=== PATIENT | male | born 1990 | race Caucasian/White ===

== ENCOUNTER 2017-12-28 12:10 | Emergency (ER) | payer OTHER, SELFPAY ==
[2017-12-28 12:24] VITALS: BP 177/136; PULSE 105; RESP 22; TEMP 35.9; O2SAT 100; BMI 19.3
--- NOTE | 2017-12-28 12:26 | ED.NAVMDI ---
HPI - Nausea/Vomiting/Diarrhea <DESIRE Nava - Last Filed: 12/28/17 21:44> General Chief complaint: Abdominal Pain Stated complaint: throwing up cant stop Time Seen by Provider: 12/28/17 12:25 Source: patient Mode of arrival: ambulatory Limitations: no limitations History of Present Illness HPI Narrative: 27-year-old male with history of type 1 diabetes and hypertension that is nonsmoker here for complaint of nausea vomiting that started yesterday. He also reports having generalized abdominal discomfort. He denies any urinary symptoms. He denies any fevers. Last bowel movement was earlier today. He reports that he has had emesis with coffee-grounds appearance. He has a history of having gastric and esophageal ulcers. He is prescribed Protonix however he states he has not been taking his Protonix. He has a history of having hypertension although he was taken off of his blood pressure medications because he states that it dropped his blood pressure to low. His primary care provider is [place] he is in the area visiting for 1 week. He denies any bloody stool. Pain is limited to the abdominal area. He denies any shortness of breath, chest pain no headaches. He does report having a sore throat. Related Data Home Medications Medication Instructions Recorded Confirmed insulin glargine [Lantus U-100 25 u SQ Q DAY #30 01/03/17 12/30/17 Insulin] Celexa DAILY 12/30/17 Vistaril PO PRN 12/30/17 amitriptyline PO BEDTIME 12/30/17 insulin aspart U-100 [Novolog 1 unit SUBCUT AC 12/30/17 12/30/17 Flexpen U-100 Insulin] metoclopramide HCl [Reglan] 10 mg PO QID 12/30/17 12/30/17 oxycodone-acetaminophen [Percocet] 1 tab PO Q6H PRN 12/30/17 12/30/17 Previous Rx's Medication Instructions Recorded pantoprazole [Protonix] 40 mg PO BID #60 01/06/17 Allergies Allergy/AdvReac Type Severity Reaction Status Date / Time aspirin [ASPIRIN] Allergy Unknown MAKES ME Verified 12/29/17 17:27 GO DEAF hydrocodone [HYDROCODONE] AdvReac Intermediate VOMITING Verified 12/29/17 17:27 ibuprofen [IBUPROFEN] AdvReac Intermediate HURTS Verified 12/29/17 17:27 KIDNEYS Review of Systems <Edgar LeeaustingaleDESIRE - Last Filed: 12/28/17 21:44> Constitutional Denies chills, Denies fever(s), Denies lethargy and Denies weakness Eyes Denies change in vision, Denies eye discharge, Denies irritation and Denies loss of vision ENT Ears, Nose, Mouth, and Throat: Reports sore throat Cardiovascular Denies chest pain, Denies irregular heart rhythm, Denies lightheadedness, Denies palpitations, Denies dyspnea, Denies dyspnea on exertion and Denies orthopnea Respiratory Denies cough, Denies dyspnea, Denies dyspnea on exertion and Denies wheezing Gastrointestinal Gastrointestinal: Reports abdominal pain, Reports nausea and Reports vomiting Genitourinary Denies hematuria, Denies flank pain, Denies urinary incontinence and Denies urinary urgency Integumentary/Breasts Denies pruritus, Denies erythema, Denies rash and Denies wounds Neurologic Denies loss of vision and Denies weakness Endocrine Denies palpitations Hematologic/Lymphatic Denies easy bruising Allergic/Immunologic Denies wheezing Exam <Edgar LeeDESIRE perez - Last Filed: 12/28/17 21:44> Initial Vital Signs Initial Vital Signs: Vital Signs Temperature 96.7 F L 12/28/17 12:24 Pulse Rate 105 H 12/28/17 12:24 Respiratory Rate 22 12/28/17 12:24 Blood Pressure 177/136 H 12/28/17 12:24 Pulse Oximetry 100 12/28/17 12:24 Const General: cooperative and well developed Nutritional Appearance: well nourished Orientation: alert, awake, oriented x3 and not confused [facility] Mouth: oral mucosae normal and moist mucous membranes Throat: posterior oropharynx normal Eyes Conjunctivae: conjunctivae normal Sclera: sclerae normal Pupils: PERRL EOM: EOM intact bilaterally Chest Chest: normal inspection of the chest Resp Effort & Inspection: normal respiratory effort, able to speak in complete sentences, no respiratory distress and no use of accessory muscles Auscultation: clear to auscultation bilaterally, no rales, no rhonchi and no wheezes Cardio Rate: regular rate Rhythm: regular rhythm Heart Sounds: no click, no gallops, no murmurs and no rubs GI Inspection: non-distended Palpation: soft, no hepatosplenomegaly, No guarding, No pulsatile mass and tender (Generalized tenderness) Auscultation: normal bowel sounds General: No CVA tenderness Skin General: no rashes or lesions noted, No jaundice and No petechiae Neuro General: alert, oriented x3, gait normal and no focal motor deficits Speech: speech normal Extrem General: full ROM, no clubbing, cyanosis or edema, no pedal edema and no calf tenderness Psych Appearance: well kempt Mental Status: mental status grossly normal Attitude: cooperative Thought Content: normal and suicidality Judgment: judgment good <Candie Cruz MD - Last Filed: 01/04/18 00:02> Initial Vital Signs Initial Vital Signs: Vital Signs Temperature 96.7 F L 12/28/17 12:24 Pulse Rate 105 H 12/28/17 12:24 Respiratory Rate 22 12/28/17 12:24 Blood Pressure 177/136 H 12/28/17 12:24 Pulse Oximetry 100 12/28/17 12:24 Course <DESIRE Nava - Last Filed: 12/28/17 21:44> Orders Ordered: Discontinued Medications Hydromorphone HCl (Dilaudid) 1 mg IV NOW ONE Stop: 12/28/17 12:55 Last Admin: 12/28/17 13:02 Dose: 1 mg Hydromorphone HCl (Dilaudid) 0.5 mg IV NOW ONE Stop: 12/28/17 15:02 Last Admin: 12/28/17 15:14 Dose: 0.5 mg Sodium Chloride (Normal Saline 0.9%) 1,000 mls @ 1,000 mls/hr IV BOLUS ONE Stop: 12/28/17 13:46 Last Infusion: 12/28/17 14:17 Dose: 0 mls/hr Infusion: 12/28/17 13:58 Dose: 1,000 mls/hr Infusion: 12/28/17 13:40 Dose: 0 mls/hr Admin: 12/28/17 13:02 Dose: 1,000 mls/hr Sodium Chloride (Normal Saline 0.9%) 1,000 mls @ 1,000 mls/hr IV BOLUS ONE Stop: 12/28/17 15:07 Last Infusion: 12/28/17 14:22 Dose: 0 mls/hr Admin: 12/28/17 14:14 Dose: 1,000 mls/hr Insulin Human Regular (Humulin R) 6 unit IV NOW ONE Stop: 12/28/17 13:35 Last Admin: 12/28/17 14:07 Dose: 6 unit Ondansetron HCl (Zofran) 4 mg IV NOW ONE Stop: 12/28/17 12:48 Last Admin: 12/28/17 13:02 Dose: 4 mg Ondansetron HCl (Zofran) 4 mg IV NOW ONE Stop: 12/28/17 14:09 Last Admin: 12/28/17 14:14 Dose: 4 mg Pantoprazole Sodium (Protonix) 20 mg IV NOW ONE Stop: 12/28/17 12:58 Last Admin: 12/28/17 13:02 Dose: 20 mg Vital Signs - 8 hr 12/28/17 14:30 12/28/17 15:31 12/28/17 16:01 Pulse Rate 105 H 97 H 98 H Respiratory Rate 10 L 12 12 Blood Pressure 113/82 Blood Pressure [Left Arm] 182/128 H 113/82 Pulse Oximetry 100 97 97 <Candie Cruz MD - Last Filed: 01/04/18 00:02> Orders Ordered: Discontinued Medications Hydromorphone HCl (Dilaudid) 1 mg IV NOW ONE Stop: 12/28/17 12:55 Last Admin: 12/28/17 13:02 Dose: 1 mg Hydromorphone HCl (Dilaudid) 0.5 mg IV NOW ONE Stop: 12/28/17 15:02 Last Admin: 12/28/17 15:14 Dose: 0.5 mg Sodium Chloride (Normal Saline 0.9%) 1,000 mls @ 1,000 mls/hr IV BOLUS ONE Stop: 12/28/17 13:46 Last Infusion: 12/28/17 14:17 Dose: 0 mls/hr Infusion: 12/28/17 13:58 Dose: 1,000 mls/hr Infusion: 12/28/17 13:40 Dose: 0 mls/hr Admin: 12/28/17 13:02 Dose: 1,000 mls/hr Sodium Chloride (Normal Saline 0.9%) 1,000 mls @ 1,000 mls/hr IV BOLUS ONE Stop: 12/28/17 15:07 Last Infusion: 12/28/17 14:22 Dose: 0 mls/hr Admin: 12/28/17 14:14 Dose: 1,000 mls/hr Insulin Human Regular (Humulin R) 6 unit IV NOW ONE Stop: 12/28/17 13:35 Last Admin: 12/28/17 14:07 Dose: 6 unit Ondansetron HCl (Zofran) 4 mg IV NOW ONE Stop: 12/28/17 12:48 Last Admin: 12/28/17 13:02 Dose: 4 mg Ondansetron HCl (Zofran) 4 mg IV NOW ONE Stop: 12/28/17 14:09 Last Admin: 12/28/17 14:14 Dose: 4 mg Pantoprazole Sodium (Protonix) 20 mg IV NOW ONE Stop: 12/28/17 12:58 Last Admin: 12/28/17 13:02 Dose: 20 mg Vital Signs - 8 hr 12/28/17 14:30 12/28/17 15:31 12/28/17 16:01 Pulse Rate 105 H 97 H 98 H Respiratory Rate 10 L 12 12 Blood Pressure 113/82 Blood Pressure [Left Arm] 182/128 H 113/82 Pulse Oximetry 100 97 97 MDM - Nausea/Vomiting/Diarrhea <DESIRE Nava - Last Filed: 12/28/17 21:44> Lab Data Result diagrams: 12/28/17 12:35 12/28/17 12:35 Lab Results 12/28/17 12/28/17 12/28/17 Range/Units 12:35 12:35 12:35 WBC 14.2 H (4.5-11.0) X10^3/uL RBC 5.33 (4.5-5.9) X10^6/uL Hgb 12.9 L (13.5-17.5) g/dL Hct 40.5 L (41-53) % MCV 75.9 L (80-100) fL MCH 24.2 L (26-34) PG MCHC 31.9 (30-36) % RDW 16.9 H (11.6-14.8) % Plt Count 315 (150-400) X10^3/uL Neut % (Auto) 85.9 H (50-75) % Lymph % (Auto) 9.8 L (25-40) % [place] % (Auto) 3.8 (3-14) % Eos % (Auto) 0.1 L (2-4) % Baso % (Auto) 0.4 (0-2) % Neut # (Auto) 52444 H (5805-5847) /uL PT 11.4 (10.1-12.7) SECONDS INR 1.0 (0.9-1.3) APTT 26 L (26.4-36.2) SECONDS ABG pH (7.35-7.45) ABG pCO2 (35-45) mmHg ABG pO2 (80-105) mmHg ABG HCO3 (23-27) mmol/L ABG Total CO2 (23-27) mmol/L ABG O2 Saturation (95-100) % ABG Base Excess (-2-3) mmol/L VBG pH (7.33-7.43) FiO2 Sodium 136 L (137-145) mmol/L Potassium 4.5 (3.4-5.1) mmol/L Chloride 96 L (98-107) mmol/L Carbon Dioxide 20 L (22-32) mmol/L BUN 16 (9-20) mg/dL Creatinine 0.90 (0.66-1.25) mg/dL Estimated GFR > 60.0 (>60) mL/min BUN/Creatinine Ratio 17.8 (6-22) Glucose 378 H (70-100) mg/dL Calcium 9.3 (8.4-10.2) mg/dL Total Bilirubin 0.9 (0.2-1.3) mg/dL AST 21 (17-59) IU/L ALT 26 (21-72) IU/L Alkaline Phosphatase 126 (38-126) U/L Total Protein 7.8 (6.3-8.2) g/dL Albumin 4.7 (3.5-5.0) g/dL Globulin 3.1 (1.7-4.1) g/dL Albumin/Globulin Ratio 1.5 (1.0-2.8) Blood Type Antibody Screen 12/28/17 12/28/17 12/29/17 Range/Units 12:35 14:00 19:20 WBC (4.5-11.0) X10^3/uL RBC (4.5-5.9) X10^6/uL Hgb (13.5-17.5) g/dL Hct (41-53) % MCV (80-100) fL MCH (26-34) PG MCHC (30-36) % RDW (11.6-14.8) % Plt Count (150-400) X10^3/uL Neut % (Auto) (50-75) % Lymph % (Auto) (25-40) % [place] % (Auto) (3-14) % Eos % (Auto) (2-4) % Baso % (Auto) (0-2) % Neut # (Auto) (7948-9669) /uL PT (10.1-12.7) SECONDS INR (0.9-1.3) APTT (26.4-36.2) SECONDS ABG pH 7.35 Cancelled (7.35-7.45) ABG pCO2 35.4 Cancelled (35-45) mmHg ABG pO2 167 H Cancelled (80-105) mmHg ABG HCO3 20 L Cancelled (23-27) mmol/L ABG Total CO2 21 L Cancelled (23-27) mmol/L ABG O2 Saturation 99 Cancelled (95-100) % ABG Base Excess -6.0 L Cancelled (-2-3) mmol/L VBG pH (7.33-7.43) FiO2 0.21 Cancelled Sodium (137-145) mmol/L Potassium (3.4-5.1) mmol/L Chloride (98-107) mmol/L Carbon Dioxide (22-32) mmol/L BUN (9-20) mg/dL Creatinine (0.66-1.25) mg/dL Estimated GFR (>60) mL/min BUN/Creatinine Ratio (6-22) Glucose (70-100) mg/dL Calcium (8.4-10.2) mg/dL Total Bilirubin (0.2-1.3) mg/dL AST (17-59) IU/L ALT (21-72) IU/L Alkaline Phosphatase (38-126) U/L Total Protein (6.3-8.2) g/dL Albumin (3.5-5.0) g/dL Globulin (1.7-4.1) g/dL Albumin/Globulin Ratio (1.0-2.8) Blood Type O Positive Antibody Screen Negative 12/29/17 Range/Units 19:20 WBC (4.5-11.0) X10^3/uL RBC (4.5-5.9) X10^6/uL Hgb (13.5-17.5) g/dL Hct (41-53) % MCV (80-100) fL MCH (26-34) PG MCHC (30-36) % RDW (11.6-14.8) % Plt Count (150-400) X10^3/uL Neut % (Auto) (50-75) % Lymph % (Auto) (25-40) % [place] % (Auto) (3-14) % Eos % (Auto) (2-4) % Baso % (Auto) (0-2) % Neut # (Auto) (6652-8100) /uL PT (10.1-12.7) SECONDS INR (0.9-1.3) APTT (26.4-36.2) SECONDS ABG pH (7.35-7.45) ABG pCO2 (35-45) mmHg ABG pO2 (80-105) mmHg ABG HCO3 (23-27) mmol/L ABG Total CO2 (23-27) mmol/L ABG O2 Saturation (95-100) % ABG Base Excess (-2-3) mmol/L VBG pH 7.24 L (7.33-7.43) FiO2 Sodium (137-145) mmol/L Potassium (3.4-5.1) mmol/L Chloride (98-107) mmol/L Carbon Dioxide (22-32) mmol/L BUN (9-20) mg/dL Creatinine (0.66-1.25) mg/dL Estimated GFR (>60) mL/min BUN/Creatinine Ratio (6-22) Glucose (70-100) mg/dL Calcium (8.4-10.2) mg/dL Total Bilirubin (0.2-1.3) mg/dL AST (17-59) IU/L ALT (21-72) IU/L Alkaline Phosphatase (38-126) U/L Total Protein (6.3-8.2) g/dL Albumin (3.5-5.0) g/dL Globulin (1.7-4.1) g/dL Albumin/Globulin Ratio (1.0-2.8) Blood Type Antibody Screen Point of Care Testing Glucose POC 280 Urine Dip Bedside Urine Glucose 1000 mg/dl Bedside Urine Bilirubin - Negative Bedside Urine Ketone +++ 80 Urine Specific [place] 1.015 Bedside Urine Occult Blood + Bedside Urine pH 6.5 Bedside Urine Protein - Negative Bedside Urine Urobilinogen - Negative Bedside Urine Nitrite - Negative Bedside Urine Leukocytes - Negative Esterase Imaging Data CT scan - abdomen: Radiologist's impression: [address] [address] [address] Scan Report Signed Patient: Valentin Noble JMR#: [id number] : 1990Acct:[id number] Age/Sex: 27 / MDate of Service: 12/28/17 Loc: ED Accession Number: [id number] Procedure: CT abdomen pelvis w con Ordering Provider: Edgar Martinez PROCEDURE: CT ABDOMEN PELVIS W CON INDICATIONS: Bilateral lower abdominal pain with nausea vomiting TECHNIQUE: After the administration of intravenous contrast, 5 mm thick sections acquired from the diaphragm to the symphysis. 5 mm coronal and sagittal reformats were acquired. For radiation dose reduction, the following was used: automated exposure control, adjustment of mA and/or kV according to patient size. COMPARISON: None. FINDINGS: Image quality: Excellent. ABDOMEN: Lung bases: Lung bases are clear. Heart size is normal. The distal esophagus appears concentrically thickened but only a very short portion of this structure is included on the study. Solid organs: Liver is normal in size and enhancement. Gallbladder appears normal. Biliary system is non dilated. Pancreas enhances normally. Spleen is normal in size and enhancement. No adrenal nodules. Kidneys demonstrate normal size and enhancement, without hydronephrosis. Peritoneum and bowel: Bowel loops demonstrate normal wall thickness and caliber. No free fluid or air. Nodes and vessels: No retroperitoneal or mesenteric adenopathy by size criteria. Aorta and inferior vena cava are normal in size. Miscellaneous: No ventral hernias. PELVIS: Genitourinary: Bladder wall thickness is normal. Miscellaneous: No inguinal hernias or adenopathy. A normal appendix is found at the right lower quadrant. Bones: No suspicious bony lesions. No vertebral body compression fractures. IMPRESSION: Normal appendix found, no sign of diverticulitis or cholecystitis, or biliary obstruction. No urinary tract abnormality is seen and no intestinal obstruction or perforation is suspected. Note is made of mural thickening of the distal esophagus, only the lowest portion of which is included on this study. The thickness measures up to 1.4 cm along the wall, but such an appearance can be produced by hiatal hernia. Followup clinical correlation is recommended to determine whether subsequent elective esophagram or endoscopy is warranted. Dictated by: Vinod Seals M.D. on 12/28/2017 at 13:53 Approved by: Vinod Seals M.D. on 12/28/2017 at 13:56 ECG Data Interpretation: EKG shows sinus bradycardia. Ventricular rate of 110. Pr interval of 190. QRS duration of 81. QT 324. MDM Narrative Medical decision making narrative: CT scan of the abdomen was obtained and shows some thickening of the distal esophagus. CBC shows elevated white count of 14.2 and elevated neutrophils. No bands. blood sugar was elevated at 378. ABG was obtained and shows mild metabolic acidosis that his compensated. DKA is not appreciated at this time. He was given fluids along with insulin and Zofran with pain medications. He still had nausea however his vomiting has been reduced. Suspect coffee-ground emesis is due to his gastric and esophageal ulcers. He states he has not been taking his Protonix as prescribed. He did not bring his Protonix with him from [place]. His pain was limited to a generalized abdominal pain and throat pain. Suspect throat pain is most likely due to nausea vomiting. He denies headache or chest pain at this time. EKG was obtained and shows sinus tachycardia with no ST elevation or depression. No ectopy. Urinalysis was negative for urinary tract infection. Signs and symptoms presents as a viral illness. He is prescribed Zofran for the nausea vomiting. Tylenol as needed for fever or discomfort. He is given a prescription for Percocet for breakthrough pain. Recommend that he follow up with primary care provider next week for re-evaluation. Recommend that he obtain endoscopy for further evaluation and treatment for his hypertension as his blood pressure was elevated today. Do not have any signs of organ damage. For any worsening symptoms return to the emergency room. <Candie Cruz MD - Last Filed: 01/04/18 00:02> Lab Data Lab Results 12/28/17 12/28/17 12/28/17 Range/Units 12:35 12:35 12:35 WBC 14.2 H (4.5-11.0) X10^3/uL RBC 5.33 (4.5-5.9) X10^6/uL Hgb 12.9 L (13.5-17.5) g/dL Hct 40.5 L (41-53) % MCV 75.9 L (80-100) fL MCH 24.2 L (26-34) PG MCHC 31.9 (30-36) % RDW 16.9 H (11.6-14.8) % Plt Count 315 (150-400) X10^3/uL Neut % (Auto) 85.9 H (50-75) % Lymph % (Auto) 9.8 L (25-40) % [place] % (Auto) 3.8 (3-14) % Eos % (Auto) 0.1 L (2-4) % Baso % (Auto) 0.4 (0-2) % Neut # (Auto) 53229 H (5963-3418) /uL PT 11.4 (10.1-12.7) SECONDS INR 1.0 (0.9-1.3) APTT 26 L (26.4-36.2) SECONDS ABG pH (7.35-7.45) ABG pCO2 (35-45) mmHg ABG pO2 (80-105) mmHg ABG HCO3 (23-27) mmol/L ABG Total CO2 (23-27) mmol/L ABG O2 Saturation (95-100) % ABG Base Excess (-2-3) mmol/L VBG pH (7.33-7.43) FiO2 Sodium 136 L (137-145) mmol/L Potassium 4.5 (3.4-5.1) mmol/L Chloride 96 L (98-107) mmol/L Carbon Dioxide 20 L (22-32) mmol/L BUN 16 (9-20) mg/dL Creatinine 0.90 (0.66-1.25) mg/dL Estimated GFR > 60.0 (>60) mL/min BUN/Creatinine Ratio 17.8 (6-22) Glucose 378 H (70-100) mg/dL Calcium 9.3 (8.4-10.2) mg/dL Total Bilirubin 0.9 (0.2-1.3) mg/dL AST 21 (17-59) IU/L ALT 26 (21-72) IU/L Alkaline Phosphatase 126 (38-126) U/L Total Protein 7.8 (6.3-8.2) g/dL Albumin 4.7 (3.5-5.0) g/dL Globulin 3.1 (1.7-4.1) g/dL Albumin/Globulin Ratio 1.5 (1.0-2.8) Blood Type Antibody Screen 12/28/17 12/28/17 12/29/17 Range/Units 12:35 14:00 19:20 WBC (4.5-11.0) X10^3/uL RBC (4.5-5.9) X10^6/uL Hgb (13.5-17.5) g/dL Hct (41-53) % MCV (80-100) fL MCH (26-34) PG MCHC (30-36) % RDW (11.6-14.8) % Plt Count (150-400) X10^3/uL Neut % (Auto) (50-75) % Lymph % (Auto) (25-40) % [place] % (Auto) (3-14) % Eos % (Auto) (2-4) % Baso % (Auto) (0-2) % Neut # (Auto) (2261-4276) /uL PT (10.1-12.7) SECONDS INR (0.9-1.3) APTT (26.4-36.2) SECONDS ABG pH 7.35 Cancelled (7.35-7.45) ABG pCO2 35.4 Cancelled (35-45) mmHg ABG pO2 167 H Cancelled (80-105) mmHg ABG HCO3 20 L Cancelled (23-27) mmol/L ABG Total CO2 21 L Cancelled (23-27) mmol/L ABG O2 Saturation 99 Cancelled (95-100) % ABG Base Excess -6.0 L Cancelled (-2-3) mmol/L VBG pH (7.33-7.43) FiO2 0.21 Cancelled Sodium (137-145) mmol/L Potassium (3.4-5.1) mmol/L Chloride (98-107) mmol/L Carbon Dioxide (22-32) mmol/L BUN (9-20) mg/dL Creatinine (0.66-1.25) mg/dL Estimated GFR (>60) mL/min BUN/Creatinine Ratio (6-22) Glucose (70-100) mg/dL Calcium (8.4-10.2) mg/dL Total Bilirubin (0.2-1.3) mg/dL AST (17-59) IU/L ALT (21-72) IU/L Alkaline Phosphatase (38-126) U/L Total Protein (6.3-8.2) g/dL Albumin (3.5-5.0) g/dL Globulin (1.7-4.1) g/dL Albumin/Globulin Ratio (1.0-2.8) Blood Type O Positive Antibody Screen Negative 12/29/17 Range/Units 19:20 WBC (4.5-11.0) X10^3/uL RBC (4.5-5.9) X10^6/uL Hgb (13.5-17.5) g/dL Hct (41-53) % MCV (80-100) fL MCH (26-34) PG MCHC (30-36) % RDW (11.6-14.8) % Plt Count (150-400) X10^3/uL Neut % (Auto) (50-75) % Lymph % (Auto) (25-40) % [place] % (Auto) (3-14) % Eos % (Auto) (2-4) % Baso % (Auto) (0-2) % Neut # (Auto) (9959-6850) /uL PT (10.1-12.7) SECONDS INR (0.9-1.3) APTT (26.4-36.2) SECONDS ABG pH (7.35-7.45) ABG pCO2 (35-45) mmHg ABG pO2 (80-105) mmHg ABG HCO3 (23-27) mmol/L ABG Total CO2 (23-27) mmol/L ABG O2 Saturation (95-100) % ABG Base Excess (-2-3) mmol/L VBG pH 7.24 L (7.33-7.43) FiO2 Sodium (137-145) mmol/L Potassium (3.4-5.1) mmol/L Chloride (98-107) mmol/L Carbon Dioxide (22-32) mmol/L BUN (9-20) mg/dL Creatinine (0.66-1.25) mg/dL Estimated GFR (>60) mL/min BUN/Creatinine Ratio (6-22) Glucose (70-100) mg/dL Calcium (8.4-10.2) mg/dL Total Bilirubin (0.2-1.3) mg/dL AST (17-59) IU/L ALT (21-72) IU/L Alkaline Phosphatase (38-126) U/L Total Protein (6.3-8.2) g/dL Albumin (3.5-5.0) g/dL Globulin (1.7-4.1) g/dL Albumin/Globulin Ratio (1.0-2.8) Blood Type Antibody Screen Point of Care Testing Glucose POC 280 Urine Dip Bedside Urine Glucose 1000 mg/dl Bedside Urine Bilirubin - Negative Bedside Urine Ketone +++ 80 Urine Specific [place] 1.015 Bedside Urine Occult Blood + Bedside Urine pH 6.5 Bedside Urine Protein - Negative Bedside Urine Urobilinogen - Negative Bedside Urine Nitrite - Negative Bedside Urine Leukocytes - Negative Esterase Discharge Plan Departure Patient Disposition: Home Clinical Impression: Nausea & vomiting Discharge Date/Time: 12/28/17 16:02 Interventions: ED Discharge Assessment Last Done: 12/28/17 16:01 Instructions: DI for Viral Gastroenteritis -- Adult Activity Restrictions/Additional Instructions: Due to generalized abdominal pain CT of the abdomen was obtained and shows that there is some thickening of the esophageal wall otherwise CT was negative for any acute findings. Laboratory results indicate elevated white count and neutrophils. Illness presents as a viral illness. Use Zofran as prescribed to help with the nausea vomiting. Believe the coffee-ground look to your emesis is most likely secondary to your gastric ulcers and esophageal ulcers. Recommend a endoscopy for further evaluation when you return home. Blood pressure was elevated today in the emergency room. Recommend monitoring her blood pressures and following up with her primary care provider when he returns home for discussion of returning to treatment for your high blood pressure. Use [id number] Tylenol as needed for any discomfort. Plenty of fluids. Small amount of Percocet as prescribed for breakthrough pain use as directed. Small amount of Protonix is prescribed for this week so that he can take it up here before getting back home and taking her normal prescription. For any worsening symptoms return to the emergency room. Prescriptions: No Action insulin glargine [Lantus U-100 Insulin] 100 UNIT/1 ML solution 25 u SQ Q DAY Qty: 30 RF: 0 pantoprazole [Protonix] 40 MG tablet,delayed release (DR/EC) 40 mg PO BID Qty: 60 RF: 0 oxycodone-acetaminophen [Percocet] 5-325 mg Tablet 1 tab PO Q6H PRN (Reason: pain) RF: 0 metoclopramide HCl [Reglan] 10 mg Tablet 10 mg PO QID RF: 0 Celexa DAILY RF: 0 Vistaril PO PRN (Reason: Anxiety) RF: 0 amitriptyline PO BEDTIME RF: 0 insulin aspart U-100 [Novolog Flexpen U-100 Insulin] 100 unit/mL Insulin Pen 1 unit subcut AC RF: 0 Referrals: [facility] [Provider Group]
[2017-12-28 13:00] VITALS: BP 162/116; PULSE 112; RESP 21
[2017-12-28] MEDS: PANTOPRAZOLE 40 MG VIAL 20 MG IV (13:02)
[2017-12-28] MEDS: HYDROMORPHONE 1 MG INJ IV (13:02)
[2017-12-28] MEDS: ONDANSETRON 4 MG/2 ML INJ IV ×2 (13:02→14:14)
[2017-12-28] MEDS: SODIUM CHLORIDE 0.9% 1,000 ML 1000 ML IV ×2 (13:02→14:14)
[2017-12-28 13:05] LABS: Add Manual Diff / Slide Review NO; Basophils Percent Auto 0.4 % (0-2); Eosinophils Percent Auto 0.1 % (2-4); Hematocrit 40.5 % (41-53); Hemoglobin 12.9 g/dL (13.5-17.5); Lymphocytes Percent Auto 9.8 % (25-40); Mean Corpuscular HGB Conc 31.9 % (30-36); Mean Corpuscular Hemoglobin 24.2 PG (26-34); Mean Corpuscular Volume 75.9 fL (80-100); Monocytes Percent Auto 3.8 % (3-14); Neutrophils Absolute Auto 12200 /uL (3000-5900); Neutrophils Percent Auto 85.9 % (50-75); Platelet Count 315 X10^3/uL (150-400); Red Blood Cell Count 5.33 X10^6/uL (4.5-5.9); Red Cell Distribution Width 16.9 % (11.6-14.8); White Blood Cell Count 14.2 X10^3/uL (4.5-11.0)
[2017-12-28 13:08] LABS: Prothrombin Time 11.4 SECONDS (10.1-12.7)
[2017-12-28 13:11] LABS: PTT Partial Thromboplastin Tim 26 SECONDS (26.4-36.2)
[2017-12-28 13:20] LABS: Alanine Aminotransferase 26 IU/L (21-72); Albumin 4.7 g/dL (3.5-5.0); Albumin Globulin Ratio 1.5 (1.0-2.8); Alkaline Phosphatase 126 U/L (38-126); Aspartate Aminotransferase 21 IU/L (17-59); BUN Creatinine Ratio 17.8 (6-22); Bilirubin Total 0.9 mg/dL (0.2-1.3); Blood Urea Nitrogen 16 mg/dL (9-20); Calcium 9.3 mg/dL (8.4-10.2); Carbon Dioxide 20 mmol/L (22-32); Chloride 96 mmol/L (98-107); Estimated Glomerular Filt Rate > 60.0 mL/min (>60); Globulin 3.1 g/dL (1.7-4.1); Glucose 378 mg/dL (70-100); HEMOLYSIS < 15 (0-50); Potassium 4.5 mmol/L (3.4-5.1); Sodium 136 mmol/L (137-145); Total Protein 7.8 g/dL (6.3-8.2)
[2017-12-28 13:30] VITALS: BP 130/91; PULSE 101; RESP 11; O2SAT 100
--- NOTE | 2017-12-28 13:36 | DI.CT.S_ITS ---
PROCEDURE: CT ABDOMEN PELVIS W CON INDICATIONS: Bilateral lower abdominal pain with nausea vomiting TECHNIQUE: After the administration of intravenous contrast, 5 mm thick sections acquired from the diaphragm to the symphysis. 5 mm coronal and sagittal reformats were acquired. For radiation dose reduction, the following was used: automated exposure control, adjustment of mA and/or kV according to patient size. COMPARISON: None. FINDINGS: Image quality: Excellent. ABDOMEN: Lung bases: Lung bases are clear. Heart size is normal. The distal esophagus appears concentrically thickened but only a very short portion of this structure is included on the study. Solid organs: Liver is normal in size and enhancement. Gallbladder appears normal. Biliary system is non dilated. Pancreas enhances normally. Spleen is normal in size and enhancement. No adrenal nodules. Kidneys demonstrate normal size and enhancement, without hydronephrosis. Peritoneum and bowel: Bowel loops demonstrate normal wall thickness and caliber. No free fluid or air. Nodes and vessels: No retroperitoneal or mesenteric adenopathy by size criteria. Aorta and inferior vena cava are normal in size. Miscellaneous: No ventral hernias. PELVIS: Genitourinary: Bladder wall thickness is normal. Miscellaneous: No inguinal hernias or adenopathy. A normal appendix is found at the right lower quadrant. Bones: No suspicious bony lesions. No vertebral body compression fractures. IMPRESSION: Normal appendix found, no sign of diverticulitis or cholecystitis, or biliary obstruction. No urinary tract abnormality is seen and no intestinal obstruction or perforation is suspected. Note is made of mural thickening of the distal esophagus, only the lowest portion of which is included on this study. The thickness measures up to 1.4 cm along the wall, but such an appearance can be produced by hiatal hernia. Followup clinical correlation is recommended to determine whether subsequent elective esophagram or endoscopy is warranted. Dictated by: Vinod Seals M.D. on 12/28/2017 at 13:53 Approved by: Vinod Seals M.D. on 12/28/2017 at 13:56
[2017-12-28] MEDS: INSULIN REGULAR 100 UNIT/ML 3 ML VIAL 6 UNIT IV (14:07)
[2017-12-28 14:09] LABS: HCO3 ABG 20 mmol/L (23-27); PCO2 ABG 35.4 mmHg (35-45); PO2 ABG 167 mmHg (80-105); TCO2 ABG 21 mmol/L (23-27); pH ABG 7.35 (7.35-7.45)
[2017-12-28 14:10] LABS: Fractionated Inspired Oxygen 0.21; Oxygen Saturation ABG 99 % (95-100)
[2017-12-28 14:30] VITALS: BP 182/128; PULSE 105; RESP 10; O2SAT 100
[2017-12-28] MEDS: HYDROMORPHONE 1 MG INJ 0.5 MG IV (15:14)
[2017-12-28 15:31] VITALS: BP 113/82; PULSE 97; RESP 12; O2SAT 97
[2017-12-28 16:01] VITALS: BP 113/82; PULSE 98; RESP 12; O2SAT 97
[2018-01-03 10:00] LABS: pH VBG 7.24 (7.33-7.43)
== END 2017-12-28 16:02 | disposition home or self-care (01) ==
PROVIDERS: Emergency Medicine; Emergency Provider Nurse Practitioner Family
DX: R11.2 Nausea with vomiting, unspecified (principal); R10.9 Unspecified abdominal pain
CPT/HCPCS: 36591; 36600; 74177; 80053; 81003; 82805; 82962; 83986; 85025; 85610; 85730; 86850; 86900; 86901; 93005; 96361; 96374; 96375; 96376; 99284; 99285; C9113; J1170; J2405; Q9967

== ENCOUNTER 2017-12-29 17:20 | Inpatient (IN) | payer OTHER, SELFPAY ==
[2017-12-29] VITALS (7 sets, daily range): BP systolic 119–166; BP diastolic 80–116; PULSE 108–116; RESP 13–20; TEMP 36.6–37.1; O2SAT 98–100
[2017-12-29] MEDS: PANTOPRAZOLE 80 MG in SODIUM CHLORIDE 0.9% 100 ML 300 ML IV (18:23)
[2017-12-29 18:36] LABS: Add Manual Diff / Slide Review NO; Basophils Percent Auto 0.7 % (0-2); Hematocrit 40.4 % (41-53); Hemoglobin 12.6 g/dL (13.5-17.5); Mean Corpuscular HGB Conc 31.3 % (30-36); Mean Corpuscular Hemoglobin 24.3 PG (26-34); Mean Corpuscular Volume 77.9 fL (80-100); Monocytes Percent Auto 3.3 % (3-14); Neutrophils Absolute Auto 11600 /uL (3000-5900); Platelet Count 333 X10^3/uL (150-400); Red Blood Cell Count 5.19 X10^6/uL (4.5-5.9); Red Cell Distribution Width 16.6 % (11.6-14.8); White Blood Cell Count 13.3 X10^3/uL (4.5-11.0)
[2017-12-29 18:39] LABS: HEMOLYSIS < 15 (0-50)
[2017-12-29 18:41] LABS: INR 0.9 (0.9-1.3); Prothrombin Time 9.6 SECONDS (10.1-12.7)
[2017-12-29 18:43] LABS: PTT Partial Thromboplastin Tim 23 SECONDS (26.4-36.2)
[2017-12-29 18:45] LABS: Alanine Aminotransferase 22 IU/L (21-72); Albumin 5.1 g/dL (3.5-5.0); Albumin Globulin Ratio 1.5 (1.0-2.8); Alkaline Phosphatase 134 U/L (38-126); Aspartate Aminotransferase 24 IU/L (17-59); Bilirubin Total 0.8 mg/dL (0.2-1.3); Blood Urea Nitrogen 16 mg/dL (9-20); Calcium 9.2 mg/dL (8.4-10.2); Carbon Dioxide 12 mmol/L (22-32); Chloride 98 mmol/L (98-107); Estimated Glomerular Filt Rate > 60.0 mL/min (>60); Globulin 3.4 g/dL (1.7-4.1); Glucose 406 mg/dL (70-100); Lactate (Lactic Acid) 2.8 mmol/L (0.7-2.1); Lipase 31 U/L (23-300); Potassium 5.2 mmol/L (3.4-5.1); Sodium 138 mmol/L (137-145); Total Protein 8.5 g/dL (6.3-8.2)
[2017-12-29 19:06] LABS: Ketones (Beta-Hydroxybutyrate) 8.73 mmol/L (<0.27)
[2017-12-29] MEDS: SODIUM CHLORIDE 0.9% 1,000 ML 1000 ML IV (19:06)
--- NOTE | 2017-12-29 19:18 | ED_ITS ---
HPI - Abdominal Pain General Chief Complaint: Abdominal Pain Stated Complaint: VOMITING BLOOD Time Seen by Provider: 12/29/17 17:27 Source: patient Mode of arrival: ambulatory Limitations: no limitations History of Present Illness HPI narrative: 27-year-old male with a history of type 1 diabetes never smoker presents to the emergency department for the 2nd time in 2 days and chief complaint of upper abdominal pain with persistent nausea and vomiting. Symptoms started last night at midnight and he denies any obvious precipitating factors such as other illness, exposure to ill persons, change in diabetic regimen or exposure to bad food. He does state that he has not taken his insulin for the past day or 2 because he has been vomiting so much. Additionally today after multiple episodes of vomiting he admits to small amounts of blood streaking. He is fatigued and has become dizzy, weak and lightheaded. MD complaint: abdominal pain Onset (ago): hour(s) Pain Consistency: constant Location: diffuse Severity: moderate Quality: cramping Radiation: none Migration to: no migration Relieving factors: nothing Exacerbating factors: nothing Associated symptoms: nausea, vomiting and chills Related Data Home Medications Medication Instructions Recorded Confirmed insulin lispro [Humalog U-100 0 u SQ SEE INSTRUCTIONS #0 01/05/16 Insulin] insulin glargine [Lantus U-100 25 u SQ Q DAY #30 01/03/17 Insulin] Previous Rx's Medication Instructions Recorded pantoprazole [Protonix] 40 mg PO BID #60 01/06/17 ondansetron 4 mg PO Q6-8H PRN #14 tab 12/28/17 oxycodone-acetaminophen [Percocet] 1 tab PO Q4-6H PRN #15 tab 12/28/17 Allergies Allergy/AdvReac Type Severity Reaction Status Date / Time aspirin [ASPIRIN] Allergy Unknown MAKES ME Verified 12/29/17 17:27 GO DEAF hydrocodone [HYDROCODONE] AdvReac Intermediate VOMITING Verified 12/29/17 17:27 ibuprofen [IBUPROFEN] AdvReac Intermediate HURTS Verified 12/29/17 17:27 KIDNEYS Review of Systems Review of Systems All systems reviewed & are unremarkable except as noted in HPI and below Constitutional Reports chills, Reports fatigue, Denies fever(s), Denies lethargy, Reports poor appetite and Reports weakness Eyes Denies change in vision, Denies eye discharge, Denies irritation and Denies loss of vision ENT Ears, Nose, Mouth, and Throat: Denies change in voice, Denies neck pain and Denies sore throat Cardiovascular Denies chest pain, Denies irregular heart rhythm, Denies lightheadedness, Denies palpitations, Denies dyspnea, Denies dyspnea on exertion and Denies orthopnea Respiratory Denies cough, Denies dyspnea, Denies dyspnea on exertion and Denies wheezing Gastrointestinal Gastrointestinal: Reports abdominal pain, Denies change in bowel habits, Denies diarrhea, Reports nausea and Reports vomiting Genitourinary Denies hematuria, Denies flank pain, Denies urinary incontinence and Denies urinary urgency Musculoskeletal Denies neck pain Integumentary/Breasts Denies pruritus, Denies erythema, Denies rash and Denies wounds Neurologic Denies confusion, Denies loss of vision and Reports weakness Psychiatric Denies anxiety, Denies confusion, Denies depression, Denies homicidal ideation and Denies suicidal ideation Endocrine Reports fatigue and Denies palpitations Hematologic/Lymphatic Denies easy bruising Allergic/Immunologic Denies wheezing [facility] Medical History Diabetes (Acute) Social History Smoking Status: Never smoker Exam Narrative Exam Narrative: Ill-appearing 27-year-old male, wrapped up in a blanket laying on his side Initial Vital Signs Initial Vital Signs: Vital Signs Pulse Rate 113 H 12/29/17 17:27 Respiratory Rate 20 12/29/17 17:27 Blood Pressure 154/116 H 12/29/17 17:27 Pulse Oximetry 98 12/29/17 17:27 Const General: cooperative, well developed and in distress Nutritional Appearance: thin Orientation: alert, awake, oriented x3 and not confused [facility] Head: normocephalic and atraumatic Ears: external ears normal and TM's normal bilaterally Nose: external nose normal and No nasal discharge Face and sinus: sinuses nontender, face symmetric, no sinus tenderness and No dry mucous membranes Mouth: oral mucosae normal and moist mucous membranes Teeth and gingiva: dentition normal Throat: tonsils normal and uvula midline Chest Chest: normal inspection of the chest Cardio Rate: regular rate Rhythm: regular rhythm Heart Sounds: no click, no gallops, no murmurs and no rubs Pulses: normal peripheral pulses GI Inspection: non-distended Palpation: soft, no hepatosplenomegaly, No guarding, No pulsatile mass and tender Auscultation: normal bowel sounds Back/Spine/Pelvis Back: No CVA tenderness Cervical Spine: cervical ROM normal and No pain with cervical ROM Thoracic/Lumbar Spine: thoracic and lumbar spine normal to inspection Skin General: no rashes or lesions noted, No jaundice and No petechiae Extrem General: full ROM, no clubbing, cyanosis or edema, no pedal edema and no calf tenderness Course Orders Ordered: ED Orders 12/29/17 17:37 Urinalysis and Microscopic Stat 12/29/17 18:12 Beta- Hydroxybutyrate Stat Complete Blood Count AUTO DIFF Stat Comprehensive Metabolic Panel Stat Ketones (Beta-Hydroxybutyrate) Stat Lactate (Lactic Acid) Stat Lipase Stat Partial Thromboplastin Time Stat Prothrombin Time INR Stat Type and Screen Stat 12/29/17 18:38 Venous Blood Gas Stat 12/29/17 20:30 UA Complete [Urinalysis and Microscopic] Stat 12/30/17 Hemoglobin A1C % Routine Dextrose (D50w) 25 gm IV PRN PRN PRN Reason: Hypoglycemia Insulin Human Regular 100 unit (/ Sodium Chloride) 100 mls @ 6 mls/hr IV TITRATE XENA; Protocol Last Titration: 12/29/17 20:08 Dose: 6 units/hr, 6 mls/hr Admin: 12/29/17 19:38 Dose: 6 units/hr, 6 mls/hr Dextrose/Sodium Chloride (Dextrose 5%-0.45% Ns) 1,000 mls @ 100 mls/hr IV CONT XENA Insulin Human Regular 100 unit (/ Sodium Chloride) 100 mls @ 6 mls/hr IV TITRATE XENA; Protocol Sodium Chloride (Normal Saline 0.45%) 1,000 mls @ 150 mls/hr IV CONT XENA Sodium Chloride (Normal Saline 0.9%) 1,000 mls @ 500 mls/hr IV CONT XENA Stop: 01/28/18 22:14 Morphine Sulfate (Morphine) 2 mg IV Q3H PRN PRN Reason: Pain, Moderate (4-6) Stop: 12/30/17 23:59 Ondansetron HCl (Zofran) 4 mg IV Q4HR PRN PRN Reason: Nausea And Vomiting Discontinued Medications Pantoprazole Sodium 80 mg/ (Sodium Chloride) 100 mls @ 300 mls/hr IV NOW ONE Stop: 12/29/17 17:57 Last Infusion: 12/29/17 18:48 Dose: 0 mls/hr Admin: 12/29/17 18:23 Dose: 300 mls/hr Sodium Chloride (Normal Saline 0.9%) 1,000 mls @ 1,000 mls/hr IV BOLUS ONE Stop: 12/29/17 20:03 Last Infusion: 12/29/17 20:08 Dose: 1,000 mls/hr Admin: 12/29/17 19:06 Dose: 1,000 mls/hr Metoclopramide HCl (Reglan) 10 mg IV NOW ONE Stop: 12/29/17 19:20 Last Admin: 12/29/17 19:50 Dose: 10 mg Vital Signs - 8 hr 12/29/17 17:27 12/29/17 17:34 12/29/17 18:27 Temperature 97.9 F Pulse Rate 113 H 116 H Respiratory Rate 20 17 Blood Pressure 154/116 H Blood Pressure [Left Arm] 157/94 H Pulse Oximetry 98 100 12/29/17 18:30 12/29/17 19:00 12/29/17 20:11 Temperature Pulse Rate 115 H 108 H 114 H Respiratory Rate 18 18 19 Blood Pressure 166/101 H Blood Pressure [Left Arm] 158/104 H 127/87 Pulse Oximetry 98 100 100 MDM - Abdominal Pain Differential Diagnosis Differential diagnosis: Likely abdominal pain, constipation, gastroenteritis, pancreatitis and small bowel obstruction Medical Records Attestation: I reviewed the patient's medical records. Lab Data Attestation: I reviewed the patient's lab results. Result diagrams: 12/29/17 18:12 12/29/17 18:12 Lab Results 12/29/17 12/29/17 12/29/17 Range/Units 18:12 18:12 18:12 WBC 13.3 H (4.5-11.0) X10^3/uL RBC 5.19 (4.5-5.9) X10^6/uL Hgb 12.6 L (13.5-17.5) g/dL Hct 40.4 L (41-53) % MCV 77.9 L (80-100) fL MCH 24.3 L (26-34) PG MCHC 31.3 (30-36) % RDW 16.6 H (11.6-14.8) % Plt Count 333 (150-400) X10^3/uL Neut % (Auto) 87.0 H (50-75) % Lymph % (Auto) 9.0 L (25-40) % [place] % (Auto) 3.3 (3-14) % Eos % (Auto) 0.0 L (2-4) % Baso % (Auto) 0.7 (0-2) % Neut # (Auto) 37391 H (8794-3206) /uL PT 9.6 L (10.1-12.7) SECONDS INR 0.9 (0.9-1.3) APTT 23 L D (26.4-36.2) SECONDS Sodium 138 (137-145) mmol/L Potassium 5.2 H (3.4-5.1) mmol/L Chloride 98 (98-107) mmol/L Carbon Dioxide 12 L (22-32) mmol/L BUN 16 (9-20) mg/dL Creatinine 1.00 (0.66-1.25) mg/dL Estimated GFR > 60.0 (>60) mL/min BUN/Creatinine Ratio 16.0 (6-22) Glucose 406 H (70-100) mg/dL Lactate (0.7-2.1) mmol/L Calcium 9.2 (8.4-10.2) mg/dL Total Bilirubin 0.8 (0.2-1.3) mg/dL AST 24 (17-59) IU/L ALT 22 (21-72) IU/L Alkaline Phosphatase 134 H (38-126) U/L Total Protein 8.5 H (6.3-8.2) g/dL Albumin 5.1 H (3.5-5.0) g/dL Globulin 3.4 (1.7-4.1) g/dL Albumin/Globulin Ratio 1.5 (1.0-2.8) Lipase 31 (23-300) U/L Ketones 8.73 H (<0.27) mmol/L Blood Type Antibody Screen 12/29/17 12/29/17 Range/Units 18:12 18:12 WBC (4.5-11.0) X10^3/uL RBC (4.5-5.9) X10^6/uL Hgb (13.5-17.5) g/dL Hct (41-53) % MCV (80-100) fL MCH (26-34) PG MCHC (30-36) % RDW (11.6-14.8) % Plt Count (150-400) X10^3/uL Neut % (Auto) (50-75) % Lymph % (Auto) (25-40) % [place] % (Auto) (3-14) % Eos % (Auto) (2-4) % Baso % (Auto) (0-2) % Neut # (Auto) (1676-1366) /uL PT (10.1-12.7) SECONDS INR (0.9-1.3) APTT (26.4-36.2) SECONDS Sodium (137-145) mmol/L Potassium (3.4-5.1) mmol/L Chloride (98-107) mmol/L Carbon Dioxide (22-32) mmol/L BUN (9-20) mg/dL Creatinine (0.66-1.25) mg/dL Estimated GFR (>60) mL/min BUN/Creatinine Ratio (6-22) Glucose (70-100) mg/dL Lactate 2.8 H (0.7-2.1) mmol/L Calcium (8.4-10.2) mg/dL Total Bilirubin (0.2-1.3) mg/dL AST (17-59) IU/L ALT (21-72) IU/L Alkaline Phosphatase (38-126) U/L Total Protein (6.3-8.2) g/dL Albumin (3.5-5.0) g/dL Globulin (1.7-4.1) g/dL Albumin/Globulin Ratio (1.0-2.8) Lipase (23-300) U/L Ketones (<0.27) mmol/L Blood Type O Positive Antibody Screen Negative Point of care testing: Point of Care Testing Glucose POC 307 MDM Narrative Medical decision making narrative: Main concerns for DKA given nausea, vomiting abdominal pain lack of access to insulin, elevated ketones and anion gap 28. VBG pending. Discharge Plan Departure Patient Disposition: Admitted As Inpatient Clinical Impression: DKA (diabetic ketoacidoses), Nausea and vomiting Discharge Date/Time: 12/29/17 20:12 Interventions: ED Discharge Assessment Last Done: 12/29/17 20:11 Admit Date/Time: 12/29/17 19:35 Admit Provider: Quiana Medina
[2017-12-29] MEDS: INSULIN REGULAR, HUMAN 100 UNIT in SODIUM CHLORIDE 0.9% 100 ML 6 ML IV (19:38)
[2017-12-29] MEDS: METOCLOPRAMIDE 10 MG/2 ML INJ IV (19:50)
--- NOTE | 2017-12-29 19:53 | P.HP_ITS ---
History of Present Illness Date Patient Seen: 12/29/17 Chief complaint: VOMITING BLOOD Narrative: The patient is a 27-year-old male w/ PMH significant for DM 1T (w/ complications of gastroparesis and neuropathy), h/o MRSA, drop foot, bipolar depression, and anxiety. Presented to the ED on 12/29/2017 in the 5pm hour w/ complaints of abdominal pain, nausea, and vomiting. Symptom onset is acute, started at midnight on Wednesday, by report. He was seen in the ED at [facility] on 04/27, treated w/ IVF and d/c home. No improvement in sx since ED discharge. Patient describes abdominal pain as diffuse and cramping. Denies symptom most dyspepsia and distension. Nausea with dry heaving and non-bloody, non-bilious vomiting (greater than 10 episodes in the past 24 hr), poorly responsive to oral anti-emetics. Underlying history of gastroparesis with baseline diarrhea; no further report of liquid or foul smelling stool, melena or hematochezia. Additional symptoms include weakness, fatigue, malaise, dizziness, lightheadedness, polydipsia, and polyuria. Denies [place], CP, palpitations, dyspnea, confusion, or dysuria. Patient lives in [place] w/ his parents. In [place], visiting his grandmother. He does follow with Endocrinology, but lacks consistency. Patient has an overall poorly controlled diabetes and multiple associated complications. Reports most recent Hgb A1C as 9.6% (measured in the past 1 month per patient's report). He does have a tendency to miss doses of insulin on occasion. Not clear if he is non-compliant or struggles with factors which result in reduced efficacy or failure w/ recommended regimen. Admits to missing doses on Wednesday. No other overt provoking factors noted. He has been experiencing chills; however, no reported fever. No recent illness. No cough or s/s of URI. Has a h/o PNA w/ prolonged hospitalization course 5 years ago. Last DKA episodes approximately 3 months ago, by report. He does not smoke or drink, but admits to use of marijuana. Initial labs significant for hyperglycemia, elevated AG, and ketouria Patient History Medical History Diabetes type 1, uncontrolled (Acute) Nausea and vomiting (Acute) Bipolar disorder with depression (Chronic) Blurry vision, bilateral (Chronic) Diabetic gastroparesis (Chronic) Diabetic neuropathy (Chronic) History of MRSA infection (Chronic) Marijuana use (Chronic) History of pneumonia (Resolved) Family & Social History Tobacco & Substance use: Smoking Status No h/o tobacco use Smokes marijuana Alcohol intake frequency Denies current or prior alcohol use Recreational drug use Marijuana only Meds Home Medications Medication Instructions Recorded Confirmed Type insulin lispro [Humalog U-100 0 u SQ SEE INSTRUCTIONS #0 01/05/16 History Insulin] insulin glargine [Lantus U-100 25 u SQ Q DAY #30 01/03/17 History Insulin] pantoprazole [Protonix] 40 mg PO BID #60 01/06/17 Rx ondansetron 4 mg PO Q6-8H PRN #14 tab 12/28/17 Rx oxycodone-acetaminophen [Percocet] 1 tab PO Q4-6H PRN #15 tab 12/28/17 Rx Allergies Allergy/AdvReac Type Severity Reaction Status Date / Time aspirin [ASPIRIN] Allergy Unknown MAKES ME Verified 12/29/17 17:27 GO DEAF hydrocodone [HYDROCODONE] AdvReac Intermediate VOMITING Verified 12/29/17 17:27 ibuprofen [IBUPROFEN] AdvReac Intermediate HURTS Verified 12/29/17 17:27 KIDNEYS Review of Systems Review of Systems All systems reviewed & are unremarkable except as noted in HPI and below Exam Vital Signs (past 8 hours): - 12/29/17 17:27 12/29/17 17:34 12/29/17 18:27 Temperature 97.9 F Pulse Rate 113 H 116 H Respiratory Rate 20 17 Blood Pressure 154/116 H Blood Pressure [Left Arm] 157/94 H Pulse Oximetry 98 100 Oxygen Delivery Method Room Air Narrative Exam Narrative: Constitutional: NAD, frail appearing young man, appears older than his stated age Neurologic: AOx3, no focal neurological deficits Head: NC, AT Eyes: EOMI, gaze conjugate Ears: external ears normal, no otorrhea Nose: external nose normal, no rhinorrhea or epistaxis Throat: DRY MM, oropharynx w/o exudate, edentulous Neck: no masses, lymphadenopathy, or JVD Chest / Respiratory: equal chest rise, unlabored respiratory effort, no tachypnea, CTAB Heart / CV: S1S2, no murmur Abdomen / GI: soft, round, NT, ND, + BS, no organomegaly : no suprapubic tenderness, no CVA Peripheral / Vascular: warm to touch, DP and PT pulses palpable, no edema Musc: full ROM of upper and lower extremities, adequate muscle tone and bulk Skin: no ecchymosis or suspicious lesions; pale appearance of skin/tone; diminished turgor Neuro: awake, alert, conversing, no focal deficits Objective Labs Result Diagrams: 12/29/17 18:12 12/29/17 18:12 Labs: Laboratory Results - last 24 hr 12/29/17 12/29/17 12/29/17 18:12 18:12 18:12 WBC 13.3 H RBC 5.19 Hgb 12.6 L Hct 40.4 L MCV 77.9 L MCH 24.3 L MCHC 31.3 RDW 16.6 H Plt Count 333 Neut % (Auto) 87.0 H Lymph % (Auto) 9.0 L [place] % (Auto) 3.3 Eos % (Auto) 0.0 L Baso % (Auto) 0.7 Neut # (Auto) 50940 H PT 9.6 L INR 0.9 APTT 23 L D Sodium 138 Potassium 5.2 H Chloride 98 Carbon Dioxide 12 L BUN 16 Creatinine 1.00 Estimated GFR > 60.0 BUN/Creatinine Ratio 16.0 Glucose 406 H Lactate Calcium 9.2 Total Bilirubin 0.8 AST 24 ALT 22 Alkaline Phosphatase 134 H Total Protein 8.5 H Albumin 5.1 H Globulin 3.4 Albumin/Globulin Ratio 1.5 Lipase 31 Ketones 8.73 H Blood Type Antibody Screen 12/29/17 12/29/17 18:12 18:12 WBC RBC Hgb Hct MCV MCH MCHC RDW Plt Count Neut % (Auto) Lymph % (Auto) [place] % (Auto) Eos % (Auto) Baso % (Auto) Neut # (Auto) PT INR APTT Sodium Potassium Chloride Carbon Dioxide BUN Creatinine Estimated GFR BUN/Creatinine Ratio Glucose Lactate 2.8 H Calcium Total Bilirubin AST ALT Alkaline Phosphatase Total Protein Albumin Globulin Albumin/Globulin Ratio Lipase Ketones Blood Type O Positive Antibody Screen Negative Assessment & Plan (1) Diabetes: Current visit: Yes Status: Inactive Plan: Assessment/Plan Narrative: DKA (moderate) - Admit to ICU - Initiate DKA protocol - IV access (STAT), please consult vascular access if need arises - IVF and insulin gtt per protocol - BG Q1H - BMP Q4H; phos Q4H - Replete electrolyte deficiencies - Baseline EKG / Tele monitoring (K 5.2 borderline, no s/s of ACS) - Keep NPO w/ ice chips until am, then may advance diet as tolerates - Supportive care Nausea and Vomiting - anti-emetics: zofran prn Acute abdominal pain in the setting of metabolic decompensation - treat underlying keto-acidosis (see DKA plan of care) - morphine 2 mg Q3H prn, then stop Metabolic acidosis w/ elevated anion gap - IVF - Trend lactate until normal DM Type 1, uncontrolled w/ complications A1C of 9.6% (in the past month by report). Complications of diabetic gastroparesis and neuropathy. UA w/o proteinuria. - Plan to transition to home dose insulin regimen once keto-acidosis resolved, currently on an insulin gtt Diabetic Gastroparesis - metoclopramide Q6H scheduled Generalized Weakness Overall appears frail and in a debilitated / de-conditioned state - PT eval and treat - Treat underlying pathology Microcytic Anemia (Hgb 12.6 /male, MCV 77.9) iron deficiency vs chronic disease / inflammatory state - iron profile w/ % sat, ferritin - also will check B12 and folate in lieu of underlying gastroparesis, chronic diarrhea, and neuropathy Bipolar disorder w/ depression, no current harmful ideation towards self or others - ASSORTMENT PLANNER on celexa, resume when able to tolerate PO intake Diabetic neuropathy - ASSORTMENT PLANNER on amitriptyline, resume when able to tolerate PO intake Marijuana use Initially denied recreational drug use. However, requested pain medication, patient was made aware that a drug screen will be performed, it is only at that time patient admitted to use of cannabis. Also, did not mention use of percocet w/ during review of home medications. - Urine drug screen Code Status discussed w/ patient. Wished to be FULL CODE. No formal health directive in place. Designates mother or grandmother as surrogate decision makers in an event patient is not able to make decisions on his own. Home medications reviewed. Reported: insulin (diabetes), Reglan (gastroparesis) , Protonix (gastroparesis, GERD), Celexa (bipolar depression), Vistoril (anxiety ), and Elavil (neuropathy).
[2017-12-29 20:41] LABS: Bacteria Urine None Seen; RBC Urine None Seen (0-5/HPF); WBC Urine None Seen (0-5/HPF)
[2017-12-29 20:55] LABS: Appearance Urine UA CLEAR; Bilirubin Urine UA NEGATIVE (NEGATIVE); Color Urine UA YELLOW; Glucose Urine UA 1+ g/dL (Normal); Ketones Urine UA 3+ (NEGATIVE); Leukocyte Esterase Urine UA NEGATIVE (NEGATIVE); Nitrite Urine UA NEGATIVE (Negative); Occult Blood Urine UA 1+ (Negative); Protein Urine UA NEGATIVE (Negative); Specific Gravity Urine UA 1.025 (1.000-1.035); Urobilinogen Urine UA 0.2 E.U./dL (0.2)
[2017-12-29 21:00] LABS: Culture Indicated Urine Cult Not Indicated
--- NOTE | 2017-12-29 21:29 | PC.NURSE ---
1999- Patient admitted from Emergency. Patient is alert and cooperative. Patient is pale and appears ill. Patient assisted to the bed and vitals obtained. IV is noted to be infiltrated, one attempt made to get another IV but failed. Order obtained for a Picc line. Patient voided and urines sent per order. Patient is in no distress at this time.
[2017-12-29 21:42] LABS: Urine Amphetamines Negative (Negative); Urine Barbiturates Negative (Negative); Urine Benzodiazepines Negative (Negative); Urine Cocaine Negative (Negative); Urine MDMA Negative (Negative); Urine Methadone Negative (Negative); Urine Methamphetamines Negative (Negative); Urine Morphine/Opi cutoff 2000 Negative (Negative); Urine Oxycodone Positive (Negative); Urine Phencyclidine Negative (Negative); Urine Tetrahydrocannabinol Positive (Negative); Urine Tricyclic Antidepressant Negative (Negative)
[2017-12-29 22:29] LABS: Reflexed Lactate in 2 Hours Y
[2017-12-29 22:43] LABS: Lactate 2HR (Lactic Acid Rflx) 1.4 mmol/L (0.7-2.1)
[2017-12-29] MEDS: SODIUM CHLORIDE 0.9% 1,000 ML 500 ML IV (23:06)
[2017-12-29] MEDS: MORPHINE 2 MG/ML INJ IV (23:12)
[2017-12-30] MEDS: DEXTROSE 5%-0.45% NS 1,000 ML 100 ML IV (00:21)
--- NOTE | 2017-12-30 00:40 | PC.NURSE ---
T.O recieved from [facility] N.K to reduce insulin to 2.5u/hr until labs are back.
[2017-12-30 00:41] LABS: Phosphorous 1.9 mg/dL (2.5-4.5)
[2017-12-30 00:48] LABS: Hemoglobin A1C% w Est Avg Glu 10.9 % (4.0-6.0)
[2017-12-30 01:10] LABS: HEMOLYSIS < 15 (0-50); Iron 71 ug/dL (49-181)
[2017-12-30 01:18] LABS: Ferritin 22.5 ng/mL (17.9-464)
[2017-12-30 01:21] LABS: Percent Iron Saturation 22 % (20-50); Total Iron Binding Capacity 324 ug/dL (261-462); Transferrin 263 mg/dL (206-381)
[2017-12-30 01:24] LABS: BUN Creatinine Ratio 16.7 (6-22); Blood Urea Nitrogen 15 mg/dL (9-20); Calcium 8.2 mg/dL (8.4-10.2); Carbon Dioxide 15 mmol/L (22-32); Chloride 109 mmol/L (98-107); Estimated Glomerular Filt Rate > 60.0 mL/min (>60); Glucose 218 mg/dL (70-100); HEMOLYSIS < 15 (0-50); Potassium 3.9 mmol/L (3.4-5.1); Sodium 143 mmol/L (137-145)
--- NOTE | 2017-12-30 01:34 | PC.NURSE ---
DESIRE N.K. notified of potassium level and no new orders for now.
[2017-12-30 01:49] LABS: Folate 15.9 ng/mL (2.76-20.0); Vitamin B12 704 pg/mL (239-931)
[2017-12-30] MEDS: MORPHINE 2 MG/ML INJ IV ×4 (02:06→13:44)
[2017-12-30] MEDS: ONDANSETRON 4 MG/2 ML INJ IV ×2 (03:53→08:07)
[2017-12-30] MEDS: POTASSIUM CHLORIDE 20 MEQ in SODIUM CHLORIDE 0.9% 250 ML 130 ML IV (04:19)
[2017-12-30 05:16] LABS: Add Manual Diff / Slide Review NO; Basophils Percent Auto 0.7 % (0-2); Eosinophils Percent Auto 0.3 % (2-4); Hematocrit 32.2 % (41-53); Hemoglobin 10.4 g/dL (13.5-17.5); Lymphocytes Percent Auto 14.1 % (25-40); Mean Corpuscular HGB Conc 32.3 % (30-36); Mean Corpuscular Hemoglobin 24.5 PG (26-34); Mean Corpuscular Volume 75.9 fL (80-100); Monocytes Percent Auto 7.5 % (3-14); Neutrophils Absolute Auto 7800 /uL (3000-5900); Neutrophils Percent Auto 77.4 % (50-75); Platelet Count 304 X10^3/uL (150-400); Red Blood Cell Count 4.24 X10^6/uL (4.5-5.9); Red Cell Distribution Width 16.5 % (11.6-14.8)
[2017-12-30 05:25] LABS: Blood Urea Nitrogen 14 mg/dL (9-20); Calcium 8.2 mg/dL (8.4-10.2); Carbon Dioxide 16 mmol/L (22-32); Chloride 110 mmol/L (98-107); Estimated Glomerular Filt Rate > 60.0 mL/min (>60); Glucose 167 mg/dL (70-100); HEMOLYSIS < 15 (0-50); Magnesium 2.2 mg/dL (1.6-2.3); Sodium 142 mmol/L (137-145)
[2017-12-30 05:26] LABS: Potassium 5.2 mmol/L (3.4-5.1)
--- NOTE | 2017-12-30 07:02 | PC.NURSE ---
Quiana called regarding 0700 BG of 257, and we are to follow the protocol in computer.
[2017-12-30] MEDS: METOCLOPRAMIDE 10 MG/2 ML INJ IV ×2 (07:36→13:43)
--- NOTE | 2017-12-30 07:52 | PM.PN.1 ---
Subjective Date Patient Seen: 12/30/17 Time Patient Seen: 07:52 Interval history: Follow-up on DKA Patient seen at bedside. Patient is still complaining of nausea, however is not vomiting. Still has mild abdominal pain. Patient's blood glucose has dropped below 250 quickly upon arriving to ICU, but anion gap remains elevated. Patient is placed on D5 NS IVF, as per DKA protocol. Continuing frequent BMP checks. Exam Vital Signs (past 8 hours): Oxygen Delivery Method Room Air Narrative Exam Narrative: General: Cachectic individual, AAO x3. No acute distress HEENT: PERRLA bilaterally, EOMI bilaterally Neck: Supple, no LAD or JVD CV: Regular rate rhythm, no murmurs or gallops Respiratory: CTA bilaterally, no wheezes or crackles GI: Positive tenderness to palpation in all 4 quadrants. Positive bowel sounds in all 4 quadrants. No organomegaly Musculoskeletal: Moves all extremities. Foot drop bilaterally. Skin: Generalized pallor, no bruising or lesions Neuro: No focal deficits Psych: Patient seems to be depressed, not willing to answer many questions Objective Labs Result Diagrams: 12/30/17 05:00 12/30/17 05:00 Labs: Laboratory Results - last 24 hr 12/29/17 12/29/17 12/29/17 18:12 18:12 18:12 WBC 13.3 H RBC 5.19 Hgb 12.6 L Hct 40.4 L MCV 77.9 L MCH 24.3 L MCHC 31.3 RDW 16.6 H Plt Count 333 Neut % (Auto) 87.0 H Lymph % (Auto) 9.0 L [place] % (Auto) 3.3 Eos % (Auto) 0.0 L Baso % (Auto) 0.7 Neut # (Auto) 18500 H PT 9.6 L INR 0.9 APTT 23 L D Sodium 138 Potassium 5.2 H Chloride 98 Carbon Dioxide 12 L BUN 16 Creatinine 1.00 Estimated GFR > 60.0 BUN/Creatinine Ratio 16.0 Glucose 406 H Hemoglobin A1c Lactate Calcium 9.2 Phosphorus Magnesium Iron TIBC % Saturation Transferrin Ferritin Total Bilirubin 0.8 AST 24 ALT 22 Alkaline Phosphatase 134 H Total Protein 8.5 H Albumin 5.1 H Globulin 3.4 Albumin/Globulin Ratio 1.5 Lipase 31 Vitamin B12 Folate Urine Color Urine Appearance Urine pH Ur Specific [place] Urine Protein Urine Glucose (UA) Urine Ketones Urine Occult Blood Urine Nitrate Urine Bilirubin Urine Urobilinogen Ur Leukocyte Esterase Urine RBC Urine WBC Urine Bacteria Ur Culture Indicated? Micro UA Comment Nasal Screen MRSA (PCR) Urine Opiates Screen Ur Oxycodone Screen Urine Methadone Screen Ur Barbiturates Screen U Tricyclic Antidepress Ur Phencyclidine Scrn Ur Amphetamines Screen U Methamphetamines Scrn Ur MDMA Scrn (Ecstasy) U Benzodiazepines Scrn Urine Cocaine Screen U Marijuana (THC) Screen Ketones 8.73 H Blood Type Antibody Screen 12/29/17 12/29/17 12/29/17 18:12 18:12 20:10 WBC RBC Hgb Hct MCV MCH MCHC RDW Plt Count Neut % (Auto) Lymph % (Auto) [place] % (Auto) Eos % (Auto) Baso % (Auto) Neut # (Auto) PT INR APTT Sodium Potassium Chloride Carbon Dioxide BUN Creatinine Estimated GFR BUN/Creatinine Ratio Glucose Hemoglobin A1c Lactate 2.8 H Calcium Phosphorus Magnesium Iron TIBC % Saturation Transferrin Ferritin Total Bilirubin AST ALT Alkaline Phosphatase Total Protein Albumin Globulin Albumin/Globulin Ratio Lipase Vitamin B12 Folate Urine Color Urine Appearance Urine pH Ur Specific [place] Urine Protein Urine Glucose (UA) Urine Ketones Urine Occult Blood Urine Nitrate Urine Bilirubin Urine Urobilinogen Ur Leukocyte Esterase Urine RBC Urine WBC Urine Bacteria Ur Culture Indicated? Micro UA Comment Nasal Screen MRSA (PCR) Negative for mrsa Urine Opiates Screen Ur Oxycodone Screen Urine Methadone Screen Ur Barbiturates Screen U Tricyclic Antidepress Ur Phencyclidine Scrn Ur Amphetamines Screen U Methamphetamines Scrn Ur MDMA Scrn (Ecstasy) U Benzodiazepines Scrn Urine Cocaine Screen U Marijuana (THC) Screen Ketones Blood Type O Positive Antibody Screen Negative 12/29/17 12/29/17 12/29/17 20:30 20:30 22:15 WBC RBC Hgb Hct MCV MCH MCHC RDW Plt Count Neut % (Auto) Lymph % (Auto) [place] % (Auto) Eos % (Auto) Baso % (Auto) Neut # (Auto) PT INR APTT Sodium Potassium Chloride Carbon Dioxide BUN Creatinine Estimated GFR BUN/Creatinine Ratio Glucose Hemoglobin A1c Lactate 1.4 Calcium Phosphorus Magnesium Iron TIBC % Saturation Transferrin Ferritin Total Bilirubin AST ALT Alkaline Phosphatase Total Protein Albumin Globulin Albumin/Globulin Ratio Lipase Vitamin B12 Folate Urine Color Yellow Urine Appearance Clear Urine pH 5.0 Ur Specific [place] 1.025 Urine Protein Negative Urine Glucose (UA) 1+ Urine Ketones 3+ H Urine Occult Blood 1+ H Urine Nitrate Negative Urine Bilirubin Negative Urine Urobilinogen 0.2 Ur Leukocyte Esterase Negative Urine RBC None seen Urine WBC None seen Urine Bacteria None seen Ur Culture Indicated? 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 Nasal Screen MRSA (PCR) Urine Opiates Screen Negative Ur Oxycodone Screen Positive H Urine Methadone Screen Negative Ur Barbiturates Screen Negative U Tricyclic Antidepress Negative Ur Phencyclidine Scrn Negative Ur Amphetamines Screen Negative U Methamphetamines Scrn Negative Ur MDMA Scrn (Ecstasy) Negative U Benzodiazepines Scrn Negative Urine Cocaine Screen Negative U Marijuana (THC) Screen Positive H Ketones Blood Type Antibody Screen 12/30/17 12/30/17 12/30/17 00:05 00:05 00:05 WBC RBC Hgb Hct MCV MCH MCHC RDW Plt Count Neut % (Auto) Lymph % (Auto) [place] % (Auto) Eos % (Auto) Baso % (Auto) Neut # (Auto) PT INR APTT Sodium 143 Potassium 3.9 D Chloride 109 H Carbon Dioxide 15 L BUN 15 Creatinine 0.90 Estimated GFR > 60.0 BUN/Creatinine Ratio 16.7 Glucose 218 H D Hemoglobin A1c 10.9 H Lactate Calcium 8.2 L Phosphorus 1.9 L Magnesium Iron 71 TIBC 324 % Saturation 22 Transferrin 263 Ferritin 22.5 Total Bilirubin AST ALT Alkaline Phosphatase Total Protein Albumin Globulin Albumin/Globulin Ratio Lipase Vitamin B12 704 Folate 15.9 Urine Color Urine Appearance Urine pH Ur Specific [place] Urine Protein Urine Glucose (UA) Urine Ketones Urine Occult Blood Urine Nitrate Urine Bilirubin Urine Urobilinogen Ur Leukocyte Esterase Urine RBC Urine WBC Urine Bacteria Ur Culture Indicated? Micro UA Comment Nasal Screen MRSA (PCR) Urine Opiates Screen Ur Oxycodone Screen Urine Methadone Screen Ur Barbiturates Screen U Tricyclic Antidepress Ur Phencyclidine Scrn Ur Amphetamines Screen U Methamphetamines Scrn Ur MDMA Scrn (Ecstasy) U Benzodiazepines Scrn Urine Cocaine Screen U Marijuana (THC) Screen Ketones Blood Type Antibody Screen 12/30/17 12/30/17 12/30/17 05:00 05:00 05:00 WBC 10.0 RBC 4.24 L Hgb 10.4 L Hct 32.2 L MCV 75.9 L MCH 24.5 L MCHC 32.3 RDW 16.5 H Plt Count 304 Neut % (Auto) 77.4 H Lymph % (Auto) 14.1 L [place] % (Auto) 7.5 Eos % (Auto) 0.3 L Baso % (Auto) 0.7 Neut # (Auto) 7800 H PT INR APTT Sodium 142 Potassium 5.2 H D Chloride 110 H Carbon Dioxide 16 L BUN 14 Creatinine 0.70 Estimated GFR > 60.0 BUN/Creatinine Ratio 20.0 Glucose 167 H Hemoglobin A1c Lactate Calcium 8.2 L Phosphorus Magnesium 2.2 Iron TIBC % Saturation Transferrin Ferritin Total Bilirubin AST ALT Alkaline Phosphatase Total Protein Albumin Globulin Albumin/Globulin Ratio Lipase Vitamin B12 Folate Urine Color Urine Appearance Urine pH Ur Specific [place] Urine Protein Urine Glucose (UA) Urine Ketones Urine Occult Blood Urine Nitrate Urine Bilirubin Urine Urobilinogen Ur Leukocyte Esterase Urine RBC Urine WBC Urine Bacteria Ur Culture Indicated? Micro UA Comment Nasal Screen MRSA (PCR) Urine Opiates Screen Ur Oxycodone Screen Urine Methadone Screen Ur Barbiturates Screen U Tricyclic Antidepress Ur Phencyclidine Scrn Ur Amphetamines Screen U Methamphetamines Scrn Ur MDMA Scrn (Ecstasy) U Benzodiazepines Scrn Urine Cocaine Screen U Marijuana (THC) Screen Ketones Blood Type Antibody Screen Assessment & Plan Plan: Assessment/Plan Narrative: 1. DKA -likely due to noncompliance to insulin use -last anion gap is 16, improving slowly -blood glucose is 167 -initiated D5 half NS at 100 cc/hour, as per DKA protocol -continue blood glucose checks q.1 hour, and BMP checks q.4 hours -replete potassium as needed -Zofran and Reglan as needed for nausea vomiting -morphine IV as needed for abdominal pain -will transition to p.o. intake and subcu insulin once patient's nausea/vomiting is resolved and anion gap is closed 2. Type 1 diabetes mellitus -insulin dependent, noncompliant with insulin use -patient takes Lantus 25 units q.h.s. and sliding scale as well as carb count based lispro -will transition to home regimen once DKA is resolved 3. Diabetic neuropathy -will resume amitriptyline once patient is able to take p.o. 4. Generalized weakness -PT/OT evaluation pending 5. Microcytic anemia -hemoglobin dropped to 10.4, suspect due to dilution -pending iron panel, B12, and folic acid levels Dispo: Treating DKA. Pending transition to p.o. intake once patient is tolerating p.o. and anion gap is closed 30 min spent evaluating and managing this patient
[2017-12-30 08:00] VITALS: BP 109/67; PULSE 102; RESP 13; TEMP 37.2; O2SAT 100
[2017-12-30] MEDS: DEXTROSE 5%-0.45% NS 1,000 ML 95 ML IV (08:20)
[2017-12-30 09:39] LABS: BUN Creatinine Ratio 18.6 (6-22); Blood Urea Nitrogen 13 mg/dL (9-20); Calcium 8.2 mg/dL (8.4-10.2); Carbon Dioxide 21 mmol/L (22-32); Chloride 108 mmol/L (98-107); Estimated Glomerular Filt Rate > 60.0 mL/min (>60); Glucose 159 mg/dL (70-100); HEMOLYSIS < 15 (0-50); Potassium 3.4 mmol/L (3.4-5.1); Sodium 141 mmol/L (137-145)
[2017-12-30] MEDS: DEXTROSE 10 % IN WATER 1,000 ML 63.5 ML IV (10:05)
[2017-12-30] MEDS: POTASSIUM CHLORIDE 40 MEQ in SODIUM CHLORIDE 0.9% 500 ML 130 ML IV (10:13)
[2017-12-30] MEDS: LORazepam 2 MG/ML SYRINGE 0.5 MG IV (10:45)
[2017-12-30] MEDS: DEXTROSE 50 % IN WATER 25 GM/50 ML SYRINGE IV (11:02)
[2017-12-30 12:00] VITALS: BP 116/69; PULSE 94; RESP 16; TEMP 36.5; O2SAT 99
[2017-12-30] MEDS: INSULIN GLARGINE 100 UNIT/ML 3ML PEN 25 UNIT SUBCUT (12:08)
[2017-12-30 13:44] LABS: BUN Creatinine Ratio 14.3 (6-22); Blood Urea Nitrogen 10 mg/dL (9-20); Calcium 7.9 mg/dL (8.4-10.2); Carbon Dioxide 19 mmol/L (22-32); Chloride 104 mmol/L (98-107); Estimated Glomerular Filt Rate > 60.0 mL/min (>60); Glucose 319 mg/dL (70-100); HEMOLYSIS < 15 (0-50); Potassium 4.8 mmol/L (3.4-5.1); Sodium 136 mmol/L (137-145)
--- NOTE | 2017-12-30 14:41 | PC.NURSE ---
Insulin gtt titrated to off 1305, after administration of subcut lantus. Pt reports abd pain and nausea is back to his baseline at this point. Still requesting morphine and reglan/zofran at soonest available intervals. Pt normally takes PO reglan QID and percocet 5/325mg PO Q6H PRN home routine. Called to MD and received orders to restart reglan and percocet. Attempted to complete med rec but pt dose not know doses/intervals for several medications. Physical therapy evaluation completed. Pt ambulated around nurses station and reported nausea is starting to kick up. He has had no emesis this shift. Medicated per order (see APR). Diet adv. to full liquids. Dr. Camacho states pt may be floor care without telemetry monitoring at 1800 if he continues to be stable.
--- NOTE | 2017-12-30 15:12 | PT.IIE ---
Current Diagnoses Type 2 diabetes mellitus without complications (12/29/17) Medical History (Last Updated 12/29/17 @ 23:35 by DESIRE Tineo) Diabetes type 1, uncontrolled (Acute) Nausea and vomiting (Acute) Bipolar disorder with depression (Chronic) Blurry vision, bilateral (Chronic) Diabetic gastroparesis (Chronic) Diabetic neuropathy (Chronic) History of MRSA infection (Chronic) Marijuana use (Chronic) History of pneumonia (Resolved) Physical Therapy Inpatient Evaluation/Re-Eval M1 PT/OT-IP Prior Functional Status Start: 12/30/17 13:58 Freq: NEEDED Status: Active Protocol: Document 12/30/17 13:45 AMB (Rec: 12/30/17 14:09 AMB [id number]) Medical Review Prior Functional Status Medical History Reviewed Yes Social History Household Members family Living Arrangements House Number of Floors (Floors) Two Floors Number of Stairs To Enter/Railing? 0 Employment Status Unemployed Additional Social History Comment Pt lives in basement of his parents' home. There is a railing. He states most of his exercise is going up and down the stairs. He denies any falls in the last 6 months. M2 PT-IP Current Condition Start: 12/30/17 13:58 Freq: NEEDED Status: Active Protocol: Document 12/30/17 13:45 AMB (Rec: 12/30/17 14:09 AMB [id number]) Physical Therapy Current Condition Current Condition Evaluation Date 12/30/17 Treatment Diagnosis nausea/vomiting Type 1 DM Onset Date 12/28/17 M3 PT-IP Subjective Start: 12/30/17 13:58 Freq: NEEDED Status: Active Protocol: Document 12/30/17 13:45 AMB (Rec: 12/30/17 14:09 AMB [id number]) Subjective Physical Therapy Visit Type Type Initial Evaluation Visit Start Time 13:15 Visit Stop Time 13:55 Total Visit Minutes 40 Number of PRECISION ASSEMBLER BENCH Visits 0 Physical Therapy Visit Comments Patient Comments I don't think I need PT Patient Goals Go home to his grandma's who lives in [place] Therapy Pain Assessment Pain When Pain Assessed During Mobility Pain Present Pain Present Pain Reported Location Abdomen Intensity 8 Scale Used Numeric (1 - 10) M4 PT-IP Mobility and Gait Start: 12/30/17 13:58 Freq: NEEDED Status: Active Protocol: Document 12/30/17 13:45 AMB (Rec: 12/30/17 14:18 AMB [id number]) PT-Bed Mobility Assessment Rolling Type of Rolling Roll to Left Level of Assist Independent Supine to Sit Supine to Sit Independent Sit to Supine Sit to Supine Independent Scooting Scooting to Edge of Bed Independent Scooting Up and Down in Bed Independent PT-Transfer Assessment Sit to and From Stand Sit to and from Stand Standby Assistance Equipment Transfer Assistive Device None Gait Assessment Gait Gait Assistance Required: Standby Assistance Distance (Feet) 50 Assistive Devices Assistive Device None Factors Limiting Gait Function Factors Limiting Gait Function Decreased Sensation Decreased Strength Poor Balance Comments Gait Comments Pt ambulates with shoes and L AFO. Slightly wide base of support. Stair Climbing Assessment Evaluation Level of Assist On Stairs Standby Assistance Devices Stair Climbing Assistive Devices Right Railing Technique/Endurance Stair Climbing Direction Ascend and Descend Stair Climbing Technique Step to Step Number of Steps Climbed 3 Query Text: Comments Stair Climbing Comments Used 8 step in ICU, pt needed UE support. PT-Balance Assessment Sitting Balance and Reactions Static Sitting Balance Ability Normal Dynamic Sitting Balance Ability Normal Standing Balance and Reactions Static Standing Balance Ability Fair Dynamic Standing Balance Ability Fair Balance Tests Single Limb Standing 1 second on the L, 5 seconds on R Romberg increased hip sway, maintained 10 seconds M5 PT-IP Objective Assessments Start: 12/30/17 13:58 Freq: NEEDED Status: Active Protocol: Document 12/30/17 13:45 AMB (Rec: 12/30/17 14:18 AMB [id number]) Orientation Orientation/Cognition Level of Alertness Alert Gross Range of Motion Lower Extremity ROM Impairments Limited passive dorsiflexion on the left to neutral Strength Lower Extremity Strength Hip 5 Knee 5 Ankle 3 Comments Strength Comments Ankle dorsiflexion on the left 2+/5, on the right 4/5, pt is able to perform double leg heel lift. Sensation Assessment Comments Sensation Comments Pt reports bilateral neuropathy to his knees. M6 PT-IP Treatment Start: 12/30/17 13:58 Freq: NEEDED Status: Active Protocol: Document 12/30/17 13:45 AMB (Rec: 12/30/17 15:11 AMB [id number]) Physical Therapy Treatment Exercises Knee ROM Measurement calf stretching Education Education Provided Safety M7 PT-IP Assessment and Plan Start: 12/30/17 13:58 Freq: NEEDED Status: Active Protocol: Document 12/30/17 13:45 AMB (Rec: 12/30/17 15:11 AMB [id number]) PT Summary Assessment and Plan Potential Rehabilitation Potential Good Status of Condition at Evaluation Stable Summary Impairments Pain ROM Balance Sensation Gait Assessment Summary The patient states that he feels that he is at his baseline as far as mobility. He continues to be nauseous and his abdominal pain did increase with walking. His baseline mobility is not good for his age. He is unable to perform single leg stance on his left leg, and with his neuropathy and poor vision, it is surprising that he does not have a fall history. He was able to perform all bed mobility independently, and walked without assistive device although his pain limited how much he wanted to walk. The patient was instructed in calf stretching for his left foot, and should be safe to return home with his parents when he is medically stable. He will not need an assistive device. He would benefit from a more active lifestyle, but he has tried outpatient physical therapy before per his report and does not wish to repeat it . As he is at his baseline mobility (although it is poor for his age) he will not need further PT while hospitalized unless he has a significant change in function. Frequency of Treatment Frequency Of Treatment Discharge Recommendations To Nursing Amount of Assist Needed Standby Assistance Discharge Recommendations PT Discharge Recommendations Home
[2017-12-30 15:17] VITALS: BP 137/88; PULSE 95; RESP 16; TEMP 36.4; O2SAT 98
[2017-12-30] MEDS: METOCLOPRAMIDE HCL 10 MG TABLET PO ×2 (16:59→21:30)
[2017-12-30] MEDS: INSULIN ASPART 100 UNIT/ML INSULN PEN SUBCUT (17:00)
[2017-12-30 17:33] LABS: BUN Creatinine Ratio 12.9 (6-22); Blood Urea Nitrogen 9 mg/dL (9-20); Calcium 8.2 mg/dL (8.4-10.2); Carbon Dioxide 24 mmol/L (22-32); Chloride 103 mmol/L (98-107); Estimated Glomerular Filt Rate > 60.0 mL/min (>60); Glucose 191 mg/dL (70-100); HEMOLYSIS < 15 (0-50); Sodium 138 mmol/L (137-145)
[2017-12-30] MEDS: OXYCODONE/ACETAMINOPHEN 5/325 TABLET 1 TAB PO (18:57)
[2017-12-30 19:00] VITALS: BP 128/79; PULSE 98; RESP 16; TEMP 36.7; O2SAT 97
[2017-12-30 23:44] VITALS: BP 130/90; PULSE 93; RESP 14; TEMP 36.9; O2SAT 99
[2017-12-31] MEDS: OXYCODONE/ACETAMINOPHEN 5/325 TABLET 1 TAB PO (05:09)
[2017-12-31 05:16] VITALS: BP 153/116; PULSE 98; RESP 14; TEMP 36.9; O2SAT 99
--- NOTE | 2017-12-31 05:21 | PC.NURSE ---
Can I have some Morphine?, pill for pain suggested and accepted. Will recheck BP when sleeping.
[2017-12-31 05:24] LABS: Add Manual Diff / Slide Review NO; Basophils Percent Auto 0.8 % (0-2); Eosinophils Percent Auto 1.9 % (2-4); Hematocrit 32.3 % (41-53); Hemoglobin 10.4 g/dL (13.5-17.5); Lymphocytes Percent Auto 34.9 % (25-40); Mean Corpuscular HGB Conc 32.1 % (30-36); Mean Corpuscular Hemoglobin 24.3 PG (26-34); Mean Corpuscular Volume 75.5 fL (80-100); Monocytes Percent Auto 8.9 % (3-14); Neutrophils Absolute Auto 3800 /uL (3000-5900); Neutrophils Percent Auto 53.5 % (50-75); Platelet Count 268 X10^3/uL (150-400); Red Blood Cell Count 4.28 X10^6/uL (4.5-5.9); Red Cell Distribution Width 16.7 % (11.6-14.8)
[2017-12-31 05:26] LABS: Blood Urea Nitrogen 7 mg/dL (9-20); Calcium 8.2 mg/dL (8.4-10.2); Carbon Dioxide 25 mmol/L (22-32); Chloride 102 mmol/L (98-107); Estimated Glomerular Filt Rate > 60.0 mL/min (>60); Glucose 138 mg/dL (70-100); HEMOLYSIS < 15 (0-50); Potassium 3.4 mmol/L (3.4-5.1); Sodium 135 mmol/L (137-145)
[2017-12-31 06:00] VITALS: BP 148/105; PULSE 88; RESP 14
--- NOTE | 2017-12-31 07:23 | PM.DS.1 ---
History of Present Illness Date Patient Seen: 12/31/17 Time Patient Seen: 07:24 Chief complaint: VOMITING BLOOD Narrative: 27-year-old male w/ PMH significant for DM 1T (w/ complications of gastroparesis and neuropathy), h/o MRSA, drop foot, bipolar depression, and anxiety. Presented to the ED on 12/29/2017 in the 5pm hour w/ complaints of abdominal pain, nausea, and vomiting. Symptom onset is acute, started at midnight on Wednesday, by report. He was seen in the ED at [facility] on 04/27, treated w/ IVF and d/c home. No improvement in sx since ED discharge. Patient describes abdominal pain as diffuse and cramping. Denies symptom most dyspepsia and distension. Nausea with dry heaving and non-bloody, non-bilious vomiting (greater than 10 episodes in the past 24 hr), poorly responsive to oral anti-emetics. Underlying history of gastroparesis with baseline diarrhea; no further report of liquid or foul smelling stool, melena or hematochezia. Additional symptoms include weakness, fatigue, malaise, dizziness, lightheadedness, polydipsia, and polyuria. Denies [place], CP, palpitations, dyspnea, confusion, or dysuria. Patient lives in [place] w/ his parents. In [place], visiting his grandmother. He does follow with Endocrinology, but lacks consistency. Patient has an overall poorly controlled diabetes and multiple associated complications. Reports most recent Hgb A1C as 9.6% (measured in the past 1 month per patient's report). He does have a tendency to miss doses of insulin on occasion. Not clear if he is non-compliant or struggles with factors which result in reduced efficacy or failure w/ recommended regimen. Admits to missing doses 3 days prior to admission. No other overt provoking factors noted. He has been experiencing chills; however, no reported fever. No recent illness. No cough or s/s of URI. Has a h/o PNA w/ prolonged hospitalization course 5 years ago. Last DKA episodes approximately 3 months ago, by report. He does not smoke or drink, but admits to use of marijuana. Initial labs significant for hyperglycemia, elevated AG, and ketouria Discharge Providers Date of admission: 12/29/17 19:35 Consults: 12/30/17 03:11 Consult to Physical Therapy Evaluate & Treat Comment: weakness, deconditioning Physician Instructions: Evaluate and Treat Discharge provider: Montserrat Camacho MD Discharge Date: 12/31/17 Summary Discharge Diagnosis: DKA, resolved Insulin dependent DM Marijuana dependance Diabetic polyneuropathy Diabetic Gastroporesis Microcytic anemia, stable Hospital Course: On admission to ED, patient's vital signs were stable with exception of heart rate which was 116, and blood pressure which was 157/94. Lab work revealed WBCs of 13.3, hemoglobin 12.6, hematocrit 40.4, platelets 333. Sodium was 138, potassium 5.2, chloride 96, bicarb 12, BUN 16, creatinine 1.0, glucose 406. Anion gap noted to be at 28. Lactic acid was 2.8. Ketones were 8.73. Patient was admitted to ICU for further management of DKA. Once in ICU, insulin drip was initiated as per DKA protocol. Patient's blood glucose quickly dropped to below 250, however anion gap remained elevated. Patient was started on D5 half NS and insulin drip decreased. Over the course of the day, the patient's anion gap slowly closed. His nausea was treated with Zofran IV, Reglan IV, and Ativan IV as needed. Once patient was able to tolerate p.o. and anion gap was closed, he was transitioned to his home regimen of subcu insulin. Patient tolerated p.o. and blood glucose remained stable. Nausea and vomiting were well controlled with switching to p.o. medications of Reglan. Patient has chronic abdominal pain was managed with Percocet. While admitted, patient had few episodes of increased blood pressure, for which he received labetalol IV as needed with good improvement. PT/OT has evaluated patient, and stated that he was back to baseline for his ambulating status. Patient will be discharged home with continuation of his home regimen insulin, Percocet, and Reglan for diabetic gastroparesis. Status at Discharge Functional status at discharge: independent ambulation Overall status at discharge: patient is back to baseline Time Spent with Patient Less than 30 minutes Exam Vital Signs (past 8 hours): - 12/30/17 23:44 12/31/17 05:16 12/31/17 06:00 Temperature 98.4 F 98.5 F Pulse Rate 93 H 98 H 88 Respiratory Rate 14 14 14 Blood Pressure 130/90 153/116 H 148/105 H Pulse Oximetry 99 99 Oxygen Delivery Method Room Air Oxygen Flow Rate 0 Narrative Exam Narrative: General: Cachectic individual, AAO x3. No acute distress HEENT: PERRLA bilaterally, EOMI bilaterally Neck: Supple, no LAD or JVD CV: Regular rate rhythm, no murmurs or gallops Respiratory: CTA bilaterally, no wheezes or crackles GI: Positive tenderness to palpation in all 4 quadrants. Positive bowel sounds in all 4 quadrants. No organomegaly Musculoskeletal: Moves all extremities. Foot drop noted Skin: Generalized pallor, no bruising or lesions Neuro: No focal deficits Psych: Mood is appropriate, answers all questions. Eager to go home Objective Labs Result Diagrams: 12/31/17 05:00 12/31/17 05:00 Labs: Laboratory Results - last 24 hr 12/30/17 12/30/17 12/30/17 09:00 13:25 17:00 WBC RBC Hgb Hct MCV MCH MCHC RDW Plt Count Neut % (Auto) Lymph % (Auto) [place] % (Auto) Eos % (Auto) Baso % (Auto) Neut # (Auto) Sodium 141 136 L 138 Potassium 3.4 D 4.8 D 4.0 Chloride 108 H 104 103 Carbon Dioxide 21 L 19 L 24 BUN 13 10 9 Creatinine 0.70 0.70 0.70 Estimated GFR > 60.0 > 60.0 > 60.0 BUN/Creatinine Ratio 18.6 14.3 12.9 Glucose 159 H 319 H D 191 H D Calcium 8.2 L 7.9 L 8.2 L 12/31/17 12/31/17 05:00 05:00 WBC 7.0 RBC 4.28 L Hgb 10.4 L Hct 32.3 L MCV 75.5 L MCH 24.3 L MCHC 32.1 RDW 16.7 H Plt Count 268 Neut % (Auto) 53.5 D Lymph % (Auto) 34.9 D [place] % (Auto) 8.9 Eos % (Auto) 1.9 L Baso % (Auto) 0.8 Neut # (Auto) 3800 Sodium 135 L Potassium 3.4 Chloride 102 Carbon Dioxide 25 BUN 7 L Creatinine 0.70 Estimated GFR > 60.0 BUN/Creatinine Ratio 10.0 Glucose 138 H Calcium 8.2 L Discharge Plan Discharge Plan Discharge Problem: DKA (diabetic ketoacidoses), Nausea and vomiting Patient Disposition: Home Discharge Med Rec/Prescriptions Prescriptions: Continue insulin glargine [Lantus U-100 Insulin] 100 UNIT/1 ML solution 25 u SQ Q DAY Qty: 30 RF: 0 pantoprazole [Protonix] 40 MG tablet,delayed release (DR/EC) 40 mg PO BID Qty: 60 RF: 0 oxycodone-acetaminophen [Percocet] 5-325 mg Tablet 1 tab PO Q6H PRN (Reason: pain) RF: 0 metoclopramide HCl [Reglan] 10 mg Tablet 10 mg PO QID RF: 0 Celexa DAILY RF: 0 Vistaril PO PRN (Reason: Anxiety) RF: 0 amitriptyline PO BEDTIME RF: 0 insulin aspart U-100 [Novolog Flexpen U-100 Insulin] 100 unit/mL Insulin Pen 1 unit subcut AC RF: 0 Provider Discharge Instructions Diet: Carb-consistent/Diabetic Discharge Data Attending Provider: Quiana Medina Admit Date/Time: 12/29/17 19:35
[2017-12-31] MEDS: LABETALOL 20 MG/4 ML SYRINGE 5 MG IV (07:25)
[2017-12-31 08:01] VITALS: BP 141/102; PULSE 93; RESP 14; TEMP 36.4; O2SAT 99
--- NOTE | 2017-12-31 08:05 | CM.DPC ---
DCP Discharge Home Per MD, pt is medically stable to d/c home with grandmother today and no identified barriers to discharge. Per PT, pt back at baseline for ambulation and safe for d/c home when stable. Plan: Patient to d/c home to grandmother's house today via POV before returning home to [place]. GORDON [place]
[2017-12-31] MEDS: METOCLOPRAMIDE HCL 10 MG TABLET PO (08:22)
[2017-12-31] MEDS: INSULIN GLARGINE 100 UNIT/ML 3ML PEN 25 UNIT SUBCUT (08:22)
--- NOTE | 2017-12-31 10:30 | PC.NURSE ---
Pt d/c'd to home per MD order. Pt states he has an appointment with his PCP on 01/08/2018 in [place]. Provided d/c packet. Pt declines education regarding dx, medications. Reviewed medications with him. He states he understands his insulin regimen and agrees to use his insulin accordingly. Midline was d/c'd and personnel monitor removed. Pt showered independently and dressed himself. All belongings gathered and sent with pt. He transferred independently to w/c and was escorted to ER entrance by BIOMEDICAL EQUIPMENT TECHNICIAN in no acute distress. Left in POV with family at 1030.
[2018-01-01 19:59] LABS: Beta- Hydroxybutyrate 8.36 mmol/L
== END 2017-12-31 10:30 | disposition home or self-care (01) | DRG 638 ==
LOC: ED 19:20 → ICU 19:37
PROVIDERS: Emergency Medicine; Internal Medicine; Admitting Provider Nurse Practitioner Gerontology; Emergency Provider Emergency Medicine; Visit Provider Nurse Practitioner Gerontology
DX: E10.10 Type 1 diabetes mellitus with ketoacidosis without coma (principal); F31.89 Other bipolar disorder; E10.43 Type 1 diabetes mellitus with diabetic autonomic (poly)neuropathy; K31.84 Gastroparesis; F41.9 Anxiety disorder, unspecified; D50.9 Iron deficiency anemia, unspecified; F12.20 Cannabis dependence, uncomplicated
CPT/HCPCS: 36415; 36591; 36592; 80048; 80053; 80305; 81001; 82009; 82607; 82728; 82746; 82962; 83036; 83540; 83550; 83605; 83690; 83735; 84100; 85025; 85610; 85730; 86850; 86900; 86901; 87040; 87797; 96365; 96366; 96375; 97161; 99283; 99284; C9113; J1644; J2060; J2270; J2405; J2765; J3480; J7050

== ENCOUNTER 2018-01-04 22:42 | Emergency (ER) | payer OTHER, SELFPAY ==
--- NOTE | 2018-01-04 22:48 | ED_ITS ---
HPI - General Adult General Chief complaint: Diabetic Problem Stated complaint: GLF, Diarrhea Time Seen by Provider: 01/04/18 22:44 Source: patient and EMS Mode of arrival: EMS Limitations: no limitations History of Present Illness HPI narrative: Patient is a 27-year-old male insulin-dependent diabetic who is been in this emergency department in the past and admitted for DKA. Patient states that this evening he has not felt very well. Has had limited oral intake. He states that his blood sugar dropped low while he was at home so he went to go drink some fluids. He states that he fell at home while trying to get some juice. he was able to drink some juice but then became very weak again and fell again. EMS was called. No interventions prior to arrival. Patient refused an IV by EMS. Related Data Home Medications Medication Instructions Recorded Confirmed insulin glargine [Lantus U-100 25 u SQ Q DAY #30 01/03/17 12/30/17 Insulin] Celexa DAILY 12/30/17 Vistaril PO PRN 12/30/17 amitriptyline PO BEDTIME 12/30/17 insulin aspart U-100 [Novolog 1 unit SUBCUT AC 12/30/17 12/30/17 Flexpen U-100 Insulin] metoclopramide HCl [Reglan] 10 mg PO QID 12/30/17 12/30/17 oxycodone-acetaminophen [Percocet] 1 tab PO Q6H PRN 12/30/17 12/30/17 Previous Rx's Medication Instructions Recorded pantoprazole [Protonix] 40 mg PO BID #60 01/06/17 Allergies Allergy/AdvReac Type Severity Reaction Status Date / Time aspirin [ASPIRIN] Allergy Unknown MAKES ME Verified 12/29/17 17:27 GO DEAF hydrocodone [HYDROCODONE] AdvReac Intermediate VOMITING Verified 12/29/17 17:27 ibuprofen [IBUPROFEN] AdvReac Intermediate HURTS Verified 12/29/17 17:27 KIDNEYS Review of Systems Constitutional Denies fever(s), Denies headache(s), Reports lethargy and Reports malaise ENT Ears, Nose, Mouth, and Throat: Denies vertigo, Reports dizziness, Denies headache(s), Denies lip swelling and Reports disequilibrium Cardiovascular Denies chest pain, Denies syncope, Denies palpitations and Denies dyspnea Respiratory Denies dyspnea Gastrointestinal Gastrointestinal: Denies abdominal pain, Denies change in bowel habits, Reports nausea and Reports vomiting Genitourinary Denies urinary hesitancy, Denies urinary incontinence and Denies urinary urgency Musculoskeletal Reports abnormal gait, Denies myalgias, Denies deformity and Denies arthralgias Integumentary/Breasts Denies rash Neurologic Reports abnormal gait, Denies behavioral changes, Denies vertigo, Reports dizziness, Denies syncope, Denies headache(s), Reports lack of coordination, Denies focal weakness and Reports disequilibrium Psychiatric Reports anxiety and Denies behavioral changes Endocrine Denies palpitations Hematologic/Lymphatic Denies easy bleeding and Denies easy bruising Allergic/Immunologic Denies urticaria and Denies lip swelling PFSH Medical History Diabetes type 1, uncontrolled (Acute) Nausea and vomiting (Acute) Bipolar disorder with depression (Chronic) Blurry vision, bilateral (Chronic) Diabetic gastroparesis (Chronic) Diabetic neuropathy (Chronic) History of MRSA infection (Chronic) Marijuana use (Chronic) History of pneumonia (Resolved) Surgical History No pertinent past surgical history (Acute) Social History household members: family Smoking Status: Never smoker Exam Initial Vital Signs Initial Vital Signs: Vital Signs Temperature 98.3 F 01/04/18 22:55 Pulse Rate 120 H 01/04/18 22:55 Respiratory Rate 20 01/04/18 22:55 Blood Pressure 94/66 01/04/18 22:55 Pulse Oximetry 99 01/04/18 22:55 Const General: cooperative, well developed, No acute distress, disheveled and frail appearing Nutritional Appearance: thin Orientation: alert, awake and oriented x3 HENMT Head: normal to inspection and normocephalic Chest Chest: normal inspection of the chest, No crepitus and No tenderness Resp Effort & Inspection: normal respiratory effort Auscultation: clear to auscultation bilaterally Cardio Rate: tachycardic Rhythm: regular rhythm Pulses: radial pulses present GI Inspection: non-distended Palpation: soft, No firm and No tender Skin Rashes: no rashes Neuro General: alert, awake and oriented x3 Cognition: normal cognition Extrem General: normal to inspection, capillary refill normal, No no pedal edema and No calf tenderness Psych Appearance: grossly normal and well kempt Course Orders Ordered: ED Orders 01/04/18 22:49 Venous Blood Gas Stat 11/27/18 22:50 Urine Drug Screen, Rapid Stat 01/04/18 23:42 Complete Blood Count AUTO DIFF Stat Comprehensive Metabolic Panel Stat Ethanol (ETOH) Stat Ketones (Beta-Hydroxybutyrate) Stat Lactate (Lactic Acid) Stat Lipase Stat Magnesium Stat Phosphorous Stat 01/04/18 23:50 Urinalysis and Microscopic Stat 01/05/18 00:04 Venous Blood Gas Stat Sodium Chloride (Normal Saline 0.9%) 1,000 mls @ 150 mls/hr IV CONT XENA Discontinued Medications Hydromorphone HCl (Dilaudid) 0.5 mg IV NOW ONE Stop: 01/05/18 00:05 Last Admin: 01/05/18 00:10 Dose: 0.5 mg Sodium Chloride (Normal Saline 0.9%) 1,000 mls @ 1,000 mls/hr IV BOLUS ONE Stop: 01/04/18 23:47 Last Admin: 01/05/18 00:09 Dose: 1,000 mls/hr Ondansetron HCl (Zofran) 4 mg IV NOW ONE Stop: 01/04/18 22:49 Last Admin: 01/05/18 00:10 Dose: 4 mg Ondansetron HCl (Zofran) 4 mg IV NOW ONE Stop: 01/04/18 23:15 Last Admin: 01/05/18 00:10 Dose: Not Given Prochlorperazine (Compazine) 5 mg IV NOW ONE Stop: 01/05/18 00:42 Last Admin: 01/05/18 01:00 Dose: 5 mg Vital Signs - 8 hr 01/04/18 22:55 01/05/18 01:30 01/05/18 02:19 Temperature 98.3 F Pulse Rate 120 H 88 82 Respiratory Rate 20 18 Blood Pressure 94/66 Blood Pressure [Right Arm] 92/59 L 87/51 L Pulse Oximetry 99 97 01/05/18 03:03 Temperature Pulse Rate 88 Respiratory Rate Blood Pressure Blood Pressure [Right Arm] 94/60 Pulse Oximetry Medical Decision Making Lab Data Lab results reviewed: Yes I reviewed the patient's lab results. Result diagrams: 01/04/18 23:42 01/04/18 23:42 Lab Results 01/04/18 01/04/18 01/04/18 Range/Units 23:42 23:42 23:42 WBC 6.0 (4.5-11.0) X10^3/uL RBC 5.34 (4.5-5.9) X10^6/uL Hgb 12.9 L (13.5-17.5) g/dL Hct 40.6 L (41-53) % MCV 76.1 L (80-100) fL MCH 24.2 L (26-34) PG MCHC 31.8 (30-36) % RDW 16.9 H (11.6-14.8) % Plt Count 307 (150-400) X10^3/uL Neut % (Auto) 64.3 (50-75) % Lymph % (Auto) 24.3 L (25-40) % [place] % (Auto) 9.7 (3-14) % Eos % (Auto) 1.2 L (2-4) % Baso % (Auto) 0.5 (0-2) % Neut # (Auto) 3900 (0862-9898) /uL VBG pH (7.33-7.43) VBG pCO2 (45-50) mmHg VBG pO2 (35-45) mmHg VBG HCO3 (23-28) mmol/L VBG Total CO2 (24-29) mmol/L VBG O2 Saturation (70-75) % VBG Base Excess (0-4) mmol/L Sodium 139 (137-145) mmol/L Potassium 4.8 D (3.4-5.1) mmol/L Chloride 96 L (98-107) mmol/L Carbon Dioxide 27 (22-32) mmol/L BUN 14 (9-20) mg/dL Creatinine 1.00 (0.66-1.25) mg/dL Estimated GFR > 60.0 (>60) mL/min BUN/Creatinine Ratio 14.0 (6-22) Glucose 112 H (70-100) mg/dL Lactate 2.3 H (0.7-2.1) mmol/L Calcium 9.6 (8.4-10.2) mg/dL Phosphorus 5.4 H D (2.5-4.5) mg/dL Magnesium 2.3 (1.6-2.3) mg/dL Total Bilirubin 0.2 (0.2-1.3) mg/dL AST 20 (17-59) IU/L ALT 21 (21-72) IU/L Alkaline Phosphatase 84 D (38-126) U/L Total Protein 7.6 (6.3-8.2) g/dL Albumin 4.6 (3.5-5.0) g/dL Globulin 3.0 (1.7-4.1) g/dL Albumin/Globulin Ratio 1.5 (1.0-2.8) Lipase 146 D (23-300) U/L Urine Color Urine Appearance Urine pH (4.5-8.0) Ur Specific [place] (1.000-1.035) Urine Protein (Negative) Urine Glucose (UA) (Normal) g/dL Urine Ketones (NEGATIVE) Urine Occult Blood (Negative) Urine Nitrate (Negative) Urine Bilirubin (NEGATIVE) Urine Urobilinogen (0.2) E.U./dL Ur Leukocyte Esterase (NEGATIVE) Urine RBC Urine WBC Urine Bacteria Ethyl Alcohol < 10 mg/dL Ketones 0.14 (<0.27) mmol/L 01/04/18 01/05/18 Range/Units 23:50 00:04 WBC (4.5-11.0) X10^3/uL RBC (4.5-5.9) X10^6/uL Hgb (13.5-17.5) g/dL Hct (41-53) % MCV (80-100) fL MCH (26-34) PG MCHC (30-36) % RDW (11.6-14.8) % Plt Count (150-400) X10^3/uL Neut % (Auto) (50-75) % Lymph % (Auto) (25-40) % [place] % (Auto) (3-14) % Eos % (Auto) (2-4) % Baso % (Auto) (0-2) % Neut # (Auto) (1736-4056) /uL VBG pH 7.48 H (7.33-7.43) VBG pCO2 41.0 L (45-50) mmHg VBG pO2 169 H (35-45) mmHg VBG HCO3 31 H (23-28) mmol/L VBG Total CO2 32 H (24-29) mmol/L VBG O2 Saturation 100 H (70-75) % VBG Base Excess 7.0 H (0-4) mmol/L Sodium (137-145) mmol/L Potassium (3.4-5.1) mmol/L Chloride (98-107) mmol/L Carbon Dioxide (22-32) mmol/L BUN (9-20) mg/dL Creatinine (0.66-1.25) mg/dL Estimated GFR (>60) mL/min BUN/Creatinine Ratio (6-22) Glucose (70-100) mg/dL Lactate (0.7-2.1) mmol/L Calcium (8.4-10.2) mg/dL Phosphorus (2.5-4.5) mg/dL Magnesium (1.6-2.3) mg/dL Total Bilirubin (0.2-1.3) mg/dL AST (17-59) IU/L ALT (21-72) IU/L Alkaline Phosphatase (38-126) U/L Total Protein (6.3-8.2) g/dL Albumin (3.5-5.0) g/dL Globulin (1.7-4.1) g/dL Albumin/Globulin Ratio (1.0-2.8) Lipase (23-300) U/L Urine Color Urine Appearance Urine pH (4.5-8.0) Ur Specific [place] (1.000-1.035) Urine Protein (Negative) Urine Glucose (UA) (Normal) g/dL Urine Ketones (NEGATIVE) Urine Occult Blood (Negative) Urine Nitrate (Negative) Urine Bilirubin (NEGATIVE) Urine Urobilinogen (0.2) E.U./dL Ur Leukocyte Esterase (NEGATIVE) Urine RBC Not Reportable Urine WBC Not Reportable Urine Bacteria Not Reportable Ethyl Alcohol mg/dL Ketones (<0.27) mmol/L Point of Care Testing Glucose POC 141 Point of care testing: Point of Care Testing Glucose POC 141 [facility] Narrative Medical decision making narrative: Patient not in DKA. His blood sugar was greater than 100 upon arrival but did drop below 100. He was able to drink some juice and eat crackers and peanut butter. No signs of infection. Patient stated he felt much better after fluids and eating here in the emergency department. Systolic blood pressures in the 90s. He was able to ambulate and tolerate oral intake. No need for admission to the hospital today. He was given return precautions. He expressed understanding and agreement with plan. Discharge Plan Departure Patient Disposition: Home Clinical Impression: Diabetes mellitus, Hypoglycemia Instructions: Complications of Diabetes (Alternative Therapy), DI for Diabetes Type 1 -- Adult, DI for Hypoglycemia Activity Restrictions/Additional Instructions: continues take all of your medications as directed. You do need to make sure that you are eating appropriately. return to the emergency department for any new or worsening symptoms. Contact your primary care doctor for follow-up. Prescriptions: No Action insulin glargine [Lantus U-100 Insulin] 100 UNIT/1 ML solution 25 u SQ Q DAY Qty: 30 RF: 0 pantoprazole [Protonix] 40 MG tablet,delayed release (DR/EC) 40 mg PO BID Qty: 60 RF: 0 oxycodone-acetaminophen [Percocet] 5-325 mg Tablet 1 tab PO Q6H PRN (Reason: pain) RF: 0 metoclopramide HCl [Reglan] 10 mg Tablet 10 mg PO QID RF: 0 Celexa DAILY RF: 0 Vistaril PO PRN (Reason: Anxiety) RF: 0 amitriptyline PO BEDTIME RF: 0 insulin aspart U-100 [Novolog Flexpen U-100 Insulin] 100 unit/mL Insulin Pen 1 unit subcut AC RF: 0
[2018-01-04 22:55] VITALS: BP 94/66; PULSE 120; RESP 20; TEMP 36.8; O2SAT 99; BMI 19.3
[2018-01-04 23:56] LABS: HEMOLYSIS < 15 (0-50)
[2018-01-04 23:59] LABS: Add Manual Diff / Slide Review NO; Basophils Percent Auto 0.5 % (0-2); Eosinophils Percent Auto 1.2 % (2-4); Hematocrit 40.6 % (41-53); Hemoglobin 12.9 g/dL (13.5-17.5); Lymphocytes Percent Auto 24.3 % (25-40); Mean Corpuscular HGB Conc 31.8 % (30-36); Mean Corpuscular Hemoglobin 24.2 PG (26-34); Mean Corpuscular Volume 76.1 fL (80-100); Monocytes Percent Auto 9.7 % (3-14); Neutrophils Absolute Auto 3900 /uL (3000-5900); Neutrophils Percent Auto 64.3 % (50-75); Platelet Count 307 X10^3/uL (150-400); Red Blood Cell Count 5.34 X10^6/uL (4.5-5.9); Red Cell Distribution Width 16.9 % (11.6-14.8)
[2018-01-05] LABS: Lactate (Lactic Acid) 2.3 mmol/L (0.7-2.1)
[2018-01-05 00:02] LABS: Alanine Aminotransferase 21 IU/L (21-72); Albumin 4.6 g/dL (3.5-5.0); Albumin Globulin Ratio 1.5 (1.0-2.8); Alkaline Phosphatase 84 U/L (38-126); Aspartate Aminotransferase 20 IU/L (17-59); Bilirubin Total 0.2 mg/dL (0.2-1.3); Blood Urea Nitrogen 14 mg/dL (9-20); Calcium 9.6 mg/dL (8.4-10.2); Carbon Dioxide 27 mmol/L (22-32); Chloride 96 mmol/L (98-107); Estimated Glomerular Filt Rate > 60.0 mL/min (>60); Ethanol (ETOH) < 10 mg/dL; Glucose 112 mg/dL (70-100); Lipase 146 U/L (23-300); Magnesium 2.3 mg/dL (1.6-2.3); Phosphorous 5.4 mg/dL (2.5-4.5); Potassium 4.8 mmol/L (3.4-5.1); Sodium 139 mmol/L (137-145); Total Protein 7.6 g/dL (6.3-8.2)
[2018-01-05 00:07] LABS: HCO3 VBG 31 mmol/L (23-28); PO2 VBG 169 mmHg (35-45); Total CO2 VBG 32 mmol/L (24-29); pH VBG 7.48 (7.33-7.43)
[2018-01-05 00:08] LABS: Oxygen Saturation VBG 100 % (70-75)
[2018-01-05] MEDS: SODIUM CHLORIDE 0.9% 1,000 ML 1000 ML IV (00:09)
[2018-01-05] MEDS: HYDROMORPHONE 1 MG INJ 0.5 MG IV (00:10)
[2018-01-05] MEDS: ONDANSETRON 4 MG/2 ML INJ IV (00:10)
[2018-01-05 00:25] LABS: Ketones (Beta-Hydroxybutyrate) 0.14 mmol/L (<0.27)
[2018-01-05] MEDS: PROCHLORPERAZINE 10 MG/2 ML VIAL 5 MG IV (01:00)
--- NOTE | 2018-01-05 01:16 | PC.NURSE ---
pt reports he took his blood sugar several hours before contacting EMS because he felt low, reports bg of 40, increased to 55 per pt after eating. He reports he ate a lot, then fell on his way to the restroom. He states this worsened his chronic mid back pain. EMS reports a BG of 246 on scene. He is vomiting during exam, NSR on monitor, clear lung sounds bilat, abd difusely tender
[2018-01-05 01:30] VITALS: BP 92/59; PULSE 88
--- NOTE | 2018-01-05 01:46 | PC.NURSE ---
He is eating apple juice and peanut butter awais crackers.
[2018-01-05 02:19] VITALS: BP 87/51; PULSE 82; RESP 18; O2SAT 97
[2018-01-05 03:03] VITALS: BP 94/60; PULSE 88
--- NOTE | 2018-01-05 03:04 | PC.NURSE ---
He ambulated around in our ED.gait steady,alert,stated he felt better.
[2018-01-05 03:46] LABS: Reflexed Lactate in 2 Hours Y
== END 2018-01-05 03:23 | disposition home or self-care (01) ==
PROVIDERS: Emergency Provider Emergency Medicine
DX: E10.649 Type 1 diabetes mellitus with hypoglycemia without coma (principal); Z79.4 Long term (current) use of insulin; W18.30XA Fall on same level, unspecified, initial encounter
CPT/HCPCS: 36415; 36591; 80053; 80320; 82009; 82805; 82962; 83605; 83690; 83735; 84100; 85025; 96361; 96374; 96375; 99283; 99284; J0780; J1170; J2405

== ENCOUNTER 2018-10-09 01:34 | Emergency (ER) | payer OTHER, SELFPAY ==
--- NOTE | 2018-10-09 01:46 | DI.RAD.S_ITS ---
PROCEDURE: XR CHEST 1V INDICATIONS: hypoglycemia, altered mental status TECHNIQUE: One view of the chest was acquired. COMPARISON: [facility], , CHEST 1 VIEW, 01/05/2016, 11:49. FINDINGS: Surgical changes and devices: A left neck Angiocath can be seen. Lungs and pleura: An incomplete inspiratory result is noted, causing a crowded appearance to the lung markings. No focal infiltrates are seen. No pneumothorax or significant pleural effusions are seen. Mediastinum: Mediastinal contours appear normal. Heart size is normal. Bones and chest wall: No suspicious bony lesions. Overlying soft tissues appear unremarkable. IMPRESSION: Portable chest within normal limits. Note: No significant discrepancy from the preliminary report. Dictated by: David Schultz M.D. on 10/09/2018 at 7:22 Approved by: David Schultz M.D. on 10/09/2018 at 7:23
--- NOTE | 2018-10-09 01:46 | ED.AMS ---
HPI - Altered Mental Status General Chief Complaint: Diabetic Problem Stated Complaint: Found down, diabetic problem Time Seen by Provider: 10/09/18 01:35 Source: patient and EMS Mode of arrival: EMS Limitations: no limitations History of Present Illness HPI narrative: This is a 28-year-old male was found at his grandmother's house unresponsive. He was last seen normal about 6:00 pm. this evening. It appeared he may have fallen, patient had a little bit of blood on his nose and is complaining a little bit of pain on the side of his neck and low back patient. Patient was found in the kitchen. Patient is a known insulin-dependent diabetic he states he had his NovoLog today, he did not think that he had taken his Lantus. He has not had any dosage changes. He does not think that he took any extra. He does have a history of gastroparesis. He does not think that he has any kidney disease. He states he is not on any blood pressure medications. Patient is visiting his family. He is from [place] originally. He had lunch but does not think that he had dinner. His grandmother told EMS that he had Ramen noodles for dinner. Patient is not on any other oral anti a diabetic medications. He does take Celexa, amitriptyline, Reglan, hydroxyzine and Protonix. Patient states he had ankle surgery in the past but denies any other surgeries. Patient's blood sugar with EMS was 32. He responded immediately to dextrose. Related Data Home Medications Medication Instructions Recorded Confirmed insulin glargine [Lantus U-100 25 u SQ Q DAY #30 01/03/17 12/30/17 Insulin] Celexa DAILY 12/30/17 Vistaril PO PRN 12/30/17 amitriptyline PO BEDTIME 12/30/17 insulin aspart U-100 [Novolog 1 unit SUBCUT AC 12/30/17 12/30/17 Flexpen U-100 Insulin] metoclopramide HCl [Reglan] 10 mg PO QID 12/30/17 12/30/17 oxycodone-acetaminophen [Percocet] 1 tab PO Q6H PRN 12/30/17 12/30/17 Previous Rx's Medication Instructions Recorded pantoprazole [Protonix] 40 mg PO BID #60 01/06/17 Allergies Allergy/AdvReac Type Severity Reaction Status Date / Time aspirin [ASPIRIN] Allergy Unknown MAKES ME Verified 12/29/17 17:27 GO DEAF hydrocodone [HYDROCODONE] AdvReac Intermediate VOMITING Verified 12/29/17 17:27 ibuprofen [IBUPROFEN] AdvReac Intermediate HURTS Verified 12/29/17 17:27 KIDNEYS Review of Systems Review of Systems ROS Unobtainable: All systems reviewed & are unremarkable except as noted in HPI and below Exam Narrative Exam Narrative: GEN: well nourished, pale male, alert and oriented x 3, patient appears to be in no acute distress. HEENT: Atraumatic, pupils are equal round reactive to light, extraocular movements are intact, nares are clear, patient has a little bit of dried blood over the nose but no hemotympanum or active epistaxis, TMs are clear with no fluid, there is no conjunctival pallor. Throat is clear without any exudates, erythema, tonsillar enlargement or uvular deviation HEART: Regular rate and rhythm without murmur, clicks, rubs. LUNGS:Lungs clear to auscultation, no wheezes, rales, crackles, chest moves symmetrically ABD:bowel sounds normal, soft, non-tender, no guarding, rebound, rigidity, no masses noted, no hepatosplenomegaly :No CVA tenderness BACK: No cervical, thoracic or lumbar vertebral point tenderness. Patient has normal range of motion. Patient's gait is gait not tested. Rectal exam is deferred. Muscle strength is 5/5 in upper and lower extremities. 2+ pulses in upper and lower extremities. Patient has normal sensation throughout. MSCL: Non-tender, no muscle atrophy, muscles strength 5/5 upper and lower extremities, full range of motion NEURO:CN 2-12 intact, sensation christi Initial Vital Signs Initial Vital Signs: Vital Signs Temperature 98.9 F 10/09/18 01:49 Pulse Rate 118 H 10/09/18 01:49 Respiratory Rate 20 10/09/18 01:49 Blood Pressure 136/92 H 10/09/18 01:49 Pulse Oximetry 99 10/09/18 01:49 Scores GCS Benjie coma scale eye opening: Spontaneous [place] coma scale verbal response: Orientated Benjie coma scale motor response: Obey commands [place] coma scale total score: 15 Course Orders Ordered: ED Orders 10/09/18 01:46 XR chest 1V Stat 10/09/18 02:10 Complete Blood Count AUTO DIFF Stat Comprehensive Metabolic Panel Stat Ethanol (ETOH) Stat Lactate (Lactic Acid) Stat Procalcitonin Stat 10/09/18 02:50 Urine Microscopic Stat Discontinued Medications Sodium Chloride (Normal Saline 0.9%) 1,000 mls @ 150 mls/hr IV CONT XENA Last Infusion: 10/09/18 04:27 Dose: 150 mls/hr Documented by: Admin: 10/09/18 02:18 Dose: 150 mls/hr Documented by: BRAYDEN Ondansetron HCl (Zofran) 4 mg IV NOW ONE Stop: 10/09/18 02:12 Last Admin: 10/09/18 02:18 Dose: 4 mg Documented by: BRAYDEN Vital Signs Vital signs: Vital Signs - 8 hr 10/09/18 01:49 10/09/18 02:53 10/09/18 04:33 Temperature 98.9 F Pulse Rate 118 H 101 H 110 H Respiratory Rate 20 16 15 Blood Pressure 136/92 H 106/67 Blood Pressure [Right Arm] 127/88 Pulse Oximetry 99 97 98 MDM - Altered Mental Status Lab Data Attestation: I reviewed the patient's lab results. Result diagrams: 10/09/18 02:10 10/09/18 02:10 Labs: Lab Results 10/09/18 10/09/18 10/09/18 Range/Units 02:10 02:10 02:10 WBC 8.6 (4.5-11.0) X10^3/uL RBC 4.31 L (4.5-5.9) X10^6/uL Hgb 10.1 L (13.5-17.5) g/dL Hct 31.1 L (41-53) % MCV 72.3 L (80-100) fL MCH 23.5 L (26-34) PG MCHC 32.6 (30-36) % RDW 16.0 H (11.6-14.8) % Plt Count 359 (150-400) X10^3/uL Neut % (Auto) 73.0 (50-75) % Lymph % (Auto) 15.2 L (25-40) % [place] % (Auto) 10.1 (3-14) % Eos % (Auto) 0.9 L (2-4) % Baso % (Auto) 0.8 (0-2) % Neut # (Auto) 6300 (7388-7582) /uL Lymph # (Auto) 1300 (9420-0746) /uL [place] # (Auto) 900 (0-900) /uL Eos # (Auto) 100 (0-450) /uL Baso # (Auto) 100 (0-100) /uL Sodium 140 (137-145) mmol/L Potassium 3.3 L (3.4-5.1) mmol/L Chloride 105 (98-107) mmol/L Carbon Dioxide 25 (22-32) mmol/L BUN 16 (9-20) mg/dL Creatinine 0.80 (0.66-1.25) mg/dL Estimated GFR > 60.0 (>60) mL/min BUN/Creatinine Ratio 20.0 (6-22) Glucose 94 (70-100) mg/dL Lactate (0.7-2.1) mmol/L Calcium 9.1 (8.4-10.2) mg/dL Total Bilirubin 0.2 (0.2-1.3) mg/dL AST 28 (17-59) IU/L ALT 19 L (21-72) IU/L Alkaline Phosphatase 104 (38-126) U/L Total Protein 7.0 (6.3-8.2) g/dL Albumin 3.7 (3.5-5.0) g/dL Globulin 3.3 (1.7-4.1) g/dL Albumin/Globulin Ratio 1.1 (1.0-2.8) Procalcitonin < 0.05 (<0.5) ng/mL Urine RBC (0-5/HPF) Urine WBC (0-5/HPF) Urine Bacteria (None) Ur Culture Indicated? Ethyl Alcohol < 10 ( - 10) mg/dL 10/09/18 10/09/18 Range/Units 02:10 02:50 WBC (4.5-11.0) X10^3/uL RBC (4.5-5.9) X10^6/uL Hgb (13.5-17.5) g/dL Hct (41-53) % MCV (80-100) fL MCH (26-34) PG MCHC (30-36) % RDW (11.6-14.8) % Plt Count (150-400) X10^3/uL Neut % (Auto) (50-75) % Lymph % (Auto) (25-40) % [place] % (Auto) (3-14) % Eos % (Auto) (2-4) % Baso % (Auto) (0-2) % Neut # (Auto) (4072-6934) /uL Lymph # (Auto) (0143-1613) /uL [place] # (Auto) (0-900) /uL Eos # (Auto) (0-450) /uL Baso # (Auto) (0-100) /uL Sodium (137-145) mmol/L Potassium (3.4-5.1) mmol/L Chloride (98-107) mmol/L Carbon Dioxide (22-32) mmol/L BUN (9-20) mg/dL Creatinine (0.66-1.25) mg/dL Estimated GFR (>60) mL/min BUN/Creatinine Ratio (6-22) Glucose (70-100) mg/dL Lactate 1.2 (0.7-2.1) mmol/L Calcium (8.4-10.2) mg/dL Total Bilirubin (0.2-1.3) mg/dL AST (17-59) IU/L ALT (21-72) IU/L Alkaline Phosphatase (38-126) U/L Total Protein (6.3-8.2) g/dL Albumin (3.5-5.0) g/dL Globulin (1.7-4.1) g/dL Albumin/Globulin Ratio (1.0-2.8) Procalcitonin (<0.5) ng/mL Urine RBC None seen (0-5/HPF) Urine WBC None seen (0-5/HPF) Urine Bacteria None seen (None) Ur Culture Indicated? Cult not indicated Ethyl Alcohol ( - 10) mg/dL Point of Care Testing Glucose POC 135 Urine Dip Bedside Urine Glucose 250 mg/dl Bedside Urine Bilirubin - Negative Bedside Urine Ketone - Negative Urine Specific [place] 1.015 Bedside Urine Occult Blood +/- Bedside Urine pH 6.0 Bedside Urine Protein - Negative Bedside Urine Urobilinogen - Negative Bedside Urine Nitrite - Negative Bedside Urine Leukocytes - Negative Esterase Imaging Data Chest x-ray: My impression: nap. no opacification, infiltrate, effusion, no fx, no pneumothorax noted. Radiologist's impression: MDM Narrative Medical decision making narrative: Patient comes in with hypoglycemic episode, by description he did not have much to eat earlier today. He isn't sure if he took his Lantus today but does think he had his NovoLog. Patient responded immediately to dextrose patient on recheck with EMS was in 200 range and on recheck in our department is 140. Patient complaining of some mild neck pain but able to clinically clear with nexus criteria. Plan for chest x-ray and basic lab work, continue to monitor blood sugar. Patient was given some food here in order to maintain his blood sugar. Patient blood sugar on repeat is 135, he was able to eat food and has some nausea but no vomiting. Patient by description has minimal dinner and along with his insuling was likely contributing factor to hypoglycemia, no other acute cause found for hypoglycemia today. Plan for d/c home with patient to resume normal dosing with regular snacks and meals. Patient has been alert without additional issues in the department and no further hypoglycemia while in the department. Discharge Plan Departure Patient Disposition: Home Clinical Impression: Hypoglycemia Discharge Date/Time: 10/09/18 04:57 Activity Restrictions/Additional Instructions: You may continue your home medications as prescribed. Return to your normal dosing schedule this morning. Make sure that you are eating regular meals and snacks while taking your insulin to avoid hypoglycemia. Return to the Emergency Department if you are having worsening symptoms, fevers greater than 100.4 F, altered mental status, recurrent hypoglycemia, new chest pain, shortness of breath, persistent vomiting, lightheadedness, passing out or other new or concerning symptoms. Prescriptions: No Action insulin glargine [Lantus U-100 Insulin] 100 UNIT/1 ML solution 25 u SQ Q DAY Qty: 30 RF: 0 pantoprazole [Protonix] 40 MG tablet,delayed release (DR/EC) 40 mg PO BID Qty: 60 RF: 0 oxycodone-acetaminophen [Percocet] 5-325 mg Tablet 1 tab PO Q6H PRN (Reason: pain) RF: 0 metoclopramide HCl [Reglan] 10 mg Tablet 10 mg PO QID RF: 0 Celexa DAILY RF: 0 Vistaril PO PRN (Reason: Anxiety) RF: 0 amitriptyline PO BEDTIME RF: 0 insulin aspart U-100 [Novolog Flexpen U-100 Insulin] 100 unit/mL Insulin Pen 1 unit subcut AC RF: 0
[2018-10-09 01:49] VITALS: BP 136/92; PULSE 118; RESP 20; TEMP 37.2; O2SAT 99
[2018-10-09] MEDS: SODIUM CHLORIDE 0.9% 1,000 ML 150 ML IV (02:18)
[2018-10-09] MEDS: ONDANSETRON 4 MG/2 ML INJ IV (02:18)
[2018-10-09 02:22] LABS: Add Manual Diff / Slide Review NO; Basophils Absolute Auto 100 /uL (0-100); Basophils Percent Auto 0.8 % (0-2); Eosinophils Absolute Auto 100 /uL (0-450); Eosinophils Percent Auto 0.9 % (2-4); Hematocrit 31.1 % (41-53); Hemoglobin 10.1 g/dL (13.5-17.5); Lymphocytes Absolute Auto 1300 /uL (1100-4500); Lymphocytes Percent Auto 15.2 % (25-40); Mean Corpuscular HGB Conc 32.6 % (30-36); Mean Corpuscular Hemoglobin 23.5 PG (26-34); Mean Corpuscular Volume 72.3 fL (80-100); Monocytes Absolute Auto 900 /uL (0-900); Monocytes Percent Auto 10.1 % (3-14); Neutrophils Absolute Auto 6300 /uL (1500-7000); Platelet Count 359 X10^3/uL (150-400); Red Blood Cell Count 4.31 X10^6/uL (4.5-5.9); White Blood Cell Count 8.6 X10^3/uL (4.5-11.0)
[2018-10-09 02:30] LABS: Lactate (Lactic Acid) 1.2 mmol/L (0.7-2.1)
[2018-10-09 02:34] LABS: Alanine Aminotransferase 19 IU/L (21-72); Albumin 3.7 g/dL (3.5-5.0); Albumin Globulin Ratio 1.1 (1.0-2.8); Alkaline Phosphatase 104 U/L (38-126); Aspartate Aminotransferase 28 IU/L (17-59); Bilirubin Total 0.2 mg/dL (0.2-1.3); Blood Urea Nitrogen 16 mg/dL (9-20); Calcium 9.1 mg/dL (8.4-10.2); Carbon Dioxide 25 mmol/L (22-32); Chloride 105 mmol/L (98-107); Estimated Glomerular Filt Rate > 60.0 mL/min (>60); Ethanol (ETOH) < 10 mg/dL; Globulin 3.3 g/dL (1.7-4.1); Glucose 94 mg/dL (70-100); HEMOLYSIS < 15 (0-50); Potassium 3.3 mmol/L (3.4-5.1); Sodium 140 mmol/L (137-145)
[2018-10-09 02:48] LABS: Procalcitonin < 0.05 ng/mL (<0.5)
[2018-10-09 02:52] LABS: Bacteria Urine None Seen; RBC Urine None Seen (0-5/HPF); WBC Urine None Seen (0-5/HPF)
[2018-10-09 02:53] VITALS: BP 127/88; PULSE 101; RESP 16; O2SAT 97
[2018-10-09 03:05] LABS: Culture Indicated Urine Cult Not Indicated
--- NOTE | 2018-10-09 04:28 | PC.NURSE ---
Pt states he has a ride coming to pick him up. Lines and tubes disconnected. Pt dressing himself. Pt given crackers and peanut butter.
[2018-10-09 04:33] VITALS: BP 106/67; PULSE 110; RESP 15; O2SAT 98
== END 2018-10-09 04:57 | disposition home or self-care (01) ==
PROVIDERS: Emergency Provider Emergency Medicine
DX: E11.649 Type 2 diabetes mellitus with hypoglycemia without coma (principal); Z79.4 Long term (current) use of insulin
CPT/HCPCS: 71045; 80053; 80320; 81003; 81015; 82962; 83605; 84145; 85025; 96361; 96374; 99283; 99284; J2405

== ENCOUNTER 2020-01-15 17:14 | Emergency (ER) | payer OTHER, SELFPAY ==
[2020-01-15] VITALS (22 sets, daily range): BP systolic 98–149; BP diastolic 64–99; PULSE 87–105; RESP 12–26; TEMP 36.8; O2SAT 93–99; BMI 21.5
--- NOTE | 2020-01-15 18:24 | ED.ABDPAIN ---
HPI - Abdominal Pain General Chief Complaint: Abdominal Pain Stated Complaint: Gastroparesis and Acid Reflux Acting Up Time Seen by Provider: 01/15/20 18:23 Source: patient Mode of arrival: Ambulatory Limitations: no limitations History of Present Illness HPI narrative: 29-year-old male nonsmoker with history of insulin-dependent diabetes and gastroparesis presents with a chief complaint of a few days of significant epigastric pain with nausea and vomiting. He states it feels quite similar to prior episodes gastroparesis. He denies any fever or chills. He denies any runny nose, sore throat, cough or exposure to known COVID. He denies any change in his diabetic regimen. His at home medications for the treatment of gastroparesis have not helped and include Zofran and Ativan. He has also tried Pepto-Bismol. His pain is crampy in nature and he denies any provocation, palliation or radiation MD complaint: abdominal pain Onset (ago): day(s) Pain Consistency: constant Location: periumbilical Severity: moderate Quality: cramping Radiation: none Relieving factors: nothing Exacerbating factors: nothing Associated symptoms: nausea, vomiting and diarrhea Related Data Home Medications Medication Instructions Recorded Confirmed insulin glargine [Lantus U-100 25 u SQ Q DAY #30 01/03/17 12/30/17 Insulin] Celexa DAILY 12/30/17 Vistaril PO PRN 12/30/17 amitriptyline PO BEDTIME 12/30/17 insulin aspart U-100 [Novolog 1 unit SUBCUT AC 12/30/17 12/30/17 Flexpen U-100 Insulin] metoclopramide HCl [Reglan] 10 mg PO QID 12/30/17 12/30/17 oxycodone-acetaminophen [Percocet] 1 tab PO Q6H PRN 12/30/17 12/30/17 Previous Rx's Medication Instructions Recorded pantoprazole [Protonix] 40 mg PO BID #60 01/06/17 Allergies Allergy/AdvReac Type Severity Reaction Status Date / Time aspirin [ASPIRIN] Allergy Unknown MAKES ME Verified 12/29/17 17:27 GO DEAF hydrocodone [HYDROCODONE] AdvReac Intermediate VOMITING Verified 12/29/17 17:27 ibuprofen [IBUPROFEN] AdvReac Intermediate HURTS Verified 12/29/17 17:27 KIDNEYS Review of Systems Constitutional Constitutional: Denies chills, Denies fatigue, Denies fever(s), Denies frequent falls, Denies lethargy and Denies weakness Eyes Eyes: Denies change in vision, Denies eye discharge, Denies irritation and Denies loss of vision ENT Ears, Nose, Mouth, and Throat: Denies change in voice, Denies dizziness, Denies neck pain, Denies sore throat and Denies throat swelling Cardiovascular Cardiovascular: Denies chest pain, Denies irregular heart rhythm, Denies lightheadedness, Denies palpitations, Denies dyspnea, Denies dyspnea on exertion and Denies orthopnea Respiratory Respiratory: Denies cough, Denies dyspnea, Denies dyspnea on exertion and Denies wheezing Gastrointestinal Gastrointestinal: Reports abdominal pain, Denies change in bowel habits, Reports diarrhea, Reports nausea and Reports vomiting Musculoskeletal Musculoskeletal: Denies neck pain and Denies numbness Integumentary/Breasts Skin/Breast: Denies pruritus, Denies erythema, Denies rash and Denies wounds Neurologic Neurologic: Denies behavioral changes, Denies confusion, Denies dizziness, Denies frequent falls, Denies loss of vision, Denies numbness and Denies weakness Psychiatric Psychiatric: Denies anxiety, Denies behavioral changes, Denies confusion, Denies depression, Denies homicidal ideation and Denies suicidal ideation Endocrine Endocrine: Denies fatigue, Denies flushing and Denies palpitations Hematologic/Lymphatic Hematologic/Lymphatic: Denies easy bruising Allergic/Immunologic Allergic/Immunologic: Denies urticaria, Denies throat swelling and Denies wheezing Patient History Medical History (Updated 01/15/20 @ 22:37 by Mike Uribe DO) Bipolar disorder with depression Blurry vision, bilateral Diabetes type 1, uncontrolled Diabetic gastroparesis Diabetic neuropathy History of MRSA infection History of pneumonia Marijuana use Nausea and vomiting Surgical History (Updated 10/09/18 @ 01:54 by Monika Baugh DO) No pertinent past surgical history Family History (Updated 12/29/17 @ 21:26 by DESIRE Tineo) Mother No known health problems Father No known health problems Social History household members: family Smoking Status: Never smoker Smoking Status: Never smoker alcohol intake frequency: other Substance Use Type: marijuana Exam Narrative Exam Narrative: GENERAL: [29] year old patient appears stated age. Well-nourished, well-developed patient, in mild distress. HEAD: Atraumatic. Normocephalic. EYES: Pupils equal round and reactive. Extraocular motions intact. No scleral icterus. No injection or drainage. ENT: Nose without bleeding, purulent drainage. Throat without erythema, tonsillar hypertrophy or exudate. Airway patent. NECK: Trachea midline. Non tender CARDIOVASCULAR: Regular rate and rhythm without murmurs, gallops, or rubs. RESPIRATORY: Clear to auscultation. Breath sounds equal bilaterally. No wheezes, rales, or rhonchi. GASTROINTESTINAL: Abdomen soft, mild generalized tenderness, nondistended. EXTREMITIES: No edema or joint tenderness. BACK: Nontender without deformity or crepitance. No flank tenderness. NEURO: AOx3. SKIN: No rash or erythema of visible areas Initial Vital Signs Initial Vital Signs: Vital Signs Temperature 98.3 F 01/15/20 17:21 Pulse Rate 103 H 01/15/20 17:21 Respiratory Rate 16 01/15/20 17:21 Blood Pressure 109/72 01/15/20 17:21 Pulse Oximetry 97 01/15/20 17:21 Course Orders Ordered: Discontinued Medications Dextrose (Dextrose 50 % In Water 25 Gm/50 Ml Syringe) 25 gm IV NOW ONE Stop: 01/15/20 20:10 Last Admin: 01/15/20 20:14 Dose: 25 gm Documented by: COLUMBA Hydromorphone HCl (Hydromorphone 0.5 Mg Inj) 0.5 mg IV NOW ONE Stop: 01/15/20 20:06 Last Admin: 01/15/20 20:16 Dose: 0.5 mg Documented by: COLUMBA Lactated Ringer's (Lactated Ringers) 1,000 mls @ 1,000 mls/hr IV BOLUS ONE Stop: 01/15/20 19:26 Last Infusion: 01/15/20 20:16 Dose: 1,000 mls/hr Documented by: Admin: 01/15/20 18:41 Dose: 1,000 mls/hr Documented by: COLUMBA Metoclopramide HCl (Metoclopramide 10 Mg/2 Ml Inj) 10 mg IV NOW ONE Stop: 01/15/20 18:28 Last Admin: 01/15/20 18:58 Dose: 10 mg Documented by: COLUMBA Ondansetron HCl (Ondansetron 4 Mg/2 Ml Inj) 4 mg IV Q4HR PRN PRN Reason: Nausea And Vomiting Last Admin: 01/15/20 20:14 Dose: 4 mg Documented by: COLUMBA Pantoprazole Sodium (Pantoprazole 40 Mg Vial) 40 mg IV NOW ONE Stop: 01/15/20 18:28 Last Admin: 01/15/20 18:41 Dose: 40 mg Documented by: COLUMBA Vital Signs Vital signs: Vital Signs - 8 hr 01/15/20 20:00 01/15/20 20:19 01/15/20 20:22 Pulse Rate 101 H 105 H 102 H Respiratory Rate 22 17 15 Blood Pressure Pulse Oximetry 99 99 99 01/15/20 20:30 01/15/20 20:46 01/15/20 21:00 Pulse Rate 97 H 90 88 Respiratory Rate 12 14 13 Blood Pressure 149/98 H 140/90 Pulse Oximetry 93 97 96 01/15/20 21:01 01/15/20 21:15 01/15/20 21:30 Pulse Rate 88 88 87 Respiratory Rate 14 13 12 Blood Pressure 132/64 131/71 125/71 Pulse Oximetry 97 97 97 01/15/20 21:45 01/15/20 22:00 01/15/20 22:01 Pulse Rate 97 H 98 H 98 H Respiratory Rate 12 22 15 Blood Pressure 113/69 125/78 Pulse Oximetry 96 96 96 01/15/20 22:15 01/15/20 22:30 01/15/20 22:46 Pulse Rate 97 H 98 H 96 H Respiratory Rate 16 14 13 Blood Pressure 130/93 H 133/99 H 133/99 H Pulse Oximetry 97 98 98 MDM - Abdominal Pain Lab Data Result diagrams: 01/15/20 18:16 01/15/20 18:50 Labs: Lab Results 01/15/20 01/15/20 01/15/20 Range/Units 18:16 18:46 18:50 WBC 7.0 (4.5-11.0) X10^3/uL RBC 5.16 (4.5-5.9) X10^6/uL Hgb 14.4 (13.5-17.5) g/dL Hct 43.6 (41-53) % MCV 84.4 (80-100) fL MCH 27.9 (26-34) PG MCHC 33.0 (30-36) % RDW 14.1 (11.6-14.8) % Plt Count 256 (150-400) X10^3/uL Neut % (Auto) 67.4 (50-75) % Lymph % (Auto) 23.7 L (25-40) % [place] % (Auto) 7.5 (3-14) % Eos % (Auto) 0.5 L (2-4) % Baso % (Auto) 0.9 (0-2) % Neut # (Auto) 4700 (3453-5726) /uL Lymph # (Auto) 1700 (1550-7253) /uL [place] # (Auto) 500 (0-900) /uL Eos # (Auto) 0 (0-450) /uL Baso # (Auto) 100 (0-100) /uL PT 11.6 (10.1-12.7) SECONDS INR 1.0 (0.9-1.3) APTT 35 D (26.4-36.2) SECONDS VBG pH 7.41 (7.33-7.43) VBG pCO2 43.2 L (45-50) mmHg VBG pO2 35 (35-45) mmHg VBG HCO3 27 (23-28) mmol/L VBG Total CO2 28 (24-29) mmol/L VBG O2 Saturation 67 L (70-75) % VBG Base Excess 2.0 (0-4) mmol/L Sodium (137-145) mmol/L Potassium (3.4-5.1) mmol/L Chloride (98-107) mmol/L Carbon Dioxide (22-32) mmol/L BUN (9-20) mg/dL Creatinine (0.66-1.25) mg/dL Estimated GFR (>60) mL/min BUN/Creatinine Ratio (6-22) Glucose (70-100) mg/dL Calcium (8.4-10.2) mg/dL Total Bilirubin (0.2-1.3) mg/dL AST (17-59) IU/L ALT (<50) IU/L Alkaline Phosphatase (38-126) U/L Total Protein (6.3-8.2) g/dL Albumin (3.5-5.0) g/dL Globulin (1.7-4.1) g/dL Albumin/Globulin Ratio (1.0-2.8) Lipase (23-300) U/L 01/15/20 Range/Units 18:50 WBC (4.5-11.0) X10^3/uL RBC (4.5-5.9) X10^6/uL Hgb (13.5-17.5) g/dL Hct (41-53) % MCV (80-100) fL MCH (26-34) PG MCHC (30-36) % RDW (11.6-14.8) % Plt Count (150-400) X10^3/uL Neut % (Auto) (50-75) % Lymph % (Auto) (25-40) % [place] % (Auto) (3-14) % Eos % (Auto) (2-4) % Baso % (Auto) (0-2) % Neut # (Auto) (0158-2572) /uL Lymph # (Auto) (1357-2433) /uL [place] # (Auto) (0-900) /uL Eos # (Auto) (0-450) /uL Baso # (Auto) (0-100) /uL PT (10.1-12.7) SECONDS INR (0.9-1.3) APTT (26.4-36.2) SECONDS VBG pH (7.33-7.43) VBG pCO2 (45-50) mmHg VBG pO2 (35-45) mmHg VBG HCO3 (23-28) mmol/L VBG Total CO2 (24-29) mmol/L VBG O2 Saturation (70-75) % VBG Base Excess (0-4) mmol/L Sodium 140 (137-145) mmol/L Potassium 4.4 (3.4-5.1) mmol/L Chloride 106 (98-107) mmol/L Carbon Dioxide 29 (22-32) mmol/L BUN 18 (9-20) mg/dL Creatinine 0.99 (0.66-1.25) mg/dL Estimated GFR > 60.0 (>60) mL/min BUN/Creatinine Ratio 18.2 (6-22) Glucose 89 (70-100) mg/dL Calcium 9.5 (8.4-10.2) mg/dL Total Bilirubin 0.5 (0.2-1.3) mg/dL AST 41 (17-59) IU/L ALT 26 (<50) IU/L Alkaline Phosphatase 79 (38-126) U/L Total Protein 8.1 (6.3-8.2) g/dL Albumin 4.5 (3.5-5.0) g/dL Globulin 3.6 (1.7-4.1) g/dL Albumin/Globulin Ratio 1.3 (1.0-2.8) Lipase 38 (23-300) U/L Point of care testing: Point of Care Testing Glucose POC 197 MDM Narrative Medical decision making narrative: IDDM with pain, N/V consistent with prior episodes of gastroparesis. No change in meds or recent illness. No evidence of DKA. No signs of sepsis. Improvement with above stated therapies. Return recautions given, questions answered to his apparent satisfaction. Discharge Plan Departure Patient Disposition: Home Clinical Impression: Nausea & vomiting Qualifiers: Vomiting type: unspecified Vomiting Intractability: non-intractable Qualified Code(s): R11.2 - Nausea with vomiting, unspecified Instructions: DI for Abdominal Pain-Adult Activity Restrictions/Additional Instructions: *You have been diagnosed with [ abdominal pain with vomiting, likely gastroparesis ] *What to do: *Take medications as directed *Follow up with your primary care provider in 2-3 days, call for an appointment. Let them know you were seen in the Emergency Department and that we ask that you be seen in follow up *Return to ER if you should have any new, worsening or concerning symptoms Prescriptions: No Action insulin glargine [Lantus U-100 Insulin] 100 UNIT/1 ML solution 25 u SQ Q DAY Qty: 30 RF: 0 pantoprazole [Protonix] 40 MG tablet,delayed release (DR/EC) 40 mg PO BID Qty: 60 RF: 0 oxycodone-acetaminophen [Percocet] 5-325 mg Tablet 1 tab PO Q6H PRN (Reason: pain) RF: 0 metoclopramide HCl [Reglan] 10 mg Tablet 10 mg PO QID RF: 0 Celexa DAILY RF: 0 Vistaril PO PRN (Reason: Anxiety) RF: 0 amitriptyline PO BEDTIME RF: 0 insulin aspart U-100 [Novolog Flexpen U-100 Insulin] 100 unit/mL Insulin Pen 1 unit subcut AC RF: 0
[2020-01-15 18:27] LABS: Add Manual Diff / Slide Review NO; Basophils Absolute Auto 100 /uL (0-100); Basophils Percent Auto 0.9 % (0-2); Eosinophils Absolute Auto 0 /uL (0-450); Eosinophils Percent Auto 0.5 % (2-4); Hematocrit 43.6 % (41-53); Hemoglobin 14.4 g/dL (13.5-17.5); Lymphocytes Absolute Auto 1700 /uL (1100-4500); Lymphocytes Percent Auto 23.7 % (25-40); Mean Corpuscular Hemoglobin 27.9 PG (26-34); Mean Corpuscular Volume 84.4 fL (80-100); Monocytes Absolute Auto 500 /uL (0-900); Monocytes Percent Auto 7.5 % (3-14); Neutrophils Absolute Auto 4700 /uL (1500-7000); Neutrophils Percent Auto 67.4 % (50-75); Platelet Count 256 X10^3/uL (150-400); Red Blood Cell Count 5.16 X10^6/uL (4.5-5.9); Red Cell Distribution Width 14.1 % (11.6-14.8)
[2020-01-15] MEDS: LACTATED RINGERS 1,000 ML 1000 ML IV (18:41)
[2020-01-15] MEDS: PANTOPRAZOLE 40 MG VIAL IV (18:41)
[2020-01-15 18:54] LABS: HCO3 VBG 27 mmol/L (23-28); Oxygen Saturation VBG 67 % (70-75); PCO2 VBG 43.2 mmHg (45-50); PO2 VBG 35 mmHg (35-45); Total CO2 VBG 28 mmol/L (24-29); pH VBG 7.41 (7.33-7.43)
[2020-01-15] MEDS: METOCLOPRAMIDE 10 MG/2 ML INJ IV (18:58)
[2020-01-15 19:09] LABS: Prothrombin Time 11.6 SECONDS (10.1-12.7)
[2020-01-15 19:12] LABS: PTT Partial Thromboplastin Tim 35 SECONDS (26.4-36.2)
[2020-01-15 19:13] LABS: Alanine Aminotransferase 26 IU/L (<50); Albumin 4.5 g/dL (3.5-5.0); Albumin Globulin Ratio 1.3 (1.0-2.8); Alkaline Phosphatase 79 U/L (38-126); Aspartate Aminotransferase 41 IU/L (17-59); BUN Creatinine Ratio 18.2 (6-22); Bilirubin Total 0.5 mg/dL (0.2-1.3); Blood Urea Nitrogen 18 mg/dL (9-20); Calcium 9.5 mg/dL (8.4-10.2); Carbon Dioxide 29 mmol/L (22-32); Chloride 106 mmol/L (98-107); Estimated Glomerular Filt Rate > 60.0 mL/min (>60); Globulin 3.6 g/dL (1.7-4.1); Glucose 89 mg/dL (70-100); HEMOLYSIS < 15 (0-50); Lipase 38 U/L (23-300); Potassium 4.4 mmol/L (3.4-5.1); Sodium 140 mmol/L (137-145); Total Protein 8.1 g/dL (6.3-8.2)
[2020-01-15] MEDS: ONDANSETRON 4 MG/2 ML INJ IV (20:14)
[2020-01-15] MEDS: DEXTROSE 50 % IN WATER 25 GM/50 ML SYRINGE IV (20:14)
[2020-01-15] MEDS: HYDROMORPHONE 0.5 MG INJ IV (20:16)
--- NOTE | 2020-01-15 20:39 | PC.NURSE ---
Took pt blood glucose stated less than 35
== END 2020-01-15 22:48 | disposition home or self-care (01) ==
PROVIDERS: Emergency Medicine; Emergency Provider Emergency Medicine
DX: R11.2 Nausea with vomiting, unspecified (principal); E10.43 Type 1 diabetes mellitus with diabetic autonomic (poly)neuropathy; K31.84 Gastroparesis; Z79.4 Long term (current) use of insulin; R10.13 Epigastric pain
CPT/HCPCS: 36415; 80053; 82805; 82962; 83690; 85025; 85610; 85730; 93005; 93010; 96361; 96374; 96375; 99283; 99284; C9113; J1170; J2405; J2765

== ENCOUNTER 2020-02-09 03:56 | Inpatient (IN) | payer OTHER, SELFPAY ==
[2020-02-09] VITALS (16 sets, daily range): BP systolic 119–192; BP diastolic 75–110; PULSE 103–115; RESP 17–20; TEMP 36.4–37.7; O2SAT 97–100; BMI 22.9
--- NOTE | 2020-02-09 04:06 | ED.NAVMDI ---
HPI - Nausea/Vomiting/Diarrhea General Chief complaint: Abdominal Pain Stated complaint: Stomach and back pain, vomiting x1 day Time Seen by Provider: 02/09/20 04:05 Source: patient and old records reviewed Mode of arrival: Ambulatory Limitations: no limitations History of Present Illness HPI Narrative: This is a 29-year-old male who comes emergency department with complaint of elevated glucose in the 400 range last night. Patient states he started developing abdominal pain, nausea and vomiting at that time. He states he has been able to keep his home medications down but has continued to vomit. Patient denies fevers, denies cold, cough or congestion. He denies any chest pain or shortness of breath. He does have abdominal pain. He denies any diarrhea constipation. He has been urinating regularly but denies polyuria, frequency or dysuria. He denies any dark-colored urine. Patient does have a history of gastroparesis as well as prior episodes of DKA. He takes multiple medications including insulin and lisinopril. He states lisinopril is for hypertension. Patient states the majority of his care has recently been in [place] but he has been visiting the area. He does have a history of bipolar. He denies any depression at this time. Denies tobacco. Related Data Home Medications Medication Instructions Recorded Confirmed insulin glargine [Lantus U-100 25 u SQ Q DAY #30 01/03/17 12/30/17 Insulin] Celexa DAILY 12/30/17 Vistaril PO PRN 12/30/17 amitriptyline PO BEDTIME 12/30/17 insulin aspart U-100 [Novolog 1 unit SUBCUT AC 12/30/17 12/30/17 Flexpen U-100 Insulin] metoclopramide HCl [Reglan] 10 mg PO QID 12/30/17 12/30/17 oxycodone-acetaminophen [Percocet] 1 tab PO Q6H PRN 12/30/17 12/30/17 Previous Rx's Medication Instructions Recorded pantoprazole [Protonix] 40 mg PO BID #60 01/06/17 Allergies Allergy/AdvReac Type Severity Reaction Status Date / Time aspirin [ASPIRIN] Allergy Unknown MAKES ME Verified 12/29/17 17:27 GO DEAF hydrocodone [HYDROCODONE] AdvReac Intermediate VOMITING Verified 12/29/17 17:27 ibuprofen [IBUPROFEN] AdvReac Intermediate HURTS Verified 12/29/17 17:27 KIDNEYS Review of Systems Review of Systems ROS Unobtainable: All systems reviewed & are unremarkable except as noted in HPI and below Patient History Medical History (Updated 02/09/20 @ 06:07 by Monika Baugh DO) Bipolar disorder with depression Blurry vision, bilateral Diabetes type 1, uncontrolled Diabetic gastroparesis Diabetic neuropathy History of MRSA infection History of pneumonia Marijuana use Nausea and vomiting Surgical History (Updated 10/09/18 @ 01:54 by Monika Baugh DO) No pertinent past surgical history Family History (Updated 12/29/17 @ 21:26 by DESIRE Tineo) Mother No known health problems Father No known health problems Social History household members: family Smoking Status: Never smoker Smoking Status: Never smoker alcohol intake frequency: other Substance Use Type: marijuana Exam Narrative Exam Narrative: GENERAL: Alert and oriented x three, pale, well-appearing male HEENT: Head normocephalic, atraumatic, EOMI, pupils reactive, face symmetric, moist mucous membranes NECK: Supple, full range of motion CARDIOVASCULAR: Regular rate and rhythm without murmurs, rubs or gallops. RESPIRATORY: Breath sounds equal bilaterally, no wheezes rales or rhonchi. ABDOMEN: Soft, nontender. Normoactive bowel sounds all 4 quadrants. No guarding or rebound, rigidity, no mass : No CVA tenderness EXTREMITIES: Normal range of motion, no clubbing or edema. Neurovascularly intact NEUROLOGICAL: Cranial nerves II through XII grossly intact. Moving all extremities SKIN: Warm, dry, no petechiae, no rashes or lesions. Initial Vital Signs Initial Vital Signs: Vital Signs Pulse Rate 107 H 02/09/20 04:04 Blood Pressure 192/102 H 02/09/20 04:04 Pulse Oximetry 98 02/09/20 04:04 Course Orders Ordered: ED Orders 02/09/20 04:23 Venous Blood Gas Stat 02/09/20 04:25 Blood Culture Stat Complete Blood Count AUTO DIFF Stat Comprehensive Metabolic Panel Stat Ketones (Beta-Hydroxybutyrate) Stat Lactate (Lactic Acid) Stat Lipase Stat Procalcitonin Stat 02/09/20 05:20 COVID19 Stat Sodium Chloride (Normal Saline 0.9%) 1,000 mls @ 1,000 mls/hr IV BOLUS ONE Stop: 02/09/20 07:08 Last Admin: 02/09/20 06:20 Dose: 1,000 mls/hr Documented by: KIMBERLY Discontinued Medications Hydromorphone HCl (Hydromorphone 0.5 Mg Inj) 0.5 mg IV NOW ONE Stop: 02/09/20 04:46 Last Admin: 02/09/20 05:07 Dose: 0.5 mg Documented by: KIMBERLY Sodium Chloride (Normal Saline 0.9%) 1,000 mls @ 1,000 mls/hr IV BOLUS ONE Stop: 02/09/20 05:15 Last Infusion: 02/09/20 06:20 Dose: 0 mls/hr Documented by: Admin: 02/09/20 04:27 Dose: 1,000 mls/hr Documented by: KIMBERLY Insulin Human Regular (Insulin Regular 100 Unit/Ml 3 Ml Vial) 10 unit SUBCUT NOW ONE Stop: 02/09/20 06:09 Last Admin: 02/09/20 06:21 Dose: 10 unit Documented by: KIMBERLY Cosigned by: DOMINIQUE Ondansetron HCl (Ondansetron 4 Mg/2 Ml Inj) 4 mg IV NOW ONE Stop: 02/09/20 04:17 Last Admin: 02/09/20 04:26 Dose: 4 mg Documented by: KIMBERLY Pantoprazole Sodium (Pantoprazole 40 Mg Vial) 80 mg IV NOW ONE Stop: 02/09/20 04:46 Last Admin: 02/09/20 05:07 Dose: 80 mg Documented by: KIMBERLY Consultations Consultation #1: Case discussed with LUPE Fu who accepts. Patient has all components of DKA except for Acidosis. Plan to continue fluids and cutaneous emphysema at this time. He does not appear to have sepsis. Procalcitonin is negative. He does have a history gastroparesis was given pain medications. He also appears to have acute kidney injury at this time. Patient has not given a urine sample yet. COVID swab is negative. Patient had vomiting prior to arrival but has not had any of the department. He did receive Zofran. He also received a dose of Dilaudid for his abdominal pain. Vital Signs Vital signs: Vital Signs - 8 hr 02/09/20 04:04 02/09/20 04:05 02/09/20 04:30 Temperature 97.6 F Pulse Rate 107 H 106 H 108 H Respiratory Rate 17 Blood Pressure 192/102 H 192/102 H Pulse Oximetry 98 99 100 02/09/20 05:00 02/09/20 05:08 Temperature Pulse Rate 104 H 105 H Respiratory Rate Blood Pressure 161/103 H Pulse Oximetry 100 98 MDM - Nausea/Vomiting/Diarrhea Lab Data Attestation: I reviewed the patient's lab results. Result diagrams: 02/09/20 04:25 02/09/20 04:25 Labs: Lab Results 02/09/20 02/09/20 02/09/20 Range/Units 04:23 04:25 04:25 WBC 13.7 H (4.5-11.0) X10^3/uL RBC 5.02 (4.5-5.9) X10^6/uL Hgb 13.8 (13.5-17.5) g/dL Hct 42.5 (41-53) % MCV 84.7 (80-100) fL MCH 27.5 (26-34) PG MCHC 32.4 (30-36) % RDW 13.9 (11.6-14.8) % Plt Count 232 (150-400) X10^3/uL Neut % (Auto) 90.8 H (50-75) % Lymph % (Auto) 6.6 L (25-40) % [place] % (Auto) 2.4 L (3-14) % Eos % (Auto) 0.0 L (2-4) % Baso % (Auto) 0.2 (0-2) % Neut # (Auto) 69390 H (3846-1819) /uL Lymph # (Auto) 900 L (2660-6309) /uL [place] # (Auto) 300 (0-900) /uL Eos # (Auto) 0 (0-450) /uL Baso # (Auto) 0 (0-100) /uL VBG pH 7.43 (7.33-7.43) VBG pCO2 28.4 L (45-50) mmHg VBG pO2 94 H (35-45) mmHg VBG HCO3 19 L (23-28) mmol/L VBG Total CO2 20 L (24-29) mmol/L VBG O2 Saturation 98 H (70-75) % VBG Base Excess -6.0 L (0-4) mmol/L Sodium (137-145) mmol/L Potassium (3.4-5.1) mmol/L Chloride (98-107) mmol/L Carbon Dioxide (22-32) mmol/L BUN (9-20) mg/dL Creatinine (0.66-1.25) mg/dL Estimated GFR (>60) mL/min BUN/Creatinine Ratio (6-22) Glucose (70-100) mg/dL Lactate (0.7-2.1) mmol/L Calcium (8.4-10.2) mg/dL Total Bilirubin (0.2-1.3) mg/dL AST (17-59) IU/L ALT (<50) IU/L Alkaline Phosphatase (38-126) U/L Total Protein (6.3-8.2) g/dL Albumin (3.5-5.0) g/dL Globulin (1.7-4.1) g/dL Albumin/Globulin Ratio (1.0-2.8) Lipase (23-300) U/L Procalcitonin < 0.05 (<0.5) ng/mL Ketones (<0.27) mmol/L SARS-CoV-2 (PCR) (Negative) 02/09/20 02/09/20 02/09/20 Range/Units 04:25 04:25 05:20 WBC (4.5-11.0) X10^3/uL RBC (4.5-5.9) X10^6/uL Hgb (13.5-17.5) g/dL Hct (41-53) % MCV (80-100) fL MCH (26-34) PG MCHC (30-36) % RDW (11.6-14.8) % Plt Count (150-400) X10^3/uL Neut % (Auto) (50-75) % Lymph % (Auto) (25-40) % [place] % (Auto) (3-14) % Eos % (Auto) (2-4) % Baso % (Auto) (0-2) % Neut # (Auto) (7191-3410) /uL Lymph # (Auto) (2728-3757) /uL [place] # (Auto) (0-900) /uL Eos # (Auto) (0-450) /uL Baso # (Auto) (0-100) /uL VBG pH (7.33-7.43) VBG pCO2 (45-50) mmHg VBG pO2 (35-45) mmHg VBG HCO3 (23-28) mmol/L VBG Total CO2 (24-29) mmol/L VBG O2 Saturation (70-75) % VBG Base Excess (0-4) mmol/L Sodium 132 L (137-145) mmol/L Potassium 5.2 H (3.4-5.1) mmol/L Chloride 97 L (98-107) mmol/L Carbon Dioxide 16 L (22-32) mmol/L BUN 41 H (9-20) mg/dL Creatinine 1.86 H (0.66-1.25) mg/dL Estimated GFR 43.5 L (>60) mL/min BUN/Creatinine Ratio 22.0 (6-22) Glucose 455 H (70-100) mg/dL Lactate 1.6 (0.7-2.1) mmol/L Calcium 9.7 (8.4-10.2) mg/dL Total Bilirubin 0.8 (0.2-1.3) mg/dL AST 41 (17-59) IU/L ALT 30 (<50) IU/L Alkaline Phosphatase 109 (38-126) U/L Total Protein 8.8 H (6.3-8.2) g/dL Albumin 5.0 (3.5-5.0) g/dL Globulin 3.8 (1.7-4.1) g/dL Albumin/Globulin Ratio 1.3 (1.0-2.8) Lipase 48 (23-300) U/L Procalcitonin (<0.5) ng/mL Ketones 6.80 H (<0.27) mmol/L SARS-CoV-2 (PCR) Negative (Negative) Point of Care Testing Glucose POC 383 MDM Narrative Medical decision making narrative: This is a 29-year-old male who comes in hyperglycemia persistent vomiting diarrhea as her see KA with the exception pH not being acidotic. Does appear to be more similar to ABG number was a VBG. Patient has little bit of a left shift. His anion gap is 19 with a CO2 of 16, his creatinine is 1.8 which is elevated from prior in early January showing an acute kidney injury. He is hyperglycemic with a glucose of 455. Ketones are positive. Covid swab is negative. Repeat accucheck is 383 after 1 L normal saline. Plan to give 10 units subcutaneous insulin, continue 2nd L of fluid and discussed with hospitalist to admit for hyperglycemia and acute kidney injury. Discharge Plan Departure Patient Disposition: Admitted as Observation Clinical Impression: DKA (diabetic ketoacidoses), Nausea & vomiting, Acute kidney injury
[2020-02-09] MEDS: ONDANSETRON 4 MG/2 ML INJ IV ×3 (04:26→08:28)
[2020-02-09] MEDS: SODIUM CHLORIDE 0.9% 1,000 ML 1000 ML IV ×3 (04:27→11:25)
[2020-02-09 04:31] LABS: PCO2 VBG 28.4 mmHg (45-50); PO2 VBG 94 mmHg (35-45); pH VBG 7.43 (7.33-7.43)
[2020-02-09 04:32] LABS: HCO3 VBG 19 mmol/L (23-28); Oxygen Saturation VBG 98 % (70-75); Total CO2 VBG 20 mmol/L (24-29)
[2020-02-09 04:42] LABS: Add Manual Diff / Slide Review NO; Basophils Absolute Auto 0 /uL (0-100); Basophils Percent Auto 0.2 % (0-2); Eosinophils Absolute Auto 0 /uL (0-450); Hematocrit 42.5 % (41-53); Hemoglobin 13.8 g/dL (13.5-17.5); Lymphocytes Absolute Auto 900 /uL (1100-4500); Lymphocytes Percent Auto 6.6 % (25-40); Mean Corpuscular HGB Conc 32.4 % (30-36); Mean Corpuscular Hemoglobin 27.5 PG (26-34); Mean Corpuscular Volume 84.7 fL (80-100); Monocytes Absolute Auto 300 /uL (0-900); Monocytes Percent Auto 2.4 % (3-14); Neutrophils Absolute Auto 12400 /uL (1500-7000); Neutrophils Percent Auto 90.8 % (50-75); Platelet Count 232 X10^3/uL (150-400); Red Blood Cell Count 5.02 X10^6/uL (4.5-5.9); Red Cell Distribution Width 13.9 % (11.6-14.8); White Blood Cell Count 13.7 X10^3/uL (4.5-11.0)
[2020-02-09 04:51] LABS: Lactate (Lactic Acid) 1.6 mmol/L (0.7-2.1)
[2020-02-09 04:53] LABS: Alanine Aminotransferase 30 IU/L (<50); Albumin Globulin Ratio 1.3 (1.0-2.8); Alkaline Phosphatase 109 U/L (38-126); Aspartate Aminotransferase 41 IU/L (17-59); Bilirubin Total 0.8 mg/dL (0.2-1.3); Blood Urea Nitrogen 41 mg/dL (9-20); Calcium 9.7 mg/dL (8.4-10.2); Carbon Dioxide 16 mmol/L (22-32); Chloride 97 mmol/L (98-107); Estimated Glomerular Filt Rate 43.5 mL/min (>60); Globulin 3.8 g/dL (1.7-4.1); Glucose 455 mg/dL (70-100); HEMOLYSIS 39 (0-50); Lipase 48 U/L (23-300); Sodium 132 mmol/L (137-145); Total Protein 8.8 g/dL (6.3-8.2)
[2020-02-09 04:57] LABS: Potassium 5.2 mmol/L (3.4-5.1)
[2020-02-09] MEDS: PANTOPRAZOLE 40 MG VIAL 80 MG IV (05:07)
[2020-02-09] MEDS: HYDROMORPHONE 0.5 MG INJ IV (05:07)
[2020-02-09 05:11] LABS: Procalcitonin < 0.05 ng/mL (<0.5)
[2020-02-09 05:47] LABS: COVID19 -Nasal RAPID Negative (Negative)
[2020-02-09] MEDS: INSULIN REGULAR 100 UNIT/ML 3 ML VIAL 10 UNIT SUBCUT (06:21)
[2020-02-09 08:39] LABS: BUN Creatinine Ratio 23.6 (6-22); Blood Urea Nitrogen 37 mg/dL (9-20); Calcium 8.6 mg/dL (8.4-10.2); Carbon Dioxide 17 mmol/L (22-32); Chloride 104 mmol/L (98-107); Estimated Glomerular Filt Rate 52.9 mL/min (>60); Glucose 391 mg/dL (70-100); HEMOLYSIS < 15 (0-50); Potassium 4.9 mmol/L (3.4-5.1); Sodium 136 mmol/L (137-145)
--- NOTE | 2020-02-09 10:29 | PC.NURSE ---
Day shift: Pt on unit from ED at approx 1025. Pt is A&Ox3. Pt presents w/ nausea and emesis bag in hand. Oriented to room and call light. Pt can ambulate. Pt also c/o chronic back pain as well as acute ABD pain. No MD orders at this time. Dr Marrero made aware Pt is here at approx 1036. Call light in reach.
[2020-02-09] MEDS: METOCLOPRAMIDE 10 MG/2 ML INJ IV (11:24)
[2020-02-09] MEDS: INSULIN GLARGINE 100 UNIT/ML 3ML PEN 15 UNIT SUBCUT (11:24)
[2020-02-09] MEDS: MORPHINE 2 MG/ML INJ IV (11:25)
[2020-02-09] MEDS: INSULIN ASPART 100 UNIT/ML INSULN PEN SUBCUT (12:42)
[2020-02-09] MEDS: lisinopriL 10 MG TABLET PO (12:44)
--- NOTE | 2020-02-09 13:11 | PC.NURSE ---
Day shift: Pt's IV fluids stopped and holding due to IV infiltration of left FA. Two RN's have attempted to start new IV but not successful. Dr Marrero aware of IV situation at this time. coke drawer aware as well. Pt may need PICC placed.
[2020-02-09 13:57] LABS: Hemoglobin A1C% w Est Avg Glu 7.8 % (4.0-6.0)
--- NOTE | 2020-02-09 14:09 | PM.HP.1 ---
History of Present Illness History of Present Illness Date Patient Seen: 02/09/20 Chief complaint: Stomach and back pain, vomiting x1 day Patient History Medical History (Updated 02/09/20 @ 06:07 by Monika Baugh DO) Bipolar disorder with depression Blurry vision, bilateral Diabetes type 1, uncontrolled Diabetic gastroparesis Diabetic neuropathy History of MRSA infection History of pneumonia Marijuana use Nausea and vomiting Surgical History (Updated 10/09/18 @ 01:54 by Monika Baugh DO) No pertinent past surgical history Family & Social History Family History (Updated 12/29/17 @ 21:26 by DESIRE Tineo) Mother No known health problems Father No known health problems Social History: household members family Prior Living Arrangements House Safety & Behavioral: Feels Safe in Current Yes Environment Been Physically Hurt or No Threatened By a Person Suicidal Ideation Description None Suicide Plan Description No Plan Tobacco & Substance use: Smoking Status Never smoker alcohol intake frequency other Substance Use Type marijuana Meds Home Medications and Allergies Home Medications Medication Instructions Recorded Confirmed Type insulin glargine [Lantus U-100 25 u SQ Q DAY #30 01/03/17 12/30/17 History Insulin] pantoprazole [Protonix] 40 mg PO BID #60 01/06/17 12/30/17 Rx Celexa DAILY 12/30/17 History Vistaril PO PRN 12/30/17 History amitriptyline PO BEDTIME 12/30/17 History insulin aspart U-100 [Novolog 1 unit SUBCUT AC 12/30/17 12/30/17 History Flexpen U-100 Insulin] metoclopramide HCl [Reglan] 10 mg PO QID 12/30/17 12/30/17 History oxycodone-acetaminophen [Percocet] 1 tab PO Q6H PRN 12/30/17 12/30/17 History Allergies Allergy/AdvReac Type Severity Reaction Status Date / Time aspirin [ASPIRIN] Allergy Unknown MAKES ME Verified 02/09/20 10:12 GO DEAF hydrocodone [HYDROCODONE] AdvReac Intermediate VOMITING Verified 02/09/20 10:12 ibuprofen [IBUPROFEN] AdvReac Intermediate HURTS Verified 02/09/20 10:12 KIDNEYS Exam Vital Signs (past 8 hours): - 02/09/20 07:00 02/09/20 07:30 02/09/20 08:00 Temperature Pulse Rate 115 H 110 H 107 H Respiratory Rate 18 Blood Pressure 186/110 H 157/109 H 165/107 H Pulse Oximetry 98 98 98 02/09/20 08:30 02/09/20 09:00 02/09/20 09:30 Temperature Pulse Rate 111 H 111 H 110 H Respiratory Rate Blood Pressure 130/82 158/94 H 157/96 H Pulse Oximetry 98 97 98 02/09/20 10:00 02/09/20 11:02 Temperature 98.7 F Pulse Rate 110 H 113 H Respiratory Rate 20 Blood Pressure 157/99 H 182/106 H Pulse Oximetry 98 100 Oxygen Delivery Method Room Air Oxygen Flow Rate 0 Objective Labs Result Diagrams: 02/09/20 04:25 02/09/20 08:25 Labs: Laboratory Results - last 24 hr 02/09/20 02/09/20 02/09/20 04:23 04:25 04:25 WBC 13.7 H RBC 5.02 Hgb 13.8 Hct 42.5 MCV 84.7 MCH 27.5 MCHC 32.4 RDW 13.9 Plt Count 232 Neut % (Auto) 90.8 H Lymph % (Auto) 6.6 L [place] % (Auto) 2.4 L Eos % (Auto) 0.0 L Baso % (Auto) 0.2 Neut # (Auto) 86156 H Lymph # (Auto) 900 L [place] # (Auto) 300 Eos # (Auto) 0 Baso # (Auto) 0 VBG pH 7.43 VBG pCO2 28.4 L VBG pO2 94 H VBG HCO3 19 L VBG Total CO2 20 L VBG O2 Saturation 98 H VBG Base Excess -6.0 L Sodium Potassium Chloride Carbon Dioxide BUN Creatinine Estimated GFR BUN/Creatinine Ratio Glucose Hemoglobin A1c Lactate Calcium Total Bilirubin AST ALT Alkaline Phosphatase Total Protein Albumin Globulin Albumin/Globulin Ratio Lipase Procalcitonin < 0.05 Ketones SARS-CoV-2 (PCR) 02/09/20 02/09/20 02/09/20 04:25 04:25 05:20 WBC RBC Hgb Hct MCV MCH MCHC RDW Plt Count Neut % (Auto) Lymph % (Auto) [place] % (Auto) Eos % (Auto) Baso % (Auto) Neut # (Auto) Lymph # (Auto) [place] # (Auto) Eos # (Auto) Baso # (Auto) VBG pH VBG pCO2 VBG pO2 VBG HCO3 VBG Total CO2 VBG O2 Saturation VBG Base Excess Sodium 132 L Potassium 5.2 H Chloride 97 L Carbon Dioxide 16 L BUN 41 H Creatinine 1.86 H Estimated GFR 43.5 L BUN/Creatinine Ratio 22.0 Glucose 455 H Hemoglobin A1c Lactate 1.6 Calcium 9.7 Total Bilirubin 0.8 AST 41 ALT 30 Alkaline Phosphatase 109 Total Protein 8.8 H Albumin 5.0 Globulin 3.8 Albumin/Globulin Ratio 1.3 Lipase 48 Procalcitonin Ketones 6.80 H SARS-CoV-2 (PCR) Negative 02/09/20 02/09/20 08:25 13:43 WBC RBC Hgb Hct MCV MCH MCHC RDW Plt Count Neut % (Auto) Lymph % (Auto) [place] % (Auto) Eos % (Auto) Baso % (Auto) Neut # (Auto) Lymph # (Auto) [place] # (Auto) Eos # (Auto) Baso # (Auto) VBG pH VBG pCO2 VBG pO2 VBG HCO3 VBG Total CO2 VBG O2 Saturation VBG Base Excess Sodium 136 L Potassium 4.9 Chloride 104 Carbon Dioxide 17 L BUN 37 H Creatinine 1.57 H Estimated GFR 52.9 L BUN/Creatinine Ratio 23.6 H Glucose 391 H Hemoglobin A1c 7.8 H Lactate Calcium 8.6 Total Bilirubin AST ALT Alkaline Phosphatase Total Protein Albumin Globulin Albumin/Globulin Ratio Lipase Procalcitonin Ketones SARS-CoV-2 (PCR)
[2020-02-09 14:10] LABS: BUN Creatinine Ratio 24.5 (6-22); Blood Urea Nitrogen 35 mg/dL (9-20); Calcium 8.7 mg/dL (8.4-10.2); Carbon Dioxide 22 mmol/L (22-32); Chloride 104 mmol/L (98-107); Estimated Glomerular Filt Rate 58.9 mL/min (>60); Glucose 253 mg/dL (70-100); HEMOLYSIS < 15 (0-50); Potassium 4.5 mmol/L (3.4-5.1); Sodium 137 mmol/L (137-145)
[2020-02-09] MEDS: AMLODIPINE 5 MG TABLET 10 MG PO (14:20)
--- NOTE | 2020-02-09 14:35 | PM.HP.1 ---
History of Present Illness History of Present Illness Chief complaint: Stomach and back pain, vomiting x1 day Narrative: Patient is a 29-year-old male with type 1 diabetes controlled with an insulin pump who was had multiple admissions to the hospital for DKA. He also has a history of diabetic peripheral neuropathy, and GERD. Patient lives in [place] but was here visiting his grandmother when he developed nausea vomiting abdominal pain. He reports his blood sugars were in the 300s. He was giving himself additional insulin but continued to have progressive symptoms and presented to the emergency room for evaluation. In the emergency room he was found to have blood sugars of 455, bicarbonate of 16, and an elevated creatinine of 1.8. The patient was given IV hydration, IV insulin in the emergency department. His labs were repeated in 4 hours and he remained acidotic and hyperglycemic. The patient was admitted to the hospital for inpatient treatment of diabetic ketoacidosis. Patient History Medical History Bipolar disorder with depression Blurry vision, bilateral Diabetes type 1, uncontrolled Diabetic gastroparesis Diabetic neuropathy History of MRSA infection History of pneumonia Marijuana use Nausea and vomiting Surgical History No pertinent past surgical history Family & Social History Family History Mother No known health problems Father No known health problems Social History: household members family Prior Living Arrangements House Safety & Behavioral: Feels Safe in Current Yes Environment Been Physically Hurt or No Threatened By a Person Suicidal Ideation Description None Suicide Plan Description No Plan Tobacco & Substance use: Smoking Status Never smoker alcohol intake frequency other Substance Use Type marijuana Meds Home Medications and Allergies Home Medications Medication Instructions Recorded Confirmed Type Lantus U-100 Insulin 25 u SQ Q DAY #30 01/03/17 02/09/20 History pantoprazole [Protonix] 40 mg PO BID #60 01/06/17 02/09/20 Rx Celexa DAILY 12/30/17 History Vistaril 25 mg PO DAILY 12/30/17 02/09/20 History amitriptyline PO BEDTIME 12/30/17 History insulin aspart U-100 [Novolog 1 unit SUBCUT AC 12/30/17 02/09/20 History Flexpen U-100 Insulin] metoclopramide HCl [Reglan] 10 mg PO TID 12/30/17 02/09/20 History oxycodone-acetaminophen [Percocet] 1 tab PO Q6H PRN 12/30/17 02/09/20 History Allergies Allergy/AdvReac Type Severity Reaction Status Date / Time aspirin [ASPIRIN] Allergy Unknown MAKES ME Verified 02/09/20 10:12 GO DEAF hydrocodone [HYDROCODONE] AdvReac Intermediate VOMITING Verified 02/09/20 10:12 ibuprofen [IBUPROFEN] AdvReac Intermediate HURTS Verified 02/09/20 10:12 KIDNEYS Review of Systems Review of Systems ROS: Yes All systems reviewed with the patient and are negative except as otherwise documented Exam Vital Signs (past 8 hours): - 02/09/20 07:00 02/09/20 07:30 02/09/20 08:00 Temperature Pulse Rate 115 H 110 H 107 H Respiratory Rate 18 Blood Pressure 186/110 H 157/109 H 165/107 H Pulse Oximetry 98 98 98 02/09/20 08:30 02/09/20 09:00 02/09/20 09:30 Temperature Pulse Rate 111 H 111 H 110 H Respiratory Rate Blood Pressure 130/82 158/94 H 157/96 H Pulse Oximetry 98 97 98 02/09/20 10:00 02/09/20 11:02 Temperature 98.7 F Pulse Rate 110 H 113 H Respiratory Rate 20 Blood Pressure 157/99 H 182/106 H Pulse Oximetry 98 100 Oxygen Delivery Method Room Air Oxygen Flow Rate 0 Narrative Exam Narrative: Ill-appearing male complaining of back and abdominal pain HEENT: Normocephalic atraumatic, extraocular muscles are intact oropharynx is clear, neck is supple without adenopathy Lungs clear to auscultation Cardiac exam: Regular rate and rhythm normal S1-S2 Abdomen: Soft nontender nondistended, no appreciable hepatosplenomegaly Extremities: No edema Neuro exam: Nonfocal Skin exam: No lesion Objective Labs Result Diagrams: 02/09/20 04:25 02/09/20 13:43 Labs: Laboratory Results - last 24 hr 02/09/20 02/09/20 02/09/20 04:23 04:25 04:25 WBC 13.7 H RBC 5.02 Hgb 13.8 Hct 42.5 MCV 84.7 MCH 27.5 MCHC 32.4 RDW 13.9 Plt Count 232 Neut % (Auto) 90.8 H Lymph % (Auto) 6.6 L [place] % (Auto) 2.4 L Eos % (Auto) 0.0 L Baso % (Auto) 0.2 Neut # (Auto) 56956 H Lymph # (Auto) 900 L [place] # (Auto) 300 Eos # (Auto) 0 Baso # (Auto) 0 VBG pH 7.43 VBG pCO2 28.4 L VBG pO2 94 H VBG HCO3 19 L VBG Total CO2 20 L VBG O2 Saturation 98 H VBG Base Excess -6.0 L Sodium Potassium Chloride Carbon Dioxide BUN Creatinine Estimated GFR BUN/Creatinine Ratio Glucose Hemoglobin A1c Lactate Calcium Total Bilirubin AST ALT Alkaline Phosphatase Total Protein Albumin Globulin Albumin/Globulin Ratio Lipase Procalcitonin < 0.05 Ketones SARS-CoV-2 (PCR) 02/09/20 02/09/20 02/09/20 04:25 04:25 05:20 WBC RBC Hgb Hct MCV MCH MCHC RDW Plt Count Neut % (Auto) Lymph % (Auto) [place] % (Auto) Eos % (Auto) Baso % (Auto) Neut # (Auto) Lymph # (Auto) [place] # (Auto) Eos # (Auto) Baso # (Auto) VBG pH VBG pCO2 VBG pO2 VBG HCO3 VBG Total CO2 VBG O2 Saturation VBG Base Excess Sodium 132 L Potassium 5.2 H Chloride 97 L Carbon Dioxide 16 L BUN 41 H Creatinine 1.86 H Estimated GFR 43.5 L BUN/Creatinine Ratio 22.0 Glucose 455 H Hemoglobin A1c Lactate 1.6 Calcium 9.7 Total Bilirubin 0.8 AST 41 ALT 30 Alkaline Phosphatase 109 Total Protein 8.8 H Albumin 5.0 Globulin 3.8 Albumin/Globulin Ratio 1.3 Lipase 48 Procalcitonin Ketones 6.80 H SARS-CoV-2 (PCR) Negative 02/09/20 02/09/20 02/09/20 08:25 13:43 13:43 WBC RBC Hgb Hct MCV MCH MCHC RDW Plt Count Neut % (Auto) Lymph % (Auto) [place] % (Auto) Eos % (Auto) Baso % (Auto) Neut # (Auto) Lymph # (Auto) [place] # (Auto) Eos # (Auto) Baso # (Auto) VBG pH VBG pCO2 VBG pO2 VBG HCO3 VBG Total CO2 VBG O2 Saturation VBG Base Excess Sodium 136 L 137 Potassium 4.9 4.5 Chloride 104 104 Carbon Dioxide 17 L 22 BUN 37 H 35 H Creatinine 1.57 H 1.43 H Estimated GFR 52.9 L 58.9 L BUN/Creatinine Ratio 23.6 H 24.5 H Glucose 391 H 253 H D Hemoglobin A1c 7.8 H Lactate Calcium 8.6 8.7 Total Bilirubin AST ALT Alkaline Phosphatase Total Protein Albumin Globulin Albumin/Globulin Ratio Lipase Procalcitonin Ketones SARS-CoV-2 (PCR) Assessment & Plan Assessment & Plan narrative: 29-year-old male with a history of type 1 diabetes multiple admissions to the hospital for diabetic ketoacidosis on an insulin pump who presents again with DKA -patient presents hyperglycemic with a blood sugar 455, bicarbonate 16, creatinine of 1.86 -his insulin pump has been turned off -patient typically takes 25 units of insulin U 100 according to our records however that does not coincide with what his insulin pump is shown -will start the patient on Lantus 15 units, will also provide sliding scale coverage, will continue IV hydration -will repeat BMP in 4 hours -once the patient acidosis has resolved, will resume insulin pump -patient's diet will be advanced as tolerated -will continue Reglan and pain medication Diabetic polyneuropathy Will continue amitriptyline Bipolar affective disorder Will continue Celexa Anticipate patient will be able to discharge tomorrow once he is able to tolerated diet and blood sugars have been controlled Patient's hemoglobin A1c is elevated at 7.8 suggesting poorly controlled diabetes Blood pressure is markedly elevated as well -will start an CHEYENNE-inhibitor given his diabetes -will start a statin as well given his type 1 diabetes Patient is a full code will note that his record accordingly Will start Lovenox for DVT prophylaxis
--- NOTE | 2020-02-09 14:45 | PC.NURSE ---
Day shift: Per Dr Marrero ok for Pt to not have IV access at this time. Tele d/c'd. IV meds changed to oral and rectal. Pt encouraged to drink extra fluids as tolerated. Pt also instructed (per Dr Marrero) to turn insulin pump back on. Call light in reach.
--- NOTE | 2020-02-09 15:53 | PC.NURSE ---
Addendum entered by Miranda Jay R.N. 02/09/20 23:27: Pt sitting up @ bedside vomiting. This makes emesis x 3 this evening shift. Discussed with pt need to insert iv and Luis Manuel SMITH was able to successfully place 24 gauge to left wrist. Discussed with hospitalist Tank pt refusal of zofran stating ineffective and requests ativan/GI cocktail. Addendum entered by Miranda Jay R.N. 02/09/20 22:03: Discussed iv zofran with patient as per hospitalist order. That stuff doesn't work. Pt declines. Addendum entered by Miranda Jay R.N. 02/09/20 21:29: Hospitalist Tank was made aware by telephone pt has had emesis x 2 this evening shift and requests GI cocktail specifically. Addendum entered by Miranda Jay R.N. 02/09/20 18:58: Pt states pain now 3/10 and states nausea is, okay. Requests oral fluids and has had void this shift. Questioned pt if would take additional insulin (in addition to insulin pump) for blood sugar of 167 and pt states would not. MAR reflects this. Minimal carbohydrate intake this shift. Addendum entered by Miranda Jay R.N. 02/09/20 17:36: Pt's blood sugar checks changed by MD to every 6 hours. Pt had emesis 200 cc's, but does not notify staff. This public relations writer found emesis bag on pt's bedside table and questioned pt when this occurred. Pt reports, just happened. Instructed pt to please alert staff if any further emesis. Pt was given po reglan, tylenol and morphine for c/o back and abdominal pain. Soup and crackers provided per pt request. Original Note: Pt resting quietly in bed but rouses easily to movement in room. Pt is pale, soft spoken. Pt is drowsy. States nausea is present, but is able to take oral fluids and these are at bedside. Will allow for pt's rest and reassess when more wakeful and participatory.
[2020-02-09] MEDS: METOCLOPRAMIDE HCL 10 MG TABLET PO (17:18)
[2020-02-09] MEDS: ACETAMINOPHEN 325 MG TABLET 650 MG PO (17:27)
[2020-02-09] MEDS: MORPHINE 10 MG/0.5 ML ORAL SYRINGE PO (17:29)
[2020-02-09] MEDS: ATORVASTATIN 20 MG TABLET 40 MG PO (20:06)
[2020-02-10] VITALS (7 sets, daily range): BP systolic 111–162; BP diastolic 72–112; PULSE 96–111; RESP 17–22; TEMP 36.9–37.4; O2SAT 97–99
[2020-02-10] MEDS: MORPHINE 2 MG/ML INJ IV ×6 (01:10→23:31)
[2020-02-10] MEDS: METOCLOPRAMIDE 10 MG/2 ML INJ IV ×4 (01:10→21:12)
[2020-02-10] MEDS: SODIUM CHLORIDE 0.9% 1,000 ML 150 ML IV ×4 (01:10→22:18)
--- NOTE | 2020-02-10 02:53 | PC.NURSE ---
Addendum entered by Aracelis Vital R.N. 02/10/20 06:43: 0600 LAB UNABLE TO DRAW BLOOD. Patient was a very difficult IV start, as well. Lab suggesting central line be placed. Original Note: 2305 Received safe hand-off report. The patient is resting in bed. He has a left wrist PIV, 24 gauge, that is saline locked. He is on room air. No s/sx of distress. He c/o abdominal pain and nausea. Spoke with Maureen Fu NP, who is going to switch his antiemetic to promethazine since the metoclopramide doesn't seem to help and zofran doesn't work according to patient. Last BG was 145 at 1999. The patient has in insulin pump on. Bed alarm is on. 0110 Patient has emesis of 150cc. Rates abdominal pain 08/17. Administered Reglan, as promethazine has not yet been approved by pharmacist. NS infusion started at 150mL/h. Administered 2mg morphine IV. 0245 Patient has emesis of 50cc. Promethazine ordered as syrup, but not available until morning pharmacist arrives. Informed patient there is a suppository option for this medication, but he declined. Offered lucy or peppermint tea, patient declined.
[2020-02-10] MEDS: PROMETHAZINE 6.25 MG/5 ML SYRUP 12.5 MG PO (08:00)
--- NOTE | 2020-02-10 08:09 | PC.NURSE ---
clarification from Dr. Marrero this morning, patient was instructed to turn his insulin pump back on yesterday evening after MD had seen lab work. Patient is to input his blood sugars for pump to adjust insulin as he would do at home. Dr. marrero saw patient at bedside and re iterated this information to him. Lab up again to attempt to redraw his labs. Patient continues to report nausea at this time, as well as right sided abdominal pain. call light within reach, continue with plan of care.
[2020-02-10 08:28] LABS: Add Manual Diff / Slide Review NO; Basophils Absolute Auto 0 /uL (0-100); Basophils Percent Auto 0.3 % (0-2); Eosinophils Absolute Auto 0 /uL (0-450); Eosinophils Percent Auto 0.1 % (2-4); Hematocrit 36.4 % (41-53); Hemoglobin 12.1 g/dL (13.5-17.5); Lymphocytes Absolute Auto 1300 /uL (1100-4500); Lymphocytes Percent Auto 10.2 % (25-40); Mean Corpuscular HGB Conc 33.2 % (30-36); Mean Corpuscular Hemoglobin 27.8 PG (26-34); Mean Corpuscular Volume 83.7 fL (80-100); Monocytes Absolute Auto 600 /uL (0-900); Monocytes Percent Auto 4.6 % (3-14); Neutrophils Absolute Auto 10600 /uL (1500-7000); Neutrophils Percent Auto 84.8 % (50-75); Platelet Count 208 X10^3/uL (150-400); Red Blood Cell Count 4.35 X10^6/uL (4.5-5.9); Red Cell Distribution Width 13.6 % (11.6-14.8); White Blood Cell Count 12.4 X10^3/uL (4.5-11.0)
[2020-02-10] MEDS: lisinopriL 10 MG TABLET PO (08:29)
[2020-02-10] MEDS: AMLODIPINE 5 MG TABLET 10 MG PO (08:30)
[2020-02-10 08:38] LABS: BUN Creatinine Ratio 20.2 (6-22); Blood Urea Nitrogen 18 mg/dL (9-20); Calcium 8.6 mg/dL (8.4-10.2); Carbon Dioxide 23 mmol/L (22-32); Chloride 103 mmol/L (98-107); Estimated Glomerular Filt Rate > 60.0 mL/min (>60); Glucose 218 mg/dL (70-100); HEMOLYSIS < 15 (0-50); Potassium 4.1 mmol/L (3.4-5.1); Sodium 136 mmol/L (137-145)
--- NOTE | 2020-02-10 13:44 | PC.NURSE ---
Patient reports nausea and intermittent vomiting have not seemed to improve today. Has only tolerated sips/bites. Iv fluids infusing as ordered. IV morphine as ordered for abdominal pain, and patient states it helps dull the pain so he can sleep. States he had a bowel movement yesterday, bowel sounds hypoactive today. Dr. Marrero was notified again that patient still having nausea/vomiting/abdominal pain. No new orders received but encourages continuing IV fluids as ordering and continuing reglan to help with GI motility. Patient denies difficulty urinating. Patient had used the bathroom without saving urine for monitoring, instructed to please use urinal for measuring and placed within reach. Patient refused lovenox, educated on its preventative indications, and again patient refused I don't want or need that. Patient agrees and using bilateral calf SCD's while in bed. Slept most of day, prefers the room dark and putting blankets over his head. Continue to monitor.
--- NOTE | 2020-02-10 15:40 | PM.PN.1 ---
Subjective Subjective Date Patient Seen: 02/10/20 Interval history: The patient is a 29-year-old male well-known to the hospitalist team admitted to the hospital for diabetic ketoacidosis. The patient is on an insulin pump but apparently is not adjusting his insulin accordingly. He no longer is in DKA however blood sugars remain elevated. Patient developed nausea with emesis today. He has had at least 3 episodes. Been villous but no hematemesis. Patient continues to report feeling poorly. Exam Vital Signs (past 8 hours): - 02/10/20 08:00 02/10/20 12:00 Temperature 99.4 F 98.4 F Pulse Rate 106 H 108 H Respiratory Rate 17 17 Blood Pressure 111/72 126/83 Pulse Oximetry 97 98 Oxygen Delivery Method Room Air Oxygen Flow Rate 0 Narrative Exam Narrative: Ill-appearing male lying in bed Lungs: Clear to auscultation Cardiac exam: Tachycardic regular rate and rhythm normal S1-S2 Abdomen: Soft nontender nondistended, no hepatosplenomegaly, no board-like rigidity, no palpable mass Extremities: No edema Skin exam no lesions noted Objective Labs Result Diagrams: 02/10/20 08:14 02/10/20 08:14 Labs: Laboratory Results - last 24 hr 02/10/20 02/10/20 08:14 08:14 WBC 12.4 H RBC 4.35 L Hgb 12.1 L Hct 36.4 L MCV 83.7 MCH 27.8 MCHC 33.2 RDW 13.6 Plt Count 208 Neut % (Auto) 84.8 H Lymph % (Auto) 10.2 L [place] % (Auto) 4.6 Eos % (Auto) 0.1 L Baso % (Auto) 0.3 Neut # (Auto) 62107 H Lymph # (Auto) 1300 [place] # (Auto) 600 Eos # (Auto) 0 Baso # (Auto) 0 Sodium 136 L Potassium 4.1 Chloride 103 Carbon Dioxide 23 BUN 18 Creatinine 0.89 Estimated GFR > 60.0 BUN/Creatinine Ratio 20.2 Glucose 218 H Calcium 8.6 PFSH Medical History Bipolar disorder with depression Blurry vision, bilateral Diabetes type 1, uncontrolled Diabetic gastroparesis Diabetic neuropathy History of MRSA infection History of pneumonia Marijuana use Nausea and vomiting Surgical History No pertinent past surgical history Family History Mother No known health problems Father No known health problems Social History household members: family Smoking Status: Never smoker Assessment & Plan Assessment & Plan narrative: Impression 1. Diabetic ketoacidosis -patient currently on an insulin pump -I have encouraged him to increase his insulin based on elevated blood sugar -patient no longer acidotic, no longer with DKA 2. Nausea and vomiting -suspect diabetic gastroparesis -will continue IV hydration -will continue Reglan every 6 hours as needed -diet as tolerated 3. Bipolar affective disorder -continue his usual home medication 4. Will continue CHEYENNE-inhibitor given his diabetes Will continue statin for diabetes as well Anticipate the patient will be able to discharge home once he is no longer nauseated and vomiting
--- NOTE | 2020-02-10 15:57 | CM.IDA ---
Initial DCP Assessment Note Patient is a 29 yo male, resident of [place], visiting his grandma in [place]. Patient is a type I Diabetic and presents in DKA. Payer is [facility] out of [place] According to discussion in multidisciplinary rounds, Dr Marrero explains patient continues to have nausea and multiple episodes of vomiting. Dr Marrero suspects gastroparesis in the setting of poorly managed diabetes. patient receiving IV hydration, Reglan every 6 hours as needed and diet as tolerated. Dr Marrero hopes to DC patient back w/his Grandma when he stops vomiting Patient w/ PMH to include Bipolar affective disorder, well managed on home medication celexa and amitriptyline. No opportunity today to meet w/patient, SARAH Pate explains patient has had his head under the covers and has been miserable. Plan: Anticipate patient will DC home w/family when medically cleared to do so. Likely no needs from this [employer] team GORDON De La Cruz
--- NOTE | 2020-02-10 16:58 | PC.NURSE ---
Addendum entered by Miranda Jay R.N. 02/10/20 22:24: Dr. Marrero has ordered bowel meds for this patient. Senna administered as ordered and rectal bowel meds offered to pt who declines. Only one episode of emesis witnessed by this advertising copy writer this evening shift. Pt continues to c/o abdominal pain and request pain meds. Instructed pt a bit too early to medicate. Dr. Marrero as been informed of pt's c/o abdominal pain and requests for pain meds this evening shift. Addendum entered by Miranda Jay R.N. 02/10/20 19:07: Pt reports nausea unrelieved by any intervention. Taking only sips water. Declined po promethazine. Given 2 mg iv morphine as pt reports this helps abdominal pain as well as nausea. Addendum entered by Miranda Jay R.N. 02/10/20 18:39: Labs drawn. Pt doses self with insulin pump following glucose reading of 186. Addendum entered by Miranda Jay R.N. 02/10/20 17:50: Dr. Marrero in to see patient as pt c/o abdominal pain right lower quadrant and lower central quadrant 09/17. X-ray now present in pt's room. Original Note: Dr. Marrero was made aware pt's nausea and vomiting continue with diastolic blood pressure > 100 @ the beginning of this shift.
[2020-02-10] MEDS: PROCHLORPERAZINE 10 MG/2 ML VIAL IV ×2 (17:04→23:31)
--- NOTE | 2020-02-10 17:29 | DI.RAD.S_ITS ---
PROCEDURE: XR KUB INDICATIONS: nausea, vomiting, clinical concern for small bowel obstruction. TECHNIQUE: One view of the abdomen acquired. COMPARISON: [facility], CT, CT ABDOMEN PELVIS W CON, 12/28/2017, 13:29. FINDINGS: Surgical changes and devices: None. Bowel: Bowel gas pattern is normal. A moderate amount of stool is seen within the colon. Soft tissues: No suspicious abdominal calcifications. Visualized solid organ contours appear normal in size. Bones: No suspicious bony lesions. IMPRESSION: A nonobstructive bowel gas pattern is seen. There is a moderate amount of stool seen within the colon. Please correlate with an underlying history of constipation. If clinically appropriate, please consider a repeat plain film study or a dedicated CT of the abdomen and pelvis, if the patient's symptoms persist or worsen. Dictated by: David Schultz M.D. on 02/10/2020 at 17:09 Approved by: David Schultz M.D. on 02/10/2020 at 17:09
[2020-02-10 19:10] LABS: Lipase 21 U/L (23-300)
[2020-02-10] MEDS: ATORVASTATIN 20 MG TABLET 40 MG PO (21:11)
[2020-02-10] MEDS: SENNOSIDES 8.6 MG TABLET 17.2 MG PO (21:11)
[2020-02-11] VITALS: BP 121/78; PULSE 100; RESP 18; TEMP 36.1; O2SAT 98
--- NOTE | 2020-02-11 04:39 | PC.NURSE ---
2305 Received safe hand-off report. The patient is resting in bed, supine position. C/O abdominal pain 7/10, and has 280cc emesis in bag on bedside table. Compazine and morphine administered per APR order. Pt denies having any BM since admitted. No s/sx of distress. 0500 Pt denies anymore bouts of emesis. C/O abdominal pain 5/10. Informed patient he is nearly due for more pain medicine as needed, and he asked I bring it when it's due. No s/sx of distress.
[2020-02-11] MEDS: SODIUM CHLORIDE 0.9% 1,000 ML 150 ML IV (04:58)
[2020-02-11 05:18] VITALS: BP 149/98; PULSE 104; RESP 18; TEMP 36.7; O2SAT 97
[2020-02-11] MEDS: MORPHINE 2 MG/ML INJ IV (05:47)
[2020-02-11] MEDS: PROCHLORPERAZINE 10 MG/2 ML VIAL IV (05:47)
[2020-02-11 08:00] VITALS: BP 131/80; PULSE 103; RESP 15; TEMP 37.1; O2SAT 97
[2020-02-11] MEDS: METOCLOPRAMIDE 10 MG/2 ML INJ IV (08:29)
[2020-02-11 08:30] VITALS: BP 131/80
[2020-02-11] MEDS: SENNOSIDES 8.6 MG TABLET 17.2 MG PO (08:30)
[2020-02-11] MEDS: lisinopriL 10 MG TABLET PO (08:30)
[2020-02-11] MEDS: AMLODIPINE 5 MG TABLET 10 MG PO (08:30)
--- NOTE | 2020-02-11 09:08 | PM.DS.1 ---
History of Present Illness History of Present Illness Chief complaint: Stomach and back pain, vomiting x1 day Narrative: Patient is a 29-year-old male with type 1 diabetes controlled with an insulin pump who was had multiple admissions to the hospital for DKA. He also has a history of diabetic peripheral neuropathy, and GERD. Patient lives in [place] but was here visiting his grandmother when he developed nausea vomiting abdominal pain. He reports his blood sugars were in the 300s. He was giving himself additional insulin but continued to have progressive symptoms and presented to the emergency room for evaluation. In the emergency room he was found to have blood sugars of 455, bicarbonate of 16, and an elevated creatinine of 1.8. The patient was given IV hydration, IV insulin in the emergency department. His labs were repeated in 4 hours and he remained acidotic and hyperglycemic. The patient was admitted to the hospital for inpatient treatment of diabetic ketoacidosis. Discharge Providers Provider Date of admission: 02/09/20 06:52 Discharge Date: 02/11/20 Discharge provider: Rehana Marrero MD Summary Hospital Course Discharge Diagnosis: 1. Diabetic ketoacidosis, present on admission, now resolved 2. Type 1 diabetes poorly controlled 3. Hypertension 4. Diabetic gastroparesis 5. GERD 6. Bipolar affective disorder 7. Acute renal failure present on admission, resolved Hospital Course: Patient was admitted to the hospital for treatment of diabetic gastroparesis. He was treated with subcutaneous insulin with improvement of his acidosis and hyperglycemia. The patient was then placed back on his insulin pump. Blood sugars have been somewhat elevated. We have continued to encourage him to provide himself additional insulin based on his sugars. The patient did develop some nausea and vomiting. He was unable to keep any food down. He was placed on around the clock Reglan, IV hydration, and pain medications. His lipase was 21. Patient made slow but steady progress. He was able to tolerate his diet. He initially had pre renal azotemia which improved with hydration. He was deemed appropriate large and arrangements were made for him to discharge home. Status at Discharge Cognitive/behavioral status at discharge: oriented Functional status at discharge: independent ambulation Overall status at discharge: patient is back to baseline Time Spent with Patient Time spent: Less than 30 minutes Exam Vital Signs (past 8 hours): - 02/11/20 05:18 02/11/20 08:30 Temperature 98.0 F Pulse Rate 104 H Respiratory Rate 18 Blood Pressure 149/98 H 131/80 Pulse Oximetry 97 Oxygen Delivery Method Room Air Oxygen Flow Rate 0 Narrative Exam Narrative: Pleasant gentleman lying in bed in no acute distress Lungs: Clear to auscultation Cardiac exam: Regular rate and rhythm normal S1-S2 with a 2/6 systolic ejection murmur Abdomen: Soft nontender, nondistended, no hepatosplenomegaly, no board-like rigidity Extremities: Trace edema Objective Labs Result Diagrams: 02/10/20 08:14 02/10/20 08:14 Labs: Laboratory Results - last 24 hr 02/10/20 18:30 Lipase 21 L D PFSH Medical History Bipolar disorder with depression Blurry vision, bilateral Diabetes type 1, uncontrolled Diabetic gastroparesis Diabetic neuropathy History of MRSA infection History of pneumonia Marijuana use Nausea and vomiting Surgical History No pertinent past surgical history Family History Mother No known health problems Father No known health problems Social History household members: family Smoking Status: Never smoker Discharge Assessment & Plan Assessment and Plan Assessment: 1. Diabetic ketoacidosis, present on admission, now resolved 2. Diabetic gastroparesis 3. Acute renal failure, secondary to pre renal azotemia 4. Hypertension Plan of Treatment: [place] when he returns to [place] Discharge Plan Discharge Plan Patient Disposition: Home Discharge orders & Medications Prescriptions: New lisinopril 10 mg Tablet 10 mg PO DAILY Qty: 30 RF: 0 amlodipine [Norvasc] 5 mg Tablet 10 mg PO DAILY Qty: 30 RF: 0 atorvastatin [Lipitor] 20 mg Tablet 40 mg PO BEDTIME Qty: 30 RF: 0 Continued pantoprazole [Protonix] 40 MG tablet,delayed release (DR/EC) 40 mg PO BID Qty: 60 RF: 0 oxycodone-acetaminophen [Percocet] 5-325 mg Tablet 1 tab PO Q6H PRN (Reason: pain) RF: 0 metoclopramide HCl [Reglan] 10 mg Tablet 10 mg PO TID RF: 0 Vistaril 25 mg PO DAILY RF: 0 amitriptyline PO BEDTIME RF: 0 Discontinued Lantus U-100 Insulin 100 UNIT/1 ML solution 25 u SQ Q DAY Qty: 30 RF: 0 Celexa DAILY RF: 0 insulin aspart U-100 [Novolog Flexpen U-100 Insulin] 100 unit/mL Insulin Pen 1 unit subcut AC RF: 0 Discharge Health Status Multidrug resistant organism: No MDRO Diet/Activity/Treatments Diet: Carb-consistent/Diabetic Discharge Data Attending Provider: Alyssa Fu
[2020-02-11] MEDS: OXYCODONE/ACETAMINOPHEN 5/325 TABLET 1 TAB PO (10:47)
[2020-02-11 12:00] VITALS: BP 115/74; PULSE 102; RESP 16; TEMP 36.9; O2SAT 97
--- NOTE | 2020-02-11 12:44 | PC.NURSE ---
Patient tolerated oral pain medication and then ate lunch and tolerated without vomiting. Patient wanting to get ready to discharge to home. Discharge instructions and home care handouts, and new prescriptions and possible side effects reviewed with patient, he states understanding and has no further questions or concerns at this time. IV dc'd intact. Patient states he plans to follow up with his doctor in [place] when he gets home. Encouraged him to follow his carb consistent diet and follow his blood sugar closely prior to meals and input his blood glucose into his pump as instructed by his physician. 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 Patient states he does not want to shower here, but will do so at home. Denies any belongings locked up.
== END 2020-02-11 14:40 | disposition home or self-care (01) | DRG 638 ==
LOC: ED 06:16 → AC 02-10 15:26
PROVIDERS: Emergency Medicine; Internal Medicine; Admitting Provider Nurse Practitioner Family; Emergency Provider Emergency Medicine; Referring Provider Emergency Medicine; Visit Provider Nurse Practitioner Family
DX: E10.10 Type 1 diabetes mellitus with ketoacidosis without coma (principal); N17.9 Acute kidney failure, unspecified; E10.42 Type 1 diabetes mellitus with diabetic polyneuropathy; E10.43 Type 1 diabetes mellitus with diabetic autonomic (poly)neuropathy; Z96.41 Presence of insulin pump (external) (internal); Z79.4 Long term (current) use of insulin; F31.9 Bipolar disorder, unspecified; K31.84 Gastroparesis; K21.9 Gastro-esophageal reflux disease without esophagitis; I10 Essential (primary) hypertension; Z20.822 Contact with and (suspected) exposure to COVID-19
CPT/HCPCS: 36415; 74018; 80048; 80053; 82009; 82805; 82962; 83036; 83605; 83690; 84145; 85025; 87040; 87635; 96361; 96372; 96374; 96375; 96376; 99283; 99284; C9113; J0780; J1170; J1650; J2270; J2405; J2765

== ENCOUNTER 2020-02-12 11:05 | Observation (INO) | payer OTHER, SELFPAY ==
[2020-02-09 12:47] VITALS: BMI 22.9
[2020-02-12] VITALS (14 sets, daily range): BP systolic 132–162; BP diastolic 88–112; PULSE 93–119; RESP 9–21; TEMP 36.8–37.1; O2SAT 95–99; BMI 21.9
--- NOTE | 2020-02-12 11:18 | ED_ITS ---
HPI - Nausea/Vomiting/Diarrhea General Chief complaint: Nausea/Vomiting/Diarrhea Stated complaint: released yesterday,vomiting still Time Seen by Provider: 02/12/20 11:18 Source: patient Mode of arrival: Ambulatory Limitations: no limitations History of Present Illness HPI Narrative: This is a 29-year-old male who comes to the emergency department with complaint of persistent vomiting. Patient was admitted on February 08 for acute kidney injury and was borderline DKA/hyperglycemia. Patient had all appropriate findings except for a acidosis. Patient is a known and dependent diabetic, he takes medication for hypertension as well as dyslipidemia, he has known gastroparesis and has been seen before for persistent vomiting. Patient states that he continued to have vomiting after discharge and has not been able to keep down fluids. He denies fevers or chills. He states he has been throwing up what looks like bile. He states that he continues to have abdominal pain particularly on the right side now radiating up towards his chest. He denies any shortness of breath. He denies any diarrhea, melena or hematochezia. He has been constipated but had a bowel movement yesterday. He has been passing flatus. Patient has not had his appendix out. Related Data Home Medications Medication Instructions Recorded Confirmed Vistaril 25 mg PO DAILY 12/30/17 02/09/20 amitriptyline PO BEDTIME 12/30/17 metoclopramide HCl [Reglan] 10 mg PO TID 12/30/17 02/09/20 oxycodone-acetaminophen [Percocet] 1 tab PO Q6H PRN 12/30/17 02/09/20 Previous Rx's Medication Instructions Recorded pantoprazole [Protonix] 40 mg PO BID #60 01/06/17 amlodipine [Norvasc] 10 mg PO DAILY #30 tab 02/11/20 atorvastatin [Lipitor] 40 mg PO BEDTIME #30 tab 02/11/20 lisinopril 10 mg PO DAILY #30 tab 02/11/20 Allergies Allergy/AdvReac Type Severity Reaction Status Date / Time aspirin [ASPIRIN] Allergy Unknown MAKES ME Verified 02/09/20 10:12 GO DEAF hydrocodone [HYDROCODONE] AdvReac Intermediate VOMITING Verified 02/09/20 10:12 ibuprofen [IBUPROFEN] AdvReac Intermediate HURTS Verified 02/09/20 10:12 KIDNEYS Review of Systems Review of Systems ROS Unobtainable: All systems reviewed & are unremarkable except as noted in HPI and below Patient History Medical History (Updated 02/12/20 @ 16:06 by Monika Baugh DO) Bipolar disorder with depression Blurry vision, bilateral Diabetes type 1, uncontrolled Diabetic gastroparesis Diabetic neuropathy History of MRSA infection History of pneumonia Marijuana use Nausea and vomiting Surgical History No pertinent past surgical history Family History Mother No known health problems Father No known health problems Social History household members: family Smoking Status: Never smoker Smoking Status: Never smoker alcohol intake frequency: other Substance Use Type: marijuana Exam Narrative Exam Narrative: GENERAL: Alert and oriented x three, pale male in mild distress. Patient does appear improved from his prior evaluation on the . HEENT: Head normocephalic, atraumatic, EOMI, pupils reactive, face symmetric, moist mucous membranes NECK: Supple, full range of motion CARDIOVASCULAR: Regular rate and rhythm without murmurs, rubs or gallops. RESPIRATORY: Breath sounds equal bilaterally, no wheezes rales or rhonchi. ABDOMEN: Soft, moderate generalized tenderness, greatest the right lower quadrant. Normoactive bowel sounds all 4 quadrants. No guarding or rebound, rigidity, no mass : No CVA tenderness EXTREMITIES: Normal range of motion, no clubbing or edema. Neurovascularly intact NEUROLOGICAL: Cranial nerves II through XII grossly intact. Moving all extremities SKIN: Warm, dry, no petechiae, no rashes or lesions. Patient has some areas of ecchymosis consistent with recent attempts for IVs in lab draws. Initial Vital Signs Initial Vital Signs: Vital Signs Temperature 98.7 F 02/12/20 11:10 Pulse Rate 117 H 02/12/20 11:10 Respiratory Rate 14 02/12/20 11:10 Blood Pressure 135/95 H 02/12/20 11:10 Pulse Oximetry 99 02/12/20 11:10 Course Orders Ordered: ED Orders 02/12/20 11:20 Venous Blood Gas Stat EKG-12 Lead Stat 02/12/20 11:31 US abdomen complete Stat 02/12/20 13:50 Complete Blood Count AUTO DIFF Stat Comprehensive Metabolic Panel Stat Ketones (Beta-Hydroxybutyrate) Stat Lactate (Lactic Acid) Stat Lipase Stat Procalcitonin Stat Troponin & CK Cardiac Panel Stat 02/12/20 14:12 Blood Culture Stat 02/12/20 15:09 COVID19 Stat 02/12/20 16:57 Urine Microscopic Stat Discontinued Medications Dextrose (Dextrose 25 % In Water 2.5 Gm/10 Ml Syringe) 2.5 gm IV NOW ONE Stop: 02/12/20 14:25 Last Admin: 02/12/20 14:31 Dose: 2.5 gm Documented by: JUAN MANUEL Dextrose (Dextrose 50 % In Water 25 Gm/50 Ml Syringe) 25 gm IV NOW ONE Stop: 02/12/20 16:05 Last Admin: 02/12/20 16:09 Dose: 25 gm Documented by: FERNANDO Hydromorphone HCl (Hydromorphone 0.5 Mg Inj) 0.5 mg IV NOW ONE Stop: 02/12/20 14:40 Last Admin: 02/12/20 14:48 Dose: 0.5 mg Documented by: JUAN MANUEL Hydromorphone HCl (Hydromorphone 0.5 Mg Inj) 0.5 mg IV NOW ONE Stop: 02/12/20 18:12 Last Admin: 02/12/20 18:26 Dose: 0.5 mg Documented by: Sodium Chloride (Normal Saline 0.9%) 1,000 mls @ 1,000 mls/hr IV BOLUS ONE Stop: 02/12/20 12:19 Last Admin: 02/12/20 18:27 Dose: Not Given Documented by: Sodium Chloride (Normal Saline 0.9%) 1,000 mls @ 1,000 mls/hr IV BOLUS ONE Stop: 02/12/20 12:21 Last Infusion: 02/12/20 15:14 Dose: 0 mls/hr Documented by: JUAN MANUEL Admin: 02/12/20 13:54 Dose: 1,000 mls/hr Documented by: JUAN MANUEL Lactated Ringer's (Lactated Ringers) 1,000 mls @ 1,000 mls/hr IV BOLUS ONE Stop: 02/12/20 15:55 Last Infusion: 02/12/20 16:13 Dose: 0 mls/hr Documented by: Admin: 02/12/20 15:09 Dose: 1,000 mls/hr Documented by: JUAN MANUEL Metoclopramide HCl (Metoclopramide 10 Mg/2 Ml Inj) 10 mg IV NOW ONE Stop: 02/12/20 11:28 Last Admin: 02/12/20 13:56 Dose: 10 mg Documented by: JUAN MANUEL Ondansetron HCl (Ondansetron 4 Mg/2 Ml Inj) 4 mg IV NOW ONE Stop: 02/12/20 11:21 Ondansetron HCl (Ondansetron 4 Mg/2 Ml Inj) 4 mg IV NOW ONE Stop: 02/12/20 18:12 Last Admin: 02/12/20 18:26 Dose: 4 mg Documented by: Pantoprazole Sodium (Pantoprazole 40 Mg Vial) 40 mg IV NOW ONE Stop: 02/12/20 11:23 Last Admin: 02/12/20 13:55 Dose: 40 mg Documented by: JUAN MANUEL Reevaluation(s) Reevaluation #1: Patient is nauseated but not vomiting. He has not had any oral challenges or food Time: 16:30 Reevaluation #2: Nursing did check patient's pump and he has not had a bolus since 12:40 a.m. Hypoglycemia has improved but patient continues to vomit. Time: 18:08 Consultations Consultation #1: Spoke with Dr. Marrero initially who asked that we make sure patient's pump is off. Patient does appear to have hypoglycemia secondary to emesis and not had anything he has mild electrolyte abnormalities. He was 100 glucose initially with Accu-Chek, 60s on serum and was given glucose, patient dropped down to the 30s. We were able to give him some food but he was not able to keep it down even after antiemetics. Patient does also have a history of gastroparesis. He has been may able to maintain his glucose levels and nursing did check his pump and it was noted there had not been a bolus since 12:40 a.m.. Re-contacted Dr. Marrero who kindly accepts patient for observation as he has been unable to tolerate orals. Vital Signs Vital signs: Vital Signs - 8 hr 02/12/20 11:10 02/12/20 11:49 02/12/20 12:00 Temperature 98.7 F Pulse Rate 117 H 115 H 119 H Respiratory Rate 14 Blood Pressure 135/95 H 144/90 H Pulse Oximetry 99 98 99 02/12/20 14:30 02/12/20 15:00 02/12/20 16:00 Temperature Pulse Rate 114 H 104 H 105 H Respiratory Rate 16 16 17 Blood Pressure 141/98 H 154/99 H 143/95 H Pulse Oximetry 98 95 98 02/12/20 16:30 02/12/20 16:45 02/12/20 17:00 Temperature Pulse Rate 115 H 109 H 107 H Respiratory Rate 21 14 9 L Blood Pressure 162/112 H 157/106 H 152/104 H Pulse Oximetry 97 96 98 02/12/20 17:45 02/12/20 17:54 Temperature Pulse Rate 101 H 105 H Respiratory Rate 13 11 L Blood Pressure 132/88 134/94 H Pulse Oximetry 97 97 MDM - Nausea/Vomiting/Diarrhea Lab Data Attestation: I reviewed the patient's lab results. Result diagrams: 02/12/20 13:50 02/12/20 13:50 Labs: Lab Results 02/12/20 02/12/20 02/12/20 Range/Units 13:50 13:50 13:50 WBC 8.3 (4.5-11.0) X10^3/uL RBC 4.98 (4.5-5.9) X10^6/uL Hgb 13.9 (13.5-17.5) g/dL Hct 40.8 L (41-53) % MCV 82.0 (80-100) fL MCH 27.8 (26-34) PG MCHC 34.0 (30-36) % RDW 13.2 (11.6-14.8) % Plt Count 235 (150-400) X10^3/uL Neut % (Auto) 65.6 (50-75) % Lymph % (Auto) 23.6 L (25-40) % Gregory % (Auto) 9.6 (3-14) % Eos % (Auto) 0.5 L (2-4) % Baso % (Auto) 0.7 (0-2) % Neut # (Auto) 5400 (1859-0563) /uL Lymph # (Auto) 2000 (2353-7537) /uL Gregory # (Auto) 800 (0-900) /uL Eos # (Auto) 0 (0-450) /uL Baso # (Auto) 100 (0-100) /uL Sodium 136 L (137-145) mmol/L Potassium 3.3 L (3.4-5.1) mmol/L Chloride 98 (98-107) mmol/L Carbon Dioxide 29 (22-32) mmol/L BUN 14 (9-20) mg/dL Creatinine 0.83 (0.66-1.25) mg/dL Estimated GFR > 60.0 (>60) mL/min BUN/Creatinine Ratio 16.9 (6-22) Glucose 70 D (70-100) mg/dL Lactate (0.7-2.1) mmol/L Calcium 9.9 (8.4-10.2) mg/dL Total Bilirubin 0.9 (0.2-1.3) mg/dL AST 46 (17-59) IU/L ALT 23 (<50) IU/L Alkaline Phosphatase 85 (38-126) U/L Total Creatine Kinase 336 H (55-170) U/L CK-MB (CK-2) 0.37 (<2.37) ng/mL CK-MB (CK-2) Rel Index 0.1 L (1.5-5.0) % Troponin I < 0.012 (0.01-0.034) ng/mL Total Protein 8.1 (6.3-8.2) g/dL Albumin 4.6 (3.5-5.0) g/dL Globulin 3.5 (1.7-4.1) g/dL Albumin/Globulin Ratio 1.3 (1.0-2.8) Lipase 30 (23-300) U/L Procalcitonin < 0.05 (<0.5) ng/mL Urine RBC (0-5/HPF) Urine WBC (0-5/HPF) Urine Bacteria (None) Ur Culture Indicated? Ketones 2.92 H (<0.27) mmol/L SARS-CoV-2 (PCR) (Negative) 02/12/20 02/12/20 02/12/20 Range/Units 13:50 15:09 16:57 WBC (4.5-11.0) X10^3/uL RBC (4.5-5.9) X10^6/uL Hgb (13.5-17.5) g/dL Hct (41-53) % MCV (80-100) fL MCH (26-34) PG MCHC (30-36) % RDW (11.6-14.8) % Plt Count (150-400) X10^3/uL Neut % (Auto) (50-75) % Lymph % (Auto) (25-40) % Gregory % (Auto) (3-14) % Eos % (Auto) (2-4) % Baso % (Auto) (0-2) % Neut # (Auto) (5213-9896) /uL Lymph # (Auto) (5839-3877) /uL Gregory # (Auto) (0-900) /uL Eos # (Auto) (0-450) /uL Baso # (Auto) (0-100) /uL Sodium (137-145) mmol/L Potassium (3.4-5.1) mmol/L Chloride (98-107) mmol/L Carbon Dioxide (22-32) mmol/L BUN (9-20) mg/dL Creatinine (0.66-1.25) mg/dL Estimated GFR (>60) mL/min BUN/Creatinine Ratio (6-22) Glucose (70-100) mg/dL Lactate 0.8 (0.7-2.1) mmol/L Calcium (8.4-10.2) mg/dL Total Bilirubin (0.2-1.3) mg/dL AST (17-59) IU/L ALT (<50) IU/L Alkaline Phosphatase (38-126) U/L Total Creatine Kinase (55-170) U/L CK-MB (CK-2) (<2.37) ng/mL CK-MB (CK-2) Rel Index (1.5-5.0) % Troponin I (0.01-0.034) ng/mL Total Protein (6.3-8.2) g/dL Albumin (3.5-5.0) g/dL Globulin (1.7-4.1) g/dL Albumin/Globulin Ratio (1.0-2.8) Lipase (23-300) U/L Procalcitonin (<0.5) ng/mL Urine RBC 5-10/hpf H (0-5/HPF) Urine WBC None seen (0-5/HPF) Urine Bacteria None seen (None) Ur Culture Indicated? Cult not indicated Ketones (<0.27) mmol/L SARS-CoV-2 (PCR) Negative (Negative) Point of Care Testing Glucose POC 163 Urine Dip Bedside Urine Glucose 100 mg/dl Bedside Urine Bilirubin - Negative Bedside Urine Ketone +++ 80 Urine Specific Hensel 1.015 Bedside Urine Occult Blood + Bedside Urine pH 6.0 Bedside Urine Protein +/- 15 Bedside Urine Urobilinogen - Negative Bedside Urine Nitrite - Negative Bedside Urine Leukocytes - Negative Esterase Imaging Data US - abdomen: Radiologist's Impression: [address] [id number] ReportSigned Patient: Valentin Noble JMR#: [id number]: 1990Acct:[id number]/Sex: 29 / MDate of Service: 02/12/20Loc: EDAccession Number: [id number] Procedure: US abdomen complete Ordering Provider: Monika Baugh D.O. PROCEDURE: US ABDOMEN COMPLETE INDICATIONS: RIGHT UPPER QUADRANT AND ?APPENDICITIS TECHNIQUE: Real-time scanning was performed of the abdominal and retroperitoneal organs, with image documentation. COMPARISON: None. FINDINGS: Liver: Liver is normal in size . Mildly heterogeneously increased liver paren chymal echotexture is seen. No discrete hepatic lesion.. Gallbladder: There is no gallstone. No gallbladder wall thickening or pericholecystic fluid. No sonographic Rosales sign. Biliary ducts: Intrahepatic bile ducts are non-dilated. Extrahepatic bile duct caliber measures 3 point mm. Normal is 6-7 mm or less in diameter, or 10 mm or less post-cholecystectomy. Pancreas: Visualized portions of the pancreas are sonographically normal. Spleen: Spleen is normal in size and homogeneous in echotexture. Kidneys: Kidneys are normal in size and echotexture. Right kidney measures 9.8 cm long; left kidney measures 9.8 cm long. No hydronephrosis or nephrolithiasis. No solid masses. Aorta: Visualized aorta is normal in caliber at less than 3 cm. Iliacs: Proximal common iliac arteries are normal in caliber at less than 2.5 cm. IVC: Intrahepatic inferior vena cava is patent. Miscellaneous: No free abdominal fluid. Appendix is not definitively identified in right lower quadrant abdomen. No thickened bowel loop or fluid collection is seen in right lower quadrant abdomen. IMPRESSION: 1. Very mild hepatic steatosis in the liver. No discrete hepatic lesion. 2. Normal appearing gallbladder. No biliary ductal dilatation. 3. Appendix is not definitively seen. No secondary signs of acute appendicitis is seen in right lower quadrant abdomen. Dictated by: Conrado Guillen M.D. on 02/12/2020 at 13:10 Approved by: Conrado Guillen M.D. on 02/12/2020 at 13:12 ECG Data Attestation: I personally reviewed and interpreted this ECG as follows: Prior ECG tracings: available for review Interpretation: Sinus tachycardia rate of 116, PA 148, QRS 86 and QTC of 444. No ST elevation depression appreciated, left anterior fascicular block. Similar to 01/15/20. [facility] Narrative Medical decision making narrative: Patient has very difficult access and had DI place a line in department which caused delay in workukp. Patient's glucose was in the 60s he was given dextrose attempted to feed him but due his nausea worse unsuccessful. He had hypoglycemia again in the 30s was given another amp. Patient given food but was unable to tolerate but has had improved glucose levels and D5 gtt was held. Patient has mild electrolyte abnormalities and does have a history of gastroparesis. Patient unable to tolerate orals and plan to observe for recurrent hypoglycemia. Discharge Plan Departure Patient Disposition: Admitted as Observation Clinical Impression: Nausea & vomiting, Hypoglycemia Admit Date/Time: 02/12/20 18:51 Admit Provider: Rehana Marrero
--- NOTE | 2020-02-12 11:31 | DI.US.S_ITS ---
PROCEDURE: US ABDOMEN COMPLETE INDICATIONS: RIGHT UPPER QUADRANT AND ?APPENDICITIS TECHNIQUE: Real-time scanning was performed of the abdominal and retroperitoneal organs, with image documentation. COMPARISON: None. FINDINGS: Liver: Liver is normal in size . Mildly heterogeneously increased liver parenchymal echotexture is seen. No discrete hepatic lesion.. Gallbladder: There is no gallstone. No gallbladder wall thickening or pericholecystic fluid. No sonographic Rosales sign. Biliary ducts: Intrahepatic bile ducts are non-dilated. Extrahepatic bile duct caliber measures 3 point mm. Normal is 6-7 mm or less in diameter, or 10 mm or less post-cholecystectomy. Pancreas: Visualized portions of the pancreas are sonographically normal. Spleen: Spleen is normal in size and homogeneous in echotexture. Kidneys: Kidneys are normal in size and echotexture. Right kidney measures 9.8 cm long; left kidney measures 9.8 cm long. No hydronephrosis or nephrolithiasis. No solid masses. Aorta: Visualized aorta is normal in caliber at less than 3 cm. Iliacs: Proximal common iliac arteries are normal in caliber at less than 2.5 cm. IVC: Intrahepatic inferior vena cava is patent. Miscellaneous: No free abdominal fluid. Appendix is not definitively identified in right lower quadrant abdomen. No thickened bowel loop or fluid collection is seen in right lower quadrant abdomen. IMPRESSION: 1. Very mild hepatic steatosis in the liver. No discrete hepatic lesion. 2. Normal appearing gallbladder. No biliary ductal dilatation. 3. Appendix is not definitively seen. No secondary signs of acute appendicitis is seen in right lower quadrant abdomen. Dictated by: Conrado Guillen M.D. on 02/12/2020 at 13:10 Approved by: Conrado Guillen M.D. on 02/12/2020 at 13:12
--- NOTE | 2020-02-12 13:51 | PC.NURSE ---
DI nurse in room placing IV through US guided insertion.
[2020-02-12] MEDS: SODIUM CHLORIDE 0.9% 1,000 ML 1000 ML IV (13:54)
[2020-02-12] MEDS: PANTOPRAZOLE 40 MG VIAL IV (13:55)
[2020-02-12] MEDS: METOCLOPRAMIDE 10 MG/2 ML INJ IV (13:56)
[2020-02-12 14:00] LABS: Add Manual Diff / Slide Review NO; Basophils Absolute Auto 100 /uL (0-100); Basophils Percent Auto 0.7 % (0-2); Eosinophils Absolute Auto 0 /uL (0-450); Eosinophils Percent Auto 0.5 % (2-4); Hematocrit 40.8 % (41-53); Hemoglobin 13.9 g/dL (13.5-17.5); Lymphocytes Absolute Auto 2000 /uL (1100-4500); Lymphocytes Percent Auto 23.6 % (25-40); Mean Corpuscular Hemoglobin 27.8 PG (26-34); Monocytes Absolute Auto 800 /uL (0-900); Monocytes Percent Auto 9.6 % (3-14); Neutrophils Absolute Auto 5400 /uL (1500-7000); Neutrophils Percent Auto 65.6 % (50-75); Platelet Count 235 X10^3/uL (150-400); Red Blood Cell Count 4.98 X10^6/uL (4.5-5.9); Red Cell Distribution Width 13.2 % (11.6-14.8); White Blood Cell Count 8.3 X10^3/uL (4.5-11.0)
[2020-02-12 14:16] LABS: HEMOLYSIS < 15 (0-50)
[2020-02-12 14:21] LABS: Alanine Aminotransferase 23 IU/L (<50); Albumin 4.6 g/dL (3.5-5.0); Albumin Globulin Ratio 1.3 (1.0-2.8); Alkaline Phosphatase 85 U/L (38-126); Aspartate Aminotransferase 46 IU/L (17-59); BUN Creatinine Ratio 16.9 (6-22); Bilirubin Total 0.9 mg/dL (0.2-1.3); Blood Urea Nitrogen 14 mg/dL (9-20); Calcium 9.9 mg/dL (8.4-10.2); Carbon Dioxide 29 mmol/L (22-32); Chloride 98 mmol/L (98-107); Creatine Kinase 336 U/L (55-170); Estimated Glomerular Filt Rate > 60.0 mL/min (>60); Globulin 3.5 g/dL (1.7-4.1); Glucose 70 mg/dL (70-100); Lactate (Lactic Acid) 0.8 mmol/L (0.7-2.1); Lipase 30 U/L (23-300); Potassium 3.3 mmol/L (3.4-5.1); Sodium 136 mmol/L (137-145); Total Protein 8.1 g/dL (6.3-8.2)
[2020-02-12] MEDS: DEXTROSE 25 % IN WATER 2.5 GM/10 ML SYRINGE IV (14:31)
[2020-02-12 14:32] LABS: Troponin I < 0.012 ng/mL (0.01-0.034)
--- NOTE | 2020-02-12 14:33 | PC.NURSE ---
BG checked - 64. Provider notified. Obtained order for dextrose.
[2020-02-12 14:35] LABS: Procalcitonin < 0.05 ng/mL (<0.5)
[2020-02-12 14:36] LABS: CKMB % Relative Index 0.1 % (1.5-5.0); Creatine Kinase MB 0.37 ng/mL (<2.37)
[2020-02-12] MEDS: HYDROMORPHONE 0.5 MG INJ IV ×3 (14:48→20:49)
[2020-02-12 14:50] LABS: Ketones (Beta-Hydroxybutyrate) 2.92 mmol/L (<0.27)
[2020-02-12] MEDS: LACTATED RINGERS 1,000 ML 1000 ML IV (15:09)
[2020-02-12 15:34] LABS: COVID19 -Nasal RAPID Negative (Negative)
[2020-02-12] MEDS: DEXTROSE 50 % IN WATER 25 GM/50 ML SYRINGE IV (16:09)
--- NOTE | 2020-02-12 16:14 | PC.NURSE ---
called to inform staff his bloodsugar was low. FSBS resulted less than 30. Provider notified and ordered d50. D50 given.
--- NOTE | 2020-02-12 16:40 | PC.NURSE ---
Patient provided with apple juice, sandwich and cracker. Educated patient that their BG is low and need to eat. Patient able to eat some of his sandwich and juice but states too nauseas to eat more. Provider notified.
[2020-02-12 17:04] LABS: Bacteria Urine None Seen; WBC Urine None Seen (0-5/HPF)
[2020-02-12 17:13] LABS: Culture Indicated Urine Cult Not Indicated; RBC Urine 5-10/HPF (0-5/HPF)
[2020-02-12] MEDS: ONDANSETRON 4 MG/2 ML INJ IV ×2 (18:26→20:43)
[2020-02-12] MEDS: POTASSIUM CHLORIDE 40 MEQ in SODIUM CHLORIDE 0.9% 500 ML 130 ML IV (20:50)
[2020-02-12] MEDS: SODIUM CHLORIDE 0.9% 1,000 ML 125 ML IV (20:52)
[2020-02-12 21:04] LABS: Magnesium 1.9 mg/dL (1.6-2.3)
--- NOTE | 2020-02-12 21:18 | PM.HP.1 ---
History of Present Illness History of Present Illness Date Patient Seen: 02/12/20 Time Patient Seen: 21:01 Chief complaint: released yesterday,vomiting still Narrative: Mr. Valentin Noble is a 27-year-old male with a past medical history significant for diabetes mellitus type 1 using an insulin pump with associated gastroparesis and neuropathy, hypertension, history MRSA, drop foot, bipolar depression, and anxiety who presents to the hospital with persistent nausea and vomiting. Patient was admitted to the hospital from 02/09/2020 to 02/11/2020 for diabetic ketoacidosis with acute kidney injury secondary to nausea vomiting dehydration. The patient states that he continued to have abdominal pain since discharge and experienced continued nausea vomiting of bilious emesis that was nonbloody. At the time of discharge patient had been restarted on his insulin pump and his serum glucose was 215, interrogation of the pump finds that no insulin is been delivered since 12:48 a.m... The patient returns to the ER today with glucose is 64 having been unable to keep down any food or fluids. He continues to complain of moderate constant right-sided abdominal pain with no exacerbating or relieving factors. He does report associated reflux symptoms with acid taste in his mouth. He describes the symptoms as the same he experienced while he was admitted. The patient reports no complaints of fevers or chills, nasal congestion or sore throat. He denies orthostatic dizziness. He has had no complaints of chest pain other than her reflux symptoms. He denies shortness of breath cough or wheezing. He has abdominal pain and nausea as above. He denies complaints of diarrhea or constipation has had no foul smelling stool, hematochezia or melena. Upon arrival to the ER the patient has a temperature of 98.7?, heart rate of 117, blood pressure 135/95, respirations of 14 saturating 99% on room air. An ultrasound of the abdomen finds mild liver heterogenicity with normal gallbladder and normal pancreas, appendix is not visualized. On laboratory analysis he has white count of 8.3 with no shift, hemoglobin of 13.9 hematocrit of 40.8 and platelets of 235. On chemistry has a sodium 136, potassium of 3.3, BUN of 14 and creatinine 0.83. His serum glucose is 70. He has a total bilirubin of 0.9, AST 46, ALT of 23 and alkaline phosphatase of 85. His lactic acid is 0.8 with a procalcitonin less than 0.05. Has a total CK of 336, CK-MB of 0.37 with an index is 0.1. His troponin is negative at less than 0.012. His serum ketones are 2.96. While in the ER the insulin pump is turned off and he received 2 doses 2.5 g of dextrose.. Hydromorphone 0.5 mg administered x2 along with an Zofran and Protonix. The patient is admitted to the hospital for gastroparesis secondary to type 1 diabetes resulting in hypoglycemia. Patient History Medical History Bipolar disorder with depression Blurry vision, bilateral Diabetes type 1, uncontrolled Diabetic gastroparesis Diabetic neuropathy History of MRSA infection History of pneumonia Marijuana use Nausea and vomiting Surgical History No pertinent past surgical history Family & Social History Family History Mother No known health problems Father No known health problems Social History: household members family Prior Living Arrangements House Safety & Behavioral: Feels Safe in Current Yes Environment Been Physically Hurt or No Threatened By a Person Suicidal Ideation Description None Suicide Plan Description No Plan Tobacco & Substance use: Smoking Status Never smoker alcohol intake frequency other Substance Use Type marijuana Meds Home Medications and Allergies Home Medications Medication Instructions Recorded Confirmed Type amitriptyline PO BEDTIME 12/30/17 History metoclopramide HCl [Reglan] 10 mg PO TID 12/30/17 02/12/20 History amlodipine [Norvasc] 10 mg PO DAILY #30 tab 02/11/20 02/12/20 Rx lisinopril 10 mg PO DAILY #30 tab 02/11/20 02/12/20 Rx Acid Property Loss Insurance Claim Adjuster (omeprazole) 40 mg PO BID 02/12/20 02/12/20 History Flexeril 20 mg PO TID 02/12/20 02/12/20 History hydroxyzine HCl 25 mg PO TID 02/12/20 02/12/20 History mirtazapine 02/12/20 History Allergies Allergy/AdvReac Type Severity Reaction Status Date / Time aspirin [ASPIRIN] Allergy Unknown MAKES ME Verified 02/09/20 10:12 GO DEAF hydrocodone [HYDROCODONE] AdvReac Intermediate VOMITING Verified 02/09/20 10:12 ibuprofen [IBUPROFEN] AdvReac Intermediate HURTS Verified 02/09/20 10:12 KIDNEYS Review of Systems Review of Systems ROS: Yes All systems reviewed with the patient and are negative except as otherwise documented Exam Vital Signs (past 8 hours): - 02/12/20 14:30 02/12/20 15:00 02/12/20 16:00 Temperature Pulse Rate 114 H 104 H 105 H Respiratory Rate 16 16 17 Blood Pressure 141/98 H 154/99 H 143/95 H Pulse Oximetry 98 95 98 02/12/20 16:30 02/12/20 16:45 02/12/20 17:00 Temperature Pulse Rate 115 H 109 H 107 H Respiratory Rate 21 14 9 L Blood Pressure 162/112 H 157/106 H 152/104 H Pulse Oximetry 97 96 98 02/12/20 17:45 02/12/20 17:54 02/12/20 19:02 Temperature 98.3 F Pulse Rate 101 H 105 H 100 H Respiratory Rate 13 11 L 17 Blood Pressure 132/88 134/94 H 151/109 H Pulse Oximetry 97 97 99 Oxygen Delivery Method Room Air Oxygen Flow Rate 0 Narrative Exam Narrative: GENERAL APPEARANCE: well developed, fair ill-appearing young male who appears older than his stated age. HEENT: Normocephalic, PERRLA, conjunctiva clear, EOMs intact without nystagmus, no sinus tenderness to percussion, no rhinorrhea, mucous membranes are dry and pink, tongue is smooth NECK/THYROID: neck supple, nontender, no JVD, no thyromegaly, trachea midline. LYMPH NODES: no cervical or supraclavicular lymphadenopathy. SKIN: [place], warm and dry, no visible lesions, rashes, ulcerations HEART: regular rate and rhythm, S1-S2, no murmur, no rubs or gallops, brisk capillary refill, no edema LUNGS: clear to auscultation bilaterally, no coarseness crackles or wheezing, no cough present CHEST: Symmetrical movement, no accessory muscle use, good tidal volume. ABDOMEN: Soft, no distention, epigastric and right-sided abdominal pain on palpation, no guarding or peritoneal signs, no organomegaly, active bowel tones. EXTREMITIES: moves all extremities, strength is 5/5 and symmetrical, no deformities or joint effusions, no cyanosis or clubbing NEUROLOGIC: AAO x4, no focal neurologic deficits, cranial nerves II-XII grossly intact, BLE neuropathy, hearing grossly normal to speech. PSYCH: cooperative, appropriate with stable behavior Objective Labs Result Diagrams: 02/12/20 13:50 02/12/20 13:50 Labs: Laboratory Results - last 24 hr 02/12/20 02/12/20 02/12/20 13:50 13:50 13:50 WBC 8.3 RBC 4.98 Hgb 13.9 Hct 40.8 L MCV 82.0 MCH 27.8 MCHC 34.0 RDW 13.2 Plt Count 235 Neut % (Auto) 65.6 Lymph % (Auto) 23.6 L [place] % (Auto) 9.6 Eos % (Auto) 0.5 L Baso % (Auto) 0.7 Neut # (Auto) 5400 Lymph # (Auto) 2000 [place] # (Auto) 800 Eos # (Auto) 0 Baso # (Auto) 100 Sodium 136 L Potassium 3.3 L Chloride 98 Carbon Dioxide 29 BUN 14 Creatinine 0.83 Estimated GFR > 60.0 BUN/Creatinine Ratio 16.9 Glucose 70 D Lactate Calcium 9.9 Magnesium Total Bilirubin 0.9 AST 46 ALT 23 Alkaline Phosphatase 85 Total Creatine Kinase 336 H CK-MB (CK-2) 0.37 CK-MB (CK-2) Rel Index 0.1 L Troponin I < 0.012 Total Protein 8.1 Albumin 4.6 Globulin 3.5 Albumin/Globulin Ratio 1.3 Lipase 30 Procalcitonin < 0.05 Urine RBC Urine WBC Urine Bacteria Ur Culture Indicated? Ketones 2.92 H SARS-CoV-2 (PCR) 02/12/20 02/12/20 02/12/20 13:50 13:50 15:09 WBC RBC Hgb Hct MCV MCH MCHC RDW Plt Count Neut % (Auto) Lymph % (Auto) [place] % (Auto) Eos % (Auto) Baso % (Auto) Neut # (Auto) Lymph # (Auto) [place] # (Auto) Eos # (Auto) Baso # (Auto) Sodium Potassium Chloride Carbon Dioxide BUN Creatinine Estimated GFR BUN/Creatinine Ratio Glucose Lactate 0.8 Calcium Magnesium 1.9 Total Bilirubin AST ALT Alkaline Phosphatase Total Creatine Kinase CK-MB (CK-2) CK-MB (CK-2) Rel Index Troponin I Total Protein Albumin Globulin Albumin/Globulin Ratio Lipase Procalcitonin Urine RBC Urine WBC Urine Bacteria Ur Culture Indicated? Ketones SARS-CoV-2 (PCR) Negative 02/12/20 16:57 WBC RBC Hgb Hct MCV MCH MCHC RDW Plt Count Neut % (Auto) Lymph % (Auto) [place] % (Auto) Eos % (Auto) Baso % (Auto) Neut # (Auto) Lymph # (Auto) [place] # (Auto) Eos # (Auto) Baso # (Auto) Sodium Potassium Chloride Carbon Dioxide BUN Creatinine Estimated GFR BUN/Creatinine Ratio Glucose Lactate Calcium Magnesium Total Bilirubin AST ALT Alkaline Phosphatase Total Creatine Kinase CK-MB (CK-2) CK-MB (CK-2) Rel Index Troponin I Total Protein Albumin Globulin Albumin/Globulin Ratio Lipase Procalcitonin Urine RBC 5-10/hpf H Urine WBC None seen Urine Bacteria None seen Ur Culture Indicated? Cult not indicated Ketones SARS-CoV-2 (PCR) Assessment & Plan Assessment & Plan narrative: This is a 29-year-old male patient with history of type 1 diabetes managed with a insulin pump who was discharged from the hospital yesterday following admission for TKA and acute kidney injury and returns today for persistent abdominal pain with nausea and vomiting and hypoglycemia. 1. Diabetes type 1, with acute hypoglycemia, present on admission, active. -the patient was discharged just over 24 hours ago following admission for DKA with acute kidney injury and dehydration secondary to persistent nausea vomiting. -at the time of discharge the patient's blood glucose was 215 and upon arrival to the ER today was 64 by fingerstick and 70 on admission labs. Patient has an insulin pump which last delivered insulin at 12:48 a.m. -in the ER the patient received 2.5 g of dextrose x2. -the patient will be NPO, ordered D5 NS at 75 cc per hour and check blood sugars every 2 hours until stable -Will restart insulin pump when blood glucose is greater than 150. 2. Diabetic polyneuropathy with gastroparesis, acute present on admission, active. -patient gastroparesis on previous admission that with improved glycemic management was able to tolerate oral intake at the time of discharge. -the patient reports continuing nausea vomiting following discharge being unable to keep food or fluids down. -order Reglan 10 mg IV every 6 hours as needed for nausea and Zofran 4 mg every 6 hours for nausea refractory to Reglan. -the patient is NPO will maintain glucose with D5 NS at 75 cc an hour. -will advance diet to clears as nausea resolves. -will bladder scan as needed to monitor for urinary retention and assess for neurogenic bladder. 3. Hypokalemia, acute, present on admission, active. -with patient with hypokalemia secondary to protracted nausea and vomiting. Serum potassium on admission was 3.3. -order potassium 40 mEq IV, will recheck chemistries in the morning. 4. Essential Hypertension, chronic, stable -blood pressure on admission to the ER was 135/95. Subsequent blood pressure on admission to the floor was 137/96. -the patient takes amlodipine 10 mg and lisinopril 10 mg daily but is presently NPO. Requested orthostatic vital signs. -will monitor blood pressures closely. 5. Gastroesophageal reflux, acute, present on admission, active -the patient describes reflux symptoms with heartburn and acid taste in his mouth as result of gastroparesis. -patient is receiving Reglan 10 mg IV every 6 hours. -patient received Protonix 40 mg in the emergency department. Will continue Protonix 40 mg daily. 6. Bipolar 1 disorder, chronic, stable. -will continue the patient's routine medication hydroxyzine 25 mg 3 times daily. -the patient takes mirtazapine daily but does not recall the dose, ordered mirtazapine 15 mg at bedtime. VTE prophylaxis: Enoxaparin 40 mg daily IV fluid: D5 NS at 50 cc an hour, normal saline 50 cc/hour Diet: NPO, as nausea improves will advance as tolerated. Code status: Full code. This is a 29-year-old male patient who returns to the hospital with persistent gastroparesis since discharge 24 hours ago with associated nausea vomiting dehydration and hypoglycemia. The patient is admitted as observation status with expected length of stay to be less than 2 midnights. COVID-19 COVID-19 status: Negative Result date/Date tested (Pos, Neg/Pending): 02/12/20 Scores GCS Benjie coma scale eye opening: Spontaneous Witten coma scale verbal response: Orientated Benjie coma scale motor response: Obey commands Witten coma scale total score: 15
[2020-02-12] MEDS: MIRTAZAPINE 15 MG TABLET PO (23:06)
[2020-02-13] VITALS (9 sets, daily range): BP systolic 63–150; BP diastolic 36–108; PULSE 94–113; RESP 16–18; TEMP 36.1–37.2; O2SAT 98–99
[2020-02-13] MEDS: DEXTROSE 5%-0.9% NS 1,000 ML 50 ML IV ×2 (00:49→21:13)
[2020-02-13] MEDS: METOCLOPRAMIDE 10 MG/2 ML INJ IV ×4 (01:00→16:52)
[2020-02-13] MEDS: FAMOTIDINE 20 MG/50 ML PIGGYBACK 200 MG IV (01:20)
[2020-02-13] MEDS: SODIUM CHLORIDE 0.9% 500 ML 1000 ML IV (04:36)
[2020-02-13] MEDS: HYDROMORPHONE 0.5 MG INJ IV ×4 (05:33→23:51)
[2020-02-13 05:53] LABS: BUN Creatinine Ratio 12.5 (6-22); Blood Urea Nitrogen 9 mg/dL (9-20); Calcium 8.3 mg/dL (8.4-10.2); Carbon Dioxide 27 mmol/L (22-32); Chloride 99 mmol/L (98-107); Estimated Glomerular Filt Rate > 60.0 mL/min (>60); Glucose 189 mg/dL (70-100); HEMOLYSIS < 15 (0-50); Potassium 3.8 mmol/L (3.4-5.1); Sodium 133 mmol/L (137-145)
[2020-02-13 06:11] LABS: HEMOLYSIS < 15 (0-50); Iron 73 ug/dL (49-181)
[2020-02-13 06:22] LABS: Percent Iron Saturation 27 % (20-50); Total Iron Binding Capacity 272 ug/dL (261-462); Transferrin 195 mg/dL (206-381)
[2020-02-13 06:58] LABS: Vitamin B12 874 pg/mL (239-931)
[2020-02-13 07:15] LABS: Folate 8.7 ng/mL (2.76-20.0)
[2020-02-13] MEDS: hydrOXYzine pamoate 25 MG CAPSULE PO ×3 (09:46→21:13)
[2020-02-13] MEDS: PANTOPRAZOLE 40 MG VIAL IV (09:47)
--- NOTE | 2020-02-13 14:55 | PC.NURSE ---
Assess- Patient bs has been taken every 2 hours, he is using his insulin pump independently. He showered today and has been moving around independently in his room. Ortho blood pressures done this morning and when standing up down to 65/40s. Patient asymptomatic and states that he is feeling non syncopal. Ate some at breakfast and lunch. BS have been 75,98,107,165.
--- NOTE | 2020-02-13 15:14 | CM.DANOTE ---
Patient is a 29 year old male who was admitted on 02/11/19 for N/V. Pt has Medicaid [place] for insurance and his PCP is in [place]. EMR was reviewed. Per MD, pt readmitted after d/c home due to uncontrolled N/V. Pt with hx of Bipolar and depression and uncontrolled diabetes and insulin pump. SW met bedside with pt and confirmed he was recently discharged home and is a resident of [place], visiting his grandma in [place] and has been here about a month with plans to return to [place] at the end of the week via airplane. Pt confirms he is independent at baseline and has an established PCP in [place]. MD feels pt likely has gastroparesis in the setting of poorly managed diabetes. patient receiving IV hydration, Reglan every 6 hours as needed and diet as tolerated. Patient w/ PMH to include Bipolar affective disorder, well managed on home medication celexa and amitriptyline. Pt confirms that his grandma can provide transport home at d/c and pt hopeful to remain one more night in the hospital. Pt looks fairly unkept and missing teeth and older than his age but denies any further needs. Plan: SW to follow for likely d/c home with grandma either tonight or tomorrow when medically stable and return to [place] with PCP follow up after discharge. GORDON Madison Discharge Planning/Care Management CM Discharge Assessment Start: 02/13/20 15:08 Freq: Status: Active Protocol: Document 02/13/20 15:08 BF (Rec: 02/13/20 15:14 BF [id number]) Discharge Planning Assessment Assigned Retail Banker GORDON Watson DPOA/Assigned Designee Name none Advance Directives? No Advance Directives on File No History Provided By Patient,Medical Record Has Patient been admitted in last 30 Yes days? Comment yesterday 02/12/20 Prior Living Arrangements House Household Members family Type of transporation used prior to Drives own vehicle admit Independent with ADL's Yes Is patient alert and oriented? Yes Needs Assistance With Managing Medications Caregiver for Another No Comment Patient has left foot drop which he wears a brace for. Barriers to Discharge No Discharge Plan Home Transportation Arrangement Family to provide transport Referrals Initiated None needed Review Status In Process Please Provide Date Initial DC 02/13/20 Assessment Was Performed Next Review Type Continued Stay Review
--- NOTE | 2020-02-13 18:12 | P.PN_ITS ---
Subjective Subjective Date Patient Seen: 02/13/20 Time Patient Seen: 12:30 Interval history: This is a 29-year-old male with past medical history of type 1 diabetes on insulin pump therapy, hypertension, gastroparesis who was recently admitted for mild DKA and discharged home. However, he was unable to tolerate adequate oral intake at home and return back to the emergency room. He is slowly improving here again with rehydration and reglan. Exam Vital Signs (past 8 hours): - 02/13/20 12:00 02/13/20 15:00 Temperature 97.7 F 99.0 F Pulse Rate 99 H Pulse Rate [Orthostatic Lying] 99 H Pulse Rate [Orthostatic Sitting] 102 H Pulse Rate [Orthostatic Standing] 113 H Respiratory Rate 18 16 Blood Pressure 138/95 H Blood Pressure [Orthostatic Lying] 150/107 H Blood Pressure [Orthostatic Sitting] 124/89 Blood Pressure [Orthostatic Standing] 63/36 L Pulse Oximetry 99 99 Oxygen Delivery Method Room Air Oxygen Flow Rate 0 Narrative Exam Narrative: GENERAL APPEARANCE: well developed, chronically ill-appearing young male who appears older than his stated age. HEENT: Normocephalic, PERRLA, conjunctiva clear, EOMs intact without nystagmus, no sinus tenderness to percussion, no rhinorrhea, mucous membranes are dry and pink, tongue is smooth NECK/THYROID: neck supple, nontender, no JVD, no thyromegaly, trachea midline. LYMPH NODES: no cervical or supraclavicular lymphadenopathy. SKIN: [place], warm and dry, no visible lesions, rashes, ulcerations HEART: regular rate and rhythm, S1-S2, no murmur, no rubs or gallops, brisk capillary refill, no edema LUNGS: clear to auscultation bilaterally, no coarseness crackles or wheezing, no cough present CHEST: Symmetrical movement, no accessory muscle use, good tidal volume. ABDOMEN: Soft, no distention, epigastric and right-sided abdominal pain on palpation, no guarding or peritoneal signs, no organomegaly, active bowel tones. EXTREMITIES: moves all extremities, strength is 5/5 and symmetrical, no deformities or joint effusions, no cyanosis or clubbing NEUROLOGIC: AAO x4, no focal neurologic deficits, cranial nerves II-XII grossly intact, BLE neuropathy, hearing grossly normal to speech. PSYCH: cooperative, appropriate with stable behavior Objective Labs Result Diagrams: 02/12/20 13:50 02/13/20 05:25 Labs: Laboratory Results - last 24 hr 02/12/20 02/13/20 02/13/20 13:50 05:25 05:25 Sodium Potassium Chloride Carbon Dioxide BUN Creatinine Estimated GFR BUN/Creatinine Ratio Glucose Calcium Magnesium 1.9 Iron 73 TIBC 272 % Saturation 27 Transferrin 195 L Vitamin B12 Folate 8.7 02/13/20 02/13/20 05:25 05:25 Sodium 133 L Potassium 3.8 Chloride 99 Carbon Dioxide 27 BUN 9 Creatinine 0.72 Estimated GFR > 60.0 BUN/Creatinine Ratio 12.5 Glucose 189 H D Calcium 8.3 L Magnesium Iron TIBC % Saturation Transferrin Vitamin B12 874 Folate PFS Medical History Bipolar disorder with depression Blurry vision, bilateral Diabetes type 1, uncontrolled Diabetic gastroparesis Diabetic neuropathy History of MRSA infection History of pneumonia Marijuana use Nausea and vomiting Surgical History No pertinent past surgical history Family History Mother No known health problems Father No known health problems Social History household members: family Smoking Status: Never smoker Assessment & Plan Assessment & Plan narrative: This is a 29-year-old male patient with history of type 1 diabetes managed with a insulin pump who was recently discharged for mild DKA and acute kidney injury and returned for persistent abdominal pain with nausea and vomiting and hypoglycemia secondary to gastroparesis. 1. Diabetes type 1, with acute hypoglycemia, present on admission, active. -the patient was discharged just over 24 hours ago following admission for DKA with acute kidney injury and dehydration secondary to persistent nausea vomiting. -at the time of discharge the patient's blood glucose was 215 and upon arrival to the ER today was 64 by fingerstick and 70 on admission labs. Patient has an insulin pump which last delivered insulin at 12:48 a.m. -in the ER the patient received 2.5 g of dextrose x2. -restart carb controlled diet as tolerated today. -Has resumed insulin pump therapy, he uses a continuous glucose monitor but does not currently have any supplies in this state as he usually resides in [place]. 2. Diabetic polyneuropathy with gastroparesis, acute present on admission, active. -patient gastroparesis on previous admission that with improved glycemic management was able to tolerate oral intake at the time of discharge. -the patient reports continuing nausea vomiting following discharge being unable to keep food or fluids down. - reglan changed from prn to 10 mg IV prior to meals. Consider starting erythromycin if not responsive. -will consult automatic lathe setter for education on gastroparesis diet. 3. Hypokalemia, acute, present on admission, active. -with patient with hypokalemia secondary to protracted nausea and vomiting. Serum potassium on admission was 3.3. -improved to 3.8 with repletion. will continue to follow. 4. Essential Hypertension, chronic, stable -blood pressure on admission to the ER was 135/95. Subsequent blood pressure on admission to the floor was 137/96. -the patient takes amlodipine 10 mg and lisinopril 10 mg daily. He is profoundly orthostatic (but not symptomatic). Will hold home medications for [facility] and [facility] as he is rehydarted and tolerates more of a diet. 5. Gastroesophageal reflux, acute, present on admission, active -the patient describes reflux symptoms with heartburn and acid taste in his mouth as result of gastroparesis. He also reports a narrowing of his esophagus on prior EGD. -patient is receiving Reglan 10 mg IV every 6 hours. -patient received Protonix 40 mg in the emergency department. Will continue Protonix 40 mg daily. 6. Bipolar 1 disorder, chronic, stable. -will continue the patient's routine medication hydroxyzine 25 mg 3 times daily. -the patient takes mirtazapine daily but does not recall the dose, ordered mirtazapine 15 mg at bedtime. VTE prophylaxis: Enoxaparin 40 mg daily Code status: Full code. Dispo: remains observation, may discharge once adqeuately tolerating some oral intake.
[2020-02-13] MEDS: MIRTAZAPINE 15 MG TABLET PO (21:13)
[2020-02-14] VITALS (11 sets, daily range): BP systolic 55–163; BP diastolic 36–127; PULSE 89–120; RESP 14–20; TEMP 35.8–36.7; O2SAT 99–100
--- NOTE | 2020-02-14 03:20 | PC.NURSE ---
as per hospitalist, patient blood sugar checks will be done from Q2 hours to Q6 hours
[2020-02-14 05:22] LABS: BUN Creatinine Ratio 15.5 (6-22); Blood Urea Nitrogen 11 mg/dL (9-20); Calcium 8.5 mg/dL (8.4-10.2); Carbon Dioxide 31 mmol/L (22-32); Chloride 99 mmol/L (98-107); Estimated Glomerular Filt Rate > 60.0 mL/min (>60); Glucose 140 mg/dL (70-100); HEMOLYSIS 24 (0-50); Magnesium 1.7 mg/dL (1.6-2.3); Potassium 3.3 mmol/L (3.4-5.1); Sodium 133 mmol/L (137-145)
[2020-02-14] MEDS: HYDROMORPHONE 0.5 MG INJ IV ×3 (06:09→18:37)
[2020-02-14] MEDS: METOCLOPRAMIDE 10 MG/2 ML INJ IV ×2 (06:09→12:25)
[2020-02-14] MEDS: POTASSIUM CHLORIDE 20 MEQ TAB 40 MEQ PO (06:29)
[2020-02-14] MEDS: ACETAMINOPHEN 325 MG TABLET 650 MG PO ×2 (08:34→21:23)
[2020-02-14] MEDS: hydrOXYzine pamoate 25 MG CAPSULE PO ×3 (08:34→21:20)
[2020-02-14] MEDS: PANTOPRAZOLE 40 MG VIAL IV (08:35)
[2020-02-14] MEDS: lisinopriL 10 MG TABLET PO (09:46)
--- NOTE | 2020-02-14 12:21 | DIET.PN ---
Dietary Progress Note Assessment: 29y M c T1D on CGM and insulin pump readmit for uncontrolled N/V secondary to gastroparesis referred to nutrition for gastroparesis MNT. Pt resides in [place], had insulin pump supplies in [facility] but not CGM (pt reports they are being sent up via mail). Pt followed by [place]CP and team in [place]. Pt reports GERD and gastroparesis are ongoing issue often triggered by spicy foods. Pt says he can often eat hot sauce on chicken wings with no issue, but on other foods he reacts. Pt regularly takes reglan for N/V. Pt unaware that high fat and high fiber foods can trigger sx. HT: 177.8cm WT: 69.5kg UBW: 60-72kg up and down past 2y BMI: 22.0 Labs: ketones 2.92 H, A1c 7.8 H, BGs ~130 during hospitalization Nutrition Diagnosis: Interventions: 1. Educated pt on MNT for gastroparesis using handout including limiting high fat foods, high fiber foods and including more smoothies, broth based soups. While low fiber grains are recommended for gastroparesis, recc pt consume these in small/moderate amounts within CCD and focus intake on good protein sources. 2. Recc trialing limited CHO rowley smoothie c dinner, pt agreeable. Diet Order: CCD Monitoring/Evaluations: ONS tolerance
--- NOTE | 2020-02-14 14:40 | PC.NURSE ---
Patients bp high at 150s/120s, 10mg of lisinopril given. Ortho blood pressures done and sitting and lying blood pressures still high when patient stands his systolic was down to 56/58 and he is aymptomatic. Otherwise, he has been medicated with iv dilaudid and has ivf infusing. Patient seems to be doing better today.
--- NOTE | 2020-02-14 15:34 | CM.DPC ---
DCP Cont: Scheduling Clerk is seeing patient today. Discussed during team rounds. Patient was recently here and discharged, came back due to nausea and vomiting. Patient resides in [place], where his primary care provider is. He is currently staying with his grandmother. P: DCP to continue to follow. Patient should be able to discharge back to his grandmother's when he is medically stable. He plans on returning back home to [place], eventually. Swapna Izaguirre RN/Professor Of Biological Sciences
[2020-02-14] MEDS: METOCLOPRAMIDE HCL 10 MG TABLET PO (16:50)
[2020-02-14] MEDS: DEXTROSE 5%-0.9% NS 1,000 ML 50 ML IV (16:50)
--- NOTE | 2020-02-14 17:16 | PM.PN.1 ---
Subjective Subjective Date Patient Seen: 02/14/20 Time Patient Seen: 14:00 Interval history: This is a 29-year-old male with past medical history of type 1 diabetes on insulin pump therapy, hypertension, gastroparesis who was recently admitted for mild DKA and discharged home. However, he was unable to tolerate adequate oral intake at home and return back to the emergency room. He is slowly improving here again with rehydration and reglan. He was able to tolerate a small amount of a regular diet today. He was seen by the dietitian. Have transition to oral Reglan and discontinued fluids. If he continues to do well can likely discharge home tomorrow. Exam Vital Signs (past 8 hours): - 02/14/20 10:00 02/14/20 11:48 02/14/20 15:53 Temperature 97.2 F L 98.0 F Pulse Rate 107 H 105 H Pulse Rate [Orthostatic Lying] 115 H Pulse Rate [Orthostatic Sitting] 116 H Pulse Rate [Orthostatic Standing] 120 H Respiratory Rate 16 20 Blood Pressure 139/110 H 133/103 H Blood Pressure [Orthostatic Lying] 141/115 H Blood Pressure [Orthostatic Sitting] 121/103 H Blood Pressure [Orthostatic Standing] 58/41 L Pulse Oximetry 99 100 Oxygen Delivery Method Room Air Oxygen Flow Rate 0 Narrative Exam Narrative: GENERAL APPEARANCE: well developed, chronically ill-appearing young male who appears older than his stated age. HEENT: Normocephalic, PERRLA, conjunctiva clear, EOMs intact without nystagmus, no sinus tenderness to percussion, no rhinorrhea, mucous membranes are dry and pink, tongue is smooth NECK/THYROID: neck supple, nontender, no JVD, no thyromegaly, trachea midline. LYMPH NODES: no cervical or supraclavicular lymphadenopathy. SKIN: [place], warm and dry, no visible lesions, rashes, ulcerations HEART: regular rate and rhythm, S1-S2, no murmur, no rubs or gallops, brisk capillary refill, no edema LUNGS: clear to auscultation bilaterally, no coarseness crackles or wheezing, no cough present CHEST: Symmetrical movement, no accessory muscle use, good tidal volume. ABDOMEN: Soft, no distention, epigastric and right-sided abdominal pain on palpation, no guarding or peritoneal signs, no organomegaly, active bowel tones. EXTREMITIES: moves all extremities, strength is 5/5 and symmetrical, no deformities or joint effusions, no cyanosis or clubbing NEUROLOGIC: AAO x4, no focal neurologic deficits, cranial nerves II-XII grossly intact, BLE neuropathy, hearing grossly normal to speech. PSYCH: cooperative, appropriate with stable behavior Objective Labs Result Diagrams: 02/12/20 13:50 02/14/20 04:50 Labs: Laboratory Results - last 24 hr 02/14/20 02/14/20 04:50 04:50 Sodium 133 L Potassium 3.3 L Chloride 99 Carbon Dioxide 31 BUN 11 Creatinine 0.71 Estimated GFR > 60.0 BUN/Creatinine Ratio 15.5 Glucose 140 H Calcium 8.5 Magnesium 1.7 PFSH Medical History Bipolar disorder with depression Blurry vision, bilateral Diabetes type 1, uncontrolled Diabetic gastroparesis Diabetic neuropathy History of MRSA infection History of pneumonia Marijuana use Nausea and vomiting Surgical History No pertinent past surgical history Family History Mother No known health problems Father No known health problems Social History household members: family Smoking Status: Never smoker Assessment & Plan Assessment & Plan narrative: This is a 29-year-old male patient with history of type 1 diabetes managed with a insulin pump who was recently discharged for mild DKA and acute kidney injury and returned for persistent abdominal pain with nausea and vomiting and hypoglycemia secondary to gastroparesis. 1. Diabetes type 1, with acute hypoglycemia, present on admission, improved hypoglycemia. -the patient was discharged just over 24 hours ago following admission for DKA with acute kidney injury and dehydration secondary to persistent nausea vomiting. -in the ER the patient received dextrose x2. -restart carb controlled diet as tolerated. -Has resumed insulin pump therapy, he uses a continuous glucose monitor but does not currently have any supplies in this state as he usually resides in [place]. 2. Diabetic polyneuropathy with gastroparesis, acute present on admission, active. -patient gastroparesis on previous admission that with improved glycemic management was able to tolerate oral intake at the time of discharge. -the patient reports continuing nausea vomiting following discharge being unable to keep food or fluids down. - reglan changed from prn to 10 mg IV prior to meals initially, now improving will transition to oral and stop fluids today. Consider starting erythromycin if not responsive. -appreciate dietary consultation 3. Hypokalemia, acute, present on admission, active. -with patient with hypokalemia secondary to protracted nausea and vomiting. Serum potassium on admission was 3.3. -improved to 3.8 with repletion but then again decreased to 3.3 and was repleted today. Will continue to follow 4. Essential Hypertension, chronic, stable -blood pressure on admission to the ER was 135/95. Subsequent blood pressure on admission to the floor was 137/96. -the patient takes amlodipine 10 mg and lisinopril 10 mg daily. He is profoundly orthostatic (but not symptomatic). Will hold home medications for now and monitor as he is rehydarted and tolerates more of a diet. 5. Gastroesophageal reflux, acute, present on admission, active -the patient describes reflux symptoms with heartburn and acid taste in his mouth as result of gastroparesis. He also reports a narrowing of his esophagus on prior EGD. -patient is receiving Reglan 10 mg PO AC. - Will continue Protonix 40 mg daily. 6. Bipolar 1 disorder, chronic, stable. -will continue the patient's routine medication hydroxyzine 25 mg 3 times daily. -the patient takes mirtazapine daily but does not recall the dose, ordered mirtazapine 15 mg at bedtime. VTE prophylaxis: Enoxaparin 40 mg daily Code status: Full code. Dispo: remains observation, may discharge once adqeuately tolerating some oral intake, suspect this to be tomorrow.
[2020-02-14] MEDS: MIRTAZAPINE 15 MG TABLET PO (21:20)
[2020-02-14] MEDS: SODIUM CHLORIDE 0.9% FLUSH 10 ML IV (21:20)
--- NOTE | 2020-02-14 22:12 | PC.NURSE ---
bladder scan 350cc, pt states he does not feel like voiding yet. will cont to monitor.
[2020-02-15 00:07] VITALS: BP 140/108; PULSE 98; RESP 16; TEMP 36.2; O2SAT 99
[2020-02-15] MEDS: HYDROMORPHONE 0.5 MG INJ IV ×2 (00:14→06:17)
[2020-02-15] MEDS: MELATONIN 3 MG TABLET 6 MG PO (01:29)
[2020-02-15 04:00] VITALS: RESP 16; TEMP 36.1; O2SAT 98
[2020-02-15 04:43] VITALS: BP 112/76; BP 54/41; BP 92/51; PULSE 92; PULSE 94; PULSE 97
[2020-02-15 05:00] VITALS: O2SAT 98
[2020-02-15] MEDS: PANTOPRAZOLE 40 MG TABLET PO (06:17)
[2020-02-15 07:49] LABS: BUN Creatinine Ratio 18.4 (6-22); Blood Urea Nitrogen 14 mg/dL (9-20); Calcium 8.9 mg/dL (8.4-10.2); Carbon Dioxide 30 mmol/L (22-32); Chloride 103 mmol/L (98-107); Estimated Glomerular Filt Rate > 60.0 mL/min (>60); Glucose 88 mg/dL (70-100); HEMOLYSIS < 15 (0-50); Magnesium 1.8 mg/dL (1.6-2.3); Potassium 3.4 mmol/L (3.4-5.1); Sodium 136 mmol/L (137-145)
[2020-02-15 08:00] VITALS: BP 149/111; PULSE 99; RESP 16; TEMP 36.1; O2SAT 100
--- NOTE | 2020-02-15 08:19 | PM.DS.1 ---
History of Present Illness History of Present Illness Date Patient Seen: 02/15/20 Time Patient Seen: 08:19 Chief complaint: released yesterday,vomiting still Narrative: As per DESIRE Oh: Mr. Valentin Noble is a 27-year-old male with a past medical history significant for diabetes mellitus type 1 using an insulin pump with associated gastroparesis and neuropathy, hypertension, history MRSA, drop foot, bipolar depression, and anxiety who presents to the hospital with persistent nausea and vomiting. Patient was admitted to the hospital from 02/09/2020 to 02/11/2020 for diabetic ketoacidosis with acute kidney injury secondary to nausea vomiting dehydration. The patient states that he continued to have abdominal pain since discharge and experienced continued nausea vomiting of bilious emesis that was nonbloody. At the time of discharge patient had been restarted on his insulin pump and his serum glucose was 215, interrogation of the pump finds that no insulin is been delivered since 12:48 a.m... The patient returns to the ER today with glucose is 64 having been unable to keep down any food or fluids. He continues to complain of moderate constant right-sided abdominal pain with no exacerbating or relieving factors. He does report associated reflux symptoms with acid taste in his mouth. He describes the symptoms as the same he experienced while he was admitted. The patient reports no complaints of fevers or chills, nasal congestion or sore throat. He denies orthostatic dizziness. He has had no complaints of chest pain other than her reflux symptoms. He denies shortness of breath cough or wheezing. He has abdominal pain and nausea as above. He denies complaints of diarrhea or constipation has had no foul smelling stool, hematochezia or melena. Upon arrival to the ER the patient has a temperature of 98.7?, heart rate of 117, blood pressure 135/95, respirations of 14 saturating 99% on room air. An ultrasound of the abdomen finds mild liver heterogenicity with normal gallbladder and normal pancreas, appendix is not visualized. On laboratory analysis he has white count of 8.3 with no shift, hemoglobin of 13.9 hematocrit of 40.8 and platelets of 235. On chemistry has a sodium 136, potassium of 3.3, BUN of 14 and creatinine 0.83. His serum glucose is 70. He has a total bilirubin of 0.9, AST 46, ALT of 23 and alkaline phosphatase of 85. His lactic acid is 0.8 with a procalcitonin less than 0.05. Has a total CK of 336, CK-MB of 0.37 with an index is 0.1. His troponin is negative at less than 0.012. His serum ketones are 2.96. While in the ER the insulin pump is turned off and he received 2 doses 2.5 g of dextrose.. Hydromorphone 0.5 mg administered x2 along with an Zofran and Protonix. The patient is admitted to the hospital for gastroparesis secondary to type 1 diabetes resulting in hypoglycemia. Discharge Providers Provider Date of admission: 02/12/20 18:51 Discharge Date: 02/15/20 Primary care physician: Doctor Shana MD Consults: 02/12/20 20:12 Consult to Discharge Planning Routine Comment: 02/13/20 18:24 Consult to Dietitian, Adult Routine Comment: Reason For Exam: gastroparesis, DM1 Discharge provider: Jagjit Phipps DO Summary Hospital Course Discharge Diagnosis: Please see hospital course by problem list noted below. Hospital Course: This is a 29-year-old male patient with history of type 1 diabetes managed with a insulin pump who was recently discharged for mild DKA and acute kidney injury and returned for persistent abdominal pain with nausea and vomiting and hypoglycemia secondary to gastroparesis. 1. Diabetes type 1, with acute hypoglycemia, present on admission, improved hypoglycemia. -the patient was discharged just over 24 hours Prior to admission following admission for DKA with acute kidney injury and dehydration secondary to persistent nausea vomiting. -Patient was hypoglycemic Likely because of decreased oral intake in the setting of uncontrolled gastroparesis. -Has resumed insulin pump therapy, he uses a continuous glucose monitor but does not currently have any supplies in this state as he usually resides in [place]. 2. Diabetic polyneuropathy with gastroparesis, acute present on admission, active. -the patient reported continuing nausea vomiting following discharge from last admission being unable to keep food or fluids down. - reglan changed from prn to 10 mg IV prior to meals initially, now improved and tolerating a diet on the day of discharge. 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 -appreciate dietary consultation 3. Hypokalemia, acute, present on admission, active. -with patient with hypokalemia secondary to protracted nausea and vomiting. Serum potassium on admission was 3.3. -improved to 3.8 with repletion but then again decreased to 3.3 and was repleted again. 4. Essential Hypertension, chronic, stable -blood pressure on admission to the ER was 135/95. Subsequent blood pressure on admission to the floor was 137/96. -the patient takes amlodipine 10 mg and lisinopril 10 mg daily. He is profoundly orthostatic (but not symptomatic). Held home medications initially, but these can be restarted upon discharge given his elevated Blood pressures after discharge. 5. Gastroesophageal reflux, acute, present on admission, active -the patient describes reflux symptoms with heartburn and acid taste in his mouth as result of gastroparesis. He also reports a narrowing of his esophagus on prior EGD. -continue his outpatient PPI therapy upon discharge, given protonix while here. 6. Bipolar 1 disorder, chronic, stable. -continued the patient's routine medication hydroxyzine 25 mg 3 times daily. Exam Vital Signs (past 8 hours): - 02/15/20 04:00 02/15/20 04:43 02/15/20 05:00 Temperature 96.9 F L Pulse Rate [Orthostatic Lying] 92 H Pulse Rate [Orthostatic Sitting] 94 H Pulse Rate [Orthostatic Standing] 97 H Respiratory Rate 16 Blood Pressure [Orthostatic Lying] 112/76 Blood Pressure [Orthostatic Sitting] 92/51 L Blood Pressure [Orthostatic Standing] 54/41 L Pulse Oximetry 98 98 Oxygen Delivery Method Room Air Oxygen Flow Rate 0 Narrative Exam Narrative: GENERAL APPEARANCE: well developed, chronically ill-appearing young male who appears older than his stated age. HEENT: Normocephalic, PERRLA, conjunctiva clear, EOMs intact without nystagmus, no sinus tenderness to percussion, no rhinorrhea, mucous membranes are dry and pink, tongue is smooth NECK/THYROID: neck supple, nontender, no JVD, no thyromegaly, trachea midline. LYMPH NODES: no cervical or supraclavicular lymphadenopathy. SKIN: [place], warm and dry, no visible lesions, rashes, ulcerations HEART: regular rate and rhythm, S1-S2, no murmur, no rubs or gallops, brisk capillary refill, no edema LUNGS: clear to auscultation bilaterally, no coarseness crackles or wheezing, no cough present CHEST: Symmetrical movement, no accessory muscle use, good tidal volume. ABDOMEN: Soft, no distention, epigastric and right-sided abdominal pain on palpation, no guarding or peritoneal signs, no organomegaly, active bowel tones. EXTREMITIES: moves all extremities, strength is 5/5 and symmetrical, no deformities or joint effusions, no cyanosis or clubbing NEUROLOGIC: AAO x4, no focal neurologic deficits, cranial nerves II-XII grossly intact, BLE neuropathy, hearing grossly normal to speech. PSYCH: cooperative, appropriate with stable behavior Objective Labs Result Diagrams: 02/12/20 13:50 02/15/20 07:20 Labs: Laboratory Results - last 24 hr 02/15/20 02/15/20 07:20 07:20 Sodium 136 L Potassium 3.4 Chloride 103 Carbon Dioxide 30 BUN 14 Creatinine 0.76 Estimated GFR > 60.0 BUN/Creatinine Ratio 18.4 Glucose 88 Calcium 8.9 Magnesium Cancelled 1.8 PFSH Medical History Bipolar disorder with depression Blurry vision, bilateral Diabetes type 1, uncontrolled Diabetic gastroparesis Diabetic neuropathy History of MRSA infection History of pneumonia Marijuana use Nausea and vomiting Surgical History No pertinent past surgical history Family History Mother No known health problems Father No known health problems Social History household members: family Smoking Status: Never smoker Discharge Plan Discharge Plan Patient Disposition: Home Provider Discharge Comment: You were admitted to the hospital with low blood sugars and inability to keep food or water down. Please continue your medications, follow up with your strike off machine operator in [place] when you return. 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
[2020-02-15] MEDS: METOCLOPRAMIDE HCL 10 MG TABLET PO (08:55)
[2020-02-15] MEDS: hydrOXYzine pamoate 25 MG CAPSULE PO (08:55)
[2020-02-15] MEDS: lisinopriL 10 MG TABLET PO (08:56)
[2020-02-15 10:24] VITALS: O2SAT 98
--- NOTE | 2020-02-15 10:26 | PC.NURSE ---
Pt denies nausea, denies pain; BTs present; Abdomen soft, non-tender; LS clear; d/c instructions reviewed with patient, with particular emphasis on dietary instructions, as related to paresis; pt d/c at 1015
== END 2020-02-15 10:15 | disposition home or self-care (01) ==
LOC: ED 18:30 → AC 18:52
PROVIDERS: Internal Medicine; Nurse Practitioner Adult Health; Admitting Provider Internal Medicine; Emergency Provider Emergency Medicine; Referring Provider Emergency Medicine; Visit Provider Internal Medicine
DX: K31.84 Gastroparesis (principal); E10.649 Type 1 diabetes mellitus with hypoglycemia without coma; E10.42 Type 1 diabetes mellitus with diabetic polyneuropathy; R11.2 Nausea with vomiting, unspecified; I10 Essential (primary) hypertension; E78.5 Hyperlipidemia, unspecified; Z96.41 Presence of insulin pump (external) (internal); Z79.4 Long term (current) use of insulin; F31.9 Bipolar disorder, unspecified; K21.9 Gastro-esophageal reflux disease without esophagitis; Z20.822 Contact with and (suspected) exposure to COVID-19
CPT/HCPCS: 36415; 76700; 80048; 80053; 81003; 81015; 82009; 82550; 82553; 82607; 82746; 82962; 83540; 83550; 83605; 83690; 83735; 84145; 84484; 85025; 87040; 87635; 93005; 96361; 96374; 96375; 96376; 99284; C9803; G0378; C9113; J1170; J2405; J2765; J3480

== ENCOUNTER 2023-07-08 11:10 | Observation (INO) | payer OTHER, SELFPAY ==
[2020-02-12 19:02] VITALS: BMI 21.9
[2023-07-08] VITALS (25 sets, daily range): BP systolic 119–190; BP diastolic 81–118; PULSE 71–96; RESP 12–29; TEMP 36.2–36.7; O2SAT 95–100; BMI 26.5
--- NOTE | 2023-07-08 11:41 | PC.NURSE ---
pt came to ED today because he starting to go into DKA. Pt BG at triage >500 and blood sent to lab. Pt skin pale, cool and diaphoretic. Reports that he started to feel nauseous last night and began vomiting this morning. VS WNL
[2023-07-08 11:57] LABS: Fractionated Inspired Oxygen 21; HCO3 VBG 16 mmol/L (24-28); Oxygen Saturation VBG 93 % (70-75); PCO2 VBG 24.8 mmHg (45-50); PO2 VBG 62 mmHg (35-45); Total CO2 VBG 17 mmol/L (24-29); pH VBG 7.43 (7.33-7.43)
[2023-07-08 12:06] LABS: Add Manual Diff / Slide Review NO; Basophils Absolute Auto 0 /uL (0-100); Basophils Percent Auto 0.4 % (0-2); Eosinophils Absolute Auto 0 /uL (0-450); Eosinophils Percent Auto 0.2 % (2-4); Hematocrit 36.7 % (41-53); Hemoglobin 11.5 g/dL (13.5-17.5); Lymphocytes Absolute Auto 1200 /uL (1100-4500); Lymphocytes Percent Auto 11.5 % (25-40); Mean Corpuscular HGB Conc 31.4 % (30-36); Mean Corpuscular Hemoglobin 22.6 PG (26-34); Mean Corpuscular Volume 71.9 fL (80-100); Monocytes Absolute Auto 400 /uL (0-900); Monocytes Percent Auto 3.9 % (3-14); Neutrophils Absolute Auto 8900 /uL (1500-7000); Platelet Count 353 X10^3/uL (150-400); Red Cell Distribution Width 17.7 % (11.6-14.8); White Blood Cell Count 10.6 X10^3/uL (4.5-11.0)
[2023-07-08 12:21] LABS: Alanine Aminotransferase 21 IU/L (<50); Albumin 5.1 g/dL (3.5-5.0); Albumin Globulin Ratio 1.8 (1.0-2.8); Alkaline Phosphatase 96 U/L (38-126); Aspartate Aminotransferase 25 IU/L (17-59); BUN Creatinine Ratio 22.1 (6-22); Blood Urea Nitrogen 36 mg/dL (9-20); Calcium 9.7 mg/dL (8.4-10.2); Carbon Dioxide 15 mmol/L (22-32); Chloride 97 mmol/L (98-107); Estimated Glomerular Filt Rate 57 mL/min (>60); Globulin 2.9 g/dL (1.7-4.1); HEMOLYSIS < 15 (0-50); Potassium 4.9 mmol/L (3.4-5.1); Sodium 133 mmol/L (137-145)
[2023-07-08 12:22] LABS: Glucose 618 mg/dL (70-100); Lactate (Lactic Acid) 2.5 mmol/L (0.7-2.1)
[2023-07-08] MEDS: SODIUM CHLORIDE 0.9% 1,000 ML 1000 ML IV ×3 (12:34→15:09)
[2023-07-08 12:40] LABS: Ketones (Beta-Hydroxybutyrate) 4.76 mmol/L (<0.27)
--- NOTE | 2023-07-08 13:10 | ED.GENADULT ---
HPI - General Adult General Chief complaint: Diabetic Problem Stated complaint: VOMITING, WEAKNESS Time Seen by Provider: 07/08/23 11:38 Source: patient, RN notes reviewed and old records reviewed Mode of arrival: Ambulatory Limitations: no limitations History of Present Illness HPI narrative: This is a 33-year-old male history of insulin-dependent diabetes with insulin pump who states last night started to read high on his monitor. Patient states he did refill his insulin pump yesterday. He states that his blood sugars continued to read high and he started having abdominal pain and vomiting earlier this morning which has been persistent. No reported fevers no cold cough or congestion. He describes abdominal pain that radiates to his back. Denies any chest pain or shortness of breath. States he has had some diarrhea the last couple hours denies any black or bloody stools. Has had some poly urea, no dysuria urgency frequency. No rash skin changes. Patient states nothing that he is aware of that might have triggered his glucose to be high. He has had issues with DKA in the past. Patient states he is on medication for hypertension and hypothyroidism. He denies any major surgeries. He is allergies to aspirin, ibuprofen he is supposed to avoid because of his kidney function and hydrocodone. He states he tolerates other narcotics without issue. Denies tobacco or regular alcohol, uses marijuana denies any other recreational drugs. Related Data Home Medications Medication Instructions Recorded Confirmed amitriptyline 25 mg PO BEDTIME insomnia 12/30/17 02/13/20 metoclopramide HCl 10 mg tablet 10 mg PO TID nausea 12/30/17 02/12/20 (Reglan) Acid [employer] (omeprazole) 40 mg PO BID 02/12/20 02/12/20 Flexeril 20 mg PO TID 02/12/20 02/12/20 hydroxyzine HCl 25 mg PO TID 02/12/20 02/12/20 mirtazapine 02/12/20 Previous Rx's Medication Instructions Recorded amlodipine 5 mg tablet (Norvasc) 10 mg (2 x 5 mg) PO DAILY #30 tabs 02/11/20 lisinopril 10 mg tablet 10 mg PO DAILY #30 tabs 02/11/20 Allergies Allergy/AdvReac Type Severity Reaction Status Date / Time aspirin [ASPIRIN] Allergy Unknown MAKES ME Verified 02/09/20 10:12 GO DEAF hydrocodone [HYDROCODONE] AdvReac Intermediate VOMITING Verified 02/09/20 10:12 ibuprofen [IBUPROFEN] AdvReac Intermediate HURTS Verified 02/09/20 10:12 KIDNEYS Review of Systems Review of Systems ROS Unobtainable: All systems reviewed & are unremarkable except as noted in HPI and below Patient History Medical History Marijuana use History of MRSA infection History of pneumonia Blurry vision, bilateral Diabetic neuropathy Bipolar disorder with depression Nausea and vomiting Diabetes type 1, uncontrolled Diabetic gastroparesis Surgical History No pertinent past surgical history Family History Mother No known health problems Father No known health problems Social History household members: family Smoking Status: Never smoker alcohol intake: former Smoking Status: Never smoker alcohol intake frequency: other Substance Use Type: marijuana Exam Narrative Exam Narrative: GENERAL: Alert and oriented x three, male in moderate distress. HEENT: Head normocephalic, atraumatic, EOMI, pupils reactive, face symmetric, moist mucous membranes NECK: Supple, full range of motion CARDIOVASCULAR: Regular rate and rhythm without murmurs, rubs or gallops. No JVD. No edema bilateral lower extremities. RESPIRATORY: Breath sounds equal bilaterally, no wheezes rales or rhonchi. No tachypnea or accessory muscle use. ABDOMEN: Soft, positive for generalized abdominal tenderness. Normoactive bowel sounds all 4 quadrants. No guarding or rebound, rigidity, no mass : No CVA tenderness EXTREMITIES: Normal range of motion, no clubbing or edema. Neurovascularly intact NEUROLOGICAL: Cranial nerves II through XII grossly intact. Moving all extremities SKIN: Warm, dry, no petechiae, no rashes or lesions. Initial Vital Signs Initial Vital Signs: Vital Signs Temperature 97.6 F 07/08/23 11:16 Pulse Rate 83 07/08/23 11:16 Respiratory Rate 18 07/08/23 11:16 Blood Pressure 138/90 07/08/23 11:16 Pulse Oximetry 98 07/08/23 11:16 Oxygen Delivery Method Room Air 07/08/23 11:16 Course Orders Ordered: ED Orders 07/08/23 11:38 EKG-12 Lead Stat 07/08/23 11:49 VBG [Venous Blood Gas] Stat 07/08/23 11:57 Complete Blood Count AUTO DIFF Stat Comprehensive Metabolic Panel Stat Ketones (Beta-Hydroxybutyrate) Stat Lactate (Lactic Acid) Stat Lipase Stat 07/08/23 12:35 Urine Drug Screen, Rapid Stat Urine Microscopic Stat Hydromorphone HCl (Hydromorphone 0.5 Mg Inj) 0.5 mg IV Q2H PRN PRN Reason: Pain, Moderate (4-6) INSULIN DRIP PREMIX (Myxredlin Drip Premix) 100 unit in 100 mls @ 8.392 mls/hr IV TITRATE XENA; Protocol Last Titration: 07/08/23 17:46 Dose: 0.02 unit/kg/hr, 1.6 mls/hr Documented By: VEE Co-signed By: MS Titration: 07/08/23 16:02 Dose: 0.05 unit/kg/hr, 4 mls/hr Documented By: VEE Co-signed By: MS Titration: 07/08/23 15:09 Dose: 0.1 unit/kg/hr, 8 mls/hr Documented By: VEE Co-signed By: MS Titration: 07/08/23 14:30 Dose: 0 unit/kg/hr, 0 mls/hr Documented By: KB Co-signed By: MPO Admin: 07/08/23 14:23 Dose: 0.1 unit/kg/hr, 8.392 mls/hr Documented By: KB Co-signed By: ROBERTO Sodium Chloride (Normal Saline 0.45%) 1,000 mls @ 100 mls/hr IV CONT XENA INSULIN DRIP PREMIX (Myxredlin Drip Premix) 100 unit in 100 mls @ 8.392 mls/hr IV TITRATE XENA; Protocol Last Admin: 07/08/23 16:05 Dose: Not Given Documented By: VEE Dextrose/Sodium Chloride (Dextrose 5%-0.45% Ns) 1,000 mls @ 120 mls/hr IV CONT XENA Last Admin: 07/08/23 16:02 Dose: 120 mls/hr Documented By: VEE POTASSIUM CHLORIDE IN WATER (Potassium Cl 10 Meq/100 Ml Sully) 10 meq in 100 mls @ 100 mls/hr IV Q1H XENA Stop: 07/08/23 21:29 Last Admin: 07/08/23 17:50 Dose: 100 mls/hr Documented By: VEE Lorazepam (Lorazepam 2 Mg/Ml Inj) 0.5 mg IV Q4HR PRN PRN Reason: Anxiety Last Admin: 07/08/23 15:18 Dose: 0.5 mg Documented By: VEE Naloxone HCl (Naloxone 0.4 Mg/Ml Vial) 0.2 mg IV Q2MIN PRN PRN Reason: Opiate Reversal Prochlorperazine (Prochlorperazine 10 Mg/2 Ml Vial) 5 mg IV Q6HR PRN PRN Reason: Nausea Last Admin: 07/08/23 15:16 Dose: 5 mg Documented By: VEE Sodium Chloride (Sodium Chloride 0.9% Flush) 10 ml IV BID XENA Sodium Chloride (Sodium Chloride 0.9% Flush) 10 ml IV PRN PRN PRN Reason: Flush Discontinued Medications Sodium Chloride (Normal Saline 0.9%) 1,000 mls @ 1,000 mls/hr IV BOLUS ONE Stop: 07/08/23 13:28 Last Infusion: 07/08/23 13:47 Dose: Infused Documented By: Admin: 07/08/23 12:34 Dose: 1,000 mls/hr Documented By: RB Sodium Chloride (Normal Saline 0.9%) 1,000 mls @ 1,000 mls/hr IV BOLUS ONE Stop: 07/08/23 14:31 Last Infusion: 07/08/23 14:30 Dose: 0 mls/hr Documented By: Admin: 07/08/23 13:47 Dose: 1,000 mls/hr Documented By: KB Sodium Chloride (Normal Saline 0.9%) 1,000 mls @ 1,000 mls/hr IV BOLUS ONE Stop: 07/08/23 14:38 Last Admin: 07/08/23 15:09 Dose: 1,000 mls/hr Documented By: VEE Sodium Chloride (Normal Saline 0.45%) 1,000 mls @ 100 mls/hr IV CONT XENA POTASSIUM CHLORIDE IN WATER (Potassium Cl 10 Meq/100 Ml [place]) 10 meq in 100 mls @ 100 mls/hr IV Q1H XENA Stop: 07/08/23 16:14 Last Admin: 07/08/23 15:49 Dose: 100 mls/hr Documented By: Infusion: 07/08/23 15:38 Dose: Infused Documented By: Infusion: 07/08/23 14:45 Dose: 100 mls/hr Documented By: Infusion: 07/08/23 14:30 Dose: 0 mls/hr Documented By: Admin: 07/08/23 14:22 Dose: 100 mls/hr Documented By: SANDRA Insulin Human Regular (Insulin Regular 100 Unit/Ml 3 Ml Vial) 10 unit IV NOW ONE Stop: 07/08/23 14:08 Last Admin: 07/08/23 14:23 Dose: 10 unit Documented By: SANDRA Co-signed By: ROBERTO Morphine Sulfate (Morphine 4 Mg/Ml Inj) 4 mg IV NOW ONE Stop: 07/08/23 13:33 Last Admin: 07/08/23 13:47 Dose: 4 mg Documented By: SANDRA Ondansetron HCl (Ondansetron 4 Mg/2 Ml Inj) 4 mg IV NOW ONE Stop: 07/08/23 13:33 Last Admin: 07/08/23 13:50 Dose: 4 mg Documented By: SANDRA Vital Signs Vital signs: Vital Signs - 8 hr 07/08/23 11:16 07/08/23 11:27 07/08/23 11:30 Temperature 97.6 F Pulse Rate 83 86 86 Respiratory Rate 18 Blood Pressure 138/90 Pulse Oximetry 98 95 100 Oxygen Delivery Method Room Air 07/08/23 11:30 07/08/23 12:00 07/08/23 12:02 Temperature Pulse Rate 79 Respiratory Rate 29 H Blood Pressure 143/89 H 190/102 H Pulse Oximetry 100 Oxygen Delivery Method 07/08/23 12:02 07/08/23 12:31 07/08/23 12:33 Temperature Pulse Rate 89 Respiratory Rate 27 H Blood Pressure 172/94 H Pulse Oximetry 100 97 Oxygen Delivery Method 07/08/23 12:33 07/08/23 13:00 07/08/23 13:00 Temperature Pulse Rate 77 96 H Respiratory Rate 15 27 H Blood Pressure 185/118 H Pulse Oximetry 100 100 Oxygen Delivery Method 07/08/23 13:30 07/08/23 13:30 Temperature Pulse Rate 87 Respiratory Rate 27 H Blood Pressure 171/106 H Pulse Oximetry 99 Oxygen Delivery Method Medical Decision Making Lab Data 07/08/23 11:57 07/08/23 16:50 Labs: Lab Results 05/07/08/23 07/08/23 Range/Units 11:49 11:57 12:35 WBC 10.6 (4.5-11.0) X10^3/uL RBC 5.10 (4.5-5.9) X10^6/uL Hgb 11.5 L (13.5-17.5) g/dL Hct 36.7 L (41-53) % MCV 71.9 L (80-100) fL MCH 22.6 L (26-34) PG MCHC 31.4 (30-36) % RDW 17.7 H (11.6-14.8) % Plt Count 353 (150-400) X10^3/uL Neut % (Auto) 84.0 H (50-75) % Lymph % (Auto) 11.5 L (25-40) % [place] % (Auto) 3.9 (3-14) % Eos % (Auto) 0.2 L (2-4) % Baso % (Auto) 0.4 (0-2) % Neut # (Auto) 8900 H (4983-0714) /uL Lymph # (Auto) 1200 (1901-5317) /uL [place] # (Auto) 400 (0-900) /uL Eos # (Auto) 0 (0-450) /uL Baso # (Auto) 0 (0-100) /uL VBG pH 7.43 (7.33-7.43) VBG pCO2 24.8 L (45-50) mmHg VBG pO2 62 H (35-45) mmHg VBG HCO3 16 L (24-28) mmol/L VBG Total CO2 17 L (24-29) mmol/L VBG O2 Saturation 93 H (70-75) % VBG Base Excess -8.0 L (0-4) mmol/L FiO2 21 Sodium 133 L (137-145) mmol/L Potassium 4.9 (3.4-5.1) mmol/L Chloride 97 L (98-107) mmol/L Carbon Dioxide 15 L (22-32) mmol/L BUN 36 H (9-20) mg/dL Creatinine 1.63 H (0.66-1.25) mg/dL Estimated GFR 57 L (>60) mL/min BUN/Creatinine Ratio 22.1 H (6-22) Glucose 618 H* (70-100) mg/dL Hemoglobin A1c 8.3 H (4.0-6.0) % Lactate 2.5 H (0.7-2.1) mmol/L Calcium 9.7 (8.4-10.2) mg/dL Total Bilirubin 1.0 (0.2-1.3) mg/dL AST 25 (17-59) IU/L ALT 21 (<50) IU/L Alkaline Phosphatase 96 (38-126) U/L Total Protein 8.0 (6.3-8.2) g/dL Albumin 5.1 H (3.5-5.0) g/dL Globulin 2.9 (1.7-4.1) g/dL Albumin/Globulin Ratio 1.8 (1.0-2.8) Lipase 65 (23-300) U/L Urine RBC 1-5/hpf (0-5/HPF) Urine WBC None seen (0-5/HPF) Ur Squamous Epith Cells 0-1 /hpf (0-5/HPF) Urine Bacteria None seen (None) Ur Culture Indicated? Cult not indicated Vol Urine Centrifuged 10ml (spun) U Opiates 300ng/mL cut Negative (Negative) Ur Oxycodone Screen Negative (Negative) Urine Methadone Screen Negative (Negative) Ur Barbiturates Screen Negative (Negative) U Tricyclic Antidepress Negative (Negative) Ur Phencyclidine Scrn Negative (Negative) Ur Amphetamines Screen Negative (Negative) U Methamphetamines Scrn Negative (Negative) Ur MDMA Scrn (Ecstasy) Negative (Negative) U Benzodiazepines Scrn Negative (Negative) Urine Cocaine Screen Negative (Negative) U Marijuana (THC) Screen Positive H (Negative) Urine pH Normal (Normal) Urine Specific [place] Normal (Normal) Ketones 4.76 H (<0.27) mmol/L Ur Creatinine Normal (Normal) 05/30/24 Range/Units 13:50 WBC (4.5-11.0) X10^3/uL RBC (4.5-5.9) X10^6/uL Hgb (13.5-17.5) g/dL Hct (41-53) % MCV (80-100) fL MCH (26-34) PG MCHC (30-36) % RDW (11.6-14.8) % Plt Count (150-400) X10^3/uL Neut % (Auto) (50-75) % Lymph % (Auto) (25-40) % [place] % (Auto) (3-14) % Eos % (Auto) (2-4) % Baso % (Auto) (0-2) % Neut # (Auto) (4139-5426) /uL Lymph # (Auto) (8498-3722) /uL [place] # (Auto) (0-900) /uL Eos # (Auto) (0-450) /uL Baso # (Auto) (0-100) /uL VBG pH (7.33-7.43) VBG pCO2 (45-50) mmHg VBG pO2 (35-45) mmHg VBG HCO3 (24-28) mmol/L VBG Total CO2 (24-29) mmol/L VBG O2 Saturation (70-75) % VBG Base Excess (0-4) mmol/L FiO2 Sodium (137-145) mmol/L Potassium (3.4-5.1) mmol/L Chloride (98-107) mmol/L Carbon Dioxide (22-32) mmol/L BUN (9-20) mg/dL Creatinine (0.66-1.25) mg/dL Estimated GFR (>60) mL/min BUN/Creatinine Ratio (6-22) Glucose (70-100) mg/dL Hemoglobin A1c (4.0-6.0) % Lactate 3.4 H (0.7-2.1) mmol/L Calcium (8.4-10.2) mg/dL Total Bilirubin (0.2-1.3) mg/dL AST (17-59) IU/L ALT (<50) IU/L Alkaline Phosphatase (38-126) U/L Total Protein (6.3-8.2) g/dL Albumin (3.5-5.0) g/dL Globulin (1.7-4.1) g/dL Albumin/Globulin Ratio (1.0-2.8) Lipase (23-300) U/L Urine RBC (0-5/HPF) Urine WBC (0-5/HPF) Ur Squamous Epith Cells (0-5/HPF) Urine Bacteria (None) Ur Culture Indicated? Vol Urine Centrifuged U Opiates 300ng/mL cut (Negative) Ur Oxycodone Screen (Negative) Urine Methadone Screen (Negative) Ur Barbiturates Screen (Negative) U Tricyclic Antidepress (Negative) Ur Phencyclidine Scrn (Negative) Ur Amphetamines Screen (Negative) U Methamphetamines Scrn (Negative) Ur MDMA Scrn (Ecstasy) (Negative) U Benzodiazepines Scrn (Negative) Urine Cocaine Screen (Negative) U Marijuana (THC) Screen (Negative) Urine pH (Normal) Urine Specific [place] (Normal) Ketones (<0.27) mmol/L Ur Creatinine (Normal) Point of Care Testing Glucose POC 389 Urine Dip Bedside Urine Glucose 1000 mg/dl Bedside Urine Bilirubin - Negative Bedside Urine Ketone ++ 40 Urine Specific [place] 1.015 Bedside Urine Occult Blood + Bedside Urine pH 6.0 Bedside Urine Protein - Negative Bedside Urine Urobilinogen - Negative Bedside Urine Nitrite - Negative Bedside Urine Leukocytes - Negative Esterase Point of care testing: Point of Care Testing Glucose POC 389 Urine Dip Bedside Urine Glucose 1000 mg/dl Bedside Urine Bilirubin - Negative Bedside Urine Ketone ++ 40 Urine Specific [place] 1.015 Bedside Urine Occult Blood + Bedside Urine pH 6.0 Bedside Urine Protein - Negative Bedside Urine Urobilinogen - Negative Bedside Urine Nitrite - Negative Bedside Urine Leukocytes - Negative Esterase ECG Data Attestation: I personally reviewed and interpreted this ECG as follows: Interpretation: Sinus rhythm rate 83 ME 160 QRS of 92 QTC of 418. No acute ST changes depression or elevation. MDM Narrative Medical decision making narrative: 33-year-old male insulin-dependent diabetic with monitor and pump states he refilled it last but seems to be working okay started reading high last night and then developed abdominal pain and vomiting this morning. Patient appears to be close to DKA, he has not anion gap of 21 CO2 of 15 blood sugar 618 positive for ketones his pH of 7.43 on VBG. Patient white count of 10 hemoglobin is 11.5 down from previous, platelets are 353. Sodium 133 potassium 4 9 chloride 97 CO2 of 15 BUN 36 creatinine 1.63 glucose is 618, lactate of 2.5, LFTs are negative. Lipase is normal. Urine shows ketones 1-5 RBCs 0-1 squamous, positive for THC on UDS. Patient meets all criteria for DKA accept for his PH. Patient received 1L of saline, receiving a 2 L, some Zofran and pain medication. Discussed with Dr. Moore, hospitalist. Patient is not quite DKA but very close. He would ask that we give 10 units of IV subcu stop his insulin pump. Plan to treat him like a DKA with drip and fluids with potassium supplementation as per protocol here in [facility]. Plan for ICU but observation status. Discharge Plan Departure Patient Disposition: Admitted as Observation Clinical Impression: Hyperglycemia Admit Date/Time: 07/08/23 14:08 Admit Provider: Kiran Moore
[2023-07-08 13:12] LABS: Ur Creatinine Normal (Normal); Ur Specific Gravity Normal (Normal); Urine Amphetamines Negative (Negative); Urine Barbiturates Negative (Negative); Urine Benzodiazepines Negative (Negative); Urine Cocaine Negative (Negative); Urine MDMA Negative (Negative); Urine Methadone Negative (Negative); Urine Methamphetamines Negative (Negative); Urine Opiates Negative (Negative); Urine Oxycodone Negative (Negative); Urine Phencyclidine Negative (Negative); Urine THC Positive (Negative); Urine Tricyclic Antidepressant Negative (Negative); Urine pH Normal (Normal)
[2023-07-08 13:20] LABS: Urine Volume 10mL (spun)
[2023-07-08 13:21] LABS: Bacteria Urine None Seen; Culture Indicated Urine Cult Not Indicated; RBC Urine 1-5/HPF (0-5/HPF); Squamous Epithelial Cell Urine 0-1 /HPF (0-5/HPF); WBC Urine None Seen (0-5/HPF)
[2023-07-08 13:36] LABS: Reflexed Lactate in 2 Hours Y
[2023-07-08] MEDS: MORPHINE 4 MG/ML INJ IV (13:47)
[2023-07-08] MEDS: ONDANSETRON 4 MG/2 ML INJ IV (13:50)
[2023-07-08 14:00] LABS: Lipase 65 U/L (23-300)
[2023-07-08 14:11] LABS: Lactate 2HR (Lactic Acid Rflx) 3.4 mmol/L (0.7-2.1)
[2023-07-08] MEDS: POTASSIUM CHLORIDE IN WATER 10 MEQ/100 ML PIGGYBACK 100 MEQ IV ×6 (14:22→21:16)
[2023-07-08] MEDS: INSULIN DRIP PREMIX 100 UNIT/100 ML PLAST..BAG 8.392 UNIT IV (14:23)
[2023-07-08] MEDS: INSULIN REGULAR 100 UNIT/ML 3 ML VIAL 10 UNIT IV (14:23)
--- NOTE | 2023-07-08 15:00 | PM.HP.1 ---
History of Present Illness History of Present Illness Date Patient Seen: 07/08/23 Time Patient Seen: 15:04 Chief complaint: VOMITING, WEAKNESS Narrative: From ED doctor: This is a 33-year-old male history of insulin-dependent diabetes with insulin pump who states last night started to read high on his monitor. Patient states he did refill his insulin pump yesterday. He states that his blood sugars continued to read high and he started having abdominal pain and vomiting earlier this morning which has been persistent. No reported fevers no cold cough or congestion. He describes abdominal pain that radiates to his back. Denies any chest pain or shortness of breath. States he has had some diarrhea the last couple hours denies any black or bloody stools. Has had some poly urea, no dysuria urgency frequency. No rash skin changes. Patient states nothing that he is aware of that might have triggered his glucose to be high. He has had issues with DKA in the past. Patient states he is on medication for hypertension and hypothyroidism. He denies any major surgeries. He is allergies to aspirin, ibuprofen he is supposed to avoid because of his kidney function and hydrocodone. He states he tolerates other narcotics without issue. Denies tobacco or regular alcohol, uses marijuana denies any other recreational drugs. Updates: The patient had refilled his insulin pump last night and turn it back on and thought it was working fine. He became ill this morning with acute nausea, vomiting, diarrhea. He denies recent illness including URI symptoms, fevers, or chills. No hematemesis or blood per rectum. In general he does well with his pump. He was visiting from [place]. His grandfather lives in [place]. Denies any recent issues with blood sugars before the switch and Re loading of his pump. [facility] Medical History Marijuana use History of MRSA infection History of pneumonia Blurry vision, bilateral Diabetic neuropathy Bipolar disorder with depression Nausea and vomiting Diabetes type 1, uncontrolled Diabetic gastroparesis Surgical History No pertinent past surgical history Family History Mother No known health problems Father No known health problems Social History household members: family Smoking Status: Never smoker alcohol intake: former Meds Home Medications and Allergies Home Medications Medication Instructions Recorded Confirmed Type amitriptyline 25 mg PO BEDTIME insomnia 12/30/17 02/13/20 History metoclopramide HCl 10 mg tablet 10 mg PO TID nausea 12/30/17 02/12/20 History (Reglan) amlodipine 5 mg tablet (Norvasc) 10 mg (2 x 5 mg) PO DAILY #30 tabs 02/11/20 02/12/20 Rx lisinopril 10 mg tablet 10 mg PO DAILY #30 tabs 02/11/20 02/12/20 Rx Acid [employer] (omeprazole) 40 mg PO BID 02/12/20 02/12/20 History Flexeril 20 mg PO TID 02/12/20 02/12/20 History hydroxyzine HCl 25 mg PO TID 02/12/20 02/12/20 History mirtazapine 02/12/20 History Allergies Allergy/AdvReac Type Severity Reaction Status Date / Time aspirin [ASPIRIN] Allergy Unknown MAKES ME Verified 02/09/20 10:12 GO DEAF hydrocodone [HYDROCODONE] AdvReac Intermediate VOMITING Verified 02/09/20 10:12 ibuprofen [IBUPROFEN] AdvReac Intermediate HURTS Verified 02/09/20 10:12 KIDNEYS Review of Systems Review of Systems Narrative: For the last day. Nausea, vomiting. RI symptoms. No fevers, or chills. Exam Vital Signs (past 8 hours): - 07/08/23 11:16 07/08/23 11:27 07/08/23 11:30 Temperature 97.6 F Pulse Rate 83 86 86 Respiratory Rate 18 Blood Pressure 138/90 Pulse Oximetry 98 95 100 Oxygen Delivery Method Room Air 07/08/23 11:30 07/08/23 12:00 07/08/23 12:02 Temperature Pulse Rate 79 Respiratory Rate 29 H Blood Pressure 143/89 H 190/102 H Pulse Oximetry 100 Oxygen Delivery Method 07/08/23 12:02 07/08/23 12:31 07/08/23 12:33 Temperature Pulse Rate 89 Respiratory Rate 27 H Blood Pressure 172/94 H Pulse Oximetry 100 97 Oxygen Delivery Method 07/08/23 12:33 Temperature Pulse Rate 77 Respiratory Rate 15 Blood Pressure Pulse Oximetry 100 Oxygen Delivery Method Oxygen Delivery Method Room Air Narrative Exam Narrative: NAD, alert and oriented, fluent speech, anxious. Chronically ill in appearance. Normocephalic skull, EOMI, anicteric sclera, symmetric pupils. Oropharynx unremarkable, no droop. Neck supple, midline trachea, no adenopathy. Lungs clear, normal rate and effort. Heart regular, no murmur gallop or rub. Abdomen is soft, non distended and non tender. Extremities are free of edema. Skin is free of rash or lesions. Joints are not swollen or deformed. Judgment appears to be normal. Objective Labs 07/08/23 11:57 07/08/23 11:57 Labs: Laboratory Results - last 24 hr 07/08/23 07/08/23 07/08/23 11:49 11:57 12:35 WBC 10.6 RBC 5.10 Hgb 11.5 L Hct 36.7 L MCV 71.9 L MCH 22.6 L MCHC 31.4 RDW 17.7 H Plt Count 353 Neut % (Auto) 84.0 H Lymph % (Auto) 11.5 L [place] % (Auto) 3.9 Eos % (Auto) 0.2 L Baso % (Auto) 0.4 Neut # (Auto) 8900 H Lymph # (Auto) 1200 [place] # (Auto) 400 Eos # (Auto) 0 Baso # (Auto) 0 VBG pH 7.43 VBG pCO2 24.8 L VBG pO2 62 H VBG HCO3 16 L VBG Total CO2 17 L VBG O2 Saturation 93 H VBG Base Excess -8.0 L FiO2 21 Sodium 133 L Potassium 4.9 Chloride 97 L Carbon Dioxide 15 L BUN 36 H Creatinine 1.63 H Estimated GFR 57 L BUN/Creatinine Ratio 22.1 H Glucose 618 H* Lactate 2.5 H Calcium 9.7 Total Bilirubin 1.0 AST 25 ALT 21 Alkaline Phosphatase 96 Total Protein 8.0 Albumin 5.1 H Globulin 2.9 Albumin/Globulin Ratio 1.8 Lipase 65 Urine RBC 1-5/hpf Urine WBC None seen Ur Squamous Epith Cells 0-1 /hpf Urine Bacteria None seen Ur Culture Indicated? Cult not indicated Vol Urine Centrifuged 10ml (spun) U Opiates 300ng/mL cut Negative Ur Oxycodone Screen Negative Urine Methadone Screen Negative Ur Barbiturates Screen Negative U Tricyclic Antidepress Negative Ur Phencyclidine Scrn Negative Ur Amphetamines Screen Negative U Methamphetamines Scrn Negative Ur MDMA Scrn (Ecstasy) Negative U Benzodiazepines Scrn Negative Urine Cocaine Screen Negative U Marijuana (THC) Screen Positive H Urine pH Normal Urine Specific [place] Normal Ketones 4.76 H Ur Creatinine Normal 07/08/23 13:50 WBC RBC Hgb Hct MCV MCH MCHC RDW Plt Count Neut % (Auto) Lymph % (Auto) [place] % (Auto) Eos % (Auto) Baso % (Auto) Neut # (Auto) Lymph # (Auto) [place] # (Auto) Eos # (Auto) Baso # (Auto) VBG pH VBG pCO2 VBG pO2 VBG HCO3 VBG Total CO2 VBG O2 Saturation VBG Base Excess FiO2 Sodium Potassium Chloride Carbon Dioxide BUN Creatinine Estimated GFR BUN/Creatinine Ratio Glucose Lactate 3.4 H Calcium Total Bilirubin AST ALT Alkaline Phosphatase Total Protein Albumin Globulin Albumin/Globulin Ratio Lipase Urine RBC Urine WBC Ur Squamous Epith Cells Urine Bacteria Ur Culture Indicated? Vol Urine Centrifuged U Opiates 300ng/mL cut Ur Oxycodone Screen Urine Methadone Screen Ur Barbiturates Screen U Tricyclic Antidepress Ur Phencyclidine Scrn Ur Amphetamines Screen U Methamphetamines Scrn Ur MDMA Scrn (Ecstasy) U Benzodiazepines Scrn Urine Cocaine Screen U Marijuana (THC) Screen Urine pH Urine Specific [place] Ketones Ur Creatinine Assessment & Plan Assessment & Plan narrative: 1. DKA 1 (uses insulin pump), present on admission and active. 2. DM 1, present on admission and active. 3. SHAN, present on admission and active. 4. Hypovolemic hyponatremia, present on admission and active. PLAN: -insulin drip, IVF, monitor potassium. -symptomatic treatment of nausea and abdomen pain. Full code [place]iting from [place] (grandfather here) Admitted to observation status with a 1 midnight expectation for hospital need.
[2023-07-08] MEDS: PROCHLORPERAZINE 10 MG/2 ML VIAL 5 MG IV (15:16)
[2023-07-08] MEDS: LORazepam 2 MG/ML INJ 0.5 MG IV (15:18)
[2023-07-08] MEDS: DEXTROSE 5%-0.45% NS 1,000 ML 120 ML IV (16:02)
[2023-07-08 17:08] LABS: BUN Creatinine Ratio 25.2 (6-22); Blood Urea Nitrogen 29 mg/dL (9-20); Carbon Dioxide 25 mmol/L (22-32); Chloride 111 mmol/L (98-107); Estimated Glomerular Filt Rate > 60 mL/min (>60); Glucose 165 mg/dL (70-100); HEMOLYSIS < 15 (0-50); Potassium 3.7 mmol/L (3.4-5.1); Sodium 142 mmol/L (137-145)
[2023-07-08 17:09] LABS: Lactate (Lactic Acid) 1.4 mmol/L (0.7-2.1)
[2023-07-08 17:33] LABS: Hemoglobin A1C% w Est Avg Glu 8.3 % (4.0-6.0)
[2023-07-08 19:09] LABS: Allen Test for ABG Passed? Yes, Passed; Blood Gas Collection Site Left Radial; Fractionated Inspired Oxygen 21; HCO3 ABG 23 mmol/L (23-27); Oxygen Saturation ABG 97 % (95-100); PO2 ABG 96 mmHg (80-100); TCO2 ABG 24 mmol/L (23-27); pH ABG 7.35 (7.35-7.45)
[2023-07-08 19:33] LABS: MRSA (Nasal) PCR NOT DETECTED (Not Detect)
[2023-07-08] MEDS: SODIUM CHLORIDE 0.9% FLUSH 10 ML IV (21:17)
[2023-07-08 21:25] LABS: HEMOLYSIS < 15 (0-50)
[2023-07-08 21:41] LABS: BUN Creatinine Ratio 23.8 (6-22); Blood Urea Nitrogen 25 mg/dL (9-20); Carbon Dioxide 21 mmol/L (22-32); Chloride 111 mmol/L (98-107); Estimated Glomerular Filt Rate > 60 mL/min (>60); Glucose 126 mg/dL (70-100); Potassium 4.6 mmol/L (3.4-5.1); Sodium 139 mmol/L (137-145)
[2023-07-09] VITALS (13 sets, daily range): BP systolic 104–158; BP diastolic 68–95; PULSE 79–98; RESP 10–18; TEMP 36.8–37.1; O2SAT 96–98
[2023-07-09] MEDS: DEXTROSE 5%-0.45% NS 1,000 ML 120 ML IV (00:39)
[2023-07-09 03:20] LABS: BUN Creatinine Ratio 19.3 (6-22); Blood Urea Nitrogen 22 mg/dL (9-20); Calcium 7.9 mg/dL (8.4-10.2); Carbon Dioxide 22 mmol/L (22-32); Chloride 111 mmol/L (98-107); Estimated Glomerular Filt Rate > 60 mL/min (>60); Glucose 141 mg/dL (70-100); HEMOLYSIS < 15 (0-50); Potassium 3.8 mmol/L (3.4-5.1); Sodium 140 mmol/L (137-145)
[2023-07-09] MEDS: HYDROMORPHONE 0.5 MG INJ IV (04:30)
[2023-07-09] MEDS: INSULIN GLARGINE 100 UNIT/ML 3ML PEN 15 UNIT SUBCUT (08:14)
[2023-07-09] MEDS: INSULIN LISPRO 100 UNIT/ML 3ML VIAL SUBCUT (08:15)
--- NOTE | 2023-07-09 09:36 | CM.DANOTE ---
Addendum entered by GORDON De La Cruz 07/09/23 14:01: ADD: According to admission counselors, patient[place] likely not cover outpatient services in [facility]. Patient/family encouraged to contact [place] [employer] Finder P [phone] to learn about [facility] benefits. This BLACK ASH BURNER OPERATOR printed relevant information from [place] about the [place] [employer] ([place]) ([place]) to provide to patient and family. Included is information about what OHP may not cover, including out of state care, unless it is emergency care. Addendum entered by GORDON De La Cruz 07/09/23 10:19: ADD: According to RN; call received from susan Lowery P [phone] who reports concern about patient getting medical care and food stamps while visiting for 2 months. Susan wonders of patient's [place] state welfare coverage would provide same benefits in [facility]. Emailed the admission counselors with this question; could patient receive temporary medical and food stamps through [facility] vs temporary coverage with his [place] [facility] [place] plan? Awaiting feedback. Patient gives this team permission to coordinate/discuss care with susan Christianson. Original Note: Initial DCP Assessment Note Pt is a 33 yo male, resident of [place], [place], visiting his grandma and grandfather in [place], presents with vomiting and weakness, admitted for management of DKA. PCP: [facility] in [place], [place] (new provider, name unknown) Payer: [place] [facility] ([place], Welfare coverage) Reviewed chart, met w/patient to introduce self and review eventual discharge plan. Patient lives alone in [place], [place] and is indp in all aspects. Patient is unemployed and on disability benefits, related to the management of his diabetes, according to patient. Chart does not indicate that patient has MCR. Did not discuss insurance this visit. Patient reports that he has been helping his grandma and plans to remain in [place] one month. No barriers identified at this time to patient's safe discharge home w/family to assist; close outpatient f/u recommended. CM team will plan to follow clinical course closely in case any DC needs or concerns arise. GORDON Barba Discharge Planning/Care Management CM Discharge Assessment Start: 07/09/23 09:34 Freq: Status: Active Protocol: Document 07/09/23 09:34 GRETA (Rec: 07/09/23 09:35 GRETA [id number]) Discharge Planning Assessment Assigned Tableau Lead GORDON Gutierrez/Assigned Designee Name mother Ayala Contact Information [phone] Advance Directives? No Advance Directives on File No History Provided By Patient,Medical Record Prior Living Arrangements House Household Members family Type of transporation used prior to Drives own vehicle admit Independent with ADL's Yes Is patient alert and oriented? Yes Comment Patient has left foot drop which he wears a brace for. Barriers to Discharge No Discharge Plan Home Transportation Arrangement Family to provide transport Referrals Initiated None needed
[2023-07-09] MEDS: PROCHLORPERAZINE 10 MG/2 ML VIAL 5 MG IV (11:20)
[2023-07-09] MEDS: SODIUM CHLORIDE 0.9% FLUSH 10 ML IV (11:20)
[2023-07-09] MEDS: ACETAMINOPHEN 325 MG TABLET 650 MG PO (12:40)
[2023-07-09] MEDS: METOPROLOL IR 25 MG TABLET PO (12:40)
--- NOTE | 2023-07-09 15:41 | P.DS_ITS ---
History of Present Illness History of Present Illness Chief complaint: VOMITING, WEAKNESS Narrative: From ED doctor: This is a 33-year-old male history of insulin-dependent diabetes with insulin pump who states last night started to read high on his monitor. Patient states he did refill his insulin pump yesterday. He states that his blood sugars continued to read high and he started having abdominal pain and vomiting earlier this morning which has been persistent. No reported fevers no cold cough or congestion. He describes abdominal pain that radiates to his back. Denies any chest pain or shortness of breath. States he has had some diarrhea the last couple hours denies any black or bloody stools. Has had some poly urea, no dysuria urgency frequency. No rash skin changes. Patient states nothing that he is aware of that might have triggered his glucose to be high. He has had issues with DKA in the past. Patient states he is on medication for hypertension and hypothyroidism. He denies any major surgeries. He is allergies to aspirin, ibuprofen he is supposed to avoid because of his kidney function and hydrocodone. He states he tolerates other narcotics without issue. Denies tobacco or regular alcohol, uses marijuana denies any other recreational drugs. Updates: The patient had refilled his insulin pump last night and turn it back on and thought it was working fine. He became ill this morning with acute nausea, vomiting, diarrhea. He denies recent illness including URI symptoms, fevers, or chills. No hematemesis or blood per rectum. In general he does well with his pump. He was visiting from [place]. His grandfather lives in [place]. Denies any recent issues with blood sugars before the switch and Re loading of his pump. Discharge Providers Provider Date of admission: 07/08/23 14:08 Discharge Date: 07/09/23 Primary care physician: Doctor Shana MD Consults: None. Discharge provider: Kiran Moore MD Summary Hospital Course Discharge Diagnosis: 1. DKA 1 (uses insulin pump), present on admission and resolved. 2. DM 1, present on admission and active. 3. SHAN, present on admission and resolved. 4. Hypovolemic hyponatremia, present on admission and improved. Hospital Course: He was admitted with hyperglycemia and evidence of SHAN as well as DKA. He was treated with insulin drip and IV fluid resuscitation while monitoring and managing his potassium. His symptoms of nausea and abdominal pain improved he was able to advance his diet and transition back to subcutaneous insulin and then his pump on the day of discharge. He was able to run good sugars on his pump for several hours and 1 meal. He was felt to be stable for discharge home. Status at Discharge Cognitive/behavioral status at discharge: oriented Functional status at discharge: independent ambulation Overall status at discharge: patient is back to baseline Time Spent with Patient Time spent: Greater than 30 minutes Exam Vital Signs (past 8 hours): - 07/09/23 08:00 07/09/23 08:00 07/09/23 09:00 Pulse Rate 86 79 Respiratory Rate 14 18 Blood Pressure 158/94 H Pulse Oximetry 97 96 07/09/23 10:00 07/09/23 11:00 07/09/23 11:20 Pulse Rate 81 98 H 96 H Respiratory Rate 17 17 Blood Pressure 155/95 H Pulse Oximetry 97 Oxygen Delivery Method Room Air Oxygen Flow Rate 0 Narrative Exam Narrative: NAD, alert and oriented. Fluent speech. Lungs are clear, normal rate and effort. Heart is regular, no murmur gallop or rub. Abdomen is soft, non distended. Extremities are free of edema. Objective Labs 07/08/23 11:57 07/09/23 03:02 Labs: Laboratory Results - last 24 hr 07/08/23 07/08/23 07/08/23 11:57 16:50 18:59 ABG Sample Site Left radial ABG pH 7.35 ABG pCO2 42.0 ABG pO2 96 ABG HCO3 23 ABG Total CO2 24 ABG O2 Saturation 97 ABG Base Excess -3.0 L FiO2 21 Sodium 142 Potassium 3.7 D Chloride 111 H Carbon Dioxide 25 BUN 29 H Creatinine 1.15 Estimated GFR > 60 BUN/Creatinine Ratio 25.2 H Glucose 165 H D Hemoglobin A1c 8.3 H Lactate 1.4 Calcium 8.0 L Nasal Screen MRSA (PCR) Not detected 07/08/23 07/09/23 21:11 03:02 ABG Sample Site ABG pH ABG pCO2 ABG pO2 ABG HCO3 ABG Total CO2 ABG O2 Saturation ABG Base Excess FiO2 Sodium 139 140 Potassium 4.6 3.8 Chloride 111 H 111 H Carbon Dioxide 21 L 22 BUN 25 H 22 H Creatinine 1.05 1.14 Estimated GFR > 60 > 60 BUN/Creatinine Ratio 23.8 H 19.3 Glucose 126 H 141 H Hemoglobin A1c Lactate Calcium 8.0 L 7.9 L Nasal Screen MRSA (PCR) [facility] Medical History Marijuana use History of MRSA infection History of pneumonia Blurry vision, bilateral Diabetic neuropathy Bipolar disorder with depression Nausea and vomiting Diabetes type 1, uncontrolled Diabetic gastroparesis Surgical History No pertinent past surgical history Family History Mother No known health problems Father No known health problems Social History household members: family Smoking Status: Never smoker alcohol intake: former Discharge Assessment & Plan Assessment and Plan Assessment: 1. DKA 1 (uses insulin pump), present on admission and resolved. 2. DM 1, present on admission and active. 3. SHAN, present on admission and resolved. 4. Hypovolemic hyponatremia, present on admission and improved. Plan of Treatment: Discharge home. He was encouraged to set up with a new primary care if he was staying in [facility] for more than a very short time. He will continue with his CGM. Discharge Plan Discharge Plan Patient Disposition: Home Provider Discharge Comment: Stable for discharge home. Resume insulin pump at usual dose. Continue continuous glucose monitoring Discharge orders & Medications Prescriptions: Continued Acid Quality Control Systems Manager (omeprazole) 40 mg PO BID hydroxyzine HCl 25 mg PO TID levothyroxine 25 mcg Tablet 25 mcg PO DAILY diphenhydramine HCl 25 mg Tablet 25 mg PO BEDTIME PRN (Reason: Insomnia) metoprolol tartrate 25 mg Tablet 25 mg PO DAILY acetaminophen 500 mg Capsule 500 mg PO Q6H PRN (Reason: Pain (Scale Score 1-3)) metoclopramide HCl [Reglan] 10 mg Tablet 10 mg PO TID Medication counseling provided by Pharmacist: No Follow up/Referrals: Doctor Saldana MD [Primary Care Provider] - Discharge Health Status Multidrug resistant organism: No MDRO Diet/Activity/Treatments Diet: Carb-consistent/Diabetic Activity: As tolerated Visit Report/Discharge Packet Instructions: DI for Diabetic Ketoacidosis Stand Alone Forms: Patient Portal/API Discharge Data Primary Care Provider: Doctor Shana Attending Provider: Kiran Moore Admit Date/Time: 07/08/23 14:08 Quality VTE Deep Vein Thrombosis/Pulmonary Embolism Present on Admission: No
--- NOTE | 2023-07-09 16:34 | PC.NURSE ---
Discharge: Pt agreeable to discharge. Glucose stable, back on home CGM and insulin pump. IVs discontinued, telemetry removed. Information provided on switching medicaid [place] from [place] after move. Pt declined multidose insulin vials used in hospital. VSS. Pt wheeled via w/c to private vehicle with family member at approximately 1630.
== END 2023-07-09 16:30 | disposition home or self-care (01) ==
LOC: ED 14:10 → AC 14:11 → ICU 14:55
PROVIDERS: Admitting Provider Hospitalist; Emergency Provider Emergency Medicine; Referring Provider Emergency Medicine; Visit Provider Hospitalist
DX: E10.10 Type 1 diabetes mellitus with ketoacidosis without coma (principal); N17.9 Acute kidney failure, unspecified; E87.1 Hypo-osmolality and hyponatremia; Z96.41 Presence of insulin pump (external) (internal); Z79.4 Long term (current) use of insulin
CPT/HCPCS: 36415; 36600; 80048; 80053; 80305; 81003; 81015; 82009; 82805; 82962; 83036; 83605; 83690; 85025; 87797; 93005; 96361; 96365; 96366; 96368; 96372; 96375; 99284; G0378; J0780; J1170; J1815; J2060; J2270; J2405

== ENCOUNTER 2023-07-10 10:41 | Emergency (ER) | payer OTHER, SELFPAY ==
[2023-07-08 15:37] VITALS: BMI 26.5
[2023-07-10] VITALS (16 sets, daily range): BP systolic 127–182; BP diastolic 77–129; PULSE 78–91; RESP 12–33; TEMP 36.4–37.2; O2SAT 99–100; BMI 26.5
[2023-07-10] MEDS: SODIUM CHLORIDE 0.9% 1,000 ML 1000 ML IV ×2 (11:39→12:34)
[2023-07-10 11:41] LABS: Add Manual Diff / Slide Review NO; Basophils Absolute Auto 0 /uL (0-100); Basophils Percent Auto 0.5 % (0-2); Eosinophils Absolute Auto 0 /uL (0-450); Eosinophils Percent Auto 0.3 % (2-4); Hematocrit 34.6 % (41-53); Hemoglobin 11.2 g/dL (13.5-17.5); Lymphocytes Absolute Auto 1100 /uL (1100-4500); Lymphocytes Percent Auto 12.1 % (25-40); Mean Corpuscular HGB Conc 32.5 % (30-36); Mean Corpuscular Hemoglobin 22.8 PG (26-34); Mean Corpuscular Volume 70.2 fL (80-100); Monocytes Absolute Auto 500 /uL (0-900); Monocytes Percent Auto 4.9 % (3-14); Neutrophils Absolute Auto 7700 /uL (1500-7000); Neutrophils Percent Auto 82.2 % (50-75); Platelet Count 334 X10^3/uL (150-400); Red Blood Cell Count 4.93 X10^6/uL (4.5-5.9); Red Cell Distribution Width 17.9 % (11.6-14.8); White Blood Cell Count 9.4 X10^3/uL (4.5-11.0)
--- NOTE | 2023-07-10 11:49 | ED.NAVMDI ---
HPI - Nausea/Vomiting/Diarrhea General Chief complaint: Nausea/Vomiting/Diarrhea Stated complaint: was here t-1 vomitting started again Time Seen by Provider: 07/10/23 10:57 Source: patient Mode of arrival: Ambulatory History of Present Illness HPI Narrative: Patient is a 33-year-old male with history of insulin-dependent diabetes with an insulin pump presenting today with nausea vomiting. He was admitted to the hospital DKA, he was admitted for 1 midnight and discharged. He did not have any sort of infectious symptoms possibly a pump malfunction. Reports he has not really been able to keep much down vomiting again glucose is in the 200s. Reports all over abdominal pain. No chest pain or dizziness. No fevers or chills. Related Data Home Medications Medication Instructions Recorded Confirmed metoclopramide HCl 10 mg tablet 10 mg PO TID nausea 12/30/17 07/09/23 (Reglan) Acid Equipment Or Machinery Cleaner (omeprazole) 40 mg PO BID 02/12/20 07/09/23 hydroxyzine HCl 25 mg PO TID 02/12/20 07/09/23 acetaminophen 500 mg capsule 500 mg PO Q6H PRN Pain (Scale 07/09/23 07/09/23 Score 1-3) diphenhydramine HCl 25 mg tablet 25 mg PO BEDTIME PRN Insomnia 07/09/23 07/09/23 levothyroxine 25 mcg tablet 25 mcg PO DAILY 07/09/23 07/09/23 metoprolol tartrate 25 mg tablet 25 mg PO DAILY 07/09/23 07/09/23 Previous Rx's Medication Instructions Recorded metoclopramide HCl 10 mg tablet 10 mg PO Q8HR PRN nausea and 07/10/23 (Reglan) vomiting #20 tabs Allergies Allergy/AdvReac Type Severity Reaction Status Date / Time aspirin [ASPIRIN] Allergy Unknown MAKES ME Verified 07/10/23 10:52 GO DEAF hydrocodone [HYDROCODONE] AdvReac Intermediate VOMITING Verified 07/10/23 10:52 ibuprofen [IBUPROFEN] AdvReac Intermediate HURTS Verified 07/10/23 10:52 KIDNEYS Patient History Medical History (Updated 07/10/23 @ 15:35 by Ally Stearns DO) Marijuana use History of MRSA infection History of pneumonia Blurry vision, bilateral Diabetic neuropathy Bipolar disorder with depression Nausea and vomiting Diabetes type 1, uncontrolled Diabetic gastroparesis Surgical History No pertinent past surgical history Family History Mother No known health problems Father No known health problems Social History household members: family Smoking Status: Never smoker alcohol intake: former Smoking Status: Never smoker alcohol intake frequency: other Substance Use Type: marijuana Exam Initial Vital Signs Initial Vital Signs: Vital Signs Temperature 97.5 F L 07/10/23 10:49 Pulse Rate 78 07/10/23 10:49 Respiratory Rate 18 07/10/23 10:49 Blood Pressure 179/129 H 07/10/23 10:49 Pulse Oximetry 100 07/10/23 10:49 Oxygen Delivery Method Room Air 07/10/23 10:49 GENERAL: Alert 33-year-old male appears older than stated age HEENT: Head atraumatic,EOMI, pupils reactive, face symmetric, [moist] mucous membranes CARDIOVASCULAR: Regular rate and rhythm without murmurs, rubs or gallops. RESPIRATORY: Breath sounds equal bilaterally, no wheezes rales or rhonchi. ABDOMEN: Soft, nondistended, diffuse periumbilical pain no guarding or rebound EXTREMITIES: Normal range of motion, no clubbing or edema. Neurovascularly intact NEUROLOGICAL: Alert and oriented x4.Normal gait and speech. SKIN: Warm, dry, no laceration, no petechiae, no rashes or lesions. Course Orders Ordered: ED Orders 07/10/23 11:34 Complete Blood Count AUTO DIFF Stat Comprehensive Metabolic Panel Stat Ketones (Beta-Hydroxybutyrate) Stat Lactate (Lactic Acid) Stat Lipase Stat 07/10/23 11:43 Venous Blood Gas Stat 07/10/23 11:59 CT abdomen pelvis w con Stat 07/10/23 12:09 Urine Microscopic Stat Discontinued Medications Diphenhydramine HCl (Diphenhydramine 50 Mg/Ml Vial) 25 mg IV NOW ONE Stop: 07/10/23 12:00 Last Admin: 07/10/23 12:10 Dose: 25 mg Documented By: SHADI Sodium Chloride (Normal Saline 0.9%) 1,000 mls @ 1,000 mls/hr IV BOLUS ONE Stop: 07/10/23 11:56 Last Infusion: 07/10/23 12:33 Dose: Infused Documented By: Admin: 07/10/23 11:39 Dose: 1,000 mls/hr Documented By: SHADI Sodium Chloride (Normal Saline 0.9%) 1,000 mls @ 1,000 mls/hr IV BOLUS ONE Stop: 07/10/23 13:13 Last Infusion: 07/10/23 13:05 Dose: Infused Documented By: Admin: 07/10/23 12:34 Dose: 1,000 mls/hr Documented By: SHADI Pantoprazole Sodium (Pantoprazole 40 Mg Vial) 40 mg IV NOW ONE Stop: 07/10/23 12:15 Last Admin: 07/10/23 12:34 Dose: 40 mg Documented By: SHADI Prochlorperazine (Prochlorperazine 10 Mg/2 Ml Vial) 10 mg IV NOW ONE Stop: 07/10/23 12:00 Last Admin: 07/10/23 12:10 Dose: 10 mg Documented By: SHADI Vital Signs Vital signs: Vital Signs - 8 hr 07/10/23 10:49 07/10/23 10:56 07/10/23 11:00 Temperature 97.5 F L Pulse Rate 78 88 88 Respiratory Rate 18 Blood Pressure 179/129 H Pulse Oximetry 100 100 100 Oxygen Delivery Method Room Air 07/10/23 11:30 07/10/23 12:00 07/10/23 12:09 Temperature Pulse Rate 82 89 Respiratory Rate 19 Blood Pressure 180/120 H Pulse Oximetry 100 Oxygen Delivery Method 07/10/23 12:09 07/10/23 12:10 07/10/23 12:31 Temperature Pulse Rate 90 87 91 H Respiratory Rate 33 H Blood Pressure Pulse Oximetry 100 Oxygen Delivery Method 07/10/23 12:32 07/10/23 12:32 07/10/23 13:00 Temperature Pulse Rate 89 Respiratory Rate 14 Blood Pressure 182/97 H 156/77 H Pulse Oximetry 100 Oxygen Delivery Method 07/10/23 13:00 07/10/23 13:30 07/10/23 13:30 Temperature Pulse Rate 89 82 Respiratory Rate 26 H 23 Blood Pressure 146/98 H Pulse Oximetry 99 99 Oxygen Delivery Method 07/10/23 14:00 07/10/23 14:00 07/10/23 14:30 Temperature Pulse Rate 81 Respiratory Rate 22 Blood Pressure 144/95 H 147/91 H Pulse Oximetry 99 Oxygen Delivery Method 07/10/23 14:30 07/10/23 15:00 07/10/23 15:00 Temperature Pulse Rate 80 80 Respiratory Rate 19 12 Blood Pressure 136/90 Pulse Oximetry 99 99 Oxygen Delivery Method 07/10/23 15:30 07/10/23 15:30 07/10/23 15:44 Temperature 99 F Pulse Rate 80 Respiratory Rate 20 Blood Pressure 127/81 Pulse Oximetry 99 Oxygen Delivery Method MDM - Nausea/Vomiting/Diarrhea Lab Data 07/10/23 11:34 07/10/23 11:34 Labs: Lab Results 07/10/23 07/10/23 07/10/23 Range/Units 11:34 11:43 12:09 WBC 9.4 (4.5-11.0) X10^3/uL RBC 4.93 (4.5-5.9) X10^6/uL Hgb 11.2 L (13.5-17.5) g/dL Hct 34.6 L (41-53) % MCV 70.2 L (80-100) fL MCH 22.8 L (26-34) PG MCHC 32.5 (30-36) % RDW 17.9 H (11.6-14.8) % Plt Count 334 (150-400) X10^3/uL Neut % (Auto) 82.2 H (50-75) % Lymph % (Auto) 12.1 L (25-40) % Lincoln % (Auto) 4.9 (3-14) % Eos % (Auto) 0.3 L (2-4) % Baso % (Auto) 0.5 (0-2) % Neut # (Auto) 7700 H (8922-2429) /uL Lymph # (Auto) 1100 (3383-5440) /uL Lincoln # (Auto) 500 (0-900) /uL Eos # (Auto) 0 (0-450) /uL Baso # (Auto) 0 (0-100) /uL VBG pH 7.48 H (7.33-7.43) VBG pCO2 28.3 L (45-50) mmHg VBG pO2 37 (35-45) mmHg VBG HCO3 21 L (24-28) mmol/L VBG Total CO2 22 L (24-29) mmol/L VBG O2 Saturation 76 H (70-75) % VBG Base Excess -2.0 L (0-4) mmol/L FiO2 21 Sodium 137 (137-145) mmol/L Potassium 3.4 (3.4-5.1) mmol/L Chloride 105 (98-107) mmol/L Carbon Dioxide 22 (22-32) mmol/L BUN 12 (9-20) mg/dL Creatinine 1.05 (0.66-1.25) mg/dL Estimated GFR > 60 (>60) mL/min BUN/Creatinine Ratio 11.4 (6-22) Glucose 180 H (70-100) mg/dL Lactate 2.1 (0.7-2.1) mmol/L Calcium 9.3 (8.4-10.2) mg/dL Total Bilirubin 0.7 (0.2-1.3) mg/dL AST 28 (17-59) IU/L ALT 20 (<50) IU/L Alkaline Phosphatase 96 (38-126) U/L Total Protein 7.7 (6.3-8.2) g/dL Albumin 4.6 (3.5-5.0) g/dL Globulin 3.1 (1.7-4.1) g/dL Albumin/Globulin Ratio 1.5 (1.0-2.8) Lipase 46 (23-300) U/L Urine RBC 10-30/hpf H (0-5/HPF) Urine WBC None seen (0-5/HPF) Ur Squamous Epith Cells None seen (0-5/HPF) Amorphous Sediment 1+ Urine Bacteria None seen (None) Ur Culture Indicated? Cult not indicated Vol Urine Centrifuged 10ml (spun) Ketones 0.89 H (<0.27) mmol/L 07/10/23 Range/Units 13:27 WBC (4.5-11.0) X10^3/uL RBC (4.5-5.9) X10^6/uL Hgb (13.5-17.5) g/dL Hct (41-53) % MCV (80-100) fL MCH (26-34) PG MCHC (30-36) % RDW (11.6-14.8) % Plt Count (150-400) X10^3/uL Neut % (Auto) (50-75) % Lymph % (Auto) (25-40) % Lincoln % (Auto) (3-14) % Eos % (Auto) (2-4) % Baso % (Auto) (0-2) % Neut # (Auto) (9985-8561) /uL Lymph # (Auto) (4914-9059) /uL Lincoln # (Auto) (0-900) /uL Eos # (Auto) (0-450) /uL Baso # (Auto) (0-100) /uL VBG pH (7.33-7.43) VBG pCO2 (45-50) mmHg VBG pO2 (35-45) mmHg VBG HCO3 (24-28) mmol/L VBG Total CO2 (24-29) mmol/L VBG O2 Saturation (70-75) % VBG Base Excess (0-4) mmol/L FiO2 Sodium (137-145) mmol/L Potassium (3.4-5.1) mmol/L Chloride (98-107) mmol/L Carbon Dioxide (22-32) mmol/L BUN (9-20) mg/dL Creatinine (0.66-1.25) mg/dL Estimated GFR (>60) mL/min BUN/Creatinine Ratio (6-22) Glucose (70-100) mg/dL Lactate 1.4 (0.7-2.1) mmol/L Calcium (8.4-10.2) mg/dL Total Bilirubin (0.2-1.3) mg/dL AST (17-59) IU/L ALT (<50) IU/L Alkaline Phosphatase (38-126) U/L Total Protein (6.3-8.2) g/dL Albumin (3.5-5.0) g/dL Globulin (1.7-4.1) g/dL Albumin/Globulin Ratio (1.0-2.8) Lipase (23-300) U/L Urine RBC (0-5/HPF) Urine WBC (0-5/HPF) Ur Squamous Epith Cells (0-5/HPF) Amorphous Sediment Urine Bacteria (None) Ur Culture Indicated? Vol Urine Centrifuged Ketones (<0.27) mmol/L Point of Care Testing Glucose POC 189 Urine Dip Bedside Urine Glucose 250 mg/dl Bedside Urine Bilirubin - Negative Bedside Urine Ketone +/- 5 Urine Specific [place] 1.015 Bedside Urine Occult Blood + Bedside Urine pH 7.5 Bedside Urine Protein +/- 15 Bedside Urine Urobilinogen - Negative Bedside Urine Nitrite - Negative Bedside Urine Leukocytes - Negative Esterase Imaging Data CT scan - abdomen/pelvis: Radiologist's Impression: PROCEDURE: CT ABDOMEN PELVIS W CON INDICATIONS: vomiting TECHNIQUE: After the administration of intravenous contrast, axial sections acquired from the lung bases to the pubic symphysis. Coronal and sagittal reformats were performed. For radiation dose reduction, the following was used: automated exposure control, adjustment of mA and/or kV according to patient size. COMPARISON: [facility], CT, CT ABDOMEN PELVIS W CON, 12/28/2017, 13:29. FINDINGS: Image quality: Diagnostic. Lower Chest: Moderate hiatal hernia with diffuse wall thickening of the gastroesophageal junction, similar to comparison. ABDOMEN: Liver: No solid mass. Gallbladder: No radiopaque gallstones or wall thickening. Biliary ducts: No biliary dilation. Pancreas: No ductal dilation. Spleen: Size is within normal limits. Adrenal Glands: No adrenal nodules. Kidneys and Ureters: No hydronephrosis. No solid mass. No complex renal cystic lesion which requires follow up. Stomach and Bowel: Normal colonic caliber, without significant wall thickening. Peritoneum: No abnormal intraperitoneal fluid. No free air. Ventral Wall: No significant ventral hernia. Abdominal Nodes: No retroperitoneal or mesenteric adenopathy by size criteria. Vessels: Aorta and inferior vena cava are normal in size. PELVIS: Pelvic Organs: Unremarkable. Bladder: No bladder wall thickening, accounting for underdistention. Pelvic Nodes: No enlarged lymph nodes. Miscellaneous: No inguinal hernias are seen. Bones: No aggressive osseous abnormality. Likely chronic wedging of L1 new from 2018. IMPRESSION: Moderate hiatal hernia with diffuse thickening at the gastroesophageal junction, correlate for signs of esophagitis. Dictated by: Nile Suresh M.D. on 07/10/2023 at 11:42 ECG Data Attestation: I personally reviewed and interpreted this ECG as follows: Interpretation: Normal sinus rhythm rate 88 VT interval 140 QRS [address] changes or T-wave inversions MDM Narrative Medical decision making narrative: Patient 33-year-old male history of insulin-dependent diabetes recently admitted with mild DKA presents today with nausea vomiting. Today the work has been reviewed he has no evidence of DKA pH is 7.45 without an anion gap and glucose is 180. Without evidence of DKA and ongoing abdominal pain CT was done. CT has been reviewed it does show moderate hiatal hernia with diffuse thickening at the GE junction with signs of esophagitis. Patient has received IV fluids Zofran and Protonix. Patient is tolerating small sips of fluid he has having no further episodes of nausea or vomiting. He is taking Protonix already. At this time I see no need for repeat admission. There is no further evidence of cholelithiasis cholecystitis pancreatitis or other complications. Discharge Plan Departure Patient Disposition: Home Clinical Impression: Esophageal hiatal hernia Instructions: Hiatal Hernia Activity Restrictions/Additional Instructions: *You have been diagnosed with hiatal hernia *What to do: At this time blood work is overall reassuring no evidence of DKA. Increase fluids as tolerated. Recommend that you take your Reglan as scheduled *Continue to take medications as directed Reglan 10 mg every 6 hours if needed for nausea or vomiting *Follow up with your primary care provider in 2-3 days or call [phone] *Return to ER if you should have persistent vomiting abdominal pain elevated glucose [or] any new, worsening or concerning symptoms Prescriptions: New metoclopramide HCl [Reglan] 10 mg tablet 10 mg PO Q8HR PRN (Reason: nausea and vomiting) Qty: 20 0RF No Action Acid Equipment Or Machinery Cleaner (omeprazole) 40 mg PO BID hydroxyzine HCl 25 mg PO TID levothyroxine 25 mcg Tablet 25 mcg PO DAILY diphenhydramine HCl 25 mg Tablet 25 mg PO BEDTIME PRN (Reason: Insomnia) metoprolol tartrate 25 mg Tablet 25 mg PO DAILY acetaminophen 500 mg Capsule 500 mg PO Q6H PRN (Reason: Pain (Scale Score 1-3)) metoclopramide HCl [Reglan] 10 mg Tablet 10 mg PO TID Referrals: Miscellaneous,Doctor, MD [Primary Care Provider] - Stand Alone Forms: Patient Portal/API
[2023-07-10 11:51] LABS: Fractionated Inspired Oxygen 21; HCO3 VBG 21 mmol/L (24-28); Oxygen Saturation VBG 76 % (70-75); PCO2 VBG 28.3 mmHg (45-50); PO2 VBG 37 mmHg (35-45); Total CO2 VBG 22 mmol/L (24-29); pH VBG 7.48 (7.33-7.43)
[2023-07-10 11:52] LABS: Alanine Aminotransferase 20 IU/L (<50); Albumin 4.6 g/dL (3.5-5.0); Albumin Globulin Ratio 1.5 (1.0-2.8); Alkaline Phosphatase 96 U/L (38-126); Aspartate Aminotransferase 28 IU/L (17-59); BUN Creatinine Ratio 11.4 (6-22); Bilirubin Total 0.7 mg/dL (0.2-1.3); Blood Urea Nitrogen 12 mg/dL (9-20); Calcium 9.3 mg/dL (8.4-10.2); Carbon Dioxide 22 mmol/L (22-32); Chloride 105 mmol/L (98-107); Estimated Glomerular Filt Rate > 60 mL/min (>60); Globulin 3.1 g/dL (1.7-4.1); Glucose 180 mg/dL (70-100); HEMOLYSIS < 15 (0-50); Lipase 46 U/L (23-300); Potassium 3.4 mmol/L (3.4-5.1); Sodium 137 mmol/L (137-145); Total Protein 7.7 g/dL (6.3-8.2)
[2023-07-10 11:53] LABS: Lactate (Lactic Acid) 2.1 mmol/L (0.7-2.1)
[2023-07-10 11:57] LABS: Ketones (Beta-Hydroxybutyrate) 0.89 mmol/L (<0.27)
--- NOTE | 2023-07-10 11:59 | DI.CT.S_ITS ---
PROCEDURE: CT ABDOMEN PELVIS W CON INDICATIONS: vomiting TECHNIQUE: After the administration of intravenous contrast, axial sections acquired from the lung bases to the pubic symphysis. Coronal and sagittal reformats were performed. For radiation dose reduction, the following was used: automated exposure control, adjustment of mA and/or kV according to patient size. COMPARISON: [facility], CT, CT ABDOMEN PELVIS W CON, 12/28/2017, 13:29. FINDINGS: Image quality: Diagnostic. Lower Chest: Moderate hiatal hernia with diffuse wall thickening of the gastroesophageal junction, similar to comparison. ABDOMEN: Liver: No solid mass. Gallbladder: No radiopaque gallstones or wall thickening. Biliary ducts: No biliary dilation. Pancreas: No ductal dilation. Spleen: Size is within normal limits. Adrenal Glands: No adrenal nodules. Kidneys and Ureters: No hydronephrosis. No solid mass. No complex renal cystic lesion which requires follow up. Stomach and Bowel: Normal colonic caliber, without significant wall thickening. Peritoneum: No abnormal intraperitoneal fluid. No free air. Ventral Wall: No significant ventral hernia. Abdominal Nodes: No retroperitoneal or mesenteric adenopathy by size criteria. Vessels: Aorta and inferior vena cava are normal in size. PELVIS: Pelvic Organs: Unremarkable. Bladder: No bladder wall thickening, accounting for underdistention. Pelvic Nodes: No enlarged lymph nodes. Miscellaneous: No inguinal hernias are seen. Bones: No aggressive osseous abnormality. Likely chronic wedging of L1 new from 2018. IMPRESSION: Moderate hiatal hernia with diffuse thickening at the gastroesophageal junction, correlate for signs of esophagitis. Dictated by: Nile Suresh M.D. on 07/10/2023 at 11:42 Approved by: Nile Suresh M.D. on 07/10/2023 at 11:48
[2023-07-10] MEDS: diphenhydrAMINE 50 MG/ML VIAL 25 MG IV (12:10)
[2023-07-10] MEDS: PROCHLORPERAZINE 10 MG/2 ML VIAL IV (12:10)
[2023-07-10 12:26] LABS: Amorphous Sediment Urine 1+; Bacteria Urine None Seen; Culture Indicated Urine Cult Not Indicated; RBC Urine 10-30/HPF (0-5/HPF); Squamous Epithelial Cell Urine None Seen (0-5/HPF); Urine Volume 10mL (spun); WBC Urine None Seen (0-5/HPF)
[2023-07-10] MEDS: PANTOPRAZOLE 40 MG VIAL IV (12:34)
[2023-07-10 13:14] LABS: Reflexed Lactate in 2 Hours Y
[2023-07-10 13:50] LABS: Lactate 2HR (Lactic Acid Rflx) 1.4 mmol/L (0.7-2.1)
--- NOTE | 2023-07-10 15:44 | PC.NURSE ---
reassess; no change. Pt resting throughout visit. Endorses no n/v; but does state abd pain is constant.
== END 2023-07-10 15:46 | disposition home or self-care (01) ==
PROVIDERS: Emergency Provider Emergency Medicine
DX: K44.9 Diaphragmatic hernia without obstruction or gangrene (principal)
CPT/HCPCS: 36415; 74177; 80053; 81003; 81015; 82009; 82805; 82962; 83605; 83690; 85025; 93005; 96361; 96374; 96375; 99284; C9113; J0780; J1200; Q9967

== ENCOUNTER 2023-07-13 10:46 | Observation (INO) | payer OTHER, SELFPAY ==
[2023-07-08 15:37] VITALS: BMI 26.5
[2023-07-13] VITALS (16 sets, daily range): BP systolic 101–184; BP diastolic 67–119; PULSE 65–107; RESP 14–23; TEMP 35.8–36.7; O2SAT 93–100; BMI 26.5
--- NOTE | 2023-07-13 12:57 | ED.ABDPAIN ---
HPI - Abdominal Pain General Chief Complaint: Abdominal Pain Stated Complaint: Throwing up blood Time Seen by Provider: 07/13/23 11:34 Source: patient Mode of arrival: Ambulatory History of Present Illness HPI narrative: Patient is a 33-year-old male history of insulin-dependent diabetes presenting today with ongoing nausea and vomiting. He was admitted in the hospital July 07 through the and discharged with mild DKA. He presented to the emergency department on July [address] at that time did show thickening gastroesophageal junction. He continues to have nausea vomiting unable to keep anything down. POC glucose today is 167. He generally does not feel well. He is extremely hard IV start. He reports vomiting dark brown coffee-ground emesis but denies any gross bright red blood hematemesis. Related Data Home Medications Medication Instructions Recorded Confirmed metoclopramide HCl 10 mg tablet 10 mg PO TID nausea 12/30/17 07/09/23 (Reglan) Acid Line Palletizer (omeprazole) 40 mg PO BID 02/12/20 07/09/23 hydroxyzine HCl 25 mg PO TID 02/12/20 07/09/23 acetaminophen 500 mg capsule 500 mg PO Q6H PRN Pain (Scale 07/09/23 07/09/23 Score 1-3) diphenhydramine HCl 25 mg tablet 25 mg PO BEDTIME PRN Insomnia 07/09/23 07/09/23 levothyroxine 25 mcg tablet 25 mcg PO DAILY 07/09/23 07/09/23 metoprolol tartrate 25 mg tablet 25 mg PO DAILY 07/09/23 07/09/23 Previous Rx's Medication Instructions Recorded metoclopramide HCl 10 mg tablet 10 mg PO Q8HR PRN nausea and 07/10/23 (Reglan) vomiting #20 tabs Allergies Allergy/AdvReac Type Severity Reaction Status Date / Time aspirin [ASPIRIN] Allergy Unknown MAKES ME Verified 07/10/23 10:52 GO DEAF hydrocodone [HYDROCODONE] AdvReac Intermediate VOMITING Verified 07/10/23 10:52 ibuprofen [IBUPROFEN] AdvReac Intermediate HURTS Verified 07/10/23 10:52 KIDNEYS Patient History Medical History (Updated 07/13/23 @ 15:48 by Ally Stearns DO) Marijuana use History of MRSA infection History of pneumonia Blurry vision, bilateral Diabetic neuropathy Bipolar disorder with depression Nausea and vomiting Diabetes type 1, uncontrolled Diabetic gastroparesis Surgical History No pertinent past surgical history Family History Mother No known health problems Father No known health problems Social History household members: family Smoking Status: Never smoker alcohol intake: former Smoking Status: Never smoker alcohol intake frequency: other Substance Use Type: marijuana Exam Initial Vital Signs Initial Vital Signs: Vital Signs Temperature 96.5 F L 07/13/23 10:51 Pulse Rate 93 H 07/13/23 10:51 Respiratory Rate 20 07/13/23 10:51 Blood Pressure 141/101 H 07/13/23 10:51 Pulse Oximetry 96 07/13/23 10:51 Oxygen Delivery Method Room Air 07/13/23 10:51 GENERAL: 33-year-old male appears older than stated age HEENT: Head atraumatic,EOMI, pupils reactive, face symmetric, [moist] mucous membranes CARDIOVASCULAR: Regular rate and rhythm without murmurs, rubs or gallops. RESPIRATORY: Breath sounds equal bilaterally, no wheezes rales or rhonchi. ABDOMEN: Soft, diffusely tender no guarding no rebound EXTREMITIES: Normal range of motion, no clubbing or edema. Neurovascularly intact NEUROLOGICAL: Alert and oriented x4.Normal gait and speech. SKIN: Warm, dry, no laceration, no petechiae, no rashes or lesions. Course Orders Ordered: ED Orders 07/13/23 11:07 EKG-12 Lead Stat 07/13/23 11:34 Venous Blood Gas Stat 07/13/23 13:30 Complete Blood Count AUTO DIFF Stat Comprehensive Metabolic Panel Stat Ketones (Beta-Hydroxybutyrate) Stat Lactate (Lactic Acid) Stat Lipase Stat 07/13/23 15:13 Consult to Physician Stat Acetaminophen (Acetaminophen 325 Mg Tablet) 650 mg PO Q6H PRN PRN Reason: Fever/Mild Pain (1-3) Hydromorphone HCl (Hydromorphone 0.5 Mg Inj) 0.5 mg IV Q2H PRN PRN Reason: Pain, Moderate (4-6) Sodium Chloride (Normal Saline 0.9%) 1,000 mls @ 100 mls/hr IV CONT XENA Stop: 07/14/23 03:44 Dextrose (D10w) 100 mls @ 999 mls/hr IV PRN PRN PRN Reason: Hypoglycemia Insulin Human Regular (Insulin Regular 100 Unit/Ml 3 Ml Vial) 0 unit SUBCUT Q6H XENA; Protocol Metoclopramide HCl (Metoclopramide 10 Mg/2 Ml Inj) 10 mg IV Q6HR PRN PRN Reason: Nausea And Vomiting Naloxone HCl (Naloxone 0.4 Mg/Ml Vial) 0.2 mg IV Q2MIN PRN PRN Reason: Opiate Reversal Ondansetron HCl (Ondansetron 4 Mg Odt) 4 mg PO NOW PRN PRN Reason: Nausea And Vomiting Ondansetron HCl (Ondansetron 4 Mg/2 Ml Inj) 4 mg IV NOW PRN PRN Reason: Nausea And Vomiting Last Admin: 07/13/23 13:50 Dose: 4 mg Documented By: VALERI Ondansetron HCl (Ondansetron 4 Mg/2 Ml Inj) 4 mg IV Q4HR PRN PRN Reason: Nausea And Vomiting Pantoprazole Sodium (Pantoprazole 40 Mg Vial) 40 mg IV BID XENA Discontinued Medications Diphenhydramine HCl (Diphenhydramine 50 Mg/Ml Vial) 25 mg IV NOW ONE Stop: 07/13/23 15:13 Last Admin: 07/13/23 15:32 Dose: 25 mg Hydromorphone HCl (Hydromorphone 0.5 Mg Inj) 0.5 mg IV NOW ONE Stop: 07/13/23 15:17 Last Admin: 07/13/23 15:33 Dose: 0.5 mg Sodium Chloride (Normal Saline 0.9%) 1,000 mls @ 1,000 mls/hr IV BOLUS ONE Stop: 07/13/23 12:33 Last Infusion: 07/13/23 14:51 Dose: Infused Documented By: Admin: 07/13/23 13:47 Dose: 1,000 mls/hr Documented By: VALERI Pantoprazole Sodium (Pantoprazole 40 Mg Vial) 80 mg IV NOW ONE Stop: 07/13/23 15:14 Last Admin: 07/13/23 15:32 Dose: 80 mg Prochlorperazine (Prochlorperazine 10 Mg/2 Ml Vial) 10 mg IV NOW ONE Stop: 07/13/23 15:13 Last Admin: 07/13/23 15:33 Dose: 10 mg Vital Signs Vital signs: Vital Signs - 8 hr 07/13/23 10:51 07/13/23 13:21 07/13/23 13:23 Temperature 96.5 F L Pulse Rate 93 H 99 H Respiratory Rate 20 Blood Pressure 141/101 H 184/119 H Pulse Oximetry 96 97 Oxygen Delivery Method Room Air 07/13/23 13:23 07/13/23 13:30 07/13/23 13:38 Temperature Pulse Rate 99 H 93 H 102 H Respiratory Rate 20 22 Blood Pressure Pulse Oximetry 100 99 100 Oxygen Delivery Method Room Air 07/13/23 13:38 07/13/23 14:00 07/13/23 14:00 Temperature Pulse Rate 93 H Respiratory Rate 14 Blood Pressure 123/100 H 176/108 H Pulse Oximetry 98 Oxygen Delivery Method 07/13/23 14:30 07/13/23 14:30 Temperature Pulse Rate 91 H Respiratory Rate 15 Blood Pressure 176/100 H Pulse Oximetry 93 Oxygen Delivery Method Room Air MDM - Abdominal Pain Lab Data 07/13/23 13:30 07/13/23 13:30 Labs: Lab Results 07/13/23 Range/Units 13:30 WBC 13.1 H (4.5-11.0) X10^3/uL RBC 5.35 (4.5-5.9) X10^6/uL Hgb 12.4 L (13.5-17.5) g/dL Hct 38.3 L (41-53) % MCV 71.6 L (80-100) fL MCH 23.1 L (26-34) PG MCHC 32.3 (30-36) % RDW 18.0 H (11.6-14.8) % Plt Count 338 (150-400) X10^3/uL Neut % (Auto) 78.5 H (50-75) % Lymph % (Auto) 14.4 L (25-40) % [place] % (Auto) 6.2 (3-14) % Eos % (Auto) 0.4 L (2-4) % Baso % (Auto) 0.5 (0-2) % Neut # (Auto) 81340 H (4764-2500) /uL Lymph # (Auto) 1900 (2727-6317) /uL [place] # (Auto) 800 (0-900) /uL Eos # (Auto) 100 (0-450) /uL Baso # (Auto) 100 (0-100) /uL Sodium 139 (137-145) mmol/L Potassium 3.5 (3.4-5.1) mmol/L Chloride 102 (98-107) mmol/L Carbon Dioxide 24 (22-32) mmol/L BUN 25 H (9-20) mg/dL Creatinine 1.37 H (0.66-1.25) mg/dL Estimated GFR > 60 (>60) mL/min BUN/Creatinine Ratio 18.2 (6-22) Glucose 155 H (70-100) mg/dL Lactate 1.8 (0.7-2.1) mmol/L Calcium 9.5 (8.4-10.2) mg/dL Total Bilirubin 0.9 (0.2-1.3) mg/dL AST 30 (17-59) IU/L ALT 19 (<50) IU/L Alkaline Phosphatase 80 (38-126) U/L Total Protein 8.2 (6.3-8.2) g/dL Albumin 4.9 (3.5-5.0) g/dL Globulin 3.3 (1.7-4.1) g/dL Albumin/Globulin Ratio 1.5 (1.0-2.8) Lipase 33 (23-300) U/L Ketones 2.46 H (<0.27) mmol/L Point of care testing: Point of Care Testing Glucose POC 167 ECG Data Attestation: I personally reviewed and interpreted this ECG as follows: Interpretation: Artifact noted normal sinus rhythm rate 97 TX interval 136 QRS [address] changes MDM Narrative Medical decision making narrative: Patient 33-year-old male insulin-dependent diabetic presents for the 3rd time with nausea vomiting. He was admitted briefly for mild DKA discharged then presented again to myself on July [address] at that time so showed possible esophagitis and thickening at the gastroesophageal junction. Patient has been unable to keep anything down continues to vomit coffee-ground like emesis. Blood work has been reviewed there is no evidence of DKA has no anion gap, he was found to have mild SHAN with a creatinine of 1.37 previously 1.05, sodium 139, potassium 3.5, chloride 102, carbon dioxide 24, glucose 155 lactate 1.8, bilirubin 0.9, AST 30, ALT 19 alk-phos 80 lipase 33 No repeat imaging done Discussion with Dr. Coburn on-call General surgery agrees that patient would benefit from an EGD. Dr. Robertson agrees to observation Patient continues to vomit bags here in the ED. Zosyn does not help previously Compazine has he is requesting that lung with some pain medication. Discussed initially with surgery no need for repeat imaging. Not an acute abdomen at this time. Discharge Plan Departure Patient Disposition: Admitted as Observation Clinical Impression: Esophagitis Admit Date/Time: 07/13/23 15:24 Admit Provider: Gregg Robertson
[2023-07-13 13:39] LABS: Add Manual Diff / Slide Review NO; Basophils Absolute Auto 100 /uL (0-100); Basophils Percent Auto 0.5 % (0-2); Eosinophils Absolute Auto 100 /uL (0-450); Eosinophils Percent Auto 0.4 % (2-4); Hematocrit 38.3 % (41-53); Hemoglobin 12.4 g/dL (13.5-17.5); Lymphocytes Absolute Auto 1900 /uL (1100-4500); Lymphocytes Percent Auto 14.4 % (25-40); Mean Corpuscular HGB Conc 32.3 % (30-36); Mean Corpuscular Hemoglobin 23.1 PG (26-34); Mean Corpuscular Volume 71.6 fL (80-100); Monocytes Absolute Auto 800 /uL (0-900); Monocytes Percent Auto 6.2 % (3-14); Neutrophils Absolute Auto 10300 /uL (1500-7000); Neutrophils Percent Auto 78.5 % (50-75); Platelet Count 338 X10^3/uL (150-400); Red Blood Cell Count 5.35 X10^6/uL (4.5-5.9); White Blood Cell Count 13.1 X10^3/uL (4.5-11.0)
[2023-07-13] MEDS: SODIUM CHLORIDE 0.9% 1,000 ML 1000 ML IV (13:47)
[2023-07-13] MEDS: ONDANSETRON 4 MG/2 ML INJ IV (13:50)
[2023-07-13 13:51] LABS: Lactate (Lactic Acid) 1.8 mmol/L (0.7-2.1)
[2023-07-13 13:53] LABS: Alanine Aminotransferase 19 IU/L (<50); Albumin 4.9 g/dL (3.5-5.0); Albumin Globulin Ratio 1.5 (1.0-2.8); Alkaline Phosphatase 80 U/L (38-126); Aspartate Aminotransferase 30 IU/L (17-59); BUN Creatinine Ratio 18.2 (6-22); Bilirubin Total 0.9 mg/dL (0.2-1.3); Blood Urea Nitrogen 25 mg/dL (9-20); Calcium 9.5 mg/dL (8.4-10.2); Carbon Dioxide 24 mmol/L (22-32); Chloride 102 mmol/L (98-107); Estimated Glomerular Filt Rate > 60 mL/min (>60); Globulin 3.3 g/dL (1.7-4.1); Glucose 155 mg/dL (70-100); HEMOLYSIS 19 (0-50); Lipase 33 U/L (23-300); Potassium 3.5 mmol/L (3.4-5.1); Sodium 139 mmol/L (137-145); Total Protein 8.2 g/dL (6.3-8.2)
[2023-07-13 13:58] LABS: Ketones (Beta-Hydroxybutyrate) 2.46 mmol/L (<0.27)
[2023-07-13] MEDS: diphenhydrAMINE 50 MG/ML VIAL 25 MG IV (15:32)
[2023-07-13] MEDS: PANTOPRAZOLE 40 MG VIAL 80 MG IV (15:32)
[2023-07-13] MEDS: HYDROMORPHONE 0.5 MG INJ IV ×2 (15:33→21:10)
[2023-07-13] MEDS: PROCHLORPERAZINE 10 MG/2 ML VIAL IV ×2 (15:33→21:43)
--- NOTE | 2023-07-13 15:41 | P.HP_ITS ---
History of Present Illness History of Present Illness Date Patient Seen: 07/13/23 Chief complaint: Throwing up blood Narrative: Valentin Noble is a 33yo M with PMH of DM1 on insulin pump, gastroparesis, diabetic neuropathy, bipolar disorder, marijuana use and hypothyroidism who presents with NV and coffee-ground emesis. Patient states he began vomiting 5 days ago and has probably vomited over 30 times since. He noticed his emesis becoming coffee-ground last night so he came to the ED today. In the ED he was noted to have vomited approx 700cc of dark coffee grounds. CT abdomen showed thickening at GE junction concerning for esophagitis. Gen surg contacted who will perform EGD tomorrow. Patient currently saying his nausea is controlled. He denies CP, SOB, headache, diarrhea or vertigo. [facility] Medical History (Updated 07/13/23 @ 15:48 by Ally Stearns DO) Marijuana use History of MRSA infection History of pneumonia Blurry vision, bilateral Diabetic neuropathy Bipolar disorder with depression Nausea and vomiting Diabetes type 1, uncontrolled Diabetic gastroparesis Surgical History No pertinent past surgical history Family History Mother No known health problems Father No known health problems Social History household members: family Smoking Status: Former smoker alcohol intake: former Meds Home Medications and Allergies Home Medications Medication Instructions Recorded Confirmed Type metoclopramide HCl 10 mg tablet 10 mg PO TID nausea 12/30/17 07/13/23 History (Reglan) Acid Associate Professor Of Musicology (omeprazole) 40 mg PO BID 02/12/20 07/13/23 History hydroxyzine HCl 25 mg PO TID 02/12/20 07/13/23 History acetaminophen 500 mg capsule 500 mg PO Q6H PRN Pain (Scale 07/09/23 07/13/23 History Score 1-3) diphenhydramine HCl 25 mg tablet 25 mg PO BEDTIME PRN Insomnia 07/09/23 07/13/23 History levothyroxine 25 mcg tablet 25 mcg PO DAILY 07/09/23 07/13/23 History metoprolol tartrate 25 mg tablet 25 mg PO DAILY 07/09/23 07/13/23 History metoclopramide HCl 10 mg tablet 10 mg PO Q8HR PRN nausea and 07/10/23 07/13/23 Rx (Reglan) vomiting #20 tabs Allergies Allergy/AdvReac Type Severity Reaction Status Date / Time aspirin [ASPIRIN] Allergy Unknown MAKES ME Verified 07/10/23 10:52 GO DEAF hydrocodone [HYDROCODONE] AdvReac Intermediate VOMITING Verified 07/10/23 10:52 ibuprofen [IBUPROFEN] AdvReac Intermediate HURTS Verified 07/10/23 10:52 KIDNEYS Review of Systems Review of Systems Narrative: All other systems reviewed with the patient and are negative unless otherwise stated. Exam Vital Signs (past 8 hours): - 07/13/23 10:51 07/13/23 13:21 07/13/23 13:23 Temperature 96.5 F L Pulse Rate 93 H 99 H Respiratory Rate 20 Blood Pressure 141/101 H 184/119 H Pulse Oximetry 96 97 Oxygen Delivery Method Room Air 07/13/23 13:23 07/13/23 13:30 07/13/23 13:38 Temperature Pulse Rate 99 H 93 H 102 H Respiratory Rate 20 22 Blood Pressure Pulse Oximetry 100 99 100 Oxygen Delivery Method Room Air 07/13/23 13:38 07/13/23 14:00 07/13/23 14:00 Temperature Pulse Rate 93 H Respiratory Rate 14 Blood Pressure 123/100 H 176/108 H Pulse Oximetry 98 Oxygen Delivery Method 07/13/23 14:30 07/13/23 14:30 07/13/23 15:33 Temperature Pulse Rate 91 H 107 H Respiratory Rate 15 Blood Pressure 176/100 H 137/92 H Pulse Oximetry 93 Oxygen Delivery Method Room Air Oxygen Delivery Method Room Air Narrative Exam Narrative: GEN: ill-appearing, pale HEENT: dry mucous membranes, PERRL NECK: trachea midline, no JVD CV: regular rate and rhythm, no murmurs PULM: clear bilaterally ABD: soft, nontender, nondistended, no organomegaly EXT: warm and well perfused with no edema NEURO: awake, alert, oriented, no focal deficits Objective Labs 07/13/23 13:30 07/13/23 13:30 Labs: Laboratory Results - last 24 hr 07/13/23 13:30 WBC 13.1 H RBC 5.35 Hgb 12.4 L Hct 38.3 L MCV 71.6 L MCH 23.1 L MCHC 32.3 RDW 18.0 H Plt Count 338 Neut % (Auto) 78.5 H Lymph % (Auto) 14.4 L [place] % (Auto) 6.2 Eos % (Auto) 0.4 L Baso % (Auto) 0.5 Neut # (Auto) 32766 H Lymph # (Auto) 1900 [place] # (Auto) 800 Eos # (Auto) 100 Baso # (Auto) 100 Sodium 139 Potassium 3.5 Chloride 102 Carbon Dioxide 24 BUN 25 H Creatinine 1.37 H Estimated GFR > 60 BUN/Creatinine Ratio 18.2 Glucose 155 H Lactate 1.8 Calcium 9.5 Total Bilirubin 0.9 AST 30 ALT 19 Alkaline Phosphatase 80 Total Protein 8.2 Albumin 4.9 Globulin 3.3 Albumin/Globulin Ratio 1.5 Lipase 33 Ketones 2.46 H Assessment & Plan Assessment & Plan narrative: # acute intractable nausea vomiting with suspected hematemesis -CT abdomen shows mod hiatal hernia and thickening at GE junction, concern for PUD or Joey lesions with coffee-ground emesis. -continue PPI IV b.i.d. -general surgery consulted for EGD, keep NPO -antiemetics IV -IVF # SHAN -Cr 1.37, baseline of 1 -IVF # type 1 diabetes without evidence of DKA -q6h BG checks with regular insulin SSI while NPO -resume insulin pump once eating # bipolar disorder -continue hydroxyzine once not NPO # HTN -takes metoprolol and amlodipine, will continue once not NPO # hypothyroidism -continue synthroid once off NPO Code status is full code. DVT prophylaxis with SCDs. Proxy is britni Carson. I have reviewed home meds and used all available resources to reconcile the home meds. Case discussed with ED physician/APC and patient will be admitted to the hospitalist service for further workup and management. This patient will be admitted as observation and will require less than 2 midnights of hospital time to treat intractable nausea vomiting.
--- NOTE | 2023-07-13 16:52 | PM.CALLCOV.1 ---
Call Coverage Note Note Date of Patient Contact: 07/13/23 Narrative of Care Provided: EGD with biopsy tomorrow w Kaylie. Keep NPO after midnight
[2023-07-13] MEDS: SODIUM CHLORIDE 0.9% 1,000 ML 100 ML IV (16:57)
--- NOTE | 2023-07-13 18:37 | PC.WOUNDPHOT ---
pt states wound is from dry skin that cracked. allevyn dressing placed after photo (below) taken.
[2023-07-13 19:44] LABS: MRSA (Nasal) PCR NOT DETECTED (Not Detect)
[2023-07-13] MEDS: PANTOPRAZOLE 40 MG VIAL IV (20:52)
[2023-07-13 21:10] LABS: Hemoglobin 10.8 g/dL (13.5-17.5)
[2023-07-14] VITALS (18 sets, daily range): BP systolic 93–192; BP diastolic 67–118; PULSE 65–94; RESP 12–24; TEMP 36.2–37.1; O2SAT 97–100
--- NOTE | 2023-07-14 | PATH_ITS ---
[facility] Accession Number: [id number] No. of containers..01 Tissue . 01 Material submitted: . esophagus - ESOPHAGUS BIOPSIES . 01 Diagnosis: ESOPHAGUS BIOPSIES: Squamous mucosa with mild reactive changes and focal slight erosion, suggestive of reflux. No evidence of eosinophilic esophagitis. [facility] 07/21/2023 163 Local . 01 Electronically signed: . Fly Carter MD, Pathologist NPI- [id number] . 01 Gross description: . Received in formalin with two patient identifiers and esophagus biopsy, are multiple [place] soft tissue fragments aggregating to 0.6 x 0.4 x 0.1 cm. Filtered and submitted entirely in A1. ([id number]) /MRV 07/21/20231631 Local . 01 Microscopic: . ESOPAHGUS BIOPSIES: An ABPAS stain was performed to evaluate for fungal organisms and is negative. The control stains appropriately. . 01 Pathologist provided ICD-10: K21.00 . 01 CPT . 985641, 280553 Specimen Comment: A courtesy copy of this report has been sent to [phone] Performed at: [address] [id number] MD Fly Carter MD Phone: [phone]
[2023-07-14] MEDS: SODIUM CHLORIDE 0.9% 1,000 ML 100 ML IV (02:49)
[2023-07-14] MEDS: INSULIN REGULAR 100 UNIT/ML 3 ML VIAL SUBCUT ×2 (04:25→09:54)
[2023-07-14] MEDS: HYDROMORPHONE 0.5 MG INJ IV ×4 (04:31→20:31)
[2023-07-14 04:38] LABS: Add Manual Diff / Slide Review NO; Basophils Absolute Auto 100 /uL (0-100); Basophils Percent Auto 0.8 % (0-2); Eosinophils Absolute Auto 100 /uL (0-450); Hematocrit 31.1 % (41-53); Hemoglobin 10.1 g/dL (13.5-17.5); Lymphocytes Absolute Auto 2000 /uL (1100-4500); Lymphocytes Percent Auto 27.5 % (25-40); Mean Corpuscular HGB Conc 32.4 % (30-36); Mean Corpuscular Hemoglobin 23.4 PG (26-34); Mean Corpuscular Volume 72.1 fL (80-100); Monocytes Absolute Auto 700 /uL (0-900); Monocytes Percent Auto 8.9 % (3-14); Neutrophils Absolute Auto 4600 /uL (1500-7000); Neutrophils Percent Auto 61.8 % (50-75); Platelet Count 218 X10^3/uL (150-400); Red Blood Cell Count 4.32 X10^6/uL (4.5-5.9); Red Cell Distribution Width 18.4 % (11.6-14.8); White Blood Cell Count 7.4 X10^3/uL (4.5-11.0)
[2023-07-14 04:54] LABS: BUN Creatinine Ratio 18.6 (6-22); Blood Urea Nitrogen 22 mg/dL (9-20); Calcium 7.7 mg/dL (8.4-10.2); Carbon Dioxide 24 mmol/L (22-32); Chloride 105 mmol/L (98-107); Estimated Glomerular Filt Rate > 60 mL/min (>60); Glucose 330 mg/dL (70-100); HEMOLYSIS < 15 (0-50); Potassium 3.9 mmol/L (3.4-5.1); Sodium 136 mmol/L (137-145)
[2023-07-14] MEDS: PROCHLORPERAZINE 10 MG/2 ML VIAL IV ×2 (05:51→20:29)
--- NOTE | 2023-07-14 08:20 | PM.CN ---
History of Present Illness Consult details Date Patient Seen: 07/14/23 Time Patient Seen: 08:20 Chief complaint: Throwing up blood Narrative: Valentin Noble is a 33 yo man with PMH type 1 diabetes, gastroparesis on reglan bipolar and marijuana use admitted with esophagitis. Multiple episodes of emesis over the past several days now with coffee ground appearance. Hct 31 today 42 baseline, hemodynamically stable. CT demonstrates distal esophagitis. No on anticoagulation or NSAIDs. Receiving 40 mg BID. Meds Home Medications and Allergies Home Medications Medication Instructions Recorded Confirmed Type metoclopramide HCl 10 mg tablet 10 mg PO TID nausea 12/30/17 07/13/23 History (Reglan) Acid Railroad Track Inspector (omeprazole) 40 mg PO BID 02/12/20 07/13/23 History hydroxyzine HCl 25 mg PO TID 02/12/20 07/13/23 History acetaminophen 500 mg capsule 500 mg PO Q6H PRN Pain (Scale 07/09/23 07/13/23 History Score 1-3) diphenhydramine HCl 25 mg tablet 25 mg PO BEDTIME PRN Insomnia 07/09/23 07/13/23 History levothyroxine 25 mcg tablet 25 mcg PO DAILY 07/09/23 07/13/23 History metoprolol tartrate 25 mg tablet 25 mg PO DAILY 07/09/23 07/13/23 History metoclopramide HCl 10 mg tablet 10 mg PO Q8HR PRN nausea and 07/10/23 07/13/23 Rx (Reglan) vomiting #20 tabs Allergies Allergy/AdvReac Type Severity Reaction Status Date / Time aspirin [ASPIRIN] Allergy Unknown MAKES ME Verified 07/10/23 10:52 GO DEAF hydrocodone [HYDROCODONE] AdvReac Intermediate VOMITING Verified 07/10/23 10:52 ibuprofen [IBUPROFEN] AdvReac Intermediate HURTS Verified 07/10/23 10:52 KIDNEYS Exam Vital Signs (past 8 hours): - 07/14/23 03:25 07/14/23 05:51 07/14/23 07:00 Temperature 98.7 F Pulse Rate 80 65 Respiratory Rate 18 Blood Pressure 122/87 122/87 Pulse Oximetry 97 Oxygen Delivery Method Room Air Oxygen Flow Rate 0 07/14/23 07:00 Temperature Pulse Rate 84 Respiratory Rate 16 Blood Pressure 123/86 Pulse Oximetry 98 Oxygen Delivery Method Oxygen Flow Rate Oxygen Delivery Method Room Air Oxygen Flow Rate 0 Narrative Exam Narrative: Gen-Adult man alert and oriented Chest-Non labored resp Abdomen-Soft non tender Objective Labs 07/14/23 04:20 07/14/23 04:20 Labs: Laboratory Results - last 24 hr 07/13/23 07/13/23 07/13/23 13:30 16:30 21:07 WBC 13.1 H RBC 5.35 Hgb 12.4 L 10.8 L Hct 38.3 L MCV 71.6 L MCH 23.1 L MCHC 32.3 RDW 18.0 H Plt Count 338 Neut % (Auto) 78.5 H Lymph % (Auto) 14.4 L [place] % (Auto) 6.2 Eos % (Auto) 0.4 L Baso % (Auto) 0.5 Neut # (Auto) 27949 H Lymph # (Auto) 1900 [place] # (Auto) 800 Eos # (Auto) 100 Baso # (Auto) 100 Sodium 139 Potassium 3.5 Chloride 102 Carbon Dioxide 24 BUN 25 H Creatinine 1.37 H Estimated GFR > 60 BUN/Creatinine Ratio 18.2 Glucose 155 H Lactate 1.8 Calcium 9.5 Total Bilirubin 0.9 AST 30 ALT 19 Alkaline Phosphatase 80 Total Protein 8.2 Albumin 4.9 Globulin 3.3 Albumin/Globulin Ratio 1.5 Lipase 33 Nasal Screen MRSA (PCR) Not detected Ketones 2.46 H 07/14/23 04:20 WBC 7.4 RBC 4.32 L Hgb 10.1 L Hct 31.1 L MCV 72.1 L MCH 23.4 L MCHC 32.4 RDW 18.4 H Plt Count 218 Neut % (Auto) 61.8 Lymph % (Auto) 27.5 [place] % (Auto) 8.9 Eos % (Auto) 1.0 L Baso % (Auto) 0.8 Neut # (Auto) 4600 Lymph # (Auto) 2000 [place] # (Auto) 700 Eos # (Auto) 100 Baso # (Auto) 100 Sodium 136 L Potassium 3.9 Chloride 105 Carbon Dioxide 24 BUN 22 H Creatinine 1.18 Estimated GFR > 60 BUN/Creatinine Ratio 18.6 Glucose 330 H D Lactate Calcium 7.7 L Total Bilirubin AST ALT Alkaline Phosphatase Total Protein Albumin Globulin Albumin/Globulin Ratio Lipase Nasal Screen MRSA (PCR) Ketones [facility] Medical History Marijuana use History of MRSA infection History of pneumonia Blurry vision, bilateral Diabetic neuropathy Bipolar disorder with depression Nausea and vomiting Diabetes type 1, uncontrolled Diabetic gastroparesis Surgical History No pertinent past surgical history Family History Mother No known health problems Father No known health problems Social History household members: family Tobacco & Substance Use Smoking Status: Former smoker alcohol intake: former Assessment & Plan Assessment and plan (1) Esophagitis: Status: Acute Assessment & Plan narrative: Valentin Noble is a 33 yo man with PMH type 1 diabetes, gastroparesis on reglan, bipolar and marijuana use admitted with esophagitis and upper GI bleed. Hemodynamically stable Hct 31, baseline 42. Esophagogastroduodenoscopy today esophagitis vs boerhaave syndrome, vs peptic ulcer. Overview of the procedure discussed. Operative risks including bleeding, intestinal injury aspiration discussed. He provides his consent to proceed.
--- NOTE | 2023-07-14 09:23 | PC.NURSE ---
Pt taken down to OR for EGD.
--- NOTE | 2023-07-14 09:30 | PM.OP.EGD ---
Operative Date/Time/Diagnoses Date of procedure: 07/14/23 Time of procedure: 09:30 Pre-op diagnosis: esophagitis Post-op diagnosis: same Procedure & Clinicians Study performed: esophagogastroduodenoscopy Same procedure as scheduled: Yes Indications: 33M DM, gastroparesis with hyperemesis and GIB. Surgeon: iNk Lott Procedure Notes Procedure in detail: The history and physical was performed/updated and the patient is ASA class is 3. The procedure was discussed in detail with the patient. Potential risks complications including infection, bleeding, missed diagnosis, perforation, need for surgery, and were explained. Their questions were answered and informed consent was obtained. Patient placed in left lateral decubitus position. Time out was performed. General anesthesia was induced. A bite block was placed. the scope was inserted into the mouth and advanced through the esophagus and into the stomach. The pylorus was intubated and the duodenum was examined to the 2nd portion. The scope was then withdrawn into the stomach and was retroflexed. The stomach was decompressed and scope was withdrawn slowly through the esophagus. FINDINGS -esophagitis of the distal esophagus without active hemorrhage. -clots of blood within the esophagus and stomach. -bile within the gastric body consistent with gastroparesis. The patient tolerated the procedure well and will be discharged when they meet criteria. Specimen(s): other (esophagus) Impression: esophagitis of distal esophagus without active hemorrhage bile within the gastric body consistent with gastroparesis Post-procedure Disposition: ICU
[2023-07-14] MEDS: PANTOPRAZOLE 40 MG VIAL IV (09:52)
--- NOTE | 2023-07-14 10:17 | PC.NURSE ---
0945 Returned to room from PACU. VSS, pt alert and awake, C/O 7/10 abdominal pain, medicated with dilaudid. Clear liquids offered PO.
--- NOTE | 2023-07-14 10:46 | CM.DANOTE ---
Addendum entered by GORDON Sumner 07/14/23 15:44: Per hospitalist PN, EGD showed esophagitis, some blood clots in stomach but no active bleeding. Advancing diet and patient now tolerating liquids but not solids yet....Likely home on 07/14 if able to advance diet Plan: anticipate home with family, 07/14 vs when medically stable/able to tolerate normal diet. No identified barriers to safe dc home at this time. CM team will continue to follow as needed. DARLENE Original Note: DCP Assessment Note Pt is a 33yo M with PMH of DM1 on insulin pump, gastroparesis, diabetic neuropathy, bipolar disorder, marijuana use and hypothyroidism who presents with NV and coffee-ground emesis (H&P). PCP Per previous recent admission DCP assessment, [facility] in [place], [place] (new provider, name unknown) Payer [place] [employer] [facility] (Welfare coverage) CHECKERER HAND reviewed EMR. Pt recently admitted here 07/08/23 to 07/09/23 for vomiting and weakness. Per that DCP assessment note, pt lives in [place] and is indep at baseline. pt here visiting his grandmother. Previous admission CHECKERER HAND assisted pt in ins based questions, but pt ultimately dc'd home with family no CM/DCP needs. CHECKERER HAND attempted to meet with pt. Per RN, pt getting EGD with Dr. Lott at that time. No obvious DCP/CM needs. Per hospitalist in morning rounds, pt can dc home once n/v controlled. could potentially be today. Team discussed his ability to continue with his normal insulin pump during stay here for diabetes management. P: anticipate home with family support once medically stable with family support. No identified barriers to safe dc home at this time. CM team will continue to follow as needed. GORDON Sumner Discharge Planning/Care Management CM Discharge Assessment Start: 07/14/23 10:44 Freq: Status: Active Protocol: Document 07/14/23 10:44 DARLENE (Rec: 07/14/23 10:45 [id number]) Discharge Planning Assessment Assigned Knitted Goods Shaper GORDON Jones DPOA/Assigned Designee Name mother Hunt Contact Information [phone] Advance Directives? No Advance Directives on File No History Provided By Patient,Medical Record Has Patient been admitted in last 30 Yes days? Comment 5-30-24 to 07-09-23 Prior Living Arrangements House Household Members family Type of transporation used prior to Drives own vehicle admit Independent with ADL's Yes Is patient alert and oriented? Yes Comment Patient has left foot drop which he wears a brace for. Barriers to Discharge No Discharge Plan Home Transportation Arrangement Family to provide transport Referrals Initiated None needed Whiteboard Updated in Patient Room with No name and ext. # of Knitted Goods Shaper Review Status In Process Please Provide Date Initial DC 07/14/23 Assessment Was Performed Next Review Type Continued Stay Review
[2023-07-14] MEDS: INSULIN GLARGINE 100 UNIT/ML 3ML PEN 20 UNIT SUBCUT (11:16)
[2023-07-14] MEDS: INSULIN LISPRO 100 UNIT/ML 3ML VIAL SUBCUT (11:46)
[2023-07-14] MEDS: METOPROLOL IR 25 MG TABLET PO (14:12)
[2023-07-14] MEDS: hydrOXYzine HCL 25 MG TABLET PO ×2 (14:12→20:29)
[2023-07-14] MEDS: METOCLOPRAMIDE HCL 5 MG TABLET 10 MG PO ×2 (14:13→16:46)
--- NOTE | 2023-07-14 15:23 | PM.PN.1 ---
Subjective Subjective Interval history: Patient's EGD showed esophagitis, some blood clots in stomach but no active bleeding. Advancing diet and patient now tolerating liquids but not solids yet. Exam Vital Signs (past 8 hours): - 07/14/23 07:42 07/14/23 07:44 07/14/23 08:41 Temperature 97.2 F L Pulse Rate 84 89 Respiratory Rate 16 Blood Pressure 123/86 192/118 H Pulse Oximetry 98 100 Oxygen Delivery Method Room Air 07/14/23 09:22 07/14/23 09:28 07/14/23 09:33 Temperature 97.9 F 97.9 F 97.8 F Pulse Rate 94 H 88 84 Respiratory Rate 12 15 24 Blood Pressure 93/67 116/81 116/81 Pulse Oximetry 98 98 100 Oxygen Delivery Method Room Air Room Air Room Air 07/14/23 09:33 07/14/23 09:38 07/14/23 09:46 Temperature 97.6 F Pulse Rate 86 Respiratory Rate 24 Blood Pressure 123/87 139/98 H 124/80 Pulse Oximetry 99 Oxygen Delivery Method Room Air 07/14/23 11:00 Temperature Pulse Rate 81 Respiratory Rate 16 Blood Pressure 124/80 Pulse Oximetry 98 Oxygen Delivery Method Oxygen Delivery Method Room Air Oxygen Flow Rate 0 Narrative Exam Narrative: GEN: ill-appearing, pale HEENT: dry mucous membranes, PERRL NECK: trachea midline, no JVD CV: regular rate and rhythm, no murmurs PULM: clear bilaterally ABD: soft, nontender, nondistended, no organomegaly EXT: warm and well perfused with no edema NEURO: awake, alert, oriented, no focal deficits Objective Labs 07/14/23 04:20 07/14/23 04:20 Labs: Laboratory Results - last 24 hr 07/13/23 07/13/23 07/14/23 16:30 21:07 04:20 WBC 7.4 RBC 4.32 L Hgb 10.8 L 10.1 L Hct 31.1 L MCV 72.1 L MCH 23.4 L MCHC 32.4 RDW 18.4 H Plt Count 218 Neut % (Auto) 61.8 Lymph % (Auto) 27.5 [place] % (Auto) 8.9 Eos % (Auto) 1.0 L Baso % (Auto) 0.8 Neut # (Auto) 4600 Lymph # (Auto) 2000 [place] # (Auto) 700 Eos # (Auto) 100 Baso # (Auto) 100 Sodium 136 L Potassium 3.9 Chloride 105 Carbon Dioxide 24 BUN 22 H Creatinine 1.18 Estimated GFR > 60 BUN/Creatinine Ratio 18.6 Glucose 330 H D Calcium 7.7 L Nasal Screen MRSA (PCR) Not detected [facility] Medical History Marijuana use History of MRSA infection History of pneumonia Blurry vision, bilateral Diabetic neuropathy Bipolar disorder with depression Nausea and vomiting Diabetes type 1, uncontrolled Diabetic gastroparesis Surgical History No pertinent past surgical history Family History Mother No known health problems Father No known health problems Social History household members: family Smoking Status: Former smoker alcohol intake: former Assessment & Plan Assessment & Plan narrative: # acute intractable nausea vomiting with suspected hematemesis, now improving -CT abdomen shows mod hiatal hernia and thickening at GE junction, concern for PUD or Joey lesions with coffee-ground emesis. -EGD by gen surg on 07/13 showed esophagitis and gastritis, no ulcerations or active bleeding -continue PPI -antiemetics IV -IVF # SHAN, resolved -Cr 1.37, baseline of 1 -IVF -Cr now normal # type 1 diabetes without evidence of DKA -restart ACHS with lantus 20u while advancing diet -he ran out of insulin cartridges for his home insulin pump # bipolar disorder -continue hydroxyzine # HTN -continue metoprolol # hypothyroidism -continue synthroid Code status is full code. DVT prophylaxis with SCDs. Proxy is britni Carson. I have reviewed home meds and used all available resources to reconcile the home meds. Dispo: Likely home on 07/14 if able to advance diet. Quality VTE Deep Vein Thrombosis/Pulmonary Embolism Present on Admission: No
[2023-07-14] MEDS: diphenhydrAMINE 25 MG TABLET PO (16:46)
[2023-07-14] MEDS: ONDANSETRON 4 MG ODT PO (16:46)
[2023-07-15] VITALS (14 sets, daily range): BP systolic 93–138; BP diastolic 60–86; PULSE 77–88; RESP 16; TEMP 36.3–37.1; O2SAT 96–100
[2023-07-15] MEDS: HYDROMORPHONE 0.5 MG INJ IV ×5 (02:02→21:48)
[2023-07-15 04:52] LABS: Add Manual Diff / Slide Review NO; Basophils Absolute Auto 100 /uL (0-100); Basophils Percent Auto 0.7 % (0-2); Eosinophils Absolute Auto 100 /uL (0-450); Eosinophils Percent Auto 1.5 % (2-4); Hematocrit 32.6 % (41-53); Hemoglobin 10.6 g/dL (13.5-17.5); Lymphocytes Absolute Auto 2200 /uL (1100-4500); Lymphocytes Percent Auto 26.6 % (25-40); Mean Corpuscular HGB Conc 32.4 % (30-36); Mean Corpuscular Hemoglobin 23.3 PG (26-34); Monocytes Absolute Auto 900 /uL (0-900); Monocytes Percent Auto 10.3 % (3-14); Neutrophils Absolute Auto 5100 /uL (1500-7000); Neutrophils Percent Auto 60.9 % (50-75); Platelet Count 230 X10^3/uL (150-400); Red Blood Cell Count 4.53 X10^6/uL (4.5-5.9); Red Cell Distribution Width 18.1 % (11.6-14.8); White Blood Cell Count 8.4 X10^3/uL (4.5-11.0)
[2023-07-15 06:00] LABS: BUN Creatinine Ratio 13.5 (6-22); Blood Urea Nitrogen 13 mg/dL (9-20); Calcium 8.1 mg/dL (8.4-10.2); Carbon Dioxide 28 mmol/L (22-32); Chloride 100 mmol/L (98-107); Estimated Glomerular Filt Rate > 60 mL/min (>60); Glucose 257 mg/dL (70-100); HEMOLYSIS < 15 (0-50); Potassium 3.6 mmol/L (3.4-5.1); Sodium 132 mmol/L (137-145)
[2023-07-15] MEDS: PANTOPRAZOLE DR 20 MG TABLET 40 MG PO (06:04)
[2023-07-15] MEDS: LEVOTHYROXINE 25 MCG TABLET PO (06:04)
[2023-07-15] MEDS: PROCHLORPERAZINE 10 MG/2 ML VIAL IV (07:40)
[2023-07-15] MEDS: METOCLOPRAMIDE HCL 5 MG TABLET 10 MG PO ×3 (07:41→16:55)
[2023-07-15] MEDS: INSULIN LISPRO 100 UNIT/ML 3ML VIAL SUBCUT ×3 (07:50→16:54)
[2023-07-15] MEDS: LORazepam 0.5 MG TABLET PO ×2 (09:20→18:55)
[2023-07-15] MEDS: droNABinol 2.5 MG CAPSULE PO ×2 (09:20→16:54)
[2023-07-15] MEDS: hydrOXYzine HCL 25 MG TABLET PO ×3 (09:20→20:27)
[2023-07-15] MEDS: METOPROLOL IR 25 MG TABLET PO (09:20)
[2023-07-15] MEDS: INSULIN GLARGINE 100 UNIT/ML 3ML PEN 20 UNIT SUBCUT (09:23)
[2023-07-15] MEDS: ERYTHROMYCIN BASE 250 MG TABLET PO ×2 (11:55→16:55)
--- NOTE | 2023-07-15 14:11 | PM.PN.1 ---
Subjective Subjective Interval history: Patient still not feeling well. Vomited a few times this morning. Ate solids yesterday but now back to liquids. Hasn't had BM in almost a week. Exam Vital Signs (past 8 hours): - 07/15/23 07:40 07/15/23 09:00 07/15/23 12:49 Temperature 97.8 F 97.4 F L Pulse Rate 88 82 77 Respiratory Rate 16 16 Blood Pressure 122/75 98/60 114/75 Pulse Oximetry 97 97 Oxygen Flow Rate 0 0 Oxygen Delivery Method Room Air Oxygen Flow Rate 0 Narrative Exam Narrative: GEN: ill-appearing, pale HEENT: dry mucous membranes, PERRL NECK: trachea midline, no JVD CV: regular rate and rhythm, no murmurs PULM: clear bilaterally ABD: soft, nontender, nondistended, no organomegaly EXT: warm and well perfused with no edema NEURO: awake, alert, oriented, no focal deficits Objective Labs 07/15/23 04:16 07/15/23 04:16 Labs: Laboratory Results - last 24 hr 07/15/23 04:16 WBC 8.4 RBC 4.53 Hgb 10.6 L Hct 32.6 L MCV 72.0 L MCH 23.3 L MCHC 32.4 RDW 18.1 H Plt Count 230 Neut % (Auto) 60.9 Lymph % (Auto) 26.6 [place] % (Auto) 10.3 Eos % (Auto) 1.5 L Baso % (Auto) 0.7 Neut # (Auto) 5100 Lymph # (Auto) 2200 [place] # (Auto) 900 Eos # (Auto) 100 Baso # (Auto) 100 Sodium 132 L Potassium 3.6 Chloride 100 Carbon Dioxide 28 BUN 13 Creatinine 0.96 Estimated GFR > 60 BUN/Creatinine Ratio 13.5 Glucose 257 H Calcium 8.1 L PFSH Medical History Marijuana use History of MRSA infection History of pneumonia Blurry vision, bilateral Diabetic neuropathy Bipolar disorder with depression Nausea and vomiting Diabetes type 1, uncontrolled Diabetic gastroparesis Surgical History No pertinent past surgical history Family History Mother No known health problems Father No known health problems Social History household members: family Smoking Status: Former smoker alcohol intake: former Assessment & Plan Assessment & Plan narrative: # acute intractable nausea vomiting with suspected hematemesis -CT abdomen shows mod hiatal hernia and thickening at GE junction, concern for PUD or Joey lesions with coffee-ground emesis. -EGD by gen surg on 07/13 showed esophagitis and gastritis, no ulcerations or active bleeding -continue PPI -antiemetics IV, added erythromycin TIDWM and marinol as he uses marijuana for nausea at home -IVF -full liquid diet for lunch, then if tolerating can advance for dinner # constipation -laxatives daily # SHAN, resolved -Cr 1.37, baseline of 1 -IVF -Cr now normal # type 1 diabetes without evidence of DKA -continue ACHS with lantus 20u daily -he ran out of insulin cartridges for his home insulin pump # bipolar disorder -continue hydroxyzine # HTN -continue metoprolol # hypothyroidism -continue synthroid Code status is full code. DVT prophylaxis with SCDs. Proxy is britni Carson. I have reviewed home meds and used all available resources to reconcile the home meds. Dispo: Home in 1-2 days if able to tolerate po. Quality VTE Deep Vein Thrombosis/Pulmonary Embolism Present on Admission: No
[2023-07-15] MEDS: polyethylene glycoL 3350 17 GM POWD.PACK PO (14:32)
[2023-07-15] MEDS: SENNOSIDES 8.6 MG TABLET PO (14:32)
--- NOTE | 2023-07-15 16:05 | DIET.CONS ---
Dietary Consultation Note Admission Date: 07/15/2023 10:20 Assessment: 33 y M admitted for intractable N/V. Nutrition consulted for severe gastroparesis, diet recs, assess for malnutrition. Met with pt at bedside who reports receiving nutrition educ in past on both gastroparesis and t1dm. Reports a 1:15 carb ratio. Only symptoms he experiences are N/V every once in a while, ~1x/month. Before hospitalization, reports both appetite and po intakes were normal. During hospitalization, reports having appetite, but eating less d/t N/V. No weight loss noted. Full liquids for lunch today, which he tolerated. Diet advanced to soft, low fiber tonight. Ht: 177.8 cm Wt: 83.915 kg BMI: 26.5 UBW: 84 kg per pt report Last BM: 07/09/23 (07/13/23 16:17) MNA: 11 Jimbo Score: 23 Diet: 07/15/23 Lunch Soft,Low Fiber (Low residue) Diet Diet Modifications: Food Texture: Level 7 - Regular Liquid Consistency: Level 0 - Thin Nutrition Percent Meal Consumed 50% 07/14/23 12:00 Percent Meal Consumed snack 07/13/23 23:37 Percent Meal Consumed pt is npo 07/13/23 18:00 Labs: RBC 4.53 X10^6/uL (4.5-5.9) 07/15/23 04:16 Hgb 10.6 g/dL (13.5-17.5) L 07/15/23 04:16 Hct 32.6 % (41-53) L 07/15/23 04:16 Creatinine 0.96 mg/dL (0.66-1.25) 07/15/23 04:16 Lactate 1.8 mmol/L (0.7-2.1) 07/13/23 13:30 Nutrition Diagnosis: Inadequate oral intake r/t altercations in GI function/structure aeb 5-6 days <75% recorded po intake Interventions: 1. Re-assess based on tolerance of low fiber trial for dinner- semi-soft or full liquid as needed 2. Provided review on gastroparesis, discussed ways to help prevent and manage symptoms nutritionally, when symptoms are severe- replacing some meals w/ liquids adequate in protein and calories, small freq meals, semi-soft foods as needed, low fiber, lower fat, chewing well, sitting up and w/ BG management Monitoring/Evaluations: BG, po tolerance Electronically Signed by: Julia Márquez 07/15/23 16:05 Clinical Dietitian [address] [address]
[2023-07-15] MEDS: METOCLOPRAMIDE 10 MG/2 ML INJ IV (20:27)
--- NOTE | 2023-07-15 21:59 | PC.NURSE ---
PATIENT PASSED AT 213, FAMILY IN ROOM
[2023-07-16] MEDS: HYDROMORPHONE 0.5 MG INJ IV ×2 (05:05)
[2023-07-16] MEDS: LEVOTHYROXINE 25 MCG TABLET PO (05:05)
[2023-07-16 05:33] LABS: Add Manual Diff / Slide Review NO; Basophils Absolute Auto 200 /uL (0-100); Basophils Percent Auto 2.2 % (0-2); Eosinophils Absolute Auto 100 /uL (0-450); Eosinophils Percent Auto 1.1 % (2-4); Hematocrit 33.8 % (41-53); Hemoglobin 10.8 g/dL (13.5-17.5); Lymphocytes Absolute Auto 1900 /uL (1100-4500); Lymphocytes Percent Auto 22.5 % (25-40); Mean Corpuscular HGB Conc 31.9 % (30-36); Monocytes Absolute Auto 800 /uL (0-900); Monocytes Percent Auto 9.5 % (3-14); Neutrophils Absolute Auto 5400 /uL (1500-7000); Neutrophils Percent Auto 64.7 % (50-75); Platelet Count 247 X10^3/uL (150-400); Red Cell Distribution Width 17.9 % (11.6-14.8); White Blood Cell Count 8.4 X10^3/uL (4.5-11.0)
[2023-07-16 05:38] LABS: BUN Creatinine Ratio 16.5 (6-22); Blood Urea Nitrogen 17 mg/dL (9-20); Calcium 8.3 mg/dL (8.4-10.2); Carbon Dioxide 31 mmol/L (22-32); Chloride 98 mmol/L (98-107); Estimated Glomerular Filt Rate > 60 mL/min (>60); Glucose 173 mg/dL (70-100); HEMOLYSIS 35 (0-50); Potassium 3.6 mmol/L (3.4-5.1); Sodium 132 mmol/L (137-145)
[2023-07-16] MEDS: PANTOPRAZOLE DR 20 MG TABLET 40 MG PO (08:00)
[2023-07-16] MEDS: INSULIN LISPRO 100 UNIT/ML 3ML VIAL SUBCUT (08:00)
--- NOTE | 2023-07-16 08:15 | P.DS_ITS ---
History of Present Illness History of Present Illness Date Patient Seen: 07/16/23 Time Patient Seen: 08:16 Chief complaint: Throwing up blood Narrative: Valentin Noble is a 33yo M with PMH of DM1 on insulin pump, gastroparesis, diabetic neuropathy, bipolar disorder, marijuana use and hypothyroidism who presents with NV and coffee-ground emesis. Patient states he began vomiting 5 days ago and has probably vomited over 30 times since. He noticed his emesis becoming coffee-ground last night so he came to the ED today. In the ED he was noted to have vomited approx 700cc of dark coffee grounds. CT abdomen showed thickening at GE junction concerning for esophagitis. Gen surg contacted who will perform EGD tomorrow. Patient currently saying his nausea is controlled. He denies CP, SOB, headache, diarrhea or vertigo. Discharge Providers Provider Date of admission: 07/15/23 10:20 Discharge Date: 07/16/23 Primary care physician: Doctor Shana MD Consults: 07/13/23 15:13 Consult to Physician Stat Comment: Consulting Provider: Mayela Coburn Reason for consultation: esophagitis Has provider been notified: Yes 07/15/23 09:16 Consult to Dietitian, Adult Routine Comment: Reason For Exam: severe gastroparesis, diet recs, assess for malnut Discharge provider: Jagjit Phipps DO Summary Hospital Course Discharge Diagnosis: # acute intractable nausea vomiting with suspected hematemesis # constipation # SHAN, resolved # type 1 diabetes without evidence of DKA # bipolar disorder # HTN # hypothyroidism Hospital Course: This is a 33 year old male with PMH of type 1 diabetes, HTN, hypothyroid, bipolar disorder who presented with intractable nausea and vomiting. He possibly had hematemesis as well. EGD was performed with gastritis and esophagitis noted. He had minimal improvement with usual reglan. He was started on PPI and erythromycin with improvement. He was tolerating a diet at the time of discharge, and SHAN that was present on admission had resolved. He did not have evidence of DKA. He was discharged with 4 week prescription for erythromycin for now, though this should not be continued beyond that time frame. Further evaluation and management is recommended with GI as an outpatient. Time Spent with Patient Time spent: Greater than 30 minutes Exam Vital Signs (past 8 hours): Oxygen Delivery Method Room Air Oxygen Flow Rate 0 Narrative Exam Narrative: GEN: ill-appearing, pale HEENT: dry mucous membranes, PERRL NECK: trachea midline, no JVD CV: regular rate and rhythm, no murmurs PULM: clear bilaterally ABD: soft, nontender, nondistended, no organomegaly EXT: warm and well perfused with no edema NEURO: awake, alert, oriented, no focal deficits Objective Labs 07/16/23 04:40 07/16/23 04:40 Labs: Laboratory Results - last 24 hr 07/16/23 04:40 WBC 8.4 RBC 4.70 Hgb 10.8 L Hct 33.8 L MCV 72.0 L MCH 23.0 L MCHC 31.9 RDW 17.9 H Plt Count 247 Neut % (Auto) 64.7 Lymph % (Auto) 22.5 L [place] % (Auto) 9.5 Eos % (Auto) 1.1 L Baso % (Auto) 2.2 H Neut # (Auto) 5400 Lymph # (Auto) 1900 [place] # (Auto) 800 Eos # (Auto) 100 Baso # (Auto) 200 H Sodium 132 L Potassium 3.6 Chloride 98 Carbon Dioxide 31 BUN 17 Creatinine 1.03 Estimated GFR > 60 BUN/Creatinine Ratio 16.5 Glucose 173 H Calcium 8.3 L PFSH Medical History Marijuana use History of MRSA infection History of pneumonia Blurry vision, bilateral Diabetic neuropathy Bipolar disorder with depression Nausea and vomiting Diabetes type 1, uncontrolled Diabetic gastroparesis Surgical History No pertinent past surgical history Family History Mother No known health problems Father No known health problems Social History household members: family Smoking Status: Former smoker alcohol intake: former Discharge Plan Discharge Plan Patient Disposition: Home Provider Discharge Comment: You were admitted to the hospital with vomiting blood. Endoscopy showed some irritation in the stomach lining. Continue antacid, reglan and you were started on a new medication for slowed stomach emptying due to diabetes. This medication can only be taken for 4 weeks, please follow up with PCP for further management and possible GI referral. Discharge orders & Medications Prescriptions: New erythromycin 250 mg Tablet 250 mg PO TIDWM 28 Days Qty: 84 0RF omeprazole 40 mg capsule,delayed release(DR/EC) 40 mg PO DAILY 30 Days Qty: 30 0RF Continued hydroxyzine HCl 25 mg PO TID levothyroxine 25 mcg Tablet 25 mcg PO DAILY diphenhydramine HCl 25 mg Tablet 25 mg PO BEDTIME PRN (Reason: Insomnia) metoprolol tartrate 25 mg Tablet 25 mg PO DAILY acetaminophen 500 mg Capsule 500 mg PO Q6H PRN (Reason: Pain (Scale Score 1-3)) metoclopramide HCl [Reglan] 10 mg tablet 10 mg PO Q8HR PRN (Reason: nausea and vomiting) Qty: 40 0RF metoclopramide HCl [Reglan] 10 mg Tablet 10 mg PO TID Discontinued Acid Packer Inspector (omeprazole) 40 mg PO BID Follow up/Referrals: Miscellaneous,Doctor, MD [Primary Care Provider] - Diet/Activity/Treatments Diet: Diet as Tolerated and Carb-consistent/Diabetic Activity: As tolerated, no restrictions Visit Report/Discharge Packet Instructions: DI for Gastroesophageal Reflux Disease (GERD), DI for Gastritis, DI for Esophagitis Stand Alone Forms: Patient Portal/API, Stroke Signs & Symptoms, EGD Result: [facility] S[facility], EGD Result: [facility] Discharge Data Primary Care Provider: Shana,Doctor Quality VTE Deep Vein Thrombosis/Pulmonary Embolism Present on Admission: No
[2023-07-16] MEDS: ERYTHROMYCIN BASE 250 MG TABLET PO (08:40)
[2023-07-16] MEDS: METOCLOPRAMIDE HCL 5 MG TABLET 10 MG PO (08:40)
[2023-07-16] MEDS: hydrOXYzine HCL 25 MG TABLET PO (08:40)
[2023-07-16] MEDS: METOPROLOL IR 25 MG TABLET PO (08:40)
[2023-07-16] MEDS: SENNOSIDES 8.6 MG TABLET PO (08:40)
[2023-07-16] MEDS: droNABinol 2.5 MG CAPSULE PO (08:47)
[2023-07-16] MEDS: INSULIN GLARGINE 100 UNIT/ML 3ML PEN 20 UNIT SUBCUT (08:47)
[2023-07-16 09:01] VITALS: BP 171/109; PULSE 73; O2SAT 98
[2023-07-16] MEDS: polyethylene glycoL 3350 17 GM POWD.PACK PO (09:05)
[2023-07-16] MEDS: HYDROMORPHONE 2 MG TABLET PO (09:15)
== END 2023-07-16 10:51 | disposition home or self-care (01) ==
LOC: ED 15:13 → ICU 15:44 → AC 07-14 11:14
PROVIDERS: Emergency Medicine; Surgery; Admitting Provider Student in an Organized Health Care Education/Training Program; Emergency Provider Emergency Medicine; Referring Provider Emergency Medicine; Visit Provider Student in an Organized Health Care Education/Training Program
PROC: 0DJ08ZZ Inspection of Upper Intestinal Tract, Via Natural or Artificial Opening Endoscopic (ICD-10-PCS; CPT 43239; principal; 2023-07-14 15:15)
DX: K29.70 Gastritis, unspecified, without bleeding (principal); K20.90 Esophagitis, unspecified without bleeding; N17.9 Acute kidney failure, unspecified; Z96.41 Presence of insulin pump (external) (internal); F31.9 Bipolar disorder, unspecified; I10 Essential (primary) hypertension; E03.9 Hypothyroidism, unspecified; E10.43 Type 1 diabetes mellitus with diabetic autonomic (poly)neuropathy; K59.00 Constipation, unspecified; R11.2 Nausea with vomiting, unspecified; Z87.891 Personal history of nicotine dependence
CPT/HCPCS: 43239; 36415; 43235; 80048; 80053; 82009; 82962; 83605; 83690; 85018; 85025; 87797; 93005; 96361; 96372; 96374; 96375; 96376; 99232; 99284; G0378; A9270; C9113; J0330; J0780; J1170; J1200; J1815; J2405; J2704; J2765; J3010

== ENCOUNTER 2023-07-19 18:36 | Observation (INO) | payer OTHER, MEDICAID, SELFPAY ==
[2023-07-13 16:17] VITALS: BMI 26.5
[2023-07-19 18:41] VITALS: BP 107/55; PULSE 85; RESP 16; TEMP 37.1; O2SAT 98; BMI 25.8
--- NOTE | 2023-07-19 19:02 | ED.GENADULT ---
HPI - General Adult General Chief complaint: Abdominal Pain Stated complaint: returning patient, vomiting Time Seen by Provider: 07/19/23 18:52 Source: patient Mode of arrival: Ambulatory History of Present Illness HPI narrative: 33-year-old gentleman with type 1 diabetes with a pump and continuous glucose monitor, sugars have been in 100-150 range and are currently at 198, gastroparesis, diabetic neuropathy, bipolar, hypothyroidism history of marijuana use who was admitted to the hospital from July 12 to with similar complaints coffee-ground colored emesis and a final diagnosis of esophagitis. EGD without admission showed gastritis and esophagitis. He was started on a PPI and erythromycin with some improvement. He states that at home he was doing well for 2 days and last night around midnight his blood sugar dropped to 20, he drank some orange juice to compensate and began vomiting and his continued vomiting all day. No fevers. Normal bowel movements without constipation. Persistent vomiting. He has not noticing any coffee-ground findings to the emesis today. He describes no fevers, palpitations or overt chest pain. Related Data Home Medications Medication Instructions Recorded Confirmed metoclopramide HCl 10 mg tablet 10 mg PO TID nausea 12/30/17 07/13/23 (Reglan) hydroxyzine HCl 25 mg PO TID 02/12/20 07/13/23 acetaminophen 500 mg capsule 500 mg PO Q6H PRN Pain (Scale 07/09/23 07/13/23 Score 1-3) diphenhydramine HCl 25 mg tablet 25 mg PO BEDTIME PRN Insomnia 07/09/23 07/13/23 levothyroxine 25 mcg tablet 25 mcg PO DAILY 07/09/23 07/13/23 metoprolol tartrate 25 mg tablet 25 mg PO DAILY 07/09/23 07/13/23 Previous Rx's Medication Instructions Recorded erythromycin 250 mg tablet 250 mg PO TIDWM 28 days #84 tabs 07/16/23 metoclopramide HCl 10 mg tablet 10 mg PO Q8HR PRN nausea and 07/16/23 (Reglan) vomiting #40 tabs omeprazole 40 mg capsule,delayed 40 mg PO DAILY 30 days #30 caps 07/16/23 release Allergies Allergy/AdvReac Type Severity Reaction Status Date / Time aspirin [ASPIRIN] Allergy Unknown MAKES ME Verified 07/10/23 10:52 GO DEAF hydrocodone [HYDROCODONE] AdvReac Intermediate VOMITING Verified 07/10/23 10:52 ibuprofen [IBUPROFEN] AdvReac Intermediate HURTS Verified 07/10/23 10:52 KIDNEYS Review of Systems Review of Systems Narrative: Pertinent positive and negative findings as per HPI Patient History Medical History (Updated 07/19/23 @ 23:55 by Daphne Montejo MD) Marijuana use History of MRSA infection History of pneumonia Blurry vision, bilateral Diabetic neuropathy Bipolar disorder with depression Nausea and vomiting Diabetes type 1, uncontrolled Diabetic gastroparesis Surgical History No pertinent past surgical history Family History Mother No known health problems Father No known health problems Social History household members: family Smoking Status: Former smoker alcohol intake: former Smoking Status: Former smoker alcohol intake frequency: other Substance Use Type: does not use Exam Initial Vital Signs Initial Vital Signs: Vital Signs Temperature 98.8 F 07/19/23 18:41 Pulse Rate 85 07/19/23 18:41 Respiratory Rate 16 07/19/23 18:41 Blood Pressure 107/55 L 07/19/23 18:41 Pulse Oximetry 98 07/19/23 18:41 Oxygen Delivery Method Room Air 07/19/23 18:41 General: Pale, chronically ill-appearing gentleman covered up with his hoodie and blankets but cooperative with exam HEENT: Dry mucous membranes, normal sclera with reactive pupils, Respiratory: Lungs are clear to auscultation, no wheezing no rales no rhonchi. Full and symmetrical air movement Cardiac: Mild tachycardia but otherwise Regular rate and rhythm no murmurs no bruits Abdomen: Soft, midepigastric tenderness without rebound or guarding. No flank pain Skin: Pale with overall poor perfusion Neurologic: Grossly neurologically intact with no obvious asymmetries or abnormalities Extremities: No trauma, no lower extremity edema Psych: Cooperative, appropriate insight and affect Course Orders Ordered: ED Orders 07/19/23 19:30 Complete Blood Count AUTO DIFF Stat Comprehensive Metabolic Panel Stat Ketones (Beta-Hydroxybutyrate) Stat Lipase Stat 07/19/23 20:54 VBG [Venous Blood Gas] Stat Hydromorphone HCl (Hydromorphone 0.5 Mg Inj) 0.5 mg IV Q15MIN PRN PRN Reason: Pain, Last Admin: 07/19/23 20:28 Dose: 0.5 mg Documented By: ASAF Ondansetron HCl (Ondansetron 4 Mg/2 Ml Inj) 4 mg IV NOW PRN PRN Reason: Nausea And Vomiting Ondansetron HCl (Ondansetron 4 Mg Odt) 4 mg PO NOW PRN PRN Reason: Nausea And Vomiting Discontinued Medications Sodium Chloride (Normal Saline 0.9%) 1,000 mls @ 1,000 mls/hr IV BOLUS ONE Stop: 07/19/23 21:04 Last Admin: 07/19/23 20:30 Dose: 1,000 mls/hr Documented By: ASAF Sodium Chloride (Normal Saline 0.9%) 1,000 mls @ 1,000 mls/hr IV BOLUS ONE Stop: 07/19/23 21:06 Lorazepam (Lorazepam 2 Mg/Ml Inj) 1 mg IV NOW ONE Stop: 07/19/23 20:06 Last Admin: 07/19/23 20:26 Dose: 1 mg Documented By: ASAF Prochlorperazine (Prochlorperazine 10 Mg/2 Ml Vial) 10 mg IV NOW ONE Stop: 07/19/23 20:06 Last Admin: 07/19/23 20:22 Dose: 10 mg Documented By: ASAF Vital Signs Vital signs: Vital Signs - 8 hr 07/19/23 18:41 07/19/23 20:22 Temperature 98.8 F Pulse Rate 85 91 H Respiratory Rate 16 Blood Pressure 107/55 L 118/84 Pulse Oximetry 98 Oxygen Delivery Method Room Air Medical Decision Making Lab Data 07/19/23 19:30 07/19/23 19:30 Labs: Lab Results 07/19/23 07/19/23 Range/Units 19:30 20:54 WBC 8.6 (4.5-11.0) X10^3/uL RBC 5.10 (4.5-5.9) X10^6/uL Hgb 12.0 L (13.5-17.5) g/dL Hct 36.8 L (41-53) % MCV 72.3 L (80-100) fL MCH 23.5 L (26-34) PG MCHC 32.5 (30-36) % RDW 18.5 H (11.6-14.8) % Plt Count 335 (150-400) X10^3/uL Neut % (Auto) 63.4 (50-75) % Lymph % (Auto) 25.5 (25-40) % [place] % (Auto) 9.0 (3-14) % Eos % (Auto) 0.7 L (2-4) % Baso % (Auto) 1.4 (0-2) % Neut # (Auto) 5400 (1345-5444) /uL Lymph # (Auto) 2200 (9378-0341) /uL [place] # (Auto) 800 (0-900) /uL Eos # (Auto) 100 (0-450) /uL Baso # (Auto) 100 (0-100) /uL VBG pH 7.57 H (7.33-7.43) VBG pCO2 23.4 L (45-50) mmHg VBG pO2 89 H (35-45) mmHg VBG HCO3 22 L (24-28) mmol/L VBG Total CO2 22 L (24-29) mmol/L VBG O2 Saturation 98 H (70-75) % VBG Base Excess 0.0 (0-4) mmol/L FiO2 21 Sodium 137 (137-145) mmol/L Potassium 4.0 (3.4-5.1) mmol/L Chloride 99 (98-107) mmol/L Carbon Dioxide 29 (22-32) mmol/L BUN 20 (9-20) mg/dL Creatinine 1.55 H (0.66-1.25) mg/dL Estimated GFR > 60 (>60) mL/min BUN/Creatinine Ratio 12.9 (6-22) Glucose 120 H (70-100) mg/dL Calcium 9.5 (8.4-10.2) mg/dL Total Bilirubin 0.8 (0.2-1.3) mg/dL AST 26 (17-59) IU/L ALT 18 (<50) IU/L Alkaline Phosphatase 91 (38-126) U/L Total Protein 7.8 (6.3-8.2) g/dL Albumin 4.5 (3.5-5.0) g/dL Globulin 3.3 (1.7-4.1) g/dL Albumin/Globulin Ratio 1.4 (1.0-2.8) Lipase 30 (23-300) U/L Ketones 0.73 H (<0.27) mmol/L MDM Narrative Medical decision making narrative: CC: Gastroparesis with persistent vomiting Complicating co-morbidities: Type 2 diabetes, recurrent episodes of gastroparesis, hospitalized for similar from July 12 through July 15. He has a diabetic pump in place Data collected from: patient Medical records reviewed: Recent hospitalization July 12- for similar Differential considered: Gastroparesis, DKA, cannabinoid hyperemesis syndrome Exam documented above, pertinent findings include: Pale, acutely ill and chronically ill-appearing. Midepigastric tenderness without rebound or guarding. No evidence of acute surgical abdomen Lab Test results independently reviewed as above. Pertinent findings: Chemistries show acute kidney injury with discharge creatinine on July 15 at 1 now up to 1.5. Remainder of chemistries are fairly reassuring CBC is reassuring H&H is increased nicely in the past 3 days likely reflecting his degree of dehydration VBG has a pH of 7.57 CO2 of 23 and a bicarb of 22 Treatments: IV Compazine, Ativan, Dilaudid, 2 L of fluid. Patient is feeling somewhat better is able to at least keep sips of water down but feels that the crackers may be a bit much. Re-evaluations:845pm after a mg of Ativan and a half a mg of Dilaudid patient is curled up in position tucked into his blankets and hoodie and respiratory rate is decreasing. He is placed on 2 L of oxygen, reposition so he is sitting upright and saturations are improved and with simple mobilization, deep breathing and talking with the patient's saturations our at 100%. We will keep a close eye on him rather than adding any Narcan at this time Discussion: 33-year-old gentleman with gastroparesis and cannabinoid hyperemesis syndrome with persistent vomiting for the past 24 hours and acute kidney injury. With shared decision-making he prefer to stay in the hospital as he is worried that he will simply go home and began vomiting again and need to return. This is a very appropriate concern. Case is discussed with Dr. Fitzpatrick who will admit the patient. Patient does have an insulin pump, it remains on I did not change any of the settings and his blood sugars have been well controlled in the 100-150 range while in the emergency department based on his own continuous glucose monitor. Discharge Plan Departure Patient Disposition: Admitted as Observation Clinical Impression: Diabetic gastroparesis, Acute kidney injury Nausea & vomiting Qualifiers: Vomiting type: unspecified Qualified Code(s): R11.2 - Nausea with vomiting, unspecified Prescriptions: No Action hydroxyzine HCl 25 mg PO TID levothyroxine 25 mcg Tablet 25 mcg PO DAILY diphenhydramine HCl 25 mg Tablet 25 mg PO BEDTIME PRN (Reason: Insomnia) metoprolol tartrate 25 mg Tablet 25 mg PO DAILY acetaminophen 500 mg Capsule 500 mg PO Q6H PRN (Reason: Pain (Scale Score 1-3)) erythromycin 250 mg Tablet 250 mg PO TIDWM 28 Days Qty: 84 0RF metoclopramide HCl [Reglan] 10 mg tablet 10 mg PO Q8HR PRN (Reason: nausea and vomiting) Qty: 40 0RF omeprazole 40 mg capsule,delayed release(DR/EC) 40 mg PO DAILY 30 Days Qty: 30 0RF metoclopramide HCl [Reglan] 10 mg Tablet 10 mg PO TID Referrals: Miscellaneous,Doctor, MD [Primary Care Provider] - Admit Date/Time: 07/19/23 23:49 Admit Provider: Chance Lehman
[2023-07-19 19:40] LABS: Add Manual Diff / Slide Review NO; Basophils Absolute Auto 100 /uL (0-100); Basophils Percent Auto 1.4 % (0-2); Eosinophils Absolute Auto 100 /uL (0-450); Eosinophils Percent Auto 0.7 % (2-4); Hematocrit 36.8 % (41-53); Lymphocytes Absolute Auto 2200 /uL (1100-4500); Lymphocytes Percent Auto 25.5 % (25-40); Mean Corpuscular HGB Conc 32.5 % (30-36); Mean Corpuscular Hemoglobin 23.5 PG (26-34); Mean Corpuscular Volume 72.3 fL (80-100); Monocytes Absolute Auto 800 /uL (0-900); Neutrophils Absolute Auto 5400 /uL (1500-7000); Neutrophils Percent Auto 63.4 % (50-75); Platelet Count 335 X10^3/uL (150-400); Red Cell Distribution Width 18.5 % (11.6-14.8); White Blood Cell Count 8.6 X10^3/uL (4.5-11.0)
[2023-07-19 19:57] LABS: Alanine Aminotransferase 18 IU/L (<50); Albumin 4.5 g/dL (3.5-5.0); Albumin Globulin Ratio 1.4 (1.0-2.8); Alkaline Phosphatase 91 U/L (38-126); Aspartate Aminotransferase 26 IU/L (17-59); BUN Creatinine Ratio 12.9 (6-22); Bilirubin Total 0.8 mg/dL (0.2-1.3); Blood Urea Nitrogen 20 mg/dL (9-20); Calcium 9.5 mg/dL (8.4-10.2); Carbon Dioxide 29 mmol/L (22-32); Chloride 99 mmol/L (98-107); Estimated Glomerular Filt Rate > 60 mL/min (>60); Globulin 3.3 g/dL (1.7-4.1); Glucose 120 mg/dL (70-100); HEMOLYSIS < 15 (0-50); Lipase 30 U/L (23-300); Sodium 137 mmol/L (137-145); Total Protein 7.8 g/dL (6.3-8.2)
[2023-07-19 20:22] VITALS: BP 118/84; PULSE 91
[2023-07-19] MEDS: PROCHLORPERAZINE 10 MG/2 ML VIAL IV (20:22)
[2023-07-19] MEDS: LORazepam 2 MG/ML INJ 1 MG IV (20:26)
[2023-07-19] MEDS: HYDROMORPHONE 0.5 MG INJ IV (20:28)
[2023-07-19] MEDS: SODIUM CHLORIDE 0.9% 1,000 ML 1000 ML IV ×2 (20:30→21:59)
--- NOTE | 2023-07-19 20:44 | PC.NURSE ---
Pt medications administered per orders. Pt sats noted to drop into the low 70s due to decreased respiratory rate. Pt aroused and O2 sats would increase. This RN at bedside for this scenario for 2 more drops in saturation. Pt was placed on 2 Ls O2 after the second occurrence. ARSEN Montejo called to bedside for the third. ARSEN Montejo had the pt adjust to sit up in bed, take deep breaths, and attempt to stay awake.
[2023-07-19 20:53] LABS: Ketones (Beta-Hydroxybutyrate) 0.73 mmol/L (<0.27)
[2023-07-19 21:29] LABS: Fractionated Inspired Oxygen 21; HCO3 VBG 22 mmol/L (24-28); Oxygen Saturation VBG 98 % (70-75); PCO2 VBG 23.4 mmHg (45-50); PO2 VBG 89 mmHg (35-45); Total CO2 VBG 22 mmol/L (24-29); pH VBG 7.57 (7.33-7.43)
[2023-07-19] MEDS: SODIUM CHLORIDE 0.9% 1,000 ML 150 ML IV (23:58)
--- NOTE | 2023-07-20 00:29 | P.HP_ITS ---
History of Present Illness History of Present Illness Chief complaint: returning patient, vomiting Narrative: 33 y/o with of diabetic gastroparesis and recent hospitalization for nausea, vomiting and erosive gastritis with bleed, did better at house for a couple of days until last night. His sugar was low, he had an orange juice and since then he couldn't hold anything down. In the ED he appears dehydrated with Cr of 1.5. A week ago erythromycin was efficient and he was discharged on it but did not fill Rx because I have no insurance. In the ED was treated with antiemetics, IVFs, remains symptomatic, placed in observation. [facility]LY [facility] Medical History (Updated 07/20/23 @ 00:37 by Chance Fitzpatrick MD) HTN (hypertension) Hypothyroidism Marijuana use History of MRSA infection History of pneumonia Blurry vision, bilateral Diabetic neuropathy Bipolar disorder with depression Nausea and vomiting Diabetes type 1, uncontrolled Diabetic gastroparesis Surgical History No pertinent past surgical history Family History Mother No known health problems Father No known health problems Social History household members: family Smoking Status: Former smoker alcohol intake: former Meds Home Medications and Allergies Home Medications Medication Instructions Recorded Confirmed Type hydroxyzine HCl 25 mg PO TID 02/12/20 07/20/23 History diphenhydramine HCl 25 mg tablet 25 mg PO BEDTIME PRN Insomnia 07/09/23 07/20/23 History levothyroxine 25 mcg tablet 25 mcg PO DAILY 07/09/23 07/20/23 History metoprolol tartrate 25 mg tablet 25 mg PO DAILY 07/09/23 07/20/23 History metoclopramide HCl 10 mg tablet 10 mg PO Q8HR PRN nausea and 07/16/23 07/20/23 Rx (Reglan) vomiting #40 tabs omeprazole 40 mg capsule,delayed 40 mg PO DAILY 30 days #30 caps 07/16/23 07/20/23 Rx release Allergies Allergy/AdvReac Type Severity Reaction Status Date / Time aspirin [ASPIRIN] Allergy Unknown MAKES ME Verified 07/10/23 10:52 GO DEAF hydrocodone [HYDROCODONE] AdvReac Intermediate VOMITING Verified 07/10/23 10:52 ibuprofen [IBUPROFEN] AdvReac Intermediate HURTS Verified 07/10/23 10:52 KIDNEYS Review of Systems Constitutional Comments: w/o fever or chills Cardiovascular Comments: w/o chest pain Respiratory Comments: w/o shortness of breath Gastrointestinal Comments: nausea, vomiting. Without coffee-ground emesis or melena this time. Episodic severe epigastric pain. Psychiatric Comments: anxious Exam Vital Signs (past 8 hours): - 07/19/23 18:41 07/19/23 20:22 Temperature 98.8 F Pulse Rate 85 91 H Respiratory Rate 16 Blood Pressure 107/55 L 118/84 Pulse Oximetry 98 Oxygen Delivery Method Room Air Oxygen Delivery Method Room Air Const Other: in no distress Resp Other: normal respiratory effort Cardio Other: RRR GI Other: w/o distension Psych Other: lucid, appropriate mood Objective Labs 07/19/23 19:30 07/19/23 19:30 Labs: Laboratory Results - last 24 hr 07/19/23 07/19/23 19:30 20:54 WBC 8.6 RBC 5.10 Hgb 12.0 L Hct 36.8 L MCV 72.3 L MCH 23.5 L MCHC 32.5 RDW 18.5 H Plt Count 335 Neut % (Auto) 63.4 Lymph % (Auto) 25.5 [place] % (Auto) 9.0 Eos % (Auto) 0.7 L Baso % (Auto) 1.4 Neut # (Auto) 5400 Lymph # (Auto) 2200 [place] # (Auto) 800 Eos # (Auto) 100 Baso # (Auto) 100 VBG pH 7.57 H VBG pCO2 23.4 L VBG pO2 89 H VBG HCO3 22 L VBG Total CO2 22 L VBG O2 Saturation 98 H VBG Base Excess 0.0 FiO2 21 Sodium 137 Potassium 4.0 Chloride 99 Carbon Dioxide 29 BUN 20 Creatinine 1.55 H Estimated GFR > 60 BUN/Creatinine Ratio 12.9 Glucose 120 H Calcium 9.5 Total Bilirubin 0.8 AST 26 ALT 18 Alkaline Phosphatase 91 Total Protein 7.8 Albumin 4.5 Globulin 3.3 Albumin/Globulin Ratio 1.4 Lipase 30 Ketones 0.73 H Assessment & Plan Assessment and plan (1) Diabetic gastroparesis: Status: Acute (2) Diabetes type 1, uncontrolled: Status: Acute (3) Diabetic neuropathy: Status: Acute (4) Esophageal hiatal hernia: Status: Acute (5) GERD (gastroesophageal reflux disease): Status: Acute (6) Anemia: Status: Acute (7) Acute kidney injury: Status: Acute (8) Hypothyroidism: Status: Acute (9) Bipolar disorder with depression: Status: Acute (10) HTN (hypertension): Status: Acute Assessment & Plan narrative: T1 IDDM / uncontrolled / Diabetic gastroparesis and neuropathy - insulin pump - erythromycin, Reglan, pain management - apparently couldn't afford prescribed erythromycin 250 mg 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
[2023-07-20 01:12] VITALS: BP 155/110; PULSE 81; RESP 22; TEMP 37.1; O2SAT 99
[2023-07-20 01:17] VITALS: BMI 25.8
[2023-07-20] MEDS: SODIUM CHLORIDE 0.9% 1,000 ML 100 ML IV ×3 (02:28→19:12)
[2023-07-20] MEDS: HYDROMORPHONE 0.5 MG INJ IV ×6 (02:29→21:46)
[2023-07-20] MEDS: MAG HYDROX/ALUMINUM/SIMETH SUS 20 ML, LIDOCAINE VISCOUS 2% 15 ML PO (02:31)
[2023-07-20] MEDS: METOCLOPRAMIDE 10 MG/2 ML INJ IV (02:31)
[2023-07-20 05:30] LABS: Add Manual Diff / Slide Review NO; Basophils Absolute Auto 0 /uL (0-100); Basophils Percent Auto 0.5 % (0-2); Eosinophils Absolute Auto 0 /uL (0-450); Eosinophils Percent Auto 0.4 % (2-4); Hematocrit 30.6 % (41-53); Hemoglobin 9.9 g/dL (13.5-17.5); Lymphocytes Absolute Auto 1900 /uL (1100-4500); Lymphocytes Percent Auto 23.1 % (25-40); Mean Corpuscular HGB Conc 32.4 % (30-36); Mean Corpuscular Hemoglobin 23.5 PG (26-34); Mean Corpuscular Volume 72.4 fL (80-100); Monocytes Absolute Auto 800 /uL (0-900); Monocytes Percent Auto 9.3 % (3-14); Neutrophils Absolute Auto 5400 /uL (1500-7000); Neutrophils Percent Auto 66.7 % (50-75); Platelet Count 265 X10^3/uL (150-400); Red Blood Cell Count 4.23 X10^6/uL (4.5-5.9); Red Cell Distribution Width 18.5 % (11.6-14.8); White Blood Cell Count 8.1 X10^3/uL (4.5-11.0)
[2023-07-20 05:36] LABS: BUN Creatinine Ratio 14.7 (6-22); Blood Urea Nitrogen 17 mg/dL (9-20); Calcium 7.5 mg/dL (8.4-10.2); Carbon Dioxide 28 mmol/L (22-32); Chloride 106 mmol/L (98-107); Estimated Glomerular Filt Rate > 60 mL/min (>60); Glucose 99 mg/dL (70-100); HEMOLYSIS < 15 (0-50); Potassium 3.6 mmol/L (3.4-5.1); Sodium 138 mmol/L (137-145)
[2023-07-20] MEDS: LEVOTHYROXINE 25 MCG TABLET PO (06:32)
--- NOTE | 2023-07-20 07:47 | PM.HP.1 ---
History of Present Illness History of Present Illness Date Patient Seen: 07/20/23 Chief complaint: returning patient, vomiting Narrative: From night doctor: 3 y/o with of diabetic gastroparesis and recent hospitalization for nausea, vomiting and erosive gastritis with bleed, did better at house for a couple of days until last night. His sugar was low, he had an orange juice and since then he couldn't hold anything down. In the ED he appears dehydrated with Cr of 1.5. A week ago erythromycin was efficient and he was discharged on it but did not fill Rx because I have no insurance. In the ED was treated with antiemetics, IVFs, remains symptomatic, placed in observation. Additional information: He has feeling a little bit better today. Still somewhat nauseated. Able to take oral medications. He was unable to fill the erythromycin, due to financial constraints. It was prostate over 800 dollars. He denies any diarrhea. Minimal abdominal pain. No difficulty with cough or shortness a breath. [facility]LY [facility] Medical History HTN (hypertension) Hypothyroidism Marijuana use History of MRSA infection History of pneumonia Blurry vision, bilateral Diabetic neuropathy Bipolar disorder with depression Nausea and vomiting Diabetes type 1, uncontrolled Diabetic gastroparesis Surgical History No pertinent past surgical history Family History Mother No known health problems Father No known health problems Social History household members: family Smoking Status: Former smoker alcohol intake: former Meds Home Medications and Allergies Home Medications Medication Instructions Recorded Confirmed Type hydroxyzine HCl 25 mg PO TID 02/12/20 07/20/23 History diphenhydramine HCl 25 mg tablet 25 mg PO BEDTIME PRN Insomnia 07/09/23 07/20/23 History levothyroxine 25 mcg tablet 25 mcg PO DAILY 07/09/23 07/20/23 History metoprolol tartrate 25 mg tablet 25 mg PO DAILY 07/09/23 07/20/23 History metoclopramide HCl 10 mg tablet 10 mg PO Q8HR PRN nausea and 07/16/23 07/20/23 Rx (Reglan) vomiting #40 tabs omeprazole 40 mg capsule,delayed 40 mg PO DAILY 30 days #30 caps 07/16/23 07/20/23 Rx release Allergies Allergy/AdvReac Type Severity Reaction Status Date / Time aspirin [ASPIRIN] Allergy Unknown MAKES ME Verified 07/10/23 10:52 GO DEAF hydrocodone [HYDROCODONE] AdvReac Intermediate VOMITING Verified 07/10/23 10:52 ibuprofen [IBUPROFEN] AdvReac Intermediate HURTS Verified 07/10/23 10:52 KIDNEYS Review of Systems Review of Systems Narrative: All else reviewed and otherwise unremarkable except as noted in the history and physical. Exam Vital Signs (past 8 hours): - 07/20/23 01:12 Temperature 98.7 F Pulse Rate 81 Respiratory Rate 22 Blood Pressure 155/110 H Pulse Oximetry 99 Oxygen Flow Rate 0 Oxygen Delivery Method Room Air Oxygen Flow Rate 0 Narrative Exam Narrative: NAD, alert and oriented, fluent speech, calm.Chronically ill in appearance. Normocephalic skull, EOMI, anicteric sclera, symmetric pupils. Oropharynx unremarkable, no droop. Neck supple, midline trachea, no adenopathy. Lungs clear, normal rate and effort. Heart regular, no murmur gallop or rub. Abdomen is soft, non distended and non tender. Extremities are free of edema. Skin is free of rash or lesions. Joints are not swollen or deformed. Judgment appears to be normal. Objective Labs 07/20/23 04:50 07/20/23 04:50 Labs: Laboratory Results - last 24 hr 07/19/23 07/19/23 07/20/23 19:30 20:54 04:50 WBC 8.6 8.1 RBC 5.10 4.23 L Hgb 12.0 L 9.9 L Hct 36.8 L 30.6 L MCV 72.3 L 72.4 L MCH 23.5 L 23.5 L MCHC 32.5 32.4 RDW 18.5 H 18.5 H Plt Count 335 265 Neut % (Auto) 63.4 66.7 Lymph % (Auto) 25.5 23.1 L [place] % (Auto) 9.0 9.3 Eos % (Auto) 0.7 L 0.4 L Baso % (Auto) 1.4 0.5 Neut # (Auto) 5400 5400 Lymph # (Auto) 2200 1900 [place] # (Auto) 800 800 Eos # (Auto) 100 0 Baso # (Auto) 100 0 VBG pH 7.57 H VBG pCO2 23.4 L VBG pO2 89 H VBG HCO3 22 L VBG Total CO2 22 L VBG O2 Saturation 98 H VBG Base Excess 0.0 FiO2 21 Sodium 137 138 Potassium 4.0 3.6 Chloride 99 106 Carbon Dioxide 29 28 BUN 20 17 Creatinine 1.55 H 1.16 Estimated GFR > 60 > 60 BUN/Creatinine Ratio 12.9 14.7 Glucose 120 H 99 Calcium 9.5 7.5 L Total Bilirubin 0.8 AST 26 ALT 18 Alkaline Phosphatase 91 Total Protein 7.8 Albumin 4.5 Globulin 3.3 Albumin/Globulin Ratio 1.4 Lipase 30 Ketones 0.73 H Assessment & Plan Assessment & Plan narrative: # Acute intractable nausea vomiting, present on admission and improving. # type 1 diabetes without evidence of DKA, present on admission and stable. # bipolar disorder, present on admission and stable. # HTN, present on admission and stable. # hypothyroidism, present on admission and stable. PLAN: -IV fluids and symptomatic treatment -titrate insulin to treat glucose. Admitted to observation, expectation of a 1 night hospital stay. Time Spent With Patient Time with patient: 30 to 49 minutes with 50% spent counseling/coordinating care Quality MIPS - Admit I confirm the patient?s Advance Care Plan is present, Code status is documented, Surrogate decision maker is in patient?s record [If Yes, STOP here]: Yes MIPS - Meds 'Current medications' to include all prescriptions, [id number] products, herbals, cannabis/cannabidiol products, and vitamin/mineral/dietary (nutritional) supplements. I have utilized all available resources to obtain, update, or review the patient?s current medications. [If Yes, STOP here]: Yes
[2023-07-20 08:00] VITALS: BP 125/66; PULSE 73; RESP 15; TEMP 36.3; O2SAT 97
[2023-07-20] MEDS: ERYTHROMYCIN BASE 250 MG TABLET PO ×3 (08:19→17:00)
[2023-07-20] MEDS: PANTOPRAZOLE DR 40 MG TABLET PO ×2 (08:19→21:41)
[2023-07-20 08:20] VITALS: BP 126/67
[2023-07-20] MEDS: METOPROLOL ER 25 MG TABLET PO (08:20)
[2023-07-20] MEDS: METOCLOPRAMIDE HCL 5 MG TABLET 10 MG PO ×3 (08:20→21:41)
[2023-07-20 12:00] VITALS: BP 122/75; PULSE 74; RESP 16; TEMP 36.6; O2SAT 95
[2023-07-20] MEDS: LORazepam 1 MG TABLET PO ×2 (12:22→19:46)
--- NOTE | 2023-07-20 12:45 | CM.DANOTE ---
DCP Assessment Note Pt is a 33yo M here with diabetic gastroparesis, with recent admissions to the floor 24 to 24 and 6-624 to 6-7-24. Admitted for nausea and vomiting. PCP none here. previously [facility] in [place], [place] Payer: [facility] ([place], Welfare coverage) OCCASIONAL BABYSITTER reviewed EMR. Per chart review/hospitalist in morning rounds, pt could not fill his prescription after his previous discharge due to not being able to afford the out of pocket cost of $800, [place] M[employer] not able to cover out of state cost of medication. Per pharmacist, able to have alternative medication for $4 out of pocket cost at the [facility] in [place]. OCCASIONAL BABYSITTER entered room and introduced self and role . Pt resting in bed with blanket over eyes. Pt reports he plans to move here more permanently and is working on switching to [employer] insurance. Per chart review, previous OCCASIONAL BABYSITTER had given him the appropriate information for out of state coverage/changing insurance, which he reports he has but has yet to call. OCCASIONAL BABYSITTER updated him that he would have to cancel his [place] coverage first/have a state issued ID here before hand. Pt reports he will look into seeing if he can have his meds filled in [place], picked up, and mailed to him. In the mean time, pt reports he is able to meet the $4 cost associated with the alternative medication. Pt reports family can transport home at discharge and is hopeful for another day and to discharge home tomorrow. OCCASIONAL BABYSITTER updated pharmacy on pt's ability to meet cost of the $4 medication. OCCASIONAL BABYSITTER emailed the admissions group to see if there was anything they could do to assist in transitioning him to [employer] coverage. Hali reports she will reach out to exchange to see if there's anything that could be done to expedite it. P: anticipate home with family when medically stable. CM team will f/u for additional prescription/ins needs. GORDON Sumner Discharge Planning/Care Management CM Discharge Assessment Start: 07/20/23 12:39 Freq: Status: Active Protocol: Document 07/20/23 12:39 SL (Rec: 07/20/23 12:45 [id number]) Discharge Planning Assessment Assigned Supervisor [employer] GORDON Jones DPOA/Assigned Designee Name Marilee, spouse Contact Information [phone] Advance Directives? No Advance Directives on File No History Provided By Patient,Medical Record Prior Living Arrangements House Household Members family Is patient alert and oriented? Yes Comment pt on disability insurance from [place] Comment Patient has left foot drop which he wears a brace for. Discharge Plan Home Transportation Arrangement Family to provide transport Referrals Initiated None needed Whiteboard Updated in Patient Room with Yes name and ext. # of Supervisor [employer]erks Review Status In Process Please Provide Date Initial DC 07/20/23 Assessment Was Performed Next Review Type Continued Stay Review
[2023-07-20 21:17] VITALS: BP 134/87; PULSE 59; RESP 15; TEMP 36.3; O2SAT 100
[2023-07-20] MEDS: diphenhydrAMINE 25 MG TABLET PO (21:50)
[2023-07-21] MEDS: HYDROMORPHONE 0.5 MG INJ IV ×4 (01:05→10:27)
[2023-07-21] MEDS: TRAZODONE 50 MG TABLET PO (01:05)
[2023-07-21 02:48] VITALS: BP 115/75; PULSE 69; RESP 16; TEMP 36.3; O2SAT 98
[2023-07-21] MEDS: LEVOTHYROXINE 25 MCG TABLET PO (05:17)
[2023-07-21] MEDS: SODIUM CHLORIDE 0.9% 1,000 ML 100 ML IV (05:17)
[2023-07-21 08:03] VITALS: BP 105/67; PULSE 69; RESP 16; TEMP 36.6; O2SAT 98
[2023-07-21 08:21] VITALS: BP 105/67
[2023-07-21] MEDS: METOPROLOL ER 25 MG TABLET PO (08:21)
[2023-07-21] MEDS: METOCLOPRAMIDE HCL 5 MG TABLET 10 MG PO (08:21)
[2023-07-21] MEDS: PANTOPRAZOLE DR 40 MG TABLET PO (08:21)
[2023-07-21] MEDS: ERYTHROMYCIN BASE 250 MG TABLET PO ×2 (08:21→11:19)
--- NOTE | 2023-07-21 09:38 | PM.DS.1 ---
History of Present Illness History of Present Illness Chief complaint: returning patient, vomiting Narrative: From night doctor: 3 y/o with of diabetic gastroparesis and recent hospitalization for nausea, vomiting and erosive gastritis with bleed, did better at house for a couple of days until last night. His sugar was low, he had an orange juice and since then he couldn't hold anything down. In the ED he appears dehydrated with Cr of 1.5. A week ago erythromycin was efficient and he was discharged on it but did not fill Rx because I have no insurance. In the ED was treated with antiemetics, IVFs, remains symptomatic, placed in observation. Additional information: He has feeling a little bit better today. Still somewhat nauseated. Able to take oral medications. He was unable to fill the erythromycin, due to financial constraints. It was prostate over 800 dollars. He denies any diarrhea. Minimal abdominal pain. No difficulty with cough or shortness a breath. Discharge Providers Provider Date of admission: 07/19/23 23:49 Discharge Date: 07/21/23 Primary care physician: Doctor Shana MD Consults: None. Discharge provider: Kiran Moore MD Summary Hospital Course Discharge Diagnosis: # Acute intractable nausea vomiting, present on admission and resolved. # type 1 diabetes without evidence of DKA, present on admission and stable. # bipolar disorder, present on admission and stable. # HTN, present on admission and stable. # hypothyroidism, present on admission and stable. Hospital Course: The patient was hydrated and treated symptomatically for nausea and abdominal pain. The patient improved to baseline. The pump was resumed and blood sugars were in good control. The patient now has coverage with melena, [place] Medicaid. The patient will be discharged with prescriptions for Reglan, Zofran, and erythromycin t.i.d. as previously planned. There should be no difficulties feeling these medications this time and hopefully this will help control these symptoms at home and prevent readmission. Status at Discharge Cognitive/behavioral status at discharge: oriented Functional status at discharge: independent ambulation Overall status at discharge: patient is back to baseline Time Spent with Patient Time spent: Greater than 30 minutes Exam Vital Signs (past 8 hours): - 07/21/23 02:48 07/21/23 08:03 07/21/23 08:21 Temperature 97.4 F L 97.8 F Pulse Rate 69 69 Respiratory Rate 16 16 Blood Pressure 115/75 105/67 105/67 Pulse Oximetry 98 98 Oxygen Flow Rate 0 Oxygen Delivery Method Room Air Oxygen Flow Rate 0 Narrative Exam Narrative: NAD, alert and oriented. Fluent speech. Lungs are clear, normal rate and effort. Heart is regular, no murmur gallop or rub. Abdomen is soft, non distended. Extremities are free of edema. Objective Labs 07/20/23 04:50 07/20/23 04:50 PFSH Medical History HTN (hypertension) Hypothyroidism Marijuana use History of MRSA infection History of pneumonia Blurry vision, bilateral Diabetic neuropathy Bipolar disorder with depression Nausea and vomiting Diabetes type 1, uncontrolled Diabetic gastroparesis Surgical History No pertinent past surgical history Family History Mother No known health problems Father No known health problems Social History household members: family Smoking Status: Former smoker alcohol intake: former Discharge Assessment & Plan Assessment and Plan Assessment: # Acute intractable nausea vomiting, present on admission and resolved. # type 1 diabetes without evidence of DKA, present on admission and stable. # bipolar disorder, present on admission and stable. # HTN, present on admission and stable. # hypothyroidism, present on admission and stable. Plan of Treatment: Symptoms improved, now stable for discharge home with symptomatic treatment at home on a trial of erythromycin t.i.d., a.c.. Discharge Plan Discharge Plan Patient Disposition: Home Provider Discharge Comment: Stable for discharge home, is stable on insulin pump and nausea is resolved. Discharge orders & Medications Prescriptions: New ondansetron 4 mg tablet,disintegrating 4 mg PO Q8H PRN (Reason: nausea and vomiting) 5 Days Qty: 20 3RF erythromycin 250 mg tablet 250 mg PO Q8H Qty: 90 1RF Continued hydroxyzine HCl 25 mg PO TID levothyroxine 25 mcg Tablet 25 mcg PO DAILY diphenhydramine HCl 25 mg Tablet 25 mg PO BEDTIME PRN (Reason: Insomnia) metoprolol tartrate 25 mg Tablet 25 mg PO DAILY omeprazole 40 mg capsule,delayed release(DR/EC) 40 mg PO DAILY 30 Days Qty: 30 0RF metoclopramide HCl [Reglan] 10 mg tablet 10 mg PO Q8HR PRN (Reason: nausea and vomiting) Qty: 40 0RF Follow up/Referrals: Shana,, [Primary Care Provider] - Diet/Activity/Treatments Diet: Carb-consistent/Diabetic Visit Report/Discharge Packet Instructions: Carbohydrate-Counting Diet, DI for Gastroparesis, The Importance of Counting Carbs If You Have Diabetes, Ondansetron, Erythromycin (By mouth) Stand Alone Forms: Patient Portal/API Discharge Data Primary Care Provider: Doctor Shana Attending Provider: Chance Lehman Admit Date/Time: 07/19/23 23:49
[2023-07-21] MEDS: METOCLOPRAMIDE 10 MG/2 ML INJ IV (11:32)
--- NOTE | 2023-07-21 12:29 | PC.NURSE ---
Patient discharged: Patient teaching done at bedside, emphasis on carb counting and how to manage DM and gastroporesis. Patient Rx's handed to patient along with patient d/c packet. All questions and concerns addressed. Patient states to be taken down to private vehicle via WC. Patient denied help collecting belongings in room. IV removed, pt jessi. well.
--- NOTE | 2023-07-21 13:30 | CM.DPNOTE ---
DC Note Patient has been discharged home with family. According to Hali Bryan in admitting, patient's [employer] BIRDIE is now showing as active, however, [employer] has not provided a policy number. Hali forwarded a temporary insurance card to this [employer], no policy number on card. Met w/patient to discuss. Provided printed paper [employer] insurance card with contact for Mickey on the back of the card. Patient has a number of prescriptions to be filled. Encouraged patient to call the pharmacy of his choice to ask if they can use his name and to confirm his active [employer] insurance rather than his policy number. Patient says he will do this. Further explained to patient that if cannot use his new [employer] coverage for Rx he will need to resort back to using the $4 Rx offered at [facility]. Plan: Discharge home w/family. Patient has historically been at risk for readmission. Patient's care and Rx are based in [place]. Lack of outpatient follow up and prescription coverage in [facility] have been known barriers. Patient now has [employer]IRDIE coverage which dates back to July 09. Patient will be responsible for getting his prescriptions filled and seeking outpatient care using his [employer] BIRDIE. GRETA
== END 2023-07-21 12:45 | disposition home or self-care (01) ==
LOC: ED 23:09 → AC 23:49
PROVIDERS: Admitting Provider Internal Medicine; Emergency Provider Emergency Medicine; Referring Provider Emergency Medicine; Visit Provider Internal Medicine
DX: E10.43 Type 1 diabetes mellitus with diabetic autonomic (poly)neuropathy (principal); K31.84 Gastroparesis; E10.40 Type 1 diabetes mellitus with diabetic neuropathy, unspecified; F31.9 Bipolar disorder, unspecified; I10 Essential (primary) hypertension; E03.9 Hypothyroidism, unspecified; Z96.41 Presence of insulin pump (external) (internal); Z79.4 Long term (current) use of insulin
CPT/HCPCS: 36415; 80048; 80053; 82009; 82805; 82962; 83690; 85025; 96361; 96374; 96375; 96376; 99284; G0378; A9270; J0780; J1170; J2060; J2765

== ENCOUNTER 2023-09-02 13:28 | Emergency (ER) | payer OTHER, MEDICAID, SELFPAY ==
[2023-09-02 13:30] VITALS: BP 148/101; PULSE 89; RESP 16; TEMP 36.3; O2SAT 98; BMI 26.5
--- NOTE | 2023-09-02 14:59 | ED_ITS ---
HPI - Neck Pain/Injury General Chief Complaint: Neck Pain/Injury Stated Complaint: neck px and numbness running down spine Time Seen by Provider: 09/02/23 13:46 Mode of arrival: Ambulatory History of Present Illness HPI Narrative: 33yoM with PMH T1DM presents for 2 days of neck pain. Reports associated numb and tingling sensation that goes up and down his spine. Related Data Home Medications Medication Instructions Recorded Confirmed hydroxyzine HCl 25 mg PO TID 02/12/20 07/20/23 diphenhydramine HCl 25 mg tablet 25 mg PO BEDTIME PRN Insomnia 07/09/23 07/20/23 levothyroxine 25 mcg tablet 25 mcg PO DAILY 07/09/23 07/20/23 metoprolol tartrate 25 mg tablet 25 mg PO DAILY 07/09/23 07/20/23 Previous Rx's Medication Instructions Recorded erythromycin 250 mg tablet 250 mg PO Q8H #90 tabs 07/21/23 metoclopramide HCl 10 mg tablet 10 mg PO Q8HR PRN nausea and 07/21/23 (Reglan) vomiting #40 tabs ondansetron 4 mg disintegrating 4 mg PO Q8H PRN nausea and 07/21/23 tablet vomiting 5 days #20 tabs methocarbamol 500 mg tablet 500 mg PO TID #30 tabs 09/02/23 methocarbamol 500 mg tablet 500 mg PO TID #30 tabs 09/02/23 Allergies Allergy/AdvReac Type Severity Reaction Status Date / Time aspirin [ASPIRIN] Allergy Unknown MAKES ME Verified 09/02/23 13:34 GO DEAF hydrocodone [HYDROCODONE] AdvReac Intermediate VOMITING Verified 09/02/23 13:34 ibuprofen [IBUPROFEN] AdvReac Intermediate HURTS Verified 09/02/23 13:34 KIDNEYS Patient History Medical History HTN (hypertension) Hypothyroidism Marijuana use History of MRSA infection History of pneumonia Blurry vision, bilateral Diabetic neuropathy Bipolar disorder with depression Nausea and vomiting Diabetes type 1, uncontrolled Diabetic gastroparesis Surgical History No pertinent past surgical history Family History Mother No known health problems Father No known health problems Social History household members: family Smoking Status: Former smoker alcohol intake: former Smoking Status: Former smoker alcohol intake frequency: other Substance Use Type: does not use Exam Initial Vital Signs Initial Vital Signs: Vital Signs Temperature 97.4 F L 09/02/23 13:30 Pulse Rate 89 09/02/23 13:30 Respiratory Rate 16 09/02/23 13:30 Blood Pressure 148/101 H 09/02/23 13:30 Pulse Oximetry 98 09/02/23 13:30 Oxygen Delivery Method Room Air 09/02/23 13:30 Const: Awake, alert, no acute distress, nontoxic appearing MSK: full ROM, no deformity Skin: Warm, Dry, intact, no rashes Neuro: AO x3, CN II-XII grossly intact, moves all extremities, no sensory deficit Course Orders Ordered: Discontinued Medications Ketorolac Tromethamine (Ketorolac 30 Mg/Ml Vial) 30 mg IM NOW ONE Stop: 09/02/23 14:59 Last Admin: 09/02/23 15:12 Dose: 30 mg Documented By: CHAVO Lidocaine (Lidocaine 5% Patch) 1 each TOP NOW ONE Stop: 09/02/23 14:59 Last Admin: 09/02/23 15:12 Dose: 1 each Documented By: CHAVO Vital Signs Vital signs: Vital Signs - 8 hr 09/02/23 13:30 Temperature 97.4 F L Pulse Rate 89 Respiratory Rate 16 Blood Pressure 148/101 H Pulse Oximetry 98 Oxygen Delivery Method Room Air MDM - Neck Pain/Injury Differential Diagnosis Differential diagnosis: Likely disc disorder of cervical region, whiplash injury to neck and closed subluxation of cervical spine Imaging Data Extremity x-ray #1: My Impression: PROCEDURE: XR CERVICAL SPINE 2V OR 3V INDICATIONS: lower neck pain TECHNIQUE: Three views of the cervical spine were acquired. COMPARISON: None. FINDINGS: Bones: No acute fractures or dislocations to the T1 level. The lateral masses of C1 appear intact on the odontoid view. No suspicious bony lesions. Soft tissues: No prevertebral soft tissue swelling. IMPRESSION: No acute displaced fracture or traumatic subluxation. Approved by: Julien Colbert M.D. on 09/02/2023 at 16:19 [facility] Narrative Medical decision making narrative: Atraumatic ?numb and tingling? sensation up and down the spine. Despite reporting numbness there was no neurologic deficit on exam, no peripheral symptoms. XR negative for acute findings. DC with muscle relaxers Discharge Plan Departure Patient Disposition: Home Clinical Impression: Neck pain Instructions: DI for Neck Pain Activity Restrictions/Additional Instructions: Your X ray today is normal. I do not know the cause of your pain. I recommend continuing 1000mg of Tylenol every 6H as needed for symptoms. A short course of muscle relaxers has also been sent to the pharmacy. Follow up with your primary care doctor. Prescriptions: New methocarbamol 500 mg tablet 500 mg PO TID Qty: 30 0RF methocarbamol 500 mg tablet 500 mg PO TID Qty: 30 0RF No Action hydroxyzine HCl 25 mg PO TID levothyroxine 25 mcg Tablet 25 mcg PO DAILY diphenhydramine HCl 25 mg Tablet 25 mg PO BEDTIME PRN (Reason: Insomnia) metoprolol tartrate 25 mg Tablet 25 mg PO DAILY ondansetron 4 mg tablet,disintegrating 4 mg PO Q8H PRN (Reason: nausea and vomiting) 5 Days Qty: 20 3RF metoclopramide HCl [Reglan] 10 mg tablet 10 mg PO Q8HR PRN (Reason: nausea and vomiting) Qty: 40 0RF erythromycin 250 mg tablet 250 mg PO Q8H Qty: 90 1RF Referrals: Miscellaneous,Doctor, MD [Primary Care Provider] - Stand Alone Forms: Patient Portal/API
[2023-09-02] MEDS: LIDOCAINE 5% PATCH 1 EACH TOP (15:12)
[2023-09-02] MEDS: KETOROLAC 30 MG/ML VIAL IM (15:12)
[2023-09-02 16:54] VITALS: PULSE 78; RESP 16; O2SAT 96
== END 2023-09-02 16:55 | disposition home or self-care (01) ==
PROVIDERS: Emergency Provider Emergency Medicine
DX: M54.2 Cervicalgia (principal)
CPT/HCPCS: 72040; 96372; 99284; J1885

== ENCOUNTER 2023-10-02 11:13 | Inpatient (IN) | payer OTHER, MEDICAID, SELFPAY ==
[2023-10-02] VITALS (83 sets, daily range): BP systolic 78–183; BP diastolic 43–99; PULSE 80–106; RESP 12–32; TEMP 36.1–37.1; O2SAT 82–100; BMI 25.8
--- NOTE | 2023-10-02 11:12 | ED_ITS ---
HPI - General Adult General Chief complaint: Nausea/Vomiting/Diarrhea Stated complaint: N/V Time Seen by Provider: 10/02/23 11:15 History of Present Illness HPI narrative: 33-year-old gentleman with a history of type 1 diabetes and gastroparesis, hypothyroidism has been warned to avoid alcohol and last night chose to have a couple of shots of rum. He began vomiting at 4:00 a.m. and is continuing to have dry heaves and significant retching. After a number of hours of retching there is some blood tinged emesis. He complains of tightness for his whole abdomen. Notes when he has episodes of gastroparesis that fluids, Compazine Ativan and Dilaudid are the most effective in getting him feeling better and discharged back to home. He states no fevers. He is passing gas. No dysuria. He does have his insulin pump in place and his continuous glucose monitor shows that his sugars have consistently been in the 150 range Related Data Home Medications Medication Instructions Recorded Confirmed hydroxyzine HCl 25 mg PO TID 02/12/20 07/20/23 diphenhydramine HCl 25 mg tablet 25 mg PO BEDTIME PRN Insomnia 07/09/23 07/20/23 levothyroxine 25 mcg tablet 25 mcg PO DAILY 07/09/23 07/20/23 metoprolol tartrate 25 mg tablet 25 mg PO DAILY 07/09/23 07/20/23 Previous Rx's Medication Instructions Recorded erythromycin 250 mg tablet 250 mg PO Q8H #90 tabs 07/21/23 metoclopramide HCl 10 mg tablet 10 mg PO Q8HR PRN nausea and 07/21/23 (Reglan) vomiting #40 tabs ondansetron 4 mg disintegrating 4 mg PO Q8H PRN nausea and 07/21/23 tablet vomiting 5 days #20 tabs methocarbamol 500 mg tablet 500 mg PO TID #30 tabs 09/02/23 methocarbamol 500 mg tablet 500 mg PO TID #30 tabs 09/02/23 Allergies Allergy/AdvReac Type Severity Reaction Status Date / Time aspirin [ASPIRIN] Allergy Unknown MAKES ME Verified 10/02/23 11:23 GO DEAF hydrocodone [HYDROCODONE] AdvReac Intermediate VOMITING Verified 10/02/23 11:23 ibuprofen [IBUPROFEN] AdvReac Intermediate HURTS Verified 10/02/23 11:23 KIDNEYS Review of Systems Review of Systems Narrative: Pertinent positive and negative findings as per HPI Patient History Medical History HTN (hypertension) Hypothyroidism Marijuana use History of MRSA infection History of pneumonia Blurry vision, bilateral Diabetic neuropathy Bipolar disorder with depression Nausea and vomiting Diabetes type 1, uncontrolled Diabetic gastroparesis Surgical History No pertinent past surgical history Family History Mother No known health problems Father No known health problems Social History household members: family Smoking Status: Former smoker alcohol intake: former Exam Initial Vital Signs Initial Vital Signs: Vital Signs Pulse Rate 98 H 10/02/23 11:15 Blood Pressure 183/99 H 10/02/23 11:15 Pulse Oximetry 100 10/02/23 11:15 General: Chronically ill-appearing, disheveled, pale actively dry heaving with minimal emesis, he is able to cooperate with exam HEENT: Moist mucous membranes, normal sclera with reactive pupils, Respiratory: Lungs are clear to auscultation, no wheezing no rales no rhonchi. Full and symmetrical air movement Cardiac: Regular rate and rhythm no murmurs no bruits Abdomen: Soft, diffusely tender no rebound or guarding Skin: Pale, decreased perfusion Neurologic: Globally weak but otherwise Grossly neurologically intact with no obvious asymmetries or abnormalities Extremities: No trauma, Psych: Cooperative, appropriate insight and affect Course Orders Ordered: ED Orders 10/02/23 11:19 urine tox [Urine Drug Screen, Rapid] Stat 10/02/23 11:35 Complete Blood Count AUTO DIFF Stat Comprehensive Metabolic Panel Stat Ethanol (ETOH) Stat Ketones (Beta-Hydroxybutyrate) Stat Lactate (Lactic Acid) Stat Lipase Stat Magnesium Stat 10/02/23 13:05 EKG-12 Lead Stat 10/02/23 13:59 VBG [Cord Venous Blood Gas] STAT 10/02/23 14:00 BMP [Basic Metabolic Panel] Stat 10/02/23 14:02 VBG [Cord Venous Blood Gas] STAT 10/02/23 14:17 Venous Blood Gas Routine Discontinued Medications Hydromorphone HCl (Hydromorphone 1 Mg Inj) 1 mg IV NOW ONE Stop: 10/02/23 11:24 Last Admin: 10/02/23 11:45 Dose: 1 mg Documented By: RANDELL Sodium Chloride (Normal Saline 0.9%) 1,000 mls @ 1,000 mls/hr IV BOLUS ONE Stop: 10/02/23 12:22 Last Infusion: 10/02/23 12:19 Dose: Infused Documented By: Admin: 10/02/23 11:50 Dose: 1,000 mls/hr Documented By: SPF Sodium Chloride (Normal Saline 0.9%) 1,000 mls @ 1,000 mls/hr IV BOLUS ONE Stop: 10/02/23 13:15 Last Infusion: 10/02/23 12:47 Dose: Infused Documented By: Admin: 10/02/23 12:19 Dose: 1,000 mls/hr Documented By: Sodium Chloride (Normal Saline 0.9%) 1,000 mls @ 1,000 mls/hr IV BOLUS ONE Stop: 10/02/23 14:04 Last Titration: 10/02/23 14:15 Dose: 0 mls/hr Lorazepam (Lorazepam 2 Mg/Ml Inj) 1 mg IV NOW ONE Stop: 10/02/23 11:24 Last Admin: 10/02/23 11:42 Dose: 1 mg Documented By: RANDELL Prochlorperazine (Prochlorperazine 10 Mg/2 Ml Vial) 10 mg IV NOW ONE Stop: 10/02/23 11:25 Last Admin: 10/02/23 11:35 Dose: 10 mg Documented By: RANDELL Vital Signs Vital signs: Vital Signs - 8 hr 10/02/23 11:15 10/02/23 11:15 10/02/23 11:18 Temperature 97.7 F Pulse Rate 98 H 103 H Respiratory Rate 16 Blood Pressure 183/99 H 183/99 H Pulse Oximetry 100 100 Oxygen Delivery Method Room Air Oxygen Flow Rate 10/02/23 11:30 10/02/23 11:35 10/02/23 11:45 Temperature Pulse Rate 101 H 95 H 95 H Respiratory Rate Blood Pressure 183/99 H Pulse Oximetry 100 93 Oxygen Delivery Method Room Air Room Air Oxygen Flow Rate 10/02/23 11:47 10/02/23 11:48 10/02/23 11:53 Temperature Pulse Rate Respiratory Rate Blood Pressure 112/67 Pulse Oximetry 82 L 93 Oxygen Delivery Method Room Air Nasal Cannula Oxygen Flow Rate 2 10/02/23 11:53 10/02/23 11:55 10/02/23 11:55 Temperature Pulse Rate 90 90 Respiratory Rate 14 18 Blood Pressure Pulse Oximetry 97 100 100 Oxygen Delivery Method Nasal Cannula Nasal Cannula Room Air Oxygen Flow Rate 2 2 10/02/23 11:56 10/02/23 11:58 10/02/23 12:00 Temperature Pulse Rate 91 H Respiratory Rate 15 Blood Pressure 101/59 L Pulse Oximetry 100 98 97 Oxygen Delivery Method Nasal Cannula Room Air Room Air Oxygen Flow Rate 1 10/02/23 12:00 10/02/23 12:00 10/02/23 12:03 Temperature Pulse Rate 91 H 92 H Respiratory Rate 17 19 Blood Pressure 101/59 L Pulse Oximetry 97 97 Oxygen Delivery Method Room Air Oxygen Flow Rate 10/02/23 12:03 10/02/23 12:05 10/02/23 12:05 Temperature Pulse Rate 92 H Respiratory Rate 15 Blood Pressure 99/55 L 96/51 L Pulse Oximetry 97 Oxygen Delivery Method Oxygen Flow Rate 10/02/23 12:10 10/02/23 12:15 10/02/23 12:15 Temperature Pulse Rate 92 H 92 H Respiratory Rate 15 15 Blood Pressure 92/54 L Pulse Oximetry 97 97 Oxygen Delivery Method Room Air Oxygen Flow Rate 10/02/23 12:20 10/02/23 12:25 10/02/23 12:30 Temperature Pulse Rate 92 H 90 89 Respiratory Rate 14 16 16 Blood Pressure Pulse Oximetry 98 98 98 Oxygen Delivery Method Oxygen Flow Rate 10/02/23 12:30 10/02/23 12:32 10/02/23 12:32 Temperature Pulse Rate 92 H Respiratory Rate 15 Blood Pressure 78/43 L 85/49 L Pulse Oximetry 98 Oxygen Delivery Method Room Air Oxygen Flow Rate 10/02/23 12:33 10/02/23 12:33 10/02/23 12:35 Temperature Pulse Rate 95 H 93 H Respiratory Rate 14 15 Blood Pressure 87/48 L Pulse Oximetry 97 98 Oxygen Delivery Method Room Air Oxygen Flow Rate 10/02/23 12:35 10/02/23 12:40 10/02/23 12:40 Temperature Pulse Rate 94 H Respiratory Rate 15 Blood Pressure 88/49 L 85/47 L Pulse Oximetry 97 Oxygen Delivery Method Oxygen Flow Rate 10/02/23 12:45 10/02/23 12:45 10/02/23 12:49 Temperature Pulse Rate 96 H 101 H Respiratory Rate 15 12 Blood Pressure 84/46 L Pulse Oximetry 97 97 Oxygen Delivery Method Oxygen Flow Rate 10/02/23 12:49 10/02/23 12:50 10/02/23 12:50 Temperature Pulse Rate 100 H Respiratory Rate 13 Blood Pressure 93/50 L 94/54 L Pulse Oximetry 97 Oxygen Delivery Method Oxygen Flow Rate 10/02/23 12:55 10/02/23 12:55 10/02/23 12:56 Temperature Pulse Rate 95 H 98 H Respiratory Rate 13 17 Blood Pressure 79/43 L Pulse Oximetry 96 97 Oxygen Delivery Method Room Air Oxygen Flow Rate 10/02/23 12:56 10/02/23 13:00 10/02/23 13:00 Temperature Pulse Rate 96 H Respiratory Rate 14 Blood Pressure 82/48 L 84/45 L Pulse Oximetry 96 Oxygen Delivery Method Oxygen Flow Rate 10/02/23 13:05 10/02/23 13:05 10/02/23 13:10 Temperature Pulse Rate 94 H 96 H Respiratory Rate 13 14 Blood Pressure 84/47 L Pulse Oximetry 96 96 Oxygen Delivery Method Oxygen Flow Rate 10/02/23 13:10 10/02/23 13:15 10/02/23 13:15 Temperature Pulse Rate 93 H Respiratory Rate 13 Blood Pressure 87/51 L 89/51 L Pulse Oximetry 96 Oxygen Delivery Method Oxygen Flow Rate 10/02/23 13:20 10/02/23 13:20 10/02/23 13:25 Temperature Pulse Rate 93 H 92 H Respiratory Rate 14 15 Blood Pressure 93/54 L Pulse Oximetry 97 97 Oxygen Delivery Method Oxygen Flow Rate 10/02/23 13:25 10/02/23 13:30 10/02/23 13:30 Temperature Pulse Rate 92 H Respiratory Rate 16 Blood Pressure 94/53 L 94/50 L Pulse Oximetry 95 Oxygen Delivery Method Oxygen Flow Rate 10/02/23 13:35 10/02/23 13:35 10/02/23 13:40 Temperature Pulse Rate 94 H Respiratory Rate 14 Blood Pressure 102/56 L 99/56 L Pulse Oximetry 97 Oxygen Delivery Method Oxygen Flow Rate 10/02/23 13:40 10/02/23 13:45 10/02/23 13:45 Temperature Pulse Rate 92 H 92 H Respiratory Rate 14 15 Blood Pressure 99/54 L Pulse Oximetry 97 96 Oxygen Delivery Method Oxygen Flow Rate 10/02/23 13:50 10/02/23 13:50 10/02/23 13:55 Temperature Pulse Rate 105 H Respiratory Rate 13 Blood Pressure 109/63 159/83 H Pulse Oximetry Oxygen Delivery Method Oxygen Flow Rate 10/02/23 13:55 10/02/23 14:00 10/02/23 14:00 Temperature Pulse Rate 106 H 104 H Respiratory Rate 21 23 Blood Pressure 151/76 H Pulse Oximetry 98 98 Oxygen Delivery Method Oxygen Flow Rate 10/02/23 14:05 10/02/23 14:05 10/02/23 14:10 Temperature Pulse Rate 100 H 96 H Respiratory Rate 14 13 Blood Pressure 136/82 Pulse Oximetry 98 98 Oxygen Delivery Method Oxygen Flow Rate 10/02/23 14:10 10/02/23 14:15 10/02/23 14:15 Temperature Pulse Rate 93 H Respiratory Rate 14 Blood Pressure 124/74 120/73 Pulse Oximetry 98 Oxygen Delivery Method Oxygen Flow Rate 10/02/23 14:20 10/02/23 14:20 10/02/23 14:25 Temperature Pulse Rate 92 H 92 H Respiratory Rate 14 18 Blood Pressure 117/74 Pulse Oximetry 98 97 Oxygen Delivery Method Oxygen Flow Rate 10/02/23 14:25 Temperature Pulse Rate Respiratory Rate Blood Pressure 117/74 Pulse Oximetry Oxygen Delivery Method Oxygen Flow Rate Medical Decision Making Lab Data 10/02/23 11:35 10/02/23 14:05 Labs: Lab Results 10/02/23 10/02/23 10/02/23 Range/Units 11:35 13:34 14:05 WBC 13.2 H (4.5-11.0) X10^3/uL RBC 4.88 (4.5-5.9) X10^6/uL Hgb 11.7 L (13.5-17.5) g/dL Hct 36.3 L (41-53) % MCV 74.4 L (80-100) fL MCH 23.9 L (26-34) PG MCHC 32.1 (30-36) % RDW 18.3 H (11.6-14.8) % Plt Count 342 (150-400) X10^3/uL Neut % (Auto) 87.5 H (50-75) % Lymph % (Auto) 8.8 L (25-40) % [place] % (Auto) 3.5 (3-14) % Eos % (Auto) 0.0 L (2-4) % Baso % (Auto) 0.2 (0-2) % Neut # (Auto) 20134 H (3618-9738) /uL Lymph # (Auto) 1200 (8167-7905) /uL [place] # (Auto) 500 (0-900) /uL Eos # (Auto) 0 (0-450) /uL Baso # (Auto) 0 (0-100) /uL VBG pH (7.33-7.43) VBG pCO2 (45-50) mmHg VBG pO2 (35-45) mmHg VBG HCO3 (24-28) mmol/L VBG Total CO2 (24-29) mmol/L VBG O2 Saturation (70-75) % VBG Base Excess (0-4) mmol/L Sodium 136 L 141 (137-145) mmol/L Potassium 4.3 4.4 (3.4-5.1) mmol/L Chloride 98 108 H (98-107) mmol/L Carbon Dioxide 16 L 17 L (22-32) mmol/L BUN 23 H 22 H (9-20) mg/dL Creatinine 1.42 H 1.24 (0.66-1.25) mg/dL Estimated GFR > 60 > 60 (>60) mL/min BUN/Creatinine Ratio 16.2 17.7 (6-22) Glucose 215 H 144 H (70-100) mg/dL Lactate 3.3 H 0.8 (0.7-2.1) mmol/L Calcium 9.9 7.9 L (8.4-10.2) mg/dL Magnesium 2.3 (1.6-2.3) mg/dL Total Bilirubin 0.9 (0.2-1.3) mg/dL AST 38 (17-59) IU/L ALT 38 (<50) IU/L Alkaline Phosphatase 100 (38-126) U/L Total Protein 8.5 H (6.3-8.2) g/dL Albumin 4.9 (3.5-5.0) g/dL Globulin 3.6 (1.7-4.1) g/dL Albumin/Globulin Ratio 1.4 (1.0-2.8) Lipase 37 (23-300) U/L Ethyl Alcohol < 10 ( - 10) mg/dL Ketones 4.26 H (<0.27) mmol/L 10/02/23 Range/Units 14:17 WBC (4.5-11.0) X10^3/uL RBC (4.5-5.9) X10^6/uL Hgb (13.5-17.5) g/dL Hct (41-53) % MCV (80-100) fL MCH (26-34) PG MCHC (30-36) % RDW (11.6-14.8) % Plt Count (150-400) X10^3/uL Neut % (Auto) (50-75) % Lymph % (Auto) (25-40) % [place] % (Auto) (3-14) % Eos % (Auto) (2-4) % Baso % (Auto) (0-2) % Neut # (Auto) (8925-3207) /uL Lymph # (Auto) (1394-8873) /uL [place] # (Auto) (0-900) /uL Eos # (Auto) (0-450) /uL Baso # (Auto) (0-100) /uL VBG pH 7.34 (7.33-7.43) VBG pCO2 37.1 L (45-50) mmHg VBG pO2 56 H (35-45) mmHg VBG HCO3 20 L (24-28) mmol/L VBG Total CO2 20 L (24-29) mmol/L VBG O2 Saturation 87 H (70-75) % VBG Base Excess -5.5 L (0-4) mmol/L Sodium (137-145) mmol/L Potassium (3.4-5.1) mmol/L Chloride (98-107) mmol/L Carbon Dioxide (22-32) mmol/L BUN (9-20) mg/dL Creatinine (0.66-1.25) mg/dL Estimated GFR (>60) mL/min BUN/Creatinine Ratio (6-22) Glucose (70-100) mg/dL Lactate (0.7-2.1) mmol/L Calcium (8.4-10.2) mg/dL Magnesium (1.6-2.3) mg/dL Total Bilirubin (0.2-1.3) mg/dL AST (17-59) IU/L ALT (<50) IU/L Alkaline Phosphatase (38-126) U/L Total Protein (6.3-8.2) g/dL Albumin (3.5-5.0) g/dL Globulin (1.7-4.1) g/dL Albumin/Globulin Ratio (1.0-2.8) Lipase (23-300) U/L Ethyl Alcohol ( - 10) mg/dL Ketones (<0.27) mmol/L Point of Care Testing Glucose POC 151 Point of care testing: Point of Care Testing Glucose POC 151 MDM Narrative Medical decision making narrative: CC: Persistent vomiting Complicating co-morbidities: History of gastroparesis, type 1 diabetes with blood sugars consistently in the 150 range over the course of the evening he has a Dexcom in place, history of marijuana use but states he has not been smoking recently, history of bipolar Data collected from: patient Social determinants of health that may influence the patients condition: Type 1 diabetic, gastroparesis Medical records reviewed: Hospital H& P from July 19 with admission for similar complaints is reviewed Differential considered: DKA, Diabetic gastroparesis, cannabinoid hyperemesis syndrome, gastroenteritis, bowel obstruction, other infection Exam documented above, pertinent findings include: He appears pale, slightly dehydrated gentleman uncomfortable and is actively retching. He does not have an acute surgical abdomen Lab Test results independently reviewed as above. Pertinent findings: CBC shows a white count at 13.2 with slight left shift 87.5. Mildly anemic at 11.7 and 36.3 which is significantly improved in comparison to July when he was 9.1 and 30.6. Platelets are appropriate Chemistries show bumped his creatinine from 1.1-1.4. No other significant electrolyte abnormalities Lactic acid is elevated at 3.3 Patient is positive for ketones today Anion gap is 22 After 3 L of fluid resuscitation: Independently reviewed EKG: Sinus rhythm at a rate of 95. Leftward axis. No acute ischemic changes Anion gap 16 VBG shows a ph of 7.33 K remains appropriate has his continuous insulin pump basal set at Treatments: Fluids, Dilaudid, Ativan, Compazine Additional fluids and re-evaluation Re-evaluations: Patient is actually quite sensitive to both narcotic and benzodiazepine suggesting he does not have much tolerance. Blood pressure did drop after medications given however it has no longer vomiting and he is sleeping comfortably. Discussion: 33-year-old type 1 diabetic with a history of gastroparesis he has been vomiting does have his insulin pump in place that delivers 33 units of basal insulin daily and he gets 1 unit per 15 carbs when he is eating. Blood sugars are consistently in the 150 range with his see GI monitor. Vomiting for the last couple of days. Initially thought that this was simply gastroparesis with vomiting and it turns out it is gastroparesis complicated by diabetic ketoacidosis. Initial ketones are at 24. After fluid resuscitation his pH is up to 7.3, ketones are down to 16 but patient remains quite nauseated and unable to eat. Care is reviewed with Dr. Faye who admit the patient. In the emergency department we have left him with his basal rate pump which is seeming to work appropriately. Once on the floor will likely need to transition to higher insulin rate with glucose added in his IV fluid. Potassium remains appropriate at 4.4. Discharge Plan Departure Patient Disposition: Admitted As Inpatient Clinical Impression: Diabetic gastroparesis DKA (diabetic ketoacidoses) Qualifiers: Diabetes mellitus type: type 1 Diabetes mellitus complication detail: without coma Qualified Code(s): E10.10 - Type 1 diabetes mellitus with ketoacidosis without coma Prescriptions: No Action hydroxyzine HCl 25 mg PO TID levothyroxine 25 mcg Tablet 25 mcg PO DAILY diphenhydramine HCl 25 mg Tablet 25 mg PO BEDTIME PRN (Reason: Insomnia) metoprolol tartrate 25 mg Tablet 25 mg PO DAILY ondansetron 4 mg tablet,disintegrating 4 mg PO Q8H PRN (Reason: nausea and vomiting) 5 Days Qty: 20 3RF metoclopramide HCl [Reglan] 10 mg tablet 10 mg PO Q8HR PRN (Reason: nausea and vomiting) Qty: 40 0RF erythromycin 250 mg tablet 250 mg PO Q8H Qty: 90 1RF methocarbamol 500 mg tablet 500 mg PO TID Qty: 30 0RF methocarbamol 500 mg tablet 500 mg PO TID Qty: 30 0RF Referrals: Miscellaneous,Doctor, MD [Primary Care Provider] - Admit Date/Time: 10/02/23 14:53 Admit Provider: Onesimo Faye V
[2023-10-02] MEDS: PROCHLORPERAZINE 10 MG/2 ML VIAL IV (11:35)
[2023-10-02] MEDS: LORazepam 2 MG/ML INJ 1 MG IV (11:42)
[2023-10-02] MEDS: HYDROMORPHONE 1 MG INJ IV (11:45)
[2023-10-02 11:50] LABS: Add Manual Diff / Slide Review NO; Basophils Absolute Auto 0 /uL (0-100); Basophils Percent Auto 0.2 % (0-2); Eosinophils Absolute Auto 0 /uL (0-450); Hematocrit 36.3 % (41-53); Hemoglobin 11.7 g/dL (13.5-17.5); Lymphocytes Absolute Auto 1200 /uL (1100-4500); Lymphocytes Percent Auto 8.8 % (25-40); Mean Corpuscular HGB Conc 32.1 % (30-36); Mean Corpuscular Hemoglobin 23.9 PG (26-34); Mean Corpuscular Volume 74.4 fL (80-100); Monocytes Absolute Auto 500 /uL (0-900); Monocytes Percent Auto 3.5 % (3-14); Neutrophils Absolute Auto 11500 /uL (1500-7000); Neutrophils Percent Auto 87.5 % (50-75); Platelet Count 342 X10^3/uL (150-400); Red Blood Cell Count 4.88 X10^6/uL (4.5-5.9); Red Cell Distribution Width 18.3 % (11.6-14.8); White Blood Cell Count 13.2 X10^3/uL (4.5-11.0)
[2023-10-02] MEDS: SODIUM CHLORIDE 0.9% 1,000 ML 1000 ML IV ×3 (11:50→13:11)
[2023-10-02 12:04] LABS: Lactate (Lactic Acid) 3.3 mmol/L (0.7-2.1)
[2023-10-02 12:05] LABS: Alanine Aminotransferase 38 IU/L (<50); Albumin 4.9 g/dL (3.5-5.0); Albumin Globulin Ratio 1.4 (1.0-2.8); Alkaline Phosphatase 100 U/L (38-126); Aspartate Aminotransferase 38 IU/L (17-59); BUN Creatinine Ratio 16.2 (6-22); Bilirubin Total 0.9 mg/dL (0.2-1.3); Blood Urea Nitrogen 23 mg/dL (9-20); Calcium 9.9 mg/dL (8.4-10.2); Carbon Dioxide 16 mmol/L (22-32); Chloride 98 mmol/L (98-107); Estimated Glomerular Filt Rate > 60 mL/min (>60); Globulin 3.6 g/dL (1.7-4.1); Glucose 215 mg/dL (70-100); HEMOLYSIS < 15 (0-50); Lipase 37 U/L (23-300); Magnesium 2.3 mg/dL (1.6-2.3); Potassium 4.3 mmol/L (3.4-5.1); Sodium 136 mmol/L (137-145); Total Protein 8.5 g/dL (6.3-8.2)
[2023-10-02 12:27] LABS: Ethanol (ETOH) < 10 mg/dL
--- NOTE | 2023-10-02 12:30 | PC.SBAR ---
SITUATION: Pt given medications for nausea, pain, fluids. Hypotension BACKGROUND: Pt had previously recieved narcotics, benzodiazapine, compazine ASSESSMENT: Pt GCS 14, lethargic and responsive to voice, currently denies having pain post medications. RECOMMENDATION: Pt placed in trandelenburg position with 2nd liter iv fluids infusing @ bolus. RESPONSE: Provider notified of persistent hypotension, continue to monitor BP and MAP >60.
[2023-10-02 12:54] LABS: Ketones (Beta-Hydroxybutyrate) 4.26 mmol/L (<0.27)
--- NOTE | 2023-10-02 13:09 | EKG_ITS ---
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
[2023-10-02 13:23] LABS: Reflexed Lactate in 2 Hours Y
[2023-10-02 13:51] LABS: Lactate 2HR (Lactic Acid Rflx) 0.8 mmol/L (0.7-2.1)
[2023-10-02 14:20] LABS: Base Excess VBG -5.5 mmol/L (0-4); HCO3 VBG 20 mmol/L (24-28); Oxygen Saturation VBG 87 % (70-75); PCO2 VBG 37.1 mmHg (45-50); PO2 VBG 56 mmHg (35-45); Total CO2 VBG 20 mmol/L (24-29); pH VBG 7.34 (7.33-7.43)
[2023-10-02 14:29] LABS: BUN Creatinine Ratio 17.7 (6-22); Blood Urea Nitrogen 22 mg/dL (9-20); Calcium 7.9 mg/dL (8.4-10.2); Carbon Dioxide 17 mmol/L (22-32); Chloride 108 mmol/L (98-107); Estimated Glomerular Filt Rate > 60 mL/min (>60); Glucose 144 mg/dL (70-100); HEMOLYSIS 41 (0-50); Potassium 4.4 mmol/L (3.4-5.1); Sodium 141 mmol/L (137-145)
--- NOTE | 2023-10-02 14:35 | PC.NURSE ---
Bladder scan performed with reading over 900cc. Pt stood at bedside to use urinal with 650cc output. Bladder scan post void reading 383cc. Pt reports no urinary urgency and feels like he completely emptied his bladder.
[2023-10-02 15:08] LABS: UR Morphine/Opiate cutoff 300 Negative (Negative); Ur Creatinine Normal (Normal); Ur Specific Gravity Normal (Normal); Urine Amphetamines Negative (Negative); Urine Barbiturates Negative (Negative); Urine Benzodiazepines Negative (Negative); Urine Cocaine Negative (Negative); Urine MDMA Negative (Negative); Urine Methadone Negative (Negative); Urine Methamphetamines Negative (Negative); Urine Oxycodone Negative (Negative); Urine Phencyclidine Negative (Negative); Urine Tetrahydrocannabinol Positive (Negative); Urine Tricyclic Antidepressant Negative (Negative); Urine pH Normal (Normal)
--- NOTE | 2023-10-02 15:16 | PC.ADMIT ---
[id number] Admission Note: Admitted from ED via stretcher, stand-pivot to bed. A/O x4, fatigued. Chills, shaking. VSS on RA, awaiting orders from hospitalist. The patient,Valentin Noble,33 y/o, was given written information regarding hospital policies, unit procedures and contact persons. Patient's smoking status: Former smoker. Vital Signs - 8 hr 10/02/23 11:15 10/02/23 11:15 10/02/23 11:18 Temperature 97.7 F Pulse Rate 98 H 103 H Respiratory Rate 16 Blood Pressure 183/99 H 183/99 H Pulse Oximetry 100 100 Oxygen Delivery Method Room Air Oxygen Flow Rate 10/02/23 11:30 10/02/23 11:35 10/02/23 11:45 Temperature Pulse Rate 101 H 95 H 95 H Respiratory Rate Blood Pressure 183/99 H Pulse Oximetry 100 93 Oxygen Delivery Method Room Air Room Air Oxygen Flow Rate 10/02/23 11:47 10/02/23 11:48 10/02/23 11:53 Temperature Pulse Rate Respiratory Rate Blood Pressure 112/67 Pulse Oximetry 82 L 93 Oxygen Delivery Method Room Air Nasal Cannula Oxygen Flow Rate 2 10/02/23 11:53 10/02/23 11:55 10/02/23 11:55 Temperature Pulse Rate 90 90 Respiratory Rate 14 18 Blood Pressure Pulse Oximetry 97 100 100 Oxygen Delivery Method Nasal Cannula Nasal Cannula Room Air Oxygen Flow Rate 2 2 10/02/23 11:56 10/02/23 11:58 10/02/23 12:00 Temperature Pulse Rate 91 H Respiratory Rate 15 Blood Pressure 101/59 L Pulse Oximetry 100 98 97 Oxygen Delivery Method Nasal Cannula Room Air Room Air Oxygen Flow Rate 1 10/02/23 12:00 10/02/23 12:00 10/02/23 12:03 Temperature Pulse Rate 91 H 92 H Respiratory Rate 17 19 Blood Pressure 101/59 L Pulse Oximetry 97 97 Oxygen Delivery Method Room Air Oxygen Flow Rate 10/02/23 12:03 10/02/23 12:05 10/02/23 12:05 Temperature Pulse Rate 92 H Respiratory Rate 15 Blood Pressure 99/55 L 96/51 L Pulse Oximetry 97 Oxygen Delivery Method Oxygen Flow Rate 10/02/23 12:10 10/02/23 12:15 10/02/23 12:15 Temperature Pulse Rate 92 H 92 H Respiratory Rate 15 15 Blood Pressure 92/54 L Pulse Oximetry 97 97 Oxygen Delivery Method Room Air Oxygen Flow Rate 10/02/23 12:20 10/02/23 12:25 10/02/23 12:30 Temperature Pulse Rate 92 H 90 89 Respiratory Rate 14 16 16 Blood Pressure Pulse Oximetry 98 98 98 Oxygen Delivery Method Oxygen Flow Rate 10/02/23 12:30 10/02/23 12:32 10/02/23 12:32 Temperature Pulse Rate 92 H Respiratory Rate 15 Blood Pressure 78/43 L 85/49 L Pulse Oximetry 98 Oxygen Delivery Method Room Air Oxygen Flow Rate 10/02/23 12:33 10/02/23 12:33 10/02/23 12:35 Temperature Pulse Rate 95 H 93 H Respiratory Rate 14 15 Blood Pressure 87/48 L Pulse Oximetry 97 98 Oxygen Delivery Method Room Air Oxygen Flow Rate 10/02/23 12:35 10/02/23 12:40 10/02/23 12:40 Temperature Pulse Rate 94 H Respiratory Rate 15 Blood Pressure 88/49 L 85/47 L Pulse Oximetry 97 Oxygen Delivery Method Oxygen Flow Rate 10/02/23 12:45 10/02/23 12:45 10/02/23 12:49 Temperature Pulse Rate 96 H 101 H Respiratory Rate 15 12 Blood Pressure 84/46 L Pulse Oximetry 97 97 Oxygen Delivery Method Oxygen Flow Rate 10/02/23 12:49 10/02/23 12:50 10/02/23 12:50 Temperature Pulse Rate 100 H Respiratory Rate 13 Blood Pressure 93/50 L 94/54 L Pulse Oximetry 97 Oxygen Delivery Method Oxygen Flow Rate 10/02/23 12:55 10/02/23 12:55 10/02/23 12:56 Temperature Pulse Rate 95 H 98 H Respiratory Rate 13 17 Blood Pressure 79/43 L Pulse Oximetry 96 97 Oxygen Delivery Method Room Air Oxygen Flow Rate 10/02/23 12:56 10/02/23 13:00 10/02/23 13:00 Temperature Pulse Rate 96 H Respiratory Rate 14 Blood Pressure 82/48 L 84/45 L Pulse Oximetry 96 Oxygen Delivery Method Oxygen Flow Rate 10/02/23 13:05 10/02/23 13:05 10/02/23 13:10 Temperature Pulse Rate 94 H 96 H Respiratory Rate 13 14 Blood Pressure 84/47 L Pulse Oximetry 96 96 Oxygen Delivery Method Oxygen Flow Rate 10/02/23 13:10 10/02/23 13:15 10/02/23 13:15 Temperature Pulse Rate 93 H Respiratory Rate 13 Blood Pressure 87/51 L 89/51 L Pulse Oximetry 96 Oxygen Delivery Method Oxygen Flow Rate 10/02/23 13:20 10/02/23 13:20 10/02/23 13:25 Temperature Pulse Rate 93 H 92 H Respiratory Rate 14 15 Blood Pressure 93/54 L Pulse Oximetry 97 97 Oxygen Delivery Method Oxygen Flow Rate 10/02/23 13:25 10/02/23 13:30 10/02/23 13:30 Temperature Pulse Rate 92 H Respiratory Rate 16 Blood Pressure 94/53 L 94/50 L Pulse Oximetry 95 Oxygen Delivery Method Oxygen Flow Rate 10/02/23 13:35 10/02/23 13:35 10/02/23 13:40 Temperature Pulse Rate 94 H Respiratory Rate 14 Blood Pressure 102/56 L 99/56 L Pulse Oximetry 97 Oxygen Delivery Method Oxygen Flow Rate 10/02/23 13:40 10/02/23 13:45 10/02/23 13:45 Temperature Pulse Rate 92 H 92 H Respiratory Rate 14 15 Blood Pressure 99/54 L Pulse Oximetry 97 96 Oxygen Delivery Method Oxygen Flow Rate 10/02/23 13:50 10/02/23 13:50 10/02/23 13:55 Temperature Pulse Rate 105 H Respiratory Rate 13 Blood Pressure 109/63 159/83 H Pulse Oximetry Oxygen Delivery Method Oxygen Flow Rate 10/02/23 13:55 10/02/23 14:00 10/02/23 14:00 Temperature Pulse Rate 106 H 104 H Respiratory Rate 21 23 Blood Pressure 151/76 H Pulse Oximetry 98 98 Oxygen Delivery Method Oxygen Flow Rate 10/02/23 14:05 10/02/23 14:05 10/02/23 14:10 Temperature Pulse Rate 100 H 96 H Respiratory Rate 14 13 Blood Pressure 136/82 Pulse Oximetry 98 98 Oxygen Delivery Method Oxygen Flow Rate 10/02/23 14:10 10/02/23 14:15 10/02/23 14:15 Temperature Pulse Rate 93 H Respiratory Rate 14 Blood Pressure 124/74 120/73 Pulse Oximetry 98 Oxygen Delivery Method Oxygen Flow Rate 10/02/23 14:20 10/02/23 14:20 10/02/23 14:25 Temperature Pulse Rate 92 H 92 H Respiratory Rate 14 18 Blood Pressure 117/74 Pulse Oximetry 98 97 Oxygen Delivery Method Oxygen Flow Rate 10/02/23 14:25 10/02/23 14:30 10/02/23 14:30 Temperature Pulse Rate 93 H Respiratory Rate 14 Blood Pressure 117/74 120/75 Pulse Oximetry 97 Oxygen Delivery Method Oxygen Flow Rate 10/02/23 14:45 10/02/23 14:50 10/02/23 14:50 Temperature Pulse Rate 100 H 97 H Respiratory Rate 18 13 Blood Pressure 143/89 H Pulse Oximetry 98 98 Oxygen Delivery Method Room Air Oxygen Flow Rate 10/02/23 14:55 10/02/23 14:55 10/02/23 15:00 Temperature Pulse Rate 94 H 93 H Respiratory Rate 19 16 Blood Pressure 129/83 Pulse Oximetry 98 97 Oxygen Delivery Method Room Air Oxygen Flow Rate 10/02/23 15:00 Temperature Pulse Rate Respiratory Rate Blood Pressure 129/87 Pulse Oximetry Oxygen Delivery Method Oxygen Flow Rate
--- NOTE | 2023-10-02 15:21 | PM.HP.1 ---
History of Present Illness History of Present Illness Date Patient Seen: 10/02/23 Time Patient Seen: 15:30 Chief complaint: N/V Narrative: 33-year-old man with type 1 diabetes mellitus and gastric paresis presents with intractable nausea, vomiting and diarrhea. He states he had drunk a couple of shots of rum yesterday, and smoked marijuana, with last use 2 days ago, and started vomiting at 4:00 a.m. this morning, presented to the emergency department with persistent dry heaves and retching with blood tinged emesis. He reports abdominal pain diffusely and was given IV Dilaudid in the emergency department, along with 3 L of IV fluids, and fail to resolve presenting diabetic ketoacidosis. His initial anion gap was 24, improving to 16. His pH was 7.30. He is admitted for further management and evaluation. [facility] Medical History HTN (hypertension) Hypothyroidism Marijuana use History of MRSA infection History of pneumonia Blurry vision, bilateral Diabetic neuropathy Bipolar disorder with depression Nausea and vomiting Diabetes type 1, uncontrolled Diabetic gastroparesis Surgical History No pertinent past surgical history Family History Mother No known health problems Father No known health problems Social History household members: family Smoking Status: Former smoker alcohol intake: former Meds Home Medications and Allergies Home Medications Medication Instructions Recorded Confirmed Type hydroxyzine HCl 25 mg PO TID 02/12/20 07/20/23 History diphenhydramine HCl 25 mg tablet 25 mg PO BEDTIME PRN Insomnia 07/09/23 07/20/23 History levothyroxine 25 mcg tablet 25 mcg PO DAILY 07/09/23 07/20/23 History metoprolol tartrate 25 mg tablet 25 mg PO DAILY 07/09/23 07/20/23 History erythromycin 250 mg tablet 250 mg PO Q8H #90 tabs 07/21/23 Rx metoclopramide HCl 10 mg tablet 10 mg PO Q8HR PRN nausea and 07/21/23 Rx (Reglan) vomiting #40 tabs ondansetron 4 mg disintegrating 4 mg PO Q8H PRN nausea and 07/21/23 Rx tablet vomiting 5 days #20 tabs methocarbamol 500 mg tablet 500 mg PO TID #30 tabs 09/02/23 Rx methocarbamol 500 mg tablet 500 mg PO TID #30 tabs 09/02/23 Rx Allergies Allergy/AdvReac Type Severity Reaction Status Date / Time aspirin [ASPIRIN] Allergy Unknown MAKES ME Verified 10/02/23 11:23 GO DEAF hydrocodone [HYDROCODONE] AdvReac Intermediate VOMITING Verified 10/02/23 11:23 ibuprofen [IBUPROFEN] AdvReac Intermediate HURTS Verified 10/02/23 11:23 KIDNEYS Review of Systems Review of Systems ROS: Yes All systems reviewed with the patient and are negative except as otherwise documented Exam Vital Signs (past 8 hours): - 10/02/23 11:15 10/02/23 11:15 10/02/23 11:18 Temperature 97.7 F Pulse Rate 98 H 103 H Respiratory Rate 16 Blood Pressure 183/99 H 183/99 H Pulse Oximetry 100 100 Oxygen Delivery Method Room Air Oxygen Flow Rate 10/02/23 11:30 10/02/23 11:35 10/02/23 11:45 Temperature Pulse Rate 101 H 95 H 95 H Respiratory Rate Blood Pressure 183/99 H Pulse Oximetry 100 93 Oxygen Delivery Method Room Air Room Air Oxygen Flow Rate 10/02/23 11:47 10/02/23 11:48 10/02/23 11:53 Temperature Pulse Rate Respiratory Rate Blood Pressure 112/67 Pulse Oximetry 82 L 93 Oxygen Delivery Method Room Air Nasal Cannula Oxygen Flow Rate 2 10/02/23 11:53 10/02/23 11:55 10/02/23 11:55 Temperature Pulse Rate 90 90 Respiratory Rate 14 18 Blood Pressure Pulse Oximetry 97 100 100 Oxygen Delivery Method Nasal Cannula Nasal Cannula Room Air Oxygen Flow Rate 2 2 10/02/23 11:56 10/02/23 11:58 10/02/23 12:00 Temperature Pulse Rate 91 H Respiratory Rate 15 Blood Pressure 101/59 L Pulse Oximetry 100 98 97 Oxygen Delivery Method Nasal Cannula Room Air Room Air Oxygen Flow Rate 1 10/02/23 12:00 10/02/23 12:00 10/02/23 12:03 Temperature Pulse Rate 91 H 92 H Respiratory Rate 17 19 Blood Pressure 101/59 L Pulse Oximetry 97 97 Oxygen Delivery Method Room Air Oxygen Flow Rate 10/02/23 12:03 10/02/23 12:05 10/02/23 12:05 Temperature Pulse Rate 92 H Respiratory Rate 15 Blood Pressure 99/55 L 96/51 L Pulse Oximetry 97 Oxygen Delivery Method Oxygen Flow Rate 10/02/23 12:10 10/02/23 12:15 10/02/23 12:15 Temperature Pulse Rate 92 H 92 H Respiratory Rate 15 15 Blood Pressure 92/54 L Pulse Oximetry 97 97 Oxygen Delivery Method Room Air Oxygen Flow Rate 10/02/23 12:20 10/02/23 12:25 10/02/23 12:30 Temperature Pulse Rate 92 H 90 89 Respiratory Rate 14 16 16 Blood Pressure Pulse Oximetry 98 98 98 Oxygen Delivery Method Oxygen Flow Rate 10/02/23 12:30 10/02/23 12:32 10/02/23 12:32 Temperature Pulse Rate 92 H Respiratory Rate 15 Blood Pressure 78/43 L 85/49 L Pulse Oximetry 98 Oxygen Delivery Method Room Air Oxygen Flow Rate 10/02/23 12:33 10/02/23 12:33 10/02/23 12:35 Temperature Pulse Rate 95 H 93 H Respiratory Rate 14 15 Blood Pressure 87/48 L Pulse Oximetry 97 98 Oxygen Delivery Method Room Air Oxygen Flow Rate 10/02/23 12:35 10/02/23 12:40 10/02/23 12:40 Temperature Pulse Rate 94 H Respiratory Rate 15 Blood Pressure 88/49 L 85/47 L Pulse Oximetry 97 Oxygen Delivery Method Oxygen Flow Rate 10/02/23 12:45 10/02/23 12:45 10/02/23 12:49 Temperature Pulse Rate 96 H 101 H Respiratory Rate 15 12 Blood Pressure 84/46 L Pulse Oximetry 97 97 Oxygen Delivery Method Oxygen Flow Rate 10/02/23 12:49 10/02/23 12:50 10/02/23 12:50 Temperature Pulse Rate 100 H Respiratory Rate 13 Blood Pressure 93/50 L 94/54 L Pulse Oximetry 97 Oxygen Delivery Method Oxygen Flow Rate 10/02/23 12:55 10/02/23 12:55 10/02/23 12:56 Temperature Pulse Rate 95 H 98 H Respiratory Rate 13 17 Blood Pressure 79/43 L Pulse Oximetry 96 97 Oxygen Delivery Method Room Air Oxygen Flow Rate 10/02/23 12:56 10/02/23 13:00 10/02/23 13:00 Temperature Pulse Rate 96 H Respiratory Rate 14 Blood Pressure 82/48 L 84/45 L Pulse Oximetry 96 Oxygen Delivery Method Oxygen Flow Rate 10/02/23 13:05 10/02/23 13:05 10/02/23 13:10 Temperature Pulse Rate 94 H 96 H Respiratory Rate 13 14 Blood Pressure 84/47 L Pulse Oximetry 96 96 Oxygen Delivery Method Oxygen Flow Rate 10/02/23 13:10 10/02/23 13:15 10/02/23 13:15 Temperature Pulse Rate 93 H Respiratory Rate 13 Blood Pressure 87/51 L 89/51 L Pulse Oximetry 96 Oxygen Delivery Method Oxygen Flow Rate 10/02/23 13:20 10/02/23 13:20 10/02/23 13:25 Temperature Pulse Rate 93 H 92 H Respiratory Rate 14 15 Blood Pressure 93/54 L Pulse Oximetry 97 97 Oxygen Delivery Method Oxygen Flow Rate 10/02/23 13:25 10/02/23 13:30 10/02/23 13:30 Temperature Pulse Rate 92 H Respiratory Rate 16 Blood Pressure 94/53 L 94/50 L Pulse Oximetry 95 Oxygen Delivery Method Oxygen Flow Rate 10/02/23 13:35 10/02/23 13:35 10/02/23 13:40 Temperature Pulse Rate 94 H Respiratory Rate 14 Blood Pressure 102/56 L 99/56 L Pulse Oximetry 97 Oxygen Delivery Method Oxygen Flow Rate 10/02/23 13:40 10/02/23 13:45 10/02/23 13:45 Temperature Pulse Rate 92 H 92 H Respiratory Rate 14 15 Blood Pressure 99/54 L Pulse Oximetry 97 96 Oxygen Delivery Method Oxygen Flow Rate 10/02/23 13:50 10/02/23 13:50 10/02/23 13:55 Temperature Pulse Rate 105 H Respiratory Rate 13 Blood Pressure 109/63 159/83 H Pulse Oximetry Oxygen Delivery Method Oxygen Flow Rate 10/02/23 13:55 10/02/23 14:00 10/02/23 14:00 Temperature Pulse Rate 106 H 104 H Respiratory Rate 21 23 Blood Pressure 151/76 H Pulse Oximetry 98 98 Oxygen Delivery Method Oxygen Flow Rate 10/02/23 14:05 10/02/23 14:05 10/02/23 14:10 Temperature Pulse Rate 100 H 96 H Respiratory Rate 14 13 Blood Pressure 136/82 Pulse Oximetry 98 98 Oxygen Delivery Method Oxygen Flow Rate 10/02/23 14:10 10/02/23 14:15 10/02/23 14:15 Temperature Pulse Rate 93 H Respiratory Rate 14 Blood Pressure 124/74 120/73 Pulse Oximetry 98 Oxygen Delivery Method Oxygen Flow Rate 10/02/23 14:20 10/02/23 14:20 10/02/23 14:25 Temperature Pulse Rate 92 H 92 H Respiratory Rate 14 18 Blood Pressure 117/74 Pulse Oximetry 98 97 Oxygen Delivery Method Oxygen Flow Rate 10/02/23 14:25 10/02/23 14:30 10/02/23 14:30 Temperature Pulse Rate 93 H Respiratory Rate 14 Blood Pressure 117/74 120/75 Pulse Oximetry 97 Oxygen Delivery Method Oxygen Flow Rate 10/02/23 14:45 10/02/23 14:50 10/02/23 14:50 Temperature Pulse Rate 100 H 97 H Respiratory Rate 18 13 Blood Pressure 143/89 H Pulse Oximetry 98 98 Oxygen Delivery Method Room Air Oxygen Flow Rate 10/02/23 14:55 10/02/23 14:55 10/02/23 15:00 Temperature Pulse Rate 94 H 93 H Respiratory Rate 19 16 Blood Pressure 129/83 Pulse Oximetry 98 97 Oxygen Delivery Method Room Air Oxygen Flow Rate 10/02/23 15:00 Temperature Pulse Rate Respiratory Rate Blood Pressure 129/87 Pulse Oximetry Oxygen Delivery Method Oxygen Flow Rate Oxygen Delivery Method Room Air Oxygen Flow Rate 2 Narrative Exam Narrative: GENERAL: This is a pale, sleepy but arousable male patient, pleasant but with limited engagement as he keeps falling back to sleep during the interview, otherwise in no apparent distress. EYES: Pupils equal round and reactive. Extraocular motions intact. No scleral icterus. No injection or drainage. ENT: Mucous membranes pink and moist. NECK: Trachea midline. No JVD, bruits or lymphadenopathy. Supple, nontender, no meningeal signs. CARDIOVASCULAR: Regular rate and rhythm without murmurs, gallops, or rubs. RESPIRATORY: Clear to auscultation. GASTROINTESTINAL: Abdomen soft, diffusely tender, distend, rebound or rigidity. BACK: Nontender without deformity or crepitance. No flank tenderness. NEUROLOGIC: Alert, oriented, speech fluent, full upper and lower motor strength, no focal deficits evident. DERMATOLOGIC: No rashes or skin lesions. Objective ECG Impression: Normal sinus rhythm at 95bpm, no ischemic changes. Labs 10/02/23 11:35 10/02/23 14:05 Labs: Laboratory Results - last 24 hr 10/02/23 10/02/23 10/02/23 11:35 13:34 14:05 WBC 13.2 H RBC 4.88 Hgb 11.7 L Hct 36.3 L MCV 74.4 L MCH 23.9 L MCHC 32.1 RDW 18.3 H Plt Count 342 Neut % (Auto) 87.5 H Lymph % (Auto) 8.8 L Villalba % (Auto) 3.5 Eos % (Auto) 0.0 L Baso % (Auto) 0.2 Neut # (Auto) 91219 H Lymph # (Auto) 1200 [place]alba # (Auto) 500 Eos # (Auto) 0 Baso # (Auto) 0 VBG pH VBG pCO2 VBG pO2 VBG HCO3 VBG Total CO2 VBG O2 Saturation VBG Base Excess Sodium 136 L 141 Potassium 4.3 4.4 Chloride 98 108 H Carbon Dioxide 16 L 17 L BUN 23 H 22 H Creatinine 1.42 H 1.24 Estimated GFR > 60 > 60 BUN/Creatinine Ratio 16.2 17.7 Glucose 215 H 144 H Lactate 3.3 H 0.8 Calcium 9.9 7.9 L Magnesium 2.3 Total Bilirubin 0.9 AST 38 ALT 38 Alkaline Phosphatase 100 Total Protein 8.5 H Albumin 4.9 Globulin 3.6 Albumin/Globulin Ratio 1.4 Lipase 37 U Opiates 300ng/mL cut Ur Oxycodone Screen Urine Methadone Screen Ur Barbiturates Screen U Tricyclic Antidepress Ur Phencyclidine Scrn Ur Amphetamines Screen U Methamphetamines Scrn Ur MDMA Scrn (Ecstasy) U Benzodiazepines Scrn Urine Cocaine Screen U Marijuana (THC) Screen Urine pH Urine Specific [place] Ethyl Alcohol < 10 Ketones 4.26 H Ur Creatinine 10/02/23 10/02/23 14:17 14:40 WBC RBC Hgb Hct MCV MCH MCHC RDW Plt Count Neut % (Auto) Lymph % (Auto) Villal[place] % (Auto) Eos % (Auto) Baso % (Auto) Neut # (Auto) Lymph # (Auto) [place] # (Auto) Eos # (Auto) Baso # (Auto) VBG pH 7.34 VBG pCO2 37.1 L VBG pO2 56 H VBG HCO3 20 L VBG Total CO2 20 L VBG O2 Saturation 87 H VBG Base Excess -5.5 L Sodium Potassium Chloride Carbon Dioxide BUN Creatinine Estimated GFR BUN/Creatinine Ratio Glucose Lactate Calcium Magnesium Total Bilirubin AST ALT Alkaline Phosphatase Total Protein Albumin Globulin Albumin/Globulin Ratio Lipase U Opiates 300ng/mL cut Negative Ur Oxycodone Screen Negative Urine Methadone Screen Negative Ur Barbiturates Screen Negative U Tricyclic Antidepress Negative Ur Phencyclidine Scrn Negative Ur Amphetamines Screen Negative U Methamphetamines Scrn Negative Ur MDMA Scrn (Ecstasy) Negative U Benzodiazepines Scrn Negative Urine Cocaine Screen Negative U Marijuana (THC) Screen Positive H Urine pH Normal Urine Specific [place] Normal Ethyl Alcohol Ketones Ur Creatinine Normal Assessment & Plan Assessment & Plan narrative: 1. Diabetic ketoacidosis. Admit to ICU, and Mr. insulin infusion per protocol, and follow electrolytes closely with repletion as necessary. Likely precipitated by intractable nausea and vomiting, possibly related to cannabinoid use in the setting of gastroparesis. 2. Type 1 diabetes mellitus. Discontinue home insulin pump and institute insulin infusion protocol as noted above. 3. Diabetic gastroparesis. 4. Cannabinoid use. 5. Bipolar disorder. 6. Hypothyroidism. Continue routine medications. Plan: -admit to ICU inpatient status -insulin infusion per protocol -monitor serial electrolytes and replete as appropriate -pain control -antiemetics -cannabanoid use discouraged given risk of hyperemesis syndrome The patient is admitted inpatient status as he will likely require at least 2 midnights of inpatient level care. Time-Based Coding :: [TOTAL MINUTES] spent with patient and on the chart (including review of chart, obtaining history, exam, reviewing outside data, placing orders, documenting exam and treatment plan, and counseling patient) on [DATE]. Quality VTE Deep Vein Thrombosis/Pulmonary Embolism Present on Admission: No MIPS - Admit I confirm the patient?s Advance Care Plan is present, Code status is documented, Surrogate decision maker is in patient?s record [If Yes, STOP here]: Yes MIPS - Meds 'Current medications' to include all prescriptions, [id number] products, herbals, cannabis/cannabidiol products, and vitamin/mineral/dietary (nutritional) supplements. I have utilized all available resources to obtain, update, or review the patient?s current medications. [If Yes, STOP here]: Yes PROFEE Charge Codes Initial inpatient/observation care: 36538
[2023-10-02] MEDS: INSULIN DRIP PREMIX 100 UNIT/100 ML PLAST..BAG IV (16:31)
[2023-10-02] MEDS: METOCLOPRAMIDE HCL 5 MG TABLET 10 MG PO (16:36)
[2023-10-02] MEDS: HYDROMORPHONE 0.5 MG INJ IV ×2 (16:36→22:03)
[2023-10-02] MEDS: diphenhydrAMINE 25 MG TABLET PO (16:37)
[2023-10-02 16:51] LABS: BUN Creatinine Ratio 17.9 (6-22); Blood Urea Nitrogen 21 mg/dL (9-20); Carbon Dioxide 16 mmol/L (22-32); Chloride 108 mmol/L (98-107); Estimated Glomerular Filt Rate > 60 mL/min (>60); Glucose 133 mg/dL (70-100); Potassium 4.8 mmol/L (3.4-5.1); Sodium 137 mmol/L (137-145)
[2023-10-02] MEDS: DEXTROSE 10 % IN WATER 1,000 ML 82 ML IV (16:57)
[2023-10-02] MEDS: DEXTROSE 5%-0.45% NS 1,000 ML 123 ML IV ×2 (17:15→18:54)
[2023-10-02 17:39] LABS: MRSA (Nasal) PCR NOT DETECTED (Not Detect)
[2023-10-02] MEDS: SODIUM CHLORIDE 0.9% 500 ML 1000 ML IV ×2 (18:20→19:12)
[2023-10-02 20:25] LABS: BUN Creatinine Ratio 17.9 (6-22); Blood Urea Nitrogen 20 mg/dL (9-20); Calcium 7.5 mg/dL (8.4-10.2); Carbon Dioxide 22 mmol/L (22-32); Chloride 109 mmol/L (98-107); Estimated Glomerular Filt Rate > 60 mL/min (>60); Glucose 73 mg/dL (70-100); HEMOLYSIS < 15 (0-50); Sodium 138 mmol/L (137-145)
[2023-10-02] MEDS: hydrOXYzine HCL 25 MG TABLET PO (21:53)
[2023-10-02] MEDS: POTASSIUM CHLORIDE IN WATER 10 MEQ/100 ML PIGGYBACK 100 MEQ IV ×2 (21:53→23:59)
[2023-10-02] MEDS: ONDANSETRON 4 MG/2 ML INJ IV (22:19)
[2023-10-03] VITALS (67 sets, daily range): BP systolic 101–157; BP diastolic 58–90; PULSE 75–98; RESP 7–26; TEMP 36.2–37.4; O2SAT 96–99
[2023-10-03 01:04] LABS: BUN Creatinine Ratio 18.1 (6-22); Blood Urea Nitrogen 17 mg/dL (9-20); Calcium 7.3 mg/dL (8.4-10.2); Carbon Dioxide 20 mmol/L (22-32); Chloride 105 mmol/L (98-107); Estimated Glomerular Filt Rate > 60 mL/min (>60); Glucose 226 mg/dL (70-100); HEMOLYSIS 20 (0-50); Potassium 4.1 mmol/L (3.4-5.1); Sodium 132 mmol/L (137-145)
[2023-10-03] MEDS: DEXTROSE 50 % IN WATER 25 GM/50 ML SYRINGE IV ×2 (05:14→06:25)
[2023-10-03 05:24] LABS: Blood Urea Nitrogen 15 mg/dL (9-20); Calcium 7.8 mg/dL (8.4-10.2); Carbon Dioxide 21 mmol/L (22-32); Chloride 110 mmol/L (98-107); Estimated Glomerular Filt Rate > 60 mL/min (>60); Glucose 57 mg/dL (70-100); Potassium 3.8 mmol/L (3.4-5.1); Sodium 137 mmol/L (137-145)
[2023-10-03 05:25] LABS: HEMOLYSIS 51 (0-50)
[2023-10-03] MEDS: HYDROMORPHONE 0.5 MG INJ IV ×3 (05:50→20:37)
[2023-10-03] MEDS: POTASSIUM CHLORIDE IN WATER 10 MEQ/100 ML PIGGYBACK 100 MEQ IV ×4 (06:13→09:56)
[2023-10-03] MEDS: DEXTROSE 10 % IN WATER 1,000 ML 82 ML IV (06:52)
--- NOTE | 2023-10-03 06:55 | PC.NURSE ---
hourly shift manager rn note pt A&Ox4, MORRISSEY, c/o abd pain and nausea overnight, medicated, CBGs ranged from 26-250s, D50W IV given x2 with improved BGs, pt responsive during episodes of low CBGs, K+ bolus' given per protocol, IV fluids and insulin gtt changed per protocol see MARIA EUGENIA ERICKSON periph IV site positional and required many interventions overnight to work, VSS, pt voiding at bedside in urinal, bed alarm on
[2023-10-03] MEDS: ONDANSETRON 4 MG/2 ML INJ IV ×2 (08:34→17:50)
[2023-10-03 08:42] LABS: Add Manual Diff / Slide Review NO; Basophils Absolute Auto 100 /uL (0-100); Basophils Percent Auto 0.5 % (0-2); Eosinophils Absolute Auto 0 /uL (0-450); Eosinophils Percent Auto 0.5 % (2-4); Hemoglobin 9.5 g/dL (13.5-17.5); Lymphocytes Absolute Auto 1500 /uL (1100-4500); Lymphocytes Percent Auto 13.4 % (25-40); Mean Corpuscular HGB Conc 32.6 % (30-36); Mean Corpuscular Hemoglobin 24.3 PG (26-34); Mean Corpuscular Volume 74.4 fL (80-100); Monocytes Absolute Auto 900 /uL (0-900); Monocytes Percent Auto 8.4 % (3-14); Neutrophils Absolute Auto 8500 /uL (1500-7000); Neutrophils Percent Auto 77.2 % (50-75); Platelet Count 237 X10^3/uL (150-400); Red Cell Distribution Width 17.6 % (11.6-14.8)
[2023-10-03 08:53] LABS: BUN Creatinine Ratio 12.4 (6-22); Blood Urea Nitrogen 12 mg/dL (9-20); Calcium 7.6 mg/dL (8.4-10.2); Carbon Dioxide 21 mmol/L (22-32); Chloride 105 mmol/L (98-107); Estimated Glomerular Filt Rate > 60 mL/min (>60); Glucose 110 mg/dL (70-100); HEMOLYSIS < 15 (0-50); Potassium 3.9 mmol/L (3.4-5.1); Sodium 134 mmol/L (137-145)
[2023-10-03] MEDS: METOCLOPRAMIDE 10 MG/2 ML INJ IV ×2 (08:58→17:51)
--- NOTE | 2023-10-03 10:47 | PC.NURSE ---
D10 IV fluid stop time inaccurate in [facility], fluid was stopped prior to assuming care of patient at roughly 1040.
--- NOTE | 2023-10-03 11:38 | PM.PN.1 ---
Subjective Subjective Date Patient Seen: 10/03/23 Time Patient Seen: 08:10 Interval history: 33-year-old man with type 1 diabetes mellitus and gastric paresis presents with intractable nausea, vomiting and diarrhea. He states he had drunk a couple of shots of rum yesterday, and smoked marijuana, with last use 2 days ago, and started vomiting at 4:00 a.m. this morning, presented to the emergency department with persistent dry heaves and retching with blood tinged emesis. He reports abdominal pain diffusely and was given IV Dilaudid in the emergency department, along with 3 L of IV fluids, and fail to resolve presenting diabetic ketoacidosis. His initial anion gap was 24, improving to 16. His pH was 7.30. He is admitted for further management and evaluation. Interval history: The patient has persistent nausea and vomiting and has not eaten yet this morning. He had resolution of DKA overnight with glucose falling to 26. His insulin infusion was stopped. His insulin pump has been restarted. Exam Vital Signs (past 8 hours): - 10/03/23 03:45 10/03/23 04:00 10/03/23 04:00 Temperature 97.1 F L Pulse Rate 77 79 Respiratory Rate 14 14 Blood Pressure 108/73 Pulse Oximetry 97 97 Oxygen Delivery Method 10/03/23 04:15 10/03/23 04:30 10/03/23 04:45 Temperature Pulse Rate 75 75 76 Respiratory Rate 17 16 15 Blood Pressure Pulse Oximetry 97 97 97 Oxygen Delivery Method 10/03/23 05:00 10/03/23 05:00 10/03/23 05:15 Temperature Pulse Rate 78 80 Respiratory Rate 11 L 17 Blood Pressure 115/80 Pulse Oximetry 97 97 Oxygen Delivery Method 10/03/23 05:30 10/03/23 05:45 10/03/23 06:00 Temperature Pulse Rate 83 98 H Respiratory Rate 17 25 H Blood Pressure 146/90 H Pulse Oximetry 98 98 Oxygen Delivery Method 10/03/23 06:00 10/03/23 06:15 10/03/23 07:00 Temperature Pulse Rate 90 85 Respiratory Rate 19 20 Blood Pressure 101/65 Pulse Oximetry 98 99 Oxygen Delivery Method 10/03/23 07:00 10/03/23 07:15 10/03/23 07:30 Temperature Pulse Rate 80 78 80 Respiratory Rate 16 19 16 Blood Pressure Pulse Oximetry 98 97 98 Oxygen Delivery Method 10/03/23 07:45 10/03/23 08:00 10/03/23 08:00 Temperature Pulse Rate 79 80 Respiratory Rate 20 15 Blood Pressure 108/72 Pulse Oximetry 98 98 Oxygen Delivery Method 10/03/23 08:00 10/03/23 08:15 10/03/23 08:30 Temperature 98.4 F Pulse Rate 85 96 H Respiratory Rate 11 L 19 Blood Pressure Pulse Oximetry 99 Oxygen Delivery Method 10/03/23 08:45 10/03/23 09:00 10/03/23 09:00 Temperature Pulse Rate 94 H 95 H Respiratory Rate 19 13 Blood Pressure 157/80 H Pulse Oximetry Oxygen Delivery Method 10/03/23 09:15 10/03/23 09:30 10/03/23 09:45 Temperature Pulse Rate 93 H 90 87 Respiratory Rate 24 22 21 Blood Pressure Pulse Oximetry Oxygen Delivery Method 10/03/23 10:00 10/03/23 10:00 10/03/23 10:01 Temperature 98.1 F Pulse Rate 87 Respiratory Rate 20 Blood Pressure Pulse Oximetry Oxygen Delivery Method Room Air 10/03/23 10:15 10/03/23 10:30 10/03/23 10:32 Temperature Pulse Rate 86 87 Respiratory Rate 21 18 Blood Pressure 101/58 L Pulse Oximetry Oxygen Delivery Method 10/03/23 10:32 10/03/23 10:45 10/03/23 11:00 Temperature Pulse Rate 90 86 86 Respiratory Rate 18 20 19 Blood Pressure Pulse Oximetry Oxygen Delivery Method 10/03/23 11:15 10/03/23 11:30 Temperature Pulse Rate 85 86 Respiratory Rate 20 19 Blood Pressure Pulse Oximetry Oxygen Delivery Method Oxygen Delivery Method Room Air Oxygen Flow Rate 0 Narrative Exam Narrative: GENERAL: Sleepy but arousable, appears fatigued, in no apparent distress. EYES: Pupils equal round and reactive. Extraocular motions intact. No scleral icterus. No injection or drainage. ENT: Mucous membranes pink and moist. NECK: Supple, nontender, no meningeal signs. CARDIOVASCULAR: Regular rate and rhythm without murmurs, gallops, or rubs. RESPIRATORY: Clear to auscultation. GASTROINTESTINAL: Abdomen soft, nontender, nondistended. NEUROLOGIC: Alert, oriented, speech fluent, full upper and lower motor strength, no focal deficits evident. DERMATOLOGIC: No rashes or skin lesions. Objective Labs 10/03/23 08:20 10/03/23 08:20 Labs: Laboratory Results - last 24 hr 10/02/23 10/02/23 10/02/23 11:35 13:34 14:05 WBC 13.2 H RBC 4.88 Hgb 11.7 L Hct 36.3 L MCV 74.4 L MCH 23.9 L MCHC 32.1 RDW 18.3 H Plt Count 342 Neut % (Auto) 87.5 H Lymph % (Auto) 8.8 L [place] % (Auto) 3.5 Eos % (Auto) 0.0 L Baso % (Auto) 0.2 Neut # (Auto) 42533 H Lymph # (Auto) 1200 [place] # (Auto) 500 Eos # (Auto) 0 Baso # (Auto) 0 VBG pH VBG pCO2 VBG pO2 VBG HCO3 VBG Total CO2 VBG O2 Saturation VBG Base Excess Sodium 136 L 141 Potassium 4.3 4.4 Chloride 98 108 H Carbon Dioxide 16 L 17 L BUN 23 H 22 H Creatinine 1.42 H 1.24 Estimated GFR > 60 > 60 BUN/Creatinine Ratio 16.2 17.7 Glucose 215 H 144 H Lactate 3.3 H 0.8 Calcium 9.9 7.9 L Magnesium 2.3 Total Bilirubin 0.9 AST 38 ALT 38 Alkaline Phosphatase 100 Total Protein 8.5 H Albumin 4.9 Globulin 3.6 Albumin/Globulin Ratio 1.4 Lipase 37 Nasal Screen MRSA (PCR) U Opiates 300ng/mL cut Ur Oxycodone Screen Urine Methadone Screen Ur Barbiturates Screen U Tricyclic Antidepress Ur Phencyclidine Scrn Ur Amphetamines Screen U Methamphetamines Scrn Ur MDMA Scrn (Ecstasy) U Benzodiazepines Scrn Urine Cocaine Screen U Marijuana (THC) Screen Urine pH Urine Specific [place] Ethyl Alcohol < 10 Ketones 4.26 H Ur Creatinine 10/02/23 10/02/23 10/02/23 14:17 14:40 15:50 WBC RBC Hgb Hct MCV MCH MCHC RDW Plt Count Neut % (Auto) Lymph % (Auto) [place] % (Auto) Eos % (Auto) Baso % (Auto) Neut # (Auto) Lymph # (Auto) [place] # (Auto) Eos # (Auto) Baso # (Auto) VBG pH 7.34 VBG pCO2 37.1 L VBG pO2 56 H VBG HCO3 20 L VBG Total CO2 20 L VBG O2 Saturation 87 H VBG Base Excess -5.5 L Sodium Potassium Chloride Carbon Dioxide BUN Creatinine Estimated GFR BUN/Creatinine Ratio Glucose Lactate Calcium Magnesium Total Bilirubin AST ALT Alkaline Phosphatase Total Protein Albumin Globulin Albumin/Globulin Ratio Lipase Nasal Screen MRSA (PCR) Not detected U Opiates 300ng/mL cut Negative Ur Oxycodone Screen Negative Urine Methadone Screen Negative Ur Barbiturates Screen Negative U Tricyclic Antidepress Negative Ur Phencyclidine Scrn Negative Ur Amphetamines Screen Negative U Methamphetamines Scrn Negative Ur MDMA Scrn (Ecstasy) Negative U Benzodiazepines Scrn Negative Urine Cocaine Screen Negative U Marijuana (THC) Screen Positive H Urine pH Normal Urine Specific [place] Normal Ethyl Alcohol Ketones Ur Creatinine Normal 10/02/23 10/02/23 10/03/23 16:20 20:03 00:29 WBC RBC Hgb Hct MCV MCH MCHC RDW Plt Count Neut % (Auto) Lymph % (Auto) [place] % (Auto) Eos % (Auto) Baso % (Auto) Neut # (Auto) Lymph # (Auto) [place] # (Auto) Eos # (Auto) Baso # (Auto) VBG pH VBG pCO2 VBG pO2 VBG HCO3 VBG Total CO2 VBG O2 Saturation VBG Base Excess Sodium 137 138 132 L Potassium 4.8 4.0 4.1 Chloride 108 H 109 H 105 Carbon Dioxide 16 L 22 20 L BUN 21 H 20 17 Creatinine 1.17 1.12 0.94 Estimated GFR > 60 > 60 > 60 BUN/Creatinine Ratio 17.9 17.9 18.1 Glucose 133 H 73 226 H D Lactate Calcium 8.0 L 7.5 L 7.3 L Magnesium Total Bilirubin AST ALT Alkaline Phosphatase Total Protein Albumin Globulin Albumin/Globulin Ratio Lipase Nasal Screen MRSA (PCR) U Opiates 300ng/mL cut Ur Oxycodone Screen Urine Methadone Screen Ur Barbiturates Screen U Tricyclic Antidepress Ur Phencyclidine Scrn Ur Amphetamines Screen U Methamphetamines Scrn Ur MDMA Scrn (Ecstasy) U Benzodiazepines Scrn Urine Cocaine Screen U Marijuana (THC) Screen Urine pH Urine Specific [place] Ethyl Alcohol Ketones Ur Creatinine 10/03/23 10/03/23 05:01 08:20 WBC 11.0 RBC 3.90 L Hgb 9.5 L Hct 29.0 L MCV 74.4 L MCH 24.3 L MCHC 32.6 RDW 17.6 H Plt Count 237 Neut % (Auto) 77.2 H Lymph % (Auto) 13.4 L [place] % (Auto) 8.4 Eos % (Auto) 0.5 L Baso % (Auto) 0.5 Neut # (Auto) 8500 H Lymph # (Auto) 1500 [place] # (Auto) 900 Eos # (Auto) 0 Baso # (Auto) 100 VBG pH VBG pCO2 VBG pO2 VBG HCO3 VBG Total CO2 VBG O2 Saturation VBG Base Excess Sodium 137 134 L Potassium 3.8 3.9 Chloride 110 H 105 Carbon Dioxide 21 L 21 L BUN 15 12 Creatinine 0.94 0.97 Estimated GFR > 60 > 60 BUN/Creatinine Ratio 16.0 12.4 Glucose 57 L D 110 H Lactate Calcium 7.8 L 7.6 L Magnesium Total Bilirubin AST ALT Alkaline Phosphatase Total Protein Albumin Globulin Albumin/Globulin Ratio Lipase Nasal Screen MRSA (PCR) U Opiates 300ng/mL cut Ur Oxycodone Screen Urine Methadone Screen Ur Barbiturates Screen U Tricyclic Antidepress Ur Phencyclidine Scrn Ur Amphetamines Screen U Methamphetamines Scrn Ur MDMA Scrn (Ecstasy) U Benzodiazepines Scrn Urine Cocaine Screen U Marijuana (THC) Screen Urine pH Urine Specific [place] Ethyl Alcohol Ketones Ur Creatinine PFSH Medical History HTN (hypertension) Hypothyroidism Marijuana use History of MRSA infection History of pneumonia Blurry vision, bilateral Diabetic neuropathy Bipolar disorder with depression Nausea and vomiting Diabetes type 1, uncontrolled Diabetic gastroparesis Surgical History No pertinent past surgical history Family History Mother No known health problems Father No known health problems Social History household members: family Smoking Status: Former smoker alcohol intake: current Assessment & Plan Assessment & Plan narrative: 1. Diabetic ketoacidosis due to flare of gastric paresis versus cannabinoid hyperemesis syndrome, resolved. Transfer from ICU to floor status. Continue home insulin pump. 2. Type 1 diabetes mellitus. Resume home insulin pump monitor blood sugars. 3. Diabetic gastroparesis. Treat with antiemetics and resume diet when able. 4. Cannabinoid use. Advised discontinuation. 5. Bipolar disorder. 6. Hypothyroidism. Continue routine medications. Plan: -floor status -insulin pump -antiemetics -IV fluids -cannabanoid use discouraged given risk of hyperemesis syndrome The patient is admitted inpatient status as he will likely require at least 2 midnights of inpatient level care. Time-Based Coding :: [TOTAL MINUTES] spent with patient and on the chart (including review of chart, obtaining history, exam, reviewing outside data, placing orders, documenting exam and treatment plan, and counseling patient) on [DATE]. Quality VTE Deep Vein Thrombosis/Pulmonary Embolism Present on Admission: No IH PROFEE Charge codes Subsequent inpatient/observation care: [id number]
--- NOTE | 2023-10-03 11:58 | CM.DANOTE ---
Initial DCP Assessment Visit Note Reviewed EMR and team rounds for status updates. Went to meet with pt at bedside, however he was found to be sleeping. Pt is well known to this staff for multiple ED presentations and hospital admissions for diabetes type I related complications. Pt resides independently with his mother and grandmother in their own home in [place]. Pt's family will plan to transport him back home once he's medically stable and cleared for home d/c. Payor: Mickey PCP: not identified Pt is a 33 year-old M with a hx of type I diabetes and gastroparesis who presented to the ED yesterday afternoon with intractable vomiting and abdominal tightness/pain. He has been aware not to drink alcohol due to hx of diabetes issues following previous admissions after drinking alcohol, however chose to drink 2-shots of rum the day before. Within hours he was vomiting and experiencing dry heaves. In the ED he was found to have ketoacidosis and a gastroparesis flare-up. He was then admitted for further insulin tx, IV fluids, pain control, and monitoring of his electrolytes. He has his pump on and expresses understanding of pump management, was restarted on his pump again this morning after improvement with symptoms over the course of the night. DCP will continue to monitor and assist with any developing assistance/resource needs prior to her discharge. D/c anticipated for Wednesday, 10/03. Discharge Planning/Care Management Advanced directive, confirm from FAMILY Start: 10/02/23 16:25 Freq: Q24H Status: Active Protocol: Document 10/02/23 16:25 CW (Rec: 10/02/23 17:32 CW [id number]) Advance Directive, confirm on record Time 17:32 Person contacted pt Copy received No CM Discharge Assessment Start: 10/03/23 11:55 Freq: Status: Active Protocol: Document 10/03/23 11:55 DPL (Rec: 10/03/23 11:57 DPL [id number]) Discharge Planning Assessment Assigned Superintendent Operations Division GORDON Bolaños Advance Directives? No Advance Directives on File No History Provided By Medical Record Expected Length of Stay 2 Has Patient been admitted in last 30 No days? Prior Living Arrangements House Household Members family Type of transporation used prior to Drives own vehicle admit Independent with ADL's Yes Is patient alert and oriented? Yes Caregiver for Another No Comment No identified home d/c needs at this time. Barriers to Discharge No Discharge Plan Home Transportation Arrangement Family to provide transport. Referrals Initiated None needed Review Status In Process Please Provide Date Initial DC 10/03/23 Assessment Was Performed
[2023-10-03] MEDS: DEXTROSE 5%-0.45% NS 1,000 ML 123 ML IV (12:04)
[2023-10-03] MEDS: MAG HYDROX/ALUMINUM/SIMETH SUS 20 ML, LIDOCAINE VISCOUS 2% 15 ML PO (15:30)
[2023-10-03] MEDS: INSULIN PUMP SUBCUT (17:53)
[2023-10-03] MEDS: hydrOXYzine HCL 25 MG TABLET PO (20:38)
[2023-10-03] MEDS: diphenhydrAMINE 25 MG TABLET PO (20:38)
[2023-10-04] VITALS (75 sets, daily range): BP systolic 124–169; BP diastolic 66–102; PULSE 77–114; RESP 7–33; TEMP 36.4–37.4; O2SAT 95–99
[2023-10-04] MEDS: DEXTROSE 5%-0.45% NS 1,000 ML 123 ML IV (00:44)
[2023-10-04] MEDS: HYDROMORPHONE 0.5 MG INJ IV ×5 (00:44→22:17)
[2023-10-04] MEDS: ONDANSETRON 4 MG/2 ML INJ IV (00:56)
[2023-10-04] MEDS: PANTOPRAZOLE 40 MG VIAL IV ×2 (01:39→22:13)
[2023-10-04] MEDS: DEXTROSE 5%-0.45% NS 1,000 ML 84 ML IV (01:39)
[2023-10-04] MEDS: LEVOTHYROXINE 25 MCG TABLET PO (06:04)
--- NOTE | 2023-10-04 07:03 | PC.NURSE ---
0610--pt's fingerstick 243; pt just notified RN that his insulin pump ran out at 0130 and he does not have a refill cartridge, nor anyone that can bring him one; he is requesting sliding scale coverage and long acting insulin; Dr Balderas notified and medium dose sliding scale ordered
[2023-10-04] MEDS: METOCLOPRAMIDE 10 MG/2 ML INJ IV ×2 (08:39→17:27)
[2023-10-04] MEDS: INSULIN LISPRO 100 UNIT/ML 3ML VIAL SUBCUT ×2 (08:46→12:19)
[2023-10-04] MEDS: SODIUM CHLORIDE 0.9% 1,000 ML 125 ML IV ×2 (11:31→19:00)
[2023-10-04] MEDS: INSULIN GLARGINE 100 UNIT/ML 3ML PEN 15 UNIT SUBCUT (11:32)
[2023-10-04 12:36] LABS: Hematocrit 31.6 % (41-53); Hemoglobin 10.3 g/dL (13.5-17.5); Mean Corpuscular HGB Conc 32.4 % (30-36); Mean Corpuscular Hemoglobin 24.4 PG (26-34); Mean Corpuscular Volume 75.2 fL (80-100); Platelet Count 247 X10^3/uL (150-400); Red Blood Cell Count 4.21 X10^6/uL (4.5-5.9); Red Cell Distribution Width 17.5 % (11.6-14.8); White Blood Cell Count 10.9 X10^3/uL (4.5-11.0)
[2023-10-04 12:45] LABS: BUN Creatinine Ratio 5.7 (6-22); Blood Urea Nitrogen 6 mg/dL (9-20); Calcium 8.5 mg/dL (8.4-10.2); Carbon Dioxide 26 mmol/L (22-32); Chloride 103 mmol/L (98-107); Estimated Glomerular Filt Rate > 60 mL/min (>60); Glucose 165 mg/dL (70-100); HEMOLYSIS < 15 (0-50); Potassium 3.8 mmol/L (3.4-5.1); Sodium 134 mmol/L (137-145)
--- NOTE | 2023-10-04 14:33 | PM.PN.1 ---
Subjective Subjective Interval history: Summary: 33-year-old man with type 1 diabetes mellitus and gastric paresis presents with intractable nausea, vomiting and diarrhea. He states he had drunk a couple of shots of rum yesterday, and smoked marijuana, with last use 2 days ago, and started vomiting at 4:00 a.m. this morning, presented to the emergency department with persistent dry heaves and retching with blood tinged emesis. He reports abdominal pain diffusely and was given IV Dilaudid in the emergency department, along with 3 L of IV fluids, and fail to resolve presenting diabetic ketoacidosis. His initial anion gap was 24, improving to 16. His pH was 7.30. He is admitted for further management and evaluation. S: Still feels nauseated today and not able to take an oral diet. DKA has resolved. Blood sugars are in better control. Exam Vital Signs (past 8 hours): - 10/04/23 07:00 10/04/23 07:15 10/04/23 07:30 Temperature Pulse Rate 86 86 85 Respiratory Rate 17 16 9 L Blood Pressure Pulse Oximetry Oxygen Delivery Method 10/04/23 07:45 10/04/23 07:57 10/04/23 07:57 Temperature Pulse Rate 83 87 Respiratory Rate 14 11 L Blood Pressure 141/76 H Pulse Oximetry 97 Oxygen Delivery Method 10/04/23 08:00 10/04/23 08:00 10/04/23 08:30 Temperature 98 F Pulse Rate 82 Respiratory Rate 15 Blood Pressure Pulse Oximetry Oxygen Delivery Method Room Air Oxygen Delivery Method Room Air Oxygen Flow Rate 0 Narrative Exam Narrative: NAD, alert and oriented. Fluent speech. Lungs are clear, normal rate and effort. Heart is regular, no murmur gallop or rub. Abdomen is soft, non distended. Extremities are free of edema. Objective Labs 10/04/23 12:05 10/04/23 12:05 Labs: Laboratory Results - last 24 hr 10/04/23 12:05 WBC 10.9 RBC 4.21 L Hgb 10.3 L Hct 31.6 L MCV 75.2 L MCH 24.4 L MCHC 32.4 RDW 17.5 H Plt Count 247 Sodium 134 L Potassium 3.8 Chloride 103 Carbon Dioxide 26 BUN 6 L Creatinine 1.06 Estimated GFR > 60 BUN/Creatinine Ratio 5.7 L Glucose 165 H Calcium 8.5 PFSH Medical History HTN (hypertension) Hypothyroidism Marijuana use History of MRSA infection History of pneumonia Blurry vision, bilateral Diabetic neuropathy Bipolar disorder with depression Nausea and vomiting Diabetes type 1, uncontrolled Diabetic gastroparesis Surgical History No pertinent past surgical history Family History Mother No known health problems Father No known health problems Social History household members: family Smoking Status: Former smoker alcohol intake: current Assessment & Plan Assessment & Plan narrative: [address] [address] Progress Note Patient: Valentin Noble MR#: [id number] : 1990 Acct:[id number] Age/Sex: 33 / M Admit Date: 10/02/23 Provider: Onesimo Faye MD Subjective Subjective Date Patient Seen: 10/03/23 Time Patient Seen: 08:10 Interval history: 33-year-old man with type 1 diabetes mellitus and gastric paresis presents with intractable nausea, vomiting and diarrhea. He states he had drunk a couple of shots of rum yesterday, and smoked marijuana, with last use 2 days ago, and started vomiting at 4:00 a.m. this morning, presented to the emergency department with persistent dry heaves and retching with blood tinged emesis. He reports abdominal pain diffusely and was given IV Dilaudid in the emergency department, along with 3 L of IV fluids, and fail to resolve presenting diabetic ketoacidosis. His initial anion gap was 24, improving to 16. His pH was 7.30. He is admitted for further management and evaluation. Interval history: The patient has persistent nausea and vomiting and has not eaten yet this morning. He had resolution of DKA overnight with glucose falling to 26. His insulin infusion was stopped. His insulin pump has been restarted. Exam Vital Signs (past 8 hours): - 10/02/2402:45 10/03/2403:00 10/03/2403:00 Temperature 97.1 F L Pulse Rate 77 79 Respiratory Rate 14 14 Blood Pressure 108/73 Pulse Oximetry 97 97 Oxygen Delivery Method 10/03/2403:15 10/03/2403:30 10/03/2403:45 Temperature Pulse Rate 75 75 76 Respiratory Rate 17 16 15 Blood Pressure Pulse Oximetry 97 97 97 Oxygen Delivery Method 10/02/2404:00 10/02/2404:00 10/02/2404:15 Temperature Pulse Rate 78 80 Respiratory Rate 11 L 17 Blood Pressure 115/80 Pulse Oximetry 97 97 Oxygen Delivery Method 10/02/2404:30 10/02/2404:45 10/02/2405:00 Temperature Pulse Rate 83 98 H Respiratory Rate 17 25 H Blood Pressure 146/90 H Pulse Oximetry 98 98 Oxygen Delivery Method 10/02/2405:00 10/02/2405:15 10/02/2406:00 Temperature Pulse Rate 90 85 Respiratory Rate 19 20 Blood Pressure 101/65 Pulse Oximetry 98 99 Oxygen Delivery Method 10/02/2406:00 10/02/2406:15 10/02/2406:30 Temperature Pulse Rate 80 78 80 Respiratory Rate 16 19 16 Blood Pressure Pulse Oximetry 98 97 98 Oxygen Delivery Method 10/02/2406:45 10/03/2407:00 10/03/2407:00 Temperature Pulse Rate 79 80 Respiratory Rate 20 15 Blood Pressure 108/72 Pulse Oximetry 98 98 Oxygen Delivery Method 10/03/2407:00 10/03/2407:15 10/03/2407:30 Temperature 98.4 F Pulse Rate 85 96 H Respiratory Rate 11 L 19 Blood Pressure Pulse Oximetry 99 Oxygen Delivery Method 10/03/2407:45 10/02/2408:00 10/02/2408:00 Temperature Pulse Rate 94 H 95 H Respiratory Rate 19 13 Blood Pressure 157/80 H Pulse Oximetry Oxygen Delivery Method 10/02/2408:15 10/02/2408:30 10/02/2408:45 Temperature Pulse Rate 93 H 90 87 Respiratory Rate 24 22 21 Blood Pressure Pulse Oximetry Oxygen Delivery Method 10/02/2409:00 10/02/2409:00 10/02/2409:01 Temperature 98.1 F Pulse Rate 87 Respiratory Rate 20 Blood Pressure Pulse Oximetry Oxygen Delivery Method Room Air 10/02/2409:15 10/02/2409:30 10/02/2409:32 Temperature Pulse Rate 86 87 Respiratory Rate 21 18 Blood Pressure 101/58 L Pulse Oximetry Oxygen Delivery Method 10/02/2409:32 10/02/2409:45 10/02/2410:00 Temperature Pulse Rate 90 86 86 Respiratory Rate 18 20 19 Blood Pressure Pulse Oximetry Oxygen Delivery Method 10/02/2410:15 10/02/2410:30 Temperature Pulse Rate 85 86 Respiratory Rate 20 19 Blood Pressure Pulse Oximetry Oxygen Delivery Method Oxygen Delivery Method Room Air Oxygen Flow Rate 0 Narrative Exam Narrative: GENERAL: Sleepy but arousable, appears fatigued, in no apparent distress. EYES: Pupils equal round and reactive. Extraocular motions intact. No scleral icterus. No injection or drainage. ENT: Mucous membranes pink and moist. NECK: Supple, nontender, no meningeal signs. CARDIOVASCULAR: Regular rate and rhythm without murmurs, gallops, or rubs. RESPIRATORY: Clear to auscultation. GASTROINTESTINAL: Abdomen soft, nontender, nondistended. NEUROLOGIC: Alert, oriented, speech fluent, full upper and lower motor strength, no focal deficits evident. DERMATOLOGIC: No rashes or skin lesions. Objective Labs 10/03/23 08:20 10/03/23 08:20 Labs: Laboratory Results - last 24 hr 10/02/23 10/02/23 10/02/23 11:35 13:34 14:05 WBC 13.2 H RBC 4.88 Hgb 11.7 L Hct 36.3 L MCV 74.4 L MCH 23.9 L MCHC 32.1 RDW 18.3 H Plt Count 342 Neut % (Auto) 87.5 H Lymph % (Auto) 8.8 L [place] % (Auto) 3.5 Eos % (Auto) 0.0 L Baso % (Auto) 0.2 Neut # (Auto) 37[address] H Lymph # (Auto) 1200 [place] # (Auto) 500 Eos # (Auto) 0 Baso # (Auto) 0 VBG pH VBG pCO2 VBG pO2 VBG HCO3 VBG Total CO2 VBG O2 Saturation VBG Base Excess Sodium 136 L 141 Potassium 4.3 4.4 Chloride 98 108 H Carbon Dioxide 16 L 17 L BUN 23 H 22 H Creatinine 1.42 H 1.24 Estimated GFR > 60 > 60 BUN/Creatinine Ratio 16.2 17.7 Glucose 215 H 144 H Lactate 3.3 H 0.8 Calcium 9.9 7.9 L Magnesium 2.3 Total Bilirubin 0.9 AST 38 ALT 38 Alkaline Phosphatase 100 Total Protein 8.5 H Albumin 4.9 Globulin 3.6 Albumin/Globulin Ratio 1.4 Lipase 37 Nasal Screen MRSA (PCR) U Opiates 300ng/mL cut Ur Oxycodone Screen Urine Methadone Screen Ur Barbiturates Screen U Tricyclic Antidepress Ur Phencyclidine Scrn Ur Amphetamines Screen U Methamphetamines Scrn Ur MDMA Scrn (Ecstasy) U Benzodiazepines Scrn Urine Cocaine Screen U Marijuana (THC) Screen Urine pH Urine Specific [place] Ethyl Alcohol < 10 Ketones 4.26 H Ur Creatinine 10/02/23 10/02/23 10/02/23 14:17 14:40 15:50 WBC RBC Hgb Hct MCV MCH MCHC RDW Plt Count Neut % (Auto) Lymph % (Auto) [place] % (Auto) Eos % (Auto) Baso % (Auto) Neut # (Auto) Lymph # (Auto) [place] # (Auto) Eos # (Auto) Baso # (Auto) VBG pH 7.34 VBG pCO2 37.1 L VBG pO2 56 H VBG HCO3 20 L VBG Total CO2 20 L VBG O2 Saturation 87 H VBG Base Excess -5.5 L Sodium Potassium Chloride Carbon Dioxide BUN Creatinine Estimated GFR BUN/Creatinine Ratio Glucose Lactate Calcium Magnesium Total Bilirubin AST ALT Alkaline Phosphatase Total Protein Albumin Globulin Albumin/Globulin Ratio Lipase Nasal Screen MRSA (PCR) Not detected U Opiates 300ng/mL cut Negative Ur Oxycodone Screen Negative Urine Methadone Screen Negative Ur Barbiturates Screen Negative U Tricyclic Antidepress Negative Ur Phencyclidine Scrn Negative Ur Amphetamines Screen Negative U Methamphetamines Scrn Negative Ur MDMA Scrn (Ecstasy) Negative U Benzodiazepines Scrn Negative Urine Cocaine Screen Negative U Marijuana (THC) Screen Positive H Urine pH Normal Urine Specific [place] Normal Ethyl Alcohol Ketones Ur Creatinine Normal 10/02/23 10/02/23 10/03/23 16:20 20:03 00:29 WBC RBC Hgb Hct MCV MCH MCHC RDW Plt Count Neut % (Auto) Lymph % (Auto) [place] % (Auto) Eos % (Auto) Baso % (Auto) Neut # (Auto) Lymph # (Auto) [place] # (Auto) Eos # (Auto) Baso # (Auto) VBG pH VBG pCO2 VBG pO2 VBG HCO3 VBG Total CO2 VBG O2 Saturation VBG Base Excess Sodium 137 138 132 L Potassium 4.8 4.0 4.1 Chloride 108 H 109 H 105 Carbon Dioxide 16 L 22 20 L BUN 21 H 20 17 Creatinine 1.17 1.12 0.94 Estimated GFR > 60 > 60 > 60 BUN/Creatinine Ratio 17.9 17.9 18.1 Glucose 133 H 73 226 H D Lactate Calcium 8.0 L 7.5 L 7.3 L Magnesium Total Bilirubin AST ALT Alkaline Phosphatase Total Protein Albumin Globulin Albumin/Globulin Ratio Lipase Nasal Screen MRSA (PCR) U Opiates 300ng/mL cut Ur Oxycodone Screen Urine Methadone Screen Ur Barbiturates Screen U Tricyclic Antidepress Ur Phencyclidine Scrn Ur Amphetamines Screen U Methamphetamines Scrn Ur MDMA Scrn (Ecstasy) U Benzodiazepines Scrn Urine Cocaine Screen U Marijuana (THC) Screen Urine pH Urine Specific [place] Ethyl Alcohol Ketones Ur Creatinine 10/03/23 10/03/23 05:01 08:20 WBC 11.0 RBC 3.90 L Hgb 9.5 L Hct 29.0 L MCV 74.4 L MCH 24.3 L MCHC 32.6 RDW 17.6 H Plt Count 237 Neut % (Auto) 77.2 H Lymph % (Auto) 13.4 L [place] % (Auto) 8.4 Eos % (Auto) 0.5 L Baso % (Auto) 0.5 Neut # (Auto) 8500 H Lymph # (Auto) 1500 [place] # (Auto) 900 Eos # (Auto) 0 Baso # (Auto) 100 VBG pH VBG pCO2 VBG pO2 VBG HCO3 VBG Total CO2 VBG O2 Saturation VBG Base Excess Sodium 137 134 L Potassium 3.8 3.9 Chloride 110 H 105 Carbon Dioxide 21 L 21 L BUN 15 12 Creatinine 0.94 0.97 Estimated GFR > 60 > 60 BUN/Creatinine Ratio 16.0 12.4 Glucose 57 L D 110 H Lactate Calcium 7.8 L 7.6 L Magnesium Total Bilirubin AST ALT Alkaline Phosphatase Total Protein Albumin Globulin Albumin/Globulin Ratio Lipase Nasal Screen MRSA (PCR) U Opiates 300ng/mL cut Ur Oxycodone Screen Urine Methadone Screen Ur Barbiturates Screen U Tricyclic Antidepress Ur Phencyclidine Scrn Ur Amphetamines Screen U Methamphetamines Scrn Ur MDMA Scrn (Ecstasy) U Benzodiazepines Scrn Urine Cocaine Screen U Marijuana (THC) Screen Urine pH Urine Specific [place] Ethyl Alcohol Ketones Ur Creatinine PFSH Medical History HTN (hypertension) Hypothyroidism Marijuana use History of MRSA infection History of pneumonia Blurry vision, bilateral Diabetic neuropathy Bipolar disorder with depression Nausea and vomiting Diabetes type 1, uncontrolled Diabetic gastroparesis Surgical History No pertinent past surgical history Family History Mother No known health problemsFather No known health problems Social History household members: family Smoking Status: Former smoker alcohol intake: current Assessment & Plan Assessment & Plan narrative: 1. Diabetic ketoacidosis due to flare of gastric paresis versus cannabinoid hyperemesis syndrome, resolved. 2. Type 1 diabetes mellitus. 3. Diabetic gastroparesis. Treat with antiemetics and resume diet when able. 4. Cannabinoid use. Advised discontinuation. 5. Bipolar disorder. 6. Hypothyroidism. Continue routine medications. Plan: -floor status -insulin pump has run out of insulin, we will use Lantus today. -antiemetics as needed -IV fluids, normal saline -cannabanoid use discouraged given risk of hyperemesis syndrome HANS: Anticipate discharge by October 04. Time-Based Coding :: [TOTAL MINUTES] spent with patient and on the chart (including review of chart, obtaining history, exam, reviewing outside data, placing orders, documenting exam and treatment plan, and counseling patient) on [DATE]. Quality VTE Deep Vein Thrombosis/Pulmonary Embolism Present on Admission: No
--- NOTE | 2023-10-04 15:44 | CM.DPC ---
DCP Cont: Per MD, pt's insulin pump has run out and started on Lantus for now and DKA improved but has not had much appetite. Not yet medically stable to discharge today but possible d/c tomorrow if stable. GORDON [place]
[2023-10-04] MEDS: METOPROLOL IR 25 MG TABLET PO (22:33)
[2023-10-05] VITALS (41 sets, daily range): BP systolic 134–155; BP diastolic 90–104; PULSE 72–98; RESP 0–69; TEMP 36.7–37.3; O2SAT 98
--- NOTE | 2023-10-05 01:29 | PC.NURSE ---
pt called and asked for blood sugar to be checked; fingerstick-81; pt asked for snack and given oj, crackers, and cheese
[2023-10-05] MEDS: HYDROMORPHONE 0.5 MG INJ IV ×3 (01:47→08:52)
[2023-10-05] MEDS: SODIUM CHLORIDE 0.9% 1,000 ML 125 ML IV (03:00)
[2023-10-05] MEDS: diphenhydrAMINE 25 MG TABLET PO (03:13)
[2023-10-05] MEDS: LEVOTHYROXINE 25 MCG TABLET PO (05:30)
[2023-10-05] MEDS: PANTOPRAZOLE DR 40 MG TABLET PO (06:50)
[2023-10-05 08:34] LABS: Hemoglobin 10.6 g/dL (13.5-17.5); Mean Corpuscular HGB Conc 32.2 % (30-36); Mean Corpuscular Hemoglobin 24.5 PG (26-34); Platelet Count 261 X10^3/uL (150-400); Red Blood Cell Count 4.33 X10^6/uL (4.5-5.9); Red Cell Distribution Width 17.1 % (11.6-14.8); White Blood Cell Count 7.8 X10^3/uL (4.5-11.0)
[2023-10-05] MEDS: hydrOXYzine HCL 25 MG TABLET PO (08:40)
[2023-10-05] MEDS: METOCLOPRAMIDE HCL 5 MG TABLET 10 MG PO (08:40)
[2023-10-05] MEDS: INSULIN LISPRO 100 UNIT/ML 3ML VIAL SUBCUT (08:42)
[2023-10-05] MEDS: METOPROLOL IR 25 MG TABLET PO (08:44)
[2023-10-05 08:46] LABS: BUN Creatinine Ratio 5.9 (6-22); Blood Urea Nitrogen 6 mg/dL (9-20); Calcium 8.5 mg/dL (8.4-10.2); Carbon Dioxide 25 mmol/L (22-32); Chloride 103 mmol/L (98-107); Estimated Glomerular Filt Rate > 60 mL/min (>60); Glucose 139 mg/dL (70-100); HEMOLYSIS < 15 (0-50); Potassium 3.9 mmol/L (3.4-5.1); Sodium 135 mmol/L (137-145)
--- NOTE | 2023-10-05 10:04 | PM.DS.1 ---
History of Present Illness History of Present Illness Chief complaint: N/V Narrative: From H&P: 33-year-old man with type 1 diabetes mellitus and gastric paresis presents with intractable nausea, vomiting and diarrhea. He states he had drunk a couple of shots of rum yesterday, and smoked marijuana, with last use 2 days ago, and started vomiting at 4:00 a.m. this morning, presented to the emergency department with persistent dry heaves and retching with blood tinged emesis. He reports abdominal pain diffusely and was given IV Dilaudid in the emergency department, along with 3 L of IV fluids, and fail to resolve presenting diabetic ketoacidosis. His initial anion gap was 24, improving to 16. His pH was 7.30. He is admitted for further management and evaluation. Discharge Providers Provider Date of admission: 10/02/23 14:53 Discharge Date: 10/05/23 Primary care physician: DESIRE Martines Consults: None. Discharge provider: Kiran Moore MD Summary Hospital Course Discharge Diagnosis: 1. Diabetic ketoacidosis, rpesent on admission and resolved. 2. Type 1 diabetes mellitus. Present on admission and active. 3. Diabetic gastroparesis. Present on admission and active. 4. Cannabinoid use. Present on admission and active. 5. Bipolar disorder. Present on admission and active. 6. Hypothyroidism. Present on admission and active. Hospital Course: The patient was admitted with DKA and treated in the typical fashion with IV fluids, and insulin drip as well as electrolyte management. The patient states that this began by adverse are reacting to 2 shots of alcohol prior to admission. The patient did improve clinically and was found to have an empty insulin pump while in the hospital. He was treated with Lantus and was stable for discharge on October 04. He indicated he was able to refill his pump and resume the pump without any issues. He was an upcoming 1st appointment with his new PCP in the next week. Status at Discharge Cognitive/behavioral status at discharge: at baseline, oriented Functional status at discharge: independent ambulation Overall status at discharge: patient is back to baseline Time Spent with Patient Time spent: Greater than 30 minutes Exam Vital Signs (past 8 hours): - 10/05/23 02:15 10/05/23 02:30 10/05/23 02:45 Temperature Pulse Rate 79 80 81 Respiratory Rate 11 L 11 L 0 L Blood Pressure Pulse Oximetry Oxygen Flow Rate 10/05/23 03:00 10/05/23 03:10 10/05/23 03:10 Temperature Pulse Rate 76 79 Respiratory Rate 12 10 L Blood Pressure 134/90 Pulse Oximetry 98 Oxygen Flow Rate 10/05/23 03:15 10/05/23 03:30 10/05/23 03:45 Temperature Pulse Rate 79 80 81 Respiratory Rate 12 11 L 16 Blood Pressure Pulse Oximetry Oxygen Flow Rate 10/05/23 04:00 10/05/23 04:00 10/05/23 04:15 Temperature 99.1 F Pulse Rate 78 85 79 Respiratory Rate 13 14 16 Blood Pressure 134/90 Pulse Oximetry 98 Oxygen Flow Rate 0 10/05/23 04:30 10/05/23 04:45 10/05/23 05:00 Temperature Pulse Rate 76 74 75 Respiratory Rate 13 16 16 Blood Pressure Pulse Oximetry Oxygen Flow Rate 10/05/23 05:15 10/05/23 05:30 10/05/23 05:45 Temperature Pulse Rate 75 79 75 Respiratory Rate 16 12 13 Blood Pressure Pulse Oximetry Oxygen Flow Rate 10/05/23 06:00 10/05/23 06:15 10/05/23 06:30 Temperature Pulse Rate 74 73 74 Respiratory Rate 12 14 17 Blood Pressure Pulse Oximetry Oxygen Flow Rate 10/05/23 06:45 10/05/23 07:00 10/05/23 07:15 Temperature Pulse Rate 76 75 73 Respiratory Rate 12 10 L 12 Blood Pressure Pulse Oximetry Oxygen Flow Rate 10/05/23 07:30 10/05/23 07:45 10/05/23 08:00 Temperature Pulse Rate 75 72 87 Respiratory Rate 14 13 21 Blood Pressure Pulse Oximetry Oxygen Flow Rate 10/05/23 08:15 10/05/23 08:30 10/05/23 08:41 Temperature Pulse Rate 76 75 Respiratory Rate 9 L 8 L Blood Pressure 147/96 H Pulse Oximetry Oxygen Flow Rate 10/05/23 08:41 10/05/23 08:45 10/05/23 09:00 Temperature Pulse Rate 79 85 83 Respiratory Rate 19 23 16 Blood Pressure Pulse Oximetry Oxygen Flow Rate Oxygen Delivery Method Room Air Oxygen Flow Rate 0 Narrative Exam Narrative: NAD, alert and oriented. Fluent speech. Flat affect. Lungs are clear, normal rate and effort. Heart is regular, no murmur gallop or rub. Abdomen is soft, non distended. Extremities are free of edema. Objective ECG Impression: Normal sinus rhythm Labs 10/05/23 08:19 10/05/23 08:19 Labs: Laboratory Results - last 24 hr 10/04/23 10/05/23 12:05 08:19 WBC 10.9 7.8 RBC 4.21 L 4.33 L Hgb 10.3 L 10.6 L Hct 31.6 L 33.0 L MCV 75.2 L 76.0 L MCH 24.4 L 24.5 L MCHC 32.4 32.2 RDW 17.5 H 17.1 H Plt Count 247 261 Sodium 134 L 135 L Potassium 3.8 3.9 Chloride 103 103 Carbon Dioxide 26 25 BUN 6 L 6 L Creatinine 1.06 1.01 Estimated GFR > 60 > 60 BUN/Creatinine Ratio 5.7 L 5.9 L Glucose 165 H 139 H Calcium 8.5 8.5 PFSH Medical History HTN (hypertension) Hypothyroidism Marijuana use History of MRSA infection History of pneumonia Blurry vision, bilateral Diabetic neuropathy Bipolar disorder with depression Nausea and vomiting Diabetes type 1, uncontrolled Diabetic gastroparesis Surgical History No pertinent past surgical history Family History Mother No known health problems Father No known health problems Social History household members: family Smoking Status: Former smoker alcohol intake: current Discharge Assessment & Plan Assessment and Plan Assessment: 1. Diabetic ketoacidosis, rpesent on admission and resolved. 2. Type 1 diabetes mellitus. Present on admission and active. 3. Diabetic gastroparesis. Present on admission and active. Plan of Treatment: Discharge to home, resume usual insulin regimen with his pump. Follow up with PCP as scheduled within the next week, October 11. Discharge Plan Discharge Plan Patient Disposition: Home Provider Discharge Comment: Patient is improved symptomatically and stable for discharge home. Discharge orders & Medications Prescriptions: Continued hydroxyzine HCl 25 mg PO TID levothyroxine 25 mcg Tablet 25 mcg PO DAILY@0600 diphenhydramine HCl 25 mg Tablet 25 mg PO BEDTIME PRN (Reason: Insomnia) metoprolol tartrate 25 mg Tablet 25 mg PO DAILY metoclopramide HCl [Reglan] 10 mg tablet 10 mg PO Q8HR PRN (Reason: nausea and vomiting) Qty: 40 0RF omeprazole 40 mg Capsule,Delayed Release(Dr/Ec) 40 mg PO BID (DME) insulin pump syringe 3 mL Misc MISCELLANEOUS Rx Instructions: patient uses insulin pump Medication counseling provided by Pharmacist: No Follow up/Referrals: Mary Gil ARNP [Primary Care Provider] - Miscellaneous,Doctor, [Non-Staff] - Discharge Health Status Multidrug resistant organism: No MDRO Diet/Activity/Treatments Diet: Carb-consistent/Diabetic Visit Report/Discharge Packet Instructions: DI for Diabetic Ketoacidosis Stand Alone Forms: Patient Portal/API Discharge Data Primary Care Provider: Mary Gil Quality VTE Deep Vein Thrombosis/Pulmonary Embolism Present on Admission: No
[2023-10-05] MEDS: INSULIN GLARGINE 100 UNIT/ML 3ML PEN 15 UNIT SUBCUT (10:09)
== END 2023-10-05 11:39 | disposition home or self-care (01) | DRG 420 ==
LOC: ED 11:21 → AC 14:54 → ICU 15:50
PROVIDERS: Hospitalist; Admitting Provider Internal Medicine; Emergency Provider Emergency Medicine; PCP Nurse Practitioner Family; Referring Provider Emergency Medicine; Visit Provider Internal Medicine
DX: E10.10 Type 1 diabetes mellitus with ketoacidosis without coma (principal); E10.43 Type 1 diabetes mellitus with diabetic autonomic (poly)neuropathy; K31.84 Gastroparesis; F12.90 Cannabis use, unspecified, uncomplicated; F31.9 Bipolar disorder, unspecified; E03.9 Hypothyroidism, unspecified; I10 Essential (primary) hypertension; Z96.41 Presence of insulin pump (external) (internal); Z87.891 Personal history of nicotine dependence
CPT/HCPCS: 36415; 51798; 80048; 80053; 80305; 80320; 81003; 82009; 82805; 82962; 83605; 83690; 83735; 85025; 85027; 87797; 93005; 96374; 96375; 99285; A9270; J0780; J1170; J1815; J2060; J2405; J2470; J2765

== ENCOUNTER → 2023-10-26 16:10 | Outpatient (CLI) | payer OTHER, MEDICAID, SELFPAY ==
[2023-10-02 16:14] VITALS: BMI 25.8
--- NOTE | 2023-10-26 16:11 | DI.RAD.S_ITS ---
PROCEDURE: XR LUMBAR SPINE 2-3V INDICATIONS: back pain TECHNIQUE: 3 views of the lumbar spine were acquired. COMPARISON: None. FINDINGS: Lumbar spine curvature and alignment: Normal. Bones: Mild L1 compression fracture features 15% loss of vertebral height anteriorly. It appears to be stable-no posterior element involvement. Disc spaces: Normal in height without significant degeneration. Intervertebral foramen: Grossly normal in width. Soft tissues: No soft tissue swelling, calcification or mass. IMPRESSION: Mild stable L1 compression fracture. Dictated by: Guy Centeno M.D. on 10/27/2023 at 6:52 Approved by: uGy Centeno M.D. on 10/27/2023 at 6:53
== END ==
PROVIDERS: PCP Family Medicine; Referring Provider Family Medicine; Visit Provider Family Medicine
DX: M48.56XA Collapsed vertebra, not elsewhere classified, lumbar region, initial encounter for fracture (principal); E10.65 Type 1 diabetes mellitus with hyperglycemia; E10.43 Type 1 diabetes mellitus with diabetic autonomic (poly)neuropathy; K31.84 Gastroparesis; M54.9 Dorsalgia, unspecified; I10 Essential (primary) hypertension; K21.9 Gastro-esophageal reflux disease without esophagitis
CPT/HCPCS: 72100

== ENCOUNTER 2023-11-03 12:41 | Inpatient (IN) | payer MEDICAID, OTHER, SELFPAY ==
[2023-10-02 16:14] VITALS: BMI 25.8
[2023-11-03] VITALS (34 sets, daily range): BP systolic 80–177; BP diastolic 42–114; PULSE 65–108; RESP 12–28; TEMP 36.5–36.7; O2SAT 98–100; BMI 25.8; BMI 25.9
--- NOTE | 2023-11-03 14:05 | ED_ITS ---
HPI - Nausea/Vomiting/Diarrhea General Chief complaint: Nausea/Vomiting/Diarrhea Stated complaint: vomiting Time Seen by Provider: 11/03/23 13:51 Source: patient Mode of arrival: Ambulatory History of Present Illness HPI Narrative: 33-year-old individual with type 1 diabetes, history of gastroparesis, regular marijuana user with vomiting that has been present for almost 24 hours. He is complaining of significant abdominal pain persistent vomiting and looks miserable. Has not been able to keep medications down. He states that with his gastroparesis Ativan, Compazine and IV narcotic are most effective. He does not describe any fevers. There is no black or blood in the emesis. At this point he is essentially dry heaving. Related Data Home Medications Medication Instructions Recorded Confirmed diphenhydramine HCl 25 mg tablet 25 mg PO BEDTIME PRN Insomnia 07/09/23 10/22/23 insulin pump syringe 3 mL 10/04/23 10/22/23 hydroxyzine HCl PO 10/22/23 10/22/23 metoprolol succinate 50 mg 50 mg PO DAILY 10/22/23 10/22/23 tablet,extended release 24 hr Previous Rx's Medication Instructions Recorded levothyroxine 50 mcg tablet 50 mcg PO DAILY #90 tabs 10/22/23 metoclopramide HCl 10 mg tablet 10 mg PO Q8HR PRN nausea and 10/22/23 (Reglan) vomiting #40 tabs omeprazole 40 mg capsule,delayed 40 mg PO BID #60 caps 10/22/23 release Allergies Allergy/AdvReac Type Severity Reaction Status Date / Time aspirin [ASPIRIN] Allergy Unknown MAKES ME Verified 11/03/23 13:11 GO DEAF hydrocodone [HYDROCODONE] AdvReac Intermediate VOMITING Verified 11/03/23 13:11 ibuprofen [IBUPROFEN] AdvReac Intermediate HURTS Verified 11/03/23 13:11 KIDNEYS Patient History Medical History (Updated 11/03/23 @ 17:38 by Daphne Montejo MD) Chronic lower back pain HTN (hypertension) Hypothyroidism Marijuana use History of MRSA infection History of pneumonia Blurry vision, bilateral Diabetic neuropathy Bipolar disorder with depression Nausea and vomiting Diabetes type 1, uncontrolled Diabetic gastroparesis Surgical History No pertinent past surgical history Family History Mother No known health problems Father No known health problems Social History household members: family Smoking Status: Former smoker alcohol intake: current Smoking Status: Former smoker alcohol intake frequency: holidays/special occasions only Alcohol type: hard liquor Substance Use Type: marijuana Exam Initial Vital Signs Initial Vital Signs: Vital Signs Temperature 97.8 F 11/03/23 13:08 Pulse Rate 78 11/03/23 13:08 Respiratory Rate 18 11/03/23 13:08 Pulse Oximetry 100 11/03/23 13:08 Oxygen Delivery Method Room Air 11/03/23 13:08 General: Chronically ill also appearing acutely ill, dry heaving, diaphoretic from the work of vomiting HEENT: Dry mucous membranes, normal sclera with reactive pupils, Respiratory: Lungs are clear to auscultation, no wheezing no rales no rhonchi. Full and symmetrical air movement Cardiac: Tachycardic, no murmurs Abdomen: Soft, diffuse tenderness without rebound or guarding Skin: Pale diaphoretic Neurologic: Grossly neurologically intact with no obvious asymmetries or abnormalities Extremities: No trauma, Psych: Cooperative, appropriate insight and affect Course Orders Ordered: ED Orders 11/03/23 13:14 EKG-12 Lead Stat 11/03/23 14:09 VBG [Venous Blood Gas] STAT 11/03/23 14:39 Venous Blood Gas Routine 11/03/23 14:40 Complete Blood Count AUTO DIFF Stat Comprehensive Metabolic Panel Stat Ketones (Beta-Hydroxybutyrate) Stat Lipase Stat 11/03/23 15:35 Gastric Occult with pH Stat Ondansetron HCl (Ondansetron 4 Mg/2 Ml Inj) 4 mg IV NOW PRN PRN Reason: Nausea And Vomiting Last Admin: 11/03/23 14:55 Dose: 4 mg Documented By: VALERI Ondansetron HCl (Ondansetron 4 Mg Odt) 4 mg PO NOW PRN PRN Reason: Nausea And Vomiting Discontinued Medications Hydromorphone HCl (Hydromorphone 0.5 Mg Inj) 0.5 mg IV NOW ONE Stop: 11/03/23 14:10 Last Admin: 11/03/23 15:25 Dose: Not Given Documented By: VALERI Sodium Chloride (Normal Saline 0.9%) 1,000 mls @ 2,000 mls/hr IV BOLUS ONE Stop: 11/03/23 14:38 Last Infusion: 11/03/23 16:13 Dose: Infused Documented By: Admin: 11/03/23 14:54 Dose: 1,000 mls/hr Documented By: VALERI Lorazepam (Lorazepam 2 Mg/Ml Inj) 2 mg IV NOW ONE Stop: 11/03/23 14:10 Last Admin: 11/03/23 14:55 Dose: 2 mg Documented By: VALERI Prochlorperazine (Prochlorperazine 10 Mg/2 Ml Vial) 10 mg IV NOW ONE Stop: 11/03/23 14:10 Last Admin: 11/03/23 14:53 Dose: 10 mg Documented By: VALERI Vital Signs Vital signs: Vital Signs - 8 hr 11/03/23 13:08 11/03/23 13:12 11/03/23 14:26 Temperature 97.8 F Pulse Rate 78 Respiratory Rate 18 Blood Pressure 177/108 H 162/114 H Pulse Oximetry 100 Oxygen Delivery Method Room Air Oxygen Flow Rate 11/03/23 14:26 11/03/23 14:30 11/03/23 14:30 Temperature Pulse Rate 84 97 H Respiratory Rate 19 20 Blood Pressure 166/112 H Pulse Oximetry 100 100 Oxygen Delivery Method Oxygen Flow Rate 11/03/23 14:53 11/03/23 14:54 11/03/23 14:54 Temperature Pulse Rate 65 72 Respiratory Rate 23 Blood Pressure 148/100 H 148/100 H Pulse Oximetry 100 Oxygen Delivery Method Oxygen Flow Rate 11/03/23 15:00 11/03/23 15:00 11/03/23 15:14 Temperature Pulse Rate 90 Respiratory Rate 19 Blood Pressure 163/92 H 149/72 H Pulse Oximetry 100 Oxygen Delivery Method Oxygen Flow Rate 11/03/23 15:14 11/03/23 15:15 11/03/23 15:15 Temperature Pulse Rate 98 H 101 H Respiratory Rate 28 H 24 Blood Pressure 142/76 H Pulse Oximetry 100 100 Oxygen Delivery Method Oxygen Flow Rate 11/03/23 15:30 11/03/23 15:31 11/03/23 15:31 Temperature Pulse Rate 91 H 91 H Respiratory Rate 19 19 Blood Pressure 106/69 Pulse Oximetry 100 100 Oxygen Delivery Method Nasal Cannula Oxygen Flow Rate 2 11/03/23 15:45 11/03/23 15:47 11/03/23 16:00 Temperature Pulse Rate 89 Respiratory Rate 20 Blood Pressure 116/63 111/62 Pulse Oximetry 100 Oxygen Delivery Method Oxygen Flow Rate 11/03/23 16:00 11/03/23 16:15 11/03/23 16:15 Temperature Pulse Rate 97 H 107 H Respiratory Rate 18 22 Blood Pressure 132/76 Pulse Oximetry 100 100 Oxygen Delivery Method Nasal Cannula Oxygen Flow Rate 2 11/03/23 16:30 11/03/23 16:30 Temperature 98.1 F Pulse Rate 98 H Respiratory Rate 15 Blood Pressure 125/78 Pulse Oximetry 100 Oxygen Delivery Method Room Air Oxygen Flow Rate MDM - Nausea/Vomiting/Diarrhea Lab Data 11/03/23 14:40 11/03/23 14:40 Labs: Lab Results 11/03/23 11/03/23 11/03/23 Range/Units 14:39 14:40 15:35 WBC 13.9 H (4.5-11.0) X10^3/uL RBC 4.93 (4.5-5.9) X10^6/uL Hgb 11.8 L (13.5-17.5) g/dL Hct 36.8 L (41-53) % MCV 74.8 L (80-100) fL MCH 23.9 L (26-34) PG MCHC 32.0 (30-36) % RDW 15.9 H (11.6-14.8) % Plt Count 307 (150-400) X10^3/uL Neut % (Auto) 87.0 H (50-75) % Lymph % (Auto) 8.7 L (25-40) % [place] % (Auto) 3.4 (3-14) % Eos % (Auto) 0.2 L (2-4) % Baso % (Auto) 0.7 (0-2) % Neut # (Auto) 62758 H (1148-2929) /uL Lymph # (Auto) 1200 (7100-3252) /uL [place] # (Auto) 500 (0-900) /uL Eos # (Auto) 0 (0-450) /uL Baso # (Auto) 100 (0-100) /uL VBG pH 7.52 H (7.33-7.43) VBG pCO2 24.8 L (45-50) mmHg VBG pO2 36 (35-45) mmHg VBG HCO3 20 L (24-28) mmol/L VBG Total CO2 20 L (24-29) mmol/L VBG O2 Saturation 77 H (70-75) % VBG Base Excess -0.9 L (0-4) mmol/L Sodium 134 L (137-145) mmol/L Potassium 4.5 (3.4-5.1) mmol/L Chloride 99 (98-107) mmol/L Carbon Dioxide 20 L (22-32) mmol/L BUN 30 H (9-20) mg/dL Creatinine 1.31 H (0.66-1.25) mg/dL Estimated GFR > 60 (>60) mL/min BUN/Creatinine Ratio 22.9 H (6-22) Glucose 336 H (70-100) mg/dL Calcium 9.6 (8.4-10.2) mg/dL Total Bilirubin 1.0 (0.2-1.3) mg/dL AST 43 (17-59) IU/L ALT 21 (<50) IU/L Alkaline Phosphatase 83 (38-126) U/L Total Protein 8.4 H (6.3-8.2) g/dL Albumin 4.7 (3.5-5.0) g/dL Globulin 3.7 (1.7-4.1) g/dL Albumin/Globulin Ratio 1.3 (1.0-2.8) Lipase 118 (23-300) U/L Gastric Fluid pH 4 H (1-2) pH Gastric Occult Blood Positive H (NEGATIVE) Ketones 2.81 H (<0.27) mmol/L MDM Narrative Medical decision making narrative: CC: Nausea and vomiting in his set up an of gastroparesis Complicating co-morbidities: Diabetic gastroparesis, cannabinoid hyperemesis syndrome, bipolar disorder, type 1 diabetes with a recent history of DKA Data collected from: patient Medical records reviewed: Discharge summary from October 04 is reviewed Differential considered: DKA, bowel obstruction, diabetic gastroparesis, cannabinoid hyperemesis syndrome, combination of all of the above Exam documented above, pertinent findings include: Patient appears miserable dry heaving, diaphoretic diffusely tender but nonsurgical belly Lab Test results independently reviewed as above. Pertinent findings: CBC shows slight leukocytosis at 13.9 with 87% left shift. H and H is actually higher than his most recent baselines at 11.8 and 36.8. Platelets are appropriate Anion gap of 15 Chemistries show acute kidney injury with creatinine at 1.3. Liver studies are unremarkable Lipase is appropriate Ketones are positive at 2.81 VBG with a pH of 7.5 to Independently reviewed EKG: Sinus tachycardia 99. Slight left axis deviation no acute ischemic changes Treatments: A L of fluid, 2 mg of Ativan, 10 mg of Compazine at his request as this tends to work best for his nausea. He did not receive any Dilaudid Re-evaluations: Re-evaluated almost 3 hours after the Ativan and he is still significantly somnolent. He is continued to vomit with thin black watery material coming from his stomach that is guaiac positive. Blood pressure was initially quite low with systolics in the 80s but comes back to 115 with simple repositioning. He is currently on his 2 L of normal saline. Rechecking an H&H, lactic acid and insulin drip is being started Discussion: 33-year-old type 1 diabetic with recurrent episodes of DKA and gastroparesis. He has been vomiting for at least 24 hours. Vomitus at this point is guaiac positive however his H&H is actually increased. His venous blood gas shows a pH elevated at 7.5 however he has an anion gap of 15 and is positive for ketones. Blood sugar is in the 300 range. Potassium level is appropriate. Insulin drip is initiated, care is discussed Dr. Moore hospitalist. We will plan on admission for DKA, possible upper GI bleed, gastroparesis with persistent vomiting and acute kidney injury. Critical Care Time Critical Care Time Critical Care Time: Yes Total Critical Care Time: 33 Attestation: Critical care time is separate from other billable procedures. There is a high probability of a significant, sudden or life-threatening deterioration that requires my full and direct attention, intervention and personal management. This critical care time includes consultation with family and other consulting doctors, review of records, and interpretation of data from labs, EKGs and imaging as well as managements of acute endocrine abnormalities with DKA and hypotension Discharge Plan Departure Patient Disposition: Admitted As Inpatient Clinical Impression: Diabetic gastroparesis, Acute kidney injury DKA, type 1 Qualifiers: Diabetes mellitus complication detail: without coma Qualified Code(s): E10.10 - Type 1 diabetes mellitus with ketoacidosis without coma Bloody vomitus Qualifiers: Nausea presence: with nausea Qualified Code(s): K92.0 - Hematemesis Admit Date/Time: 11/03/23 17:31 Admit Provider: Kiran Moore
--- NOTE | 2023-11-03 14:34 | EKG_ITS ---
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
[2023-11-03 14:46] LABS: Base Excess VBG -0.9 mmol/L (0-4); HCO3 VBG 20 mmol/L (24-28); Oxygen Saturation VBG 77 % (70-75); PCO2 VBG 24.8 mmHg (45-50); PO2 VBG 36 mmHg (35-45); Total CO2 VBG 20 mmol/L (24-29); pH VBG 7.52 (7.33-7.43)
[2023-11-03] MEDS: PROCHLORPERAZINE 10 MG/2 ML VIAL IV (14:53)
[2023-11-03 14:54] LABS: Add Manual Diff / Slide Review NO; Basophils Absolute Auto 100 /uL (0-100); Basophils Percent Auto 0.7 % (0-2); Eosinophils Absolute Auto 0 /uL (0-450); Eosinophils Percent Auto 0.2 % (2-4); Hematocrit 36.8 % (41-53); Hemoglobin 11.8 g/dL (13.5-17.5); Lymphocytes Absolute Auto 1200 /uL (1100-4500); Lymphocytes Percent Auto 8.7 % (25-40); Mean Corpuscular Hemoglobin 23.9 PG (26-34); Mean Corpuscular Volume 74.8 fL (80-100); Monocytes Absolute Auto 500 /uL (0-900); Monocytes Percent Auto 3.4 % (3-14); Neutrophils Absolute Auto 12100 /uL (1500-7000); Platelet Count 307 X10^3/uL (150-400); Red Blood Cell Count 4.93 X10^6/uL (4.5-5.9); Red Cell Distribution Width 15.9 % (11.6-14.8); White Blood Cell Count 13.9 X10^3/uL (4.5-11.0)
[2023-11-03] MEDS: SODIUM CHLORIDE 0.9% 1,000 ML 1000 ML IV ×3 (14:54→18:35)
[2023-11-03] MEDS: ONDANSETRON 4 MG/2 ML INJ IV ×2 (14:55→21:31)
[2023-11-03] MEDS: LORazepam 2 MG/ML INJ IV (14:55)
[2023-11-03 15:01] LABS: Alanine Aminotransferase 21 IU/L (<50); Albumin 4.7 g/dL (3.5-5.0); Albumin Globulin Ratio 1.3 (1.0-2.8); Alkaline Phosphatase 83 U/L (38-126); Aspartate Aminotransferase 43 IU/L (17-59); BUN Creatinine Ratio 22.9 (6-22); Blood Urea Nitrogen 30 mg/dL (9-20); Calcium 9.6 mg/dL (8.4-10.2); Carbon Dioxide 20 mmol/L (22-32); Chloride 99 mmol/L (98-107); Estimated Glomerular Filt Rate > 60 mL/min (>60); Globulin 3.7 g/dL (1.7-4.1); Glucose 336 mg/dL (70-100); Lipase 118 U/L (23-300); Potassium 4.5 mmol/L (3.4-5.1); Sodium 134 mmol/L (137-145); Total Protein 8.4 g/dL (6.3-8.2)
[2023-11-03 15:09] LABS: Ketones (Beta-Hydroxybutyrate) 2.81 mmol/L (<0.27)
[2023-11-03 15:10] LABS: HEMOLYSIS 101 (0-50)
--- NOTE | 2023-11-03 15:23 | PC.NURSE ---
Pt oxygen desated to 76% on RA while RN present in room. Pt repositioned and placed on 4L via NC and recovered to 100% within less than 30 seconds. Provider Gustabo made aware. New verbal orders to hold diluadid at this time.
[2023-11-03 15:44] LABS: Occult Blood Gastric Fluid POSITIVE (NEGATIVE); PH Gastric Fluid 4 pH (1-2)
--- NOTE | 2023-11-03 17:31 | PM.HP.1 ---
History of Present Illness History of Present Illness Date Patient Seen: 11/03/23 Time Patient Seen: 17:31 Chief complaint: vomiting Narrative: From ED doctor: 33-year-old individual with type 1 diabetes, history of gastroparesis, regular marijuana user with vomiting that has been present for almost 24 hours. He is complaining of significant abdominal pain persistent vomiting and looks miserable. Has not been able to keep medications down. He states that with his gastroparesis Ativan, Compazine and IV narcotic are most effective. He does not describe any fevers. There is no black or blood in the emesis. At this point he is essentially dry heaving. Additional information: He was doing well this morning until he became acutely nauseated and began vomiting. Initially he was vomiting bilious material and then it turned somewhat coffee-ground. He does have a history of out ulcer. Denies recent ibuprofen or aspirin use. No recent melena. He also does have epigastric abdominal pain. His pump ran out of insulin sometime this morning and he was on the way to the store to get more insulin to reach charge it when he became acutely ill. He was not sick yesterday. He denies any chest pain, or dyspnea. His ECG was unremarkable. There were no acute changes noted. He was improving with fluids and insulin drip is being started. He was given 2 mg of Ativan in the ED and did become somewhat somnolent but this is improved. [facility] Medical History Chronic lower back pain HTN (hypertension) Hypothyroidism Marijuana use History of MRSA infection History of pneumonia Blurry vision, bilateral Diabetic neuropathy Bipolar disorder with depression Nausea and vomiting Diabetes type 1, uncontrolled Diabetic gastroparesis Surgical History No pertinent past surgical history Family History Mother No known health problems Father No known health problems Social History household members: family Smoking Status: Former smoker alcohol intake: current Meds Home Medications and Allergies Home Medications Medication Instructions Recorded Confirmed Type diphenhydramine HCl 25 mg tablet 25 mg PO BEDTIME PRN Insomnia 07/09/23 10/22/23 History insulin pump syringe 3 mL 10/04/23 10/22/23 History hydroxyzine HCl PO 10/22/23 10/22/23 History levothyroxine 50 mcg tablet 50 mcg PO DAILY #90 tabs 10/22/23 10/22/23 Rx metoclopramide HCl 10 mg tablet 10 mg PO Q8HR PRN nausea and 10/22/23 10/22/23 Rx (Reglan) vomiting #40 tabs metoprolol succinate 50 mg 50 mg PO DAILY 10/22/23 10/22/23 History tablet,extended release 24 hr omeprazole 40 mg capsule,delayed 40 mg PO BID #60 caps 10/22/23 10/22/23 Rx release Allergies Allergy/AdvReac Type Severity Reaction Status Date / Time aspirin [ASPIRIN] Allergy Unknown MAKES ME Verified 11/03/23 13:11 GO DEAF hydrocodone [HYDROCODONE] AdvReac Intermediate VOMITING Verified 11/03/23 13:11 ibuprofen [IBUPROFEN] AdvReac Intermediate HURTS Verified 11/03/23 13:11 KIDNEYS Review of Systems Review of Systems Narrative: All else reviewed and otherwise unremarkable except as noted in the history and physical. Exam Vital Signs (past 8 hours): - 11/03/23 13:08 11/03/23 13:12 11/03/23 14:26 Temperature 97.8 F Pulse Rate 78 Respiratory Rate 18 Blood Pressure 177/108 H 162/114 H Pulse Oximetry 100 Oxygen Delivery Method Room Air Oxygen Flow Rate 11/03/23 14:26 11/03/23 14:30 11/03/23 14:30 Temperature Pulse Rate 84 97 H Respiratory Rate 19 20 Blood Pressure 166/112 H Pulse Oximetry 100 100 Oxygen Delivery Method Oxygen Flow Rate 11/03/23 14:53 11/03/23 14:54 11/03/23 14:54 Temperature Pulse Rate 65 72 Respiratory Rate 23 Blood Pressure 148/100 H 148/100 H Pulse Oximetry 100 Oxygen Delivery Method Oxygen Flow Rate 11/03/23 15:00 11/03/23 15:00 11/03/23 15:14 Temperature Pulse Rate 90 Respiratory Rate 19 Blood Pressure 163/92 H 149/72 H Pulse Oximetry 100 Oxygen Delivery Method Oxygen Flow Rate 11/03/23 15:14 11/03/23 15:15 11/03/23 15:15 Temperature Pulse Rate 98 H 101 H Respiratory Rate 28 H 24 Blood Pressure 142/76 H Pulse Oximetry 100 100 Oxygen Delivery Method Oxygen Flow Rate 11/03/23 15:30 11/03/23 15:31 11/03/23 15:31 Temperature Pulse Rate 91 H 91 H Respiratory Rate 19 19 Blood Pressure 106/69 Pulse Oximetry 100 100 Oxygen Delivery Method Nasal Cannula Oxygen Flow Rate 2 11/03/23 15:45 11/03/23 15:47 11/03/23 16:00 Temperature Pulse Rate 89 Respiratory Rate 20 Blood Pressure 116/63 111/62 Pulse Oximetry 100 Oxygen Delivery Method Oxygen Flow Rate 11/03/23 16:00 11/03/23 16:15 11/03/23 16:15 Temperature Pulse Rate 97 H 107 H Respiratory Rate 18 22 Blood Pressure 132/76 Pulse Oximetry 100 100 Oxygen Delivery Method Nasal Cannula Oxygen Flow Rate 2 11/03/23 16:30 11/03/23 16:30 Temperature 98.1 F Pulse Rate 98 H Respiratory Rate 15 Blood Pressure 125/78 Pulse Oximetry 100 Oxygen Delivery Method Room Air Oxygen Flow Rate Oxygen Delivery Method Room Air Oxygen Flow Rate 2 Narrative Exam Narrative: NAD, alert and oriented, fluent speech, calm. Little somnolent and chronically ill in appearance Normocephalic skull, EOMI, anicteric sclera, symmetric pupils. Oropharynx unremarkable, no droop. Neck supple, midline trachea, no adenopathy. Lungs clear, normal rate and effort. Heart regular, no murmur gallop or rub. Abdomen is soft, non distended and non tender. Extremities are free of edema. Skin is free of rash or lesions. Joints are not swollen or deformed. Judgment appears to be abnormal. Objective ECG Impression: Normal sinus rhythm Left axis deviation Labs 11/03/23 17:47 11/03/23 14:40 Labs: Laboratory Results - last 24 hr 11/03/23 11/03/23 11/03/23 14:39 14:40 15:35 WBC 13.9 H RBC 4.93 Hgb 11.8 L Hct 36.8 L MCV 74.8 L MCH 23.9 L MCHC 32.0 RDW 15.9 H Plt Count 307 Neut % (Auto) 87.0 H Lymph % (Auto) 8.7 L [place] % (Auto) 3.4 Eos % (Auto) 0.2 L Baso % (Auto) 0.7 Neut # (Auto) 85423 H Lymph # (Auto) 1200 [place] # (Auto) 500 Eos # (Auto) 0 Baso # (Auto) 100 VBG pH 7.52 H VBG pCO2 24.8 L VBG pO2 36 VBG HCO3 20 L VBG Total CO2 20 L VBG O2 Saturation 77 H VBG Base Excess -0.9 L Sodium 134 L Potassium 4.5 Chloride 99 Carbon Dioxide 20 L BUN 30 H Creatinine 1.31 H Estimated GFR > 60 BUN/Creatinine Ratio 22.9 H Glucose 336 H Calcium 9.6 Total Bilirubin 1.0 AST 43 ALT 21 Alkaline Phosphatase 83 Total Protein 8.4 H Albumin 4.7 Globulin 3.7 Albumin/Globulin Ratio 1.3 Lipase 118 Gastric Fluid pH 4 H Gastric Occult Blood Positive H Ketones 2.81 H Assessment & Plan Assessment & Plan narrative: 1. Mild DKA, present on admission and active. 2. Volume depletion, present on admission and active. 3. Nausea and gastroparesis, present on admission and active. 4. Somnolence from benzodiazepine, present on admission and active. 5. Coffee-ground emesis without history of GI bleed or recent melena, present on admission and active. Plan: -IV fluid resuscitation -insulin drip and DKA protocol -manage electrolytes -minimal sedating medications -monitor anion gap -monitor hemoglobin and start PPI IV q.12 hours. Full resuscitation Inpatient status, anticipate a 2 midnight stay [facility]ANS is November 04. Time-Based Coding :: 35 min spent with patient and on the chart (including review of chart, obtaining history, exam, reviewing outside data, placing orders, documenting exam and treatment plan, and counseling patient) on 11/02. Quality [facility] - Meds 'Current medications' to include all prescriptions, [id number] products, herbals, cannabis/cannabidiol products, and vitamin/mineral/dietary (nutritional) supplements. I have utilized all available resources to obtain, update, or review the patient?s current medications. [If Yes, STOP here]: Yes
[2023-11-03 17:53] LABS: Lactate (Lactic Acid) 1.8 mmol/L (0.7-2.1)
[2023-11-03 17:55] LABS: Hematocrit 33.3 % (41-53); Hemoglobin 10.5 g/dL (13.5-17.5)
[2023-11-03 18:05] LABS: Troponin I < 0.012 ng/mL (0.01-0.034)
[2023-11-03] MEDS: HYDROMORPHONE 0.5 MG INJ IV ×2 (18:27→21:31)
[2023-11-03] MEDS: SODIUM CHLORIDE 0.45% 1,000 ML 100 ML IV (18:29)
[2023-11-03] MEDS: INSULIN DRIP PREMIX 100 UNIT/100 ML PLAST..BAG 12.247 UNIT IV (18:31)
--- NOTE | 2023-11-03 18:39 | PC.NURSE ---
Patient somnolent upon arrival, admission assessment completed as best as possible.
[2023-11-03] MEDS: PANTOPRAZOLE 40 MG VIAL IV ×2 (18:47→21:21)
[2023-11-03 19:36] LABS: MRSA (Nasal) PCR NOT DETECTED (Not Detect)
[2023-11-03 20:34] LABS: BUN Creatinine Ratio 22.3 (6-22); Blood Urea Nitrogen 27 mg/dL (9-20); Calcium 7.4 mg/dL (8.4-10.2); Carbon Dioxide 14 mmol/L (22-32); Chloride 112 mmol/L (98-107); Estimated Glomerular Filt Rate > 60 mL/min (>60); Glucose 277 mg/dL (70-100); HEMOLYSIS < 15 (0-50); Potassium 3.4 mmol/L (3.4-5.1); Sodium 138 mmol/L (137-145)
[2023-11-03] MEDS: HEPARIN 5,000 UNIT/ML VIAL 5000 UNIT SUBCUT (21:21)
[2023-11-03] MEDS: DEXTROSE 5%-0.45% NS 1,000 ML 125 ML IV (21:24)
[2023-11-03] MEDS: POTASSIUM CHLORIDE IN WATER 10 MEQ/100 ML PIGGYBACK 100 MEQ IV ×2 (22:26→23:27)
[2023-11-04] VITALS (28 sets, daily range): BP systolic 86–149; BP diastolic 51–88; PULSE 72–93; RESP 9–42; TEMP 36.6–37.2; O2SAT 97–99
[2023-11-04] MEDS: DEXTROSE 10 % IN WATER 100 ML 999 ML IV (00:11)
[2023-11-04] MEDS: LORazepam 2 MG/ML INJ 0.5 MG IV ×4 (00:37→20:23)
[2023-11-04] MEDS: HYDROMORPHONE 0.5 MG INJ IV ×7 (02:30→21:34)
[2023-11-04] MEDS: DEXTROSE 5%-0.45% NS 1,000 ML 125 ML IV (05:58)
--- NOTE | 2023-11-04 07:34 | P.PN_ITS ---
Subjective Subjective Interval history: S: A little less nauseated, persistent abdominal pain. No lab draw since last evening due to difficult vena puncture. We will place a midline today for access and labs. Exam Vital Signs (past 8 hours): - 11/04/23 00:00 11/04/23 00:00 11/04/23 01:00 Temperature 98.9 F Pulse Rate 80 83 Respiratory Rate 13 14 Blood Pressure 95/51 L 98/58 L Pulse Oximetry 98 98 Oxygen Delivery Method Oxygen Flow Rate 0 0 11/04/23 01:00 11/04/23 01:11 11/04/23 02:00 Temperature Pulse Rate 84 80 79 Respiratory Rate 13 14 13 Blood Pressure 98/58 L Pulse Oximetry 98 99 Oxygen Delivery Method Oxygen Flow Rate 11/04/23 02:00 11/04/23 03:00 11/04/23 03:00 Temperature Pulse Rate 79 Respiratory Rate 13 Blood Pressure 102/60 100/63 Pulse Oximetry 98 Oxygen Delivery Method Oxygen Flow Rate 0 0 11/04/23 04:00 11/04/23 04:00 11/04/23 05:00 Temperature 98.5 F Pulse Rate 78 72 Respiratory Rate 13 11 L Blood Pressure 86/51 L Pulse Oximetry 99 98 Oxygen Delivery Method Oxygen Flow Rate 0 11/04/23 05:00 11/04/23 06:00 11/04/23 06:00 Temperature Pulse Rate 80 Respiratory Rate 14 Blood Pressure 94/56 L 116/76 Pulse Oximetry 98 Oxygen Delivery Method Oxygen Flow Rate 0 0 11/04/23 07:00 Temperature Pulse Rate Respiratory Rate Blood Pressure Pulse Oximetry Oxygen Delivery Method Room Air Oxygen Flow Rate Oxygen Delivery Method Room Air Oxygen Flow Rate 0 Narrative Exam Narrative: NAD, alert and oriented. Fluent speech. Flat affect, appears to be somewhat uncomfortable. Lungs are clear, normal rate and effort. Heart is regular, no murmur gallop or rub. Abdomen is soft, non distended. Tender in the epigastric region. Extremities are free of edema. Objective Labs 11/03/23 17:47 11/04/23 10:50 Labs: Laboratory Results - last 24 hr 11/03/23 11/03/23 11/03/23 14:39 14:40 14:45 WBC 13.9 H RBC 4.93 Hgb 11.8 L Hct 36.8 L MCV 74.8 L MCH 23.9 L MCHC 32.0 RDW 15.9 H Plt Count 307 Neut % (Auto) 87.0 H Lymph % (Auto) 8.7 L [place] % (Auto) 3.4 Eos % (Auto) 0.2 L Baso % (Auto) 0.7 Neut # (Auto) 31516 H Lymph # (Auto) 1200 [place] # (Auto) 500 Eos # (Auto) 0 Baso # (Auto) 100 VBG pH 7.52 H VBG pCO2 24.8 L VBG pO2 36 VBG HCO3 20 L VBG Total CO2 20 L VBG O2 Saturation 77 H VBG Base Excess -0.9 L Sodium 134 L Potassium 4.5 Chloride 99 Carbon Dioxide 20 L BUN 30 H Creatinine 1.31 H Estimated GFR > 60 BUN/Creatinine Ratio 22.9 H Glucose 336 H Lactate 1.8 Calcium 9.6 Total Bilirubin 1.0 AST 43 ALT 21 Alkaline Phosphatase 83 Troponin I < 0.012 Total Protein 8.4 H Albumin 4.7 Globulin 3.7 Albumin/Globulin Ratio 1.3 Lipase 118 Nasal Screen MRSA (PCR) Gastric Fluid pH Gastric Occult Blood Ketones 2.81 H 11/03/23 11/03/23 11/03/23 15:35 17:47 18:10 WBC RBC Hgb 10.5 L Hct 33.3 L MCV MCH MCHC RDW Plt Count Neut % (Auto) Lymph % (Auto) [place] % (Auto) Eos % (Auto) Baso % (Auto) Neut # (Auto) Lymph # (Auto) [place] # (Auto) Eos # (Auto) Baso # (Auto) VBG pH VBG pCO2 VBG pO2 VBG HCO3 VBG Total CO2 VBG O2 Saturation VBG Base Excess Sodium Potassium Chloride Carbon Dioxide BUN Creatinine Estimated GFR BUN/Creatinine Ratio Glucose Lactate Calcium Total Bilirubin AST ALT Alkaline Phosphatase Troponin I Total Protein Albumin Globulin Albumin/Globulin Ratio Lipase Nasal Screen MRSA (PCR) Not detected Gastric Fluid pH 4 H Gastric Occult Blood Positive H Ketones 11/03/23 20:01 WBC RBC Hgb Hct MCV MCH MCHC RDW Plt Count Neut % (Auto) Lymph % (Auto) [place] % (Auto) Eos % (Auto) Baso % (Auto) Neut # (Auto) Lymph # (Auto) [place] # (Auto) Eos # (Auto) Baso # (Auto) VBG pH VBG pCO2 VBG pO2 VBG HCO3 VBG Total CO2 VBG O2 Saturation VBG Base Excess Sodium 138 Potassium 3.4 Chloride 112 H Carbon Dioxide 14 L BUN 27 H Creatinine 1.21 Estimated GFR > 60 BUN/Creatinine Ratio 22.3 H Glucose 277 H Lactate Calcium 7.4 L Total Bilirubin AST ALT Alkaline Phosphatase Troponin I Total Protein Albumin Globulin Albumin/Globulin Ratio Lipase Nasal Screen MRSA (PCR) Gastric Fluid pH Gastric Occult Blood Ketones PFSH Medical History Chronic lower back pain HTN (hypertension) Hypothyroidism Marijuana use History of MRSA infection History of pneumonia Blurry vision, bilateral Diabetic neuropathy Bipolar disorder with depression Nausea and vomiting Diabetes type 1, uncontrolled Diabetic gastroparesis Surgical History No pertinent past surgical history Family History Mother No known health problems Father No known health problems Social History household members: family Smoking Status: Former smoker alcohol intake: current Assessment & Plan Assessment & Plan narrative: 1. Mild DKA, present on admission and resolved. Gap is closed this morning. 2. Volume depletion, present on admission and active. 3. Nausea and gastroparesis, present on admission and active. 4. Somnolence from benzodiazepine, present on admission and active. 5. Coffee-ground emesis without history of GI bleed or recent melena, present on admission and active. Plan: -Midline for access and labs this AM -Continue IV fluid -transition from insulin drip to subcutaneous this morning. -manage electrolytes -monitor hemoglobin and start PPI IV q.12 hours. Full resuscitation Inpatient status, anticipate a 2 midnight stay HANS is November 04. Time-Based Coding :: [TOTAL MINUTES] spent with patient and on the chart (including review of chart, obtaining history, exam, reviewing outside data, placing orders, documenting exam and treatment plan, and counseling patient) on [DATE].
[2023-11-04] MEDS: HEPARIN 5,000 UNIT/ML VIAL 5000 UNIT SUBCUT (08:15)
[2023-11-04] MEDS: PANTOPRAZOLE 40 MG VIAL IV ×2 (08:15→20:22)
[2023-11-04 11:09] LABS: BUN Creatinine Ratio 19.6 (6-22); Blood Urea Nitrogen 22 mg/dL (9-20); Calcium 7.6 mg/dL (8.4-10.2); Carbon Dioxide 19 mmol/L (22-32); Chloride 107 mmol/L (98-107); Estimated Glomerular Filt Rate > 60 mL/min (>60); Glucose 240 mg/dL (70-100); HEMOLYSIS 21 (0-50); Potassium 3.9 mmol/L (3.4-5.1); Sodium 134 mmol/L (137-145)
[2023-11-04] MEDS: INSULIN GLARGINE 100 UNIT/ML 3ML PEN 15 UNIT SUBCUT (11:40)
[2023-11-04] MEDS: ACETAMINOPHEN 325 MG TABLET 650 MG PO (12:41)
--- NOTE | 2023-11-04 15:01 | CM.DANOTE ---
Initial DCP Assessment Patient is a 33 y/o male admitted on 11/03/23 with mild DKA and N/V. Insurance: [employer] Medicaid PCP: James Jung Reviewed chart and spoke with patient at bedside. Patient states he is independent with ADLs and lives at home with family. Patient reports he has a difficult time making and keeping appointments to manage his diabetes. He states his mental health is the biggest barrier to this and would like information re: therapy services available. Plan: SW will provide possible options under his Medicaid plan and attempt to determine if a [employer] CM has been assigned to his case. Will also notify Acquisition Associate with Dr. Jung's office to f/u post d/c. GORDON Bond Discharge Planning/Care Management CM Discharge Assessment Start: 11/04/23 14:56 Freq: Status: Active Protocol: Document 11/04/23 14:57 KG (Rec: 11/04/23 15:01 KG [id number]) Discharge Planning Assessment Assigned Tool Engineer Concha Espinosa DPOA/Assigned Designee Name Valentin Noble Contact Information [phone] Advance Directives? No Advance Directives on File No History Provided By Patient,Medical Record Expected Length of Stay 2 Has Patient been admitted in last 30 No days? Prior Living Arrangements House Household Members family Type of transporation used prior to Drives own vehicle admit Independent with ADL's Yes Is patient alert and oriented? Yes Caregiver for Another No Comment Patient has left foot drop which he wears a brace for. Barriers to Discharge No Discharge Plan Home Transportation Arrangement Family to provide transport. Referrals Initiated None needed Additional Comment Pending needs. No d/c needs identified in AM rounds on 02-10. Inpatient Status as of 11/03/23
[2023-11-04] MEDS: SODIUM CHLORIDE 0.45% 1,000 ML 100 ML IV (18:08)
[2023-11-04] MEDS: diphenhydrAMINE 25 MG TABLET PO (22:36)
[2023-11-05] VITALS (24 sets, daily range): BP systolic 134–161; BP diastolic 88–105; PULSE 79–96; RESP 11–52; TEMP 36.6–37.2; O2SAT 76–98
[2023-11-05] MEDS: HYDROMORPHONE 0.5 MG INJ IV ×7 (00:51→19:48)
[2023-11-05] MEDS: SODIUM CHLORIDE 0.45% 1,000 ML 100 ML IV (02:18)
[2023-11-05] MEDS: LORazepam 2 MG/ML INJ 0.5 MG IV ×4 (03:58→19:49)
[2023-11-05 05:32] LABS: BUN Creatinine Ratio 10.8 (6-22); Blood Urea Nitrogen 11 mg/dL (9-20); Carbon Dioxide 24 mmol/L (22-32); Chloride 105 mmol/L (98-107); Estimated Glomerular Filt Rate > 60 mL/min (>60); Glucose 102 mg/dL (70-100); HEMOLYSIS < 15 (0-50); Potassium 3.7 mmol/L (3.4-5.1); Sodium 133 mmol/L (137-145)
[2023-11-05] MEDS: PANTOPRAZOLE 40 MG VIAL IV (08:47)
--- NOTE | 2023-11-05 10:29 | CM.DPNOTE ---
Addendum entered by Ashlyn Jaeger, GORDON 11/05/23 14:55: ADD: Spoke with Mickey Templeton RN case manager P [phone] who can follow patient for 30 days as part of their care transition program. [facility] will then refer patient to ongoing, buttermaker helper case management services through [facility]. Addendum entered by Ashlyn Mil, DATA BASE ADMINISTRATOR 11/05/23 13:22: ADD: Provided patient with a list of in network ([facility] PACK[facility]) MH providers in [place] and [facility]. In addition, made referral to [employer], a [employer] MH support agency for those 11-33 yo. Patient states appreciation. Patient asking today about being referred to the cutting inspector at . Updated SARAH Worthington who will reach out to cutting inspector Maye Tamez. Original Note: DCP Cont Placed call to SARAH Templetoninternet marketing consultant with [facility] P [phone]; had to leave detailed message with patient's information. Requested CB to discuss patient and request ongoing outpatient case management. CM team following closely. JW
--- NOTE | 2023-11-05 14:23 | DIET.CONS ---
Dietary Consultation Note Admission Date: 11/03/2023 17:31 Assessment: 33 y M admitted for N/V, mild DKA. Nutrition screened d/t diabetes. Met w/ pt at bedside. Pt interested in establishing with art educator and endo. Sees PCP at [facility]. Currently doesn't have CGM now. [facility] connected w/ pt. Nutrition Diagnosis: Altered nutrition related lab values r/t endocrine dysfunction aeb a1c 8.0 Interventions: Initiated process to obtain referral from PCP for [facility]. Discussed obtaining referral for endo Coordinated of care with art educator Monitoring/Evaluations: BG, f/u as needed Ht: 177.8 cm Wt: 84.2 kg BMI: 25.9 Last BM: () MNA: 14 Jimbo Score: 21 Diet: 11/05/23 Lunch Carbohydrate Consistent Diet Diet Modifications: May Advance Diet as Tolerated: No Carbohydrate level: Medium (3 CHO) Reflex DM orders: No Food Texture: Level 7 - Regular Liquid Consistency: Level 0 - Thin Labs: RBC 4.93 X10^6/uL (4.5-5.9) 11/03/23 14:40 Hgb 10.5 g/dL (13.5-17.5) L 11/03/23 17:47 Hct 33.3 % (41-53) L 11/03/23 17:47 Creatinine 1.02 mg/dL (0.66-1.25) 11/05/23 05:05 Hemoglobin A1c 8.0 % (4.0-6.0) H 11/04/23 09:45 Lactate 1.8 mmol/L (0.7-2.1) 11/03/23 14:45 Electronically Signed by: Julia Márquez 11/05/23 14:23 Clinical Dietitian [address] [address]
--- NOTE | 2023-11-05 14:43 | PM.PN.1 ---
Subjective Subjective Date Patient Seen: 11/05/23 Time Patient Seen: 09:38 Interval history: 33-year-old individual with type 1 diabetes, history of gastroparesis, regular marijuana user with vomiting that has been present for almost 24 hours. He is complaining of significant abdominal pain persistent vomiting and looks miserable. Has not been able to keep medications down. He states that with his gastroparesis Ativan, Compazine and IV narcotic are most effective. He does not describe any fevers. There is no black or blood in the emesis. At this point he is essentially dry heaving. He was doing well this morning until he became acutely nauseated and began vomiting. Initially he was vomiting bilious material and then it turned somewhat coffee-ground. He does have a history of out ulcer. Denies recent ibuprofen or aspirin use. No recent melena. He also does have epigastric abdominal pain. His pump ran out of insulin sometime this morning and he was on the way to the store to get more insulin to reach charge it when he became acutely ill. He was not sick yesterday. He denies any chest pain, or dyspnea. His ECG was unremarkable. There were no acute changes noted. He was improving with fluids and insulin drip is being started. Interval history: The patient notes ongoing right-sided abdominal pain, and persistent nausea without vomiting. Exam Vital Signs (past 8 hours): - 11/05/23 07:00 11/05/23 07:31 11/05/23 07:31 Temperature Pulse Rate 96 H 89 Respiratory Rate 52 H 14 Blood Pressure 155/88 H Pulse Oximetry 97 97 11/05/23 07:32 11/05/23 07:32 11/05/23 07:35 Temperature 98 F Pulse Rate 86 Respiratory Rate 21 Blood Pressure 155/99 H 155/88 H Pulse Oximetry 96 11/05/23 08:00 11/05/23 09:00 11/05/23 10:34 Temperature Pulse Rate 82 84 Respiratory Rate 14 11 L Blood Pressure Pulse Oximetry 96 96 82 L Oxygen Delivery Method Room Air Oxygen Flow Rate 2 Narrative Exam Narrative: NAD, alert and oriented. Fluent speech. Flat affect, appears to be somewhat uncomfortable. Lungs are clear, normal rate and effort. Heart is regular, no murmur gallop or rub. Abdomen is soft, non distended. Tender in the epigastric region. Extremities are free of edema. Objective Labs 11/03/23 17:47 11/05/23 05:05 Labs: Laboratory Results - last 24 hr 11/05/23 05:05 Sodium 133 L Potassium 3.7 Chloride 105 Carbon Dioxide 24 BUN 11 Creatinine 1.02 Estimated GFR > 60 BUN/Creatinine Ratio 10.8 Glucose 102 H D Calcium 8.0 L PFSH Medical History Chronic lower back pain HTN (hypertension) Hypothyroidism Marijuana use History of MRSA infection History of pneumonia Blurry vision, bilateral Diabetic neuropathy Bipolar disorder with depression Nausea and vomiting Diabetes type 1, uncontrolled Diabetic gastroparesis Surgical History No pertinent past surgical history Family History Mother No known health problems Father No known health problems Social History household members: family Smoking Status: Former smoker alcohol intake: current Assessment & Plan Assessment & Plan narrative: 1. Mild DKA, present on admission and resolved. 2. Volume depletion, present on admission and active. 3. Nausea and gastroparesis, present on admission and active. 4. Somnolence from benzodiazepine, present on admission and resolved. 5. Coffee-ground emesis without history of GI bleed or recent melena, present on admission and active. 6. Diabetes mellitus, type 1 7. Bipolar disorder 8. Hypothyroidism Plan: -Lantus insulin (pump not working) 15 units daily -Continue IV fluid -manage electrolytes -monitor hemoglobin and continue PPI IV q.12 hours. -zolpidem nightly per routine Full resuscitation Inpatient status, anticipate a 2 midnight stay HANS is November 05. Time-Based Coding :: [TOTAL MINUTES] spent with patient and on the chart (including review of chart, obtaining history, exam, reviewing outside data, placing orders, documenting exam and treatment plan, and counseling patient) on [DATE].
[2023-11-05] MEDS: METOPROLOL ER 50 MG TABLET PO (16:54)
[2023-11-05] MEDS: LEVOTHYROXINE 50 MCG TABLET PO (16:54)
[2023-11-05] MEDS: INSULIN LISPRO 100 UNIT/ML 3ML VIAL SUBCUT ×2 (17:02→21:11)
[2023-11-05] MEDS: ZOLPIDEM 5 MG TABLET PO (21:10)
[2023-11-05] MEDS: PANTOPRAZOLE DR 40 MG TABLET PO (21:10)
[2023-11-05] MEDS: ACETAMINOPHEN 325 MG TABLET 650 MG PO (21:10)
[2023-11-05] MEDS: INSULIN GLARGINE 100 UNIT/ML 3ML PEN 15 UNIT SUBCUT (21:11)
[2023-11-06] VITALS (14 sets, daily range): BP systolic 146–160; BP diastolic 94–105; PULSE 68–79; RESP 8–34; TEMP 36.6; O2SAT 97
[2023-11-06] MEDS: HYDROMORPHONE 0.5 MG INJ IV ×2 (01:00→06:07)
[2023-11-06 04:52] LABS: Hematocrit 31.6 % (41-53); Mean Corpuscular HGB Conc 31.8 % (30-36); Mean Corpuscular Hemoglobin 23.6 PG (26-34); Mean Corpuscular Volume 74.4 fL (80-100); Platelet Count 245 X10^3/uL (150-400); Red Blood Cell Count 4.25 X10^6/uL (4.5-5.9); Red Cell Distribution Width 15.2 % (11.6-14.8); White Blood Cell Count 5.7 X10^3/uL (4.5-11.0)
[2023-11-06] MEDS: PANTOPRAZOLE DR 40 MG TABLET PO (06:07)
[2023-11-06] MEDS: LEVOTHYROXINE 50 MCG TABLET PO (06:07)
[2023-11-06] MEDS: INSULIN LISPRO 100 UNIT/ML 3ML VIAL SUBCUT ×2 (08:20→11:48)
[2023-11-06] MEDS: METOPROLOL ER 50 MG TABLET PO (08:20)
[2023-11-06] MEDS: ACETAMINOPHEN 325 MG TABLET 650 MG PO (08:52)
[2023-11-06] MEDS: ONDANSETRON 4 MG/2 ML INJ IV (09:50)
[2023-11-06] MEDS: LORazepam 2 MG/ML INJ 0.5 MG IV (10:13)
--- NOTE | 2023-11-06 12:44 | PM.DS.1 ---
History of Present Illness History of Present Illness Date Patient Seen: 11/06/23 Time Patient Seen: 09:40 Chief complaint: vomiting Narrative: 33-year-old individual with type 1 diabetes, history of gastroparesis, regular marijuana user with vomiting that has been present for almost 24 hours. He is complaining of significant abdominal pain persistent vomiting and looks miserable. Has not been able to keep medications down. He states that with his gastroparesis Ativan, Compazine and IV narcotic are most effective. He does not describe any fevers. There is no black or blood in the emesis. At this point he is essentially dry heaving. He was doing well this morning until he became acutely nauseated and began vomiting. Initially he was vomiting bilious material and then it turned somewhat coffee-ground. He does have a history of out ulcer. Denies recent ibuprofen or aspirin use. No recent melena. He also does have epigastric abdominal pain. His pump ran out of insulin sometime this morning and he was on the way to the store to get more insulin to reach charge it when he became acutely ill. He was not sick yesterday. He denies any chest pain, or dyspnea. His ECG was unremarkable. There were no acute changes noted. He was improving with fluids and insulin drip is being started. Discharge Providers Provider Date of admission: 11/03/23 17:31 Discharge Date: 11/06/23 Primary care physician: James Jung DO Discharge provider: Onesimo Faye MD Summary Hospital Course Discharge Diagnosis: 1. Mild DKA, present on admission and resolved. 2. Volume depletion, present on admission and active. 3. Nausea and gastroparesis, present on admission and active. 4. Somnolence from benzodiazepine, present on admission and resolved. 5. Coffee-ground emesis without history of GI bleed or recent melena, present on admission and active. 6. Diabetes mellitus, type 1 7. Bipolar disorder 8. Hypothyroidism Hospital Course: The patient was admitted and treated with IV insulin with resolution of mild DKA, and transition to subcutaneous Lantus insulin. He was managed with IV fluids and IV pain medication with antiemetics, and improved significantly over subsequent days. He was not requiring IV fluids and was able to maintain oral intake. No other issues arose in the patient felt that he would be able to manage at home, with close outpatient follow-up advised. Status at Discharge Cognitive/behavioral status at discharge: oriented Functional status at discharge: independent ambulation Overall status at discharge: patient is progressing back to baseline Time Spent with Patient Time spent: Less than 30 minutes Exam Vital Signs (past 8 hours): - 11/06/23 05:00 11/06/23 06:00 11/06/23 07:00 Temperature Pulse Rate 71 79 71 Respiratory Rate 16 34 H 8 L Blood Pressure Pulse Oximetry 11/06/23 07:54 11/06/23 07:54 11/06/23 07:58 Temperature 97.9 F Pulse Rate 68 Respiratory Rate 11 L Blood Pressure 160/105 H Pulse Oximetry 97 11/06/23 08:20 11/06/23 08:40 Temperature Pulse Rate 75 78 Respiratory Rate Blood Pressure 160/105 H 160/105 H Pulse Oximetry Oxygen Delivery Method Room Air Oxygen Flow Rate 2 Narrative Exam Narrative: NAD, alert and oriented. Fluent speech. Blunted affect, appears to be comfortable. Lungs are clear, normal rate and effort. Heart is regular, no murmur gallop or rub. Abdomen is soft, non distended. Tender in the epigastric region. Extremities are free of edema. Objective Labs 11/06/23 04:39 11/05/23 05:05 Labs: Laboratory Results - last 24 hr 11/06/23 04:39 WBC 5.7 RBC 4.25 L Hgb 10.0 L Hct 31.6 L MCV 74.4 L MCH 23.6 L MCHC 31.8 RDW 15.2 H Plt Count 245 PFSH Medical History Chronic lower back pain HTN (hypertension) Hypothyroidism Marijuana use History of MRSA infection History of pneumonia Blurry vision, bilateral Diabetic neuropathy Bipolar disorder with depression Nausea and vomiting Diabetes type 1, uncontrolled Diabetic gastroparesis Surgical History No pertinent past surgical history Family History Mother No known health problems Father No known health problems Social History household members: family Smoking Status: Former smoker alcohol intake: current Discharge Plan Discharge Plan Patient Disposition: Home Provider Discharge Comment: Followup with Dr. Jung this week Discharge orders & Medications Prescriptions: Continued metoprolol succinate 50 mg tablet extended release 24 hr 50 mg PO DAILY hydroxyzine HCl PO metoclopramide HCl [Reglan] 10 mg tablet 10 mg PO Q8HR PRN (Reason: nausea and vomiting) Qty: 40 2RF omeprazole 40 mg capsule,delayed release(DR/EC) 40 mg PO BID Qty: 60 3RF levothyroxine 50 mcg tablet 50 mcg PO DAILY Qty: 90 1RF diphenhydramine HCl 25 mg Tablet 25 mg PO BEDTIME PRN (Reason: Insomnia) (DME) insulin pump syringe 3 mL Misc MISCELLANEOUS Rx Instructions: patient uses insulin pump zolpidem [Ambien] 5 mg Tablet 5 mg PO BEDTIME PRN (Reason: Insomnia) Follow up/Referrals: James Jung, [Primary Care Provider] - Visit Report/Discharge Packet Stand Alone Forms: Patient Portal/API, Stroke Signs & Symptoms Discharge Data Primary Care Provider: James Jung Quality MIPS - Admit I confirm the patient?s Advance Care Plan is present, Code status is documented, Surrogate decision maker is in patient?s record [If Yes, STOP here]: Yes MIPS - Meds 'Current medications' to include all prescriptions, [id number] products, herbals, cannabis/cannabidiol products, and vitamin/mineral/dietary (nutritional) supplements. I have utilized all available resources to obtain, update, or review the patient?s current medications. [If Yes, STOP here]: Yes MIPS - DC The patient has a history of heart transplant or Left Ventricular Assist Device (LVAD). If yes, STOP here.: No The patient has current or prior documentation of left ventricular ejection fraction (LVEF) less than or equal to 40%, or moderate or severely depressed left ventricular systolic function.: No A. The patient was prescribed or already taking an Angiotensin-Converting Enzyme (CHEYENNE) Inhibitor, or Angiotensin Receptor Jo (ARB).: No B. The patient was prescribed or already taking a beta-jo. [If Yes to Both A & B, STOP here]: No Patient not prescribed/taking CHEYENNE or ARB, no reason given.: No Patient not prescribed/taking beta-jo, no reason given.: No PROFEE Charge Codes Discharge inpatient/observation: [id number]
--- NOTE | 2023-11-06 13:10 | CM.DPC ---
DCP Cont. Reviewed EMR and team rounds for status updates. Pt has been medically cleared for home d/c today, his monther will transport him home. No further d/c needs identified for assistance at this time.
== END 2023-11-06 13:22 | disposition home or self-care (01) | DRG 638 ==
LOC: ED 13:51 → AC 17:32 → ICU 17:44
PROVIDERS: Internal Medicine; Admitting Provider Hospitalist; Emergency Provider Emergency Medicine; PCP Family Medicine; Referring Provider Emergency Medicine; Visit Provider Hospitalist
DX: E10.10 Type 1 diabetes mellitus with ketoacidosis without coma (principal); K92.0 Hematemesis; E10.43 Type 1 diabetes mellitus with diabetic autonomic (poly)neuropathy; K31.84 Gastroparesis; E86.9 Volume depletion, unspecified; F31.9 Bipolar disorder, unspecified; E03.9 Hypothyroidism, unspecified; I10 Essential (primary) hypertension; Z96.41 Presence of insulin pump (external) (internal); Z87.891 Personal history of nicotine dependence
CPT/HCPCS: 36415; 36592; 80048; 80053; 82009; 82271; 82805; 82962; 83036; 83605; 83690; 83986; 84484; 85014; 85018; 85025; 85027; 87797; 93005; 93010; 96361; 96374; 96375; 99284; 99291; J0780; J1170; J1642; J1644; J1815; J2060; J2405; J2470; J7050

== ENCOUNTER 2023-11-19 23:51 | Emergency (ER) | payer OTHER, MEDICAID, SELFPAY ==
[2023-11-03 17:36] VITALS: BMI 25.9
[2023-11-20] VITALS (10 sets, daily range): BP systolic 141–187; BP diastolic 98–118; PULSE 80–95; RESP 18–21; TEMP 34.5–36.7; O2SAT 92–100; BMI 25.1
[2023-11-20] MEDS: PROCHLORPERAZINE 10 MG/2 ML VIAL IV (00:01)
[2023-11-20] MEDS: SODIUM CHLORIDE 0.9% 1,000 ML 1000 ML IV (00:02)
[2023-11-20 00:41] LABS: pH VBG 7.49 (7.33-7.43)
[2023-11-20 00:50] LABS: Add Manual Diff / Slide Review NO; Basophils Absolute Auto 100 /uL (0-100); Eosinophils Absolute Auto 0 /uL (0-450); Eosinophils Percent Auto 0.2 % (2-4); Hematocrit 37.6 % (41-53); Hemoglobin 12.2 g/dL (13.5-17.5); Lymphocytes Absolute Auto 1100 /uL (1100-4500); Lymphocytes Percent Auto 11.5 % (25-40); Mean Corpuscular HGB Conc 32.5 % (30-36); Mean Corpuscular Hemoglobin 23.9 PG (26-34); Mean Corpuscular Volume 73.5 fL (80-100); Monocytes Absolute Auto 500 /uL (0-900); Monocytes Percent Auto 4.9 % (3-14); Neutrophils Absolute Auto 8200 /uL (1500-7000); Neutrophils Percent Auto 82.4 % (50-75); Platelet Count 328 X10^3/uL (150-400); Red Blood Cell Count 5.11 X10^6/uL (4.5-5.9); Red Cell Distribution Width 15.8 % (11.6-14.8); White Blood Cell Count 9.9 X10^3/uL (4.5-11.0)
[2023-11-20 01:03] LABS: Lactate (Lactic Acid) 2.1 mmol/L (0.7-2.1)
[2023-11-20 01:05] LABS: Alanine Aminotransferase 20 IU/L (<50); Albumin 4.7 g/dL (3.5-5.0); Albumin Globulin Ratio 1.3 (1.0-2.8); Alkaline Phosphatase 94 U/L (38-126); Aspartate Aminotransferase 26 IU/L (17-59); Bilirubin Total 0.7 mg/dL (0.2-1.3); Blood Urea Nitrogen 25 mg/dL (9-20); Calcium 9.7 mg/dL (8.4-10.2); Carbon Dioxide 23 mmol/L (22-32); Chloride 100 mmol/L (98-107); Estimated Glomerular Filt Rate > 60 mL/min (>60); Ethanol (ETOH) < 10 mg/dL; Globulin 3.7 g/dL (1.7-4.1); Glucose 354 mg/dL (70-100); HEMOLYSIS < 15 (0-50); Lipase 73 U/L (23-300); Magnesium 2.1 mg/dL (1.6-2.3); Phosphorous 1.5 mg/dL (2.5-4.5); Potassium 4.1 mmol/L (3.4-5.1); Sodium 135 mmol/L (137-145); Total Protein 8.4 g/dL (6.3-8.2)
[2023-11-20 01:11] LABS: Ketones (Beta-Hydroxybutyrate) 1.31 mmol/L (<0.27)
--- NOTE | 2023-11-20 01:17 | ED_ITS ---
HPI - General Adult General Chief complaint: Abdominal Pain Stated complaint: N/V Time Seen by Provider: 11/19/23 23:52 Source: patient and EMS Mode of arrival: EMS History of Present Illness HPI narrative: 33-year-old male. History of insulin-dependent diabetes, hypothyroid, gastroparesis, hypertension another chronic medical issues she was who arrives in the emergency department for evaluation of nausea and vomiting abdominal pain. This is consistent with a prior history of gastroparesis. He states that he thinks that his continuous blood glucose monitor/pump was not working. He did not have the parts for replacement. He was not contacted his primary doctor. He was not checked his blood sugars in weeks. He has Reglan and Ativan at home for his abdominal discomfort but it has not been working. He did receive Zofran by EMS prior to arrival. Related Data Home Medications Medication Instructions Recorded Confirmed diphenhydramine HCl 25 mg tablet 25 mg PO BEDTIME PRN Insomnia 07/09/23 11/15/23 insulin pump syringe 3 mL 10/04/23 11/15/23 metoprolol succinate 50 mg 50 mg PO DAILY 10/22/23 11/15/23 tablet,extended release 24 hr zolpidem 5 mg tablet (Ambien) 5 mg PO BEDTIME PRN Insomnia 11/05/23 11/15/23 insulin regular human 100 unit/mL IM 11/15/23 11/15/23 injection solution (Humulin R Regular U-100 Insulin) Previous Rx's Medication Instructions Recorded levothyroxine 50 mcg tablet 50 mcg PO DAILY #90 tabs 10/22/23 metoclopramide HCl 10 mg tablet 10 mg PO Q8HR PRN nausea and 10/22/23 (Reglan) vomiting #40 tabs omeprazole 40 mg capsule,delayed 40 mg PO BID #60 caps 10/22/23 release hydroxyzine HCl 10 mg tablet 10 mg PO TID PRN anxiety #84 tabs 11/08/23 lorazepam 1 mg tablet 1 mg PO BID PRN nausea and 11/15/23 vomiting #30 tabs paroxetine HCl 10 mg tablet 10 mg PO DAILY #30 tabs 11/15/23 sucralfate 1 gram tablet (Carafate) 1 g PO BID #60 tabs 11/15/23 Allergies Allergy/AdvReac Type Severity Reaction Status Date / Time aspirin [ASPIRIN] Allergy Unknown MAKES ME Verified 11/15/23 15:03 GO DEAF hydrocodone [HYDROCODONE] AdvReac Intermediate VOMITING Verified 11/15/23 15:03 ibuprofen [IBUPROFEN] AdvReac Intermediate HURTS Verified 11/15/23 15:03 KIDNEYS Review of Systems Review of Systems ROS Unobtainable: All systems reviewed & are unremarkable except as noted in HPI and below Patient History Medical History Generalized anxiety disorder Compression fracture Chronic lower back pain HTN (hypertension) Hypothyroidism Marijuana use History of MRSA infection History of pneumonia Blurry vision, bilateral Diabetic neuropathy Bipolar disorder with depression Nausea and vomiting Diabetes type 1, uncontrolled Diabetic gastroparesis Surgical History No pertinent past surgical history Family History Mother No known health problems Father No known health problems Social History household members: family Smoking Status: Former smoker alcohol intake: current Smoking Status: Former smoker alcohol intake frequency: holidays/special occasions only Alcohol type: hard liquor Substance Use Type: marijuana Exam Initial Vital Signs Initial Vital Signs: Vital Signs Temperature 94.1 F L 11/20/23 00:00 Pulse Rate 95 H 11/20/23 00:00 Respiratory Rate 21 11/20/23 00:00 Blood Pressure 187/115 H 11/20/23 00:00 Pulse Oximetry 100 11/20/23 00:00 Oxygen Delivery Method Room Air 11/20/23 00:00 Const General: other ( Chronically ill-appearing) [facility] Head: normal to inspection and normocephalic Resp Effort & Inspection: normal respiratory effort Auscultation: clear to auscultation bilaterally Cardio Rate: regular rate Rhythm: regular rhythm GI Inspection: non-distended Palpation: tender Skin General: no rashes or lesions noted Neuro General: patient alert, patient awake and moves all extremities Course Orders Ordered: ED Orders 11/19/23 23:52 VBG [Venous Blood Gas] STAT 11/19/23 23:53 Complete Blood Count AUTO DIFF Stat Comprehensive Metabolic Panel Stat Ethanol (ETOH) Stat Ketones (Beta-Hydroxybutyrate) Stat Lactate (Lactic Acid) Stat Lipase Stat Magnesium Stat Phosphorous Stat Procalcitonin Stat 11/20/23 00:36 pH VBG Routine 11/20/23 01:23 Urine Microscopic Stat Discontinued Medications Sodium Chloride (Normal Saline 0.9%) 1,000 mls @ 1,000 mls/hr IV BOLUS ONE Stop: 11/20/23 00:51 Last Infusion: 11/20/23 01:06 Dose: Infused Documented By: Admin: 11/20/23 00:02 Dose: 1,000 mls/hr Documented By: KELLE Acetaminophen (Ofirmev) 1,000 mg in 100 mls @ 400 mls/hr IV NOW ONE Stop: 11/20/23 01:37 Last Infusion: 11/20/23 01:45 Dose: Infused Documented By: Admin: 11/20/23 01:30 Dose: 400 mls/hr Documented By: FRANCISCA Pantoprazole Sodium (Pantoprazole 40 Mg Vial) 40 mg IV NOW ONE Stop: 11/20/23 01:24 Last Admin: 11/20/23 01:28 Dose: 40 mg Documented By: FRANCISCA Prochlorperazine (Prochlorperazine 10 Mg/2 Ml Vial) 10 mg IV NOW ONE Stop: 11/19/23 23:56 Last Admin: 11/20/23 00:01 Dose: 10 mg Documented By: KELLE Vital Signs Vital signs: Vital Signs - 8 hr 11/20/23 00:00 11/20/23 00:16 11/20/23 00:16 Temperature 94.1 F L Pulse Rate 95 H 84 Respiratory Rate 21 Blood Pressure 187/115 H 186/112 H Pulse Oximetry 100 98 Oxygen Delivery Method Room Air 11/20/23 00:30 11/20/23 00:41 11/20/23 00:41 Temperature Pulse Rate 80 82 Respiratory Rate Blood Pressure 176/118 H Pulse Oximetry 92 99 Oxygen Delivery Method Room Air 11/20/23 00:42 11/20/23 01:00 11/20/23 01:00 Temperature 98.0 F Pulse Rate 84 89 Respiratory Rate 20 Blood Pressure 176/118 H 177/99 H Pulse Oximetry 95 96 Oxygen Delivery Method Room Air Room Air 11/20/23 01:30 11/20/23 01:30 11/20/23 02:00 Temperature Pulse Rate 83 80 Respiratory Rate Blood Pressure 153/105 H Pulse Oximetry 99 95 Oxygen Delivery Method 11/20/23 02:00 10/12/24 02:00 11/20/23 02:32 Temperature Pulse Rate 80 Respiratory Rate Blood Pressure 141/98 H Pulse Oximetry 95 99 Oxygen Delivery Method Room Air 11/20/23 02:33 11/20/23 02:33 Temperature Pulse Rate 86 Respiratory Rate 18 Blood Pressure 185/106 H Pulse Oximetry 100 Oxygen Delivery Method Medical Decision Making Medical Records Medical records reviewed: Yes I reviewed the patient's medical records. Lab Data Lab results reviewed: Yes I reviewed the patient's lab results. 11/20/23 00:35 11/20/23 00:35 Labs: Lab Results 11/20/23 11/20/23 11/20/23 Range/Units 00:35 00:36 01:23 WBC 9.9 (4.5-11.0) X10^3/uL RBC 5.11 (4.5-5.9) X10^6/uL Hgb 12.2 L (13.5-17.5) g/dL Hct 37.6 L (41-53) % MCV 73.5 L (80-100) fL MCH 23.9 L (26-34) PG MCHC 32.5 (30-36) % RDW 15.8 H (11.6-14.8) % Plt Count 328 (150-400) X10^3/uL Neut % (Auto) 82.4 H (50-75) % Lymph % (Auto) 11.5 L (25-40) % [place] % (Auto) 4.9 (3-14) % Eos % (Auto) 0.2 L (2-4) % Baso % (Auto) 1.0 (0-2) % Neut # (Auto) 8200 H (5563-3144) /uL Lymph # (Auto) 1100 (8419-4028) /uL [place] # (Auto) 500 (0-900) /uL Eos # (Auto) 0 (0-450) /uL Baso # (Auto) 100 (0-100) /uL VBG pH 7.49 H (7.33-7.43) Sodium 135 L (137-145) mmol/L Potassium 4.1 (3.4-5.1) mmol/L Chloride 100 (98-107) mmol/L Carbon Dioxide 23 (22-32) mmol/L BUN 25 H (9-20) mg/dL Creatinine 1.47 H (0.66-1.25) mg/dL Estimated GFR > 60 (>60) mL/min BUN/Creatinine Ratio 17.0 (6-22) Glucose 354 H (70-100) mg/dL Lactate 2.1 (0.7-2.1) mmol/L Calcium 9.7 (8.4-10.2) mg/dL Phosphorus 1.5 L (2.5-4.5) mg/dL Magnesium 2.1 (1.6-2.3) mg/dL Total Bilirubin 0.7 (0.2-1.3) mg/dL AST 26 (17-59) IU/L ALT 20 (<50) IU/L Alkaline Phosphatase 94 (38-126) U/L Total Protein 8.4 H (6.3-8.2) g/dL Albumin 4.7 (3.5-5.0) g/dL Globulin 3.7 (1.7-4.1) g/dL Albumin/Globulin Ratio 1.3 (1.0-2.8) Lipase 73 (23-300) U/L Procalcitonin 0.037 (<0.5) ng/mL Urine RBC 1-5/hpf D (0-5/HPF) Urine WBC None seen (0-5/HPF) Ur Squamous Epith Cells None seen (0-5/HPF) Urine Bacteria None seen (None) Hyaline Casts 0-1/lpf (None) Ur Culture Indicated? Cult not indicated Vol Urine Centrifuged 10ml (spun) Ethyl Alcohol < 10 ( - 10) mg/dL Ketones 1.31 H (<0.27) mmol/L Point of Care Testing Glucose POC 359 Urine Dip Bedside Urine Glucose 1000 mg/dl Bedside Urine Bilirubin - Negative Bedside Urine Ketone +/- 5 Urine Specific [place] 1.015 Bedside Urine Occult Blood +/- Bedside Urine pH 7.5 Bedside Urine Protein +/- 15 Bedside Urine Urobilinogen - Negative Bedside Urine Nitrite - Negative Bedside Urine Leukocytes - Negative Esterase Point of care testing: Point of Care Testing Glucose POC 359 Urine Dip Bedside Urine Glucose 1000 mg/dl Bedside Urine Bilirubin - Negative Bedside Urine Ketone +/- 5 Urine Specific [place] 1.015 Bedside Urine Occult Blood +/- Bedside Urine pH 7.5 Bedside Urine Protein +/- 15 Bedside Urine Urobilinogen - Negative Bedside Urine Nitrite - Negative Bedside Urine Leukocytes - Negative Esterase MDM Narrative Medical decision making narrative: patient is hyperglycemic but is not DKA. He was not acidotic. Kidney function is elevated. he did receive fluids. He was also given Compazine which is helped him in the past. No Ativan was given as he took some prior to arrival and he was already somewhat somnolent upon arrival here in the ER. At 1 point I witnessed the patient sticking his fingers in his throat. I told him not to do this as it was going to cause him to vomit. He states he does this in order to vomit because feels like it will improve his symptoms. He ambulated to the bathroom. He tolerated ice chips. He did complain of abdominal pain however I suspect that this is from the vomiting and gastritis related to this. Advised that he take [id number] medications such as Maalox or Tums. He has nausea medication at home. We discussed the importance of him maintaining his blood sugars at home and checking his blood sugars at home. If he needs supplies he needs to contact his primary doctor for the surprise. Patient was tolerating small amounts of oral intake. Safe for discharge and he may continue to have nausea over the next couple days. Discharge Plan Departure Patient Disposition: Home Clinical Impression: Diabetic gastroparesis, Nausea and vomiting, Abdominal pain Instructions: DI for Abdominal Pain-Adult, Nausea and Vomiting-Adult Activity Restrictions/Additional Instructions: Continue to take all of your medications as directed. It is important that you check your blood sugars at home. If you need more supplies you do need to contact your primary doctor. I do recommend a bland diet for the next couple days. I would not be surprised if you continued to have nausea vomiting but use your medications that you have at home. Try to increase your fluid intake by drinking small amounts more frequently. Prescriptions: No Action hydroxyzine HCl 10 mg tablet 10 mg PO TID PRN (Reason: anxiety) Qty: 84 0RF metoprolol succinate 50 mg tablet extended release 24 hr 50 mg PO DAILY metoclopramide HCl [Reglan] 10 mg tablet 10 mg PO Q8HR PRN (Reason: nausea and vomiting) Qty: 40 2RF omeprazole 40 mg capsule,delayed release(DR/EC) 40 mg PO BID Qty: 60 3RF levothyroxine 50 mcg tablet 50 mcg PO DAILY Qty: 90 1RF Humulin R Regular U-100 Insuln 100 unit/mL solution IM Patient Comments: [NO ORIGINAL SIG] Rx Instructions: via insulin pump paroxetine HCl 10 mg tablet 10 mg PO DAILY Qty: 30 2RF sucralfate [Carafate] 1 gram tablet 1 g PO BID Qty: 60 1RF lorazepam 1 mg tablet 1 mg PO BID PRN (Reason: nausea and vomiting) Qty: 30 1RF diphenhydramine HCl 25 mg Tablet 25 mg PO BEDTIME PRN (Reason: Insomnia) (DME) insulin pump syringe 3 mL Misc MISCELLANEOUS Rx Instructions: patient uses insulin pump zolpidem [Ambien] 5 mg Tablet 5 mg PO BEDTIME PRN (Reason: Insomnia) Referrals: James Jung DO [Primary Care Provider] - Stand Alone Forms: Patient Portal/API
[2023-11-20 01:20] LABS: Procalcitonin 0.037 ng/mL (<0.5)
[2023-11-20] MEDS: PANTOPRAZOLE 40 MG VIAL IV (01:28)
[2023-11-20] MEDS: ACETAMINOPHEN IV 1,000 MG/100 ML VIAL 400 MG IV (01:30)
[2023-11-20 01:36] LABS: Bacteria Urine None Seen; Hyaline Casts Urine 0-1/LPF; RBC Urine 1-5/HPF (0-5/HPF); Squamous Epithelial Cell Urine None Seen (0-5/HPF); Urine Volume 10mL (spun); WBC Urine None Seen (0-5/HPF)
[2023-11-20 01:37] LABS: Culture Indicated Urine Cult Not Indicated
--- NOTE | 2023-11-20 02:12 | PC.NURSE ---
Gave Ice chips at this time. reports abdominal pain has decreased after the protonix and tylenol
[2023-11-20 02:19] LABS: Reflexed Lactate in 2 Hours Y
== END 2023-11-20 03:06 | disposition home or self-care (01) ==
PROVIDERS: Emergency Provider Emergency Medicine; PCP Family Medicine
DX: E11.43 Type 2 diabetes mellitus with diabetic autonomic (poly)neuropathy (principal); K31.84 Gastroparesis; R10.9 Unspecified abdominal pain; R11.2 Nausea with vomiting, unspecified
CPT/HCPCS: 36415; 80053; 80320; 81003; 81015; 82009; 82962; 83605; 83690; 83735; 83986; 84100; 84145; 85025; 99284; J0136; J0780; J2470

== ENCOUNTER 2023-11-20 19:39 | Inpatient (IN) | payer OTHER, MEDICAID, SELFPAY ==
[2023-11-03 17:36] VITALS: BMI 25.9
[2023-11-20] VITALS (7 sets, daily range): BP systolic 96–141; BP diastolic 51–79; PULSE 98–105; RESP 21–24; TEMP 36.5–37; O2SAT 99–100; BMI 24.3
--- NOTE | 2023-11-20 20:17 | ED_ITS ---
HPI - Nausea/Vomiting/Diarrhea General Chief complaint: Nausea/Vomiting/Diarrhea Stated complaint: abd pain Time Seen by Provider: 11/20/23 20:29 Source: EMS Mode of arrival: EMS History of Present Illness HPI Narrative: Patient is a 33-year-old male history of insulin-dependent diabetes presenting today with nausea vomiting. He was seen evaluated here last night for the same found not to be in DKA however he went home in his insulin pump battery . He reports that last night he did not think it was working either but his glucose was 394. He reports that he has been unable to stop vomiting he now feels like he is in DKA POC glucose is greater than 500. Denies any other symptoms. Related Data Home Medications Medication Instructions Recorded Confirmed diphenhydramine HCl 25 mg tablet 25 mg PO BEDTIME PRN Insomnia 07/09/23 11/15/23 insulin pump syringe 3 mL 10/04/23 11/15/23 metoprolol succinate 50 mg 50 mg PO DAILY 10/22/23 11/15/23 tablet,extended release 24 hr zolpidem 5 mg tablet (Ambien) 5 mg PO BEDTIME PRN Insomnia 11/05/23 11/15/23 insulin regular human 100 unit/mL IM 11/15/23 11/15/23 injection solution (Humulin R Regular U-100 Insulin) Previous Rx's Medication Instructions Recorded levothyroxine 50 mcg tablet 50 mcg PO DAILY #90 tabs 10/22/23 metoclopramide HCl 10 mg tablet 10 mg PO Q8HR PRN nausea and 10/22/23 (Reglan) vomiting #40 tabs omeprazole 40 mg capsule,delayed 40 mg PO BID #60 caps 10/22/23 release hydroxyzine HCl 10 mg tablet 10 mg PO TID PRN anxiety #84 tabs 11/08/23 lorazepam 1 mg tablet 1 mg PO BID PRN nausea and 11/15/23 vomiting #30 tabs paroxetine HCl 10 mg tablet 10 mg PO DAILY #30 tabs 11/15/23 sucralfate 1 gram tablet (Carafate) 1 g PO BID #60 tabs 11/15/23 Allergies Allergy/AdvReac Type Severity Reaction Status Date / Time aspirin [ASPIRIN] Allergy Unknown MAKES ME Verified 11/15/23 15:03 GO DEAF hydrocodone [HYDROCODONE] AdvReac Intermediate VOMITING Verified 11/15/23 15:03 ibuprofen [IBUPROFEN] AdvReac Intermediate HURTS Verified 11/15/23 15:03 KIDNEYS Patient History Medical History Generalized anxiety disorder Compression fracture Chronic lower back pain HTN (hypertension) Hypothyroidism Marijuana use History of MRSA infection History of pneumonia Blurry vision, bilateral Diabetic neuropathy Bipolar disorder with depression Nausea and vomiting Diabetes type 1, uncontrolled Diabetic gastroparesis Surgical History No pertinent past surgical history Family History Mother No known health problems Father No known health problems Social History household members: family Smoking Status: Former smoker alcohol intake: current Smoking Status: Former smoker alcohol intake frequency: holidays/special occasions only Alcohol type: hard liquor Substance Use Type: marijuana Exam Initial Vital Signs Initial Vital Signs: Vital Signs Blood Pressure 137/79 11/20/23 19:41 GENERAL: 33-year-old male appears significantly older than stated age, chronically ill HEENT: Head atraumatic,EOMI, pupils reactive, face symmetric, dry mucous membrane CARDIOVASCULAR: Regular rate and rhythm without murmurs, rubs or gallops. RESPIRATORY: Breath sounds equal bilaterally, no wheezes rales or rhonchi. ABDOMEN: Soft, nontender. Normoactive bowel sounds all 4 quadrants. No guarding or rebound. EXTREMITIES: Normal range of motion, no clubbing or edema. Neurovascularly intact NEUROLOGICAL: Alert and oriented x4.Normal gait and speech. Cranial nerves II through XII grossly intact. SKIN: Warm, dry, no laceration, no petechiae, no rashes or lesions. Course Orders Ordered: ED Orders 11/20/23 20:07 Complete Blood Count AUTO DIFF Stat Comprehensive Metabolic Panel Stat Ketones (Beta-Hydroxybutyrate) Stat Lactate (Lactic Acid) Stat Lipase Stat 11/20/23 20:14 pH Venous Blood STAT 11/20/23 20:25 Venous Blood Gas Routine 11/20/23 21:34 Urine Microscopic Stat 11/20/23 22:20 Basic Metabolic Panel Q4H 11/21/23 02:30 Basic Metabolic Panel Q4H Acetaminophen (Acetaminophen 325 Mg Tablet) 650 mg PO Q4HR PRN PRN Reason: Fever/Mild Pain (1-3) Heparin Sodium (Porcine) (Heparin 5,000 Unit/Ml Vial) 5,000 unit SUBCUT BID XENA INSULIN DRIP PREMIX (Myxredlin Drip Premix) 100 unit in 100 mls @ 7.711 mls/hr IV TITRATE XENA; Protocol Last Admin: 11/20/23 21:20 Dose: 0.1 unit/kg/hr, 7.711 mls/hr Documented By: TARAH Co-signed By: KELLE Dextrose ([id number]) 100 mls @ 999 mls/hr IV PRN PRN PRN Reason: Hypoglycemia Sodium Chloride (Normal Saline 0.45%) 1,000 mls @ 100 mls/hr IV CONT XENA Last Admin: 11/20/23 23:17 Dose: 100 mls/hr Documented By: MERARY INSULIN DRIP PREMIX (Myxredlin Drip Premix) 100 unit in 100 mls @ 1.542 mls/hr IV TITRATE XENA; Protocol Levothyroxine Sodium (Levothyroxine 50 Mcg Tablet) 50 mcg PO 0600 XENA Metoclopramide HCl (Metoclopramide Hcl 5 Mg Tablet) 10 mg PO Q8H PRN PRN Reason: Nausea And Vomiting Morphine Sulfate (Morphine 2 Mg/Ml Inj) 2 mg IV Q4HR PRN PRN Reason: Pain, Severe (7-10) Last Admin: 11/20/23 23:56 Dose: 2 mg Documented By: MERARY Naloxone HCl (Naloxone 0.4 Mg/Ml Vial) 0.2 mg IV Q2MIN PRN PRN Reason: Opiate Reversal Ondansetron HCl (Ondansetron 4 Mg/2 Ml Inj) 4 mg IV Q4HR PRN PRN Reason: Nausea And Vomiting Pantoprazole Sodium (Pantoprazole Dr 40 Mg Tablet) 40 mg PO BID XENA Paroxetine HCl (Paroxetine 20 Mg Tablet) 10 mg PO DAILY XENA Prochlorperazine (Prochlorperazine 10 Mg/2 Ml Vial) 10 mg IV Q6HR PRN PRN Reason: Nausea Last Admin: 11/20/23 23:55 Dose: 10 mg Documented By: MERARY Discontinued Medications Sodium Chloride (Normal Saline 0.9%) 1,000 mls @ 1,000 mls/hr IV BOLUS ONE Stop: 11/20/23 21:30 Last Infusion: 10/13/24 01:43 Dose: Infused Documented By: Admin: 11/20/23 20:38 Dose: 1,000 mls/hr Documented By: TARAH Sodium Chloride (Normal Saline 0.9%) 1,000 mls @ 1,000 mls/hr IV BOLUS ONE Stop: 11/20/23 23:30 POTASSIUM CHLORIDE IN WATER (Potassium Cl 10 Meq/100 Ml Sully) 10 meq in 100 mls @ 100 mls/hr IV Q1H XENA Stop: 11/21/23 00:44 Last Infusion: 11/21/23 01:43 Dose: Infused Documented By: Admin: 11/21/23 00:20 Dose: 100 mls/hr Documented By: Infusion: 11/21/23 00:18 Dose: Infused Documented By: Admin: 11/20/23 23:18 Dose: 100 mls/hr Documented By: MERARY Sodium Chloride (Normal Saline 0.9%) 1,000 mls @ 999 mls/hr IV CONT STA Stop: 11/21/23 01:36 Last Infusion: 11/21/23 01:43 Dose: Infused Documented By: Admin: 11/21/23 00:40 Dose: 999 mls/hr Documented By: MERARY Insulin Human Regular (Insulin Regular 100 Unit/Ml 3 Ml Vial) 10 unit IV NOW ONE Stop: 11/20/23 22:29 Last Admin: 11/20/23 22:49 Dose: 10 unit Documented By: TARAH Co-signed By: KELLE Ondansetron HCl (Ondansetron 4 Mg/2 Ml Inj) 4 mg IV NOW ONE Stop: 11/20/23 20:15 Last Admin: 11/20/23 20:35 Dose: 4 mg Documented By: TARAH Pantoprazole Sodium (Pantoprazole 40 Mg Vial) 40 mg IV NOW ONE Stop: 11/20/23 20:15 Last Admin: 11/20/23 20:31 Dose: 40 mg Documented By: TARAH Vital Signs Vital signs: Vital Signs - 8 hr 11/20/23 19:41 11/20/23 19:42 11/20/23 20:00 Temperature 97.7 F Pulse Rate 104 H Respiratory Rate 24 Blood Pressure 137/79 127/69 Pulse Oximetry 100 Oxygen Delivery Method Room Air 11/20/23 20:00 11/20/23 20:30 11/20/23 20:30 Temperature Pulse Rate 98 H 103 H Respiratory Rate 23 Blood Pressure 141/73 H Pulse Oximetry 100 100 Oxygen Delivery Method 11/20/23 21:00 11/20/23 21:00 Temperature Pulse Rate 105 H Respiratory Rate 21 Blood Pressure 112/59 L Pulse Oximetry 100 Oxygen Delivery Method MDM - Nausea/Vomiting/Diarrhea Lab Data 11/20/23 20:07 11/20/23 22:20 Labs: Lab Results 11/20/23 11/20/23 11/20/23 Range/Units 20:07 20:25 21:34 WBC 12.1 H (4.5-11.0) X10^3/uL RBC 4.33 L (4.5-5.9) X10^6/uL Hgb 10.2 L (13.5-17.5) g/dL Hct 33.7 L (41-53) % MCV 78.0 L D (80-100) fL MCH 23.5 L (26-34) PG MCHC 30.2 (30-36) % RDW 16.0 H (11.6-14.8) % Plt Count 310 (150-400) X10^3/uL Neut % (Auto) 93.2 H (50-75) % Lymph % (Auto) 3.9 L (25-40) % [place] % (Auto) 2.8 L (3-14) % Eos % (Auto) 0.0 L (2-4) % Baso % (Auto) 0.1 (0-2) % Neut # (Auto) 66213 H (1086-0817) /uL Lymph # (Auto) 500 L (9027-5913) /uL [place] # (Auto) 300 (0-900) /uL Eos # (Auto) 0 (0-450) /uL Baso # (Auto) 0 (0-100) /uL VBG pH 7.27 L (7.33-7.43) VBG pCO2 18.1 L (45-50) mmHg VBG pO2 69 H (35-45) mmHg VBG HCO3 8 L (24-28) mmol/L VBG Total CO2 7 L (24-29) mmol/L VBG O2 Saturation 91 H (70-75) % VBG Base Excess -16.7 L (0-4) mmol/L FiO2 % 21.0 % % Sodium 136 L (137-145) mmol/L Potassium 5.1 (3.4-5.1) mmol/L Chloride 98 (98-107) mmol/L Carbon Dioxide 5 L* (22-32) mmol/L BUN 33 H (9-20) mg/dL Creatinine 1.99 H (0.66-1.25) mg/dL Estimated GFR 45 L (>60) mL/min BUN/Creatinine Ratio 16.6 (6-22) Glucose 691 H* D (70-100) mg/dL Lactate 3.8 H (0.7-2.1) mmol/L Calcium 8.7 (8.4-10.2) mg/dL Total Bilirubin 0.9 (0.2-1.3) mg/dL AST 22 (17-59) IU/L ALT 23 (<50) IU/L Alkaline Phosphatase 94 (38-126) U/L Total Protein 7.2 (6.3-8.2) g/dL Albumin 4.4 (3.5-5.0) g/dL Globulin 2.8 (1.7-4.1) g/dL Albumin/Globulin Ratio 1.6 (1.0-2.8) Lipase 35 D (23-300) U/L Urine RBC 0-1/hpf (0-5/HPF) Urine WBC 0-1/hpf (0-5/HPF) Ur Squamous Epith Cells None seen (0-5/HPF) Urine Bacteria None seen (None) Ur Culture Indicated? Cult not indicated Vol Urine Centrifuged 10ml (spun) Ketones 12.0 H (<0.27) mmol/L 11/20/23 11/20/23 Range/Units 22:20 22:20 WBC (4.5-11.0) X10^3/uL RBC (4.5-5.9) X10^6/uL Hgb (13.5-17.5) g/dL Hct (41-53) % MCV (80-100) fL MCH (26-34) PG MCHC (30-36) % RDW (11.6-14.8) % Plt Count (150-400) X10^3/uL Neut % (Auto) (50-75) % Lymph % (Auto) (25-40) % [place] % (Auto) (3-14) % Eos % (Auto) (2-4) % Baso % (Auto) (0-2) % Neut # (Auto) (9523-4527) /uL Lymph # (Auto) (6761-6506) /uL [place] # (Auto) (0-900) /uL Eos # (Auto) (0-450) /uL Baso # (Auto) (0-100) /uL VBG pH (7.33-7.43) VBG pCO2 (45-50) mmHg VBG pO2 (35-45) mmHg VBG HCO3 (24-28) mmol/L VBG Total CO2 (24-29) mmol/L VBG O2 Saturation (70-75) % VBG Base Excess (0-4) mmol/L FiO2 % % Sodium 140 (137-145) mmol/L Potassium 4.6 (3.4-5.1) mmol/L Chloride 104 (98-107) mmol/L Carbon Dioxide < 5 L* (22-32) mmol/L BUN 34 H (9-20) mg/dL Creatinine 2.09 H (0.66-1.25) mg/dL Estimated GFR 42 L (>60) mL/min BUN/Creatinine Ratio 16.3 (6-22) Glucose Cancelled 617 H* (70-100) mg/dL Lactate 3.5 H (0.7-2.1) mmol/L Calcium 8.3 L (8.4-10.2) mg/dL Total Bilirubin (0.2-1.3) mg/dL AST (17-59) IU/L ALT (<50) IU/L Alkaline Phosphatase (38-126) U/L Total Protein (6.3-8.2) g/dL Albumin (3.5-5.0) g/dL Globulin (1.7-4.1) g/dL Albumin/Globulin Ratio (1.0-2.8) Lipase (23-300) U/L Urine RBC (0-5/HPF) Urine WBC (0-5/HPF) Ur Squamous Epith Cells (0-5/HPF) Urine Bacteria (None) Ur Culture Indicated? Vol Urine Centrifuged Ketones (<0.27) mmol/L Point of Care Testing Glucose POC 500 Urine Dip Bedside Urine Glucose 1000 mg/dl Bedside Urine Bilirubin - Negative Bedside Urine Ketone +++ 80 Urine Specific Holly 1.020 Bedside Urine Occult Blood - Negative Bedside Urine pH 5.5 Bedside Urine Protein - Negative Bedside Urine Urobilinogen - Negative Bedside Urine Nitrite - Negative Bedside Urine Leukocytes - Negative Esterase MDM Narrative Medical decision making narrative: MDM CC: Nausea vomiting abdominal pain Complicating co-morbidities: Insulin-dependent diabetes, marijuana use hypothyroidism gastroparesis Medical records reviewed: Previous ED visit and admission Differential considered: DKA abdominal abnormality Exam documented above, pertinent findings include: Chronically ill dry mucous membranes if use abdominal pain, but no significant distention Lab Test results independently reviewed as above. Pertinent findings: pH 7.27 Anion gap 33 glucose 691 Potassium 5.1 lactate 3.8-->3.5 Ketones 12 WBC 12 Creatinine 1.99 yesterday with 1.47 Imaging studies independently reviewed:none Consultations: Dr. Balderas accepts patient. Reports likely needs much more fluids. And requests insulin 10 units to be given IV. Treatments:, IV fluids, Zofran Protonix insulin per DKA protocol Re-evaluations: Blood pressure did drop to 83 and then into the 90s. Still complaining of pain about waiting for blood pressure to come up before giving pain medications Discussion: Patient 33-year-old male insulin-dependent diabetic presenting today with abdominal pain nausea vomiting and glucose greater than 500. He was found to be in DKA with a pH of 7.2. Creatinine is also elevated baseline does appear to be at about 1.0 and it is 2.0. He is started on IV fluids and treated for DKA. Suspect patient is in DKA due to a nonworking insulin pump rather than sepsis. He does have mild leukocytosis of 12 however no obvious infectious symptoms. Antibiotics were held. He does complain of abdominal pain but no specific localization or distention Discharge Plan Departure Patient Disposition: Admitted As Inpatient Clinical Impression: Type 1 diabetes mellitus with ketoacidosis Admit Date/Time: 11/20/23 22:31 Admit Provider: Edgard Balderas
[2023-11-20 20:25] LABS: Add Manual Diff / Slide Review NO; Basophils Absolute Auto 0 /uL (0-100); Basophils Percent Auto 0.1 % (0-2); Eosinophils Absolute Auto 0 /uL (0-450); Hematocrit 33.7 % (41-53); Hemoglobin 10.2 g/dL (13.5-17.5); Lymphocytes Absolute Auto 500 /uL (1100-4500); Lymphocytes Percent Auto 3.9 % (25-40); Mean Corpuscular HGB Conc 30.2 % (30-36); Mean Corpuscular Hemoglobin 23.5 PG (26-34); Monocytes Absolute Auto 300 /uL (0-900); Monocytes Percent Auto 2.8 % (3-14); Neutrophils Absolute Auto 11300 /uL (1500-7000); Neutrophils Percent Auto 93.2 % (50-75); Platelet Count 310 X10^3/uL (150-400); Red Blood Cell Count 4.33 X10^6/uL (4.5-5.9); White Blood Cell Count 12.1 X10^3/uL (4.5-11.0)
[2023-11-20 20:28] LABS: Alanine Aminotransferase 23 IU/L (<50); Albumin 4.4 g/dL (3.5-5.0); Albumin Globulin Ratio 1.6 (1.0-2.8); Alkaline Phosphatase 94 U/L (38-126); Aspartate Aminotransferase 22 IU/L (17-59); BUN Creatinine Ratio 16.6 (6-22); Bilirubin Total 0.9 mg/dL (0.2-1.3); Blood Urea Nitrogen 33 mg/dL (9-20); Calcium 8.7 mg/dL (8.4-10.2); Chloride 98 mmol/L (98-107); Estimated Glomerular Filt Rate 45 mL/min (>60); Globulin 2.8 g/dL (1.7-4.1); HEMOLYSIS < 15 (0-50); Lipase 35 U/L (23-300); Potassium 5.1 mmol/L (3.4-5.1); Sodium 136 mmol/L (137-145); Total Protein 7.2 g/dL (6.3-8.2)
[2023-11-20 20:29] LABS: Base Excess VBG -16.7 mmol/L (0-4); HCO3 VBG 8 mmol/L (24-28); Oxygen Saturation VBG 91 % (70-75); PCO2 VBG 18.1 mmHg (45-50); PO2 VBG 69 mmHg (35-45); Total CO2 VBG 7 mmol/L (24-29); pH VBG 7.27 (7.33-7.43)
[2023-11-20 20:29] LABS: Lactate (Lactic Acid) 3.8 mmol/L (0.7-2.1)
[2023-11-20] MEDS: PANTOPRAZOLE 40 MG VIAL IV (20:31)
[2023-11-20] MEDS: ONDANSETRON 4 MG/2 ML INJ IV (20:35)
[2023-11-20] MEDS: SODIUM CHLORIDE 0.9% 1,000 ML 1000 ML IV (20:38)
[2023-11-20 20:39] LABS: Carbon Dioxide 5 mmol/L (22-32); Glucose 691 mg/dL (70-100)
[2023-11-20] MEDS: INSULIN DRIP PREMIX 100 UNIT/100 ML PLAST..BAG 7.711 UNIT IV (21:20)
[2023-11-20 21:46] LABS: Bacteria Urine None Seen; Culture Indicated Urine Cult Not Indicated; RBC Urine 0-1/HPF (0-5/HPF); Squamous Epithelial Cell Urine None Seen (0-5/HPF); Urine Volume 10mL (spun); WBC Urine 0-1/HPF (0-5/HPF)
[2023-11-20 21:55] LABS: Reflexed Lactate in 2 Hours Y
[2023-11-20 22:43] LABS: Lactate 2HR (Lactic Acid Rflx) 3.5 mmol/L (0.7-2.1)
[2023-11-20] MEDS: INSULIN REGULAR 100 UNIT/ML 3 ML VIAL 10 UNIT IV (22:49)
[2023-11-20 23:02] LABS: BUN Creatinine Ratio 16.3 (6-22); Blood Urea Nitrogen 34 mg/dL (9-20); Calcium 8.3 mg/dL (8.4-10.2); Chloride 104 mmol/L (98-107); Estimated Glomerular Filt Rate 42 mL/min (>60); HEMOLYSIS < 15 (0-50); Potassium 4.6 mmol/L (3.4-5.1); Sodium 140 mmol/L (137-145)
[2023-11-20 23:04] LABS: Carbon Dioxide < 5 mmol/L (22-32); Glucose 617 mg/dL (70-100)
[2023-11-20] MEDS: SODIUM CHLORIDE 0.45% 1,000 ML 100 ML IV (23:17)
[2023-11-20] MEDS: POTASSIUM CHLORIDE IN WATER 10 MEQ/100 ML PIGGYBACK 100 MEQ IV (23:18)
[2023-11-20] MEDS: PROCHLORPERAZINE 10 MG/2 ML VIAL IV (23:55)
[2023-11-20] MEDS: MORPHINE 2 MG/ML INJ IV (23:56)
[2023-11-21] VITALS (48 sets, daily range): BP systolic 76–187; BP diastolic 40–112; PULSE 86–112; RESP 0–28; TEMP 37.1; O2SAT 95–100
[2023-11-21] MEDS: POTASSIUM CHLORIDE IN WATER 10 MEQ/100 ML PIGGYBACK 100 MEQ IV (00:20)
[2023-11-21 00:29] LABS: Base Excess VBG -19.3 mmol/L (0-4); HCO3 VBG 8 mmol/L (24-28); Oxygen Saturation VBG 73 % (70-75); PCO2 VBG 20.8 mmHg (45-50); PO2 VBG 48 mmHg (35-45); Total CO2 VBG 7 mmol/L (24-29); pH VBG 7.17 (7.33-7.43)
[2023-11-21] MEDS: SODIUM CHLORIDE 0.9% 1,000 ML 999 ML IV ×2 (00:40→05:36)
--- NOTE | 2023-11-21 01:00 | P.HP_ITS ---
History of Present Illness History of Present Illness Chief complaint: abd pain Narrative: 33-year-old male with past medical history of insulin dependent diabetes on insulin pump, hypertension, hypothyroidism, marijuana use, and diabetic gastroparesis presents with complaint of elevated glucose with nausea and vomiting. Per the patient report, the patient presented to our ER last night and was found to have a glucose in the 300s. The patient was given IV fluid and was deemed stable and was sent home as patient did not have DKA at that time. However, the patient states that his insulin pump ran our battery last night. The patient glucose was great than 500 at home today. The patient also has some nausea, vomiting and abdominal discomfort. The patient, however, denies any fever, chills, chest pain, coughing, or dysuria. In our emergency room, the patient was found to be in DKA. Bicarb was five and pH was 7.2. Glucose was in the 600s and creatinine was 1.99. The patient was started on insulin drip without bolus. WBC was 12 but no clear signs of infection found. UA was negative. I asked our ER physician to give 10 units of regular insulin and give additional IV bolus as patient was only given 1L of NS bolus so far. COUNTS INCLUDE 234 BEDS AT THE [facility] Medical History Generalized anxiety disorder Compression fracture Chronic lower back pain HTN (hypertension) Hypothyroidism Marijuana use History of MRSA infection History of pneumonia Blurry vision, bilateral Diabetic neuropathy Bipolar disorder with depression Nausea and vomiting Diabetes type 1, uncontrolled Diabetic gastroparesis Surgical History No pertinent past surgical history Family History Mother No known health problems Father No known health problems Social History household members: family Smoking Status: Former smoker alcohol intake: current Meds Home Medications and Allergies Home Medications Medication Instructions Recorded Confirmed Type diphenhydramine HCl 25 mg tablet 25 mg PO BEDTIME PRN Insomnia 07/09/23 11/15/23 History insulin pump syringe 3 mL 10/04/23 11/15/23 History levothyroxine 50 mcg tablet 50 mcg PO DAILY #90 tabs 10/22/23 11/15/23 Rx metoclopramide HCl 10 mg tablet 10 mg PO Q8HR PRN nausea and 10/22/23 11/15/23 Rx (Reglan) vomiting #40 tabs metoprolol succinate 50 mg 50 mg PO DAILY 10/22/23 11/15/23 History tablet,extended release 24 hr omeprazole 40 mg capsule,delayed 40 mg PO BID #60 caps 10/22/23 11/15/23 Rx release zolpidem 5 mg tablet (Ambien) 5 mg PO BEDTIME PRN Insomnia 11/05/23 11/15/23 History hydroxyzine HCl 10 mg tablet 10 mg PO TID PRN anxiety #84 tabs 11/08/23 11/15/23 Rx insulin regular human 100 unit/mL IM 11/15/23 11/15/23 History injection solution (Humulin R Regular U-100 Insulin) lorazepam 1 mg tablet 1 mg PO BID PRN nausea and 11/15/23 11/15/23 Rx vomiting #30 tabs paroxetine HCl 10 mg tablet 10 mg PO DAILY #30 tabs 11/15/23 11/15/23 Rx sucralfate 1 gram tablet (Carafate) 1 g PO BID #60 tabs 11/15/23 11/15/23 Rx Allergies Allergy/AdvReac Type Severity Reaction Status Date / Time aspirin [ASPIRIN] Allergy Unknown MAKES ME Verified 11/15/23 15:03 GO DEAF hydrocodone [HYDROCODONE] AdvReac Intermediate VOMITING Verified 11/15/23 15:03 ibuprofen [IBUPROFEN] AdvReac Intermediate HURTS Verified 11/15/23 15:03 KIDNEYS Review of Systems Review of Systems ROS: Yes All systems reviewed with the patient and are negative except as otherwise documented Exam Vital Signs (past 8 hours): - 11/20/23 19:41 11/20/23 19:42 11/20/23 20:00 Temperature 97.7 F Pulse Rate 104 H Respiratory Rate 24 Blood Pressure 137/79 127/69 Pulse Oximetry 100 Oxygen Delivery Method Room Air Oxygen Flow Rate 11/20/23 20:00 11/20/23 20:30 11/20/23 20:30 Temperature Pulse Rate 98 H 103 H Respiratory Rate 23 Blood Pressure 141/73 H Pulse Oximetry 100 100 Oxygen Delivery Method Oxygen Flow Rate 11/20/23 21:00 11/20/23 21:00 11/20/23 23:00 Temperature 98.6 F Pulse Rate 105 H 98 H Respiratory Rate 21 22 Blood Pressure 112/59 L 96/52 L Pulse Oximetry 100 99 Oxygen Delivery Method Oxygen Flow Rate 0 11/20/23 23:00 11/20/23 23:55 Temperature Pulse Rate 99 H Respiratory Rate Blood Pressure 97/51 L Pulse Oximetry Oxygen Delivery Method Room Air Oxygen Flow Rate Oxygen Delivery Method Room Air Oxygen Flow Rate 0 Narrative Exam Narrative: GENERAL: The patient is not in any acute distressed. Awake and alert. HEENT: Nonicteric sclerae, PERRLA, EOMI. Oropharynx clear. Moist mucous membranes. Conjunctivae appear well perfused. HEART: Regular rate and rhythm without murmurs. No lower extremities edema. LUNGS: Clear to auscultation bilaterally. No wheezing, crackles or rhonchi ABDOMEN: Soft, positive bowel sounds, nontender. SKIN: No rash, no excessive bruising, petechiae, or purpura. NEUROLOGIC: AxO x 3. Cranial nerves II-XII intact without motor/sensory deficit. Objective Labs 11/20/23 20:07 11/20/23 22:20 Labs: Laboratory Results - last 24 hr 11/20/23 11/20/23 11/20/23 20:07 20:25 21:34 WBC 12.1 H RBC 4.33 L Hgb 10.2 L Hct 33.7 L MCV 78.0 L D MCH 23.5 L MCHC 30.2 RDW 16.0 H Plt Count 310 Neut % (Auto) 93.2 H Lymph % (Auto) 3.9 L Winn % (Auto) 2.8 L Eos % (Auto) 0.0 L Baso % (Auto) 0.1 Neut # (Auto) 76098 H Lymph # (Auto) 500 L Winn # (Auto) 300 Eos # (Auto) 0 Baso # (Auto) 0 VBG pH 7.27 L VBG pCO2 18.1 L VBG pO2 69 H VBG HCO3 8 L VBG Total CO2 7 L VBG O2 Saturation 91 H VBG Base Excess -16.7 L FiO2 % 21.0 % Sodium 136 L Potassium 5.1 Chloride 98 Carbon Dioxide 5 L* BUN 33 H Creatinine 1.99 H Estimated GFR 45 L BUN/Creatinine Ratio 16.6 Glucose 691 H* D Lactate 3.8 H Calcium 8.7 Total Bilirubin 0.9 AST 22 ALT 23 Alkaline Phosphatase 94 Total Protein 7.2 Albumin 4.4 Globulin 2.8 Albumin/Globulin Ratio 1.6 Lipase 35 D Urine RBC 0-1/hpf Urine WBC 0-1/hpf Ur Squamous Epith Cells None seen Urine Bacteria None seen Ur Culture Indicated? Cult not indicated Vol Urine Centrifuged 10ml (spun) Ketones 12.0 H 11/20/23 11/20/23 11/21/23 22:20 22:20 00:10 WBC RBC Hgb Hct MCV MCH MCHC RDW Plt Count Neut % (Auto) Lymph % (Auto) [place] % (Auto) Eos % (Auto) Baso % (Auto) Neut # (Auto) Lymph # (Auto) Winn # (Auto) Eos # (Auto) Baso # (Auto) VBG pH 7.17 L* VBG pCO2 20.8 L VBG pO2 48 H VBG HCO3 8 L VBG Total CO2 7 L VBG O2 Saturation 73 VBG Base Excess -19.3 L FiO2 % Sodium 140 Potassium 4.6 Chloride 104 Carbon Dioxide < 5 L* BUN 34 H Creatinine 2.09 H Estimated GFR 42 L BUN/Creatinine Ratio 16.3 Glucose Cancelled 617 H* Lactate 3.5 H Calcium 8.3 L Total Bilirubin AST ALT Alkaline Phosphatase Total Protein Albumin Globulin Albumin/Globulin Ratio Lipase Urine RBC Urine WBC Ur Squamous Epith Cells Urine Bacteria Ur Culture Indicated? Vol Urine Centrifuged Ketones Assessment & Plan Assessment & Plan narrative: DKA admit the patient to ICU. Continue DKA protocol with aggressive IV fluid. Monitor renal function and electrolytes. Will need to have patient insulin pump evaluated in AM as it is malfunctioning and is out of batery per the patients report. Create 1.99. Likely from severe dehydration. IV fluid and recheck Cr in the morning. Dehydration. IV fluid. Leukocytosis. Mild. WBC 12. Afebrile. Likely stress induced. Monitor for now. Hypertension. Hold home HTN medications as patient SBP is relatively low normal. Hypothyroidism, resume home Synthroid appear DVT prophylaxis hep Q. Inspector Balance Bridge status full code. Disposition, likely home in , three days. Time-Based Coding :: [TOTAL MINUTES] spent with patient and on the chart (including review of chart, obtaining history, exam, reviewing outside data, placing orders, documenting exam and treatment plan, and counseling patient) on [DATE].
--- NOTE | 2023-11-21 01:25 | PC.NURSE ---
Rec'd pt from ED at 2300; pt awake and alert; c/o nausea and abd pain; insulin drip infusing at 7.7 units/hr from ED and RN gave him an additional 10units IV just prior to transfer; 2330 spoke w/ Dr Balderas via monitor; status report given and orders rec'd
--- NOTE | 2023-11-21 01:28 | PC.NURSE ---
0030--after morphine and compazine admin, pt went to sleep; b/p dropped to 70/[address] Balderas notified; NS 1l IV bolus started; last b/p ; pt denies any complaints
[2023-11-21] MEDS: INSULIN DRIP PREMIX 100 UNIT/100 ML PLAST..BAG 11.567 UNIT IV (02:03)
[2023-11-21 02:55] LABS: BUN Creatinine Ratio 16.7 (6-22); Blood Urea Nitrogen 34 mg/dL (9-20); Calcium 7.8 mg/dL (8.4-10.2); Carbon Dioxide 13 mmol/L (22-32); Chloride 113 mmol/L (98-107); Estimated Glomerular Filt Rate 44 mL/min (>60); Glucose 182 mg/dL (70-100); HEMOLYSIS < 15 (0-50); Potassium 3.7 mmol/L (3.4-5.1); Sodium 143 mmol/L (137-145)
[2023-11-21] MEDS: ONDANSETRON 4 MG/2 ML INJ IV ×2 (03:16→08:45)
[2023-11-21 04:19] LABS: MRSA (Nasal) PCR NOT DETECTED (Not Detect)
[2023-11-21] MEDS: MORPHINE 2 MG/ML INJ IV ×4 (05:10→21:57)
[2023-11-21] MEDS: DEXTROSE 5%-0.45% NS 1,000 ML 150 ML IV ×2 (05:35→12:30)
[2023-11-21] MEDS: LEVOTHYROXINE 50 MCG TABLET PO (06:42)
[2023-11-21 06:44] LABS: Add Manual Diff / Slide Review NO; Basophils Absolute Auto 0 /uL (0-100); Basophils Percent Auto 0.2 % (0-2); Eosinophils Absolute Auto 0 /uL (0-450); Eosinophils Percent Auto 0.2 % (2-4); Hematocrit 24.4 % (41-53); Hemoglobin 7.8 g/dL (13.5-17.5); Lymphocytes Absolute Auto 1100 /uL (1100-4500); Mean Corpuscular HGB Conc 31.8 % (30-36); Mean Corpuscular Hemoglobin 23.7 PG (26-34); Mean Corpuscular Volume 74.7 fL (80-100); Monocytes Absolute Auto 1000 /uL (0-900); Monocytes Percent Auto 9.8 % (3-14); Neutrophils Absolute Auto 8000 /uL (1500-7000); Neutrophils Percent Auto 78.8 % (50-75); Platelet Count 247 X10^3/uL (150-400); Red Blood Cell Count 3.27 X10^6/uL (4.5-5.9); Red Cell Distribution Width 15.7 % (11.6-14.8); White Blood Cell Count 10.1 X10^3/uL (4.5-11.0)
[2023-11-21 06:53] LABS: Alanine Aminotransferase 13 IU/L (<50); Albumin 2.8 g/dL (3.5-5.0); Albumin Globulin Ratio 1.1 (1.0-2.8); Alkaline Phosphatase 57 U/L (38-126); Aspartate Aminotransferase 16 IU/L (17-59); BUN Creatinine Ratio 19.4 (6-22); Bilirubin Total 0.5 mg/dL (0.2-1.3); Blood Urea Nitrogen 34 mg/dL (9-20); Calcium 7.2 mg/dL (8.4-10.2); Carbon Dioxide 17 mmol/L (22-32); Chloride 113 mmol/L (98-107); Estimated Glomerular Filt Rate 52 mL/min (>60); Globulin 2.6 g/dL (1.7-4.1); Glucose 144 mg/dL (70-100); HEMOLYSIS < 15 (0-50); Potassium 3.9 mmol/L (3.4-5.1); Sodium 139 mmol/L (137-145); Total Protein 5.4 g/dL (6.3-8.2)
[2023-11-21] MEDS: PROCHLORPERAZINE 10 MG/2 ML VIAL IV ×2 (06:57→14:10)
[2023-11-21 07:21] LABS: Ketones (Beta-Hydroxybutyrate) 4.98 mmol/L (<0.27)
--- NOTE | 2023-11-21 07:32 | PC.NURSE ---
0520--spoke w/ Dr Balderas Re: blood sugar 77 but pt asymptomatic; orders rec'd; iv bolus started for continued hypotension; D5 1/2 started at 150ml/hr; additional labs ordered for this morning
--- NOTE | 2023-11-21 07:34 | PC.NURSE ---
pt continues to have intermittent nausea and vomiting; last fingerstick was 177; sbp 120s
[2023-11-21 07:35] LABS: Phosphorous 1.9 mg/dL (2.5-4.5)
[2023-11-21] MEDS: INSULIN DRIP PREMIX 100 UNIT/100 ML PLAST..BAG IV (08:00)
[2023-11-21 08:16] LABS: Lactate (Lactic Acid) 0.9 mmol/L (0.7-2.1)
[2023-11-21] MEDS: INSULIN GLARGINE 100 UNIT/ML 3ML PEN 10 UNIT SUBCUT ×2 (08:45→21:37)
[2023-11-21] MEDS: POTASSIUM PHOSPHATE 15 MMOL in SODIUM CHLORIDE 0.9% 250 ML 127.5 MMOL IV (09:02)
[2023-11-21 10:50] LABS: BUN Creatinine Ratio 18.4 (6-22); Blood Urea Nitrogen 29 mg/dL (9-20); Calcium 7.3 mg/dL (8.4-10.2); Carbon Dioxide 19 mmol/L (22-32); Chloride 113 mmol/L (98-107); Estimated Glomerular Filt Rate 59 mL/min (>60); Glucose 206 mg/dL (70-100); HEMOLYSIS < 15 (0-50); Sodium 139 mmol/L (137-145)
[2023-11-21] MEDS: INSULIN LISPRO 100 UNIT/ML 3ML VIAL SUBCUT ×3 (12:31→21:02)
--- NOTE | 2023-11-21 14:28 | CM.DANOTE ---
B DCP Assessment note Pt is a 33yo M here with n/v. Well known to this staff for similar concerns. Type 1 diabetic, here with DKA. PCP James Arevalo and Medicaid HANDICAPPER HARNESS RACING reviewed EMR. Per chart review, pt has frequent ED visits (per [facility], 17 in past 12 months) for similar concerns. Last Admission in Oct, CM team connected pt with Mickey production support manager Yokasta Bartlett [phone] who agreed to follow up for 30 days and then transition him to emt intermediate case management [facility] services. also provided MH information. he was referred to it corporate recruiter. Has an appt with Maye Tamez on 12/03/23 for diabetes education. Per chart, pt lives in [place] with mom and grandmother. Moved here permanently 6 months ago from [place], where he had a similar schedule of ED visits. Per provider in morning rounds, this admission pt reports his pump ran out of batteries. Due to frequent ED visits for same reasons/managing his type1 diabetes, this HANDICAPPER HARNESS RACING wonders if he may be a good candidate for a [facility] CG in the home (maybe even once a week visits to check in, help manage pump, meals, meds, appts, etc.). HANDICAPPER HARNESS RACING attempted to meet with pt x2, either sleeping with blanket over his head or appeared to be vomiting. P: anticipate home with family when medically stable. F/u about SARAI appt in home for LTC in home CG to help manage type 1 diabetes, f/u with Mickey CM, and f/u with PCP TCM team. GORDON Sumner Discharge Planning/Care Management CM Discharge Assessment Start: 11/21/23 14:21 Freq: Status: Active Protocol: Document 11/21/23 14:22 (Rec: 11/21/23 14:27 [id number]) Discharge Planning Assessment Assigned Pot Press Operator GORDON Jones DPOA/Assigned Designee Name Marilee Villagomez Contact Information [phone] Advance Directives? No Advance Directives on File No History Provided By Patient,Medical Record Has Patient been admitted in last 30 Yes days? Comment admitted 11-03-23 to 11-06-23. ED visit 11-19-23. 17 total ED visits in past 12 months Household Members family Independent with ADL's Yes Is patient alert and oriented? Yes Comment Patient has left foot drop which he wears a brace for. Discharge Plan Home Transportation Arrangement Family to provide transport. Referrals Initiated None needed Whiteboard Updated in Patient Room with No name and ext. # of Pot Press Operator Review Status In Process Please Provide Date Initial DC 11/21/23 Assessment Was Performed Next Review Type Continued Stay Review
[2023-11-21 14:45] LABS: BUN Creatinine Ratio 17.5 (6-22); Blood Urea Nitrogen 25 mg/dL (9-20); Calcium 7.5 mg/dL (8.4-10.2); Carbon Dioxide 19 mmol/L (22-32); Chloride 110 mmol/L (98-107); Estimated Glomerular Filt Rate > 60 mL/min (>60); Glucose 205 mg/dL (70-100); HEMOLYSIS < 15 (0-50); Sodium 138 mmol/L (137-145)
--- NOTE | 2023-11-21 16:22 | PM.PN.1 ---
Subjective Subjective Interval history: 33-year-old male with type 1 diabetes diagnosed at age 16, complicated by peripheral neuropathy. He has a history of frequent hospitalizations secondary to cannabinoid hyperemesis syndrome, running out of medications, diabetic gastroparesis which lead to DKA. He presented to the emergency department yesterday secondary to nausea and vomiting related to marijuana use. At that time, he had no evidence of DKA and was discharged home. He was admitted last night with DKA secondary to the battery in his insulin pump wearing out. This morning, he reports he continues to feel quite poorly. He states he last vomited 1 hour prior to my evaluation. He does not foresee any barriers to restarting his insulin pump at discharge. He feels he will be able to get a new battery for his insulin pump but could not do so last night because he was feeling poorly. He states he gets 33 units per 24 hours with his insulin pump which would be 1.375 units/hour. He also gets 1 unit for every 15 g of carbs eaten. He states he gets lows in the 50s and averages in the 200s. He reports he has not had a low in the last week. He can not recall what his high was. On arrival to the hospital overnight, his blood sugar was 617 Exam Vital Signs (past 8 hours): - 11/21/23 08:30 11/21/23 08:30 11/21/23 08:45 Pulse Rate 95 H Respiratory Rate 14 Blood Pressure 108/56 L 174/93 H Pulse Oximetry 96 11/21/23 08:45 11/21/23 09:00 11/21/23 09:00 Pulse Rate 107 H 103 H Respiratory Rate 15 16 Blood Pressure 163/80 H Pulse Oximetry 98 100 11/21/23 09:15 11/21/23 09:15 11/21/23 09:30 Pulse Rate 93 H 92 H Respiratory Rate 17 17 Blood Pressure 112/57 L Pulse Oximetry 97 97 11/21/23 09:30 11/21/23 09:45 11/21/23 09:45 Pulse Rate 90 Respiratory Rate 18 Blood Pressure 101/59 L 92/53 L Pulse Oximetry 97 11/21/23 09:59 11/21/23 10:00 11/21/23 10:00 Pulse Rate 90 90 Respiratory Rate 17 18 Blood Pressure 97/52 L Pulse Oximetry 97 97 11/21/23 10:15 11/21/23 10:15 11/21/23 10:30 Pulse Rate 91 H Respiratory Rate 14 Blood Pressure 101/58 L 169/91 H Pulse Oximetry 97 11/21/23 10:30 11/21/23 11:00 11/21/23 11:00 Pulse Rate 100 H 93 H Respiratory Rate 18 20 Blood Pressure 164/91 H Pulse Oximetry 98 97 11/21/23 11:30 11/21/23 12:00 11/21/23 12:00 Pulse Rate 96 H 92 H Respiratory Rate 0 L 1 L Blood Pressure 117/71 Pulse Oximetry 97 96 11/21/23 12:30 11/21/23 13:00 11/21/23 13:00 Pulse Rate 91 H 93 H Respiratory Rate 8 L 16 Blood Pressure 117/68 Pulse Oximetry 96 97 11/21/23 13:30 11/21/23 14:00 11/21/23 14:00 Pulse Rate 92 H 105 H Respiratory Rate 16 9 L Blood Pressure 173/105 H Pulse Oximetry 97 97 11/21/23 14:05 11/21/23 14:05 11/21/23 14:10 Pulse Rate 100 H 112 H Respiratory Rate 24 Blood Pressure 160/82 H 160/82 H Pulse Oximetry 98 11/21/23 14:14 11/21/23 14:14 11/21/23 14:30 Pulse Rate 106 H 100 H Respiratory Rate 15 15 Blood Pressure 129/65 Pulse Oximetry 99 99 11/21/23 15:00 11/21/23 15:30 11/21/23 16:00 Pulse Rate 93 H 86 88 Respiratory Rate 0 L 15 0 L Blood Pressure Pulse Oximetry 96 95 95 Oxygen Delivery Method Room Air Oxygen Flow Rate 0 Narrative Exam Narrative: GEN: Disheveled adult male who appears older than physiologic age, Alert and oriented x 3, NAD HEENT:NC, Face symmetric CHEST: Respiratory excursions symmetric, CTAB CV: RRR, no M/R/G ABD: Soft, NT/ND, BT present in all 4 quadrants, no organomegaly or masses EXTR: warm, well perfused, no C/C/E SKIN: warm and dry, no rash NEURO: Alert and oriented x 3, nonfocal Objective Labs 11/21/23 06:25 11/21/23 14:30 Labs: Laboratory Results - last 24 hr 11/20/23 11/20/23 11/20/23 20:07 20:25 21:34 WBC 12.1 H RBC 4.33 L Hgb 10.2 L Hct 33.7 L MCV 78.0 L D MCH 23.5 L MCHC 30.2 RDW 16.0 H Plt Count 310 Neut % (Auto) 93.2 H Lymph % (Auto) 3.9 L [place] % (Auto) 2.8 L Eos % (Auto) 0.0 L Baso % (Auto) 0.1 Neut # (Auto) 81296 H Lymph # (Auto) 500 L [place] # (Auto) 300 Eos # (Auto) 0 Baso # (Auto) 0 VBG pH 7.27 L VBG pCO2 18.1 L VBG pO2 69 H VBG HCO3 8 L VBG Total CO2 7 L VBG O2 Saturation 91 H VBG Base Excess -16.7 L FiO2 % 21.0 % Sodium 136 L Potassium 5.1 Chloride 98 Carbon Dioxide 5 L* BUN 33 H Creatinine 1.99 H Estimated GFR 45 L BUN/Creatinine Ratio 16.6 Glucose 691 H* D Lactate 3.8 H Calcium 8.7 Phosphorus Total Bilirubin 0.9 AST 22 ALT 23 Alkaline Phosphatase 94 Total Protein 7.2 Albumin 4.4 Globulin 2.8 Albumin/Globulin Ratio 1.6 Lipase 35 D Urine RBC 0-1/hpf Urine WBC 0-1/hpf Ur Squamous Epith Cells None seen Urine Bacteria None seen Ur Culture Indicated? Cult not indicated Vol Urine Centrifuged 10ml (spun) Nasal Screen MRSA (PCR) Ketones 12.0 H 11/20/23 11/20/23 11/20/23 22:20 22:20 23:23 WBC RBC Hgb Hct MCV MCH MCHC RDW Plt Count Neut % (Auto) Lymph % (Auto) [place] % (Auto) Eos % (Auto) Baso % (Auto) Neut # (Auto) Lymph # (Auto) [place] # (Auto) Eos # (Auto) Baso # (Auto) VBG pH VBG pCO2 VBG pO2 VBG HCO3 VBG Total CO2 VBG O2 Saturation VBG Base Excess FiO2 % Sodium 140 Potassium 4.6 Chloride 104 Carbon Dioxide < 5 L* BUN 34 H Creatinine 2.09 H Estimated GFR 42 L BUN/Creatinine Ratio 16.3 Glucose Cancelled 617 H* Lactate 3.5 H Calcium 8.3 L Phosphorus Total Bilirubin AST ALT Alkaline Phosphatase Total Protein Albumin Globulin Albumin/Globulin Ratio Lipase Urine RBC Urine WBC Ur Squamous Epith Cells Urine Bacteria Ur Culture Indicated? Vol Urine Centrifuged Nasal Screen MRSA (PCR) Not detected Ketones 11/21/23 11/21/23 11/21/23 00:10 02:35 06:25 WBC 10.1 RBC 3.27 L Hgb 7.8 L Hct 24.4 L MCV 74.7 L D MCH 23.7 L MCHC 31.8 RDW 15.7 H Plt Count 247 Neut % (Auto) 78.8 H Lymph % (Auto) 11.0 L [place] % (Auto) 9.8 Eos % (Auto) 0.2 L Baso % (Auto) 0.2 Neut # (Auto) 8000 H Lymph # (Auto) 1100 [place] # (Auto) 1000 H Eos # (Auto) 0 Baso # (Auto) 0 VBG pH 7.17 L* VBG pCO2 20.8 L VBG pO2 48 H VBG HCO3 8 L VBG Total CO2 7 L VBG O2 Saturation 73 VBG Base Excess -19.3 L FiO2 % Sodium 143 139 Potassium 3.7 3.9 Chloride 113 H 113 H Carbon Dioxide 13 L 17 L BUN 34 H 34 H Creatinine 2.04 H 1.75 H Estimated GFR 44 L 52 L BUN/Creatinine Ratio 16.7 19.4 Glucose 182 H D 144 H Lactate Calcium 7.8 L 7.2 L Phosphorus 1.9 L Total Bilirubin 0.5 AST 16 L ALT 13 Alkaline Phosphatase 57 Total Protein 5.4 L Albumin 2.8 L Globulin 2.6 Albumin/Globulin Ratio 1.1 Lipase Urine RBC Urine WBC Ur Squamous Epith Cells Urine Bacteria Ur Culture Indicated? Vol Urine Centrifuged Nasal Screen MRSA (PCR) Ketones 4.98 H 11/21/23 11/21/23 11/21/23 07:58 10:23 14:30 WBC RBC Hgb Hct MCV MCH MCHC RDW Plt Count Neut % (Auto) Lymph % (Auto) [place] % (Auto) Eos % (Auto) Baso % (Auto) Neut # (Auto) Lymph # (Auto) [place] # (Auto) Eos # (Auto) Baso # (Auto) VBG pH VBG pCO2 VBG pO2 VBG HCO3 VBG Total CO2 VBG O2 Saturation VBG Base Excess FiO2 % Sodium 139 138 Potassium 4.0 4.0 Chloride 113 H 110 H Carbon Dioxide 19 L 19 L BUN 29 H 25 H Creatinine 1.58 H 1.43 H Estimated GFR 59 L > 60 BUN/Creatinine Ratio 18.4 17.5 Glucose 206 H 205 H Lactate 0.9 Calcium 7.3 L 7.5 L Phosphorus Total Bilirubin AST ALT Alkaline Phosphatase Total Protein Albumin Globulin Albumin/Globulin Ratio Lipase Urine RBC Urine WBC Ur Squamous Epith Cells Urine Bacteria Ur Culture Indicated? Vol Urine Centrifuged Nasal Screen MRSA (PCR) Ketones [facility] Medical History Generalized anxiety disorder Compression fracture Chronic lower back pain HTN (hypertension) Hypothyroidism Marijuana use History of MRSA infection History of pneumonia Blurry vision, bilateral Diabetic neuropathy Bipolar disorder with depression Nausea and vomiting Diabetes type 1, uncontrolled Diabetic gastroparesis Surgical History No pertinent past surgical history Family History Mother No known health problems Father No known health problems Social History household members: family Smoking Status: Former smoker alcohol intake: current Assessment & Plan Assessment & Plan narrative: 1. DKA Anion gap has closed and anion gap is now 9. He is weaned off the insulin drip about 1 hour prior to my evaluation. Will place on Lantus 10 units twice daily. Will advance to controlled carb diet. Continue IV fluids for now. Discussed with care management about ways we could assist with outpatient care to reduce risk of readmission. He is followed at [facility] for his primary care. He does live in [place]. May benefit from a onofre caregiver to assist with ensuring his batteries are functioning, his medications are filled regularly, he is making his appointments and keeping them, etc.. There is a chronic care management nurse through the [facility], but it is unclear if he a is interested in changing his PCP and be whether or not they would accept new patients. He could also access his medical case manager through [facility], but I am uncertain how much assistance they could provide with that care management on an outpatient basis. 2. SHAN Creatinine was 2.09 on admission. It is down to 1.58 this morning. Will continue IV fluids. 3. Hypophosphatemia Will replete. 4. Leukocytosis White blood cell count has returned to normal at 10.1 this morning. 5. Cannabinoid Hyperemesis syndrome Patient does report he has emesis when he uses marijuana. However, at this point he seems pre contemplative for cessation. 6. Diabetes induced gastroparesis He is on Reglan on an outpatient basis as needed. 7. Hx corneal transplant Pt reports he sees ophtho annually and last saw them 7 mos ago. Code status Full Prophy Heparin Dispo ICU Time-Based Coding :: [TOTAL MINUTES] spent with patient and on the chart (including review of chart, obtaining history, exam, reviewing outside data, placing orders, documenting exam and treatment plan, and counseling patient) on [DATE].
--- NOTE | 2023-11-21 17:29 | PC.NURSE ---
Pt off insulin drip, taking minimal PO. Periodic N/V. Periodic abdominal pain (See MAR). Blankets over head, requested lights off and blinds drawn. Ate small bites of dinner, is taking liquid PO/
[2023-11-21 18:38] LABS: BUN Creatinine Ratio 15.9 (6-22); Blood Urea Nitrogen 20 mg/dL (9-20); Calcium 7.3 mg/dL (8.4-10.2); Carbon Dioxide 19 mmol/L (22-32); Chloride 105 mmol/L (98-107); Estimated Glomerular Filt Rate > 60 mL/min (>60); Glucose 255 mg/dL (70-100); HEMOLYSIS < 15 (0-50); Potassium 3.5 mmol/L (3.4-5.1); Sodium 134 mmol/L (137-145)
[2023-11-21] MEDS: DEXTROSE 5%-0.45% NS 1,000 ML 100 ML IV (19:58)
[2023-11-21] MEDS: SODIUM CHLORIDE 0.9% FLUSH 10 ML IV (21:30)
[2023-11-21] MEDS: PANTOPRAZOLE DR 40 MG TABLET PO (21:38)
[2023-11-21] MEDS: SUCRALFATE 1 GM TABLET PO (21:38)
[2023-11-21 22:09] LABS: BUN Creatinine Ratio 15.7 (6-22); Blood Urea Nitrogen 18 mg/dL (9-20); Calcium 7.3 mg/dL (8.4-10.2); Carbon Dioxide 21 mmol/L (22-32); Chloride 103 mmol/L (98-107); Estimated Glomerular Filt Rate > 60 mL/min (>60); Glucose 263 mg/dL (70-100); HEMOLYSIS 18 (0-50); Potassium 3.8 mmol/L (3.4-5.1); Sodium 132 mmol/L (137-145)
[2023-11-22] VITALS (14 sets, daily range): BP systolic 143–187; BP diastolic 89–110; PULSE 78–97; RESP 10–20; TEMP 36–36.8; O2SAT 95–100
[2023-11-22] MEDS: PROCHLORPERAZINE 10 MG/2 ML VIAL IV ×3 (00:58→20:26)
[2023-11-22] MEDS: LEVOTHYROXINE 50 MCG TABLET PO (05:35)
[2023-11-22] MEDS: MORPHINE 2 MG/ML INJ IV ×3 (06:24→20:28)
[2023-11-22 06:32] LABS: BUN Creatinine Ratio 10.6 (6-22); Blood Urea Nitrogen 11 mg/dL (9-20); Calcium 7.8 mg/dL (8.4-10.2); Carbon Dioxide 21 mmol/L (22-32); Chloride 100 mmol/L (98-107); Estimated Glomerular Filt Rate > 60 mL/min (>60); Glucose 284 mg/dL (70-100); HEMOLYSIS 34 (0-50); Potassium 3.6 mmol/L (3.4-5.1); Sodium 134 mmol/L (137-145)
--- NOTE | 2023-11-22 07:03 | PC.NURSE ---
Pt has slept most of this shift; he is tolerating liquids but declines solid food; his grandmother called and she would like to speak with a social service worker regarding poss placement for pt as she cannot get him to care for himself
[2023-11-22 08:37] LABS: Add Manual Diff / Slide Review NO; Basophils Absolute Auto 100 /uL (0-100); Basophils Percent Auto 0.4 % (0-2); Eosinophils Absolute Auto 0 /uL (0-450); Eosinophils Percent Auto 0.1 % (2-4); Hematocrit 30.2 % (41-53); Hemoglobin 9.7 g/dL (13.5-17.5); Lymphocytes Absolute Auto 1600 /uL (1100-4500); Lymphocytes Percent Auto 12.8 % (25-40); Mean Corpuscular HGB Conc 32.1 % (30-36); Mean Corpuscular Hemoglobin 23.7 PG (26-34); Mean Corpuscular Volume 73.7 fL (80-100); Monocytes Absolute Auto 1000 /uL (0-900); Monocytes Percent Auto 7.9 % (3-14); Neutrophils Absolute Auto 9900 /uL (1500-7000); Neutrophils Percent Auto 78.8 % (50-75); Platelet Count 299 X10^3/uL (150-400); Red Blood Cell Count 4.09 X10^6/uL (4.5-5.9); Red Cell Distribution Width 15.6 % (11.6-14.8); White Blood Cell Count 12.6 X10^3/uL (4.5-11.0)
[2023-11-22] MEDS: INSULIN LISPRO 100 UNIT/ML 3ML VIAL SUBCUT ×3 (09:19→17:30)
[2023-11-22] MEDS: INSULIN GLARGINE 100 UNIT/ML 3ML PEN 10 UNIT SUBCUT (09:23)
[2023-11-22] MEDS: METOPROLOL ER 50 MG TABLET PO (09:25)
--- NOTE | 2023-11-22 11:49 | PC.NURSE ---
Insulin administration (See MAR) verified by this RN and Erica Mckeon RN with student nurse.
[2023-11-22] MEDS: ACETAMINOPHEN 325 MG TABLET 650 MG PO (12:01)
[2023-11-22] MEDS: SODIUM CHLORIDE 0.9% FLUSH 10 ML IV ×2 (12:05→20:29)
--- NOTE | 2023-11-22 16:23 | PM.PN.1 ---
Subjective Subjective Interval history: 33-year-old male with type 1 diabetes diagnosed at age 16, complicated by peripheral neuropathy. He has a history of frequent hospitalizations secondary to cannabinoid hyperemesis syndrome, running out of medications, diabetic gastroparesis which lead to DKA. He was in DKA, now on BID lantus. He remains nauseous, not tolerating much of anything PO today. Reports ativan works well for his nausea at home, says he is getting mainly compazine with some effectiveness today. Exam Vital Signs (past 8 hours): - 11/22/23 09:25 11/22/23 09:55 11/22/23 10:00 Temperature Pulse Rate 96 H 96 H 86 Respiratory Rate 12 Blood Pressure 182/110 H Pulse Oximetry Oxygen Flow Rate 11/22/23 10:30 11/22/23 11:00 11/22/23 11:30 Temperature Pulse Rate 84 83 83 Respiratory Rate 14 11 L 10 L Blood Pressure Pulse Oximetry Oxygen Flow Rate 11/22/23 12:00 Temperature 98.3 F Pulse Rate 91 H Respiratory Rate 20 Blood Pressure 181/92 H Pulse Oximetry 100 Oxygen Flow Rate 0 Oxygen Delivery Method Room Air Oxygen Flow Rate 0 Narrative Exam Narrative: GEN: Disheveled adult male who appears older than physiologic age, Alert and oriented x 3, NAD HEENT:NC, Face symmetric CHEST: Respiratory excursions symmetric, CTAB CV: RRR, no M/R/G ABD: Soft, NT/ND, BT present in all 4 quadrants, no organomegaly or masses EXTR: warm, well perfused, no C/C/E SKIN: warm and dry, no rash NEURO: Alert and oriented x 3, nonfocal Objective Labs 11/22/23 08:30 11/22/23 06:10 Labs: Laboratory Results - last 24 hr 11/21/23 11/21/23 11/22/23 18:15 21:50 06:10 WBC RBC Hgb Hct MCV MCH MCHC RDW Plt Count Neut % (Auto) Lymph % (Auto) [place] % (Auto) Eos % (Auto) Baso % (Auto) Neut # (Auto) Lymph # (Auto) [place] # (Auto) Eos # (Auto) Baso # (Auto) Sodium 134 L 132 L 134 L Potassium 3.5 3.8 3.6 Chloride 105 103 100 Carbon Dioxide 19 L 21 L 21 L BUN 20 18 11 Creatinine 1.26 H 1.15 1.04 Estimated GFR > 60 > 60 > 60 BUN/Creatinine Ratio 15.9 15.7 10.6 Glucose 255 H 263 H 284 H Calcium 7.3 L 7.3 L 7.8 L 11/22/23 08:30 WBC 12.6 H RBC 4.09 L Hgb 9.7 L Hct 30.2 L MCV 73.7 L MCH 23.7 L MCHC 32.1 RDW 15.6 H Plt Count 299 Neut % (Auto) 78.8 H Lymph % (Auto) 12.8 L [place] % (Auto) 7.9 Eos % (Auto) 0.1 L Baso % (Auto) 0.4 Neut # (Auto) 9900 H Lymph # (Auto) 1600 [place] # (Auto) 1000 H Eos # (Auto) 0 Baso # (Auto) 100 Sodium Potassium Chloride Carbon Dioxide BUN Creatinine Estimated GFR BUN/Creatinine Ratio Glucose Calcium PFSH Medical History Generalized anxiety disorder Compression fracture Chronic lower back pain HTN (hypertension) Hypothyroidism Marijuana use History of MRSA infection History of pneumonia Blurry vision, bilateral Diabetic neuropathy Bipolar disorder with depression Nausea and vomiting Diabetes type 1, uncontrolled Diabetic gastroparesis Surgical History No pertinent past surgical history Family History Mother No known health problems Father No known health problems Social History household members: family Smoking Status: Former smoker alcohol intake: current Assessment & Plan Assessment & Plan narrative: 1. DKA -DKA resolved, now on BID insulin, he reports unable to get pump back. Will continue to adjust lantus. Not eating much will continue lantus BID, increase to 15 U BID for elevated glucose levels today. Once tolerating more PO intake restart meal-time lispro as well. 2. SHAN Creatinine was 2.09 on admission. It is down to 1.04 today, can stop IV fluids\. 3. Hypophosphatemia Will replete. 4. Leukocytosis White blood cell count has returned to normal at 10.1 this morning. 5. Cannabinoid Hyperemesis syndrome Patient does report he has emesis when he uses marijuana. However, at this point he seems pre contemplative for cessation. Has ativan PO BID prn at home, discussed with RN and will see if resumption of ativan helps with nausea. - has prn ativan, compazine, zofran, and reglan ordered. May need to trial different schedules to see which works best. 6. Diabetes induced gastroparesis He is on Reglan on an outpatient basis as needed. 7. Hx corneal transplant Pt reports he sees ophtho annually and last saw them 7 mos ago. Code status Full Prophy Heparin Dispo Acute care, discharge home once tolerating adequate oral intake. Time-Based Coding :: [TOTAL MINUTES] spent with patient and on the chart (including review of chart, obtaining history, exam, reviewing outside data, placing orders, documenting exam and treatment plan, and counseling patient) on [DATE].
[2023-11-22] MEDS: LORazepam 1 MG TABLET PO (17:36)
--- NOTE | 2023-11-22 19:23 | PC.NURSE ---
Pt flat affect, blanket over head. BP elevated, provided notified.
[2023-11-22] MEDS: SUCRALFATE 1 GM TABLET PO (20:26)
[2023-11-22] MEDS: PANTOPRAZOLE DR 40 MG TABLET PO (20:26)
[2023-11-22] MEDS: INSULIN GLARGINE 100 UNIT/ML 3ML PEN 15 UNIT SUBCUT (20:27)
[2023-11-23 04:00] VITALS: BP 177/118; PULSE 89; RESP 17; TEMP 36.7; O2SAT 99
[2023-11-23] MEDS: MORPHINE 2 MG/ML INJ IV (04:47)
[2023-11-23] MEDS: PROCHLORPERAZINE 10 MG/2 ML VIAL IV (04:47)
[2023-11-23 04:48] LABS: Add Manual Diff / Slide Review NO; Basophils Absolute Auto 100 /uL (0-100); Eosinophils Absolute Auto 100 /uL (0-450); Eosinophils Percent Auto 0.7 % (2-4); Hematocrit 33.1 % (41-53); Hemoglobin 10.5 g/dL (13.5-17.5); Lymphocytes Absolute Auto 1600 /uL (1100-4500); Lymphocytes Percent Auto 16.9 % (25-40); Mean Corpuscular HGB Conc 31.9 % (30-36); Mean Corpuscular Hemoglobin 23.5 PG (26-34); Mean Corpuscular Volume 73.8 fL (80-100); Monocytes Absolute Auto 900 /uL (0-900); Monocytes Percent Auto 9.5 % (3-14); Neutrophils Absolute Auto 6700 /uL (1500-7000); Neutrophils Percent Auto 71.9 % (50-75); Red Blood Cell Count 4.49 X10^6/uL (4.5-5.9); Red Cell Distribution Width 15.5 % (11.6-14.8); White Blood Cell Count 9.3 X10^3/uL (4.5-11.0)
[2023-11-23 04:59] LABS: BUN Creatinine Ratio 11.5 (6-22); Blood Urea Nitrogen 11 mg/dL (9-20); Calcium 8.4 mg/dL (8.4-10.2); Carbon Dioxide 28 mmol/L (22-32); Chloride 95 mmol/L (98-107); Estimated Glomerular Filt Rate > 60 mL/min (>60); Glucose 169 mg/dL (70-100); HEMOLYSIS < 15 (0-50); Magnesium 1.7 mg/dL (1.6-2.3); Potassium 3.2 mmol/L (3.4-5.1); Sodium 132 mmol/L (137-145)
[2023-11-23 05:01] LABS: Platelet Count 256 X10^3/uL (150-400)
[2023-11-23] MEDS: LEVOTHYROXINE 50 MCG TABLET PO (06:09)
[2023-11-23 08:00] VITALS: BP 141/96; PULSE 88; RESP 14; TEMP 37.3; O2SAT 99
[2023-11-23] MEDS: INSULIN GLARGINE 100 UNIT/ML 3ML PEN 15 UNIT SUBCUT (08:58)
[2023-11-23] MEDS: INSULIN LISPRO 100 UNIT/ML 3ML VIAL SUBCUT ×2 (08:58→12:28)
--- NOTE | 2023-11-23 09:04 | P.DS_ITS ---
History of Present Illness History of Present Illness Date Patient Seen: 11/23/23 Time Patient Seen: 09:04 Chief complaint: abd pain Narrative: Per admitting provider, 33-year-old male with past medical history of insulin dependent diabetes on insulin pump, hypertension, hypothyroidism, marijuana use, and diabetic gastroparesis presents with complaint of elevated glucose with nausea and vomiting. Per the patient report, the patient presented to our ER last night and was found to have a glucose in the 300s. The patient was given IV fluid and was deemed stable and was sent home as patient did not have DKA at that time. However, the patient states that his insulin pump ran our battery last night. The patient glucose was great than 500 at home today. The patient also has some nausea, vomiting and abdominal discomfort. The patient, however, denies any fever, chills, chest pain, coughing, or dysuria. In our emergency room, the patient was found to be in DKA. Bicarb was five and pH was 7.2. Glucose was in the 600s and creatinine was 1.99. The patient was started on insulin drip without bolus. WBC was 12 but no clear signs of infection found. UA was negative. I asked our ER physician to give 10 units of regular insulin and give additional IV bolus as patient was only given 1L of NS bolus so far. Discharge Providers Provider Date of admission: 11/20/23 22:31 Discharge Date: 11/23/23 Primary care physician: James Jung DO Discharge provider: Jagjit Phipps DO Summary Hospital Course Discharge Diagnosis: 1. DKA, type 1 2. SHAN 3. Hypophosphatemia 4. Leukocytosis 5. Cannabinoid Hyperemesis syndrome 6. Diabetes induced gastroparesis 7. Hx corneal transplant Hospital Course: This is a 33 year old male with PMH of cannabinoid hyperemesis, type 1 DM who had his batter on his pump run out and presented with DKA. He was treated with insulin infusion and fluids. Cr was 2.09 on admission and improved to his baseline prior to discharge. He was transitioned to basal/bolus insulin therapy after resolution of DKA. He will return home and restart his pump after battery replacement. He did take a while to tolerate a general diet, but was able to do so on the day of discharge after resumption of his home ativan. No changes to his home therapies are recommended at the time of discharge. Time Spent with Patient Time spent: Greater than 30 minutes Exam Vital Signs (past 8 hours): - 11/23/23 04:00 Temperature 98.0 F Pulse Rate 89 Respiratory Rate 17 Blood Pressure 177/118 H Pulse Oximetry 99 Oxygen Flow Rate 0 Oxygen Delivery Method Room Air Oxygen Flow Rate 0 Narrative Exam Narrative: GEN: Disheveled adult male who appears older than physiologic age, Alert and oriented x 3, NAD HEENT:NC, Face symmetric CHEST: Respiratory excursions symmetric, CTAB CV: RRR, no M/R/G ABD: Soft, NT/ND, BT present in all 4 quadrants, no organomegaly or masses EXTR: warm, well perfused, no C/C/E SKIN: warm and dry, no rash NEURO: Alert and oriented x 3, nonfocal Objective Labs 11/23/23 04:15 11/23/23 04:15 Labs: Laboratory Results - last 24 hr 11/23/23 04:15 WBC 9.3 RBC 4.49 L Hgb 10.5 L Hct 33.1 L MCV 73.8 L MCH 23.5 L MCHC 31.9 RDW 15.5 H Plt Count 256 Neut % (Auto) 71.9 Lymph % (Auto) 16.9 L [place] % (Auto) 9.5 Eos % (Auto) 0.7 L Baso % (Auto) 1.0 Neut # (Auto) 6700 Lymph # (Auto) 1600 [place] # (Auto) 900 Eos # (Auto) 100 Baso # (Auto) 100 Sodium 132 L Potassium 3.2 L Chloride 95 L Carbon Dioxide 28 BUN 11 Creatinine 0.96 Estimated GFR > 60 BUN/Creatinine Ratio 11.5 Glucose 169 H D Calcium 8.4 Magnesium 1.7 PFSH Medical History Generalized anxiety disorder Compression fracture Chronic lower back pain HTN (hypertension) Hypothyroidism Marijuana use History of MRSA infection History of pneumonia Blurry vision, bilateral Diabetic neuropathy Bipolar disorder with depression Nausea and vomiting Diabetes type 1, uncontrolled Diabetic gastroparesis Surgical History No pertinent past surgical history Family History Mother No known health problems Father No known health problems Social History household members: family Smoking Status: Former smoker alcohol intake: current Discharge Plan Discharge Plan Patient Disposition: Home Provider Discharge Comment: You were admitted to the hospital with DKA. No changes to your home medications were recommended at this time. Continue anti- nausea medications and resume insulin pump when you get home and change the battery. Discharge orders & Medications Prescriptions: Continued hydroxyzine HCl 10 mg tablet 10 mg PO TID PRN (Reason: anxiety) Qty: 84 0RF metoprolol succinate 50 mg tablet extended release 24 hr 50 mg PO DAILY metoclopramide HCl [Reglan] 10 mg tablet 10 mg PO Q8HR PRN (Reason: nausea and vomiting) Qty: 40 2RF omeprazole 40 mg capsule,delayed release(DR/EC) 40 mg PO BID Qty: 60 3RF levothyroxine 50 mcg tablet 50 mcg PO DAILY Qty: 90 1RF Humulin R Regular U-100 Insuln 100 unit/mL solution 9 unit SUBCUT ACHS Patient Comments: [NO ORIGINAL SIG] Rx Instructions: via insulin pump paroxetine HCl 10 mg tablet 10 mg PO DAILY Qty: 30 2RF sucralfate [Carafate] 1 gram tablet 1 g PO BID Qty: 60 1RF lorazepam 1 mg tablet 1 mg PO BID PRN (Reason: nausea and vomiting) Qty: 30 1RF diphenhydramine HCl 25 mg Tablet 25 mg PO BEDTIME PRN (Reason: Insomnia) (DME) Extended [place] 3 mL Misc MISCELLANEOUS Rx Instructions: patient uses insulin pump zolpidem [Ambien] 5 mg Tablet 5 mg PO BEDTIME PRN (Reason: Insomnia) Follow up/Referrals: James Jung DO [Primary Care Provider] - 12/02/23 10:30 am (Appt:12/01 @ 10:[address] Jung please arrive 15 min prior to scheduled appointment time ) Diet/Activity/Treatments Diet: Diet as Tolerated Diet comment: As tolerated, carb controlled Activity: As tolerated. Visit Report/Discharge Packet Stand Alone Forms: Patient Portal/API, Stroke Signs & Symptoms Discharge Data Primary Care Provider: James Jung
[2023-11-23] MEDS: PANTOPRAZOLE DR 40 MG TABLET PO (09:14)
[2023-11-23] MEDS: LORazepam 1 MG TABLET PO (09:14)
[2023-11-23] MEDS: PARoxetine 20 MG TABLET 10 MG PO (09:14)
[2023-11-23] MEDS: METOPROLOL ER 50 MG TABLET PO (09:14)
[2023-11-23] MEDS: SUCRALFATE 1 GM TABLET PO (09:14)
[2023-11-23] MEDS: POTASSIUM CHLORIDE 20 MEQ TAB 40 MEQ PO (10:51)
--- NOTE | 2023-11-23 13:20 | CM.DPNOTE ---
DC Note Patient is discharging home today with family. Transport TBD. Close outpatient follow up recommended. Patient has been scheduled to see nurse educator Maye Aviles. Updated the care transitions team in Dr Jung's office. Provided them with Mickey Templeton CM's contact info P [phone]. RGETA
== END 2023-11-23 13:08 | disposition home or self-care (01) | DRG 420 ==
LOC: ED 22:31 → AC 22:31 → ICU 22:44
PROVIDERS: Family Medicine; Internal Medicine; Admitting Provider Internal Medicine; Emergency Provider Emergency Medicine; PCP Family Medicine; Referring Provider Emergency Medicine; Visit Provider Internal Medicine
DX: E10.10 Type 1 diabetes mellitus with ketoacidosis without coma (principal); N17.9 Acute kidney failure, unspecified; T85.694A Other mechanical complication of insulin pump, initial encounter; T38.3X6A Underdosing of insulin and oral hypoglycemic [antidiabetic] drugs, initial encounter; E86.0 Dehydration; I10 Essential (primary) hypertension; E03.9 Hypothyroidism, unspecified; E83.39 Other disorders of phosphorus metabolism; R11.2 Nausea with vomiting, unspecified; F12.90 Cannabis use, unspecified, uncomplicated; E10.43 Type 1 diabetes mellitus with diabetic autonomic (poly)neuropathy; K31.84 Gastroparesis; F41.1 Generalized anxiety disorder; F32.A Depression, unspecified; G47.00 Insomnia, unspecified; Z96.41 Presence of insulin pump (external) (internal); Z94.7 Corneal transplant status; Z87.891 Personal history of nicotine dependence
CPT/HCPCS: 36415; 80048; 80053; 80320; 81003; 81015; 82009; 82805; 82962; 83605; 83690; 83735; 83986; 84100; 84145; 85025; 87797; 96361; 96365; 96375; 99284; J0136; J0780; J1815; J2270; J2405; J2470; J7050

== ENCOUNTER 2023-11-27 07:02 | Emergency (ER) | payer OTHER, MEDICAID, SELFPAY ==
[2023-11-20 23:00] VITALS: BMI 24.3
[2023-11-27] VITALS (18 sets, daily range): BP systolic 111–159; BP diastolic 67–106; PULSE 81–101; RESP 12–20; TEMP 36.6; O2SAT 88–100; BMI 24.3
--- NOTE | 2023-11-27 07:39 | DI.RAD.S_ITS ---
PROCEDURE: XR CHEST 1V INDICATIONS: chest pain TECHNIQUE: One view of the chest was acquired. COMPARISON: None. FINDINGS: Surgical changes and devices: None. Lungs and pleura: Lungs are clear. No pleural effusions or pneumothorax. Mediastinum: Mediastinal contours appear normal. Heart size is normal. Bones and chest wall: No suspicious bony lesions. Overlying soft tissues appear unremarkable. IMPRESSION: No acute cardiopulmonary abnormality is seen. Dictated by: Dominic Padilla M.D. on 11/27/2023 at 8:33 Approved by: Dominic Padilla M.D. on 11/27/2023 at 8:34
--- NOTE | 2023-11-27 07:45 | EKG_ITS ---
[place] [id number] [address] [place] [id number] Test Date: 2023-11-27 Pat Name: Valentin Noble Department: [facility] Room: Gender: Male Pathology Technician: RACHELL : 1990 Requested By: Order Number: [id number] Reading MD: Kiran Moore Measurements Intervals [place] Rate: 94 P: 72 RI: 140 QRS: -55 QRSD: 82 T: 58 QT: 380 QTc: 475 Interpretive Statements Normal sinus rhythm Left anterior fascicular block Electronically Signed On 11-29-2023 15:51:07 PDT by Kiran Moore
--- NOTE | 2023-11-27 08:18 | ED_ITS ---
HPI - Fall General Chief Complaint: Syncope Stated Complaint: fall Time Seen by Provider: 11/27/23 07:09 History of Present Illness HPI Narrative: Patient 33-year-old male history of insulin-dependent diabetic recently admitted for DKA it appears she is admitted at least once a month for uncontrolled diabetes. He was discharged on the . He reports that he has not stopped throwing up. He was having technical difficulties with his insulin pump and batteries but he says that has been solved. His glucose is 180. This morning he reports he went to the kitchen he got dizzy fell down passed out for a 2nd. Having a little bit of mild neck pain no numbness or tingling continues to be nauseous. He has anti nausea medications at home including lorazepam which he says is not working. Not on any antiplatelet anticoagulation medications. No no numbness tingling or weakness since his fall Related Data Home Medications Medication Instructions Recorded Confirmed diphenhydramine HCl 25 mg tablet 25 mg PO BEDTIME PRN Insomnia 07/09/23 11/21/23 insulin pump syringe 3 mL 10/04/23 11/21/23 (Extended Tonica) metoprolol succinate 50 mg 50 mg PO DAILY 10/22/23 11/21/23 tablet,extended release 24 hr zolpidem 5 mg tablet (Ambien) 5 mg PO BEDTIME PRN Insomnia 11/05/23 11/21/23 insulin regular human 100 unit/mL 9 unit SUBCUT ACHS 11/15/23 11/21/23 injection solution (Humulin R Regular U-100 Insulin) Previous Rx's Medication Instructions Recorded levothyroxine 50 mcg tablet 50 mcg PO DAILY #90 tabs 10/22/23 metoclopramide HCl 10 mg tablet 10 mg PO Q8HR PRN nausea and 10/22/23 (Reglan) vomiting #40 tabs omeprazole 40 mg capsule,delayed 40 mg PO BID #60 caps 10/22/23 release hydroxyzine HCl 10 mg tablet 10 mg PO TID PRN anxiety #84 tabs 11/08/23 lorazepam 1 mg tablet 1 mg PO BID PRN nausea and 11/15/23 vomiting #30 tabs paroxetine HCl 10 mg tablet 10 mg PO DAILY #30 tabs 11/15/23 sucralfate 1 gram tablet (Carafate) 1 g PO BID #60 tabs 11/15/23 promethazine 25 mg rectal 25 mg AR Q6H PRN nausea and 11/27/23 suppository vomiting #12 ea Allergies Allergy/AdvReac Type Severity Reaction Status Date / Time aspirin [ASPIRIN] Allergy Unknown MAKES ME Verified 11/15/23 15:03 GO DEAF hydrocodone [HYDROCODONE] AdvReac Intermediate VOMITING Verified 11/15/23 15:03 ibuprofen [IBUPROFEN] AdvReac Intermediate HURTS Verified 11/15/23 15:03 KIDNEYS Patient History Medical History Generalized anxiety disorder Compression fracture Chronic lower back pain HTN (hypertension) Hypothyroidism Marijuana use History of MRSA infection History of pneumonia Blurry vision, bilateral Diabetic neuropathy Bipolar disorder with depression Nausea and vomiting Diabetes type 1, uncontrolled Diabetic gastroparesis Surgical History No pertinent past surgical history Family History Mother No known health problems Father No known health problems Social History household members: family Smoking Status: Former smoker alcohol intake: current Smoking Status: Former smoker alcohol intake frequency: holidays/special occasions only Alcohol type: hard liquor Substance Use Type: marijuana Exam Initial Vital Signs Initial Vital Signs: Vital Signs Temperature 97.8 F 11/27/23 07:14 Pulse Rate 101 H 11/27/23 07:14 Respiratory Rate 20 11/27/23 07:14 Blood Pressure 159/106 H 11/27/23 07:14 Pulse Oximetry 100 11/27/23 07:14 Oxygen Delivery Method Room Air 11/27/23 07:14 GENERAL: Chronically ill 33-year-old male appears older than stated age and in no acute distress. HEENT: Head atraumatic,EOMI, pupils reactive, face symmetric, moist mucous membranes CARDIOVASCULAR: Regular rate and rhythm without murmurs, rubs or gallops. RESPIRATORY: Breath sounds equal bilaterally, no wheezes rales or rhonchi. ABDOMEN: Soft, nontender. Normoactive bowel sounds all 4 quadrants. No guarding or rebound. EXTREMITIES: Normal range of motion, no clubbing or edema. Neurovascularly intact NEUROLOGICAL: Alert and oriented x4.Normal gait and speech. Cranial nerves II through XII grossly intact. Asphalt Paver strength equal bilaterally SKIN: Warm, dry, no laceration, no petechiae, no rashes or lesions. Course Orders Ordered: ED Orders 11/27/23 07:39 XR chest 1V Stat EKG-12 Lead Stat 11/27/23 08:23 Venous Blood Gas STAT 11/27/23 08:30 Complete Blood Count AUTO DIFF Stat Comprehensive Metabolic Panel Stat Ketones (Beta-Hydroxybutyrate) Stat Lactate (Lactic Acid) Stat Lipase Stat Magnesium Stat NT-proBNP (BNP-Adult 18+) Stat PTT Partial Thromboplastin Bernard Stat Prothrombin Time INR Stat Troponin & CK Cardiac Panel Stat 11/27/23 08:37 Venous Blood Gas Routine 11/27/23 11:28 Consult to INPATIENT CODER - [employer]er Stat Discontinued Medications Sodium Chloride (Normal Saline 0.9%) 1,000 mls @ 1,000 mls/hr IV BOLUS ONE Stop: 11/27/23 10:05 Last Infusion: 11/27/23 10:42 Dose: Infused Documented By: Admin: 11/27/23 09:23 Dose: 1,000 mls/hr Documented By: SANDRA Lorazepam (Lorazepam 2 Mg/Ml Inj) 1 mg IV NOW ONE Stop: 11/27/23 10:01 Last Admin: 11/27/23 10:48 Dose: 1 mg Documented By: SANDRA Metoclopramide HCl (Metoclopramide 10 Mg/2 Ml Inj) 10 mg IV NOW ONE Stop: 11/27/23 08:24 Last Admin: 11/27/23 08:47 Dose: 10 mg Documented By: CM Vital Signs Vital signs: Vital Signs - 8 hr 11/27/23 08:30 11/27/23 08:31 11/27/23 08:31 Temperature Pulse Rate 96 H 96 H Respiratory Rate 19 19 Blood Pressure 123/85 Pulse Oximetry 100 100 Oxygen Delivery Method Oxygen Flow Rate 11/27/23 09:00 11/27/23 09:00 11/27/23 09:30 Temperature Pulse Rate 92 H 93 H Respiratory Rate 15 17 Blood Pressure 123/93 H Pulse Oximetry 100 99 Oxygen Delivery Method Oxygen Flow Rate 11/27/23 09:30 11/27/23 10:00 11/27/23 10:00 Temperature Pulse Rate 90 Respiratory Rate 12 Blood Pressure 123/79 126/83 Pulse Oximetry 97 Oxygen Delivery Method Oxygen Flow Rate 11/27/23 10:30 11/27/23 10:30 11/27/23 10:59 Temperature Pulse Rate 85 100 H Respiratory Rate 12 17 Blood Pressure 118/78 Pulse Oximetry 98 100 Oxygen Delivery Method Nasal Cannula Nasal Cannula Oxygen Flow Rate 2 2 11/27/23 11:00 11/27/23 11:00 11/27/23 11:20 Temperature Pulse Rate 93 H Respiratory Rate 14 12 Blood Pressure 154/105 H Pulse Oximetry 100 88 L Oxygen Delivery Method Nasal Cannula Room Air Oxygen Flow Rate 2 11/27/23 11:30 11/27/23 11:30 11/27/23 12:00 Temperature Pulse Rate 85 Respiratory Rate 19 Blood Pressure 137/86 111/67 Pulse Oximetry 100 Oxygen Delivery Method Oxygen Flow Rate 11/27/23 12:00 11/27/23 12:30 11/27/23 12:30 Temperature Pulse Rate 88 90 Respiratory Rate 12 12 Blood Pressure 157/101 H Pulse Oximetry 99 100 Oxygen Delivery Method Oxygen Flow Rate 11/27/23 13:00 11/27/23 13:00 11/27/23 13:30 Temperature Pulse Rate 90 83 Respiratory Rate 12 19 Blood Pressure 154/102 H Pulse Oximetry 100 100 Oxygen Delivery Method Oxygen Flow Rate 11/27/23 13:30 11/27/23 14:00 11/27/23 14:00 Temperature 97.8 F Pulse Rate 85 Respiratory Rate 17 Blood Pressure 137/98 H 147/104 H Pulse Oximetry 100 Oxygen Delivery Method Oxygen Flow Rate MDM - Fall Lab Data 11/27/23 08:30 11/27/23 08:30 Labs: Lab Results 11/27/23 11/27/23 11/27/23 Range/Units 08:30 08:37 10:55 WBC 15.1 H (4.5-11.0) X10^3/uL RBC 5.29 (4.5-5.9) X10^6/uL Hgb 12.6 L (13.5-17.5) g/dL Hct 38.7 L (41-53) % MCV 73.3 L (80-100) fL MCH 23.8 L (26-34) PG MCHC 32.5 (30-36) % RDW 15.5 H (11.6-14.8) % Plt Count 402 H (150-400) X10^3/uL Neut % (Auto) 76.5 H (50-75) % Lymph % (Auto) 12.9 L (25-40) % [place] % (Auto) 10.1 (3-14) % Eos % (Auto) 0.2 L (2-4) % Baso % (Auto) 0.3 (0-2) % Neut # (Auto) 86577 H (3952-0382) /uL Lymph # (Auto) 2000 (1587-6896) /uL [place]gs # (Auto) 1500 H (0-900) /uL Eos # (Auto) 0 (0-450) /uL Baso # (Auto) 0 (0-100) /uL PT 11.3 (9.4-12.5) SECONDS INR 1.0 (0.9-1.3) APTT 28 (25.1-36.5) SECONDS VBG pH 7.58 H (7.33-7.43) VBG pCO2 22.3 L (45-50) mmHg VBG pO2 173 H (35-45) mmHg VBG HCO3 21 L (24-28) mmol/L VBG Total CO2 20 L (24-29) mmol/L VBG O2 Saturation 100 H (70-75) % VBG Base Excess 0.6 (0-4) mmol/L FiO2 % 21 % % Sodium 132 L (137-145) mmol/L Potassium 3.5 (3.4-5.1) mmol/L Chloride 91 L (98-107) mmol/L Carbon Dioxide 20 L (22-32) mmol/L BUN 35 H (9-20) mg/dL Creatinine 1.84 H (0.66-1.25) mg/dL Estimated GFR 49 L (>60) mL/min BUN/Creatinine Ratio 19.0 (6-22) Glucose 189 H (70-100) mg/dL Lactate 2.2 H 1.1 (0.7-2.1) mmol/L Calcium 10.1 (8.4-10.2) mg/dL Magnesium 2.4 H (1.6-2.3) mg/dL Total Bilirubin 1.4 H (0.2-1.3) mg/dL AST 27 (17-59) IU/L ALT 16 (<50) IU/L Alkaline Phosphatase 100 (38-126) U/L Total Creatine Kinase 67 (55-170) U/L Troponin I 0.013 (0.01-0.034) ng/mL NT-Pro-B Natriuret Pep 124 (<125) pg/mL Total Protein 8.2 (6.3-8.2) g/dL Albumin 4.6 (3.5-5.0) g/dL Globulin 3.6 (1.7-4.1) g/dL Albumin/Globulin Ratio 1.3 (1.0-2.8) Lipase 114 D (23-300) U/L Ketones 8.44 H (<0.27) mmol/L Imaging Data Chest x-ray: Radiologist's Impression: TECHNIQUE: One view of the chest was acquired. COMPARISON: None. FINDINGS: Surgical changes and devices: None. Lungs and pleura: Lungs are clear. No pleural effusions or pneumothorax. Mediastinum: Mediastinal contours appear normal. Heart size is normal. Bones and chest wall: No suspicious bony lesions. Overlying soft tissues appear unremarkable. IMPRESSION: No acute cardiopulmonary abnormality is seen. Dictated by: Dominic Padilla M.D. on 11/27/2023 at 8:33 ECG Data Attestation: I personally reviewed and interpreted this ECG as follows: Prior ECG tracings: available for review Interpretation: Normal sinus rhythm rate 70 AR interval 152 QRS [address] changes MDM Narrative Medical decision making narrative: [facility] CC: Fall, diabetes Complicating co-morbidities: Uncontrolled type 1 diabetes Medical records reviewed: Previous admissions ED visits have been reviewed Differential considered: Vasovagal syncope cardiac syncope DKA Exam documented above, pertinent findings include: Chronically ill male mildly dry mucous membranes abdomen is soft no peritoneal signs Lab Test results independently reviewed as above. Pertinent findings: pH7.59 Ketones 8.44 Anion Gap 21 Glucose 189 WBC 15 Independently reviewed EKG as above no ischemia Imaging studies independently reviewed: No acute cardiopulmonary process Consultations: social work Treatments: IV fluids Reglan, ativan Re-evaluations: 11:20 Sleeping Discussion: Patient 33-year-old male history of type 1 diabetes poorly controlled gastroparesis presenting today with ongoing vomiting. He has no sign of DKA today although it is clear he was vomiting. Mild SHAN creatinine 1.84 it was previously 0.96. Family concerns he is unable to be properly cared for home social work consult placed. Patient has been sleeping after Ativan no nausea or vomiting. He is taking in ice [employer]. He is gastroparesis from uncontrolled diabetes. Does not meet admission criteria today spoke with social work. He is getting outpatient help in follow-up. Discharge Plan Departure Patient Disposition: Home Clinical Impression: Diabetes mellitus with gastroparesis Instructions: DI for Gastroparesis Activity Restrictions/Additional Instructions: *You have been diagnosed with gastroparesis *What to do: At this time try and keep fluids down, all amounts frequently, You are going to have to try and meet with social work in your primary care provider. Your nausea and vomiting is not going to get better until you get your diabetes under control *Continue to take medications as directed Phenergan suppositories 25 mg as needed for nausea or vomiting maybe used in addition to other medications *Follow up with your primary care provider in 2-3 days or call [phone] *Return to ER if you should have persistent vomiting abdominal pain dizziness lightheadedness fever or any new, worsening or concerning symptoms Prescriptions: New promethazine 25 mg suppository 25 mg AR Q6H PRN (Reason: nausea and vomiting) Qty: 12 0RF No Action hydroxyzine HCl 10 mg tablet 10 mg PO TID PRN (Reason: anxiety) Qty: 84 0RF metoprolol succinate 50 mg tablet extended release 24 hr 50 mg PO DAILY metoclopramide HCl [Reglan] 10 mg tablet 10 mg PO Q8HR PRN (Reason: nausea and vomiting) Qty: 40 2RF omeprazole 40 mg capsule,delayed release(DR/EC) 40 mg PO BID Qty: 60 3RF levothyroxine 50 mcg tablet 50 mcg PO DAILY Qty: 90 1RF Humulin R Regular U-100 Insuln 100 unit/mL solution 9 unit SUBCUT ACHS Patient Comments: [NO ORIGINAL SIG] Rx Instructions: via insulin pump paroxetine HCl 10 mg tablet 10 mg PO DAILY Qty: 30 2RF sucralfate [Carafate] 1 gram tablet 1 g PO BID Qty: 60 1RF lorazepam 1 mg tablet 1 mg PO BID PRN (Reason: nausea and vomiting) Qty: 30 1RF diphenhydramine HCl 25 mg Tablet 25 mg PO BEDTIME PRN (Reason: Insomnia) (DME) Extended Tonica 3 mL Misc MISCELLANEOUS Rx Instructions: patient uses insulin pump zolpidem [Ambien] 5 mg Tablet 5 mg PO BEDTIME PRN (Reason: Insomnia) Referrals: James Jung DO [Primary Care Provider] - Stand Alone Forms: Patient Portal/API
[2023-11-27 08:41] LABS: Base Excess VBG 0.6 mmol/L (0-4); HCO3 VBG 21 mmol/L (24-28); Oxygen Saturation VBG 100 % (70-75); PCO2 VBG 22.3 mmHg (45-50); PO2 VBG 173 mmHg (35-45); Total CO2 VBG 20 mmol/L (24-29); pH VBG 7.58 (7.33-7.43)
[2023-11-27 08:45] LABS: Add Manual Diff / Slide Review NO; Basophils Absolute Auto 0 /uL (0-100); Basophils Percent Auto 0.3 % (0-2); Eosinophils Absolute Auto 0 /uL (0-450); Eosinophils Percent Auto 0.2 % (2-4); Hematocrit 38.7 % (41-53); Hemoglobin 12.6 g/dL (13.5-17.5); Lymphocytes Absolute Auto 2000 /uL (1100-4500); Lymphocytes Percent Auto 12.9 % (25-40); Mean Corpuscular HGB Conc 32.5 % (30-36); Mean Corpuscular Hemoglobin 23.8 PG (26-34); Mean Corpuscular Volume 73.3 fL (80-100); Monocytes Absolute Auto 1500 /uL (0-900); Monocytes Percent Auto 10.1 % (3-14); Neutrophils Absolute Auto 11500 /uL (1500-7000); Neutrophils Percent Auto 76.5 % (50-75); Platelet Count 402 X10^3/uL (150-400); Red Blood Cell Count 5.29 X10^6/uL (4.5-5.9); Red Cell Distribution Width 15.5 % (11.6-14.8); White Blood Cell Count 15.1 X10^3/uL (4.5-11.0)
[2023-11-27] MEDS: METOCLOPRAMIDE 10 MG/2 ML INJ IV (08:47)
--- NOTE | 2023-11-27 08:47 | PC.NURSE ---
Patient desatting to 85% on Room air while resting. I came and he was easily aroused, O2 saturation quickly minor to 99%on RA. He denies having sleep apnea, which I asked because monitor had alarmed apnea. Patient vomited during IV insertion. Patient requesting IV compazine and something for the pain. Dr. Stearns aware.
[2023-11-27 08:51] LABS: Prothrombin Time 11.3 SECONDS (9.4-12.5)
--- NOTE | 2023-11-27 08:51 | PC.NURSE ---
Patient reports has been vomiting throughout the night and day for weeks and is so exhausted. Was admitted to the ICU for DKA and gastroporesis, states eh was still when vomiting when they sent me home. Reports today he fell in the kitchen and passed out for a second. Denies hitting his head, states he has some soreness to the right side of his neck. Reports abdominal pain with vomiting, generalized and diffuse.
[2023-11-27 08:54] LABS: PTT Partial Thromboplastin Tim 28 SECONDS (25.1-36.5)
[2023-11-27 08:56] LABS: Alanine Aminotransferase 16 IU/L (<50); Albumin 4.6 g/dL (3.5-5.0); Albumin Globulin Ratio 1.3 (1.0-2.8); Alkaline Phosphatase 100 U/L (38-126); Aspartate Aminotransferase 27 IU/L (17-59); Bilirubin Total 1.4 mg/dL (0.2-1.3); Blood Urea Nitrogen 35 mg/dL (9-20); Calcium 10.1 mg/dL (8.4-10.2); Carbon Dioxide 20 mmol/L (22-32); Chloride 91 mmol/L (98-107); Creatine Kinase 67 U/L (55-170); Estimated Glomerular Filt Rate 49 mL/min (>60); Globulin 3.6 g/dL (1.7-4.1); Glucose 189 mg/dL (70-100); HEMOLYSIS 71 (0-50); Lactate (Lactic Acid) 2.2 mmol/L (0.7-2.1); Lipase 114 U/L (23-300); Magnesium 2.4 mg/dL (1.6-2.3); Potassium 3.5 mmol/L (3.4-5.1); Sodium 132 mmol/L (137-145); Total Protein 8.2 g/dL (6.3-8.2)
[2023-11-27 09:07] LABS: NT-proBNP (BNP-Adult 18+) 124 pg/mL (<125); Troponin I 0.013 ng/mL (0.01-0.034)
[2023-11-27 09:21] LABS: Ketones (Beta-Hydroxybutyrate) 8.44 mmol/L (<0.27)
[2023-11-27] MEDS: SODIUM CHLORIDE 0.9% 1,000 ML 1000 ML IV (09:23)
[2023-11-27 10:14] LABS: Reflexed Lactate in 2 Hours Y
[2023-11-27] MEDS: LORazepam 2 MG/ML INJ 1 MG IV (10:48)
--- NOTE | 2023-11-27 11:00 | PC.NURSE ---
lactate drawn via Left UA US Guided PIV
[2023-11-27 11:16] LABS: Lactate 2HR (Lactic Acid Rflx) 1.1 mmol/L (0.7-2.1)
--- NOTE | 2023-11-27 13:20 | CM.SWNOTE ---
ED GRADE CHECKER Assessment Note: Reviewed EMR and discussed patient with ED staff for status. Per ED provider, pt not showing symptoms for DKA but would benefit from continued care to assist with managing type 1 diabetes, possibly mental health resources as well. Patient's primary care provider is Dr. James Jung and insurance is [place] [employer]. GRADE CHECKER entered room to meet with patient, introduced self and role. Patient was found in bed with flat affect, guarded. Pt confirmed he lives with his grandmother in [place], his main support is his mother, Marilee, who lives in [place]. Pt agreed to the two appointments scheduled for him during his most recent admission, next week. Pt states he has not been able to connect with his Yokasta Arevalo CM (ph#[phone]) but has been open to [facility] caregiver in the home. Pt explains he is open to home health services in the meantime, agreed for this GRADE CHECKER to send referral to home health agency who can take his insurance. ED GRADE CHECKER sent referral to [facility], pending acceptance. ED GRADE CHECKER discussed mental health services with pt, pt declined referral to mental health services. ED GRADE CHECKER attempted to speak with pt's mother with phone number on white board (ph#[phone]) twice, left a voice message. ED GRADE CHECKER left a voice message with Yokasta Arevalo CM, and requested follow up with this GRADE CHECKER re: [facility]. Plan: Pt to discharge home with family when medically cleared. Follow up with PCP (appt on 12/01) and [facility] (appt on 12/02). Pt to also follow up with Mickey HAMM re: [facility] caregiver/assessment. GEORGI Rahman
--- NOTE | 2023-11-27 14:13 | PC.NURSE ---
BROOKLYN padilla called Mom Marilee Batestiz (per patients request) [phone] left Voicemail patient is being discharged and he requested a ride if she can contact his (patients) grandmother as patient stated she would come pick him up.
== END 2023-11-27 14:23 | disposition home or self-care (01) ==
PROVIDERS: Emergency Provider Emergency Medicine; PCP Family Medicine
DX: E10.43 Type 1 diabetes mellitus with diabetic autonomic (poly)neuropathy (principal); E10.65 Type 1 diabetes mellitus with hyperglycemia; K31.84 Gastroparesis; Z79.4 Long term (current) use of insulin; M54.2 Cervicalgia; W18.30XA Fall on same level, unspecified, initial encounter
CPT/HCPCS: 36415; 71045; 80053; 82009; 82550; 82805; 83605; 83690; 83735; 83880; 84484; 85025; 85610; 85730; 93005; 96361; 96374; 96375; 99285; J2060; J2765

== ENCOUNTER 2023-12-01 17:58 | Inpatient (IN) | payer OTHER, MEDICAID, SELFPAY ==
[2023-11-20 23:00] VITALS: BMI 24.3
[2023-12-01] VITALS (17 sets, daily range): BP systolic 87–130; BP diastolic 54–94; PULSE 80–110; RESP 12–29; TEMP 36.4–37; O2SAT 91–100; BMI 24.3
--- NOTE | 2023-12-01 18:22 | EKG_ITS ---
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
[2023-12-01 18:52] LABS: Base Excess VBG 10.7 mmol/L (0-4); HCO3 VBG 29 mmol/L (24-28); Oxygen Saturation VBG 64 % (70-75); PCO2 VBG 21.3 mmHg (45-50); PO2 VBG 23 mmHg (35-45); Total CO2 VBG 28 mmol/L (24-29); pH VBG 7.74 (7.33-7.43)
[2023-12-01 18:57] LABS: Add Manual Diff / Slide Review NO; Basophils Absolute Auto 100 /uL (0-100); Basophils Percent Auto 0.8 % (0-2); Eosinophils Absolute Auto 0 /uL (0-450); Eosinophils Percent Auto 0.3 % (2-4); Lymphocytes Absolute Auto 1800 /uL (1100-4500); Lymphocytes Percent Auto 17.3 % (25-40); Mean Corpuscular HGB Conc 32.6 % (30-36); Mean Corpuscular Hemoglobin 24.3 PG (26-34); Mean Corpuscular Volume 74.4 fL (80-100); Monocytes Absolute Auto 1300 /uL (0-900); Monocytes Percent Auto 12.7 % (3-14); Neutrophils Absolute Auto 7300 /uL (1500-7000); Neutrophils Percent Auto 68.9 % (50-75); Platelet Count 364 X10^3/uL (150-400); Red Blood Cell Count 5.38 X10^6/uL (4.5-5.9); Red Cell Distribution Width 16.6 % (11.6-14.8); White Blood Cell Count 10.6 X10^3/uL (4.5-11.0)
[2023-12-01 19:09] LABS: Alanine Aminotransferase 20 IU/L (<50); Albumin 4.2 g/dL (3.5-5.0); Albumin Globulin Ratio 1.3 (1.0-2.8); Alkaline Phosphatase 105 U/L (38-126); Aspartate Aminotransferase 29 IU/L (17-59); Calcium 8.9 mg/dL (8.4-10.2); Carbon Dioxide 29 mmol/L (22-32); Chloride 83 mmol/L (98-107); Globulin 3.3 g/dL (1.7-4.1); Glucose 92 mg/dL (70-100); HEMOLYSIS 28 (0-50); Lipase 40 U/L (23-300); Sodium 126 mmol/L (137-145); Total Protein 7.5 g/dL (6.3-8.2)
[2023-12-01] MEDS: SODIUM CHLORIDE 0.9% 1,000 ML 1000 ML IV (19:10)
[2023-12-01 19:21] LABS: BUN Creatinine Ratio 10.8 (6-22); Blood Urea Nitrogen 16 mg/dL (9-20); Estimated Glomerular Filt Rate > 60 mL/min (>60); Potassium 3.1 mmol/L (3.4-5.1)
--- NOTE | 2023-12-01 19:49 | ED_ITS ---
HPI - General Adult General Chief complaint: Diabetic Problem Stated complaint: N/V, Lethargic Time Seen by Provider: 12/01/23 18:49 Source: EMS Mode of arrival: EMS History of Present Illness HPI narrative: 33-year-old male with history of diabetes, diabetic gastroparesis, prior admissions for exacerbation of gastroparesis, seemed a few days ago here for nausea vomiting without diarrhea, discharged home on ODT Zofran regimen. Takes metoclopramide at home. Unable to get his usual medications down, increased nausea or vomiting. No abdominal cramping. Also has low back pain, history of prior remote back injury, fell recent days. No numbness or tingling to lower extremities. He denies headache pain. Denies neck pain. No black or red stools. No painful urination. Related Data Home Medications Medication Instructions Recorded Confirmed diphenhydramine HCl 25 mg tablet 25 mg PO BEDTIME PRN Insomnia 07/09/23 12/01/23 insulin pump syringe 3 mL 10/04/23 12/01/23 (Extended Peterson) metoprolol succinate 50 mg 50 mg PO DAILY 10/22/23 12/01/23 tablet,extended release 24 hr zolpidem 5 mg tablet (Ambien) 5 mg PO BEDTIME PRN Insomnia 11/05/23 12/01/23 insulin regular human 100 unit/mL 9 unit SUBCUT ACHS 11/15/23 11/21/23 injection solution (Humulin R Regular U-100 Insulin) Previous Rx's Medication Instructions Recorded levothyroxine 50 mcg tablet 50 mcg PO DAILY #90 tabs 10/22/23 metoclopramide HCl 10 mg tablet 10 mg PO Q8HR PRN nausea and 10/22/23 (Reglan) vomiting #40 tabs omeprazole 40 mg capsule,delayed 40 mg PO BID #60 caps 10/22/23 release hydroxyzine HCl 10 mg tablet 10 mg PO TID PRN anxiety #84 tabs 11/08/23 lorazepam 1 mg tablet 1 mg PO BID PRN nausea and 11/15/23 vomiting #30 tabs paroxetine HCl 10 mg tablet 10 mg PO DAILY #30 tabs 11/15/23 sucralfate 1 gram tablet (Carafate) 1 g PO BID #60 tabs 11/15/23 promethazine 25 mg rectal 25 mg NJ Q6H PRN nausea and 11/27/23 suppository vomiting #12 ea Allergies Allergy/AdvReac Type Severity Reaction Status Date / Time aspirin [ASPIRIN] Allergy Unknown MAKES ME Verified 11/15/23 15:03 GO DEAF hydrocodone [HYDROCODONE] AdvReac Intermediate VOMITING Verified 11/15/23 15:03 ibuprofen [IBUPROFEN] AdvReac Intermediate HURTS Verified 11/15/23 15:03 KIDNEYS Review of Systems Review of Systems Narrative: see HPI Patient History Medical History Generalized anxiety disorder Compression fracture Chronic lower back pain HTN (hypertension) Hypothyroidism Marijuana use History of MRSA infection History of pneumonia Blurry vision, bilateral Diabetic neuropathy Bipolar disorder with depression Nausea and vomiting Diabetes type 1, uncontrolled Diabetic gastroparesis Surgical History No pertinent past surgical history Family History Mother No known health problems Father No known health problems Social History household members: family Smoking Status: Former smoker alcohol intake: current Smoking Status: Former smoker alcohol intake frequency: holidays/special occasions only Alcohol type: hard liquor Substance Use Type: marijuana Exam Narrative Exam Narrative: GENERAL: Well-developed patient, in mild distress. HEAD: Atraumatic. Normocephalic. EYES: Pupils equal round and reactive. Extraocular motions intact. No scleral icterus. No injection or drainage. ENT: Nose without bleeding, purulent drainage. Throat without erythema, tonsillar hypertrophy or exudate. Airway patent. NECK: Trachea midline. Non tender CARDIOVASCULAR: Regular rate and rhythm without murmurs, gallops, or rubs. RESPIRATORY: Clear to auscultation. Breath sounds equal bilaterally. No wheezes, rales, or rhonchi. GASTROINTESTINAL: Abdomen soft, non-tender, nondistended. EXTREMITIES: No edema or joint tenderness. BACK: Nontender without deformity or crepitance. No flank tenderness. NEURO: AOx3. Motor functions grossly nonfocal SKIN: No rash or erythema of visible areas Initial Vital Signs Initial Vital Signs: Vital Signs Temperature 97.6 F 12/01/23 18:10 Pulse Rate 110 H 12/01/23 18:10 Respiratory Rate 19 12/01/23 18:10 Blood Pressure 87/54 L 12/01/23 18:10 Pulse Oximetry 100 12/01/23 18:10 Oxygen Delivery Method Room Air 12/01/23 18:10 Course Orders Ordered: ED Orders 12/01/23 18:21 VBG [Venous Blood Gas] STAT 12/01/23 18:22 EKG-12 Lead Stat 12/01/23 18:44 Complete Blood Count AUTO DIFF Stat Comprehensive Metabolic Panel Stat Ketones (Beta-Hydroxybutyrate) Stat Lipase Stat 12/01/23 18:49 Venous Blood Gas Routine 12/01/23 20:23 CT lumbar spine wo con Stat CT thoracic spine wo con Stat 12/01/23 20:54 Magnesium Stat Troponin I Stat Acetaminophen (Acetaminophen 325 Mg Tablet) 650 mg PO Q6H PRN PRN Reason: Fever/Mild Pain (1-3) Hydromorphone HCl (Hydromorphone 1 Mg Inj) 1 mg IV Q3H PRN PRN Reason: Pain, Moderate (4-6) Last Admin: 12/02/23 01:07 Dose: 1 mg Documented By: NACHO Dextrose/Sodium Chloride (Dextrose 5%-0.9% Ns) 1,000 mls @ 125 mls/hr IV CONT XENA Last Admin: 12/01/23 22:01 Dose: 125 mls/hr Documented By: Insulin Human Regular (Insulin Regular 100 Unit/Ml 3 Ml Vial) 9 unit SUBCUT ACHS [facility] Levothyroxine Sodium (Levothyroxine 50 Mcg Tablet) 50 mcg PO 0600 [facility] Metoclopramide HCl (Metoclopramide 10 Mg/2 Ml Inj) 10 mg IV Q6HR PRN PRN Reason: Nausea And Vomiting Last Admin: 12/02/23 00:15 Dose: 10 mg Documented By: NACHO Metoprolol Succinate (Metoprolol Er 50 Mg Tablet) 50 mg PO DAILY XENA Naloxone HCl (Naloxone 0.4 Mg/Ml Vial) 0.2 mg IV Q2MIN PRN PRN Reason: Opiate Reversal Non-Formulary Medication (Hydroxyzine Hcl) 10 mg PO TID PRN PRN Reason: anxiety Ondansetron HCl (Ondansetron 4 Mg/2 Ml Inj) 4 mg IV NOW PRN PRN Reason: Nausea And Vomiting Last Admin: 12/01/23 20:49 Dose: 4 mg Documented By: Ondansetron HCl (Ondansetron 4 Mg Odt) 4 mg SL NOW PRN PRN Reason: Nausea And Vomiting Pantoprazole Sodium (Pantoprazole 40 Mg Vial) 40 mg IV DAILY XENA Sucralfate (Sucralfate 1 Gm Tablet) 1 gm PO BID XENA Trazodone HCl (Trazodone 50 Mg Tablet) 100 mg PO BEDTIME PRN PRN Reason: insomnia Discontinued Medications Diphenhydramine HCl (Diphenhydramine 50 Mg/Ml Vial) 50 mg IV NOW ONE Stop: 12/01/23 20:25 Last Admin: 12/01/23 20:49 Dose: 50 mg Documented By: Hydromorphone HCl (Hydromorphone 1 Mg Inj) 0.5 mg IV NOW ONE Stop: 12/01/23 20:25 Last Admin: 12/01/23 20:49 Dose: 0.5 mg Documented By: Sodium Chloride (Normal Saline 0.9%) 1,000 mls @ 1,000 mls/hr IV BOLUS ONE Stop: 12/01/23 19:53 Last Infusion: 12/01/23 20:40 Dose: Infused Documented By: Admin: 12/01/23 19:10 Dose: 1,000 mls/hr Documented By: CODY POTASSIUM CHLORIDE IN WATER (Potassium Cl 10 Meq/100 Ml Sully) 10 meq in 100 mls @ 100 mls/hr IV Q1H XENA Stop: 12/01/23 21:59 Last Admin: 12/01/23 22:03 Dose: 100 mls/hr Documented By: Infusion: 12/01/23 21:25 Dose: Infused Documented By: Admin: 12/01/23 20:25 Dose: 100 mls/hr Documented By: QUETA Metoclopramide HCl (Metoclopramide 10 Mg/2 Ml Inj) 10 mg IV NOW ONE Stop: 12/01/23 20:25 Last Admin: 12/01/23 20:49 Dose: 10 mg Documented By: Pantoprazole Sodium (Pantoprazole 40 Mg Vial) 40 mg IV NOW ONE Stop: 12/01/23 20:25 Last Admin: 12/01/23 20:48 Dose: 40 mg Documented By: Potassium Chloride (Potassium Chloride 20 Meq/15 Ml Udc) 40 meq PO NOW ONE Stop: 12/01/23 20:01 Last Admin: 12/01/23 20:25 Dose: 40 meq Documented By: QUETA Vital Signs Vital signs: Vital Signs - 8 hr 12/01/23 18:10 12/01/23 18:22 12/01/23 18:25 Temperature 97.6 F Pulse Rate 110 H 105 H Respiratory Rate 19 14 Blood Pressure 87/54 L 127/58 L Pulse Oximetry 100 100 Oxygen Delivery Method Room Air 12/01/23 18:25 12/01/23 18:30 12/01/23 18:46 Temperature Pulse Rate 109 H 109 H Respiratory Rate 29 H 24 Blood Pressure 121/78 Pulse Oximetry 93 100 Oxygen Delivery Method 12/01/23 18:46 12/01/23 18:54 12/01/23 18:54 Temperature Pulse Rate 106 H 102 H Respiratory Rate 29 H 25 H Blood Pressure 103/73 Pulse Oximetry 98 97 Oxygen Delivery Method 12/01/23 19:00 12/01/23 19:00 12/01/23 19:15 Temperature Pulse Rate 94 H Respiratory Rate 12 Blood Pressure 114/81 127/88 Pulse Oximetry 98 Oxygen Delivery Method 12/01/23 19:15 12/01/23 19:30 12/01/23 19:30 Temperature Pulse Rate 86 101 H Respiratory Rate 16 18 Blood Pressure 126/94 H Pulse Oximetry 99 100 Oxygen Delivery Method Room Air 12/01/23 19:45 12/01/23 19:45 12/01/23 20:00 Temperature Pulse Rate 87 Respiratory Rate 12 Blood Pressure 130/92 H 121/85 Pulse Oximetry 95 Oxygen Delivery Method 12/01/23 20:00 12/01/23 20:16 12/01/23 20:16 Temperature Pulse Rate 101 H 85 Respiratory Rate 14 13 Blood Pressure 108/80 Pulse Oximetry 100 98 Oxygen Delivery Method 12/01/23 20:42 12/01/23 21:00 12/01/23 21:30 Temperature Pulse Rate 107 H 105 H 80 Respiratory Rate 14 14 Blood Pressure Pulse Oximetry 100 91 100 Oxygen Delivery Method Medical Decision Making Lab Data Lab results reviewed: Yes I reviewed the patient's lab results. Lab results narrative: White blood cell count 64500, hemoglobin 13, platelets adequate. Sodium 126 with glucose 92 noted. BUN 16 with creatinine 1.48. Potassium low at 3.1, serum CO2 29 not decreased, anion gap 14. Serum ketones positive 3.3 noted. VBG with pH 7.7 alkalotic. Liver functions unremarkable. Lipase normal. 12/01/23 18:44 12/01/23 18:44 Labs: Lab Results 12/01/23 12/01/23 12/01/23 Range/Units 18:44 18:49 20:54 WBC 10.6 (4.5-11.0) X10^3/uL RBC 5.38 (4.5-5.9) X10^6/uL Hgb 13.0 L (13.5-17.5) g/dL Hct 40.0 L (41-53) % MCV 74.4 L (80-100) fL MCH 24.3 L (26-34) PG MCHC 32.6 (30-36) % RDW 16.6 H (11.6-14.8) % Plt Count 364 (150-400) X10^3/uL Neut % (Auto) 68.9 (50-75) % Lymph % (Auto) 17.3 L (25-40) % Mcduffie % (Auto) 12.7 (3-14) % Eos % (Auto) 0.3 L (2-4) % Baso % (Auto) 0.8 (0-2) % Neut # (Auto) 7300 H (0284-7160) /uL Lymph # (Auto) 1800 (0597-5647) /uL Mcduffie # (Auto) 1300 H (0-900) /uL Eos # (Auto) 0 (0-450) /uL Baso # (Auto) 100 (0-100) /uL VBG pH 7.74 H (7.33-7.43) VBG pCO2 21.3 L (45-50) mmHg VBG pO2 23 L (35-45) mmHg VBG HCO3 29 H (24-28) mmol/L VBG Total CO2 28 (24-29) mmol/L VBG O2 Saturation 64 L (70-75) % VBG Base Excess 10.7 H (0-4) mmol/L FiO2 % 21 % % Sodium 126 L (137-145) mmol/L Potassium 3.1 L (3.4-5.1) mmol/L Chloride 83 L (98-107) mmol/L Carbon Dioxide 29 (22-32) mmol/L BUN 16 (9-20) mg/dL Creatinine 1.48 H (0.66-1.25) mg/dL Estimated GFR > 60 (>60) mL/min BUN/Creatinine Ratio 10.8 (6-22) Glucose 92 (70-100) mg/dL Calcium 8.9 (8.4-10.2) mg/dL Magnesium 2.0 (1.6-2.3) mg/dL Total Bilirubin 1.0 (0.2-1.3) mg/dL AST 29 (17-59) IU/L ALT 20 (<50) IU/L Alkaline Phosphatase 105 (38-126) U/L Troponin I < 0.012 (0.01-0.034) ng/mL Total Protein 7.5 (6.3-8.2) g/dL Albumin 4.2 (3.5-5.0) g/dL Globulin 3.3 (1.7-4.1) g/dL Albumin/Globulin Ratio 1.3 (1.0-2.8) Lipase 40 D (23-300) U/L Ketones 3.33 H (<0.27) mmol/L Point of Care Testing Glucose POC 87 Point of care testing: Point of Care Testing Glucose POC [address] lumbar spine: Radiologist's Impression: Close Lumbar Spine CT (Signed) Julien Colbert - 12/01/[address] (Signed) Julien Colbert - 12/01/23 Launch?[place] [address] CT Scan Report Signed Patient: Valentin Noble MR#: [id number] : 1990 Acct:[id number] Age/Sex: 33 / M Date of Service: 12/01/23 Loc: ED Accession Number: [id number] Procedure: CT lumbar spine wo con Ordering Provider: Ronaldo Griffin MD PROCEDURE: CT LUMBAR SPINE WO CON INDICATIONS: GLF, back pain TECHNIQUE: Noncontrast 3 mm thick sections acquired from the T12 level to the sacrum. Sagittal and coronal reformats were constructed. For radiation dose reduction, the following was used: automated exposure control. COMPARISON: [facility], CT, CT ABDOMEN PELVIS W CON, 07/10/2023, 12:18. [facility], CR, XR LUMBAR SPINE 2-3V, 10/26/2023, 16:16. FINDINGS: Image quality: Excellent. Bones: There is normal bony alignment. Mild L1 vertebral body compression fracture appears unchanged when compared to the CT from 07/10/2023. There is mild retropulsion of osseous fragment again seen measuring up to 3 mm minimal narrowing of the spinal canal. No acute vertebral body compression fractures. No suspicious lytic or blastic bony lesions. No pars defects. Discs: Mild multilevel spondylosis without high-grade spinal canal stenosis or high-grade neural foraminal narrowing. Neural foraminal narrowing is moderate at the L5-S1 level bilaterally. Soft tissues: No retroperitoneal masses or hematomas. Visualized aorta is normal in caliber. IMPRESSION: Unchanged chronic L1 vertebral body compression fracture. No new lumbar spine fracture. Approved by: Julien Colbert M.D. on 12/01/2023 at 21:21 CT thoracic spine: Radiologist's Impression: [place] [address] CT Scan Report Signed Patient: Valentin Noble MR#: [id number] : 1990 Acct:[id number] Age/Sex: 33 / M Date of Service: 12/01/23 Loc: ED Accession Number: [id number] Procedure: CT thoracic spine wo con Ordering Provider: Ronaldo Griffin MD PROCEDURE: CT THORACIC SPINE WO CON INDICATIONS: GLF, back pain TECHNIQUE: Noncontrast 3 mm thick sections acquired through the region of interest in the thoracic spine. Sagittal and coronal reformats were then constructed. For radiation dose reduction, the following was used: automated exposure control. COMPARISON: None. FINDINGS: Image quality: Excellent. Bones: There is normal overall bony alignment. No acute vertebral body compression fractures. No suspicious sclerotic or lytic bony lesions. Central spinal canal is of normal overall caliber. Soft tissues: No paravertebral masses or hematomas. Visualized posteromedial lungs appear clear. Circumferential distal esophageal wall thickening. Small amount of fluid is seen in the midesophagus. IMPRESSION: 1. No acute thoracic spine fracture. 2. Distal esophageal wall thickening is suspicious for esophagitis. Approved by: Julien Colbert M.D. on 12/01/2023 at 21:18 ECG Data Attestation: I personally reviewed and interpreted this ECG as follows: Interpretation: Sinus tachycardia with rate of 102, no obvious ST segment elevation or depression changes. NJ 164, QRS 82, QTC 518. MDM Narrative Medical decision making narrative: 33-year-old male with history of diabetes, gastroparesis, recent vomiting nonbloody, unable to keep meds down, prescribed Reglan in the past. Afebrile on triage. Complains of back pain, no recent injury recalled. IV Reglan, Protonix, fluids. VBG pH 7.7 alkalotic not consistent with DKA. CO2 not diminished. Potassium low. IV and oral potassium repletion initiated. CT thoracic and lumbar spine imaging ordered. CT thoracic spine shows no bony injuries, some thickening of the esophagus noted. See radiology report. CT lumbar spine shows old appearing lumbar L1 fracture. See radiology report. Serum ketones elevated, likely starvation ketosis. Repeat glucose 78 noted. D5 normal saline infusion initiated. Ill-appearing, requests admission. We will contact hospitalist [phone], call back from hospitalist Dr. Bolton, accepts patient for admission to observation Discharge Plan Departure Patient Disposition: Admitted as Observation Clinical Impression: Nausea & vomiting, Diabetic gastroparesis, Hypokalemia, Chronic back pain, Starvation ketoacidosis Admit Date/Time: 12/01/23 22:11 Admit Provider: Chance Lehman
[2023-12-01 19:55] LABS: Ketones (Beta-Hydroxybutyrate) 3.33 mmol/L (<0.27)
--- NOTE | 2023-12-01 20:23 | DI.CT.S_ITS ---
PROCEDURE: CT LUMBAR SPINE WO CON INDICATIONS: GLF, back pain TECHNIQUE: Noncontrast 3 mm thick sections acquired from the T12 level to the sacrum. Sagittal and coronal reformats were constructed. For radiation dose reduction, the following was used: automated exposure control. COMPARISON: [facility], CT, CT ABDOMEN PELVIS W CON, 07/10/2023, 12:18. [facility], CR, XR LUMBAR SPINE 2-3V, 10/26/2023, 16:16. FINDINGS: Image quality: Excellent. Bones: There is normal bony alignment. Mild L1 vertebral body compression fracture appears unchanged when compared to the CT from 07/10/2023. There is mild retropulsion of osseous fragment again seen measuring up to 3 mm minimal narrowing of the spinal canal. No acute vertebral body compression fractures. No suspicious lytic or blastic bony lesions. No pars defects. Discs: Mild multilevel spondylosis without high-grade spinal canal stenosis or high-grade neural foraminal narrowing. Neural foraminal narrowing is moderate at the L5-S1 level bilaterally. Soft tissues: No retroperitoneal masses or hematomas. Visualized aorta is normal in caliber. IMPRESSION: Unchanged chronic L1 vertebral body compression fracture. No new lumbar spine fracture. Approved by: Julien Colbert M.D. on 12/01/2023 at 21:21
--- NOTE | 2023-12-01 20:23 | DI.CT.S_ITS ---
PROCEDURE: CT THORACIC SPINE WO CON INDICATIONS: GLF, back pain TECHNIQUE: Noncontrast 3 mm thick sections acquired through the region of interest in the thoracic spine. Sagittal and coronal reformats were then constructed. For radiation dose reduction, the following was used: automated exposure control. COMPARISON: None. FINDINGS: Image quality: Excellent. Bones: There is normal overall bony alignment. No acute vertebral body compression fractures. No suspicious sclerotic or lytic bony lesions. Central spinal canal is of normal overall caliber. Soft tissues: No paravertebral masses or hematomas. Visualized posteromedial lungs appear clear. Circumferential distal esophageal wall thickening. Small amount of fluid is seen in the midesophagus. IMPRESSION: 1. No acute thoracic spine fracture. 2. Distal esophageal wall thickening is suspicious for esophagitis. Approved by: Julien Colbert M.D. on 12/01/2023 at 21:18
[2023-12-01] MEDS: POTASSIUM CHLORIDE 20 MEQ/15 ML UDC 40 MEQ PO (20:25)
[2023-12-01] MEDS: POTASSIUM CHLORIDE IN WATER 10 MEQ/100 ML PIGGYBACK 100 MEQ IV ×2 (20:25→22:03)
[2023-12-01] MEDS: PANTOPRAZOLE 40 MG VIAL IV (20:48)
[2023-12-01] MEDS: METOCLOPRAMIDE 10 MG/2 ML INJ IV (20:49)
[2023-12-01] MEDS: ONDANSETRON 4 MG/2 ML INJ IV (20:49)
[2023-12-01] MEDS: diphenhydrAMINE 50 MG/ML VIAL IV (20:49)
[2023-12-01] MEDS: HYDROMORPHONE 1 MG INJ 0.5 MG IV (20:49)
[2023-12-01 21:40] LABS: Troponin I < 0.012 ng/mL (0.01-0.034)
--- NOTE | 2023-12-01 21:54 | PC.NURSE ---
BG 78. Juices and crackers provided. pt taking PO intake. Denies nausea.
[2023-12-01] MEDS: DEXTROSE 5%-0.9% NS 1,000 ML 125 ML IV (22:01)
--- NOTE | 2023-12-01 22:49 | PM.HP.1 ---
History of Present Illness History of Present Illness Date Patient Seen: 12/01/23 Time Patient Seen: 23:40 Date of Onset of Symptoms: 11/28/23 Chief complaint: N/V, Lethargic Narrative: 33 y/o with PMH of IDDM type 1, diabetic gastroparesis and previous hospitalizations related to DM complications, such as a week ago for DKA, who presented with intractable nausea and vomiting. On admission complaines on back pain and images showing old L1 fracture. Not acidotic with ketones, likely starvation - poor intake At one point borderline hypoglycemic, started on D5 at 125 cc/h Multiple doses of antiemetics insufficient to enable oral rehydration and adequate intake - placed in observation [facility] Medical History Generalized anxiety disorder Compression fracture Chronic lower back pain HTN (hypertension) Hypothyroidism Marijuana use History of MRSA infection History of pneumonia Blurry vision, bilateral Diabetic neuropathy Bipolar disorder with depression Nausea and vomiting Diabetes type 1, uncontrolled Diabetic gastroparesis Surgical History No pertinent past surgical history Family History Mother No known health problems Father No known health problems Social History household members: family Smoking Status: Former smoker alcohol intake: current Meds Home Medications and Allergies Home Medications Medication Instructions Recorded Confirmed Type diphenhydramine HCl 25 mg tablet 25 mg PO BEDTIME PRN Insomnia 07/09/23 12/01/23 History insulin pump syringe 3 mL 10/04/23 12/01/23 History (Extended [place]) levothyroxine 50 mcg tablet 50 mcg PO DAILY #90 tabs 10/22/23 12/01/23 Rx metoclopramide HCl 10 mg tablet 10 mg PO Q8HR PRN nausea and 10/22/23 12/01/23 Rx (Reglan) vomiting #40 tabs metoprolol succinate 50 mg 50 mg PO DAILY 10/22/23 12/01/23 History tablet,extended release 24 hr omeprazole 40 mg capsule,delayed 40 mg PO BID #60 caps 10/22/23 12/01/23 Rx release zolpidem 5 mg tablet (Ambien) 5 mg PO BEDTIME PRN Insomnia 11/05/23 12/01/23 History hydroxyzine HCl 10 mg tablet 10 mg PO TID PRN anxiety #84 tabs 11/08/23 12/01/23 Rx insulin regular human 100 unit/mL 9 unit SUBCUT ACHS 11/15/23 11/21/23 History injection solution (Humulin R Regular U-100 Insulin) lorazepam 1 mg tablet 1 mg PO BID PRN nausea and 11/15/23 12/01/23 Rx vomiting #30 tabs paroxetine HCl 10 mg tablet 10 mg PO DAILY #30 tabs 11/15/23 12/01/23 Rx sucralfate 1 gram tablet (Carafate) 1 g PO BID #60 tabs 11/15/23 12/01/23 Rx promethazine 25 mg rectal 25 mg ME Q6H PRN nausea and 11/27/23 12/01/23 Rx suppository vomiting #12 ea Allergies Allergy/AdvReac Type Severity Reaction Status Date / Time aspirin [ASPIRIN] Allergy Unknown MAKES ME Verified 11/15/23 15:03 GO DEAF hydrocodone [HYDROCODONE] AdvReac Intermediate VOMITING Verified 11/15/23 15:03 ibuprofen [IBUPROFEN] AdvReac Intermediate HURTS Verified 11/15/23 15:03 KIDNEYS Review of Systems Constitutional Comments: generalized weakness Gastrointestinal Comments: nausea, vomiting, unable to hold PO in a last 1-2 days, no BMs since few days ago, chronic heartburn Musculoskeletal Comments: low back pain w/o radiation Exam Vital Signs (past 8 hours): - 12/01/23 18:10 12/01/23 18:22 12/01/23 18:25 Temperature 97.6 F Pulse Rate 110 H 105 H Respiratory Rate 19 14 Blood Pressure 87/54 L 127/58 L Pulse Oximetry 100 100 Oxygen Delivery Method Room Air 12/01/23 18:25 12/01/23 18:30 12/01/23 18:46 Temperature Pulse Rate 109 H 109 H Respiratory Rate 29 H 24 Blood Pressure 121/78 Pulse Oximetry 93 100 Oxygen Delivery Method 12/01/23 18:46 12/01/23 18:54 12/01/23 18:54 Temperature Pulse Rate 106 H 102 H Respiratory Rate 29 H 25 H Blood Pressure 103/73 Pulse Oximetry 98 97 Oxygen Delivery Method 12/01/23 19:00 12/01/23 19:00 12/01/23 19:15 Temperature Pulse Rate 94 H Respiratory Rate 12 Blood Pressure 114/81 127/88 Pulse Oximetry 98 Oxygen Delivery Method 12/01/23 19:15 12/01/23 19:30 12/01/23 19:30 Temperature Pulse Rate 86 101 H Respiratory Rate 16 18 Blood Pressure 126/94 H Pulse Oximetry 99 100 Oxygen Delivery Method Room Air 12/01/23 19:45 12/01/23 19:45 12/01/23 20:00 Temperature Pulse Rate 87 Respiratory Rate 12 Blood Pressure 130/92 H 121/85 Pulse Oximetry 95 Oxygen Delivery Method 12/01/23 20:00 12/01/23 20:16 12/01/23 20:16 Temperature Pulse Rate 101 H 85 Respiratory Rate 14 13 Blood Pressure 108/80 Pulse Oximetry 100 98 Oxygen Delivery Method 12/01/23 20:42 12/01/23 21:00 12/01/23 21:30 Temperature Pulse Rate 107 H 105 H 80 Respiratory Rate 14 14 Blood Pressure Pulse Oximetry 100 91 100 Oxygen Delivery Method 12/01/23 22:39 Temperature 98.6 F Pulse Rate 80 Respiratory Rate 18 Blood Pressure 110/75 Pulse Oximetry 98 Oxygen Delivery Method Room Air Oxygen Delivery Method Room Air Const Other: in no distress, appears sleepy HENMT Other: atraumatic Eyes Other: eomi Neck Other: supple Resp Other: normal respiratory effort Cardio Other: RRR Neuro Other: w/o deficits Psych Other: lucid Objective Labs 12/01/23 18:44 12/01/23 18:44 Labs: Laboratory Results - last 24 hr 12/01/23 12/01/23 12/01/23 18:44 18:49 20:54 WBC 10.6 RBC 5.38 Hgb 13.0 L Hct 40.0 L MCV 74.4 L MCH 24.3 L MCHC 32.6 RDW 16.6 H Plt Count 364 Neut % (Auto) 68.9 Lymph % (Auto) 17.3 L [place] % (Auto) 12.7 Eos % (Auto) 0.3 L Baso % (Auto) 0.8 Neut # (Auto) 7300 H Lymph # (Auto) 1800 [place] # (Auto) 1300 H Eos # (Auto) 0 Baso # (Auto) 100 VBG pH 7.74 H VBG pCO2 21.3 L VBG pO2 23 L VBG HCO3 29 H VBG Total CO2 28 VBG O2 Saturation 64 L VBG Base Excess 10.7 H FiO2 % 21 % Sodium 126 L Potassium 3.1 L Chloride 83 L Carbon Dioxide 29 BUN 16 Creatinine 1.48 H Estimated GFR > 60 BUN/Creatinine Ratio 10.8 Glucose 92 Calcium 8.9 Magnesium 2.0 Total Bilirubin 1.0 AST 29 ALT 20 Alkaline Phosphatase 105 Troponin I < 0.012 Total Protein 7.5 Albumin 4.2 Globulin 3.3 Albumin/Globulin Ratio 1.3 Lipase 40 D Ketones 3.33 H Assessment & Plan Assessment and plan (1) Diabetic gastroparesis: Status: Acute (2) Nausea and vomiting: Status: Acute (3) Hypokalemia: Status: Acute (4) Generalized anxiety disorder: Status: Acute (5) GERD (gastroesophageal reflux disease): Status: Acute (6) Acute kidney injury: Status: Acute (7) Hypothyroidism: Status: Acute Assessment & Plan narrative: Diabetic Gastroparesis - IVFs, antiemetics - poor oral intake last couple days, with starvation ketosis and borderline hypoglycemic - not acidotic SHAN / Hyponatremia / Hypokalemia Had NS 1 L bolus in ED and continued with D5 125 cc /h for borderline hypoglycemia - had 40 mEq of K in the ED, Mg WNR - BMP in AM IDDM - uncontrolled at baseline - insulin pump GERD - PPI, sucralfate Anxiety / Depression - Hydroxyzine, SSRI - Prozac held while on antiemetics - QTc Hypothyroidism - levothyroxine DVT prophylaxis - SCDs Time-Based Coding :: [TOTAL MINUTES] spent with patient and on the chart (including review of chart, obtaining history, exam, reviewing outside data, placing orders, documenting exam and treatment plan, and counseling patient) on [DATE]. Quality VTE Deep Vein Thrombosis/Pulmonary Embolism Present on Admission: No
[2023-12-02] MEDS: METOCLOPRAMIDE 10 MG/2 ML INJ IV ×4 (00:15→20:41)
[2023-12-02] MEDS: HYDROMORPHONE 1 MG INJ IV ×5 (01:07→21:36)
[2023-12-02] MEDS: LEVOTHYROXINE 50 MCG TABLET PO (05:25)
[2023-12-02] MEDS: DEXTROSE 5%-0.9% NS 1,000 ML 125 ML IV ×2 (05:27→21:50)
[2023-12-02 05:33] VITALS: BP 111/70; PULSE 101; RESP 18; TEMP 36; O2SAT 99
[2023-12-02 05:38] LABS: Add Manual Diff / Slide Review NO; Basophils Absolute Auto 0 /uL (0-100); Basophils Percent Auto 0.6 % (0-2); Eosinophils Absolute Auto 100 /uL (0-450); Eosinophils Percent Auto 1.3 % (2-4); Hematocrit 35.5 % (41-53); Hemoglobin 11.4 g/dL (13.5-17.5); Lymphocytes Absolute Auto 1700 /uL (1100-4500); Lymphocytes Percent Auto 23.1 % (25-40); Mean Corpuscular HGB Conc 32.1 % (30-36); Mean Corpuscular Hemoglobin 24.1 PG (26-34); Mean Corpuscular Volume 75.3 fL (80-100); Monocytes Absolute Auto 1000 /uL (0-900); Monocytes Percent Auto 12.9 % (3-14); Neutrophils Absolute Auto 4700 /uL (1500-7000); Neutrophils Percent Auto 62.1 % (50-75); Platelet Count 251 X10^3/uL (150-400); Red Blood Cell Count 4.72 X10^6/uL (4.5-5.9); Red Cell Distribution Width 16.7 % (11.6-14.8); White Blood Cell Count 7.5 X10^3/uL (4.5-11.0)
[2023-12-02 05:50] LABS: Alanine Aminotransferase 15 IU/L (<50); Albumin 3.4 g/dL (3.5-5.0); Albumin Globulin Ratio 1.3 (1.0-2.8); Alkaline Phosphatase 56 U/L (38-126); Aspartate Aminotransferase 29 IU/L (17-59); BUN Creatinine Ratio 10.4 (6-22); Bilirubin Total 0.7 mg/dL (0.2-1.3); Blood Urea Nitrogen 14 mg/dL (9-20); Calcium 7.8 mg/dL (8.4-10.2); Carbon Dioxide 36 mmol/L (22-32); Chloride 91 mmol/L (98-107); Estimated Glomerular Filt Rate > 60 mL/min (>60); Globulin 2.6 g/dL (1.7-4.1); Glucose 162 mg/dL (70-100); HEMOLYSIS 83 (0-50); Potassium 3.1 mmol/L (3.4-5.1); Sodium 131 mmol/L (137-145)
--- NOTE | 2023-12-02 07:24 | PM.PN.1 ---
Subjective Subjective Interval history: From night doctor: 33 y/o with PMH of IDDM type 1, diabetic gastroparesis and previous hospitalizations related to DM complications, such as a week ago for DKA, who presented with intractable nausea and vomiting. On admission complaines on back pain and images showing old L1 fracture. Not acidotic with ketones, likely starvation - poor intake At one point borderline hypoglycemic, started on D5 at 125 cc/h Multiple doses of antiemetics insufficient to enable oral rehydration and adequate intake - placed in observation S: Nausea for 3 weeks with minimal vomiting. Anorexia and weakness. Also a fall. Feels little less nauseated this morning. Exam Vital Signs (past 8 hours): - 12/02/23 05:33 Temperature 96.8 F L Pulse Rate 101 H Respiratory Rate 18 Blood Pressure 111/70 Pulse Oximetry 99 Oxygen Flow Rate 0 Oxygen Delivery Method Room Air Oxygen Flow Rate 0 Narrative Exam Narrative: NAD, alert and oriented. Fluent speech. Lungs are clear, normal rate and effort. Heart is regular, no murmur gallop or rub. Abdomen is soft, non distended. Extremities are free of edema. Objective Labs 12/02/23 05:11 12/02/23 05:11 Labs: Laboratory Results - last 24 hr 12/01/23 12/01/23 12/01/23 18:44 18:49 20:54 WBC 10.6 RBC 5.38 Hgb 13.0 L Hct 40.0 L MCV 74.4 L MCH 24.3 L MCHC 32.6 RDW 16.6 H Plt Count 364 Neut % (Auto) 68.9 Lymph % (Auto) 17.3 L [place] % (Auto) 12.7 Eos % (Auto) 0.3 L Baso % (Auto) 0.8 Neut # (Auto) 7300 H Lymph # (Auto) 1800 [place] # (Auto) 1300 H Eos # (Auto) 0 Baso # (Auto) 100 VBG pH 7.74 H VBG pCO2 21.3 L VBG pO2 23 L VBG HCO3 29 H VBG Total CO2 28 VBG O2 Saturation 64 L VBG Base Excess 10.7 H FiO2 % 21 % Sodium 126 L Potassium 3.1 L Chloride 83 L Carbon Dioxide 29 BUN 16 Creatinine 1.48 H Estimated GFR > 60 BUN/Creatinine Ratio 10.8 Glucose 92 Calcium 8.9 Magnesium 2.0 Total Bilirubin 1.0 AST 29 ALT 20 Alkaline Phosphatase 105 Troponin I < 0.012 Total Protein 7.5 Albumin 4.2 Globulin 3.3 Albumin/Globulin Ratio 1.3 Lipase 40 D Ketones 3.33 H 12/02/23 05:11 WBC 7.5 RBC 4.72 Hgb 11.4 L Hct 35.5 L MCV 75.3 L MCH 24.1 L MCHC 32.1 RDW 16.7 H Plt Count 251 Neut % (Auto) 62.1 Lymph % (Auto) 23.1 L [place] % (Auto) 12.9 Eos % (Auto) 1.3 L Baso % (Auto) 0.6 Neut # (Auto) 4700 Lymph # (Auto) 1700 [place] # (Auto) 1000 H Eos # (Auto) 100 Baso # (Auto) 0 VBG pH VBG pCO2 VBG pO2 VBG HCO3 VBG Total CO2 VBG O2 Saturation VBG Base Excess FiO2 % Sodium 131 L Potassium 3.1 L Chloride 91 L Carbon Dioxide 36 H BUN 14 Creatinine 1.35 H Estimated GFR > 60 BUN/Creatinine Ratio 10.4 Glucose 162 H Calcium 7.8 L Magnesium Total Bilirubin 0.7 AST 29 ALT 15 Alkaline Phosphatase 56 Troponin I Total Protein 6.0 L Albumin 3.4 L Globulin 2.6 Albumin/Globulin Ratio 1.3 Lipase Ketones [facility] Medical History Generalized anxiety disorder Compression fracture Chronic lower back pain HTN (hypertension) Hypothyroidism Marijuana use History of MRSA infection History of pneumonia Blurry vision, bilateral Diabetic neuropathy Bipolar disorder with depression Nausea and vomiting Diabetes type 1, uncontrolled Diabetic gastroparesis Surgical History No pertinent past surgical history Family History Mother No known health problems Father No known health problems Social History household members: family Smoking Status: Former smoker alcohol intake: current Assessment & Plan Assessment & Plan narrative: 1. Diabetic Gastroparesis, present on admission and active. 2. SHAN, present on admission and active. 3. Hyponatremia, present on admission and active. 4. Hypokalemia, present on admission and active. 5. IDDM, present on admission and active. 6. GERD, present on admission and active. 7. Anxiety / Depression, present on admission and active. 8. Hypothyroidism, present on admission and active. PLAN: -IV fluids -replete potassium. -antiemetics. -monitor glucose, continue subcutaneous insulin. Pump off. HANS: 12/03. Time-Based Coding :: [TOTAL MINUTES] spent with patient and on the chart (including review of chart, obtaining history, exam, reviewing outside data, placing orders, documenting exam and treatment plan, and counseling patient) on [DATE]. Quality VTE Deep Vein Thrombosis/Pulmonary Embolism Present on Admission: No
--- NOTE | 2023-12-02 07:55 | PC.ADMIT ---
[email or web address] Lindsey Duron Admission Note: Pt admitted to ACU from ED at 22:42. Alert and oriented x 4, cooperative. SBA for transfers. D5NS @ 125/hr. Has continuous insulin pump set at 0.9 U/hr. BS 123. Oriented to room and call light, call light within reach. The patient,Valentin Noble,33 y/o, was given written information regarding hospital policies, unit procedures and contact persons. Patient's smoking status: Former smoker. Vital Signs - 8 hr 12/02/23 05:33 Temperature 96.8 F L Pulse Rate 101 H Respiratory Rate 18 Blood Pressure 111/70 Pulse Oximetry 99 Oxygen Flow Rate 0
[2023-12-02 08:00] VITALS: BP 90/52; PULSE 73; RESP 17; TEMP 36.4; O2SAT 99
[2023-12-02] MEDS: PANTOPRAZOLE 40 MG VIAL IV (09:27)
[2023-12-02] MEDS: SUCRALFATE 1 GM TABLET PO ×2 (09:27→20:42)
[2023-12-02] MEDS: POTASSIUM CHLORIDE 20 MEQ TAB 40 MEQ PO ×2 (09:28→13:19)
[2023-12-02 09:29] VITALS: BP 90/52
--- NOTE | 2023-12-02 15:05 | CM.DANOTE ---
Initial DCP Assessment Note Pt is a 33 yo male, resident of [place], arrives with intractable N/V, anorexia and weakness. PCP: James Jung Payer: Mickey/BIRDIE According to SW assessment in the ED 11/26: Pt lives with his grandmother in [place], his main support is his mother, Marilee, ph#[phone] who lives in [place]. Pt has not connected with Yokasta Arevalo CM (ph#[phone]), patient reportedly is agreeable to [facility] caregiver in the home. According to an email from [facility], they did not get to see patient in the home 11/30 and likely will not admit onto service as higher level of care is recommended. Plan: Anticipate that patient will discharge home with family once again when medically cleared. Patient appears to lack the ability to manage his chronic disease(s) and has a difficult time completing activities of daily life. IF THIS HAS NOT BEEN DONE ALREADY-Patient would benefit from assist in completing the [facility] correction care application and getting this completed and signed form faxed to [facility] alongside an expedited request for review form. Follow up with PCP was on 12/01, needs to be rescheduled and [facility] appt was on 12/02, needs to be rescheduled. GORDON Barba Discharge Planning/Care Management Discharge Assessment Start: 12/02/23 14:58 Freq: Status: Active Protocol: Document 12/02/23 14:59 GRETA (Rec: 12/02/23 15:05 GRETA [email or web address]) Discharge Planning Assessment Assigned Unbundler Gordon Gutierrez DPOA/Assigned Designee Name Marilee Villagomez Contact Information [phone] Advance Directives? No Advance Directives on File No History Provided By Patient,Medical Record Has Patient been admitted in last 30 Yes days? Comment admitted .12-10.15 ED visit 11-26-. 18 total ED visits in past 12 months Prior Living Arrangements House Household Members family Type of transporation used prior to Drives own vehicle admit Independent with ADL's Yes Is patient alert and oriented? Yes Comment Not functioning well at home. Comment Patient has left foot drop which he wears a brace for. Barriers to Discharge No Comment Patient will likely discharge home with outpatient follow up as he has done in the past. [facility] will not admit patient on to their services, reportedly they feel patient requires higher level of care. Discharge Plan Home Transportation Arrangement Family to provide transport vs BIRDIE transport Additional Comment Patient would benefit from [facility] caregiver in the home
--- NOTE | 2023-12-02 16:34 | PC.NURSE ---
Pt A/O Med for discomfort and nausea as peer orders. CBG 205; 158 & 332; med as per orders. Orders to not use pt insulin pump received. Pt SBA, standing @ bedside to use urinal. Call light w/in reach, pt calls appropriately for needs Continue w/plan of care.
[2023-12-02] MEDS: INSULIN LISPRO 100 UNIT/ML 3ML VIAL SUBCUT ×2 (16:52→21:45)
[2023-12-02 20:00] VITALS: BP 118/88; PULSE 87; RESP 14; TEMP 36.3; O2SAT 99
[2023-12-02] MEDS: INSULIN GLARGINE 100 UNIT/ML 3ML PEN 10 UNIT SUBCUT (21:46)
[2023-12-02] MEDS: diphenhydrAMINE 25 MG TABLET PO (23:26)
[2023-12-03] MEDS: HYDROMORPHONE 1 MG INJ IV ×5 (00:35→20:15)
[2023-12-03 02:00] VITALS: BP 134/89; PULSE 80; RESP 16; TEMP 36.2; O2SAT 99
[2023-12-03] MEDS: LEVOTHYROXINE 50 MCG TABLET PO (05:57)
[2023-12-03] MEDS: DEXTROSE 5%-0.9% NS 1,000 ML 125 ML IV (05:58)
[2023-12-03 07:01] LABS: BUN Creatinine Ratio 6.5 (6-22); Blood Urea Nitrogen 7 mg/dL (9-20); Calcium 7.8 mg/dL (8.4-10.2); Carbon Dioxide 27 mmol/L (22-32); Chloride 94 mmol/L (98-107); Estimated Glomerular Filt Rate > 60 mL/min (>60); Glucose 340 mg/dL (70-100); HEMOLYSIS < 15 (0-50); Potassium 3.6 mmol/L (3.4-5.1); Sodium 128 mmol/L (137-145)
--- NOTE | 2023-12-03 07:38 | PM.PN.1 ---
Subjective Subjective Interval history: Patient was admitted with 3 weeks of anorexia and intermittent nausea and vomiting. No DKA. The patient uses insulin pump. The patient was fluid resuscitated on the day of arrival and converted from pump to subcutaneous insulin. Subjective: Still nauseated and did try to vomit this morning. No BM for 2 weeks. No real intake for 2 weeks. He denies any abdominal pain or hematemesis. No dyspnea. Exam Vital Signs (past 8 hours): - 12/03/23 02:00 Temperature 97.2 F L Pulse Rate 80 Respiratory Rate 16 Blood Pressure 134/89 Pulse Oximetry 99 Oxygen Flow Rate 0 Oxygen Delivery Method Room Air Oxygen Flow Rate 0 Narrative Exam Narrative: NAD, alert and oriented. Fluent speech. Soft-spoken, chronically ill. Lungs are clear, normal rate and effort. Heart is regular, no murmur gallop or rub. Abdomen is soft, non distended. Extremities are free of edema. Objective Labs 12/02/23 05:11 12/03/23 06:26 Labs: Laboratory Results - last 24 hr 12/03/23 06:26 Sodium 128 L Potassium 3.6 Chloride 94 L Carbon Dioxide 27 BUN 7 L Creatinine 1.07 Estimated GFR > 60 BUN/Creatinine Ratio 6.5 Glucose 340 H D Calcium 7.8 L PFSH Medical History Generalized anxiety disorder Compression fracture Chronic lower back pain HTN (hypertension) Hypothyroidism Marijuana use History of MRSA infection History of pneumonia Blurry vision, bilateral Diabetic neuropathy Bipolar disorder with depression Nausea and vomiting Diabetes type 1, uncontrolled Diabetic gastroparesis Surgical History No pertinent past surgical history Family History Mother No known health problems Father No known health problems Social History household members: family Smoking Status: Former smoker alcohol intake: current Assessment & Plan Assessment & Plan narrative: 1. Diabetic Gastroparesis, present on admission and active. He was still remains relatively nauseated in his having vomiting. He was profound anorexia still. 2. SHAN, present on admission and improving. 3. Hyponatremia (128 today), present on admission and active. 4. Hypokalemia (3.6 today), present on admission and improving. 5. IDDM, present on admission and active. 6. GERD, present on admission and active. 7. Anxiety/Depression, present on admission and active. 8. Hypothyroidism, present on admission and active. PLAN: -IV fluids -replete potassium. -antiemetics. -monitor glucose, continue subcutaneous insulin. Pump off. HANS: 12/03-12/04 Time-Based Coding :: [TOTAL MINUTES] spent with patient and on the chart (including review of chart, obtaining history, exam, reviewing outside data, placing orders, documenting exam and treatment plan, and counseling patient) on [DATE]. Quality VTE Deep Vein Thrombosis/Pulmonary Embolism Present on Admission: No
[2023-12-03 08:00] VITALS: BP 166/108; PULSE 97; RESP 16; TEMP 36.5; O2SAT 99
[2023-12-03] MEDS: METOPROLOL ER 50 MG TABLET PO (08:15)
[2023-12-03] MEDS: PANTOPRAZOLE 40 MG VIAL IV (08:15)
[2023-12-03] MEDS: SUCRALFATE 1 GM TABLET PO ×2 (08:15→20:15)
[2023-12-03] MEDS: INSULIN LISPRO 100 UNIT/ML 3ML VIAL SUBCUT ×2 (08:15→21:33)
[2023-12-03] MEDS: METOCLOPRAMIDE 10 MG/2 ML INJ IV ×2 (08:20→15:16)
[2023-12-03] MEDS: INSULIN GLARGINE 100 UNIT/ML 3ML PEN 10 UNIT SUBCUT ×2 (08:21→21:34)
[2023-12-03] MEDS: ONDANSETRON 4 MG ODT SL (11:18)
--- NOTE | 2023-12-03 13:03 | PC.NURSE ---
Patients blood sugar this morning 389, inuslin given. Patient refused breakfast and did not eat anything. He had a 500cc emesis, given dilaudid and reglan which has been helpful to patient. He was given dilaudid again with otc zofran for complaints of nausea. Lunch time blood sugar 160, SRN and this RN got patients insulin ready which was 1u to be given and he asked us to take his blood sugar 15 minutes later, explained to patient that we usually do not take the sugar againt so early, he was not showing any signs or symptoms of hypoglycemia.. He stated that he thought his sugar would be lower. So this RN did check patients blood sugar and it was in the 120s, insulin not given. This RN asked patient if he had his own glucometer so he could randomly check his own sugars and he states no, he only has his own insulin pump. He has been given his insulin, and pain medications regulary today.
[2023-12-03] MEDS: ACETAMINOPHEN 325 MG TABLET 650 MG PO (15:00)
[2023-12-03] MEDS: OXYCODONE IR 5 MG TABLET PO (15:00)
--- NOTE | 2023-12-03 15:01 | DIET.CONS ---
Dietary Consultation Note Admission Date: 12/03/2023 13:38 Assessment: 33 y M admitted for N/V. PMH of gastroparesis and DM1. RD screened for low MNA. Met with pt at bedside this morning who reports 3 weeks of being unable to keep any food down. But, he reports appetite is improved today and tolerated some of breakfast and wants a regular lunch. Ordered lunch preferences with unit host. Reports having appt set up to see billing assistant, but was in hospital so had to skip. Is unsure he wants to reschedule. Has not seen endo yet. Per CDCES, pt needs to contact his insurance to find out what supply company he can obtain his insulin pump from that insurance will cover. Pt curled up in discomfort, NFPE postponed. Ht: 177.8 cm Wt: 75 kg BMI: 24.3 UBW: 11/15/23 was 79.435 kg, pt confirms this is UBW (-6% weight loss within a month, severe) Last BM: 11/10/23 (12/01/23 22:12) MNA: 10 Jimbo Score: 20 Diet: 12/02/23 Breakfast Carbohydrate Consistent Diet Diet Modifications: Carbohydrate level: Medium (3 CHO) Reflex DM orders: No Nutrition Percent Meal Consumed 10 12/03/23 08:40 Percent Meal Consumed 75% 12/02/23 18:00 Labs: RBC 4.72 X10^6/uL (4.5-5.9) 12/02/23 05:11 Hgb 11.4 g/dL (13.5-17.5) L 12/02/23 05:11 Hct 35.5 % (41-53) L 12/02/23 05:11 Creatinine 1.07 mg/dL (0.66-1.25) 12/03/23 06:26 Nutrition Diagnosis: Severe acute protein calorie malnutrition r/t nausea and vomiting as evidenced by <25% of estimated energy intakes for 3 weeks (severe) and 6% weight loss within 3 weeks (severe) Interventions: 1. Pt denies protein supplementation options to support intakes 2. Encouraged po intakes as tolerated with good protein sources at meals. Encouraged and offered help rescheduling appt with [facility] 3. Coordination of care with [facility] EER: [id number] kcals (25-30 kcals/kg) 75 g/kg (1 g/kg per SHAN with PCM) Monitoring/Evaluations: PO intakes Electronically Signed by: Julia Márquez 12/03/23 15:01 Clinical Dietitian [address] [address]
--- NOTE | 2023-12-03 15:21 | CM.DPC ---
Left voice mail with [facility] P [phone] to see if patient has an assessment set up for in home services with [facility]. SHANEKA Bond
[2023-12-03] MEDS: SODIUM CHLORIDE 0.9% FLUSH 10 ML IV (20:16)
[2023-12-03 20:30] VITALS: BP 128/90; PULSE 77; RESP 16; TEMP 36.7; O2SAT 98
[2023-12-03] MEDS: diphenhydrAMINE 25 MG TABLET PO (23:04)
[2023-12-04] MEDS: HYDROMORPHONE 1 MG INJ IV ×2 (00:30→06:36)
[2023-12-04] MEDS: ZOLPIDEM 5 MG TABLET PO ×2 (01:36→21:00)
[2023-12-04] MEDS: METOCLOPRAMIDE 10 MG/2 ML INJ IV (01:40)
[2023-12-04] MEDS: LEVOTHYROXINE 50 MCG TABLET PO (06:37)
[2023-12-04] MEDS: PANTOPRAZOLE DR 40 MG TABLET PO (06:42)
[2023-12-04] MEDS: ACETAMINOPHEN 325 MG TABLET 650 MG PO ×2 (08:56→21:00)
[2023-12-04 08:57] VITALS: BP 126/75; PULSE 73; PULSE 82; RESP 16; TEMP 36.5; O2SAT 95
[2023-12-04] MEDS: OXYCODONE IR 5 MG TABLET PO ×3 (08:57→20:59)
[2023-12-04] MEDS: SUCRALFATE 1 GM TABLET PO ×2 (08:57→21:00)
[2023-12-04] MEDS: METOPROLOL ER 50 MG TABLET PO (08:57)
[2023-12-04] MEDS: SODIUM CHLORIDE 0.9% FLUSH 10 ML IV ×2 (08:59→20:59)
[2023-12-04] MEDS: INSULIN GLARGINE 100 UNIT/ML 3ML PEN 10 UNIT SUBCUT ×2 (08:59→21:00)
[2023-12-04] MEDS: LORazepam 1 MG TABLET PO (12:17)
--- NOTE | 2023-12-04 14:15 | CM.DPC ---
DCP Note RN SURGERY ICU reviewed EMR. Per hospitalist in morning rounds, pt remains n/v, advance diet today. Per RN, pt ate more of breakfast and overall better. RN SURGERY ICU met with pt in room and introduced self and role. lengthy DCP conversation, reviewing reasons for continued ED visits. pt confirms that he's struggled with establishing care here in [place] after moving here in the spring. pt confirms that he's been on disability since he was 19 but the benefit did no transfer since moving here? RN SURGERY ICU reviewed [facility] program, pt interested. RN SURGERY ICU provided ppwk, pt to complete for CM team to fax with expedited form. Plan: Anticipate that patient will discharge home with family once again when medically cleared. Close OP F/u recommended, CM team will alert TCM at [place]. PCP/cosmetology educator follow up needs to be rescheduled. GORDON Sumner
--- NOTE | 2023-12-04 17:02 | PM.PN.1 ---
Subjective Subjective Interval history: Complaints of back pain today, consistent from his prior compression fractures. Still with mild nausea and vomiting. Still poor appetite. Exam Vital Signs (past 8 hours): Oxygen Delivery Method Room Air Oxygen Flow Rate 0 Narrative Exam Narrative: NAD, alert and oriented. Fluent speech. Soft-spoken, chronically ill. Lungs are clear, normal rate and effort. Heart is regular, no murmur gallop or rub. Abdomen is soft, non distended. Extremities are free of edema. Objective Labs 12/02/23 05:11 12/03/23 06:26 [facility] Medical History Generalized anxiety disorder Compression fracture Chronic lower back pain HTN (hypertension) Hypothyroidism Marijuana use History of MRSA infection History of pneumonia Blurry vision, bilateral Diabetic neuropathy Bipolar disorder with depression Nausea and vomiting Diabetes type 1, uncontrolled Diabetic gastroparesis Surgical History No pertinent past surgical history Family History Mother No known health problems Father No known health problems Social History household members: family Smoking Status: Former smoker alcohol intake: current Assessment & Plan Assessment & Plan narrative: 1. Diabetic Gastroparesis, present on admission and active. He was still remains relatively nauseated in his having vomiting. He was profound anorexia still. 2. SHAN, present on admission and improving. 3. Hyponatremia, present on admission and active. 4. Hypokalemia, present on admission and improving. 5. IDDM, present on admission and active. 6. GERD, present on admission and active. 7. Anxiety/Depression, present on admission and active. 8. Hypothyroidism, present on admission and active. PLAN: -monitor glucose, continue subcutaneous insulin. Pump off. -work on pain control with lidocaine patch and add gabapentin -stop IV fluids and monitor today -possible component of benzo withdrawal? restart home lorazepam for nausea. -repeat labs ordered for tomorrow to monitor the above electrolyte abnormalities. HANS: likely discharge home tomorrow if improved PO intake and improved pain control with above measures. Time-Based Coding :: [TOTAL MINUTES] spent with patient and on the chart (including review of chart, obtaining history, exam, reviewing outside data, placing orders, documenting exam and treatment plan, and counseling patient) on [DATE]. Quality VTE Deep Vein Thrombosis/Pulmonary Embolism Present on Admission: No
[2023-12-04] MEDS: INSULIN LISPRO 100 UNIT/ML 3ML VIAL SUBCUT (17:27)
[2023-12-04] MEDS: LIDOCAINE 5% PATCH 1 EACH TOP (17:43)
[2023-12-04] MEDS: GABAPENTIN 300 MG CAPSULE PO (21:00)
[2023-12-04 21:08] VITALS: BP 121/81; PULSE 66; RESP 16; TEMP 36.1; O2SAT 96
[2023-12-05] MEDS: OXYCODONE IR 5 MG TABLET PO ×5 (02:07→21:13)
[2023-12-05 04:42] LABS: Add Manual Diff / Slide Review NO; Basophils Absolute Auto 100 /uL (0-100); Basophils Percent Auto 0.9 % (0-2); Eosinophils Absolute Auto 100 /uL (0-450); Eosinophils Percent Auto 0.9 % (2-4); Hematocrit 29.8 % (41-53); Hemoglobin 9.7 g/dL (13.5-17.5); Lymphocytes Absolute Auto 1700 /uL (1100-4500); Lymphocytes Percent Auto 17.9 % (25-40); Mean Corpuscular HGB Conc 32.6 % (30-36); Mean Corpuscular Hemoglobin 24.3 PG (26-34); Mean Corpuscular Volume 74.5 fL (80-100); Monocytes Absolute Auto 1100 /uL (0-900); Monocytes Percent Auto 11.6 % (3-14); Neutrophils Absolute Auto 6400 /uL (1500-7000); Neutrophils Percent Auto 68.7 % (50-75); Platelet Count 208 X10^3/uL (150-400); Red Cell Distribution Width 16.6 % (11.6-14.8); White Blood Cell Count 9.3 X10^3/uL (4.5-11.0)
[2023-12-05 04:59] LABS: Alanine Aminotransferase 12 IU/L (<50); Albumin 2.7 g/dL (3.5-5.0); Albumin Globulin Ratio 1.1 (1.0-2.8); Alkaline Phosphatase 74 U/L (38-126); Aspartate Aminotransferase 22 IU/L (17-59); Bilirubin Total 0.3 mg/dL (0.2-1.3); Blood Urea Nitrogen 10 mg/dL (9-20); Calcium 8.3 mg/dL (8.4-10.2); Carbon Dioxide 30 mmol/L (22-32); Chloride 96 mmol/L (98-107); Estimated Glomerular Filt Rate > 60 mL/min (>60); Globulin 2.5 g/dL (1.7-4.1); Glucose 213 mg/dL (70-100); HEMOLYSIS 40 (0-50); Magnesium 1.7 mg/dL (1.6-2.3); Potassium 3.6 mmol/L (3.4-5.1); Sodium 128 mmol/L (137-145); Total Protein 5.2 g/dL (6.3-8.2)
[2023-12-05] MEDS: ACETAMINOPHEN 325 MG TABLET 650 MG PO ×2 (06:23→17:03)
[2023-12-05] MEDS: PANTOPRAZOLE DR 40 MG TABLET PO (06:24)
[2023-12-05] MEDS: LEVOTHYROXINE 50 MCG TABLET PO (06:24)
[2023-12-05] MEDS: INSULIN LISPRO 100 UNIT/ML 3ML VIAL SUBCUT ×3 (08:19→21:14)
[2023-12-05 08:23] VITALS: BP 148/88; PULSE 74
[2023-12-05] MEDS: METOPROLOL ER 50 MG TABLET PO (08:23)
[2023-12-05] MEDS: GABAPENTIN 300 MG CAPSULE PO ×2 (08:23→21:13)
[2023-12-05] MEDS: LIDOCAINE 5% PATCH 1 EACH TOP (08:24)
[2023-12-05] MEDS: SUCRALFATE 1 GM TABLET PO ×2 (08:24→21:14)
[2023-12-05] MEDS: INSULIN GLARGINE 100 UNIT/ML 3ML PEN 10 UNIT SUBCUT ×2 (08:26→21:14)
[2023-12-05] MEDS: SODIUM CHLORIDE 0.9% FLUSH 10 ML IV ×2 (08:39→21:17)
[2023-12-05] MEDS: METOCLOPRAMIDE 10 MG/2 ML INJ IV (09:18)
[2023-12-05] MEDS: MAGNESIUM CHLORIDE 64 MG TABLET 128 MG PO (09:20)
--- NOTE | 2023-12-05 14:39 | PM.PN.1 ---
Subjective Subjective Interval history: Complaints of back pain today, consistent from his prior compression fractures and unchanged. Still with mild nausea and vomiting. Still poor appetite. Exam Vital Signs (past 8 hours): - 12/05/23 08:23 Pulse Rate 74 Blood Pressure 148/88 H Oxygen Delivery Method Room Air Oxygen Flow Rate 0 Narrative Exam Narrative: NAD, alert and oriented. Fluent speech. Soft-spoken, chronically ill. Lungs are clear, normal rate and effort. Heart is regular, no murmur gallop or rub. Abdomen is soft, non distended. Extremities are free of edema. Objective Labs 12/05/23 04:34 12/05/23 04:34 Labs: Laboratory Results - last 24 hr 12/05/23 04:34 WBC 9.3 RBC 4.00 L Hgb 9.7 L Hct 29.8 L MCV 74.5 L MCH 24.3 L MCHC 32.6 RDW 16.6 H Plt Count 208 Neut % (Auto) 68.7 Lymph % (Auto) 17.9 L Mckenzie % (Auto) 11.6 Eos % (Auto) 0.9 L Baso % (Auto) 0.9 Neut # (Auto) 6400 Lymph # (Auto) 1700 Mckenzie # (Auto) 1100 H Eos # (Auto) 100 Baso # (Auto) 100 Sodium 128 L Potassium 3.6 Chloride 96 L Carbon Dioxide 30 BUN 10 Creatinine 1.11 Estimated GFR > 60 BUN/Creatinine Ratio 9.0 Glucose 213 H D Calcium 8.3 L Magnesium 1.7 Total Bilirubin 0.3 AST 22 ALT 12 Alkaline Phosphatase 74 Total Protein 5.2 L Albumin 2.7 L Globulin 2.5 Albumin/Globulin Ratio 1.1 [facility] Medical History Generalized anxiety disorder Compression fracture Chronic lower back pain HTN (hypertension) Hypothyroidism Marijuana use History of MRSA infection History of pneumonia Blurry vision, bilateral Diabetic neuropathy Bipolar disorder with depression Nausea and vomiting Diabetes type 1, uncontrolled Diabetic gastroparesis Surgical History No pertinent past surgical history Family History Mother No known health problems Father No known health problems Social History household members: family Smoking Status: Former smoker alcohol intake: current Assessment & Plan Assessment & Plan narrative: 1. Diabetic Gastroparesis, present on admission and active. He was still remains relatively nauseated in his having vomiting. He was profound anorexia still. 2. SHAN, present on admission and improving. 3. Hyponatremia, present on admission and active. 4. Hypokalemia, present on admission and improving. 5. IDDM, present on admission and active. 6. GERD, present on admission and active. 7. Anxiety/Depression, present on admission and active. 8. Hypothyroidism, present on admission and active. PLAN: -monitor glucose, continue subcutaneous insulin. Pump off. -work on pain control with lidocaine patch and add gabapentin -stopped IV fluids, labs stable but still minimal intake. -possible component of benzo withdrawal? restarted home lorazepam for nausea but mild improvement only. -start scheduled reglan today 5 mg AC -repeat labs ordered for tomorrow to monitor the above electrolyte abnormalities. HANS: likely discharge home tomorrow if improved PO intake and improved pain control with above measures. Time-Based Coding :: [TOTAL MINUTES] spent with patient and on the chart (including review of chart, obtaining history, exam, reviewing outside data, placing orders, documenting exam and treatment plan, and counseling patient) on [DATE]. Quality VTE Deep Vein Thrombosis/Pulmonary Embolism Present on Admission: No
[2023-12-05] MEDS: METOCLOPRAMIDE HCL 5 MG TABLET PO (17:00)
[2023-12-05 17:36] VITALS: BP 106/82; PULSE 73; RESP 16; TEMP 36.2; O2SAT 100
[2023-12-05 17:38] VITALS: BP 106/82; PULSE 73
[2023-12-05 21:00] VITALS: BP 164/96; PULSE 71; RESP 16; TEMP 36.1; O2SAT 97
[2023-12-05] MEDS: ZOLPIDEM 5 MG TABLET PO (21:13)
[2023-12-06] MEDS: OXYCODONE IR 5 MG TABLET PO ×3 (02:54→12:50)
[2023-12-06] MEDS: LEVOTHYROXINE 50 MCG TABLET PO (06:02)
[2023-12-06] MEDS: PANTOPRAZOLE DR 40 MG TABLET PO (06:02)
[2023-12-06 08:00] VITALS: BP 124/89; PULSE 85; RESP 16; TEMP 36.2; O2SAT 100
[2023-12-06] MEDS: METOPROLOL ER 50 MG TABLET PO (08:00)
[2023-12-06] MEDS: METOCLOPRAMIDE HCL 5 MG TABLET PO ×2 (08:01→11:43)
[2023-12-06] MEDS: GABAPENTIN 300 MG CAPSULE PO (08:01)
[2023-12-06] MEDS: SUCRALFATE 1 GM TABLET PO (08:01)
[2023-12-06] MEDS: ACETAMINOPHEN 325 MG TABLET 650 MG PO ×2 (08:01→12:50)
[2023-12-06] MEDS: LIDOCAINE 5% PATCH 1 EACH TOP (08:02)
[2023-12-06] MEDS: INSULIN GLARGINE 100 UNIT/ML 3ML PEN 10 UNIT SUBCUT (08:05)
[2023-12-06] MEDS: INSULIN LISPRO 100 UNIT/ML 3ML VIAL SUBCUT ×2 (08:06→11:42)
--- NOTE | 2023-12-06 09:39 | PM.DS.1 ---
History of Present Illness History of Present Illness Date Patient Seen: 12/06/23 Time Patient Seen: 09:40 Date of Onset of Symptoms: 11/28/23 Chief complaint: N/V, Lethargic Narrative: Per admitting provider, 33 y/o with PMH of IDDM type 1, diabetic gastroparesis and previous hospitalizations related to DM complications, such as a week ago for DKA, who presented with intractable nausea and vomiting. On admission complaines on back pain and images showing old L1 fracture. Not acidotic with ketones, likely starvation - poor intake At one point borderline hypoglycemic, started on D5 at 125 cc/h Multiple doses of antiemetics insufficient to enable oral rehydration and adequate intake - placed in observation Discharge Providers Provider Date of admission: 12/03/23 13:38 Discharge Date: 12/06/23 Primary care physician: James Jung DO Discharge provider: Jagjit Phipps DO Summary Hospital Course Discharge Diagnosis: 1. Diabetic Gastroparesis, present on admission and active. He was still remains relatively nauseated in his having vomiting. He was profound anorexia still. 2. SHAN, present on admission and improving. 3. Hyponatremia, present on admission and active. 4. Hypokalemia, present on admission and improving. 5. IDDM, present on admission and active. 6. GERD, present on admission and active. 7. Anxiety/Depression, present on admission and active. 8. Hypothyroidism, present on admission and active. Hospital Course: This is a 33 year old male with DM1 on insulin pump therapy, frequent admissions for DKA and intractable nausea and vomiting who was admitted for nausea, vomiting and back pain. There was no evidence of pancreatitis or DKA on admission. He had a mild SHAN which improved with fluids. After a couple of days of antiemetics, and then scheduled reglan the patient felt improved. He was discharged home with recommendation for scheduled reglan before meals, along with some pain medications for his low back pain which is ongoing and chronic. No other changes were recommended to his home therapy on discharge. Would recommend GI follow up to discuss ongoing management of gastroparesis in the future. Time Spent with Patient Time spent: Greater than 30 minutes Exam Vital Signs (past 8 hours): - 12/06/23 08:00 Temperature 97.1 F L Pulse Rate 85 Respiratory Rate 16 Blood Pressure 124/89 Pulse Oximetry 100 Oxygen Flow Rate 0 Oxygen Delivery Method Room Air Oxygen Flow Rate 0 Narrative Exam Narrative: NAD, alert and oriented. Fluent speech. Soft-spoken, chronically ill. Lungs are clear, normal rate and effort. Heart is regular, no murmur gallop or rub. Abdomen is soft, non distended. Extremities are free of edema. Objective Labs 12/06/23 09:30 12/06/23 09:30 [facility] Medical History Generalized anxiety disorder Compression fracture Chronic lower back pain HTN (hypertension) Hypothyroidism Marijuana use History of MRSA infection History of pneumonia Blurry vision, bilateral Diabetic neuropathy Bipolar disorder with depression Nausea and vomiting Diabetes type 1, uncontrolled Diabetic gastroparesis Surgical History No pertinent past surgical history Family History Mother No known health problems Father No known health problems Social History household members: family Smoking Status: Former smoker alcohol intake: current Discharge Plan Discharge Plan Patient Disposition: Home Provider Discharge Comment: You were admitted to the hospital with nausea. Continue metoclopramide 5 mg before meals. Follow up with PCP within 1-2 weeks for ongoing management of DM and gastroparesis Discharge orders & Medications Prescriptions: New metoclopramide HCl 5 mg Tablet 5 mg PO AC 30 Days Qty: 90 0RF gabapentin 300 mg Capsule 300 mg PO BID 90 Days Qty: 180 0RF oxycodone 5 mg Tablet 5 mg PO Q4HR PRN (Reason: Pain, Moderate (4-6)) 7 Days Qty: 30 0RF Continued hydroxyzine HCl 10 mg tablet 10 mg PO TID PRN (Reason: anxiety) Qty: 84 0RF metoprolol succinate 50 mg tablet extended release 24 hr 50 mg PO DAILY omeprazole 40 mg capsule,delayed release(DR/EC) 40 mg PO BID Qty: 60 3RF levothyroxine 50 mcg tablet 50 mcg PO DAILY Qty: 90 1RF Humulin R Regular U-100 Insuln 100 unit/mL solution 9 unit SUBCUT ACHS Patient Comments: [NO ORIGINAL SIG] Rx Instructions: via insulin pump .19 units per hour paroxetine HCl 10 mg tablet 10 mg PO DAILY Qty: 30 2RF sucralfate [Carafate] 1 gram tablet 1 g PO BID Qty: 60 1RF lorazepam 1 mg tablet 1 mg PO BID PRN (Reason: nausea and vomiting) Qty: 30 1RF diphenhydramine HCl 25 mg Tablet 25 mg PO BEDTIME PRN (Reason: Insomnia) (DME) Extended [place] 3 mL Misc MISCELLANEOUS Rx Instructions: patient uses insulin pump zolpidem [Ambien] 5 mg Tablet 5 mg PO BEDTIME PRN (Reason: Insomnia) promethazine 25 mg suppository 25 mg UT Q6H PRN (Reason: nausea and vomiting) Qty: 12 0RF Discontinued metoclopramide HCl [Reglan] 10 mg tablet 10 mg PO Q8HR PRN (Reason: nausea and vomiting) Qty: 40 2RF Follow up/Referrals: James Jung DO [Primary Care Provider] - Diet/Activity/Treatments Diet: Diet as Tolerated and Carb-consistent/Diabetic Activity: As tolerated, no restrictions. Visit Report/Discharge Packet Stand Alone Forms: Patient Portal/API, Stroke Signs & Symptoms Discharge Data Primary Care Provider: James Jung Quality VTE Deep Vein Thrombosis/Pulmonary Embolism Present on Admission: No
[2023-12-06 09:46] LABS: Add Manual Diff / Slide Review NO; Basophils Absolute Auto 100 /uL (0-100); Basophils Percent Auto 0.8 % (0-2); Eosinophils Absolute Auto 100 /uL (0-450); Hematocrit 30.9 % (41-53); Lymphocytes Absolute Auto 1800 /uL (1100-4500); Lymphocytes Percent Auto 23.6 % (25-40); Mean Corpuscular HGB Conc 32.3 % (30-36); Mean Corpuscular Hemoglobin 24.2 PG (26-34); Mean Corpuscular Volume 74.9 fL (80-100); Monocytes Absolute Auto 900 /uL (0-900); Monocytes Percent Auto 11.5 % (3-14); Neutrophils Absolute Auto 4700 /uL (1500-7000); Neutrophils Percent Auto 63.1 % (50-75); Platelet Count 239 X10^3/uL (150-400); Red Blood Cell Count 4.13 X10^6/uL (4.5-5.9); Red Cell Distribution Width 16.4 % (11.6-14.8); White Blood Cell Count 7.5 X10^3/uL (4.5-11.0)
[2023-12-06 09:59] LABS: Alanine Aminotransferase 13 IU/L (<50); Albumin 3.2 g/dL (3.5-5.0); Albumin Globulin Ratio 1.2 (1.0-2.8); Alkaline Phosphatase 78 U/L (38-126); Aspartate Aminotransferase 19 IU/L (17-59); BUN Creatinine Ratio 14.6 (6-22); Bilirubin Total 0.3 mg/dL (0.2-1.3); Blood Urea Nitrogen 15 mg/dL (9-20); Calcium 8.7 mg/dL (8.4-10.2); Carbon Dioxide 29 mmol/L (22-32); Chloride 97 mmol/L (98-107); Estimated Glomerular Filt Rate > 60 mL/min (>60); Globulin 2.6 g/dL (1.7-4.1); Glucose 254 mg/dL (70-100); HEMOLYSIS < 15 (0-50); Magnesium 1.8 mg/dL (1.6-2.3); Potassium 3.8 mmol/L (3.4-5.1); Sodium 130 mmol/L (137-145); Total Protein 5.8 g/dL (6.3-8.2)
--- NOTE | 2023-12-06 13:23 | PC.NURSE ---
Patient is A&OX4, VSS, afebrile on RA. He tolerates breakfast well this a.m. w/o n/v. He reports back pain is controlled with prn oxycodone and tylenol. He has had a BM he reports yesterday. MD evaluating patient at bedside and cleares him for discharge home today with prescriptions and recommendation of close 1-2 week follow up with PCP.He verbalizes understanding of discharge medications, and is eager to discharge home today. His grand mother arrives to transport him home in private vehicle and he is escorted to vehicle via w/ch by RN at 1300 this afternoon.
--- NOTE | 2023-12-06 13:26 | CM.DPNOTE ---
DC Note Patient is discharging home today, grandma for transportation. Met w/patient and his grandma-who appears spry, active and indp- reviewed discharge plan. Both agreeable. Messaged the Care Transitions nursing team in Dr Jung's office that patient is discharging home today. Patient appeared to have missed his PCP and patient educator appointments, both need to be rescheduled. Patient completed and signed the [employer] assisted care application in order to be considered for [facility] in home care. This [employer] [employer] [facility] faxed to [facility] on patient's behalf. HCS Intake and Referral form ([facility] form [id number]) a form that requests an expedited review and assessment, was not used as that form is reserved for those that are in the hospital awaiting placement and need their functional assessment MISAEL. JW
== END 2023-12-06 13:00 | disposition home or self-care (01) | DRG 48 ==
LOC: ED 22:11 → AC 22:12
PROVIDERS: Internal Medicine; Admitting Provider Internal Medicine; Emergency Provider Emergency Medicine; PCP Family Medicine; Referring Provider Emergency Medicine; Visit Provider Internal Medicine
DX: E11.43 Type 2 diabetes mellitus with diabetic autonomic (poly)neuropathy (principal); K31.84 Gastroparesis; N17.9 Acute kidney failure, unspecified; E87.1 Hypo-osmolality and hyponatremia; E87.6 Hypokalemia; F41.1 Generalized anxiety disorder; K21.9 Gastro-esophageal reflux disease without esophagitis; E03.9 Hypothyroidism, unspecified; I10 Essential (primary) hypertension; M48.56XA Collapsed vertebra, not elsewhere classified, lumbar region, initial encounter for fracture; F32.A Depression, unspecified; Z96.41 Presence of insulin pump (external) (internal); Z87.891 Personal history of nicotine dependence
CPT/HCPCS: 36415; 72128; 72131; 80048; 80053; 82009; 82805; 82962; 83690; 83735; 84484; 85025; 93005; 96361; 96365; 96375; 99284; 99285; G0378; J1171; J1200; J1815; J2405; J2470; J2765

== ENCOUNTER 2023-12-16 10:35 | Inpatient (IN) | payer MEDICAID, OTHER, SELFPAY ==
[2023-12-01 22:12] VITALS: BMI 24.3
[2023-12-16] VITALS (29 sets, daily range): BP systolic 97–182; BP diastolic 59–120; PULSE 80–235; RESP 12–25; TEMP 36.2–36.5; O2SAT 95–100; BMI 17.3
--- NOTE | 2023-12-16 10:47 | EKG_ITS ---
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
--- NOTE | 2023-12-16 10:57 | ED_ITS ---
HPI - Nausea/Vomiting/Diarrhea General Chief complaint: Nausea/Vomiting/Diarrhea Stated complaint: Vomiting Time Seen by Provider: 12/16/23 10:47 Source: patient Mode of arrival: EMS History of Present Illness HPI Narrative: Patient is a 33-year-old male history of insulin-dependent diabetic diabetic gastroparesis multiple hospitalizations related to diabetes and complications recently admitted November 30 through December 05. He reports that he does not have a glucometer again. He has been vomiting since last night unable to keep anything down. Monitor showed initially a heart rate of 230 but it was not accurate heart rate is sinus tach at 118-120 he has a little diaphoretic. It glucose is 350 Related Data Home Medications Medication Instructions Recorded Confirmed diphenhydramine HCl 25 mg tablet 25 mg PO BEDTIME PRN Insomnia 07/09/23 12/01/23 insulin pump syringe 3 mL 10/04/23 12/01/23 (Extended [place]) metoprolol succinate 50 mg 50 mg PO DAILY 10/22/23 12/01/23 tablet,extended release 24 hr zolpidem 5 mg tablet (Ambien) 5 mg PO BEDTIME PRN Insomnia 11/05/23 12/01/23 insulin regular human 100 unit/mL 9 unit SUBCUT ACHS 11/15/23 12/02/23 injection solution (Humulin R Regular U-100 Insulin) Previous Rx's Medication Instructions Recorded levothyroxine 50 mcg tablet 50 mcg PO DAILY #90 tabs 10/22/23 omeprazole 40 mg capsule,delayed 40 mg PO BID #60 caps 10/22/23 release hydroxyzine HCl 10 mg tablet 10 mg PO TID PRN anxiety #84 tabs 11/08/23 lorazepam 1 mg tablet 1 mg PO BID PRN nausea and 11/15/23 vomiting #30 tabs paroxetine HCl 10 mg tablet 10 mg PO DAILY #30 tabs 11/15/23 sucralfate 1 gram tablet (Carafate) 1 g PO BID #60 tabs 11/15/23 promethazine 25 mg rectal 25 mg MN Q6H PRN nausea and 11/27/23 suppository vomiting #12 ea gabapentin 300 mg capsule 300 mg PO BID 90 days #180 caps 12/06/23 metoclopramide HCl 5 mg tablet 5 mg PO AC 30 days #90 tabs 12/06/23 Allergies Allergy/AdvReac Type Severity Reaction Status Date / Time aspirin [ASPIRIN] Allergy Unknown MAKES ME Verified 12/16/23 10:45 GO DEAF hydrocodone [HYDROCODONE] AdvReac Intermediate VOMITING Verified 12/16/23 10:45 ibuprofen [IBUPROFEN] AdvReac Intermediate HURTS Verified 12/16/23 10:45 KIDNEYS Patient History Medical History Generalized anxiety disorder Compression fracture Chronic lower back pain HTN (hypertension) Hypothyroidism Marijuana use History of MRSA infection History of pneumonia Blurry vision, bilateral Diabetic neuropathy Bipolar disorder with depression Nausea and vomiting Diabetes type 1, uncontrolled Diabetic gastroparesis Surgical History No pertinent past surgical history Family History (Reviewed 12/02/23 @ : by Kiran Moore MD) Mother No known health problems Father No known health problems Social History household members: family Smoking Status: Former smoker alcohol intake: current Smoking Status: Former smoker alcohol intake frequency: holidays/special occasions only Alcohol type: hard liquor Substance Use Type: marijuana Exam Initial Vital Signs Initial Vital Signs: Vital Signs Temperature 97.7 F 12/16/23 10:35 Pulse Rate 120 H 12/16/23 10:35 Respiratory Rate 24 12/16/23 10:35 Blood Pressure 111/73 12/16/23 10:35 Pulse Oximetry 99 12/16/23 10:35 Oxygen Delivery Method Room Air 12/16/23 10:35 GENERAL: Alert 33-year-old male actively vomiting HEENT: Head atraumatic,EOMI, pupils reactive, face symmetric, drawn mucous membranes CARDIOVASCULAR: Regular rate and rhythm without murmurs, rubs or gallops. RESPIRATORY: Breath sounds equal bilaterally, no wheezes rales or rhonchi. ABDOMEN: Soft, nontender. Normoactive bowel sounds all 4 quadrants. No guarding or rebound. EXTREMITIES: Normal range of motion, no clubbing or edema. Neurovascularly intact NEUROLOGICAL: Alert and oriented x4.Normal gait and speech. SKIN: Warm, dry, no laceration, no petechiae, no rashes or lesions. Course Orders Ordered: ED Orders 12/16/23 10:47 EKG-12 Lead Routine 12/16/23 11:05 CBC Auto Diff [Complete Blood Count AUTO DIFF] Stat CMP [Comprehensive Metabolic Panel] Stat Ketones (Beta-Hydroxybutyrate) Stat Lipase Stat 12/16/23 11:13 Venous Blood Gas Routine Acetaminophen (Acetaminophen 325 Mg Tablet) 650 mg PO Q4HR PRN PRN Reason: Fever/Mild Pain (1-3) Last Admin: 12/16/23 14:08 Dose: 650 mg Documented By: RADHA Hydromorphone HCl (Hydromorphone 1 Mg Inj) 1 mg IV Q4H PRN PRN Reason: Pain, Moderate (4-6) Last Admin: 12/16/23 18:33 Dose: 1 mg Documented By: Admin: 12/16/23 14:07 Dose: 1 mg Documented By: RADHA Sodium Chloride (Normal Saline 0.9%) 1,000 mls @ 100 mls/hr IV CONT XENA Last Infusion: 12/16/23 14:17 Dose: 0 mls/hr Documented By: Infusion: 12/16/23 13:47 Dose: 100 mls/hr Documented By: Admin: 12/16/23 13:16 Dose: 100 mls/hr Documented By: TARAH INSULIN DRIP PREMIX (Myxredlin Drip Premix) 100 unit in 100 mls @ 5.489 mls/hr IV TITRATE XENA; Protocol Last Titration: 12/16/23 18:21 Dose: 0.05 unit/kg/hr, 2.744 mls/hr Documented By: RADHA Co-signed By: GREG Titration: 12/16/23 13:45 Dose: 0.1 unit/kg/hr, 5.489 mls/hr Documented By: TARAH Co-signed By: RLS Admin: 12/16/23 13:16 Dose: 0.1 unit/kg/hr, 5.489 mls/hr Documented By: TARAH Co-signed By: SHADI Acetaminophen (Ofirmev) 1,000 mg in 100 mls @ 400 mls/hr IV Q6H PRN PRN Reason: Fever/Mild Pain (1-3) Dextrose/Sodium Chloride (Dextrose 5%-0.45% Ns) 1,000 mls @ 84 mls/hr IV CONT XENA Last Admin: 12/16/23 14:29 Dose: 82 mls/hr Documented By: RADHA Dextrose (D10w) 1,000 mls @ 100 mls/hr IV CONT XENA Last Infusion: 12/16/23 18:21 Dose: 0 mls/hr Documented By: Admin: 12/16/23 17:29 Dose: 109 mls/hr Documented By: GREG Lidocaine (Lidocaine 5% Patch) 1 each TOP DAILY XENA Last Admin: 12/16/23 14:08 Dose: 1 each Documented By: RADHA Lidocaine (Remove Lidocaine Patch) 1 each TOP BEDTIME [facility] Metoclopramide HCl (Metoclopramide 10 Mg/2 Ml Inj) 10 mg IV Q6HR PRN PRN Reason: Nausea And Vomiting Naloxone HCl (Naloxone 0.4 Mg/Ml Vial) 0.2 mg IV Q2MIN PRN PRN Reason: Opiate Reversal Ondansetron HCl (Ondansetron 4 Mg/2 Ml Inj) 4 mg IV Q4HR PRN PRN Reason: nausea and vomiting Last Admin: 12/16/23 16:58 Dose: 4 mg Documented By: GREG Discontinued Medications Enoxaparin Sodium (Enoxaparin 40 Mg/0.4 Ml Syringe) 40 mg SUBCUT DAILY [facility] Sodium Chloride (Normal Saline 0.9%) 1,000 mls @ 1,000 mls/hr IV BOLUS ONE Stop: 12/16/23 11:47 Last Infusion: 12/16/23 12:20 Dose: Infused Documented By: Admin: 12/16/23 11:19 Dose: 1,000 mls/hr Documented By: SHADI Acetaminophen (Ofirmev) 1,000 mg in 100 mls @ 400 mls/hr IV NOW ONE Stop: 12/16/23 12:50 Last Infusion: 12/16/23 13:03 Dose: Infused Documented By: Admin: 12/16/23 12:44 Dose: 400 mls/hr Documented By: SHADI Piperacillin Sod/Tazobactam (Sod 4.5 gm/ Sodium Chloride) 100 mls @ 200 mls/hr IV NOW ONE Stop: 12/16/23 12:49 Last Infusion: 12/16/23 13:47 Dose: Infused Documented By: Admin: 12/16/23 13:17 Dose: 200 mls/hr Documented By: TARAH POTASSIUM CHLORIDE IN WATER (Potassium Cl 10 Meq/100 Ml [place]) 10 meq in 100 mls @ 100 mls/hr IV Q1H XENA Stop: 12/16/23 15:43 Last Admin: 12/16/23 16:22 Dose: 100 mls/hr Documented By: Infusion: 12/16/23 15:26 Dose: Infused Documented By: Admin: 12/16/23 14:26 Dose: 100 mls/hr Documented By: RADHA Metoclopramide HCl (Metoclopramide 10 Mg/2 Ml Inj) 10 mg IV NOW ONE Stop: 12/16/23 11:16 Last Admin: 12/16/23 11:19 Dose: 10 mg Documented By: SHADI Ondansetron HCl (Ondansetron 4 Mg/2 Ml Inj) 4 mg IV NOW ONE Stop: 12/16/23 10:49 Last Admin: 12/16/23 11:16 Dose: Not Given Documented By: SHADI Pantoprazole Sodium (Pantoprazole 40 Mg Vial) 40 mg IV NOW ONE Stop: 12/16/23 12:04 Last Admin: 12/16/23 12:21 Dose: 40 mg Documented By: SHADI Vital Signs Vital signs: Vital Signs - 8 hr 12/16/23 11:00 12/16/23 11:27 12/16/23 11:27 Pulse Rate 106 H 118 H Respiratory Rate 25 H Blood Pressure 97/67 Pulse Oximetry 100 98 12/16/23 11:30 12/16/23 11:30 12/16/23 12:00 Pulse Rate 103 H Respiratory Rate 19 Blood Pressure 147/99 H 129/76 Pulse Oximetry 98 12/16/23 12:00 12/16/23 12:30 12/16/23 12:30 Pulse Rate 96 H 109 H Respiratory Rate 13 Blood Pressure 182/120 H Pulse Oximetry 96 99 MDM - Nausea/Vomiting/Diarrhea Lab Data 12/16/23 11:05 12/16/23 11:05 Labs: Lab Results 12/16/23 12/16/23 Range/Units 11:05 11:13 WBC 21.5 H (4.5-11.0) X10^3/uL RBC 5.04 (4.5-5.9) X10^6/uL Hgb 11.8 L (13.5-17.5) g/dL Hct 36.9 L (41-53) % MCV 73.2 L (80-100) fL MCH 23.5 L (26-34) PG MCHC 32.1 (30-36) % RDW 16.7 H (11.6-14.8) % Plt Count 416 H (150-400) X10^3/uL Neut % (Auto) 87.9 H (50-75) % Lymph % (Auto) 7.8 L (25-40) % [place] % (Auto) 4.2 (3-14) % Eos % (Auto) 0.0 L (2-4) % Baso % (Auto) 0.1 (0-2) % Neut # (Auto) 27302 H (5284-9243) /uL Lymph # (Auto) 1700 (8021-9992) /uL [place] # (Auto) 900 (0-900) /uL Eos # (Auto) 0 (0-450) /uL Baso # (Auto) 0 (0-100) /uL VBG pH 7.75 H (7.33-7.43) VBG pO2 61 H (35-45) mmHg VBG HCO3 19 L (24-28) mmol/L VBG Total CO2 18 L (24-29) mmol/L VBG O2 Saturation 97 H (70-75) % VBG Base Excess 2.7 (0-4) mmol/L Sodium 133 L (137-145) mmol/L Potassium 4.3 (3.4-5.1) mmol/L Chloride 93 L (98-107) mmol/L Carbon Dioxide 14 L (22-32) mmol/L BUN 26 H (9-20) mg/dL Creatinine 2.14 H (0.66-1.25) mg/dL Estimated GFR 41 L (>60) mL/min BUN/Creatinine Ratio 12.1 (6-22) Glucose 363 H (70-100) mg/dL Calcium 9.6 (8.4-10.2) mg/dL Total Bilirubin 1.4 H (0.2-1.3) mg/dL AST 24 (17-59) IU/L ALT 40 (<50) IU/L Alkaline Phosphatase 118 (38-126) U/L Total Protein 7.9 (6.3-8.2) g/dL Albumin 4.8 (3.5-5.0) g/dL Globulin 3.1 (1.7-4.1) g/dL Albumin/Globulin Ratio 1.5 (1.0-2.8) Lipase 34 (23-300) U/L Ketones 5.50 H (<0.27) mmol/L Point of Care Testing Glucose POC 378 ECG Data Attestation: I personally reviewed and interpreted this ECG as follows: Prior ECG tracings: available for review Interpretation: Sinus tachycardia rate 120 MN interval 136 QRS 70 QTC 497 changes MDM Narrative Medical decision making narrative: MDM CC: Vomiting Complicating co-morbidities: Non controlled insulin-dependent diabetes, gastroparesis, noncompliance Medical records reviewed: Recent admission November 30 through December 05 for gastroparesis Differential considered: DKA bowel obstruction Exam documented above, pertinent findings include: Actively vomiting dry mucous membranes Lab Test results independently reviewed as above. Pertinent findings: WBC 21 new from prior ABG pH 7.7 he always appears to be alkalotic he was previously alkalotic 7.5 he was acidotic on November 20 at 7.1 CMP shows sodium 133 potassium 4.3 chloride 93 bicarb 14 BUN 26 creatinine 2.14 previously 1.0, glucose 363 Ketones 5.5 Anion gap 26 Independently reviewed EKG as above: Sinus tachycardia no ischemia Imaging studies independently reviewed: Consultations: Dr. Phipps accepts to ICU Treatments: IV fluids insulin drip Zosyn Re-evaluations: Still vomiting but feeling a little bit better Discussion: Patient 33-year-old male history of noncompliance diabetes presents today with ongoing nausea vomiting. He reports that he is wearing his insulin pump he has not been able to check his sugar. Glucose is noted to be mildly elevated 363 with positive ketones anion gap pH is alkalotic at 7.7 unclear why. He also has a new leukocytosis of 21 which he has not had previously. He is blood cultures pending and was given a dose of Zosyn. No obvious source of infection. Discharge Plan Departure Patient Disposition: Admitted As Inpatient Clinical Impression: DKA (diabetic ketoacidosis) Admit Date/Time: 12/16/23 12:46 Admit Provider: Jagjit Phipps
[2023-12-16 11:19] LABS: Add Manual Diff / Slide Review NO; Basophils Absolute Auto 0 /uL (0-100); Basophils Percent Auto 0.1 % (0-2); Eosinophils Absolute Auto 0 /uL (0-450); Hematocrit 36.9 % (41-53); Hemoglobin 11.8 g/dL (13.5-17.5); Lymphocytes Absolute Auto 1700 /uL (1100-4500); Lymphocytes Percent Auto 7.8 % (25-40); Mean Corpuscular HGB Conc 32.1 % (30-36); Mean Corpuscular Hemoglobin 23.5 PG (26-34); Mean Corpuscular Volume 73.2 fL (80-100); Monocytes Absolute Auto 900 /uL (0-900); Monocytes Percent Auto 4.2 % (3-14); Neutrophils Absolute Auto 18900 /uL (1500-7000); Neutrophils Percent Auto 87.9 % (50-75); Platelet Count 416 X10^3/uL (150-400); Red Blood Cell Count 5.04 X10^6/uL (4.5-5.9); Red Cell Distribution Width 16.7 % (11.6-14.8); White Blood Cell Count 21.5 X10^3/uL (4.5-11.0)
[2023-12-16 11:19] LABS: Base Excess VBG 2.7 mmol/L (0-4); HCO3 VBG 19 mmol/L (24-28); Oxygen Saturation VBG 97 % (70-75); PO2 VBG 61 mmHg (35-45); Total CO2 VBG 18 mmol/L (24-29); pH VBG 7.75 (7.33-7.43)
[2023-12-16] MEDS: METOCLOPRAMIDE 10 MG/2 ML INJ IV ×2 (11:19→22:38)
[2023-12-16] MEDS: SODIUM CHLORIDE 0.9% 1,000 ML 1000 ML IV (11:19)
[2023-12-16 11:29] LABS: HEMOLYSIS < 15 (0-50)
[2023-12-16 11:34] LABS: Alanine Aminotransferase 40 IU/L (<50); Albumin 4.8 g/dL (3.5-5.0); Albumin Globulin Ratio 1.5 (1.0-2.8); Alkaline Phosphatase 118 U/L (38-126); Aspartate Aminotransferase 24 IU/L (17-59); BUN Creatinine Ratio 12.1 (6-22); Bilirubin Total 1.4 mg/dL (0.2-1.3); Blood Urea Nitrogen 26 mg/dL (9-20); Calcium 9.6 mg/dL (8.4-10.2); Carbon Dioxide 14 mmol/L (22-32); Chloride 93 mmol/L (98-107); Estimated Glomerular Filt Rate 41 mL/min (>60); Globulin 3.1 g/dL (1.7-4.1); Glucose 363 mg/dL (70-100); Lipase 34 U/L (23-300); Potassium 4.3 mmol/L (3.4-5.1); Sodium 133 mmol/L (137-145); Total Protein 7.9 g/dL (6.3-8.2)
[2023-12-16] MEDS: PANTOPRAZOLE 40 MG VIAL IV (12:21)
[2023-12-16] MEDS: ACETAMINOPHEN IV 1,000 MG/100 ML VIAL 400 MG IV (12:44)
[2023-12-16] MEDS: SODIUM CHLORIDE 0.9% 1,000 ML 100 ML IV (13:16)
[2023-12-16] MEDS: INSULIN DRIP PREMIX 100 UNIT/100 ML PLAST..BAG 5.489 UNIT IV (13:16)
--- NOTE | 2023-12-16 13:16 | PC.NURSE ---
Abd pain and back pain w/ N/V and coffee ground emesis x2days. States he has not received his blood sugar monitor; reports no follow up in the last 4 weeks for this. Respirations regular and unlabored.
[2023-12-16] MEDS: PIPERACILLIN/TAZO 4.5 GM in SODIUM CHLORIDE 0.9% 100 ML IV (13:17)
[2023-12-16] MEDS: HYDROMORPHONE 1 MG INJ IV ×3 (14:07→22:37)
[2023-12-16] MEDS: LIDOCAINE 5% PATCH 1 EACH TOP (14:08)
[2023-12-16] MEDS: ACETAMINOPHEN 325 MG TABLET 650 MG PO (14:08)
[2023-12-16] MEDS: POTASSIUM CHLORIDE IN WATER 10 MEQ/100 ML PIGGYBACK 100 MEQ IV ×2 (14:26→16:22)
[2023-12-16] MEDS: DEXTROSE 5%-0.45% NS 1,000 ML 82 ML IV (14:29)
[2023-12-16] MEDS: ONDANSETRON 4 MG/2 ML INJ IV (16:58)
[2023-12-16] MEDS: DEXTROSE 10 % IN WATER 1,000 ML 109 ML IV (17:29)
--- NOTE | 2023-12-16 18:33 | P.HP_ITS ---
History of Present Illness History of Present Illness Date Patient Seen: 12/16/23 Time Patient Seen: 18:33 Chief complaint: Vomiting Narrative: 33 y/o with PMH of IDDM type 1, diabetic gastroparesis and previous hospitalizations related to DM complications, who presented with reported hematemesis. He reports his pump is working. He does not have a glucometer. His provider he states ordered this but he hasn't received it in 3 or 4 weeks. He denies cough, chest pain, shortness of breath. No dark stools reported. ER labs shows an elevated h/h from last admission. VBG with pH of 7.75, but on labs bicarb was 14 with an elevated anion gap and ketones of 5.5. I asked he be started on insulin infusion. He was admitted to the ICU for presumed DKA. [facility] Medical History Generalized anxiety disorder Compression fracture Chronic lower back pain HTN (hypertension) Hypothyroidism Marijuana use History of MRSA infection History of pneumonia Blurry vision, bilateral Diabetic neuropathy Bipolar disorder with depression Nausea and vomiting Diabetes type 1, uncontrolled Diabetic gastroparesis Surgical History No pertinent past surgical history Family History Mother No known health problems Father No known health problems Social History household members: family Smoking Status: Former smoker alcohol intake: current Meds Home Medications and Allergies Home Medications Medication Instructions Recorded Confirmed Type diphenhydramine HCl 25 mg tablet 25 mg PO BEDTIME PRN Insomnia 07/09/23 12/01/23 History insulin pump syringe 3 mL 10/04/23 12/01/23 History (Extended [place]) levothyroxine 50 mcg tablet 50 mcg PO DAILY #90 tabs 10/22/23 12/01/23 Rx metoprolol succinate 50 mg 50 mg PO DAILY 10/22/23 12/01/23 History tablet,extended release 24 hr omeprazole 40 mg capsule,delayed 40 mg PO BID #60 caps 10/22/23 12/01/23 Rx release zolpidem 5 mg tablet (Ambien) 5 mg PO BEDTIME PRN Insomnia 11/05/23 12/01/23 History hydroxyzine HCl 10 mg tablet 10 mg PO TID PRN anxiety #84 tabs 11/08/23 12/01/23 Rx insulin regular human 100 unit/mL 9 unit SUBCUT ACHS 11/15/23 12/02/23 History injection solution (Humulin R Regular U-100 Insulin) lorazepam 1 mg tablet 1 mg PO BID PRN nausea and 11/15/23 12/01/23 Rx vomiting #30 tabs paroxetine HCl 10 mg tablet 10 mg PO DAILY #30 tabs 11/15/23 12/01/23 Rx sucralfate 1 gram tablet (Carafate) 1 g PO BID #60 tabs 11/15/23 12/01/23 Rx promethazine 25 mg rectal 25 mg [place] Q6H PRN nausea and 11/27/23 12/01/23 Rx suppository vomiting #12 ea gabapentin 300 mg capsule 300 mg PO BID 90 days #180 caps 12/06/23 Rx metoclopramide HCl 5 mg tablet 5 mg PO AC 30 days #90 tabs 12/06/23 Rx Allergies Allergy/AdvReac Type Severity Reaction Status Date / Time aspirin [ASPIRIN] Allergy Unknown MAKES ME Verified 12/16/23 10:45 GO DEAF hydrocodone [HYDROCODONE] AdvReac Intermediate VOMITING Verified 12/16/23 10:45 ibuprofen [IBUPROFEN] AdvReac Intermediate HURTS Verified 12/16/23 10:45 KIDNEYS Review of Systems Review of Systems Narrative: All other systems reviewed with the patient and are negative unless otherwise stated. Exam Vital Signs (past 8 hours): - 12/16/23 10:35 12/16/23 10:41 12/16/23 11:00 Temperature 97.7 F Pulse Rate 120 H 235 H 106 H Respiratory Rate 24 25 H Blood Pressure 111/73 Pulse Oximetry 99 100 100 Oxygen Delivery Method Room Air 12/16/23 11:27 12/16/23 11:27 12/16/23 11:30 Temperature Pulse Rate 118 H 103 H Respiratory Rate 19 Blood Pressure 97/67 Pulse Oximetry 98 98 Oxygen Delivery Method 12/16/23 11:30 12/16/23 12:00 12/16/23 12:00 Temperature Pulse Rate 96 H Respiratory Rate 13 Blood Pressure 147/99 H 129/76 Pulse Oximetry 96 Oxygen Delivery Method 12/16/23 12:30 12/16/23 12:30 12/16/23 13:00 Temperature Pulse Rate 109 H Respiratory Rate Blood Pressure 182/120 H 162/100 H Pulse Oximetry 99 Oxygen Delivery Method 12/16/23 13:00 12/16/23 13:44 12/16/23 13:50 Temperature Pulse Rate 97 H 106 H Respiratory Rate 20 Blood Pressure Pulse Oximetry 99 99 Oxygen Delivery Method Room Air 12/16/23 14:00 12/16/23 14:30 12/16/23 15:00 Temperature Pulse Rate 104 H 95 H 88 Respiratory Rate Blood Pressure Pulse Oximetry 99 96 97 Oxygen Delivery Method 12/16/23 17:44 Temperature Pulse Rate Respiratory Rate Blood Pressure Pulse Oximetry 100 Oxygen Delivery Method Room Air Oxygen Delivery Method Room Air Narrative Exam Narrative: NAD, alert and oriented. Fluent speech. Soft-spoken, chronically ill. Lungs are clear, normal rate and effort. Heart is regular, no murmur gallop or rub. Abdomen is soft, non distended. Extremities are free of edema. Objective Labs 12/16/23 11:05 12/16/23 11:05 Labs: Laboratory Results - last 24 hr 12/16/23 12/16/23 11:05 11:13 WBC 21.5 H RBC 5.04 Hgb 11.8 L Hct 36.9 L MCV 73.2 L MCH 23.5 L MCHC 32.1 RDW 16.7 H Plt Count 416 H Neut % (Auto) 87.9 H Lymph % (Auto) 7.8 L [place] % (Auto) 4.2 Eos % (Auto) 0.0 L Baso % (Auto) 0.1 Neut # (Auto) 49564 H Lymph # (Auto) 1700 [place] # (Auto) 900 Eos # (Auto) 0 Baso # (Auto) 0 VBG pH 7.75 H VBG pO2 61 H VBG HCO3 19 L VBG Total CO2 18 L VBG O2 Saturation 97 H VBG Base Excess 2.7 Sodium 133 L Potassium 4.3 Chloride 93 L Carbon Dioxide 14 L BUN 26 H Creatinine 2.14 H Estimated GFR 41 L BUN/Creatinine Ratio 12.1 Glucose 363 H Calcium 9.6 Total Bilirubin 1.4 H AST 24 ALT 40 Alkaline Phosphatase 118 Total Protein 7.9 Albumin 4.8 Globulin 3.1 Albumin/Globulin Ratio 1.5 Lipase 34 Ketones 5.50 H Assessment & Plan Assessment & Plan narrative: # acute intractable nausea vomiting with suspected hematemesis, likely gastroparesis -improved Hg from prior values, continue IV PPI, monitor Hg -okay to continue CLD -scheduled reglan worked well last admission, resume when tolerating diet. prn for now. # SHAN -Cr 2.14, continue treatment of DKA with IV fluids -monitor with bmp # type 1 diabetes with DKA -DKA protocol ordered, continue insulin infusion per protocol -resume basal bolus insulin when gap closed and bicarb improved. -bmp q4 while on drip -ICU level care. # bipolar disorder # HTN - hold home medications for now unless hypertensive. # hypothyroidism -continue synthroid once off NPO Code status is full code. DVT prophylaxis with SCDs. Proxy is britni Carson. I have utilized all available immediate resources to obtain, update, or review the patient's current medications. Dispo: patient admitted under ICU status. Anticipate discharge home 1-2 days. Additional history obtained via discussions with the ER provider. These discussions contributed to the creation of the above assessment and plan. I have reviewed patient's presenting documentation, labs, and imaging personally. I spent 35 minutes providing critical care management this patient. This excludes time spent in performing separately billed procedures. Time-Based Coding :: [TOTAL MINUTES] spent with patient and on the chart (including review of chart, obtaining history, exam, reviewing outside data, placing orders, documenting exam and treatment plan, and counseling patient) on [DATE].
--- NOTE | 2023-12-16 18:36 | DI.RAD.S_ITS ---
PROCEDURE: XR CHEST 1V INDICATIONS: possible sepsis TECHNIQUE: One view of the chest was acquired. COMPARISON: [facility], [place], XR CHEST 1V, 11/27/2023, 7:36. [facility], [place], XR CHEST 1V, 10/09/2018, 1:54. FINDINGS: Surgical changes and devices: None. Lungs and pleura: No dense consolidation or pleural effusions. Mediastinum: Normal heart size Bones and chest wall: Unremarkable IMPRESSION: No acute radiographic abnormality on this single view study. Dictated by: Obdulio Hua M.D. on 12/16/2023 at 20:25 Approved by: Obdulio Hua M.D. on 12/16/2023 at 20:26
[2023-12-16 21:36] LABS: BUN Creatinine Ratio 14.8 (6-22); Blood Urea Nitrogen 28 mg/dL (9-20); Calcium 8.4 mg/dL (8.4-10.2); Carbon Dioxide 23 mmol/L (22-32); Chloride 98 mmol/L (98-107); Estimated Glomerular Filt Rate 48 mL/min (>60); Glucose 179 mg/dL (70-100); HEMOLYSIS 23 (0-50); Potassium 4.4 mmol/L (3.4-5.1); Sodium 130 mmol/L (137-145)
[2023-12-17] VITALS (36 sets, daily range): BP systolic 104–139; BP diastolic 59–89; PULSE 76–101; RESP 16–18; TEMP 36.7–37.3; O2SAT 96–99
[2023-12-17] MEDS: HYDROMORPHONE 1 MG INJ IV ×6 (02:34→23:38)
[2023-12-17] MEDS: METOCLOPRAMIDE 10 MG/2 ML INJ IV ×3 (04:32→23:38)
[2023-12-17 05:53] LABS: Add Manual Diff / Slide Review NO; Basophils Absolute Auto 0 /uL (0-100); Basophils Percent Auto 0.3 % (0-2); Eosinophils Absolute Auto 0 /uL (0-450); Eosinophils Percent Auto 0.4 % (2-4); Hemoglobin 9.2 g/dL (13.5-17.5); Lymphocytes Absolute Auto 1500 /uL (1100-4500); Lymphocytes Percent Auto 11.8 % (25-40); Mean Corpuscular HGB Conc 31.6 % (30-36); Mean Corpuscular Hemoglobin 23.2 PG (26-34); Mean Corpuscular Volume 73.4 fL (80-100); Monocytes Absolute Auto 800 /uL (0-900); Monocytes Percent Auto 6.6 % (3-14); Neutrophils Absolute Auto 10100 /uL (1500-7000); Neutrophils Percent Auto 80.9 % (50-75); Platelet Count 264 X10^3/uL (150-400); Red Blood Cell Count 3.95 X10^6/uL (4.5-5.9); Red Cell Distribution Width 16.3 % (11.6-14.8); White Blood Cell Count 12.4 X10^3/uL (4.5-11.0)
[2023-12-17 05:56] LABS: Alanine Aminotransferase 16 IU/L (<50); Albumin 3.3 g/dL (3.5-5.0); Albumin Globulin Ratio 1.3 (1.0-2.8); Alkaline Phosphatase 64 U/L (38-126); Aspartate Aminotransferase 17 IU/L (17-59); BUN Creatinine Ratio 12.9 (6-22); Bilirubin Total 0.7 mg/dL (0.2-1.3); Blood Urea Nitrogen 18 mg/dL (9-20); Calcium 8.1 mg/dL (8.4-10.2); Carbon Dioxide 27 mmol/L (22-32); Chloride 95 mmol/L (98-107); Estimated Glomerular Filt Rate > 60 mL/min (>60); Globulin 2.5 g/dL (1.7-4.1); Glucose 148 mg/dL (70-100); HEMOLYSIS < 15 (0-50); Magnesium 1.7 mg/dL (1.6-2.3); Potassium 3.1 mmol/L (3.4-5.1); Sodium 130 mmol/L (137-145); Total Protein 5.8 g/dL (6.3-8.2)
[2023-12-17] MEDS: ONDANSETRON 4 MG/2 ML INJ IV ×2 (06:37→19:37)
[2023-12-17] MEDS: INSULIN GLARGINE 100 UNIT/ML 3ML PEN 20 UNIT SUBCUT (07:43)
--- NOTE | 2023-12-17 08:13 | PM.PN.1 ---
Subjective Subjective Interval history: Admitted with DKA. S: He feels better, still nauseated. Some throat pain. He was concerned about esophagitis or an esophageal ulcer. No vomiting, or hematemesis. Exam Vital Signs (past 8 hours): - 12/17/23 01:00 12/17/23 04:00 12/17/23 05:00 Temperature 98.8 F Pulse Rate 82 Respiratory Rate 16 Blood Pressure 109/70 Pulse Oximetry 98 97 98 Oxygen Delivery Method Room Air Room Air Oxygen Flow Rate 0 0 0 Oxygen Delivery Method Room Air Oxygen Flow Rate 0 Narrative Exam Narrative: NAD, alert and oriented. Fluent speech. Chronically ill in appearance. Lungs are clear, normal rate and effort. Heart is regular, no murmur gallop or rub. Abdomen is soft, non distended. Extremities are free of edema. Objective Labs 12/17/23 05:00 12/17/23 05:00 Labs: Laboratory Results - last 24 hr 12/16/23 12/16/23 12/16/23 11:05 11:13 18:14 WBC 21.5 H RBC 5.04 Hgb 11.8 L Hct 36.9 L MCV 73.2 L MCH 23.5 L MCHC 32.1 RDW 16.7 H Plt Count 416 H Neut % (Auto) 87.9 H Lymph % (Auto) 7.8 L [place] % (Auto) 4.2 Eos % (Auto) 0.0 L Baso % (Auto) 0.1 Neut # (Auto) 47229 H Lymph # (Auto) 1700 [place] # (Auto) 900 Eos # (Auto) 0 Baso # (Auto) 0 VBG pH 7.75 H VBG pO2 61 H VBG HCO3 19 L VBG Total CO2 18 L VBG O2 Saturation 97 H VBG Base Excess 2.7 Sodium 133 L 130 L Potassium 4.3 4.4 Chloride 93 L 98 Carbon Dioxide 14 L 23 BUN 26 H 28 H Creatinine 2.14 H 1.89 H Estimated GFR 41 L 48 L BUN/Creatinine Ratio 12.1 14.8 Glucose 363 H 179 H D Calcium 9.6 8.4 Magnesium Total Bilirubin 1.4 H AST 24 ALT 40 Alkaline Phosphatase 118 Total Protein 7.9 Albumin 4.8 Globulin 3.1 Albumin/Globulin Ratio 1.5 Lipase 34 Ketones 5.50 H 12/17/23 05:00 WBC 12.4 H RBC 3.95 L Hgb 9.2 L Hct 29.0 L MCV 73.4 L MCH 23.2 L MCHC 31.6 RDW 16.3 H Plt Count 264 Neut % (Auto) 80.9 H Lymph % (Auto) 11.8 L [place] % (Auto) 6.6 Eos % (Auto) 0.4 L Baso % (Auto) 0.3 Neut # (Auto) 58811 H Lymph # (Auto) 1500 [place] # (Auto) 800 Eos # (Auto) 0 Baso # (Auto) 0 VBG pH VBG pO2 VBG HCO3 VBG Total CO2 VBG O2 Saturation VBG Base Excess Sodium 130 L Potassium 3.1 L D Chloride 95 L Carbon Dioxide 27 BUN 18 Creatinine 1.40 H Estimated GFR > 60 BUN/Creatinine Ratio 12.9 Glucose 148 H Calcium 8.1 L Magnesium 1.7 Total Bilirubin 0.7 AST 17 ALT 16 Alkaline Phosphatase 64 D Total Protein 5.8 L Albumin 3.3 L Globulin 2.5 Albumin/Globulin Ratio 1.3 Lipase Ketones PFSH Medical History Generalized anxiety disorder Compression fracture Chronic lower back pain HTN (hypertension) Hypothyroidism Marijuana use History of MRSA infection History of pneumonia Blurry vision, bilateral Diabetic neuropathy Bipolar disorder with depression Nausea and vomiting Diabetes type 1, uncontrolled Diabetic gastroparesis Surgical History No pertinent past surgical history Family History Mother No known health problems Father No known health problems Social History household members: family Smoking Status: Former smoker alcohol intake: current Assessment & Plan Assessment & Plan narrative: # acute intractable nausea vomiting with suspected hematemesis, likely gastroparesis, present on admission and active. -improved Hg from prior values, continue IV PPI, monitor Hg -okay to continue CLD -scheduled reglan worked well last admission, resume when tolerating diet. prn for now. # SHAN, present on admission and improving. -Cr 2.14, continue treatment of DKA with IV fluids -monitor with bmp # type 1 diabetes with DKA, improving and we will transition to subcutaneous insulin today. -DKA protocol ordered, continue insulin infusion per protocol # bipolar disorder, stable # HTN, stable - hold home medications for now unless hypertensive. # hypothyroidism, stable -continue synthroid once off NPO Code status is full code. DVT prophylaxis with SCDs. Proxy is britni Carson. HANS: 12/18, home. Dispo: patient admitted under ICU status. Anticipate discharge home 1-2 days. Time-Based Coding :: [TOTAL MINUTES] spent with patient and on the chart (including review of chart, obtaining history, exam, reviewing outside data, placing orders, documenting exam and treatment plan, and counseling patient) on [DATE].
[2023-12-17] MEDS: LIDOCAINE 5% PATCH 1 EACH TOP (09:15)
[2023-12-17] MEDS: MAGNESIUM CHLORIDE 64 MG TABLET 128 MG PO (09:15)
[2023-12-17] MEDS: POTASSIUM CHLORIDE 20 MEQ TAB 40 MEQ PO ×2 (09:15→13:45)
--- NOTE | 2023-12-17 13:43 | DIET.CONS ---
Dietary Consultation Note Admission Date: 12/16/2023 12:46 Assessment: 33 y M admitted with intractable N/V and T1Dm with DKA. RD screened for low BMI. Met w/ pt at bedside to reschedule appt with consumer insights specialist. Pt reports insulin pump is working but has no CGM. Open to rescheduling appt w/ [facility]. Per EMR- pt weight dropped since last admission. Reports was eating normally after last admission until 2 days before this re-admit and hadn't been able to tolerate food without emesis. Pt unsure about any recent weight loss since most recent admission. Pt curled up, head under blanket, NFPE and obtaining updated weight postponed. Ht: 177.8 cm Wt: 54.885 kg BMI: 17.3 UBW: 11/15/23 was 79.435 kg (-30% weight loss in 1 month, severe - updated weight needed to confirm) Last BM: () MNA: Jimbo Score: 19 Diet: 12/16/23 Dinner Clear Liquid Diet Diet Modifications: Labs: RBC 3.95 X10^6/uL (4.5-5.9) L 12/17/23 05:00 Hgb 9.2 g/dL (13.5-17.5) L 12/17/23 05:00 Hct 29.0 % (41-53) L 12/17/23 05:00 Creatinine 1.40 mg/dL (0.66-1.25) H 12/17/23 05:00 Nutrition Diagnosis: Altered nutrition related lab values (glucose, A1c%) r/t endocrine dysfunction aeb DKA, A1c 8.0% on 11/04/23 Interventions: 1. Rescheduled appt with consumer insights specialist gave pt reminder card and confirmed pt receives portal message reminders 2. Will f/u for po intakes as diet advances Electronically Signed by: Julia Márquez 12/17/23 13:43 Clinical Dietitian [address] [address]
--- NOTE | 2023-12-17 16:00 | CM.DANOTE ---
Patient is a 33 yo male who was admitted on 12/16/23 for Uncontrolled Diabetes. Pt has DESTIN GARCIA and BIRDIE and his PCP is Dr. James Jung. EMR was reviewed. Per MD, pt with diabetic pump issues and admitted for management and tx. coding educator rescheduled with pt for f/u after discharge and met with him bedside. SW called [employer] and left a msg with Dominic [phone] inquiring if pt's [employer] application was submitted and in process yet. SW called [facility] Industrial Education Instructor office and pt is not on their schedule to establish with Industrial Education Instructor yet and their waitlist is out into June 2024 at this time. Due to triage needs, SAJAN unable to meet bedside with pt today but will follow up with him in the AM. Shirley Anna,; GORDON
[2023-12-18] VITALS (17 sets, daily range): BP systolic 123–176; BP diastolic 75–112; PULSE 87–106; RESP 16–18; TEMP 36.5–37.2; O2SAT 96–99
[2023-12-18] MEDS: HYDROMORPHONE 1 MG INJ IV (04:39)
[2023-12-18] MEDS: ONDANSETRON 4 MG/2 ML INJ IV (04:39)
[2023-12-18 05:30] LABS: Add Manual Diff / Slide Review NO; Basophils Absolute Auto 0 /uL (0-100); Basophils Percent Auto 0.4 % (0-2); Eosinophils Absolute Auto 100 /uL (0-450); Eosinophils Percent Auto 0.6 % (2-4); Hematocrit 30.8 % (41-53); Hemoglobin 9.9 g/dL (13.5-17.5); Lymphocytes Absolute Auto 2200 /uL (1100-4500); Mean Corpuscular HGB Conc 32.3 % (30-36); Mean Corpuscular Hemoglobin 23.9 PG (26-34); Monocytes Absolute Auto 900 /uL (0-900); Monocytes Percent Auto 7.8 % (3-14); Neutrophils Absolute Auto 7900 /uL (1500-7000); Neutrophils Percent Auto 71.2 % (50-75); Platelet Count 305 X10^3/uL (150-400); Red Blood Cell Count 4.15 X10^6/uL (4.5-5.9); Red Cell Distribution Width 16.4 % (11.6-14.8); White Blood Cell Count 11.1 X10^3/uL (4.5-11.0)
[2023-12-18 05:35] LABS: Alanine Aminotransferase 15 IU/L (<50); Albumin 3.6 g/dL (3.5-5.0); Albumin Globulin Ratio 1.3 (1.0-2.8); Alkaline Phosphatase 92 U/L (38-126); Aspartate Aminotransferase 19 IU/L (17-59); Bilirubin Total 0.6 mg/dL (0.2-1.3); Blood Urea Nitrogen 9 mg/dL (9-20); Calcium 8.6 mg/dL (8.4-10.2); Carbon Dioxide 24 mmol/L (22-32); Chloride 96 mmol/L (98-107); Estimated Glomerular Filt Rate > 60 mL/min (>60); Globulin 2.7 g/dL (1.7-4.1); Glucose 200 mg/dL (70-100); HEMOLYSIS < 15 (0-50); Magnesium 1.8 mg/dL (1.6-2.3); Potassium 4.2 mmol/L (3.4-5.1); Sodium 128 mmol/L (137-145); Total Protein 6.3 g/dL (6.3-8.2)
--- NOTE | 2023-12-18 07:38 | P.PN_ITS ---
Subjective Subjective Interval history: Interval history: Admitted with DKA. S: Nausea is a little bit better. He feels that a lot of his issue related to gastroparesis and that omeprazole may not be the best medication. He has less nausea today and less abdominal pain. Exam Vital Signs (past 8 hours): - 12/18/23 01:00 12/18/23 04:00 12/18/23 05:00 Temperature 97.7 F Pulse Rate 106 H Respiratory Rate 18 Blood Pressure 167/91 H Pulse Oximetry 96 99 96 Oxygen Delivery Method Room Air Room Air Oxygen Flow Rate 0 Oxygen Delivery Method Room Air Oxygen Flow Rate 0 Narrative Exam Narrative: NAD, alert and oriented. Fluent speech. Soft spoken, chronically ill. Lungs are clear, normal rate and effort. Heart is regular, no murmur gallop or rub. Abdomen is soft, non distended. Extremities are free of edema. Objective Labs 12/19/23 04:30 12/19/23 04:30 Labs: Laboratory Results - last 24 hr 12/18/23 04:40 WBC 11.1 H RBC 4.15 L Hgb 9.9 L Hct 30.8 L MCV 74.0 L MCH 23.9 L MCHC 32.3 RDW 16.4 H Plt Count 305 Neut % (Auto) 71.2 Lymph % (Auto) 20.0 L Logan % (Auto) 7.8 Eos % (Auto) 0.6 L Baso % (Auto) 0.4 Neut # (Auto) 7900 H Lymph # (Auto) 2200 Logan # (Auto) 900 Eos # (Auto) 100 Baso # (Auto) 0 Sodium 128 L Potassium 4.2 Chloride 96 L Carbon Dioxide 24 BUN 9 Creatinine 1.12 Estimated GFR > 60 BUN/Creatinine Ratio 8.0 Glucose 200 H Calcium 8.6 Magnesium 1.8 Total Bilirubin 0.6 AST 19 ALT 15 Alkaline Phosphatase 92 Total Protein 6.3 Albumin 3.6 Globulin 2.7 Albumin/Globulin Ratio 1.3 [facility] Medical History Generalized anxiety disorder Compression fracture Chronic lower back pain HTN (hypertension) Hypothyroidism Marijuana use History of MRSA infection History of pneumonia Blurry vision, bilateral Diabetic neuropathy Bipolar disorder with depression Nausea and vomiting Diabetes type 1, uncontrolled Diabetic gastroparesis Surgical History No pertinent past surgical history Family History Mother No known health problems Father No known health problems Social History household members: family Smoking Status: Former smoker alcohol intake: current Assessment & Plan Assessment & Plan narrative: 1. Acute intractable nausea vomiting with suspected hematemesis, likely gastroparesis, present on admission and improving. -improved Hg from prior values, continue IV PPI, monitor Hg 2. SHAN, present on admission and resolved. -Cr 2.14, continue treatment of DKA with IV fluids -monitor with bmp 3. Type 1 diabetes with DKA, present on admission and resolved. -DKA protocol ordered, continue insulin infusion per protocol 4. Bipolar disorder, stable 5. HTN, stable - hold home medications for now unless hypertensive. 6. Hypothyroidism, stable -continue synthroid once off NPO PLAN: -convert to PO meds -advance diet Code status is full code. DVT prophylaxis with SCDs. Proxy is britni Carson. HANS: 12/18, home. Dispo: Anticipate discharge home 1-2 days. Time-Based Coding :: [TOTAL MINUTES] spent with patient and on the chart (including review of chart, obtaining history, exam, reviewing outside data, placing orders, documenting exam and treatment plan, and counseling patient) on [DATE].
[2023-12-18] MEDS: INSULIN GLARGINE 100 UNIT/ML 3ML PEN 20 UNIT SUBCUT (08:15)
[2023-12-18] MEDS: INSULIN LISPRO 100 UNIT/ML 3ML VIAL SUBCUT ×2 (08:16→12:02)
[2023-12-18] MEDS: LIDOCAINE 5% PATCH 1 EACH TOP (08:17)
[2023-12-18] MEDS: METOCLOPRAMIDE 10 MG/2 ML INJ IV (08:22)
[2023-12-18] MEDS: OXYCODONE IR 5 MG TABLET PO ×4 (09:23→21:53)
[2023-12-18] MEDS: ONDANSETRON 4 MG ODT SL (09:25)
[2023-12-18] MEDS: METOCLOPRAMIDE HCL 5 MG TABLET 10 MG PO ×3 (12:02→21:05)
--- NOTE | 2023-12-18 16:59 | CM.DANOTE ---
B DCP Assessment Note pt is a 33yo M with frequent ED visits/admissions over the past year for uncontrolled diabetes. PCP Erich Arevalo and Medicaid LAPEL PADDER BLINDSTITCH reviewed EMR. LAPEL PADDER BLINDSTITCH unable to meet with pt today due to triaging needs. Per provider in morning rounds, another day or so until medically stable. Per RN, pt has not been taking any of his psych meds. Per provider in morning rounds, consider some type of pain contract, concerns about pt's access to pain meds as a factor in readmission rate? Per chart review, [facility] in the past could not accept due to him needing too high of care. unable to coordinate with [facility] office about status of elia due to weekend. CM team will investigate who pump company is to see if company can do more to assist the pump issues he has. Plan: Anticipate that patient will discharge home with family once again when medically cleared. Patient appears to lack the ability to manage his chronic diseases/ADLs as evidenced by frequent readmission rate. CM team will coordinate with TCM team/[facility] as able to best prevent readmission. GORDON Sumner Discharge Planning/Care Management CM Discharge Assessment Start: 12/18/23 16:56 Freq: Status: Active Protocol: Document 12/18/23 16:57 (Rec: 12/18/23 16:59 [id number]) Discharge Planning Assessment Assigned Vice President Of Human Resources GORDON Jones DPOA/Assigned Designee Name Meghan grandmother Contact Information [phone] Advance Directives? No Advance Directives on File No History Provided By Patient,Medical Record Has Patient been admitted in last 30 Yes days? Comment multiple readmissions, 19 ED visits in past month. see chart review for more. Prior Living Arrangements House Household Members family Type of transporation used prior to Relies on Others admit Independent with ADL's No Is patient alert and oriented? Yes Needs Assistance With Managing Medications,Home Chores / Shopping Comment Patient has left foot drop which he wears a brace for. Comment Patient will likely discharge home with outpatient follow up as he has done in the past. [facility] will not admit patient on to their services, reportedly they feel patient requires higher level of care. Discharge Plan Home Transportation Arrangement Family to provide transport vs BIRDIE transport Referrals Initiated None needed Additional Comment Patient would benefit from [facility] caregiver in the home Review Status In Process Please Provide Date Initial DC 12/18/23 Assessment Was Performed Next Review Type Continued Stay Review
[2023-12-18] MEDS: PANTOPRAZOLE DR 40 MG TABLET PO (21:05)
[2023-12-18] MEDS: ZOLPIDEM 5 MG TABLET PO (21:53)
[2023-12-19] VITALS (10 sets, daily range): BP systolic 137–180; BP diastolic 84–116; PULSE 86–110; RESP 16–18; TEMP 36.6–36.9; O2SAT 95–100
[2023-12-19] MEDS: OXYCODONE IR 5 MG TABLET PO ×5 (04:20→21:26)
[2023-12-19 05:17] LABS: Add Manual Diff / Slide Review NO; Basophils Absolute Auto 100 /uL (0-100); Basophils Percent Auto 1.1 % (0-2); Eosinophils Absolute Auto 100 /uL (0-450); Eosinophils Percent Auto 1.3 % (2-4); Hematocrit 33.9 % (41-53); Hemoglobin 10.7 g/dL (13.5-17.5); Lymphocytes Absolute Auto 1900 /uL (1100-4500); Lymphocytes Percent Auto 27.1 % (25-40); Mean Corpuscular HGB Conc 31.7 % (30-36); Mean Corpuscular Hemoglobin 23.7 PG (26-34); Mean Corpuscular Volume 74.8 fL (80-100); Monocytes Absolute Auto 600 /uL (0-900); Neutrophils Absolute Auto 4400 /uL (1500-7000); Neutrophils Percent Auto 61.5 % (50-75); Platelet Count 315 X10^3/uL (150-400); Red Blood Cell Count 4.53 X10^6/uL (4.5-5.9); Red Cell Distribution Width 16.8 % (11.6-14.8); White Blood Cell Count 7.1 X10^3/uL (4.5-11.0)
[2023-12-19 05:20] LABS: Alanine Aminotransferase 13 IU/L (<50); Albumin 3.7 g/dL (3.5-5.0); Albumin Globulin Ratio 1.2 (1.0-2.8); Alkaline Phosphatase 93 U/L (38-126); Aspartate Aminotransferase 18 IU/L (17-59); BUN Creatinine Ratio 7.8 (6-22); Bilirubin Total 0.7 mg/dL (0.2-1.3); Blood Urea Nitrogen 9 mg/dL (9-20); Carbon Dioxide 26 mmol/L (22-32); Chloride 96 mmol/L (98-107); Estimated Glomerular Filt Rate > 60 mL/min (>60); Globulin 3.2 g/dL (1.7-4.1); Glucose 171 mg/dL (70-100); HEMOLYSIS < 15 (0-50); Potassium 4.2 mmol/L (3.4-5.1); Sodium 129 mmol/L (137-145); Total Protein 6.9 g/dL (6.3-8.2)
[2023-12-19] MEDS: METOCLOPRAMIDE HCL 5 MG TABLET 10 MG PO ×4 (08:23→21:26)
[2023-12-19] MEDS: LIDOCAINE 5% PATCH 1 EACH TOP (08:23)
[2023-12-19] MEDS: INSULIN LISPRO 100 UNIT/ML 3ML VIAL SUBCUT ×3 (08:24→17:10)
[2023-12-19] MEDS: INSULIN GLARGINE 100 UNIT/ML 3ML PEN 20 UNIT SUBCUT (08:25)
--- NOTE | 2023-12-19 09:24 | PM.PN.1 ---
Subjective Subjective Interval history: Was nausea when trying to eat breakfast. Is having some reflux would like to try GI cocktail. Blood sugars are better controlled. No diarrhea. Less abdominal pain. Exam Vital Signs (past 8 hours): - 12/19/23 04:00 Temperature 98.5 F Pulse Rate 110 H Respiratory Rate 18 Blood Pressure 180/116 H Pulse Oximetry 99 Oxygen Flow Rate 0 Oxygen Delivery Method Room Air Oxygen Flow Rate 0 Narrative Exam Narrative: NAD, alert and oriented. Fluent speech. Flat affect, chronically ill in appearance. Lungs are clear, normal rate and effort. Heart is regular, no murmur gallop or rub. Abdomen is soft, non distended. Extremities are free of edema. Objective Labs 12/19/23 04:30 12/19/23 04:30 Labs: Laboratory Results - last 24 hr 12/19/23 04:30 WBC 7.1 RBC 4.53 Hgb 10.7 L Hct 33.9 L MCV 74.8 L MCH 23.7 L MCHC 31.7 RDW 16.8 H Plt Count 315 Neut % (Auto) 61.5 Lymph % (Auto) 27.1 [place] % (Auto) 9.0 Eos % (Auto) 1.3 L Baso % (Auto) 1.1 Neut # (Auto) 4400 Lymph # (Auto) 1900 [place] # (Auto) 600 Eos # (Auto) 100 Baso # (Auto) 100 Sodium 129 L Potassium 4.2 Chloride 96 L Carbon Dioxide 26 BUN 9 Creatinine 1.15 Estimated GFR > 60 BUN/Creatinine Ratio 7.8 Glucose 171 H Calcium 9.0 Magnesium 2.0 Total Bilirubin 0.7 AST 18 ALT 13 Alkaline Phosphatase 93 Total Protein 6.9 Albumin 3.7 Globulin 3.2 Albumin/Globulin Ratio 1.2 [facility] Medical History Generalized anxiety disorder Compression fracture Chronic lower back pain HTN (hypertension) Hypothyroidism Marijuana use History of MRSA infection History of pneumonia Blurry vision, bilateral Diabetic neuropathy Bipolar disorder with depression Nausea and vomiting Diabetes type 1, uncontrolled Diabetic gastroparesis Surgical History No pertinent past surgical history Family History Mother No known health problems Father No known health problems Social History household members: family Smoking Status: Former smoker alcohol intake: current Assessment & Plan Assessment & Plan narrative: 1. Acute intractable nausea vomiting with suspected hematemesis, likely gastroparesis, present on admission and improving. -improved Hg from prior values, continue IV PPI, monitor Hg 2. SHAN, present on admission and resolved. -Cr 2.14, continue treatment of DKA with IV fluids -monitor with bmp 3. Type 1 diabetes with DKA, present on admission and resolved. -DKA protocol ordered, continue insulin infusion per protocol 4. Bipolar disorder, stable 5. HTN, stable - hold home medications for now unless hypertensive. 6. Hypothyroidism, stable -continue synthroid once off NPO PLAN: -converted to PO meds 12/17 -advance diet, not really eating sufficiently. -GI cocktail -encourage ambulation Code status is full code. DVT prophylaxis with SCDs. Proxy is britni Carson. HANS: 12/19, home. Dispo: Anticipate discharge home 1-2 days. Time-Based Coding :: [TOTAL MINUTES] spent with patient and on the chart (including review of chart, obtaining history, exam, reviewing outside data, placing orders, documenting exam and treatment plan, and counseling patient) on [DATE].
--- NOTE | 2023-12-19 11:44 | PC.NURSE ---
Medication administration mag hydrox/aluminum/simeth meera 20 mL lidocaine viscous 2% 15 mL administered PO one time dose. Unable to scan, pharmacy aware, had compounded for administration by pharmacy.
[2023-12-19] MEDS: ACETAMINOPHEN 325 MG TABLET 650 MG PO (17:08)
[2023-12-19] MEDS: PANTOPRAZOLE DR 40 MG TABLET PO (21:26)
[2023-12-20] VITALS (7 sets, daily range): BP systolic 122–141; BP diastolic 78–102; PULSE 85–96; RESP 14–16; TEMP 36.6–36.7; O2SAT 96–99
[2023-12-20] MEDS: OXYCODONE IR 5 MG TABLET PO ×3 (02:51→11:20)
[2023-12-20] MEDS: PANTOPRAZOLE DR 40 MG TABLET PO (06:34)
[2023-12-20] MEDS: METOCLOPRAMIDE HCL 5 MG TABLET 10 MG PO ×2 (08:35→12:02)
[2023-12-20] MEDS: LIDOCAINE 5% PATCH 1 EACH TOP (08:37)
[2023-12-20] MEDS: INSULIN LISPRO 100 UNIT/ML 3ML VIAL SUBCUT ×2 (08:48→12:34)
[2023-12-20] MEDS: INSULIN GLARGINE 100 UNIT/ML 3ML PEN 20 UNIT SUBCUT (08:48)
[2023-12-20] MEDS: ACETAMINOPHEN 325 MG TABLET 650 MG PO (11:23)
--- NOTE | 2023-12-20 11:55 | CM.DPNOTE ---
Addendum entered by GORDON Sumner 12/20/23 14:56: Comprehensive meeting with provider, this WINDOW TINTER, lead WINDOW TINTER Mami, pt, and grandmother in room. Lengthy discussion. pt report lack of sensor connection to CSM to pump as main reason for readmissions and some concerns with insurance covering dexcon? WINDOW TINTER provided Mickey Templeton contact number ([phone]) to grandmother for insurance related concerns. Per grandmother, pt has edge trimmer mechanic appt 01/05/[address] [facility]. Grandmother strong advocate for getting pt reinstated with psych provider, pt in agreement to try. Paty at [facility] kindly agreed to change appt to tomorrow, 12/20 at 10:30am. WINDOW TINTER notified TCM team about pt's dc today, kindly arranged for pt to have f/u OP appt with PCP Erich 12/27 at 10:30am. gave information to pt and grandmother for psych and PCP. pt and grandmother in agreement to go to appts. P: home with grandmother support. psych f/u 12/[address] Mccracken. PCP f/u 12/[address] Jung. Production Reproduction Manager f/u 01/05/[address] Juarez. CM team will continue to follow as needed SL Original Note: DCP Note WINDOW TINTER reviewed EMR. Long discussion in morning rounds about assisting pt to reduce frequency of readmission. Oscar unclear if pt to dc today vs tomorrow. WINDOW TINTER spoke with mau Christianson (p [phone]). Meghan agreeable to come to hospital today for family group meeting to discuss barriers to preventing readmission. Meghan strongly believes that a big contributor is pt not being on his MH medications after moving here from [place]. Could not remember names of medications. Meghan will meet with us in room at 1300 today. WINDOW TINTER updated RN/provider/WINDOW TINTER lead Mami on 1300 mtg in room. WINDOW TINTER coordinated with TCM team. Agreeable to help with psychiatry referral from PCP and glucometer. WINDOW TINTER spoke with Paty from psychiatry. Set up SOC appt with Dr. Schuyler Mccracken 12/28/23 at 1pm. if pt discharges today, WINDOW TINTER will attempt to get earlier appt time. Paty confirmed they accept pt's insurance. WINDOW TINTER lvm with Mickey SMITH CM, [place] (ph#[phone]) to inquire about pump malfunction? WINDOW TINTER lvm with [place] [facility] office Dominic [phone] to inquire about status of [facility] application completed on last admission. WINDOW TINTER met with pt in room. Agreeable to meeting with provider/CMs/grandma at 1300. Agreeable to restarting psychiatry services, but just does not like feeling numb. pt reports that his pump/materials are through Dexcon but he's not connected to CGM? P: anticipate home with grandma when medically stable. DCP meeting with pt/grandma/provider/CM team pending. Close OP f/u with PCP/clinical document improvement educator/psychiatry recommended. GORDON Sumner
--- NOTE | 2023-12-20 13:29 | PM.DS.1 ---
History of Present Illness History of Present Illness Chief complaint: Vomiting Narrative: From H&P: 33 y/o with PMH of IDDM type 1, diabetic gastroparesis and previous hospitalizations related to DM complications, who presented with reported hematemesis. He reports his pump is working. He does not have a glucometer. His provider he states ordered this but he hasn't received it in 3 or 4 weeks. He denies cough, chest pain, shortness of breath. No dark stools reported. ER labs shows an elevated h/h from last admission. VBG with pH of 7.75, but on labs bicarb was 14 with an elevated anion gap and ketones of 5.5. I asked he be started on insulin infusion. He was admitted to the ICU for presumed DKA. Discharge Providers Provider Date of admission: 12/16/23 12:46 Discharge Date: 12/20/23 Primary care physician: James Jung DO Consults: None Discharge provider: Kiran Moore MD Summary Hospital Course Discharge Diagnosis: 1. Acute intractable nausea vomiting with suspected hematemesis, likely gastroparesis, present on admission and improving. 2. SHAN, present on admission and resolved. 3. Type 1 diabetes with DKA, present on admission and resolved. 4. Bipolar disorder, stable 5. HTN, stable 6. Hypothyroidism, stable Hospital Course: He was admitted with recurrent nausea, vomiting, and DKA. He was treated with an insulin drip and symptomatic medications for nausea and abdominal pain which is typical for his recurrent episodes. Ultimately he did improve was able to advance his diet. Due to his frequent readmissions we did request that his grandmother come in and we had a family conference with her and the patient. This included to social work instructor's where he talked about the difficulties of his recurrent admissions as well as brainstorming multiple ways to increase support and hopefully improve his health with his diabetes. He does have an endocrinology appointment at [facility] on the of this month, he also has a pending nutrition education appointment in early January. The patient has a glucometer arranged through his PCP's office which is ready to pick up driver on the day of discharge and he mental health appointment were tomorrow to further discuss his poorly responsive depression and anhedonia. Status at Discharge Cognitive/behavioral status at discharge: oriented Functional status at discharge: independent ambulation Overall status at discharge: patient is back to baseline Time Spent with Patient Time spent: Greater than 30 minutes Exam Vital Signs (past 8 hours): - 12/20/23 08:00 12/20/23 08:46 12/20/23 08:50 Temperature Pulse Rate Respiratory Rate Blood Pressure 134/102 H Pulse Oximetry 98 Oxygen Delivery Method Room Air 12/20/23 08:50 12/20/23 11:31 Temperature 98.0 F Pulse Rate 96 H Respiratory Rate 16 Blood Pressure 141/98 H Pulse Oximetry 99 Oxygen Delivery Method Oxygen Delivery Method Room Air Oxygen Flow Rate 0 Narrative Exam Narrative: No acute distress, fluent speech, flat affect. Lungs are clear with normal effort. Heart is regular Abdomen is soft and nontender No leg edema. Objective Imaging Chest x-ray: Radiologist's impression: No acute radiographic abnormality on this single view study. Labs 12/19/23 04:30 12/19/23 04:30 [facility] Medical History Generalized anxiety disorder Compression fracture Chronic lower back pain HTN (hypertension) Hypothyroidism Marijuana use History of MRSA infection History of pneumonia Blurry vision, bilateral Diabetic neuropathy Bipolar disorder with depression Nausea and vomiting Diabetes type 1, uncontrolled Diabetic gastroparesis Surgical History No pertinent past surgical history Family History Mother No known health problems Father No known health problems Social History household members: family Smoking Status: Former smoker alcohol intake: current Discharge Assessment & Plan Assessment and Plan Assessment: 1. Acute intractable nausea vomiting with suspected hematemesis, likely gastroparesis, present on admission and improving. 2. SHAN, present on admission and resolved. 3. Type 1 diabetes with DKA, present on admission and resolved. Plan of Treatment: After family conference he was discharged home with his grandmother. The next steps include 1. Mental health outpatient appointment tomorrow 2. PCP appointment with Dr. Jung within the next 2 weeks 3. tests superintendent a glucometer which is at the pharmacy today 4. Change PPI to Protonix at time of discharge per his request, he perceives that this works better. 5. [facility] endocrinology as scheduled on January 04. 6. Diabetic diet education session as scheduled in early January Discharge Plan Discharge Plan Patient Disposition: Home Provider Discharge Comment: stable for discharge home. We had a family conference with him in his grandmother and outlined plan for a mental health appointment tomorrow, PCP within the next week, he was an appointment with endocrinology at [facility] on the of this month. We also emphasized the importance of picking up his glucometer and attending his dietary information meeting which is scheduled for early January. We have recommended that his grandmother join as she does most of the cooking and appears to have limited knowledge of diabetic diet constraints. Discharge orders & Medications Prescriptions: New pantoprazole 40 mg Tablet,Delayed Release (Dr/Ec) 40 mg PO 0700,2100 Qty: 60 0RF Continued hydroxyzine HCl 10 mg tablet 10 mg PO TID PRN (Reason: anxiety) Qty: 84 0RF (DME) blood-glucose meter [Blood Glucose Monitoring] Kit See Rx Instructions .Route Qty: 1 0RF Rx Instructions: As directed metoprolol succinate 50 mg tablet extended release 24 hr 50 mg PO DAILY levothyroxine 50 mcg tablet 50 mcg PO DAILY Qty: 90 1RF Humulin R Regular U-100 Insuln 100 unit/mL solution 9 unit SUBCUT ACHS Patient Comments: [NO ORIGINAL SIG] Rx Instructions: via insulin pump .19 units per hour paroxetine HCl 10 mg tablet 10 mg PO DAILY Qty: 30 2RF sucralfate [Carafate] 1 gram tablet 1 g PO BID Qty: 60 1RF lorazepam 1 mg tablet 1 mg PO BID PRN (Reason: nausea and vomiting) Qty: 30 1RF diphenhydramine HCl 25 mg Tablet 25 mg PO BEDTIME PRN (Reason: Insomnia) (DME) Extended [place] 3 mL Misc MISCELLANEOUS Rx Instructions: patient uses insulin pump zolpidem [Ambien] 5 mg Tablet 5 mg PO BEDTIME PRN (Reason: Insomnia) promethazine 25 mg suppository 25 mg OR Q6H PRN (Reason: nausea and vomiting) Qty: 12 0RF metoclopramide HCl 5 mg Tablet 5 mg PO AC 30 Days Qty: 90 0RF gabapentin 300 mg Capsule 300 mg PO BID 90 Days Qty: 180 0RF Discontinued omeprazole 40 mg capsule,delayed release(DR/EC) 40 mg PO BID Qty: 60 3RF No Action (DME) Blood Glucose Test Strip See Rx Instructions .Route Qty: 50 0RF Rx Instructions: use with glucometer before meals and at bedtime (DME) lancets Misc See Rx Instructions .Route Qty: 100 0RF Rx Instructions: use to angelica finger before meals and at bedtime Follow up/Referrals: James Jung, [Primary Care Provider] - Skin/Wound/Dressing Care Report to your healthcare provider any signs of infection, such as:: chills, fever, increased pain and unusual drainage Visit Report/Discharge Packet Instructions: DI for Diabetic Ketoacidosis, Pantoprazole Stand Alone Forms: Patient Portal/API Discharge Data Primary Care Provider: James Jung
--- NOTE | 2023-12-21 09:02 | CM.DPC ---
DCP continued PRODUCTION ENGINEER received call back from [facility], states that pt's elia has been received and approved and pt is not in care yet. Assessment from [facility] pending. GORDON Sumner
== END 2023-12-20 14:33 | disposition home or self-care (01) | DRG 74 ==
LOC: ED 10:53 → AC 12:47 → ICU 13:42
PROVIDERS: Admitting Provider Internal Medicine; Emergency Provider Emergency Medicine; PCP Family Medicine; Referring Provider Emergency Medicine; Visit Provider Internal Medicine
DX: E10.43 Type 1 diabetes mellitus with diabetic autonomic (poly)neuropathy (principal); N17.9 Acute kidney failure, unspecified; E10.10 Type 1 diabetes mellitus with ketoacidosis without coma; K31.84 Gastroparesis; F31.9 Bipolar disorder, unspecified; I10 Essential (primary) hypertension; E03.9 Hypothyroidism, unspecified; F41.9 Anxiety disorder, unspecified; Z96.41 Presence of insulin pump (external) (internal); Z87.891 Personal history of nicotine dependence
CPT/HCPCS: 36415; 71045; 80048; 80053; 82009; 82805; 82962; 83690; 83735; 85025; 87040; 93005; 93010; 96361; 96365; 96367; 96368; 96375; 99284; 99285; J0134; J1171; J2405; J2470; J2543; J2765

== ENCOUNTER 2023-12-22 20:06 | Observation (INO) | payer OTHER, MEDICAID, SELFPAY ==
[2023-12-20 11:04] VITALS: BMI 17.3
[2023-12-22] VITALS (10 sets, daily range): BP systolic 123–182; BP diastolic 72–104; PULSE 94–118; RESP 18–29; TEMP 35.4; O2SAT 97–100; BMI 24.3; BMI 22.7
--- NOTE | 2023-12-22 20:41 | PC.NURSE ---
POC glucose was 475+ unable to read, RN notified.
[2023-12-22 21:13] LABS: Base Excess VBG -5.5 mmol/L (0-4); HCO3 VBG 16 mmol/L (24-28); Oxygen Saturation VBG 53 % (70-75); PCO2 VBG 21.4 mmHg (45-50); PO2 VBG 25 mmHg (35-45); Total CO2 VBG 15 mmol/L (24-29); pH VBG 7.48 (7.33-7.43)
[2023-12-22] MEDS: SODIUM CHLORIDE 0.9% 1,000 ML 1000 ML IV ×2 (21:15→22:21)
[2023-12-22 21:24] LABS: Add Manual Diff / Slide Review NO; Basophils Absolute Auto 0 /uL (0-100); Basophils Percent Auto 0.2 % (0-2); Eosinophils Absolute Auto 0 /uL (0-450); Hematocrit 35.4 % (41-53); Hemoglobin 11.3 g/dL (13.5-17.5); Lymphocytes Absolute Auto 1100 /uL (1100-4500); Lymphocytes Percent Auto 10.6 % (25-40); Mean Corpuscular HGB Conc 31.9 % (30-36); Mean Corpuscular Hemoglobin 23.8 PG (26-34); Mean Corpuscular Volume 74.7 fL (80-100); Monocytes Absolute Auto 700 /uL (0-900); Monocytes Percent Auto 6.7 % (3-14); Neutrophils Absolute Auto 8900 /uL (1500-7000); Neutrophils Percent Auto 82.5 % (50-75); Platelet Count 437 X10^3/uL (150-400); Red Blood Cell Count 4.74 X10^6/uL (4.5-5.9); Red Cell Distribution Width 17.2 % (11.6-14.8); White Blood Cell Count 10.8 X10^3/uL (4.5-11.0)
--- NOTE | 2023-12-22 21:24 | EKG_ITS ---
[address] [address] Test Date: 2023-12-22 Pat Name: Valentin Noble Department: Room: Gender: Male Surveillance Technician: ELIZABETH : 1990 Requested By: Order Number: [id number] Reading MD: Guy Plummer MD Measurements Intervals [place] Rate: 110 P: 47 VT: 152 QRS: -48 QRSD: 80 T: 57 QT: 342 QTc: 462 Interpretive Statements Sinus tachycardia Left anterior fascicular block Electronically Signed On 12-23-2023 7:31:28 PST by Guy Plummer MD
[2023-12-22 21:34] LABS: Alanine Aminotransferase 23 IU/L (<50); Albumin 4.3 g/dL (3.5-5.0); Albumin Globulin Ratio 1.4 (1.0-2.8); Alkaline Phosphatase 111 U/L (38-126); Aspartate Aminotransferase 25 IU/L (17-59); BUN Creatinine Ratio 15.1 (6-22); Bilirubin Total 1.1 mg/dL (0.2-1.3); Blood Urea Nitrogen 22 mg/dL (9-20); Calcium 9.5 mg/dL (8.4-10.2); Carbon Dioxide 13 mmol/L (22-32); Chloride 91 mmol/L (98-107); Estimated Glomerular Filt Rate > 60 mL/min (>60); HEMOLYSIS < 15 (0-50); Magnesium 2.1 mg/dL (1.6-2.3); Potassium 4.8 mmol/L (3.4-5.1); Sodium 129 mmol/L (137-145); Total Protein 7.3 g/dL (6.3-8.2)
[2023-12-22 21:35] LABS: Lactate (Lactic Acid) 3.5 mmol/L (0.7-2.1)
[2023-12-22 21:36] LABS: Glucose 499 mg/dL (70-100)
--- NOTE | 2023-12-22 21:53 | ED.NAVMDI ---
HPI - Nausea/Vomiting/Diarrhea General Chief complaint: Nausea/Vomiting/Diarrhea Stated complaint: cant stop vomiting 12 hours, sent by pcp Time Seen by Provider: 12/22/23 20:36 Source: patient Mode of arrival: Ambulatory History of Present Illness HPI Narrative: 33-year-old male with history of type 1 insulin-dependent diabetes, diabetic gastroparesis, frequent hospitalizations due to DKA and diabetic complications presents by private vehicle from home for vomiting. Of note, patient just discharged from the hospital after inpatient stay from 12/15-12/19. Patient states that he has an insulin pump and glucometer and has been taking his insulin. He states that out of no where this afternoon he began to vomit uncontrollably. He states that when he left to come to the ER his blood sugar was 199, but by the time he came to the emergency department it was ?high?. Reports generalized abdominal pain similar to previous flare-ups of gastroparesis Related Data Home Medications Medication Instructions Recorded Confirmed diphenhydramine HCl 25 mg tablet 25 mg PO BEDTIME PRN Insomnia 07/09/23 12/21/23 insulin pump syringe 3 mL 10/04/23 12/18/23 (Extended [place]) metoprolol succinate 50 mg 50 mg PO DAILY 10/22/23 12/21/23 tablet,extended release 24 hr zolpidem 5 mg tablet (Ambien) 5 mg PO BEDTIME PRN Insomnia 11/05/23 12/21/23 insulin regular human 100 unit/mL 9 unit SUBCUT ACHS 11/15/23 12/21/23 injection solution (Humulin R Regular U-100 Insulin) Previous Rx's Medication Instructions Recorded levothyroxine 50 mcg tablet 50 mcg PO DAILY #90 tabs 10/22/23 hydroxyzine HCl 10 mg tablet 10 mg PO TID PRN anxiety #84 tabs 11/08/23 lorazepam 1 mg tablet 1 mg PO BID PRN nausea and 11/15/23 vomiting #30 tabs sucralfate 1 gram tablet (Carafate) 1 g PO BID #60 tabs 11/15/23 gabapentin 300 mg capsule 300 mg PO BID 90 days #180 caps 12/06/23 metoclopramide HCl 5 mg tablet 5 mg PO AC 30 days #90 tabs 12/06/23 blood sugar diagnostic (Blood #50 ea 12/20/23 Glucose Test strips) blood-glucose meter (Blood Glucose #1 ea 12/20/23 Monitoring kit) lancets #100 ea 12/20/23 pantoprazole 40 mg tablet,delayed 40 mg PO 0700,2100 #60 tabs 12/20/23 release fluoxetine 10 mg capsule 10 mg PO DAILY #30 caps 12/21/23 Allergies Allergy/AdvReac Type Severity Reaction Status Date / Time aspirin [ASPIRIN] Allergy Unknown MAKES ME Verified 12/16/23 10:45 GO DEAF hydrocodone [HYDROCODONE] AdvReac Intermediate VOMITING Verified 12/16/23 10:45 ibuprofen [IBUPROFEN] AdvReac Intermediate HURTS Verified 12/16/23 10:45 KIDNEYS Patient History Medical History MDD (major depressive disorder), recurrent episode, moderate Generalized anxiety disorder Compression fracture Chronic lower back pain HTN (hypertension) Hypothyroidism Marijuana use History of MRSA infection History of pneumonia Blurry vision, bilateral Diabetic neuropathy Bipolar disorder with depression Nausea and vomiting Diabetes type 1, uncontrolled Diabetic gastroparesis Surgical History No pertinent past surgical history Family History Mother No known health problems Father No known health problems Social History household members: family Smoking Status: Former smoker alcohol intake: current Smoking Status: Former smoker alcohol intake frequency: holidays/special occasions only Alcohol type: hard liquor Substance Use Type: marijuana Exam Initial Vital Signs Initial Vital Signs: Vital Signs Temperature 95.7 F L 12/22/23 20:27 Pulse Rate 118 H 12/22/23 20:27 Respiratory Rate 22 12/22/23 20:27 Blood Pressure 123/88 12/22/23 20:27 Pulse Oximetry 99 12/22/23 20:27 Oxygen Delivery Method Room Air 12/22/23 20:27 Const: Awake, alert, appears chronically unwell, older than stated age, pale Cardiac: Tachycardia, regular rhythm RESP: unlabored, clear bilaterally, no wheezing GI: Soft, generalized tenderness to deep palpation without rebound or guarding MSK: Atraumatic, full range of motion, pulses equal Skin: Warm, Dry, intact, no rashes Neuro: AO x3, CN II-XII grossly intact, moves all extremities Course Orders Ordered: ED Orders 12/22/23 21:09 Venous Blood Gas Routine 12/22/23 21:10 CBC Auto Diff [Complete Blood Count AUTO DIFF] Stat CMP [Comprehensive Metabolic Panel] Stat Ketones (Beta-Hydroxybutyrate) Stat Lactate (Lactic Acid) Stat MAG [Magnesium] Stat 12/22/23 22:00 UA Complete [Urinalysis and Microscopic] Stat Diphenhydramine HCl (Diphenhydramine 25 Mg Tablet) 25 mg PO BEDTIME PRN PRN Reason: Insomnia Gabapentin (Gabapentin 300 Mg Capsule) 300 mg PO BID XENA Hydromorphone HCl (Hydromorphone 0.5 Mg Inj) 0.5 mg IV Q2H PRN PRN Reason: Pain, Severe (7-10) Last Admin: 12/23/23 04:24 Dose: 0.5 mg Documented By: DHRUV INSULIN DRIP PREMIX (Myxredlin Drip Premix) 100 unit in 100 mls @ 7.711 mls/hr IV TITRATE XENA; Protocol Last Titration: 12/23/23 00:12 Dose: 0.1 unit/kg/hr, 7.7 mls/hr Documented By: TARAH Co-signed By: KELLE Admin: 12/22/23 23:33 Dose: 0.1 unit/kg/hr, 7.711 mls/hr Documented By: TARAH Co-signed By: KELLE Sodium Chloride (Normal Saline 0.45%) 1,000 mls @ 100 mls/hr IV CONT XENA Last Admin: 12/23/23 01:00 Dose: 100 mls/hr Documented By: DHRUV Dextrose (D10w) 1,000 mls @ 0 mls/hr IV TITRATE XENA Last Infusion: 12/23/23 05:00 Dose: 144 mls/hr Documented By: Admin: 12/23/23 04:00 Dose: 72 mls/hr Documented By: DHRUV Dextrose/Sodium Chloride (Dextrose 5%-0.45% Ns) 1,000 mls @ 0 mls/hr IV CONT XENA Last Infusion: 12/23/23 04:00 Dose: 0 mls/hr Documented By: Admin: 12/23/23 01:00 Dose: 108 mls/hr Documented By: DHRUV Levothyroxine Sodium (Levothyroxine 50 Mcg Tablet) 50 mcg PO 0600 [facility] Last Admin: 12/23/23 05:51 Dose: 50 mcg Documented By: DHRUV Metoclopramide HCl (Metoclopramide Hcl 5 Mg Tablet) 5 mg PO AC [facility] Metoprolol Succinate (Metoprolol Er 50 Mg Tablet) 50 mg PO DAILY [facility] Naloxone HCl (Naloxone 0.4 Mg/Ml Vial) 0.2 mg IV Q2MIN PRN PRN Reason: Opiate Reversal Hydroxyzine Hcl 10 (Mg Tablet)) 10 mg PO TID PRN PRN Reason: anxiety Ondansetron HCl (Ondansetron 4 Mg/2 Ml Inj) 4 mg IV Q2HR PRN PRN Reason: Nausea And Vomiting Last Admin: 12/23/23 05:39 Dose: 4 mg Documented By: DHRUV Pantoprazole Sodium (Pantoprazole 40 Mg Vial) 40 mg IV DAILY [facility] Pantoprazole Sodium (Pantoprazole Dr 40 Mg Tablet) 40 mg PO 0700,2100 [facility] Discontinued Medications Droperidol (Droperidol 5 Mg/2 Ml Vial) 2.5 mg IV NOW ONE Stop: 12/22/23 21:54 Last Admin: 12/22/23 22:21 Dose: 2.5 mg Documented By: TARAH Sodium Chloride (Normal Saline 0.9%) 1,000 mls @ 1,000 mls/hr IV BOLUS ONE Stop: 12/22/23 21:52 Last Infusion: 12/22/23 22:32 Dose: Infused Documented By: Admin: 12/22/23 21:15 Dose: 1,000 mls/hr Documented By: TARAH POTASSIUM CHLORIDE IN WATER (Potassium Cl 10 Meq/100 Ml [place]) 10 meq in 100 mls @ 100 mls/hr IV Q1H [facility] Stop: 12/22/23 23:59 Last Infusion: 12/23/23 01:23 Dose: Infused Documented By: Infusion: 12/23/23 00:12 Dose: 100 mls/hr Documented By: Admin: 12/22/23 23:33 Dose: 100 mls/hr Documented By: Infusion: 12/22/23 23:27 Dose: Infused Documented By: Admin: 12/22/23 22:27 Dose: 100 mls/hr Documented By: TARAH Sodium Chloride (Normal Saline 0.9%) 1,000 mls @ 1,000 mls/hr IV BOLUS ONE Stop: 12/22/23 22:49 Last Infusion: 12/22/23 23:38 Dose: Infused Documented By: Admin: 12/22/23 22:21 Dose: 1,000 mls/hr Documented By: TARAH Insulin Human Regular (Insulin Regular 100 Unit/Ml 3 Ml Vial) 10 unit IV NOW ONE Stop: 12/22/23 21:50 Last Admin: 12/22/23 22:24 Dose: 10 unit Documented By: TARAH Co-signed By: KELLE Morphine Sulfate (Morphine 4 Mg/Ml Inj) 4 mg IV NOW ONE Stop: 12/22/23 21:54 Last Admin: 12/22/23 22:23 Dose: 4 mg Documented By: TARAH Vital Signs Vital signs: Vital Signs - 8 hr 12/22/23 22:00 12/22/23 22:30 12/22/23 22:30 Pulse Rate 104 H 98 H Respiratory Rate 18 20 Blood Pressure 128/72 Pulse Oximetry 100 97 12/22/23 23:00 Pulse Rate 100 H Respiratory Rate Blood Pressure Pulse Oximetry 98 MDM - Nausea/Vomiting/Diarrhea Lab Data 12/22/23 21:10 12/22/23 21:10 Labs: Lab Results 12/22/23 12/22/23 12/22/23 Range/Units 21:09 21:10 22:00 WBC 10.8 (4.5-11.0) X10^3/uL RBC 4.74 (4.5-5.9) X10^6/uL Hgb 11.3 L (13.5-17.5) g/dL Hct 35.4 L (41-53) % MCV 74.7 L (80-100) fL MCH 23.8 L (26-34) PG MCHC 31.9 (30-36) % RDW 17.2 H (11.6-14.8) % Plt Count 437 H (150-400) X10^3/uL Neut % (Auto) 82.5 H (50-75) % Lymph % (Auto) 10.6 L (25-40) % [place] % (Auto) 6.7 (3-14) % Eos % (Auto) 0.0 L (2-4) % Baso % (Auto) 0.2 (0-2) % Neut # (Auto) 8900 H (0800-0240) /uL Lymph # (Auto) 1100 (2702-4995) /uL [place] # (Auto) 700 (0-900) /uL Eos # (Auto) 0 (0-450) /uL Baso # (Auto) 0 (0-100) /uL VBG pH 7.48 H (7.33-7.43) VBG pCO2 21.4 L (45-50) mmHg VBG pO2 25 L (35-45) mmHg VBG HCO3 16 L (24-28) mmol/L VBG Total CO2 15 L (24-29) mmol/L VBG O2 Saturation 53 L (70-75) % VBG Base Excess -5.5 L (0-4) mmol/L Sodium 129 L (137-145) mmol/L Potassium 4.8 (3.4-5.1) mmol/L Chloride 91 L (98-107) mmol/L Carbon Dioxide 13 L (22-32) mmol/L BUN 22 H (9-20) mg/dL Creatinine 1.46 H (0.66-1.25) mg/dL Estimated GFR > 60 (>60) mL/min BUN/Creatinine Ratio 15.1 (6-22) Glucose 499 H* D (70-100) mg/dL Lactate 3.5 H (0.7-2.1) mmol/L Calcium 9.5 (8.4-10.2) mg/dL Magnesium 2.1 (1.6-2.3) mg/dL Total Bilirubin 1.1 (0.2-1.3) mg/dL AST 25 (17-59) IU/L ALT 23 (<50) IU/L Alkaline Phosphatase 111 (38-126) U/L Total Protein 7.3 (6.3-8.2) g/dL Albumin 4.3 (3.5-5.0) g/dL Globulin 3.0 (1.7-4.1) g/dL Albumin/Globulin Ratio 1.4 (1.0-2.8) Urine Color Yellow Urine Appearance Clear Urine pH 5.5 (4.5-8.0) Ur Specific [place] 1.015 (1.000-1.035) Urine Protein Negative (Negative) Urine Glucose (UA) 3+ H (Negative) g/dL Urine Ketones 3+ H (NEGATIVE) Urine Occult Blood Trace-intact (Negative) Urine Nitrate Negative (Negative) Urine Bilirubin Negative (NEGATIVE) Urine Urobilinogen 0.2 (0.2) E.U./dL Ur Leukocyte Esterase Negative (NEGATIVE) Urine RBC 0-1/hpf (0-5/HPF) Urine WBC None seen (0-5/HPF) Ur Squamous Epith Cells 0-1 /hpf (0-5/HPF) Urine Bacteria Occasional (0-1) (None) Ur Culture Indicated? Cult not indicated Vol Urine Centrifuged 10ml (spun) Ketones 8.55 H (<0.27) mmol/L 12/21/ Range/Units 23:17 WBC (4.5-11.0) X10^3/uL RBC (4.5-5.9) X10^6/uL Hgb (13.5-17.5) g/dL Hct (41-53) % MCV (80-100) fL MCH (26-34) PG MCHC (30-36) % RDW (11.6-14.8) % Plt Count (150-400) X10^3/uL Neut % (Auto) (50-75) % Lymph % (Auto) (25-40) % [place] % (Auto) (3-14) % Eos % (Auto) (2-4) % Baso % (Auto) (0-2) % Neut # (Auto) (8303-8578) /uL Lymph # (Auto) (6351-4770) /uL [place] # (Auto) (0-900) /uL Eos # (Auto) (0-450) /uL Baso # (Auto) (0-100) /uL VBG pH (7.33-7.43) VBG pCO2 (45-50) mmHg VBG pO2 (35-45) mmHg VBG HCO3 (24-28) mmol/L VBG Total CO2 (24-29) mmol/L VBG O2 Saturation (70-75) % VBG Base Excess (0-4) mmol/L Sodium (137-145) mmol/L Potassium (3.4-5.1) mmol/L Chloride (98-107) mmol/L Carbon Dioxide (22-32) mmol/L BUN (9-20) mg/dL Creatinine (0.66-1.25) mg/dL Estimated GFR (>60) mL/min BUN/Creatinine Ratio (6-22) Glucose (70-100) mg/dL Lactate 1.8 (0.7-2.1) mmol/L Calcium (8.4-10.2) mg/dL Magnesium (1.6-2.3) mg/dL Total Bilirubin (0.2-1.3) mg/dL AST (17-59) IU/L ALT (<50) IU/L Alkaline Phosphatase (38-126) U/L Total Protein (6.3-8.2) g/dL Albumin (3.5-5.0) g/dL Globulin (1.7-4.1) g/dL Albumin/Globulin Ratio (1.0-2.8) Urine Color Urine Appearance Urine pH (4.5-8.0) Ur Specific [place] (1.000-1.035) Urine Protein (Negative) Urine Glucose (UA) (Negative) g/dL Urine Ketones (NEGATIVE) Urine Occult Blood (Negative) Urine Nitrate (Negative) Urine Bilirubin (NEGATIVE) Urine Urobilinogen (0.2) E.U./dL Ur Leukocyte Esterase (NEGATIVE) Urine RBC (0-5/HPF) Urine WBC (0-5/HPF) Ur Squamous Epith Cells (0-5/HPF) Urine Bacteria (None) Ur Culture Indicated? Vol Urine Centrifuged Ketones (<0.27) mmol/L Point of Care Testing Glucose POC 417 MDM Narrative Medical decision making narrative: Chronically unwell appearing patient with vomiting and elevated blood glucose readings at the ER. Concern is for DKA. Patient has been seen in this emergency department numerous times for same. Abdomen soft, no peritoneal signs. With multiple smilar presentations will defer abdominal imaging at this time. Nausea medications, fluids ordered. Laboratory work is reviewed, WBC count 10.8, hemoglobin 11.3, platelets 437, sodium 129, potassium 4.8, creatinine 1.46, glucose 499, lactic acid 3.5. Calculated anion gap 25. VBG shows pH 7.48. Patient given several L of IV normal saline. Bolus of 5 units insulin ordered as well as insulin drip with additional fluids. Since patient's serum potassium is 4.8 a small amount of potassium riders added to fluids while insulin drip in place. Plan to admit for further treatment. Critical Care Time Critical Care Time Critical Care Time: Yes Total Critical Care Time: 42 Attestation: DKA with elevated anion gap requiring aggressive fluid resuscitation, insulin administration, and hospitalization. Discharge Plan Departure Patient Disposition: Admitted As Inpatient Clinical Impression: DKA, type 1, Nausea & vomiting Admit Date/Time: 12/22/23 23:29 Admit Provider: Chance Lehman
[2023-12-22 22:07] LABS: Appearance Urine UA CLEAR; Bilirubin Urine UA NEGATIVE (NEGATIVE); Color Urine UA YELLOW; Glucose Urine UA 3+ g/dL (Negative); Ketones Urine UA 3+ (NEGATIVE); Leukocyte Esterase Urine UA NEGATIVE (NEGATIVE); Nitrite Urine UA NEGATIVE (Negative); Occult Blood Urine UA TRACE-INTACT (Negative); Protein Urine UA NEGATIVE (Negative); Specific Gravity Urine UA 1.015 (1.000-1.035); Urobilinogen Urine UA 0.2 E.U./dL (0.2); pH Urine UA 5.5 (4.5-8.0)
[2023-12-22 22:15] LABS: Bacteria Urine Occasional (0-1); Culture Indicated Urine Cult Not Indicated; RBC Urine 0-1/HPF (0-5/HPF); Squamous Epithelial Cell Urine 0-1 /HPF (0-5/HPF); Urine Volume 10mL (spun); WBC Urine None Seen (0-5/HPF)
[2023-12-22] MEDS: DROPERIDOL 5 MG/2 ML VIAL 2.5 MG IV (22:21)
[2023-12-22] MEDS: MORPHINE 4 MG/ML INJ IV (22:23)
[2023-12-22] MEDS: INSULIN REGULAR 100 UNIT/ML 3 ML VIAL 10 UNIT IV (22:24)
[2023-12-22] MEDS: POTASSIUM CHLORIDE IN WATER 10 MEQ/100 ML PIGGYBACK 100 MEQ IV ×2 (22:27→23:33)
[2023-12-22 22:53] LABS: Reflexed Lactate in 2 Hours Y
[2023-12-22 23:23] LABS: Ketones (Beta-Hydroxybutyrate) 8.55 mmol/L (<0.27)
[2023-12-22] MEDS: INSULIN DRIP PREMIX 100 UNIT/100 ML PLAST..BAG 7.711 UNIT IV (23:33)
[2023-12-22 23:35] LABS: Lactate 2HR (Lactic Acid Rflx) 1.8 mmol/L (0.7-2.1)
[2023-12-23] VITALS (18 sets, daily range): BP systolic 96–158; BP diastolic 53–109; PULSE 84–109; RESP 14–21; TEMP 36.4–37.3; O2SAT 98–100; BMI 22.7
--- NOTE | 2023-12-23 | PATH_ITS ---
[facility] Accession Number: [id number] No. of containers..02 Tissue . 01 Material submitted: . PART A: stomach - STOMACH BODY PART B: esophagus - DISTAL ESOPHAGUS . 01 Diagnosis: Part A: STOMACH BODY: Gastric mucosa with focal mild chronic inflammation. No Helicobacter organisms identified. No intestinal metaplasia, dysplasia, or malignancy identified. . Part B: DISTAL ESOPHAGUS: Squamocolumnar junctional mucosa with ulcer and reactive foveolar hyperplasia. No goblet cell metaplasia, dysplasia, malignancy, or infectious organisms identified. See comment. . Specimen Comments: The histologic features raise a differential including severe reflux or pill esophagitis. Clinical correlation is recommended for further evaluation. [facility] 12/28/20231552 Local . 01 Electronically signed: . Fly Carter MD, Pathologist NPI- [id number] . 01 Gross description: . A. Received in formalin, labeled with two patient identifiers and designated stomach body, and consists of two quezada-brown irregular soft tissues averaging 0.2 cm in greatest dimension, which are entirely submitted in cassette A1. . B. Received in formalin, labeled with two patient identifiers and designated esophagus biopsy distal, and consists of a 0.8 x 0.5 x 0.2 cm aggregate of quezada-brown, friable soft tissue fragments which are entirely submitted in cassette B1. ([id number]) /[place] 12/28/20231552 Local . 01 Microscopic: . Part A: STOMACH BODY: An immunohistochemical stain was performed to evaluate for Helicobacter organisms and is negative. The control stains appropriately. * This test was developed and the performance characteristics were validated by [employer]. It has not been cleared or approved by the Food and Drug Administration. . Part B: DISTAL ESOPHAGUS: An ABPAS stain was performed to evaluate for fungal organisms and is negative. No viral cytopathic effect is seen, either by H/E or with HSV or CMV immunostains*. No fungal organisms are seen with an AB/PAS stain. All controls stain as expected. . * This test was developed and the performance characteristics were validated by [employer]. It has not been cleared or approved by the Food and Drug Administration. . 01 Pathologist provided ICD-10: K22.10, K29.50 . 01 CPT . 516611, 787717, Q98085, B74630 Specimen Comment: A courtesy copy of this report has been sent to [phone] Performed at: [address] [facility] [place], [id number] MD Fly Carter MD Phone: [phone]
[2023-12-23] MEDS: DEXTROSE 5%-0.45% NS 1,000 ML 108 ML IV ×2 (01:00→19:03)
[2023-12-23] MEDS: SODIUM CHLORIDE 0.45% 1,000 ML 100 ML IV ×2 (01:00→11:03)
--- NOTE | 2023-12-23 02:27 | PM.HP.1 ---
History of Present Illness History of Present Illness Date Patient Seen: 12/23/23 Time Patient Seen: 01:00 Chief complaint: cant stop vomiting 12 hours, sent by pcp Narrative: 33 y/o with PMH of type 1 DM and diabetic gastroparesis, very frequent hospitalizations with intractable nausea and vomiting and DKA, last from 12/15-12/19, presented after 12 hours of intractable nausea and numerous episodes of vomiting. He presented with another episode of DKA, with high glucose, ketones, anion gap and normal pH, likely in part compensated by vomiting and tachypnea, started on antiemetics, insulin drip and IVFs. [facility] Medical History MDD (major depressive disorder), recurrent episode, moderate Generalized anxiety disorder Compression fracture Chronic lower back pain HTN (hypertension) Hypothyroidism Marijuana use History of MRSA infection History of pneumonia Blurry vision, bilateral Diabetic neuropathy Bipolar disorder with depression Nausea and vomiting Diabetes type 1, uncontrolled Diabetic gastroparesis Surgical History No pertinent past surgical history Family History Mother No known health problems Father No known health problems Social History household members: family Smoking Status: Former smoker alcohol intake: current Meds Home Medications and Allergies Home Medications Medication Instructions Recorded Confirmed Type diphenhydramine HCl 25 mg tablet 25 mg PO BEDTIME PRN Insomnia 07/09/23 12/21/23 History insulin pump syringe 3 mL 10/04/23 12/18/23 History (Extended [place]) levothyroxine 50 mcg tablet 50 mcg PO DAILY #90 tabs 10/22/23 12/21/23 Rx metoprolol succinate 50 mg 50 mg PO DAILY 10/22/23 12/21/23 History tablet,extended release 24 hr zolpidem 5 mg tablet (Ambien) 5 mg PO BEDTIME PRN Insomnia 11/05/23 12/21/23 History hydroxyzine HCl 10 mg tablet 10 mg PO TID PRN anxiety #84 tabs 11/08/23 12/21/23 Rx insulin regular human 100 unit/mL 9 unit SUBCUT ACHS 11/15/23 12/21/23 History injection solution (Humulin R Regular U-100 Insulin) lorazepam 1 mg tablet 1 mg PO BID PRN nausea and 11/15/23 12/21/23 Rx vomiting #30 tabs sucralfate 1 gram tablet (Carafate) 1 g PO BID #60 tabs 11/15/23 12/21/23 Rx gabapentin 300 mg capsule 300 mg PO BID 90 days #180 caps 12/06/23 12/21/23 Rx metoclopramide HCl 5 mg tablet 5 mg PO AC 30 days #90 tabs 12/06/23 12/21/23 Rx blood sugar diagnostic (Blood #50 ea 12/20/23 Rx Glucose Test strips) blood-glucose meter (Blood Glucose #1 ea 12/20/23 Rx Monitoring kit) lancets #100 ea 12/20/23 Rx pantoprazole 40 mg tablet,delayed 40 mg PO 0700,2100 #60 tabs 12/20/23 12/21/23 Rx release fluoxetine 10 mg capsule 10 mg PO DAILY #30 caps 12/21/23 12/21/23 Rx Allergies Allergy/AdvReac Type Severity Reaction Status Date / Time aspirin [ASPIRIN] Allergy Unknown MAKES ME Verified 12/16/23 10:45 GO DEAF hydrocodone [HYDROCODONE] AdvReac Intermediate VOMITING Verified 12/16/23 10:45 ibuprofen [IBUPROFEN] AdvReac Intermediate HURTS Verified 12/16/23 10:45 KIDNEYS Review of Systems Endocrine Comments: after the discharge on 12/19 he was doing fine, took glucometer, was feeling OK up until 12 hours prior to readmission when started to develop nausea and vomiting Exam Vital Signs (past 8 hours): - 12/22/23 20:27 12/22/23 20:38 12/22/23 20:40 Temperature 95.7 F L Pulse Rate 118 H 94 H Respiratory Rate 22 Blood Pressure 123/88 161/104 H Pulse Oximetry 99 Oxygen Delivery Method Room Air Oxygen Flow Rate 12/22/23 20:40 12/22/23 20:51 12/22/23 20:51 Temperature Pulse Rate 110 H 116 H Respiratory Rate 24 29 H Blood Pressure 158/103 H Pulse Oximetry 100 Oxygen Delivery Method Oxygen Flow Rate 12/22/23 21:00 12/22/23 21:26 12/22/23 21:26 Temperature Pulse Rate 104 H 109 H Respiratory Rate 24 18 Blood Pressure 181/99 H Pulse Oximetry 100 100 Oxygen Delivery Method Oxygen Flow Rate 12/22/23 21:30 12/22/23 21:30 12/22/23 22:00 Temperature Pulse Rate 114 H 104 H Respiratory Rate 22 18 Blood Pressure 182/90 H Pulse Oximetry 100 100 Oxygen Delivery Method Oxygen Flow Rate 12/22/23 22:30 12/22/23 22:30 12/22/23 23:00 Temperature Pulse Rate 98 H 100 H Respiratory Rate 20 Blood Pressure 128/72 Pulse Oximetry 97 98 Oxygen Delivery Method Oxygen Flow Rate 12/22/23 23:57 12/23/23 00:05 12/23/23 00:05 Temperature 98.1 F Pulse Rate 109 H Respiratory Rate 19 Blood Pressure 132/82 Pulse Oximetry 100 Oxygen Delivery Method Room Air Oxygen Flow Rate 0 12/23/23 01:00 12/23/23 01:00 12/23/23 02:00 Temperature Pulse Rate 96 H 99 H Respiratory Rate 19 15 Blood Pressure 105/60 Pulse Oximetry 99 99 Oxygen Delivery Method Oxygen Flow Rate 0 12/23/23 02:00 Temperature Pulse Rate Respiratory Rate Blood Pressure 103/62 Pulse Oximetry Oxygen Delivery Method Oxygen Flow Rate 0 Oxygen Delivery Method Room Air Oxygen Flow Rate 0 Const Other: appears sleepy, in no distress Resp Other: normal respiratory effort Cardio Other: RRR GI Other: abdomen not tender Psych Other: flat affect Objective Labs 12/22/23 21:10 12/22/23 21:10 Labs: Laboratory Results - last 24 hr 12/22/23 12/22/23 12/22/23 21:09 21:10 22:00 WBC 10.8 RBC 4.74 Hgb 11.3 L Hct 35.4 L MCV 74.7 L MCH 23.8 L MCHC 31.9 RDW 17.2 H Plt Count 437 H Neut % (Auto) 82.5 H Lymph % (Auto) 10.6 L [place] % (Auto) 6.7 Eos % (Auto) 0.0 L Baso % (Auto) 0.2 Neut # (Auto) 8900 H Lymph # (Auto) 1100 [place] # (Auto) 700 Eos # (Auto) 0 Baso # (Auto) 0 VBG pH 7.48 H VBG pCO2 21.4 L VBG pO2 25 L VBG HCO3 16 L VBG Total CO2 15 L VBG O2 Saturation 53 L VBG Base Excess -5.5 L Sodium 129 L Potassium 4.8 Chloride 91 L Carbon Dioxide 13 L BUN 22 H Creatinine 1.46 H Estimated GFR > 60 BUN/Creatinine Ratio 15.1 Glucose 499 H* D Lactate 3.5 H Calcium 9.5 Magnesium 2.1 Total Bilirubin 1.1 AST 25 ALT 23 Alkaline Phosphatase 111 Total Protein 7.3 Albumin 4.3 Globulin 3.0 Albumin/Globulin Ratio 1.4 Urine Color Yellow Urine Appearance Clear Urine pH 5.5 Ur Specific [place] 1.015 Urine Protein Negative Urine Glucose (UA) 3+ H Urine Ketones 3+ H Urine Occult Blood Trace-intact Urine Nitrate Negative Urine Bilirubin Negative Urine Urobilinogen 0.2 Ur Leukocyte Esterase Negative Urine RBC 0-1/hpf Urine WBC None seen Ur Squamous Epith Cells 0-1 /hpf Urine Bacteria Occasional (0-1) Ur Culture Indicated? Cult not indicated Vol Urine Centrifuged 10ml (spun) Ketones 8.55 H 12/22/23 23:17 WBC RBC Hgb Hct MCV MCH MCHC RDW Plt Count Neut % (Auto) Lymph % (Auto) [place] % (Auto) Eos % (Auto) Baso % (Auto) Neut # (Auto) Lymph # (Auto) [place] # (Auto) Eos # (Auto) Baso # (Auto) VBG pH VBG pCO2 VBG pO2 VBG HCO3 VBG Total CO2 VBG O2 Saturation VBG Base Excess Sodium Potassium Chloride Carbon Dioxide BUN Creatinine Estimated GFR BUN/Creatinine Ratio Glucose Lactate 1.8 Calcium Magnesium Total Bilirubin AST ALT Alkaline Phosphatase Total Protein Albumin Globulin Albumin/Globulin Ratio Urine Color Urine Appearance Urine pH Ur Specific [place] Urine Protein Urine Glucose (UA) Urine Ketones Urine Occult Blood Urine Nitrate Urine Bilirubin Urine Urobilinogen Ur Leukocyte Esterase Urine RBC Urine WBC Ur Squamous Epith Cells Urine Bacteria Ur Culture Indicated? Vol Urine Centrifuged Ketones Assessment & Plan Assessment and plan (1) DKA (diabetic ketoacidosis): Status: Acute (2) Diabetic gastroparesis: Status: Acute (3) Bipolar disorder with depression: Status: Acute (4) Hypothyroidism: Status: Acute (5) GERD (gastroesophageal reflux disease): Status: Acute Assessment & Plan narrative: DKA / Gastroparesis - insulin drip, IVFs, antiemetics, NPO tonight, clear liquid diet trial in AM - on last discharge, 2 days ago, he was referred to endocrinology, had arranged glucometer Bipolar Disorder - Prozac, hydroxyzine, lorazepam Hypothyroidism - levothyroxine GERD - recent minor hematemesis from gastritis - PPI bid HTN / CKD - Toprol XL 50 mg daily on hold, borderline hypotensive on admission - CKD stage 3B, at baseline DVT prophylaxis - SCDs Time-Based Coding :: [TOTAL MINUTES] spent with patient and on the chart (including review of chart, obtaining history, exam, reviewing outside data, placing orders, documenting exam and treatment plan, and counseling patient) on [DATE].
[2023-12-23 03:45] LABS: MRSA (Nasal) PCR NOT DETECTED (Not Detect)
[2023-12-23] MEDS: DEXTROSE 10 % IN WATER 1,000 ML 72 ML IV (04:00)
[2023-12-23] MEDS: HYDROMORPHONE 0.5 MG INJ IV ×5 (04:24→21:10)
--- NOTE | 2023-12-23 04:49 | PC.NURSE ---
Patient noted with dark brown vomitus, about 100 ml, guiac positive, hospitalist occupational health and safety adviser updated.
--- NOTE | 2023-12-23 04:57 | PC.NURSE ---
Guaiac sample is from vomit, per RN
[2023-12-23] MEDS: ONDANSETRON 4 MG/2 ML INJ IV ×3 (05:39→21:09)
[2023-12-23] MEDS: LEVOTHYROXINE 50 MCG TABLET PO (05:51)
[2023-12-23 06:55] LABS: Add Manual Diff / Slide Review NO; Basophils Absolute Auto 100 /uL (0-100); Basophils Percent Auto 0.5 % (0-2); Eosinophils Absolute Auto 100 /uL (0-450); Eosinophils Percent Auto 0.5 % (2-4); Hematocrit 30.2 % (41-53); Hemoglobin 9.8 g/dL (13.5-17.5); Lymphocytes Absolute Auto 1900 /uL (1100-4500); Lymphocytes Percent Auto 17.1 % (25-40); Mean Corpuscular HGB Conc 32.6 % (30-36); Mean Corpuscular Volume 73.6 fL (80-100); Monocytes Absolute Auto 1300 /uL (0-900); Monocytes Percent Auto 11.8 % (3-14); Neutrophils Absolute Auto 8000 /uL (1500-7000); Neutrophils Percent Auto 70.1 % (50-75); Platelet Count 428 X10^3/uL (150-400); Red Cell Distribution Width 17.1 % (11.6-14.8); White Blood Cell Count 11.4 X10^3/uL (4.5-11.0)
[2023-12-23 07:04] LABS: BUN Creatinine Ratio 16.7 (6-22); Blood Urea Nitrogen 18 mg/dL (9-20); Calcium 8.3 mg/dL (8.4-10.2); Carbon Dioxide 22 mmol/L (22-32); Chloride 102 mmol/L (98-107); Estimated Glomerular Filt Rate > 60 mL/min (>60); Glucose 143 mg/dL (70-100); HEMOLYSIS < 15 (0-50); Magnesium 2.1 mg/dL (1.6-2.3); Potassium 4.2 mmol/L (3.4-5.1); Sodium 133 mmol/L (137-145)
[2023-12-23] MEDS: PANTOPRAZOLE 40 MG VIAL IV (08:45)
[2023-12-23] MEDS: METOCLOPRAMIDE 10 MG/2 ML INJ IV ×2 (09:09→17:37)
--- NOTE | 2023-12-23 09:34 | PM.HP.1 ---
History of Present Illness History of Present Illness Date Patient Seen: 12/23/23 Chief complaint: cant stop vomiting 12 hours, sent by pcp Narrative: From night doctor: 33 y/o with PMH of type 1 DM and diabetic gastroparesis, very frequent hospitalizations with intractable nausea and vomiting and DKA, last from 12/15-12/19, presented after 12 hours of intractable nausea and numerous episodes of vomiting. He presented with another episode of DKA, with high glucose, ketones, anion gap and normal pH, likely in part compensated by vomiting and tachypnea, started on antiemetics, insulin drip and IVFs. Additional information: recurrent symptoms of nausea, vomiting and pain. He did see mental health OP on the . The recommendations were to start fluoxetine 10 mg in the morning and continue Ambien 5 mg. It was unclear if they confirmed his diagnosis of bipolar or not. He did well for about a day but then developed recurrent pain and vomiting with hematemesis. His blood sugars then skyrocketed. He was running his pump, he does not feel that there is any functional problem with the pump. His daily insulin demand is about 33 units. Denies blood per rectum or melena. He was having epigastric abdominal pain. [facility] Medical History MDD (major depressive disorder), recurrent episode, moderate Generalized anxiety disorder Compression fracture Chronic lower back pain HTN (hypertension) Hypothyroidism Marijuana use History of MRSA infection History of pneumonia Blurry vision, bilateral Diabetic neuropathy Bipolar disorder with depression Nausea and vomiting Diabetes type 1, uncontrolled Diabetic gastroparesis Surgical History No pertinent past surgical history Family History Mother No known health problems Father No known health problems Social History household members: family Smoking Status: Former smoker alcohol intake: current Meds Home Medications and Allergies Home Medications Medication Instructions Recorded Confirmed Type diphenhydramine HCl 25 mg tablet 25 mg PO BEDTIME PRN Insomnia 07/09/23 12/21/23 History insulin pump syringe 3 mL 10/04/23 12/18/23 History (Extended Iantha) levothyroxine 50 mcg tablet 50 mcg PO DAILY #90 tabs 10/22/23 12/21/23 Rx metoprolol succinate 50 mg 50 mg PO DAILY 10/22/23 12/21/23 History tablet,extended release 24 hr zolpidem 5 mg tablet (Ambien) 5 mg PO BEDTIME PRN Insomnia 11/05/23 12/21/23 History hydroxyzine HCl 10 mg tablet 10 mg PO TID PRN anxiety #84 tabs 11/08/23 12/21/23 Rx insulin regular human 100 unit/mL 9 unit SUBCUT ACHS 11/15/23 12/21/23 History injection solution (Humulin R Regular U-100 Insulin) lorazepam 1 mg tablet 1 mg PO BID PRN nausea and 11/15/23 12/21/23 Rx vomiting #30 tabs sucralfate 1 gram tablet (Carafate) 1 g PO BID #60 tabs 11/15/23 12/21/23 Rx gabapentin 300 mg capsule 300 mg PO BID 90 days #180 caps 12/06/23 12/21/23 Rx metoclopramide HCl 5 mg tablet 5 mg PO AC 30 days #90 tabs 12/06/23 12/21/23 Rx blood sugar diagnostic (Blood #50 ea 12/20/23 Rx Glucose Test strips) blood-glucose meter (Blood Glucose #1 ea 12/20/23 Rx Monitoring kit) lancets #100 ea 12/20/23 Rx pantoprazole 40 mg tablet,delayed 40 mg PO 0700,2100 #60 tabs 12/20/23 12/21/23 Rx release fluoxetine 10 mg capsule 10 mg PO DAILY #30 caps 12/21/23 12/21/23 Rx Allergies Allergy/AdvReac Type Severity Reaction Status Date / Time aspirin [ASPIRIN] Allergy Unknown MAKES ME Verified 12/16/23 10:45 GO DEAF hydrocodone [HYDROCODONE] AdvReac Intermediate VOMITING Verified 12/16/23 10:45 ibuprofen [IBUPROFEN] AdvReac Intermediate HURTS Verified 12/16/23 10:45 KIDNEYS Review of Systems Review of Systems Narrative: All else reviewed and otherwise unremarkable except as noted in the history and physical. Exam Vital Signs (past 8 hours): - 12/23/23 02:00 12/23/23 02:00 12/23/23 03:00 Temperature Pulse Rate 99 H Respiratory Rate 15 Blood Pressure 103/62 101/57 L Pulse Oximetry 99 Oxygen Flow Rate 0 0 12/23/23 03:00 12/23/23 04:00 12/23/23 04:00 Temperature 98.8 F Pulse Rate 91 H 91 H Respiratory Rate 16 16 Blood Pressure 118/75 Pulse Oximetry 99 99 Oxygen Flow Rate 0 12/23/23 05:00 12/23/23 05:00 12/23/23 06:00 Temperature Pulse Rate 90 Respiratory Rate 19 Blood Pressure 114/73 113/67 Pulse Oximetry 98 Oxygen Flow Rate 0 12/23/23 06:00 12/23/23 08:54 Temperature Pulse Rate 92 H 100 H Respiratory Rate 14 Blood Pressure 96/53 L Pulse Oximetry 99 Oxygen Flow Rate 0 Oxygen Delivery Method Room Air Oxygen Flow Rate 0 Narrative Exam Narrative: NAD, alert and oriented, Withdrawn and chronically ill in appearance Normocephalic skull, EOMI, anicteric sclera, symmetric pupils. Oropharynx unremarkable, no droop. Neck supple, midline trachea, no adenopathy. Lungs clear, normal rate and effort. Heart regular, no murmur gallop or rub. Abdomen is soft, non distended and some epigastric tenderness. Extremities are free of edema. Skin is free of rash or lesions. Joints are not swollen or deformed. Judgment appears to be abnormal. Objective Labs 12/23/23 06:30 12/23/23 09:30 Labs: Laboratory Results - last 24 hr 12/22/23 12/22/23 12/22/23 21:09 21:10 22:00 WBC 10.8 RBC 4.74 Hgb 11.3 L Hct 35.4 L MCV 74.7 L MCH 23.8 L MCHC 31.9 RDW 17.2 H Plt Count 437 H Neut % (Auto) 82.5 H Lymph % (Auto) 10.6 L [place] % (Auto) 6.7 Eos % (Auto) 0.0 L Baso % (Auto) 0.2 Neut # (Auto) 8900 H Lymph # (Auto) 1100 [place] # (Auto) 700 Eos # (Auto) 0 Baso # (Auto) 0 VBG pH 7.48 H VBG pCO2 21.4 L VBG pO2 25 L VBG HCO3 16 L VBG Total CO2 15 L VBG O2 Saturation 53 L VBG Base Excess -5.5 L Sodium 129 L Potassium 4.8 Chloride 91 L Carbon Dioxide 13 L BUN 22 H Creatinine 1.46 H Estimated GFR > 60 BUN/Creatinine Ratio 15.1 Glucose 499 H* D Lactate 3.5 H Calcium 9.5 Magnesium 2.1 Total Bilirubin 1.1 AST 25 ALT 23 Alkaline Phosphatase 111 Total Protein 7.3 Albumin 4.3 Globulin 3.0 Albumin/Globulin Ratio 1.4 Urine Color Yellow Urine Appearance Clear Urine pH 5.5 Ur Specific [place] 1.015 Urine Protein Negative Urine Glucose (UA) 3+ H Urine Ketones 3+ H Urine Occult Blood Trace-intact Urine Nitrate Negative Urine Bilirubin Negative Urine Urobilinogen 0.2 Ur Leukocyte Esterase Negative Urine RBC 0-1/hpf Urine WBC None seen Ur Squamous Epith Cells 0-1 /hpf Urine Bacteria Occasional (0-1) Ur Culture Indicated? Cult not indicated Vol Urine Centrifuged 10ml (spun) Nasal Screen MRSA (PCR) Ketones 8.55 H 12/22/23 12/23/23 12/23/23 23:17 02:03 06:30 WBC 11.4 H RBC 4.10 L Hgb 9.8 L Hct 30.2 L MCV 73.6 L MCH 24.0 L MCHC 32.6 RDW 17.1 H Plt Count 428 H Neut % (Auto) 70.1 Lymph % (Auto) 17.1 L [place] % (Auto) 11.8 Eos % (Auto) 0.5 L Baso % (Auto) 0.5 Neut # (Auto) 8000 H Lymph # (Auto) 1900 [place] # (Auto) 1300 H Eos # (Auto) 100 Baso # (Auto) 100 VBG pH VBG pCO2 VBG pO2 VBG HCO3 VBG Total CO2 VBG O2 Saturation VBG Base Excess Sodium 133 L Potassium 4.2 Chloride 102 Carbon Dioxide 22 BUN 18 Creatinine 1.08 Estimated GFR > 60 BUN/Creatinine Ratio 16.7 Glucose 143 H D Lactate 1.8 Calcium 8.3 L Magnesium 2.1 Total Bilirubin AST ALT Alkaline Phosphatase Total Protein Albumin Globulin Albumin/Globulin Ratio Urine Color Urine Appearance Urine pH Ur Specific [place] Urine Protein Urine Glucose (UA) Urine Ketones Urine Occult Blood Urine Nitrate Urine Bilirubin Urine Urobilinogen Ur Leukocyte Esterase Urine RBC Urine WBC Ur Squamous Epith Cells Urine Bacteria Ur Culture Indicated? Vol Urine Centrifuged Nasal Screen MRSA (PCR) Not detected Ketones Assessment & Plan Assessment & Plan narrative: 1. DKA, present on admission and active. - insulin drip, IVFs, antiemetics, NPO tonight, clear liquid diet trial in AM - on last discharge, 2 days ago, he was referred to endocrinology, had arranged glucometer 2. Reported hematemesis, present on admission and active. 3. Gastroparesis and vomiting, present on admission and active. 4. Depression and possibe bipolar disorder, present on admission and active. - Prozac, hydroxyzine, lorazepam 5. Hypothyroidism, present on admission and active. - levothyroxine 6. GERD, present on admission and active. - recent minor hematemesis from gastritis - PPI bid 7. HTN, present on admission and active. - Toprol XL 50 mg daily on hold, borderline hypotensive on admission - CKD stage 3B, at baseline 8. CKD, present on admission and active. PLAN: - Continue DKA protocol with IV insulin with a transition to subcutaneous when gap is closed and vomiting is improved. - Request endoscopy if available from General surgery for reported hematemesis and monitor hemoglobin. - Social work will be investigating mechanisms for increased care, possibly placement as he was not able to take care of himself in his current living environment. They will need several days to get things in order for a possible alternative placement option for him. He appears to be unable to take care of himself and is independent situation. HANS: 12/25 DVT prophylaxis - SCDs Time-Based Coding :: 35 min spent with patient and on the chart (including review of chart, obtaining history, exam, reviewing outside data, placing orders, documenting exam and treatment plan, and counseling patient) on 12/22. Quality MIPS - Admit The patient?s Advance Care plan is not present because I confirmed today that the patient does not wish or was not able to name a surrogate decision maker or provide an Advance Care Plan.: Yes MIPS - Meds 'Current medications' to include all prescriptions, [id number] products, herbals, cannabis/cannabidiol products, and vitamin/mineral/dietary (nutritional) supplements. I have utilized all available resources to obtain, update, or review the patient?s current medications. [If Yes, STOP here]: Yes
[2023-12-23 09:52] LABS: BUN Creatinine Ratio 14.3 (6-22); Blood Urea Nitrogen 15 mg/dL (9-20); Calcium 8.2 mg/dL (8.4-10.2); Carbon Dioxide 25 mmol/L (22-32); Chloride 104 mmol/L (98-107); Estimated Glomerular Filt Rate > 60 mL/min (>60); Glucose 97 mg/dL (70-100); HEMOLYSIS < 15 (0-50); Potassium 3.6 mmol/L (3.4-5.1); Sodium 134 mmol/L (137-145)
[2023-12-23] MEDS: INSULIN LISPRO 100 UNIT/ML 3ML VIAL SUBCUT ×2 (12:02→21:14)
[2023-12-23] MEDS: INSULIN GLARGINE 100 UNIT/ML 3ML PEN 20 UNIT SUBCUT (12:02)
--- NOTE | 2023-12-23 12:21 | CM.DANOTE ---
Initial DCP Assessment Note Pt is a 33 yo male, lives with grandmother Meghan in [place], according to ER Report by Dr Justice : type 1 insulin-dependent diabetes, diabetic gastroparesis, frequent hospitalizations due to DKA and diabetic complications presents by private vehicle from home for vomiting. Of note, patient just discharged from the hospital after inpatient stay from 12/15-12/19. Patient states that he has an insulin pump and glucometer and has been taking his insulin. He states that out of no where this afternoon he began to vomit uncontrollably. PCP: James Jung Payer: Mickey/BIRDIE Chart reviewed. Patient discussed in multidisciplinary rounds and in consultation with CM dept [employer] Truck Operator Mami Germain. It has become apparent that patient is having difficulty managing his Diabetes on his own, as evidenced by multiple hospitalizations for DKA and Diabetes related issues. Patient would benefit from in home care and nursing to assist with medication management, meal planning, chores and shopping. Faxed the expedited request form to home and community services 12/22 ...requesting assignment of a hospital based HCS/HS worker to complete patient's functional assessment. Patient would like in home [facility] caregivers. Patient would likely benefit from adult family home; have not discussed this with patient and family. Discussed IV Dilaudid with Dr Moore. Historically, managing patient's pain without IV narcotics has been difficult; patient consistently reports high pain levels in back and abdomen r/t gastroparesis. Patient was seen by psychiatrist Dr Mccracken 12/20. Prozac prescribed which has been added to the inpatient med list. [facility] and Community services office P [phone] is closed from [id number] for lunch, will call when they open to ask about assignment of HCS worker GORDON Barba Discharge Planning/Care Management CM Discharge Assessment Start: 12/23/23 12:14 Freq: Status: Active Protocol: Document 12/23/23 12:14 GRETA (Rec: 12/23/23 12:21 GRETA [id number]) Discharge Planning Assessment Assigned Air Director GORDON Gutierrez DPOA/Assigned Designee Name Meghan Lowery grandmother Contact Information [phone] Advance Directives? No Advance Directives on File No History Provided By Patient,Medical Record Has Patient been admitted in last 30 Yes days? Prior Living Arrangements House Household Members family Type of transporation used prior to Relies on Others admit Independent with ADL's Yes Is patient alert and oriented? Yes Comment Patient is not managing his chronic disease well, evidenced by multiple hospitalizations related to N/ V, DKA. Comment Patient has left foot drop which he wears a brace for. Barriers to Discharge Yes Comment See narrative. Transportation Arrangement TBD Referrals Initiated Other
--- NOTE | 2023-12-23 15:10 | CM.DPNOTE ---
VINH Cont Met w/patient this afternoon, updated on efforts being attempted with the state for in home care, [facility]. Patient agreeable. Discussed adult family home; patient says he will consider but would like to return home upon discharge. CM team following closely. GRETA
--- NOTE | 2023-12-23 15:33 | PM.CN ---
History of Present Illness Consult details Date Patient Seen: 12/23/23 Time Patient Seen: 15:33 Chief complaint: cant stop vomiting 12 hours, sent by pcp Narrative: Valentin is a 33-year-old man who presented to the emergency room because of intractable nausea and vomiting. He reports that he had spanned vomiting black contents for the past 2 days. He has a past history nausea vomiting and other health problems. Meds Home Medications and Allergies Home Medications Medication Instructions Recorded Confirmed Type diphenhydramine HCl 25 mg tablet 25 mg PO BEDTIME PRN Insomnia 07/09/23 12/21/23 History insulin pump syringe 3 mL 10/04/23 12/18/23 History (Extended Marlin) levothyroxine 50 mcg tablet 50 mcg PO DAILY #90 tabs 10/22/23 12/21/23 Rx metoprolol succinate 50 mg 50 mg PO DAILY 10/22/23 12/21/23 History tablet,extended release 24 hr zolpidem 5 mg tablet (Ambien) 5 mg PO BEDTIME PRN Insomnia 11/05/23 12/21/23 History hydroxyzine HCl 10 mg tablet 10 mg PO TID PRN anxiety #84 tabs 11/08/23 12/21/23 Rx insulin regular human 100 unit/mL 9 unit SUBCUT ACHS 11/15/23 12/21/23 History injection solution (Humulin R Regular U-100 Insulin) lorazepam 1 mg tablet 1 mg PO BID PRN nausea and 11/15/23 12/21/23 Rx vomiting #30 tabs sucralfate 1 gram tablet (Carafate) 1 g PO BID #60 tabs 11/15/23 12/21/23 Rx gabapentin 300 mg capsule 300 mg PO BID 90 days #180 caps 12/06/23 12/21/23 Rx metoclopramide HCl 5 mg tablet 5 mg PO AC 30 days #90 tabs 12/06/23 12/21/23 Rx blood sugar diagnostic (Blood #50 ea 12/20/23 Rx Glucose Test strips) blood-glucose meter (Blood Glucose #1 ea 12/20/23 Rx Monitoring kit) lancets #100 ea 12/20/23 Rx pantoprazole 40 mg tablet,delayed 40 mg PO 0700,2100 #60 tabs 12/20/23 12/21/23 Rx release fluoxetine 10 mg capsule 10 mg PO DAILY #30 caps 12/21/23 12/21/23 Rx Allergies Allergy/AdvReac Type Severity Reaction Status Date / Time aspirin [ASPIRIN] Allergy Unknown MAKES ME Verified 12/16/23 10:45 GO DEAF hydrocodone [HYDROCODONE] AdvReac Intermediate VOMITING Verified 12/16/23 10:45 ibuprofen [IBUPROFEN] AdvReac Intermediate HURTS Verified 12/16/23 10:45 KIDNEYS Exam Vital Signs (past 8 hours): - 12/23/23 08:00 12/23/23 08:00 12/23/23 08:54 Temperature Pulse Rate 89 100 H Respiratory Rate 18 Blood Pressure 96/53 L 96/53 L Pulse Oximetry 99 Oxygen Delivery Method Oxygen Flow Rate 12/23/23 12:32 12/23/23 15:14 Temperature 97.6 F Pulse Rate 90 99 H Respiratory Rate 16 21 Blood Pressure 108/57 L 158/109 H Pulse Oximetry 98 100 Oxygen Delivery Method Room Air Oxygen Flow Rate 0 Oxygen Delivery Method Room Air Oxygen Flow Rate 0 Const General: ill appearing Orientation: awake Resp Effort & Inspection: normal respiratory effort Objective Labs 12/23/23 06:30 12/23/23 09:30 Labs: Laboratory Results - last 24 hr 12/22/23 12/22/23 12/22/23 21:09 21:10 22:00 WBC 10.8 RBC 4.74 Hgb 11.3 L Hct 35.4 L MCV 74.7 L MCH 23.8 L MCHC 31.9 RDW 17.2 H Plt Count 437 H Neut % (Auto) 82.5 H Lymph % (Auto) 10.6 L [place] % (Auto) 6.7 Eos % (Auto) 0.0 L Baso % (Auto) 0.2 Neut # (Auto) 8900 H Lymph # (Auto) 1100 [place] # (Auto) 700 Eos # (Auto) 0 Baso # (Auto) 0 VBG pH 7.48 H VBG pCO2 21.4 L VBG pO2 25 L VBG HCO3 16 L VBG Total CO2 15 L VBG O2 Saturation 53 L VBG Base Excess -5.5 L Sodium 129 L Potassium 4.8 Chloride 91 L Carbon Dioxide 13 L BUN 22 H Creatinine 1.46 H Estimated GFR > 60 BUN/Creatinine Ratio 15.1 Glucose 499 H* D Lactate 3.5 H Calcium 9.5 Magnesium 2.1 Total Bilirubin 1.1 AST 25 ALT 23 Alkaline Phosphatase 111 Total Protein 7.3 Albumin 4.3 Globulin 3.0 Albumin/Globulin Ratio 1.4 Urine Color Yellow Urine Appearance Clear Urine pH 5.5 Ur Specific [place] 1.015 Urine Protein Negative Urine Glucose (UA) 3+ H Urine Ketones 3+ H Urine Occult Blood Trace-intact Urine Nitrate Negative Urine Bilirubin Negative Urine Urobilinogen 0.2 Ur Leukocyte Esterase Negative Urine RBC 0-1/hpf Urine WBC None seen Ur Squamous Epith Cells 0-1 /hpf Urine Bacteria Occasional (0-1) Ur Culture Indicated? Cult not indicated Vol Urine Centrifuged 10ml (spun) Nasal Screen MRSA (PCR) Ketones 8.55 H 12/22/23 12/23/23 12/23/23 23:17 02:03 06:30 WBC 11.4 H RBC 4.10 L Hgb 9.8 L Hct 30.2 L MCV 73.6 L MCH 24.0 L MCHC 32.6 RDW 17.1 H Plt Count 428 H Neut % (Auto) 70.1 Lymph % (Auto) 17.1 L [place] % (Auto) 11.8 Eos % (Auto) 0.5 L Baso % (Auto) 0.5 Neut # (Auto) 8000 H Lymph # (Auto) 1900 [place] # (Auto) 1300 H Eos # (Auto) 100 Baso # (Auto) 100 VBG pH VBG pCO2 VBG pO2 VBG HCO3 VBG Total CO2 VBG O2 Saturation VBG Base Excess Sodium 133 L Potassium 4.2 Chloride 102 Carbon Dioxide 22 BUN 18 Creatinine 1.08 Estimated GFR > 60 BUN/Creatinine Ratio 16.7 Glucose 143 H D Lactate 1.8 Calcium 8.3 L Magnesium 2.1 Total Bilirubin AST ALT Alkaline Phosphatase Total Protein Albumin Globulin Albumin/Globulin Ratio Urine Color Urine Appearance Urine pH Ur Specific [place] Urine Protein Urine Glucose (UA) Urine Ketones Urine Occult Blood Urine Nitrate Urine Bilirubin Urine Urobilinogen Ur Leukocyte Esterase Urine RBC Urine WBC Ur Squamous Epith Cells Urine Bacteria Ur Culture Indicated? Vol Urine Centrifuged Nasal Screen MRSA (PCR) Not detected Ketones 12/23/23 09:30 WBC RBC Hgb Hct MCV MCH MCHC RDW Plt Count Neut % (Auto) Lymph % (Auto) [place] % (Auto) Eos % (Auto) Baso % (Auto) Neut # (Auto) Lymph # (Auto) [place] # (Auto) Eos # (Auto) Baso # (Auto) VBG pH VBG pCO2 VBG pO2 VBG HCO3 VBG Total CO2 VBG O2 Saturation VBG Base Excess Sodium 134 L Potassium 3.6 Chloride 104 Carbon Dioxide 25 BUN 15 Creatinine 1.05 Estimated GFR > 60 BUN/Creatinine Ratio 14.3 Glucose 97 Lactate Calcium 8.2 L Magnesium Total Bilirubin AST ALT Alkaline Phosphatase Total Protein Albumin Globulin Albumin/Globulin Ratio Urine Color Urine Appearance Urine pH Ur Specific [place] Urine Protein Urine Glucose (UA) Urine Ketones Urine Occult Blood Urine Nitrate Urine Bilirubin Urine Urobilinogen Ur Leukocyte Esterase Urine RBC Urine WBC Ur Squamous Epith Cells Urine Bacteria Ur Culture Indicated? Vol Urine Centrifuged Nasal Screen MRSA (PCR) Ketones [facility] Medical History MDD (major depressive disorder), recurrent episode, moderate Generalized anxiety disorder Compression fracture Chronic lower back pain HTN (hypertension) Hypothyroidism Marijuana use History of MRSA infection History of pneumonia Blurry vision, bilateral Diabetic neuropathy Bipolar disorder with depression Nausea and vomiting Diabetes type 1, uncontrolled Diabetic gastroparesis Surgical History No pertinent past surgical history Family History Mother No known health problems Father No known health problems Social History household members: family Tobacco & Substance Use Smoking Status: Former smoker alcohol intake: current Assessment & Plan Assessment and plan (1) Bloody vomitus: Qualifiers: Nausea presence: with nausea Qualified Code(s): K92.0 - Hematemesis Status: Acute Plan We reviewed the risks and benefits of esophagogastroduodenoscopy and he would like to proceed. Time-Based Coding :: [TOTAL MINUTES] spent with patient and on the chart (including review of chart, obtaining history, exam, reviewing outside data, placing orders, documenting exam and treatment plan, and counseling patient) on [DATE].
--- NOTE | 2023-12-23 15:39 | SUR.OPER ---
EGD SCOPE [id number]
--- NOTE | 2023-12-23 16:26 | PM.OP.EGD ---
Operative Date/Time/Diagnoses Date of procedure: 12/23/23 Time of procedure: 16:26 Pre-op diagnosis: Hematemesis Post-op diagnosis: same Procedure & Clinicians Study performed: Esophagogastroduodenoscopy Same procedure as scheduled: Yes Surgeon: Yuri Jaramillo Procedure Notes Procedure in detail: Surgeon: Yuri Jaramillo MD Anesthesia: Rosanne Cannon MD A timeout was performed. A bite blocked was placed. The patient was positioned in the left lateral decubitus position. Anesthesia was administered. The endoscope was inserted through the bite block and passed through the esophagus and stomach and into the duodenum. The duodenal mucosa appeared normal. The scope was withdrawn into the duodenal bulb and no abnormalities were identified. The scope was withdrawn into the stomach. There was some cobbled appearance to the midportion of the gastric body and biopsies were taken with forceps. The rest of the stomach was normal. No blood was seen. The scope was retroflexed and no hiatal hernia was seen. The scope was withdrawn into the esophagus and the distal third of the esophagus appeared abnormal. The distal esophagus just above the GE junction appeared somewhat hypertrophic and biopsies were taken with the cold forceps. Additional biopsies were taken from the lower third of the esophagus which appeared to be covered with an exudate. The remainder of the esophagus was normal. The scope was withdrawn. The patient was awakened and brought to recovery. Sedation time: 9 minutes Findings: Distal esophagitis Post-procedure Disposition: PACU
[2023-12-23] MEDS: PANTOPRAZOLE DR 40 MG TABLET PO (21:09)
[2023-12-23] MEDS: diphenhydrAMINE 25 MG TABLET PO (21:09)
[2023-12-23] MEDS: GABAPENTIN 300 MG CAPSULE PO (21:11)
[2023-12-23] MEDS: SODIUM CHLORIDE 0.9% FLUSH 10 ML IV (21:11)
[2023-12-24] VITALS (35 sets, daily range): BP systolic 93–163; BP diastolic 56–107; PULSE 68–100; RESP 9–31; TEMP 36.7–37.2; O2SAT 96–98
[2023-12-24] MEDS: HYDROMORPHONE 0.5 MG INJ IV (04:28)
[2023-12-24] MEDS: ONDANSETRON 4 MG/2 ML INJ IV (04:28)
[2023-12-24] MEDS: PANTOPRAZOLE DR 40 MG TABLET PO ×2 (06:06→20:51)
[2023-12-24] MEDS: LEVOTHYROXINE 50 MCG TABLET PO (06:06)
[2023-12-24] MEDS: OXYCODONE IR 5 MG TABLET PO ×4 (08:35→20:51)
[2023-12-24] MEDS: METOCLOPRAMIDE 10 MG/2 ML INJ IV (08:35)
[2023-12-24] MEDS: FLUoxetine 10 MG CAPSULE PO (08:35)
[2023-12-24] MEDS: METOPROLOL ER 50 MG TABLET PO (08:36)
[2023-12-24] MEDS: INSULIN LISPRO 100 UNIT/ML 3ML VIAL SUBCUT ×2 (08:43→17:29)
[2023-12-24] MEDS: INSULIN GLARGINE 100 UNIT/ML 3ML PEN 20 UNIT SUBCUT (08:44)
[2023-12-24] MEDS: SODIUM CHLORIDE 0.9% FLUSH 10 ML IV ×2 (09:30→20:52)
--- NOTE | 2023-12-24 10:53 | CM.DPNOTE ---
[facility] care/[facility] Update Placed call to [facility] [place] P [phone] and was transferred to Kristal at the [place] office. [place] that this morning patient is financially approved for services and has been assigned to [facility] hospital team social work lecturer Salina (lina Jensen) Lynne P [phone]. Placed call to Salina; introduced self and role. Discussed patient briefly. Salina requests time to review client and will call back to discuss further. Salina does not need clinical at this time. Clinical is the most helpful the day of functional assessment, as it will be a 7 day look back period. CM team following closely. JW
[2023-12-24] MEDS: METOCLOPRAMIDE HCL 5 MG TABLET PO (12:14)
--- NOTE | 2023-12-24 15:38 | CM.DPNOTE ---
correction care/SARAI Update Spoke with [facility] hospital assigned worker Salina Bettencourtavis P [phone], [email or web address] about patient. Emailed clinical for her review. Salina explains that because she is a new hire she needs to complete the functional assessment with her Hospital Fellow present, making scheduling more difficult. Explained that patient readmits to the hospital frequently, making it difficult for patient to get a functional assessment at either the hospital or home. Salina states understanding and plans to discuss this with her Hospital Fellow. According to Salina; If the in hospital functional assessment is expected to be weeks out- it may be possible for patient to discharge home and the case could remain open with Salina, not need to be turfed to another [facility] worker. Salina plans to be in close touch with this CM team. GRETA
--- NOTE | 2023-12-24 17:51 | PM.PN.1 ---
Subjective Subjective Date Patient Seen: 12/24/23 Time Patient Seen: 08:05 Interval history: Patient reports ongoing abdominal pain, and sore throat. EGD on 12/23/2023 showed distal esophageal exudate, gastritis and no bleeding source evident. Exam Vital Signs (past 8 hours): - 12/24/23 10:00 12/24/23 10:30 12/24/23 11:00 Temperature Pulse Rate 77 77 75 Respiratory Rate 15 12 19 Blood Pressure Pulse Oximetry 97 97 97 Oxygen Flow Rate 12/24/23 11:30 12/24/23 12:00 12/24/23 12:06 Temperature Pulse Rate 69 68 74 Respiratory Rate 17 18 29 H Blood Pressure Pulse Oximetry 97 97 Oxygen Flow Rate 12/24/23 12:07 12/24/23 15:14 12/24/23 16:00 Temperature 98.8 F Pulse Rate 90 Respiratory Rate 24 Blood Pressure 93/56 L 133/91 H 133/91 H Pulse Oximetry 98 Oxygen Flow Rate 0 Oxygen Delivery Method Room Air Oxygen Flow Rate 0 Narrative Exam Narrative: NAD, alert and oriented, Withdrawn and chronically ill in appearance Oropharynx unremarkable, no droop. Neck supple, midline trachea, no adenopathy. Lungs clear, normal rate and effort. Heart regular, no murmur gallop or rub. Abdomen is soft, non distended and some epigastric tenderness. Extremities are free of edema. Skin is free of rash or lesions. Joints are not swollen or deformed. Judgment appears to be abnormal. Const General: ill appearing Orientation: awake Resp Effort & Inspection: normal respiratory effort Objective Labs 12/23/23 06:30 12/23/23 09:30 Labs: Laboratory Results - last 24 hr 12/24/23 04:40 Hemoglobin A1c 9.0 H [facility] Medical History MDD (major depressive disorder), recurrent episode, moderate Generalized anxiety disorder Compression fracture Chronic lower back pain HTN (hypertension) Hypothyroidism Marijuana use History of MRSA infection History of pneumonia Blurry vision, bilateral Diabetic neuropathy Bipolar disorder with depression Nausea and vomiting Diabetes type 1, uncontrolled Diabetic gastroparesis Surgical History No pertinent past surgical history Family History Mother No known health problems Father No known health problems Social History household members: family Smoking Status: Former smoker alcohol intake: current Assessment & Plan Assessment & Plan narrative: 1. DKA, present on admission and active. - resolved off insulin drip 12/23/2023 - poor long-term control with hemoglobin A1c 9.0% - on last discharge, 2 days ago, he was referred to endocrinology, had arranged glucometer 2. Reported hematemesis, present on admission and active. 3. Gastroparesis and vomiting, present on admission and active. 4. Depression and possibe bipolar disorder, present on admission and active. - Prozac, hydroxyzine, lorazepam 5. Hypothyroidism, present on admission and active. - levothyroxine 6. GERD, present on admission and active. - recent minor hematemesis from gastritis - PPI bid 7. HTN, present on admission and active. - Toprol XL 50 mg daily on hold, borderline hypotensive on admission - CKD stage 3B, at baseline 8. CKD, present on admission and active. PLAN: - home insulin with sliding scale coverage - continue PPI therapy b.i.d. - Social work will be investigating mechanisms for increased care, possibly placement as he was not able to take care of himself in his current living environment. They will need several days to get things in order for a possible alternative placement option for him. He appears to be unable to take care of himself and is independent situation. HANS: 12/25 DVT prophylaxis - SCDs IH PROFEE Charge codes Subsequent inpatient/observation care: 93033
[2023-12-24] MEDS: diphenhydrAMINE 25 MG TABLET PO (20:51)
[2023-12-24] MEDS: GABAPENTIN 300 MG CAPSULE PO (20:51)
[2023-12-24] MEDS: ZOLPIDEM 5 MG TABLET PO (21:48)
[2023-12-24] MEDS: OXYCODONE/ACETAMINOPHEN 5/325 TABLET 1 TAB PO (21:50)
[2023-12-25] MEDS: OXYCODONE IR 5 MG TABLET PO ×3 (02:36→10:59)
[2023-12-25] MEDS: OXYCODONE/ACETAMINOPHEN 5/325 TABLET 1 TAB PO ×2 (04:50→10:21)
[2023-12-25] MEDS: BENZOCAINE/MENTHOL 1 LOZ PKT 1 EACH PO (05:03)
[2023-12-25] MEDS: LEVOTHYROXINE 50 MCG TABLET PO (06:12)
[2023-12-25] MEDS: PANTOPRAZOLE DR 40 MG TABLET PO (06:13)
[2023-12-25] MEDS: METOCLOPRAMIDE 10 MG/2 ML INJ IV (06:19)
[2023-12-25] MEDS: SODIUM CHLORIDE 0.9% FLUSH 10 ML IV ×2 (06:23→08:27)
[2023-12-25 06:46] VITALS: BP 132/91; PULSE 83; O2SAT 97
[2023-12-25 06:48] VITALS: BP 132/91; PULSE 83; RESP 18; TEMP 37; O2SAT 97
[2023-12-25 07:40] VITALS: PULSE 86; O2SAT 98
[2023-12-25 07:43] VITALS: BP 147/97; PULSE 85; O2SAT 97
[2023-12-25 08:00] VITALS: BP 147/97; PULSE 85; RESP 12; TEMP 35.8; O2SAT 97
[2023-12-25] MEDS: GABAPENTIN 300 MG CAPSULE PO (08:24)
[2023-12-25] MEDS: METOPROLOL ER 50 MG TABLET PO (08:24)
[2023-12-25] MEDS: FLUoxetine 10 MG CAPSULE PO (08:24)
[2023-12-25] MEDS: METOCLOPRAMIDE HCL 5 MG TABLET PO ×2 (08:26→12:22)
[2023-12-25] MEDS: INSULIN LISPRO 100 UNIT/ML 3ML VIAL SUBCUT ×2 (08:28→12:22)
[2023-12-25] MEDS: INSULIN GLARGINE 100 UNIT/ML 3ML PEN 20 UNIT SUBCUT (08:28)
[2023-12-25 08:54] VITALS: BP 135/88; PULSE 77
--- NOTE | 2023-12-25 10:42 | CM.DPC ---
DCP Discharge Home Per MD, pt is medically stable to discharge home today and pt requested some pain medication and MD encouraged pt to discuss pain options with PCP and did not provide further pain medications today. SW met bedside with pt and explained role and pt confirms he is agreeable with either discharge home today or remaining in the hospital but confirms his grandma has upcoming surgery so pt's Aunt will be staying to help. SW discussed Medicaid SARAI and just assigned to [facility] for assessment and pt confirms he remains agreeable to this. [facility] might be able to still do the assessment at pt's home since he is discharging from the hospital. SW provided [facility] contact info to pt and strongly encouraged him to answer the phone when she calls or call her on Wednesday when back in the office. Pt acknowledges understanding. SW left msg for [facility] about pt discharge and strongly encouraging her to do assessment still even though pt not currently in the hospital due to his high risk of readmit and falling through the cracks. Pt confirms that his grandma can provide transport home today. RN updated. Shirley Anna, TILE ROOFER
--- NOTE | 2023-12-25 13:36 | P.DS_ITS ---
History of Present Illness History of Present Illness Date Patient Seen: 12/25/23 Time Patient Seen: 08:20 Date of Onset of Symptoms: 12/23/23 Chief complaint: cant stop vomiting 12 hours, sent by pcp Narrative: Narrative: From night doctor: 33 y/o with PMH of type 1 DM and diabetic gastroparesis, very frequent hospitalizations with intractable nausea and vomiting and DKA, last from 12/15-12/19, presented after 12 hours of intractable nausea and numerous episodes of vomiting. He presented with another episode of DKA, with high glucose, ketones, anion gap and normal pH, likely in part compensated by vomiting and tachypnea, started on antiemetics, insulin drip and IVFs. Additional information: recurrent symptoms of nausea, vomiting and pain. He did see mental health OP on the . The recommendations were to start fluoxetine 10 mg in the morning and continue Ambien 5 mg. It was unclear if they confirmed his diagnosis of bipolar or not. He did well for about a day but then developed recurrent pain and vomiting with hematemesis. His blood sugars then skyrocketed. He was running his pump, he does not feel that there is any functional problem with the pump. His daily insulin demand is about 33 units. Denies blood per rectum or melena. He was having epigastric abdominal pain. Discharge Providers Provider Date of admission: 12/22/23 23:29 Discharge Date: 12/25/23 Primary care physician: James Jung DO Discharge provider: Onesimo Faye MD Summary Hospital Course Discharge Diagnosis: 1. Diabetic ketoacidosis 2. Type 1 diabetes mellitus 3. Diabetic gastroparesis, with recurrent nausea and vomiting and hematemesis 4. Depression, possible bipolar disorder 5. Hypothyroidism 6. GERD 7. Hypertension 8. Chronic kidney disease Hospital Course: Patient was admitted and placed on insulin infusion, IV fluids, antiemetics, analgesics and maintained NPO. He improved over 1st 24 hours with resolution of diabetic ketoacidosis. He underwent upper endoscopy on 12/23/2023 which showed distal esophagitis with distal esophageal exudate and gastritis. He was treated with proton pump therapy. He was able to tolerate a diabetic diet and expressed interested in discharge home with outpatient follow-up. No other issues arose. Status at Discharge Cognitive/behavioral status at discharge: oriented Functional status at discharge: independent ambulation Overall status at discharge: patient is back to baseline Time Spent with Patient Time spent: Less than 30 minutes Exam Vital Signs (past 8 hours): - 12/25/23 06:46 12/25/23 06:46 12/25/23 06:48 Temperature 98.6 F Pulse Rate 83 83 Respiratory Rate 18 Blood Pressure 132/91 H 132/91 H Pulse Oximetry 97 97 Oxygen Delivery Method Oxygen Flow Rate 0 12/25/23 07:00 12/25/23 07:40 12/25/23 07:43 Temperature Pulse Rate 86 Respiratory Rate Blood Pressure 147/97 H Pulse Oximetry 98 Oxygen Delivery Method Room Air Oxygen Flow Rate 12/25/23 07:43 12/25/23 08:00 12/25/23 08:54 Temperature 96.4 F L Pulse Rate 85 85 77 Respiratory Rate 12 Blood Pressure 147/97 H 135/88 Pulse Oximetry 97 97 Oxygen Delivery Method Oxygen Flow Rate 0 Oxygen Delivery Method Room Air Oxygen Flow Rate 0 Narrative Exam Narrative: NAD, alert and oriented, Pleasant and chronically ill in appearance Neck supple, midline trachea, no adenopathy. Lungs clear, normal rate and effort. Heart regular, no murmur gallop or rub. Abdomen is soft, non distended, nontender. Extremities are free of edema. Skin is free of rash or lesions. Joints are not swollen or deformed. Judgment appears to be abnormal. Const General: ill appearing Orientation: awake Resp Effort & Inspection: normal respiratory effort Objective Labs 12/23/23 06:30 12/23/23 09:30 [facility] Medical History MDD (major depressive disorder), recurrent episode, moderate Generalized anxiety disorder Compression fracture Chronic lower back pain HTN (hypertension) Hypothyroidism Marijuana use History of MRSA infection History of pneumonia Blurry vision, bilateral Diabetic neuropathy Bipolar disorder with depression Nausea and vomiting Diabetes type 1, uncontrolled Diabetic gastroparesis Surgical History No pertinent past surgical history Family History Mother No known health problems Father No known health problems Social History household members: family Smoking Status: Former smoker alcohol intake: current Discharge Plan Discharge Plan Patient Disposition: Home Provider Discharge Comment: Followup with Dr. Jung 1 week Discharge orders & Medications Prescriptions: New pantoprazole 40 mg Tablet,Delayed Release (Dr/Ec) 40 mg PO 0700,2100 Qty: 60 0RF Continued fluoxetine 10 mg capsule 10 mg PO DAILY Qty: 30 2RF hydroxyzine HCl 10 mg tablet 10 mg PO TID PRN (Reason: anxiety) Qty: 84 0RF metoprolol succinate 50 mg tablet extended release 24 hr 50 mg PO DAILY levothyroxine 50 mcg tablet 50 mcg PO DAILY Qty: 90 1RF sucralfate [Carafate] 1 gram tablet 1 g PO BID Qty: 60 1RF lorazepam 1 mg tablet 1 mg PO BID PRN (Reason: nausea and vomiting) Qty: 30 1RF diphenhydramine HCl 25 mg Tablet 25 mg PO BEDTIME PRN (Reason: Insomnia) (DME) Extended [place] 3 mL Misc MISCELLANEOUS Rx Instructions: patient uses insulin pump zolpidem [Ambien] 5 mg Tablet 5 mg PO BEDTIME PRN (Reason: Insomnia) metoclopramide HCl 5 mg Tablet 5 mg PO AC 30 Days Qty: 90 0RF gabapentin 300 mg Capsule 300 mg PO BID 90 Days Qty: 180 0RF (DME) True Metrix Glucose Test Strip Strip MISCELLANEOUS 4XD Humulin R Regular U-100 Insuln 100 unit/mL solution See Rx Instructions .ROUTE .COMPLEX Rx Instructions: 90 unit via continuous subcutaneous infusion (DME) lancets [TRUEplus Lancets] 30 gauge misc MISCELLANEOUS 4XD (DME) blood-glucose meter [True Metrix Glucose Meter] Misc MISCELLANEOUS pantoprazole [Protonix] 40 mg Tablet,Delayed Release (Dr/Ec) 40 mg PO BID Follow up/Referrals: James Jung, [Primary Care Provider] - Diet/Activity/Treatments Diet: Carb-consistent/Diabetic Visit Report/Discharge Packet Stand Alone Forms: Patient Portal/API Discharge Data Primary Care Provider: James Jung Quality MIPS - Admit I confirm the patient?s Advance Care Plan is present, Code status is documented, Surrogate decision maker is in patient?s record [If Yes, STOP here]: Yes MIPS - Meds 'Current medications' to include all prescriptions, [id number] products, herbals, cannabis/cannabidiol products, and vitamin/mineral/dietary (nutritional) supplements. I have utilized all available resources to obtain, update, or review the patient?s current medications. [If Yes, STOP here]: Yes MIPS - DC The patient has a history of heart transplant or Left Ventricular Assist Device (LVAD). If yes, STOP here.: No The patient has current or prior documentation of left ventricular ejection fraction (LVEF) less than or equal to 40%, or moderate or severely depressed left ventricular systolic function.: No A. The patient was prescribed or already taking an Angiotensin-Converting Enzyme ([place]) Inhibitor, or Angiotensin Receptor Jo (ARB).: No B. The patient was prescribed or already taking a beta-jo. [If Yes to Both A & B, STOP here]: No Patient not prescribed/taking [place] or ARB, no reason given.: No Patient not prescribed/taking beta-jo, no reason given.: No PROFEE Charge Codes Discharge inpatient/observation: [id number]
== END 2023-12-25 13:29 | disposition home or self-care (01) ==
LOC: ED 22:34 → ICU 12-23 06:32 → AC 03-20 10:07 → ICU 03-20 10:07
PROVIDERS: Hospitalist; Surgery; Admitting Provider Internal Medicine; Emergency Provider Emergency Medicine; PCP Family Medicine; Referring Provider Emergency Medicine; Visit Provider Internal Medicine
PROC: 0DJ08ZZ Inspection of Upper Intestinal Tract, Via Natural or Artificial Opening Endoscopic (ICD-10-PCS; CPT 43239; principal; 2023-12-23 15:15)
DX: K22.10 Ulcer of esophagus without bleeding (principal); K29.50 Unspecified chronic gastritis without bleeding; E10.10 Type 1 diabetes mellitus with ketoacidosis without coma; E10.43 Type 1 diabetes mellitus with diabetic autonomic (poly)neuropathy; K31.84 Gastroparesis; F31.9 Bipolar disorder, unspecified; E03.9 Hypothyroidism, unspecified; K21.9 Gastro-esophageal reflux disease without esophagitis; E10.22 Type 1 diabetes mellitus with diabetic chronic kidney disease; I12.9 Hypertensive chronic kidney disease with stage 1 through stage 4 chronic kidney disease, or unspecified chronic kidney disease; N18.9 Chronic kidney disease, unspecified; F41.1 Generalized anxiety disorder; Z87.891 Personal history of nicotine dependence; Z96.41 Presence of insulin pump (external) (internal)
CPT/HCPCS: 43239; 36415; 80048; 80053; 81001; 82009; 82805; 82962; 83036; 83605; 83735; 85025; 87797; 93005; 93010; 96361; 96365; 96366; 96367; 96368; 96372; 96375; 96376; 99215; 99284; 99291; G0378; J0330; J1171; J1790; J1815; J2270; J2405; J2470; J2704; J2765; J3010; J7050

== ENCOUNTER 2023-12-28 10:58 | Emergency (ER) | payer OTHER, MEDICAID, SELFPAY ==
[2023-12-22 23:57] VITALS: BMI 22.7
[2023-12-28] VITALS (7 sets, daily range): BP systolic 70–148; BP diastolic 53–99; PULSE 87–115; RESP 17–24; TEMP 36.7; O2SAT 94–100; BMI 22.9
--- NOTE | 2023-12-28 11:43 | ED.NAVMDI ---
HPI - Nausea/Vomiting/Diarrhea General Chief complaint: Nausea/Vomiting/Diarrhea Stated complaint: Low blood pressure,N/V dizziness Time Seen by Provider: 12/28/23 11:42 Source: patient, RN notes reviewed and old records reviewed Mode of arrival: Wheelchair Limitations: no limitations History of Present Illness HPI Narrative: 33-year-old male history of type 1 insulin-dependent diabetes, diabetic gastroparesis, frequent hospitalizations did take DKA diabetic complications sent from primary care office where he was having follow up appointment was recently discharged after an inpatient stay was seen most recently on 12/21 and discharged on 12/24. Patient's only new discharge medication at that time was pantoprazole. Patient complains of chronic back pain and ongoing nausea and vomiting and lightheadedness. Patient states he is continued to feel unwell since he has been discharged, he has had some nausea and vomiting on and off. States it has been clear sometimes little bit of bile. No blood. He denies fevers or chills. He states little bit of chest discomfort no shortness of breath he describes some abdominal discomfort as well. States no diarrhea or constipation. No black or bloody stools. Denies any urinary issues. Denies any other symptoms currently. Patient states no issues with the pump and that it was on place currently. He states his sugars has been ?okay? since discharge. Reports allergies to aspirin, hydrocodone and ibuprofen. Was at his follow up appointment with Dr. Jung today who sent him here. Initially patient was tachycardic and hypotensive. Related Data Home Medications Medication Instructions Recorded Confirmed diphenhydramine HCl 25 mg tablet 25 mg PO BEDTIME PRN Insomnia 07/09/23 12/28/23 insulin pump syringe 3 mL 10/04/23 12/28/23 (Extended Elysian) metoprolol succinate 50 mg 50 mg PO DAILY 10/22/23 12/28/23 tablet,extended release 24 hr zolpidem 5 mg tablet (Ambien) 5 mg PO BEDTIME PRN Insomnia 11/05/23 12/28/23 blood sugar diagnostic (True 12/24/23 12/28/23 Metrix Glucose Test Strip) blood-glucose meter (True Metrix 12/24/23 12/28/23 Glucose Meter) insulin regular human 100 unit/mL See Rx Instructions .Route .COMPLEX 12/24/23 12/28/23 injection solution (Humulin R Regular U-100 Insulin) lancets 30 gauge (TRUEplus Lancets) 12/24/23 12/28/23 pantoprazole 40 mg tablet,delayed 40 mg PO BID 12/24/23 12/28/23 release (Protonix) Previous Rx's Medication Instructions Recorded levothyroxine 50 mcg tablet 50 mcg PO DAILY #90 tabs 10/22/23 hydroxyzine HCl 10 mg tablet 10 mg PO TID PRN anxiety #84 tabs 11/08/23 lorazepam 1 mg tablet 1 mg PO BID PRN nausea and 11/15/23 vomiting #30 tabs sucralfate 1 gram tablet (Carafate) 1 g PO BID #60 tabs 11/15/23 gabapentin 300 mg capsule 300 mg PO BID 90 days #180 caps 12/06/23 metoclopramide HCl 5 mg tablet 5 mg PO AC 30 days #90 tabs 12/06/23 fluoxetine 10 mg capsule 10 mg PO DAILY #30 caps 12/21/23 pantoprazole 40 mg tablet,delayed 40 mg PO 0700,2100 #60 tabs 12/25/23 release Allergies Allergy/AdvReac Type Severity Reaction Status Date / Time aspirin [ASPIRIN] Allergy Unknown MAKES ME Verified 12/28/23 10:40 GO DEAF hydrocodone [HYDROCODONE] AdvReac Intermediate VOMITING Verified 12/28/23 10:40 ibuprofen [IBUPROFEN] AdvReac Intermediate HURTS Verified 12/28/23 10:40 KIDNEYS Review of Systems Review of Systems ROS Unobtainable: All systems reviewed & are unremarkable except as noted in HPI and below Patient History Medical History Anxiety Migraines Headache Shoulder pain Osteoporosis Cataracts, bilateral Partial blindness GI bleeding Gastroparesis Gastric ulcer Chronic back pain MDD (major depressive disorder), recurrent episode, moderate Generalized anxiety disorder Compression fracture Chronic lower back pain HTN (hypertension) Hypothyroidism Marijuana use History of MRSA infection History of pneumonia Blurry vision, bilateral Diabetic neuropathy Bipolar disorder with depression Nausea and vomiting Diabetes type 1, uncontrolled Diabetic gastroparesis Surgical History No pertinent past surgical history Family History Mother No known health problems Father No known health problems Social History household members: family Smoking Status: Former smoker alcohol intake: current Smoking Status: Former smoker alcohol intake frequency: holidays/special occasions only Alcohol type: hard liquor Substance Use Type: marijuana Exam Narrative Exam Narrative: GENERAL: Alert and oriented x three, male in moderate distress. Patient appears pale. HEENT: Head normocephalic, atraumatic, EOMI, pupils reactive, face symmetric, moist mucous membranes NECK: Supple, full range of motion CARDIOVASCULAR: Slightly tachycardic Regular rate and rhythm without murmurs, rubs or gallops. No JVD. No edema bilateral lower extremities. RESPIRATORY: Breath sounds equal bilaterally, no wheezes rales or rhonchi. No tachypnea. ABDOMEN: Soft, nontender. Normoactive bowel sounds all 4 quadrants. No guarding or rebound, rigidity, no mass : No CVA tenderness EXTREMITIES: Normal range of motion, no clubbing or edema. Neurovascularly intact NEUROLOGICAL: Cranial nerves II through XII grossly intact. Moving all extremities SKIN: Warm, dry, no petechiae, no rashes or lesions. Initial Vital Signs Initial Vital Signs: Vital Signs Temperature 98.1 F 12/28/23 11:16 Pulse Rate 115 H 12/28/23 11:16 Respiratory Rate 24 12/28/23 11:16 Blood Pressure 70/53 L 12/28/23 11:16 Pulse Oximetry 99 12/28/23 11:16 Oxygen Delivery Method Room Air 12/28/23 11:16 Course Orders Ordered: ED Orders 12/28/23 11:26 EKG-12 Lead Stat 12/28/23 11:45 VBG [Venous Blood Gas] STAT 12/28/23 11:50 Complete Blood Count AUTO DIFF Stat Comprehensive Metabolic Panel Stat Ketones (Beta-Hydroxybutyrate) Stat Lactate (Lactic Acid) Stat Lipase Stat Procalcitonin Stat 12/28/23 11:54 Venous Blood Gas Routine 12/28/23 12:00 Chest [XR chest 1V] Stat Blood Culture Stat 12/28/23 14:16 UA Complete [Urinalysis and Microscopic] Stat Discontinued Medications Fentanyl (Fentanyl 100 Mcg/2 Ml Inj) 25 mcg IV NOW ONE Stop: 12/28/23 14:04 Last Admin: 12/28/23 14:22 Dose: 25 mcg Documented By: VALERI Sodium Chloride (Normal Saline 0.9%) 1,000 mls @ 1,000 mls/hr IV BOLUS ONE Stop: 12/28/23 12:49 Last Infusion: 12/28/23 13:16 Dose: Infused Documented By: Admin: 12/28/23 12:06 Dose: 1,000 mls/hr Documented By: REMI Acetaminophen (Ofirmev) 1,000 mg in 100 mls @ 400 mls/hr IV NOW ONE Stop: 12/28/23 12:42 Last Infusion: 12/28/23 13:16 Dose: Infused Documented By: Admin: 12/28/23 12:41 Dose: 400 mls/hr Documented By: SHADI Piperacillin Sod/Tazobactam (Sod 4.5 gm/ Sodium Chloride) 100 mls @ 200 mls/hr IV NOW ONE Stop: 12/28/23 12:29 Last Infusion: 12/28/23 13:55 Dose: Infused Documented By: Admin: 12/28/23 13:17 Dose: 200 mls/hr Documented By: VALERI Metoclopramide HCl (Metoclopramide 10 Mg/2 Ml Inj) 10 mg IV NOW ONE Stop: 12/28/23 14:15 Last Admin: 12/28/23 14:23 Dose: Not Given Documented By: VALERI Ondansetron HCl (Ondansetron 4 Mg/2 Ml Inj) 4 mg IV NOW PRN PRN Reason: Nausea And Vomiting Ondansetron HCl (Ondansetron 4 Mg Odt) 4 mg PO NOW PRN PRN Reason: Nausea And Vomiting Pantoprazole Sodium (Pantoprazole 40 Mg Vial) 80 mg IV NOW ONE Stop: 12/28/23 11:51 Last Admin: 12/28/23 12:28 Dose: 80 mg Documented By: SHADI Vital Signs Vital signs: Vital Signs - 8 hr 12/28/23 11:55 12/28/23 13:08 12/28/23 13:21 Temperature Pulse Rate 110 H 106 H 99 H Respiratory Rate 17 20 18 Blood Pressure 120/84 148/99 H Pulse Oximetry 100 100 100 Oxygen Delivery Method Room Air Room Air Room Air 12/28/23 13:55 12/28/23 15:01 12/28/23 16:58 Temperature 98.1 F Pulse Rate 93 H 88 87 Respiratory Rate 20 18 18 Blood Pressure 137/93 H 126/88 112/71 Pulse Oximetry 99 97 94 Oxygen Delivery Method Room Air Room Air Room Air MDM - Nausea/Vomiting/Diarrhea Lab Data 12/28/23 11:50 12/28/23 11:50 Labs: Lab Results 12/28/23 12/28/23 12/28/23 Range/Units 11:50 11:54 14:03 WBC 13.1 H (4.5-11.0) X10^3/uL RBC 4.86 (4.5-5.9) X10^6/uL Hgb 11.5 L (13.5-17.5) g/dL Hct 35.7 L (41-53) % MCV 73.5 L (80-100) fL MCH 23.6 L (26-34) PG MCHC 32.2 (30-36) % RDW 17.0 H (11.6-14.8) % Plt Count 499 H (150-400) X10^3/uL Neut % (Auto) 73.1 (50-75) % Lymph % (Auto) 17.7 L (25-40) % [place] % (Auto) 8.4 (3-14) % Eos % (Auto) 0.2 L (2-4) % Baso % (Auto) 0.6 (0-2) % Neut # (Auto) 9600 H (9652-3037) /uL Lymph # (Auto) 2300 (2748-3129) /uL [place] # (Auto) 1100 H (0-900) /uL Eos # (Auto) 0 (0-450) /uL Baso # (Auto) 100 (0-100) /uL VBG pH 7.62 H (7.33-7.43) VBG pCO2 20.6 L (45-50) mmHg VBG pO2 16 L (35-45) mmHg VBG HCO3 21 L (24-28) mmol/L VBG Total CO2 20 L (24-29) mmol/L VBG O2 Saturation 34 L (70-75) % VBG Base Excess 1.6 (0-4) mmol/L Sodium 132 L (137-145) mmol/L Potassium 3.8 (3.4-5.1) mmol/L Chloride 96 L (98-107) mmol/L Carbon Dioxide 21 L (22-32) mmol/L BUN 18 (9-20) mg/dL Creatinine 1.39 H (0.66-1.25) mg/dL Estimated GFR > 60 (>60) mL/min BUN/Creatinine Ratio 12.9 (6-22) Glucose 291 H D (70-100) mg/dL Lactate 3.5 H 1.5 (0.7-2.1) mmol/L Calcium 10.2 (8.4-10.2) mg/dL Total Bilirubin 0.8 (0.2-1.3) mg/dL AST 27 (17-59) IU/L ALT 23 (<50) IU/L Alkaline Phosphatase 113 (38-126) U/L Total Protein 7.9 (6.3-8.2) g/dL Albumin 4.5 (3.5-5.0) g/dL Globulin 3.4 (1.7-4.1) g/dL Albumin/Globulin Ratio 1.3 (1.0-2.8) Lipase 74 (23-300) U/L Procalcitonin 0.053 (<0.5) ng/mL Urine Color Urine Appearance Urine pH (4.5-8.0) Ur Specific [place] (1.000-1.035) Urine Protein (Negative) Urine Glucose (UA) (Negative) g/dL Urine Ketones (NEGATIVE) Urine Occult Blood (Negative) Urine Nitrate (Negative) Urine Bilirubin (NEGATIVE) Urine Urobilinogen (0.2) E.U./dL Ur Leukocyte Esterase (NEGATIVE) Urine RBC (0-5/HPF) Urine WBC (0-5/HPF) Ur Squamous Epith Cells (0-5/HPF) Urine Bacteria (None) Ur Culture Indicated? Vol Urine Centrifuged Ketones 1.49 H (<0.27) mmol/L 12/28/23 Range/Units 14:16 WBC (4.5-11.0) X10^3/uL RBC (4.5-5.9) X10^6/uL Hgb (13.5-17.5) g/dL Hct (41-53) % MCV (80-100) fL MCH (26-34) PG MCHC (30-36) % RDW (11.6-14.8) % Plt Count (150-400) X10^3/uL Neut % (Auto) (50-75) % Lymph % (Auto) (25-40) % [place] % (Auto) (3-14) % Eos % (Auto) (2-4) % Baso % (Auto) (0-2) % Neut # (Auto) (6290-6297) /uL Lymph # (Auto) (9411-7595) /uL [place] # (Auto) (0-900) /uL Eos # (Auto) (0-450) /uL Baso # (Auto) (0-100) /uL VBG pH (7.33-7.43) VBG pCO2 (45-50) mmHg VBG pO2 (35-45) mmHg VBG HCO3 (24-28) mmol/L VBG Total CO2 (24-29) mmol/L VBG O2 Saturation (70-75) % VBG Base Excess (0-4) mmol/L Sodium (137-145) mmol/L Potassium (3.4-5.1) mmol/L Chloride (98-107) mmol/L Carbon Dioxide (22-32) mmol/L BUN (9-20) mg/dL Creatinine (0.66-1.25) mg/dL Estimated GFR (>60) mL/min BUN/Creatinine Ratio (6-22) Glucose (70-100) mg/dL Lactate (0.7-2.1) mmol/L Calcium (8.4-10.2) mg/dL Total Bilirubin (0.2-1.3) mg/dL AST (17-59) IU/L ALT (<50) IU/L Alkaline Phosphatase (38-126) U/L Total Protein (6.3-8.2) g/dL Albumin (3.5-5.0) g/dL Globulin (1.7-4.1) g/dL Albumin/Globulin Ratio (1.0-2.8) Lipase (23-300) U/L Procalcitonin (<0.5) ng/mL Urine Color Yellow Urine Appearance Clear Urine pH 8.5 H (4.5-8.0) Ur Specific [place] 1.015 (1.000-1.035) Urine Protein Trace H (Negative) Urine Glucose (UA) 3+ H (Negative) g/dL Urine Ketones 2+ H (NEGATIVE) Urine Occult Blood Negative (Negative) Urine Nitrate Negative (Negative) Urine Bilirubin Negative (NEGATIVE) Urine Urobilinogen 0.2 (0.2) E.U./dL Ur Leukocyte Esterase Negative (NEGATIVE) Urine RBC None seen (0-5/HPF) Urine WBC None seen (0-5/HPF) Ur Squamous Epith Cells None seen (0-5/HPF) Urine Bacteria None seen (None) Ur Culture Indicated? Cult not indicated Vol Urine Centrifuged 10ml (spun) Ketones (<0.27) mmol/L Point of Care Testing Glucose POC 245 Imaging Data Chest x-ray: Radiologist's Impression: [address] [address] XRay Report Signed Patient: Valentin Noble MR#: [id number] : 1990 Acct:[id number] Age/Sex: 33 / M Date of Service: 12/28/23 Loc: ED Accession Number: [id number] Procedure: XR chest 1V Ordering Provider: Monika Baugh D.O. PROCEDURE: XR CHEST 1V INDICATIONS: n/v, hx DKA TECHNIQUE: One view of the chest was acquired. COMPARISON: [facility], CR, XR CHEST 1V, 12/16/2023, 20:03. [facility], CR, XR CHEST 1V, 11/27/2023, 7:36. FINDINGS: Surgical changes and devices: None. Lungs and pleura: Lungs are clear. No pleural effusions or pneumothorax. Mediastinum: Mediastinal contours appear normal. Heart size is normal. Bones and chest wall: No suspicious bony lesions. Overlying soft tissues appear unremarkable. IMPRESSION: No acute cardiopulmonary abnormality is seen. Dictated by: Edgar Rodriguez M.D. on 12/28/2023 at 12:30 Approved by: Edgar Rodriguez M.D. on 12/28/2023 at 12:30 ECG Data Attestation: I personally reviewed and interpreted this ECG as follows: Interpretation: Sinus tachycardia, left anterior fascicular block rate of 112 NE 142 QRS is 74 QTC of 472. MDM Narrative Medical decision making narrative: 33-year-old male known insulin-dependent diabetic with frequent DKA presents tachycardic hypotensive initially did have some improvement while lying flat but still tachycardic. Point of care glucose is 303. Labs labs show white count of 13.1 was 11.4 on most recent visit, hemoglobin is 11.5 patient's microcytic but consistent with priors platelets are 499. Coags are negative, sodium is 132 potassium 3.8 chloride 96 with a CO2 of 21 BUN 18 creatinine of 1.39 glucose is 291 lactate is 3.5 calcium 10.2 with normal LFTs lipase of 74. Procalcitonin 0.053 with an anion gap of 15. Lactate was repeated in his 1.5. EKG sinus tach UA shows pH 8.5 trace protein 3+ glucose 2+ ketones, no other signs of infection. VBG shows a pH 7.616, pCO2 of 20 PO2 of 16 with a bicarb of 21 appears to be metabolic Chest x-ray shows no acute change Patient received 1 L of fluids, acetaminophen and pantoprazole 80 mg. Repeat glucose after 1 L is 245. Patient is still slightly tachycardic heart rates improved into the 90s blood pressure is significantly improved. Discussed with hospitalist who is aware of patient was recently discharged on Wednesday. Recommends Reglan, hydration and oral challenge if tolerating can discharge home patient is in DKA today he is alkalotic. Patient had oral challenge here in the department he is tolerating well nausea is improved. Did have some complaint of back pain has not pain medication. Patient's pain options are somewhat limited initially had Tylenol but did not find that helpful. Vitals are appropriate on rechecked. Patient able to tolerate oral challenge here in the department. He still feels a little nauseated he feels comfortable returning home. Has had antinausea medication in the past but defers prescription today. Discharge Plan Departure Patient Disposition: Home Clinical Impression: Dehydration, Hyperglycemia Activity Restrictions/Additional Instructions: Please follow up with your physician. Continue your home medications as prescribed. Please return for new or worsening changes, fevers, new chest pain, persistent vomiting, lightheadedness or passing out, new or worsening abdominal back or flank pain, difficulty with urination, black or bloody stools or other new or concerning changes. Prescriptions: No Action fluoxetine 10 mg capsule 10 mg PO DAILY Qty: 30 2RF hydroxyzine HCl 10 mg tablet 10 mg PO TID PRN (Reason: anxiety) Qty: 84 0RF metoprolol succinate 50 mg tablet extended release 24 hr 50 mg PO DAILY levothyroxine 50 mcg tablet 50 mcg PO DAILY Qty: 90 1RF sucralfate [Carafate] 1 gram tablet 1 g PO BID Qty: 60 1RF lorazepam 1 mg tablet 1 mg PO BID PRN (Reason: nausea and vomiting) Qty: 30 1RF diphenhydramine HCl 25 mg Tablet 25 mg PO BEDTIME PRN (Reason: Insomnia) (DME) Extended Elysian 3 mL Misc MISCELLANEOUS Rx Instructions: patient uses insulin pump zolpidem [Ambien] 5 mg Tablet 5 mg PO BEDTIME PRN (Reason: Insomnia) metoclopramide HCl 5 mg Tablet 5 mg PO AC 30 Days Qty: 90 0RF gabapentin 300 mg Capsule 300 mg PO BID 90 Days Qty: 180 0RF (DME) True Metrix Glucose Test Strip Strip MISCELLANEOUS 4XD Humulin R Regular U-100 Insuln 100 unit/mL solution See Rx Instructions .ROUTE .COMPLEX Rx Instructions: 90 unit via continuous subcutaneous infusion (DME) lancets [TRUEplus Lancets] 30 gauge misc MISCELLANEOUS 4XD (DME) blood-glucose meter [True Metrix Glucose Meter] Misc MISCELLANEOUS pantoprazole [Protonix] 40 mg Tablet,Delayed Release (Dr/Ec) 40 mg PO BID pantoprazole 40 mg Tablet,Delayed Release (Dr/Ec) 40 mg PO 0700,2100 Qty: 60 0RF Referrals: James Jung DO [Primary Care Provider] - Stand Alone Forms: Patient Portal/API/Survey
[2023-12-28 11:58] LABS: Base Excess VBG 1.6 mmol/L (0-4); HCO3 VBG 21 mmol/L (24-28); Oxygen Saturation VBG 34 % (70-75); PCO2 VBG 20.6 mmHg (45-50); PO2 VBG 16 mmHg (35-45); Total CO2 VBG 20 mmol/L (24-29); pH VBG 7.62 (7.33-7.43)
--- NOTE | 2023-12-28 12:00 | DI.RAD.S_ITS ---
PROCEDURE: XR CHEST 1V INDICATIONS: n/v, hx DKA TECHNIQUE: One view of the chest was acquired. COMPARISON: [facility], CR, XR CHEST 1V, 12/16/2023, 20:03. [facility], CR, XR CHEST 1V, 11/27/2023, 7:36. FINDINGS: Surgical changes and devices: None. Lungs and pleura: Lungs are clear. No pleural effusions or pneumothorax. Mediastinum: Mediastinal contours appear normal. Heart size is normal. Bones and chest wall: No suspicious bony lesions. Overlying soft tissues appear unremarkable. IMPRESSION: No acute cardiopulmonary abnormality is seen. Dictated by: Edgar Rodriguez M.D. on 12/28/2023 at 12:30 Approved by: Edgar Rodriguez M.D. on 12/28/2023 at 12:30
--- NOTE | 2023-12-28 12:01 | EKG_ITS ---
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
[2023-12-28] MEDS: SODIUM CHLORIDE 0.9% 1,000 ML 1000 ML IV (12:06)
[2023-12-28 12:09] LABS: Add Manual Diff / Slide Review NO; Basophils Absolute Auto 100 /uL (0-100); Basophils Percent Auto 0.6 % (0-2); Eosinophils Absolute Auto 0 /uL (0-450); Eosinophils Percent Auto 0.2 % (2-4); Hematocrit 35.7 % (41-53); Hemoglobin 11.5 g/dL (13.5-17.5); Lymphocytes Absolute Auto 2300 /uL (1100-4500); Lymphocytes Percent Auto 17.7 % (25-40); Mean Corpuscular HGB Conc 32.2 % (30-36); Mean Corpuscular Hemoglobin 23.6 PG (26-34); Mean Corpuscular Volume 73.5 fL (80-100); Monocytes Absolute Auto 1100 /uL (0-900); Monocytes Percent Auto 8.4 % (3-14); Neutrophils Absolute Auto 9600 /uL (1500-7000); Neutrophils Percent Auto 73.1 % (50-75); Platelet Count 499 X10^3/uL (150-400); Red Blood Cell Count 4.86 X10^6/uL (4.5-5.9); White Blood Cell Count 13.1 X10^3/uL (4.5-11.0)
[2023-12-28 12:23] LABS: Alanine Aminotransferase 23 IU/L (<50); Albumin 4.5 g/dL (3.5-5.0); Albumin Globulin Ratio 1.3 (1.0-2.8); Alkaline Phosphatase 113 U/L (38-126); Aspartate Aminotransferase 27 IU/L (17-59); BUN Creatinine Ratio 12.9 (6-22); Bilirubin Total 0.8 mg/dL (0.2-1.3); Blood Urea Nitrogen 18 mg/dL (9-20); Calcium 10.2 mg/dL (8.4-10.2); Carbon Dioxide 21 mmol/L (22-32); Chloride 96 mmol/L (98-107); Estimated Glomerular Filt Rate > 60 mL/min (>60); Globulin 3.4 g/dL (1.7-4.1); Glucose 291 mg/dL (70-100); HEMOLYSIS < 15 (0-50); Lipase 74 U/L (23-300); Potassium 3.8 mmol/L (3.4-5.1); Sodium 132 mmol/L (137-145); Total Protein 7.9 g/dL (6.3-8.2)
[2023-12-28 12:26] LABS: Lactate (Lactic Acid) 3.5 mmol/L (0.7-2.1)
[2023-12-28] MEDS: PANTOPRAZOLE 40 MG VIAL 80 MG IV (12:28)
[2023-12-28 12:33] LABS: Ketones (Beta-Hydroxybutyrate) 1.49 mmol/L (<0.27)
[2023-12-28 12:40] LABS: Procalcitonin 0.053 ng/mL (<0.5)
[2023-12-28] MEDS: ACETAMINOPHEN IV 1,000 MG/100 ML VIAL 400 MG IV (12:41)
--- NOTE | 2023-12-28 13:09 | PC.NURSE ---
Pt reports having back pain. Pt also states he was at his PCP earlier when he was noted to have low bp and elevated hr. He states he walked into the PCP--pt states he did not feel any different tahn normal.
[2023-12-28] MEDS: PIPERACILLIN/TAZO 4.5 GM in SODIUM CHLORIDE 0.9% 100 ML IV (13:17)
[2023-12-28 13:42] LABS: Reflexed Lactate in 2 Hours Y
--- NOTE | 2023-12-28 14:03 | PC.NURSE ---
Provider Mank aware of multiple attempts to get second set of blood cultures. This RN checks with lab and they are unable to get second set. This RN had attempted to draw of both lines with no success. Provider is aware.
[2023-12-28] MEDS: fentaNYL 100 MCG/2 ML INJ 25 MCG IV (14:22)
[2023-12-28 14:25] LABS: Lactate 2HR (Lactic Acid Rflx) 1.5 mmol/L (0.7-2.1)
[2023-12-28 14:28] LABS: Appearance Urine UA CLEAR; Bilirubin Urine UA NEGATIVE (NEGATIVE); Color Urine UA YELLOW; Glucose Urine UA 3+ g/dL (Negative); Ketones Urine UA 2+ (NEGATIVE); Leukocyte Esterase Urine UA NEGATIVE (NEGATIVE); Nitrite Urine UA NEGATIVE (Negative); Occult Blood Urine UA NEGATIVE (Negative); Protein Urine UA TRACE (Negative); Specific Gravity Urine UA 1.015 (1.000-1.035); Urobilinogen Urine UA 0.2 E.U./dL (0.2); pH Urine UA 8.5 (4.5-8.0)
[2023-12-28 14:40] LABS: Bacteria Urine None Seen; RBC Urine None Seen (0-5/HPF); Squamous Epithelial Cell Urine None Seen (0-5/HPF); Urine Volume 10mL (spun); WBC Urine None Seen (0-5/HPF)
[2023-12-28 14:41] LABS: Culture Indicated Urine Cult Not Indicated
== END 2023-12-28 15:58 | disposition home or self-care (01) ==
PROVIDERS: Emergency Provider Emergency Medicine; PCP Family Medicine
DX: E10.65 Type 1 diabetes mellitus with hyperglycemia (principal); Z79.4 Long term (current) use of insulin; E86.0 Dehydration; M54.9 Dorsalgia, unspecified; R11.2 Nausea with vomiting, unspecified; R00.0 Tachycardia, unspecified; I44.4 Left anterior fascicular block; I95.9 Hypotension, unspecified; R10.9 Unspecified abdominal pain; Z79.899 Other long term (current) drug therapy
CPT/HCPCS: 36415; 71045; 80053; 81001; 82009; 82805; 82962; 83605; 83690; 84145; 85025; 87040; 93005; 96365; 96367; 96375; 99284; 99285; J0134; J2470; J2543; J3010

== ENCOUNTER 2023-12-29 19:17 | Observation (INO) | payer OTHER, MEDICAID, SELFPAY ==
[2023-12-22 23:57] VITALS: BMI 22.7
[2023-12-29 19:24] VITALS: BP 149/86; PULSE 109; RESP 18; TEMP 36.8; O2SAT 100; BMI 22.9
[2023-12-29] MEDS: ONDANSETRON 4 MG/2 ML INJ IV (19:37)
[2023-12-29 19:40] LABS: Add Manual Diff / Slide Review NO; Basophils Absolute Auto 100 /uL (0-100); Basophils Percent Auto 0.9 % (0-2); Eosinophils Absolute Auto 100 /uL (0-450); Eosinophils Percent Auto 0.5 % (2-4); Hematocrit 34.1 % (41-53); Hemoglobin 10.8 g/dL (13.5-17.5); Lymphocytes Absolute Auto 2000 /uL (1100-4500); Lymphocytes Percent Auto 20.1 % (25-40); Mean Corpuscular HGB Conc 31.7 % (30-36); Mean Corpuscular Hemoglobin 23.5 PG (26-34); Mean Corpuscular Volume 74.1 fL (80-100); Monocytes Absolute Auto 900 /uL (0-900); Monocytes Percent Auto 9.3 % (3-14); Neutrophils Absolute Auto 7000 /uL (1500-7000); Neutrophils Percent Auto 69.2 % (50-75); Platelet Count 495 X10^3/uL (150-400); Red Blood Cell Count 4.61 X10^6/uL (4.5-5.9); Red Cell Distribution Width 17.3 % (11.6-14.8); White Blood Cell Count 10.1 X10^3/uL (4.5-11.0)
[2023-12-29 19:49] LABS: Alanine Aminotransferase 27 IU/L (<50); Albumin 4.5 g/dL (3.5-5.0); Albumin Globulin Ratio 1.4 (1.0-2.8); Alkaline Phosphatase 109 U/L (38-126); Aspartate Aminotransferase 29 IU/L (17-59); BUN Creatinine Ratio 15.3 (6-22); Bilirubin Total 0.8 mg/dL (0.2-1.3); Blood Urea Nitrogen 19 mg/dL (9-20); Calcium 9.8 mg/dL (8.4-10.2); Carbon Dioxide 15 mmol/L (22-32); Chloride 101 mmol/L (98-107); Estimated Glomerular Filt Rate > 60 mL/min (>60); Globulin 3.2 g/dL (1.7-4.1); Glucose 205 mg/dL (70-100); HEMOLYSIS < 15 (0-50); Lipase 46 U/L (23-300); Potassium 3.9 mmol/L (3.4-5.1); Sodium 135 mmol/L (137-145); Total Protein 7.7 g/dL (6.3-8.2)
--- NOTE | 2023-12-29 20:08 | RT ---
VBG done at 193 for pt Valentin Noble ([id number]). Results: pH 7.572, PCO2 19.4, PO2 22.2, Bicarbonate 17.9, BE -2.2, SaO2 51.5, TCO2 17.0. Done on . All results reported to Dr. Stearns at 193 on 12/29/23. These results were entered in the wrong chart, RN aware.
[2023-12-29] MEDS: METOCLOPRAMIDE 10 MG/2 ML INJ IV (20:12)
[2023-12-29] MEDS: INSULIN DRIP PREMIX 100 UNIT/100 ML PLAST..BAG 7.258 UNIT IV (20:12)
[2023-12-29] MEDS: SODIUM CHLORIDE 0.9% 1,000 ML 1000 ML IV ×2 (20:12→21:15)
[2023-12-29 20:42] LABS: Lactate (Lactic Acid) 4.2 mmol/L (0.7-2.1)
[2023-12-29 20:44] LABS: Ketones (Beta-Hydroxybutyrate) 3.32 mmol/L (<0.27)
--- NOTE | 2023-12-29 20:48 | PC.NURSE ---
patient is laying in bed with the blanket over his head. he becomes relaxed and his 02 saturation drops to 88% on RA. He is reminded to take some deep breathes and when he does his o2 saturation increases to 99% on RA.
[2023-12-29 20:49] LABS: Ammonia (NH3) < 9 umol/L (9-30)
[2023-12-29 20:56] VITALS: BP 172/95; PULSE 94; RESP 12; O2SAT 98
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
[2023-12-29] MEDS: INSULIN GLARGINE 100 UNIT/ML 3ML PEN 30 UNIT SUBCUT (21:23)
--- NOTE | 2023-12-29 21:47 | PC.NURSE ---
blood sugar 140s regular insulin held
[2023-12-29 22:04] LABS: Reflexed Lactate in 2 Hours Y
[2023-12-29 22:08] LABS: Appearance Urine UA CLEAR; Bilirubin Urine UA 1+ (NEGATIVE); Color Urine UA YELLOW; Glucose Urine UA 3+ g/dL (Negative); Ketones Urine UA 2+ (NEGATIVE); Leukocyte Esterase Urine UA NEGATIVE (NEGATIVE); Nitrite Urine UA NEGATIVE (Negative); Occult Blood Urine UA NEGATIVE (Negative); Protein Urine UA TRACE (Negative); Urobilinogen Urine UA 0.2 E.U./dL (0.2); pH Urine UA 5.5 (4.5-8.0)
[2023-12-29] MEDS: ACETAMINOPHEN IV 1,000 MG/100 ML VIAL 400 MG IV (22:08)
[2023-12-29 22:16] LABS: Bacteria Urine Occasional (0-1); Culture Indicated Urine Cult Not Indicated; Ictotest Urine Negative (Negative); RBC Urine 0-1/HPF (0-5/HPF); Squamous Epithelial Cell Urine 0-1 /HPF (0-5/HPF); Urine Volume 10mL (spun); WBC Urine 0-1/HPF (0-5/HPF)
[2023-12-29 22:17] LABS: Lactate 2HR (Lactic Acid Rflx) 1.5 mmol/L (0.7-2.1)
[2023-12-29 22:48] LABS: Adenovirus Not Detected (Not Detect); B. parapertussis Not Detected (Not Detecte); Bordetella pertussis Not Detected (Not Detect); Chlamydophila pneumoniae Not Detected (Not Detect); Coronavirus 229E Not Detected (Not Detect); Coronavirus HKU1 Not Detected (Not Detect); Coronavirus NL 63 Not Detected (Not Detect); Coronavirus OC43 Not Detected (Not Detect); Human Metapneumovirus Not Detected (Not Detect); Human Rhinovirus/Enterovirus Not Detected (Not Detect); Influenza A Not Detected (Not Detect); Influenza B Not Detected (Not Detect); Mycoplasma pneumoniae Not Detected (Not Detect); Parainfluenza Virus 1 Not Detected (Not Detect); Parainfluenza Virus 2 Not Detected (Not Detect); Parainfluenza Virus 3 Not Detected (Not Detect); Parainfluenza Virus 4 Not Detected (Not Detect); Respiratory Syncytial Virus Not Detected (Not Detect); SARS- CoV-2 Not Detected (Not Detecte)
[2023-12-29] MEDS: PANTOPRAZOLE 40 MG VIAL IV (22:52)
--- NOTE | 2023-12-29 22:55 | DI.CT.S_ITS ---
PROCEDURE: CT ABDOMEN PELVIS W CON INDICATIONS: on going ab pain TECHNIQUE: After the administration of intravenous contrast, axial sections acquired from the lung bases to the pubic symphysis. Coronal and sagittal reformats were performed. For radiation dose reduction, the following was used: automated exposure control, adjustment of mA and/or kV according to patient size. COMPARISON: [facility], CT, CT ABDOMEN PELVIS W CON, 07/10/2023, 12:18. FINDINGS: Image quality: Diagnostic. Lower Chest: Moderate circumferential wall thickening of the distal esophagus and tiny hiatal hernia. Mild mucosal thickening circumferentially. Clear lung bases. Normal size heart. ABDOMEN: Liver: No solid mass. Gallbladder: No wall thickening or calcified stones. Biliary ducts: No biliary dilation. Pancreas: Diminutive pancreas. No peripancreatic inflammation. Spleen: Size is within normal limits. Adrenal Glands: No adrenal nodules. Kidneys and Ureters: Symmetric renal enhancement. No hydronephrosis or nephrolithiasis. Moderate right hydroureter. No calcifications or urothelial thickening. Stomach and Bowel: Stomach and small bowel loops are normal caliber. Normal appendix. Normal colon. Peritoneum: No abnormal intraperitoneal fluid. No free air. Ventral Wall: No significant ventral hernia. Abdominal Nodes: No retroperitoneal or mesenteric adenopathy by size criteria. Vessels: The abdominal aorta, IVC, and portal vein are of normal caliber. PELVIS: Pelvic Organs: Normal. Bladder: Distended urinary bladder without wall thickening or intraluminal gas. Pelvic Nodes: No enlarged lymph nodes. Miscellaneous: No inguinal hernias are seen. Bones: Chronic appearing L1 compression fracture, mild. IMPRESSION: Distended urinary bladder probably causing mild right hydroureter. No CT evidence acute urinary tract infection. Distal esophageal wall and mucosal thickening. Correlate with history of reflux, esophagitis or dysphagia. Dictated by: Diana Jaquez M.D. on 12/29/2023 at 23:29 Approved by: Diana Jaquez M.D. on 12/29/2023 at 23:38
[2023-12-29 23:06] VITALS: BMI 22.4
[2023-12-29 23:45] VITALS: BP 155/109; PULSE 112; RESP 24; TEMP 36.9; O2SAT 100
[2023-12-30] MEDS: SODIUM CHLORIDE 0.9% 1,000 ML 100 ML IV ×2 (00:29→10:12)
[2023-12-30 00:31] VITALS: BP 155/109; PULSE 112
[2023-12-30] MEDS: HYDROMORPHONE 0.5 MG INJ IV ×3 (00:31→12:33)
[2023-12-30] MEDS: PROCHLORPERAZINE 10 MG/2 ML VIAL 5 MG IV (00:31)
--- NOTE | 2023-12-30 02:37 | PC.ADMIT ---
Addendum entered by Slime Hardy R.N. 12/30/23 02:42: Pt has insulin infusion pump, it is deactivated. Original Note: [email or web address] [place] Admission Note: Admitted to AC unit at 23:45, transferred to bed with SBA. NS @ 100/hr. BS 111 at admit. Oriented to room and call light. Call light within reach and bed alarm on. The patient,Valentin Noble,33 y/o, was given written information regarding hospital policies, unit procedures and contact persons. Patient's smoking status: Former smoker. Vital Signs - 8 hr 12/29/23 19:24 12/29/23 20:56 12/29/23 23:45 Temperature 98.2 F 98.4 F Pulse Rate 109 H 94 H 112 H Respiratory Rate 18 12 24 Blood Pressure 149/86 H 172/95 H 155/109 H Pulse Oximetry 100 98 100 Oxygen Delivery Method Room Air Room Air Oxygen Flow Rate 0 12/30/23 00:31 Temperature Pulse Rate 112 H Respiratory Rate Blood Pressure 155/109 H Pulse Oximetry Oxygen Delivery Method Oxygen Flow Rate
[2023-12-30 04:00] VITALS: BP 138/96; PULSE 95; RESP 12; TEMP 36.5; O2SAT 97
[2023-12-30] MEDS: ONDANSETRON 4 MG/2 ML INJ IV (04:41)
[2023-12-30] MEDS: OXYCODONE IR 5 MG TABLET PO ×4 (04:41→20:26)
--- NOTE | 2023-12-30 07:18 | PM.HP.1 ---
History of Present Illness History of Present Illness Chief complaint: Vomiting Narrative: 33 year-old male with past medical history of insulin dependent diabetes, diabetic Gastroparesis, recurrent DKA and hypothyroidism presents with nausea, vomiting and abdominal pain. Of note, the patient was seen yesterday in our ER for similar symptoms and was discharged home after symptoms improve. However the patient states that once he was home he start having nausea, vomiting and abdominal pain. The patient state that is similar symptoms in the past. The patient however denies any fever, chills, chest pain, shortness breath, coughing or syncope. In our emergency room, the patient lab shows a lactate of 4.1 glucose of 205 with? positive ketones.? However, the patient gas shows mild alkalosis . Patient was given 2 L of IV fluid? and repeat acid was 1.5. Patient was given Lantis 20 units and repeat glucose was 105 down from 205. Due to ongoing nausea and vomiting our ER physician requested for admission to help control the nausea and vomiting [facility] Medical History Anxiety Migraines Headache Shoulder pain Osteoporosis Cataracts, bilateral Partial blindness GI bleeding Gastroparesis Gastric ulcer Chronic back pain MDD (major depressive disorder), recurrent episode, moderate Generalized anxiety disorder Compression fracture Chronic lower back pain HTN (hypertension) Hypothyroidism Marijuana use History of MRSA infection History of pneumonia Blurry vision, bilateral Diabetic neuropathy Bipolar disorder with depression Nausea and vomiting Diabetes type 1, uncontrolled Diabetic gastroparesis Surgical History No pertinent past surgical history Family History Mother No known health problems Father No known health problems Social History household members: family Smoking Status: Former smoker alcohol intake: current Meds Home Medications and Allergies Home Medications Medication Instructions Recorded Confirmed Type diphenhydramine HCl 25 mg tablet 25 mg PO BEDTIME PRN Insomnia 07/09/23 12/30/23 History insulin pump syringe 3 mL 10/04/23 12/28/23 History (Extended [place]) levothyroxine 50 mcg tablet 50 mcg PO DAILY #90 tabs 10/22/23 12/30/23 Rx metoprolol succinate 50 mg 50 mg PO DAILY 10/22/23 12/30/23 History tablet,extended release 24 hr zolpidem 5 mg tablet (Ambien) 5 mg PO BEDTIME PRN Insomnia 11/05/23 12/30/23 History hydroxyzine HCl 10 mg tablet 10 mg PO TID PRN anxiety #84 tabs 11/08/23 12/30/23 Rx lorazepam 1 mg tablet 1 mg PO BID PRN nausea and 11/15/23 12/30/23 Rx vomiting #30 tabs sucralfate 1 gram tablet (Carafate) 1 g PO BID #60 tabs 11/15/23 12/28/23 Rx gabapentin 300 mg capsule 300 mg PO BID 90 days #180 caps 12/06/23 12/30/23 Rx metoclopramide HCl 5 mg tablet 5 mg PO AC 30 days #90 tabs 12/06/23 12/30/23 Rx fluoxetine 10 mg capsule 10 mg PO DAILY #30 caps 12/21/23 12/30/23 Rx blood sugar diagnostic (True 12/24/23 12/28/23 History Metrix Glucose Test Strip) blood-glucose meter (True Metrix 12/24/23 12/28/23 History Glucose Meter) insulin regular human 100 unit/mL See Rx Instructions .Route .COMPLEX 12/24/23 12/30/23 History injection solution (Humulin R Regular U-100 Insulin) lancets 30 gauge (TRUEplus Lancets) 12/24/23 12/28/23 History pantoprazole 40 mg tablet,delayed 40 mg PO BID 12/24/23 12/28/23 History release (Protonix) pantoprazole 40 mg tablet,delayed 40 mg PO 0700,2100 #60 tabs 12/25/23 12/30/23 Rx release Allergies Allergy/AdvReac Type Severity Reaction Status Date / Time aspirin [ASPIRIN] Allergy Unknown MAKES ME Verified 12/28/23 10:40 GO DEAF hydrocodone [HYDROCODONE] AdvReac Intermediate VOMITING Verified 12/28/23 10:40 ibuprofen [IBUPROFEN] AdvReac Intermediate HURTS Verified 12/28/23 10:40 KIDNEYS Review of Systems Review of Systems ROS: Yes All systems reviewed with the patient and are negative except as otherwise documented Exam Vital Signs (past 8 hours): - 12/29/23 23:45 12/30/23 00:31 12/30/23 04:00 Temperature 98.4 F 97.7 F Pulse Rate 112 H 112 H 95 H Respiratory Rate 24 12 Blood Pressure 155/109 H 155/109 H 138/96 H Pulse Oximetry 100 97 Oxygen Flow Rate 0 0 Oxygen Delivery Method Room Air Oxygen Flow Rate 0 Narrative Exam Narrative: GENERAL: The patient is not in any acute distressed. Awake and alert. HEENT: Nonicteric sclerae, PERRLA, EOMI. Oropharynx clear. Moist mucous membranes. Conjunctivae appear well perfused. HEART: Regular rate and rhythm without murmurs. No lower extremities edema. LUNGS: Clear to auscultation bilaterally. No wheezing, crackles or rhonchi ABDOMEN: Soft, positive bowel sounds, nontender. SKIN: No rash, no excessive bruising, petechiae, or purpura. NEUROLOGIC: AxO x 3. Cranial nerves II-XII intact without motor/sensory deficit. Objective Labs 12/29/23 19:30 12/29/23 19:30 Labs: Laboratory Results - last 24 hr 12/29/23 12/29/23 12/29/23 19:30 20:31 21:10 WBC 10.1 RBC 4.61 Hgb 10.8 L Hct 34.1 L MCV 74.1 L MCH 23.5 L MCHC 31.7 RDW 17.3 H Plt Count 495 H Neut % (Auto) 69.2 Lymph % (Auto) 20.1 L [place] % (Auto) 9.3 Eos % (Auto) 0.5 L Baso % (Auto) 0.9 Neut # (Auto) 7000 Lymph # (Auto) 2000 [place] # (Auto) 900 Eos # (Auto) 100 Baso # (Auto) 100 Sodium 135 L Potassium 3.9 Chloride 101 Carbon Dioxide 15 L BUN 19 Creatinine 1.24 Estimated GFR > 60 BUN/Creatinine Ratio 15.3 Glucose 205 H Lactate 4.2 H* Calcium 9.8 Total Bilirubin 0.8 AST 29 ALT 27 Alkaline Phosphatase 109 Ammonia < 9 L Total Protein 7.7 Albumin 4.5 Globulin 3.2 Albumin/Globulin Ratio 1.4 Lipase 46 Urine Color Urine Appearance Urine pH Ur Specific [place] Urine Protein Urine Glucose (UA) Urine Ketones Urine Occult Blood Urine Nitrate Urine Bilirubin Ur Bilirubin Confirm Urine Urobilinogen Ur Leukocyte Esterase Urine RBC Urine WBC Ur Squamous Epith Cells Urine Bacteria Ur Culture Indicated? Vol Urine Centrifuged Ketones 3.32 H Chlamy pneumoniae PCR Not detected Adenovirus (PCR) Not detected B. pertussis DNA (PCR) Not detected B.parapertussis DNA PCR Not detected Coronavirus OC43 (PCR) Not detected Coronavirus HKU1 (PCR) Not detected Coronavirus 229E (PCR) Not detected SARS-CoV-2 (PCR) Not detected Coronavirus NL63 (PCR) Not detected Human Metapneumovir PCR Not detected Influenza Type A (PCR) Not detected Influenza Type B (PCR) Not detected M. pneumoniae (PCR) Not detected Parainfluenza 1 (PCR) Not detected Parainfluenza 2 (PCR) Not detected Parainfluenza 3 (PCR) Not detected Parainfluenza 4 (PCR) Not detected RSV (PCR) Not detected Entero/Rhino (PCR) Not detected 12/29/23 12/29/23 21:39 22:00 WBC RBC Hgb Hct MCV MCH MCHC RDW Plt Count Neut % (Auto) Lymph % (Auto) [place] % (Auto) Eos % (Auto) Baso % (Auto) Neut # (Auto) Lymph # (Auto) [place] # (Auto) Eos # (Auto) Baso # (Auto) Sodium Potassium Chloride Carbon Dioxide BUN Creatinine Estimated GFR BUN/Creatinine Ratio Glucose Lactate 1.5 Calcium Total Bilirubin AST ALT Alkaline Phosphatase Ammonia Total Protein Albumin Globulin Albumin/Globulin Ratio Lipase Urine Color Yellow Urine Appearance Clear Urine pH 5.5 Ur Specific [place] 1.020 Urine Protein Trace H Urine Glucose (UA) 3+ H Urine Ketones 2+ H Urine Occult Blood Negative Urine Nitrate Negative Urine Bilirubin 1+ H Ur Bilirubin Confirm Negative Urine Urobilinogen 0.2 Ur Leukocyte Esterase Negative Urine RBC 0-1/hpf Urine WBC 0-1/hpf Ur Squamous Epith Cells 0-1 /hpf Urine Bacteria Occasional (0-1) Ur Culture Indicated? Cult not indicated Vol Urine Centrifuged 10ml (spun) Ketones Chlamy pneumoniae PCR Adenovirus (PCR) B. pertussis DNA (PCR) B.parapertussis DNA PCR Coronavirus OC43 (PCR) Coronavirus HKU1 (PCR) Coronavirus 229E (PCR) SARS-CoV-2 (PCR) Coronavirus NL63 (PCR) Human Metapneumovir PCR Influenza Type A (PCR) Influenza Type B (PCR) M. pneumoniae (PCR) Parainfluenza 1 (PCR) Parainfluenza 2 (PCR) Parainfluenza 3 (PCR) Parainfluenza 4 (PCR) RSV (PCR) Entero/Rhino (PCR) Assessment & Plan Assessment & Plan narrative: Intractable Nausea vomiting. Admit the patient medical observation with telemetry. Most likely due to? gastroparesis as this is a recurrent problem for the patient.? Liquid diet and advance as tolerated. IV antiemetics. IDDM. Patient usually is positive for ketones but venous gas is usually alkalosis.? Glucose 205 in ER.? Now? patient glucose is 105. Will continue Lantus with sliding scale.? IVF. Elevate lactic acid. Could be from severe dehydration. Lactic acid Normalized after 2L of IVF given in ER. Hypothyroidism. Dehydration. IV fluid. DVT PPx SCDS Code Status Full code. Disposition likely home in 1 to 2 days. Time-Based Coding :: [TOTAL MINUTES] spent with patient and on the chart (including review of chart, obtaining history, exam, reviewing outside data, placing orders, documenting exam and treatment plan, and counseling patient) on [DATE].
--- NOTE | 2023-12-30 07:34 | PM.HP.1 ---
History of Present Illness History of Present Illness Chief complaint: Vomiting Narrative: From night doctor: 33 year-old male with past medical history of insulin dependent diabetes, diabetic Gastroparesis, recurrent DKA and hypothyroidism presents with nausea, vomiting and abdominal pain. Of note, the patient was seen yesterday in our ER for similar symptoms and was discharged home after symptoms improve. However the patient states that once he was home he start having nausea, vomiting and abdominal pain. The patient state that is similar symptoms in the past. The patient however denies any fever, chills, chest pain, shortness breath, coughing or syncope. In our emergency room, the patient lab shows a lactate of 4.1 glucose of 205 with? positive ketones.? However, the patient gas shows mild alkalosis . Patient was given 2 L of IV fluid? and repeat acid was 1.5. Patient was given Lantis 20 units and repeat glucose was 105 down from 205. Due to ongoing nausea and vomiting our ER physician requested for admission to help control the nausea and vomiting. Additional history: He had been doing well and went to his primary care doctor appointment where he was found to be hypotensive and sent to. He was fluid resuscitated and then went home. Then developed vomiting and hyperglycemia about 4 hours later returned to the ER. He denies any difficulties with the function of his glucometer or pump over the last several days. He was feeling better today, beginning to eat, and denies significant abdominal pain. No recent diarrhea. [facility] Medical History Anxiety Migraines Headache Shoulder pain Osteoporosis Cataracts, bilateral Partial blindness GI bleeding Gastroparesis Gastric ulcer Chronic back pain MDD (major depressive disorder), recurrent episode, moderate Generalized anxiety disorder Compression fracture Chronic lower back pain HTN (hypertension) Hypothyroidism Marijuana use History of MRSA infection History of pneumonia Blurry vision, bilateral Diabetic neuropathy Bipolar disorder with depression Nausea and vomiting Diabetes type 1, uncontrolled Diabetic gastroparesis Surgical History No pertinent past surgical history Family History Mother No known health problems Father No known health problems Social History household members: family Smoking Status: Former smoker alcohol intake: current Meds Home Medications and Allergies Home Medications Medication Instructions Recorded Confirmed Type diphenhydramine HCl 25 mg tablet 25 mg PO BEDTIME PRN Insomnia 07/09/23 12/30/23 History insulin pump syringe 3 mL 10/04/23 12/28/23 History (Extended [place]) levothyroxine 50 mcg tablet 50 mcg PO DAILY #90 tabs 10/22/23 12/30/23 Rx metoprolol succinate 50 mg 50 mg PO DAILY 10/22/23 12/30/23 History tablet,extended release 24 hr zolpidem 5 mg tablet (Ambien) 5 mg PO BEDTIME PRN Insomnia 11/05/23 12/30/23 History hydroxyzine HCl 10 mg tablet 10 mg PO TID PRN anxiety #84 tabs 11/08/23 12/30/23 Rx lorazepam 1 mg tablet 1 mg PO BID PRN nausea and 11/15/23 12/30/23 Rx vomiting #30 tabs sucralfate 1 gram tablet (Carafate) 1 g PO BID #60 tabs 11/15/23 12/28/23 Rx gabapentin 300 mg capsule 300 mg PO BID 90 days #180 caps 12/06/23 12/30/23 Rx metoclopramide HCl 5 mg tablet 5 mg PO AC 30 days #90 tabs 12/06/23 12/30/23 Rx fluoxetine 10 mg capsule 10 mg PO DAILY #30 caps 12/21/23 12/30/23 Rx blood sugar diagnostic (True 12/24/23 12/28/23 History Metrix Glucose Test Strip) blood-glucose meter (True Metrix 12/24/23 12/28/23 History Glucose Meter) insulin regular human 100 unit/mL See Rx Instructions .Route .COMPLEX 12/24/23 12/30/23 History injection solution (Humulin R Regular U-100 Insulin) lancets 30 gauge (TRUEplus Lancets) 12/24/23 12/28/23 History pantoprazole 40 mg tablet,delayed 40 mg PO BID 12/24/23 12/28/23 History release (Protonix) pantoprazole 40 mg tablet,delayed 40 mg PO 0700,2100 #60 tabs 12/25/23 12/30/23 Rx release Allergies Allergy/AdvReac Type Severity Reaction Status Date / Time aspirin [ASPIRIN] Allergy Unknown MAKES ME Verified 12/28/23 10:40 GO DEAF hydrocodone [HYDROCODONE] AdvReac Intermediate VOMITING Verified 12/28/23 10:40 ibuprofen [IBUPROFEN] AdvReac Intermediate HURTS Verified 12/28/23 10:40 KIDNEYS Review of Systems Review of Systems Narrative: All else reviewed and otherwise unremarkable except as noted in the history and physical. Exam Vital Signs (past 8 hours): - 12/29/23 23:45 12/30/23 00:31 12/30/23 04:00 Temperature 98.4 F 97.7 F Pulse Rate 112 H 112 H 95 H Respiratory Rate 24 12 Blood Pressure 155/109 H 155/109 H 138/96 H Pulse Oximetry 100 97 Oxygen Flow Rate 0 0 Oxygen Delivery Method Room Air Oxygen Flow Rate 0 Narrative Exam Narrative: NAD, alert and oriented, fluent speech, calm. He appears chronically ill and gaunt. Normocephalic skull, EOMI, anicteric sclera, symmetric pupils. Oropharynx unremarkable, no droop. Neck supple, midline trachea, no adenopathy. Lungs clear, normal rate and effort. Heart regular, no murmur gallop or rub. Abdomen is soft, non distended and non tender. Extremities are free of edema. Skin is free of rash or lesions. Joints are not swollen or deformed. Objective Imaging CT scan - abdomen: Radiologist's impression: Distended urinary bladder probably causing mild right hydroureter. No CT evidence acute urinary tract infection. Distal esophageal wall and mucosal thickening. Correlate with history of reflux, esophagitis or dysphagia. Labs 12/30/23 08:33 12/30/23 08:33 Labs: Laboratory Results - last 24 hr 12/29/23 12/29/23 12/29/23 19:30 20:31 21:10 WBC 10.1 RBC 4.61 Hgb 10.8 L Hct 34.1 L MCV 74.1 L MCH 23.5 L MCHC 31.7 RDW 17.3 H Plt Count 495 H Neut % (Auto) 69.2 Lymph % (Auto) 20.1 L [place] % (Auto) 9.3 Eos % (Auto) 0.5 L Baso % (Auto) 0.9 Neut # (Auto) 7000 Lymph # (Auto) 2000 [place] # (Auto) 900 Eos # (Auto) 100 Baso # (Auto) 100 Sodium 135 L Potassium 3.9 Chloride 101 Carbon Dioxide 15 L BUN 19 Creatinine 1.24 Estimated GFR > 60 BUN/Creatinine Ratio 15.3 Glucose 205 H Lactate 4.2 H* Calcium 9.8 Total Bilirubin 0.8 AST 29 ALT 27 Alkaline Phosphatase 109 Ammonia < 9 L Total Protein 7.7 Albumin 4.5 Globulin 3.2 Albumin/Globulin Ratio 1.4 Lipase 46 Urine Color Urine Appearance Urine pH Ur Specific [place] Urine Protein Urine Glucose (UA) Urine Ketones Urine Occult Blood Urine Nitrate Urine Bilirubin Ur Bilirubin Confirm Urine Urobilinogen Ur Leukocyte Esterase Urine RBC Urine WBC Ur Squamous Epith Cells Urine Bacteria Ur Culture Indicated? Vol Urine Centrifuged Ketones 3.32 H Chlamy pneumoniae PCR Not detected Adenovirus (PCR) Not detected B. pertussis DNA (PCR) Not detected B.parapertussis DNA PCR Not detected Coronavirus OC43 (PCR) Not detected Coronavirus HKU1 (PCR) Not detected Coronavirus 229E (PCR) Not detected SARS-CoV-2 (PCR) Not detected Coronavirus NL63 (PCR) Not detected Human Metapneumovir PCR Not detected Influenza Type A (PCR) Not detected Influenza Type B (PCR) Not detected M. pneumoniae (PCR) Not detected Parainfluenza 1 (PCR) Not detected Parainfluenza 2 (PCR) Not detected Parainfluenza 3 (PCR) Not detected Parainfluenza 4 (PCR) Not detected RSV (PCR) Not detected Entero/Rhino (PCR) Not detected 12/29/23 12/29/23 21:39 22:00 WBC RBC Hgb Hct MCV MCH MCHC RDW Plt Count Neut % (Auto) Lymph % (Auto) [place] % (Auto) Eos % (Auto) Baso % (Auto) Neut # (Auto) Lymph # (Auto) [place] # (Auto) Eos # (Auto) Baso # (Auto) Sodium Potassium Chloride Carbon Dioxide BUN Creatinine Estimated GFR BUN/Creatinine Ratio Glucose Lactate 1.5 Calcium Total Bilirubin AST ALT Alkaline Phosphatase Ammonia Total Protein Albumin Globulin Albumin/Globulin Ratio Lipase Urine Color Yellow Urine Appearance Clear Urine pH 5.5 Ur Specific [place] 1.020 Urine Protein Trace H Urine Glucose (UA) 3+ H Urine Ketones 2+ H Urine Occult Blood Negative Urine Nitrate Negative Urine Bilirubin 1+ H Ur Bilirubin Confirm Negative Urine Urobilinogen 0.2 Ur Leukocyte Esterase Negative Urine RBC 0-1/hpf Urine WBC 0-1/hpf Ur Squamous Epith Cells 0-1 /hpf Urine Bacteria Occasional (0-1) Ur Culture Indicated? Cult not indicated Vol Urine Centrifuged 10ml (spun) Ketones Chlamy pneumoniae PCR Adenovirus (PCR) B. pertussis DNA (PCR) B.parapertussis DNA PCR Coronavirus OC43 (PCR) Coronavirus HKU1 (PCR) Coronavirus 229E (PCR) SARS-CoV-2 (PCR) Coronavirus NL63 (PCR) Human Metapneumovir PCR Influenza Type A (PCR) Influenza Type B (PCR) M. pneumoniae (PCR) Parainfluenza 1 (PCR) Parainfluenza 2 (PCR) Parainfluenza 3 (PCR) Parainfluenza 4 (PCR) RSV (PCR) Entero/Rhino (PCR) Assessment & Plan Assessment & Plan narrative: 1. Intractable Nausea vomiting. Admit the patient medical observation with telemetry. Most likely due to? gastroparesis as this is a recurrent problem for the patient.? Liquid diet and advance as tolerated. IV antiemetics. 2. IDDM. Patient usually is positive for ketones but venous gas is usually alkalosis.? Glucose 205 in ER.? Now? patient glucose is 105. Will continue Lantus with sliding scale.? IVF. 3. Elevate lactic acid. Could be from severe dehydration. Lactic acid Normalized after 2L of IVF given in ER. 4. Hypothyroidism. 5. Dehydration. IV fluid. 6. Esophagitis, present on admission and active. 7. Distended bladder and hydroureter, present on admission and active. Plan: -minimize hydromorphone by increasing to q.4 hours. Severe pain. -introduce oxycodone at Q 2 hour intervals for moderate pain. -symptomatic treatment of nausea. -encourage p.o. intake. -continue PPI b.i.d. for esophagitis. -IV fluids. -check postvoid residual to rule out retention. DVT PPx SCDS Code Status Full code. HANS: 12/30 Disposition: likely home in 1 to 2 days. Time-Based Coding :: 35 min spent with patient and on the chart (including review of chart, obtaining history, exam, reviewing outside data, placing orders, documenting exam and treatment plan, and counseling patient) on 12/29. Quality MIPS - Admit I confirm the patient?s Advance Care Plan is present, Code status is documented, Surrogate decision maker is in patient?s record [If Yes, STOP here]: Yes MIPS - Meds 'Current medications' to include all prescriptions, [id number] products, herbals, cannabis/cannabidiol products, and vitamin/mineral/dietary (nutritional) supplements. I have utilized all available resources to obtain, update, or review the patient?s current medications. [If Yes, STOP here]: Yes
[2023-12-30 08:00] VITALS: BP 128/91; PULSE 95; RESP 18; TEMP 36.5; O2SAT 96
[2023-12-30] MEDS: INSULIN LISPRO 100 UNIT/ML 3ML VIAL SUBCUT ×3 (08:19→17:14)
[2023-12-30] MEDS: METOCLOPRAMIDE 10 MG/2 ML INJ 5 MG IV ×2 (08:19→16:29)
[2023-12-30 08:48] LABS: Add Manual Diff / Slide Review NO; Basophils Absolute Auto 100 /uL (0-100); Basophils Percent Auto 0.6 % (0-2); Eosinophils Absolute Auto 100 /uL (0-450); Eosinophils Percent Auto 0.8 % (2-4); Hematocrit 28.4 % (41-53); Hemoglobin 9.1 g/dL (13.5-17.5); Lymphocytes Absolute Auto 2400 /uL (1100-4500); Mean Corpuscular HGB Conc 31.8 % (30-36); Mean Corpuscular Hemoglobin 23.6 PG (26-34); Monocytes Absolute Auto 1000 /uL (0-900); Monocytes Percent Auto 8.5 % (3-14); Neutrophils Absolute Auto 7800 /uL (1500-7000); Neutrophils Percent Auto 69.1 % (50-75); Platelet Count 321 X10^3/uL (150-400); Red Blood Cell Count 3.85 X10^6/uL (4.5-5.9); Red Cell Distribution Width 17.7 % (11.6-14.8); White Blood Cell Count 11.2 X10^3/uL (4.5-11.0)
--- NOTE | 2023-12-30 08:52 | DIET.CONS ---
Addendum entered by Julia Márquez 12/31/23 13:38: Consult for dietitian morning of 12/30 noted. Reason for consult left blank. See consult note below and CDCES consult. Pt to d/c today and has been set up with pump and CGM with the [facility]. >75% of recorded PO intakes noted. Original Note: Dietary Consultation Note Admission Date: 12/29/2023 22:52 Assessment: 33 y M admitted for vomiting. RD screened for low MNA. EMR reviewed. PMH of severe acute protein calorie malnutrition on 12/03/23 Pt with significant decrease in overall PO intakes over the course of the last 2 months d/t repeat DKA and vomiting and nausea r/t gastroparesis. Vomiting and nausea lead to days of no PO intakes, i.e. pt unable to keep any PO intake down for 3 weeks in November, pt with multiple admission for uncontrolled vomiting/nausea/DKA since 12/15 Pt with severe weight loss over last 2 months. See weight hx below. Pt has appt with endo coming up and appt scheduled with the music educator. Pt has pump, no CGM, but has blood glucose meter per team in rounds. Ht: 177.8 cm Wt: 71 kg BMI: 22.4 Weight History: 72.575 kg on 12/28/23 (-10.8% loss within 2 months, severe) 79.435 kg on 11/15/23 81.363 kg on 10/22/23 81.647 kg on 07/19/23 83.915 kg on 07/08/23 Last BM: 12/29/23 (12/29/23 23:06) MNA: 8 Jimbo Score: 19 Diet: 12/29/23 Breakfast Carbohydrate Consistent Diet Diet Modifications: Carbohydrate level: Medium (3 CHO) Reflex DM orders: No Labs: RBC 3.85 X10^6/uL (4.5-5.9) L 12/30/23 08:33 Hgb 9.1 g/dL (13.5-17.5) L 12/30/23 08:33 Hct 28.4 % (41-53) L 12/30/23 08:33 Creatinine 1.24 mg/dL (0.66-1.25) 12/29/23 19:30 Lactate 1.5 mmol/L (0.7-2.1) 12/29/23 21:39 Nutrition Diagnosis: Severe acute protein calorie malnutrition r/t vomiting/nausea and uncontrolled blood glucose as evidenced by repeat admissions for DKA, diabetic gastroparesis, pt with hx of skipping multiple days in a row of PO intakes d/t symptoms resulting in PO intakes <75% of estimated energy needs for 2 months (severe), 10.8% weight loss within 2 months (severe) Interventions: 1. Monitor PO intakes, ONS/protein supplementation previously denied - will f/u with other options as needed. MNT for gastroparesis provided multiple times at previous admissions 2. [facility] with [facility] EER: [id number] kcals (25-30 kcals/kg per BMI) 85 g protein (1.2 g/kg per PCM) Monitoring/Evaluations: BG, PO intakes Electronically Signed by: Julia Márquez 12/30/23 08:52 Clinical Dietitian [address] [id number]
[2023-12-30 09:26] LABS: BUN Creatinine Ratio 12.2 (6-22); Blood Urea Nitrogen 12 mg/dL (9-20); Carbon Dioxide 16 mmol/L (22-32); Chloride 100 mmol/L (98-107); Estimated Glomerular Filt Rate > 60 mL/min (>60); Glucose 217 mg/dL (70-100); HEMOLYSIS < 15 (0-50); Potassium 3.8 mmol/L (3.4-5.1); Sodium 129 mmol/L (137-145)
[2023-12-30] MEDS: LEVOTHYROXINE 50 MCG TABLET PO (10:07)
[2023-12-30] MEDS: GABAPENTIN 300 MG CAPSULE PO ×2 (10:07→20:26)
[2023-12-30 14:00] VITALS: BP 134/90; PULSE 88; RESP 18; TEMP 36.4; O2SAT 98
[2023-12-30 15:58] LABS: Base Excess VBG -2.2 mmol/L (0-4); HCO3 VBG 18 mmol/L (24-28); Oxygen Saturation VBG 52 % (70-75); PCO2 VBG 19.4 mmHg (45-50); PO2 VBG 22 mmHg (35-45); Total CO2 VBG 17 mmol/L (24-29); pH VBG 7.57 (7.33-7.43)
[2023-12-30] MEDS: ACETAMINOPHEN 325 MG TABLET 650 MG PO (16:29)
--- NOTE | 2023-12-30 16:47 | CM.DANOTE ---
DCP Assessment Note Pt is a 33yo M here with N/V/diabetic gastroparesis. PCP Erich Payer Mickey and Medicaid MANUFACTURING TEACHER reviewed EMR. Pt lives with grandmother Meghan in [place]. Multiple frequent readmissions to this acute care and ED. See previously records for more. Pt has seen psychiatrist Dr. Mccracken and PCP Dr. Jung 12/27. Discussed in multidisciplinary rounds. MANUFACTURING TEACHER lvm with [facility] office P [phone] and previously assigned social media analyst Salina Batista (pronounced Donna) P [phone]. No response. MANUFACTURING TEACHER had lengthy conversation with Mickey CM RN Yokasta ([phone]). Per Yokasta, she previously attempted to transition pt from her TCM caseload to [facility] care management and he declined. Yokasta reports that everytime she connects with him he claims he has all of his equipment needs and does not need anything from her. Yokasta claims there is no record in his case of any denied DME/equipt for his diabetes. other [facility] pt's have been approved for CGMs in the past and is unsure why he thinks he was getting denied by [facility] for a CGM. Yokasta reports that if the request is made through PCP office for CGM it should be approved but she can assist with that if needed. Yokasta has connected him to Community resources and various other resources and pt does not follow through. She is out of office for a week but will follow up on his case first week of January. MANUFACTURING TEACHER passed along above [facility] info to provider/TCM OP team. provided TCM OP team with Yokasta's contact information. MANUFACTURING TEACHER met with pt in room. reports feeling better but not great. reports not having heard from [facility] assessment team yet. reports he is taking his MH medication. reports his grandmother is having surgery today but that his aunt is staying with them in the home. pt has riprap placer appt 01/05/[address] Juarez at [facility]. When asked how he was going to transport to his appt, pt did not have a plan. MANUFACTURING TEACHER reminded him of Medicaid transport, he said he would look into it. MANUFACTURING TEACHER stressed the importance of him making that appt. Pt gave CM team permission to speak with his mother, Marilee. Pt reports he did not understand the [facility] CM purpose and that's why he denied it in the past. Claims that he did not know the CGM had to go through his PCP to get approved by [facility]. MANUFACTURING TEACHER had lengthy conversation with mother Marilee ([phone]). Mother reports he absolutely refuses to poke himself ever since he was diagnosed at 12 which has been an issue in managing his diabetes. He lived with her in [place] until she moved to [place] to which he decided to stay in [place] with his girlfriend. He was doing really well when he had the CGM in [place]/when he was with his gf/he was much more independent in managing his ADLs. After his and GF broke up, he left [place] and moved in with grandmother in [place]. mom believes his behavior/not managing his diabetes appropriately is his long withstanding plan to kill himself slowly even though he adamantly denies SI, no hx of attempts but one previous hospitalization for ideation. Mom reports that pt would never actually kill himself because his brother unexpectedly a few years ago (not by suicide) and that he would never do that to his mom. Mom claims at previous hospitals he had forced himself to vomit via fingers in throat to remain in the hospital but does not believe to her knowledge he has done that in awhile. Between ages of [age] he's cost her about a million dollars (apparently not an exaggeration) in medical bills. Mom is concerned about him managing at home after grandma's surgery, she is non weight baring on her left foot for 4 weeks. She strongly believes he would be better suited in an [facility] environment where someone that is not family could help him manage his needs. She reports he is very good at manipulating family to manage all of his needs for him. She will help set up Medicaid transport to his riprap placer appt for next week. MANUFACTURING TEACHER answered questions to the best of ability. CM team will continue to follow closely GORDON Sumner Discharge Planning/Care Management Advanced directive, confirm from FAMILY Start: 12/30/23 00:19 Freq: Q24H Status: Active Protocol: Document 12/30/23 00:19 (Rec: 12/30/23 02:10 [id number]) Advance Directive, confirm on record Time 23:59 Person contacted pt Copy received No CM Discharge Assessment Start: 12/30/23 16:40 Freq: Status: Active Protocol: Document 12/30/23 16:40 SL (Rec: 12/30/23 16:46 SL [id number]) Discharge Planning Assessment Assigned Structures Engineer GORDON Jones DPOA/Assigned Designee Name Meghan (grandmother) Marilee ( mom) Contact Information [phone] and [phone] Advance Directives? No Advance Directives on File No History Provided By Patient,Family Member,Medical Record Has Patient been admitted in last 30 Yes days? Prior Living Arrangements House Household Members family Type of transporation used prior to Relies on Others admit Independent with ADL's No Is patient alert and oriented? Yes Needs Assistance With Meal Prep,Managing Medications ,Home Chores / Shopping Comment Patient has left foot drop which he wears a brace for. Comment See narrative. Discharge Plan Home Transportation Arrangement TBD Referrals Initiated Other Additional Comment Patient would benefit from [facility] caregiver in the home vs [facility] Whiteboard Updated in Patient Room with Yes name and ext. # of Structures Engineer Review Status In Process Please Provide Date Initial DC 12/30/23 Assessment Was Performed Next Review Type Continued Stay Review
--- NOTE | 2023-12-30 17:19 | DIAB.INIT ---
Initial Diabetes Education Assessment Name: Valentin Noble 33 y/o pt with T1Dm x 20 years. Frequent admissions for DKA as of recent. Admitted this visit for nausea and vomiting in the absence of DKA. Missed last Dm ed OP apt. Scheduled for 01/17. Also has Endo visit scheduled. Seems to have continued issue with getting Dexcom G6 CGM supplies. Today he is disconnected from insulin pump and using MDI while admitted. Interested in reconnecting, which was discussed with hospitalist and agreed upon. No DKA this visit. Provided G7 for him to use at this time until he can get his usual G6 supplies. Will contact PCP for troubleshooting G6 rx through [facility]. Today he was instructed on self placement of a G7 CGM with success. We set a temp 0% basal rate since he received lantus less than 24 hours ago. This will restart basal rate around 9pm tonight. He can use insulin pump in manual mode. RD/CDCES will check on him tomorrow to review pump settings, CGM, and BG trends. Maye Tamez RDN, CDCES Certified Diabetes Care and Tax Map Technician P: [phone] Thank you for this referral
[2023-12-30 20:09] VITALS: BP 144/97; PULSE 90; RESP 18; TEMP 36.4; O2SAT 97
[2023-12-30] MEDS: METOCLOPRAMIDE HCL 5 MG TABLET 10 MG PO (20:25)
[2023-12-30] MEDS: PANTOPRAZOLE DR 40 MG TABLET PO (20:26)
[2023-12-30] MEDS: ZOLPIDEM 5 MG TABLET PO (21:36)
[2023-12-31] MEDS: OXYCODONE IR 5 MG TABLET PO ×7 (00:40→14:30)
[2023-12-31] MEDS: ACETAMINOPHEN 325 MG TABLET 650 MG PO ×2 (00:40→07:30)
[2023-12-31 02:00] VITALS: BP 123/87; PULSE 87; RESP 18; TEMP 36; O2SAT 97
--- NOTE | 2023-12-31 04:04 | PC.NURSE ---
Addendum entered by Slime Hardy R.N. 12/31/23 06:22: IV to Left upper arm failed. Fluids stopped. Addendum entered by Slime Hardy R.N. 12/31/23 04:27: Pt reports that since he has his insulin pump, 0.91 U/hr, he shouldn't be getting sliding scale or Lantus. This was confirmed by Dr. Christianson. Original Note: No IV access at start of shift, no fluids running. IV placed around 04:00, restarted fluids.
[2023-12-31] MEDS: LEVOTHYROXINE 50 MCG TABLET PO (05:20)
--- NOTE | 2023-12-31 06:04 | PC.NURSE ---
Addendum entered by Slime Hardy R.N. 12/31/23 07:00: Education provided for straight cath and urine retention. Addendum entered by Slime Hardy R.N. 12/31/23 06:57: Per Dr. Fitzpatrick, Parameters for straight cath > 350. Patient refused stating I don't want a catheter. Education provided for straight cath. Continued to refuse. Original Note: Void 400mL , PVR 440mL.
[2023-12-31] MEDS: METOCLOPRAMIDE HCL 5 MG TABLET 10 MG PO ×2 (07:29→12:03)
[2023-12-31] MEDS: PANTOPRAZOLE DR 40 MG TABLET PO (07:32)
[2023-12-31 08:00] VITALS: BP 157/100; PULSE 84; RESP 21; TEMP 36.2; O2SAT 98
[2023-12-31] MEDS: GABAPENTIN 300 MG CAPSULE PO (09:55)
--- NOTE | 2023-12-31 11:44 | PM.DS.1 ---
History of Present Illness History of Present Illness Chief complaint: Vomiting Narrative: From night doctor: 33 year-old male with past medical history of insulin dependent diabetes, diabetic Gastroparesis, recurrent DKA and hypothyroidism presents with nausea, vomiting and abdominal pain. Of note, the patient was seen yesterday in our ER for similar symptoms and was discharged home after symptoms improve. However the patient states that once he was home he start having nausea, vomiting and abdominal pain. The patient state that is similar symptoms in the past. The patient however denies any fever, chills, chest pain, shortness breath, coughing or syncope. In our emergency room, the patient lab shows a lactate of 4.1 glucose of 205 with? positive ketones.? However, the patient gas shows mild alkalosis . Patient was given 2 L of IV fluid? and repeat acid was 1.5. Patient was given Lantis 20 units and repeat glucose was 105 down from 205. Due to ongoing nausea and vomiting our ER physician requested for admission to help control the nausea and vomiting. Additional history: He had been doing well and went to his primary care doctor appointment where he was found to be hypotensive and sent to. He was fluid resuscitated and then went home. Then developed vomiting and hyperglycemia about 4 hours later returned to the ER. He denies any difficulties with the function of his glucometer or pump over the last several days. He was feeling better today, beginning to eat, and denies significant abdominal pain. No recent diarrhea. Discharge Providers Provider Date of admission: 12/29/23 22:52 Discharge Date: 12/31/23 Primary care physician: James Jung DO Consults: 12/31/23 04:41 Consult to Dietitian, Adult Routine Comment: Reason For Exam: . Discharge provider: Kiran Moore MD Summary Hospital Course Discharge Diagnosis: 1. Intractable Nausea vomiting. Present on admission and improved. 2. IDDM. Present on admission and active, uncontrolled. This was improved by the time he left the hospital. 3. Elevate lactic acid. Could be from severe dehydration. Present on admission and improved. 4. Urine retention, present on admission and active. 5. Hypothyroidism. Present on admission and stable. 6. Dehydration. Present on admission and improved. 7. Esophagitis, present on admission and active. 8. Distended bladder and hydroureter, present on admission and active. Hospital Course: He was admitted with nausea, and vomiting. He did not have acidosis upon arrival and was treated with insulin. The patient improved with IV fluids and insulin. He was given symptomatic treatment for his nausea. He lost IV access and was able to convert to oral Zofran and pain medications without difficulty. A continuous glucose monitor patch was obtained with a month supply of samples and he place this on the evening of December 29 and took over his pump and did a good job with control of glucose overnight. In the day of discharge he felt well, and was eager to discharge home. There was indication of some urinary retention while in the hospital, he had a bladder ultrasound for an 440 cc but refused catheterization. His initial imaging also indicates possible large bladder with hydroureter. The patient will likely require outpatient follow up with Urology for possible urinary retention. Status at Discharge Cognitive/behavioral status at discharge: oriented Functional status at discharge: independent ambulation Overall status at discharge: patient is back to baseline Time Spent with Patient Time spent: Greater than 30 minutes Exam Vital Signs (past 8 hours): Oxygen Delivery Method Room Air Oxygen Flow Rate 0 Narrative Exam Narrative: NAD, alert and oriented. Fluent speech. Lungs are clear, normal rate and effort. Heart is regular, no murmur gallop or rub. Abdomen is soft, non distended. Extremities are free of edema. Objective Imaging CT scan - chest: Radiologist's impression: CT scan - abdomen: Radiologist's impression: Distended urinary bladder probably causing mild right hydroureter. No CT evidence acute urinary tract infection. Distal esophageal wall and mucosal thickening. Correlate with history of reflux, esophagitis or dysphagia. Labs 12/30/23 08:33 12/30/23 08:33 Labs: Laboratory Results - last 24 hr 12/29/23 19:33 VBG pH 7.57 H VBG pCO2 19.4 L VBG pO2 22 L VBG HCO3 18 L VBG Total CO2 17 L VBG O2 Saturation 52 L VBG Base Excess -2.2 L [facility] Medical History Anxiety Migraines Headache Shoulder pain Osteoporosis Cataracts, bilateral Partial blindness GI bleeding Gastroparesis Gastric ulcer Chronic back pain MDD (major depressive disorder), recurrent episode, moderate Generalized anxiety disorder Compression fracture Chronic lower back pain HTN (hypertension) Hypothyroidism Marijuana use History of MRSA infection History of pneumonia Blurry vision, bilateral Diabetic neuropathy Bipolar disorder with depression Nausea and vomiting Diabetes type 1, uncontrolled Diabetic gastroparesis Surgical History No pertinent past surgical history Family History Mother No known health problems Father No known health problems Social History household members: family Smoking Status: Former smoker alcohol intake: current Discharge Assessment & Plan Assessment and Plan Assessment: 1. Intractable Nausea vomiting. Present on admission and improved. 2. IDDM. Present on admission and active, uncontrolled. This was improved by the time he left the hospital. 3. Elevate lactic acid. Could be from severe dehydration. Present on admission and improved. 4. Urine retention, present on admission and active. Plan of Treatment: Discharge home with oxycodone as needed pain, 15. Also resubmitted a Reglan prescription for number 30 he was a month supply of continuous glucose monitors which he has been using since the night prior to discharge with good control of blood sugars on his pump. He was asked to reschedule close follow up with Dr. Jung, his primary care doctor. He also has an upcoming diabetic diet education appointment. We will have to continue to watch him for any evidence or symptoms of urine retention. He declined any intervention while in the hospital. He may require outpatient follow up with Urology. Discharge Plan Discharge Plan Patient Disposition: Home Provider Discharge Comment: Doing well on p.o. meds and good glucose control with his pump and the CGM. Discharge orders & Medications Prescriptions: New oxycodone 5 mg Tablet 5 mg PO Q2HR PRN (Reason: Pain, Moderate (4-6)) Qty: 15 0RF Continued fluoxetine 10 mg capsule 10 mg PO DAILY Qty: 30 2RF hydroxyzine HCl 10 mg tablet 10 mg PO TID PRN (Reason: anxiety) Qty: 84 0RF (DME) Dexcom G6 Autoclave Operator Misc See Rx Instructions .Route Qty: 1 1RF Rx Instructions: use to continuosly check blood sugars (DME) Dexcom G6 Sensor Device See Rx Instructions .Route Qty: 3 3RF Rx Instructions: use to continuously monitor blood sugars metoprolol succinate 50 mg tablet extended release 24 hr 50 mg PO DAILY levothyroxine 50 mcg tablet 50 mcg PO DAILY Qty: 90 1RF sucralfate [Carafate] 1 gram tablet 1 g PO BID Qty: 60 1RF lorazepam 1 mg tablet 1 mg PO BID PRN (Reason: nausea and vomiting) Qty: 30 1RF diphenhydramine HCl 25 mg Tablet 25 mg PO BEDTIME PRN (Reason: Insomnia) (DME) Extended [place] 3 mL Misc MISCELLANEOUS Rx Instructions: patient uses insulin pump metoclopramide HCl 5 mg Tablet 5 mg PO AC 30 Days Qty: 30 0RF zolpidem [Ambien] 5 mg Tablet 5 mg PO BEDTIME PRN (Reason: Insomnia) gabapentin 300 mg Capsule 300 mg PO BID 90 Days Qty: 180 0RF (DME) True Metrix Glucose Test Strip Strip MISCELLANEOUS 4XD Humulin R Regular U-100 Insuln 100 unit/mL solution See Rx Instructions .ROUTE .COMPLEX Rx Instructions: 90 unit via continuous subcutaneous infusion (DME) lancets [TRUEplus Lancets] 30 gauge misc MISCELLANEOUS 4XD (DME) blood-glucose meter [True Metrix Glucose Meter] Misc MISCELLANEOUS pantoprazole 40 mg Tablet,Delayed Release (Dr/Ec) 40 mg PO 0700,2100 Qty: 60 0RF Follow up/Referrals: James Jung, DO [Primary Care Provider] - Diet/Activity/Treatments Diet: Carb-consistent/Diabetic Visit Report/Discharge Packet Stand Alone Forms: Patient Portal/API Discharge Data Primary Care Provider: James Jung Attending Provider: Edgard Balderas Admit Date/Time: 12/29/23 22:52
--- NOTE | 2023-12-31 11:57 | CM.DPNOTE ---
Addendum entered by Ashlyn Mil, EMPLOYEE PLACEMENT SPECIALIST 12/31/23 14:01: ADD: According to Salina Batista; Patient being followed by Program spout worker at [facility] - Rhina Meek P [phone]. Patient has not been assigned a social contact worker for functional assessment at this time. Addendum entered by Ashlyn Frazierniewski, EMPLOYEE PLACEMENT SPECIALIST 12/31/23 13:35: ADD: VM received from [facility] worker Salina Batista P [phone] who reports she had to transfer patient's case. Salina did not leave any further information. Another call made to Salina asking who at [facility] has been assigned ? According to patient, there is no family available to give him a ride home today, no money for taxi and bus not an ideal option. Completed the Medicaid Hospital Discharge Request Form and faxed to [phone]. Placed call to Medicaid transportation P [phone]; fax did not go through. Attempted fax again at 1:56pm to F [phone]. Original Note: DC Note Patient is being discharged home today, recommendation for close outpatient follow up. Patient has a pump and continuous glucose monitor and it has been used inpatient with good glucose control. Updated the transitions of care team at Dr Jung's office of patient's discharge. Attempted contact with [facility] 'hospital assigned' worker Salina Batista P [phone], [email or web address] by email and phone, had to LM. Unsure whether Salina Batista is still patient's home and community manager. Plan: Discharge home w/family, outpatient follow up. GRETA
--- NOTE | 2023-12-31 14:56 | CM.DPNOTE ---
Medicaid Transport [place] that the fax is down at Medicaid transport. Emailed Hospital Discharge Request Form to [email or web address]. JW
--- NOTE | 2023-12-31 15:10 | PC.NURSE ---
late entry: 12/30/23 at 1715 adult educator at bedside evaluating patient and provides education on Continuous Glucose Monitoring (delivers to patient) as well as insulin pump. She checks patient supplies and sets in place for patient. Discussed with MD Moore who ok's patient to use his own insulin pump and CGM. He verbalizes understanding and signs agreement with use and using daily log sheet.
--- NOTE | 2023-12-31 15:15 | PC.NURSE ---
Patient is A&OX4, VSS, afebrile. BP slightly elevated. He continues to c/o abdominal pain 7/10 and intermittent nausea. He is able to tolerate both breakfast and lunch. MD at bedside discussing plan of care and evaluating patient and he is cleared to discharge home this afternoon. He verbalizes and acknowledges understanding of medications, to report to ED if unable to urinate, as well as follow up recommendations with PCP.
== END 2023-12-31 15:00 | disposition home or self-care (01) ==
LOC: ED 20:02 → AC 22:53
PROVIDERS: Admitting Provider Internal Medicine; Emergency Provider Emergency Medicine; PCP Family Medicine; Referring Provider Emergency Medicine; Visit Provider Internal Medicine
DX: E10.40 Type 1 diabetes mellitus with diabetic neuropathy, unspecified (principal); E10.43 Type 1 diabetes mellitus with diabetic autonomic (poly)neuropathy; E86.0 Dehydration; N13.4 Hydroureter; K20.90 Esophagitis, unspecified without bleeding; E03.9 Hypothyroidism, unspecified; R33.9 Retention of urine, unspecified; R74.02 Elevation of levels of lactic acid dehydrogenase [LDH]; Z79.4 Long term (current) use of insulin; Z96.41 Presence of insulin pump (external) (internal)
CPT/HCPCS: 36415; 71045; 74177; 80048; 80053; 81001; 82009; 82140; 82805; 82962; 83605; 83690; 85025; 87040; 87633; 96361; 96365; 96366; 96367; 96372; 96375; 96376; 99284; G0378; J0134; J0780; J1171; J1815; J2405; J2470; J2765; Q9967

== ENCOUNTER 2024-01-13 15:09 | Observation (INO) | payer OTHER, MEDICAID, SELFPAY ==
[2024-01-13] VITALS (18 sets, daily range): BP systolic 115–157; BP diastolic 70–103; PULSE 75–93; RESP 12–18; TEMP 36.6–36.7; O2SAT 97–100; BMI 22.9
--- NOTE | 2024-01-13 15:16 | ED_ITS ---
HPI - General Adult General Chief complaint: Nausea/Vomiting/Diarrhea Stated complaint: sent by Dr Jung, vomiting and back px Time Seen by Provider: 01/13/24 15:16 History of Present Illness HPI narrative: 33-year-old gentleman with a history of poorly controlled type 1 diabetes, bipolar disorder gastroparesis and diabetic neuropathy, depressive disorder with generalized anxiety migraine hypertension, hypothyroidism presents to his primary care physician's office for follow up today with complaints of severe reflux causing burning through his central chest worsening his vomiting and make an it unable to eat which has set off his usual abdominal pain and symptoms of gastroparesis. no fevers, chills, cough, palpitations, he does complain of new pain in his upper back between his shoulder blades From Discharge on 12/30: Summary Hospital Course Discharge Diagnosis: 1. Intractable Nausea vomiting. Present on admission and improved. 2. IDDM. Present on admission and active, uncontrolled. This was improved by the time he left the hospital. 3. Elevate lactic acid. Could be from severe dehydration. Present on admission and improved. 4. Urine retention, present on admission and active. 5. Hypothyroidism. Present on admission and stable. 6. Dehydration. Present on admission and improved. 7. Esophagitis, present on admission and active. 8. Distended bladder and hydroureter, present on admission and active. Recent healthcare encounters and admissions: In the ER on 12/27 and discharged Admit December 22 through the ER visit December 21 Admit December 15 to December 19 Admit 11/30 to 12/05 ER 11/26 Admit November 20- ER November 19 Primary care visit November 14 Admit November 02 through PCP on October 21 Admit October 01 227 Related Data Home Medications Medication Instructions Recorded Confirmed diphenhydramine HCl 25 mg tablet 25 mg PO BEDTIME PRN Insomnia 07/09/23 01/14/24 insulin pump syringe 3 mL 10/04/23 01/14/24 (Extended [place]) metoprolol succinate 50 mg 50 mg PO DAILY 10/22/23 01/14/24 tablet,extended release 24 hr zolpidem 5 mg tablet (Ambien) 5 mg PO BEDTIME PRN Insomnia 11/05/23 01/14/24 blood sugar diagnostic (True 12/24/23 01/14/24 Metrix Glucose Test Strip) blood-glucose meter (True Metrix 12/24/23 01/14/24 Glucose Meter) insulin regular human 100 unit/mL See Rx Instructions .Route .COMPLEX 12/24/23 01/14/24 injection solution (Humulin R Regular U-100 Insulin) lancets 30 gauge (TRUEplus Lancets) 12/24/23 01/14/24 blood-glucose meter,continuous 01/14/24 01/14/24 (Dexcom G6 Band Manager) blood-glucose sensor (Dexcom G6 01/14/24 01/14/24 Sensor device) metoclopramide HCl 5 mg tablet 5 mg PO DAILY 01/14/24 01/14/24 paroxetine HCl 10 mg tablet 10 mg PO DAILY 01/14/24 01/14/24 Previous Rx's Medication Instructions Recorded levothyroxine 50 mcg tablet 50 mcg PO DAILY #90 tabs 10/22/23 hydroxyzine HCl 10 mg tablet 10 mg PO TID PRN anxiety #84 tabs 11/08/23 lorazepam 1 mg tablet 1 mg PO BID PRN nausea and 11/15/23 vomiting #30 tabs sucralfate 1 gram tablet (Carafate) 1 g PO BID #60 tabs 11/15/23 gabapentin 300 mg capsule 300 mg PO BID 90 days #180 caps 12/06/23 fluoxetine 10 mg capsule 10 mg PO DAILY #30 caps 12/21/23 pantoprazole 40 mg tablet,delayed 40 mg PO 0700,2100 #60 tabs 12/25/23 release Allergies Allergy/AdvReac Type Severity Reaction Status Date / Time aspirin [ASPIRIN] Allergy Unknown MAKES ME Verified 01/13/24 15:25 GO DEAF hydrocodone [HYDROCODONE] AdvReac Intermediate VOMITING Verified 01/13/24 15:25 ibuprofen [IBUPROFEN] AdvReac Intermediate HURTS Verified 01/13/24 15:25 KIDNEYS Review of Systems Review of Systems Narrative: Pertinent positive and negative findings as per HPI Patient History Medical History Anxiety Migraines Headache Shoulder pain Osteoporosis Cataracts, bilateral Partial blindness GI bleeding Gastroparesis Gastric ulcer Chronic back pain MDD (major depressive disorder), recurrent episode, moderate Generalized anxiety disorder Compression fracture Chronic lower back pain HTN (hypertension) Hypothyroidism Marijuana use History of MRSA infection History of pneumonia Blurry vision, bilateral Diabetic neuropathy Bipolar disorder with depression Nausea and vomiting Diabetes type 1, uncontrolled Diabetic gastroparesis Surgical History No pertinent past surgical history Family History Mother No known health problems Father No known health problems Social History household members: family Smoking Status: Former smoker alcohol intake: current Smoking Status: Former smoker alcohol intake frequency: holidays/special occasions only Alcohol type: hard liquor Exam Initial Vital Signs Initial Vital Signs: Vital Signs Temperature 98.1 F 01/13/24 15:12 Pulse Rate 87 01/13/24 15:12 Respiratory Rate 16 01/13/24 15:12 Blood Pressure 115/70 01/13/24 15:12 Pulse Oximetry 100 01/13/24 15:12 Oxygen Delivery Method Room Air 01/13/24 15:12 General: Chronically ill, appearing significantly older than stated age appears uncomfortable, HEENT: Dry mucous membranes, normal sclera with reactive pupils, Respiratory: Lungs are clear to auscultation, Full and symmetrical air movement Cardiac: Regular rate and rhythm no murmurs no bruits Chest: Tenderness along costochondral margins and pressure along the anterior chest reproduces the pain he is complaining of between his shoulder blades Abdomen: Soft, nontender, good bowel tones, no flank pain Skin: Warm and dry, no rashes Neurologic: Grossly neurologically intact with no obvious asymmetries or abnormalities Extremities: No trauma, well perfused Psych: Cooperative, appropriate insight and affect Course Orders Ordered: Acetaminophen (Acetaminophen 325 Mg Tablet) 650 mg PO Q6H PRN PRN Reason: Fever/Mild Pain (1-3) Enoxaparin Sodium (Enoxaparin 40 Mg/0.4 Ml Syringe) 40 mg SUBCUT DAILY [facility] Last Admin: 01/14/24 09:11 Dose: Not Given Documented By: RADHA Fluoxetine HCl (Fluoxetine 10 Mg Capsule) 10 mg PO DAILY [facility] Last Admin: 01/14/24 09:04 Dose: 10 mg Documented By: RADHA Gabapentin (Gabapentin 300 Mg Capsule) 300 mg PO BID [facility] Last Admin: 01/14/24 21:20 Dose: 300 mg Documented By: Admin: 01/14/24 09:04 Dose: 300 mg Documented By: RADHA Dextrose (D10w) 1,000 mls @ 72 mls/hr IV CONT [facility] Last Admin: 01/13/24 22:52 Dose: Not Given Documented By: DHRUV Sodium Chloride (Normal Saline 0.9%) 1,000 mls @ 100 mls/hr IV CONT [facility] Last Admin: 01/13/24 22:53 Dose: Not Given Documented By: DHRUV Insulin Glargine (Insulin Glargine 100 Unit/Ml 3ml Pen) 20 unit SUBCUT DAILY [facility] Last Admin: 01/14/24 10:52 Dose: 20 unit Documented By: RADHA Co-signed By: Insulin Human Lispro (Insulin Lispro 100 Unit/Ml 3ml Vial) 0 unit SUBCUT ACHS [facility]; Protocol Last Admin: 01/14/24 21:02 Dose: 2 unit Documented By: DHRUV Co-signed By: MERARY Admin: 01/14/24 17:00 Dose: 3 unit Documented By: RADHA Co-signed By: Admin: 01/14/24 11:35 Dose: 8 unit Documented By: RADHA Co-signed By: Levothyroxine Sodium (Levothyroxine 50 Mcg Tablet) 50 mcg PO DAILY@0600 [facility] Last Admin: 01/15/24 05:17 Dose: 50 mcg Documented By: Admin: 01/14/24 07:00 Dose: 50 mcg Documented By: RADHA Lorazepam (Lorazepam 1 Mg Tablet) 1 mg PO BID PRN PRN Reason: nausea and vomiting Last Admin: 01/15/24 05:22 Dose: 1 mg Documented By: Admin: 01/14/24 13:39 Dose: 1 mg Documented By: RADHA Metoclopramide HCl (Metoclopramide 10 Mg/2 Ml Inj) 10 mg IV Q6HR [facility] Last Admin: 01/15/24 05:18 Dose: 10 mg Documented By: Admin: 01/15/24 00:05 Dose: 10 mg Documented By: Admin: 01/14/24 17:02 Dose: 10 mg Documented By: Admin: 01/14/24 12:10 Dose: 10 mg Documented By: Admin: 01/14/24 05:06 Dose: 10 mg Documented By: Admin: 01/14/24 01:05 Dose: 10 mg Documented By: AGUSTÍN Metoprolol Succinate (Metoprolol Er 50 Mg Tablet) 50 mg PO DAILY [facility] Last Admin: 01/14/24 09:04 Dose: 50 mg Documented By: RADHA Naloxone HCl (Naloxone 0.4 Mg/Ml Vial) 0.2 mg IV Q2MIN PRN PRN Reason: Opiate Reversal Non-Formulary Medication (Hydroxyzine Hcl) 10 mg PO TID PRN PRN Reason: anxiety Oxycodone HCl (Oxycodone Ir 5 Mg Tablet) 5 mg PO Q3H PRN PRN Reason: Pain, Moderate (4-6) Last Admin: 01/15/24 05:17 Dose: 5 mg Documented By: Admin: 01/15/24 01:04 Dose: 5 mg Documented By: Admin: 01/14/24 21:30 Dose: 5 mg Documented By: Admin: 01/14/24 17:48 Dose: 5 mg Documented By: Admin: 01/14/24 13:39 Dose: 5 mg Documented By: Admin: 01/14/24 09:23 Dose: 5 mg Documented By: RADHA Pantoprazole Sodium (Pantoprazole 40 Mg Vial) 40 mg IV BID [facility] Last Admin: 01/14/24 21:20 Dose: 40 mg Documented By: Admin: 01/14/24 09:05 Dose: 40 mg Documented By: RADHA Prochlorperazine (Prochlorperazine 10 Mg/2 Ml Vial) 5 mg IV Q6HR PRN PRN Reason: Nausea Sucralfate (Sucralfate 1 Gm Tablet) 1 gm PO BID [facility] Last Admin: 01/14/24 21:20 Dose: 1 gm Documented By: Admin: 01/14/24 09:04 Dose: 1 gm Documented By: RADHA Discontinued Medications Hydromorphone HCl (Hydromorphone 1 Mg Inj) 1 mg IV NOW ONE Stop: 01/13/24 15:56 Last Admin: 01/13/24 16:16 Dose: 1 mg Documented By: ALISTAIR Hydromorphone HCl (Hydromorphone 0.5 Mg Inj) 0.5 mg IV Q15MIN PRN PRN Reason: Pain, Last Admin: 01/14/24 04:56 Dose: 0.5 mg Documented By: Admin: 01/14/24 01:05 Dose: 0.5 mg Documented By: Admin: 01/13/24 21:45 Dose: 0.5 mg Documented By: Admin: 01/13/24 19:05 Dose: 0.5 mg Documented By: ALISTAIR Sodium Chloride (Normal Saline 0.9%) 1,000 mls @ 1,000 mls/hr IV BOLUS ONE Stop: 01/13/24 16:19 Last Infusion: 01/13/24 19:06 Dose: Infused Documented By: Admin: 01/13/24 16:16 Dose: 1,000 mls/hr Documented By: ALISTAIR Sodium Chloride (Normal Saline 0.9%) 1,000 mls @ 1,000 mls/hr IV BOLUS ONE Stop: 01/13/24 18:26 Last Infusion: 01/13/24 19:51 Dose: Infused Documented By: Admin: 01/13/24 19:07 Dose: 1,000 mls/hr Documented By: ALISTAIR INSULIN DRIP PREMIX (Myxredlin Drip Premix) 100 unit in 100 mls @ 7.258 mls/hr IV TITRATE XENA; Protocol Last Titration: 01/13/24 20:00 Dose: 0 unit/kg/hr, 0 mls/hr Documented By: DHRUV Co-signed By: AGUSTÍN Titration: 01/13/24 19:50 Dose: 0.1 unit/kg/hr, 7.258 mls/hr Documented By: SANDAR Co-signed By: CODY Admin: 01/13/24 18:55 Dose: 0.1 unit/kg/hr, 7.258 mls/hr Documented By: ALISTAIR Co-signed By: CODY Dextrose (D10w) 1,000 mls @ 125 mls/hr IV CONT X[facility] Last Admin: 01/14/24 09:57 Dose: Not Given Documented By: RADHA Insulin Human Lispro (Insulin Lispro 100 Unit/Ml 3ml Vial) 10 unit SUBCUT AC ONE Stop: 01/15/24 05:07 Last Admin: 01/15/24 05:19 Dose: 10 unit Documented By: DHRUV Co-signed By: MERARY Ketorolac Tromethamine (Ketorolac 30 Mg/Ml Vial) 15 mg IV NOW ONE Stop: 01/13/24 18:37 Last Admin: 01/13/24 19:04 Dose: 15 mg Documented By: ALISTAIR Metoclopramide HCl (Metoclopramide 10 Mg/2 Ml Inj) 10 mg IV NOW ONE Stop: 01/13/24 15:21 Last Admin: 01/13/24 16:16 Dose: 10 mg Documented By: ALISTAIR Morphine Sulfate (Morphine 4 Mg/Ml Inj) 2 mg IV Q3HR PRN PRN Reason: Pain, Severe (7-10) Pantoprazole Sodium (Pantoprazole 40 Mg Vial) 80 mg IV NOW ONE Stop: 01/13/24 15:56 Last Admin: 01/13/24 16:16 Dose: 80 mg Documented By: ALISTAIR Vital Signs Vital signs: Vital Signs - 8 hr 01/13/24 15:12 01/13/24 15:17 01/13/24 15:17 Temperature 98.1 F Pulse Rate 87 78 Respiratory Rate 16 17 Blood Pressure 115/70 115/70 Pulse Oximetry 100 100 Oxygen Delivery Method Room Air Room Air 01/13/24 15:30 01/13/24 16:00 01/13/24 16:30 Temperature Pulse Rate 90 89 92 H Respiratory Rate Blood Pressure Pulse Oximetry 100 100 100 Oxygen Delivery Method 01/13/24 17:00 01/13/24 17:30 01/13/24 18:00 Temperature Pulse Rate 93 H 90 84 Respiratory Rate Blood Pressure Pulse Oximetry 100 100 100 Oxygen Delivery Method Room Air Medical Decision Making Lab Data 01/15/24 04:40 01/15/24 04:40 Labs: Lab Results 01/13/24 01/13/24 01/13/24 Range/Units 15:52 16:06 18:24 WBC 14.5 H (4.5-11.0) X10^3/uL RBC 4.79 (4.5-5.9) X10^6/uL Hgb 11.1 L (13.5-17.5) g/dL Hct 34.7 L (41-53) % MCV 72.6 L (80-100) fL MCH 23.1 L (26-34) PG MCHC 31.9 (30-36) % RDW 17.8 H (11.6-14.8) % Plt Count 482 H (150-400) X10^3/uL Neut % (Auto) 81.1 H (50-75) % Lymph % (Auto) 11.8 L (25-40) % Garvin % (Auto) 6.6 (3-14) % Eos % (Auto) 0.1 L (2-4) % Baso % (Auto) 0.4 (0-2) % Neut # (Auto) 15294 H (3979-5916) /uL Lymph # (Auto) 1700 (9462-0543) /uL Garvin # (Auto) 1000 H (0-900) /uL Eos # (Auto) 0 (0-450) /uL Baso # (Auto) 100 (0-100) /uL VBG pH 7.58 H (7.33-7.43) VBG pCO2 21.5 L (45-50) mmHg VBG pO2 27 L (35-45) mmHg VBG HCO3 20 L (24-28) mmol/L VBG Total CO2 19 L (24-29) mmol/L VBG O2 Saturation 63 L (70-75) % VBG Base Excess -0.3 L (0-4) mmol/L FiO2 % 21 % % Sodium 132 L (137-145) mmol/L Potassium 4.6 (3.4-5.1) mmol/L Chloride 98 (98-107) mmol/L Carbon Dioxide 19 L (22-32) mmol/L BUN 23 H (9-20) mg/dL Creatinine 1.54 H (0.66-1.25) mg/dL Estimated GFR > 60 (>60) mL/min BUN/Creatinine Ratio 14.9 (6-22) Glucose 278 H (70-100) mg/dL Lactate 4.2 H* 1.3 (0.7-2.1) mmol/L Calcium 11.3 H (8.4-10.2) mg/dL Total Bilirubin 1.0 (0.2-1.3) mg/dL AST 45 (17-59) IU/L ALT 29 (<50) IU/L Alkaline Phosphatase 83 (38-126) U/L Total Protein 8.9 H (6.3-8.2) g/dL Albumin 4.9 (3.5-5.0) g/dL Globulin 4.0 (1.7-4.1) g/dL Albumin/Globulin Ratio 1.2 (1.0-2.8) Lipase 105 (23-300) U/L Ketones 0.92 H (<0.27) mmol/L Point of Care Testing Glucose POC 162 Point of care testing: Point of Care Testing Glucose POC 162 MDM Narrative Medical decision making narrative: CC: Vomiting, burning esophageal pain Complicating co-morbidities: Type 1 diabetes, gastroparesis, multiple ER visits for same with recurrent episodes of admission. He has a pattern of coming in initially being discharged from the ER and then coming back and being admitted the following day. Data collected from: patient Medical records reviewed: Please see HPI for diagnoses with recent discharge and list of multiple admissions and discharges over the last 3 months Differential considered: DKA, gastroparesis, pneumonia, pneumothorax, electrolyte abnormalities Exam documented above, pertinent findings include: Patient appears chronically ill and acutely ill but not significantly toxic. He is alert and able to participate in history and exam. He is tenderness with AP compression of the chest that reproduces the pain between his scapula. His belly is soft and nontender at this time certainly not an acute abdomen. No obvious skin changes to suggest cellulitis as a complication Lab Test results independently reviewed as above. Pertinent findings: CBC has mild leukocytosis at 14.5 with slight left shift at 81.1. H and H is 11.1 and 34.7 which is increased from his most recent visit Chemistries show bump in creatinine to 1.54. Sodium potassium are appropriate. Anion gap is 18 Venous blood gas shows a pH of 7.57 with a CO2 of 21.5 Imaging studies independently reviewed: Chest x-ray is unremarkable Treatments: Fluid resuscitation, insulin drip is started, IV Reglan helps with the nausea, parenteral Dilaudid has been helpful with the abdominal pain for complaining of musculoskeletal pain between his scapula Discussion: 33-year-old type 1 diabetic with recurrent episodes of gastroparesis, stomach pain and DKA with multiple admissions to the ER. He does have a pattern of coming to the ER stabilizing and then returning and being admitted for the next 48 hours with DKA. He requests skipping the 1st step and admission today. This does seem relatively reasonable. He has blown off enough CO2 that he is slightly alkalotic at 7.5, he does have an anion gap at 18 and ketones are low but positive. We will start him on DKA insulin drip rates, he does appear dehydrated will begin with 2 L of fluid. Will plan on rechecking labs after the 1 L of fluid. Care is reviewed with the day hospitalist and admission plan we will be turned over to the night hospitalist. Discharge Plan Departure Patient Disposition: Admitted As Inpatient Clinical Impression: Acute kidney injury, Diabetic gastroparesis DKA (diabetic ketoacidosis) Qualifiers: Diabetes mellitus type: type 1 Diabetes mellitus complication detail: without coma Qualified Code(s): E10.10 - Type 1 diabetes mellitus with ketoacidosis without coma Admit Date/Time: 01/13/24 18:48 Admit Provider: Kiran Moore
[2024-01-13 16:09] LABS: Base Excess VBG -0.3 mmol/L (0-4); HCO3 VBG 20 mmol/L (24-28); Oxygen Saturation VBG 63 % (70-75); PCO2 VBG 21.5 mmHg (45-50); PO2 VBG 27 mmHg (35-45); Total CO2 VBG 19 mmol/L (24-29); pH VBG 7.58 (7.33-7.43)
[2024-01-13] MEDS: SODIUM CHLORIDE 0.9% 1,000 ML 1000 ML IV ×2 (16:16→19:07)
[2024-01-13] MEDS: HYDROMORPHONE 1 MG INJ IV (16:16)
[2024-01-13] MEDS: PANTOPRAZOLE 40 MG VIAL 80 MG IV (16:16)
[2024-01-13] MEDS: METOCLOPRAMIDE 10 MG/2 ML INJ IV (16:16)
[2024-01-13 16:39] LABS: Add Manual Diff / Slide Review NO; Basophils Absolute Auto 100 /uL (0-100); Basophils Percent Auto 0.4 % (0-2); Eosinophils Absolute Auto 0 /uL (0-450); Eosinophils Percent Auto 0.1 % (2-4); Hematocrit 34.7 % (41-53); Hemoglobin 11.1 g/dL (13.5-17.5); Lymphocytes Absolute Auto 1700 /uL (1100-4500); Lymphocytes Percent Auto 11.8 % (25-40); Mean Corpuscular HGB Conc 31.9 % (30-36); Mean Corpuscular Hemoglobin 23.1 PG (26-34); Mean Corpuscular Volume 72.6 fL (80-100); Monocytes Absolute Auto 1000 /uL (0-900); Monocytes Percent Auto 6.6 % (3-14); Neutrophils Absolute Auto 11700 /uL (1500-7000); Neutrophils Percent Auto 81.1 % (50-75); Platelet Count 482 X10^3/uL (150-400); Red Blood Cell Count 4.79 X10^6/uL (4.5-5.9); Red Cell Distribution Width 17.8 % (11.6-14.8); White Blood Cell Count 14.5 X10^3/uL (4.5-11.0)
[2024-01-13 16:50] LABS: Alanine Aminotransferase 29 IU/L (<50); Albumin 4.9 g/dL (3.5-5.0); Albumin Globulin Ratio 1.2 (1.0-2.8); Alkaline Phosphatase 83 U/L (38-126); Aspartate Aminotransferase 45 IU/L (17-59); BUN Creatinine Ratio 14.9 (6-22); Blood Urea Nitrogen 23 mg/dL (9-20); Calcium 11.3 mg/dL (8.4-10.2); Carbon Dioxide 19 mmol/L (22-32); Chloride 98 mmol/L (98-107); Estimated Glomerular Filt Rate > 60 mL/min (>60); Glucose 278 mg/dL (70-100); Lipase 105 U/L (23-300); Sodium 132 mmol/L (137-145); Total Protein 8.9 g/dL (6.3-8.2)
[2024-01-13 16:52] LABS: HEMOLYSIS 92 (0-50)
[2024-01-13 16:53] LABS: Potassium 4.6 mmol/L (3.4-5.1)
[2024-01-13 16:56] LABS: Ketones (Beta-Hydroxybutyrate) 0.92 mmol/L (<0.27)
[2024-01-13 16:57] LABS: Lactate (Lactic Acid) 4.2 mmol/L (0.7-2.1)
[2024-01-13 18:10] LABS: Reflexed Lactate in 2 Hours Y
--- NOTE | 2024-01-13 18:33 | DI.RAD.S_ITS ---
PROCEDURE: XR CHEST 1V INDICATIONS: chest pain, DKa TECHNIQUE: One view of the chest was acquired. COMPARISON: [facility], CR, XR CHEST 1V, 12/29/2023, 21:10. FINDINGS: Surgical changes and devices: None. Lungs and pleura: Lungs are clear. No pleural effusions or pneumothorax. Mediastinum: Mediastinal contours appear normal. Heart size is normal. Bones and chest wall: No suspicious bony lesions. Overlying soft tissues appear unremarkable. IMPRESSION: No acute cardiopulmonary abnormalities or focal consolidation. Dictated by: Abdelrahman Vang M.D. on 01/13/2024 at 19:59 Approved by: Abdelrahman Vang M.D. on 01/13/2024 at 20:00
[2024-01-13 18:40] LABS: Lactate 2HR (Lactic Acid Rflx) 1.3 mmol/L (0.7-2.1)
[2024-01-13] MEDS: INSULIN DRIP PREMIX 100 UNIT/100 ML PLAST..BAG 7.258 UNIT IV (18:55)
[2024-01-13] MEDS: KETOROLAC 30 MG/ML VIAL 15 MG IV (19:04)
[2024-01-13] MEDS: HYDROMORPHONE 0.5 MG INJ IV ×2 (19:05→21:45)
[2024-01-13 19:49] LABS: BUN Creatinine Ratio 17.1 (6-22); Blood Urea Nitrogen 22 mg/dL (9-20); Calcium 9.8 mg/dL (8.4-10.2); Carbon Dioxide 23 mmol/L (22-32); Chloride 104 mmol/L (98-107); Estimated Glomerular Filt Rate > 60 mL/min (>60); Glucose 163 mg/dL (70-100); HEMOLYSIS < 15 (0-50); Potassium 3.5 mmol/L (3.4-5.1); Sodium 135 mmol/L (137-145)
--- NOTE | 2024-01-13 21:51 | P.HP_ITS ---
History of Present Illness History of Present Illness Date Patient Seen: 01/13/24 Time Patient Seen: 21:51 Date of Onset of Symptoms: 01/13/24 Chief complaint: sent by Dr Jung, vomiting and back px Narrative: The pt is a 33 yo with a long standing hx of non-compliance with his diabetes and was last admitted to our service just 2 weeks ago. The pt has a insulin pump but states the battery ran out early this morning. He awoken around 0400 with GERD like symptoms and he started to vomited. Throughout today, he reports having severe nausea and multiple time of vomiting. He is unaware of why he started to vomit, and denies any fevers, chills, diarrhea, weight loss. [facility] Medical History Anxiety Migraines Headache Shoulder pain Osteoporosis Cataracts, bilateral Partial blindness GI bleeding Gastroparesis Gastric ulcer Chronic back pain MDD (major depressive disorder), recurrent episode, moderate Generalized anxiety disorder Compression fracture Chronic lower back pain HTN (hypertension) Hypothyroidism Marijuana use History of MRSA infection History of pneumonia Blurry vision, bilateral Diabetic neuropathy Bipolar disorder with depression Nausea and vomiting Diabetes type 1, uncontrolled Diabetic gastroparesis Surgical History No pertinent past surgical history Family History Mother No known health problems Father No known health problems Social History household members: family Smoking Status: Former smoker alcohol intake: current Meds Home Medications and Allergies Home Medications Medication Instructions Recorded Confirmed Type diphenhydramine HCl 25 mg tablet 25 mg PO BEDTIME PRN Insomnia 07/09/23 01/13/24 History insulin pump syringe 3 mL 10/04/23 01/13/24 History (Extended [place]) levothyroxine 50 mcg tablet 50 mcg PO DAILY #90 tabs 10/22/23 01/13/24 Rx metoprolol succinate 50 mg 50 mg PO DAILY 10/22/23 01/13/24 History tablet,extended release 24 hr zolpidem 5 mg tablet (Ambien) 5 mg PO BEDTIME PRN Insomnia 11/05/23 01/13/24 History hydroxyzine HCl 10 mg tablet 10 mg PO TID PRN anxiety #84 tabs 11/08/23 01/13/24 Rx lorazepam 1 mg tablet 1 mg PO BID PRN nausea and 11/15/23 01/13/24 Rx vomiting #30 tabs sucralfate 1 gram tablet (Carafate) 1 g PO BID #60 tabs 11/15/23 01/13/24 Rx gabapentin 300 mg capsule 300 mg PO BID 90 days #180 caps 12/06/23 01/13/24 Rx fluoxetine 10 mg capsule 10 mg PO DAILY #30 caps 12/21/23 01/13/24 Rx blood sugar diagnostic (True 12/24/23 01/13/24 History Metrix Glucose Test Strip) blood-glucose meter (True Metrix 12/24/23 01/13/24 History Glucose Meter) insulin regular human 100 unit/mL See Rx Instructions .Route .COMPLEX 12/24/23 01/13/24 History injection solution (Humulin R Regular U-100 Insulin) lancets 30 gauge (TRUEplus Lancets) 12/24/23 01/13/24 History pantoprazole 40 mg tablet,delayed 40 mg PO 0700,2100 #60 tabs 12/25/23 01/13/24 Rx release blood-glucose meter,continuous #1 ea 12/31/23 01/13/24 Rx (Dexcom G6 [employer]) blood-glucose sensor (Dexcom G6 #3 ea 12/31/23 01/13/24 Rx Sensor device) oxycodone 5 mg tablet 5 mg PO Q2HR PRN Pain, Moderate 01/03/24 01/13/24 Rx (4-6) #15 tabs Allergies Allergy/AdvReac Type Severity Reaction Status Date / Time aspirin [ASPIRIN] Allergy Unknown MAKES ME Verified 01/13/24 15:25 GO DEAF hydrocodone [HYDROCODONE] AdvReac Intermediate VOMITING Verified 01/13/24 15:25 ibuprofen [IBUPROFEN] AdvReac Intermediate HURTS Verified 01/13/24 15:25 KIDNEYS Exam Vital Signs (past 8 hours): - 01/13/24 15:12 01/13/24 15:17 01/13/24 15:17 Temperature 98.1 F Pulse Rate 87 78 Respiratory Rate 16 17 Blood Pressure 115/70 115/70 Pulse Oximetry 100 100 Oxygen Delivery Method Room Air Room Air 01/13/24 15:30 01/13/24 16:00 01/13/24 16:30 Temperature Pulse Rate 90 89 92 H Respiratory Rate Blood Pressure Pulse Oximetry 100 100 100 Oxygen Delivery Method 01/13/24 17:00 01/13/24 17:30 01/13/24 18:00 Temperature Pulse Rate 93 H 90 84 Respiratory Rate Blood Pressure Pulse Oximetry 100 100 100 Oxygen Delivery Method Room Air 01/13/24 18:27 01/13/24 18:27 01/13/24 18:28 Temperature Pulse Rate 84 85 Respiratory Rate 16 Blood Pressure 142/96 H 142/96 H Pulse Oximetry 100 97 Oxygen Delivery Method Room Air 01/13/24 18:30 01/13/24 18:30 01/13/24 18:58 Temperature Pulse Rate 87 Respiratory Rate Blood Pressure 157/103 H 146/95 H Pulse Oximetry 100 Oxygen Delivery Method 01/13/24 18:58 01/13/24 19:00 01/13/24 19:00 Temperature Pulse Rate 87 85 Respiratory Rate Blood Pressure 151/97 H Pulse Oximetry 100 100 Oxygen Delivery Method 01/13/24 19:30 01/13/24 19:30 Temperature Pulse Rate 78 Respiratory Rate Blood Pressure 140/79 Pulse Oximetry 98 Oxygen Delivery Method Oxygen Delivery Method Room Air Const General: cooperative and comfortable Resp Auscultation: clear to auscultation bilaterally Cardio Rate: regular rate Rhythm: regular rhythm GI Auscultation: normal bowel sounds Objective Labs 01/13/24 15:52 01/13/24 19:20 Labs: Laboratory Results - last 24 hr 01/13/24 01/13/24 01/13/24 15:52 16:06 18:24 WBC 14.5 H RBC 4.79 Hgb 11.1 L Hct 34.7 L MCV 72.6 L MCH 23.1 L MCHC 31.9 RDW 17.8 H Plt Count 482 H Neut % (Auto) 81.1 H Lymph % (Auto) 11.8 L [place] % (Auto) 6.6 Eos % (Auto) 0.1 L Baso % (Auto) 0.4 Neut # (Auto) 63294 H Lymph # (Auto) 1700 [place] # (Auto) 1000 H Eos # (Auto) 0 Baso # (Auto) 100 VBG pH 7.58 H VBG pCO2 21.5 L VBG pO2 27 L VBG HCO3 20 L VBG Total CO2 19 L VBG O2 Saturation 63 L VBG Base Excess -0.3 L FiO2 % 21 % Sodium 132 L Potassium 4.6 Chloride 98 Carbon Dioxide 19 L BUN 23 H Creatinine 1.54 H Estimated GFR > 60 BUN/Creatinine Ratio 14.9 Glucose 278 H Lactate 4.2 H* 1.3 Calcium 11.3 H Total Bilirubin 1.0 AST 45 ALT 29 Alkaline Phosphatase 83 Total Protein 8.9 H Albumin 4.9 Globulin 4.0 Albumin/Globulin Ratio 1.2 Lipase 105 Ketones 0.92 H 01/13/24 19:20 WBC RBC Hgb Hct MCV MCH MCHC RDW Plt Count Neut % (Auto) Lymph % (Auto) [place] % (Auto) Eos % (Auto) Baso % (Auto) Neut # (Auto) Lymph # (Auto) [place] # (Auto) Eos # (Auto) Baso # (Auto) VBG pH VBG pCO2 VBG pO2 VBG HCO3 VBG Total CO2 VBG O2 Saturation VBG Base Excess FiO2 % Sodium 135 L Potassium 3.5 Chloride 104 Carbon Dioxide 23 BUN 22 H Creatinine 1.29 H Estimated GFR > 60 BUN/Creatinine Ratio 17.1 Glucose 163 H D Lactate Calcium 9.8 Total Bilirubin AST ALT Alkaline Phosphatase Total Protein Albumin Globulin Albumin/Globulin Ratio Lipase Ketones Assessment & Plan Assessment & Plan narrative: 1. Gastroparesis with N/V- this appears to be a recurrent problem and will admit the pt for IV rehydration and antiemetics. checking a UDS, starting on a AdA diet 2. Uncontrolled DM- the pt was started on an insuln drip in the ER despite having a glucose of 163 and since then his glucose has been in the 50-60's. will check accuchecks, he is charging his insulin pump presently, not acidotic nor in DKA, with a LA of 1.3, CO2 of 23, labs reviewed, CXR clear, 3. Hypothyroidism- restarting his home synthroid 4. CKD stage III- apears to be at baseline, continue to monitor, on IVF, Time-Based Coding :: [TOTAL MINUTES] spent with patient and on the chart (including review of chart, obtaining history, exam, reviewing outside data, placing orders, documenting exam and treatment plan, and counseling patient) on [DATE].
[2024-01-14] VITALS (50 sets, daily range): BP systolic 92–156; BP diastolic 58–78; PULSE 68–97; RESP 12–26; TEMP 36.3–36.9; O2SAT 96–99
[2024-01-14] MEDS: HYDROMORPHONE 0.5 MG INJ IV ×2 (01:05→04:56)
[2024-01-14] MEDS: METOCLOPRAMIDE 10 MG/2 ML INJ IV ×4 (01:05→17:02)
[2024-01-14 05:37] LABS: Add Manual Diff / Slide Review NO; Basophils Absolute Auto 0 /uL (0-100); Basophils Percent Auto 0.4 % (0-2); Eosinophils Absolute Auto 200 /uL (0-450); Eosinophils Percent Auto 1.6 % (2-4); Hematocrit 28.7 % (41-53); Hemoglobin 9.2 g/dL (13.5-17.5); Lymphocytes Absolute Auto 2300 /uL (1100-4500); Lymphocytes Percent Auto 21.6 % (25-40); Mean Corpuscular HGB Conc 32.1 % (30-36); Mean Corpuscular Hemoglobin 23.3 PG (26-34); Mean Corpuscular Volume 72.7 fL (80-100); Monocytes Absolute Auto 900 /uL (0-900); Neutrophils Absolute Auto 7000 /uL (1500-7000); Neutrophils Percent Auto 67.4 % (50-75); Platelet Count 336 X10^3/uL (150-400); Red Blood Cell Count 3.95 X10^6/uL (4.5-5.9); Red Cell Distribution Width 17.9 % (11.6-14.8); White Blood Cell Count 10.4 X10^3/uL (4.5-11.0)
[2024-01-14 05:50] LABS: Alanine Aminotransferase 13 IU/L (<50); Albumin 3.6 g/dL (3.5-5.0); Albumin Globulin Ratio 1.4 (1.0-2.8); Alkaline Phosphatase 66 U/L (38-126); Aspartate Aminotransferase 19 IU/L (17-59); BUN Creatinine Ratio 14.6 (6-22); Bilirubin Total 0.5 mg/dL (0.2-1.3); Blood Urea Nitrogen 22 mg/dL (9-20); Calcium 8.8 mg/dL (8.4-10.2); Carbon Dioxide 24 mmol/L (22-32); Chloride 104 mmol/L (98-107); Estimated Glomerular Filt Rate > 60 mL/min (>60); Globulin 2.6 g/dL (1.7-4.1); Glucose 187 mg/dL (70-100); HEMOLYSIS < 15 (0-50); Potassium 4.2 mmol/L (3.4-5.1); Sodium 134 mmol/L (137-145); Total Protein 6.2 g/dL (6.3-8.2)
[2024-01-14] MEDS: LEVOTHYROXINE 50 MCG TABLET PO (07:00)
--- NOTE | 2024-01-14 07:50 | PM.PN.1 ---
Subjective Subjective Interval history: From night doctor: The pt is a 33 yo with a long standing hx of non-compliance with his diabetes and was last admitted to our service just 2 weeks ago. The pt has a insulin pump but states the battery ran out early this morning. He awoken around 0400 with GERD like symptoms and he started to vomited. Throughout today, he reports having severe nausea and multiple time of vomiting. He is unaware of why he started to vomit, and denies any fevers, chills, diarrhea, weight loss. S: Exam Vital Signs (past 8 hours): - 01/14/24 00:00 01/14/24 00:00 01/14/24 00:30 Pulse Rate 73 70 Respiratory Rate 14 12 Blood Pressure 97/62 Pulse Oximetry 98 98 01/14/24 01:00 01/14/24 01:00 01/14/24 01:30 Pulse Rate 72 72 Respiratory Rate 17 14 Blood Pressure 117/72 Pulse Oximetry 98 98 01/14/24 02:00 01/14/24 02:00 01/14/24 02:30 Pulse Rate 70 69 Respiratory Rate 12 13 Blood Pressure 104/62 Pulse Oximetry 98 98 01/14/24 03:00 01/14/24 03:00 01/14/24 03:30 Pulse Rate 70 71 Respiratory Rate 13 14 Blood Pressure 105/68 Pulse Oximetry 98 97 01/14/24 04:00 01/14/24 04:00 01/14/24 04:30 Pulse Rate 70 70 Respiratory Rate 12 13 Blood Pressure 108/66 Pulse Oximetry 97 97 01/14/24 05:00 01/14/24 05:00 01/14/24 05:30 Pulse Rate 73 74 Respiratory Rate 13 13 Blood Pressure 127/78 Pulse Oximetry 98 98 01/14/24 06:00 01/14/24 06:00 01/14/24 06:30 Pulse Rate 72 77 Respiratory Rate 12 13 Blood Pressure 114/72 Pulse Oximetry 98 97 01/14/24 07:00 01/14/24 07:00 Pulse Rate 76 Respiratory Rate 13 Blood Pressure 98/64 Pulse Oximetry 98 Oxygen Delivery Method Room Air Oxygen Flow Rate 0 Narrative Exam Narrative: NAD, alert and oriented. Fluent speech. Chronicically ill in appearance. Lungs are clear, normal rate and effort. Heart is regular, no murmur gallop or rub. Abdomen is soft, non distended. Extremities are free of edema. Objective Labs 01/14/24 05:00 01/14/24 05:00 Labs: Laboratory Results - last 24 hr 01/13/24 01/13/24 01/13/24 15:52 16:06 18:24 WBC 14.5 H RBC 4.79 Hgb 11.1 L Hct 34.7 L MCV 72.6 L MCH 23.1 L MCHC 31.9 RDW 17.8 H Plt Count 482 H Neut % (Auto) 81.1 H Lymph % (Auto) 11.8 L [place] % (Auto) 6.6 Eos % (Auto) 0.1 L Baso % (Auto) 0.4 Neut # (Auto) 61432 H Lymph # (Auto) 1700 [place] # (Auto) 1000 H Eos # (Auto) 0 Baso # (Auto) 100 VBG pH 7.58 H VBG pCO2 21.5 L VBG pO2 27 L VBG HCO3 20 L VBG Total CO2 19 L VBG O2 Saturation 63 L VBG Base Excess -0.3 L FiO2 % 21 % Sodium 132 L Potassium 4.6 Chloride 98 Carbon Dioxide 19 L BUN 23 H Creatinine 1.54 H Estimated GFR > 60 BUN/Creatinine Ratio 14.9 Glucose 278 H Lactate 4.2 H* 1.3 Calcium 11.3 H Total Bilirubin 1.0 AST 45 ALT 29 Alkaline Phosphatase 83 Total Protein 8.9 H Albumin 4.9 Globulin 4.0 Albumin/Globulin Ratio 1.2 Lipase 105 Ketones 0.92 H 01/13/24 01/14/24 19:20 05:00 WBC 10.4 RBC 3.95 L Hgb 9.2 L Hct 28.7 L MCV 72.7 L MCH 23.3 L MCHC 32.1 RDW 17.9 H Plt Count 336 Neut % (Auto) 67.4 Lymph % (Auto) 21.6 L [place] % (Auto) 9.0 Eos % (Auto) 1.6 L Baso % (Auto) 0.4 Neut # (Auto) 7000 Lymph # (Auto) 2300 [place] # (Auto) 900 Eos # (Auto) 200 Baso # (Auto) 0 VBG pH VBG pCO2 VBG pO2 VBG HCO3 VBG Total CO2 VBG O2 Saturation VBG Base Excess FiO2 % Sodium 135 L 134 L Potassium 3.5 4.2 Chloride 104 104 Carbon Dioxide 23 24 BUN 22 H 22 H Creatinine 1.29 H 1.51 H Estimated GFR > 60 > 60 BUN/Creatinine Ratio 17.1 14.6 Glucose 163 H D 187 H Lactate Calcium 9.8 8.8 Total Bilirubin 0.5 AST 19 ALT 13 Alkaline Phosphatase 66 Total Protein 6.2 L Albumin 3.6 Globulin 2.6 Albumin/Globulin Ratio 1.4 Lipase Ketones PFSH Medical History Anxiety Migraines Headache Shoulder pain Osteoporosis Cataracts, bilateral Partial blindness GI bleeding Gastroparesis Gastric ulcer Chronic back pain MDD (major depressive disorder), recurrent episode, moderate Generalized anxiety disorder Compression fracture Chronic lower back pain HTN (hypertension) Hypothyroidism Marijuana use History of MRSA infection History of pneumonia Blurry vision, bilateral Diabetic neuropathy Bipolar disorder with depression Nausea and vomiting Diabetes type 1, uncontrolled Diabetic gastroparesis Surgical History No pertinent past surgical history Family History Mother No known health problems Father No known health problems Social History household members: family Smoking Status: Former smoker alcohol intake: current Assessment & Plan Assessment & Plan narrative: 1. Gastroparesis with N/V- this appears to be a recurrent problem and will admit the pt for IV rehydration and antiemetics. checking a UDS, starting on a AdA diet 2. Uncontrolled DM- the pt was started on an insuln drip in the ER despite having a glucose of 163 and since then his glucose has been in the 50-60's. will check accuchecks, he is charging his insulin pump presently, not acidotic nor in DKA, with a LA of 1.3, CO2 of 23, labs reviewed, CXR clear, 3. Hypothyroidism- restarting his home synthroid 4. CKD stage III- apears to be at baseline, continue to monitor, on IVF PLAN: HANS: 01/14. Time-Based Coding :: [TOTAL MINUTES] spent with patient and on the chart (including review of chart, obtaining history, exam, reviewing outside data, placing orders, documenting exam and treatment plan, and counseling patient) on [DATE].
[2024-01-14 08:17] LABS: MRSA (Nasal) PCR NOT DETECTED (Not Detect)
[2024-01-14] MEDS: METOPROLOL ER 50 MG TABLET PO (09:04)
[2024-01-14] MEDS: FLUoxetine 10 MG CAPSULE PO (09:04)
[2024-01-14] MEDS: GABAPENTIN 300 MG CAPSULE PO ×2 (09:04→21:20)
[2024-01-14] MEDS: SUCRALFATE 1 GM TABLET PO ×2 (09:04→21:20)
[2024-01-14] MEDS: PANTOPRAZOLE 40 MG VIAL IV ×2 (09:05→21:20)
[2024-01-14] MEDS: OXYCODONE IR 5 MG TABLET PO ×4 (09:23→21:30)
--- NOTE | 2024-01-14 10:34 | P.PN_ITS ---
Subjective Subjective Interval history: From night doctor: The pt is a 33 yo with a long standing hx of non-compliance with his diabetes and was last admitted to our service just 2 weeks ago. The pt has a insulin pump but states the battery ran out early this morning. He awoken around 0400 with GERD like symptoms and he started to vomited. Throughout today, he reports having severe nausea and multiple time of vomiting. He is unaware of why he started to vomit, and denies any fevers, chills, diarrhea, weight loss. S: He would some orange juice which may have started out his nausea yesterday morning. He took this for hypoglycemia. He does not have glucose tablets at home. He typically uses orange or cranberry juice. He states his pump was working at home, however it has not working here in the battery appears to be . He was minimal abdominal pain today. His nausea is improved. Exam Vital Signs (past 8 hours): - 01/14/24 03:00 01/14/24 03:00 01/14/24 03:30 Pulse Rate 70 71 Respiratory Rate 13 14 Blood Pressure 105/68 Pulse Oximetry 98 97 Oxygen Delivery Method 01/14/24 04:00 01/14/24 04:00 01/14/24 04:30 Pulse Rate 70 70 Respiratory Rate 12 13 Blood Pressure 108/66 Pulse Oximetry 97 97 Oxygen Delivery Method 01/14/24 05:00 01/14/24 05:00 01/14/24 05:30 Pulse Rate 73 74 Respiratory Rate 13 13 Blood Pressure 127/78 Pulse Oximetry 98 98 Oxygen Delivery Method 01/14/24 06:00 01/14/24 06:00 01/14/24 06:30 Pulse Rate 72 77 Respiratory Rate 12 13 Blood Pressure 114/72 Pulse Oximetry 98 97 Oxygen Delivery Method 01/14/24 07:00 01/14/24 07:00 01/14/24 07:00 Pulse Rate 76 Respiratory Rate 13 Blood Pressure 98/64 Pulse Oximetry 98 Oxygen Delivery Method Room Air 01/14/24 07:30 01/14/24 08:00 01/14/24 08:00 Pulse Rate 74 75 Respiratory Rate 14 14 Blood Pressure 92/58 L Pulse Oximetry 98 98 Oxygen Delivery Method 01/14/24 08:30 01/14/24 09:04 01/14/24 09:30 Pulse Rate 75 92 H 82 Respiratory Rate 15 23 17 Blood Pressure Pulse Oximetry 98 99 Oxygen Delivery Method 01/14/24 09:53 01/14/24 10:00 Pulse Rate 81 81 Respiratory Rate 17 Blood Pressure 148/61 H Pulse Oximetry Oxygen Delivery Method Oxygen Delivery Method Room Air Oxygen Flow Rate 0 Narrative Exam Narrative: NAD, alert and oriented. Fluent speech. Chronically ill in appearance. Lungs are clear, normal rate and effort. Heart is regular, no murmur gallop or rub. Abdomen is soft, non distended. Extremities are free of edema. Objective Labs 01/14/24 05:00 01/14/24 05:00 Labs: Laboratory Results - last 24 hr 01/13/24 01/13/24 01/13/24 15:52 16:06 18:24 WBC 14.5 H RBC 4.79 Hgb 11.1 L Hct 34.7 L MCV 72.6 L MCH 23.1 L MCHC 31.9 RDW 17.8 H Plt Count 482 H Neut % (Auto) 81.1 H Lymph % (Auto) 11.8 L [place] % (Auto) 6.6 Eos % (Auto) 0.1 L Baso % (Auto) 0.4 Neut # (Auto) 38651 H Lymph # (Auto) 1700 [place] # (Auto) 1000 H Eos # (Auto) 0 Baso # (Auto) 100 VBG pH 7.58 H VBG pCO2 21.5 L VBG pO2 27 L VBG HCO3 20 L VBG Total CO2 19 L VBG O2 Saturation 63 L VBG Base Excess -0.3 L FiO2 % 21 % Sodium 132 L Potassium 4.6 Chloride 98 Carbon Dioxide 19 L BUN 23 H Creatinine 1.54 H Estimated GFR > 60 BUN/Creatinine Ratio 14.9 Glucose 278 H Lactate 4.2 H* 1.3 Calcium 11.3 H Total Bilirubin 1.0 AST 45 ALT 29 Alkaline Phosphatase 83 Total Protein 8.9 H Albumin 4.9 Globulin 4.0 Albumin/Globulin Ratio 1.2 Lipase 105 Nasal Screen MRSA (PCR) Ketones 0.92 H 01/13/24 01/13/24 01/14/24 19:20 21:49 05:00 WBC 10.4 RBC 3.95 L Hgb 9.2 L Hct 28.7 L MCV 72.7 L MCH 23.3 L MCHC 32.1 RDW 17.9 H Plt Count 336 Neut % (Auto) 67.4 Lymph % (Auto) 21.6 L [place] % (Auto) 9.0 Eos % (Auto) 1.6 L Baso % (Auto) 0.4 Neut # (Auto) 7000 Lymph # (Auto) 2300 [place] # (Auto) 900 Eos # (Auto) 200 Baso # (Auto) 0 VBG pH VBG pCO2 VBG pO2 VBG HCO3 VBG Total CO2 VBG O2 Saturation VBG Base Excess FiO2 % Sodium 135 L 134 L Potassium 3.5 4.2 Chloride 104 104 Carbon Dioxide 23 24 BUN 22 H 22 H Creatinine 1.29 H 1.51 H Estimated GFR > 60 > 60 BUN/Creatinine Ratio 17.1 14.6 Glucose 163 H D 187 H Lactate Calcium 9.8 8.8 Total Bilirubin 0.5 AST 19 ALT 13 Alkaline Phosphatase 66 Total Protein 6.2 L Albumin 3.6 Globulin 2.6 Albumin/Globulin Ratio 1.4 Lipase Nasal Screen MRSA (PCR) Not detected Ketones PFSH Medical History Anxiety Migraines Headache Shoulder pain Osteoporosis Cataracts, bilateral Partial blindness GI bleeding Gastroparesis Gastric ulcer Chronic back pain MDD (major depressive disorder), recurrent episode, moderate Generalized anxiety disorder Compression fracture Chronic lower back pain HTN (hypertension) Hypothyroidism Marijuana use History of MRSA infection History of pneumonia Blurry vision, bilateral Diabetic neuropathy Bipolar disorder with depression Nausea and vomiting Diabetes type 1, uncontrolled Diabetic gastroparesis Surgical History No pertinent past surgical history Family History Mother No known health problems Father No known health problems Social History household members: family Smoking Status: Former smoker alcohol intake: current Assessment & Plan Assessment & Plan narrative: 1. Nausea and vomiting with history of gastroparesis, present on admission and active. 2. Dm 1 with hyperglycemia and no DKA, present on admission and active. Plan: -transitioned to Lantus and correctional lispro. -stop IV pain medications -continue IV fluids and anticipate discharge within 24 hours. Time-Based Coding :: [TOTAL MINUTES] spent with patient and on the chart (including review of chart, obtaining history, exam, reviewing outside data, placing orders, documenting exam and treatment plan, and counseling patient) on [DATE].
[2024-01-14] MEDS: INSULIN GLARGINE 100 UNIT/ML 3ML PEN 20 UNIT SUBCUT (10:52)
[2024-01-14] MEDS: INSULIN LISPRO 100 UNIT/ML 3ML VIAL SUBCUT ×3 (11:35→21:02)
[2024-01-14] MEDS: LORazepam 1 MG TABLET PO (13:39)
--- NOTE | 2024-01-14 15:24 | CM.DANOTE ---
Reviewed EMR and team rounds for status updates. Went to meet with pt in the room, however he was found to be asleep with the blanket over his head. Pt resides modified independently with his granddmother in [place]. He did drive himself here this admission, and will drive himself home. HANS: 01/15/24. Will need to send an update to the transitional care managers at time of d/c. Payor: Mickey PCP: Dr. James Jung Pt is a 33 year-old M with a hx of type 1 diabetes and and gastroparesis with frequent, multiple hospitalizations for DKA/gastroparesis episodes, poorly managed diabetes, and inability to care for himself independently without great difficulty. He had driven himself to his PCP appointment yesterday and c/o intractable nausea/vomiting that had started when his battery had run out in his insulin pump several hours earlier. He was thought initially to be in DKA, however further tests and labs did not indicate DKA. He was started on a dose of IV pain medication for gastroparesis pain, antiemetics, and fluids. He has improved throughout the day, and has been mostly sleeping. Prior to d/c, GORDON will assist in coordinating a f/u appt. with his PCP for post-hospitalization f/u and continued diabetes management. Discharge Planning/Care Management CM Discharge Assessment Start: 01/14/24 15:21 Freq: Status: Active Protocol: Document 01/14/24 15:21 DPL (Rec: 01/14/24 15:24 DPL [id number]) Discharge Planning Assessment Assigned Prepress Operator GORDON Bolaños Advance Directives? No Advance Directives on File No History Provided By Medical Record Expected Length of Stay 1 Has Patient been admitted in last 30 Yes days? Comment multiple hospitalizations over the last few months for the same thing Prior Living Arrangements House Comment Pt lives with his granddmother in [place]. Household Members family Type of transporation used prior to Relies on Others admit Comment Pt did, however, drive his granddmonther's car to the hospital this time. Independent with ADL's Yes Is patient alert and oriented? Yes Needs Assistance With Managing Medications Caregiver for Another No Comment Pt has an insulin pump and CGM . Comment OP Endocrinology f/u Barriers to Discharge No Discharge Plan Home Transportation Arrangement Pt will drive himself home. Referrals Initiated Other Additional Comment Patient would benefit from [facility] caregiver in the home vs [facility] Whiteboard Updated in Patient Room with No name and ext. # of Prepress Operator Review Status In Process Please Provide Date Initial DC 01/14/24 Assessment Was Performed
[2024-01-15] VITALS (13 sets, daily range): BP systolic 89–119; BP diastolic 52–79; PULSE 74–89; RESP 12–20; TEMP 36.5; O2SAT 97
[2024-01-15] MEDS: METOCLOPRAMIDE 10 MG/2 ML INJ IV ×3 (00:05→12:08)
[2024-01-15] MEDS: OXYCODONE IR 5 MG TABLET PO ×4 (01:04→12:48)
[2024-01-15] MEDS: LEVOTHYROXINE 50 MCG TABLET PO (05:17)
[2024-01-15] MEDS: INSULIN LISPRO 100 UNIT/ML 3ML VIAL 10 UNIT SUBCUT (05:19)
[2024-01-15] MEDS: LORazepam 1 MG TABLET PO (05:22)
[2024-01-15 05:50] LABS: Add Manual Diff / Slide Review NO; Basophils Absolute Auto 0 /uL (0-100); Basophils Percent Auto 0.5 % (0-2); Eosinophils Absolute Auto 100 /uL (0-450); Eosinophils Percent Auto 1.4 % (2-4); Hematocrit 29.4 % (41-53); Hemoglobin 9.2 g/dL (13.5-17.5); Lymphocytes Absolute Auto 2000 /uL (1100-4500); Lymphocytes Percent Auto 23.1 % (25-40); Mean Corpuscular HGB Conc 31.3 % (30-36); Mean Corpuscular Hemoglobin 23.2 PG (26-34); Mean Corpuscular Volume 74.2 fL (80-100); Monocytes Absolute Auto 700 /uL (0-900); Monocytes Percent Auto 8.2 % (3-14); Neutrophils Absolute Auto 5700 /uL (1500-7000); Neutrophils Percent Auto 66.8 % (50-75); Platelet Count 312 X10^3/uL (150-400); Red Blood Cell Count 3.96 X10^6/uL (4.5-5.9); White Blood Cell Count 8.5 X10^3/uL (4.5-11.0)
[2024-01-15 05:56] LABS: BUN Creatinine Ratio 20.3 (6-22); Blood Urea Nitrogen 26 mg/dL (9-20); Calcium 8.7 mg/dL (8.4-10.2); Carbon Dioxide 19 mmol/L (22-32); Chloride 98 mmol/L (98-107); Estimated Glomerular Filt Rate > 60 mL/min (>60); Glucose 434 mg/dL (70-100); HEMOLYSIS < 15 (0-50); Lactate (Lactic Acid) 0.9 mmol/L (0.7-2.1); Potassium 4.4 mmol/L (3.4-5.1); Sodium 129 mmol/L (137-145)
[2024-01-15] MEDS: PANTOPRAZOLE 40 MG VIAL IV (08:53)
[2024-01-15] MEDS: SUCRALFATE 1 GM TABLET PO (08:54)
[2024-01-15] MEDS: FLUoxetine 10 MG CAPSULE PO (08:54)
[2024-01-15] MEDS: INSULIN LISPRO 100 UNIT/ML 3ML VIAL SUBCUT (08:55)
[2024-01-15] MEDS: INSULIN GLARGINE 100 UNIT/ML 3ML PEN 20 UNIT SUBCUT (08:55)
--- NOTE | 2024-01-15 11:40 | CM.DPNOTE ---
DCP Note CONTACT LENS BLOCKER reviewed EMR. Per hospitalist, pt cleared to dc home today. CONTACT LENS BLOCKER messaged TCM team for updates/to request assistance in next f/u appt. Pt drove self here, will drive self home. P: dc home with continued close OP f/u and support. CM team will continue to follow closely GORDON Sumner
--- NOTE | 2024-01-15 16:42 | P.DS_ITS ---
History of Present Illness History of Present Illness Date Patient Seen: 01/15/24 Time Patient Seen: 08:50 Chief complaint: sent by Dr Jung, vomiting and back px Narrative: Narrative: The pt is a 33 yo with a long standing hx of non-compliance with his diabetes and was last admitted to our service just 2 weeks ago. The pt has a insulin pump but states the battery ran out early this morning. He awoken around 0400 with GERD like symptoms and he started to vomited. Throughout today, he reports having severe nausea and multiple time of vomiting. He is unaware of why he started to vomit, and denies any fevers, chills, diarrhea, weight loss. Discharge Providers Provider Date of admission: 01/13/24 18:48 Discharge Date: 01/15/24 Primary care physician: James Jung DO Discharge provider: Onesimo Faye MD Summary Hospital Course Discharge Diagnosis: 1. Nausea and vomiting with history of gastroparesis 2. Dm 1 with hyperglycemia and no DKA Hospital Course: The patient was admitted and placed on IV insulin drip, and given absence of DKA, shortly transitioned back to his home insulin regimen. He was treated with IV hydration and antiemetics. He improved significantly. IV analgesics were discontinued and he was able to tolerate his usual diet without difficulty. No other issues arose. Arrangements were made for discharge home with outpatient follow-up Status at Discharge Cognitive/behavioral status at discharge: oriented Functional status at discharge: independent ambulation Overall status at discharge: patient is back to baseline Time Spent with Patient Time spent: Less than 30 minutes Exam Vital Signs (past 8 hours): - 01/15/24 08:53 Blood Pressure 89/52 L Oxygen Delivery Method Room Air Oxygen Flow Rate 0 Narrative Exam Narrative: NAD, alert and oriented. Fluent speech. Chronically ill in appearance. Lungs are clear, normal rate and effort. Heart is regular, no murmur gallop or rub. Abdomen is soft, non distended. Extremities are free of edema. Objective Imaging Chest x-ray 01/13/2024:: Radiologist's impression: No acute cardiopulmonary abnormalities or focal consolidation. Labs 01/15/24 04:40 01/15/24 04:40 Labs: Laboratory Results - last 24 hr 01/15/24 04:40 WBC 8.5 RBC 3.96 L Hgb 9.2 L Hct 29.4 L MCV 74.2 L MCH 23.2 L MCHC 31.3 RDW 18.0 H Plt Count 312 Neut % (Auto) 66.8 Lymph % (Auto) 23.1 L [place] % (Auto) 8.2 Eos % (Auto) 1.4 L Baso % (Auto) 0.5 Neut # (Auto) 5700 Lymph # (Auto) 2000 [place] # (Auto) 700 Eos # (Auto) 100 Baso # (Auto) 0 Sodium 129 L Potassium 4.4 Chloride 98 Carbon Dioxide 19 L BUN 26 H Creatinine 1.28 H Estimated GFR > 60 BUN/Creatinine Ratio 20.3 Glucose 434 H D Lactate 0.9 Calcium 8.7 PFSH Medical History Anxiety Migraines Headache Shoulder pain Osteoporosis Cataracts, bilateral Partial blindness GI bleeding Gastroparesis Gastric ulcer Chronic back pain MDD (major depressive disorder), recurrent episode, moderate Generalized anxiety disorder Compression fracture Chronic lower back pain HTN (hypertension) Hypothyroidism Marijuana use History of MRSA infection History of pneumonia Blurry vision, bilateral Diabetic neuropathy Bipolar disorder with depression Nausea and vomiting Diabetes type 1, uncontrolled Diabetic gastroparesis Surgical History No pertinent past surgical history Family History Mother No known health problems Father No known health problems Social History household members: family Smoking Status: Former smoker alcohol intake: current Discharge Plan Discharge Plan Patient Disposition: Home Provider Discharge Comment: Followup with Dr. Jung 1 week Discharge orders & Medications Prescriptions: Continued fluoxetine 10 mg capsule 10 mg PO DAILY Qty: 30 2RF hydroxyzine HCl 10 mg tablet 10 mg PO TID PRN (Reason: anxiety) Qty: 84 0RF metoprolol succinate 50 mg tablet extended release 24 hr 50 mg PO DAILY levothyroxine 50 mcg tablet 50 mcg PO DAILY Qty: 90 1RF sucralfate [Carafate] 1 gram tablet 1 g PO BID Qty: 60 1RF lorazepam 1 mg tablet 1 mg PO BID PRN (Reason: nausea and vomiting) Qty: 30 1RF diphenhydramine HCl 25 mg Tablet 25 mg PO BEDTIME PRN (Reason: Insomnia) (DME) Extended [place] 3 mL Misc MISCELLANEOUS Rx Instructions: patient uses insulin pump zolpidem [Ambien] 5 mg Tablet 5 mg PO BEDTIME PRN (Reason: Insomnia) gabapentin 300 mg Capsule 300 mg PO BID 90 Days Qty: 180 0RF (DME) True Metrix Glucose Test Strip Strip MISCELLANEOUS 4XD Humulin R Regular U-100 Insuln 100 unit/mL solution See Rx Instructions .ROUTE .COMPLEX Rx Instructions: 90 unit via continuous subcutaneous infusion (DME) lancets [TRUEplus Lancets] 30 gauge misc MISCELLANEOUS 4XD (DME) blood-glucose meter [True Metrix Glucose Meter] Misc MISCELLANEOUS pantoprazole 40 mg Tablet,Delayed Release (Dr/Ec) 40 mg PO 0700,2100 Qty: 60 0RF paroxetine HCl 10 mg tablet 10 mg PO DAILY metoclopramide HCl 5 mg tablet 5 mg PO DAILY (DME) Dexcom G6 Sensor Device 1 ea MISCELLANEOUS Q10D (DME) Dexcom G6 Inspector And Unloader Misc MISCELLANEOUS Patient Comments: [NO ORIGINAL SIG] Follow up/Referrals: James Jung, [Primary Care Provider] - Visit Report/Discharge Packet Stand Alone Forms: Patient Portal/API, Stroke Signs & Symptoms Discharge Data Primary Care Provider: James Jung Quality MIPS - Admit I confirm the patient?s Advance Care Plan is present, Code status is documented, Surrogate decision maker is in patient?s record [If Yes, STOP here]: Yes MIPS - Meds 'Current medications' to include all prescriptions, [id number] products, herbals, cannabis/cannabidiol products, and vitamin/mineral/dietary (nutritional) supplements. I have utilized all available resources to obtain, update, or review the patient?s current medications. [If Yes, STOP here]: Yes MIPS - DC The patient has a history of heart transplant or Left Ventricular Assist Device (LVAD). If yes, STOP here.: No The patient has current or prior documentation of left ventricular ejection fraction (LVEF) less than or equal to 40%, or moderate or severely depressed left ventricular systolic function.: No A. The patient was prescribed or already taking an Angiotensin-Converting Enzyme (CHEYENNE) Inhibitor, or Angiotensin Receptor Jo (ARB).: No B. The patient was prescribed or already taking a beta-jo. [If Yes to Both A & B, STOP here]: No Patient not prescribed/taking [place] or ARB, no reason given.: No Patient not prescribed/taking beta-jo, no reason given.: No PROFEE Charge Codes Discharge inpatient/observation: [id number]
== END 2024-01-15 13:05 | disposition home or self-care (01) | DRG 420 ==
LOC: ED 18:39 → ICU 01-14 06:25
PROVIDERS: Internal Medicine; Admitting Provider Hospitalist; Emergency Provider Emergency Medicine; PCP Family Medicine; Referring Provider Emergency Medicine; Visit Provider Hospitalist
DX: E10.65 Type 1 diabetes mellitus with hyperglycemia (principal); E03.9 Hypothyroidism, unspecified; N18.30 Chronic kidney disease, stage 3 unspecified; F41.9 Anxiety disorder, unspecified; I12.9 Hypertensive chronic kidney disease with stage 1 through stage 4 chronic kidney disease, or unspecified chronic kidney disease; E10.22 Type 1 diabetes mellitus with diabetic chronic kidney disease; Z96.41 Presence of insulin pump (external) (internal); Z79.4 Long term (current) use of insulin; Z87.891 Personal history of nicotine dependence; Z91.148 Patient's other noncompliance with medication regimen for other reason; Z87.19 Personal history of other diseases of the digestive system; E86.0 Dehydration; R33.9 Retention of urine, unspecified
CPT/HCPCS: 36415; 71045; 80048; 80053; 82009; 82805; 82962; 83605; 83690; 85025; 87040; 87797; 96361; 96365; 96372; 96375; 96376; 99284; 99285; G0378; J1171; J1650; J1815; J1885; J2470; J2765

== ENCOUNTER 2024-01-19 20:38 | Emergency (ER) | payer OTHER, MEDICAID, SELFPAY ==
[2024-01-13 20:30] VITALS: BMI 22.9
[2024-01-19 20:38] VITALS: BP 112/83; PULSE 101; RESP 20; TEMP 36.1; O2SAT 100; BMI 22.9
[2024-01-19 21:00] VITALS: BP 115/88; PULSE 97; RESP 25; O2SAT 100
[2024-01-19] MEDS: ONDANSETRON 4 MG/2 ML INJ IV (21:27)
[2024-01-19] MEDS: SODIUM CHLORIDE 0.9% 1,000 ML 1000 ML IV (21:28)
[2024-01-19 21:30] VITALS: PULSE 100; RESP 18; O2SAT 100
[2024-01-19 21:33] LABS: Base Excess VBG 1.7 mmol/L (0-4); HCO3 VBG 22 mmol/L (24-28); Oxygen Saturation VBG 36 % (70-75); PCO2 VBG 21.3 mmHg (45-50); PO2 VBG 17 mmHg (35-45); Total CO2 VBG 20 mmol/L (24-29); pH VBG 7.61 (7.33-7.43)
[2024-01-19 21:46] LABS: Add Manual Diff / Slide Review NO; Basophils Absolute Auto 100 /uL (0-100); Basophils Percent Auto 0.6 % (0-2); Eosinophils Absolute Auto 0 /uL (0-450); Hematocrit 31.5 % (41-53); Hemoglobin 10.2 g/dL (13.5-17.5); Lymphocytes Absolute Auto 1000 /uL (1100-4500); Lymphocytes Percent Auto 10.7 % (25-40); Mean Corpuscular HGB Conc 32.4 % (30-36); Mean Corpuscular Hemoglobin 23.2 PG (26-34); Mean Corpuscular Volume 71.7 fL (80-100); Monocytes Absolute Auto 500 /uL (0-900); Monocytes Percent Auto 5.4 % (3-14); Neutrophils Absolute Auto 8200 /uL (1500-7000); Neutrophils Percent Auto 83.3 % (50-75); Platelet Count 442 X10^3/uL (150-400); Red Blood Cell Count 4.39 X10^6/uL (4.5-5.9); Red Cell Distribution Width 17.8 % (11.6-14.8); White Blood Cell Count 9.8 X10^3/uL (4.5-11.0)
[2024-01-19 21:47] LABS: Alanine Aminotransferase 35 IU/L (<50); Albumin 4.5 g/dL (3.5-5.0); Albumin Globulin Ratio 1.2 (1.0-2.8); Alkaline Phosphatase 112 U/L (38-126); Aspartate Aminotransferase 37 IU/L (17-59); BUN Creatinine Ratio 16.3 (6-22); Blood Urea Nitrogen 22 mg/dL (9-20); Calcium 9.9 mg/dL (8.4-10.2); Carbon Dioxide 21 mmol/L (22-32); Chloride 97 mmol/L (98-107); Estimated Glomerular Filt Rate > 60 mL/min (>60); Globulin 3.7 g/dL (1.7-4.1); Glucose 294 mg/dL (70-100); HEMOLYSIS < 15 (0-50); Lipase 45 U/L (23-300); Potassium 4.3 mmol/L (3.4-5.1); Sodium 132 mmol/L (137-145); Total Protein 8.2 g/dL (6.3-8.2)
--- NOTE | 2024-01-19 22:01 | ED_ITS ---
HPI - Nausea/Vomiting/Diarrhea General Chief complaint: Nausea/Vomiting/Diarrhea Stated complaint: NV Time Seen by Provider: 01/19/24 21:15 Source: patient and EMS Mode of arrival: EMS History of Present Illness HPI Narrative: 33-year-old male with history of diabetes, history of diabetic gastroparesis, with 2 days duration of nausea and multiple episodes nonbloody emesis. Some occasional abdominal cramping. Denies headache, neck pain, photophobia. He denies weakness to face arm or leg. No injury trauma new activities. No fevers or chills. No shortness of breath or chest pain, denies recent cough. No changes in medications. He has taken Reglan regularly for his gastroparesis, had 2 doses earlier today, fell too nauseated to get the last dose down today. Related Data Home Medications Medication Instructions Recorded Confirmed diphenhydramine HCl 25 mg tablet 25 mg PO BEDTIME PRN Insomnia 07/09/23 01/18/24 insulin pump syringe 3 mL 10/04/23 01/18/24 (Extended [place]) metoprolol succinate 50 mg 50 mg PO DAILY 10/22/23 01/18/24 tablet,extended release 24 hr zolpidem 5 mg tablet (Ambien) 5 mg PO BEDTIME PRN Insomnia 11/05/23 01/18/24 blood sugar diagnostic (True 12/24/23 01/18/24 Metrix Glucose Test Strip) blood-glucose meter (True Metrix 12/24/23 01/18/24 Glucose Meter) insulin regular human 100 unit/mL See Rx Instructions .Route .COMPLEX 12/24/23 01/18/24 injection solution (Humulin R Regular U-100 Insulin) lancets 30 gauge (TRUEplus Lancets) 12/24/23 01/18/24 blood-glucose meter,continuous 01/14/24 01/18/24 (Dexcom G6 Extruder Operator) blood-glucose sensor (EVIIVOcom G6 01/14/24 01/18/24 Sensor device) Previous Rx's Medication Instructions Recorded levothyroxine 50 mcg tablet 50 mcg PO DAILY #90 tabs 10/22/23 hydroxyzine HCl 10 mg tablet 10 mg PO TID PRN anxiety #84 tabs 11/08/23 lorazepam 1 mg tablet 1 mg PO BID PRN nausea and 11/15/23 vomiting #30 tabs sucralfate 1 gram tablet (Carafate) 1 g PO BID #60 tabs 11/15/23 gabapentin 300 mg capsule 300 mg PO BID 90 days #180 caps 12/06/23 fluoxetine 10 mg capsule 10 mg PO DAILY #30 caps 12/21/23 pantoprazole 40 mg tablet,delayed 40 mg PO 0700,2100 #60 tabs 12/25/23 release blood-glucose transmitter (Dexcom #1 ea 01/18/24 G6 Transmitter device) metoclopramide HCl 5 mg tablet 5 mg PO DAILY #90 tabs 01/19/24 Allergies Allergy/AdvReac Type Severity Reaction Status Date / Time aspirin [ASPIRIN] Allergy Unknown MAKES ME Verified 01/19/24 20:47 GO DEAF hydrocodone [HYDROCODONE] AdvReac Intermediate VOMITING Verified 01/19/24 20:47 ibuprofen [IBUPROFEN] AdvReac Intermediate HURTS Verified 01/19/24 20:47 KIDNEYS Review of Systems Review of Systems Narrative: see HPI Patient History Medical History (Updated 01/19/24 @ 22:09 by Ronaldo Griffin MD) Anxiety Migraines Headache Shoulder pain Osteoporosis Cataracts, bilateral Partial blindness GI bleeding Gastroparesis Gastric ulcer Chronic back pain MDD (major depressive disorder), recurrent episode, moderate Generalized anxiety disorder Compression fracture Chronic lower back pain HTN (hypertension) Hypothyroidism Marijuana use History of MRSA infection History of pneumonia Blurry vision, bilateral Diabetic neuropathy Bipolar disorder with depression Nausea and vomiting Diabetes type 1, uncontrolled Diabetic gastroparesis Surgical History No pertinent past surgical history Family History Mother No known health problems Father No known health problems Social History household members: family Smoking Status: Former smoker alcohol intake: current Smoking Status: Former smoker alcohol intake frequency: holidays/special occasions only Alcohol type: hard liquor Exam Narrative Exam Narrative: GENERAL: Well-developed patient, in mild distress. HEAD: Atraumatic. Normocephalic. EYES: Pupils equal round and reactive. Extraocular motions intact. No scleral icterus. No injection or drainage. ENT: Nose without bleeding, purulent drainage. Throat without erythema, tonsillar hypertrophy or exudate. Airway patent. NECK: Trachea midline. Non tender CARDIOVASCULAR: Regular rate and rhythm without murmurs, gallops, or rubs. RESPIRATORY: Clear to auscultation. Breath sounds equal bilaterally. No wheezes, rales, or rhonchi. GASTROINTESTINAL: Abdomen soft, non-tender, nondistended. EXTREMITIES: No edema or joint tenderness. BACK: Nontender without deformity or crepitance. No flank tenderness. NEURO: AOx3. Motor functions grossly nonfocal SKIN: No rash or erythema of visible areas Initial Vital Signs Initial Vital Signs: Vital Signs Temperature 97.0 F L 01/19/24 20:38 Pulse Rate 101 H 01/19/24 20:38 Respiratory Rate 20 01/19/24 20:38 Blood Pressure 112/83 01/19/24 20:38 Pulse Oximetry 100 01/19/24 20:38 Oxygen Delivery Method Room Air 01/19/24 20:38 Course Orders Ordered: ED Orders 01/19/24 21:10 Comprehensive Metabolic Panel Stat Lipase Stat 01/19/24 21:12 Venous Blood Gas Routine 01/19/24 21:37 Complete Blood Count AUTO DIFF Stat Discontinued Medications Acetaminophen (Acetaminophen 325 Mg Tablet) 650 mg PO NOW ONE Stop: 01/19/24 22:11 Last Admin: 01/19/24 22:33 Dose: 650 mg Documented By: KELLE Sodium Chloride (Normal Saline 0.9%) 1,000 mls @ 1,000 mls/hr IV BOLUS ONE Stop: 01/19/24 22:14 Last Infusion: 01/19/24 22:38 Dose: Infused Documented By: Admin: 01/19/24 21:28 Dose: 1,000 mls/hr Documented By: KELLE Metoclopramide HCl (Metoclopramide 10 Mg/2 Ml Inj) 10 mg IV NOW ONE Stop: 01/19/24 22:06 Last Admin: 01/19/24 22:10 Dose: 10 mg Documented By: KELLE Ondansetron HCl (Ondansetron 4 Mg/2 Ml Inj) 4 mg IV NOW PRN PRN Reason: Nausea And Vomiting Last Admin: 01/19/24 21:27 Dose: 4 mg Documented By: KELLE Ondansetron HCl (Ondansetron 4 Mg Odt) 4 mg PO NOW PRN PRN Reason: Nausea And Vomiting Vital Signs Vital signs: Vital Signs - 8 hr 01/19/24 20:38 01/19/24 21:00 01/19/24 21:00 Temperature 97.0 F L Pulse Rate 101 H 97 H Respiratory Rate 20 25 H Blood Pressure 112/83 115/88 Pulse Oximetry 100 100 Oxygen Delivery Method Room Air 01/19/24 21:30 01/19/24 22:30 01/19/24 23:00 Temperature Pulse Rate 100 H 102 H 104 H Respiratory Rate 18 18 Blood Pressure Pulse Oximetry 100 100 99 Oxygen Delivery Method 01/19/24 23:30 Temperature Pulse Rate 107 H Respiratory Rate 20 Blood Pressure 115/88 Pulse Oximetry 99 Oxygen Delivery Method Room Air MDM - Nausea/Vomiting/Diarrhea Lab Data Attestation: I reviewed the patient's lab results. Lab results narrative: White blood cell count 9800, hemoglobin 10.2, platelets [id number]. Glucose elevated to 94, with serum CO2 21, anion gap 14. BUN 22 with creatinine 1.35. Potassium 4.3 normal. Venous blood gas pH 7.6 noted from triage. 01/19/24 21:37 01/19/24 21:10 Labs: Lab Results 01/19/24 01/19/24 01/19/24 Range/Units 21:10 21:12 21:37 WBC 9.8 (4.5-11.0) X10^3/uL RBC 4.39 L (4.5-5.9) X10^6/uL Hgb 10.2 L (13.5-17.5) g/dL Hct 31.5 L (41-53) % MCV 71.7 L (80-100) fL MCH 23.2 L (26-34) PG MCHC 32.4 (30-36) % RDW 17.8 H (11.6-14.8) % Plt Count 442 H (150-400) X10^3/uL Neut % (Auto) 83.3 H (50-75) % Lymph % (Auto) 10.7 L (25-40) % [place] % (Auto) 5.4 (3-14) % Eos % (Auto) 0.0 L (2-4) % Baso % (Auto) 0.6 (0-2) % Neut # (Auto) 8200 H (7848-6501) /uL Lymph # (Auto) 1000 L (7013-2641) /uL [place] # (Auto) 500 (0-900) /uL Eos # (Auto) 0 (0-450) /uL Baso # (Auto) 100 (0-100) /uL VBG pH 7.61 H (7.33-7.43) VBG pCO2 21.3 L (45-50) mmHg VBG pO2 17 L (35-45) mmHg VBG HCO3 22 L (24-28) mmol/L VBG Total CO2 20 L (24-29) mmol/L VBG O2 Saturation 36 L (70-75) % VBG Base Excess 1.7 (0-4) mmol/L Sodium 132 L (137-145) mmol/L Potassium 4.3 (3.4-5.1) mmol/L Chloride 97 L (98-107) mmol/L Carbon Dioxide 21 L (22-32) mmol/L BUN 22 H (9-20) mg/dL Creatinine 1.35 H (0.66-1.25) mg/dL Estimated GFR > 60 (>60) mL/min BUN/Creatinine Ratio 16.3 (6-22) Glucose 294 H D (70-100) mg/dL Calcium 9.9 (8.4-10.2) mg/dL Total Bilirubin 1.0 (0.2-1.3) mg/dL AST 37 (17-59) IU/L ALT 35 (<50) IU/L Alkaline Phosphatase 112 (38-126) U/L Total Protein 8.2 (6.3-8.2) g/dL Albumin 4.5 (3.5-5.0) g/dL Globulin 3.7 (1.7-4.1) g/dL Albumin/Globulin Ratio 1.2 (1.0-2.8) Lipase 45 D (23-300) U/L Point of Care Testing Glucose POC 272 MDM Narrative Medical decision making narrative: 33-year-old male with history of diabetes, gastroparesis, recurrent nausea and vomiting since yesterday. Arrival by EMS with glucose 294. Venous blood gas not consistent with DKA. Anion gap 14 on BMP testing. IV fluids given, IV Zofran from EMS. We will add IV Reglan that he usually takes, as his evening dose. Symptoms improved, patient was able to take oral fluids. No emesis seen. Requesting pain medication, given oral dose Tylenol Patient called for a ride home. Advised to continue his current chronic medications, follow up with PCP early next week. Return precautions discussed Discharge Plan Departure Patient Disposition: Home Clinical Impression: Nausea & vomiting, History of diabetes mellitus, History of diabetic gastroparesis Activity Restrictions/Additional Instructions: History of diabetes, history of gastroparesis, vomiting today, last dose of Reglan earlier in the day. IV Reglan given. Labs were sent which looked reassuring, no evidence for diabetic ketoacidosis at this time. You were able to take oral fluids. Continue taking oral fluids. Continue taking your regular prescribed medications including for diabetes and non diabetes indications. Continue taking your Reglan medication. Follow up with your regular doctor in 2 days to review symptoms. Return to this/nearest emergency department for any change worsening symptoms or any concerns prior Prescriptions: No Action fluoxetine 10 mg capsule 10 mg PO DAILY Qty: 30 2RF hydroxyzine HCl 10 mg tablet 10 mg PO TID PRN (Reason: anxiety) Qty: 84 0RF (DME) [employer] G6 Transmitter Device See Rx Instructions .Route Qty: 1 3RF Rx Instructions: continuously monitor blood sugars metoclopramide HCl 5 mg tablet 5 mg PO DAILY Qty: 90 1RF metoprolol succinate 50 mg tablet extended release 24 hr 50 mg PO DAILY levothyroxine 50 mcg tablet 50 mcg PO DAILY Qty: 90 1RF sucralfate [Carafate] 1 gram tablet 1 g PO BID Qty: 60 1RF lorazepam 1 mg tablet 1 mg PO BID PRN (Reason: nausea and vomiting) Qty: 30 1RF diphenhydramine HCl 25 mg Tablet 25 mg PO BEDTIME PRN (Reason: Insomnia) (DME) Extended [place] 3 mL Misc MISCELLANEOUS Rx Instructions: patient uses insulin pump zolpidem [Ambien] 5 mg Tablet 5 mg PO BEDTIME PRN (Reason: Insomnia) gabapentin 300 mg Capsule 300 mg PO BID 90 Days Qty: 180 0RF (DME) True Metrix Glucose Test Strip Strip MISCELLANEOUS 4XD Humulin R Regular U-100 Insuln 100 unit/mL solution See Rx Instructions .ROUTE .COMPLEX Rx Instructions: 90 unit via continuous subcutaneous infusion (DME) lancets [TRUEplus Lancets] 30 gauge misc MISCELLANEOUS 4XD (DME) blood-glucose meter [True Metrix Glucose Meter] [facility] [place]ISCELLANEOUS pantoprazole 40 mg Tablet,Delayed Release (Dr/Ec) 40 mg PO 0700,2100 Qty: 60 0RF (DME) Dexcom G6 Sensor Device 1 ea MISCELLANEOUS Q10D (DME) Dexcom G6 Extruder Operator Misc MISCELLANEOUS Patient Comments: [NO ORIGINAL SIG] Referrals: James Jung DO [Primary Care Provider] - Stand Alone Forms: Patient Portal/API/Survey
[2024-01-19] MEDS: METOCLOPRAMIDE 10 MG/2 ML INJ IV (22:10)
[2024-01-19 22:30] VITALS: PULSE 102; O2SAT 100
[2024-01-19] MEDS: ACETAMINOPHEN 325 MG TABLET 650 MG PO (22:33)
[2024-01-19 23:00] VITALS: PULSE 104; RESP 18; O2SAT 99
--- NOTE | 2024-01-19 23:00 | PC.NURSE ---
Po fluids taken in to patient and informed that we'd be getting him up to ambulate in preparation to go home. Pt states I want to be admitted. I'm still in pain and I don't have a ride home. If you discharge me I'll be right back here tomorrow. Pt states I have no medications at home. They have all been cancelled. Dr. Griffin informed.
--- NOTE | 2024-01-19 23:19 | PC.NURSE ---
Per Dr. Griffin Patient is well hydrated and there is no reason to admit. He can have Tylenol 650mg q6hrs as needed for pain. Pt informed.
[2024-01-19 23:30] VITALS: BP 115/88; PULSE 107; RESP 20; O2SAT 99
== END 2024-01-19 23:59 | disposition home or self-care (01) ==
PROVIDERS: Emergency Provider Emergency Medicine; PCP Family Medicine
DX: R11.2 Nausea with vomiting, unspecified (principal); E10.65 Type 1 diabetes mellitus with hyperglycemia; Z87.19 Personal history of other diseases of the digestive system; Z96.41 Presence of insulin pump (external) (internal)
CPT/HCPCS: 36415; 80053; 82805; 82962; 83690; 85025; 96361; 96374; 96375; 99284; J2405; J2765

== ENCOUNTER 2024-01-25 15:13 | Emergency (ER) | payer OTHER, SELFPAY ==
[2024-01-13 20:30] VITALS: BMI 22.9
[2024-01-25] VITALS (9 sets, daily range): BP systolic 93–143; BP diastolic 50–98; PULSE 81–97; RESP 10–25; TEMP 37.2; O2SAT 92–100; BMI 22.2
--- NOTE | 2024-01-25 15:33 | PC.NURSE ---
Manual pressure taken at triage and is 80 systolic. Unable to auscultate diastolic. oil pit attendant Angelique made aware and patient promptly brought to room 4. Report given from this RN to SARAH Weldon.
--- NOTE | 2024-01-25 15:35 | EKG_ITS ---
[address] [address] Test Date: 2024-01-25 Pat Name: Valentin Noble Department: [facility] Room: Gender: Male Diploma Pharmacy Technician: CARI : 1990 Requested By: Order Number: [id number] Reading MD: Jagjit Phipps Measurements Intervals [place] Rate: 96 P: 33 TN: 136 QRS: -34 QRSD: 72 T: 38 QT: 362 QTc: 457 Interpretive Statements Normal sinus rhythm Left axis deviation Electronically Signed On 01-25-2024 19:43:53 PST by Jagjit Phipps
[2024-01-25 16:16] LABS: Add Manual Diff / Slide Review NO; Basophils Absolute Auto 100 /uL (0-100); Basophils Percent Auto 0.9 % (0-2); Eosinophils Absolute Auto 0 /uL (0-450); Eosinophils Percent Auto 0.3 % (2-4); Hemoglobin 10.2 g/dL (13.5-17.5); Lymphocytes Absolute Auto 1700 /uL (1100-4500); Lymphocytes Percent Auto 24.2 % (25-40); Mean Corpuscular Hemoglobin 23.2 PG (26-34); Mean Corpuscular Volume 72.6 fL (80-100); Monocytes Absolute Auto 600 /uL (0-900); Monocytes Percent Auto 9.1 % (3-14); Neutrophils Absolute Auto 4600 /uL (1500-7000); Neutrophils Percent Auto 65.5 % (50-75); Platelet Count 409 X10^3/uL (150-400); Red Blood Cell Count 4.41 X10^6/uL (4.5-5.9); White Blood Cell Count 7.1 X10^3/uL (4.5-11.0)
[2024-01-25 16:31] LABS: Alanine Aminotransferase 29 IU/L (<50); Albumin 4.4 g/dL (3.5-5.0); Albumin Globulin Ratio 1.3 (1.0-2.8); Alkaline Phosphatase 102 U/L (38-126); Aspartate Aminotransferase 30 IU/L (17-59); BUN Creatinine Ratio 14.3 (6-22); Bilirubin Total 0.6 mg/dL (0.2-1.3); Blood Urea Nitrogen 20 mg/dL (9-20); Calcium 9.9 mg/dL (8.4-10.2); Carbon Dioxide 23 mmol/L (22-32); Chloride 97 mmol/L (98-107); Creatine Kinase 55 U/L (55-170); Estimated Glomerular Filt Rate > 60 mL/min (>60); Globulin 3.4 g/dL (1.7-4.1); Glucose 202 mg/dL (70-100); HEMOLYSIS < 15 (0-50); Lipase 48 U/L (23-300); Potassium 3.7 mmol/L (3.4-5.1); Sodium 132 mmol/L (137-145); Total Protein 7.8 g/dL (6.3-8.2)
--- NOTE | 2024-01-25 16:32 | DI.RAD.S_ITS ---
PROCEDURE: XR CHEST 1V INDICATIONS: Cough TECHNIQUE: One view of the chest was acquired. COMPARISON: [facility], CR, XR CHEST 1V, 01/13/2024, 19:08. [facility], CR, XR CHEST 1V, 12/29/2023, 21:10. [facility], CR, XR CHEST 1V, 12/28/2023, 11:58. [facility], CR, XR CHEST 1V, 12/16/2023, 20:03. FINDINGS: Surgical changes and devices: None. Lungs and pleura: Lungs are clear. No pleural effusions or pneumothorax. Mediastinum: Mediastinal contours appear normal. Heart size is normal. Bones and chest wall: No suspicious bony lesions. Overlying soft tissues appear unremarkable. IMPRESSION: No acute cardiothoracic process. Dictated by: Atul Michelle M.D. on 01/25/2024 at 17:06 Approved by: Atul Michelle M.D. on 01/25/2024 at 17:07
--- NOTE | 2024-01-25 16:35 | ED_ITS ---
HPI - Nausea/Vomiting/Diarrhea General Chief complaint: Nausea/Vomiting/Diarrhea Stated complaint: From [facility]; Nausea, Vomiting Time Seen by Provider: 01/25/24 16:10 Source: patient Mode of arrival: Wheelchair History of Present Illness HPI Narrative: Patient is sent here from walk-in clinic complaints of abdominal pain nausea vomiting. Patient has history of diabetes gastroparesis. He states does not feel like he is in DKA. He states feels like gastroparesis. Seen here 6 days ago for the same. No fever chills no cough cold congestion. Patient states usually gets Dilaudid Reglan Compazine normal saline for his gastroparesis. Seen here many times for the same. Related Data Home Medications Medication Instructions Recorded Confirmed diphenhydramine HCl 25 mg tablet 25 mg PO BEDTIME PRN Insomnia 07/09/23 01/25/24 insulin pump syringe 3 mL 10/04/23 01/25/24 (Extended [employer]) metoprolol succinate 50 mg 50 mg PO DAILY 10/22/23 01/25/24 tablet,extended release 24 hr zolpidem 5 mg tablet (Ambien) 5 mg PO BEDTIME PRN Insomnia 11/05/23 01/25/24 blood sugar diagnostic (True 12/24/23 01/25/24 Metrix Glucose Test Strip) blood-glucose meter (True Metrix 12/24/23 01/25/24 Glucose Meter) insulin regular human 100 unit/mL See Rx Instructions .Route .COMPLEX 12/24/23 01/25/24 injection solution (Humulin R Regular U-100 Insulin) lancets 30 gauge (TRUEplus Lancets) 12/24/23 01/25/24 blood-glucose meter,continuous 01/14/24 01/25/24 (Dexcom G6 [employer]) blood-glucose sensor (Dexcom G6 01/14/24 01/25/24 Sensor device) Previous Rx's Medication Instructions Recorded levothyroxine 50 mcg tablet 50 mcg PO DAILY #90 tabs 10/22/23 hydroxyzine HCl 10 mg tablet 10 mg PO TID PRN anxiety #84 tabs 11/08/23 lorazepam 1 mg tablet 1 mg PO BID PRN nausea and 11/15/23 vomiting #30 tabs sucralfate 1 gram tablet (Carafate) 1 g PO BID #60 tabs 11/15/23 gabapentin 300 mg capsule 300 mg PO BID 90 days #180 caps 12/06/23 fluoxetine 10 mg capsule 10 mg PO DAILY #30 caps 12/21/23 blood-glucose transmitter (Dexcom #1 ea 01/18/24 G6 Transmitter device) metoclopramide HCl 5 mg tablet 5 mg PO DAILY #90 tabs 01/19/24 pantoprazole 40 mg tablet,delayed 40 mg PO BID #60 tabs 01/20/24 release oxycodone 5 mg tablet 5 mg PO Q4HR PRN Pain, Moderate 01/24/24 (4-6) 7 days #30 tabs Allergies Allergy/AdvReac Type Severity Reaction Status Date / Time aspirin [ASPIRIN] Allergy Unknown MAKES ME Verified 01/25/24 14:50 GO DEAF hydrocodone [HYDROCODONE] AdvReac Intermediate VOMITING Verified 01/25/24 14:50 ibuprofen [IBUPROFEN] AdvReac Intermediate HURTS Verified 01/25/24 14:50 KIDNEYS Review of Systems Review of Systems Narrative: GENERAL: Negative chills, fatigue, malaise, fever, sweats. HEENT: Negative sinus pain, ear pain, sore throat RESPIRATORY: Negative dyspnea, cough CARDIOVASCULAR: Negative chest pain, palpitations GASTROINTESTINAL: Positive nausea, vomiting, abdominal pain : Negative dysuria, frequency, hematuria MUSCULOSKELETAL: Negative muscle or bony pain SKIN: Negative rash, skin lesions NEUROLOGIC: Negative weakness, numbness ROS Unobtainable: All systems reviewed & are unremarkable except as noted in HPI and below Patient History Medical History Anxiety Migraines Headache Shoulder pain Osteoporosis Cataracts, bilateral Partial blindness GI bleeding Gastroparesis Gastric ulcer Chronic back pain MDD (major depressive disorder), recurrent episode, moderate Generalized anxiety disorder Compression fracture Chronic lower back pain HTN (hypertension) Hypothyroidism Marijuana use History of MRSA infection History of pneumonia Blurry vision, bilateral Diabetic neuropathy Bipolar disorder with depression Nausea and vomiting Diabetes type 1, uncontrolled Diabetic gastroparesis Surgical History No pertinent past surgical history Family History Mother No known health problems Father No known health problems Social History household members: family Smoking Status: Former smoker alcohol intake: current Smoking Status: Former smoker alcohol intake frequency: holidays/special occasions only Alcohol type: hard liquor Exam Narrative Exam Narrative: GENERAL: in no distress, not toxic not dyspneic HEAD: Normocephalic. EYES: Pupils equal round ENT: Mucous membranes moist. NECK: Trachea midline. CARDIOVASCULAR: Regular rate and rhythm RESPIRATORY: Clear to auscultation. Breath sounds equal bilaterally. No wheezes, rales, or rhonchi. GASTROINTESTINAL: Abdomen soft, mild diffuse tenderness no peritoneal signs bowel sounds are present. No rebound no guarding. No pain out of portion exam. EXTREMITIES: No gross deformities. BACK: No flank tenderness. NEURO: AOx4. SKIN: Warm and dry PSYCH: Not anxious, is cooperative Initial Vital Signs Initial Vital Signs: Vital Signs Temperature 98.9 F 01/25/24 15:18 Pulse Rate 94 H 01/25/24 15:18 Respiratory Rate 18 01/25/24 15:18 Pulse Oximetry 100 01/25/24 15:18 Oxygen Delivery Method Room Air 01/25/24 15:18 Course Orders Ordered: Discontinued Medications Hydromorphone HCl (Hydromorphone 1 Mg Inj) 1 mg IV NOW ONE Stop: 01/25/24 16:35 Last Admin: 01/25/24 17:08 Dose: 1 mg Documented By: Sodium Chloride (Normal Saline 0.9%) 1,000 mls @ 1,000 mls/hr IV BOLUS ONE Stop: 01/25/24 17:33 Last Infusion: 01/25/24 18:02 Dose: Infused Documented By: Admin: 01/25/24 16:56 Dose: 1,000 mls/hr Documented By: Sodium Chloride (Normal Saline 0.9%) 1,000 mls @ 1,000 mls/hr IV BOLUS ONE Stop: 01/25/24 18:48 Last Infusion: 01/25/24 19:18 Dose: Infused Documented By: Admin: 01/25/24 18:07 Dose: 1,000 mls/hr Documented By: Metoclopramide HCl (Metoclopramide 10 Mg/2 Ml Inj) 10 mg IV NOW ONE Stop: 01/25/24 16:35 Last Admin: 01/25/24 16:55 Dose: 10 mg Documented By: Ondansetron HCl (Ondansetron 4 Mg/2 Ml Inj) 4 mg IV NOW PRN PRN Reason: Nausea And Vomiting Ondansetron HCl (Ondansetron 4 Mg Odt) 4 mg PO NOW PRN PRN Reason: Nausea And Vomiting Prochlorperazine (Prochlorperazine 10 Mg/2 Ml Vial) 10 mg IV NOW ONE Stop: 01/25/24 16:35 Last Admin: 01/25/24 16:55 Dose: 10 mg Documented By: Vital Signs Vital signs: Vital Signs - 8 hr 01/25/24 15:18 01/25/24 16:55 Temperature 98.9 F Pulse Rate 94 H 86 Respiratory Rate 18 Blood Pressure 131/86 Pulse Oximetry 100 Oxygen Delivery Method Room Air MDM - Nausea/Vomiting/Diarrhea Lab Data 01/25/24 16:00 01/25/24 16:00 Labs: Lab Results 01/25/24 01/25/24 Range/Units 16:00 16:41 WBC 7.1 (4.5-11.0) X10^3/uL RBC 4.41 L (4.5-5.9) X10^6/uL Hgb 10.2 L (13.5-17.5) g/dL Hct 32.0 L (41-53) % MCV 72.6 L (80-100) fL MCH 23.2 L (26-34) PG MCHC 32.0 (30-36) % RDW 18.0 H (11.6-14.8) % Plt Count 409 H (150-400) X10^3/uL Neut % (Auto) 65.5 (50-75) % Lymph % (Auto) 24.2 L (25-40) % [place] % (Auto) 9.1 (3-14) % Eos % (Auto) 0.3 L (2-4) % Baso % (Auto) 0.9 (0-2) % Neut # (Auto) 4600 (8082-2531) /uL Lymph # (Auto) 1700 (5538-8050) /uL [place] # (Auto) 600 (0-900) /uL Eos # (Auto) 0 (0-450) /uL Baso # (Auto) 100 (0-100) /uL VBG pH 7.58 H (7.33-7.43) VBG pCO2 27.3 L (45-50) mmHg VBG pO2 24 L (35-45) mmHg VBG HCO3 25 (24-28) mmol/L VBG Total CO2 24 (24-29) mmol/L VBG O2 Saturation 55 L (70-75) % VBG Base Excess 3.9 (0-4) mmol/L Sodium 132 L (137-145) mmol/L Potassium 3.7 (3.4-5.1) mmol/L Chloride 97 L (98-107) mmol/L Carbon Dioxide 23 (22-32) mmol/L BUN 20 (9-20) mg/dL Creatinine 1.40 H (0.66-1.25) mg/dL Estimated GFR > 60 (>60) mL/min BUN/Creatinine Ratio 14.3 (6-22) Glucose 202 H (70-100) mg/dL Calcium 9.9 (8.4-10.2) mg/dL Total Bilirubin 0.6 (0.2-1.3) mg/dL AST 30 (17-59) IU/L ALT 29 (<50) IU/L Alkaline Phosphatase 102 (38-126) U/L Total Creatine Kinase 55 (55-170) U/L Troponin I < 0.012 (0.01-0.034) ng/mL Total Protein 7.8 (6.3-8.2) g/dL Albumin 4.4 (3.5-5.0) g/dL Globulin 3.4 (1.7-4.1) g/dL Albumin/Globulin Ratio 1.3 (1.0-2.8) Lipase 48 (23-300) U/L Ketones 0.42 H (<0.27) mmol/L Imaging Data Abdominal x-ray: Radiologist's Impression: [address] [address] XRay Report Signed Patient: Valentin Noble MR#: [id number] : 1990 Acct:[id number] Age/Sex: 33 / M Date of Service: 01/25/24 Loc: ED Accession Number: [id number] Procedure: XR abdomen 1V Ordering Provider: Nile Galvan MD PROCEDURE: XR ABDOMEN 1V INDICATIONS: Chest pain/abdominal pain TECHNIQUE: One view of the abdomen acquired. COMPARISON: None. FINDINGS: Please note that the image quality is suboptimal due to detector plate artifact. Surgical changes and devices: None. Bowel: Bowel gas pattern is normal. Soft tissues: No suspicious abdominal calcifications. Visualized solid organ contours appear normal in size. Bones: No suspicious bony lesions. IMPRESSION: No radiographic evidence of bowel obstruction. Dictated by: Atul Michelle M.D. on 01/25/2024 at 17:07 Approved by: Atul Michelle M.D. on 01/25/2024 at 17:08 Chest x-ray: Radiologist's Impression: [address] [id number] XRay Report Signed Patient: Valentin Noble MR#: [id number] : 1990 Acct:[id number] Age/Sex: 33 / M Date of Service: 01/25/24 Loc: ED Accession Number: [id number] Procedure: XR chest 1V Ordering Provider: Nile Galvan MD PROCEDURE: XR CHEST 1V INDICATIONS: Cough TECHNIQUE: One view of the chest was acquired. COMPARISON: [facility], CR, XR CHEST 1V, 01/13/2024, 19:08. [facility], CR, XR CHEST 1V, 12/29/2023, 21:10. [facility], CR, XR CHEST 1V, 12/28/2023, 11:58. [facility], CR, XR CHEST 1V, 12/16/2023, 20:03. FINDINGS: Surgical changes and devices: None. Lungs and pleura: Lungs are clear. No pleural effusions or pneumothorax. Mediastinum: Mediastinal contours appear normal. Heart size is normal. Bones and chest wall: No suspicious bony lesions. Overlying soft tissues appear unremarkable. IMPRESSION: No acute cardiothoracic process. Dictated by: Atul Michelle M.D. on 01/25/2024 at 17:06 Approved by: Atul Michelle M.D. on 01/25/2024 at 17:07 [facility] Narrative Medical decision making narrative: Patient is sent here from walk-in clinic complaints of abdominal pain nausea vomiting. Patient has history of diabetes gastroparesis. He states does not feel like he is in DKA. He states feels like gastroparesis. Seen here 6 days ago for the same. No fever chills no cough cold congestion. Patient states usually gets Dilaudid Reglan Compazine normal saline for his gastroparesis. Seen here many times for the same. After history and exam CBC CMP ketones VBG chest x-ray EKG abdominal x-ray Zofran normal saline Reglan Compazine Dilaudid [facility] Medical records reviewed: Visit here 6 days ago Differential considered: Includes but not limited to gastroparesis DKA dehydration bowel obstruction Lab Test results independently reviewed as above. Pertinent findings: WBC 7.1 hemoglobin 10.2 sodium 132 bicarb 23 BUN 20 creatinine 1.4 glucose 202 ketones 0.42 VBG 7.58 27.3 24 Independently reviewed EKG EKG sinus rhythm rate [address] elevation or depression Imaging studies independently reviewed: Chest x-ray no acute finding abdominal x-ray no acute finding Consultations: None indicated this time Treatments: Dilaudid Reglan Compazine normal saline Re-evaluations: 6:00 p.m.. Patient feeling much better. No pain no vomiting. Reviewed results with him. Repeat normal saline 1 L and he desires discharge home. Return precautions reviewed. He states he does have a GI doctor to follow up with gastroparesis. 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 Return precautions reviewed and he desires discharge home Discussion: Appropriate for discharge home exam is reassuring. Return precautions reviewed with patient. Nontoxic at discharge. Anion gap slightly elevated but 2 L normal saline given. Clinically patient feeling much better, clinically gastroparesis and he desires discharge home.. No CT imaging indicated this time. Exam and laboratory studies are reassuring. This is typical patient's gastroparesis episodes. Diagnosis: Gastroparesis Discharge Plan Departure Patient Disposition: Home Clinical Impression: Diabetic gastroparesis Instructions: DI for Gastroparesis Activity Restrictions/Additional Instructions: Your laboratory studies and imaging studies are reassuring. I am glad you are feeling better. Please see your GI doctor regarding gastroparesis within a week for re-evaluation. Keep well hydrated. Continue home medications. Return if worse if any questions or concerns. Prescriptions: No Action fluoxetine 10 mg capsule 10 mg PO DAILY Qty: 30 2RF hydroxyzine HCl 10 mg tablet 10 mg PO TID PRN (Reason: anxiety) Qty: 84 0RF (DME) Dexcom G6 Transmitter Device See Rx Instructions .Route Qty: 1 3RF Rx Instructions: continuously monitor blood sugars metoclopramide HCl 5 mg tablet 5 mg PO DAILY Qty: 90 1RF pantoprazole 40 mg tablet,delayed release (DR/EC) 40 mg PO BID Qty: 60 2RF oxycodone 5 mg tablet 5 mg PO Q4HR PRN (Reason: Pain, Moderate (4-6)) 7 Days Qty: 30 0RF metoprolol succinate 50 mg tablet extended release 24 hr 50 mg PO DAILY levothyroxine 50 mcg tablet 50 mcg PO DAILY Qty: 90 1RF sucralfate [Carafate] 1 gram tablet 1 g PO BID Qty: 60 1RF lorazepam 1 mg tablet 1 mg PO BID PRN (Reason: nausea and vomiting) Qty: 30 1RF diphenhydramine HCl 25 mg Tablet 25 mg PO BEDTIME PRN (Reason: Insomnia) (DME) Extended [employer] 3 mL Misc MISCELLANEOUS Rx Instructions: patient uses insulin pump zolpidem [Ambien] 5 mg Tablet 5 mg PO BEDTIME PRN (Reason: Insomnia) gabapentin 300 mg Capsule 300 mg PO BID 90 Days Qty: 180 0RF (DME) True Metrix Glucose Test Strip Strip MISCELLANEOUS 4XD Humulin R Regular U-100 Insuln 100 unit/mL solution See Rx Instructions .ROUTE .COMPLEX Rx Instructions: 90 unit via continuous subcutaneous infusion (DME) lancets [TRUEplus Lancets] 30 gauge misc MISCELLANEOUS 4XD (DME) blood-glucose meter [True Metrix Glucose Meter] Misc MISCELLANEOUS (DME) Dexcom G6 Sensor Device 1 ea MISCELLANEOUS Q10D (DME) Dexcom G6 [employer] Misc MISCELLANEOUS Patient Comments: [NO ORIGINAL SIG] Referrals: James Jung DO [Primary Care Provider] - Stand Alone Forms: Patient Portal/API/Survey
[2024-01-25 16:37] LABS: Ketones (Beta-Hydroxybutyrate) 0.42 mmol/L (<0.27)
[2024-01-25 16:44] LABS: Base Excess VBG 3.9 mmol/L (0-4); HCO3 VBG 25 mmol/L (24-28); Oxygen Saturation VBG 55 % (70-75); PCO2 VBG 27.3 mmHg (45-50); PO2 VBG 24 mmHg (35-45); Total CO2 VBG 24 mmol/L (24-29); pH VBG 7.58 (7.33-7.43)
[2024-01-25 16:45] LABS: Troponin I < 0.012 ng/mL (0.01-0.034)
[2024-01-25] MEDS: METOCLOPRAMIDE 10 MG/2 ML INJ IV (16:55)
[2024-01-25] MEDS: PROCHLORPERAZINE 10 MG/2 ML VIAL IV (16:55)
[2024-01-25] MEDS: SODIUM CHLORIDE 0.9% 1,000 ML 1000 ML IV ×2 (16:56→18:07)
[2024-01-25] MEDS: HYDROMORPHONE 1 MG INJ IV (17:08)
--- NOTE | 2024-01-25 18:10 | PC.NURSE ---
No emesis noted for the last 45 minutes. Pt laying back in gurney. Watching videos on phone. Appears in NAD.
--- NOTE | 2024-01-25 19:19 | PC.NURSE ---
BG trending down. Apple juice and turkey sandwich given. Pt ambulatory out of ER.
== END 2024-01-25 19:20 | disposition home or self-care (01) ==
PROVIDERS: Emergency Provider Emergency Medicine; PCP Family Medicine
DX: E11.43 Type 2 diabetes mellitus with diabetic autonomic (poly)neuropathy (principal); R10.9 Unspecified abdominal pain; R11.2 Nausea with vomiting, unspecified; R07.9 Chest pain, unspecified; R05.9 Cough, unspecified
CPT/HCPCS: 36415; 71045; 74018; 80053; 82009; 82550; 82805; 83690; 84484; 85025; 93005; 96361; 96374; 96375; 99284; J0780; J1171; J2765

== ENCOUNTER 2024-03-06 10:20 | Emergency (ER) | payer OTHER, SELFPAY ==
[2024-01-13 20:30] VITALS: BMI 22.9
[2024-03-06] VITALS (26 sets, daily range): BP systolic 87–180; BP diastolic 50–114; PULSE 99–122; RESP 16–41; TEMP 36.5–36.9; O2SAT 96–100; BMI 22.9
[2024-03-06 11:17] LABS: Base Excess VBG 1.1 mmol/L (0-4); HCO3 VBG 24 mmol/L (24-28); Oxygen Saturation VBG 93 % (70-75); PCO2 VBG 30.3 mmHg (45-50); PO2 VBG 59 mmHg (35-45); Total CO2 VBG 23 mmol/L (24-29)
[2024-03-06 12:03] LABS: Add Manual Diff / Slide Review NO; Basophils Absolute Auto 0 /uL (0-100); Basophils Percent Auto 0.3 % (0-2); Eosinophils Absolute Auto 0 /uL (0-450); Eosinophils Percent Auto 0.1 % (2-4); Hematocrit 30.5 % (41-53); Hemoglobin 9.5 g/dL (13.5-17.5); Lymphocytes Absolute Auto 700 /uL (1100-4500); Lymphocytes Percent Auto 7.3 % (25-40); Mean Corpuscular HGB Conc 31.1 % (30-36); Mean Corpuscular Hemoglobin 21.9 PG (26-34); Mean Corpuscular Volume 70.3 fL (80-100); Monocytes Absolute Auto 400 /uL (0-900); Monocytes Percent Auto 4.2 % (3-14); Neutrophils Absolute Auto 9000 /uL (1500-7000); Neutrophils Percent Auto 88.1 % (50-75); Platelet Count 382 X10^3/uL (150-400); Red Blood Cell Count 4.33 X10^6/uL (4.5-5.9); Red Cell Distribution Width 17.1 % (11.6-14.8); White Blood Cell Count 10.2 X10^3/uL (4.5-11.0)
[2024-03-06 12:03] LABS: Alanine Aminotransferase 23 IU/L (<50); Albumin 4.7 g/dL (3.5-5.0); Albumin Globulin Ratio 1.3 (1.0-2.8); Alkaline Phosphatase 106 U/L (38-126); Aspartate Aminotransferase 43 IU/L (17-59); BUN Creatinine Ratio 10.6 (6-22); Bilirubin Total 1.1 mg/dL (0.2-1.3); Blood Urea Nitrogen 17 mg/dL (9-20); Calcium 9.6 mg/dL (8.4-10.2); Carbon Dioxide 24 mmol/L (22-32); Chloride 98 mmol/L (98-107); Estimated Glomerular Filt Rate 58 mL/min (>60); Globulin 3.5 g/dL (1.7-4.1); Glucose 433 mg/dL (70-100); Lactate (Lactic Acid) 2.1 mmol/L (0.7-2.1); Potassium 4.3 mmol/L (3.4-5.1); Sodium 135 mmol/L (137-145); Total Protein 8.2 g/dL (6.3-8.2)
[2024-03-06] MEDS: ONDANSETRON 4 MG ODT SL (12:08)
[2024-03-06 12:15] LABS: HEMOLYSIS 69 (0-50); Ketones (Beta-Hydroxybutyrate) 2.41 mmol/L (<0.27)
--- NOTE | 2024-03-06 12:15 | PC.NURSE ---
Multiple attempts made to start IV access and get blood using US IV. IV therapy called. Pt continues to dry heave. No emesis. notified. New order received for 4mg Zofran ODT. Medicated with Zofran.
[2024-03-06] MEDS: SODIUM CHLORIDE 0.9% 1,000 ML 1000 ML IV (12:27)
--- NOTE | 2024-03-06 13:29 | PC.NURSE ---
Pt sitting up in [facility]. Continues to have emesis. Unable to take oral meds. MD notified.
[2024-03-06 13:30] LABS: Reflexed Lactate in 2 Hours Y
[2024-03-06] MEDS: METOCLOPRAMIDE 10 MG/2 ML INJ IV (13:37)
--- NOTE | 2024-03-06 13:41 | ED.ABDPAIN ---
HPI - Abdominal Pain General Chief Complaint: Abdominal Pain Stated Complaint: Can't keep anything down, back pain Time Seen by Provider: 03/06/24 10:40 Source: patient Mode of arrival: Ambulatory History of Present Illness HPI narrative: Patient is a 33-year-old male history of poorly-controlled diabetes gastroparesis frequent visits to the ED presenting today with inability to keep anything down. Complaining of abdominal pain nausea and vomiting. He reports that he did have an his insulin pump on but it was low battery so he took it off just prior to arrival. He was feeling fine yesterday. His last visit has not been since January 24 he is to come much more regularly. 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) blood-glucose sensor (Dexcom G6 01/14/24 02/29/24 Sensor device) Previous Rx's Medication Instructions Recorded levothyroxine 50 mcg tablet 50 mcg PO DAILY #90 tabs 10/22/23 lorazepam 1 mg tablet 1 mg PO BID PRN nausea and 11/15/23 vomiting #30 tabs sucralfate 1 gram tablet (Carafate) 1 g PO BID #60 tabs 11/15/23 blood-glucose transmitter (Dexcom #1 ea 01/18/24 G6 Transmitter device) metoclopramide HCl 5 mg tablet 5 mg PO DAILY #90 tabs 01/19/24 hydroxyzine HCl 10 mg tablet 10 mg PO TID PRN anxiety #84 tabs 01/31/24 insulin regular human 100 unit/mL See Rx Instructions .Route 02/04/24 injection solution (Humulin R .COMPLEX #10 mL Regular U-100 Insulin) doxepin 10 mg capsule 10 mg PO BEDTIME PRN insomnia #30 02/21/24 caps fluoxetine 10 mg capsule 20 mg (2 x 10 mg) PO DAILY #30 caps 02/21/24 omeprazole 40 mg capsule,delayed 40 mg PO DAILY #30 caps 02/28/24 release hydrocodone 5 mg-acetaminophen 325 1 tab PO TID PRN pain #90 tabs 02/29/24 mg tablet metoclopramide HCl 10 mg tablet 10 mg PO Q6H PRN nausea and 03/06/24 (Reglan) vomiting #20 tabs Allergies Allergy/AdvReac Type Severity Reaction Status Date / Time aspirin [ASPIRIN] Allergy Unknown MAKES ME Verified 02/29/24 13:07 GO DEAF hydrocodone [HYDROCODONE] AdvReac Intermediate VOMITING Verified 02/29/24 13:07 ibuprofen [IBUPROFEN] AdvReac Intermediate HURTS Verified 02/29/24 13:07 KIDNEYS Patient History Medical History Anxiety Migraines Headache Shoulder pain Osteoporosis Cataracts, bilateral Partial blindness GI bleeding Gastroparesis Gastric ulcer Chronic back pain MDD (major depressive disorder), recurrent episode, moderate Generalized anxiety disorder Compression fracture Chronic lower back pain HTN (hypertension) Hypothyroidism Marijuana use History of MRSA infection History of pneumonia Blurry vision, bilateral Diabetic neuropathy Bipolar disorder with depression Nausea and vomiting Diabetes type 1, uncontrolled Diabetic gastroparesis Surgical History No pertinent past surgical history Family History Mother No known health problems Father No known health problems Social History household members: family Smoking Status: Former smoker alcohol intake: current Smoking Status: Former smoker alcohol intake frequency: holidays/special occasions only Alcohol type: hard liquor Exam Initial Vital Signs Initial Vital Signs: Vital Signs Temperature 97.7 F 03/06/24 10:25 Pulse Rate 111 H 03/06/24 10:25 Respiratory Rate 16 03/06/24 10:25 Blood Pressure 137/92 H 03/06/24 10:25 Pulse Oximetry 100 03/06/24 10:25 Oxygen Delivery Method Room Air 03/06/24 10:25 GENERAL: Chronically ill disheveled 33-year-old male HEENT: Head atraumatic,EOMI, pupils reactive, face symmetric, dry mucous membranes CARDIOVASCULAR: Regular rate and rhythm without murmurs, rubs or gallops. RESPIRATORY: Breath sounds equal bilaterally, no wheezes rales or rhonchi. ABDOMEN: Soft, nontender. Normoactive bowel sounds all 4 quadrants. No guarding or rebound. EXTREMITIES: Normal range of motion, no clubbing or edema. Neurovascularly intact NEUROLOGICAL: Alert and oriented x4.Normal gait and speech. SKIN: Warm, dry, no laceration, no petechiae, no rashes or lesions. Course Orders Ordered: ED Orders 03/06/24 10:40 Venous Blood Gas STAT 03/06/24 11:10 CMP [Comprehensive Metabolic Panel] Stat Ketones (Beta-Hydroxybutyrate) Stat Lactate (Lactic Acid) Stat 03/06/24 11:13 Venous Blood Gas Routine 03/06/24 11:45 CBC Auto Diff [Complete Blood Count AUTO DIFF] Stat 03/06/24 14:35 EKG-12 Lead Stat 03/06/24 14:50 BMP [Basic Metabolic Panel] Stat Discontinued Medications Acetaminophen (Acetaminophen 325 Mg Tablet) 650 mg PO NOW ONE Stop: 03/06/24 13:10 Last Admin: 03/06/24 14:28 Dose: Not Given Documented By: Sodium Chloride (Normal Saline 0.9%) 1,000 mls @ 1,000 mls/hr IV BOLUS ONE Stop: 03/06/24 11:39 Last Infusion: 03/06/24 16:05 Dose: Infused Documented By: Admin: 03/06/24 12:27 Dose: 1,000 mls/hr Documented By: Insulin Human Regular (Insulin Regular 100 Unit/Ml 3 Ml Vial) 10 unit SUBCUT NOW ONE Stop: 03/06/24 14:32 Last Admin: 03/06/24 14:40 Dose: 10 unit Documented By: Co-signed By: CODY Insulin Human Regular (Insulin Regular 100 Unit/Ml 3 Ml Vial) 10 unit SUBCUT NOW ONE Stop: 03/06/24 15:46 Last Admin: 03/06/24 16:03 Dose: 10 unit Documented By: CM Co-signed By: DEMETRICE Metoclopramide HCl (Metoclopramide 10 Mg/2 Ml Inj) 10 mg IV NOW ONE Stop: 03/06/24 13:34 Last Admin: 03/06/24 13:37 Dose: 10 mg Documented By: Ondansetron HCl (Ondansetron 4 Mg Odt) 4 mg SL NOW ONE Stop: 03/06/24 12:06 Last Admin: 03/06/24 12:08 Dose: 4 mg Documented By: Pantoprazole Sodium (Pantoprazole 40 Mg Vial) 40 mg IV NOW ONE Stop: 03/06/24 15:46 Last Admin: 03/06/24 16:05 Dose: 40 mg Documented By: CM Prochlorperazine (Prochlorperazine 10 Mg/2 Ml Vial) 10 mg IV NOW ONE Stop: 03/06/24 16:14 Last Admin: 03/06/24 16:24 Dose: 10 mg Documented By: CM Vital Signs Vital signs: Vital Signs - 8 hr 03/06/24 11:00 03/06/24 11:30 03/06/24 12:00 Temperature Pulse Rate 104 H 99 H 104 H Respiratory Rate 18 18 23 Blood Pressure Pulse Oximetry 98 Oxygen Delivery Method 03/06/24 12:30 03/06/24 12:31 03/06/24 12:31 Temperature Pulse Rate 118 H 117 H Respiratory Rate 26 H 22 Blood Pressure 172/105 H Pulse Oximetry 100 99 Oxygen Delivery Method Room Air 03/06/24 12:32 03/06/24 12:32 03/06/24 13:25 Temperature Pulse Rate 116 H 118 H Respiratory Rate 18 Blood Pressure 163/106 H Pulse Oximetry 99 100 Oxygen Delivery Method 03/06/24 13:30 03/06/24 13:32 03/06/24 13:32 Temperature Pulse Rate 122 H 109 H Respiratory Rate 41 H 35 H Blood Pressure 140/85 Pulse Oximetry 100 100 Oxygen Delivery Method 03/06/24 14:00 03/06/24 14:00 03/06/24 14:30 Temperature Pulse Rate 100 H 102 H Respiratory Rate 24 24 Blood Pressure 103/60 145/89 H Pulse Oximetry 96 96 Oxygen Delivery Method Room Air 03/06/24 14:30 03/06/24 15:00 03/06/24 15:00 Temperature Pulse Rate 110 H 116 H Respiratory Rate Blood Pressure 180/114 H Pulse Oximetry 99 99 Oxygen Delivery Method 03/06/24 15:30 03/06/24 15:30 03/06/24 16:00 Temperature Pulse Rate 114 H 117 H Respiratory Rate Blood Pressure 154/103 H Pulse Oximetry 99 100 Oxygen Delivery Method 03/06/24 16:24 03/06/24 16:24 03/06/24 16:24 Temperature Pulse Rate 106 H 106 H Respiratory Rate Blood Pressure 113/72 113/72 Pulse Oximetry 98 Oxygen Delivery Method 03/06/24 16:30 03/06/24 16:32 03/06/24 16:32 Temperature Pulse Rate 102 H 107 H 102 H Respiratory Rate 18 Blood Pressure 105/62 Pulse Oximetry 96 97 99 Oxygen Delivery Method Room Air 03/06/24 17:00 03/06/24 17:02 03/06/24 17:05 Temperature Pulse Rate 100 H 105 H 101 H Respiratory Rate Blood Pressure Pulse Oximetry 97 97 97 Oxygen Delivery Method 03/06/24 17:05 03/06/24 17:13 03/06/24 17:13 Temperature Pulse Rate 105 H 110 H Respiratory Rate 18 Blood Pressure 128/83 128/83 Pulse Oximetry 98 98 Oxygen Delivery Method Room Air 03/06/24 17:30 03/06/24 17:30 03/06/24 17:44 Temperature 98.4 F Pulse Rate 100 H 102 H Respiratory Rate 16 Blood Pressure 87/50 L 122/78 Pulse Oximetry 97 97 Oxygen Delivery Method Room Air 03/06/24 17:50 Temperature Pulse Rate 104 H Respiratory Rate 22 Blood Pressure 123/78 Pulse Oximetry 97 Oxygen Delivery Method Room Air MDM - Abdominal Pain Lab Data 03/06/24 11:45 03/06/24 14:50 Labs: Lab Results 03/06/24 03/06/24 03/06/24 Range/Units 11:10 11:13 11:45 WBC 10.2 (4.5-11.0) X10^3/uL RBC 4.33 L (4.5-5.9) X10^6/uL Hgb 9.5 L (13.5-17.5) g/dL Hct 30.5 L (41-53) % MCV 70.3 L (80-100) fL MCH 21.9 L (26-34) PG MCHC 31.1 (30-36) % RDW 17.1 H (11.6-14.8) % Plt Count 382 (150-400) X10^3/uL Neut % (Auto) 88.1 H (50-75) % Lymph % (Auto) 7.3 L (25-40) % [place] % (Auto) 4.2 (3-14) % Eos % (Auto) 0.1 L (2-4) % Baso % (Auto) 0.3 (0-2) % Neut # (Auto) 9000 H (9923-4733) /uL Lymph # (Auto) 700 L (2124-3516) /uL [place] # (Auto) 400 (0-900) /uL Eos # (Auto) 0 (0-450) /uL Baso # (Auto) 0 (0-100) /uL VBG pH 7.50 H (7.33-7.43) VBG pCO2 30.3 L (45-50) mmHg VBG pO2 59 H (35-45) mmHg VBG HCO3 24 (24-28) mmol/L VBG Total CO2 23 L (24-29) mmol/L VBG O2 Saturation 93 H (70-75) % VBG Base Excess 1.1 (0-4) mmol/L Sodium 135 L (137-145) mmol/L Potassium 4.3 (3.4-5.1) mmol/L Chloride 98 (98-107) mmol/L Carbon Dioxide 24 (22-32) mmol/L BUN 17 (9-20) mg/dL Creatinine 1.61 H (0.66-1.25) mg/dL Estimated GFR 58 L (>60) mL/min BUN/Creatinine Ratio 10.6 (6-22) Glucose 433 H (70-100) mg/dL Lactate 2.1 (0.7-2.1) mmol/L Calcium 9.6 (8.4-10.2) mg/dL Total Bilirubin 1.1 (0.2-1.3) mg/dL AST 43 (17-59) IU/L ALT 23 (<50) IU/L Alkaline Phosphatase 106 (38-126) U/L Total Protein 8.2 (6.3-8.2) g/dL Albumin 4.7 (3.5-5.0) g/dL Globulin 3.5 (1.7-4.1) g/dL Albumin/Globulin Ratio 1.3 (1.0-2.8) Ketones 2.41 H (<0.27) mmol/L 03/06/24 03/06/24 Range/Units 14:02 14:50 WBC (4.5-11.0) X10^3/uL RBC (4.5-5.9) X10^6/uL Hgb (13.5-17.5) g/dL Hct (41-53) % MCV (80-100) fL MCH (26-34) PG MCHC (30-36) % RDW (11.6-14.8) % Plt Count (150-400) X10^3/uL Neut % (Auto) (50-75) % Lymph % (Auto) (25-40) % [place] % (Auto) (3-14) % Eos % (Auto) (2-4) % Baso % (Auto) (0-2) % Neut # (Auto) (7982-8828) /uL Lymph # (Auto) (8899-8186) /uL [place] # (Auto) (0-900) /uL Eos # (Auto) (0-450) /uL Baso # (Auto) (0-100) /uL VBG pH (7.33-7.43) VBG pCO2 (45-50) mmHg VBG pO2 (35-45) mmHg VBG HCO3 (24-28) mmol/L VBG Total CO2 (24-29) mmol/L VBG O2 Saturation (70-75) % VBG Base Excess (0-4) mmol/L Sodium 135 L (137-145) mmol/L Potassium 4.8 (3.4-5.1) mmol/L Chloride 100 (98-107) mmol/L Carbon Dioxide 20 L (22-32) mmol/L BUN 18 (9-20) mg/dL Creatinine 1.50 H (0.66-1.25) mg/dL Estimated GFR > 60 (>60) mL/min BUN/Creatinine Ratio 12.0 (6-22) Glucose 552 H* (70-100) mg/dL Lactate 1.7 (0.7-2.1) mmol/L Calcium 8.9 (8.4-10.2) mg/dL Total Bilirubin (0.2-1.3) mg/dL AST (17-59) IU/L ALT (<50) IU/L Alkaline Phosphatase (38-126) U/L Total Protein (6.3-8.2) g/dL Albumin (3.5-5.0) g/dL Globulin (1.7-4.1) g/dL Albumin/Globulin Ratio (1.0-2.8) Ketones (<0.27) mmol/L Point of care testing: Point of Care Testing Glucose POC 413 ECG Data Attestation: I personally reviewed and interpreted this ECG as follows: Prior ECG tracings: available for review Interpretation: Sinus rhythm rate 116 IN interval 160 QRS [address] changes MDM Narrative Medical decision making narrative: MDM CC: Abdominal pain Complicating co-morbidities: Poorly-controlled insulin-dependent diabetes frequent ED visits frequent admissions Medical records reviewed: Last ED visit 01/21/2024 with similar presentation, seen at primary care 02/29/2024 for ED follow-up Differential considered: DKA gastroparesis bowel obstruction Exam documented above, pertinent findings include: Chronically ill grossly disheveled Lab Test results independently reviewed as above. Pertinent findings: Venous pH 7.5 Initial glucose 433 anion gap 13, then glucose went to 552, finally POC checked and it was 413 Sodium is 135 potassium 4.3 chloride 98 bicarb 24 BUN 17 creatinine 1.6 Lactate 2.1 with repeat 1.7 Bilirubin liver enzymes within normal limits Independently reviewed EKG as above Sinus tachycardia no ischemia no ST changes Imaging studies independently reviewed: Treatments: Patient given 2 L IV fluids he has a very difficult IV start got Zofran Reglan Compazine Protonix Re-evaluations: Patient's glucose was read greater than 500 after 10 units of subcutaneous insulin and IV fluids it was rechecked Discussion: Patient 33-year-old male history of poorly-controlled diabetes presenting today with abdominal pain nausea vomiting. No evidence of DKA. He has no significant dehydration. He was given multiple anti nausea medication no narcotic pain medications given here. Why so glucose went up initially he was given a total of 20 units of subcutaneous insulin and 2 units of normal saline glucose is back down. Now he is tolerating oral fluids at this time can go home. He reports he does not have any anti nausea medication at home we will prescribe him some Reglan. He reports he can restart his public fluids he gets home Discharge Plan Departure Patient Disposition: Home Clinical Impression: Diabetic gastroparesis Instructions: Gastroparesis Activity Restrictions/Additional Instructions: *You have been diagnosed with gastroparesis *What to do: Please go home and reattached her insulin pump increase fluids *Continue to take medications as directed Reglan 10 mg every 6 hours if needed for nausea or vomiting *Follow up with your primary care provider in 2-3 days or call [phone] *Return to ER if you should have increasing abdominal pain nausea vomiting or any new, worsening or concerning symptoms Prescriptions: New metoclopramide HCl [Reglan] 10 mg tablet 10 mg PO Q6H PRN (Reason: nausea and vomiting) Qty: 20 0RF No Action fluoxetine 10 mg capsule 20 mg PO DAILY Qty: 30 2RF doxepin 10 mg capsule 10 mg PO BEDTIME PRN (Reason: insomnia) Qty: 30 2RF (DME) Dexcom G6 Transmitter Device See Rx Instructions .Route Qty: 1 3RF Rx Instructions: continuously monitor blood sugars metoclopramide HCl 5 mg tablet 5 mg PO DAILY Qty: 90 1RF hydroxyzine HCl 10 mg tablet 10 mg PO TID PRN (Reason: anxiety) Qty: 84 0RF Humulin R Regular U-100 Insuln 100 unit/mL solution See Rx Instructions .ROUTE .COMPLEX Qty: 10 3RF Rx Instructions: 40 units via insulin pump max daily dose 45 units omeprazole 40 mg capsule,delayed release(DR/EC) 40 mg PO DAILY Qty: 30 1RF Rx Instructions: for insurance coverage- instead of pantoprazole metoprolol succinate 50 mg tablet extended release 24 hr 50 mg PO DAILY levothyroxine 50 mcg tablet 50 mcg PO DAILY Qty: 90 1RF sucralfate [Carafate] 1 gram tablet 1 g PO BID Qty: 60 1RF lorazepam 1 mg tablet 1 mg PO BID PRN (Reason: nausea and vomiting) Qty: 30 1RF hydrocodone-acetaminophen 5-325 mg tablet 1 tab PO TID PRN (Reason: pain) Qty: 90 0RF (DME) Extended [place] 3 mL Misc MISCELLANEOUS Rx Instructions: patient uses insulin pump (DME) True Metrix Glucose Test Strip Strip MISCELLANEOUS 4XD (DME) lancets [TRUEplus Lancets] 30 gauge misc MISCELLANEOUS 4XD (DME) blood-glucose meter [True Metrix Glucose Meter] Misc MISCELLANEOUS (DME) Dexcom G6 Sensor Device 1 ea MISCELLANEOUS Q10D (DME) Dexcom G6 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
[2024-03-06 14:23] LABS: Lactate 2HR (Lactic Acid Rflx) 1.7 mmol/L (0.7-2.1)
[2024-03-06] MEDS: INSULIN REGULAR 100 UNIT/ML 3 ML VIAL 10 UNIT SUBCUT ×2 (14:40→16:03)
--- NOTE | 2024-03-06 14:42 | EKG_ITS ---
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
[2024-03-06 15:11] LABS: Blood Urea Nitrogen 18 mg/dL (9-20); Calcium 8.9 mg/dL (8.4-10.2); Carbon Dioxide 20 mmol/L (22-32); Chloride 100 mmol/L (98-107); Estimated Glomerular Filt Rate > 60 mL/min (>60); HEMOLYSIS < 15 (0-50); Potassium 4.8 mmol/L (3.4-5.1); Sodium 135 mmol/L (137-145)
[2024-03-06 15:13] LABS: Glucose 552 mg/dL (70-100)
--- NOTE | 2024-03-06 15:47 | PC.NURSE ---
PT repeat glucose >500. Dr Stearns notified.
[2024-03-06] MEDS: PANTOPRAZOLE 40 MG VIAL IV (16:05)
[2024-03-06] MEDS: PROCHLORPERAZINE 10 MG/2 ML VIAL IV (16:24)
--- NOTE | 2024-03-06 17:13 | PC.NURSE ---
Pt lying back in [facility]. Appears in NAD. Tolerating ice chips. BG 413. Dr Stearns notified.
== END 2024-03-06 17:52 | disposition home or self-care (01) ==
PROVIDERS: Emergency Provider Emergency Medicine; PCP Family Medicine
DX: E11.43 Type 2 diabetes mellitus with diabetic autonomic (poly)neuropathy (principal); K31.84 Gastroparesis; R11.2 Nausea with vomiting, unspecified; Z96.41 Presence of insulin pump (external) (internal); Z79.4 Long term (current) use of insulin
CPT/HCPCS: 36415; 80048; 80053; 82009; 82805; 82962; 83605; 85025; 93005; 96361; 96372; 96374; 96375; 99284; J0780; J2470; J2765

== ENCOUNTER → 2024-04-03 12:15 | Outpatient (CLI) | payer OTHER, SELFPAY ==
[2024-01-13 20:30] VITALS: BMI 22.9
== END ==
PROVIDERS: PCP Family Medicine; Visit Provider Nurse Practitioner Family
DX: S91.102A Unspecified open wound of left great toe without damage to nail, initial encounter (principal)
CPT/HCPCS: 87070; 87205

== ENCOUNTER → 2024-04-03 12:21 | Outpatient (CLI) | payer OTHER, SELFPAY ==
[2024-01-13 20:30] VITALS: BMI 22.9
--- NOTE | 2024-04-03 12:23 | DI.RAD.S_ITS ---
PROCEDURE: XR TOE LT MIN 2V INDICATIONS: Infected wound tip of great toe TECHNIQUE: 3 views of the 1st toe(s) acquired. COMPARISON: None. FINDINGS: Bones: Erosive changes involving 1st distal phalangeal tuft is seen with likely pathologic fracture involving 1st distal phalangeal tuft. 1st distal No suspicious bony lesions. Soft tissues: Marked soft tissue swelling surrounding distal portion of 1st toe is seen. No abnormal soft tissue calcifications. IMPRESSION: Soft tissue swelling surrounding distal great toe with suggestion of osteomyelitis involving 1st distal phalangeal tuft and likely minimally displaced pathologic fracture. Dictated by: Conrado Guillen M.D. on 04/03/2024 at 12:54 Approved by: Conrado Guillen M.D. on 04/03/2024 at 13:07
== END ==
LOC: RAD 12:22
PROVIDERS: PCP Family Medicine; Referring Provider Nurse Practitioner Family; Visit Provider Nurse Practitioner Family
DX: L08.9 Local infection of the skin and subcutaneous tissue, unspecified (principal); M79.89 Other specified soft tissue disorders
CPT/HCPCS: 73660

== ENCOUNTER 2024-04-03 13:56 | Emergency (ER) | payer OTHER, SELFPAY ==
[2024-01-13 20:30] VITALS: BMI 22.9
[2024-04-03 14:14] VITALS: BP 121/85; PULSE 92; RESP 16; TEMP 36.6; O2SAT 100; BMI 22.5
--- NOTE | 2024-04-03 18:17 | PC.NURSE ---
Pt left great toe is reddened and has necrotic tissue.
--- NOTE | 2024-04-03 18:41 | ED.WOUNDLAC ---
HPI - Wound/Laceration General Chief Complaint: Wound/Laceration Stated Complaint: L foot infection, sent by [facility] Time Seen by Provider: 04/03/24 18:41 Source: patient Mode of arrival: Wheelchair History of Present Illness HPI narrative: 34-year-old male history of type 1 diabetes, comes into the ED via walk-in clinic for evaluation of left great toe infection, was seen at walk-in clinic on x-ray x-ray showed probable osteomyelitis, he states that he has not sure of when the injury to his foot started but states he has been cleaning it with peroxide ever since he noticed it. States it has been for ?unknown amount of time but thinks it might have been maybe a week ago when he cut his toe but is not sure how. Does have baseline peripheral neuropathy therefore states he does not feel any pain to the feet. 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) blood-glucose sensor (Onfido G6 01/14/24 04/03/24 Sensor device) Previous Rx's Medication Instructions Recorded levothyroxine 50 mcg tablet 50 mcg PO DAILY #90 tabs 10/22/23 lorazepam 1 mg tablet 1 mg PO BID PRN nausea and 11/15/23 vomiting #30 tabs sucralfate 1 gram tablet (Carafate) 1 g PO BID #60 tabs 11/15/23 blood-glucose transmitter (Dexcom #1 ea 01/18/24 G6 Transmitter device) metoclopramide HCl 5 mg tablet 5 mg PO DAILY #90 tabs 01/19/24 hydroxyzine HCl 10 mg tablet 10 mg PO TID PRN anxiety #84 tabs 01/31/24 insulin regular human 100 unit/mL See Rx Instructions .Route 02/04/24 injection solution (Humulin R .COMPLEX #10 mL Regular U-100 Insulin) doxepin 10 mg capsule 10 mg PO BEDTIME PRN insomnia #30 02/21/24 caps omeprazole 40 mg capsule,delayed 40 mg PO DAILY #30 caps 02/28/24 release hydrocodone 5 mg-acetaminophen 325 1 tab PO TID PRN pain #90 tabs 02/29/24 mg tablet metoclopramide HCl 10 mg tablet 10 mg PO Q6H PRN nausea and 03/06/24 (Reglan) vomiting #20 tabs fluoxetine 40 mg capsule 40 mg PO QAM #30 caps 03/14/24 doxycycline hyclate 100 mg capsule 100 mg PO BID 10 days #20 caps 04/03/24 mupirocin 2 % topical ointment 1 applic topical TID #22 grams 04/03/24 ondansetron 4 mg disintegrating 4 mg PO TID PRN nausea and 04/03/24 tablet vomiting 5 days #15 tabs oxycodone-acetaminophen 5 mg-325 1 tab PO Q8H PRN pain 3 days #9 04/03/24 mg tablet (Percocet) tabs sulfamethoxazole 800 1 tab PO BID 7 days #14 tabs 04/03/24 mg-trimethoprim 160 mg tablet (Bactrim DS) Allergies Allergy/AdvReac Type Severity Reaction Status Date / Time aspirin [ASPIRIN] Allergy Unknown MAKES ME Verified 04/03/24 14:14 GO DEAF hydrocodone [HYDROCODONE] AdvReac Intermediate VOMITING Verified 04/03/24 14:14 ibuprofen [IBUPROFEN] AdvReac Intermediate HURTS Verified 04/03/24 14:14 KIDNEYS Review of Systems Review of Systems Narrative: General: Denies fever, chills, weight loss HEENT: Denies headache, eye drainage, eye irritation, head trauma, sore throat, voice change Cardiovascular: Denies any chest pain, palpitations, shortness of breath, tachycardia Respiratory: Denies any shortness of breath, cough, wheeze, stridor GI/: Denies any abdominal pain, nausea, vomiting, diarrhea, bright red blood per rectum, melanotic stools, urinary frequency, urinary retention, dysuria, hematuria MSK: Left great toe redness swelling pain, wound Skin: Denies any rashes, lesions, discoloration Neuro: Denies any headache, lightheadedness, dizziness, fainting, weakness Psych: Denies SI/HI Patient History Medical History Anxiety Migraines Headache Shoulder pain Osteoporosis Cataracts, bilateral Partial blindness GI bleeding Gastroparesis Gastric ulcer Chronic back pain MDD (major depressive disorder), recurrent episode, moderate Generalized anxiety disorder Compression fracture Chronic lower back pain HTN (hypertension) Hypothyroidism Marijuana use History of MRSA infection History of pneumonia Blurry vision, bilateral Diabetic neuropathy Bipolar disorder with depression Nausea and vomiting Diabetes type 1, uncontrolled Diabetic gastroparesis Surgical History No pertinent past surgical history Family History Mother No known health problems Father No known health problems Social History household members: family Smoking Status: Former smoker alcohol intake: current Smoking Status: Former smoker alcohol intake frequency: holidays/special occasions only Alcohol type: hard liquor Exam Narrative Exam Narrative: General: Cooperative, comfortable, well-developed, not in acute distress HEENT: Normocephalic, atraumatic, PERRLA, normal sclera, eyelids normal, Neck: Active full range of motion, atraumatic Chest: Normal to inspection, negative crepitus, no overlying erythema ecchymosis Respiratory: Normal respiratory effort, not in acute respiratory distress, clear to auscultation bilaterally negative cough, wheeze, tachypnea, rhonchi, rales Cardiology: Regular rate rhythm negative gallop, murmur, rubs GI/: Normal to inspection, soft, nonrigid, no tenderness to palpation, exam deferred MSK: Patient with baseline peripheral neuropathy to bilateral lower extremities therefore sensations chronically decreased however left great toe does appear erythematous swollen wound noted to the tip of the toe, otherwise neurovascularly intact no streaking noted Skin: No rashes lesions noted Neuro: Alert awake oriented x3, moves all 4 extremities spontaneously, cranial nerves intact, able to answer all questions appropriately follows commands appropriately Psych: Cooperative, negative suicidal or homicidal ideations Initial Vital Signs Initial Vital Signs: Vital Signs Temperature 97.8 F 04/03/24 14:14 Pulse Rate 92 H 04/03/24 14:14 Respiratory Rate 16 04/03/24 14:14 Blood Pressure 121/85 04/03/24 14:14 Pulse Oximetry 100 04/03/24 14:14 Oxygen Delivery Method Room Air 04/03/24 14:14 Course Orders Ordered: ED Orders 04/03/24 18:50 Blood Culture Stat CRP [C-Reactive Protein Quant] Stat Complete Blood Count AUTO DIFF Stat Comprehensive Metabolic Panel Stat Erythrocyte Sedimentation Rate Stat Lactate (Lactic Acid) Stat Lipase Stat PTT Partial Thromboplastin Bernard Stat Procalcitonin Stat Prothrombin Time INR Stat Ondansetron HCl (Ondansetron 4 Mg/2 Ml Inj) 4 mg IV NOW PRN PRN Reason: Nausea And Vomiting Ondansetron HCl (Ondansetron 4 Mg Odt) 4 mg SL NOW PRN PRN Reason: Nausea And Vomiting Discontinued Medications Sodium Chloride (Normal Saline 0.9%) 1,000 mls @ 1,000 mls/hr IV BOLUS ONE Stop: 04/03/24 15:39 Last Infusion: 04/03/24 20:25 Dose: Infused Documented By: Admin: 04/03/24 19:25 Dose: 1,000 mls/hr Documented By: Vancomycin HCl/Dextrose (Vancomycin) 2,000 mg in 400 mls @ 200 mls/hr IV NOW ONE Stop: 04/03/24 20:49 Last Infusion: 04/03/24 22:35 Dose: Infused Documented By: Admin: 04/03/24 20:05 Dose: 200 mls/hr Documented By: Cefepime HCl 2 gm/ Sodium (Chloride) 100 mls @ 200 mls/hr IV NOW ONE Stop: 04/03/24 18:50 Last Infusion: 04/03/24 20:06 Dose: Infused Documented By: Admin: 04/03/24 19:24 Dose: 200 mls/hr Documented By: Morphine Sulfate (Morphine 4 Mg/Ml Inj) 4 mg IV NOW ONE Stop: 04/03/24 18:50 Last Admin: 04/03/24 19:24 Dose: 4 mg Documented By: Morphine Sulfate (Morphine 4 Mg/Ml Inj) 4 mg IV NOW ONE Stop: 04/03/24 21:14 Last Admin: 04/03/24 21:34 Dose: 4 mg Documented By: SHADI Vital Signs Vital signs: Vital Signs - 8 hr 04/03/24 21:30 Pulse Rate 82 Respiratory Rate 20 Blood Pressure 159/91 H Pulse Oximetry 96 MDM - Wound/Laceration Differential Diagnosis Differential diagnosis: Likely laceration, abscess, abrasion and other (Osteomyelitis, diabetic foot ulcer) Lab Data 04/03/24 18:50 04/03/24 18:50 Labs: Lab Results 04/03/24 04/03/24 Range/Units 18:50 20:55 WBC 6.6 (4.5-11.0) X10^3/uL RBC 4.06 L (4.5-5.9) X10^6/uL Hgb 9.0 L (13.5-17.5) g/dL Hct 28.1 L (41-53) % MCV 69.1 L (80-100) fL MCH 22.1 L (26-34) PG MCHC 32.0 (30-36) % RDW 17.7 H (11.6-14.8) % Plt Count 341 (150-400) X10^3/uL Neut % (Auto) 63.0 (50-75) % Lymph % (Auto) 27.3 (25-40) % Otero % (Auto) 7.9 (3-14) % Eos % (Auto) 0.7 L (2-4) % Baso % (Auto) 1.1 (0-2) % Neut # (Auto) 4200 (1501-1646) /uL Lymph # (Auto) 1800 (9494-4065) /uL Otero # (Auto) 500 (0-900) /uL Eos # (Auto) 0 (0-450) /uL Baso # (Auto) 100 (0-100) /uL RBC Morphology See below Microcytosis 1+ H ESR 60 H (0-15) MM/HR PT 10.3 (9.4-12.5) SECONDS INR 0.9 (0.9-1.3) APTT 35 (25.1-36.5) SECONDS Sodium 133 L (137-145) mmol/L Potassium 4.5 (3.4-5.1) mmol/L Chloride 97 L (98-107) mmol/L Carbon Dioxide 26 (22-32) mmol/L BUN 26 H (9-20) mg/dL Creatinine 1.32 H (0.66-1.25) mg/dL Estimated GFR > 60 (>60) mL/min BUN/Creatinine Ratio 19.7 (6-22) Glucose 215 H (70-100) mg/dL Lactate 2.3 H 0.9 (0.7-2.1) mmol/L Calcium 9.6 (8.4-10.2) mg/dL Total Bilirubin 0.3 (0.2-1.3) mg/dL AST 27 (17-59) IU/L ALT 21 (<50) IU/L Alkaline Phosphatase 84 (38-126) U/L C-Reactive Protein 1.2 H (<1.0) mg/dL Total Protein 7.7 (6.3-8.2) g/dL Albumin 4.3 (3.5-5.0) g/dL Globulin 3.4 (1.7-4.1) g/dL Albumin/Globulin Ratio 1.3 (1.0-2.8) Lipase 41 (23-300) U/L Procalcitonin 0.066 (<0.5) ng/mL Imaging Data Extremity x-ray #1: Radiologist's Impression: [place] [address] XRay Report Signed Patient: Valentin Noble MR#: [id number] : 1990 Acct:[id number] Age/Sex: 34 / M Date of Service: 04/03/24 Loc: RAD Accession Number: [id number] Procedure: XR toe LT min 2V Ordering Provider: Carmita Gil PROCEDURE: XR TOE LT MIN 2V INDICATIONS: Infected wound tip of great toe TECHNIQUE: 3 views of the 1st toe(s) acquired. COMPARISON: None. FINDINGS: Bones: Erosive changes involving 1st distal phalangeal tuft is seen with likely pathologic fracture involving 1st distal phalangeal tuft. 1st distal No suspicious bony lesions. Soft tissues: Marked soft tissue swelling surrounding distal portion of 1st toe is seen. No abnormal soft tissue calcifications. IMPRESSION: Soft tissue swelling surrounding distal great toe with suggestion of osteomyelitis involving 1st distal phalangeal tuft and likely minimally displaced pathologic fracture. MDM Narrative Medical decision making narrative: 34-year-old male with poorly controlled type 1 diabetes presenting for toe ulceration wound previously went to walk-in clinic x-ray showed possible osteomyelitis therefore was sent here. He states mood may have occurred 2 weeks ago but is unsure due to his history peripheral neuropathy, he states that he really only noticed it around 1 week ago when it started looking red. He denies any other systemic symptoms such as headache visual disturbances chest pain shortness breath fever chills nausea vomiting abdominal pain or any other GI/ symptoms. No crepitus on exam. While patient here we will give prophylactic antibiotic for osteomyelitis. Patient afebrile no leukocytosis, patient's initial lactate elevated at 2.3 but repeat 0.9. Patient not meeting sepsis or sirs criteria, therefore patient will be sent home with oral antibiotics instructed to follow up with Orthopedic surgery/Podiatry as soon as possible as well as primary care doctor for treatment of his infection of his toe. He was offered admission to the hospital however he states that he would rather follow up outpatient strict return precautions given he verbalized understanding of this and agrees to being discharged home with outpatient follow up Discharge Plan Departure Patient Disposition: Home Clinical Impression: Diabetic foot ulcer Instructions: DI for Wound Infection Activity Restrictions/Additional Instructions: Please follow up with Orthopedic surgery/podiatry MISAEL, please return to the emergency department immediately if you start developing a fever or have worsening swelling pain to the extremity Please read the discharge instructions sheet carefully and bring all papers to all doctor follow-up visits, as it may contain information that your doctor may want to see. Disease processes change and evolve, if your symptoms worsen or if you develop any new symptoms that are concerning to you please return for evaluation. Your evaluation today does not show any evidence of any life-threatening/serious illnesses requiring admission to the hospital or surgery. Please follow-up with your doctor for re-evaluation in approximately 1 day. Seek immediate medical attention for any worrisome symptoms. *If you do not have a primary care provider please contact the [facility] Resource line at [phone]. They will ask some questions about your medical history and help get you set up with a doctor in the community. Prescriptions: New doxycycline hyclate 100 mg capsule 100 mg PO BID 10 Days Qty: 20 0RF ondansetron 4 mg tablet,disintegrating 4 mg PO TID PRN (Reason: nausea and vomiting) 5 Days Qty: 15 0RF oxycodone-acetaminophen [Percocet] 5-325 mg tablet 1 tab PO Q8H PRN (Reason: pain) 3 Days Qty: 9 0RF No Action mupirocin 2 % ointment 1 applic topical TID Qty: 22 0RF sulfamethoxazole-trimethoprim [Bactrim DS] 800-160 mg tablet 1 tab PO BID 7 Days Qty: 14 0RF doxepin 10 mg capsule 10 mg PO BEDTIME PRN (Reason: insomnia) Qty: 30 2RF fluoxetine 40 mg capsule 40 mg PO QAM Qty: 30 2RF (DME) Dexcom G6 Transmitter Device See Rx Instructions .Route Qty: 1 3RF Rx Instructions: continuously monitor blood sugars metoclopramide HCl 5 mg tablet 5 mg PO DAILY Qty: 90 1RF hydroxyzine HCl 10 mg tablet 10 mg PO TID PRN (Reason: anxiety) Qty: 84 0RF Humulin R Regular U-100 Insuln 100 unit/mL solution See Rx Instructions .ROUTE .COMPLEX Qty: 10 3RF Rx Instructions: 40 units via insulin pump max daily dose 45 units omeprazole 40 mg capsule,delayed release(DR/EC) 40 mg PO DAILY Qty: 30 1RF Rx Instructions: for insurance coverage- instead of pantoprazole metoprolol succinate 50 mg tablet extended release 24 hr 50 mg PO DAILY levothyroxine 50 mcg tablet 50 mcg PO DAILY Qty: 90 1RF sucralfate [Carafate] 1 gram tablet 1 g PO BID Qty: 60 1RF lorazepam 1 mg tablet 1 mg PO BID PRN (Reason: nausea and vomiting) Qty: 30 1RF hydrocodone-acetaminophen 5-325 mg tablet 1 tab PO TID PRN (Reason: pain) Qty: 90 0RF (DME) Extended [place] 3 mL Misc MISCELLANEOUS Rx Instructions: patient uses insulin pump (DME) True Metrix Glucose Test Strip Strip MISCELLANEOUS 4XD (DME) lancets [TRUEplus Lancets] 30 gauge misc MISCELLANEOUS 4XD (DME) blood-glucose meter [True Metrix Glucose Meter] Misc MISCELLANEOUS (DME) Dexcom G6 Sensor Device 1 ea MISCELLANEOUS Q10D (DME) Dexcom G6 Resource Conservation Specialist Misc MISCELLANEOUS Patient Comments: [NO ORIGINAL SIG] metoclopramide HCl [Reglan] 10 mg tablet 10 mg PO Q6H PRN (Reason: nausea and vomiting) Qty: 20 0RF Referrals: Mary Reno MD [Physician] - As soon as possible Jung,James T, DO [Primary Care Provider] - Stand Alone Forms: Patient Portal/API/Survey
[2024-04-03 19:19] LABS: Add Manual Diff / Slide Review NO; Basophils Absolute Auto 100 /uL (0-100); Basophils Percent Auto 1.1 % (0-2); Eosinophils Absolute Auto 0 /uL (0-450); Eosinophils Percent Auto 0.7 % (2-4); Hematocrit 28.1 % (41-53); Lymphocytes Absolute Auto 1800 /uL (1100-4500); Lymphocytes Percent Auto 27.3 % (25-40); Mean Corpuscular Hemoglobin 22.1 PG (26-34); Mean Corpuscular Volume 69.1 fL (80-100); Monocytes Absolute Auto 500 /uL (0-900); Monocytes Percent Auto 7.9 % (3-14); Neutrophils Absolute Auto 4200 /uL (1500-7000); Platelet Count 341 X10^3/uL (150-400); Red Blood Cell Count 4.06 X10^6/uL (4.5-5.9); Red Cell Distribution Width 17.7 % (11.6-14.8); White Blood Cell Count 6.6 X10^3/uL (4.5-11.0)
[2024-04-03] MEDS: MORPHINE 4 MG/ML INJ IV ×2 (19:24→21:34)
[2024-04-03] MEDS: CEFEPIME 2 GM in SODIUM CHLORIDE 0.9% 100 ML IV (19:24)
[2024-04-03] MEDS: SODIUM CHLORIDE 0.9% 1,000 ML 1000 ML IV (19:25)
[2024-04-03 19:28] LABS: INR 0.9 (0.9-1.3); Prothrombin Time 10.3 SECONDS (9.4-12.5)
[2024-04-03 19:29] LABS: Lactate (Lactic Acid) 2.3 mmol/L (0.7-2.1)
[2024-04-03 19:30] LABS: PTT Partial Thromboplastin Tim 35 SECONDS (25.1-36.5)
[2024-04-03 19:31] LABS: Alanine Aminotransferase 21 IU/L (<50); Albumin 4.3 g/dL (3.5-5.0); Albumin Globulin Ratio 1.3 (1.0-2.8); Alkaline Phosphatase 84 U/L (38-126); Aspartate Aminotransferase 27 IU/L (17-59); BUN Creatinine Ratio 19.7 (6-22); Bilirubin Total 0.3 mg/dL (0.2-1.3); Blood Urea Nitrogen 26 mg/dL (9-20); Calcium 9.6 mg/dL (8.4-10.2); Carbon Dioxide 26 mmol/L (22-32); Chloride 97 mmol/L (98-107); Estimated Glomerular Filt Rate > 60 mL/min (>60); Globulin 3.4 g/dL (1.7-4.1); Glucose 215 mg/dL (70-100); HEMOLYSIS < 15 (0-50); Lipase 41 U/L (23-300); Potassium 4.5 mmol/L (3.4-5.1); Sodium 133 mmol/L (137-145); Total Protein 7.7 g/dL (6.3-8.2)
[2024-04-03 19:34] LABS: Microcytosis 1+
[2024-04-03 19:48] LABS: Procalcitonin 0.066 ng/mL (<0.5)
[2024-04-03 19:53] LABS: C-Reactive Protein Quant 1.2 mg/dL (<1.0); Erythrocyte Sedimentation Rate 60 MM/HR (0-15)
[2024-04-03] MEDS: VANCOMYCIN 2,000 MG/400 ML PIGGYBACK 200 MG IV (20:05)
[2024-04-03 20:41] LABS: Reflexed Lactate in 2 Hours Y
[2024-04-03 21:13] LABS: Lactate 2HR (Lactic Acid Rflx) 0.9 mmol/L (0.7-2.1)
--- NOTE | 2024-04-03 21:22 | PC.NURSE ---
Pt reports that his BG is 70. Dr Dumont ok for PO intake. Mathews and juice brought to pt.
[2024-04-03 21:30] VITALS: BP 159/91; PULSE 82; RESP 20; O2SAT 96
[2024-04-03 22:00] VITALS: BP 113/62; PULSE 84; RESP 20; O2SAT 98
[2024-04-03 22:30] VITALS: BP 99/53; PULSE 97; RESP 20; O2SAT 98
[2024-04-03 23:00] VITALS: BP 112/59; PULSE 98; RESP 18; O2SAT 99
--- NOTE | 2024-04-04 18:09 | PC.NURSE ---
[facility] pharmacist called and reports the prescription that Dr. Blackwood wrote for Percocet would not be filled since patient just got a prescription for [place] (90 day )supply that was filled on 03/18/24. Dr. Tinsley aware wehn he came back in for his shift
== END 2024-04-03 23:31 | disposition home or self-care (01) ==
PROVIDERS: Emergency Medicine; Emergency Provider Student in an Organized Health Care Education/Training Program; PCP Family Medicine
DX: E10.621 Type 1 diabetes mellitus with foot ulcer (principal); L97.529 Non-pressure chronic ulcer of other part of left foot with unspecified severity; L08.9 Local infection of the skin and subcutaneous tissue, unspecified; M79.89 Other specified soft tissue disorders; S91.102A Unspecified open wound of left great toe without damage to nail, initial encounter
CPT/HCPCS: 36415; 73660; 80053; 83605; 83690; 84145; 85025; 85610; 85651; 85730; 86140; 87040; 87070; 87077; 87147; 87186; 87205; 96365; 96366; 96367; 96375; 96376; 99284; J0692; J2270

== ENCOUNTER 2024-04-05 09:46 | Day surgery (SDC) | payer OTHER, SELFPAY ==
[2024-01-13 20:30] VITALS: BMI 22.9
[2024-04-04 12:10] VITALS: BMI 21.7
[2024-04-05] VITALS (9 sets, daily range): BP systolic 114–156; BP diastolic 80–109; PULSE 88–98; RESP 11–16; TEMP 36.5–36.8; O2SAT 97–100; BMI 22.5
--- NOTE | 2024-04-05 | PATH_ITS ---
[facility] Accession Number: [id number] No. of containers..01 Tissue . 01 Material submitted: . toe - LEFT GREAST TOE . 01 Diagnosis: LEFT GREAT TOE: Fibroconnective tissue with necrotizing inflammation and inflamed granulation tissue, consistent with ulcer tissue. Bone fragments with features consistent with acute osteomyelitis. MRV 04/10/20248 Local . 01 Electronically signed: . Jewels Gutierres MD, Pathologist NPI- [id number] . 01 Gross description: . Received in formalin with two patient identifiers and left great toe tissue, are four quezada to yellow soft tissue fragments with no skin grossly identified ranging from 0.2 x 0.1 x 0.1 cm to 1.0 x 0.7 x 0.3 cm. The largest specimen is inked, sectioned, and submitted entirely in A1. The remaining fragments are submitted entirely in A2. (KB:[id number]) /MRV 04/06/20247 Local . 01 Pathologist provided ICD-10: E10.621, M86.9 . 01 CPT . 811690 Specimen Comment: A courtesy copy of this report has been sent to [phone] Performed at: [address] [facility] [address], [place], [place] [id number] MD Fly Carter MD Phone: [phone]
[2024-04-05] MEDS: LACTATED RINGERS 1,000 ML 42 ML IV (11:26)
--- NOTE | 2024-04-05 12:17 | PM.PREOP ---
Pre-operative Note Interval Note History & Physical reviewed/Exam performed by Physician: Yes Changes to H&P: No
[2024-04-05] MEDS: CEFAZOLIN 2 GM/100 ML PREMIX 100 ML IV (12:40)
--- NOTE | 2024-04-05 12:57 | SUR.OPER ---
Supine on padded OR bed, head on pillow, arms secured on padded arm boards at <90 degrees abduction, legs uncrossed, safety belt at thigh, tape over blanket over lower legs.
[2024-04-05] MEDS: OXYCODONE IR 5 MG TABLET PO ×2 (13:31→14:00)
--- NOTE | 2024-04-05 14:03 | P.OP_ITS ---
Operative Date/Time/Diagnoses Date of procedure: 04/05/24 Time of procedure: 12:30 Pre-op diagnosis: Osteomyelitis left great toe, diabetic, diabetic foot ulcer Post-op diagnosis: same Procedure & Clinicians Procedure: 1. Excision of ulcer with debridement of bone initial 20 sq cm or less CPT code 23534 Same procedure as scheduled: Yes Indications: The patient is a 34-year-old type 1 diabetic male that sustained a diabetic ulcer to the end of his left great toe sometime over the last few weeks. He does not recall any specific injury but states the toe is painful and he has become red. He does have neuropathy but has some sensation of pain in the great toe. He denies any fevers or chills. It was noted to have a full-thickness ulc eration of the tip of the great toe down to the distal phalanx bone and suspected to have osteomyelitis on radiographs. He was indicated for excisional debridement of the ulcer debridement of the bone and bone biopsy. The risks and benefits of the procedure were discussed including risks of need for additional procedures including amputation, persistence of infection or persistence of pain or need for prolonged wound care or antibiotics. Preoperatively patient was noted to have a palpable pulse. The risks and benefits of the procedure have been discussed with the patient and given the opportunity to ask questions. The risks of surgery include but are not limited to infection, malunion, nonunion, persistence of pain, damage to nerves and blood vessels, posttraumatic arthritis, DVT, PE, coardiopulmonary complications and . The patient expressed a thorough understanding of the risks and benefits of surgery and has elected to proceed. Consent was signed. Surgeon: Mary Reno Click Yes if Unassisted: Yes Anesthesia Type: Local Operative Notes Findings: Ulcer approximately 1 cm x 1 cm x 1.[address] to the level of the distal phalanx bone. This was excised sharply using a scalpel the ulcer core was excised then a curette was used to debride the bone and ulcer next a rongeur was used to remove a section of bone from the distal phalanx of the great toe to send for pathology and for culture. Once this was complete and demonstrated under fluoroscopy the wound was thoroughly irrigated with saline. Closure Type: primary Specimen(s): other (Bone was sent for culture and pathology) Estimated Blood Loss (mL): 5 Tourniquet time (min): 6 Procedure in detail: Patient was seen in the preoperative area the site of surgery was marked and informed consent confirmed this was the left great toe. The patient was then brought to the operating room by the anesthesia team positioned supine on operative table. An ankle tourniquet was applied. Bony prominences were well padded. A formal time-out procedure was performed confirming the patient's side and site of surgery and administration of appropriate preoperative antibiotic. All were in agreement. Attention turned to the left great toe. [employer] exsanguination was utilized tourniquet was raised on the ankle to250 mmHg. There was approximately a 1 x 1 cm x 1.5 cm deep ulceration of the left great toe this was sharply excised using a scalpel full-thickness from skin down to the level of the distal phalanx bone was removed. Next the bone and soft tissue were debrided using a curette and a rongeur. [place]ur was used to remove bone to be sent for pathology and culture. Once this was completed tourniquet was released. Good bleeding was noted. Final fluoroscopic image demonstrated the bone removal. The wound was thoroughly irrigated with saline. It was loosely closed with a few 3-0 nylon sutures to approximate and a dressing was placed with Xeroform Yakelin wrap and an Uday wrap. Drapes removed. A postoperative shoe was placed and the patient was taken to the postoperative unit in stable condition. There were no immediate complications noted. Complications: none Post-operative Condition: stable Disposition: PACU Plan for aftercare: Weightbear as tolerated in postoperative shoe. Keep dressing clean dry and intact but may change if needed. He has a few sutures in place where the incision was closed. Discussed this may possibly heal primarily but if not the sutures can be removed would recommend healing by secondary intention with the wound care center. Patient was indicated for a postoperative shoe to his left lower extremity for his diabetic foot ulcer and infection resulting in instability. Anticipated need 3 months.
--- NOTE | 2024-04-05 14:46 | SUR.PHASEII ---
Susan and patient had questions as to why oxocydone RX was not filled at [facility]. Called [facility], report that they need authorization from [place]. [employer] called and message left for Ronaldo QUINTERO
== END 2024-04-05 14:35 | disposition home or self-care (01) ==
PROVIDERS: PCP Family Medicine; Referring Provider Orthopaedic Surgery Foot and Ankle Surgery; Visit Provider Orthopaedic Surgery Foot and Ankle Surgery
PROC: (CPT 11044; principal; 2024-04-05 11:45)
DX: E10.621 Type 1 diabetes mellitus with foot ulcer (principal); E10.69 Type 1 diabetes mellitus with other specified complication; M86.9 Osteomyelitis, unspecified; Z79.4 Long term (current) use of insulin; Z87.891 Personal history of nicotine dependence
CPT/HCPCS: 11044; 82962; 87070; 87075; 87077; 87147; 87176; 87186; 87205; J0690; J1100; J1885; J2250; J2405; J2704; J3010

== ENCOUNTER → 2024-04-07 12:56 | Outpatient (CLI) | payer OTHER, SELFPAY ==
[2024-01-13 20:30] VITALS: BMI 22.9
--- NOTE | 2024-04-07 | OV.WND_ITS ---
PROGRESS NOTE DETAILS PATIENT NAME: JODIE MCCLOUD PATIENT NUMBER: [id number] CLINICIAN: YURI MALDONADO RN PATIENT DATE OF : 1990 PHYSICIAN / ETL DATA ARCHITECT: ARMANI SWAN PA-C PATIENT SUBJECTIVE CHIEF COMPLAINT THIS INFORMATION WAS OBTAINED FROM THE PATIENT. SORE ON MY BIG TOE. GENERAL NOTES CLIENT HAD ROSIBEL ON 04/05/24 ON LEFT HULLAX ALLERGIES ASPIRIN (REACTION: MAKES ME GO DEAF), HYDROCODONE (REACTION: VOMITING), IBUPROFEN (REACTION: HURTS KIDNEYS) HPI THIS INFORMATION WAS OBTAINED FROM THE PATIENT. THE FOLLOWING HPI ELEMENTS WERE DOCUMENTED FOR THE PATIENT'S WOUND: LOCATION: LEFT HULLUX CONTEXT: INFECTIOUS 34 YEAR OLD MALE WITH PMH OF DIABETES TYPE 1, NEUROPATHY, AND BLANE HERE FOR DIABETIC WOUND TO LEFT HALLUX. PATIENT WAS REFERRED BY [facility] ON 04/03/24. HE SUBSEQUENTLY PRESENTED TO THE ER AND WAS PLACED ON DOXYCYCLINE ON 04/03/24 AND TREATED WITH SURGICAL DEBRIDEMENT ON 04/05/24. HE WAS NOTED TO HAVE A FULL THICKNESS ULCERATION DOWN TO THE BONE WITH SUSPECTED OSTEOMYELITIS ON IMAGING. BIOPSY WAS DONE AND RESULTS ARE PENDING. HE IS CURRENTLY ON DOXYCYCLINE AND BACTRIM AND THERE IS PLAN IN [facility] TO ADJUST ANTIBIOTICS IF NEEDED BASED ON RESULT. HE DENIES ANY FEVER OR CHILLS. HE REPORTS TO THE WOUND CLINIC WITH SUTURES STILL IN PLACE. HE WILL BE FOLLOWING UP WITH [facility] IN TWO WEEKS FOR RECHECK. LABS: 04/07/24: FINESSE LEFT PAD, RIGHT PAD 04/05/24: CULTURE 04/05/24: PATHOLOGY ULCER TISSUE, BONE FRAGMENTS WITH FEATURES CONSISTENT WITH ACUTE OSTEOMYELITIS 04/03/24: WBC 6.6, HGB 9.0, HCT 28.1, MCV 69.1, ESR 60, NA 133, CR 1.32, GFR >60, GLUCOSE 215, LACTATE 0.9, AST 27, ALT 21, ALK PHOS 84, CRP 1.2, PROCALCITONIN 0.066 FAMILY HISTORY THIS INFORMATION WAS OBTAINED FROM THE CHART, PATIENT. NONE- MOTHER, FATHER SOCIAL HISTORY THIS INFORMATION WAS OBTAINED FROM THE CHART, PATIENT. FORMER SMOKER ALCOHOL USE: CURRENT JODIE MCCLOUD [id number] 1990 LIVES IN: HOME GENERAL NOTES DISABLED MEDICAL HISTORY THIS INFORMATION WAS OBTAINED FROM THE CHART, PATIENT. PATIENT HAS A MEDICAL HISTORY OF: ANXIETY MIGRAINES HEADACHE SHOULDER PAIN OSTEOPOROSIS CATARACTS, BILATERAL PARTIAL BLINDNESS GI BLEEDING GASTROPARESIS GASTRIC ULCER CHRONIC BACK PAIN MDD (MAJOR DEPRESSIVE DISORDER), RECURRENT EPISODE, MODERATE GENERALIZED ANXIETY DISORDER COMPRESSION FRACTURE CHRONIC LOWER BACK PAIN HTN HYPOTHYROIDISM MARIJUANA USE HISTORY OF MRSA INFECTION HISTORY OF PNEUMONIA BLURRY VISION, BILATERAL DIABETIC NEUROPATHY BIPOLAR DISORDER WITH DEPRESSION NAUSEA AND VOMITING DIABETES TYPE 1, UNCONTROLLED DIABETIC GASTROPARESIS SURGICAL HISTORY THIS INFORMATION WAS OBTAINED FROM THE PATIENT. PATIENT HAS A SURGICAL HISTORY OF: RIGHT HALLUX DEBRIDEMENT- 04/05/2024 REVIEW OF SYSTEMS (ROS) THIS INFORMATION WAS OBTAINED FROM THE PATIENT. GENERAL NOTES NOT UP TO DATE OBJECTIVE JODIE MCCLOUD [id number] 1990 VITALS HEIGHT/LENGTH: 70 IN (177.8 CM), WEIGHT: 154 LBS (70 KGS), BMI: 22.1, TEMPERATURE: 98.8 ?F (37.11 ?C), PULSE: 96 BPM, RESPIRATORY RATE: 16 BREATHS/MIN, BLOOD PRESSURE: 144/102 MMHG, CAPILLARY BLOOD GLUCOSE: 240 MG/DL, PULSE OXIMETRY: 96 %. PHYSICAL EXAM CONSTITUTIONAL: GENERALIZED WEAKNESS. IN NO APPARENT DISTRESS. GOOD ATTENTION TO HYGIENE AND BODY HABITS. ALERT AND ORIENTED X 3. WELL NOURISHED. VITAL SIGNS REVIEWED AND NOTED. HYPERTENSIVE. PULSE RATE AND RHYTHM REGULAR. AFEBRILE. WEIGHT WNL. WELL DEVELOPED, WELL NOURISHED, AND IN NO ACUTE DISTRESS. ALERT AND ORIENTED X3. AMBULATES AND IS ABLE TO CHANGE POSITION WITHOUT ASSISTANCE. ALERT AND ORIENTED X 3. RESPIRATORY: EVEN RESPIRATIONS WITHOUT USE OF ACCESSORY MUSCLES. NO INTERCOASTAL RETRACTIONS NOTED. EVEN AND NON LABORED RESPIRATION. CARDIOVASCULAR: SEE LOWER EXTREMITY ASSESSMENT WHEN APPLICABLE. THERE IS NO PERIPHERAL EDEMA, CYANOSIS OR PALLOR. EXTREMITIES ARE WARM AND WELL PERFUSED. CAPILLARY REFILL IS LESS THAN 2 SECONDS. INTEGUMENTARY (HAIR, SKIN): SEE WOUND DESCRIPTION. NEUROLOGICAL: DECREASED LOWER EXTREMITY SENSATION. PSYCHIATRIC: ORIENTATION TO TIME, PLACE AND PERSON: NORMAL AFFECT WITH NORMAL THOUGHT PATTERN. MOOD AND AFFECT: NORMAL AFFECT WITH NORMAL THOUGHT PATTERN. WOUND ASSESSMENT(S) WOUND #1 LEFT HALLUX IS A CHRONIC YAP GRADE 1 DIABETIC ULCER ACQUIRED ON 03/20/2024 AND HAS RECEIVED A STATUS OF NOT HEALED. INITIAL WOUND ENCOUNTER MEASUREMENTS ARE 0.1CM LENGTH X 0.1CM WIDTH X 0.1 CM DEPTH, WITH AN AREA OF 0.01 SQ CM AND A VOLUME OF 0.001 CUBIC CM. ADIPOSE IS EXPOSED. NO TUNNELING HAS BEEN NOTED. NO SINUS TRACT HAS BEEN NOTED. NO UNDERMINING HAS BEEN NOTED. THERE IS A SMALL AMOUNT OF SEROSANGUINEOUS DRAINAGE NOTED WHICH HAS NO ODOR. THE PATIENT REPORTS A WOUND PAIN OF LEVEL 4/10. THE WOUND MARGIN IS UNATTACHED WOUND BED HAS NO, GRANULATION, NO SLOUGH, NO ESCHAR, NO EPITHELIALIZATION. THE PERIWOUND SKIN TEXTURE IS NORMAL. THE PERIWOUND SKIN MOISTURE IS NORMAL. THE PERIWOUND SKIN COLOR IS NORMAL. THE TEMPERATURE OF THE PERIWOUND SKIN IS COOL. PERIWOUND SKIN DOES NOT EXHIBIT SIGNS OR SYMPTOMS OF INFECTION. LOCAL PULSE IS DOPPLER. GENERAL NOTES PATIENT HAS SUTURES IN PLACE, FOLLOW UP WITH DR. SHAH. ASSESSMENT ACTIVE PROBLEMS ICD-10 (ENCOUNTER DIAGNOSIS) E10.621 - TYPE 1 DIABETES MELLITUS WITH FOOT ULCER (ENCOUNTER DIAGNOSIS) L97.524 - NON-PRESSURE CHRONIC ULCER OF OTHER PART OF LEFT FOOT WITH NECROSIS OF BONE (ENCOUNTER DIAGNOSIS) M86.10 - OTHER ACUTE OSTEOMYELITIS, UNSPECIFIED SITE PLAN WOUND ORDERS: JODIE MCCLOUD [id number] 1990 WOUND #1 LEFT HALLUX DRESSING ORDERS APPLY DRESSING(S) AND SECURE WITH: - XEROFORM, GAUZE AND SECURE WITH TAPE. THEN TOE TUBULAR NETTING AND TETRA E LIKE A SOCK. DRESSING CHANGE FREQUENCY CHANGE DRESSING EVERY OTHER DAY. CHANGE DRESSING IF IT BECOMES SOILED OR WET. OFF-LOADING / PRESSURE RELIEF OTHER ORDER: - CONTINUE USING YOUR POST-OP SHOE FOLLOW-UP APPOINTMENTS RETURN APPOINTMENT 2 WEEKS SCRIBING ATTESTATION I ATTEST, THE NURSE, THAT I SCRIBED THESE ORDERS FOR THE WOUND CARE PROVIDER. ANCILLARY SERVICES: CARDIOVASCULAR: ARTERIAL ULTRASOUND - LEFT LEG. GENERAL NOTES 1. SCHEDULE AN ARTERIAL ULTRASOUND. 2. CONTINUE DRESSING CHANGES, EVERY DAY. 3. FINISH YOUR ANTIBIOTICS 4. HAVE YOUR FOLLOW UP APPOINTMENT WITH DR. SHAH. CONTINUE WITH XEROFORM TO WOUND BED COVERED WITH GAUZE UNTIL FOLLOW UP WITH [facility]THO FOR SUTURE REMOVAL CONTINUE ANTIBIOTICS RX'D BY [facility]TH[facility] RECHECK HERE 2 WEEKS MONITOR FOR INFECTION ELECTRONIC SIGNATURE(S) SIGNED BY: DATE: ARMANI WSAN PA-C 04/11/2024 13:03:30 (PT) ENTERED BY: ARMANI SWAN PA-C ON 04/11/2024 13:03:23 (PT) JODIE MCCLOUD [id number] 1990
== END ==
LOC: WC 12:58
PROVIDERS: Family Provider Nurse Practitioner Family; PCP Family Medicine; Referring Provider Family Medicine; Visit Provider Surgery
DX: E10.621 Type 1 diabetes mellitus with foot ulcer (principal); L97.522 Non-pressure chronic ulcer of other part of left foot with fat layer exposed; M86.10 Other acute osteomyelitis, unspecified site
CPT/HCPCS: 99204; 99214

== ENCOUNTER → 2024-04-21 13:12 | Outpatient (CLI) | payer OTHER, SELFPAY ==
[2024-01-13 20:30] VITALS: BMI 22.9
== END ==
PROVIDERS: Family Provider Nurse Practitioner Family; PCP Family Medicine; Referring Provider Nurse Practitioner Family; Visit Provider Physician Assistant
DX: Z86.31 Personal history of diabetic foot ulcer (principal)
CPT/HCPCS: 99212; 99213

== ENCOUNTER → 2024-04-28 09:54 | Outpatient (CLI) | payer OTHER, SELFPAY ==
[2024-01-13 20:30] VITALS: BMI 22.9
--- NOTE | 2024-04-28 09:55 | DI.RAD.S_ITS ---
PROCEDURE: FL UPPER GI SMALL BOWEL INDICATIONS: eval diabetic gastroparesis COMPARISON: None. FINDINGS: KUB: Preprocedural general dentist film shows a normal bowel gas pattern. No suspicious abdominal calcifications. Visualized solid organ contours appear normal in size. No suspicious bony abnormalities. Esophagus: On single-contrast views, there is normal peristalsis. No fixed strictures, extrinsic mass effects, or diverticula. No hiatal hernias or elicited gastroesophageal reflux. There is normal transit of a calibrated barium tablet through the esophagus. Stomach: The gastric lumen is normally distensible, and has normal rugal fold thickness. No mucosal masses or ulcers. The pylorus and duodenal bulb have a normal morphology. Small bowel: Duodenal folds appear normal in thickness. There is fast transit time of barium through the small intestine. Small bowel loops appear normal in caliber throughout. Jejunal and ileal folds are smooth and normal in thickness. No strictures, intraluminal masses, or extrinsic mass effects. The terminal ileum is identified and appears normal. IMPRESSION: Increased and the time throughout the small intestine, which could be physiologic or indicate rapid gastric clearing. Dictated by: Edgar Rodriguez M.D. on 04/28/2024 at 12:29 Approved by: Edgar Rodriguez M.D. on 04/28/2024 at 12:30
== END ==
PROVIDERS: Family Provider Nurse Practitioner Family; PCP Family Medicine; Referring Provider Family Medicine; Visit Provider Family Medicine
DX: E11.43 Type 2 diabetes mellitus with diabetic autonomic (poly)neuropathy (principal); K31.84 Gastroparesis
CPT/HCPCS: 74240; 74248

== ENCOUNTER → 2024-05-01 15:26 | Outpatient (CLI) | payer OTHER, SELFPAY ==
[2024-01-13 20:30] VITALS: BMI 22.9
--- NOTE | 2024-05-01 | OV.WND_ITS ---
PROGRESS NOTE DETAILS PATIENT NAME: JODIE MCCLOUD PATIENT NUMBER: [id number] CLINICIAN: DUNCAN GARCIA R.N. PATIENT DATE OF : 1990 PHYSICIAN / NEUROSURGERY SPINE PHYSICIAN: LORI MYERS PATIENT SUBJECTIVE CHIEF COMPLAINT THIS INFORMATION WAS OBTAINED FROM THE PATIENT. HEALED. GENERAL NOTES SURVEILLANCE VISIT FOR SURGICAL WOUND ON LEFT HALLUX. ALLERGIES ASPIRIN (REACTION: MAKES ME GO DEAF), HYDROCODONE (REACTION: VOMITING), IBUPROFEN (REACTION: HURTS KIDNEYS) HPI THIS INFORMATION WAS OBTAINED FROM THE PATIENT. THE FOLLOWING HPI ELEMENTS WERE DOCUMENTED FOR THE PATIENT'S WOUND: LOCATION: LEFT HULLUX DURATION: 03/20/24 CONTEXT: INFECTIOUS/DFU THE PATIENT IS A 34 YEAR OLD MALE WITH PMH OF DIABETES TYPE 1, NEUROPATHY, AND BLANE HERE FOR SURVEILLANCE OF DIABETIC ULCER OF THE LEFT HALLUX. PATIENT WAS REFERRED BY [facility] ON 04/03/24. HE SUBSEQUENTLY PRESENTED TO THE ER AND WAS PLACED ON DOXYCYCLINE ON 04/03/24 AND UNDERWENT SURGICAL DEBRIDEMENT ON 04/05/24. HE WAS NOTED TO HAVE A FULL THICKNESS ULCERATION DOWN TO THE BONE WITH SUSPECTED OSTEOMYELITIS ON IMAGING AND CONFIRMED BY PATHOLOGY. HE HAS RECENTLY FINISHED DOXYCYCLINE AND BACTRIM. THE ULCER WAS NOTED TO BE HEALED AT HIS LAST VISIT ON APRIL 21, 2024. HE DENIES ANY FEVER OR CHILLS. THE PATIENT REPORTS SOME OCCASIONAL PAIN BUT HAS NOT NOTED ANY ERYTHEMA, SWELLING, OR DRAINAGE. LABS: 04/07/24: FINESSE LEFT PAD, RIGHT PAD. ARTERIAL US PENDING 04/05/24: CULTURE STAPH AUREUS LIGHT 04/05/24: PATHOLOGY ULCER TISSUE, BONE FRAGMENTS WITH FEATURES CONSISTENT WITH ACUTE OSTEOMYELITIS 04/03/24: WBC 6.6, HGB 9.0, HCT 28.1, MCV 69.1, ESR 60, NA 133, CR 1.32, GFR >60, GLUCOSE 215, LACTATE 0.9, AST 27, ALT 21, ALK PHOS 84, CRP 1.2, PROCALCITONIN 0.066 OBJECTIVE VITALS HEIGHT/LENGTH: 70 IN (177.8 CM), WEIGHT: 154 LBS (70 KGS), BMI: 22.1, TEMPERATURE: 98.1 ?F (36.72 ?C), PULSE: 94 BPM, RESPIRATORY RATE: 16 BREATHS/MIN, BLOOD PRESSURE: 118/87 MMHG, PULSE OXIMETRY: 99 %. JODIE MCCLODU [id number] 1990 PHYSICAL EXAM CONSTITUTIONAL: VITAL SIGNS REVIEWED AND NOTED. WELL DEVELOPED, WELL NOURISHED, AND IN NO ACUTE DISTRESS. ALERT AND ORIENTED X3. RESPIRATORY: EVEN RESPIRATIONS WITHOUT USE OF ACCESSORY MUSCLES. NO INTERCOASTAL RETRACTIONS NOTED. EVEN AND NON LABORED RESPIRATION. INTEGUMENTARY (HAIR, SKIN): NO ERYTHEMA. NO SWELLING OR TENDERNESS. SEE WOUND ASSESSMENT. SKIN WARM AND DRY. NO RASHES. NEUROLOGICAL: DECREASED LOWER EXTREMITY SENSATION. PSYCHIATRIC: ORIENTATION TO TIME, PLACE AND PERSON: NORMAL AFFECT WITH NORMAL THOUGHT PATTERN. ASSESSMENT ACTIVE PROBLEMS ICD-10 (ENCOUNTER DIAGNOSIS) E10.621 - TYPE 1 DIABETES MELLITUS WITH FOOT ULCER (ENCOUNTER DIAGNOSIS) L97.524 - NON-PRESSURE CHRONIC ULCER OF OTHER PART OF LEFT FOOT WITH NECROSIS OF BONE (ENCOUNTER DIAGNOSIS) M86.10 - OTHER ACUTE OSTEOMYELITIS, UNSPECIFIED SITE GENERAL NOTES ULCER LEFT HALLUX ASSOCIATED WITH OSTEOMYELITIS, HEALED. THE PATIENT ADVISED TO DO DAILY SKIN INSPECTIONS, USE DIABETIC FOOTWEAR, FOLLOW UP AT WOUND CENTER NEEDED. PLAN ADDITIONAL ORDERS: FOLLOW-UP APPOINTMENTS DISCHARGE FROM OUTPATIENT SERVICES. OTHER ORDERS: - INSPECT FEET DAILY FOR CONCERNS OF OPENING, DRAINAGE OR TRAUMA. CALL US WITH ANY QUESTIONS OR CONCERNS. SCRIBING ATTESTATION I ATTEST, THE NURSE, THAT I SCRIBED THESE ORDERS FOR THE WOUND CARE PROVIDER. PROVIDER REVIEW AND ATTESTATION: REVIEWED AND EVALUATED LABS. REVIEWED HOSPITAL RECORDS. DISCUSSED THE PLAN OF CARE @ BEDSIDE WITH - THE PATIENT I AGREE AND ATTEST TO THE ABOVE INFORMATION PROVIDED FROM OTHER LICENSED PROFESSIONALS. ELECTRONIC SIGNATURE(S) SIGNED BY: DATE: LORI MYERS MD 05/01/2024 15:58:23 (PT) ENTERED BY: LORI MYERS MD ON 05/01/2024 13:06:54 (PT) JODIE MCCLOUD [id number] 1990
== END ==
PROVIDERS: Family Provider Nurse Practitioner Family; PCP Family Medicine; Referring Provider Family Medicine; Visit Provider Surgery
DX: E10.621 Type 1 diabetes mellitus with foot ulcer (principal); L97.524 Non-pressure chronic ulcer of other part of left foot with necrosis of bone; M86.10 Other acute osteomyelitis, unspecified site; E10.40 Type 1 diabetes mellitus with diabetic neuropathy, unspecified
CPT/HCPCS: 99211; 99213

== ENCOUNTER → 2024-06-21 10:18 | Outpatient (CLI) | payer OTHER, SELFPAY ==
[2024-01-13 20:30] VITALS: BMI 22.9
[2024-06-21 11:43] LABS: Add Manual Diff / Slide Review NO; Basophils Absolute Auto 100 /uL (0-100); Basophils Percent Auto 1.1 % (0-2); Eosinophils Absolute Auto 100 /uL (0-450); Eosinophils Percent Auto 1.2 % (2-4); Hematocrit 31.6 % (41-53); Lymphocytes Absolute Auto 1900 /uL (1100-4500); Lymphocytes Percent Auto 32.6 % (25-40); Mean Corpuscular HGB Conc 31.5 % (30-36); Mean Corpuscular Volume 66.8 fL (80-100); Monocytes Absolute Auto 400 /uL (0-900); Monocytes Percent Auto 7.5 % (3-14); Neutrophils Absolute Auto 3300 /uL (1500-7000); Neutrophils Percent Auto 57.6 % (50-75); Platelet Count 357 X10^3/uL (150-400); Red Blood Cell Count 4.73 X10^6/uL (4.5-5.9); Red Cell Distribution Width 17.4 % (11.6-14.8); White Blood Cell Count 5.7 X10^3/uL (4.5-11.0)
[2024-06-21 11:50] LABS: Hemoglobin A1C% w Est Avg Glu 9.3 % (4.0-6.0); Reticulocyte Count, Percent 1.3 % (0.9-2.6)
[2024-06-21 11:54] LABS: Anisocytosis 1+
[2024-06-21 11:56] LABS: Alanine Aminotransferase 23 IU/L (<50); Albumin Globulin Ratio 1.4 (1.0-2.8); Alkaline Phosphatase 101 U/L (38-126); Aspartate Aminotransferase 29 IU/L (17-59); BUN Creatinine Ratio 20.4 (6-22); Bilirubin Total 0.5 mg/dL (0.2-1.3); Blood Urea Nitrogen 23 mg/dL (9-20); Calcium 9.6 mg/dL (8.4-10.2); Carbon Dioxide 24 mmol/L (22-32); Chloride 99 mmol/L (98-107); Estimated Glomerular Filt Rate > 60 mL/min (>60); Globulin 3.7 g/dL (1.7-4.1); Glucose 350 mg/dL (70-99); HEMOLYSIS 15 (0-50); HEMOLYSIS < 15 (0-50); Iron 28 ug/dL (49-181); Potassium 4.2 mmol/L (3.4-5.1); Sodium 138 mmol/L (137-145); Total Protein 8.7 g/dL (6.3-8.2)
[2024-06-21 12:08] LABS: Percent Iron Saturation 6 % (20-50); Total Iron Binding Capacity 468 ug/dL (261-462); Transferrin 432 mg/dL (206-381)
[2024-06-21 12:28] LABS: TSH w/ Reflex to FT4 8.65 uIU/mL (0.47-4.68)
[2024-06-21 12:47] LABS: Vitamin B12 554 pg/mL (239-931)
== END ==
PROVIDERS: Family Provider Nurse Practitioner Family; PCP Family Medicine; Referring Provider Family Medicine; Visit Provider Family Medicine
DX: N17.9 Acute kidney failure, unspecified (principal); E11.10 Type 2 diabetes mellitus with ketoacidosis without coma; E87.6 Hypokalemia; E03.9 Hypothyroidism, unspecified; D64.9 Anemia, unspecified; I10 Essential (primary) hypertension
CPT/HCPCS: 36415; 80053; 82607; 83036; 83540; 83550; 84439; 84443; 85025; 85045

== ENCOUNTER → 2024-08-14 17:10 | Outpatient (CLI) | payer OTHER, SELFPAY ==
[2024-01-13 20:30] VITALS: BMI 22.9
[2024-08-14 18:02] LABS: Hemoglobin A1C% w Est Avg Glu 7.7 % (4.0-6.0)
[2024-08-14 18:06] LABS: Alanine Aminotransferase 18 IU/L (<50); Albumin 4.8 g/dL (3.5-5.0); Albumin Globulin Ratio 1.5 (1.0-2.8); Alkaline Phosphatase 84 U/L (38-126); Blood Urea Nitrogen 19 mg/dL (9-20); Calcium 10.0 mg/dL (8.4-10.2); Carbon Dioxide 27 mmol/L (22-32); Chloride 102 mmol/L (98-107); Estimated Glomerular Filt Rate > 60 mL/min (>60); Globulin 3.2 g/dL (1.7-4.1); Glucose 96 mg/dL (70-99); HEMOLYSIS < 15 (0-50); Potassium 4.2 mmol/L (3.4-5.1); Sodium 139 mmol/L (137-145); Total Protein 8.0 g/dL (6.3-8.2)
[2024-08-14 18:23] LABS: Free T4, Direct Thyroxine 1.21 ng/dL (0.78-2.19)
[2024-08-14 18:37] LABS: Thyroid Stimulating Hormone 3.35 uIU/mL (0.47-4.68)
== END ==
PROVIDERS: Family Provider Nurse Practitioner Family; PCP Family Medicine; Referring Provider Family Medicine; Visit Provider Family Medicine
DX: E10.65 Type 1 diabetes mellitus with hyperglycemia (principal); E03.9 Hypothyroidism, unspecified; D63.8 Anemia in other chronic diseases classified elsewhere; I10 Essential (primary) hypertension
CPT/HCPCS: 36415; 80053; 83036; 84439; 84443

== ENCOUNTER 2024-10-13 19:39 | Emergency (ER) | payer OTHER, SELFPAY ==
[2024-09-27 18:43] VITALS: BMI 24.0
[2024-10-13] VITALS (8 sets, daily range): BP systolic 154–182; BP diastolic 95–115; PULSE 88–104; RESP 18–21; TEMP 36.1; O2SAT 87–100; BMI 24.3
[2024-10-13 20:34] LABS: Base Excess VBG 3.0 mmol/L (0-4); HCO3 VBG 25 mmol/L (24-28); Oxygen Saturation VBG 71 % (70-75); PCO2 VBG 30.3 mmHg (45-50); PO2 VBG 32 mmHg (35-45); Total CO2 VBG 24 mmol/L (24-29); pH VBG 7.52 (7.33-7.43)
[2024-10-13] MEDS: ONDANSETRON 4 MG/2 ML INJ IV (21:04)
[2024-10-13 22:15] LABS: Add Manual Diff / Slide Review NO; Hematocrit 39.7 % (41-53); Hemoglobin 13.4 g/dL (13.5-17.5); Lymphocytes Absolute Auto 800 /uL (1100-4500); Mean Corpuscular HGB Conc 33.8 % (30-36); Mean Corpuscular Hemoglobin 26.7 PG (26-34); Mean Corpuscular Volume 79.1 fL (80-100); Platelet Count 259 X10^3/uL (150-400)
[2024-10-13 22:24] LABS: Alanine Aminotransferase 26 IU/L (<50); Albumin 4.9 g/dL (3.5-5.0); Albumin Globulin Ratio 1.3 (1.0-2.8); Alkaline Phosphatase 85 U/L (38-126); Blood Urea Nitrogen 30 mg/dL (9-20); Calcium 9.9 mg/dL (8.4-10.2); Carbon Dioxide 24 mmol/L (22-32); Chloride 99 mmol/L (98-107); Estimated Glomerular Filt Rate > 60 mL/min (>60); Globulin 3.7 g/dL (1.7-4.1); Glucose 175 mg/dL (70-99); HEMOLYSIS < 15 (0-50); Lipase 41 U/L (23-300); Potassium 3.7 mmol/L (3.4-5.1); Sodium 137 mmol/L (137-145); Total Protein 8.6 g/dL (6.3-8.2)
[2024-10-13] MEDS: SODIUM CHLORIDE 0.9% 1,000 ML 1000 ML IV (22:38)
--- NOTE | 2024-10-13 22:42 | DI.CT.S_ITS ---
PROCEDURE: CT ABDOMEN PELVIS W CON INDICATIONS: abd pain, hx diabetes TECHNIQUE: After the administration of intravenous contrast, axial sections acquired from the lung bases to the pubic symphysis. Coronal and sagittal reformats were performed. For radiation dose reduction, the following was used: automated exposure control, adjustment of mA and/or kV according to patient size. COMPARISON: [facility], CT, CT ABDOMEN PELVIS W CON, 12/29/2023, 23:05. FINDINGS: Image quality: Diagnostic. Lower Chest: Lung bases are clear. Wall thickening of the visualized distal esophagus. ABDOMEN: Liver: No solid mass. Gallbladder: No radiopaque gallstones or wall thickening. Biliary ducts: No biliary dilation. Pancreas: No ductal dilation. Spleen: Size is within normal limits. Adrenal Glands: No adrenal nodules. Kidneys and Ureters: No hydronephrosis. No solid mass. No complex renal cystic lesion which requires follow up. Stomach and Bowel: Normal colonic caliber, without significant wall thickening. Normal appendix. Peritoneum: No abnormal intraperitoneal fluid. No free air. Ventral Wall: No significant ventral hernia. Abdominal Nodes: No retroperitoneal or mesenteric adenopathy by size criteria. Vessels: Aorta and inferior vena cava are normal in size. PELVIS: Pelvic Organs: Unremarkable. Bladder: No bladder wall thickening, accounting for underdistention. Pelvic Nodes: No enlarged lymph nodes. Miscellaneous: No inguinal hernias are seen. Bones: No aggressive osseous abnormality. Stable mild L1 compression deformity. IMPRESSION: 1. Esophageal wall thickening of the visualized distal esophagus. Correlate for esophagitis or reflux. EGD can be obtained as clinically indicated. 2. Otherwise, no acute findings within the abdomen or pelvis. Dictated by: Dominic Padilla M.D. on 10/13/2024 at 23:48 Approved by: Dominic Padilla M.D. on 10/13/2024 at 23:52
[2024-10-13] MEDS: MORPHINE 4 MG/ML INJ IV (22:47)
[2024-10-13 23:56] LABS: Culture Indicated Urine Cult Not Indicated
[2024-10-14] VITALS (23 sets, daily range): BP systolic 89–154; BP diastolic 59–102; PULSE 81–97; RESP 8–28; TEMP 36.6; O2SAT 94–100
--- NOTE | 2024-10-14 00:14 | EKG_ITS ---
[address] [address] Test Date: 2024-10-14 Pat Name: Valentin Noble Department: [facility] Room: Gender: Male Analysis Lead: V : 1990 Requested By: Order Number: [id number] Reading MD: Kiran Moore Measurements Intervals [place] Rate: 101 P: 49 AR: 146 QRS: -39 QRSD: 90 T: 60 QT: 362 QTc: 469 Interpretive Statements Sinus tachycardia Left axis deviation Electronically Signed On 10-16-2024 16:54:11 PDT by Kiran Moore
--- NOTE | 2024-10-14 01:43 | ED_ITS ---
HPI - General Adult General Chief complaint: Diabetic Problem Stated complaint: possible dk Time Seen by Provider: 10/13/24 20:51 Source: patient, RN notes reviewed and old records reviewed Mode of arrival: Ambulatory Limitations: no limitations History of Present Illness HPI narrative: 34-year-old male, type 1 diabetic with multiple admissions for DKA currently on insulin pump. Patient presents with complaint of nausea and vomiting that started about 2044 in the a.m. he did not describes abdominal pain that radiates just above his belly button towards his back. Patient has had issues with abdominal pain in the past, he does report gastroparesis history. Denies fevers but has felt sweaty and chilled. Denies shortness of breath. No chest pain, he has had nausea and vomiting. States he had a bowel movement the last 24 hours. Denies any diarrhea or constipation. Denies any black or bloody stools. Denies issues with urination. Denies any new issues with swelling. Home medications include as insulin, metoprolol, fluoxetine, hydroxyzine, levothyroxine, metoclopramide, sildenafil, supra accident, tadalafil and [place]. Reports allergies to aspirin, [place] and ibuprofen. Has had prior ankle surgery remotely. No tobacco, alcohol or recreational drugs. He follows with Dr. Jung. Has had frequent admissions for DKA. Related Data Home Medications ?Medication ?Instructions ?Recorded ?Confirmed insulin pump syringe 3 mL 10/04/23 10/16/24 (Extended Singer) metoprolol succinate 50 mg 50 mg PO DAILY 10/22/2310/02 tablet,extended release 24 hr blood sugar diagnostic (True 12/24/23 10/16/24 Metrix Glucose Test Strip) blood-glucose meter (True Metrix 12/24/23 10/16/24 Glucose Meter) lancets 30 gauge (TRUEplus Lancets) 12/24/23 10/16/24 blood-glucose,director mobile media solutions,cont 01/14/24 10/17/24 (Dexcom G6 [employer]otive Fuel Injection Servicer) metoclopramide HCl 5 mg tablet 5 mg PO TID 04/05/24 Previous Rx's ?Medication ?Instructions ?Recorded levothyroxine 50 mcg tablet 50 mcg PO DAILY #90 tabs 0 10/22/23 blood-glucose transmitter (Dexcom #1 ea 01/18/24 G6 Transmitter device) hydroxyzine HCl 10 mg tablet 10 mg PO TID PRN anxiety #84 tabs 01/31/24 insulin regular human 100 unit/mL See Rx Instructions .Route 02/04/24 injection solution (Humulin R .COMPLEX #10 mL Regular U-100 Insulin) blood-glucose sensor (Dexcom G6 #3 ea 06/19/24 Sensor device) suvorexant 20 mg tablet 20 mg PO BEDTIME PRN insomni a #30 07/12/24 tabs sildenafil 100 mg tablet 100 mg PO DAILY PRN sexual 0 08/24/24 activity #10 tabs tadalafil 5 mg tablet 5 mg PO DAILY #90 tabs 08/28 fluoxetine 40 mg capsule 40 mg PO QAM #30 caps hydrocodone 5 mg-acetaminophen 325 1 tab PO TID PRN pa in #90 tabs 10/13/24 mg tablet Allergies Allergy/AdvReac Type Severity Reaction Status Date / Time aspirin (ASPIRIN) Allergy Unknown MAKES ME Verified 10/15/24 12:28 GO DEAF hydrocodone (HYDROCODONE) AdvReac Intermediate VOMITING Verified 10/15/24 12:28 ibuprofen (IBUPROFEN) AdvReac Intermediate HURTS Verified 10/15/24 12:28 KIDNEYS Review of Systems Review of Systems ROS Unobtainable: All systems reviewed & are unremarkable except as noted in HPI and below Patient History Medical History Anemia in other chronic diseases classified elsewhere Erectile dysfunction Insomnia Anxiety Migraines Headache Shoulder pain Osteoporosis Cataracts, bilateral Partial blindness GI bleeding Gastroparesis Gastric ulcer Chronic back pain MDD (major depressive disorder), recurrent episode, moderate Generalized anxiety disorder Compression fracture Chronic lower back pain HTN (hypertension) Hypothyroidism Marijuana use History of MRSA infection History of pneumonia Blurry vision, bilateral Diabetic neuropathy Bipolar disorder with depression Nausea and vomiting Diabetes type 1, uncontrolled Diabetic gastroparesis Surgical History No pertinent past surgical history Family History Mother No known health problems Father No known health problems Social History household members: family alcohol intake: never alcohol intake frequency: holidays/special occasions only Alcohol type: hard liquor Exam Narrative Exam Narrative: GENERAL: Alert and oriented x three, chronically ill-appearing male in mild distress HEENT: Head normocephalic, atraumatic, EOMI, pupils reactive, face symmetric, moist mucous membranes NECK: Supple, full range of motion CARDIOVASCULAR: Regular rate and rhythm without murmurs, rubs or gallops. No swelling bilateral lower extremities. RESPIRATORY: Breath sounds equal bilaterally, no wheezes rales or rhonchi. ABDOMEN: Soft, mild tenderness. Nondistended. Normoactive bowel sounds all 4 quadrants. No guarding or rebound, rigidity, no mass : No CVA tenderness EXTREMITIES: Normal range of motion, no clubbing or edema. Neurovascularly intact NEUROLOGICAL: Cranial nerves II through XII grossly intact. Moving all extremities SKIN: Warm, dry, no petechiae, no rashes or lesions. Initial Vital Signs Initial Vital Signs: Vital Signs Temperature 97 F L 10/13/24 20:02 Pulse Rate 104 H 10/13/24 20:02 Respiratory Rate 18 10/13/24 20:02 Blood Pressure 182/115 H 10/13/24 20:02 Pulse Oximetry 100 10/13/24 20:02 Oxygen Delivery Method Room Air 10/13/24 20:02 Course Orders Ordered: Discontinued Medications Sodium Chloride (Normal Saline 0.9%) 1,000 mls @ 1,000 mls/hr IV BOLUS ONE Stop: 10/13/24 21:50 Last Infusion: 10/14/24 00:46 Dose: Infused Documented By: Admin: 10/13/24 22:38 Dose: 1,000 mls/hr Documented By: ARELY [facility] 1,000 mg in 100 mls @ 400 mls/hr IV NOW ONE Stop: 10/14/24 02:39 Last Infusion: 10/14/24 04:26 Dose: Infused Documented By: Admin: 10/14/24 03:20 Dose: 400 mls/hr Documented By: Metoclopramide HCl (Metoclopramide 10 Mg/2 Ml Inj) 10 mg IV NOW ONE Stop: 10/14/24 05:55 Last Admin: 10/14/24 06:03 Dose: 10 mg Documented By: Morphine Sulfate (Morphine 4 Mg/Ml Inj) 4 mg IV NOW ONE Stop: 10/13/24 22:42 Last Admin: 10/13/24 22:47 Dose: 4 mg Documented By: ARELY Ondansetron HCl (Ondansetron 4 Mg/2 Ml Inj) 4 mg IV NOW PRN PRN Reason: Nausea And Vomiting Last Admin: 10/13/24 21:04 Dose: 4 mg Documented By: VALERI Ondansetron HCl (Ondansetron 4 Mg Odt) 4 mg PO NOW PRN PRN Reason: Nausea And Vomiting Ondansetron HCl (Ondansetron 4 Mg Odt Prepack) 1 bottle MISC DIRECTED ONE Stop: 10/14/24 05:25 Last Admin: 10/14/24 05:48 Dose: 1 bottle Documented By: Ondansetron HCl (Ondansetron 4 Mg/2 Ml Inj) 4 mg IV NOW ONE Stop: 10/14/24 05:49 Last Admin: 10/14/24 05:55 Dose: Not Given Documented By: Prochlorperazine (Prochlorperazine 10 Mg/2 Ml Vial) 10 mg IV NOW ONE Stop: 10/14/24 02:25 Last Admin: 10/14/24 03:16 Dose: 10 mg Documented By: Vital Signs Vital signs: Vital Signs - 8 hr 10/13/24 22:00 10/13/24 22:30 10/13/24 23:00 Pulse Rate 93 H 99 H 90 Respiratory Rate 21 Blood Pressure Pulse Oximetry 100 100 95 Oxygen Delivery Method Oxygen Flow Rate 10/13/24 23:01 10/13/24 23:01 10/13/24 23:30 Pulse Rate 89 92 H Respiratory Rate Blood Pressure 154/95 H Pulse Oximetry 87 L Oxygen Delivery Method Room Air Nasal Cannula Oxygen Flow Rate 2 10/14/24 00:00 10/14/24 00:30 10/14/24 00:43 Pulse Rate 97 H 89 Respiratory Rate 16 Blood Pressure Pulse Oximetry 100 94 Oxygen Delivery Method Oxygen Flow Rate 10/14/24 01:00 10/14/24 01:25 10/14/24 01:30 Pulse Rate 81 90 Respiratory Rate 22 Blood Pressure 154/94 H Pulse Oximetry 100 100 Oxygen Delivery Method Oxygen Flow Rate 10/14/24 02:00 10/14/24 02:30 10/14/24 03:00 Pulse Rate 82 87 83 Respiratory Rate 14 12 15 Blood Pressure Pulse Oximetry 100 100 100 Oxygen Delivery Method Oxygen Flow Rate 10/14/24 03:16 10/14/24 03:19 10/14/24 03:19 Pulse Rate 87 87 Respiratory Rate 10 L Blood Pressure 117/81 117/81 Pulse Oximetry 100 Oxygen Delivery Method Oxygen Flow Rate 10/14/24 03:30 10/14/24 03:30 10/14/24 04:00 Pulse Rate 84 85 Respiratory Rate 8 L 15 Blood Pressure 104/73 Pulse Oximetry 100 100 Oxygen Delivery Method Room Air Oxygen Flow Rate 10/14/24 04:00 10/14/24 04:30 10/14/24 04:30 Pulse Rate 82 Respiratory Rate 18 Blood Pressure 91/64 89/61 L Pulse Oximetry 100 Oxygen Delivery Method Oxygen Flow Rate 10/14/24 05:00 10/14/24 05:00 10/14/24 05:30 Pulse Rate 84 Respiratory Rate 18 Blood Pressure 92/59 L 105/72 Pulse Oximetry 100 Oxygen Delivery Method Oxygen Flow Rate 10/14/24 05:30 Pulse Rate 83 Respiratory Rate 20 Blood Pressure Pulse Oximetry 99 Oxygen Delivery Method Room Air Oxygen Flow Rate Medical Decision Making Lab Data 10/13/24 22:00 10/13/24 22:00 Labs: Lab Results 10/13/24 10/13/24 10/13/24 Range/Units 20:04 20:32 22:00 WBC 12.6 H (4.5-11.0) X10^3/uL RBC 5.02 (4.5-5.9) X10^6/uL Hgb 13.4 L (13.5-17.5) g/dL Hct 39.7 L (41-53) % MCV 79.1 L (80-100) fL MCH 26.7 (26-34) PG MCHC 33.8 (30-36) % RDW 17.5 H (11.6-14.8) % Plt Count 259 (150-400) X10^3/uL Neut % (Auto) 89.5 H (50-75) % Lymph % (Auto) 6.4 L (25-40) % [place] % (Auto) 3.5 (3-14) % Eos % (Auto) 0.0 L (2-4) % Baso % (Auto) 0.6 (0-2) % Neut # (Auto) 27367 H (0846-5901) /uL Lymph # (Auto) 800 L (3167-7324) /uL [place] # (Auto) 400 (0-900) /uL Eos # (Auto) 0 (0-450) /uL Baso # (Auto) 100 (0-100) /uL VBG pH 7.52 H (7.33-7.43) VBG pCO2 30.3 L (45-50) mmHg VBG pO2 32 L (35-45) mmHg VBG HCO3 25 (24-28) mmol/L VBG Total CO2 24 (24-29) mmol/L VBG O2 Saturation 71 (70-75) % VBG Base Excess 3.0 (0-4) mmol/L FiO2 % 21.0 % % Sodium 137 (137-145) mmol/L Potassium 3.7 (3.4-5.1) mmol/L Chloride 99 (98-107) mmol/L Carbon Dioxide 24 (22-32) mmol/L BUN 30 H (9-20) mg/dL Creatinine 1.21 (0.66-1.25) mg/dL Estimated GFR > 60 (>60) mL/min BUN/Creatinine Ratio 24.8 H (6-22) Glucose 175 H (70-99) mg/dL POC Whole Bld Glucose 126 H (70-99) mg/dL Calcium 9.9 (8.4-10.2) mg/dL Total Bilirubin 0.6 (0.2-1.3) mg/dL AST 32 (17-59) IU/L ALT 26 (<50) IU/L Alkaline Phosphatase 85 (38-126) U/L Total Protein 8.6 H (6.3-8.2) g/dL Albumin 4.9 (3.5-5.0) g/dL Globulin 3.7 (1.7-4.1) g/dL Albumin/Globulin Ratio 1.3 (1.0-2.8) Lipase 41 (23-300) U/L Urine RBC (0-5/HPF) Urine WBC (0-5/HPF) Ur Squamous Epith Cells (0-5/HPF) Urine Bacteria (None) Ur Culture Indicated? Vol Urine Centrifuged Ketones (<0.27) mmol/L 10/13/24 10/13/24 10/14/24 Range/Units 22:34 23:00 04:14 WBC (4.5-11.0) X10^3/uL RBC (4.5-5.9) X10^6/uL Hgb (13.5-17.5) g/dL Hct (41-53) % MCV (80-100) fL MCH (26-34) PG MCHC (30-36) % RDW (11.6-14.8) % Plt Count (150-400) X10^3/uL Neut % (Auto) (50-75) % Lymph % (Auto) (25-40) % [place] % (Auto) (3-14) % Eos % (Auto) (2-4) % Baso % (Auto) (0-2) % Neut # (Auto) (0435-1048) /uL Lymph # (Auto) (0921-0121) /uL [place] # (Auto) (0-900) /uL Eos # (Auto) (0-450) /uL Baso # (Auto) (0-100) /uL VBG pH (7.33-7.43) VBG pCO2 (45-50) mmHg VBG pO2 (35-45) mmHg VBG HCO3 (24-28) mmol/L VBG Total CO2 (24-29) mmol/L VBG O2 Saturation (70-75) % VBG Base Excess (0-4) mmol/L FiO2 % % Sodium (137-145) mmol/L Potassium (3.4-5.1) mmol/L Chloride (98-107) mmol/L Carbon Dioxide (22-32) mmol/L BUN (9-20) mg/dL Creatinine (0.66-1.25) mg/dL Estimated GFR (>60) mL/min BUN/Creatinine Ratio (6-22) Glucose (70-99) mg/dL POC Whole Bld Glucose 82 (70-99) mg/dL Calcium (8.4-10.2) mg/dL Total Bilirubin (0.2-1.3) mg/dL AST (17-59) IU/L ALT (<50) IU/L Alkaline Phosphatase (38-126) U/L Total Protein (6.3-8.2) g/dL Albumin (3.5-5.0) g/dL Globulin (1.7-4.1) g/dL Albumin/Globulin Ratio (1.0-2.8) Lipase (23-300) U/L Urine RBC 0-1/hpf (0-5/HPF) Urine WBC None seen (0-5/HPF) Ur Squamous Epith Cells 0-1 /hpf (0-5/HPF) Urine Bacteria None seen (None) Ur Culture Indicated? Cult not indicated Vol Urine Centrifuged 10ml (spun) Ketones 2.33 H (<0.27) mmol/L Point of Care Testing Glucose POC 82 Urine Dip Bedside Urine Glucose 100 mg/dl Bedside Urine Bilirubin - Negative Bedside Urine Ketone - Negative Urine Specific [place] 1.010 Bedside Urine Occult Blood ++ Bedside Urine pH 7.5 Bedside Urine Protein + 30 Bedside Urine Urobilinogen - Negative Bedside Urine Nitrite - Negative Bedside Urine Leukocytes - Negative Esterase Point of care testing: Point of Care Testing Glucose POC 82 Urine Dip Bedside Urine Glucose 100 mg/dl Bedside Urine Bilirubin - Negative Bedside Urine Ketone - Negative Urine Specific [place] 1.010 Bedside Urine Occult Blood ++ Bedside Urine pH 7.5 Bedside Urine Protein + 30 Bedside Urine Urobilinogen - Negative Bedside Urine Nitrite - Negative Bedside Urine Leukocytes - Negative Esterase ECG Data Attestation: I personally reviewed and interpreted this ECG as follows: Prior ECG tracings: available for review Interpretation: Sinus tachycardia rate of 101 FL 146 QRS of 90 QTC of 469, no acute ST elevation or depression. Patient has prior for comparison. No acute ST changes. [facility] Narrative Medical decision making narrative: Labs show white count of 12.6 hemoglobin is 13.4, microcytic, platelets of 259. Electrolytes are appropriate BUN 30 creatinine is 1.21, glucose is 175 LFTs are negative. Ketones was 2.33. ABG patient's alkalotic with the patient's 752, pCO2 of 30, PO2 of 32, bicarb of 25. Positive protein no nitrates or leuks. Urine 1 RBC 1 squamous no white cells no bacteria. Sinus tachycardia rate of 101 FL 146 QRS of [address] abdomen pelvis esophageal wall thickening of the distal esophagus. Correlate for esophagitis or reflux EGD can be obtained as clinically indicated. No other acute findings within the abdomen or pelvis. Patient does not appear to be in DKA. Patient presented with a complaint of vomiting since this a.m. has had recurrent episodes of DKA. Does not appear to be in DKA he is alkalotic with a glucose of 126. Patient had Zofran, pain medication and fluids here in the department Received additional dose of antinausea with the Compazine. Patient had low O2 after receiving morphine. Was given acetaminophen pain. Patient had oral challenge and able to tolerate has not had any vomiting in several hours. Had discussed observation but as patient is tolerating, no signs of DKA and improvement of symptoms will discharge home. Discussed strict return precautions. Patient states he has a home medications but would be open to prepack of antinausea medication. Discharge Plan Departure Patient Disposition: Home Clinical Impression: Vomiting Instructions: DI for Vomiting -- Adult Activity Restrictions/Additional Instructions: Follow up for recheck. Continue your home medications as prescribed. You can take Zofran 1 tablet every 6 hours as needed. Please return for develop fevers, recurrent vomiting, new or worsening abdominal back or flank pain, any black or bloody stools. Difficulties with controlling your blood glucose or other new or concerning changes. Prescriptions: No Action (DME) Dexcom G6 Transmitter Device See Rx Instructions .Route Qty: 1 3RF Rx Instructions: continuously monitor blood sugars hydroxyzine HCl 10 mg tablet 10 mg PO TID PRN (Reason: anxiety) Qty: 84 0RF Humulin R Regular U-100 Insuln 100 unit/mL solution See Rx Instructions .ROUTE .COMPLEX Qty: 10 3RF Rx Instructions: 40 units via insulin pump max daily dose 45 units (DME) Dexcom G6 Sensor Device See Rx Instructions .ROUTE .COMPLEX Qty: 3 3RF Dose Instruction: use to continuously monitor blood sugars, CHANGE EVERY 10 DAYS Rx Instructions: use to continuously monitor blood sugars, CHANGE EVERY 10 DAYS suvorexant 20 mg tablet 20 mg PO BEDTIME PRN (Reason: insomnia) Qty: 30 2RF sildenafil 100 mg tablet 100 mg PO DAILY PRN (Reason: sexual activity) Qty: 10 2RF fluoxetine 40 mg capsule 40 mg PO QAM Qty: 30 2RF metoprolol succinate 50 mg tablet extended release 24 hr 50 mg PO DAILY levothyroxine 50 mcg tablet 50 mcg PO DAILY Qty: 90 1RF hydrocodone-acetaminophen 5-325 mg tablet 1 tab PO TID PRN (Reason: pain) Qty: 90 0RF (DME) Extended Singer 3 mL Misc MISCELLANEOUS Rx Instructions: patient uses insulin pump metoclopramide HCl 5 mg tablet 5 mg PO TID (DME) True Metrix Glucose Test Strip Strip MISCELLANEOUS 4XD (DME) lancets [TRUEplus Lancets] 30 gauge misc MISCELLANEOUS 4XD (DME) blood-glucose meter [True Metrix Glucose Meter] Misc MISCELLANEOUS (DME) Dexcom G6 [employer] Fuel Injection Servicer Misc MISCELLANEOUS Patient Comments: [NO ORIGINAL SIG] tadalafil 5 mg tablet 5 mg PO DAILY Qty: 90 2RF Referrals: James Jung DO [Primary Care Provider, Family Practice] Stand Alone Forms: Patient Portal/API
[2024-10-14 02:30] LABS: Ketones (Beta-Hydroxybutyrate) 2.33 mmol/L (<0.27)
[2024-10-14] MEDS: PROCHLORPERAZINE 10 MG/2 ML VIAL IV (03:16)
[2024-10-14] MEDS: ACETAMINOPHEN IV 1,000 MG/100 ML VIAL 400 MG IV (03:20)
[2024-10-14] MEDS: ONDANSETRON 4 MG ODT PREPACK 1 BOTTLE MISC (05:48)
[2024-10-14] MEDS: METOCLOPRAMIDE 10 MG/2 ML INJ IV (06:03)
--- NOTE | 2024-10-14 06:38 | PC.NURSE ---
Pt had about 1.5 cups of clear emesis at this time. Advised pt to continue to take slow sips. Discussed with pt about how he will get home. Pt states that his grandma drove him and will pick him up, but she is not awake at this time.
== END 2024-10-14 08:26 | disposition home or self-care (01) ==
PROVIDERS: Emergency Provider Emergency Medicine; Family Provider Nurse Practitioner Family; PCP Family Medicine
DX: A41.9 Sepsis, unspecified organism (principal); E10.8 Type 1 diabetes mellitus with unspecified complications; Z79.4 Long term (current) use of insulin; R11.2 Nausea with vomiting, unspecified
CPT/HCPCS: 36415; 74177; 80053; 81003; 81015; 82009; 82805; 82962; 83690; 85025; 93005; 99285; J0131; J0780; J2270; J2405; J2765; Q9967

== ENCOUNTER 2024-10-15 12:17 | Inpatient (IN) | payer MEDICAID, OTHER, SELFPAY ==
[2024-09-27 18:43] VITALS: BMI 24.0
[2024-10-15] VITALS (15 sets, daily range): BP systolic 119–191; BP diastolic 72–119; PULSE 91–114; RESP 13–34; TEMP 36.4–37; O2SAT 81–100; BMI 23.6; BMI 24.2
--- NOTE | 2024-10-15 12:53 | EKG_ITS ---
[address] [address] Test Date: 2024-10-15 Pat Name: Valentin Noble Department: [facility] Room: Gender: Male [employer] Installer: RACHELL : 1990 Requested By: Order Number: [id number] Reading MD: Kiran Moore Measurements Intervals [place] Rate: 113 P: 60 PA: 150 QRS: -15 QRSD: 80 T: 58 QT: 332 QTc: 455 Interpretive Statements Sinus tachycardia Electronically Signed On 10-16-2024 13:52:03 PDT by Kiran Moore
[2024-10-15 13:15] LABS: Hematocrit 40.4 % (41-53); Hemoglobin 13.6 g/dL (13.5-17.5); Lymphocytes Absolute Auto 1700 /uL (1100-4500); Mean Corpuscular HGB Conc 33.6 % (30-36); Mean Corpuscular Hemoglobin 26.5 PG (26-34); Mean Corpuscular Volume 79.1 fL (80-100); Platelet Count 315 X10^3/uL (150-400)
[2024-10-15 13:17] LABS: Alanine Aminotransferase 32 IU/L (<50); Albumin 5.0 g/dL (3.5-5.0); Albumin Globulin Ratio 1.4 (1.0-2.8); Alkaline Phosphatase 90 U/L (38-126); Blood Urea Nitrogen 19 mg/dL (9-20); Calcium 10.3 mg/dL (8.4-10.2); Carbon Dioxide 20 mmol/L (22-32); Chloride 98 mmol/L (98-107); Estimated Glomerular Filt Rate > 60 mL/min (>60); Globulin 3.7 g/dL (1.7-4.1); Glucose 132 mg/dL (70-99); Lactate (Lactic Acid) 3.9 mmol/L (0.7-2.1); Lipase 35 U/L (23-300); Potassium 3.7 mmol/L (3.4-5.1); Sodium 137 mmol/L (137-145); Total Protein 8.7 g/dL (6.3-8.2)
[2024-10-15 13:20] LABS: Add Manual Diff / Slide Review SLIDE REVIEW
[2024-10-15] MEDS: SODIUM CHLORIDE 0.9% 1,000 ML 1000 ML IV ×2 (13:22→14:57)
[2024-10-15] MEDS: METOCLOPRAMIDE 10 MG/2 ML INJ IV (13:23)
[2024-10-15 13:31] LABS: Base Excess VBG 1.2 mmol/L (0-4); HCO3 VBG 22 mmol/L (24-28); Oxygen Saturation VBG 85 % (70-75); PCO2 VBG 25.2 mmHg (45-50); PO2 VBG 42 mmHg (35-45); Total CO2 VBG 21 mmol/L (24-29); pH VBG 7.55 (7.33-7.43)
[2024-10-15 13:34] LABS: HEMOLYSIS 28 (0-50); Ketones (Beta-Hydroxybutyrate) 1.47 mmol/L (<0.27)
[2024-10-15 13:56] LABS: Anisocytosis 1+; Microcytosis 1+
--- NOTE | 2024-10-15 14:28 | ED_ITS ---
HPI - Abdominal Pain General Chief Complaint: Abdominal Pain Stated Complaint: Nausea, vomiting, abdominal and back pain Time Seen by Provider: 10/15/24 12:53 Source: patient Mode of arrival: Ambulatory History of Present Illness HPI narrative: Patient is a 34-year-old male type 1 diabetic multiple admissions for DKA on insulin pump presenting for the 2nd time this week for the same. He reports that he continues to vomit he is currently holding a bag of vomit. He had a workup yesterday ultimately sent home. He reports he is still in pain still vomiting. No other symptoms. Last admission was September 27 through the Related Data Home Medications ?Medication ?Instructions ?Recorded ?Confirmed insulin pump syringe 3 mL 10/04/23 10/16/24 (Extended [place]) metoprolol succinate 50 mg 50 mg PO DAILY 10/22/2307/02 tablet,extended release 24 hr blood sugar diagnostic (True 12/24/23 10/16/24 Metrix Glucose Test Strip) blood-glucose meter (True Metrix 12/24/23 10/16/24 Glucose Meter) lancets 30 gauge (TRUEplus Lancets) 12/24/23 10/16/24 blood-glucose,kennel aide,cont 01/14/24 10/13/24 (Dexcom G6 Bulldozer/Loader/Compactor/Scraper) metoclopramide HCl 5 mg tablet 5 mg PO TID 04/05/24 Previous Rx's ?Medication ?Instructions ?Recorded levothyroxine 50 mcg tablet 50 mcg PO DAILY #90 tabs 0 10/22/23 blood-glucose transmitter (Dexcom #1 ea 01/18/24 G6 Transmitter device) hydroxyzine HCl 10 mg tablet 10 mg PO TID PRN anxiety #84 tabs 01/31/24 insulin regular human 100 unit/mL See Rx Instructions .Route 02/04/24 injection solution (Humulin R .COMPLEX #10 mL Regular U-100 Insulin) blood-glucose sensor (Dexcom G6 #3 ea 06/19/24 Sensor device) suvorexant 20 mg tablet 20 mg PO BEDTIME PRN insomni a #30 07/12/24 tabs sildenafil 100 mg tablet 100 mg PO DAILY PRN sexual 0 08/24/24 activity #10 tabs tadalafil 5 mg tablet 5 mg PO DAILY #90 tabs 08/28 fluoxetine 40 mg capsule 40 mg PO QAM #30 caps hydrocodone 5 mg-acetaminophen 325 1 tab PO TID PRN pa in #90 tabs 10/13/24 mg tablet Allergies Allergy/AdvReac Type Severity Reaction Status Date / Time aspirin (ASPIRIN) Allergy Unknown MAKES ME Verified 10/15/24 12:28 GO DEAF hydrocodone (HYDROCODONE) AdvReac Intermediate VOMITING Verified 10/15/24 12:28 ibuprofen (IBUPROFEN) AdvReac Intermediate HURTS Verified 10/15/24 12:28 KIDNEYS Patient History Medical History Anemia in other chronic diseases classified elsewhere Anxiety Bipolar disorder with depression Blurry vision, bilateral Cataracts, bilateral Chronic back pain Chronic lower back pain Compression fracture Diabetes type 1, uncontrolled Diabetic gastroparesis Diabetic neuropathy Erectile dysfunction Gastric ulcer Gastroparesis Generalized anxiety disorder GI bleeding Headache History of MRSA infection History of pneumonia HTN (hypertension) Hypothyroidism Insomnia Marijuana use MDD (major depressive disorder), recurrent episode, moderate Migraines Nausea and vomiting Osteoporosis Partial blindness Shoulder pain Surgical History No pertinent past surgical history Family History Mother No known health problems Father No known health problems Social History household members: family alcohol intake: never alcohol intake frequency: holidays/special occasions only Alcohol type: hard liquor Exam Initial Vital Signs Initial Vital Signs: Vital Signs Temperature 97.7 F 10/15/24 12:22 Pulse Rate 114 H 10/15/24 12:22 Respiratory Rate 16 10/15/24 12:22 Pulse Oximetry 100 10/15/24 12:22 Oxygen Delivery Method Room Air 10/15/24 12:22 GENERAL: Chronically ill 34-year-old male appears older than stated age HEENT: Head atraumatic,EOMI, pupils reactive, face symmetric, Dry mucous membranes CARDIOVASCULAR: Regular rate and rhythm without murmurs, rubs or gallops. RESPIRATORY: Breath sounds equal bilaterally, no wheezes rales or rhonchi. ABDOMEN: Soft, nontender. Normoactive bowel sounds all 4 quadrants. No guarding or rebound. EXTREMITIES: Normal range of motion, no clubbing or edema. Neurovascularly intact NEUROLOGICAL: Alert and oriented x4.Normal gait and speech. SKIN: Warm, dry, no laceration, no petechiae, no rashes or lesions. Course Orders Ordered: Acetaminophen (Acetaminophen 325 Mg Tablet) 650 mg PO Q6H PRN PRN Reason: Fever/Mild Pain (1-3) Hydrocodone Bitart/Acetaminophen (Hydrocodone/Acet 5/325 Tablet) 1 tab PO TID PRN PRN Reason: pain Enoxaparin Sodium (Enoxaparin 40 Mg/0.4 Ml Syringe) 40 mg SUBCUT DAILY [facility] Fluoxetine HCl (Fluoxetine 20 Mg Capsule) 40 mg PO DAILY [facility] Last Admin: 10/15/24 18:10 Dose: 40 mg Documented By: ENMANUEL Hydromorphone HCl (Hydromorphone Hcl 0.5 Mg/0.5 Ml Syringe) 0.5 mg IV Q2H PRN PRN Reason: Pain, Severe (7-10) Last Admin: 10/16/24 06:49 Dose: 0.5 mg Documented By: Admin: 10/16/24 03:43 Dose: 0.5 mg Documented By: Admin: 10/16/24 00:39 Dose: 0.5 mg Documented By: Admin: 10/15/24 20:03 Dose: 0.5 mg Documented By: Admin: 10/15/24 18:07 Dose: 0.5 mg Documented By: ENMANUEL Sodium Chloride (Normal Saline 0.9%) 1,000 mls @ 150 mls/hr IV CONT [facility] Last Admin: 10/16/24 02:23 Dose: 150 mls/hr Documented By: Infusion: 10/16/24 01:11 Dose: Infused Documented By: Admin: 10/15/24 18:30 Dose: 150 mls/hr Documented By: ENMANUEL Insulin Human Regular (Insulin Regular 100 Unit/Ml 3 Ml Vial) 0 unit SUBCUT PRN PRN PRN Reason: Insulin Pump Levothyroxine Sodium (Levothyroxine 50 Mcg Tablet) 50 mcg PO QACBREAK [facility] Last Admin: 10/16/24 06:47 Dose: 50 mcg Documented By: AT Metoclopramide HCl (Metoclopramide Hcl 5 Mg Tablet) 5 mg PO AC [facility] Last Admin: 10/15/24 18:09 Dose: 5 mg Documented By: ENMANUEL Metoprolol Succinate (Metoprolol Er 50 Mg Tablet) 50 mg PO DAILY [facility] Naloxone HCl (Naloxone 0.4 Mg/Ml Vial) 0.2 mg IV Q2MIN PRN PRN Reason: Opiate Reversal Naloxone HCl (Naloxone 0.4 Mg/Ml Vial) 0.2 mg IV Q2MIN PRN PRN Reason: Opiate Reversal Non-Formulary Medication (Hydroxyzine Hcl) 10 mg PO TID PRN PRN Reason: anxiety Ondansetron HCl (Ondansetron 4 Mg/2 Ml Inj) 4 mg IV Q4HR PRN PRN Reason: Nausea And Vomiting Prochlorperazine (Prochlorperazine 10 Mg/2 Ml Vial) 10 mg IV Q6HR PRN PRN Reason: Nausea Last Admin: 10/16/24 03:43 Dose: 10 mg Documented By: Admin: 10/15/24 19:55 Dose: 10 mg Documented By: AT Zolpidem Tartrate (Zolpidem 5 Mg Tablet) 5 mg PO BEDTIME PRN PRN Reason: insomnia Discontinued Medications Hydromorphone HCl (Hydromorphone 1 Mg/Ml Syringe) 1 mg IV NOW ONE Stop: 10/15/24 14:39 Last Admin: 10/15/24 14:45 Dose: 1 mg Documented By: TC Hydromorphone HCl (Hydromorphone 1 Mg/Ml Syringe) 1 mg IV NOW ONE Stop: 10/15/24 16:19 Last Admin: 10/15/24 16:28 Dose: 1 mg Documented By: VALERI Sodium Chloride (Normal Saline 0.9%) 1,000 mls @ 1,000 mls/hr IV BOLUS ONE Stop: 10/15/24 13:53 Last Infusion: 10/15/24 14:55 Dose: Infused Documented By: Admin: 10/15/24 13:22 Dose: 1,000 mls/hr Documented By: SB Sodium Chloride (Normal Saline 0.9%) 1,000 mls @ 1,000 mls/hr IV BOLUS ONE Stop: 10/15/24 15:37 Last Infusion: 10/15/24 16:27 Dose: Infused Documented By: Admin: 10/15/24 14:57 Dose: 1,000 mls/hr Documented By: TC Piperacillin Sod/Tazobactam (Sod 4.5 gm/ Sodium Chloride) 100 mls @ 200 mls/hr IV STAT ONE Stop: 10/15/24 16:18 Last Infusion: 10/15/24 17:40 Dose: Infused Documented By: Admin: 10/15/24 16:28 Dose: 200 mls/hr Documented By: VALERI Sodium Chloride (Normal Saline 0.9%) 1,000 mls @ 150 mls/hr IV CONT [facility] Last Infusion: 10/16/24 02:24 Dose: Infused Documented By: Admin: 10/15/24 19:55 Dose: 150 mls/hr Documented By: Infusion: 10/15/24 19:55 Dose: Infused Documented By: Admin: 10/15/24 18:14 Dose: 150 mls/hr Documented By: Infusion: 10/15/24 18:14 Dose: Infused Documented By: Admin: 10/15/24 16:29 Dose: 150 mls/hr Documented By: VALERI Lrd5 1,000 bag/ Dextrose/ (Lactated Ringer's) 1,000 mls @ 150 mls/hr IV CONT [facility] Dextrose/Lactated Ringer's (Dextrose 5%-Lactated Ringers) 1,000 mls @ 150 mls/hr IV CONT [facility] Levothyroxine Sodium (Levothyroxine 50 Mcg Tablet) 50 mcg PO DAILY [facility] Metoclopramide HCl (Metoclopramide 10 Mg/2 Ml Inj) 10 mg IV NOW ONE Stop: 10/15/24 12:54 Last Admin: 10/15/24 13:23 Dose: 10 mg Documented By: VALERI Metoclopramide HCl (Metoclopramide Hcl 5 Mg Tablet) 5 mg PO TID [facility] Prochlorperazine (Prochlorperazine 10 Mg/2 Ml Vial) 10 mg IV NOW ONE Stop: 10/15/24 14:39 Last Admin: 10/15/24 14:45 Dose: 10 mg Documented By: TC Vital Signs Vital signs: Vital Signs - 8 hr 10/15/24 12:22 10/15/24 12:29 10/15/24 12:30 Temperature 97.7 F Pulse Rate 114 H 114 H Respiratory Rate 16 19 Blood Pressure 162/100 H 164/100 H Pulse Oximetry 100 100 Oxygen Delivery Method Room Air Oxygen Flow Rate 10/15/24 12:30 10/15/24 13:00 10/15/24 13:30 Temperature Pulse Rate 95 H 107 H Respiratory Rate 24 21 Blood Pressure 153/72 H 177/110 H 191/119 H Pulse Oximetry 99 100 Oxygen Delivery Method Room Air Oxygen Flow Rate 10/15/24 13:30 10/15/24 14:00 10/15/24 14:00 Temperature Pulse Rate 106 H 114 H Respiratory Rate 34 H 26 H Blood Pressure 179/104 H Pulse Oximetry 99 100 Oxygen Delivery Method Oxygen Flow Rate 10/15/24 14:30 10/15/24 14:30 10/15/24 15:00 Temperature Pulse Rate 110 H Respiratory Rate 24 Blood Pressure 185/97 H 125/83 Pulse Oximetry 100 Oxygen Delivery Method Oxygen Flow Rate 10/15/24 15:00 10/15/24 15:11 10/15/24 15:30 Temperature Pulse Rate 96 H 93 H 92 H Respiratory Rate 13 16 Blood Pressure 150/95 H Pulse Oximetry 81 L 92 100 Oxygen Delivery Method Room Air Nasal Cannula Nasal Cannula Oxygen Flow Rate 2 2.0 MDM - Abdominal Pain Lab Data 10/16/24 06:30 10/16/24 06:30 Labs: Lab Results 10/15/24 10/15/24 10/15/24 Range/Units 12:42 12:44 13:27 WBC 11.5 H (4.5-11.0) X10^3/uL RBC 5.11 (4.5-5.9) X10^6/uL Hgb 13.6 (13.5-17.5) g/dL Hct 40.4 L (41-53) % MCV 79.1 L (80-100) fL MCH 26.5 (26-34) PG MCHC 33.6 (30-36) % RDW 16.5 H (11.6-14.8) % Plt Count 315 (150-400) X10^3/uL Neut % (Auto) 79.0 H (50-75) % Lymph % (Auto) 15.2 L (25-40) % [place] % (Auto) 5.2 (3-14) % Eos % (Auto) 0.1 L (2-4) % Baso % (Auto) 0.5 (0-2) % Neut # (Auto) 9100 H (5764-5852) /uL Lymph # (Auto) 1700 (7063-1225) /uL [place] # (Auto) 600 (0-900) /uL Eos # (Auto) 0 (0-450) /uL Baso # (Auto) 100 (0-100) /uL RBC Morphology See below Anisocytosis 1+ H Microcytosis 1+ H VBG pH 7.55 H (7.33-7.43) VBG pCO2 25.2 L (45-50) mmHg VBG pO2 42 (35-45) mmHg VBG HCO3 22 L (24-28) mmol/L VBG Total CO2 21 L (24-29) mmol/L VBG O2 Saturation 85 H (70-75) % VBG Base Excess 1.2 (0-4) mmol/L Sodium 137 (137-145) mmol/L Potassium 3.7 (3.4-5.1) mmol/L Chloride 98 (98-107) mmol/L Carbon Dioxide 20 L (22-32) mmol/L BUN 19 (9-20) mg/dL Creatinine 1.26 H (0.66-1.25) mg/dL Estimated GFR > 60 (>60) mL/min BUN/Creatinine Ratio 15.1 (6-22) Glucose 132 H (70-99) mg/dL POC Whole Bld Glucose 140 H (70-99) mg/dL Lactate 3.9 H (0.7-2.1) mmol/L Calcium 10.3 H (8.4-10.2) mg/dL Total Bilirubin 1.0 (0.2-1.3) mg/dL AST 41 (17-59) IU/L ALT 32 (<50) IU/L Alkaline Phosphatase 90 (38-126) U/L Total Protein 8.7 H (6.3-8.2) g/dL Albumin 5.0 (3.5-5.0) g/dL Globulin 3.7 (1.7-4.1) g/dL Albumin/Globulin Ratio 1.4 (1.0-2.8) Lipase 35 (23-300) U/L Ketones 1.47 H (<0.27) mmol/L 10/15/24 10/15/24 Range/Units 14:45 16:39 WBC (4.5-11.0) X10^3/uL RBC (4.5-5.9) X10^6/uL Hgb (13.5-17.5) g/dL Hct (41-53) % MCV (80-100) fL MCH (26-34) PG MCHC (30-36) % RDW (11.6-14.8) % Plt Count (150-400) X10^3/uL Neut % (Auto) (50-75) % Lymph % (Auto) (25-40) % [place] % (Auto) (3-14) % Eos % (Auto) (2-4) % Baso % (Auto) (0-2) % Neut # (Auto) (7701-2917) /uL Lymph # (Auto) (8290-8070) /uL [place] # (Auto) (0-900) /uL Eos # (Auto) (0-450) /uL Baso # (Auto) (0-100) /uL RBC Morphology Anisocytosis Microcytosis VBG pH (7.33-7.43) VBG pCO2 (45-50) mmHg VBG pO2 (35-45) mmHg VBG HCO3 (24-28) mmol/L VBG Total CO2 (24-29) mmol/L VBG O2 Saturation (70-75) % VBG Base Excess (0-4) mmol/L Sodium (137-145) mmol/L Potassium (3.4-5.1) mmol/L Chloride (98-107) mmol/L Carbon Dioxide (22-32) mmol/L BUN (9-20) mg/dL Creatinine (0.66-1.25) mg/dL Estimated GFR (>60) mL/min BUN/Creatinine Ratio (6-22) Glucose (70-99) mg/dL POC Whole Bld Glucose (70-99) mg/dL Lactate 4.3 H* 1.0 (0.7-2.1) mmol/L Calcium (8.4-10.2) mg/dL Total Bilirubin (0.2-1.3) mg/dL AST (17-59) IU/L ALT (<50) IU/L Alkaline Phosphatase (38-126) U/L Total Protein (6.3-8.2) g/dL Albumin (3.5-5.0) g/dL Globulin (1.7-4.1) g/dL Albumin/Globulin Ratio (1.0-2.8) Lipase (23-300) U/L Ketones (<0.27) mmol/L Imaging Data Chest x-ray: Radiologist's Impression: PROCEDURE: XR CHEST 1V INDICATIONS: sepsis TECHNIQUE: One view of the chest was acquired. COMPARISON: [facility], CT, CT ABDOMEN PELVIS W CON, 10/13/2024, 23:25. [facility], CR, XR CHEST 1V, 09/18/2024, 18:41. FINDINGS: Surgical changes and devices: None. Lungs and pleura: Lungs are clear. No pleural effusions or pneumothorax. Mediastinum: Mediastinal contours appear normal. Heart size is normal. Bones and chest wall: No suspicious bony lesions. Overlying soft tissues appear unremarkable. IMPRESSION: No focal infiltrates are seen. Dictated by: David Schultz M.D. on 10/15/2024 at 16:11 ECG Data Attestation: I personally reviewed and interpreted this ECG as follows: Prior ECG tracings: available for review Interpretation: Sinus tachycardia rate 113 NM interval 150 QRS 80 QTC 455 artifact noted similar to prior EKGs MDM Narrative Medical decision making narrative: MDM CC: Vomiting Complicating co-morbidities: Poorly controlled type 1 diabetes frequent admission Data collected from: Patient Medical records reviewed: Multiple hospital visits Differential considered: DKA sepsis Exam documented above, pertinent findings include: Dry mucous membranes abdomen is soft but diffusely tender Lab Test results independently reviewed as above. Pertinent findings: PH is 7.55 x-ray with 7.5 to this is about baseline for him Ketones Glucose 140 Electrolytes sodium 137 potassium 3.7 chloride 98 carbon dioxide 20 BUN 19 creatinine 1.26 Anion gap 19 Lactic acid 3.9 with repeat 4.3 Blood cultures pending Independently reviewed EKG as above Sinus tachycardia Imaging studies independently reviewed: Chest x-ray no acute process or infiltrate CT abdomen pelvis done on October 13 she has a esophageal thickening Consultations: Dr. Faye accepts patient, no need to repeat CT Treatments: Fluids antibiotics Re-evaluations: Patient continues to feel nauseous and vomiting Discussion: Patient 34-year-old male poorly controlled diabetic frequent admissions for DKA presenting today with persistent vomiting. He has a rising lactate mild leukocytosis, blood cultures are pending concern for sepsis. CT abdomen pelvis done 2 days ago does not show any source or bowel obstruction abdomen is soft. However he is persistently vomiting. Hospitalist agrees to admission Discharge Plan Departure Patient Disposition: Admitted As Inpatient Clinical Impression: Sepsis Admit Date/Time: 10/15/24 16:48 Admit Provider: Onesimo Faye V
[2024-10-15 14:32] LABS: Reflexed Lactate in 2 Hours Y
[2024-10-15] MEDS: PROCHLORPERAZINE 10 MG/2 ML VIAL IV ×2 (14:45→19:55)
[2024-10-15 15:06] LABS: Lactate 2HR (Lactic Acid Rflx) 4.3 mmol/L (0.7-2.1)
[2024-10-15] MEDS: PIPERACILLIN/TAZO 4.5 GM in SODIUM CHLORIDE 0.9% 100 ML IV (16:28)
[2024-10-15] MEDS: SODIUM CHLORIDE 0.9% 1,000 ML 150 ML IV ×4 (16:29→19:55)
--- NOTE | 2024-10-15 16:42 | DI.RAD.S_ITS ---
PROCEDURE: XR CHEST 1V INDICATIONS: sepsis TECHNIQUE: One view of the chest was acquired. COMPARISON: [facility], CT, CT ABDOMEN PELVIS W CON, 10/13/2024, 23:25. [facility], CR, XR CHEST 1V, 09/18/2024, 18:41. FINDINGS: Surgical changes and devices: None. Lungs and pleura: Lungs are clear. No pleural effusions or pneumothorax. Mediastinum: Mediastinal contours appear normal. Heart size is normal. Bones and chest wall: No suspicious bony lesions. Overlying soft tissues appear unremarkable. IMPRESSION: No focal infiltrates are seen. Dictated by: David Schultz M.D. on 10/15/2024 at 16:11 Approved by: David Schultz M.D. on 10/15/2024 at 16:11
[2024-10-15 17:05] LABS: Lactate (Lactic Acid) 1.0 mmol/L (0.7-2.1)
[2024-10-15] MEDS: METOCLOPRAMIDE HCL 5 MG TABLET PO (18:09)
--- NOTE | 2024-10-15 18:15 | PM.HP.IH.1 ---
History of Present Illness History of Present Illness Date Patient Seen: 10/15/24 Time Patient Seen: 16:30 Chief complaint: Nausea, vomiting, abdominal and back pain Narrative: 34-year-old man under the primary care care if Dr. James Jung with longstanding type 1 diabetes and multiple hospital readmissions for recurrent nausea, vomiting and ketoacidosis presents with recurrent nausea, vomiting abdominal and back pain. In the emergency department he was found to have an elevated serum lactate of 3.9, subsequent recheck 4.3, and improving to 1.0 prior to leaving the emergency department after IV fluid hydration. He was given IV Zosyn. He is admitted to the medical floor for further management and evaluation. Notably he was seen by his primary care provider on 10/13 and the following day was in the emergency department in the guest services ambassador hours on 10/14 with recurrent nausea and vomiting. A CT scan obtained at that time was unremarkable and he was discharged home. [facility] Medical History Anemia in other chronic diseases classified elsewhere Anxiety Bipolar disorder with depression Blurry vision, bilateral Cataracts, bilateral Chronic back pain Chronic lower back pain Compression fracture Diabetes type 1, uncontrolled Diabetic gastroparesis Diabetic neuropathy Erectile dysfunction Gastric ulcer Gastroparesis Generalized anxiety disorder GI bleeding Headache History of MRSA infection History of pneumonia HTN (hypertension) Hypothyroidism Insomnia Marijuana use MDD (major depressive disorder), recurrent episode, moderate Migraines Nausea and vomiting Osteoporosis Partial blindness Shoulder pain Surgical History No pertinent past surgical history Family History Mother No known health problems Father No known health problems Social History household members: family alcohol intake: never Meds Home Medications and Allergies Home Medications ?Medication ?Instructions ?Recorded ?Confirmed ?Type insulin pump syringe 3 mL 10/04/23 10/13/24 History (Extended [place]) levothyroxine 50 mcg tablet 50 mcg PO DAILY #90 tabs 10/22/23 10/13/24 Rx metoprolol succinate 50 mg 50 mg PO DAILY 10/22/23 10/13/24 History tablet,extended release 24 hr blood sugar diagnostic (True 12/24/23 10/13/24 History Metrix Glucose Test Strip) blood-glucose meter (True Metrix 12/24/23 10/13/24 History Glucose Meter) lancets 30 gauge (TRUEplus Lancets) 12/24/23 10/13/24 History blood-glucose,ground crew chief,cont 01/14/24 10/13/24 History (Dexcom G6 Soaker Hides) blood-glucose transmitter (Dexcom #1 ea 01/18/24 10/13/24 Rx G6 Transmitter device) hydroxyzine HCl 10 mg tablet 10 mg PO TID PRN anxiety #84 tabs 01/31/24 10/13/24 Rx insulin regular human 100 unit/mL See Rx Instructions .Route 02/04/24 10/13/24 Rx injection solution (Humulin R .COMPLEX #10 mL Regular U-100 Insulin) metoclopramide HCl 5 mg tablet 5 mg PO TID 04/05/24 10/13/24 History blood-glucose sensor (Dexcom G6 #3 ea 06/19/24 10/13/24 Rx Sensor device) suvorexant 20 mg tablet 20 mg PO BEDTIME PRN insomnia #30 07/12/24 10/13/24 Rx tabs sildenafil 100 mg tablet 100 mg PO DAILY PRN sexual 08/24/24 10/13/24 Rx activity #10 tabs tadalafil 5 mg tablet 5 mg PO DAILY #90 tabs 08/28/24 10/13/24 Rx fluoxetine 40 mg capsule 40 mg PO QAM #30 caps 10/10/24 10/13/24 Rx hydrocodone 5 mg-acetaminophen 325 1 tab PO TID PRN pain #90 tabs 10/13/24 10/13/24 Rx mg tablet Allergies Allergy/AdvReac Type Severity Reaction Status Date / Time aspirin (ASPIRIN) Allergy Unknown MAKES ME Verified 10/15/24 12:28 GO DEAF hydrocodone (HYDROCODONE) AdvReac Intermediate VOMITING Verified 10/15/24 12:28 ibuprofen (IBUPROFEN) AdvReac Intermediate HURTS Verified 10/15/24 12:28 KIDNEYS Review of Systems Review of Systems ROS: Yes All systems reviewed with the patient and are negative except as otherwise documented Exam Vital Signs (past 8 hours): - 10/15/24 12:22 10/15/24 12:29 10/15/24 12:30 Temperature 97.7 F Pulse Rate 114 H 114 H Respiratory Rate 16 19 Blood Pressure 162/100 H 164/100 H Pulse Oximetry 100 100 Oxygen Delivery Method Room Air Oxygen Flow Rate 10/15/24 12:30 10/15/24 13:00 10/15/24 13:30 Temperature Pulse Rate 95 H 107 H Respiratory Rate 24 21 Blood Pressure 153/72 H 177/110 H 191/119 H Pulse Oximetry 99 100 Oxygen Delivery Method Room Air Oxygen Flow Rate 10/15/24 13:30 10/15/24 14:00 10/15/24 14:00 Temperature Pulse Rate 106 H 114 H Respiratory Rate 34 H 26 H Blood Pressure 179/104 H Pulse Oximetry 99 100 Oxygen Delivery Method Oxygen Flow Rate 10/15/24 14:30 10/15/24 14:30 10/15/24 15:00 Temperature Pulse Rate 110 H Respiratory Rate 24 Blood Pressure 185/97 H 125/83 Pulse Oximetry 100 Oxygen Delivery Method Oxygen Flow Rate 10/15/24 15:00 10/15/24 15:11 10/15/24 15:30 Temperature Pulse Rate 96 H 93 H 92 H Respiratory Rate 13 16 Blood Pressure 150/95 H Pulse Oximetry 81 L 92 100 Oxygen Delivery Method Room Air Nasal Cannula Nasal Cannula Oxygen Flow Rate 2 2.0 10/15/24 16:00 10/15/24 17:07 10/15/24 18:00 Temperature 98.2 F 98.6 F Pulse Rate 91 H 92 H 91 H Respiratory Rate 14 16 16 Blood Pressure 134/93 H 119/79 140/95 H Pulse Oximetry 100 100 99 Oxygen Delivery Method Nasal Cannula Oxygen Flow Rate 1.5 Oxygen Delivery Method Nasal Cannula Oxygen Flow Rate 1.5 Narrative Exam Narrative: GENERAL: This is a thin chronically ill-appearing pale male patient, intermittently retching, appearing acutely ill. HEAD: Atraumatic. Normocephalic. No temporal or scalp tenderness. EYES: Pupils equal round and reactive. Extraocular motions intact. No scleral icterus. No injection or drainage. ENT: Mucous membranes pink and moist. Edentulous. NECK: Trachea midline. No JVD, bruits or lymphadenopathy. Supple, nontender, no meningeal signs. CARDIOVASCULAR: Regular rate and rhythm without murmurs, gallops, or rubs. RESPIRATORY: Clear to auscultation. GASTROINTESTINAL: Abdomen soft, non-tender, nondistended. EXTREMITIES: No clubbing, cyanosis, or edema. BACK: Nontender without deformity or crepitance. No flank tenderness. NEUROLOGIC: Alert, oriented, speech fluent, full upper and lower motor strength, no focal deficits evident. DERMATOLOGIC: No rashes or skin lesions. Objective ECG Impression: Sinus tachycardia 113 beats per minute, no ischemic changes Imaging Chest x-ray 10/15/2024:: Radiologist's impression: No focal infiltrates are seen. Abdomen / pelvis CT 10/13/2024:: Radiologist's impression: 1. Esophageal wall thickening of the visualized distal esophagus. Correlate for esophagitis or reflux. EGD can be obtained as clinically indicated. 2. Otherwise, no acute findings within the abdomen or pelvis. Labs 10/15/24 12:44 10/15/24 12:44 Labs: Laboratory Results - last 24 hr 10/15/24 10/15/24 10/15/24 12:42 12:44 13:27 WBC 11.5 H RBC 5.11 Hgb 13.6 Hct 40.4 L MCV 79.1 L MCH 26.5 MCHC 33.6 RDW 16.5 H Plt Count 315 Neut % (Auto) 79.0 H Lymph % (Auto) 15.[address] [place] % (Auto) 5.2 Eos % (Auto) 0.1 L Baso % (Auto) 0.5 Neut # (Auto) 9100 H Lymph # (Auto) 1700 [place] # (Auto) 600 Eos # (Auto) 0 Baso # (Auto) 100 RBC Morphology See below Anisocytosis 1+ H Microcytosis 1+ H VBG pH 7.55 H VBG pCO2 25.2 L VBG pO2 42 VBG HCO3 22 L VBG Total CO2 21 L VBG O2 Saturation 85 H VBG Base Excess 1.2 Sodium 137 Potassium 3.7 Chloride 98 Carbon Dioxide 20 L BUN 19 Creatinine 1.26 H Estimated GFR > 60 BUN/Creatinine Ratio 15.1 Glucose 132 H POC Whole Bld Glucose 140 H Lactate 3.9 H Calcium 10.3 H Total Bilirubin 1.0 AST 41 ALT 32 Alkaline Phosphatase 90 Total Protein 8.7 H Albumin 5.0 Globulin 3.7 Albumin/Globulin Ratio 1.4 Lipase 35 Ketones 1.47 H 10/15/24 10/15/24 14:45 16:39 WBC RBC Hgb Hct MCV MCH MCHC RDW Plt Count Neut % (Auto) Lymph % (Auto) [place] % (Auto) Eos % (Auto) Baso % (Auto) Neut # (Auto) Lymph # (Auto) [place] # (Auto) Eos # (Auto) Baso # (Auto) RBC Morphology Anisocytosis Microcytosis VBG pH VBG pCO2 VBG pO2 VBG HCO3 VBG Total CO2 VBG O2 Saturation VBG Base Excess Sodium Potassium Chloride Carbon Dioxide BUN Creatinine Estimated GFR BUN/Creatinine Ratio Glucose POC Whole Bld Glucose Lactate 4.3 H* 1.0 Calcium Total Bilirubin AST ALT Alkaline Phosphatase Total Protein Albumin Globulin Albumin/Globulin Ratio Lipase Ketones Assessment & Plan Assessment & Plan narrative: 1. Recurrent nausea, vomiting and lactic acidosis, present on admission and active. - lactic acidosis resolved prior to leaving the emergency department with fluid resuscitation - etiology unclear. Check urinalysis. - hold off on further antibiotics unless evidence of infection - IV hydration 2. Type 1 diabetes - No evidence of diabetic ketoacidosis 3. Gastroparesis and vomiting, present on admission and active. 4. Depression and possibe bipolar disorder, present on admission and active. - Prozac, hydroxyzine, lorazepam 5. Hypothyroidism, present on admission and active. - levothyroxine 6. GERD, present on admission and active. - recent minor hematemesis from gastritis - PPI bid 7. HTN, present on admission and active. - Toprol XL 50 mg daily on hold, borderline hypotensive on admission - CKD stage 3B, at baseline 8. CKD, present on admission and active. PLAN: - admit as observation - IV hydration - continue PPI therapy b.i.d. HANS: 10/16 DVT prophylaxis - SCDs/lovenox Quality MIPS - Admit I confirm the patient?s Advance Care Plan is present, Code status is documented, Surrogate decision maker is in patient?s record [If Yes, STOP here]: Yes [facility] - Meds 'Current medications' to include all prescriptions, [id number] products, herbals, cannabis/cannabidiol products, and vitamin/mineral/dietary (nutritional) supplements. I have utilized all available resources to obtain, update, or review the patient?s current medications. [If Yes, STOP here]: Yes PROFEE Management Specialist Document charge(s): No Charge Codes Initial inpatient/observation care: 24309
[2024-10-15 18:33] LABS: Appearance Urine UA CLEAR; Bilirubin Urine UA NEGATIVE (NEGATIVE); Color Urine UA YELLOW; Glucose Urine UA NEGATIVE (Negative); Ketones Urine UA 2+ (NEGATIVE); Leukocyte Esterase Urine UA NEGATIVE (NEGATIVE); Nitrite Urine UA NEGATIVE (Negative); Occult Blood Urine UA TRACE-INTACT (Negative); Protein Urine UA 2+ (Negative); Specific Gravity Urine UA 1.015 (1.000-1.035); Urobilinogen Urine UA 0.2 E.U./dL (0.2); pH Urine UA 7.0 (4.5-8.0)
--- NOTE | 2024-10-15 19:20 | PC.NURSE ---
Patient arrives to Room 220 at 1750 this evening. He is A&OX4. Admission assessment completed. Patient states he hasn't been able to eat for the past three days. He is able to void and urine sample sent. Patient has continuous insulin pump and per protocol he signs agreement and to keep insulin log at bedside. This evening his BG is checked and reads 60 despite having chicken broth and x2 apple juices. Noc shift RN arrived, and patient agrees to disconnect insulin pump as BG low. Patient is gettin IVF NS at 150 ml/hr. Continuous monitoring.
--- NOTE | 2024-10-15 19:58 | PC.NURSE ---
Pt blood sugar droped to 60, pt had apple juice. Pt was encouraged to turn his insulin pump off which he did. pt blood sugar now up to 150, pt back to NS at 150.
[2024-10-16] VITALS (11 sets, daily range): BP systolic 90–173; BP diastolic 35–120; PULSE 72–84; RESP 15–20; TEMP 36.1–36.8; O2SAT 97–98
--- NOTE | 2024-10-16 02:00 | PC.NURSE ---
Received report from Ambreen Hooker RN
[2024-10-16] MEDS: SODIUM CHLORIDE 0.9% 1,000 ML 150 ML IV ×3 (02:23→16:20)
[2024-10-16] MEDS: PROCHLORPERAZINE 10 MG/2 ML VIAL IV ×4 (03:43→23:48)
[2024-10-16] MEDS: LEVOTHYROXINE 50 MCG TABLET PO (06:47)
[2024-10-16 06:56] LABS: Add Manual Diff / Slide Review NO; Hematocrit 32.3 % (41-53); Hemoglobin 10.7 g/dL (13.5-17.5); Lymphocytes Absolute Auto 1500 /uL (1100-4500); Mean Corpuscular HGB Conc 33.2 % (30-36); Mean Corpuscular Hemoglobin 26.7 PG (26-34); Mean Corpuscular Volume 80.3 fL (80-100); Platelet Count 203 X10^3/uL (150-400)
[2024-10-16 07:06] LABS: Blood Urea Nitrogen 12 mg/dL (9-20); Calcium 7.4 mg/dL (8.4-10.2); Carbon Dioxide 25 mmol/L (22-32); Chloride 105 mmol/L (98-107); Estimated Glomerular Filt Rate > 60 mL/min (>60); Glucose 122 mg/dL (70-99); HEMOLYSIS < 15 (0-50); Potassium 3.3 mmol/L (3.4-5.1); Sodium 135 mmol/L (137-145)
[2024-10-16] MEDS: METOCLOPRAMIDE HCL 5 MG TABLET PO ×3 (08:56→16:19)
[2024-10-16] MEDS: METOPROLOL ER 50 MG TABLET PO (09:02)
[2024-10-16] MEDS: POTASSIUM CHLORIDE 20 MEQ TAB 40 MEQ PO ×2 (11:08→18:00)
--- NOTE | 2024-10-16 13:36 | CM.DANOTE ---
Patient is a 34 yo male, resident of [place], complex type 1 diabetic on insulin pump with a history of DKA, well known to this institution due to multiple ER visits and hospital admissions since patient's move from out of [facility] to [place] approx 5 or 6 years ago. Pt's last admission was twice last month in Sep 2024 and was able to discharge home. EMR was reviewed. PCP: James Jung Payer: Mickey/BIRDIE Reviewed chart, patient appears to be following up consistently with outpatient providers including primary physician Dr Jung, Outpt Behavioral health/Psych with Dr. Mccracken at [facility], and hx of Dr Hannah at [facility] and hx of Orthopedic team (osteo, foot) [facility] and recently has been seeing Dr. Hsieh at [facility]. Met w/patient bedside briefly as pt with blanket over his head and confirms he continues to have nausea and feel poorly. Pt confirms that his information is the same since his last admit a couple weeks ago. Patient continues to live with his grandmother in [place], mom lives in [place]. Patient has [employer] caregivers M/W/F from [id number] and his [employer] Snake Charmer is Christy Bartlett [phone]. SW faxed H&P to [employer] to review. Patient does not drive and typically his grandmother provides transport when needed. Pt does not anticipate further needs at discharge at this time but states he does not feel stable for discharge yet today. Social work team will plan to follow clinical course closely in case any DC needs or concerns arise. GORDON [place] Discharge Planning/Care Management CM Discharge Assessment Start: 10/15/24 16:49 Freq: Status: Active Protocol: Document 10/16/24 13:20 BF (Rec: 10/16/24 13:35 BF [id number]) Discharge Planning Assessment Assigned Discharge GORDON Watson Digital Account Coordinator Provider James Jung, [facility] Insurance Mickey DPOA/Assigned informally mother Marilee Designee Name Contact Information [phone] Advance Directives? No Advance Directives No on File History Provided By Patient,Medical Record Has Patient been Yes admitted in last 30 days? Comment Admitted twice last month Sep 2024 and discharged home Prior Living House Arrangements Household Members family Comment Lives with grandma Meghan Type of Relies on Others transporation used prior to admit Independent with ADL Yes: somewhat, has [employer] CG 3x week 's Is patient alert and Yes oriented? Needs Assistance Managing Medications,Home Chores / Shopping With Caregiver for No Another Comment Pt has an insulin pump and CGM. Comment See narrative. Discharge Plan Home Transportation Family vs BIRDIE transport Arrangement Referrals Initiated None needed Whiteboard Updated Yes in Patient Room with name and ext. # of Merchandising Team Lead Review Status In Process Please Provide Date 10/16/24 Initial DC Assessment Was Performed Next Review Type Continued Stay Review
--- NOTE | 2024-10-16 14:17 | PM.PN.1 ---
Subjective Subjective Interval history: 34-year-old man under the primary care care if Dr. James Jung with longstanding type 1 diabetes and multiple hospital readmissions for recurrent nausea, vomiting and ketoacidosis presents with recurrent nausea, vomiting abdominal and back pain. In the emergency department he was found to have an elevated serum lactate of 3.9, subsequent recheck 4.3, and improving to 1.0 prior to leaving the emergency department after IV fluid hydration. He was given IV Zosyn. He is admitted to the medical floor for further management and evaluation. Notably he was seen by his primary care provider on 10/13 and the following day was in the emergency department in the early childhood education coordinator hours on 10/14 with recurrent nausea and vomiting. A CT scan obtained at that time was unremarkable and he was discharged home. 10/16: S: He still feels nauseated. No diarrhea, good bowel movements recently. No clear pump dysfunction. Did have hypoglycemia today. His pump has been set on 0.8 units/hour basal rate. We will turn this off for tonight as he has really not eating. Exam Vital Signs (past 8 hours): - 10/16/24 08:00 10/16/24 11:57 10/16/24 12:00 Temperature 97.1 F L 97.8 F Pulse Rate 75 83 78 Respiratory Rate 15 16 Blood Pressure 117/81 120/68 154/102 H Pulse Oximetry 97 98 Oxygen Flow Rate 0 0 Oxygen Delivery Method Nasal Cannula Oxygen Flow Rate 0 Narrative Exam Narrative: NAD, alert and oriented. Fluent speech. He appears cachectic and chronically ill. Lungs are clear, normal rate and effort. Heart is regular, no murmur gallop or rub. Abdomen is soft, non distended. Extremities are free of edema. Objective ECG Impression: Sinus tachycardia 113 beats per minute, no ischemic changes Imaging Multiple studies:: Radiologist's impression: Chest x-ray 10/15/2024:: Radiologist's impression: No focal infiltrates are seen. Abdomen / pelvis CT 10/13/2024:: Radiologist's impression: 1. Esophageal wall thickening of the visualized distal esophagus. Correlate for esophagitis or reflux. EGD can be obtained as clinically indicated. 2. Otherwise, no acute findings within the abdomen or pelvis. Labs 10/16/24 06:30 10/16/24 06:30 Labs: Laboratory Results - last 24 hr 10/15/24 10/15/24 10/15/24 14:45 16:39 18:25 WBC RBC Hgb Hct MCV MCH MCHC RDW Plt Count Neut % (Auto) Lymph % (Auto) Bertie % (Auto) Eos % (Auto) Baso % (Auto) Neut # (Auto) Lymph # (Auto) Bertie # (Auto) Eos # (Auto) Baso # (Auto) Sodium Potassium Chloride Carbon Dioxide BUN Creatinine Estimated GFR BUN/Creatinine Ratio Glucose POC Whole Bld Glucose Lactate 4.3 H* 1.0 Calcium Urine Color Yellow Urine Appearance Clear Urine pH 7.0 Ur Specific Nelson 1.015 Urine Protein 2+ H Urine Glucose (UA) Negative Urine Ketones 2+ H Urine Occult Blood Trace-intact Urine Nitrate Negative Urine Bilirubin Negative Urine Urobilinogen 0.2 Ur Leukocyte Esterase Negative Urine RBC 0-1/hpf Urine WBC 0-1/hpf Ur Squamous Epith Cells None seen Urine Bacteria None seen Vol Urine Centrifuged 10ml (spun) 10/15/24 10/15/24 10/15/24 19:16 19:40 21:42 WBC RBC Hgb Hct MCV MCH MCHC RDW Plt Count Neut % (Auto) Lymph % (Auto) Bertie % (Auto) Eos % (Auto) Baso % (Auto) Neut # (Auto) Lymph # (Auto) Bertie # (Auto) Eos # (Auto) Baso # (Auto) Sodium Potassium Chloride Carbon Dioxide BUN Creatinine Estimated GFR BUN/Creatinine Ratio Glucose POC Whole Bld Glucose 60 L 127 H 252 H D Lactate Calcium Urine Color Urine Appearance Urine pH Ur Specific Nelson Urine Protein Urine Glucose (UA) Urine Ketones Urine Occult Blood Urine Nitrate Urine Bilirubin Urine Urobilinogen Ur Leukocyte Esterase Urine RBC Urine WBC Ur Squamous Epith Cells Urine Bacteria Vol Urine Centrifuged 10/16/24 10/16/24 10/16/24 02:09 06:30 10:35 WBC 6.4 RBC 4.02 L Hgb 10.7 L Hct 32.3 L MCV 80.3 MCH 26.7 MCHC 33.2 RDW 15.8 H Plt Count 203 Neut % (Auto) 63.0 Lymph % (Auto) 23.5 L Bertie % (Auto) 11.5 Eos % (Auto) 1.2 L Baso % (Auto) 0.8 Neut # (Auto) 4000 Lymph # (Auto) 1500 Bertie # (Auto) 700 Eos # (Auto) 100 Baso # (Auto) 100 Sodium 135 L Potassium 3.3 L Chloride 105 Carbon Dioxide 25 BUN 12 Creatinine 1.01 Estimated GFR > 60 BUN/Creatinine Ratio 11.9 Glucose 122 H POC Whole Bld Glucose 244 H 46 L D Lactate Calcium 7.4 L Urine Color Urine Appearance Urine pH Ur Specific Nelson Urine Protein Urine Glucose (UA) Urine Ketones Urine Occult Blood Urine Nitrate Urine Bilirubin Urine Urobilinogen Ur Leukocyte Esterase Urine RBC Urine WBC Ur Squamous Epith Cells Urine Bacteria Vol Urine Centrifuged 10/16/24 11:07 WBC RBC Hgb Hct MCV MCH MCHC RDW Plt Count Neut % (Auto) Lymph % (Auto) Bertie % (Auto) Eos % (Auto) Baso % (Auto) Neut # (Auto) Lymph # (Auto) Bertie # (Auto) Eos # (Auto) Baso # (Auto) Sodium Potassium Chloride Carbon Dioxide BUN Creatinine Estimated GFR BUN/Creatinine Ratio Glucose POC Whole Bld Glucose 106 H Lactate Calcium Urine Color Urine Appearance Urine pH Ur Specific Nelson Urine Protein Urine Glucose (UA) Urine Ketones Urine Occult Blood Urine Nitrate Urine Bilirubin Urine Urobilinogen Ur Leukocyte Esterase Urine RBC Urine WBC Ur Squamous Epith Cells Urine Bacteria Vol Urine Centrifuged [facility] Medical History Anemia in other chronic diseases classified elsewhere Erectile dysfunction Insomnia Anxiety Migraines Headache Shoulder pain Osteoporosis Cataracts, bilateral Partial blindness GI bleeding Gastroparesis Gastric ulcer Chronic back pain MDD (major depressive disorder), recurrent episode, moderate Generalized anxiety disorder Compression fracture Chronic lower back pain HTN (hypertension) Hypothyroidism Marijuana use History of MRSA infection History of pneumonia Blurry vision, bilateral Diabetic neuropathy Bipolar disorder with depression Nausea and vomiting Diabetes type 1, uncontrolled Diabetic gastroparesis Surgical History No pertinent past surgical history Family History Mother No known health problems Father No known health problems Social History household members: family alcohol intake: never Assessment & Plan Assessment & Plan narrative: 1. Recurrent nausea, vomiting and lactic acidosis, present on admission and active. Very slow improvement overnight. - lactic acidosis resolved prior to leaving the emergency department with fluid resuscitation - etiology unclear. Check urinalysis. 2. Type 1 diabetes, active. - No evidence of diabetic ketoacidosis 3. Gastroparesis and vomiting, present on admission and improving. 4. Depression and possibe bipolar disorder, present on admission and active. - Prozac, hydroxyzine, lorazepam 5. Hypothyroidism, present on admission and active. - levothyroxine 6. GERD, present on admission and active. - recent minor hematemesis from gastritis - PPI bid 7. HTN, present on admission and active. - Toprol XL 50 mg daily on hold, borderline hypotensive on admission - CKD stage 3B, at baseline 8. CKD, present on admission and active. PLAN: - admit as observation - IV hydration - continue PPI therapy b.i.d. - turned insulin pump off due to hypoglycemia today. We will use subcutaneous correctional insulin overnight. He was not stable for discharge requires another night of care. He was not able to eat, we will use sliding scale insulin overnight. Time-Based Coding :: [TOTAL MINUTES] spent with patient and on the chart (including review of chart, obtaining history, exam, reviewing outside data, placing orders, documenting exam and treatment plan, and counseling patient) on [DATE]. Quality VTE Deep Vein Thrombosis/Pulmonary Embolism Present on Admission: No
[2024-10-16] MEDS: hydrALAZINE 20 MG/ML VIAL 10 MG IV (19:01)
[2024-10-16] MEDS: SODIUM CHLORIDE 0.9% 500 ML 999 ML IV (20:50)
[2024-10-16] MEDS: INSULIN LISPRO 100 UNIT/ML 3ML VIAL SUBCUT (21:42)
[2024-10-16] MEDS: SODIUM CHLORIDE 0.9% 1,000 ML 100 ML IV (23:33)
[2024-10-17 02:43] VITALS: BP 103/69; PULSE 82; RESP 16; TEMP 36.2; O2SAT 99
[2024-10-17] MEDS: LEVOTHYROXINE 50 MCG TABLET PO (06:19)
[2024-10-17] MEDS: PANTOPRAZOLE DR 40 MG TABLET PO ×2 (06:19→20:29)
[2024-10-17 06:49] LABS: Blood Urea Nitrogen 10 mg/dL (9-20); Calcium 7.1 mg/dL (8.4-10.2); Carbon Dioxide 15 mmol/L (22-32); Chloride 104 mmol/L (98-107); Estimated Glomerular Filt Rate > 60 mL/min (>60); Glucose 246 mg/dL (70-99); HEMOLYSIS 18 (0-50); Potassium 4.6 mmol/L (3.4-5.1); Sodium 132 mmol/L (137-145)
[2024-10-17 08:30] VITALS: BP 130/85; PULSE 84; RESP 18; TEMP 36.4; O2SAT 98
[2024-10-17 09:15] VITALS: BP 138/80
[2024-10-17] MEDS: PROCHLORPERAZINE 10 MG/2 ML VIAL IV ×2 (09:15→19:32)
[2024-10-17] MEDS: SODIUM CHLORIDE 0.9% 1,000 ML 100 ML IV ×2 (09:16→19:43)
[2024-10-17] MEDS: INSULIN LISPRO 100 UNIT/ML 3ML VIAL SUBCUT ×4 (09:21→20:31)
[2024-10-17] MEDS: MAG HYDROX/ALUM/SIMETH 30 ML UDC PO (13:46)
--- NOTE | 2024-10-17 14:55 | PM.PN.1 ---
Subjective Subjective Interval history: Summary: He was admitted with recurrent nausea and vomiting. The patient was not in ketoacidosis. He has been treated symptomatically for the last day and a half with slow improvement. S: He was nauseated this morning, but is improved this afternoon. He would like to try a sandwich this evening. O: VS below. NAD, alert and oriented. Fluent speech. Chronically ill in appearance, somewhat withdrawn, and soft-spoken. Lungs are clear, normal rate and effort. Heart is regular, no murmur gallop or rub. Abdomen is soft, non distended. Extremities are free of edema. A/P: 1. Intractable nausea and vomiting, present on admission and now improving. 2. Type 1 diabetes, relatively stable. PLAN: -his insulin pump has been off for about 24 hours because of 1 episode of hypoglycemia. He was being covered with sliding scale insulin. -he was had symptomatic treatment with antiemetics and analgesics. He was now improving. -he needs another night in the hospital to monitor his ability to advance diet. Exam Vital Signs (past 8 hours): - 10/17/24 08:30 10/17/24 09:15 Temperature 97.5 F L Pulse Rate 84 Respiratory Rate 18 Blood Pressure 130/85 138/80 Pulse Oximetry 98 Oxygen Flow Rate 0 Oxygen Delivery Method Nasal Cannula Oxygen Flow Rate 0 Objective Labs 10/16/24 06:30 10/17/24 06:10 Labs: Laboratory Results - last 24 hr 10/16/24 10/16/24 10/16/24 14:14 16:05 18:10 Sodium Potassium Chloride Carbon Dioxide BUN Creatinine Estimated GFR BUN/Creatinine Ratio Glucose POC Whole Bld Glucose 205 H 215 H 227 H Calcium 10/16/24 10/17/24 10/17/24 21:41 02:40 06:10 Sodium 132 L Potassium 4.6 D Chloride 104 Carbon Dioxide 15 L BUN 10 Creatinine 0.94 Estimated GFR > 60 BUN/Creatinine Ratio 10.6 Glucose 246 H D POC Whole Bld Glucose 276 H 215 H Calcium 7.1 L 10/17/24 10/17/24 08:20 11:42 Sodium Potassium Chloride Carbon Dioxide BUN Creatinine Estimated GFR BUN/Creatinine Ratio Glucose POC Whole Bld Glucose 274 H 244 H Calcium PFSH Medical History Anemia in other chronic diseases classified elsewhere Erectile dysfunction Insomnia Anxiety Migraines Headache Shoulder pain Osteoporosis Cataracts, bilateral Partial blindness GI bleeding Gastroparesis Gastric ulcer Chronic back pain MDD (major depressive disorder), recurrent episode, moderate Generalized anxiety disorder Compression fracture Chronic lower back pain HTN (hypertension) Hypothyroidism Marijuana use History of MRSA infection History of pneumonia Blurry vision, bilateral Diabetic neuropathy Bipolar disorder with depression Nausea and vomiting Diabetes type 1, uncontrolled Diabetic gastroparesis Surgical History No pertinent past surgical history Family History Mother No known health problems Father No known health problems Social History household members: family alcohol intake: never Assessment & Plan Time-Based Coding :: [TOTAL MINUTES] spent with patient and on the chart (including review of chart, obtaining history, exam, reviewing outside data, placing orders, documenting exam and treatment plan, and counseling patient) on [DATE]. Quality VTE Deep Vein Thrombosis/Pulmonary Embolism Present on Admission: No
[2024-10-17] MEDS: METOCLOPRAMIDE HCL 5 MG TABLET PO (17:12)
[2024-10-17 19:00] VITALS: BP 160/104; PULSE 86; RESP 16; TEMP 36.8; O2SAT 100
[2024-10-17 19:32] VITALS: BP 160/104; PULSE 89
[2024-10-18] MEDS: PANTOPRAZOLE DR 40 MG TABLET PO ×2 (06:37→21:00)
[2024-10-18] MEDS: LEVOTHYROXINE 50 MCG TABLET PO (06:37)
[2024-10-18] MEDS: SODIUM CHLORIDE 0.9% 1,000 ML 100 ML IV (06:37)
[2024-10-18] MEDS: METOCLOPRAMIDE HCL 5 MG TABLET PO (07:35)
[2024-10-18 07:48] VITALS: BP 127/88; PULSE 86; RESP 18; TEMP 36.8; O2SAT 99
[2024-10-18 08:17] LABS: Add Manual Diff / Slide Review NO; Hematocrit 35.3 % (41-53); Hemoglobin 11.6 g/dL (13.5-17.5); Lymphocytes Absolute Auto 1700 /uL (1100-4500); Mean Corpuscular HGB Conc 32.8 % (30-36); Mean Corpuscular Hemoglobin 26.6 PG (26-34); Mean Corpuscular Volume 81.2 fL (80-100); Platelet Count 204 X10^3/uL (150-400)
[2024-10-18 08:36] LABS: Blood Urea Nitrogen 10 mg/dL (9-20); Calcium 7.3 mg/dL (8.4-10.2); Carbon Dioxide 16 mmol/L (22-32); Chloride 102 mmol/L (98-107); Estimated Glomerular Filt Rate > 60 mL/min (>60); Glucose 253 mg/dL (70-99); HEMOLYSIS 20 (0-50); Potassium 4.2 mmol/L (3.4-5.1); Sodium 131 mmol/L (137-145)
[2024-10-18] MEDS: METOPROLOL ER 50 MG TABLET PO (09:01)
[2024-10-18] MEDS: INSULIN LISPRO 100 UNIT/ML 3ML VIAL SUBCUT ×4 (09:02→20:58)
[2024-10-18] MEDS: PROCHLORPERAZINE 10 MG/2 ML VIAL IV ×3 (09:02→21:01)
[2024-10-18] MEDS: SODIUM CHLORIDE 0.9% FLUSH 10 ML IV ×2 (09:02→21:01)
[2024-10-18] MEDS: SUCRALFATE 1 GM/10 ML ORAL SUSP PO ×2 (11:33→17:18)
[2024-10-18] MEDS: DEXTROSE 5%-0.9% NS 1,000 ML 84 ML IV (11:33)
--- NOTE | 2024-10-18 13:22 | CM.DPC ---
DCP Cont. Reviewed EMR and team rounds for pt's medical status and updates. Per Hospitalist, we are converting him to inpt status due to need to advance diet. Anticipate d/c home tomorrow.
--- NOTE | 2024-10-18 13:30 | P.PN_ITS ---
Subjective Subjective Date Patient Seen: 10/18/24 Interval history: Chief complaint: Recurrent episode of diabetic gastroparesis with intractable nausea and vomiting severe volume depletion with lactic acidosis (3.9) inability to keep liquids down History of present illness: 10/15: 4-year-old man under the primary care care if Dr. James Jung with longstanding type 1 diabetes and multiple hospital readmissions for recurrent nausea, vomiting and ketoacidosis presents with recurrent nausea, vomiting abdominal and back pain. In the emergency department he was found to have an elevated serum lactate of 3.9, subsequent recheck 4.3, and improving to 1.0 prior to leaving the emergency department after IV fluid hydration. He was given IV Zosyn. He is admitted to the medical floor for further management and evaluation. Notably he was seen by his primary care provider on 10/13 and the following day was in the emergency department in the facility manager histology hours on 10/14 with recurrent nausea and vomiting. A CT scan obtained at that time was unremarkable and he was discharged home. Hospital course: 10/16-10/17: Continued nausea and vomiting unable to keep liquids and solids down dependent on IV fluids for hydration and prevention of recurrent lactic acidosis patient turned off his insulin pump 10/18: Patient continues to have nausea unable to keep even sips of liquids down at this time patient appears very uncomfortable on examination today started low-dose of Lantus 15 units to prevent ketosis and IV dextrose in normal saline for metabolic support. Reglan is not resulting in inability to drink liquids we will switch to scheduled Compazine at this time per discussion with pharmacy Review of systems: No chest pain palpitations No fever or chills No urinary symptom No neuro symptoms Physical exam: Uncomfortable ill-appearing chronically ill young male HEENT: Edentulous Heart sounds distant no murmurs Lungs clear Abdomen is diffusely tender scant bowel sounds present Extremities no edema Assessment & Plan narrative: 1. Recurrent nausea, vomiting and lactic acidosis, present on admission and active. - lactic acidosis resolved but dependent on intravenous fluid resuscitation - etiology unclear. Check urinalysis. - hold off on further antibiotics unless evidence of infection - IV hydration 2. Type 1 diabetes -continuous IV dextrose and basal bolus insulin to prevent slipping into DKA 3. Gastroparesis and vomiting, present on admission and active. -recurrent problem different trial of antiemetic 4. Depression and possibe bipolar disorder, present on admission and active. - Prozac, hydroxyzine, lorazepam 5. Hypothyroidism, present on admission and active. - levothyroxine 6. GERD, present on admission and active. - recent minor hematemesis from gastritis - PPI bid 7. HTN, present on admission and active. - Toprol XL 50 mg daily on hold, borderline hypotensive on admission - CKD stage 3B, at baseline 8. CKD, present on admission and active. PLAN: Continue as admission - IV hydration - continue PPI therapy b.i.d. -sucralfate Disposition: * Inpatient * Anticipate 2 more days until patient can sustain carbohydrate intake orally DVT prophylaxis - * SCDs/lovenox 35 minutes were involved in evaluation of this patient including [id number] evaluation in the patient's presence physical examination review of previous records and objective laboratory and imaging data and discussion with care planning team Exam Vital Signs (past 8 hours): - 10/18/24 07:48 Temperature 98.2 F Pulse Rate 86 Respiratory Rate 18 Blood Pressure 127/88 Pulse Oximetry 99 Oxygen Delivery Method Room Air Oxygen Flow Rate 0 Objective Labs 10/18/24 08:02 10/18/24 08:02 Labs: Laboratory Results - last 24 hr 10/17/24 10/17/24 10/18/24 16:51 19:48 07:38 WBC RBC Hgb Hct MCV MCH MCHC RDW Plt Count Neut % (Auto) Lymph % (Auto) [place] % (Auto) Eos % (Auto) Baso % (Auto) Neut # (Auto) Lymph # (Auto) [place] # (Auto) Eos # (Auto) Baso # (Auto) Sodium Potassium Chloride Carbon Dioxide BUN Creatinine Estimated GFR BUN/Creatinine Ratio Glucose POC Whole Bld Glucose 174 H 253 H 266 H Calcium 10/18/24 10/18/24 08:02 11:25 WBC 6.6 RBC 4.35 L Hgb 11.6 L Hct 35.3 L MCV 81.2 MCH 26.6 MCHC 32.8 RDW 14.6 Plt Count 204 Neut % (Auto) 64.2 Lymph % (Auto) 25.2 [place] % (Auto) 8.2 Eos % (Auto) 1.4 L Baso % (Auto) 1.0 Neut # (Auto) 4200 Lymph # (Auto) 1700 [place] # (Auto) 500 Eos # (Auto) 100 Baso # (Auto) 100 Sodium 131 L Potassium 4.2 Chloride 102 Carbon Dioxide 16 L BUN 10 Creatinine 0.89 Estimated GFR > 60 BUN/Creatinine Ratio 11.2 Glucose 253 H POC Whole Bld Glucose 232 H Calcium 7.3 L PFSH Medical History Anemia in other chronic diseases classified elsewhere Erectile dysfunction Insomnia Anxiety Migraines Headache Shoulder pain Osteoporosis Cataracts, bilateral Partial blindness GI bleeding Gastroparesis Gastric ulcer Chronic back pain MDD (major depressive disorder), recurrent episode, moderate Generalized anxiety disorder Compression fracture Chronic lower back pain HTN (hypertension) Hypothyroidism Marijuana use History of MRSA infection History of pneumonia Blurry vision, bilateral Diabetic neuropathy Bipolar disorder with depression Nausea and vomiting Diabetes type 1, uncontrolled Diabetic gastroparesis Surgical History No pertinent past surgical history Family History Mother No known health problems Father No known health problems Social History household members: family alcohol intake: never Assessment & Plan Time-Based Coding :: [TOTAL MINUTES] spent with patient and on the chart (including review of chart, obtaining history, exam, reviewing outside data, placing orders, documenting exam and treatment plan, and counseling patient) on [DATE]. Quality VTE Deep Vein Thrombosis/Pulmonary Embolism Present on Admission: No
[2024-10-18 19:00] VITALS: BP 149/98; PULSE 79; RESP 16; TEMP 36.8; O2SAT 99
[2024-10-18] MEDS: INSULIN GLARGINE 100 UNIT/ML 3ML PEN 15 UNIT SUBCUT (20:57)
[2024-10-18] MEDS: ZOLPIDEM 5 MG TABLET PO (21:51)
[2024-10-18] MEDS: SODIUM CHLORIDE 0.9% 1,000 ML 84 ML IV (23:33)
[2024-10-18] MEDS: diphenhydrAMINE 25 MG TABLET 50 MG PO (23:33)
[2024-10-19] MEDS: SUCRALFATE 1 GM/10 ML ORAL SUSP PO (06:31)
[2024-10-19] MEDS: PROCHLORPERAZINE 10 MG/2 ML VIAL IV (06:31)
[2024-10-19 07:00] VITALS: BP 169/113; PULSE 80; RESP 18; TEMP 36.7; O2SAT 99
[2024-10-19] MEDS: INSULIN LISPRO 100 UNIT/ML 3ML VIAL SUBCUT (08:05)
--- NOTE | 2024-10-19 08:07 | PM.DS.1 ---
History of Present Illness History of Present Illness Date Patient Seen: 10/19/24 Chief complaint: Nausea, vomiting, abdominal and back pain Narrative: Chief complaint: Recurrent episode of diabetic gastroparesis with intractable nausea and vomiting severe volume depletion with lactic acidosis (3.9) inability to keep liquids down History of present illness: 10/15: 4-year-old man under the primary care care if Dr. James Jung with longstanding type 1 diabetes and multiple hospital readmissions for recurrent nausea, vomiting and ketoacidosis presents with recurrent nausea, vomiting abdominal and back pain. In the emergency department he was found to have an elevated serum lactate of 3.9, subsequent recheck 4.3, and improving to 1.0 prior to leaving the emergency department after IV fluid hydration. He was given IV Zosyn. He is admitted to the medical floor for further management and evaluation. Notably he was seen by his primary care provider on 10/13 and the following day was in the emergency department in the salesperson pets and pet supplies hours on 10/14 with recurrent nausea and vomiting. A CT scan obtained at that time was unremarkable and he was discharged home. Hospital course: 10/16-10/17: Continued nausea and vomiting unable to keep liquids and solids down dependent on IV fluids for hydration and prevention of recurrent lactic acidosis patient turned off his insulin pump 10/18: Patient continues to have nausea unable to keep even sips of liquids down at this time patient appears very uncomfortable on examination today started low-dose of Lantus 15 units to prevent ketosis and IV dextrose in normal saline for metabolic support. Reglan is not resulting in inability to drink liquids we will switch to scheduled Compazine at this time per discussion with pharmacy 10/19: No further nausea little heartburn this morning tolerating food glucose 232-289 patient will turn on his insulin pump Review of systems: No chest pain palpitations No fever or chills No urinary symptom No neuro symptoms Physical exam: Uncomfortable ill-appearing chronically ill young male HEENT: Edentulous Heart sounds distant no murmurs Lungs clear Abdomen is diffusely tender scant bowel sounds present Extremities no edema Assessment & Plan narrative: 1. Recurrent nausea, vomiting and lactic acidosis, present on admission and active. Resolved and better controlled with Compazine Reglan discontinued - lactic acidosis resolved but dependent on intravenous fluid resuscitation resolved - etiology unclear. Check urinalysis. - hold off on further antibiotics unless evidence of infection - IV hydration 2. Type 1 diabetes -continuous IV dextrose and basal bolus insulin to prevent slipping into DKA 3. Gastroparesis and vomiting, present on admission and active. -recurrent problem different trial of antiemetic 4. Depression and possibe bipolar disorder, present on admission and active. - Prozac, hydroxyzine, lorazepam 5. Hypothyroidism, present on admission and active. - levothyroxine 6. GERD, present on admission and active. Carafate suspension - recent minor hematemesis from gastritis - PPI bid 7. HTN, present on admission and active. - Toprol XL 50 mg daily on hold, borderline hypotensive on admission - CKD stage 3B, at baseline 8. CKD, present on admission and active. PLAN: Continue as admission - IV hydration - continue PPI therapy b.i.d. -sucralfate Disposition: Discharge to home 35 minutes were involved in evaluation of this patient including [id number] evaluation in the patient's presence physical examination review of previous records and objective laboratory and imaging data and discussion with care planning team Discharge Providers Provider Date of admission: 10/18/24 09:36 Discharge Date: 10/19/24 Primary care physician: James Jung DO Discharge provider: Vinod Glasgow MD Exam Vital Signs (past 8 hours): Oxygen Delivery Method Room Air Oxygen Flow Rate 0 Objective Labs 10/18/24 08:02 10/18/24 08:02 Labs: Laboratory Results - last 24 hr 10/18/24 10/18/24 10/18/24 08:02 11:25 16:29 WBC 6.6 RBC 4.35 L Hgb 11.6 L Hct 35.3 L MCV 81.2 MCH 26.6 MCHC 32.8 RDW 14.6 Plt Count 204 Neut % (Auto) 64.2 Lymph % (Auto) 25.2 [place] % (Auto) 8.2 Eos % (Auto) 1.4 L Baso % (Auto) 1.0 Neut # (Auto) 4200 Lymph # (Auto) 1700 [place] # (Auto) 500 Eos # (Auto) 100 Baso # (Auto) 100 Sodium 131 L Potassium 4.2 Chloride 102 Carbon Dioxide 16 L BUN 10 Creatinine 0.89 Estimated GFR > 60 BUN/Creatinine Ratio 11.2 Glucose 253 H POC Whole Bld Glucose 232 H 224 H Calcium 7.3 L 10/18/24 10/19/24 19:53 00:43 WBC RBC Hgb Hct MCV MCH MCHC RDW Plt Count Neut % (Auto) Lymph % (Auto) [place] % (Auto) Eos % (Auto) Baso % (Auto) Neut # (Auto) Lymph # (Auto) [place] # (Auto) Eos # (Auto) Baso # (Auto) Sodium Potassium Chloride Carbon Dioxide BUN Creatinine Estimated GFR BUN/Creatinine Ratio Glucose POC Whole Bld Glucose 245 H 289 H Calcium PFSH Medical History Anemia in other chronic diseases classified elsewhere Erectile dysfunction Insomnia Anxiety Migraines Headache Shoulder pain Osteoporosis Cataracts, bilateral Partial blindness GI bleeding Gastroparesis Gastric ulcer Chronic back pain MDD (major depressive disorder), recurrent episode, moderate Generalized anxiety disorder Compression fracture Chronic lower back pain HTN (hypertension) Hypothyroidism Marijuana use History of MRSA infection History of pneumonia Blurry vision, bilateral Diabetic neuropathy Bipolar disorder with depression Nausea and vomiting Diabetes type 1, uncontrolled Diabetic gastroparesis Surgical History No pertinent past surgical history Family History Mother No known health problems Father No known health problems Social History household members: family alcohol intake: never Discharge Plan Discharge Plan Patient Disposition: Home Discharge orders & Medications Prescriptions: New prochlorperazine maleate [Compazine] 10 mg tablet 10 mg PO Q6H PRN (Reason: nausea and vomiting) Qty: 120 1RF sucralfate 100 mg/mL suspension 10 ml PO QID Qty: 420 1RF Rx Instructions: swish in mouth and swallow; use after food/drink pantoprazole [Protonix] 40 mg tablet,delayed release (DR/EC) 40 mg PO DAILY Qty: 30 1RF Continued (DME) Dexcom G6 Transmitter Device See Rx Instructions .Route Qty: 1 3RF Rx Instructions: continuously monitor blood sugars hydroxyzine HCl 10 mg tablet 10 mg PO TID PRN (Reason: anxiety) Qty: 84 0RF Humulin R Regular U-100 Insuln 100 unit/mL solution See Rx Instructions .ROUTE .COMPLEX Qty: 10 3RF Rx Instructions: 40 units via insulin pump max daily dose 45 units (DME) Dexcom G6 Sensor Device See Rx Instructions .ROUTE .COMPLEX Qty: 3 3RF Dose Instruction: use to continuously monitor blood sugars, CHANGE EVERY 10 DAYS Rx Instructions: use to continuously monitor blood sugars, CHANGE EVERY 10 DAYS suvorexant 20 mg tablet 20 mg PO BEDTIME PRN (Reason: insomnia) Qty: 30 2RF sildenafil 100 mg tablet 100 mg PO DAILY PRN (Reason: sexual activity) Qty: 10 2RF fluoxetine 40 mg capsule 40 mg PO QAM Qty: 30 2RF metoprolol succinate 50 mg tablet extended release 24 hr 50 mg PO DAILY levothyroxine 50 mcg tablet 50 mcg PO DAILY Qty: 90 1RF hydrocodone-acetaminophen 5-325 mg tablet 1 tab PO TID PRN (Reason: pain) Qty: 90 0RF (DME) Extended [place] 3 mL Misc MISCELLANEOUS Rx Instructions: patient uses insulin pump (DME) True Metrix Glucose Test Strip Strip MISCELLANEOUS 4XD (DME) lancets [TRUEplus Lancets] 30 gauge misc MISCELLANEOUS 4XD (DME) blood-glucose meter [True Metrix Glucose Meter] Misc MISCELLANEOUS (DME) Dexcom G6 Dry Color Mixer Misc MISCELLANEOUS Patient Comments: [NO ORIGINAL SIG] tadalafil 5 mg tablet 5 mg PO DAILY Qty: 90 2RF Discontinued metoclopramide HCl 5 mg tablet 5 mg PO TID Follow up/Referrals: James Jung DO [Primary Care Provider, Family Practice] Visit Report/Discharge Packet Stand Alone Forms: Patient Portal/API Discharge Data Primary Care Provider: James Jung Quality VTE Deep Vein Thrombosis/Pulmonary Embolism Present on Admission: No
[2024-10-19 08:24] VITALS: BP 169/100
[2024-10-19] MEDS: METOPROLOL ER 50 MG TABLET PO (08:24)
[2024-10-19] MEDS: LEVOTHYROXINE 50 MCG TABLET PO (08:25)
--- NOTE | 2024-10-19 08:32 | CM.DPC ---
DCP Discharge Home Per MD, pt tolerating his diet and labs normal and turned back on his insulin pump and stable for discharge home today with outpt f/u. SAJAN faxed discharge summary to [facility] to review for plan of home today with his ongoing [facility] CGs and outpt f/u. GORDON [place]
[2024-10-19] MEDS: PANTOPRAZOLE DR 40 MG TABLET PO (08:35)
[2024-10-19 08:46] LABS: Blood Urea Nitrogen 10 mg/dL (9-20); Calcium 7.9 mg/dL (8.4-10.2); Carbon Dioxide 20 mmol/L (22-32); Chloride 100 mmol/L (98-107); Estimated Glomerular Filt Rate > 60 mL/min (>60); Glucose 318 mg/dL (70-99); Potassium 4.3 mmol/L (3.4-5.1); Sodium 130 mmol/L (137-145)
[2024-10-19 09:21] LABS: HEMOLYSIS 76 (0-50)
[2024-10-19 09:30] VITALS: BP 136/90
[2024-10-19] MEDS: SODIUM CHLORIDE 0.9% FLUSH 10 ML IV (10:23)
--- NOTE | 2024-10-19 12:31 | PC.NURSE ---
Pt resting at intervals Med as per orders for discomfort IVF now SL Planning Discharge this afternoon. Call light w/in reach, pt calls appropriately for neds. Continue w/plan of care.
== END 2024-10-19 13:10 | disposition home or self-care (01) | DRG 74 ==
LOC: ED 14:55 → AC 19:23
PROVIDERS: Hospitalist; Admitting Provider Internal Medicine; Emergency Provider Emergency Medicine; Family Provider Nurse Practitioner Family; PCP Family Medicine; Referring Provider Emergency Medicine; Visit Provider Internal Medicine
DX: E10.43 Type 1 diabetes mellitus with diabetic autonomic (poly)neuropathy (principal); E87.20 Acidosis, unspecified; K31.84 Gastroparesis; F31.9 Bipolar disorder, unspecified; E03.9 Hypothyroidism, unspecified; K21.9 Gastro-esophageal reflux disease without esophagitis; I12.9 Hypertensive chronic kidney disease with stage 1 through stage 4 chronic kidney disease, or unspecified chronic kidney disease; N18.32 Chronic kidney disease, stage 3b; G47.00 Insomnia, unspecified; E86.9 Volume depletion, unspecified; N52.9 Male erectile dysfunction, unspecified; F41.9 Anxiety disorder, unspecified; Z79.890 Hormone replacement therapy; Z96.41 Presence of insulin pump (external) (internal); Z79.4 Long term (current) use of insulin; R11.2 Nausea with vomiting, unspecified
CPT/HCPCS: 36415; 71045; 74177; 80048; 80053; 81001; 81003; 81015; 82009; 82805; 82962; 83605; 83690; 85025; 87040; 93005; 96361; 96365; 96375; 96376; 99285; G0378; J0131; J0360; J0780; J1171; J1650; J1815; J2272; J2405; J2543; J2765; Q9967

== ENCOUNTER 2024-11-09 14:50 | Emergency (ER) | payer OTHER, SELFPAY ==
[2024-10-15 18:35] VITALS: BMI 24.2
[2024-11-09] VITALS (18 sets, daily range): BP systolic 114–183; BP diastolic 64–114; PULSE 83–115; RESP 16–18; TEMP 36.8; O2SAT 96–100
[2024-11-09] MEDS: ONDANSETRON 4 MG/2 ML INJ IV (15:12)
[2024-11-09 16:10] LABS: Add Manual Diff / Slide Review NO; Alanine Aminotransferase 24 IU/L (<50); Albumin 5.0 g/dL (3.5-5.0); Albumin Globulin Ratio 1.5 (1.0-2.8); Alkaline Phosphatase 98 U/L (38-126); Blood Urea Nitrogen 33 mg/dL (9-20); Calcium 9.7 mg/dL (8.4-10.2); Carbon Dioxide 18 mmol/L (22-32); Chloride 99 mmol/L (98-107); Estimated Glomerular Filt Rate 43 mL/min (>60); Globulin 3.4 g/dL (1.7-4.1); Glucose 240 mg/dL (70-99); HEMOLYSIS < 15 (0-50); Hematocrit 38.6 % (41-53); Hemoglobin 13.2 g/dL (13.5-17.5); Lymphocytes Absolute Auto 1700 /uL (1100-4500); Mean Corpuscular HGB Conc 34.1 % (30-36); Mean Corpuscular Hemoglobin 27.0 PG (26-34); Mean Corpuscular Volume 79.1 fL (80-100); Platelet Count 320 X10^3/uL (150-400); Potassium 4.2 mmol/L (3.4-5.1); Sodium 134 mmol/L (137-145); Total Protein 8.4 g/dL (6.3-8.2)
[2024-11-09 16:16] LABS: Ketones (Beta-Hydroxybutyrate) 1.92 mmol/L (<0.27)
[2024-11-09 16:51] LABS: Base Excess VBG -0.2 mmol/L (0-4); HCO3 VBG 21 mmol/L (24-28); Oxygen Saturation VBG 77 % (70-75); PCO2 VBG 26.0 mmHg (45-50); PO2 VBG 36 mmHg (35-45); Total CO2 VBG 20 mmol/L (24-29); pH VBG 7.52 (7.33-7.43)
[2024-11-09] MEDS: SODIUM CHLORIDE 0.9% 500 ML 1000 ML IV (17:06)
[2024-11-09 17:24] LABS: Culture Indicated Urine Cult Not Indicated
--- NOTE | 2024-11-09 18:04 | ED_ITS ---
HPI - General Adult General Chief complaint: Diabetic Problem Stated complaint: abd/backpain, n/v, sugars out of control (type 1) Time Seen by Provider: 11/09/24 16:39 Source: patient Mode of arrival: Ambulatory History of Present Illness HPI narrative: 34-year-old with history of hypertension, anxiety, hypothyroidism and type 1 diabetes with accompanying episodes of DKA and ongoing GI problems with gastroparesis who presents with abdominal and back pain with nausea and vomiting and elevated blood sugars, with recurrent ER visits and admissions for abdominal pain, nausea, vomiting and at times DKA. Possible cyclic vomiting. He was most recently admitted here 10/15/2024 through 10/19/2024. He complains of 1 week of abdominal pain and upper and lower back pain along with nausea and vomiting and blood sugars ranging from 40-500. He has had some loose bowel movements but no fever or chills. Symptoms are similar to his other ER visits. 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 01/14/24 10/17/24 (Dexcom G6 Electrical Electronics Technician) Previous Rx's ?Medication ?Instructions ?Recorded levothyroxine 50 mcg tablet 50 mcg PO DAILY #90 tabs 0 10/22/23 blood-glucose transmitter (Dexcom #1 ea 01/18/24 G6 Transmitter device) hydroxyzine HCl 10 mg tablet 10 mg PO TID PRN anxiety #84 tabs 01/31/24 insulin regular human 100 unit/mL See Rx Instructions .Route 02/04/24 injection solution (Humulin R .COMPLEX #10 mL Regular U-100 Insulin) blood-glucose sensor (Dexcom G6 #3 ea 06/19/24 Sensor device) suvorexant 20 mg tablet 20 mg PO BEDTIME PRN insomni a #30 07/12/24 tabs sildenafil 100 mg tablet 100 mg PO DAILY PRN sexual 0 08/24/24 activity #10 tabs tadalafil 5 mg tablet 5 mg PO DAILY #90 tabs 08/28 fluoxetine 40 mg capsule 40 mg PO QAM #30 caps hydrocodone 5 mg-acetaminophen 325 1 tab PO TID PRN pa in #90 tabs 10/13/24 mg tablet pantoprazole 40 mg tablet,delayed 40 mg PO DAILY #30 t abs 10/19/24 release (Protonix) prochlorperazine maleate 10 mg 10 mg PO Q6H PRN nausea and 10/19/24 tablet (Compazine) vomiting #120 tabs sucralfate 100 mg/mL oral 10 ml PO QID #420 mL 5 suspension Allergies Allergy/AdvReac Type Severity Reaction Status Date / Time aspirin (ASPIRIN) Allergy Unknown MAKES ME Verified 10/15/24 12:28 GO DEAF hydrocodone (HYDROCODONE) AdvReac Intermediate VOMITING Verified 10/15/24 12:28 ibuprofen (IBUPROFEN) AdvReac Intermediate HURTS Verified 10/15/24 12:28 KIDNEYS Review of Systems Review of Systems ROS Unobtainable: All systems reviewed & are unremarkable except as noted in HPI and below Constitutional Constitutional: Reports as per HPI Gastrointestinal Gastrointestinal: Reports as per HPI Musculoskeletal Musculoskeletal: Reports as per HPI Endocrine Endocrine: Reports as per HPI Patient History Medical History Anemia in other chronic diseases classified elsewhere Erectile dysfunction Insomnia Anxiety Migraines Headache Shoulder pain Osteoporosis Cataracts, bilateral Partial blindness GI bleeding Gastroparesis Gastric ulcer Chronic back pain MDD (major depressive disorder), recurrent episode, moderate Generalized anxiety disorder Compression fracture Chronic lower back pain HTN (hypertension) Hypothyroidism Marijuana use History of MRSA infection History of pneumonia Blurry vision, bilateral Diabetic neuropathy Bipolar disorder with depression Nausea and vomiting Diabetes type 1, uncontrolled Diabetic gastroparesis Surgical History No pertinent past surgical history Family History Mother No known health problems Father No known health problems Social History household members: family Smoking Status: Never smoker alcohol intake: never Smoking Status: Never smoker alcohol intake frequency: holidays/special occasions only Alcohol type: hard liquor Exam Narrative Exam Narrative: General: Alert and conversant. Mild distress. Appears ill. Craniofacial: No evidence of trauma. Nontender and no swelling. Eyes: PERRLA EOMI conjunctiva clear HEENT: Tragus, pinnae nontender. Tympanic membranes normal appearance. Oropharynx clear with no swelling, exudate or asymmetry of the pharynx. Nares clear. No sinus tenderness Neck: No tenderness or adenopathy. No meningismus. No JVD Lungs: Clear to auscultation with good air movement. No wheezing, rales or rhonchi. No respiratory distress Cardiac: Mild tachycardia. Regular rhythm. no appreciable murmur or gallop Abdomen: Soft, nontender with no distention or masses. Normal bowel sounds. No rebound or guarding Musculoskeletal: Mild paralumbar and parathoracic muscle tenderness but no midline tenderness or spasm. Otherwise Exam of the extremities, axial spine and ribcage reveals no deformity, bony tenderness or swelling. Range of motion intact Neuro: Alert and oriented. Cranial nerves, motor, sensory and cerebellar all grossly intact. No focal deficit Skin: Warm and normal color. No rashes Psychological: Normal affect and interaction. No evidence of delusion or psychosis. Normal mood. Initial Vital Signs Initial Vital Signs: Vital Signs Temperature 98.2 F 11/09/24 14:57 Pulse Rate 105 H 11/09/24 14:57 Respiratory Rate 18 11/09/24 14:57 Blood Pressure 180/114 H 11/09/24 14:57 Pulse Oximetry 100 11/09/24 14:57 Oxygen Delivery Method Room Air 11/09/24 14:57 Course Course Course Narrative: 22:50 Patient's repeat BMP and ketones are normal and reassuring. Lactate negative. He has received 2 doses of hydromorphone for his abdominal pain which appears to be gastroparesis but does not have DKA and does not meet criteria for admission. Overall he is feeling better. He will be discharged home Orders Ordered: ED Orders 11/09/24 22:05 BMP [Basic Metabolic Panel] Stat Ketones (Beta-Hydroxybutyrate) Stat Lactate (Lactic Acid) Stat Discontinued Medications Hydromorphone HCl (Hydromorphone 1 Mg/Ml Syringe) 1 mg IV NOW ONE Stop: 11/09/24 18:46 Last Admin: 11/09/24 18:45 Dose: 1 mg Documented By: QUETA Hydromorphone HCl (Hydromorphone 1 Mg/Ml Syringe) 1 mg IV NOW ONE Stop: 11/09/24 22:06 Last Admin: 11/09/24 22:07 Dose: 1 mg Documented By: QUETA Sodium Chloride (Normal Saline 0.9%) 500 mls @ 1,000 mls/hr IV BOLUS ONE Stop: 11/09/24 17:08 Last Infusion: 11/09/24 18:13 Dose: Infused Documented By: Admin: 11/09/24 17:06 Dose: 1,000 mls/hr Documented By: QUETA Sodium Chloride (Normal Saline 0.9%) 1,000 mls @ 1,000 mls/hr IV BOLUS ONE Stop: 11/09/24 19:30 Last Infusion: 11/09/24 20:40 Dose: Infused Documented By: Admin: 11/09/24 18:44 Dose: 1,000 mls/hr Documented By: QUETA Insulin Human Regular (Insulin Regular 100 Unit/Ml 3 Ml Vial) 10 unit SUBCUT NOW ONE Stop: 11/09/24 16:41 Last Admin: 11/09/24 18:13 Dose: Not Given Documented By: QUETA Ondansetron HCl (Ondansetron 4 Mg/2 Ml Inj) 4 mg IV NOW PRN PRN Reason: Nausea And Vomiting Last Admin: 11/09/24 15:12 Dose: 4 mg Documented By: SANDRA Ondansetron HCl (Ondansetron 4 Mg Odt) 4 mg PO NOW PRN PRN Reason: Nausea And Vomiting Prochlorperazine (Prochlorperazine 10 Mg/2 Ml Vial) 10 mg IV NOW ONE Stop: 11/09/24 18:32 Last Admin: 11/09/24 18:44 Dose: 10 mg Documented By: QUETA Vital Signs Vital signs: Vital Signs - 8 hr 11/09/24 21:00 11/09/24 21:30 11/09/24 22:00 Pulse Rate 83 88 84 Respiratory Rate Blood Pressure Pulse Oximetry 98 98 98 Oxygen Delivery Method 11/09/24 22:30 11/09/24 23:00 Pulse Rate 83 91 H Respiratory Rate 16 Blood Pressure 114/64 114/64 Pulse Oximetry 98 99 Oxygen Delivery Method Room Air Medical Decision Making Medical Records Medical records reviewed: Yes I reviewed the patient's medical records. Lab Data Lab results reviewed: Yes I reviewed the patient's lab results. 11/09/24 15:43 11/09/24 22:05 Labs: Lab Results 11/09/24 11/09/24 11/09/24 Range/Units 15:08 15:43 16:45 WBC 10.0 (4.5-11.0) X10^3/uL RBC 4.88 (4.5-5.9) X10^6/uL Hgb 13.2 L (13.5-17.5) g/dL Hct 38.6 L (41-53) % MCV 79.1 L (80-100) fL MCH 27.0 (26-34) PG MCHC 34.1 (30-36) % RDW 13.9 (11.6-14.8) % Plt Count 320 (150-400) X10^3/uL Neut % (Auto) 74.6 (50-75) % Lymph % (Auto) 16.9 L (25-40) % [place] % (Auto) 7.8 (3-14) % Eos % (Auto) 0.3 L (2-4) % Baso % (Auto) 0.4 (0-2) % Neut # (Auto) 7500 H (4059-4311) /uL Lymph # (Auto) 1700 (1164-0798) /uL [place] # (Auto) 800 (0-900) /uL Eos # (Auto) 0 (0-450) /uL Baso # (Auto) 0 (0-100) /uL VBG pH (7.33-7.43) VBG pCO2 (45-50) mmHg VBG pO2 (35-45) mmHg VBG HCO3 (24-28) mmol/L VBG Total CO2 (24-29) mmol/L VBG O2 Saturation (70-75) % VBG Base Excess (0-4) mmol/L Sodium 134 L (137-145) mmol/L Potassium 4.2 (3.4-5.1) mmol/L Chloride 99 (98-107) mmol/L Carbon Dioxide 18 L (22-32) mmol/L BUN 33 H (9-20) mg/dL Creatinine 2.04 H (0.66-1.25) mg/dL Estimated GFR 43 L (>60) mL/min BUN/Creatinine Ratio 16.2 (6-22) Glucose 240 H (70-99) mg/dL POC Whole Bld Glucose 188 H (70-99) mg/dL Lactate (0.7-2.1) mmol/L Calcium 9.7 (8.4-10.2) mg/dL Total Bilirubin 1.0 (0.2-1.3) mg/dL AST 28 (17-59) IU/L ALT 24 (<50) IU/L Alkaline Phosphatase 98 (38-126) U/L Total Protein 8.4 H (6.3-8.2) g/dL Albumin 5.0 (3.5-5.0) g/dL Globulin 3.4 (1.7-4.1) g/dL Albumin/Globulin Ratio 1.5 (1.0-2.8) Urine RBC 0-1/hpf (0-5/HPF) Urine WBC None seen (0-5/HPF) Ur Squamous Epith Cells 0-1 /hpf (0-5/HPF) Urine Bacteria None seen (None) Hyaline Casts 5-10/lpf (None) Ur Culture Indicated? Cult not indicated Vol Urine Centrifuged 10ml (spun) Ketones 1.92 H (<0.27) mmol/L 11/09/24 11/09/24 11/09/24 Range/Units 16:46 16:57 22:05 WBC (4.5-11.0) X10^3/uL RBC (4.5-5.9) X10^6/uL Hgb (13.5-17.5) g/dL Hct (41-53) % MCV (80-100) fL MCH (26-34) PG MCHC (30-36) % RDW (11.6-14.8) % Plt Count (150-400) X10^3/uL Neut % (Auto) (50-75) % Lymph % (Auto) (25-40) % [place] % (Auto) (3-14) % Eos % (Auto) (2-4) % Baso % (Auto) (0-2) % Neut # (Auto) (5349-0474) /uL Lymph # (Auto) (3410-0234) /uL [place] # (Auto) (0-900) /uL Eos # (Auto) (0-450) /uL Baso # (Auto) (0-100) /uL VBG pH 7.52 H (7.33-7.43) VBG pCO2 26.0 L (45-50) mmHg VBG pO2 36 (35-45) mmHg VBG HCO3 21 L (24-28) mmol/L VBG Total CO2 20 L (24-29) mmol/L VBG O2 Saturation 77 H (70-75) % VBG Base Excess -0.2 L (0-4) mmol/L Sodium 140 (137-145) mmol/L Potassium 3.9 (3.4-5.1) mmol/L Chloride 106 (98-107) mmol/L Carbon Dioxide 25 (22-32) mmol/L BUN 31 H (9-20) mg/dL Creatinine 1.58 H (0.66-1.25) mg/dL Estimated GFR 59 L (>60) mL/min BUN/Creatinine Ratio 19.6 (6-22) Glucose 76 D (70-99) mg/dL POC Whole Bld Glucose 268 H (70-99) mg/dL Lactate 0.8 (0.7-2.1) mmol/L Calcium 8.5 (8.4-10.2) mg/dL Total Bilirubin (0.2-1.3) mg/dL AST (17-59) IU/L ALT (<50) IU/L Alkaline Phosphatase (38-126) U/L Total Protein (6.3-8.2) g/dL Albumin (3.5-5.0) g/dL Globulin (1.7-4.1) g/dL Albumin/Globulin Ratio (1.0-2.8) Urine RBC (0-5/HPF) Urine WBC (0-5/HPF) Ur Squamous Epith Cells (0-5/HPF) Urine Bacteria (None) Hyaline Casts (None) Ur Culture Indicated? Vol Urine Centrifuged Ketones 0.08 (<0.27) mmol/L 11/09/24 11/09/24 Range/Units 23:03 23:31 WBC (4.5-11.0) X10^3/uL RBC (4.5-5.9) X10^6/uL Hgb (13.5-17.5) g/dL Hct (41-53) % MCV (80-100) fL MCH (26-34) PG MCHC (30-36) % RDW (11.6-14.8) % Plt Count (150-400) X10^3/uL Neut % (Auto) (50-75) % Lymph % (Auto) (25-40) % [place] % (Auto) (3-14) % Eos % (Auto) (2-4) % Baso % (Auto) (0-2) % Neut # (Auto) (1670-5939) /uL Lymph # (Auto) (5645-1701) /uL [place] # (Auto) (0-900) /uL Eos # (Auto) (0-450) /uL Baso # (Auto) (0-100) /uL VBG pH (7.33-7.43) VBG pCO2 (45-50) mmHg VBG pO2 (35-45) mmHg VBG HCO3 (24-28) mmol/L VBG Total CO2 (24-29) mmol/L VBG O2 Saturation (70-75) % VBG Base Excess (0-4) mmol/L Sodium (137-145) mmol/L Potassium (3.4-5.1) mmol/L Chloride (98-107) mmol/L Carbon Dioxide (22-32) mmol/L BUN (9-20) mg/dL Creatinine (0.66-1.25) mg/dL Estimated GFR (>60) mL/min BUN/Creatinine Ratio (6-22) Glucose (70-99) mg/dL POC Whole Bld Glucose 36 L* D 71 (70-99) mg/dL Lactate (0.7-2.1) mmol/L Calcium (8.4-10.2) mg/dL Total Bilirubin (0.2-1.3) mg/dL AST (17-59) IU/L ALT (<50) IU/L Alkaline Phosphatase (38-126) U/L Total Protein (6.3-8.2) g/dL Albumin (3.5-5.0) g/dL Globulin (1.7-4.1) g/dL Albumin/Globulin Ratio (1.0-2.8) Urine RBC (0-5/HPF) Urine WBC (0-5/HPF) Ur Squamous Epith Cells (0-5/HPF) Urine Bacteria (None) Hyaline Casts (None) Ur Culture Indicated? Vol Urine Centrifuged Ketones (<0.27) mmol/L Point of Care Testing Glucose POC 268 Urine Dip Bedside Urine Glucose 1000 mg/dl Bedside Urine Bilirubin + 1 Bedside Urine Ketone ++ 40 Urine Specific [place] 1.020 Bedside Urine Occult Blood +/- Bedside Urine pH 6.0 Bedside Urine Protein + 30 Bedside Urine Urobilinogen - Negative Bedside Urine Nitrite - Negative Bedside Urine Leukocytes - Negative Esterase Point of care testing: Point of Care Testing Glucose POC 268 Urine Dip Bedside Urine Glucose 1000 mg/dl Bedside Urine Bilirubin + 1 Bedside Urine Ketone ++ 40 Urine Specific [place] 1.020 Bedside Urine Occult Blood +/- Bedside Urine pH 6.0 Bedside Urine Protein + 30 Bedside Urine Urobilinogen - Negative Bedside Urine Nitrite - Negative Bedside Urine Leukocytes - Negative Esterase MDM Narrative Medical decision making narrative: Patient has had chronic recurrence of gastroparesis and abdominal symptoms and also bouts of DKA but at this point and this visit his lab work is reassuring as well as his vital signs. He did have some hypoglycemia in the ER which corrected with taking juice and calories. He has an insulin pump. His pain appears to be gastroparesis but does not need admission, CT scan or imaging. He has improved and will be discharged home to follow up with his provider. Return to the ER if worse Discharge Plan Departure Patient Disposition: Home Clinical Impression: Diabetic gastroparesis Instructions: DI for Gastroparesis Activity Restrictions/Additional Instructions: Plan: Hydration, rest and supportive care and continue current medications. Contact your doctor tomorrow for close follow-up to manage symptoms. Return to the ER if worse. Prescriptions: No Action (DME) Dexcom G6 Transmitter Device See Rx Instructions .Route Qty: 1 3RF Rx Instructions: continuously monitor blood sugars hydroxyzine HCl 10 mg tablet 10 mg PO TID PRN (Reason: anxiety) Qty: 84 0RF Humulin R Regular U-100 Insuln 100 unit/mL solution See Rx Instructions .ROUTE .COMPLEX Qty: 10 3RF Rx Instructions: 40 units via insulin pump max daily dose 45 units (DME) Dexcom G6 Sensor Device See Rx Instructions .ROUTE .COMPLEX Qty: 3 3RF Dose Instruction: use to continuously monitor blood sugars, CHANGE EVERY 10 DAYS Rx Instructions: use to continuously monitor blood sugars, CHANGE EVERY 10 DAYS suvorexant 20 mg tablet 20 mg PO BEDTIME PRN (Reason: insomnia) Qty: 30 2RF sildenafil 100 mg tablet 100 mg PO DAILY PRN (Reason: sexual activity) Qty: 10 2RF fluoxetine 40 mg capsule 40 mg PO QAM Qty: 30 2RF metoprolol succinate 50 mg tablet extended release 24 hr 50 mg PO DAILY levothyroxine 50 mcg tablet 50 mcg PO DAILY Qty: 90 1RF hydrocodone-acetaminophen 5-325 mg tablet 1 tab PO TID PRN (Reason: pain) Qty: 90 0RF (DME) Extended [place] 3 mL Misc MISCELLANEOUS Rx Instructions: patient uses insulin pump (DME) True Metrix Glucose Test Strip Strip MISCELLANEOUS 4XD (DME) lancets [TRUEplus Lancets] 30 gauge misc MISCELLANEOUS 4XD (DME) blood-glucose meter [True Metrix Glucose Meter] Misc MISCELLANEOUS (DME) Dexcom G6 Electrical Electronics Technician Misc MISCELLANEOUS Patient Comments: [NO ORIGINAL SIG] prochlorperazine maleate [Compazine] 10 mg tablet 10 mg PO Q6H PRN (Reason: nausea and vomiting) Qty: 120 1RF sucralfate 100 mg/mL suspension 10 ml PO QID Qty: 420 1RF Rx Instructions: swish in mouth and swallow; use after food/drink pantoprazole [Protonix] 40 mg tablet,delayed release (DR/EC) 40 mg PO DAILY Qty: 30 1RF tadalafil 5 mg tablet 5 mg PO DAILY Qty: 90 2RF Referrals: James Jung DO [Primary Care Provider, Family Practice] Stand Alone Forms: Patient Portal/API
--- NOTE | 2024-11-09 18:32 | PC.NURSE ---
patient complains of nausea and pain. Notified provider. Will continue to monitor.
[2024-11-09] MEDS: SODIUM CHLORIDE 0.9% 1,000 ML 1000 ML IV (18:44)
[2024-11-09] MEDS: PROCHLORPERAZINE 10 MG/2 ML VIAL IV (18:44)
[2024-11-09 22:25] LABS: Blood Urea Nitrogen 31 mg/dL (9-20); Calcium 8.5 mg/dL (8.4-10.2); Carbon Dioxide 25 mmol/L (22-32); Chloride 106 mmol/L (98-107); Estimated Glomerular Filt Rate 59 mL/min (>60); Glucose 76 mg/dL (70-99); HEMOLYSIS < 15 (0-50); Lactate (Lactic Acid) 0.8 mmol/L (0.7-2.1); Potassium 3.9 mmol/L (3.4-5.1); Sodium 140 mmol/L (137-145)
[2024-11-09 22:35] LABS: Ketones (Beta-Hydroxybutyrate) 0.08 mmol/L (<0.27)
--- NOTE | 2024-11-09 23:09 | PC.NURSE ---
Patient's pump was reading low. 76. He had us check his BG. our machine read in the 30s. Pt able to take po juice and crackers. Will continue to monitor. Patient states his glucometer is frequently off. Pt was instructed to have his glucometer calibrated for accuracy.
--- NOTE | 2024-11-09 23:38 | PC.NURSE ---
patient glucose recheck 71. pt states he feels better and wants to go home and eat. he ambulated independently with a steady gait. Provider jeffrey edwards
== END 2024-11-09 23:39 | disposition home or self-care (01) ==
PROVIDERS: Student in an Organized Health Care Education/Training Program; Emergency Provider Emergency Medicine; Family Provider Nurse Practitioner Family; PCP Family Medicine
DX: E10.43 Type 1 diabetes mellitus with diabetic autonomic (poly)neuropathy (principal); E10.65 Type 1 diabetes mellitus with hyperglycemia; K31.84 Gastroparesis; R11.2 Nausea with vomiting, unspecified
CPT/HCPCS: 36415; 80048; 80053; 81003; 81015; 82009; 82805; 82962; 83605; 85025; 96361; 96374; 96375; 96376; 99284; J0780; J1171; J2405

== ENCOUNTER 2024-11-21 15:02 | Emergency (ER) | payer OTHER, SELFPAY ==
[2024-10-15 18:35] VITALS: BMI 24.2
[2024-11-21] VITALS (9 sets, daily range): BP systolic 87–128; BP diastolic 47–71; PULSE 74–100; RESP 18; TEMP 36.7; O2SAT 98–100; BMI 22.9
--- NOTE | 2024-11-21 16:08 | DI.CT.S_ITS ---
PROCEDURE: CT ABDOMEN PELVIS W CON INDICATIONS: abd pain TECHNIQUE: After the administration of intravenous contrast, axial sections acquired from the lung bases to the pubic symphysis. Coronal and sagittal reformats were performed. For radiation dose reduction, the following was used: automated exposure control, adjustment of mA and/or kV according to patient size. COMPARISON: [facility], CT, CT ABDOMEN PELVIS W CON, 10/13/2024, 23:25. FINDINGS: Image quality: Diagnostic. Lower Chest: No significant findings. ABDOMEN: Mild nonspecific wall thickening of the distal esophagus into the gastroesophageal junction only, less than on the prior exam some of which may be artifact from partial nondistention although esophagitis, gastritis or other process could be considered. Otherwise the gastric body and duodenum within normal limits. Mild nonspecific wall thickening of the proximal jejunum as well as in the distal rectum/anus commonly artifact from partial nondistention although proctitis, hemorrhoids or other anal rectal lesion could be considered. Decreased height with anterior wedging of 1 L1 vertebral body compression fracture chronic unchanged. Normal nondilated appendix. Cecum and transverse, descending , sigmoid colon within normal limits. Mildly enlarged prostate gland. Mild nonspecific wall thickening of the urinary bladder measuring up to 8 mm commonly artifact from partial nondistention although mild cystitis, chronic urinary retention, or other process could be considered. Liver: Normal Gallbladder: Normal Biliary ducts: No biliary dilation. Pancreas: Mild atrophy. Spleen: Size is within normal limits. Adrenal Glands: No adrenal nodules. Kidneys and Ureters: No hydronephrosis. No solid mass. No complex renal cystic lesion which requires follow up. Peritoneum: No abnormal intraperitoneal fluid. No free air. Ventral Wall: No significant ventral hernia. Abdominal Nodes: No retroperitoneal or mesenteric adenopathy by size criteria. Vessels: Aorta and inferior vena cava are normal in size. PELVIS: Pelvic Organs: Unremarkable. Pelvic Nodes: No enlarged lymph nodes. Miscellaneous: No inguinal hernias are seen. IMPRESSION: Nonspecific wall thickening distal esophagus into the stomach and jejunum as discussed above. Wall thickening distal rectum/anus as discussed above. L1 compression fracture, chronic unchanged. Mild wall thickening of the bladder as discussed above. Dictated by: Jose Ramon Cazares M.D. on 11/21/2024 at 17:01 Approved by: Jose Ramon Cazares M.D. on 11/21/2024 at 17:07
[2024-11-21] MEDS: ONDANSETRON 4 MG/2 ML INJ IV (18:34)
[2024-11-21] MEDS: LACTATED RINGERS 500 ML 1000 ML IV ×2 (18:34→20:01)
--- NOTE | 2024-11-21 18:34 | ED.NAVMDI ---
HPI - Nausea/Vomiting/Diarrhea General Chief complaint: Nausea/Vomiting/Diarrhea Stated complaint: n/v/d x 3 days, head/earache Time Seen by Provider: 11/21/24 16:07 Source: patient Mode of arrival: Wheelchair History of Present Illness HPI Narrative: 34-year-old male history of hypertension anxiety hypothyroidism type 1 diabetes since with chronic GI issues with abdominal pain nausea vomiting and diarrhea with recurrent visits on multiple occasions loading today for the past few days unable to hold anything down. His sugars ranged from 190s to 250s. He denies chest pain shortness of breath fever chills body aches sore throat but does feel acid in his throat region and chest region despite taking Protonix. Other than what is stated 14 point review of system is negative. 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 01/14/24 10/17/24 (Dexcom G6 [employer]ed [employer] Boards Contact Printer) Previous Rx's ?Medication ?Instructions ?Recorded levothyroxine 50 mcg tablet 50 mcg PO DAILY #90 tabs 10/22/23 blood-glucose transmitter (Dexcom #1 ea 01/18/24 G6 Transmitter device) hydroxyzine HCl 10 mg tablet 10 mg PO TID PRN anxiety #84 tabs 01/31/24 insulin regular human 100 unit/mL See Rx Instructions .Route 02/04/24 injection solution (Humulin R .COMPLEX #10 mL Regular U-100 Insulin) blood-glucose sensor (Dexcom G6 #3 ea 06/19/24 Sensor device) suvorexant 20 mg tablet 20 mg PO BEDTIME PRN insomnia #30 07/12/24 tabs sildenafil 100 mg tablet 100 mg PO DAILY PRN sexual 08/24/24 activity #10 tabs tadalafil 5 mg tablet 5 mg PO DAILY #90 tabs 08/28/24 fluoxetine 40 mg capsule 40 mg PO QAM #30 caps 10/10/24 pantoprazole 40 mg tablet,delayed 40 mg PO DAILY #30 tabs 10/19/24 release (Protonix) prochlorperazine maleate 10 mg 10 mg PO Q6H PRN nausea and 10/19/24 tablet (Compazine) vomiting #120 tabs sucralfate 100 mg/mL oral 10 ml PO QID #420 mL 10/19/24 suspension hydrocodone 5 mg-acetaminophen 325 1 tab PO TID PRN pain #90 tabs 11/14/24 mg tablet Allergies Allergy/AdvReac Type Severity Reaction Status Date / Time aspirin (ASPIRIN) Allergy Unknown MAKES ME Verified 10/15/24 12:28 GO DEAF hydrocodone (HYDROCODONE) AdvReac Intermediate VOMITING Verified 10/15/24 12:28 ibuprofen (IBUPROFEN) AdvReac Intermediate HURTS Verified 10/15/24 12:28 KIDNEYS Review of Systems Review of Systems ROS Unobtainable: All systems reviewed & are unremarkable except as noted in HPI and below Patient History Medical History Anemia in other chronic diseases classified elsewhere Erectile dysfunction Insomnia Anxiety Migraines Headache Shoulder pain Osteoporosis Cataracts, bilateral Partial blindness GI bleeding Gastroparesis Gastric ulcer Chronic back pain MDD (major depressive disorder), recurrent episode, moderate Generalized anxiety disorder Compression fracture Chronic lower back pain HTN (hypertension) Hypothyroidism Marijuana use History of MRSA infection History of pneumonia Blurry vision, bilateral Diabetic neuropathy Bipolar disorder with depression Nausea and vomiting Diabetes type 1, uncontrolled Diabetic gastroparesis Surgical History No pertinent past surgical history Family History Mother No known health problems Father No known health problems Social History household members: family alcohol intake: never alcohol intake frequency: holidays/special occasions only Alcohol type: hard liquor Exam Narrative Exam Narrative: GENERAL: [34] year old patient appears stated age. Well-developed patient, in mild distress. HEAD: Atraumatic. Normocephalic. EYES: Pupils equal round and reactive. Extraocular motions intact. No scleral icterus. No injection or drainage. ENT: Nose without bleeding, purulent drainage. Throat without erythema, tonsillar hypertrophy or exudate. Airway patent. NECK: Trachea midline. Non tender CARDIOVASCULAR: Regular rate and rhythm without murmurs, gallops, or rubs. RESPIRATORY: Clear to auscultation. Breath sounds equal bilaterally. No wheezes, rales, or rhonchi. GASTROINTESTINAL: Abdomen soft, non-tender, nondistended. EXTREMITIES: No edema or joint tenderness. BACK: Nontender without deformity or crepitance. No flank tenderness. NEURO: AOx3. SKIN: No rash or erythema of visible areas Initial Vital Signs Initial Vital Signs: Vital Signs Temperature 98.1 F 11/21/24 15:09 Pulse Rate 90 11/21/24 15:09 Respiratory Rate 18 11/21/24 15:09 Blood Pressure 95/68 11/21/24 15:09 Pulse Oximetry 100 11/21/24 15:09 Oxygen Delivery Method Room Air 11/21/24 15:09 Course Orders Ordered: ED Orders 11/21/24 16:08 CT abdomen pelvis w con Stat Complete Blood Count AUTO DIFF Stat Comprehensive Metabolic Panel Stat Covid-19 + FLU A/B + RSV - PCR Stat Lipase Stat Ondansetron HCl (Ondansetron 4 Mg/2 Ml Inj) 4 mg IV NOW PRN PRN Reason: Nausea And Vomiting Ondansetron HCl (Ondansetron 4 Mg Odt) 4 mg PO NOW PRN PRN Reason: Nausea And Vomiting Discontinued Medications Lactated Ringer's (Lactated Ringers) 500 mls @ 1,000 mls/hr IV BOLUS ONE Stop: 11/21/24 16:37 Ondansetron HCl (Ondansetron 4 Mg/2 Ml Inj) 4 mg IV NOW ONE Stop: 11/21/24 16:09 Vital Signs Vital signs: Vital Signs - 8 hr 11/21/24 15:09 Temperature 98.1 F Pulse Rate 90 Respiratory Rate 18 Blood Pressure 95/68 Pulse Oximetry 100 Oxygen Delivery Method Room Air MDM - Nausea/Vomiting/Diarrhea Imaging Data CT scan - abdomen/pelvis: Radiologist's Impression: [address] [address] [address] Scan Report Signed Patient: Valentin Noble MR#: [id number] : 1990 Acct:[id number] Age/Sex: 34 / M Date of Service: 11/21/24 Loc: ED Accession Number: [id number] Procedure: CT abdomen pelvis w con Ordering Provider: Guy Sharpe D.O. PROCEDURE: CT ABDOMEN PELVIS W CON INDICATIONS: abd pain TECHNIQUE: After the administration of intravenous contrast, axial sections acquired from the lung bases to the pubic symphysis. Coronal and sagittal reformats were performed. For radiation dose reduction, the following was used: automated exposure control, adjustment of mA and/or kV according to patient size. COMPARISON: [facility], CT, CT ABDOMEN PELVIS W CON, 10/13/2024, 23:25. FINDINGS: Image quality: Diagnostic. Lower Chest: No significant findings. ABDOMEN: Mild nonspecific wall thickening of the distal esophagus into the gastroesophageal junction only, less than on the prior exam some of which may be artifact from partial nondistention although esophagitis, gastritis or other process could be considered. Otherwise the gastric body and duodenum within normal limits. Mild nonspecific wall thickening of the proximal jejunum as well as in the distal rectum/anus commonly artifact from partial nondistention although proctitis, hemorrhoids or other anal rectal lesion could be considered. Decreased height with anterior wedging of 1 L1 vertebral body compression fracture chronic unchanged. Normal nondilated appendix. Cecum and transverse, descending , sigmoid colon within normal limits. Mildly enlarged prostate gland. Mild nonspecific wall thickening of the urinary bladder measuring up to 8 mm commonly artifact from partial nondistention although mild cystitis, chronic urinary retention, or other process could be considered. Liver: Normal Gallbladder: Normal Biliary ducts: No biliary dilation. Pancreas: Mild atrophy. Spleen: Size is within normal limits. Adrenal Glands: No adrenal nodules. Kidneys and Ureters: No hydronephrosis. No solid mass. No complex renal cystic lesion which requires follow up. Peritoneum: No abnormal intraperitoneal fluid. No free air. Ventral Wall: No significant ventral hernia. Abdominal Nodes: No retroperitoneal or mesenteric adenopathy by size criteria. Vessels: Aorta and inferior vena cava are normal in size. PELVIS: Pelvic Organs: Unremarkable. Pelvic Nodes: No enlarged lymph nodes. Miscellaneous: No inguinal hernias are seen. IMPRESSION: Nonspecific wall thickening distal esophagus into the stomach and jejunum as discussed above. Wall thickening distal rectum/anus as discussed above. L1 compression fracture, chronic unchanged. Mild wall thickening of the bladder as discussed above. MDM Narrative Medical decision making narrative: All lab work, vital signs, nurse triage note, medication list, previous ER visits, and all imaging studies reviewed. CT scan showed nonspecific wall thickening distal esophagus into the stomach and jejunum as discussed above. All thickening distal. Rectum anus as discussed above 1 compression fracture chronic unchanged. Mild wall thickening of the bladder. Patient given 2 L of lactated Ringer bolus, droperidol, Benadryl, and GI cocktail and Protonix. WBC 6.2 hemoglobin 12.4 platelet 237 sodium 135 passing 4.1 chloride 99 CO2 28 BUN 21 creatinine 1.35 glucose 70 LFTs normal lipase 34 ketones normal at 0.07. Differential diagnosis diverticulitis pancreatitis gastroparesis obstruction constipation viral. Discharge Plan Departure Patient Disposition: Home Clinical Impression: Nausea vomiting and diarrhea Gastritis Qualifiers: Chronicity: chronic Gastritis bleeding: without bleeding Instructions: DI for Gastritis Activity Restrictions/Additional Instructions: Return with new or worsening symptoms. Keep hydrated. Follow up PCP call office for appointment. Prescriptions: No Action (DME) Dexcom G6 Transmitter Device See Rx Instructions .Route Qty: 1 3RF Rx Instructions: continuously monitor blood sugars hydroxyzine HCl 10 mg tablet 10 mg PO TID PRN (Reason: anxiety) Qty: 84 0RF Humulin R Regular U-100 Insuln 100 unit/mL solution See Rx Instructions .ROUTE .COMPLEX Qty: 10 3RF Rx Instructions: 40 units via insulin pump max daily dose 45 units (DME) Dexcom G6 Sensor Device See Rx Instructions .ROUTE .COMPLEX Qty: 3 3RF Dose Instruction: use to continuously monitor blood sugars, CHANGE EVERY 10 DAYS Rx Instructions: use to continuously monitor blood sugars, CHANGE EVERY 10 DAYS suvorexant 20 mg tablet 20 mg PO BEDTIME PRN (Reason: insomnia) Qty: 30 2RF sildenafil 100 mg tablet 100 mg PO DAILY PRN (Reason: sexual activity) Qty: 10 2RF fluoxetine 40 mg capsule 40 mg PO QAM Qty: 30 2RF hydrocodone-acetaminophen 5-325 mg tablet 1 tab PO TID PRN (Reason: pain) Qty: 90 0RF metoprolol succinate 50 mg tablet extended release 24 hr 50 mg PO DAILY levothyroxine 50 mcg tablet 50 mcg PO DAILY Qty: 90 1RF (DME) Extended Blades 3 mL Misc MISCELLANEOUS Rx Instructions: patient uses insulin pump (DME) True Metrix Glucose Test Strip Strip MISCELLANEOUS 4XD (DME) lancets [TRUEplus Lancets] 30 gauge misc MISCELLANEOUS 4XD (DME) blood-glucose meter [True Metrix Glucose Meter] Misc MISCELLANEOUS (DME) Dexcom G6 [employer]ed [employer] Boards Contact Printer Misc MISCELLANEOUS Patient Comments: [NO ORIGINAL SIG] prochlorperazine maleate [Compazine] 10 mg tablet 10 mg PO Q6H PRN (Reason: nausea and vomiting) Qty: 120 1RF sucralfate 100 mg/mL suspension 10 ml PO QID Qty: 420 1RF Rx Instructions: swish in mouth and swallow; use after food/drink pantoprazole [Protonix] 40 mg tablet,delayed release (DR/EC) 40 mg PO DAILY Qty: 30 1RF tadalafil 5 mg tablet 5 mg PO DAILY Qty: 90 2RF Referrals: James Jung DO [Primary Care Provider, Family Practice] Stand Alone Forms: Patient Portal/API
[2024-11-21 18:47] LABS: Add Manual Diff / Slide Review NO; Hematocrit 37.5 % (41-53); Hemoglobin 12.4 g/dL (13.5-17.5); Lymphocytes Absolute Auto 2100 /uL (1100-4500); Mean Corpuscular HGB Conc 33.1 % (30-36); Mean Corpuscular Hemoglobin 26.8 PG (26-34); Mean Corpuscular Volume 81.0 fL (80-100); Platelet Count 237 X10^3/uL (150-400)
[2024-11-21] MEDS: PANTOPRAZOLE 40 MG VIAL IV (19:02)
[2024-11-21] MEDS: diphenhydrAMINE 50 MG/ML VIAL IV (19:02)
[2024-11-21] MEDS: droPERidol 2.5 MG/ML VIAL IV (19:03)
[2024-11-21 19:06] LABS: Alanine Aminotransferase 12 IU/L (<50); Albumin 4.4 g/dL (3.5-5.0); Albumin Globulin Ratio 1.5 (1.0-2.8); Alkaline Phosphatase 67 U/L (38-126); Blood Urea Nitrogen 21 mg/dL (9-20); Calcium 8.9 mg/dL (8.4-10.2); Carbon Dioxide 28 mmol/L (22-32); Chloride 99 mmol/L (98-107); Estimated Glomerular Filt Rate > 60 mL/min (>60); Globulin 3.0 g/dL (1.7-4.1); Glucose 70 mg/dL (70-99); HEMOLYSIS < 15 (0-50); Lipase 34 U/L (23-300); Potassium 4.1 mmol/L (3.4-5.1); Sodium 135 mmol/L (137-145); Total Protein 7.4 g/dL (6.3-8.2)
[2024-11-21 19:15] LABS: Ketones (Beta-Hydroxybutyrate) 0.07 mmol/L (<0.27)
--- NOTE | 2024-11-21 20:57 | PC.NURSE ---
This RN went into the room to d/c patient and patient states they dont feel good and their abdomen hurts, this RN checks blood sugar and finds it to be 22. Patient is alert enough this RN grabs orange juice and crackers with PB, Dr Sharpe is aware. Patient is currently sitting up eating and drinking, vital signs are otherwise stable
[2024-11-21] MEDS: DEXTROSE 50 % IN WATER 25 GM/50 ML SYRINGE IV (21:32)
== END 2024-11-21 21:52 | disposition home or self-care (01) ==
PROVIDERS: Emergency Provider Family Medicine; Family Provider Nurse Practitioner Family; PCP Family Medicine
DX: K29.70 Gastritis, unspecified, without bleeding (principal); R10.9 Unspecified abdominal pain; R11.2 Nausea with vomiting, unspecified; R19.7 Diarrhea, unspecified
CPT/HCPCS: 74177; 80053; 82009; 82962; 83690; 85025; 96361; 96374; 96375; 99283; 99284; J1200; J1790; J2405; J2470

== ENCOUNTER 2024-12-13 11:55 | Inpatient (IN) | payer OTHER, SELFPAY ==
[2024-10-15 18:35] VITALS: BMI 24.2
[2024-12-13] VITALS (62 sets, daily range): BP systolic 100–172; BP diastolic 61–99; PULSE 93–122; RESP 11–36; TEMP 36.3–37.4; O2SAT 92–100; BMI 24.0
--- NOTE | 2024-12-13 12:01 | EKG_ITS ---
[facility]
--- NOTE | 2024-12-13 12:01 | DI.CT.S_ITS ---
PROCEDURE: CT HEAD/BRAIN WO CON
--- NOTE | 2024-12-13 12:03 | ED_ITS ---
HPI - General Adult
--- NOTE | 2024-12-13 12:03 | ED.GENADULT ---
HPI - General Adult General Chief complaint: Diabetic Problem Stated complaint: Hypoglycemia Time Seen by Provider: 12/13/24 12:01 Source: patient, EMS, RN notes reviewed and old records reviewed Mode of arrival: EMS Limitations: altered mental status History of Present Illness HPI narrative: 34-year-old male history of hypertension, anxiety, hypothyroidism type 1 diabetes with chronic gastroparesis presents with altered mental status hypoglycemia. EMS notes that his glucose was 44 in his monitor they had 60 he received 12.5 g of dextrose. Still has a insulin pump on. His mom had contacted EMS as he was unresponsive but she thought he was having difficulty with breathing. They noted that his eyes were open he has been moving independently but not really following commands and not talking to them. Patient does not follow commands for myself. Mother had told EMS that she has not noted any recent changes that would have exacerbated his issues. Reported allergies to aspirin, hydrocodone and ibuprofen. Related Data Home Medications ?Medication ?Instructions ?Recorded ?Confirmed insulin pump syringe 3 mL 10/04/23 10/16/24 (Extended [place]) metoprolol succinate 50 mg 50 mg PO DAILY 10/22/23 10/16/24 tablet,extended release 24 hr blood sugar diagnostic (True 12/24/23 10/16/24 Metrix Glucose Test Strip) blood-glucose meter (True Metrix 12/24/23 10/16/24 Glucose Meter) lancets 30 gauge (TRUEplus Lancets) 12/24/23 10/16/24 blood-glucose,rating specialist,cont 01/14/24 10/17/24 (Dexcom G6 [facility]) Previous Rx's ?Medication ?Instructions ?Recorded levothyroxine 50 mcg tablet 50 mcg PO DAILY #90 tabs 10/22/23 blood-glucose transmitter (Dexcom #1 ea 01/18/24 G6 Transmitter device) insulin regular human 100 unit/mL See Rx Instructions .Route 02/04/24 injection solution (Humulin R .COMPLEX #10 mL Regular U-100 Insulin) suvorexant 20 mg tablet 20 mg PO BEDTIME PRN insomnia #30 07/12/24 tabs sildenafil 100 mg tablet 100 mg PO DAILY PRN sexual 08/24/24 activity #10 tabs tadalafil 5 mg tablet 5 mg PO DAILY #90 tabs 08/28/24 fluoxetine 40 mg capsule 40 mg PO QAM #30 caps 09/02/25 pantoprazole 40 mg tablet,delayed 40 mg PO DAILY #30 tabs 10/19/24 release (Protonix) prochlorperazine maleate 10 mg 10 mg PO Q6H PRN nausea and 10/19/24 tablet (Compazine) vomiting #120 tabs sucralfate 100 mg/mL oral 10 ml PO QID #420 mL 10/19/24 suspension blood-glucose sensor (Dexcom G6 #3 ea 12/08/24 Sensor device) hydroxyzine HCl 10 mg tablet 10 mg PO 3XD PRN for anxiety #84 12/08/24 tabs hydrocodone 5 mg-acetaminophen 325 1 tab PO TID PRN pain #90 tabs 12/09/24 mg tablet Allergies Allergy/AdvReac Type Severity Reaction Status Date / Time aspirin (ASPIRIN) Allergy Unknown MAKES ME Verified 12/13/24 13:30 GO DEAF hydrocodone (HYDROCODONE) AdvReac Intermediate VOMITING Verified 12/13/24 13:30 ibuprofen (IBUPROFEN) AdvReac Intermediate HURTS Verified 12/13/24 13:30 KIDNEYS Review of Systems Review of Systems ROS Unobtainable: All systems reviewed & are unremarkable except as noted in HPI and below Patient History Medical History Anemia in other chronic diseases classified elsewhere Erectile dysfunction Insomnia Anxiety Migraines Headache Shoulder pain Osteoporosis Cataracts, bilateral Partial blindness GI bleeding Gastroparesis Gastric ulcer Chronic back pain MDD (major depressive disorder), recurrent episode, moderate Generalized anxiety disorder Compression fracture Chronic lower back pain HTN (hypertension) Hypothyroidism Marijuana use History of MRSA infection History of pneumonia Blurry vision, bilateral Diabetic neuropathy Bipolar disorder with depression Nausea and vomiting Diabetes type 1, uncontrolled Diabetic gastroparesis Surgical History No pertinent past surgical history Family History Mother No known health problems Father No known health problems Social History household members: family alcohol intake: never alcohol intake frequency: holidays/special occasions only Alcohol type: hard liquor Exam Narrative Exam Narrative: GEN: Chronically ill-appearing man, alert, nonconversant, does not make eye contact but has not independent movements is not following commands, patient appears to be in moderate to severe distress. HEENT: Atraumatic, pupils are equal round reactive to light, extraocular movements are intact, nares are clear, there is no conjunctival pallor. Throat is clear without any exudates, erythema, tonsillar enlargement or uvular deviation HEART: Tachycardic but regular rate and rhythm without murmur, clicks, rubs. Pulses are equal in upper and lower extremities LUNGS:Lungs clear to auscultation, no wheezes, rales, crackles, chest moves symmetrically, no tachypnea accessory muscle use ABD:bowel sounds normal, soft, nondistended, non-tender, no guarding, rebound, rigidity, no masses noted, no hepatosplenomegaly :No CVA tenderness MSCL: Non-tender, no muscle atrophy, muscles strength 5/5 upper and lower extremities, full range of motion. NEURO:CN 2-12 intact, sensation normal, patient has independent motion, localizes to pain, he is sitting up moving his arms but does not follow commands. No tremors. Initial Vital Signs Initial Vital Signs: Vital Signs Pulse Rate 121 H 12/13/24 11:59 Blood Pressure 169/94 H 12/13/24 11:59 Pulse Oximetry 100 12/13/24 11:59 Course Orders Ordered: ED Orders 12/13/24 12:01 CT head/brain wo con Stat Ammonia (NH3) Stat Blood Culture Stat Complete Blood Count AUTO DIFF Stat Comprehensive Metabolic Panel Stat Ethanol (ETOH) Stat Ketones (Beta-Hydroxybutyrate) Stat Lactate (Lactic Acid) Stat Procalcitonin Stat Troponin & CK Cardiac Panel Stat Urine Drug Screen, Rapid Stat ABG [Arterial Blood Gas] STAT EKG-12 Lead Stat 12/13/24 12:02 Lipase Stat 12/13/24 12:24 CT abdomen pelvis wo con Stat 12/13/24 13:35 XR chest for PICC 1V Stat Acetaminophen Stat Salicylate Stat 12/13/24 15:29 Urine Drug Screen, Rapid Stat Dextrose/Sodium Chloride (Dextrose 5%-0.9% Ns) 1,000 mls @ 100 mls/hr IV CONT XENA Last Infusion: 12/13/24 13:30 Dose: 150 mls/hr Lactated Ringer's (Lactated Ringers) 2,344.62 mls @ 781.54 mls/hr 30 ml/kg infuse over 3 hr (2344.62 ml) IV NOW ONE Stop: 12/13/24 18:01 Last Admin: 12/13/24 15:22 Dose: 781.54 mls/hr Discontinued Medications Lactated Ringer's (Lactated Ringers) 1,000 mls @ 1,000 mls/hr IV BOLUS ONE Stop: 12/13/24 13:01 Last Titration: 12/13/24 14:59 Dose: 0 mls/hr Piperacillin Sod/Tazobactam (Sod 4.5 gm/ Sodium Chloride) 100 mls @ 200 mls/hr IV NOW ONE Stop: 12/13/24 15:03 Last Admin: 12/13/24 15:16 Dose: 200 mls/hr Lorazepam (Lorazepam 2 Mg/Ml Inj) 1 mg IV NOW ONE Stop: 12/13/24 12:28 Last Admin: 12/13/24 12:34 Dose: 1 mg Ondansetron HCl (Ondansetron 4 Mg/2 Ml Inj) 4 mg IV NOW ONE Stop: 12/13/24 12:18 Last Admin: 12/13/24 12:20 Dose: 4 mg Vital Signs Vital signs: Vital Signs - 8 hr 12/13/24 11:59 12/13/24 11:59 12/13/24 12:00 Temperature Pulse Rate 121 H 122 H Respiratory Rate Blood Pressure 169/94 H Blood Pressure [Right Arm] Pulse Oximetry 100 100 Oxygen Delivery Method 12/13/24 12:02 12/13/24 12:07 12/13/24 12:07 Temperature 97.3 F L Pulse Rate 121 H 119 H Respiratory Rate 24 25 H Blood Pressure 169/94 H 172/96 H Blood Pressure [Right Arm] Pulse Oximetry 100 100 Oxygen Delivery Method Room Air 12/13/24 12:30 12/13/24 12:54 12/13/24 12:54 Temperature Pulse Rate 116 H 119 H Respiratory Rate 21 23 Blood Pressure 131/71 Blood Pressure [Right Arm] Pulse Oximetry 100 99 Oxygen Delivery Method 12/13/24 12:54 12/13/24 12:56 12/13/24 12:56 Temperature Pulse Rate 119 H 116 H Respiratory Rate 23 26 H Blood Pressure 143/82 H Blood Pressure [Right Arm] 131/71 Pulse Oximetry 99 99 Oxygen Delivery Method Room Air 12/13/24 12:56 12/13/24 13:00 12/13/24 13:01 Temperature Pulse Rate 116 H 118 H 119 H Respiratory Rate 26 H 30 H 19 Blood Pressure Blood Pressure [Right Arm] 143/82 H Pulse Oximetry 99 100 99 Oxygen Delivery Method Room Air Room Air 12/13/24 13:01 12/13/24 13:01 12/13/24 13:14 Temperature Pulse Rate 120 H 120 H Respiratory Rate 32 H 32 H Blood Pressure 112/83 Blood Pressure [Right Arm] 112/83 Pulse Oximetry 100 100 Oxygen Delivery Method Room Air 12/13/24 13:14 12/13/24 13:14 12/13/24 13:18 Temperature Pulse Rate Respiratory Rate Blood Pressure 118/87 135/77 Blood Pressure [Right Arm] 118/87 Pulse Oximetry Oxygen Delivery Method 12/13/24 13:18 12/13/24 13:18 12/13/24 13:20 Temperature Pulse Rate 118 H 118 H 118 H Respiratory Rate 27 H 27 H 26 H Blood Pressure Blood Pressure [Right Arm] Pulse Oximetry 100 100 100 Oxygen Delivery Method Room Air 12/13/24 13:20 12/13/24 13:20 12/13/24 13:26 Temperature Pulse Rate Respiratory Rate Blood Pressure 122/61 137/92 H Blood Pressure [Right Arm] 122/61 Pulse Oximetry Oxygen Delivery Method 12/13/24 13:26 12/13/24 13:26 12/13/24 13:30 Temperature Pulse Rate 112 H 112 H Respiratory Rate 25 H 26 H Blood Pressure 139/90 Blood Pressure [Right Arm] Pulse Oximetry 99 99 Oxygen Delivery Method Room Air 12/13/24 13:30 12/13/24 13:30 12/13/24 13:41 Temperature Pulse Rate 119 H 119 H Respiratory Rate 36 H 36 H Blood Pressure 129/73 Blood Pressure [Right Arm] 139/90 Pulse Oximetry 100 100 Oxygen Delivery Method Room Air 12/13/24 13:41 12/13/24 13:41 12/13/24 13:46 Temperature Pulse Rate 117 H 117 H 119 H Respiratory Rate 21 21 22 Blood Pressure Blood Pressure [Right Arm] 129/73 Pulse Oximetry 100 100 100 Oxygen Delivery Method Room Air 12/13/24 13:46 12/13/24 13:55 12/13/24 13:55 Temperature Pulse Rate 111 H Respiratory Rate 25 H Blood Pressure 148/67 H 154/85 H Blood Pressure [Right Arm] Pulse Oximetry Oxygen Delivery Method 12/13/24 14:00 12/13/24 14:01 12/13/24 14:01 Temperature Pulse Rate 105 H 105 H Respiratory Rate 12 13 Blood Pressure 135/73 Blood Pressure [Right Arm] Pulse Oximetry 92 95 Oxygen Delivery Method Room Air 12/13/24 14:05 12/13/24 14:05 12/13/24 14:10 Temperature Pulse Rate 108 H Respiratory Rate 13 Blood Pressure 129/76 129/76 Blood Pressure [Right Arm] Pulse Oximetry 96 Oxygen Delivery Method 12/13/24 14:10 12/13/24 14:16 12/13/24 14:16 Temperature Pulse Rate 112 H 114 H Respiratory Rate 16 17 Blood Pressure 100/69 Blood Pressure [Right Arm] Pulse Oximetry 97 98 Oxygen Delivery Method 12/13/24 14:20 12/13/24 14:20 12/13/24 14:25 Temperature Pulse Rate 110 H 111 H Respiratory Rate 18 16 Blood Pressure 141/81 H Blood Pressure [Right Arm] Pulse Oximetry 97 99 Oxygen Delivery Method 12/13/24 14:25 12/13/24 14:30 12/13/24 14:30 Temperature Pulse Rate 109 H Respiratory Rate 16 Blood Pressure 139/84 134/86 Blood Pressure [Right Arm] Pulse Oximetry 97 Oxygen Delivery Method 12/13/24 14:35 12/13/24 14:35 12/13/24 14:40 Temperature Pulse Rate 110 H Respiratory Rate 17 Blood Pressure 137/76 137/77 Blood Pressure [Right Arm] Pulse Oximetry 98 Oxygen Delivery Method 12/13/24 14:40 12/13/24 14:46 12/13/24 14:46 Temperature Pulse Rate 110 H 111 H Respiratory Rate 16 19 Blood Pressure 126/89 Blood Pressure [Right Arm] Pulse Oximetry 98 97 Oxygen Delivery Method Room Air 12/13/24 14:50 12/13/24 14:50 12/13/24 14:56 Temperature Pulse Rate 109 H 110 H Respiratory Rate 15 17 Blood Pressure 132/86 Blood Pressure [Right Arm] Pulse Oximetry 97 98 Oxygen Delivery Method 12/13/24 14:56 12/13/24 15:00 12/13/24 15:00 Temperature Pulse Rate 108 H Respiratory Rate 15 Blood Pressure 129/82 125/80 Blood Pressure [Right Arm] Pulse Oximetry 98 Oxygen Delivery Method 12/13/24 15:05 12/13/24 15:05 12/13/24 15:10 Temperature Pulse Rate 103 H 103 H Respiratory Rate 19 18 Blood Pressure 114/70 Blood Pressure [Right Arm] Pulse Oximetry 97 97 Oxygen Delivery Method 12/13/24 15:10 12/13/24 15:15 12/13/24 15:15 Temperature Pulse Rate 116 H Respiratory Rate 26 H Blood Pressure 116/73 113/83 Blood Pressure [Right Arm] Pulse Oximetry 97 Oxygen Delivery Method 12/13/24 15:20 12/13/24 15:20 12/13/24 15:26 Temperature Pulse Rate 115 H Respiratory Rate 12 Blood Pressure 107/66 136/75 Blood Pressure [Right Arm] Pulse Oximetry 96 Oxygen Delivery Method 12/13/24 15:26 Temperature Pulse Rate 112 H Respiratory Rate 15 Blood Pressure Blood Pressure [Right Arm] Pulse Oximetry 97 Oxygen Delivery Method Room Air Medical Decision Making Lab Data 12/13/24 13:35 12/13/24 13:35 Labs: Lab Results 12/13/24 12/13/24 12/13/24 Range/Units 12:11 12:43 12:45 WBC (4.5-11.0) X10^3/uL RBC (4.5-5.9) X10^6/uL Hgb (13.5-17.5) g/dL Hct (41-53) % MCV (80-100) fL MCH (26-34) PG MCHC (30-36) % RDW (11.6-14.8) % Plt Count (150-400) X10^3/uL Neut % (Auto) (50-75) % Lymph % (Auto) (25-40) % [place] % (Auto) (3-14) % Eos % (Auto) (2-4) % Baso % (Auto) (0-2) % Neut # (Auto) (8282-5654) /uL Lymph # (Auto) (2536-8781) /uL [place] # (Auto) (0-900) /uL Eos # (Auto) (0-450) /uL Baso # (Auto) (0-100) /uL ABG Sample Site ABG pH (7.35-7.45) ABG pCO2 (35-45) mmHg ABG pO2 (80-100) mmHg ABG HCO3 (23-27) mmol/L ABG Total CO2 (23-27) mmol/L ABG O2 Saturation (95-100) % ABG Base Excess (-2-3) mmol/L Kiran Test Sodium (137-145) mmol/L Potassium (3.4-5.1) mmol/L Chloride (98-107) mmol/L Carbon Dioxide (22-32) mmol/L BUN (9-20) mg/dL Creatinine (0.66-1.25) mg/dL Estimated GFR (>60) mL/min BUN/Creatinine Ratio (6-22) Glucose (70-99) mg/dL POC Whole Bld Glucose 95 84 (70-99) mg/dL Lactate (0.7-2.1) mmol/L Calcium (8.4-10.2) mg/dL Total Bilirubin (0.2-1.3) mg/dL AST (17-59) IU/L ALT (<50) IU/L Alkaline Phosphatase (38-126) U/L Ammonia 17 (9-30) umol/L Total Creatine Kinase (55-170) U/L Troponin I (0.01-0.034) ng/mL Total Protein (6.3-8.2) g/dL Albumin (3.5-5.0) g/dL Globulin (1.7-4.1) g/dL Albumin/Globulin Ratio (1.0-2.8) Lipase (23-300) U/L Procalcitonin (<0.5) ng/mL Ethyl Alcohol (<10) mg/dL Ketones (<0.27) mmol/L 12/13/24 12/13/24 12/13/24 Range/Units 13:01 13:09 13:22 WBC (4.5-11.0) X10^3/uL RBC (4.5-5.9) X10^6/uL Hgb (13.5-17.5) g/dL Hct (41-53) % MCV (80-100) fL MCH (26-34) PG MCHC (30-36) % RDW (11.6-14.8) % Plt Count (150-400) X10^3/uL Neut % (Auto) (50-75) % Lymph % (Auto) (25-40) % [place] % (Auto) (3-14) % Eos % (Auto) (2-4) % Baso % (Auto) (0-2) % Neut # (Auto) (1377-0945) /uL Lymph # (Auto) (3814-7098) /uL [place] # (Auto) (0-900) /uL Eos # (Auto) (0-450) /uL Baso # (Auto) (0-100) /uL ABG Sample Site Right radial ABG pH 7.67 H* (7.35-7.45) ABG pCO2 15.9 L* (35-45) mmHg ABG pO2 109 H (80-100) mmHg ABG HCO3 18 L (23-27) mmol/L ABG Total CO2 17 L (23-27) mmol/L ABG O2 Saturation 99 (95-100) % ABG Base Excess 0.2 (-2-3) mmol/L Kiran Test N/a Sodium (137-145) mmol/L Potassium (3.4-5.1) mmol/L Chloride (98-107) mmol/L Carbon Dioxide (22-32) mmol/L BUN (9-20) mg/dL Creatinine (0.66-1.25) mg/dL Estimated GFR (>60) mL/min BUN/Creatinine Ratio (6-22) Glucose (70-99) mg/dL POC Whole Bld Glucose 81 78 (70-99) mg/dL Lactate (0.7-2.1) mmol/L Calcium (8.4-10.2) mg/dL Total Bilirubin (0.2-1.3) mg/dL AST (17-59) IU/L ALT (<50) IU/L Alkaline Phosphatase (38-126) U/L Ammonia (9-30) umol/L Total Creatine Kinase (55-170) U/L Troponin I (0.01-0.034) ng/mL Total Protein (6.3-8.2) g/dL Albumin (3.5-5.0) g/dL Globulin (1.7-4.1) g/dL Albumin/Globulin Ratio (1.0-2.8) Lipase (23-300) U/L Procalcitonin (<0.5) ng/mL Ethyl Alcohol (<10) mg/dL Ketones (<0.27) mmol/L 12/13/24 12/13/24 12/13/24 Range/Units 13:35 13:46 14:05 WBC 14.9 H (4.5-11.0) X10^3/uL RBC 4.56 (4.5-5.9) X10^6/uL Hgb 12.2 L (13.5-17.5) g/dL Hct 36.4 L (41-53) % MCV 79.8 L (80-100) fL MCH 26.7 (26-34) PG MCHC 33.5 (30-36) % RDW 14.2 (11.6-14.8) % Plt Count 281 (150-400) X10^3/uL Neut % (Auto) 87.9 H (50-75) % Lymph % (Auto) 5.5 L (25-40) % [place] % (Auto) 6.2 (3-14) % Eos % (Auto) 0.0 L (2-4) % Baso % (Auto) 0.4 (0-2) % Neut # (Auto) 66542 H (5351-2899) /uL Lymph # (Auto) 800 L (3525-3796) /uL [place] # (Auto) 900 (0-900) /uL Eos # (Auto) 0 (0-450) /uL Baso # (Auto) 100 (0-100) /uL ABG Sample Site ABG pH (7.35-7.45) ABG pCO2 (35-45) mmHg ABG pO2 (80-100) mmHg ABG HCO3 (23-27) mmol/L ABG Total CO2 (23-27) mmol/L ABG O2 Saturation (95-100) % ABG Base Excess (-2-3) mmol/L Kiran Test Sodium 137 (137-145) mmol/L Potassium 3.9 (3.4-5.1) mmol/L Chloride 105 (98-107) mmol/L Carbon Dioxide 22 (22-32) mmol/L BUN 19 (9-20) mg/dL Creatinine 1.03 (0.66-1.25) mg/dL Estimated GFR > 60 (>60) mL/min BUN/Creatinine Ratio 18.4 (6-22) Glucose 95 (70-99) mg/dL POC Whole Bld Glucose 94 (70-99) mg/dL Lactate 2.2 H (0.7-2.1) mmol/L Calcium 8.8 (8.4-10.2) mg/dL Total Bilirubin 0.4 (0.2-1.3) mg/dL AST 28 (17-59) IU/L ALT 20 (<50) IU/L Alkaline Phosphatase 73 (38-126) U/L Ammonia (9-30) umol/L Total Creatine Kinase 160 (55-170) U/L Troponin I < 0.012 (0.01-0.034) ng/mL Total Protein 7.3 (6.3-8.2) g/dL Albumin 4.3 (3.5-5.0) g/dL Globulin 3.0 (1.7-4.1) g/dL Albumin/Globulin Ratio 1.4 (1.0-2.8) Lipase 41 (23-300) U/L Procalcitonin 0.032 (<0.5) ng/mL Ethyl Alcohol < 10 (<10) mg/dL Ketones 0.28 H (<0.27) mmol/L 12/13/24 12/13/24 Range/Units 14:19 15:15 WBC (4.5-11.0) X10^3/uL RBC (4.5-5.9) X10^6/uL Hgb (13.5-17.5) g/dL Hct (41-53) % MCV (80-100) fL MCH (26-34) PG MCHC (30-36) % RDW (11.6-14.8) % Plt Count (150-400) X10^3/uL Neut % (Auto) (50-75) % Lymph % (Auto) (25-40) % [place] % (Auto) (3-14) % Eos % (Auto) (2-4) % Baso % (Auto) (0-2) % Neut # (Auto) (4415-0691) /uL Lymph # (Auto) (0959-3455) /uL [place] # (Auto) (0-900) /uL Eos # (Auto) (0-450) /uL Baso # (Auto) (0-100) /uL ABG Sample Site ABG pH (7.35-7.45) ABG pCO2 (35-45) mmHg ABG pO2 (80-100) mmHg ABG HCO3 (23-27) mmol/L ABG Total CO2 (23-27) mmol/L ABG O2 Saturation (95-100) % ABG Base Excess (-2-3) mmol/L Kiran Test Sodium (137-145) mmol/L Potassium (3.4-5.1) mmol/L Chloride (98-107) mmol/L Carbon Dioxide (22-32) mmol/L BUN (9-20) mg/dL Creatinine (0.66-1.25) mg/dL Estimated GFR (>60) mL/min BUN/Creatinine Ratio (6-22) Glucose (70-99) mg/dL POC Whole Bld Glucose 105 H 102 H (70-99) mg/dL Lactate (0.7-2.1) mmol/L Calcium (8.4-10.2) mg/dL Total Bilirubin (0.2-1.3) mg/dL AST (17-59) IU/L ALT (<50) IU/L Alkaline Phosphatase (38-126) U/L Ammonia (9-30) umol/L Total Creatine Kinase (55-170) U/L Troponin I (0.01-0.034) ng/mL Total Protein (6.3-8.2) g/dL Albumin (3.5-5.0) g/dL Globulin (1.7-4.1) g/dL Albumin/Globulin Ratio (1.0-2.8) Lipase (23-300) U/L Procalcitonin (<0.5) ng/mL Ethyl Alcohol (<10) mg/dL Ketones (<0.27) mmol/L Point of Care Testing Glucose POC 102 Point of care testing: Point of Care Testing Glucose POC 102 [facility] Narrative Medical decision making narrative: Labs show white count of 14.9 increased from priors, hemoglobin is 12.2 this appears consistent with priors platelets are 281, predominance of neutrophils. Chemistries are appropriate, BUN and creatinine are normal, I lactate is 2.2 serum glucose is 105 this is after patient was put on dextrose drip. LFTs are normal troponins less than 0.012 with a CK of 160 procalcitonin 0.32. Ketones are 0.28, ETOH is less than 10. EKG Head CT, non-con head CT is limited but without acute jigna intracranial abnormality. Chest x-ray, tip of pick projects to the area of the SVC. CT abdomen pelvis shows no findings of small rock seen, no dilated loops of bowel can be seen, prominent stool seen within the rectum remote stable L1 anterior wedge deformity. Urine ABG ABG shows respiratory alkalosis with secondary metabolic alkalosis, pH of 7.67 pCO2 of 50.9 PO2 of 109 bicarb of 18 this is on room air prior to fluids Patient received fluids. Dextrose drip was initiated as patient is glucose continued to drop despite insulin pump being off. Patient also received Zofran and lorazepam. Patient's insulin pump was removed. Patient did have a period of soft restraints but these have since has been removed. Sepsis is on differential for alkalosis so was given 30 cc/kilos bolus as patient is still little bit tachycardic also covered with a dose of IV antibiotics. Patient did have 1 episode of emesis that was brownish discoloration. Nursing noted something that looked like rocks that patient threw up. They do have a sample here in the department. Spoke with Dr. Glasgow for admission for hypoglycemia, respiratory/metabolic alkalosis, vomiting. Did discuss respiratory alkalosis we will add on Tylenol and salicylate. Plan for admit to ICU. Still needs urine sample he asked for drug screen to be added on as well. Critical Care Time Critical Care Time Critical Care Time: Yes Total Critical Care Time: 50 Attestation: The high probability of a clinically significant, sudden or life threatening deterioration of the cardiac, pulmonary, endocrine system(s) required my full and direct attention, intervention and personal management. The aggregate critical care time was [--] minutes. This time is in addition to time spent performing reported procedures but includes the following: [x] Data Review and interpretation [x] Patient assessment and monitoring of vital signs [x] Documentation [x] Medication orders and management Discharge Plan Departure Patient Disposition: Admitted As Inpatient Clinical Impression: Hypoglycemia, Respiratory alkalosis with metabolic alkalosis
[2024-12-13] MEDS: ONDANSETRON 4 MG/2 ML INJ IV (12:20)
--- NOTE | 2024-12-13 12:24 | DI.CT.S_ITS ---
PROCEDURE: CT ABDOMEN PELVIS WO CON
--- NOTE | 2024-12-13 12:45 | PC.NURSE ---
Provider Lupis made aware that patient US guided IV no longer working. Provider Bertink request PICC line. This RN notifies Barbie with diagnostic imaging.
--- NOTE | 2024-12-13 12:49 | PC.NURSE ---
Patient moving in bed and hard to reorient.
[2024-12-13] MEDS: DEXTROSE 5%-0.9% NS 1,000 ML 100 ML IV (12:55)
--- NOTE | 2024-12-13 13:00 | PC.NURSE ---
1240: Patient pulling at lines, including the ankle IV. Multiple attempts to re-orient and distract patient, but he continues to pull at IV lines and tele leads. Provider Lupis made aware and soft-restraints initiated at 1254. RN Barbie at bedside, RN Sushma, RT Mike at bedside, smash piecer Katie and this RN at bedside.
--- NOTE | 2024-12-13 13:04 | PC.NURSE ---
Patient respirations increased and stating please, please multiple times. This RN asks patient questions and he is unable to answer. Asked if patient in any pain and he does not answer. Intermittently states please. Patient remains diaphoretic.
[2024-12-13 13:05] LABS: Ammonia (NH3) 17 umol/L (9-30)
--- NOTE | 2024-12-13 13:11 | PC.NURSE ---
1311: Patient increasingly attempting to grab at shirt, lines even while in soft restraints. Asked patient his name and he does not respond. Eyes open. Patient remains diaphoretic. 5% Dextrose and 09.% sodium chloride running as per MAR in LEFT ankle. Multiple nurses and aids encourage and redirect. SARAH Manzo begins PICC line placement.
[2024-12-13 13:15] LABS: Blood Gas Collection Site Right Radial; HCO3 ABG 18 mmol/L (23-27); Oxygen Saturation ABG 99 % (95-100); PCO2 ABG 15.9 mmHg (35-45); PO2 ABG 109 mmHg (80-100); TCO2 ABG 17 mmol/L (23-27)
--- NOTE | 2024-12-13 13:35 | DI.RAD.S_ITS ---
PROCEDURE: XR CHEST FOR PICC 1V
--- NOTE | 2024-12-13 13:41 | PC.NURSE ---
1330: Provider Lupis made aware of patient blood sugar of 78. Verbal direction to increase 5% Dextrose & 0.9% sodium chloride to 150mls/hr. Increased as per APR. Provider Lupis also made aware of patient continued presentation of being diaphoretic and not responding to verbal questions. Provider also made aware unable to hang Lactated Ringer due to fragiliness of 22G foot IV. As soon as PICC line established then Lactated Ringer will begin. Provider aware and OK to give once PICC line in place. 1344: SARAH Valentin finishing PICC line placement. X-ray taken to confirm placement. Blood sugar checked and is 94 at 1346.
[2024-12-13 13:51] LABS: Add Manual Diff / Slide Review NO; Hematocrit 36.4 % (41-53); Hemoglobin 12.2 g/dL (13.5-17.5); Lymphocytes Absolute Auto 800 /uL (1100-4500); Mean Corpuscular HGB Conc 33.5 % (30-36); Mean Corpuscular Hemoglobin 26.7 PG (26-34); Mean Corpuscular Volume 79.8 fL (80-100); Platelet Count 281 X10^3/uL (150-400)
[2024-12-13 13:54] LABS: Lipase 41 U/L (23-300)
[2024-12-13 13:55] LABS: Alanine Aminotransferase 20 IU/L (<50); Albumin 4.3 g/dL (3.5-5.0); Albumin Globulin Ratio 1.4 (1.0-2.8); Alkaline Phosphatase 73 U/L (38-126); Blood Urea Nitrogen 19 mg/dL (9-20); Calcium 8.8 mg/dL (8.4-10.2); Carbon Dioxide 22 mmol/L (22-32); Chloride 105 mmol/L (98-107); Creatine Kinase 160 U/L (55-170); Estimated Glomerular Filt Rate > 60 mL/min (>60); Globulin 3.0 g/dL (1.7-4.1); Glucose 95 mg/dL (70-99); HEMOLYSIS < 15 (0-50); Potassium 3.9 mmol/L (3.4-5.1); Sodium 137 mmol/L (137-145); Total Protein 7.3 g/dL (6.3-8.2)
[2024-12-13] MEDS: LACTATED RINGERS 1,000 ML 1000 ML IV (13:59)
--- NOTE | 2024-12-13 13:59 | PC.NURSE ---
1354: Patient released from soft restraints. At this moment patient not pulling at lines or attempting to. Verbal encouragement to not pull at lines working at this time. Patient rolls over to his side and places a blanket on his head.
[2024-12-13 14:01] LABS: Ketones (Beta-Hydroxybutyrate) 0.28 mmol/L (<0.27)
[2024-12-13 14:03] LABS: Ethanol (ETOH) < 10 mg/dL (<10)
[2024-12-13 14:08] LABS: Troponin I < 0.012 ng/mL (0.01-0.034)
[2024-12-13 14:13] LABS: Procalcitonin 0.032 ng/mL (<0.5)
[2024-12-13 14:30] LABS: Lactate (Lactic Acid) 2.2 mmol/L (0.7-2.1)
--- NOTE | 2024-12-13 14:38 | PC.NURSE ---
12:15 Patient vomits dark colored emesis on him and floor. Suctions set up at bedside. Rocks found in emesis. Provider Lupis made aware.
[2024-12-13] MEDS: PIPERACILLIN/TAZO 4.5 GM in SODIUM CHLORIDE 0.9% 100 ML IV (15:16)
[2024-12-13] MEDS: LACTATED RINGERS 781.54 ML IV (15:22)
--- NOTE | 2024-12-13 15:31 | P.HP_ITS ---
History of Present Illness
--- NOTE | 2024-12-13 15:31 | PM.HP.1 ---
History of Present Illness History of Present Illness Chief complaint: Hypoglycemia Narrative: Chief complaint: Severe prolonged hypoglycemia with respiratory alkalosis and encephalopathy in brittle type 1 diabetic History of present illness: 12/13: 34-year-old male history of hypertension, anxiety, hypothyroidism type 1 diabetes with chronic gastroparesis presents with altered mental status hypoglycemia. EMS notes that his glucose was 44 in his monitor they had 60 he received 12.5 g of dextrose. Still has a insulin pump on. His mom had contacted EMS as he was unresponsive but she thought he was having difficulty with breathing. They noted that his eyes were open he has been moving independently but not really following commands and not talking to them. Patient does not follow commands for myself. Mother had told EMS that she has not noted any recent changes that would have exacerbated his issues. Findings in the emergency room significant for: ABG pH 7.67 pCO2 15 White count 15 88% neutrophils Sodium 137 potassium 3.9 BUN 22 creatinine 1.03 ketones 0.[address] of the chest abdomen and pelvis negative CT of the head no acute changes and chest x-ray clear Review of systems: Unable to participate nonverbal Physical exam: Nonverbal vegetative appearing obese male HEENT no bite teran on the tongue to suggest seizures no bruising on arms legs or abdomen Heart sounds distant no murmurs Lungs clear Abdomen nondistended scant to no bowel sounds Extremities no edema Moves all extremities Does not follow commands Assessment and plan: 1. Severe prolonged hypoglycemia possibly related to insulin overdose in setting of insulin pump with hyperventilation in a diabetic that also is taking beta-blockers. Experimental data show that hypoglycemia induced hypoventilation is mediated by epinephrine acting on the carotid body and blocking adrenergic receptors abolished this effect however literature search also cautions that beta-blockers may exacerbate ventilation-metabolism mismatch during hypoglycemia potentially worsening acid-base disturbances leading to High PaCO2 and can increase the risk of severe or prolonged hypoglycemia Agree with fluid resuscitation done in the emergency department and intravenous dextrose Repeat ABG now and in 6 hours Fingerstick glucose q.2 hours Serum ketones q.6 hours Resume insulin with basal bolus starting tomorrow Basic metabolic profile q.6 hours Seizure precautions 2. Type 1 diabetes -continuous IV dextrose and when glucose starts to rise begin basal bolus insulin to prevent slipping into DKA 3. Gastroparesis and vomiting, present on admission and active. -recurrent problem different trial of antiemetic 4. Depression and possibe bipolar disorder, present on admission and active. - Prozac, hydroxyzine, lorazepam 5. Hypothyroidism, present on admission and active. - levothyroxine 6. GERD, present on admission and active. - recent minor hematemesis from gastritis - PPI bid 7. HTN, present on admission and active. Discontinue metoprolol 8. CKD, present on admission and active. 9. DVT prophylaxis: Subcutaneous heparin Code status: Full code Disposition: Inpatient ICU care patient will probably need 3 days perhaps longer to stabilize his metabolic condition Time based billin minutes were involved in management this patient including [id number] evaluation review of objective laboratory and imaging findings literature research on the topic of hypoglycemia and hyperventilation discussion with emergency room provider and discussion with care management team FORMERLY [facility], [facility] Medical History Anemia in other chronic diseases classified elsewhere Erectile dysfunction Insomnia Anxiety Migraines Headache Shoulder pain Osteoporosis Cataracts, bilateral Partial blindness GI bleeding Gastroparesis Gastric ulcer Chronic back pain MDD (major depressive disorder), recurrent episode, moderate Generalized anxiety disorder Compression fracture Chronic lower back pain HTN (hypertension) Hypothyroidism Marijuana use History of MRSA infection History of pneumonia Blurry vision, bilateral Diabetic neuropathy Bipolar disorder with depression Nausea and vomiting Diabetes type 1, uncontrolled Diabetic gastroparesis Surgical History No pertinent past surgical history Family History Mother No known health problems Father No known health problems Social History household members: family alcohol intake: never Meds Home Medications and Allergies Home Medications ?Medication ?Instructions ?Recorded ?Confirmed ?Type insulin pump syringe 3 mL 10/04/23 10/16/24 History (Extended [place]) levothyroxine 50 mcg tablet 50 mcg PO DAILY #90 tabs 10/22/23 10/16/24 Rx metoprolol succinate 50 mg 50 mg PO DAILY 10/22/23 10/16/24 History tablet,extended release 24 hr blood sugar diagnostic (True 12/24/23 10/16/24 History Metrix Glucose Test Strip) blood-glucose meter (True Metrix 12/24/23 10/16/24 History Glucose Meter) lancets 30 gauge (TRUEplus Lancets) 12/24/23 10/16/24 History blood-glucose,dam worker,cont 01/14/24 10/17/24 History (Dexcom G6 [employer]) blood-glucose transmitter (Dexcom #1 ea 01/18/24 10/17/24 Rx G6 Transmitter device) insulin regular human 100 unit/mL See Rx Instructions .Route 02/04/24 10/16/24 Rx injection solution (Humulin R .COMPLEX #10 mL Regular U-100 Insulin) suvorexant 20 mg tablet 20 mg PO BEDTIME PRN insomnia #30 07/12/24 10/16/24 Rx tabs sildenafil 100 mg tablet 100 mg PO DAILY PRN sexual 08/24/24 10/16/24 Rx activity #10 tabs tadalafil 5 mg tablet 5 mg PO DAILY #90 tabs 08/28/24 10/16/24 Rx fluoxetine 40 mg capsule 40 mg PO QAM #30 caps 10/10/24 10/16/24 Rx pantoprazole 40 mg tablet,delayed 40 mg PO DAILY #30 tabs 10/19/24 Rx release (Protonix) prochlorperazine maleate 10 mg 10 mg PO Q6H PRN nausea and 10/19/24 Rx tablet (Compazine) vomiting #120 tabs sucralfate 100 mg/mL oral 10 ml PO QID #420 mL 10/19/24 Rx suspension blood-glucose sensor (Dexcom G6 #3 ea 12/08/24 Rx Sensor device) hydroxyzine HCl 10 mg tablet 10 mg PO 3XD PRN for anxiety #84 12/08/24 Rx tabs hydrocodone 5 mg-acetaminophen 325 1 tab PO TID PRN pain #90 tabs 12/09/24 Rx mg tablet Allergies Allergy/AdvReac Type Severity Reaction Status Date / Time aspirin (ASPIRIN) Allergy Unknown MAKES ME Verified 12/13/24 13:30 GO DEAF hydrocodone (HYDROCODONE) AdvReac Intermediate VOMITING Verified 12/13/24 13:30 ibuprofen (IBUPROFEN) AdvReac Intermediate HURTS Verified 12/13/24 13:30 KIDNEYS Exam Vital Signs (past 8 hours): - 12/13/24 11:59 12/13/24 11:59 12/13/24 12:00 Temperature Pulse Rate 121 H 122 H Respiratory Rate Blood Pressure 169/94 H Blood Pressure [Right Arm] Pulse Oximetry 100 100 Oxygen Delivery Method 12/13/24 12:02 12/13/24 12:07 12/13/24 12:07 Temperature 97.3 F L Pulse Rate 121 H 119 H Respiratory Rate 24 25 H Blood Pressure 169/94 H 172/96 H Blood Pressure [Right Arm] Pulse Oximetry 100 100 Oxygen Delivery Method Room Air 12/13/24 12:30 12/13/24 12:54 12/13/24 12:54 Temperature Pulse Rate 116 H 119 H Respiratory Rate 21 23 Blood Pressure 131/71 Blood Pressure [Right Arm] Pulse Oximetry 100 99 Oxygen Delivery Method 12/13/24 12:54 12/13/24 12:56 12/13/24 12:56 Temperature Pulse Rate 119 H 116 H Respiratory Rate 23 26 H Blood Pressure 143/82 H Blood Pressure [Right Arm] 131/71 Pulse Oximetry 99 99 Oxygen Delivery Method Room Air 12/13/24 12:56 12/13/24 13:00 12/13/24 13:01 Temperature Pulse Rate 116 H 118 H 119 H Respiratory Rate 26 H 30 H 19 Blood Pressure Blood Pressure [Right Arm] 143/82 H Pulse Oximetry 99 100 99 Oxygen Delivery Method Room Air Room Air 12/13/24 13:01 12/13/24 13:01 12/13/24 13:14 Temperature Pulse Rate 120 H 120 H Respiratory Rate 32 H 32 H Blood Pressure 112/83 Blood Pressure [Right Arm] 112/83 Pulse Oximetry 100 100 Oxygen Delivery Method Room Air 12/13/24 13:14 12/13/24 13:14 12/13/24 13:18 Temperature Pulse Rate Respiratory Rate Blood Pressure 118/87 135/77 Blood Pressure [Right Arm] 118/87 Pulse Oximetry Oxygen Delivery Method 12/13/24 13:18 12/13/24 13:18 12/13/24 13:20 Temperature Pulse Rate 118 H 118 H 118 H Respiratory Rate 27 H 27 H 26 H Blood Pressure Blood Pressure [Right Arm] Pulse Oximetry 100 100 100 Oxygen Delivery Method Room Air 12/13/24 13:20 12/13/24 13:20 12/13/24 13:26 Temperature Pulse Rate Respiratory Rate Blood Pressure 122/61 137/92 H Blood Pressure [Right Arm] 122/61 Pulse Oximetry Oxygen Delivery Method 12/13/24 13:26 12/13/24 13:26 12/13/24 13:30 Temperature Pulse Rate 112 H 112 H Respiratory Rate 25 H 26 H Blood Pressure 139/90 Blood Pressure [Right Arm] Pulse Oximetry 99 99 Oxygen Delivery Method Room Air 12/13/24 13:30 12/13/24 13:30 12/13/24 13:41 Temperature Pulse Rate 119 H 119 H Respiratory Rate 36 H 36 H Blood Pressure 129/73 Blood Pressure [Right Arm] 139/90 Pulse Oximetry 100 100 Oxygen Delivery Method Room Air 12/13/24 13:41 12/13/24 13:41 12/13/24 13:46 Temperature Pulse Rate 117 H 117 H 119 H Respiratory Rate 21 21 22 Blood Pressure Blood Pressure [Right Arm] 129/73 Pulse Oximetry 100 100 100 Oxygen Delivery Method Room Air 12/13/24 13:46 12/13/24 13:55 12/13/24 13:55 Temperature Pulse Rate 111 H Respiratory Rate 25 H Blood Pressure 148/67 H 154/85 H Blood Pressure [Right Arm] Pulse Oximetry Oxygen Delivery Method 12/13/24 14:00 12/13/24 14:01 12/13/24 14:01 Temperature Pulse Rate 105 H 105 H Respiratory Rate 12 13 Blood Pressure 135/73 Blood Pressure [Right Arm] Pulse Oximetry 92 95 Oxygen Delivery Method Room Air 12/13/24 14:05 12/13/24 14:05 12/13/24 14:10 Temperature Pulse Rate 108 H Respiratory Rate 13 Blood Pressure 129/76 129/76 Blood Pressure [Right Arm] Pulse Oximetry 96 Oxygen Delivery Method 12/13/24 14:10 12/13/24 14:16 12/13/24 14:16 Temperature Pulse Rate 112 H 114 H Respiratory Rate 16 17 Blood Pressure 100/69 Blood Pressure [Right Arm] Pulse Oximetry 97 98 Oxygen Delivery Method 12/13/24 14:20 12/13/24 14:20 12/13/24 14:25 Temperature Pulse Rate 110 H 111 H Respiratory Rate 18 16 Blood Pressure 141/81 H Blood Pressure [Right Arm] Pulse Oximetry 97 99 Oxygen Delivery Method 12/13/24 14:25 12/13/24 14:30 12/13/24 14:30 Temperature Pulse Rate 109 H Respiratory Rate 16 Blood Pressure 139/84 134/86 Blood Pressure [Right Arm] Pulse Oximetry 97 Oxygen Delivery Method 12/13/24 14:35 12/13/24 14:35 12/13/24 14:40 Temperature Pulse Rate 110 H Respiratory Rate 17 Blood Pressure 137/76 137/77 Blood Pressure [Right Arm] Pulse Oximetry 98 Oxygen Delivery Method 12/13/24 14:40 12/13/24 14:46 12/13/24 14:46 Temperature Pulse Rate 110 H 111 H Respiratory Rate 16 19 Blood Pressure 126/89 Blood Pressure [Right Arm] Pulse Oximetry 98 97 Oxygen Delivery Method Room Air 12/13/24 14:50 12/13/24 14:50 12/13/24 14:56 Temperature Pulse Rate 109 H 110 H Respiratory Rate 15 17 Blood Pressure 132/86 Blood Pressure [Right Arm] Pulse Oximetry 97 98 Oxygen Delivery Method 12/13/24 14:56 12/13/24 15:00 12/13/24 15:00 Temperature Pulse Rate 108 H Respiratory Rate 15 Blood Pressure 129/82 125/80 Blood Pressure [Right Arm] Pulse Oximetry 98 Oxygen Delivery Method 12/13/24 15:05 12/13/24 15:05 12/13/24 15:10 Temperature Pulse Rate 103 H 103 H Respiratory Rate 19 18 Blood Pressure 114/70 Blood Pressure [Right Arm] Pulse Oximetry 97 97 Oxygen Delivery Method 12/13/24 15:10 12/13/24 15:15 12/13/24 15:15 Temperature Pulse Rate 116 H Respiratory Rate 26 H Blood Pressure 116/73 113/83 Blood Pressure [Right Arm] Pulse Oximetry 97 Oxygen Delivery Method 12/13/24 15:20 12/13/24 15:20 12/13/24 15:26 Temperature Pulse Rate 115 H Respiratory Rate 12 Blood Pressure 107/66 136/75 Blood Pressure [Right Arm] Pulse Oximetry 96 Oxygen Delivery Method 12/13/24 15:26 Temperature Pulse Rate 112 H Respiratory Rate 15 Blood Pressure Blood Pressure [Right Arm] Pulse Oximetry 97 Oxygen Delivery Method Room Air Oxygen Delivery Method Room Air Objective Labs 12/13/24 13:35 12/13/24 13:35 Labs: Laboratory Results - last 24 hr 12/13/24 12/13/24 12/13/24 12:11 12:43 12:45 WBC RBC Hgb Hct MCV MCH MCHC RDW Plt Count Neut % (Auto) Lymph % (Auto) [place] % (Auto) Eos % (Auto) Baso % (Auto) Neut # (Auto) Lymph # (Auto) [place] # (Auto) Eos # (Auto) Baso # (Auto) ABG Sample Site ABG pH ABG pCO2 ABG pO2 ABG HCO3 ABG Total CO2 ABG O2 Saturation ABG Base Excess Kiran Test Sodium Potassium Chloride Carbon Dioxide BUN Creatinine Estimated GFR BUN/Creatinine Ratio Glucose POC Whole Bld Glucose 95 84 Lactate Calcium Total Bilirubin AST ALT Alkaline Phosphatase Ammonia 17 Total Creatine Kinase Troponin I Total Protein Albumin Globulin Albumin/Globulin Ratio Lipase Procalcitonin Ethyl Alcohol Ketones 12/13/24 12/13/24 12/13/24 13:01 13:09 13:22 WBC RBC Hgb Hct MCV MCH MCHC RDW Plt Count Neut % (Auto) Lymph % (Auto) [place] % (Auto) Eos % (Auto) Baso % (Auto) Neut # (Auto) Lymph # (Auto) [place] # (Auto) Eos # (Auto) Baso # (Auto) ABG Sample Site Right radial ABG pH 7.67 H* ABG pCO2 15.9 L* ABG pO2 109 H ABG HCO3 18 L ABG Total CO2 17 L ABG O2 Saturation 99 ABG Base Excess 0.2 Kiran Test N/a Sodium Potassium Chloride Carbon Dioxide BUN Creatinine Estimated GFR BUN/Creatinine Ratio Glucose POC Whole Bld Glucose 81 78 Lactate Calcium Total Bilirubin AST ALT Alkaline Phosphatase Ammonia Total Creatine Kinase Troponin I Total Protein Albumin Globulin Albumin/Globulin Ratio Lipase Procalcitonin Ethyl Alcohol Ketones 12/13/24 12/13/24 12/13/24 13:35 13:46 14:05 WBC 14.9 H RBC 4.56 Hgb 12.2 L Hct 36.4 L MCV 79.8 L MCH 26.7 MCHC 33.5 RDW 14.2 Plt Count 281 Neut % (Auto) 87.9 H Lymph % (Auto) 5.5 L [place] % (Auto) 6.2 Eos % (Auto) 0.0 L Baso % (Auto) 0.4 Neut # (Auto) 22903 H Lymph # (Auto) 800 L [place] # (Auto) 900 Eos # (Auto) 0 Baso # (Auto) 100 ABG Sample Site ABG pH ABG pCO2 ABG pO2 ABG HCO3 ABG Total CO2 ABG O2 Saturation ABG Base Excess Kiran Test Sodium 137 Potassium 3.9 Chloride 105 Carbon Dioxide 22 BUN 19 Creatinine 1.03 Estimated GFR > 60 BUN/Creatinine Ratio 18.4 Glucose 95 POC Whole Bld Glucose 94 Lactate 2.2 H Calcium 8.8 Total Bilirubin 0.4 AST 28 ALT 20 Alkaline Phosphatase 73 Ammonia Total Creatine Kinase 160 Troponin I < 0.012 Total Protein 7.3 Albumin 4.3 Globulin 3.0 Albumin/Globulin Ratio 1.4 Lipase 41 Procalcitonin 0.032 Ethyl Alcohol < 10 Ketones 0.28 H 12/13/24 12/13/24 14:19 15:15 WBC RBC Hgb Hct MCV MCH MCHC RDW Plt Count Neut % (Auto) Lymph % (Auto) [place] % (Auto) Eos % (Auto) Baso % (Auto) Neut # (Auto) Lymph # (Auto) [place] # (Auto) Eos # (Auto) Baso # (Auto) ABG Sample Site ABG pH ABG pCO2 ABG pO2 ABG HCO3 ABG Total CO2 ABG O2 Saturation ABG Base Excess Kiran Test Sodium Potassium Chloride Carbon Dioxide BUN Creatinine Estimated GFR BUN/Creatinine Ratio Glucose POC Whole Bld Glucose 105 H 102 H Lactate Calcium Total Bilirubin AST ALT Alkaline Phosphatase Ammonia Total Creatine Kinase Troponin I Total Protein Albumin Globulin Albumin/Globulin Ratio Lipase Procalcitonin Ethyl Alcohol Ketones Assessment & Plan Time-Based Coding :: [TOTAL MINUTES] spent with patient and on the chart (including review of chart, obtaining history, exam, reviewing outside data, placing orders, documenting exam and treatment plan, and counseling patient) on [DATE].
[2024-12-13 15:41] LABS: Acetaminophen < 10 ug/mL (10-30); Salicylate < 1.0 mg/dL (<20)
[2024-12-13 15:43] LABS: Reflexed Lactate in 2 Hours Y
[2024-12-13 16:21] LABS: Lactate 2HR (Lactic Acid Rflx) 1.3 mmol/L (0.7-2.1)
[2024-12-13] MEDS: HALOPERIDOL 5 MG/ML VIAL 2 MG IV (16:35)
[2024-12-13] MEDS: LIDOCAINE 2% (GLYDO) 6 ML GEL TOP (16:40)
[2024-12-13 17:28] LABS: UR Morphine/Opiate cutoff 300 Negative (Negative); Ur Specific Gravity Normal (Normal); Urine MDMA Negative (Negative); Urine Methamphetamines Negative (Negative); Urine Tetrahydrocannabinol Positive (Negative); Urine Tricyclic Antidepressant Negative (Negative)
[2024-12-13] MEDS: DEXTROSE 5%-0.9% NS 1,000 ML 125 ML IV ×2 (17:31→20:19)
--- NOTE | 2024-12-13 17:32 | PC.NURSE ---
1620: Non-violent soft restraints initiated by nursing staff when patient begins pulling at his PICC line. Patient appears agitated and restless. Multiple attempts to re-orient and distract patient prior to initiation of soft-restraints without success. Provider Vinod Glasgow made aware of initiation of soft-restraints at 1620. 1702: Non-violent soft restraints removed. Provider Vinod Glasgow made aware.
[2024-12-13 17:46] LABS: Base Excess VBG 1.8 mmol/L (0-4); HCO3 VBG 26 mmol/L (24-28); Oxygen Saturation VBG 72 % (70-75); PCO2 VBG 40.7 mmHg (45-50); PO2 VBG 38 mmHg (35-45); Total CO2 VBG 25 mmol/L (24-29); pH VBG 7.42 (7.33-7.43)
[2024-12-13 17:56] LABS: Blood Urea Nitrogen 14 mg/dL (9-20); Calcium 8.2 mg/dL (8.4-10.2); Carbon Dioxide 24 mmol/L (22-32); Chloride 104 mmol/L (98-107); Estimated Glomerular Filt Rate > 60 mL/min (>60); Glucose 97 mg/dL (70-99); HEMOLYSIS < 15 (0-50); Potassium 3.7 mmol/L (3.4-5.1); Sodium 136 mmol/L (137-145)
[2024-12-13 17:57] LABS: Lactate (Lactic Acid) 2.2 mmol/L (0.7-2.1)
[2024-12-13] MEDS: INSULIN DRIP PREMIX 100 UNIT/100 ML PLAST..BAG IV (18:50)
--- NOTE | 2024-12-13 19:03 | PC.NURSE ---
Admit Note Patient arrived to room 230 from ED at 1700. Restraints removed, see Lida's charting. Pt transferred to bed via slider board. Not following commands, not speaking or answering questions, pulled blankets immediately over head. SpO2 upper 90s on RA. ST. Saba catheter in place and draining clear yellow urine. Insulin gtt started per MD order per non DKA protocol at 1 unit/hr. Call light within reach. Bed alarm on.
[2024-12-13 19:17] LABS: Reflexed Lactate in 2 Hours Y
[2024-12-13 20:57] LABS: Lactate 2HR (Lactic Acid Rflx) 1.0 mmol/L (0.7-2.1)
[2024-12-13 20:58] LABS: Blood Urea Nitrogen 13 mg/dL (9-20); Calcium 8.0 mg/dL (8.4-10.2); Carbon Dioxide 25 mmol/L (22-32); Chloride 103 mmol/L (98-107); Estimated Glomerular Filt Rate > 60 mL/min (>60); Glucose 195 mg/dL (70-99); HEMOLYSIS < 15 (0-50); Potassium 3.5 mmol/L (3.4-5.1); Sodium 134 mmol/L (137-145)
[2024-12-13] MEDS: HEPARIN 5,000 UNIT/ML VIAL 5000 UNIT SUBCUT (21:24)
[2024-12-14] VITALS (47 sets, daily range): BP systolic 92–136; BP diastolic 55–88; PULSE 77–101; RESP 14–24; TEMP 36.2–37.2; O2SAT 94–99
[2024-12-14] MEDS: DEXTROSE 5%-0.9% NS 1,000 ML 125 ML IV (04:30)
[2024-12-14] MEDS: LEVOTHYROXINE 50 MCG TABLET PO (05:46)
[2024-12-14 06:24] LABS: Add Manual Diff / Slide Review NO; Hematocrit 29.9 % (41-53); Hemoglobin 10.3 g/dL (13.5-17.5); Lymphocytes Absolute Auto 1300 /uL (1100-4500); Mean Corpuscular HGB Conc 34.3 % (30-36); Mean Corpuscular Hemoglobin 27.4 PG (26-34); Mean Corpuscular Volume 79.8 fL (80-100); Platelet Count 194 X10^3/uL (150-400)
[2024-12-14] MEDS: DEXTROSE 50 % IN WATER 25 GM/50 ML SYRINGE IV (07:56)
--- NOTE | 2024-12-14 09:22 | CM.DANOTE ---
Initial DCP Assessment Note. Review EMR and PT Interview. Met with patient at bedside to discuss discharge needs.PT is alert x 4 with blanket covering his head.. No acute distress. Patient lives with his grandmother, Meghan, in [place]. Meghan will transport patient home upon discharge. Payor:?Awa PCP: Wound: Dr. Hannah Psych: Dr. Galarza Urology: Dr. Мария MOON: HANSEL Christy Worrell Dhruv [phone]. Care: M-W-F [id number]/. Summary & Plan:?34yo Male arrived to the ED via EMS c/o low blood sugar and AMS, FSBS=44 per EMS. Plan: IV D5 infusion, continue to monitor FSBS, electrolytes, and encourage PO intake. Likely home with no needs when stable. Discharge Planning/Care Management CM Discharge Assessment Start: 12/13/24 16:32 Freq: Status: Active Protocol: Document 12/14/24 09:18 (Rec: 12/14/24 09:22 [id number]) Discharge Planning Assessment Assigned Discharge Raquel Gunderson RN CM Project Management Instructor Provider Dr. Erich Arevalo Advance Directives? No Advance Directives Yes on File History Provided By Patient,Medical Record Has Patient been No admitted in last 30 days? Prior Living House Arrangements Household Members family Type of Relies on Others transporation used prior to admit Independent with ADL Yes 's Is patient alert and Yes oriented? Caregiver for No Another Comment Pt has an insulin pump and CGM. Comment See narrative. Discharge Plan Home Transportation Family vs [facility] transport Arrangement Referrals Initiated None needed Additional Comment Patient would benefit from [facility] caregiver in the home vs [facility] Review Status In Process Please Provide Date 12/14/24 Initial DC Assessment Was Performed Next Review Type Continued Stay Review
[2024-12-14] MEDS: INSULIN LISPRO 100 UNIT/ML 3ML VIAL SUBCUT ×3 (12:04→22:24)
[2024-12-14] MEDS: DEXTROSE 5%-0.9% NS 1,000 ML 75 ML IV (12:59)
[2024-12-14] MEDS: SUCRALFATE 1 GM/10 ML ORAL SUSP PO ×3 (13:27→22:03)
--- NOTE | 2024-12-14 14:16 | DIET.CONS ---
Dietary Consultation Note Admission Date: 12/13/2024 16:03 Assessment: 34 y M admitted for hypoglycemia. Dietitian consulted for insulin pump management. Dietitian and DM educator up to see pt this afternoon. Pt reports using dexcom cgm and no issues with cgm or pump that he knows of. Is unsure what happened. Only remembers waking up in hospital. Tandem pump is in with belongings but not charged so unable to investigate potential pump issues. Pt agreeable to OP DM educ visit. Previously DM educ has set up visits w pt that he has cancelled or no show to. Ht: 177.8 cm Wt: 76 kg BMI: 24.0 Last BM: 12/14/24 (12/14/24 04:00) MNA: 14 Jimbo Score: 19 Diet: 12/13/24 12:01 NPO Diet Diet Modifications: NPO Type: NPO except for Meds 12/13/24 Dinner Carbohydrate Consistent Diet Diet Modifications: Carbohydrate level: Medium (3 CHO) Reflex DM orders: No Food Texture: Level 7 - Regular Liquid Consistency: Level 0 - Thin Labs: RBC 3.75 X10^6/uL (4.5-5.9) L 12/14/24 06:15 Hgb 10.3 g/dL (13.5-17.5) L 12/14/24 06:15 Hct 29.9 % (41-53) L 12/14/24 06:15 Creatinine 0.95 mg/dL (0.66-1.25) 12/13/24 20:30 Lactate 1.0 mmol/L (0.7-2.1) 12/13/24 20:30 Nutrition Diagnosis: Altered nutrition related lab values (BG) r/t potential insulin overdose d/t pump issues vs unknown etiology aeb prolonged hypoglycemia Interventions: -Pt agreed to call his grandma to bring in pump zinc furnace charger and insulin for pump if pt wants to reconnect to pump -DM educator reaching out to PCP Erich for referral for OP visits Monitoring/Evaluations: BG, will check back if pump zinc furnace charger can brought in to look at pump hx Electronically Signed by: Julia Márquez 12/14/24 14:16 Clinical Dietitian [address] [address]
[2024-12-14] MEDS: CALCIUM CARBONATE 500 MG TAB PO (15:09)
--- NOTE | 2024-12-14 15:50 | P.PN_ITS ---
<Statement entered by Vinod Glasgow MD - 12/14/24 16:04>
--- NOTE | 2024-12-14 15:50 | PM.PN.1 ---
Subjective Subjective Date Patient Seen: 12/14/24 Time Patient Seen: 15:50 Interval history: Date Patient Seen: 12/14/2024 CC: Hypoglycemia ? HPI:? Per Dr. Baugh: 34-year-old male history of hypertension, anxiety, hypothyroidism type 1 diabetes with chronic gastroparesis presents with altered mental status, hypoglycemia. EMS notes that his glucose was 44 in his monitor they had 60 he received 12.5 g of dextrose. Still has a insulin pump on. His mom had contacted EMS as he was unresponsive but she thought he was having difficulty with breathing. They noted that his eyes were open he has been moving independently but not really following commands and not talking to them. Patient does not follow commands for myself. Mother had told EMS that she has not noted any recent changes that would have exacerbated his issues. Reported allergies to aspirin, hydrocodone and ibuprofen. ? Interval Events: 12/13 (Dr. Glasgow): Findings in the emergency room significant for: ABG pH 7.67 pCO2 15 White count 15 88% neutrophils Sodium 137 potassium 3.9 BUN 22 creatinine 1.03 ketones 0.28 Procalcitonin 0.032 ? CT of the chest abdomen and pelvis negative CT of the head no acute changes and chest x-ray clear ? 12/14 (Dr. Glasgow): Patient now arousable to voice, oriented x4, with intact cognition. Appears pale and uncomfortable, but reports feeling better than yesterday. No focal deficits observed during interaction. Consult placed to diabetic educator to evaluate for possible insulin pump malfunction and provide further teaching/support. Will contact care management coordinator, patient's grandmaMeghan. Labs today consistent with microcytic anemia. ? Labs reviewed and notable for: Low: RBC: 3.75 ?10?/?L, Hgb: 10.3 g/dL, HCT: 29.9%, MCV: 79.8 fL, Lymphocyte %: 12.2%, Eosinophils: 0.6%. High: Neutrophil %: 79.8% ? Imaging reviewed and notable for: No new imaging. ? Intake/Output: In 5107, Out 2755, Urine 1.51ml/kg/hr, Stool x1, Emesis x1. Balance +2352 ? Vitals reviewed and notable for: Vitals WNL. ? Physical Exam: General: Pale, uncomfortable, but alert and oriented x4. Heart: RRR, no murmur or gallop Lungs: CTAB, no wheezes, rales, or rhonchi. Normal work of breathing ? A: 34-year-old male with T1DM on insulin pump, gastroparesis, and psychiatric comorbidities, presenting with severe hypoglycemia and altered mental status, now improving clinically with supportive care. ? #Severe prolonged hypoglycemia possibly related to insulin overdose in setting of insulin pump with hyperventilation in a diabetic that also is taking beta-blockers. Likely etiology: Experimental data show that hypoglycemia induced hypoventilation is mediated by epinephrine acting on the carotid body and blocking adrenergic receptors abolished this effect however literature search also cautions that beta-blockers may exacerbate ventilation-metabolism mismatch during hypoglycemia potentially worsening acid-base disturbances leading to High PaCO2 and can increase the risk of severe or prolonged hypoglycemia -FS glucose q2h -VBG daily -Serum ketones daily -BMP daily -Continue IV D5NS -primary special educator consult placed to assess pump, provide teaching -Resume basal-bolus insulin when glucose stabilizes -Seizure precautions ? #Type 1 diabetes -Continuous IV dextrose as needed for low FS glucose and when glucose starts to rise begin basal bolus insulin to prevent slipping into DKA -Transition to subcutaneous insulin when appropriate, patient prefers to continue with pump use, as lantus and lispro did not work for him in the past -Await diabetic educator input ? #Microcytic anemia -Likely iron deficiency anemia -Iron studies -Evaluate for nutritional vs chronic disease etiology -Consider GI evaluation pending results ? #Gastroparesis and vomiting, present on admission and active. -Continue Compazine -Consider alternative class if symptoms recur ? #Depression and possible bipolar disorder, present on admission and active. -Continue prozac, hydroxyzine, lorazepam -Monitor mental status as he regains full orientation ? #Hypothyroidism, present on admission and active. -Continue levothyroxine ? #GERD, present on admission and active. -recent minor hematemesis from gastritis -Continue PPI BID ? #HTN, present on admission and active. -Metoprolol discontinued -Monitor BP, consider alternative if needed ? #CKD, present on admission and active. -Monitor urine output -eGFR and creatinine normal 12/13 ? #DVT prophylaxis: -Subcutaneous heparin ? Code status: -Full code ? Disposition: -Transfer to medicine floor for continued monitoring and management. No longer requires ICU-level care as hypoglycemia is resolving, neurologic status is improving, and no insulin infusion or pressor support is needed. Exam Vital Signs (past 8 hours): - 12/14/24 08:00 12/14/24 08:00 12/14/24 08:30 Temperature Pulse Rate 88 89 Respiratory Rate 18 16 Blood Pressure 109/73 Pulse Oximetry 98 97 Oxygen Delivery Method 12/14/24 09:00 12/14/24 09:00 12/14/24 09:30 Temperature Pulse Rate 88 91 H Respiratory Rate 21 14 Blood Pressure 114/72 Pulse Oximetry 99 98 Oxygen Delivery Method 12/14/24 09:30 12/14/24 10:00 12/14/24 10:00 Temperature 97.2 F L Pulse Rate 88 Respiratory Rate 21 Blood Pressure 109/64 Pulse Oximetry 97 Oxygen Delivery Method 12/14/24 10:30 12/14/24 11:00 12/14/24 11:00 Temperature Pulse Rate 101 H 91 H Respiratory Rate Blood Pressure 101/67 Pulse Oximetry 98 97 Oxygen Delivery Method 12/14/24 11:00 12/14/24 11:30 12/14/24 12:00 Temperature Pulse Rate 89 90 Respiratory Rate Blood Pressure Pulse Oximetry 96 97 Oxygen Delivery Method Room Air 12/14/24 12:01 12/14/24 12:01 12/14/24 12:04 Temperature 98.8 F Pulse Rate 101 H Respiratory Rate Blood Pressure 101/79 Pulse Oximetry 95 Oxygen Delivery Method Oxygen Delivery Method Room Air Oxygen Flow Rate 0 Objective Labs 12/14/24 06:15 12/13/24 20:30 Labs: Laboratory Results - last 24 hr 12/13/24 12/13/24 12/13/24 16:01 16:52 17:07 WBC RBC Hgb Hct MCV MCH MCHC RDW Plt Count Neut % (Auto) Lymph % (Auto) Patrick % (Auto) Eos % (Auto) Baso % (Auto) Neut # (Auto) Lymph # (Auto) Patrick # (Auto) Eos # (Auto) Baso # (Auto) VBG pH VBG pCO2 VBG pO2 VBG HCO3 VBG Total CO2 VBG O2 Saturation VBG Base Excess Sodium Potassium Chloride Carbon Dioxide BUN Creatinine Estimated GFR BUN/Creatinine Ratio Glucose POC Whole Bld Glucose 107 H Lactate 1.3 Calcium Prolactin U Opiates 300ng/mL cut Negative Ur Oxycodone Screen Negative Urine Methadone Screen Negative Ur Barbiturates Screen Negative U Tricyclic Antidepress Negative Ur Phencyclidine Scrn Negative Ur Amphetamines Screen Negative U Methamphetamines Scrn Negative Ur MDMA Scrn (Ecstasy) Negative U Benzodiazepines Scrn Negative Urine Cocaine Screen Negative U Marijuana (THC) Screen Positive H Urine pH Normal Urine Specific Baker Normal Ur Creatinine Normal 12/13/24 12/13/24 12/13/24 17:37 17:42 18:31 WBC RBC Hgb Hct MCV MCH MCHC RDW Plt Count Neut % (Auto) Lymph % (Auto) Patrick % (Auto) Eos % (Auto) Baso % (Auto) Neut # (Auto) Lymph # (Auto) Patrick # (Auto) Eos # (Auto) Baso # (Auto) VBG pH 7.42 VBG pCO2 40.7 L VBG pO2 38 VBG HCO3 26 VBG Total CO2 25 VBG O2 Saturation 72 VBG Base Excess 1.8 Sodium 136 L Potassium 3.7 Chloride 104 Carbon Dioxide 24 BUN 14 Creatinine 0.94 Estimated GFR > 60 BUN/Creatinine Ratio 14.9 Glucose 97 POC Whole Bld Glucose 148 H Lactate 2.2 H Calcium 8.2 L Prolactin U Opiates 300ng/mL cut Ur Oxycodone Screen Urine Methadone Screen Ur Barbiturates Screen U Tricyclic Antidepress Ur Phencyclidine Scrn Ur Amphetamines Screen U Methamphetamines Scrn Ur MDMA Scrn (Ecstasy) U Benzodiazepines Scrn Urine Cocaine Screen U Marijuana (THC) Screen Urine pH Urine Specific Baker Ur Creatinine 12/13/24 12/13/24 12/13/24 20:08 20:30 21:24 WBC RBC Hgb Hct MCV MCH MCHC RDW Plt Count Neut % (Auto) Lymph % (Auto) Patrick % (Auto) Eos % (Auto) Baso % (Auto) Neut # (Auto) Lymph # (Auto) Patrick # (Auto) Eos # (Auto) Baso # (Auto) VBG pH VBG pCO2 VBG pO2 VBG HCO3 VBG Total CO2 VBG O2 Saturation VBG Base Excess Sodium 134 L Potassium 3.5 Chloride 103 Carbon Dioxide 25 BUN 13 Creatinine 0.95 Estimated GFR > 60 BUN/Creatinine Ratio 13.7 Glucose 195 H POC Whole Bld Glucose 187 H 175 H Lactate 1.0 Calcium 8.0 L Prolactin U Opiates 300ng/mL cut Ur Oxycodone Screen Urine Methadone Screen Ur Barbiturates Screen U Tricyclic Antidepress Ur Phencyclidine Scrn Ur Amphetamines Screen U Methamphetamines Scrn Ur MDMA Scrn (Ecstasy) U Benzodiazepines Scrn Urine Cocaine Screen U Marijuana (THC) Screen Urine pH Urine Specific Baker Ur Creatinine 12/13/24 12/13/24 12/14/24 22:11 23:49 00:54 WBC RBC Hgb Hct MCV MCH MCHC RDW Plt Count Neut % (Auto) Lymph % (Auto) Patrick % (Auto) Eos % (Auto) Baso % (Auto) Neut # (Auto) Lymph # (Auto) Patrick # (Auto) Eos # (Auto) Baso # (Auto) VBG pH VBG pCO2 VBG pO2 VBG HCO3 VBG Total CO2 VBG O2 Saturation VBG Base Excess Sodium Potassium Chloride Carbon Dioxide BUN Creatinine Estimated GFR BUN/Creatinine Ratio Glucose POC Whole Bld Glucose 191 H 130 H 87 Lactate Calcium Prolactin U Opiates 300ng/mL cut Ur Oxycodone Screen Urine Methadone Screen Ur Barbiturates Screen U Tricyclic Antidepress Ur Phencyclidine Scrn Ur Amphetamines Screen U Methamphetamines Scrn Ur MDMA Scrn (Ecstasy) U Benzodiazepines Scrn Urine Cocaine Screen U Marijuana (THC) Screen Urine pH Urine Specific Baker Ur Creatinine 12/14/24 12/14/24 12/14/24 02:06 03:06 04:08 WBC RBC Hgb Hct MCV MCH MCHC RDW Plt Count Neut % (Auto) Lymph % (Auto) Patrick % (Auto) Eos % (Auto) Baso % (Auto) Neut # (Auto) Lymph # (Auto) Patrick # (Auto) Eos # (Auto) Baso # (Auto) VBG pH VBG pCO2 VBG pO2 VBG HCO3 VBG Total CO2 VBG O2 Saturation VBG Base Excess Sodium Potassium Chloride Carbon Dioxide BUN Creatinine Estimated GFR BUN/Creatinine Ratio Glucose POC Whole Bld Glucose 174 H 169 H 162 H Lactate Calcium Prolactin U Opiates 300ng/mL cut Ur Oxycodone Screen Urine Methadone Screen Ur Barbiturates Screen U Tricyclic Antidepress Ur Phencyclidine Scrn Ur Amphetamines Screen U Methamphetamines Scrn Ur MDMA Scrn (Ecstasy) U Benzodiazepines Scrn Urine Cocaine Screen U Marijuana (THC) Screen Urine pH Urine Specific Baker Ur Creatinine 12/14/24 12/14/24 12/14/24 05:19 06:13 06:15 WBC 10.8 RBC 3.75 L Hgb 10.3 L Hct 29.9 L MCV 79.8 L MCH 27.4 MCHC 34.3 RDW 14.2 Plt Count 194 Neut % (Auto) 79.8 H Lymph % (Auto) 12.2 L Patrick % (Auto) 7.0 Eos % (Auto) 0.6 L Baso % (Auto) 0.4 Neut # (Auto) 8600 H Lymph # (Auto) 1300 Patrick # (Auto) 800 Eos # (Auto) 100 Baso # (Auto) 0 VBG pH VBG pCO2 VBG pO2 VBG HCO3 VBG Total CO2 VBG O2 Saturation VBG Base Excess Sodium Potassium Chloride Carbon Dioxide BUN Creatinine Estimated GFR BUN/Creatinine Ratio Glucose POC Whole Bld Glucose 152 H 257 H D Lactate Calcium Prolactin U Opiates 300ng/mL cut Ur Oxycodone Screen Urine Methadone Screen Ur Barbiturates Screen U Tricyclic Antidepress Ur Phencyclidine Scrn Ur Amphetamines Screen U Methamphetamines Scrn Ur MDMA Scrn (Ecstasy) U Benzodiazepines Scrn Urine Cocaine Screen U Marijuana (THC) Screen Urine pH Urine Specific Baker Ur Creatinine 12/14/24 12/14/24 12/14/24 07:46 08:15 09:35 WBC RBC Hgb Hct MCV MCH MCHC RDW Plt Count Neut % (Auto) Lymph % (Auto) Patrick % (Auto) Eos % (Auto) Baso % (Auto) Neut # (Auto) Lymph # (Auto) Patrick # (Auto) Eos # (Auto) Baso # (Auto) VBG pH VBG pCO2 VBG pO2 VBG HCO3 VBG Total CO2 VBG O2 Saturation VBG Base Excess Sodium Potassium Chloride Carbon Dioxide BUN Creatinine Estimated GFR BUN/Creatinine Ratio Glucose POC Whole Bld Glucose 54 L D 141 H Lactate Calcium Prolactin 10.0 U Opiates 300ng/mL cut Ur Oxycodone Screen Urine Methadone Screen Ur Barbiturates Screen U Tricyclic Antidepress Ur Phencyclidine Scrn Ur Amphetamines Screen U Methamphetamines Scrn Ur MDMA Scrn (Ecstasy) U Benzodiazepines Scrn Urine Cocaine Screen U Marijuana (THC) Screen Urine pH Urine Specific Baker Ur Creatinine 12/14/24 12/14/24 09:51 11:57 WBC RBC Hgb Hct MCV MCH MCHC RDW Plt Count Neut % (Auto) Lymph % (Auto) Patrick % (Auto) Eos % (Auto) Baso % (Auto) Neut # (Auto) Lymph # (Auto) Patrick # (Auto) Eos # (Auto) Baso # (Auto) VBG pH VBG pCO2 VBG pO2 VBG HCO3 VBG Total CO2 VBG O2 Saturation VBG Base Excess Sodium Potassium Chloride Carbon Dioxide BUN Creatinine Estimated GFR BUN/Creatinine Ratio Glucose POC Whole Bld Glucose 173 H 261 H Lactate Calcium Prolactin U Opiates 300ng/mL cut Ur Oxycodone Screen Urine Methadone Screen Ur Barbiturates Screen U Tricyclic Antidepress Ur Phencyclidine Scrn Ur Amphetamines Screen U Methamphetamines Scrn Ur MDMA Scrn (Ecstasy) U Benzodiazepines Scrn Urine Cocaine Screen U Marijuana (THC) Screen Urine pH Urine Specific Baker Ur Creatinine PFSH Medical History Anemia in other chronic diseases classified elsewhere Erectile dysfunction Insomnia Anxiety Migraines Headache Shoulder pain Osteoporosis Cataracts, bilateral Partial blindness GI bleeding Gastroparesis Gastric ulcer Chronic back pain MDD (major depressive disorder), recurrent episode, moderate Generalized anxiety disorder Compression fracture Chronic lower back pain HTN (hypertension) Hypothyroidism Marijuana use History of MRSA infection History of pneumonia Blurry vision, bilateral Diabetic neuropathy Bipolar disorder with depression Nausea and vomiting Diabetes type 1, uncontrolled Diabetic gastroparesis Surgical History No pertinent past surgical history Family History Mother No known health problems Father No known health problems Social History household members: family Smoking Status: Former smoker alcohol intake: never Assessment & Plan Time-Based Coding :: [TOTAL MINUTES] spent with patient and on the chart (including review of chart, obtaining history, exam, reviewing outside data, placing orders, documenting exam and treatment plan, and counseling patient) on [DATE]. Quality VTE Deep Vein Thrombosis/Pulmonary Embolism Present on Admission: No
[2024-12-14 15:51] LABS: HEMOLYSIS < 15 (0-50); Iron 40 ug/dL (49-181)
[2024-12-14 16:00] LABS: Percent Iron Saturation 15 % (20-50); Total Iron Binding Capacity 260 ug/dL (261-462); Transferrin 199 mg/dL (206-381)
[2024-12-14] MEDS: PANTOPRAZOLE 40 MG VIAL IV (18:05)
[2024-12-14] MEDS: SODIUM CHLORIDE 0.9% 1,000 ML 75 ML IV (18:41)
[2024-12-14 18:57] LABS: MRSA (Nasal) PCR NOT DETECTED (Not Detect)
[2024-12-14] MEDS: MORPHINE 4 MG/ML INJ IV (22:00)
[2024-12-14] MEDS: HEPARIN 5,000 UNIT/ML VIAL 5000 UNIT SUBCUT (22:01)
[2024-12-15] VITALS (28 sets, daily range): BP systolic 135–136; BP diastolic 67–77; PULSE 69–98; RESP 8–26; TEMP 36.9; O2SAT 91–100
[2024-12-15] MEDS: LEVOTHYROXINE 50 MCG TABLET PO (06:24)
--- NOTE | 2024-12-15 09:00 | DIET.PN1 ---
Addendum entered by Julia Márquez 12/15/24 11:41: Pt's pump and car sealer has been returned to pt at 1130 and informed RN that pump was returned. Pump is 80% charged. See DM educator note for further details. Original Note: Dietary Progress Note Assessment: Went to pt's room. Pt had pump car sealer. Asked permission to take pump and car sealer from room, charge it and download information to investigate potential pump issues, and bring pump back by this afternoon. Pt was agreeable. Pump and car sealer in RD's office currently. Ht: 177.8 cm Wt: 75.4 kg BMI: 24.0 Last BM: 12/14/24 (12/14/24 04:00) MNA: 14 Jimbo Score: 19 Diet: 12/13/24 12:01 NPO Diet Diet Modifications: NPO Type: NPO except for Meds 12/13/24 Dinner Carbohydrate Consistent Diet Diet Modifications: Carbohydrate level: Medium (3 CHO) Reflex DM orders: No Food Texture: Level 7 - Regular Liquid Consistency: Level 0 - Thin Nutrition Percent Meal Consumed 25% 12/14/24 17:44 Labs: RBC 3.75 X10^6/uL (4.5-5.9) L 12/14/24 06:15 Hgb 10.3 g/dL (13.5-17.5) L 12/14/24 06:15 Hct 29.9 % (41-53) L 12/14/24 06:15 Creatinine 0.95 mg/dL (0.66-1.25) 12/13/24 20:30 Lactate 1.0 mmol/L (0.7-2.1) 12/13/24 20:30 Iron 40 ug/dL (49-181) L 12/14/24 15:30 % Saturation 15 % (20-50) L D 12/14/24 15:30 Electronically Signed by: Julia Márquez 12/15/24 09:00 Clinical Dietitian [address] [id number]
[2024-12-15] MEDS: INSULIN LISPRO 100 UNIT/ML 3ML VIAL SUBCUT ×2 (09:02→13:05)
[2024-12-15] MEDS: SUCRALFATE 1 GM/10 ML ORAL SUSP PO (09:25)
[2024-12-15] MEDS: PANTOPRAZOLE DR 40 MG TABLET PO (09:27)
--- NOTE | 2024-12-15 11:42 | DIET.PN1 ---
Dietary Progress Note Assessment: Assessment: 34 y M admitted for hypoglycemia. Dietitian consulted for insulin pump management. Dietitian and DM educator reviewed pump reports, which indicated excessive hyperglycemia the night prior to admission followed by over auto bolusing and low <60mg/dl. Automatic corrections from insulin pump seemed to have resulted in a low around 5am. Per pump alerts, patient was notified of lows several times, however alerts were on vibrate. Pt not amenable to changing this from vibrate to sound alerts, stating he usually does feel the vibrate for lows. Low alert also not set for repeat. Low continued for about 6.5 hours per pump reports. Given excessive highs and lows, seems he may need setting adjustments. Sees lou Grajeda per report. Last endo visit reported 5 months ago. Also per pump reports, pt has not been wearing CGM consistently, though seems to still wear pump in manual mode. At the time of the low, however, the pump was providing automated corrections indicating it was in auto mode. One alert of CGM out of range at 1:30am that morning. Pt not using sleep mode, which could have potentially reduced lows when sleeping. Pt has had DM education referral for OP visits, however has not attended scheduled visits. States he is bolusing for meals, however reports indicate no boluses. Pump: TSlim Recommendations: Use Sleep mode to reduce lows while asleep, consider setting changes and/or different insulin pump with a better algorithm, change low alert to sound vs vibrate, set repeat low alert for 15 mins or less, attend OP DM education (in-person or virtual), bolus for meals. Nutrition Diagnosis: Altered nutrition related lab values (BG) r/t insulin overdose d/t pump issues aeb prolonged hypoglycemia Interventions: -Pt agreed to use sleep modes, is open to a different pump potentially - Pt agreed to change alert setting to repeat, done by RD/FREDERICK today -DM educator reached out to PCP Erich for urgent referral for OP visits Monitoring/Evaluations: OP f/u Electronically Signed by: Maye Tamez 12/15/24 11:42 Clinical Dietitian [address] [address]
--- NOTE | 2024-12-15 14:06 | P.DS_ITS ---
History of Present Illness
--- NOTE | 2024-12-15 14:06 | PM.DS.IH.1 ---
History of Present Illness History of Present Illness Date Patient Seen: 12/15/24 Time Patient Seen: 07:37 Chief complaint: Hypoglycemia Narrative: Chief complaint: Severe prolonged hypoglycemia with respiratory alkalosis and encephalopathy in brittle type 1 diabetic HPI: 34-year-old male history of hypertension, anxiety, hypothyroidism type 1 diabetes with chronic gastroparesis presents with altered mental status hypoglycemia. EMS notes that his glucose was 44 in his monitor they had 60 he received 12.5 g of dextrose. Still has a insulin pump on. His mom had contacted EMS as he was unresponsive but she thought he was having difficulty with breathing. They noted that his eyes were open he has been moving independently but not really following commands and not talking to them. Patient does not follow commands for myself. Mother had told EMS that she has not noted any recent changes that would have exacerbated his issues. Findings in the emergency room significant for: ABG pH 7.67 pCO2 15 White count 15 88% neutrophils Sodium 137 potassium 3.9 BUN 22 creatinine 1.03 ketones 0[address] of the chest abdomen and pelvis negative CT of the head no acute changes and chest x-ray clear Discharge Providers Provider Date of admission: 12/13/24 16:03 Discharge Date: 12/15/24 Primary care physician: James Jung DO Consults: 12/14/24 07:44 Consult to Pharmacy Routine Comment: Diabetic 12/14/24 11:12 Consult to Dietitian, Adult Routine Comment: [facility] Insulin Pump Education Reason For Exam: Diabetes Discharge provider: Onesimo Faye MD Summary Hospital Course Discharge Diagnosis: 1. Severe prolonged hypoglycemia possibly related to insulin overdose in setting of insulin pump malfunction. 2. Type 1 diabetes 3. Gastroparesis and vomiting, present on admission and active. 4. Depression and possibe bipolar disorder, present on admission and active. 5. Hypothyroidism, present on admission and active. 6. GERD, present on admission and active. 7. HTN, present on admission and active. 8. CKD, present on admission and active. Hospital Course: The patient was admitted and placed on insulin regimen and managed conservatively. He improved significantly and was feeling much better. Diabetic services consulted regarding his insulin pump and found no significant malfunction, though noted that there were periods of missing data raising question of adherence to therapy. Close outpatient follow-up is advised with diabetic education services and his primary care provider. No other issues arose. Status at Discharge Cognitive/behavioral status at discharge: oriented Functional status at discharge: independent ambulation Overall status at discharge: patient is back to baseline Time Spent with Patient Time spent: Less than 30 minutes Exam Vital Signs (past 8 hours): - 12/15/24 06:30 12/15/24 07:00 12/15/24 07:00 Temperature Pulse Rate 94 H 92 H Respiratory Rate 17 18 Pulse Oximetry 94 95 Oxygen Delivery Method Room Air 12/15/24 07:30 12/15/24 08:00 12/15/24 08:30 Temperature Pulse Rate 89 89 87 Respiratory Rate 16 14 17 Pulse Oximetry 95 94 91 Oxygen Delivery Method 12/15/24 08:50 12/15/24 09:00 12/15/24 09:30 Temperature 98.5 F Pulse Rate 89 98 H Respiratory Rate 17 22 Pulse Oximetry 95 95 Oxygen Delivery Method 12/15/24 10:00 12/15/24 10:30 12/15/24 11:00 Temperature Pulse Rate 96 H 89 89 Respiratory Rate 18 8 L 8 L Pulse Oximetry 92 94 95 Oxygen Delivery Method 12/15/24 11:30 12/15/24 12:00 12/15/24 12:30 Temperature Pulse Rate 91 H 89 69 Respiratory Rate 18 20 Pulse Oximetry 93 98 100 Oxygen Delivery Method Oxygen Delivery Method Room Air Oxygen Flow Rate 0 Narrative Exam Narrative: GENERAL: This is a well-nourished, well-developed patient, in no apparent distress. EYES: Pupils equal round and reactive. Extraocular motions intact. No scleral icterus. No injection or drainage. ENT: Mucous membranes pink and moist. NECK: Supple, nontender, no meningeal signs. CARDIOVASCULAR: Regular rate and rhythm without murmurs, gallops, or rubs. RESPIRATORY: Clear to auscultation. GASTROINTESTINAL: Abdomen soft, non-tender, nondistended. EXTREMITIES: No clubbing, cyanosis, or edema. NEUROLOGIC: Alert, oriented, speech fluent, full upper and lower motor strength, no focal deficits evident. DERMATOLOGIC: No rashes or skin lesions. Objective Imaging *: Radiologist's impression: 1. Head CT 12/13/2024: Limited study, without a jigna acute intracranial abnormality seen. 2. Abdomen/pelvis CT 12/13/2024: No findings of small rocks are seen. No dilated loops of bowel can be seen. There is prominent stool seen within the rectum. Additional findings: Remote, stable L1 anterior wedge deformity 3. Chest x-ray 12/13/2024: Tip of PICC projects to the area of SVC. Labs 12/14/24 06:15 12/13/24 20:30 Labs: Laboratory Results - last 24 hr 12/14/24 12/14/24 12/14/24 06:15 15:30 16:45 POC Whole Bld Glucose 280 H Iron 40 L TIBC 260 L % Saturation 15 L D Transferrin 199 L Nasal Screen MRSA (PCR) Not detected 12/14/24 12/15/24 12/15/24 22:02 08:55 12:35 POC Whole Bld Glucose 284 H 382 H 328 H Iron TIBC % Saturation Transferrin Nasal Screen MRSA (PCR) PFS Medical History Anemia in other chronic diseases classified elsewhere Anxiety Bipolar disorder with depression Blurry vision, bilateral Cataracts, bilateral Chronic back pain Chronic lower back pain Compression fracture Diabetes type 1, uncontrolled Diabetic gastroparesis Diabetic neuropathy Erectile dysfunction Gastric ulcer Gastroparesis Generalized anxiety disorder GI bleeding Headache History of MRSA infection History of pneumonia HTN (hypertension) Hypothyroidism Insomnia Marijuana use MDD (major depressive disorder), recurrent episode, moderate Migraines Nausea and vomiting Osteoporosis Partial blindness Shoulder pain Surgical History No pertinent past surgical history Family History Mother No known health problems Father No known health problems Social History household members: family Smoking Status: Former smoker alcohol intake: never Discharge Plan Discharge Plan Patient Disposition: Home Provider Discharge Comment: Followup with Dr. Jung 1 week Discharge orders & Medications Prescriptions: Continued (DME) Dexcom G6 Transmitter Device See Rx Instructions .Route Qty: 1 3RF Rx Instructions: continuously monitor blood sugars Humulin R Regular U-100 Insuln 100 unit/mL solution See Rx Instructions .ROUTE .COMPLEX Qty: 10 3RF Rx Instructions: 40 units via insulin pump max daily dose 45 units suvorexant 20 mg tablet 20 mg PO BEDTIME PRN (Reason: insomnia) Qty: 30 2RF sildenafil 100 mg tablet 100 mg PO DAILY PRN (Reason: sexual activity) Qty: 10 2RF fluoxetine 40 mg capsule 40 mg PO QAM Qty: 30 2RF (DME) Dexcom G6 Sensor Device See Rx Instructions .ROUTE .COMPLEX Qty: 3 8RF Dose Instruction: use to continuously monitor blood sugars, CHANGE EVERY 10 DAYS Rx Instructions: use to continuously monitor blood sugars, CHANGE EVERY 10 DAYS hydroxyzine HCl 10 mg tablet 10 mg PO 3XD PRN (Reason: for anxiety) Qty: 84 0RF hydrocodone-acetaminophen 5-325 mg tablet 1 tab PO TID PRN (Reason: pain) Qty: 90 0RF metoprolol succinate 50 mg tablet extended release 24 hr 50 mg PO DAILY levothyroxine 50 mcg tablet 50 mcg PO DAILY Qty: 90 1RF (DME) Extended [place] 3 mL Misc MISCELLANEOUS Rx Instructions: patient uses insulin pump (DME) True Metrix Glucose Test Strip Strip MISCELLANEOUS 4XD (DME) lancets [TRUEplus Lancets] 30 gauge misc MISCELLANEOUS 4XD (DME) blood-glucose meter [True Metrix Glucose Meter] Misc MISCELLANEOUS (DME) Dexcom G6 Childcare Provider Misc MISCELLANEOUS Patient Comments: [NO ORIGINAL SIG] prochlorperazine maleate [Compazine] 10 mg tablet 10 mg PO Q6H PRN (Reason: nausea and vomiting) Qty: 120 1RF sucralfate 100 mg/mL suspension 10 ml PO QID Qty: 420 1RF Rx Instructions: swish in mouth and swallow; use after food/drink pantoprazole [Protonix] 40 mg tablet,delayed release (DR/EC) 40 mg PO DAILY Qty: 30 1RF tadalafil 5 mg tablet 5 mg PO DAILY Qty: 90 2RF Follow up/Referrals: James Jung, [Primary Care Provider, Family Practice] Visit Report/Discharge Packet Stand Alone Forms: Patient Portal/API, Stroke Signs & Symptoms Discharge Data Primary Care Provider: James Jung Quality VTE Deep Vein Thrombosis/Pulmonary Embolism Present on Admission: No MIPS - Admit I confirm the patient?s Advance Care Plan is present, Code status is documented, Surrogate decision maker is in patient?s record [If Yes, STOP here]: Yes MIPS - Meds 'Current medications' to include all prescriptions, [id number] products, herbals, cannabis/cannabidiol products, and vitamin/mineral/dietary (nutritional) supplements. I have utilized all available resources to obtain, update, or review the patient?s current medications. [If Yes, STOP here]: Yes MIPS - DC The patient has a history of heart transplant or Left Ventricular Assist Device (LVAD). If yes, STOP here.: No The patient has current or prior documentation of left ventricular ejection fraction (LVEF) less than or equal to 40%, or moderate or severely depressed left ventricular systolic function.: No A. The patient was prescribed or already taking an Angiotensin-Converting Enzyme (CHEYENNE) Inhibitor, or Angiotensin Receptor Jo (ARB).: No B. The patient was prescribed or already taking a beta-jo. [If Yes to Both A & B, STOP here]: No Patient not prescribed/taking CHEYENNE or ARB, no reason given.: No Patient not prescribed/taking beta-jo, no reason given.: No PROFEE Charge Codes Discharge inpatient/observation: 17161
== END 2024-12-15 15:05 | disposition home or self-care (01) | DRG 813 ==
LOC: ED 15:31 → AC 16:05 → ICU 16:15
PROVIDERS: Internal Medicine; Admitting Provider Internal Medicine; Emergency Provider Emergency Medicine; Family Provider Nurse Practitioner Family; PCP Family Medicine; Referring Provider Emergency Medicine; Visit Provider Internal Medicine
DX: T85.614A Breakdown (mechanical) of insulin pump, initial encounter (principal); T38.3X1A Poisoning by insulin and oral hypoglycemic [antidiabetic] drugs, accidental (unintentional), initial encounter; E10.649 Type 1 diabetes mellitus with hypoglycemia without coma; E87.3 Alkalosis; T85.694A Other mechanical complication of insulin pump, initial encounter; G93.41 Metabolic encephalopathy; E10.43 Type 1 diabetes mellitus with diabetic autonomic (poly)neuropathy; K31.84 Gastroparesis; E03.9 Hypothyroidism, unspecified; R06.89 Other abnormalities of breathing; Z79.4 Long term (current) use of insulin; Z96.41 Presence of insulin pump (external) (internal); Z79.890 Hormone replacement therapy; K21.9 Gastro-esophageal reflux disease without esophagitis; E10.22 Type 1 diabetes mellitus with diabetic chronic kidney disease; D50.9 Iron deficiency anemia, unspecified; I12.9 Hypertensive chronic kidney disease with stage 1 through stage 4 chronic kidney disease, or unspecified chronic kidney disease; N18.9 Chronic kidney disease, unspecified; F41.1 Generalized anxiety disorder; Z86.14 Personal history of Methicillin resistant Staphylococcus aureus infection; Z87.01 Personal history of pneumonia (recurrent); Y83.1 Surgical operation with implant of artificial internal device as the cause of abnormal reaction of the patient, or of later complication, without mention of misadventure at the time of the procedure; F31.9 Bipolar disorder, unspecified; Z88.6 Allergy status to analgesic agent; Z88.5 Allergy status to narcotic agent
CPT/HCPCS: 36415; 36592; 36600; 70450; 74176; 80048; 80053; 80305; 80320; 80329; 82009; 82140; 82550; 82805; 82962; 83540; 83550; 83605; 83690; 84145; 84146; 84484; 85025; 87040; 87797; 93005; 94760; 96361; 96365; 96375; 96376; 99284; 99291; A9270; G0480; J1630; J1642; J1644; J1815; J2060; J2272; J2405; J2470; J2543; J7030; J7042; J7050; J7120

== ENCOUNTER 2024-12-22 00:39 | Emergency (ER) | payer OTHER, SELFPAY ==
[2024-12-13 18:28] VITALS: BMI 24.0
[2024-12-22] VITALS (13 sets, daily range): BP systolic 111–183; BP diastolic 69–116; PULSE 92–114; RESP 11–22; TEMP 36.6; O2SAT 93–100; BMI 22.9
--- NOTE | 2024-12-22 00:52 | ED_ITS ---
HPI - Abdominal Pain General Chief Complaint: Abdominal Pain Stated Complaint: abd pain, N/V Time Seen by Provider: 12/22/24 00:39 Source: patient and EMS Mode of arrival: EMS History of Present Illness HPI narrative: Patient is a 34-year-old male history of insulin-dependent diabetes gastroparesis frequent ED visits presenting today with abdominal pain nausea vomiting. He reports he is throwing up coffee-ground emesis. He has had increased abdominal pain over last 3 hours. Glucose initially 166. He denies any chest pain or shortness of breath. This is similar to prior presentations. Related Data Home Medications ?Medication ?Instructions ?Recorded ?Confirmed insulin pump syringe 3 mL 10/04/23 12/18/24 (Extended [place]) metoprolol succinate 50 mg 50 mg PO DAILY 10/22/2312/02 tablet,extended release 24 hr blood sugar diagnostic (True 12/24/23 12/18/24 Metrix Glucose Test Strip) blood-glucose meter (True Metrix 12/24/23 12/18/24 Glucose Meter) lancets 30 gauge (TRUEplus Lancets) 12/24/23 12/18/24 blood-glucose,cutter and presser,cont 01/14/24 12/18/24 (Dexcom G6 Loading Machine Tool Setter) Previous Rx's ?Medication ?Instructions ?Recorded levothyroxine 50 mcg tablet 50 mcg PO DAILY #90 tabs 0 10/22/23 blood-glucose transmitter (Dexcom #1 ea 01/18/24 G6 Transmitter device) insulin regular human 100 unit/mL See Rx Instructions .Route 02/04/24 injection solution (Humulin R .COMPLEX #10 mL Regular U-100 Insulin) suvorexant 20 mg tablet 20 mg PO BEDTIME PRN insomni a #30 07/12/24 tabs sildenafil 100 mg tablet 100 mg PO DAILY PRN sexual 0 08/24/24 activity #10 tabs tadalafil 5 mg tablet 5 mg PO DAILY #90 tabs 08/28 fluoxetine 40 mg capsule 40 mg PO QAM #30 caps pantoprazole 40 mg tablet,delayed 40 mg PO DAILY #30 t abs 10/19/24 release (Protonix) prochlorperazine maleate 10 mg 10 mg PO Q6H PRN nausea and 10/19/24 tablet (Compazine) vomiting #120 tabs sucralfate 100 mg/mL oral 10 ml PO QID #420 mL 5 suspension blood-glucose sensor (Dexcom G6 #3 ea 12/08/24 Sensor device) hydroxyzine HCl 10 mg tablet 10 mg PO 3XD PRN for anxi ety #84 12/08/24 tabs hydrocodone 5 mg-acetaminophen 325 1 tab PO TID PRN pa in #90 tabs 12/09/24 mg tablet Allergies Allergy/AdvReac Type Severity Reaction Status Date / Time aspirin (ASPIRIN) Allergy Unknown MAKES ME Verified 12/22/24 00:45 GO DEAF hydrocodone (HYDROCODONE) AdvReac Intermediate VOMITING Verified 12/22/24 00:45 ibuprofen (IBUPROFEN) AdvReac Intermediate HURTS Verified 12/22/24 00:45 KIDNEYS Patient History Medical History Anemia in other chronic diseases classified elsewhere Erectile dysfunction Insomnia Anxiety Migraines Headache Shoulder pain Osteoporosis Cataracts, bilateral Partial blindness GI bleeding Gastroparesis Gastric ulcer Chronic back pain MDD (major depressive disorder), recurrent episode, moderate Generalized anxiety disorder Compression fracture Chronic lower back pain HTN (hypertension) Hypothyroidism Marijuana use History of MRSA infection History of pneumonia Blurry vision, bilateral Diabetic neuropathy Bipolar disorder with depression Nausea and vomiting Diabetes type 1, uncontrolled Diabetic gastroparesis Surgical History No pertinent past surgical history Family History Mother No known health problems Father No known health problems Social History household members: family Smoking Status: Never smoker alcohol intake: never Smoking Status: Never smoker alcohol intake frequency: holidays/special occasions only Alcohol type: hard liquor Exam Initial Vital Signs Initial Vital Signs: Vital Signs Blood Pressure 162/107 H 12/22/24 00:42 Pulse Oximetry 95 12/22/24 00:42 GENERAL: Chronically ill 34-year-old male and in no acute distress. HEENT: Head atraumatic,EOMI, pupils reactive, face symmetric, dry mucous membranes CARDIOVASCULAR: Regular rate and rhythm without murmurs, rubs or gallops. RESPIRATORY: Breath sounds equal bilaterally, no wheezes rales or rhonchi. ABDOMEN: Soft, nontender. Normoactive bowel sounds all 4 quadrants. No guarding or rebound. EXTREMITIES: Normal range of motion, no clubbing or edema. Neurovascularly intact NEUROLOGICAL: Alert and oriented x4.Normal gait and speech. Cranial nerves II through XII grossly intact. SKIN: Warm, dry, no laceration, no petechiae, no rashes or lesions. Course Orders Ordered: ED Orders 12/22/24 01:13 EKG-12 Lead Stat pH Venous Blood STAT 12/22/24 01:20 CBC Auto Diff [Complete Blood Count AUTO DIFF] Stat CMP [Comprehensive Metabolic Panel] Stat Ketones (Beta-Hydroxybutyrate) Stat Lactate (Lactic Acid) Stat Lipase Stat Trop I [Troponin I] Stat 12/22/24 01:37 Venous Blood Gas Routine Discontinued Medications Hydromorphone HCl (Hydromorphone 1 Mg/Ml Syringe) 1 mg IV NOW ONE Stop: 12/22/24 01:14 Last Admin: 12/22/24 01:32 Dose: 1 mg Documented By: KELLE Hydromorphone HCl (Hydromorphone 1 Mg/Ml Syringe) 1 mg IV NOW ONE Stop: 12/22/24 02:37 Last Admin: 12/22/24 03:09 Dose: 1 mg Documented By: SHADI Hydromorphone HCl (Hydromorphone 1 Mg/Ml Syringe) 1 mg IV NOW ONE Stop: 12/22/24 04:09 Last Admin: 12/22/24 04:39 Dose: 1 mg Documented By: FERNANDO Sodium Chloride (Normal Saline 0.9%) 1,000 mls @ 1,000 mls/hr IV BOLUS ONE Stop: 12/22/24 02:12 Last Infusion: 12/22/24 02:29 Dose: Infused Documented By: Admin: 12/22/24 01:29 Dose: 1,000 mls/hr Documented By: KELLE Sodium Chloride (Normal Saline 0.9%) 1,000 mls @ 1,000 mls/hr IV BOLUS ONE Stop: 12/22/24 03:35 Last Infusion: 12/22/24 04:10 Dose: Infused Documented By: Admin: 12/22/24 03:09 Dose: 1,000 mls/hr Documented By: SHADI Ondansetron HCl (Ondansetron 4 Mg/2 Ml Inj) 4 mg IV NOW ONE Stop: 12/22/24 04:09 Last Admin: 12/22/24 04:40 Dose: 4 mg Documented By: FERNANDO Pantoprazole Sodium (Pantoprazole 40 Mg Vial) 40 mg IV NOW ONE Stop: 12/22/24 01:14 Last Admin: 12/22/24 01:31 Dose: 40 mg Documented By: KELLE Prochlorperazine (Prochlorperazine 10 Mg/2 Ml Vial) 10 mg IV NOW ONE Stop: 12/22/24 01:14 Last Admin: 12/22/24 01:31 Dose: 10 mg Documented By: KELLE Vital Signs Vital signs: Vital Signs - 8 hr 12/22/24 00:42 12/22/24 00:42 12/22/24 00:45 Temperature 97.8 F Pulse Rate 114 H Respiratory Rate 22 Blood Pressure 162/107 H 162/107 H Pulse Oximetry 95 100 Oxygen Delivery Method Room Air 12/22/24 01:00 12/22/24 01:00 12/22/24 01:30 Temperature Pulse Rate 101 H 113 H Respiratory Rate 11 L Blood Pressure 172/116 H Pulse Oximetry 93 100 Oxygen Delivery Method Room Air 12/22/24 01:30 12/22/24 02:00 12/22/24 02:00 Temperature Pulse Rate 101 H Respiratory Rate Blood Pressure 183/111 H 157/96 H Pulse Oximetry 95 Oxygen Delivery Method Room Air 12/22/24 02:30 12/22/24 02:30 12/22/24 03:00 Temperature Pulse Rate 92 H 93 H Respiratory Rate Blood Pressure 111/75 Pulse Oximetry 95 97 Oxygen Delivery Method Room Air Room Air 12/22/24 03:00 12/22/24 03:30 12/22/24 03:30 Temperature Pulse Rate 96 H Respiratory Rate Blood Pressure 122/79 150/91 H Pulse Oximetry 97 Oxygen Delivery Method Room Air 12/22/24 04:00 12/22/24 04:00 12/22/24 04:30 Temperature Pulse Rate 105 H 110 H Respiratory Rate Blood Pressure 154/85 H Pulse Oximetry 98 99 Oxygen Delivery Method Room Air Room Air 12/22/24 04:30 12/22/24 05:00 12/22/24 05:00 Temperature Pulse Rate 98 H Respiratory Rate 18 Blood Pressure 111/69 116/83 Pulse Oximetry 98 Oxygen Delivery Method Room Air 12/22/24 05:30 12/22/24 05:30 12/22/24 06:00 Temperature Pulse Rate 92 H 104 H Respiratory Rate 21 22 Blood Pressure 142/85 H Pulse Oximetry 93 99 Oxygen Delivery Method Room Air Room Air MDM - Abdominal Pain Lab Data 12/22/24 01:20 12/22/24 01:20 Labs: Lab Results 12/22/24 12/22/24 12/22/24 Range/Units 00:46 01:20 01:37 WBC 11.1 H (4.5-11.0) X10^3/uL RBC 5.00 (4.5-5.9) X10^6/uL Hgb 13.3 L (13.5-17.5) g/dL Hct 40.1 L (41-53) % MCV 80.2 (80-100) fL MCH 26.7 (26-34) PG MCHC 33.3 (30-36) % RDW 14.3 (11.6-14.8) % Plt Count 329 (150-400) X10^3/uL Neut % (Auto) 86.7 H (50-75) % Lymph % (Auto) 7.9 L (25-40) % [place] % (Auto) 4.7 (3-14) % Eos % (Auto) 0.0 L (2-4) % Baso % (Auto) 0.7 (0-2) % Neut # (Auto) 9700 H (4062-4225) /uL Lymph # (Auto) 900 L (8114-2916) /uL [place] # (Auto) 500 (0-900) /uL Eos # (Auto) 0 (0-450) /uL Baso # (Auto) 100 (0-100) /uL VBG pH 7.56 H (7.33-7.43) VBG pCO2 24.9 L (45-50) mmHg VBG pO2 29 L (35-45) mmHg VBG HCO3 22 L (24-28) mmol/L VBG Total CO2 21 L (24-29) mmol/L VBG O2 Saturation 67 L (70-75) % VBG Base Excess 1.4 (0-4) mmol/L Sodium 141 (137-145) mmol/L Potassium 4.1 (3.4-5.1) mmol/L Chloride 100 (98-107) mmol/L Carbon Dioxide 21 L (22-32) mmol/L BUN 20 (9-20) mg/dL Creatinine 1.43 H (0.66-1.25) mg/dL Estimated GFR > 60 (>60) mL/min BUN/Creatinine Ratio 14.0 (6-22) Glucose 191 H (70-99) mg/dL POC Whole Bld Glucose 166 H D (70-99) mg/dL Lactate 3.2 H (0.7-2.1) mmol/L Calcium 10.1 (8.4-10.2) mg/dL Total Bilirubin 0.9 (0.2-1.3) mg/dL AST 34 (17-59) IU/L ALT 23 (<50) IU/L Alkaline Phosphatase 103 (38-126) U/L Troponin I < 0.012 (0.01-0.034) ng/mL Total Protein 8.8 H (6.3-8.2) g/dL Albumin 5.1 H (3.5-5.0) g/dL Globulin 3.7 (1.7-4.1) g/dL Albumin/Globulin Ratio 1.4 (1.0-2.8) Lipase 26 (23-300) U/L Ketones 3.99 H (<0.27) mmol/L 12/22/ Range/Units 04:14 WBC (4.5-11.0) X10^3/uL RBC (4.5-5.9) X10^6/uL Hgb (13.5-17.5) g/dL Hct (41-53) % MCV (80-100) fL MCH (26-34) PG MCHC (30-36) % RDW (11.6-14.8) % Plt Count (150-400) X10^3/uL Neut % (Auto) (50-75) % Lymph % (Auto) (25-40) % [place] % (Auto) (3-14) % Eos % (Auto) (2-4) % Baso % (Auto) (0-2) % Neut # (Auto) (9902-4170) /uL Lymph # (Auto) (1811-3233) /uL [place] # (Auto) (0-900) /uL Eos # (Auto) (0-450) /uL Baso # (Auto) (0-100) /uL VBG pH (7.33-7.43) VBG pCO2 (45-50) mmHg VBG pO2 (35-45) mmHg VBG HCO3 (24-28) mmol/L VBG Total CO2 (24-29) mmol/L VBG O2 Saturation (70-75) % VBG Base Excess (0-4) mmol/L Sodium (137-145) mmol/L Potassium (3.4-5.1) mmol/L Chloride (98-107) mmol/L Carbon Dioxide (22-32) mmol/L BUN (9-20) mg/dL Creatinine (0.66-1.25) mg/dL Estimated GFR (>60) mL/min BUN/Creatinine Ratio (6-22) Glucose (70-99) mg/dL POC Whole Bld Glucose (70-99) mg/dL Lactate 2.1 (0.7-2.1) mmol/L Calcium (8.4-10.2) mg/dL Total Bilirubin (0.2-1.3) mg/dL AST (17-59) IU/L ALT (<50) IU/L Alkaline Phosphatase (38-126) U/L Troponin I (0.01-0.034) ng/mL Total Protein (6.3-8.2) g/dL Albumin (3.5-5.0) g/dL Globulin (1.7-4.1) g/dL Albumin/Globulin Ratio (1.0-2.8) Lipase (23-300) U/L Ketones (<0.27) mmol/L ECG Data Attestation: I personally reviewed and interpreted this ECG as follows: MDM Narrative Medical decision making narrative: MDM CC: Abdominal pain vomiting Complicating co-morbidities: Insulin-dependent diabetic Data collected from: Patient records. He has had multiple CT scans he recently had a CT scan on December 13 which did not show any abnormality Medical records reviewed: ED visit 12/13/[address] of his abdomen no acute process that admission he was here for hypoglycemia Differential considered: DKA, gastritis, chronic pain Exam documented above, pertinent findings include: Alert 34-year-old male dry mucous membranes Ativan soft breath sounds Lab Test results independently reviewed as above. Pertinent findings: Glucose 191 Venous pH 7.56 Ketones 3.99 Anion gap 20 CBC mild leukocytosis of 11 no anemia Electrolytes within normal limits Lactate 3.2-->2.1 Imaging studies independently reviewed:none Consultations: none Treatments: IV fluids, Dilaudid, Compazine, Reglan Re-evaluations: I attempted p.o. challenge however started feeling nauseous about 30 minutes after having increased abdominal pain wanting more pain medication. Discussion: Patient 34-year-old male frequent visits to the ED, insulin- dependent diabetes presenting today with abdominal pain nausea vomiting. He has received multiple doses of pain medications along nausea medications he is no longer actively vomiting. No evidence of DKA. At this time he has received 3 doses of Dilaudid I have told him he is not getting anymore he is no longer vomiting and he feels ready and able to go. As grandmother is picking him up. At this time he does not need any further imaging this is similar to previous presentations Discharge Plan Departure Patient Disposition: Home Clinical Impression: Gastroparesis Instructions: Gastroparesis Activity Restrictions/Additional Instructions: *You have been diagnosed with gastroparesis *What to do: Increase fluids as tolerated *Continue to take medications as directed *Follow up with your primary care provider in 2-3 days or call [phone] *Return to ER if you should have any new, worsening or concerning symptoms Prescriptions: No Action (DME) Dexcom G6 Transmitter Device See Rx Instructions .Route Qty: 1 3RF Rx Instructions: continuously monitor blood sugars Humulin R Regular U-100 Insuln 100 unit/mL solution See Rx Instructions .ROUTE .COMPLEX Qty: 10 3RF Rx Instructions: 40 units via insulin pump max daily dose 45 units suvorexant 20 mg tablet 20 mg PO BEDTIME PRN (Reason: insomnia) Qty: 30 2RF sildenafil 100 mg tablet 100 mg PO DAILY PRN (Reason: sexual activity) Qty: 10 2RF fluoxetine 40 mg capsule 40 mg PO QAM Qty: 30 2RF (DME) Dexcom G6 Sensor Device See Rx Instructions .ROUTE .COMPLEX Qty: 3 8RF Dose Instruction: use to continuously monitor blood sugars, CHANGE EVERY 10 DAYS Rx Instructions: use to continuously monitor blood sugars, CHANGE EVERY 10 DAYS hydroxyzine HCl 10 mg tablet 10 mg PO 3XD PRN (Reason: for anxiety) Qty: 84 0RF hydrocodone-acetaminophen 5-325 mg tablet 1 tab PO TID PRN (Reason: pain) Qty: 90 0RF metoprolol succinate 50 mg tablet extended release 24 hr 50 mg PO DAILY levothyroxine 50 mcg tablet 50 mcg PO DAILY Qty: 90 1RF (DME) Extended [place] 3 mL [facility] [place] MISCELLANEOUS Rx Instructions: patient uses insulin pump (DME) True Metrix Glucose Test Strip Strip MISCELLANEOUS 4XD (DME) lancets [TRUEplus Lancets] 30 gauge misc MISCELLANEOUS 4XD (DME) blood-glucose meter [True Metrix Glucose Meter] [facility] [place] MISCELLANEOUS (DME) Dexcom G6 Loading Machine Tool Setter [facility] [place] MISCELLANEOUS Patient Comments: [NO ORIGINAL SIG] prochlorperazine maleate [Compazine] 10 mg tablet 10 mg PO Q6H PRN (Reason: nausea and vomiting) Qty: 120 1RF sucralfate 100 mg/mL suspension 10 ml PO QID Qty: 420 1RF Rx Instructions: swish in mouth and swallow; use after food/drink pantoprazole [Protonix] 40 mg tablet,delayed release (DR/EC) 40 mg PO DAILY Qty: 30 1RF tadalafil 5 mg tablet 5 mg PO DAILY Qty: 90 2RF Referrals: James Jung DO [Primary Care Provider, Family Practice] Stand Alone Forms: Patient Portal/API
[2024-12-22] MEDS: SODIUM CHLORIDE 0.9% 1,000 ML 1000 ML IV ×2 (01:29→03:09)
[2024-12-22] MEDS: PANTOPRAZOLE 40 MG VIAL IV (01:31)
[2024-12-22] MEDS: PROCHLORPERAZINE 10 MG/2 ML VIAL IV (01:31)
[2024-12-22 01:36] LABS: Add Manual Diff / Slide Review NO; Hematocrit 40.1 % (41-53); Hemoglobin 13.3 g/dL (13.5-17.5); Lymphocytes Absolute Auto 900 /uL (1100-4500); Mean Corpuscular HGB Conc 33.3 % (30-36); Mean Corpuscular Hemoglobin 26.7 PG (26-34); Mean Corpuscular Volume 80.2 fL (80-100); Platelet Count 329 X10^3/uL (150-400)
[2024-12-22 01:42] LABS: Base Excess VBG 1.4 mmol/L (0-4); HCO3 VBG 22 mmol/L (24-28); Oxygen Saturation VBG 67 % (70-75); PCO2 VBG 24.9 mmHg (45-50); PO2 VBG 29 mmHg (35-45); Total CO2 VBG 21 mmol/L (24-29); pH VBG 7.56 (7.33-7.43)
[2024-12-22 02:11] LABS: Alanine Aminotransferase 23 IU/L (<50); Albumin 5.1 g/dL (3.5-5.0); Albumin Globulin Ratio 1.4 (1.0-2.8); Alkaline Phosphatase 103 U/L (38-126); Blood Urea Nitrogen 20 mg/dL (9-20); Calcium 10.1 mg/dL (8.4-10.2); Carbon Dioxide 21 mmol/L (22-32); Chloride 100 mmol/L (98-107); Estimated Glomerular Filt Rate > 60 mL/min (>60); Globulin 3.7 g/dL (1.7-4.1); Glucose 191 mg/dL (70-99); Lipase 26 U/L (23-300); Potassium 4.1 mmol/L (3.4-5.1); Sodium 141 mmol/L (137-145); Total Protein 8.8 g/dL (6.3-8.2)
[2024-12-22 02:12] LABS: Lactate (Lactic Acid) 3.2 mmol/L (0.7-2.1)
[2024-12-22 02:22] LABS: Troponin I < 0.012 ng/mL (0.01-0.034)
[2024-12-22 02:39] LABS: HEMOLYSIS 16 (0-50); Ketones (Beta-Hydroxybutyrate) 3.99 mmol/L (<0.27)
[2024-12-22 03:06] LABS: Reflexed Lactate in 2 Hours Y
--- NOTE | 2024-12-22 03:50 | PC.NURSE ---
Pt given cup of ice water per Dr. Stearns for po challeng and informed to take sips.
--- NOTE | 2024-12-22 04:09 | PC.NURSE ---
PO challenge successful. Most water drank at this time. Then pt presses call light and informs RN that he is nauseous and pain is returning. Dr. Stearns made aware.
[2024-12-22 04:32] LABS: Lactate 2HR (Lactic Acid Rflx) 2.1 mmol/L (0.7-2.1)
[2024-12-22] MEDS: ONDANSETRON 4 MG/2 ML INJ IV (04:40)
== END 2024-12-22 06:14 | disposition home or self-care (01) ==
PROVIDERS: Emergency Provider Emergency Medicine; Family Provider Nurse Practitioner Family; PCP Family Medicine
DX: E10.43 Type 1 diabetes mellitus with diabetic autonomic (poly)neuropathy (principal); K31.84 Gastroparesis; Z79.4 Long term (current) use of insulin; R11.2 Nausea with vomiting, unspecified
CPT/HCPCS: 36415; 80053; 82009; 82805; 82962; 83605; 83690; 84484; 85025; 96361; 96374; 96375; 96376; 99284; J0780; J1171; J2405; J2470; J7030

== ENCOUNTER 2024-12-23 14:54 | Inpatient (IN) | payer OTHER, SELFPAY ==
[2024-12-13 18:28] VITALS: BMI 24.0
[2024-12-23] VITALS (18 sets, daily range): BP systolic 127–204; BP diastolic 77–128; PULSE 75–118; RESP 16–22; TEMP 36.1–36.2; O2SAT 94–100; BMI 22.9
[2024-12-23] MEDS: PROCHLORPERAZINE 10 MG/2 ML VIAL 5 MG IV (16:08)
[2024-12-23] MEDS: SODIUM CHLORIDE 0.9% 1,000 ML 1000 ML IV (16:13)
[2024-12-23 16:15] LABS: Add Manual Diff / Slide Review NO; Hematocrit 40.7 % (41-53); Hemoglobin 13.5 g/dL (13.5-17.5); Lymphocytes Absolute Auto 1100 /uL (1100-4500); Mean Corpuscular HGB Conc 33.3 % (30-36); Mean Corpuscular Hemoglobin 26.6 PG (26-34); Mean Corpuscular Volume 79.8 fL (80-100); Platelet Count 337 X10^3/uL (150-400)
[2024-12-23 16:19] LABS: Base Excess VBG 2.1 mmol/L (0-4); HCO3 VBG 23 mmol/L (24-28); Oxygen Saturation VBG 76 % (70-75); PCO2 VBG 25.9 mmHg (45-50); PO2 VBG 34 mmHg (35-45); Total CO2 VBG 22 mmol/L (24-29); pH VBG 7.56 (7.33-7.43)
[2024-12-23 16:30] LABS: Alanine Aminotransferase 21 IU/L (<50); Albumin 5.2 g/dL (3.5-5.0); Albumin Globulin Ratio 1.3 (1.0-2.8); Alkaline Phosphatase 116 U/L (38-126); Blood Urea Nitrogen 18 mg/dL (9-20); Calcium 9.5 mg/dL (8.4-10.2); Carbon Dioxide 19 mmol/L (22-32); Chloride 96 mmol/L (98-107); Estimated Glomerular Filt Rate > 60 mL/min (>60); Globulin 3.9 g/dL (1.7-4.1); Glucose 143 mg/dL (70-99); HEMOLYSIS < 15 (0-50); Lipase 31 U/L (23-300); Potassium 3.5 mmol/L (3.4-5.1); Sodium 138 mmol/L (137-145); Total Protein 9.1 g/dL (6.3-8.2)
--- NOTE | 2024-12-23 16:31 | EKG_ITS ---
[address] [id number] [address] [address] Test Date: 2024-12-23 Pat Name: Valentin Noble Department: [facility] Room: Gender: Male Child Life Specialist: ASHLYN : 1990 Requested By: Order Number: [id number] Reading MD: Guy Plummer MD Measurements Intervals [place] Rate: 114 P: 66 GA: 144 QRS: -35 QRSD: 84 T: 78 QT: 352 QTc: 485 Interpretive Statements Sinus tachycardia Left axis deviation Electronically Signed On 12-24-2024 8:31:21 PST by Guy Plummer MD
[2024-12-23 16:47] LABS: Appearance Urine UA CLEAR; Bilirubin Urine UA 1+ (NEGATIVE); Color Urine UA YELLOW; Glucose Urine UA NEGATIVE (Negative); Ketones Urine UA 3+ (NEGATIVE); Leukocyte Esterase Urine UA NEGATIVE (NEGATIVE); Nitrite Urine UA NEGATIVE (Negative); Occult Blood Urine UA TRACE-INTACT (Negative); Protein Urine UA 2+ (Negative); Specific Gravity Urine UA 1.025 (1.000-1.035); Urobilinogen Urine UA 0.2 E.U./dL (0.2); pH Urine UA 6.5 (4.5-8.0)
[2024-12-23 16:52] LABS: Ictotest Urine Negative (Negative)
[2024-12-23] MEDS: ONDANSETRON 4 MG/2 ML INJ IV (18:02)
--- NOTE | 2024-12-23 18:10 | ED.NAVMDI ---
HPI - Nausea/Vomiting/Diarrhea General Chief complaint: Nausea/Vomiting/Diarrhea Stated complaint: persistent vomiting x 3days Time Seen by Provider: 12/23/24 18:09 Source: patient Mode of arrival: Ambulatory History of Present Illness HPI Narrative: 34-year-old male patient with history of type 1 diabetes / gastroparesis/DKA/ diabetic neuropathy, hypertension, hypothyroidism and anxiety/depression who has had multiple visits for nausea, vomiting and gastroparesis. Admissions for DKA in the past. He presents with nausea, vomiting and abdominal discomfort in the epigastrium and upper abdomen over the last 3 days. No fever, chills or dysuria. No previous abdominal surgeries Related Data Home Medications ?Medication ?Instructions ?Recorded ?Confirmed insulin pump syringe 3 mL 10/04/23 12/23/24 (Extended [place]) metoprolol succinate 50 mg 50 mg PO DAILY 10/22/23 12/23/24 tablet,extended release 24 hr blood sugar diagnostic (True 12/24/23 12/23/24 Metrix Glucose Test Strip) blood-glucose meter (True Metrix 12/24/23 12/23/24 Glucose Meter) lancets 30 gauge (TRUEplus Lancets) 12/24/23 12/23/24 blood-glucose,paint department supervisor,cont 01/14/24 12/23/24 (Dexcom G6 Emergency Room Specialist) Previous Rx's ?Medication ?Instructions ?Recorded levothyroxine 50 mcg tablet 50 mcg PO DAILY #90 tabs 10/22/23 blood-glucose transmitter (Dexcom #1 ea 01/18/24 G6 Transmitter device) insulin regular human 100 unit/mL See Rx Instructions .Route 02/04/24 injection solution (Humulin R .COMPLEX #10 mL Regular U-100 Insulin) suvorexant 20 mg tablet 20 mg PO BEDTIME PRN insomnia #30 07/12/24 tabs sildenafil 100 mg tablet 100 mg PO DAILY PRN sexual 08/24/24 activity #10 tabs tadalafil 5 mg tablet 5 mg PO DAILY #90 tabs 08/28/24 fluoxetine 40 mg capsule 40 mg PO QAM #30 caps 10/10/24 pantoprazole 40 mg tablet,delayed 40 mg PO DAILY #30 tabs 10/19/24 release (Protonix) prochlorperazine maleate 10 mg 10 mg PO Q6H PRN nausea and 10/19/24 tablet (Compazine) vomiting #120 tabs sucralfate 100 mg/mL oral 10 ml PO QID #420 mL 10/19/24 suspension blood-glucose sensor (Dexcom G6 #3 ea 12/08/24 Sensor device) hydroxyzine HCl 10 mg tablet 10 mg PO 3XD PRN for anxiety #84 12/08/24 tabs hydrocodone 5 mg-acetaminophen 325 1 tab PO TID PRN pain #90 tabs 12/09/24 mg tablet Allergies Allergy/AdvReac Type Severity Reaction Status Date / Time aspirin (ASPIRIN) Allergy Unknown MAKES ME Verified 12/23/24 15:04 GO DEAF hydrocodone (HYDROCODONE) AdvReac Intermediate VOMITING Verified 12/23/24 15:04 ibuprofen (IBUPROFEN) AdvReac Intermediate HURTS Verified 12/23/24 15:04 KIDNEYS Review of Systems Review of Systems ROS Unobtainable: All systems reviewed & are unremarkable except as noted in HPI and below Gastrointestinal Gastrointestinal: Reports as per HPI Patient History Medical History (Updated 12/23/24 @ 21:45 by Juan Odell MD) Anemia in other chronic diseases classified elsewhere Erectile dysfunction Insomnia Anxiety Migraines Osteoporosis Cataracts, bilateral Partial blindness Gastric ulcer MDD (major depressive disorder), recurrent episode, moderate Chronic lower back pain Hypothyroidism Marijuana use History of MRSA infection History of pneumonia Blurry vision, bilateral Diabetic neuropathy Bipolar disorder with depression Nausea and vomiting Diabetes type 1, uncontrolled Diabetic gastroparesis Surgical History No pertinent past surgical history Family History Mother No known health problems Father No known health problems Social History household members: family alcohol intake: never alcohol intake frequency: holidays/special occasions only Alcohol type: hard liquor Exam Narrative Exam Narrative: General: Alert and conversant. Mild distress. Appears well nourished Craniofacial: No evidence of trauma. Nontender and no swelling. Eyes: PERRLA EOMI conjunctiva clear Lungs: Clear to auscultation with good air movement. No wheezing, rales or rhonchi. No respiratory distress Cardiac: Regular rate and rhythm with no appreciable murmur or gallop Abdomen: Soft, Diffuse mild tenderness. with no distention or masses. Normal bowel sounds. No rebound or guarding Musculoskeletal: Exam of the extremities, axial spine and ribcage reveals no deformity, bony tenderness or swelling. Range of motion intact Neuro: Alert and oriented. Cranial nerves, motor, sensory and cerebellar all grossly intact. No focal deficit Skin: Warm and normal color. No rashes Psychological: Normal affect and interaction. No evidence of delusion or psychosis. Normal mood. Initial Vital Signs Initial Vital Signs: Vital Signs Temperature 97 F L 12/23/24 15:04 Pulse Rate 102 H 12/23/24 15:04 Respiratory Rate 18 12/23/24 15:04 Blood Pressure 133/88 12/23/24 15:04 Pulse Oximetry 100 12/23/24 15:04 Oxygen Delivery Method Room Air 12/23/24 15:04 Course Course Course Narrative: 21:15 I discussed the patient's care with Dr. Fuentes, hospitalist who agrees to admit him on observation for gastroparesis/cyclic vomiting with intractable nausea and vomiting that has been persistent. Probable dehydration. Decision to Admit Date: 12/23/24 Decision to Admit time: 21:15 Orders Ordered: ED Orders 12/23/24 15:50 Complete Blood Count AUTO DIFF Stat Comprehensive Metabolic Panel Stat Ictotest Urine Stat Lipase Stat Urinalysis and Microscopic Stat 12/23/24 16:02 EKG-12 Lead Stat 12/23/24 16:05 Venous Blood Gas STAT 12/23/24 16:14 Venous Blood Gas Routine Acetaminophen (Acetaminophen 325 Mg Tablet) 650 mg PO Q6H PRN PRN Reason: Fever/Mild Pain (1-3) Hydromorphone HCl (Hydromorphone 1 Mg/Ml Syringe) 0.5 mg IV Q4H PRN PRN Reason: Pain, Severe (7-10) Stop: 12/24/24 06:00 Last Admin: 12/23/24 22:12 Dose: 0.5 mg Documented By: AD Sodium Chloride (Normal Saline 0.9%) 1,000 mls @ 100 mls/hr IV CONT XENA Last Admin: 12/23/24 22:00 Dose: 100 mls/hr Documented By: AT Naloxone HCl (Naloxone 0.4 Mg/Ml Vial) 0.2 mg IV Q2MIN PRN PRN Reason: Opiate Reversal Ondansetron HCl (Ondansetron 4 Mg/2 Ml Inj) 4 mg IV NOW PRN PRN Reason: Nausea And Vomiting Last Admin: 12/23/24 18:02 Dose: 4 mg Documented By: SHIV Ondansetron HCl (Ondansetron 4 Mg Odt) 4 mg PO NOW PRN PRN Reason: Nausea And Vomiting Ondansetron HCl (Ondansetron 4 Mg/2 Ml Inj) 4 mg IV Q8HR PRN PRN Reason: Nausea And Vomiting Prochlorperazine (Prochlorperazine 10 Mg/2 Ml Vial) 10 mg IV Q6H PRN PRN Reason: nausea vomiting Last Admin: 12/23/24 22:12 Dose: 10 mg Documented By: ROSALIA Promethazine HCl (Promethazine 12.5 Mg Supp) 12.5 mg [place] Q6HR PRN PRN Reason: Nausea And Vomiting Discontinued Medications Diphenhydramine HCl (Diphenhydramine 50 Mg/Ml Vial) 25 mg IV NOW ONE Stop: 12/23/24 18:29 Last Admin: 12/23/24 18:43 Dose: 25 mg Documented By: SHIV Haloperidol (Haloperidol 5 Mg/Ml Vial) 5 mg IV NOW ONE Stop: 12/23/24 18:28 Last Admin: 12/23/24 18:43 Dose: 5 mg Documented By: SHIV Sodium Chloride (Normal Saline 0.9%) 1,000 mls @ 1,000 mls/hr IV BOLUS ONE Stop: 12/23/24 17:04 Last Infusion: 12/23/24 17:58 Dose: Infused Documented By: Admin: 12/23/24 16:13 Dose: 1,000 mls/hr Documented By: DMITRI Lactated Ringer's (Lactated Ringers) 500 mls @ 1,000 mls/hr IV BOLUS ONE Stop: 12/23/24 18:57 Last Infusion: 12/23/24 19:18 Dose: Infused Documented By: Admin: 12/23/24 18:44 Dose: 1,000 mls/hr Documented By: SHIV Lorazepam (Lorazepam 2 Mg/Ml Inj) 1 mg IV NOW ONE Stop: 12/23/24 18:29 Last Admin: 12/23/24 18:43 Dose: 1 mg Documented By: SHIV Prochlorperazine (Prochlorperazine 10 Mg/2 Ml Vial) 5 mg IV NOW ONE Stop: 12/23/24 16:05 Last Admin: 12/23/24 16:08 Dose: 5 mg Documented By: DMITRI Vital Signs Vital signs: Vital Signs - 8 hr 12/23/24 17:00 12/23/24 17:00 12/23/24 17:30 Pulse Rate 96 H Respiratory Rate 21 Blood Pressure 143/82 H 139/90 Pulse Oximetry 96 Oxygen Delivery Method 12/23/24 17:30 12/23/24 18:00 12/23/24 18:00 Pulse Rate 97 H 118 H Respiratory Rate 16 17 Blood Pressure 188/111 H Pulse Oximetry 97 98 Oxygen Delivery Method Room Air 12/23/24 18:30 12/23/24 18:30 12/23/24 18:43 Pulse Rate 109 H Respiratory Rate Blood Pressure 173/109 H 158/90 H Pulse Oximetry 98 Oxygen Delivery Method 12/23/24 18:43 12/23/24 19:00 12/23/24 19:00 Pulse Rate 114 H 92 H Respiratory Rate 20 Blood Pressure 137/83 Pulse Oximetry 99 94 Oxygen Delivery Method Room Air 12/23/24 19:30 12/23/24 19:30 12/23/24 20:00 Pulse Rate 90 93 H Respiratory Rate 20 Blood Pressure 127/77 Pulse Oximetry 97 96 Oxygen Delivery Method Room Air 12/23/24 20:00 12/23/24 20:30 12/23/24 21:00 Pulse Rate 109 H 91 H Respiratory Rate Blood Pressure 138/88 Pulse Oximetry Oxygen Delivery Method 12/23/24 21:00 12/23/24 21:30 12/23/24 21:30 Pulse Rate 92 H Respiratory Rate Blood Pressure 157/100 H 149/92 H Pulse Oximetry Oxygen Delivery Method MDM - Nausea/Vomiting/Diarrhea Differential Diagnosis Differential diagnosis: Likely food poisoning, gastroenteritis, drug-induced nausea and vomiting and other ( Gastroparesis. Cannabis hyperemesis and cyclic vomiting syndrome) Condition is:: Inadequately Controlled Chronic Condition is having:: Moderate exacerbation Discussed with:: hospitalist Medical Records Attestation: I reviewed the patient's medical records. Lab Data Attestation: I reviewed the patient's lab results. 12/23/24 15:50 12/23/24 15:50 Labs: Lab Results 11/15/25 11/15/25 11/15/25 Range/Units 15:09 15:50 16:14 WBC 10.2 (4.5-11.0) X10^3/uL RBC 5.09 (4.5-5.9) X10^6/uL Hgb 13.5 (13.5-17.5) g/dL Hct 40.7 L (41-53) % MCV 79.8 L (80-100) fL MCH 26.6 (26-34) PG MCHC 33.3 (30-36) % RDW 14.3 (11.6-14.8) % Plt Count 337 (150-400) X10^3/uL Neut % (Auto) 82.9 H (50-75) % Lymph % (Auto) 10.9 L (25-40) % [place] % (Auto) 5.7 (3-14) % Eos % (Auto) 0.0 L (2-4) % Baso % (Auto) 0.5 (0-2) % Neut # (Auto) 8500 H (1382-2942) /uL Lymph # (Auto) 1100 (7544-0005) /uL [place] # (Auto) 600 (0-900) /uL Eos # (Auto) 0 (0-450) /uL Baso # (Auto) 0 (0-100) /uL VBG pH 7.56 H (7.33-7.43) VBG pCO2 25.9 L (45-50) mmHg VBG pO2 34 L (35-45) mmHg VBG HCO3 23 L (24-28) mmol/L VBG Total CO2 22 L (24-29) mmol/L VBG O2 Saturation 76 H (70-75) % VBG Base Excess 2.1 (0-4) mmol/L FiO2 % 21.0 % % Sodium 138 (137-145) mmol/L Potassium 3.5 (3.4-5.1) mmol/L Chloride 96 L (98-107) mmol/L Carbon Dioxide 19 L (22-32) mmol/L BUN 18 (9-20) mg/dL Creatinine 1.47 H (0.66-1.25) mg/dL Estimated GFR > 60 (>60) mL/min BUN/Creatinine Ratio 12.2 (6-22) Glucose 143 H (70-99) mg/dL POC Whole Bld Glucose 105 H (70-99) mg/dL Calcium 9.5 (8.4-10.2) mg/dL Total Bilirubin 1.1 (0.2-1.3) mg/dL AST 32 (17-59) IU/L ALT 21 (<50) IU/L Alkaline Phosphatase 116 (38-126) U/L Total Protein 9.1 H (6.3-8.2) g/dL Albumin 5.2 H (3.5-5.0) g/dL Globulin 3.9 (1.7-4.1) g/dL Albumin/Globulin Ratio 1.3 (1.0-2.8) Lipase 31 (23-300) U/L Urine Color Yellow Urine Appearance Clear Urine pH 6.5 (4.5-8.0) Ur Specific [place] 1.025 (1.000-1.035) Urine Protein 2+ H (Negative) Urine Glucose (UA) Negative (Negative) g/dL Urine Ketones 3+ H (NEGATIVE) Urine Occult Blood Trace-intact (Negative) Urine Nitrate Negative (Negative) Urine Bilirubin 1+ H (NEGATIVE) Ur Bilirubin Confirm Negative (Negative) Urine Urobilinogen 0.2 (0.2) E.U./dL Ur Leukocyte Esterase Negative (NEGATIVE) Urine RBC 1-5/hpf (0-5/HPF) Urine WBC None seen (0-5/HPF) Ur Squamous Epith Cells None seen (0-5/HPF) Urine Bacteria None seen (None) Hyaline Casts 1-5/lpf (None) Vol Urine Centrifuged 10ml (spun) Point of Care Testing Glucose POC 105 MDM Narrative Medical decision making narrative: 18:20 patient presents with recurrent nausea, vomiting abdominal discomfort for 3 days. He has had admissions for this before. He has had DKA but currently has elevated PH and glucose in the 100s. He does have ketones in his urine but does appear dehydrated. He has received Compazine and ondansetron with 1 L of fluids. He says his nausea and vomiting have not improved. He is requesting Dilaudid and lorazepam. I have added 1 L of lactated Ringer's, haloperidol 5 mg, Benadryl, 25 mg and lorazepam 1 mg. after 2 different reassessments the patient has not improved and still feels very nauseated in his retching and vomiting. I discussed his care with the hospitalist, Dr. Rodriguez who agrees to admit him on observation for intractable nausea and vomiting secondary to probably a combination of gastroparesis, cyclic vomiting syndrome and possibly cannabis hyperemesis Discharge Plan Departure Patient Disposition: Admitted as Observation Clinical Impression: Intractable cyclical vomiting with nausea, Diabetic gastroparesis Admit Date/Time: 12/23/24 21:30 Admit Provider: Edgard Balderas
[2024-12-23] MEDS: HALOPERIDOL 5 MG/ML VIAL IV (18:43)
[2024-12-23] MEDS: diphenhydrAMINE 50 MG/ML VIAL 25 MG IV (18:43)
[2024-12-23] MEDS: LACTATED RINGERS 500 ML 1000 ML IV (18:44)
[2024-12-23] MEDS: SODIUM CHLORIDE 0.9% 1,000 ML 100 ML IV (22:00)
[2024-12-23] MEDS: PROCHLORPERAZINE 10 MG/2 ML VIAL IV (22:12)
[2024-12-24] MEDS: ONDANSETRON 4 MG/2 ML INJ IV ×3 (01:59→17:55)
[2024-12-24] MEDS: SODIUM CHLORIDE 0.9% 1,000 ML 100 ML IV ×2 (05:56→16:32)
[2024-12-24] MEDS: PROCHLORPERAZINE 10 MG/2 ML VIAL IV (05:56)
--- NOTE | 2024-12-24 06:51 | PM.HP.1 ---
History of Present Illness History of Present Illness Date Patient Seen: 12/23/24 Time Patient Seen: 23:20 Chief complaint: persistent vomiting x 3days Narrative: 34-year-old male with past medical history of insulin dependent diabetes with insulin pump, known history of gastroparesis, recurrent DKA, diabetic neuropathy, hypertension, hypothyroidism, anxiety, depression prior marijuana use presents with nausea, vomiting. Per the patient's report, over the last 3 days the patient has had increasing nausea and vomiting. The patient denies any diarrhea. The patient states that was difficult to hold much fluid down due to the severe nausea and vomiting. Patient states that his last use of marijuana was a few months ago. Otherwise today patient denies any fever, chills, chest pain, dysuria, coughing, shortness of breath or syncope. In the emergency room, the patient was hemodynamically stable. Labs shows a creatinine 1.47 but otherwise relatively benign. UA was negative for any UTI. The patient was given IV fluid and IV antiemetics. Due to ongoing nausea and vomiting ER physician requested admission to observation. [facility] Medical History (Updated 12/23/24 @ 21:45 by Juan Odell MD) Anemia in other chronic diseases classified elsewhere Erectile dysfunction Insomnia Anxiety Migraines Osteoporosis Cataracts, bilateral Partial blindness Gastric ulcer MDD (major depressive disorder), recurrent episode, moderate Chronic lower back pain Hypothyroidism Marijuana use History of MRSA infection History of pneumonia Blurry vision, bilateral Diabetic neuropathy Bipolar disorder with depression Nausea and vomiting Diabetes type 1, uncontrolled Diabetic gastroparesis Surgical History No pertinent past surgical history Family History Mother No known health problems Father No known health problems Social History household members: family alcohol intake: never Meds Home Medications and Allergies Home Medications ?Medication ?Instructions ?Recorded ?Confirmed ?Type insulin pump syringe 3 mL 10/04/23 12/23/24 History (Extended [place]) levothyroxine 50 mcg tablet 50 mcg PO DAILY #90 tabs 10/22/23 12/23/24 Rx metoprolol succinate 50 mg 50 mg PO DAILY 10/22/23 12/23/24 History tablet,extended release 24 hr blood sugar diagnostic (True 12/24/23 12/23/24 History Metrix Glucose Test Strip) blood-glucose meter (True Metrix 12/24/23 12/23/24 History Glucose Meter) lancets 30 gauge (TRUEplus Lancets) 12/24/23 12/23/24 History blood-glucose,retail pricing coordinator,cont 01/14/24 12/23/24 History (Dexcom G6 [employer] Manager) blood-glucose transmitter (Dexcom #1 ea 01/18/24 12/23/24 Rx G6 Transmitter device) insulin regular human 100 unit/mL See Rx Instructions .Route 02/04/24 12/23/24 Rx injection solution (Humulin R .COMPLEX #10 mL Regular U-100 Insulin) suvorexant 20 mg tablet 20 mg PO BEDTIME PRN insomnia #30 07/12/24 12/23/24 Rx tabs sildenafil 100 mg tablet 100 mg PO DAILY PRN sexual 08/24/24 12/23/24 Rx activity #10 tabs tadalafil 5 mg tablet 5 mg PO DAILY #90 tabs 08/28/24 12/23/24 Rx fluoxetine 40 mg capsule 40 mg PO QAM #30 caps 10/10/24 12/23/24 Rx pantoprazole 40 mg tablet,delayed 40 mg PO DAILY #30 tabs 10/19/24 12/23/24 Rx release (Protonix) prochlorperazine maleate 10 mg 10 mg PO Q6H PRN nausea and 10/19/24 12/23/24 Rx tablet (Compazine) vomiting #120 tabs sucralfate 100 mg/mL oral 10 ml PO QID #420 mL 10/19/24 12/23/24 Rx suspension blood-glucose sensor (Dexcom G6 #3 ea 12/08/24 12/23/24 Rx Sensor device) hydroxyzine HCl 10 mg tablet 10 mg PO 3XD PRN for anxiety #84 12/08/24 12/23/24 Rx tabs hydrocodone 5 mg-acetaminophen 325 1 tab PO TID PRN pain #90 tabs 12/09/24 12/23/24 Rx mg tablet Allergies Allergy/AdvReac Type Severity Reaction Status Date / Time aspirin (ASPIRIN) Allergy Unknown MAKES ME Verified 12/23/24 15:04 GO DEAF hydrocodone (HYDROCODONE) AdvReac Intermediate VOMITING Verified 12/23/24 15:04 ibuprofen (IBUPROFEN) AdvReac Intermediate HURTS Verified 12/23/24 15:04 KIDNEYS Review of Systems Review of Systems ROS: Yes All systems reviewed with the patient and are negative except as otherwise documented Exam Vital Signs (past 8 hours): Oxygen Delivery Method Room Air Oxygen Flow Rate 0 Narrative Exam Narrative: Physical Exam: GENERAL: The patient is not in any acute distressed. Awake and alert. HEENT: Nonicteric sclerae, PERRLA, EOMI. Oropharynx clear. Moist mucous membranes. Conjunctivae appear well perfused. HEART: Regular rate and rhythm without murmurs. No lower extremities edema. LUNGS: Clear to auscultation bilaterally. No wheezing, crackles or rhonchi ABDOMEN: Soft, positive bowel sounds, nontender. SKIN: No rash, no excessive bruising, petechiae, or purpura. NEUROLOGIC: AxO x 3. Cranial nerves II-XII intact without motor/sensory deficit. Objective Labs 12/23/24 15:50 12/23/24 15:50 Labs: Laboratory Results - last 24 hr 12/23/24 12/23/24 12/23/24 15:09 15:50 16:14 WBC 10.2 RBC 5.09 Hgb 13.5 Hct 40.7 L MCV 79.8 L MCH 26.6 MCHC 33.3 RDW 14.3 Plt Count 337 Neut % (Auto) 82.9 H Lymph % (Auto) 10.9 L [place] % (Auto) 5.7 Eos % (Auto) 0.0 L Baso % (Auto) 0.5 Neut # (Auto) 8500 H Lymph # (Auto) 1100 [place] # (Auto) 600 Eos # (Auto) 0 Baso # (Auto) 0 VBG pH 7.56 H VBG pCO2 25.9 L VBG pO2 34 L VBG HCO3 23 L VBG Total CO2 22 L VBG O2 Saturation 76 H VBG Base Excess 2.1 FiO2 % 21.0 % Sodium 138 Potassium 3.5 Chloride 96 L Carbon Dioxide 19 L BUN 18 Creatinine 1.47 H Estimated GFR > 60 BUN/Creatinine Ratio 12.2 Glucose 143 H POC Whole Bld Glucose 105 H Calcium 9.5 Total Bilirubin 1.1 AST 32 ALT 21 Alkaline Phosphatase 116 Total Protein 9.1 H Albumin 5.2 H Globulin 3.9 Albumin/Globulin Ratio 1.3 Lipase 31 Urine Color Yellow Urine Appearance Clear Urine pH 6.5 Ur Specific [place] 1.025 Urine Protein 2+ H Urine Glucose (UA) Negative Urine Ketones 3+ H Urine Occult Blood Trace-intact Urine Nitrate Negative Urine Bilirubin 1+ H Ur Bilirubin Confirm Negative Urine Urobilinogen 0.2 Ur Leukocyte Esterase Negative Urine RBC 1-5/hpf Urine WBC None seen Ur Squamous Epith Cells None seen Urine Bacteria None seen Hyaline Casts 1-5/lpf Vol Urine Centrifuged 10ml (spun) 12/23/24 22:15 WBC RBC Hgb Hct MCV MCH MCHC RDW Plt Count Neut % (Auto) Lymph % (Auto) [place] % (Auto) Eos % (Auto) Baso % (Auto) Neut # (Auto) Lymph # (Auto) [place] # (Auto) Eos # (Auto) Baso # (Auto) VBG pH VBG pCO2 VBG pO2 VBG HCO3 VBG Total CO2 VBG O2 Saturation VBG Base Excess FiO2 % Sodium Potassium Chloride Carbon Dioxide BUN Creatinine Estimated GFR BUN/Creatinine Ratio Glucose POC Whole Bld Glucose 130 H Calcium Total Bilirubin AST ALT Alkaline Phosphatase Total Protein Albumin Globulin Albumin/Globulin Ratio Lipase Urine Color Urine Appearance Urine pH Ur Specific [place] Urine Protein Urine Glucose (UA) Urine Ketones Urine Occult Blood Urine Nitrate Urine Bilirubin Ur Bilirubin Confirm Urine Urobilinogen Ur Leukocyte Esterase Urine RBC Urine WBC Ur Squamous Epith Cells Urine Bacteria Hyaline Casts Vol Urine Centrifuged Assessment & Plan Assessment & Plan narrative: Intractable nausea vomiting. The patient to medical observation. Could be related to gastroparesis as patient states that he has not been using marijuana over the last few months. Clear liquid diet. IV fluid. IV antiemetics. Insulin-dependent diabetes with insulin pump. Will monitor glucose and give additional subcu insulin as needed. SHAN. Creatinine 1.47. Likely from dehydration. IV fluid and monitor renal function. Hypothyroidism. Resume home Synthroid. Depression. Resume home medication. DVT prophylaxis SCDs and ambulation. CODE STATUS full code. Disposition likely home in 1 to 2 days - As the provider of this telehealth evaluation, requested by the patient's evaluating physician, I attest that I introduced myself to the patient, provided my credentials and determined that telemedicine via a real-time, 2 way interactive audio and video platform is an appropriate and effective means of providing this service. - I reviewed the patient's chart and had a discussion with the member of the patient's treatment team. - The patient and I mutually agreed with continuation of this evaluation via telemedicine. The patient consented for the telemedicine evaluation. - This virtual encounter was taken place from [place] by Dr. Edgard Balderas. The patient was evaluated at [facility]. The encounter was approximately 35 minutes. The nurse was present during the entire time of the encounter and was able to assists with exam/stethoscope. Time-Based Coding :: [TOTAL MINUTES] spent with patient and on the chart (including review of chart, obtaining history, exam, reviewing outside data, placing orders, documenting exam and treatment plan, and counseling patient) on [DATE].
[2024-12-24] MEDS: SUCRALFATE 1 GM/10 ML ORAL SUSP PO ×3 (10:11→20:51)
[2024-12-24] MEDS: METOPROLOL ER 50 MG TABLET PO (10:12)
[2024-12-24 10:45] VITALS: BP 140/68
--- NOTE | 2024-12-24 10:45 | CM.DANOTE ---
Patient is a 34 yo male READMIT OBS Status on 12/23/24 for Intractable n/v. Per MD, past medical history of insulin dependent diabetes with insulin pump, known hx of gastroparesis, recurrent DKA, diabetic neuropathy, hypertension, hypothyroidism anxiety, depression. Pt admitted for intractable n/v and likely gastroparesis. PCP: James Jung Payer: Mickey/BIRDIE Reviewed chart, patient appears to be following up consistently with outpatient providers including PCP Dr Jung, Outpt Behavioral health/Psych with Dr. Mccracken at [facility], and hx of Dr Hannah at [facility] and hx of Orthopedic team (osteo, foot) [facility] and recently has been seeing Dr. Hsieh at [facility]. Pt has upcoming appointments this week with PCP and Director Medical Maye at [facility]. Met w/patient bedside and he confirms he continues to have nausea and feel poorly. Pt confirms that his information is the same since his last admit a week ago and discharged home 12/15/24 to home. Patient continues to live with his grandmother in [place], mom lives in [place]. Patient has [facility] caregivers M/W/F from [id number] and his [facility] Flight Manager is Christy Bartlett [phone]. SW faxed H&P to [facility] to review. Pt confirms that his last appointment with [facility] Psych Dr. Mccracken was in August a few months ago and feels he is stable on his current medication. Preference is to discharge home when stable and pt currently does not anticipate any further needs at this time. Plan: SW to follow for plan of discharge home with close outpt f/u with above providers and any further identified discharge planning needs. GORDON Madison Discharge Planning/Care Management CM Discharge Assessment Start: 12/23/24 21:43 Freq: Status: Active Protocol: Document 12/24/24 10:43 BF (Rec: 12/24/24 10:45 BF [id number]) Discharge Planning Assessment Assigned Discharge GORDON Watson Cloth Stock Sorter Provider Dr. James Jung Insurance Mickey DPOA/Assigned none, informally grandmother Meghan Designee Name Contact Information [phone] Advance Directives? No Advance Directives Yes on File History Provided By Patient,Medical Record Has Patient been Yes admitted in last 30 days? Comment Just discharged home on 12/15/24 after insulin pump malfunction Prior Living House Arrangements Household Members family Comment lives with grandma Type of Relies on Others transporation used prior to admit Independent with ADL No: has [facility] and supportive grandmother 's Is patient alert and Yes oriented? Needs Assistance Meal Prep,Managing Medications With Caregiver for No Another Comment [facility] CG at baseline Comment Pt has an insulin pump and CGM. Barriers to No Discharge Discharge Plan Home Transportation Family vs BIRDIE transport Arrangement Referrals Initiated None needed Whiteboard Updated Yes in Patient Room with name and ext. # of Heavy Cleaner Review Status In Process Please Provide Date 12/24/24 Initial DC Assessment Was Performed Next Review Type Continued Stay Review
[2024-12-24] MEDS: INFLUENZA VACCINE 0.5 ML SYRINGE IM (12:37)
[2024-12-24] MEDS: METOCLOPRAMIDE 10 MG/2 ML INJ 5 MG IV ×2 (14:26→20:54)
--- NOTE | 2024-12-24 15:05 | PC.NURSE ---
Pt resting at intervals T/O day. Ind. to [facility]G 177 Pt received influenza vaccine this afternoon. IVF continue as per orders. Med w/ dilaudid 0.5 IVP at 1425 for pain Call light w/in reach, pt calls appropriately for needs Continue w/plan of care.
--- NOTE | 2024-12-24 17:44 | PM.PN.1 ---
Subjective Subjective Interval history: 34-year-old male with type 1 diabetes on an insulin pump, complicated by gastroparesis, recurrent DKA, diabetic peripheral neuropathy, hypertension, hypothyroidism, anxiety, previous marijuana use abstinent in the last 3 months, anxiety/depression who was admitted with intractable nausea and vomiting. He states this has been going on since he ?woke up here after a low blood sugar 3 weeks ago?. In reviewing his chart it appears his episode of significant hypoglycemia was on December 13. He ended up admitted for observation and it was felt to be secondary to an insulin overdose in the setting of an insulin pump malfunction. He discharged home on December 15. He states since that time he has had difficulty holding down food and liquids. He states he continues to have nausea but has not had any emesis in the last several hours. He did receive hydrocodone a bit earlier but states it has not been particularly effective at controlling his pain. He is asking for some IV pain medication. He last received hydromorphone at about 6 this morning he reports he is tolerating water reasonably well through the day. Exam Vital Signs (past 8 hours): - 12/24/24 10:45 Blood Pressure 140/68 Oxygen Delivery Method Room Air Oxygen Flow Rate 0 Narrative Exam Narrative: GEN: Adult male who appears older than stated age, Alert and oriented x 3, appears chronically ill and uncomfortable HEENT:NC, Face symmetric CHEST: Respiratory excursions symmetric, CTAB CV: RRR, no M/R/G ABD: Soft, diffusely tender/ND, BT hypoactive t in all 4 quadrants, no organomegaly or masses EXTR: warm, well perfused, no C/C/E SKIN: warm and dry, no rash NEURO: Alert and oriented x 3, nonfocal Objective Labs 12/23/24 15:50 12/23/24 15:50 Labs: Laboratory Results - last 24 hr 12/23/24 12/23/24 12/23/24 15:09 16:14 22:15 VBG pH 7.56 H VBG pCO2 25.9 L VBG pO2 34 L VBG HCO3 23 L VBG Total CO2 22 L VBG O2 Saturation 76 H VBG Base Excess 2.1 FiO2 % 21.0 % POC Whole Bld Glucose 105 H 130 H 12/24/24 12/24/24 11:25 16:51 VBG pH VBG pCO2 VBG pO2 VBG HCO3 VBG Total CO2 VBG O2 Saturation VBG Base Excess FiO2 % POC Whole Bld Glucose 177 H 160 H PFSH Medical History (Updated 12/23/24 @ 21:45 by Juan Odell MD) Anemia in other chronic diseases classified elsewhere Erectile dysfunction Insomnia Anxiety Migraines Osteoporosis Cataracts, bilateral Partial blindness Gastric ulcer MDD (major depressive disorder), recurrent episode, moderate Chronic lower back pain Hypothyroidism Marijuana use History of MRSA infection History of pneumonia Blurry vision, bilateral Diabetic neuropathy Bipolar disorder with depression Nausea and vomiting Diabetes type 1, uncontrolled Diabetic gastroparesis Surgical History No pertinent past surgical history Family History Mother No known health problems Father No known health problems Social History household members: family alcohol intake: never Assessment & Plan Assessment & Plan narrative: 1. Intractable nausea and vomiting in the setting of known diabetic gastroparesis He reports he typically has flares anywhere from once a month to once every few months. His last episode was 2 months ago. For now, will continue IV fluids, add scheduled Reglan, and continue bowel rest. He has not used marijuana in the last 3 months. He notes he has been having symptoms over the last week and a half or so since he was last admitted here. 2. Type 1 diabetes He reports his basal rate on his insulin pump is 0.91 units/hour. His blood sugar at the time of my assessment was 216. He states this is fairly typical for him. 3. SHAN On admission creatinine was 1.47. Will repeat labs this afternoon. 4. Hypothyroidism Last TSH in August of this year was 3.35. Continue thyroid replacement. 5. Depression/anxiety He is on fluoxetine at baseline. As he was placed on scheduled Reglan this has been held for now. Given the long half-life of fluoxetine, he should not have any significant symptoms related to it being held Code status Full Prophylaxis SCDs in place. Disposition Home once his symptoms have improved and he can tolerate oral intake Time-Based Coding :: [TOTAL MINUTES] spent with patient and on the chart (including review of chart, obtaining history, exam, reviewing outside data, placing orders, documenting exam and treatment plan, and counseling patient) on [DATE].
[2024-12-24] MEDS: ZOLPIDEM 5 MG TABLET PO (20:51)
[2024-12-24 21:35] VITALS: BP 142/92; PULSE 78; RESP 16; TEMP 36.1; O2SAT 98
[2024-12-24 23:00] LABS: Blood Urea Nitrogen 10 mg/dL (9-20); Calcium 7.4 mg/dL (8.4-10.2); Carbon Dioxide 23 mmol/L (22-32); Chloride 98 mmol/L (98-107); Estimated Glomerular Filt Rate > 60 mL/min (>60); Glucose 141 mg/dL (70-99); Potassium 4.0 mmol/L (3.4-5.1); Sodium 129 mmol/L (137-145)
[2024-12-24 23:01] LABS: HEMOLYSIS 99 (0-50)
[2024-12-25] MEDS: INSULIN PUMP 1 REQUEST MISC (00:30)
[2024-12-25] MEDS: METOCLOPRAMIDE 10 MG/2 ML INJ 5 MG IV ×3 (02:14→13:39)
[2024-12-25] MEDS: SODIUM CHLORIDE 0.9% 1,000 ML 100 ML IV ×3 (02:19→21:25)
[2024-12-25] MEDS: LEVOTHYROXINE 50 MCG TABLET PO (06:31)
[2024-12-25 08:46] VITALS: BP 148/100; PULSE 88; RESP 17; TEMP 36.2; O2SAT 98
[2024-12-25] MEDS: SUCRALFATE 1 GM/10 ML ORAL SUSP PO ×4 (09:09→20:47)
[2024-12-25 09:10] VITALS: BP 148/100
[2024-12-25] MEDS: PANTOPRAZOLE DR 40 MG TABLET PO (09:10)
[2024-12-25] MEDS: METOPROLOL ER 50 MG TABLET PO (09:10)
--- NOTE | 2024-12-25 09:45 | PC.NURSE ---
Addendum entered by Erica Rosales RN 12/25/24 09:47: Pt made CC diet for lunch 12/24; however, pt had active (but incorrect) NPO order that overrode the diet change. Pt did not receive meals for 12/24 lunch, 12/24 dinner, or 12/25 breakfast. Notified MD Glasgow who ordered OK to removed NPO. Notified dietary. Original Note: No signed insulin pump agreement in physical or computer chart; pt signed, placed in physical chart.
--- NOTE | 2024-12-25 11:25 | P.PN_ITS ---
Subjective Subjective Date Patient Seen: 12/25/24 Interval history: Chief complaint: Intractable nausea and vomiting with type 1 diabetes brittle gastroparesis History of present illness: 11/23: 34-year-old male with past medical history of insulin dependent diabetes with insulin pump, known history of gastroparesis, recurrent DKA, diabetic neuropathy, hypertension, hypothyroidism, anxiety, depression prior marijuana use presents with nausea, vomiting. Per the patient's report, over the last 3 days the patient has had increasing nausea and vomiting. The patient denies any diarrhea. The patient states that was difficult to hold much fluid down due to the severe nausea and vomiting. Patient states that his last use of marijuana was a few months ago. Otherwise today patient denies any fever, chills, chest pain, dysuria, coughing, shortness of breath or syncope. In the emergency room, the patient was hemodynamically stable. Labs shows a creatinine 1.47 but otherwise relatively benign. UA was negative for any UTI. The patient was given IV fluid and IV antiemetics. Due to ongoing nausea and vomiting ER physician requested admission to observation. Hospital course: 11/23: He states since that time he has had difficulty holding down food and liquids. He states he continues to have nausea but has not had any emesis in the last several hours. He did receive hydrocodone a bit earlier but states it has not been particularly effective at controlling his pain. He is asking for some IV pain medication. He last received hydromorphone at about 6 this morning he reports he is tolerating water reasonably well through the day. 11/24: We will initiate a trial of the advancing his diet today he is asked for GI cocktail as this seems to be the best he is still having a lot of pain and discomfort with swallowing any liquids at this time. Still having episodes of emesis. Patient Inquired about surgical approaches to gastroparesis. This would need referral to a tertiary center by his primary care, but I think it is worth exploring. He is still in intravenous fluids and he is receiving insulin by his insulin pump Review of systems: No palpitations or shortness a breath No loss of consciousness confusion No paresis Physical exam: Chronically ill-appearing young male HEENT unremarkable except patient is edentulous No labored respirations Abdomen nondistended Extremities no edema No neurologic findings Assessment and plan: 1. Intractable nausea and vomiting in the setting of known diabetic gastroparesis * He reports he typically has flares anywhere from once a month to once every few months. His last episode was 2 months ago. * For now, will continue IV fluids, add scheduled Reglan, and continue bowel rest. * He has not used marijuana in the last 3 months. * He notes he has been having symptoms over the last week and a half or so since he was last admitted here. 2. Type 1 diabetes * He reports his basal rate on his insulin pump is 0.91 units/hour. 3. SHAN * On admission creatinine was 1.47. * Repeat today 4. Hypothyroidism * Last TSH in August of this year was 3.35. Continue thyroid replacement. 5. Depression/anxiety * He is on fluoxetine at baseline. As he was placed on scheduled Reglan this has been held for now. Given the long half-life of fluoxetine, he should not have any significant symptoms related to it being held Code status * Full Prophylaxis * SCDs in place. Disposition * Inpatient * Home once his symptoms have improved and he can tolerate oral intake Time-Based Coding 35 minutes spent with patient and on the chart (including review of chart, obtaining history, exam, reviewing outside data, placing orders, documenting exam and treatment plan, and counseling patient) Exam Vital Signs (past 8 hours): - 12/25/24 08:46 12/25/24 09:10 Temperature 97.1 F L Pulse Rate 88 Respiratory Rate 17 Blood Pressure 148/100 H 148/100 H Pulse Oximetry 98 Oxygen Flow Rate 0 Oxygen Delivery Method Room Air Oxygen Flow Rate 0 Objective Labs 12/23/24 15:50 12/24/24 22:09 Labs: Laboratory Results - last 24 hr 12/24/24 12/24/24 12/24/24 11:25 16:51 21:02 Sodium Potassium Chloride Carbon Dioxide BUN Creatinine Estimated GFR BUN/Creatinine Ratio Glucose POC Whole Bld Glucose 177 H 160 H 47 L D Calcium 12/24/24 12/24/24 12/24/24 21:03 21:31 22:09 Sodium 129 L Potassium 4.0 Chloride 98 Carbon Dioxide 23 BUN 10 Creatinine 0.86 Estimated GFR > 60 BUN/Creatinine Ratio 11.6 Glucose 141 H POC Whole Bld Glucose 46 L 100 H Calcium 7.4 L 12/25/24 08:48 Sodium Potassium Chloride Carbon Dioxide BUN Creatinine Estimated GFR BUN/Creatinine Ratio Glucose POC Whole Bld Glucose 84 Calcium [facility] Medical History (Updated 12/23/24 @ 21:45 by Juan Odell MD) Anemia in other chronic diseases classified elsewhere Erectile dysfunction Insomnia Anxiety Migraines Osteoporosis Cataracts, bilateral Partial blindness Gastric ulcer MDD (major depressive disorder), recurrent episode, moderate Chronic lower back pain Hypothyroidism Marijuana use History of MRSA infection History of pneumonia Blurry vision, bilateral Diabetic neuropathy Bipolar disorder with depression Nausea and vomiting Diabetes type 1, uncontrolled Diabetic gastroparesis Surgical History No pertinent past surgical history Family History Mother No known health problems Father No known health problems Social History household members: family alcohol intake: never Assessment & Plan Time-Based Coding :: [TOTAL MINUTES] spent with patient and on the chart (including review of chart, obtaining history, exam, reviewing outside data, placing orders, documenting exam and treatment plan, and counseling patient) on [DATE].
[2024-12-25 12:23] LABS: Blood Urea Nitrogen 7 mg/dL (9-20); Calcium 7.7 mg/dL (8.4-10.2); Carbon Dioxide 26 mmol/L (22-32); Chloride 100 mmol/L (98-107); Estimated Glomerular Filt Rate > 60 mL/min (>60); Glucose 82 mg/dL (70-99); HEMOLYSIS < 15 (0-50); Potassium 3.0 mmol/L (3.4-5.1); Sodium 134 mmol/L (137-145)
[2024-12-25 12:57] VITALS: BP 140/104
[2024-12-25] MEDS: MAG HYDROX/ALUMINUM/SIMETH SUS 30 ML, LIDOCAINE VISCOUS 2% 15 ML PO (13:31)
--- NOTE | 2024-12-25 15:55 | DIET.CONS ---
Dietary Consultation Note Admission Date: 12/25/2024 13:06 Assessment: 34 y M admitted for intractable N/V with gastroparesis. Dietitian consulted for severe loss of appetite. Met with pt at bedside. Reports besides last night has had no episodes of hypoglycemia since d/c. Insulin pump and G6 are working. Getting 0.91 units/hour insulin. Pt reports pump is in automatic mode. Not currently doing bolus for carbs r/t N/V and low appetite. Just started eating today at lunch. Reports some nausea still afterwards but no vomiting. 2 weeks of inadequate oral intakes. Ht: 177.8 cm Wt: 72.575 kg BMI: 22.9 UBW: 72-77 kg, -3% weight loss in 2 weeks, unsure weight accuracy/repeating weights in chart Last BM: 12/22/24 (12/23/24 21:43) MNA: 11 Jimbo Score: 22 Diet: 12/24/24 Lunch Carbohydrate Consistent Diet Diet Modifications: Carbohydrate level: Medium (3 CHO) Reflex DM orders: No Food Texture: Level 7 - Regular Liquid Consistency: Level 0 - Thin Nutrition Percent Meal Consumed 40 12/25/24 13:29 Labs: RBC 5.09 X10^6/uL (4.5-5.9) 12/23/24 15:50 Hgb 13.5 g/dL (13.5-17.5) 12/23/24 15:50 Hct 40.7 % (41-53) L 12/23/24 15:50 Creatinine 0.89 mg/dL (0.66-1.25) 12/25/24 11:59 Nutrition Diagnosis: Inadequate oral intakes r/t changes in GI motility aeb gastroparesis with N/V Interventions: -Discussed lower fiber lower fat while feeling nauseated, if it becomes exacerbated with solid food, can trial liquid protein supplements (ensure+) Monitoring/Evaluations: BG, po intakes Electronically Signed by: Julia Márquez 12/25/24 15:55 Clinical Dietitian [address] [id number]
--- NOTE | 2024-12-25 16:54 | PC.NURSE ---
Pt stated he felt like BG was low. Insulin pump said 79; POC BG fingertip test said 67. Provided 2 servings of OJ; patient drank, set timer for 15 minutes.
[2024-12-25] MEDS: POTASSIUM CHLORIDE 20 MEQ TAB 40 MEQ PO ×2 (16:56→20:47)
[2024-12-25 18:54] LABS: Add Manual Diff / Slide Review NO; Hematocrit 34.6 % (41-53); Hemoglobin 11.6 g/dL (13.5-17.5); Lymphocytes Absolute Auto 1300 /uL (1100-4500); Mean Corpuscular HGB Conc 33.6 % (30-36); Mean Corpuscular Hemoglobin 26.7 PG (26-34); Mean Corpuscular Volume 79.5 fL (80-100); Platelet Count 234 X10^3/uL (150-400)
[2024-12-25 19:12] LABS: Blood Urea Nitrogen 6 mg/dL (9-20); Calcium 7.6 mg/dL (8.4-10.2); Carbon Dioxide 25 mmol/L (22-32); Chloride 96 mmol/L (98-107); Estimated Glomerular Filt Rate > 60 mL/min (>60); Glucose 152 mg/dL (70-99); HEMOLYSIS < 15 (0-50); Magnesium 1.8 mg/dL (1.6-2.3); Potassium 3.7 mmol/L (3.4-5.1); Sodium 129 mmol/L (137-145)
[2024-12-25] MEDS: METOCLOPRAMIDE 10 MG/2 ML INJ IV (20:46)
[2024-12-25] MEDS: ZOLPIDEM 5 MG TABLET PO (20:46)
[2024-12-25 21:59] VITALS: BP 152/99; PULSE 71; RESP 16; TEMP 35.7; O2SAT 99
[2024-12-26] MEDS: INSULIN PUMP 1 REQUEST MISC (00:05)
[2024-12-26] MEDS: METOCLOPRAMIDE 10 MG/2 ML INJ IV ×4 (02:47→20:23)
[2024-12-26] MEDS: LEVOTHYROXINE 50 MCG TABLET PO (06:31)
[2024-12-26] MEDS: SODIUM CHLORIDE 0.9% 1,000 ML 100 ML IV (06:46)
[2024-12-26 08:47] VITALS: BP 164/106
[2024-12-26] MEDS: SUCRALFATE 1 GM/10 ML ORAL SUSP PO ×4 (08:47→20:22)
[2024-12-26] MEDS: METOPROLOL ER 50 MG TABLET PO (08:47)
[2024-12-26] MEDS: PANTOPRAZOLE DR 40 MG TABLET PO (08:48)
[2024-12-26 10:58] VITALS: BP 138/96; PULSE 75; RESP 17; TEMP 36.2; O2SAT 97
--- NOTE | 2024-12-26 11:07 | PM.PN.1 ---
Subjective Subjective Date Patient Seen: 12/26/24 Interval history: Chief complaint: Intractable nausea and vomiting with type 1 diabetes brittle gastroparesis History of present illness: 11/23: 34-year-old male with past medical history of insulin dependent diabetes with insulin pump, known history of gastroparesis, recurrent DKA, diabetic neuropathy, hypertension, hypothyroidism, anxiety, depression prior marijuana use presents with nausea, vomiting. Per the patient's report, over the last 3 days the patient has had increasing nausea and vomiting. The patient denies any diarrhea. The patient states that was difficult to hold much fluid down due to the severe nausea and vomiting. Patient states that his last use of marijuana was a few months ago. Otherwise today patient denies any fever, chills, chest pain, dysuria, coughing, shortness of breath or syncope. In the emergency room, the patient was hemodynamically stable. Labs shows a creatinine 1.47 but otherwise relatively benign. UA was negative for any UTI. The patient was given IV fluid and IV antiemetics. Due to ongoing nausea and vomiting ER physician requested admission to observation. Hospital course: 12/24: He states since that time he has had difficulty holding down food and liquids. He states he continues to have nausea but has not had any emesis in the last several hours. He did receive hydrocodone a bit earlier but states it has not been particularly effective at controlling his pain. He is asking for some IV pain medication. He last received hydromorphone at about 6 this morning he reports he is tolerating water reasonably well through the day. 12/25: We will initiate a trial of the advancing his diet today he is asked for GI cocktail as this seems to be the best he is still having a lot of pain and discomfort with swallowing any liquids at this time. Still having episodes of emesis. Patient Inquired about surgical approaches to gastroparesis. This would need referral to a tertiary center by his primary care, but I think it is worth exploring. He is still in intravenous fluids and he is receiving insulin by his insulin pump 12/26: Patient is still feeling very nauseated this morning unable to keep things down had some low blood sugars insulin pump is being adjusted and monitored per pharmacy and dietary. Patient asked that hit analgesia be escalated which we did and we will add a very slow infusion of D5 normal saline at 50 cc an hour continue to try to advance diet Review of systems: No palpitations or shortness a breath No loss of consciousness confusion No paresis Physical exam: Chronically ill-appearing young male HEENT unremarkable except patient is edentulous No labored respirations Abdomen nondistended Extremities no edema No neurologic findings Assessment and plan: 1. Intractable nausea and vomiting in the setting of known diabetic gastroparesis Unable to maintain adequate carbohydrate orally we will start D5 normal saline at 50 cc an hour He reports he typically has flares anywhere from once a month to once every few months. His last episode was 2 months ago. scheduled Reglan, and continue bowel rest. He has not used marijuana in the last 3 months. He notes he has been having symptoms over the last week and a half or so since he was last admitted here. 2. Type 1 diabetes He reports his basal rate on his insulin pump is 0.91 units/hour. 3. SHAN On admission creatinine was 1.47. Repeat today 4. Hypothyroidism Last TSH in August of this year was 3.35. Continue thyroid replacement. 5. Depression/anxiety He is on fluoxetine at baseline. As he was placed on scheduled Reglan this has been held for now. Given the long half-life of fluoxetine, he should not have any significant symptoms related to it being held Code status Full Prophylaxis SCDs in place. Disposition Inpatient Home once his symptoms have improved and he can tolerate oral intake Time-Based Coding 35 minutes spent with patient and on the chart (including review of chart, obtaining history, exam, reviewing outside data, placing orders, documenting exam and treatment plan, and counseling patient) Exam Vital Signs (past 8 hours): - 12/26/24 08:47 12/26/24 10:58 Temperature 97.1 F L Pulse Rate 75 Respiratory Rate 17 Blood Pressure 164/106 H 138/96 H Pulse Oximetry 97 Oxygen Flow Rate 0 Oxygen Delivery Method Room Air Oxygen Flow Rate 0 Objective Labs 12/25/24 18:35 12/25/24 18:35 Labs: Laboratory Results - last 24 hr 12/25/24 12/25/24 12/25/24 11:56 11:59 17:00 WBC RBC Hgb Hct MCV MCH MCHC RDW Plt Count Neut % (Auto) Lymph % (Auto) [place] % (Auto) Eos % (Auto) Baso % (Auto) Neut # (Auto) Lymph # (Auto) [place] # (Auto) Eos # (Auto) Baso # (Auto) Sodium 134 L Potassium 3.0 L Chloride 100 Carbon Dioxide 26 BUN 7 L Creatinine 0.89 Estimated GFR > 60 BUN/Creatinine Ratio 7.9 Glucose 82 POC Whole Bld Glucose 76 67 L Calcium 7.7 L Magnesium 12/25/24 12/25/24 12/25/24 17:28 18:10 18:35 WBC 8.3 RBC 4.35 L Hgb 11.6 L Hct 34.6 L MCV 79.5 L MCH 26.7 MCHC 33.6 RDW 13.9 Plt Count 234 Neut % (Auto) 72.9 Lymph % (Auto) 16.0 L [place] % (Auto) 9.6 Eos % (Auto) 0.9 L Baso % (Auto) 0.6 Neut # (Auto) 6100 Lymph # (Auto) 1300 [place] # (Auto) 800 Eos # (Auto) 100 Baso # (Auto) 0 Sodium 129 L Potassium 3.7 Chloride 96 L Carbon Dioxide 25 BUN 6 L Creatinine 0.92 Estimated GFR > 60 BUN/Creatinine Ratio 6.5 Glucose 152 H POC Whole Bld Glucose 70 165 H Calcium 7.6 L Magnesium 1.8 12/25/24 12/26/24 12/26/24 21:52 07:23 11:03 WBC RBC Hgb Hct MCV MCH MCHC RDW Plt Count Neut % (Auto) Lymph % (Auto) [place] % (Auto) Eos % (Auto) Baso % (Auto) Neut # (Auto) Lymph # (Auto) [place] # (Auto) Eos # (Auto) Baso # (Auto) Sodium Potassium Chloride Carbon Dioxide BUN Creatinine Estimated GFR BUN/Creatinine Ratio Glucose POC Whole Bld Glucose 129 H 68 L 100 H Calcium Magnesium [facility] Medical History (Updated 12/23/24 @ 21:45 by Juan Odell MD) Anemia in other chronic diseases classified elsewhere Erectile dysfunction Insomnia Anxiety Migraines Osteoporosis Cataracts, bilateral Partial blindness Gastric ulcer MDD (major depressive disorder), recurrent episode, moderate Chronic lower back pain Hypothyroidism Marijuana use History of MRSA infection History of pneumonia Blurry vision, bilateral Diabetic neuropathy Bipolar disorder with depression Nausea and vomiting Diabetes type 1, uncontrolled Diabetic gastroparesis Surgical History No pertinent past surgical history Family History Mother No known health problems Father No known health problems Social History household members: family alcohol intake: never Assessment & Plan Time-Based Coding :: [TOTAL MINUTES] spent with patient and on the chart (including review of chart, obtaining history, exam, reviewing outside data, placing orders, documenting exam and treatment plan, and counseling patient) on [DATE].
[2024-12-26] MEDS: DEXTROSE 5%-0.9% NS 1,000 ML 50 ML IV (11:18)
--- NOTE | 2024-12-26 11:34 | CM.DPNOTE ---
DCP Note INTERNAL SPECIALIST reviewed EMR per provider anticipate one more day. hopeful for pts PCP to work on referral for gastric pacemaker. no new needs at this time P: dc home tomorrow with [facility] CGs and OP f/u. CM team will continue to follow in case additional DCP need should arise GORDON Sumner
--- NOTE | 2024-12-26 15:39 | DIET.PN1 ---
Dietary Progress Note Assessment: f/u Pt having a few more incidents of lows (see documented POC). Changed daytime basal rate on pump to .81 units/hr over .91 units and coordinated care with diabetes educ who also recc increasing insulin sensitivity factor from midnight to 10 am to 55 over 45. Ht: 177.8 cm Wt: 72.575 kg BMI: 22.9 Last BM: 12/22/24 (12/23/24 21:43) MNA: 11 Jimbo Score: 20 Diet: 12/24/24 Lunch Carbohydrate Consistent Diet Diet Modifications: Carbohydrate level: Medium (3 CHO) Reflex DM orders: No Food Texture: Level 7 - Regular Liquid Consistency: Level 0 - Thin Nutrition Percent Meal Consumed 50% 12/26/24 13:18 Percent Meal Consumed 50% 12/25/24 18:00 Percent Meal Consumed 40 12/25/24 13:29 Labs: RBC 4.35 X10^6/uL (4.5-5.9) L 12/25/24 18:35 Hgb 11.6 g/dL (13.5-17.5) L 12/25/24 18:35 Hct 34.6 % (41-53) L 12/25/24 18:35 Creatinine 0.92 mg/dL (0.66-1.25) 12/25/24 18:35 Electronically Signed by: Julia Márquez 12/26/24 15:39 Clinical Dietitian [address] [id number]
--- NOTE | 2024-12-26 18:12 | DIET.INSP ---
Addendum entered by Maye Tamez 12/26/24 18:18: Clarification: BG was running low until starting D5, with a 68mg/dl earlier today. Original Note: Nutrition/Diabetes Insulin Pump Consult Assessment: Admitted for gastroparesis s/s. BG running low and currently on D5 saline infusion. Reduced evening ISF to 55 (from 45) to reduce insulin correction by pump from 12a-10a. States most of his lows are when he sleeps or fasting. Asked patient to download elia for remote upload of pump info. Per previous upload after discussion with [employer] field sales representative, rec'd reduced evening basal rate and ISF. Rec close monitoring of BG. Type of pump:TSlim Interventions: Reviewed ISF function and changes Encouraged [employer] elia set up Monitoring and Evaluation: tomorrow for pump info review by remote upload or download
[2024-12-26] MEDS: ZOLPIDEM 5 MG TABLET PO (23:59)
[2024-12-27] MEDS: INSULIN PUMP 1 REQUEST MISC (00:03)
[2024-12-27] MEDS: diphenhydrAMINE 25 MG TABLET PO (03:26)
[2024-12-27 04:47] VITALS: BP 111/78; PULSE 16; RESP 16; TEMP 35.8; O2SAT 96
[2024-12-27] MEDS: LEVOTHYROXINE 50 MCG TABLET PO (05:03)
--- NOTE | 2024-12-27 05:22 | PC.NURSE ---
Pt refused lab draw this morning.
--- NOTE | 2024-12-27 05:54 | PC.NURSE ---
IV in right arm infiltrated. US guided IV attempted and unable to place IV. Dr. Balderas aware.
[2024-12-27 08:00] VITALS: BP 124/89; PULSE 68; RESP 16; TEMP 36.2; O2SAT 99
--- NOTE | 2024-12-27 08:33 | DIET.INSP ---
Nutrition/Diabetes Insulin Pump Consult Assessment: Follow-up today for review of new settings in pump 12a-10a with pump download. Prior to admission was having lows between 12a-10a. D5 infusion paused 20:30 12/26. Current insulin settings for 12a-10a seem appropriate without any lows or elevations. Pt endorsed eating a sandwich in the mid morning time. No significant elevations. May benefit from continued reduced insulin settings for morning time and/or setting sleep setting, which we have reviewed. Has not set up remote pump upload elia. Will work on this in OP. Type of pump:TSlim Interventions: Reviewed recent setting changes and BG Downloaded pump reports Monitoring and Evaluation: tomorrow if not discharged and OP thereafter. Maye Tamez, MPH, CDCES, RD Customer Service Representative Teller
[2024-12-27 08:55] VITALS: BP 124/89; PULSE 68
[2024-12-27] MEDS: METOCLOPRAMIDE HCL 5 MG TABLET 10 MG PO (08:55)
[2024-12-27] MEDS: METOPROLOL ER 50 MG TABLET PO (08:55)
[2024-12-27] MEDS: PANTOPRAZOLE DR 40 MG TABLET PO (08:56)
[2024-12-27] MEDS: SUCRALFATE 1 GM/10 ML ORAL SUSP PO ×2 (08:57→12:29)
--- NOTE | 2024-12-27 10:53 | CM.DPNOTE ---
DCP Note CONSTRUCTION MGR reviewed EMR per RN, could likely DC. lost IV access overnight. N/V improved. per provider, if not vomiting, will dc today. P: anticipate likely dc today. will f/u if pt needs transport. 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 will continue to follow if any additional needs arise GORDON Sumner
--- NOTE | 2024-12-27 12:21 | P.PN_ITS ---
Subjective Subjective Date Patient Seen: 12/27/24 Interval history: Chief complaint: Intractable nausea and vomiting with type 1 diabetes brittle gastroparesis History of present illness: 11/23: 34-year-old male with past medical history of insulin dependent diabetes with insulin pump, known history of gastroparesis, recurrent DKA, diabetic neuropathy, hypertension, hypothyroidism, anxiety, depression prior marijuana use presents with nausea, vomiting. Per the patient's report, over the last 3 days the patient has had increasing nausea and vomiting. The patient denies any diarrhea. The patient states that was difficult to hold much fluid down due to the severe nausea and vomiting. Patient states that his last use of marijuana was a few months ago. Otherwise today patient denies any fever, chills, chest pain, dysuria, coughing, shortness of breath or syncope. In the emergency room, the patient was hemodynamically stable. Labs shows a creatinine 1.47 but otherwise relatively benign. UA was negative for any UTI. The patient was given IV fluid and IV antiemetics. Due to ongoing nausea and vomiting ER physician requested admission to observation. Hospital course: 12/24: He states since that time he has had difficulty holding down food and liquids. He states he continues to have nausea but has not had any emesis in the last several hours. He did receive hydrocodone a bit earlier but states it has not been particularly effective at controlling his pain. He is asking for some IV pain medication. He last received hydromorphone at about 6 this morning he reports he is tolerating water reasonably well through the day. 12/25: We will initiate a trial of the advancing his diet today he is asked for GI cocktail as this seems to be the best he is still having a lot of pain and discomfort with swallowing any liquids at this time. Still having episodes of emesis. Patient Inquired about surgical approaches to gastroparesis. This would need referral to a tertiary center by his primary care, but I think it is worth exploring. He is still in intravenous fluids and he is receiving insulin by his insulin pump 12/26: Patient is still feeling very nauseated this morning unable to keep things down had some low blood sugars insulin pump is being adjusted and monitored per pharmacy and dietary. Patient asked that hit analgesia be escalated which we did and we will add a very slow infusion of D5 normal saline at 50 cc an hour continue to try to advance diet 12/27: Having nibbles of his diet today no vomiting so far basal rate of his insulin pump have been adjusted by dietary and diabetic teaching Review of systems: No palpitations or shortness a breath No loss of consciousness confusion No paresis Physical exam: Chronically ill-appearing young male HEENT unremarkable except patient is edentulous No labored respirations Abdomen nondistended Extremities no edema No neurologic findings Assessment and plan: 1. Intractable nausea and vomiting in the setting of known diabetic gastroparesis * Previously Unable to maintain adequate carbohydrate orally, but seems to be doing better today * we will discontinue today D5 normal saline * He reports he typically has flares anywhere from once a month to once every few months. His last episode was 2 months ago. * scheduled Reglan, and continue bowel rest. * He has not used marijuana in the last 3 months. * He notes he has been having symptoms over the last week and a half or so since he was last admitted here. 2. Type 1 diabetes * He reports his basal rate on his insulin pump is 0.91 units/hour. * Dietary progress note today: * Follow-up today for review of new settings in pump 12a-10a with pump download. Prior to admission was having lows between 12a-10a. D5 infusion paused 20:30 12/26. Current insulin settings for 12a-10a seem appropriate without any lows or elevations. Pt endorsed eating a sandwich in the mid morning time. No significant elevations. May benefit from continued reduced insulin settings for morning time and/or setting sleep setting, which we have reviewed. Has not set up remote pump upload elia. Will work on this in OP. 3. SHAN * On admission creatinine was 1.47. * Repeat today 4. Hypothyroidism * Continue thyroid replacement. 5. Depression/anxiety * He is on fluoxetine at baseline. As he was placed on scheduled Reglan this has been held for now. Given the long half-life of fluoxetine, he should not have any significant symptoms related to it being held Code status * Full Prophylaxis * SCDs in place. Disposition * Inpatient * Home once his symptoms have improved and he can tolerate oral intake anticipate this will happen tomorrow Time-Based Coding 35 minutes spent with patient and on the chart (including review of chart, obtaining history, exam, reviewing outside data, placing orders, documenting exam and treatment plan, and counseling patient) Exam Vital Signs (past 8 hours): - 12/27/24 04:47 11/19/25 08:00 12/27/24 08:55 Temperature 96.5 F L 97.1 F L Pulse Rate 16 L 68 68 Respiratory Rate 16 16 Blood Pressure 111/78 124/89 124/89 Pulse Oximetry 96 99 Oxygen Flow Rate 0 Oxygen Delivery Method Room Air Oxygen Flow Rate 0 Objective Labs 12/25/24 18:35 12/25/24 18:35 Labs: Laboratory Results - last 24 hr 12/26/24 12/26/24 12/26/24 04:12 16:02 21:10 Sodium Cancelled Potassium Cancelled Chloride Cancelled Carbon Dioxide Cancelled BUN Cancelled Creatinine Cancelled Estimated GFR Cancelled BUN/Creatinine Ratio Cancelled Glucose Cancelled POC Whole Bld Glucose 171 H 132 H Calcium Cancelled Magnesium Cancelled Total Bilirubin Cancelled AST Cancelled ALT Cancelled Alkaline Phosphatase Cancelled Total Protein Cancelled Albumin Cancelled Globulin Cancelled Albumin/Globulin Ratio Cancelled 12/27/24 12/27/24 12/27/24 03:08 07:51 11:39 Sodium Potassium Chloride Carbon Dioxide BUN Creatinine Estimated GFR BUN/Creatinine Ratio Glucose POC Whole Bld Glucose 106 H 132 H 207 H Calcium Magnesium Total Bilirubin AST ALT Alkaline Phosphatase Total Protein Albumin Globulin Albumin/Globulin Ratio [facility] Medical History (Updated 12/23/24 @ 21:45 by Juan Odell MD) Anemia in other chronic diseases classified elsewhere Erectile dysfunction Insomnia Anxiety Migraines Osteoporosis Cataracts, bilateral Partial blindness Gastric ulcer MDD (major depressive disorder), recurrent episode, moderate Chronic lower back pain Hypothyroidism Marijuana use History of MRSA infection History of pneumonia Blurry vision, bilateral Diabetic neuropathy Bipolar disorder with depression Nausea and vomiting Diabetes type 1, uncontrolled Diabetic gastroparesis Surgical History No pertinent past surgical history Family History Mother No known health problems Father No known health problems Social History household members: family alcohol intake: never Assessment & Plan Time-Based Coding :: [TOTAL MINUTES] spent with patient and on the chart (including review of chart, obtaining history, exam, reviewing outside data, placing orders, documenting exam and treatment plan, and counseling patient) on [DATE].
--- NOTE | 2024-12-27 13:59 | P.DS_ITS ---
History of Present Illness History of Present Illness Date Patient Seen: 12/27/24 Chief complaint: persistent vomiting x 3days Narrative: Chief complaint: Intractable nausea and vomiting with type 1 diabetes brittle gastroparesis History of present illness: 11/23: 34-year-old male with past medical history of insulin dependent diabetes with insulin pump, known history of gastroparesis, recurrent DKA, diabetic neuropathy, hypertension, hypothyroidism, anxiety, depression prior marijuana use presents with nausea, vomiting. Per the patient's report, over the last 3 days the patient has had increasing nausea and vomiting. The patient denies any diarrhea. The patient states that was difficult to hold much fluid down due to the severe nausea and vomiting. Patient states that his last use of marijuana was a few months ago. Otherwise today patient denies any fever, chills, chest pain, dysuria, coughing, shortness of breath or syncope. In the emergency room, the patient was hemodynamically stable. Labs shows a creatinine 1.47 but otherwise relatively benign. UA was negative for any UTI. The patient was given IV fluid and IV antiemetics. Due to ongoing nausea and vomiting ER physician requested admission to observation. Hospital course: 12/24: He states since that time he has had difficulty holding down food and liquids. He states he continues to have nausea but has not had any emesis in the last several hours. He did receive hydrocodone a bit earlier but states it has not been particularly effective at controlling his pain. He is asking for some IV pain medication. He last received hydromorphone at about 6 this morning he reports he is tolerating water reasonably well through the day. 12/25: We will initiate a trial of the advancing his diet today he is asked for GI cocktail as this seems to be the best he is still having a lot of pain and discomfort with swallowing any liquids at this time. Still having episodes of emesis. Patient Inquired about surgical approaches to gastroparesis. This would need referral to a tertiary center by his primary care, but I think it is worth exploring. He is still in intravenous fluids and he is receiving insulin by his insulin pump 12/26: Patient is still feeling very nauseated this morning unable to keep things down had some low blood sugars insulin pump is being adjusted and monitored per pharmacy and dietary. Patient asked that hit analgesia be escalated which we did and we will add a very slow infusion of D5 normal saline at 50 cc an hour continue to try to advance diet 12/27: Having nibbles of his diet today no vomiting so far basal rate of his insulin pump have been adjusted by dietary and diabetic teaching Review of systems: No palpitations or shortness a breath No loss of consciousness confusion No paresis Physical exam: Chronically ill-appearing young male HEENT unremarkable except patient is edentulous No labored respirations Abdomen nondistended Extremities no edema No neurologic findings Assessment and plan: 1. Intractable nausea and vomiting in the setting of known diabetic gastroparesis * Previously Unable to maintain adequate carbohydrate orally, but seems to be doing better today * we will discontinue today D5 normal saline * He reports he typically has flares anywhere from once a month to once every few months. His last episode was 2 months ago. * scheduled Reglan, and continue bowel rest. * He has not used marijuana in the last 3 months. * He notes he has been having symptoms over the last week and a half or so since he was last admitted here. 2. Type 1 diabetes * He reports his basal rate on his insulin pump is 0.91 units/hour. * Dietary progress note today: * Follow-up today for review of new settings in pump 12a-10a with pump download. Prior to admission was having lows between 12a-10a. D5 infusion paused 20:30 12/26. Current insulin settings for 12a-10a seem appropriate without any lows or elevations. Pt endorsed eating a sandwich in the mid morning time. No significant elevations. May benefit from continued reduced insulin settings for morning time and/or setting sleep setting, which we have reviewed. Has not set up remote pump upload elia. Will work on this in OP. 3. SHAN * On admission creatinine was 1.47. * Repeat today 4. Hypothyroidism * Continue thyroid replacement. 5. Depression/anxiety * He is on fluoxetine at baseline. As he was placed on scheduled Reglan this has been held for now. Given the long half-life of fluoxetine, he should not have any significant symptoms related to it being held Code status * Full Prophylaxis * SCDs in place. Disposition * Inpatient * Home Time-Based Coding 35 minutes spent with patient and on the chart (including review of chart, obtaining history, exam, reviewing outside data, placing orders, documenting exam and treatment plan, and counseling patient) Discharge Providers Provider Date of admission: 12/25/24 13:06 Discharge Date: 12/27/24 Primary care physician: James Jung DO Consults: 12/23/24 22:09 Consult to Dietitian, Adult Routine Comment: Reason For Exam: severe loss of appetite Discharge provider: Vinod Glasgow MD Exam Vital Signs (past 8 hours): - 12/27/24 08:00 12/27/24 08:55 Temperature 97.1 F L Pulse Rate 68 68 Respiratory Rate 16 Blood Pressure 124/89 124/89 Pulse Oximetry 99 Oxygen Flow Rate 0 Oxygen Delivery Method Room Air Oxygen Flow Rate 0 Objective Labs 12/25/24 18:35 12/25/24 18:35 Labs: Laboratory Results - last 24 hr 12/26/24 12/26/24 12/26/24 04:12 16:02 21:10 Sodium Cancelled Potassium Cancelled Chloride Cancelled Carbon Dioxide Cancelled BUN Cancelled Creatinine Cancelled Estimated GFR Cancelled BUN/Creatinine Ratio Cancelled Glucose Cancelled POC Whole Bld Glucose 171 H 132 H Calcium Cancelled Magnesium Cancelled Total Bilirubin Cancelled AST Cancelled ALT Cancelled Alkaline Phosphatase Cancelled Total Protein Cancelled Albumin Cancelled Globulin Cancelled Albumin/Globulin Ratio Cancelled 12/27/24 12/27/24 12/27/24 03:08 07:51 11:39 Sodium Potassium Chloride Carbon Dioxide BUN Creatinine Estimated GFR BUN/Creatinine Ratio Glucose POC Whole Bld Glucose 106 H 132 H 207 H Calcium Magnesium Total Bilirubin AST ALT Alkaline Phosphatase Total Protein Albumin Globulin Albumin/Globulin Ratio [facility] Medical History (Updated 12/23/24 @ 21:45 by Juan Odell MD) Anemia in other chronic diseases classified elsewhere Erectile dysfunction Insomnia Anxiety Migraines Osteoporosis Cataracts, bilateral Partial blindness Gastric ulcer MDD (major depressive disorder), recurrent episode, moderate Chronic lower back pain Hypothyroidism Marijuana use History of MRSA infection History of pneumonia Blurry vision, bilateral Diabetic neuropathy Bipolar disorder with depression Nausea and vomiting Diabetes type 1, uncontrolled Diabetic gastroparesis Surgical History No pertinent past surgical history Family History Mother No known health problems Father No known health problems Social History household members: family alcohol intake: never Discharge Plan Discharge Plan Patient Disposition: Home Discharge orders & Medications Prescriptions: New sucralfate 100 mg/mL Suspension 1 gm PO QID Qty: 420 0RF metoclopramide HCl 5 mg Tablet 10 mg PO Q6H Qty: 120 3RF promethazine [Promethegan] 12.5 mg Suppository 12.5 mg NM Q6HR PRN (Reason: Nausea And Vomiting) Qty: 20 0RF lidocaine HCl 2 % jelly 1 applic topical BID MDD 15 mL PRN (Reason: nausea and vomiting) Qty: 30 3RF Rx Instructions: 2 tsp in 30 cc of Maalox for severe vomiting Continued (DME) Dexcom G6 Transmitter Device See Rx Instructions .Route Qty: 1 3RF Rx Instructions: continuously monitor blood sugars Humulin R Regular U-100 Insuln 100 unit/mL solution See Rx Instructions .ROUTE .COMPLEX Qty: 10 3RF Rx Instructions: 40 units via insulin pump max daily dose 45 units suvorexant 20 mg tablet 20 mg PO BEDTIME PRN (Reason: insomnia) Qty: 30 2RF sildenafil 100 mg tablet 100 mg PO DAILY PRN (Reason: sexual activity) Qty: 10 2RF fluoxetine 40 mg capsule 40 mg PO QAM Qty: 30 2RF (DME) Dexcom G6 Sensor Device See Rx Instructions .ROUTE .COMPLEX Qty: 3 8RF Dose Instruction: use to continuously monitor blood sugars, CHANGE EVERY 10 DAYS Rx Instructions: use to continuously monitor blood sugars, CHANGE EVERY 10 DAYS hydroxyzine HCl 10 mg tablet 10 mg PO 3XD PRN (Reason: for anxiety) Qty: 84 0RF hydrocodone-acetaminophen 5-325 mg tablet 1 tab PO TID PRN (Reason: pain) Qty: 90 0RF metoprolol succinate 50 mg tablet extended release 24 hr 50 mg PO DAILY levothyroxine 50 mcg tablet 50 mcg PO DAILY Qty: 90 1RF (DME) Extended [place] 3 mL Misc MISCELLANEOUS Rx Instructions: patient uses insulin pump (DME) True Metrix Glucose Test Strip Strip MISCELLANEOUS 4XD (DME) lancets [TRUEplus Lancets] 30 gauge misc MISCELLANEOUS 4XD (DME) blood-glucose meter [True Metrix Glucose Meter] Misc MISCELLANEOUS (DME) Dexcom G6 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 Misc MISCELLANEOUS Patient Comments: [NO ORIGINAL SIG] prochlorperazine maleate [Compazine] 10 mg tablet 10 mg PO Q6H PRN (Reason: nausea and vomiting) Qty: 120 1RF sucralfate 100 mg/mL suspension 10 ml PO QID Qty: 420 1RF Rx Instructions: swish in mouth and swallow; use after food/drink pantoprazole [Protonix] 40 mg tablet,delayed release (DR/EC) 40 mg PO DAILY Qty: 30 1RF tadalafil 5 mg tablet 5 mg PO DAILY Qty: 90 2RF Follow up/Referrals: James Jung DO [Primary Care Provider, Family Practice] Visit Report/Discharge Packet Stand Alone Forms: Patient Portal/API, Stroke Signs & Symptoms Discharge Data Primary Care Provider: James Jung
== END 2024-12-27 15:41 | disposition home or self-care (01) | DRG 48 ==
LOC: ED 18:09 → AC 21:31
PROVIDERS: Emergency Medicine; Family Medicine; Internal Medicine; Admitting Provider Internal Medicine; Emergency Provider Emergency Medicine; Family Provider Nurse Practitioner Family; PCP Family Medicine; Referring Provider Emergency Medicine; Visit Provider Internal Medicine
DX: E10.43 Type 1 diabetes mellitus with diabetic autonomic (poly)neuropathy (principal); N17.9 Acute kidney failure, unspecified; K31.84 Gastroparesis; E86.0 Dehydration; E03.9 Hypothyroidism, unspecified; F32.A Depression, unspecified; F41.9 Anxiety disorder, unspecified; G47.00 Insomnia, unspecified; I10 Essential (primary) hypertension; E10.40 Type 1 diabetes mellitus with diabetic neuropathy, unspecified; N52.9 Male erectile dysfunction, unspecified; Z79.890 Hormone replacement therapy; Z96.41 Presence of insulin pump (external) (internal)
CPT/HCPCS: 36415; 80048; 80053; 81001; 82805; 82962; 83690; 83735; 85025; 90471; 90656; 93005; 96361; 96374; 96375; 99284; G0378; J0780; J1171; J1200; J1630; J2060; J2405; J2765; J7030; J7042; Q2038

== ENCOUNTER → 2024-12-29 12:43 | Outpatient (CLI) | payer OTHER, SELFPAY ==
[2024-12-23 21:43] VITALS: BMI 22.9
--- NOTE | 2025-01-18 15:01 | DIAB.MNT ---
Initial Diabetes Medical Nutrition Therapy Assessment Name: Valentin Noble Date: 12/29/24 Time: 1p Dx: Type I Diabetes Provider: Erich Valentin presents for initial DM visit. He is familiar to this RD/CDCES from inpatient care/admissions. Rx as a child. Endorses FH of T1DM with paternal grandfather. Lives with his grandmother. Has PCP referrals per report for gastroparesis procedure potentially. States he worries that since he has not taken care of his DM for so many years as a younger person, that there may be damage to his body that is not reversible. Worries about poor health, hospitalizations, gastroparesis, dehydration, and vision issues custodial per report. States he sees an corrosion control specialist. 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 States this took a long time to heal from and have vision again. Wears a Tslim/Dexcom G6 system. Interested in trying a G7. Recent hospitalization for gastroparesis. Prior hospitalization for hypoglycemia. Gastroparesis impacts his diet choices. Often uses protein drinks. Antacids help minimally per report. Reduced intake recently due to significant nausea x 3-4 months. Diet Recall: 9am: water 2-3p: protein shake 6-7p: grandma usually cooks-- though lately not eating dinner water sf sports drinks Protein shakes snacking 1x per day. Not eating much, which is why his BG have been less labile. Anthropometrics: Ht: 5'10 Wt: 165# reported Weight history: Reports 165-180# as UBW Physical Activity: not discussed today Self-Monitoring Blood Glucose: Excessive time >250mg/dl. TIR: 20% very high 15% high 61% in range 2.8% low 0.6% very low avmg/dl std dev: 92mg/dl variance: 51% Date Pre Post Pre Post Pre Post HS Diabetes Medications: insulin via pump Pertinent Labs: hgA1c: Past Medical History: (Last Reviewed 01/03/25 @ 12:11 by James Jung DO) Anemia in other chronic diseases classified elsewhere Anxiety Bipolar disorder with depression Blurry vision, bilateral h/o of ocular injury Cataracts, bilateral Chronic lower back pain Diabetes type 1, uncontrolled Diabetic gastroparesis Diabetic neuropathy Erectile dysfunction Gastric ulcer History of MRSA infection History of pneumonia Hypothyroidism Insomnia Marijuana use MDD (major depressive disorder), recurrent episode, moderate Migraines Nausea and vomiting Osteoporosis Partial blindness Nutrition Rx: Carbohydrates: Meal:45g Snack:15-30g Nutrition Diagnosis: - Inadequate energy intake r/t symptoms associated with gastroparesis aeb pt report and diet recall - Altered GI function r/t hyperglycemia impacting gastroparesis diagnosis and symptoms aeb pt report of nausea and limited intake Intervention: This participant was very receptive. Provided appropriate educational handouts. Discussed the following topics: Completed intake assessment. Discussed barriers to care. Reviewed his goals for his DM care and motivators Discussed differences between G6 and G7 sensors Provided sample G7 Reviewed nutritious options for liquid diet Updated time/date discrepancies in his insulin pump Created SMART goals for patient self-care and success. Goals: Try skim milk for a meal replacement for more options Incorporate bone broth Try G7 prn, be sure to connect to pump Follow-up: CRISTINA MACK follow-up in 3-4 weeks Maye Tamez RDN, [place] Certified Diabetes Care and Bobbin Painter P: [phone] Thank you for this referral
== END ==
LOC: DIET 12:43
PROVIDERS: Family Provider Nurse Practitioner Family; PCP Family Medicine; Referring Provider Family Medicine
DX: E10.9 Type 1 diabetes mellitus without complications (principal); Z96.41 Presence of insulin pump (external) (internal); Z71.3 Dietary counseling and surveillance
CPT/HCPCS: 97802

== ENCOUNTER 2025-01-06 21:25 | Emergency (ER) | payer OTHER, SELFPAY ==
[2024-12-23 21:43] VITALS: BMI 22.9
--- NOTE | 2025-01-06 21:38 | ED_ITS ---
HPI - Nausea/Vomiting/Diarrhea General Chief complaint: Nausea/Vomiting/Diarrhea Stated complaint: Acid reflux causing vomiting Time Seen by Provider: 01/06/25 21:37 History of Present Illness HPI Narrative: 34-year-old male with a past medical history of insulin-dependent type 1 diabetes, gastroparesis, DKA, hypothyroidism, anxiety, depression, hypertension, comes into the ED from home for evaluation of nausea and vomiting, states this has been ongoing persistent for the past few days. States that he feels like his acid reflux has been flaring up and is causing him to have decreased p.o. intake secondary to these symptoms, states that he has had his blood sugars checked at home states it was in the 300s he denies any actual true abdominal pain, he states that it is more his nausea and vomiting that he can not again under control. Denies any other symptoms such as headache visual disturbance chest pain shortness breath fever chills or any other GI/ symptoms at this time. Related Data Home Medications ?Medication ?Instructions ?Recorded ?Confirmed insulin pump syringe 3 mL 10/04/23 01/03/25 (Extended [place]) metoprolol succinate 50 mg 50 mg PO DAILY 10/22/23 tablet,extended release 24 hr blood sugar diagnostic (True 12/24/23 01/03/25 Metrix Glucose Test Strip) blood-glucose meter (True Metrix 12/24/23 01/03/25 Glucose Meter) lancets 30 gauge (TRUEplus Lancets) 12/24/23 01/03/25 blood-glucose,senior applications architect,cont 01/14/24 01/03/25 (Dexcom G6 Bridge/Structure Inspection Team Leader) ferrous sulfate 325 mg (65 mg 325 mg PO DAILY 01/03/25 01/03/25 iron) tablet (FeroSul) Previous Rx's ?Medication ?Instructions ?Recorded levothyroxine 50 mcg tablet 50 mcg PO DAILY #90 tabs 0 10/22/23 blood-glucose transmitter (Dexcom #1 ea 01/18/24 G6 Transmitter device) insulin regular human 100 unit/mL See Rx Instructions .Route 02/04/24 injection solution (Humulin R .COMPLEX #10 mL Regular U-100 Insulin) suvorexant 20 mg tablet 20 mg PO BEDTIME PRN insomni a #30 07/12/24 tabs sildenafil 100 mg tablet 100 mg PO DAILY PRN sexual 0 08/24/24 activity #10 tabs tadalafil 5 mg tablet 5 mg PO DAILY #90 tabs 08/28 fluoxetine 40 mg capsule 40 mg PO QAM #30 caps pantoprazole 40 mg tablet,delayed 40 mg PO DAILY #30 t abs 10/19/24 release (Protonix) prochlorperazine maleate 10 mg 10 mg PO Q6H PRN nausea and 10/19/24 tablet (Compazine) vomiting #120 tabs sucralfate 100 mg/mL oral 10 ml PO QID #420 mL 5 suspension blood-glucose sensor (Dexcom G6 #3 ea 12/08/24 Sensor device) hydroxyzine HCl 10 mg tablet 10 mg PO 3XD PRN for anxi ety #84 12/08/24 tabs hydrocodone 5 mg-acetaminophen 325 1 tab PO TID PRN pa in #90 tabs 12/09/24 mg tablet lidocaine HCl 2 % mucosal jelly 1 applic topical BID P RN nausea 12/27/24 and vomiting #30 mL metoclopramide HCl 5 mg tablet 10 mg (2 x 5 mg) PO Q6H #120 tabs 12/27/24 promethazine 12.5 mg rectal 12.5 mg [place] Q6HR PRN Nausea And 12/27/24 suppository (Promethegan) Vomiting #20 ea sucralfate 100 mg/mL oral 1 gm PO QID #420 mL 12/27/24 suspension blood-glucose sensor (Dexcom G7 #3 ea 01/02/25 Sensor device) blood-glucose,senior applications architect,cont #1 ea 01/02/25 (Dexcom G7 Bridge/Structure Inspection Team Leader) promethazine 25 mg rectal 25 mg [place] Q6H PRN nausea and 01/06/25 suppository vomiting 3 days #12 ea Allergies Allergy/AdvReac Type Severity Reaction Status Date / Time aspirin (ASPIRIN) Allergy Unknown MAKES ME Verified 01/03/25 10:58 GO DEAF hydrocodone (HYDROCODONE) AdvReac Intermediate VOMITING Verified 01/03/25 10:58 ibuprofen (IBUPROFEN) AdvReac Intermediate HURTS Verified 01/03/25 10:58 KIDNEYS Review of Systems Review of Systems Narrative: General: Denies fever, chills, weight loss HEENT: Denies headache, eye drainage, eye irritation, head trauma, sore throat, voice change Cardiovascular: Denies any chest pain, palpitations, tachycardia Respiratory: Denies any shortness of breath, cough, wheeze, stridor GI/: Positive vomiting, nausea Denies any abdominal pain, diarrhea, bright red blood per rectum, melanotic stools, urinary frequency, urinary retention, dysuria, hematuria MSK: Denies any joint pain, muscle pains, swelling Skin: Denies any rashes, lesions, discoloration Neuro: Denies any headache, lightheadedness, dizziness, fainting, weakness Psych: Denies SI/HI Patient History Medical History Anemia in other chronic diseases classified elsewhere Erectile dysfunction Insomnia Anxiety Migraines Osteoporosis Cataracts, bilateral Partial blindness Gastric ulcer MDD (major depressive disorder), recurrent episode, moderate Chronic lower back pain Hypothyroidism Marijuana use History of MRSA infection History of pneumonia Blurry vision, bilateral Diabetic neuropathy Bipolar disorder with depression Nausea and vomiting Diabetes type 1, uncontrolled Diabetic gastroparesis Surgical History No pertinent past surgical history Family History Mother No known health problems Father No known health problems Social History household members: family alcohol intake: never alcohol intake frequency: holidays/special occasions only Alcohol type: hard liquor Exam Narrative Exam Narrative: General: Cooperative, well-developed, not in acute distress HEENT: Normocephalic, atraumatic, PERRLA, normal sclera, eyelids normal Neck: Active full range of motion, atraumatic Chest: Normal to inspection, negative crepitus, no overlying erythema ecchymosis Respiratory: Normal respiratory effort, not in acute respiratory distress, clear to auscultation bilaterally negative cough, wheeze, tachypnea, rhonchi, rales Cardiology: Regular rate rhythm negative gallop, murmur, rubs GI/: Patient dry heaving on exam No tenderness to palpation, soft, non rigid, normal to inspection, exam deferred MSK: Full active range of motion in all 4 extremities, atraumatic, no tenderness to palpation of any bony prominences Skin: No rashes or lesions noted Neuro: Alert awake oriented x3, moves all 4 extremities spontaneously, cranial nerves intact, able to answer all questions appropriately follows commands appropriately Psych: Cooperative, negative suicidal or homicidal ideations Initial Vital Signs Initial Vital Signs: Vital Signs Temperature 98.9 F 01/06/25 21:39 Pulse Rate 101 H 01/06/25 21:39 Respiratory Rate 18 01/06/25 21:39 Blood Pressure 134/84 01/06/25 21:39 Pulse Oximetry 99 01/06/25 21:39 Oxygen Delivery Method Room Air 01/06/25 21:39 Course Orders Ordered: ED Orders 01/06/25 21:40 EKG-12 Lead Stat 01/06/25 21:42 VBG [Venous Blood Gas] STAT 01/06/25 22:10 CBC Auto Diff [Complete Blood Count AUTO DIFF] Stat CMP [Comprehensive Metabolic Panel] Stat Ketones (Beta-Hydroxybutyrate) Stat Lipase Stat MAG [Magnesium] Stat 01/06/25 23:25 Venous Blood Gas Routine Discontinued Medications Famotidine (Famotidine 20 Mg/2 Ml Vial) 20 mg IV NOW ONE Stop: 01/06/25 21:40 Last Admin: 01/06/25 22:09 Dose: 20 mg Documented By: FRANCISCA Sodium Chloride (Normal Saline 0.9%) 1,000 mls @ 1,000 mls/hr IV BOLUS ONE Stop: 01/06/25 22:38 Last Infusion: 01/06/25 22:46 Dose: Infused Documented By: Admin: 01/06/25 22:09 Dose: 1,000 mls/hr Documented By: FRANCISCA Acetaminophen (Ofirmev) 1,000 mg in 100 mls @ 400 mls/hr IV NOW ONE Stop: 01/06/25 22:39 Last Infusion: 01/06/25 23:10 Dose: Infused Documented By: Admin: 01/06/25 22:41 Dose: 400 mls/hr Documented By: FRANCISCA Prochlorperazine (Prochlorperazine 10 Mg/2 Ml Vial) 10 mg IV NOW ONE Stop: 01/06/25 21:40 Last Admin: 01/06/25 22:09 Dose: 10 mg Documented By: FRANCISCA Vital Signs Vital signs: Vital Signs - 8 hr 01/06/25 21:39 01/06/25 22:13 01/06/25 22:14 Temperature 98.9 F Pulse Rate 101 H 96 H 98 H Respiratory Rate 18 23 Blood Pressure 134/84 Pulse Oximetry 99 100 100 Oxygen Delivery Method Room Air 01/06/25 22:14 01/06/25 22:30 01/06/25 23:00 Temperature Pulse Rate 96 H Respiratory Rate 12 Blood Pressure 132/86 119/69 Pulse Oximetry 94 Oxygen Delivery Method 01/06/25 23:00 01/06/25 23:30 Temperature Pulse Rate 87 84 Respiratory Rate 17 18 Blood Pressure Pulse Oximetry 92 95 Oxygen Delivery Method Room Air MDM - Nausea/Vomiting/Diarrhea Lab Data 01/06/25 22:10 01/06/25 22:10 Labs: Lab Results 01/06/25 01/06/25 Range/Units 22:10 23:25 WBC 7.4 (4.5-11.0) X10^3/uL RBC 5.10 (4.5-5.9) X10^6/uL Hgb 13.8 (13.5-17.5) g/dL Hct 40.4 L (41-53) % MCV 79.3 L (80-100) fL MCH 27.0 (26-34) PG MCHC 34.1 (30-36) % RDW 14.4 (11.6-14.8) % Plt Count 327 (150-400) X10^3/uL Neut % (Auto) 69.2 (50-75) % Lymph % (Auto) 21.7 L (25-40) % Alexander % (Auto) 8.0 (3-14) % Eos % (Auto) 0.4 L (2-4) % Baso % (Auto) 0.7 (0-2) % Neut # (Auto) 5100 (3277-7171) /uL Lymph # (Auto) 1600 (2131-5235) /uL Alexander # (Auto) 600 (0-900) /uL Eos # (Auto) 0 (0-450) /uL Baso # (Auto) 100 (0-100) /uL VBG pH 7.45 H (7.33-7.43) VBG pCO2 39.1 L (45-50) mmHg VBG pO2 36 (35-45) mmHg VBG HCO3 27 (24-28) mmol/L VBG Total CO2 26 (24-29) mmol/L VBG O2 Saturation 73 (70-75) % VBG Base Excess 3.2 (0-4) mmol/L FiO2 % 21.0 % % Sodium 133 L (137-145) mmol/L Potassium 4.3 (3.4-5.1) mmol/L Chloride 92 L (98-107) mmol/L Carbon Dioxide 27 (22-32) mmol/L BUN 25 H (9-20) mg/dL Creatinine 1.42 H (0.66-1.25) mg/dL Estimated GFR > 60 (>60) mL/min BUN/Creatinine Ratio 17.6 (6-22) Glucose 295 H (70-99) mg/dL Calcium 10.2 (8.4-10.2) mg/dL Magnesium 2.3 (1.6-2.3) mg/dL Total Bilirubin 0.7 (0.2-1.3) mg/dL AST 26 (17-59) IU/L ALT 21 (<50) IU/L Alkaline Phosphatase 152 H (38-126) U/L Total Protein 9.3 H (6.3-8.2) g/dL Albumin 5.2 H (3.5-5.0) g/dL Globulin 4.1 (1.7-4.1) g/dL Albumin/Globulin Ratio 1.3 (1.0-2.8) Lipase 48 (23-300) U/L Ketones 0.56 H (<0.27) mmol/L MDM Narrative Medical decision making narrative: efra, hypertension, comes into the ED from home for evaluation of nausea and vomiting, states this has been ongoing persistent for the past few days. States that he feels like his acid reflux has been flaring up and is causing him to have decreased p.o. intake secondary to these symptoms, states that he has had his blood sugars checked at home states it was in the 300s he denies any actual true abdominal pain, he states that it is more his nausea and vomiting that he can not again under control. Patient without any leukocytosis, lab work is not consistent with acute DKA, pH 7.45, patient without any severe electrolyte derangement, he did had improvement of symptoms after administration of medication here, patient will be discharged home with GI follow up in primary care outpatient follow up, verbalized understanding of this and agrees to being discharged home with outpatient follow up patient will be sent home with rectal promethazine to try to help with his symptoms Discharge Plan Departure Patient Disposition: Home Clinical Impression: Diabetic gastroparesis Instructions: DI for Nausea -- Adult, DI for Vomiting -- Adult Activity Restrictions/Additional Instructions: Please follow up with GI in outpatient setting Please read the discharge instructions sheet carefully and bring all papers to all doctor follow-up visits, as it may contain information that your doctor may want to see. Disease processes change and evolve, if your symptoms worsen or if you develop any new symptoms that are concerning to you please return for evaluation. Your evaluation today does not show any evidence of any life- threatening/serious illnesses requiring admission to the hospital or surgery. Please follow-up with your doctor for re-evaluation in approximately 1 day. Seek immediate medical attention for any worrisome symptoms. *If you do not have a primary care provider please contact the [facility] Resource line at [phone]. They will ask some questions about your medical history and help get you set up with a doctor in the community. Prescriptions: New promethazine 25 mg suppository 25 mg [place] Q6H PRN (Reason: nausea and vomiting) 3 Days Qty: 12 0RF No Action (DME) Dexcom G6 Transmitter Device See Rx Instructions .Route Qty: 1 3RF Rx Instructions: continuously monitor blood sugars Humulin R Regular U-100 Insuln 100 unit/mL solution See Rx Instructions .ROUTE .COMPLEX Qty: 10 3RF Rx Instructions: 40 units via insulin pump max daily dose 45 units suvorexant 20 mg tablet 20 mg PO BEDTIME PRN (Reason: insomnia) Qty: 30 2RF sildenafil 100 mg tablet 100 mg PO DAILY PRN (Reason: sexual activity) Qty: 10 2RF fluoxetine 40 mg capsule 40 mg PO QAM Qty: 30 2RF (DME) Dexcom G6 Sensor Device See Rx Instructions .ROUTE .COMPLEX Qty: 3 8RF Dose Instruction: use to continuously monitor blood sugars, CHANGE EVERY 10 DAYS Rx Instructions: use to continuously monitor blood sugars, CHANGE EVERY 10 DAYS hydroxyzine HCl 10 mg tablet 10 mg PO 3XD PRN (Reason: for anxiety) Qty: 84 0RF hydrocodone-acetaminophen 5-325 mg tablet 1 tab PO TID PRN (Reason: pain) Qty: 90 0RF (DME) Dexcom G7 Sensor Device See Rx Instructions .Route Qty: 3 3RF Rx Instructions: for continuous glucose monitoring. Change sensor every 10 days (DME) Dexcom G7 Bridge/Structure Inspection Team Leader Misc See Rx Instructions .Route Qty: 1 0RF Rx Instructions: For continuous glucose monitoring metoprolol succinate 50 mg tablet extended release 24 hr 50 mg PO DAILY levothyroxine 50 mcg tablet 50 mcg PO DAILY Qty: 90 1RF ferrous sulfate [FeroSul] 325 mg (65 mg iron) tablet 325 mg PO DAILY (DME) Extended [place] 3 mL Misc MISCELLANEOUS Rx Instructions: patient uses insulin pump sucralfate 100 mg/mL Suspension 1 gm PO QID Qty: 420 0RF metoclopramide HCl 5 mg Tablet 10 mg PO Q6H Qty: 120 3RF promethazine [Promethegan] 12.5 mg Suppository 12.5 mg [place] Q6HR PRN (Reason: Nausea And Vomiting) Qty: 20 0RF lidocaine HCl 2 % jelly 1 applic topical BID MDD 15 mL PRN (Reason: nausea and vomiting) Qty: 30 3RF Rx Instructions: 2 tsp in 30 cc of Maalox for severe vomiting (DME) True Metrix Glucose Test Strip Strip [facility] 4XD (DME) lancets [TRUEplus Lancets] 30 gauge [facility] [place]CELLANEOUS 4XD (DME) blood-glucose meter [True Metrix Glucose Meter] [facility] [place]IS[place]OUS (DME) Dexcom G6 Bridge/Structure Inspection Team Leader Misc MISCELLANEOUS Patient Comments: [NO ORIGINAL SIG] prochlorperazine maleate [Compazine] 10 mg tablet 10 mg PO Q6H PRN (Reason: nausea and vomiting) Qty: 120 1RF sucralfate 100 mg/mL suspension 10 ml PO QID Qty: 420 1RF Rx Instructions: swish in mouth and swallow; use after food/drink pantoprazole [Protonix] 40 mg tablet,delayed release (DR/EC) 40 mg PO DAILY Qty: 30 1RF tadalafil 5 mg tablet 5 mg PO DAILY Qty: 90 2RF Referrals: Alphonse Young MD [Non-Staff, Internal Medicine] James Jung DO [Primary Care Provider, Family Practice] Stand Alone Forms: Patient Portal/API
[2025-01-06 21:39] VITALS: BP 134/84; PULSE 101; RESP 18; TEMP 37.2; O2SAT 99; BMI 24.3
--- NOTE | 2025-01-06 21:40 | EKG_ITS ---
[address] [address] Test Date: 2025-01-06 Pat Name: Valentin Noble Department: [facility] Room: Gender: Male Security Assurance Analyst: ELIZABETH : 1990 Requested By: Order Number: [id number] Reading MD: Kiran Moore Measurements Intervals [place] Rate: 101 P: 51 HI: 152 QRS: -19 QRSD: 80 T: 48 QT: 358 QTc: 464 Interpretive Statements Sinus tachycardia Electronically Signed On 01-13-2025 7:22:59 PST by Kiran Moore
[2025-01-06] MEDS: SODIUM CHLORIDE 0.9% 1,000 ML 1000 ML IV (22:09)
[2025-01-06] MEDS: PROCHLORPERAZINE 10 MG/2 ML VIAL IV (22:09)
[2025-01-06] MEDS: FAMOTIDINE 20 MG/2 ML VIAL IV (22:09)
[2025-01-06 22:13] VITALS: PULSE 96; O2SAT 100
[2025-01-06 22:14] VITALS: BP 132/86; PULSE 98; RESP 23; O2SAT 100
[2025-01-06 22:24] LABS: Add Manual Diff / Slide Review NO; Hematocrit 40.4 % (41-53); Hemoglobin 13.8 g/dL (13.5-17.5); Lymphocytes Absolute Auto 1600 /uL (1100-4500); Mean Corpuscular HGB Conc 34.1 % (30-36); Mean Corpuscular Hemoglobin 27.0 PG (26-34); Mean Corpuscular Volume 79.3 fL (80-100); Platelet Count 327 X10^3/uL (150-400)
[2025-01-06 22:30] VITALS: PULSE 96; RESP 12; O2SAT 94
[2025-01-06 22:32] LABS: Alanine Aminotransferase 21 IU/L (<50); Albumin 5.2 g/dL (3.5-5.0); Albumin Globulin Ratio 1.3 (1.0-2.8); Alkaline Phosphatase 152 U/L (38-126); Blood Urea Nitrogen 25 mg/dL (9-20); Calcium 10.2 mg/dL (8.4-10.2); Carbon Dioxide 27 mmol/L (22-32); Chloride 92 mmol/L (98-107); Estimated Glomerular Filt Rate > 60 mL/min (>60); Globulin 4.1 g/dL (1.7-4.1); Glucose 295 mg/dL (70-99); HEMOLYSIS < 15 (0-50); Lipase 48 U/L (23-300); Magnesium 2.3 mg/dL (1.6-2.3); Potassium 4.3 mmol/L (3.4-5.1); Sodium 133 mmol/L (137-145); Total Protein 9.3 g/dL (6.3-8.2)
[2025-01-06] MEDS: ACETAMINOPHEN IV 1,000 MG/100 ML VIAL 400 MG IV (22:41)
[2025-01-06 22:58] LABS: Ketones (Beta-Hydroxybutyrate) 0.56 mmol/L (<0.27)
[2025-01-06 23:00] VITALS: BP 119/69; PULSE 87; RESP 17; O2SAT 92
[2025-01-06 23:28] LABS: Base Excess VBG 3.2 mmol/L (0-4); HCO3 VBG 27 mmol/L (24-28); Oxygen Saturation VBG 73 % (70-75); PCO2 VBG 39.1 mmHg (45-50); PO2 VBG 36 mmHg (35-45); Total CO2 VBG 26 mmol/L (24-29); pH VBG 7.45 (7.33-7.43)
[2025-01-06 23:30] VITALS: PULSE 84; RESP 18; O2SAT 95
[2025-01-07] VITALS: PULSE 80; RESP 20; O2SAT 95
[2025-01-07 00:15] VITALS: BP 119/70
== END 2025-01-07 00:15 | disposition home or self-care (01) ==
PROVIDERS: Emergency Provider Student in an Organized Health Care Education/Training Program; Family Provider Nurse Practitioner Family; PCP Family Medicine
DX: E10.43 Type 1 diabetes mellitus with diabetic autonomic (poly)neuropathy (principal); K31.84 Gastroparesis
CPT/HCPCS: 36415; 80053; 82009; 82805; 83690; 83735; 85025; 93005; 96361; 96365; 96375; 99284; J0131; J0780; J2060; J7030